=== PATIENT | female | born 1935 | race Caucasian/White ===

== ENCOUNTER 2016-07-02 12:12 | Emergency (ER) | payer OTHER ==
[2016-07-02 13:11] VITALS: BMI 32.1
--- NOTE | 2016-07-02 14:20 | PDOC ---
History of Present Illness - General History Source: Patient Exam Limitations: No Limitations - History of Present Illness Initial Comments: 07/02/16 15:58 The patient is an 80 year old female with history of hypertension, diabetes, atrial fibrillation on Coumadin, CHF, COPD, osteoarthritis s/p right total hip replacement s/p revision 02/03/16 and s/p right total knee replacement 02/03/16 who presents to the ED complaining of nosebleed at 11 am this morning. She notes that the bleed resolved on its own. She states that she stopped her Coumadin for 3 days advised by her doctor before her thyroid test today 06/29/2016. The patient denies fever or chills. She denies nausea, vomiting, or diarrhea. PCP: Dr Ravi Orthopedic Surgeon: Dr. Vieira <Priscila Palmer - Last Filed: 07/02/16 18:50> <Farooq Silver - Last Filed: 07/02/16 19:02> - General Chief Complaint: Lightheaded Stated Complaint: NOSE BLEED Time Seen by Provider: 07/02/16 14:19 Past History <Priscila Palmer - Last Filed: 07/02/16 18:50> - Past Medical History Anemia: Yes Asthma: Yes Cancer: Yes (SKIN / FOREHEAD 2010) Cardiac Disorders: Yes CVA: No COPD: Yes CHF: Yes Dementia: No Diabetes: Yes GI Disorders: No Disorders: No HTN: Yes Hypercholesterolemia: No Liver Disease: No Suicide Attempt (Hx): No Seizures: No Thyroid Disease: No - Surgical History Abdominal Surgery: No Appendectomy: No Cardiac Surgery: No Cholecystectomy: No Lung Surgery: No Neurologic Surgery: No Orthopedic Surgery: Yes ((R) HIP REPLACEMENT 2007) - Immunization History Immunization Up to Date: Yes - Psycho/Social/Smoking Cessation Hx Anxiety: No Suicidal Ideation: No Smoking Status: No Smoking History: Never smoked Have you smoked in the past 12 months: No Number of Cigarettes Smoked Daily: 0 Hx Alcohol Use: Yes (OCCASIONALLY) Drug/Substance Use Hx: No Substance Use Type: None Hx Substance Use Treatment: No <Farooq Silver - Last Filed: 07/02/16 19:02> - Past Medical History Allergies/Adverse Reactions: Allergies Allergy/AdvReac Type Severity Reaction Status Date / Time ciprofloxacin [From Cipro] Allergy Verified 07/02/16 13:11 ciprofloxacin HCl Allergy Verified 07/02/16 13:11 [From Cipro] Home Medications: Ambulatory Orders Acetaminophen [Tylenol] 1,000 mg PO PRN PRN 07/02/16 Amlodipine Besylate [Norvasc -] 5 mg PO DAILY 07/02/16 Arformoterol Tartrate [Brovana] 15 mcg IH BID 07/02/16 Ergocalciferol (Vitamin D2) [Vitamin D2] 50,000 unit PO WEEKLY 07/02/16 Ferrous Sulfate 325 mg PO DAILY 07/02/16 Furosemide [Lasix] 80 mg PO DAILY 07/02/16 Insulin Glargine,Hum.rec.anlog [Lantus Solostar PEN (NF)] 14 units SQ HS Labetalol HCl [Normodyne -] 200 mg PO DAILY 07/02/16 Lisinopril [Prinivil] 20 mg PO DAILY 07/02/16 Omeprazole 40 mg PO DAILY 07/02/16 Potassium Chloride 20 meq PO DAILY 07/02/16 Repaglinide [Prandin] 1 mg PO DAILY 07/02/16 Sertraline HCl [Zoloft] 50 mg PO DAILY 07/02/16 Simvastatin [Zocor] 40 mg PO DAILY 07/02/16 Warfarin Sodium [Coumadin] 4 mg PO DAILY 07/02/16 Review of Systems - Review of Systems Able to Perform ROS?: Yes Comments:: 07/02/16 16:16 GENERAL/CONSTITUTIONAL: No fever or chills. No weakness. HEAD, EYES, EARS, NOSE AND THROAT: No change in vision. No ear pain or discharge. No sore throat. CARDIOVASCULAR: No chest pain or shortness of breath. RESPIRATORY: No cough, wheezing, or hemoptysis. GASTROINTESTINAL: No nausea, vomiting, diarrhea or constipation. GENITOURINARY: No dysuria, frequency, or change in urination. MUSCULOSKELETAL: No joint or muscle swelling or pain. No neck or back pain. SKIN: No rash NEUROLOGIC: No headache, vertigo, loss of consciousness, or change in strength/ sensation. ENDOCRINE: No increased thirst. No abnormal weight change. HEMATOLOGIC/LYMPHATIC: No anemia, easy bleeding, or history of blood clots. ALLERGIC/IMMUNOLOGIC: No hives or skin allergy. <Priscila Palmer - Last Filed: 07/02/16 18:50> *Physical Exam - Vital Signs Last Vital Signs Temp Pulse Resp BP Pulse Ox 98.1 F 62 20 140/61 96 07/02/16 13:07 07/02/16 13:07 07/02/16 13:07 07/02/16 13:07 07/02/16 13:39 - Physical Exam Comments: 07/02/16 16:17 GENERAL: Awake, alert, and fully oriented, in no acute distress HEAD: No signs of trauma EYES: PERRLA, EOMI, sclera anicteric, conjunctiva clear ENT: Auricles normal inspection, hearing grossly normal, nares patent, oropharynx clear without exudates. Moist mucosa NECK: Normal ROM, supple, no lymphadenopathy, JVD, or masses LUNGS: Breath sounds equal, clear to auscultation bilaterally. No wheezes, and no crackles HEART: Regular rate and rhythm, normal S1 and S2, no murmurs, rubs or gallops ABDOMEN: Soft, nontender, normoactive bowel sounds. No guarding, no rebound. No masses EXTREMITIES: Normal range of motion, no edema. No clubbing or cyanosis. No cords, erythema, or tenderness NEUROLOGICAL: Cranial nerves II through XII grossly intact. Normal speech, normal gait SKIN: Warm, Dry, normal turgor, no rashes or lesions noted. <Priscila Palmer - Last Filed: 07/02/16 18:50> - Vital Signs Last Vital Signs Temp Pulse Resp BP Pulse Ox 98.1 F 62 20 140/61 96 07/02/16 13:07 07/02/16 13:07 07/02/16 13:07 07/02/16 13:07 07/02/16 13:39 <Farooq Silver - Last Filed: 07/02/16 19:02> Heart Score/ECG Review #1 07/02/16 17:12 EKG was reviewed by Dr. Silver Impression: atrial fibrillation with slow ventricular response left anterior fascicular luz Septal infarct Vent. rate 59 bpm <Priscila Palmer - Last Filed: 07/02/16 18:50> ED Treatment Course - LABORATORY CBC & Chemistry Diagram: 07/02/16 16:19 07/02/16 16:19 - RADIOLOGY Radiology Studies Ordered: 07/02/16 18:50 EXAM#: TYPE/EXAM: RESULT: [id number] CT/HEAD CT WITHOUT CONTRAST HISTORY PROVIDED : Syncope TECHNIQUE: Sequential axial images were obtained from the base of the skull to the vertex. There is no evidence of acute intracranial hemorrhage, mass lesions or infarctions. There is a mild degree of diffuse cerebral atrophy with sulcal widening and ventricular dilatation. Hypodense changes are noted within the periventricular white matter consistent with chronic, small vessel ischemia. Since prior study of 09/01/2013, there has been no significant change. IMPRESSION: No evidence of acute intracranial pathology. <Priscila Palmer - Last Filed: 07/02/16 18:50> - LABORATORY CBC & Chemistry Diagram: 07/02/16 16:19 07/02/16 16:19 <Farooq Silver - Last Filed: 07/02/16 19:02> Medical Decision Making - Medical Decision Making 07/02/16 16:14 The patient is an 80 year old female with history of hypertension, diabetes, atrial fibrillation on Coumadin, CHF, COPD, osteoarthritis s/p right total hip replacement s/p revision 02/03/16 and s/p right total knee replacement 02/03/16 who presents to the ED complaining of nosebleed at 11 am this morning, she states that the nosebleed resolved on its own. She states that she stopped her Coumadin for 3 days advised by her doctor before her thyroid test today 2016. Will order CXR, head CT, and labs. Patient will be reassessed after the results are back. <Priscila Palmer - Last Filed: 07/02/16 18:50> *DC/Admit/Observation/Transfer - Attestations Scribe Attestion: 07/02/16 15:59 Documentation prepared by ANGELA Penaloza, acting as medical insurance clerk for Farooq Silver MD/. <Priscila Palmer - Last Filed: 07/02/16 18:50> - Discharge Dispostion Admit: No - Attestations Physician Attestion: 07/02/16 14:20 I, Dr. Farooq Silver, attest that this document has been prepared under my direction and personally reviewed by me in its entirety. I further attest, that it accurately reflects all work, treatment, procedures and medical decision -making performed by me. <Farooq Silver - Last Filed: 07/02/16 19:02> Diagnosis at time of Disposition: Epistaxis, Lightheadedness - Discharge Dispostion Disposition: HOME Condition at time of disposition: Good - Referrals Referrals: Arvind Ravi MD [Primary Care Provider] - - Patient Instructions Printed Discharge Instructions: DI for Nosebleed, Anemia Additional Instructions: Di- Luciary this happened to you today. See your doctor later this week. Eat well and stay hydrated. You do have anemia and you lost a little blood today. It was nice taking care of you. Return to us if any problems. Best- Dr. Farooq Silver
[2016-07-02 16:50] LABS: BASOPHIL 0.7 % (0-2.0); MCH 24.5 pg (25.7-33.7); MCHC 32.5 g/dl (32.0-36.0); MEAN CELL VOLUME 75.3 fl (80-96); MEAN PLT VOLUME 7.5 fl (7.5-11.1); NEUTROPHILS 65.9 % (42.8-82.8); PLATELET COUNT 348 K/MM3 (134-434); RDW 18.5 % (11.6-15.6); WHITE BLOOD COUNT 6.8 K/mm3 (4.0-10.0)
[2016-07-02 17:00] LABS: INR 1.63 (0.82-1.09); PROTHROMBIN TIME (PATIENT) 18.1 SEC (9.98-11.88)
[2016-07-02 17:06] VITALS: BP 143/50; PULSE 67; TEMP 98.4
[2016-07-02 17:23] LABS: ALBUMIN 3.5 g/dl (3.4-5.0); BILIRUBIN,TOTAL 0.4 mg/dL (0.2-1.0); CALCIUM 8.6 mg/dL (8.5-10.1); CREATININE 1.5 mg/dL (0.55-1.02); TOT PROT 6.8 g/dl (6.4-8.2)
--- NOTE | 2016-07-03 17:49 | EKG ---
Test Reason : Blood Pressure : / mmHG Vent. Rate : 059 BPM Atrial Rate : 064 BPM P-R Int : 000 ms QRS Dur : 100 ms QT Int : 450 ms P-R-T Axes : 000 -51 022 degrees QTc Int : 445 ms ATRIAL FIBRILLATION WITH SLOW VENTRICULAR RESPONSE LEFT ANTERIOR FASCICULAR BLOCK SEPTAL INFARCT , AGE UNDETERMINED ABNORMAL ECG WHEN COMPARED WITH ECG OF 20-MAR-2016 17:42, NO SIGNIFICANT CHANGE WAS FOUND Confirmed by PEPPER DE LA CRUZ, CLOVER ([id number]) on 07/03/2016 5:48:40 PM Referred By: Confirmed By:CLOVER PABON MD
== END 2016-07-02 20:11 | disposition home or self-care (01) ==
LOC: JER 12:12
DX: R04.0 Epistaxis (principal); I48.91 Unspecified atrial fibrillation; Z79.01 Long term (current) use of anticoagulants; E11.9 Type 2 diabetes mellitus without complications; Z79.4 Long term (current) use of insulin; I50.9 Heart failure, unspecified; I10 Essential (primary) hypertension; J45.909 Unspecified asthma, uncomplicated; D64.9 Anemia, unspecified; M19.90 Unspecified osteoarthritis, unspecified site; Z96.641 Presence of right artificial hip joint; Z96.651 Presence of right artificial knee joint
CPT/HCPCS: 36415; 70450-TC; 71010-TC; 80053; 85025; 85610; 93005; 93010; 99285-25

== ENCOUNTER 2016-10-29 12:27 | Emergency (ER) | payer OTHER ==
[2016-10-29 12:56] VITALS: BMI 30.9
[2016-10-29 13:24] VITALS: TEMP 97.8
--- NOTE | 2016-10-29 13:38 | PDOC ---
History of Present Illness - General History Source: Patient, Old Records Exam Limitations: No Limitations - History of Present Illness Initial Comments: 10/29/16 13:43 The patient is an 80-year-old woman, accompanied by friend, with a significant past medical history of anemia, skin Ca, hypertension, hypercholesterolemia, atrial fibrillation (on 4mg of Coumadin), asthma, congestive heart failure, chronic obstructive pulmonary disease and diabetes mellitus who presents to the emergency department via EMS for complaints of nasal bleeding. She reports that today, at approximately 06:00 AM, she woke up from her sleep and noted that she was bleeding from the left nare. Throughout the morning, she noted some clots but just applied pressure, until she stopped bleeding at approximately 10:00 AM. She reports that this has happened to her several times, including twice this past week. She currently reports feeling a slight band-like headache. She denies fever, chills, cough. She denies lightheadedness, neck pain, nausea, vomiting, diarrhea. Allergies: Ciprofloxacin Pats Surgical History: Right hip replacement. Social History: Never smoked. No EtOH and recreational drug use. Primary Care Physician: Dr. Arvind Pompa <Caitlyn Luna - Last Filed: 10/29/16 13:48> - General History Source: Patient, Old Records Exam Limitations: No Limitations <Kayla Stephens - Last Filed: 10/29/16 16:39> - General Chief Complaint: Nasal Bleeding Stated Complaint: Nasal Bleeding Time Seen by Provider: 10/29/16 13:14 Past History <Caitlyn Luna - Last Filed: 10/29/16 13:48> - Past Medical History Anemia: Yes Asthma: Yes Cancer: Yes (SKIN / FOREHEAD 2010) Cardiac Disorders: Yes CVA: No COPD: Yes CHF: Yes Dementia: No Diabetes: Yes GI Disorders: No Disorders: No HTN: Yes Hypercholesterolemia: No Liver Disease: No Suicide Attempt (Hx): No Seizures: No Thyroid Disease: No - Surgical History Abdominal Surgery: No Appendectomy: No Cardiac Surgery: No Cholecystectomy: No Lung Surgery: No Neurologic Surgery: No Orthopedic Surgery: Yes ((R) HIP REPLACEMENT 2007) - Immunization History Immunization Up to Date: Yes - Psycho/Social/Smoking Cessation Hx Anxiety: No Suicidal Ideation: No Smoking Status: No Smoking History: Never smoked Have you smoked in the past 12 months: No Number of Cigarettes Smoked Daily: 0 Information on smoking cessation initiated: No Hx Alcohol Use: No Drug/Substance Use Hx: No Substance Use Type: None Hx Substance Use Treatment: No <Kayla Stephens - Last Filed: 10/29/16 16:39> - Past Medical History Allergies/Adverse Reactions: Allergies Allergy/AdvReac Type Severity Reaction Status Date / Time ciprofloxacin [From Cipro] Allergy Verified 07/02/16 13:11 ciprofloxacin HCl Allergy Verified 07/02/16 13:11 [From Cipro] Home Medications: Ambulatory Orders Acetaminophen [Tylenol] 1,000 mg PO TID PRN 07/02/16 Amlodipine Besylate [Norvasc -] 5 mg PO DAILY 07/02/16 Arformoterol Tartrate [Brovana] 15 mcg IH BID 07/02/16 Ergocalciferol (Vitamin D2) [Vitamin D2] 50,000 unit PO WEEKLY 07/02/16 Ferrous Sulfate 325 mg PO DAILY 07/02/16 Furosemide [Lasix] 80 mg PO DAILY 07/02/16 Insulin Glargine,Hum.rec.anlog [Lantus Solostar PEN (NF)] 14 units SQ HS Labetalol HCl [Normodyne -] 200 mg PO DAILY 07/02/16 Lisinopril [Prinivil] 20 mg PO DAILY 07/02/16 Omeprazole 40 mg PO DAILY 07/02/16 Potassium Chloride 20 meq PO DAILY 07/02/16 Repaglinide [Prandin] 1 mg PO TID 07/02/16 Sertraline HCl [Zoloft] 50 mg PO DAILY 07/02/16 Simvastatin [Zocor] 40 mg PO DAILY 07/02/16 Warfarin Sodium [Coumadin] 4 mg PO DAILY 07/02/16 Review of Systems - Review of Systems Able to Perform ROS?: Yes Comments:: 10/29/16 13:43 GENERAL/CONSTITUTIONAL: No fever or chills. No weakness. HEAD, EYES, EARS, NOSE AND THROAT: Yes: Epistaxis of the left nare. No change in vision. No ear pain or discharge. No sore throat. CARDIOVASCULAR: No chest pain or shortness of breath. RESPIRATORY: No cough, wheezing, or hemoptysis. GASTROINTESTINAL: No nausea, vomiting, diarrhea or constipation. GENITOURINARY: No dysuria, frequency, or change in urination. MUSCULOSKELETAL: No joint or muscle swelling or pain. No neck or back pain. SKIN: No rash NEUROLOGIC: Yes: Headache. No vertigo, loss of consciousness, or change in strength/sensation. ENDOCRINE: No increased thirst. No abnormal weight change. HEMATOLOGIC/LYMPHATIC: No anemia, easy bleeding, or history of blood clots. ALLERGIC/IMMUNOLOGIC: No hives or skin allergy. <Caitlyn Luna - Last Filed: 10/29/16 13:48> *Physical Exam - Vital Signs Last Vital Signs Temp Pulse Resp BP Pulse Ox 97.8 F 57 L 16 192/74 96 10/29/16 13:15 10/29/16 13:15 10/29/16 13:15 10/29/16 13:15 10/29/16 13:15 - Physical Exam Comments: 10/29/16 13:43 GENERAL: Awake, alert, and fully oriented, in no acute distress HEAD: No signs of trauma EYES: PERRLA, EOMI, sclera anicteric, conjunctiva clear ENT: Auricles normal inspection, hearing grossly. There is scant blood but no active bleeding on the left nare. The mucosa appears friable. Posterior pharynx is clear. NECK: Normal ROM, supple, no lymphadenopathy, JVD, or masses LUNGS: Breath sounds equal, clear to auscultation bilaterally. No wheezes, and no crackles HEART: Regular rate and rhythm, normal S1 and S2, no murmurs, rubs or gallops ABDOMEN: Soft, nontender, normoactive bowel sounds. No guarding, no rebound. No masses EXTREMITIES: Normal range of motion, no edema. No clubbing or cyanosis. No cords, erythema, or tenderness NEUROLOGICAL: Cranial nerves II through XII grossly intact. Normal speech. <Caitlyn Luna - Last Filed: 10/29/16 13:48> - Vital Signs Last Vital Signs Temp Pulse Resp BP Pulse Ox 97.8 F 57 L 16 192/74 96 10/29/16 13:15 10/29/16 13:15 10/29/16 13:15 10/29/16 13:15 10/29/16 13:15 <Kayla Stephens - Last Filed: 10/29/16 16:39> ED Treatment Course - LABORATORY CBC & Chemistry Diagram: 10/29/16 14:00 10/29/16 14:00 <Kayla Stephens - Last Filed: 10/29/16 16:39> Medical Decision Making - Medical Decision Making 10/29/16 14:35 80-year-old female with history of diabetes, COPD, hypertension, anemia, hyperlipidemia, atrial fibrillation on Coumadin who presents the emergency department with bleeding from the right knee air between 6 AM this morning and 10 AM this morning. Differential diagnosis includes but is not limited to: Anterior epistaxis, trauma, dry nasal mucosa, anemia, supratherapeutic INR. Plan: 1. Labs 2. Apply pressure 3. Observe and reevaluate 10/29/16 16:38 Addendum: Labs are reviewed and are noted in the EMR. The INR is 1.5. The patient was observed in the ED and has no further epistaxis. The plan is to discharge the patient home. Follow-up with primary care physician this Saturday as she has a scheduled appointment. Return to the emergency department if symptoms persist, worsen, or new symptoms arise. <Kayla Stephens - Last Filed: 10/29/16 16:39> *DC/Admit/Observation/Transfer - Attestations Scribe Attestion: 10/29/16 13:43 Documentation prepared by Caitlyn Luna, acting as medical records supervisor for Kayla Stephens MD. <Caitlyn Luna - Last Filed: 10/29/16 13:48> - Discharge Dispostion Admit: No - Attestations Physician Attestion: 10/29/16 13:39 I, Dr. Kayla Stephens, attest that the scribes documentation that appears above has been prepared under my direction and personally reviewed by me in its entirety. I confirmed that the note above accurately reflects all work, treatment, procedures, and medical decision-making performed by me. <Kayla Stephens - Last Filed: 10/29/16 16:39> Diagnosis at time of Disposition: Epistaxis - Discharge Dispostion Disposition: HOME Condition at time of disposition: Stable - Referrals Referrals: Arvind Ravi MD [Primary Care Provider] - - Patient Instructions Printed Discharge Instructions: DI for Nosebleed Additional Instructions: Please keep your primary care appointment as scheduled for this Saturday. Return to the emergency department if your symptoms persist, worsen, or new symptoms arise.
[2016-10-29 14:58] LABS: BASOPHIL 0.6 % (0-2.0); MCH 27.2 pg (25.7-33.7); MCHC 32.6 g/dl (32.0-36.0); MEAN CELL VOLUME 83.6 fl (80-96); NEUTROPHILS 66.1 % (42.8-82.8); PLATELET COUNT 173 K/MM3 (134-434); RDW 16.7 % (11.6-15.6); WHITE BLOOD COUNT 5.7 K/mm3 (4.0-10.0)
[2016-10-29 15:32] LABS: CALCIUM 8.5 mg/dL (8.5-10.1); COCKROFT - GAULT 56.865; MAGNESIUM 2.1 mg/dL (1.8-2.4); PHOSPHOROUS 3.2 mg/dL (2.5-4.9)
[2016-10-29 16:06] LABS: INR 1.56 (0.82-1.09); PROTHROMBIN TIME (PATIENT) 17.3 SEC (9.98-11.88)
[2016-10-29 16:09] LABS: ACTIVATED PTT 32.4 SECONDS (26.9-34.4)
[2016-10-29 17:24] VITALS: BP 148/84; PULSE 68
--- NOTE | 2016-11-04 15:43 | EKG ---
Test Reason : Blood Pressure : / mmHG Vent. Rate : 048 BPM Atrial Rate : 340 BPM P-R Int : 000 ms QRS Dur : 096 ms QT Int : 444 ms P-R-T Axes : 000 -46 033 degrees QTc Int : 396 ms ATRIAL FIBRILLATION WITH SLOW VENTRICULAR RESPONSE LEFT ANTERIOR FASCICULAR BLOCK POOR R WAVE PROGRESSION ABNORMAL ECG WHEN COMPARED WITH ECG OF 02-JUL-2016 16:23, QT HAS SHORTENED CLINICAL CORRELATION IS RECOMMENDED Confirmed by ROSIE STOKES MD ([id number]) on 11/04/2016 3:43:20 PM Referred By: Confirmed By:ROSIE STOKES MD
== END 2016-10-29 17:22 | disposition home or self-care (01) ==
LOC: JER 12:27
DX: R04.0 Epistaxis (principal); I48.91 Unspecified atrial fibrillation; Z79.01 Long term (current) use of anticoagulants; I10 Essential (primary) hypertension; I50.9 Heart failure, unspecified; E11.9 Type 2 diabetes mellitus without complications; Z79.4 Long term (current) use of insulin; E78.00 Pure hypercholesterolemia, unspecified
CPT/HCPCS: 36415; 80048; 83735; 84100; 85025; 85610; 85730; 93005; 93010; 99283-25

== ENCOUNTER 2016-11-09 15:34 | Emergency (ER) | payer OTHER ==
[2016-11-09] MEDS ORDERED: OXYMETAZOLINE 0.05% NASAL SOLUTION 15 ML BOTTLE NS ONE (16:16)
[2016-11-09 16:37] VITALS: TEMP 98.6; BMI 35.9
--- NOTE | 2016-11-09 16:54 | PDOC ---
History of Present Illness - General History Source: Patient Exam Limitations: No Limitations - History of Present Illness Initial Comments: 11/09/16 17:09 The patient is a 80 year old female with a significant past medical history of anemia, skin CA, HTN, HLD, Afib (on coumadin), asthma, CHF, COPD, and diabetes who presents to the ED with complaints of nasal bleeding since earlier today. Patient was recently seen in the ED for similar symptoms on 10/29/16. She reports a left sided nasal bleed that started around 2:30 pm earlier today. She reports the blood goes into her mouth. Patient states that she frequently gets nose bleeds, including in the past 2-3 weeks. Patient recently visited her PMD 2 days ago and was prescribed Xarelto. Denies fevers or chills. Denies chest pain or shortness of breath. Denies abdominal pain, nausea, vomiting, and diarrhea. <Rachele Beasley - Last Filed: 11/09/16 17:09> - General History Source: Patient Exam Limitations: No Limitations <Dustin Singleton - Last Filed: 11/09/16 17:25> - General Chief Complaint: Nasal Bleeding Stated Complaint: NOSE BLEED Time Seen by Provider: 11/09/16 16:06 Past History <Rachele Beasley - Last Filed: 11/09/16 17:09> - Past Medical History Anemia: Yes Asthma: Yes Cancer: Yes (SKIN / FOREHEAD 2010) Cardiac Disorders: Yes CVA: No COPD: Yes CHF: Yes Dementia: No Diabetes: Yes GI Disorders: No Disorders: No HTN: Yes Hypercholesterolemia: No Liver Disease: No Suicide Attempt (Hx): No Seizures: No Thyroid Disease: No - Surgical History Abdominal Surgery: No Appendectomy: No Cardiac Surgery: No Cholecystectomy: No Lung Surgery: No Neurologic Surgery: No Orthopedic Surgery: Yes ((R) HIP REPLACEMENT 2007) - Immunization History Immunization Up to Date: Yes - Psycho/Social/Smoking Cessation Hx Anxiety: No Suicidal Ideation: No Smoking Status: No Smoking History: Never smoked Have you smoked in the past 12 months: No Number of Cigarettes Smoked Daily: 0 Information on smoking cessation initiated: No Hx Alcohol Use: Yes (OCCASIONALLY) Drug/Substance Use Hx: No Substance Use Type: None Hx Substance Use Treatment: No <Dustin Singleton - Last Filed: 11/09/16 17:25> - Past Medical History Allergies/Adverse Reactions: Allergies Allergy/AdvReac Type Severity Reaction Status Date / Time ciprofloxacin [From Cipro] Allergy Verified 11/09/16 15:57 ciprofloxacin HCl Allergy Verified 11/09/16 15:57 [From Cipro] Home Medications: Ambulatory Orders Acetaminophen [Tylenol] 1,000 mg PO TID PRN 07/02/16 Amlodipine Besylate [Norvasc -] 5 mg PO DAILY 07/02/16 Arformoterol Tartrate [Brovana] 15 mcg IH BID 07/02/16 Ergocalciferol (Vitamin D2) [Vitamin D2] 50,000 unit PO WEEKLY 07/02/16 Ferrous Sulfate 325 mg PO DAILY 07/02/16 Furosemide [Lasix] 80 mg PO DAILY 07/02/16 Insulin Glargine,Hum.rec.anlog [Lantus Solostar PEN (NF)] 14 units SQ HS Labetalol HCl [Normodyne -] 200 mg PO DAILY 07/02/16 Lisinopril [Prinivil] 20 mg PO DAILY 07/02/16 Omeprazole 40 mg PO DAILY 07/02/16 Potassium Chloride 20 meq PO DAILY 07/02/16 Repaglinide [Prandin] 1 mg PO TID 07/02/16 Sertraline HCl [Zoloft] 50 mg PO DAILY 07/02/16 Simvastatin [Zocor] 40 mg PO DAILY 07/02/16 Warfarin Sodium [Coumadin] 4 mg PO DAILY 07/02/16 Review of Systems - Review of Systems Able to Perform ROS?: Yes Comments:: 11/09/16 17:09 GENERAL/CONSTITUTIONAL: No fever or chills. No weakness. HEAD, EYES, EARS, NOSE AND THROAT: + nasal bleed. No change in vision. No ear pain or discharge. No sore throat. CARDIOVASCULAR: No chest pain or shortness of breath. RESPIRATORY: No cough, wheezing, or hemoptysis. GASTROINTESTINAL: No nausea, vomiting, diarrhea or constipation. GENITOURINARY: No dysuria, frequency, or change in urination. MUSCULOSKELETAL: No joint or muscle swelling or pain. No neck or back pain. SKIN: No rash NEUROLOGIC: No headache, vertigo, loss of consciousness, or change in strength/ sensation. ENDOCRINE: No increased thirst. No abnormal weight change. HEMATOLOGIC/LYMPHATIC: No anemia, easy bleeding, or history of blood clots. ALLERGIC/IMMUNOLOGIC: No hives or skin allergy. <Rachele Beasley - Last Filed: 11/09/16 17:09> *Physical Exam - Vital Signs Last Vital Signs Temp Pulse Resp BP Pulse Ox 98.6 F 70 20 190/72 98 11/09/16 15:54 11/09/16 15:54 11/09/16 15:54 11/09/16 15:54 11/09/16 15:54 - Physical Exam Comments: 11/09/16 17:09 GENERAL: Awake, alert, and fully oriented, in no acute distress HEAD: No signs of trauma EYES: PERRLA, EOMI, sclera anicteric, conjunctiva clear ENT:+ Brisk left nostril interior bleeding. Auricles normal inspection, hearing grossly normal, oropharynx clear without exudates. Moist mucosa NECK: Normal ROM, supple, no lymphadenopathy, JVD, or masses LUNGS: Breath sounds equal, clear to auscultation bilaterally. No wheezes, and no crackles HEART: Regular rate and rhythm, normal S1 and S2, no murmurs, rubs or gallops ABDOMEN: Soft, nontender, normoactive bowel sounds. No guarding, no rebound. No masses EXTREMITIES: Normal range of motion, no edema. No clubbing or cyanosis. No cords, erythema, or tenderness NEUROLOGICAL: Normal speech SKIN: Warm, Dry, normal turgor, no rashes or lesions noted. <Rachele Beasley - Last Filed: 11/09/16 17:09> - Vital Signs Last Vital Signs Temp Pulse Resp BP Pulse Ox 98.6 F 70 20 190/72 98 11/09/16 15:54 11/09/16 15:54 11/09/16 15:54 11/09/16 15:54 11/09/16 15:54 <Dustin Singleton - Last Filed: 11/09/16 17:25> ED Treatment Course - Medications Given in the ED: ED Medications Discontinued Medications Generic Name Dose Route Start Last Admin Trade Name Freq PRN Reason Stop Dose Admin Oxymetazoline HCl 1 spray 11/09/16 16:16 11/09/16 16:59 Afrin - NS 11/09/16 16:17 1 spr ONCE ONE Administration <Rachele Beasley - Last Filed: 11/09/16 17:09> Medical Decision Making - Medical Decision Making 11/09/16 17:01 A portion of this note was written by my scribe, under my supervision. Vital Signs Temp Pulse Resp BP Pulse Ox 98.6 F 70 20 190/72 98 11/09/16 15:54 11/09/16 15:54 11/09/16 15:54 11/09/16 15:54 11/09/16 15:54 80 year old female with past medical history of skin cancer, anemia, HTN, HLD, afib on xarelto (recently switched from coumadin), COPD, CHF, asthma presents with left nostril epistaxis. The patient denies any trauma to the face. Approximately 2:30 pm, started to have epistaxis of the left nostril. Could not control so came to the ED. States pt is on xarelto. Denies cp/sob/ lightheadedness/palpitations. Here in ED, afrin and nasal pressure was applied with successful cessation of epistaxis. Likely anterior epistaxis. Will observe patient and if bleeding controlled, will d/c home. 11/09/16 17:20 Pt has been observed for nearly an hour without bleeding. Will send patient home. Patient feels comfortable being discharged. Return precautions given including worsening bleed. Pt verbalizes understanding and agrees with plan. <Dustin Singleton - Last Filed: 11/09/16 17:25> *DC/Admit/Observation/Transfer - Attestations Scribe Attestion: 11/09/16 17:09 Documentation prepared by Rachele Beasley, acting as biomedical instrument technician for Dustin Singleton MD <Rachele Beasley - Last Filed: 11/09/16 17:09> - Discharge Dispostion Admit: No <Dustin Singleton - Last Filed: 11/09/16 17:25> Diagnosis at time of Disposition: Epistaxis - Discharge Dispostion Disposition: HOME Condition at time of disposition: Improved - Referrals Referrals: Juan Francisco Ferraro MD [Staff Physician] - - Patient Instructions Printed Discharge Instructions: DI for Nosebleed, Nosebleeds (Alternative Therapy) Additional Instructions: If you have a mild nose bleed, please use a small bit of afrin and pinch your nose. If you have profuse bleeding, it is very important that you return to the ER. Please continue to take your xarelto starting tomorrow. Follow up with your doctor.
[2016-11-09 19:04] VITALS: BP 160/89; PULSE 88
== END 2016-11-09 19:04 | disposition home or self-care (01) ==
LOC: JER 15:34
PROC: 0W3Q7ZZ Control Bleeding in Respiratory Tract, Via Natural or Artificial Opening (ICD-10-PCS; principal; 2016-11-09)
DX: R04.0 Epistaxis (principal); I48.91 Unspecified atrial fibrillation; Z79.01 Long term (current) use of anticoagulants; I10 Essential (primary) hypertension; E78.00 Pure hypercholesterolemia, unspecified; J45.909 Unspecified asthma, uncomplicated; J44.9 Chronic obstructive pulmonary disease, unspecified
CPT/HCPCS: 30901-25; 99282-25

== ENCOUNTER 2016-11-20 10:38 | Inpatient (IN) | payer OTHER ==
[2016-11-20 11:05] VITALS: BMI 35.8
[2016-11-20 11:48] LABS: BASOPHIL 0.4 % (0-2.0); EOSINOPHIL 0.1 % (0-4.5); MCH 27.3 pg (25.7-33.7); MCHC 32.5 g/dl (32.0-36.0); MEAN CELL VOLUME 83.8 fl (80-96); NEUTROPHILS 79.6 % (42.8-82.8); PLATELET COUNT 194 K/MM3 (134-434); RDW 15.9 % (11.6-15.6); WHITE BLOOD COUNT 9.3 K/mm3 (4.0-10.0)
[2016-11-20 12:06] LABS: ALBUMIN 3.3 g/dl (3.4-5.0); ANION GAP 12 (8-16); BILIRUBIN,TOTAL 0.7 mg/dL (0.2-1.0); CALCIUM 8.1 mg/dL (8.5-10.1); CO2 26 mmol/L (21-32); CREATININE 1.5 mg/dL (0.55-1.02); GLUCOSE,RANDOM 167 mg/dL (74-106); SGOT/AST 25 U/L (15-37); SGPT/ALT 26 U/L (12-78); TOT PROT 6.5 g/dl (6.4-8.2)
[2016-11-20 12:09] LABS: ALK PHOS 96 U/L (45-117); TROPONIN I 0.07 ng/ml (0.00-0.05)
--- NOTE | 2016-11-20 12:11 | PDOC ---
History of Present Illness - History of Present Illness Initial Comments: 11/20/16 12:20 Patient is an 80 year old female with significant medical hx of AFib, DM, HTN, CHF, COPD, osteoarthritis, asthma and GERD who is presenting to the ED with epistaxis from left nostril since 6 am today. She reports heavy bleeding and passing clots. The patient states shes had about six episodes of epistaxis over the past four weeks but has not experienced frequent nose bleeds prior to then. Patients nose bleed didnt stop until she arrived to the ED around 11 AM. She also complains of feeling lightheaded, weak, and diaphoretic. The patient notes she hasnt eaten today and feels that she needs to eat. Patient also complains of pain and burning with urination for the past week but denies any hematuria or discharge. The patient saw an ENT specialist yesterday and had her left nostril cauterized. Patient has been seen several times in the ED over the past month for epistaxis. She has been on 2mg of coumadin which has been stopped recently. Denies headache or LOC. 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/03/16), Right total knee replacement (02/03/16) <Gillian Mcneal - Last Filed: 11/20/16 12:20> - General History Source: Patient, Old Records Exam Limitations: No Limitations <Kayla Stephens - Last Filed: 11/20/16 14:20> - General Stated Complaint: NOSE BLEED Time Seen by Provider: 11/20/16 11:14 Past History <Gillian Mcneal - Last Filed: 11/20/16 12:20> - Past Medical History Anemia: Yes Asthma: Yes Cancer: Yes (SKIN / FOREHEAD 2010) Cardiac Disorders: Yes CVA: No COPD: Yes CHF: Yes Dementia: No Diabetes: Yes GI Disorders: No Disorders: No HTN: Yes Hypercholesterolemia: No Liver Disease: No Suicide Attempt (Hx): No Seizures: No Thyroid Disease: No - Surgical History Abdominal Surgery: No Appendectomy: No Cardiac Surgery: No Cholecystectomy: No Lung Surgery: No Neurologic Surgery: No Orthopedic Surgery: Yes ((R) HIP REPLACEMENT 2007) - Immunization History Immunization Up to Date: Yes - Psycho/Social/Smoking Cessation Hx Anxiety: No Suicidal Ideation: No Smoking Status: No Smoking History: Former smoker Have you smoked in the past 12 months: No Number of Cigarettes Smoked Daily: 0 If you are a former smoker, when did you quit?: "when I was very [place]" Information on smoking cessation initiated: No Hx Alcohol Use: No Drug/Substance Use Hx: No Substance Use Type: None Hx Substance Use Treatment: No <Kayla Stephens - Last Filed: 11/20/16 14:20> - Past Medical History Allergies/Adverse Reactions: Allergies Allergy/AdvReac Type Severity Reaction Status Date / Time ciprofloxacin [From Cipro] Allergy Verified 11/20/16 11:06 ciprofloxacin HCl Allergy Verified 11/20/16 11:06 [From Cipro] Home Medications: Ambulatory Orders Acetaminophen [Tylenol] 1,000 mg PO TID PRN 07/02/16 Amlodipine Besylate [Norvasc -] 5 mg PO DAILY 07/02/16 Arformoterol Tartrate [Brovana] 15 mcg IH BID 07/02/16 Ergocalciferol (Vitamin D2) [Vitamin D2] 50,000 unit PO WEEKLY 07/02/16 Ferrous Sulfate 325 mg PO DAILY 07/02/16 Furosemide [Lasix] 80 mg PO DAILY 07/02/16 Insulin Glargine,Hum.rec.anlog [Lantus Solostar PEN (NF)] 14 units SQ HS Labetalol HCl [Normodyne -] 200 mg PO DAILY 07/02/16 Lisinopril [Prinivil] 20 mg PO DAILY 07/02/16 Omeprazole 40 mg PO DAILY 07/02/16 Potassium Chloride 20 meq PO DAILY 07/02/16 Repaglinide [Prandin] 1 mg PO TID 07/02/16 Sertraline HCl [Zoloft] 50 mg PO DAILY 07/02/16 Simvastatin [Zocor] 40 mg PO DAILY 07/02/16 Review of Systems - Review of Systems Comments:: 11/20/16 12:21 GENERAL/CONSTITUTIONAL: Weakness, diaphoresis. No fever or chills. HEAD, EYES, EARS, NOSE AND THROAT: Epistaxis. No change in vision. No ear pain or discharge. No sore throat. CARDIOVASCULAR: Lightheadedness. No chest pain or shortness of breath. RESPIRATORY: No cough, wheezing, or hemoptysis. GASTROINTESTINAL: No nausea, vomiting, diarrhea or constipation. GENITOURINARY: Dysuria. No frequency, or change in urination. MUSCULOSKELETAL: No joint or muscle swelling or pain. No neck or back pain. ENDOCRINE: No increased thirst. No abnormal weight change. SKIN: No rash NEUROLOGIC: No headache, vertigo, loss of consciousness, or change in strength/ sensation. <Gillian Mcneal - Last Filed: 11/20/16 12:20> *Physical Exam - Vital Signs Last Vital Signs Temp Pulse Resp BP Pulse Ox 98.0 F 91 H 20 137/66 98 11/20/16 10:55 11/20/16 10:55 11/20/16 10:55 11/20/16 10:55 11/20/16 11:19 - Physical Exam Comments: 11/20/16 12:23 GENERAL: Awake, alert, and fully oriented, in no acute distress. Mildly diaphoretic. HEAD: No signs of trauma EYES: PERRLA, EOMI, sclera anicteric, conjunctiva clear ENT: Auricles normal inspection, hearing grossly normal. Fresh bleeding from left nare, could not identify bleeding site. Oropharynx clear without exudates. Moist mucosa NECK: Normal ROM, supple, no lymphadenopathy, JVD, or masses LUNGS: Breath sounds equal, clear to auscultation bilaterally. No wheezes, and no crackles HEART: Regular rate and rhythm, normal S1 and S2, no murmurs, rubs or gallops ABDOMEN: Soft, nontender, normoactive bowel sounds. No guarding, no rebound. No masses EXTREMITIES: +1 bipedal edema. Normal range of motion. No clubbing or cyanosis. No cords, erythema, or tenderness NEUROLOGICAL: Cranial nerves II through XII grossly intact. Normal speech, normal gait SKIN: Warm, Dry, normal turgor, no rashes or lesions noted. HEMATOLOGIC/LYMPHATIC: No anemia, easy bleeding, or history of blood clots. ALLERGIC/IMMUNOLOGIC: No hives or skin allergy. <Gillian Mcneal - Last Filed: 11/20/16 12:20> - Vital Signs Last Vital Signs Temp Pulse Resp BP Pulse Ox 98.0 F 91 H 20 137/66 98 11/20/16 10:55 11/20/16 10:55 11/20/16 10:55 11/20/16 10:55 11/20/16 11:19 <Kayla Stephens - Last Filed: 11/20/16 14:20> ED Treatment Course - LABORATORY CBC & Chemistry Diagram: 11/20/16 11:30 11/20/16 11:30 - ADDITIONAL ORDERS Additional order review: Laboratory Results 11/20/16 11:30 Sodium 137 Potassium 4.0 Chloride 99 Carbon Dioxide 26 Anion Gap 12 BUN 34 H Creatinine 1.5 H D Creat Clearance w eGFR 33.33 Random Glucose 167 H D Calcium 8.1 L Total Bilirubin 0.7 D AST 25 D ALT 26 D Alkaline Phosphatase 96 D Creatine Kinase 65 Troponin I 0.07 H Total Protein 6.5 Albumin 3.3 L 11/20/16 11:30 RBC 3.40 L MCV 83.8 MCHC 32.5 RDW 15.9 H MPV 9.0 Neutrophils % 79.6 D Lymphocytes % 7.0 L D Monocytes % 12.9 H Eosinophils % 0.1 D Basophils % 0.4 <Gillian Mcneal - Last Filed: 11/20/16 12:20> - LABORATORY CBC & Chemistry Diagram: 11/20/16 11:30 11/20/16 11:30 - ADDITIONAL ORDERS Additional order review: 11/20/16 11:30 RBC 3.40 L MCV 83.8 MCHC 32.5 RDW 15.9 H MPV 9.0 Neutrophils % 79.6 D Lymphocytes % 7.0 L D Monocytes % 12.9 H Eosinophils % 0.1 D Basophils % 0.4 <Kayla Stephens - Last Filed: 11/20/16 14:20> Medical Decision Making - Medical Decision Making 11/20/16 12:07 1-year-old female with history of hypertension, atrial fibrillationon anticoagulation, skin cancer and multiple episodes of epistaxis over the past month presents to the emergency Department with complaints of bleeding from her left naris since early this morning; she also complains of dysuria. Differential diagnosis includes but is not limited to: Anterior epistaxis, supratherapeutic INR, anemia, urinary tract infection, ACS, toxic/metabolic derangement. Plan: 1. Labs with coagulation profile 2. Urine analysis 3. EKGshows atrial fibrillation at a rate of 70 bpm with no acute ST segment changes 4. Chest x-ray 5. Anterior packing with rapid Rhino Rocket 6. Observe and reevaluate 11/20/16 14:19 Addendum: Labs were reviewed and are noted in the EMR. The urine shows 99 white blood cells and red blood cells as well as leukoesterase. The patient has been ordered a urine culture and ceftriaxone. Of note, her troponin is elevated and she has had intermittent episodes of chest pain over the past 2 weeks. Will admit to telemetry observation for serial cardiac markers, ceftriaxone, and gentle IV fluid hydration. The patient has had minimal bleeding from her left naris after the anterior packing. <Kayla Stephens - Last Filed: 11/20/16 14:20> *DC/Admit/Observation/Transfer - Attestations Scribe Attestion: 11/20/16 12:24 Documentation prepared by Gillian Mcneal, acting as medical secretary teacher for Kayla Stephens MD. <Gillian Mcneal - Last Filed: 11/20/16 12:20> - Discharge Dispostion Admit: Yes - Attestations Physician Attestion: 11/20/16 12:09 I, Dr. Kayla Stephens, attest that the scribes documentation that appears above has been prepared under my direction and personally reviewed by me in its entirety. I confirmed that the note above accurately reflects all work, treatment, procedures, and medical decision-making performed by me. <Kayla Stephens - Last Filed: 11/20/16 14:20> Diagnosis at time of Disposition: Epistaxis, Atrial fibrillation, Elevated troponin level - Discharge Dispostion Condition at time of disposition: Stable - Referrals Referrals: Arvind Ravi MD [Primary Care Provider] -
[2016-11-20 12:24] LABS: INR 2.55 (0.82-1.09); PROTHROMBIN TIME (PATIENT) 28.6 SEC (9.98-11.88)
[2016-11-20 13:29] LABS: URINE APPEARANCE SLCLOUDY; URINE BILIRUBIN NEGATIVE (NEGATIVE); URINE COLOR LTYELLOW; URINE GLUCOSE (UA) NEGATIVE (NEGATIVE); URINE KETONE NEGATIVE (NEGATIVE); URINE NITRITE NEGATIVE (NEGATIVE); URINE UROBILINOGEN NEGATIVE E.U./dl (0.2-1.0)
[2016-11-20 13:30] LABS: URINE BLOOD 3+ (NEGATIVE); URINE LEUK ESTERASE 3+ (NEGATIVE); URINE PROTEIN 1+ (NEGATIVE)
[2016-11-20 13:32] LABS: GRANULAR CASTS 2 /lpf; URINE MUCUS RARE; URINE RBC 22 /hpf (0-3); URINE WBC 99 /hpf (3-5)
--- NOTE | 2016-11-20 14:32 | HP ---
CHIEF COMPLAINT: "I feel weak and my nose wouldn't stop bleeding." PCP: Daisy HISTORY OF PRESENT ILLNESS: This is a 80yo woman with PMH CRF, CHF, COPD, anemia , afib on Xarelto, HTN and chronic anemia who presents today with recurrance of epistaxis. She states she started having nosebleeds starting 2 months ago. She was evaluated by her PMD who packed the nare. She had another episode approximately 2 weeks ago for which her PMD d/c'd Coumadin and started Xarelto. She had another episode 11/18 and was seen by ENT Ronan who cauterized the source of bleeding. She reports generalized weakness over 2 days. She denies dizziness, lightheadedness, SOB, rectal bleeding or hematemesis. Patient also with point tenderness to left 11th rib at the midclavicular line. ER course was notable for: (1) epistaxis requiring packing (2) pyuria (3) Chest pain with diaphoresis and troponin 0.07 Recent Travel: denies PAST MEDICAL HISTORY: see HPI PAST SURGICAL HISTORY: R hip ORIF Social History: Smoking: quit 50-60 years ago Alcohol: denies Drugs: denies Family History: Allergies ciprofloxacin [From Cipro] Allergy (Verified 11/20/16 11:06) ciprofloxacin HCl [From Cipro] Allergy (Verified 11/20/16 11:06) HOME MEDICATIONS: Home Medications 3 Medication Instructions Recorded Acetaminophen [Tylenol] 1,000 mg PO TID PRN 07/02/16 Amlodipine Besylate [Norvasc -] 5 mg PO DAILY 07/02/16 Arformoterol Tartrate [Brovana] 15 mcg IH BID 07/02/16 Ergocalciferol (Vitamin D2) 50,000 unit PO WEEKLY 07/02/16 [Vitamin D2] Ferrous Sulfate 325 mg PO DAILY 07/02/16 Furosemide [Lasix] 80 mg PO DAILY 07/02/16 Insulin Glargine,Hum.rec.anlog 14 units SQ HS 07/02/16 [Lantus Solostar PEN (NF)] Labetalol HCl [Normodyne -] 200 mg PO DAILY 07/02/16 Lisinopril [Prinivil] 20 mg PO DAILY 07/02/16 Omeprazole 40 mg PO DAILY 07/02/16 Potassium Chloride 20 meq PO DAILY 07/02/16 Repaglinide [Prandin] 1 mg PO TID 07/02/16 Sertraline HCl [Zoloft] 50 mg PO DAILY 07/02/16 Simvastatin [Zocor] 40 mg PO DAILY 07/02/16 REVIEW OF SYSTEMS CONSTITUTIONAL: Present- generalized weakness Absent: fever, chills, diaphoresis, malaise, loss of appetite, weight change HEENT: Present- Epistaxis Absent: rhinorrhea, nasal congestion, throat pain, throat swelling, difficulty swallowing, mouth swelling, ear pain, eye pain, visual changes CARDIOVASCULAR: Present- chest pain Absent: syncope, palpitations, irregular heart rate, lightheadedness, peripheral edema RESPIRATORY: Absent: cough, shortness of breath, dyspnea with exertion, orthopnea, wheezing, stridor, hemoptysis GASTROINTESTINAL: Absent: abdominal pain, abdominal distension, nausea, vomiting, diarrhea, constipation, melena, hematochezia GENITOURINARY: Present- dysuria, frequency Absent: urgency, hesitancy, hematuria, flank pain, genital pain MUSCULOSKELETAL: Absent: myalgia, arthralgia, joint swelling, back pain, neck pain SKIN: Absent: rash, itching, pallor HEMATOLOGIC/IMMUNOLOGIC: Present- easy bleeding Absent: easy bruising, lymphadenopathy, frequent infections ENDOCRINE: Absent: unexplained weight gain, unexplained weight loss, heat intolerance, cold intolerance NEUROLOGIC: Absent: headache, focal weakness or paresthesias, dizziness, unsteady gait, seizure, mental status changes, bladder or bowel incontinence PSYCHIATRIC: Absent: anxiety, depression, suicidal or homicidal ideation, hallucinations. PHYSICAL EXAMINATION Vital Signs - 24 hr 3 11/20/16 11/20/16 10:55 11:19 Temperature 98.0 F Pulse Rate 91 H Respiratory 20 Rate Blood Pressure 137/66 O2 Sat by Pulse 96 98 Oximetry (%) GENERAL: Awake, alert, and fully oriented, in no acute distress. HEAD: Normal with no signs of trauma. EYES: Pupils equal, round and reactive to light, extraocular movements intact, sclera anicteric, conjunctiva clear. No lid lag. EARS, NOSE, THROAT: Ears normal, nares patent, oropharynx clear without exudates. Moist mucous membranes. NECK: Normal range of motion, supple without lymphadenopathy, or masses. B/L JVD present. LUNGS: Breath sounds equal, clear to auscultation bilaterally. No wheezes, and no crackles. No accessory muscle use. HEART: Irregular rate and rhythm, normal S1 and S2 with 4/6 holosystolic murmur across precordium into left carotid, rub or gallop. ABDOMEN: Soft, nontender, not distended, normoactive bowel sounds, no guarding, no rebound, no masses. No hepatomegaly or splenomegaly. MUSCULOSKELETAL: Normal range of motion at all joints. No bony deformities. Point tenderness to left 11th rib at midclavicular line. No CVA tenderness. UPPER EXTREMITIES: 2+ pulses, warm, well-perfused. No cyanosis. No clubbing. No peripheral edema. LOWER EXTREMITIES: 2+ pulses, warm, well-perfused. No calf tenderness. No peripheral edema. Petichiae noted to BLE. NEUROLOGICAL: Cranial nerves II-XII intact. Normal speech. Normal gait. PSYCHIATRIC: Cooperative. Good eye contact. Appropriate mood and affect. SKIN: Warm, dry, normal turgor, no rashes or lesions noted, normal capillary refill. Petichiae noted to BLE. Laboratory Results - last 24 hr 3 11/20/16 11/20/16 11/20/16 11:30 11:30 11:30 WBC 9.3 D RBC 3.40 L Hgb 9.3 L Hct 28.5 L MCV 83.8 MCHC 32.5 RDW 15.9 H Plt Count 194 MPV 9.0 Neutrophils % 79.6 D Lymphocytes % 7.0 L D Monocytes % 12.9 H Eosinophils % 0.1 D Basophils % 0.4 INR 2.55 H D Sodium 137 Potassium 4.0 Chloride 99 Carbon Dioxide 26 Anion Gap 12 BUN 34 H Creatinine 1.5 H D Creat Clearance w eGFR 33.33 Random Glucose 167 H D Calcium 8.1 L Total Bilirubin 0.7 D AST 25 D ALT 26 D Alkaline Phosphatase 96 D Creatine Kinase 65 Troponin I 0.07 H Total Protein 6.5 Albumin 3.3 L Urine Color Urine Appearance Urine pH Urine Protein Urine Glucose (UA) Urine Ketones Urine Blood Urine Nitrite Urine Bilirubin Urine Urobilinogen Ur Leukocyte Esterase Urine RBC Urine WBC Ur Epithelial Cells Granular Casts Urine Mucus 3 11/20/16 13:15 WBC RBC Hgb Hct MCV MCHC RDW Plt Count MPV Neutrophils % Lymphocytes % Monocytes % Eosinophils % Basophils % INR Sodium Potassium Chloride Carbon Dioxide Anion Gap BUN Creatinine Creat Clearance w eGFR Random Glucose Calcium Total Bilirubin AST ALT Alkaline Phosphatase Creatine Kinase Troponin I Total Protein Albumin Urine Color Ltyellow Urine Appearance Slcloudy Urine pH 5.0 Urine Protein 1+ H Urine Glucose (UA) Negative Urine Ketones Negative Urine Blood 3+ H Urine Nitrite Negative Urine Bilirubin Negative Urine Urobilinogen Negative Ur Leukocyte Esterase 3+ H Urine RBC 22 Urine WBC 99 Ur Epithelial Cells Rare Granular Casts 2 Urine Mucus Rare ASSESSMENT/PLAN: A: 80yo woman with epistaxis on AC. ?taking NOAC with warfarin as she filled warfarin Rx 5 days ago but was stopped 2 weeks prior. Chest pain- will r/o MD. Also with UTI. P: 1. Chest pain ACS vs MS - trend troponins - Labetalol 200mg daily - AM Lipid - hold ASA 2/2 epistaxis - tele - Cards consult - Lipitor 40mg 2. Epistaxis - Rhino Rocket in place - monitor for bleeding - daily CBC - tranfuse hgb<7.0 - ENT if bleeding continues - daily INR - hold warfarin 3. afib - hold warfarin - hold Xarelto 2/2 bleeding - daily INR - tele 4. Anemia - trend CBC - tranfuse hgb<7.0 - FeSO4 supplements 5. UTI - urine cx pending - trend fever curve - Rocephin 1g daily - Tylenol prn 6. DM - hold prandin - FS qACHS - ISS - Levemir 14units 7. HTN - Lisinopril 20mg - Norvasc 5mg - Labetalol 200mg - trend Cr 8. CHF - BNP - Lasix 80mg daily - KDur - Lisinopril 20mg - strict I&O - daily weights 9. HLD - am Lipid panel - Zocor 40mg 10. COPD - well controlled - arfomoterol 11. F/E/N - diabetic Low sodium diet - KDur - replete prn 12. PPX - hold AC 2/2 bleeding - OOB - PT Dispo- pt requires observation of her acute medical condition Visit type - Emergency Visit Emergency Visit: Yes ED Registration Date: 11/20/16 Care time: The patient presented to the Emergency Department on the above date and was hospitalized for further evaluation of their emergent condition. - New Patient This patient is new to me today: Yes Date on this admission: 11/20/16 - Critical Care Critical Care patient: No
[2016-11-20] MEDS ORDERED: CEFTRIAXONE 1,000 MG in DEXTROSE 5%-WATER - 50 ML IVPB ONE (14:36)
[2016-11-20] MEDS ORDERED: CEFTRIAXONE 50 ML ONE (14:39)
[2016-11-20] MEDS ORDERED: ACETAMINOPHEN 325 MG TABLET (FP) PO ONE (15:08)
[2016-11-20] MEDS ORDERED: SODIUM CHLORIDE 1,000 ML IV STA (15:08)
[2016-11-20] MEDS ORDERED: FUROSEMIDE 40 MG TABLET (FP) PO ONE (15:14)
[2016-11-20] MEDS ORDERED: ACETAMINOPHEN 650 MG/20.3 ML ORAL SOLUTION (CUPS) ONE (15:16)
[2016-11-20] MEDS ORDERED: FUROSEMIDE 40 MG TABLET (FP) ONE (16:37)
--- NOTE | 2016-11-20 17:31 | CON.CARD ---
Consult Consult Specialty:: Cardiology Referred by:: Hospitalist (Patient of Dr. Ravi) Reason for Consultation:: Cardiac evaluation - History of Present Illness Chief Complaint: Epistaxis History of Present Illness: Patient is an 80 year old female well known to me with underlying history of CAD (non-obstructive), angina pectoris, diastolic LV dysfunction with history of congestive heart failure, mitral valve disease with mitral valve regurgitations, aortic valve disease with mild aortic valve stenosis, tricuspid valve disease with tricuspid valve regurgitation and pulmonary hypertension, persistent atrial fibrillation on Coumadin now changed to Xarelto 10 days ago by PMD, HTN/HCVD, type 2 diabetes mellitus, hypercholesterolemia and COPD who presents with epistaxis. Her nose was packed in the ER and now admitted to telemetry floor. She complains of mild chest discomfort. She denies palpitations. She denies fever or chills. She denies paroxysmal nocturnal dyspnea or orthopnea. She denies headache or lightheadedness. Cardiology consultation was called for further evaluation. - History Source History Provided By: Patient, Medical Record Limitations to Obtaining History: No Limitations - Past Medical History Cardio/Vascular: Yes: AFIB, Aortic Stenosis, CAD, CHF, HTN, Hyperlipdemia, Mitral Insufficiency, Murmur, Pulmonary Hypertension Pulmonary: Yes: COPD Endocrine: Yes: Diabetes Mellitus - Alcohol/Substance Use Hx Alcohol Use: No History of Substance Use: reports: None - Smoking History Smoking history: Former smoker Have you smoked in the past 12 months: No Aproximately how many cigarettes per day: 0 If you are a former smoker, when did you quit?: "when I was very [place]" Home Medications - Allergies Allergies/Adverse Reactions: Allergies Allergy/AdvReac Type Severity Reaction Status Date / Time ciprofloxacin [From Cipro] Allergy Verified 11/20/16 11:06 ciprofloxacin HCl Allergy Verified 11/20/16 11:06 [From Cipro] - Home Medications Home Medications: Ambulatory Orders Acetaminophen [Tylenol] 1,000 mg PO TID PRN 07/02/16 Amlodipine Besylate [Norvasc -] 5 mg PO DAILY 07/02/16 Arformoterol Tartrate [Brovana] 15 mcg IH BID 07/02/16 Ergocalciferol (Vitamin D2) [Vitamin D2] 50,000 unit PO WEEKLY 07/02/16 Ferrous Sulfate 325 mg PO DAILY 07/02/16 Furosemide [Lasix] 80 mg PO DAILY 07/02/16 Insulin Glargine,Hum.rec.anlog [Lantus Solostar PEN (NF)] 14 units SQ HS Labetalol HCl [Normodyne -] 200 mg PO DAILY 07/02/16 Lisinopril [Prinivil] 20 mg PO DAILY 07/02/16 Omeprazole 40 mg PO DAILY 07/02/16 Potassium Chloride 20 meq PO DAILY 07/02/16 Repaglinide [Prandin] 1 mg PO TID 07/02/16 Sertraline HCl [Zoloft] 50 mg PO DAILY 07/02/16 Simvastatin [Zocor] 40 mg PO DAILY 07/02/16 Rivaroxaban [Xarelto -] 15 mg PO DAILY 11/20/16 Review of Systems - Review of Systems Constitutional: denies: Chills, Fever HENT: reports: Epistaxis Cardiovascular: reports: Chest Pain. denies: Palpitations, Shortness of Breath Respiratory: denies: Cough, Hemoptysis, Orthopnea, PND, SOB, SOB on Exertion Gastrointestinal: denies: Abdominal Pain, Constipation, Diarrhea, Melena, Nausea , Rectal Bleeding, Vomiting Neurological: denies: Dizziness, Headache, Seizure, Syncope, Weakness Vital Signs: Vital Signs Temperature 99.5 F 11/20/16 15:54 Pulse Rate 82 11/20/16 15:54 Respiratory Rate 20 11/20/16 15:54 Blood Pressure 164/53 11/20/16 15:54 O2 Sat by Pulse Oximetry (%) 93 L 11/20/16 15:54 HENT: Yes: Epistaxis, Other (Nasal packing) Neck: Yes: Supple Respiratory: Yes: Diminished Gastrointestinal: Yes: Normal Bowel Sounds, Soft. No: Tenderness Cardiovascular: Yes: Pulse Irregular JVD: No Carotid Bruit: No PMI: Non-Displaced Heart Sounds: Yes: S1, S2 Murmur: Yes: Systolic Murmur, Grade 1 Edema: Yes Edema: LLE: Trace, RLE: Trace - Other Data Labs, Other Data: INR, PTT INR 2.55 (0.82-1.09) H D 11/20/16 11:30 Laboratory Results - last 24 hr 11/20/16 11/20/16 11/20/16 11:30 11:30 11:30 WBC 9.3 D RBC 3.40 L Hgb 9.3 L Hct 28.5 L MCV 83.8 MCHC 32.5 RDW 15.9 H Plt Count 194 MPV 9.0 Neutrophils % 79.6 D Lymphocytes % 7.0 L D Monocytes % 12.9 H Eosinophils % 0.1 D Basophils % 0.4 INR 2.55 H D Sodium 137 Potassium 4.0 Chloride 99 Carbon Dioxide 26 Anion Gap 12 BUN 34 H Creatinine 1.5 H D Creat Clearance w eGFR 33.33 POC Glucometer Random Glucose 167 H D Lactic Acid Calcium 8.1 L Total Bilirubin 0.7 D AST 25 D ALT 26 D Alkaline Phosphatase 96 D Creatine Kinase 65 Troponin I 0.07 H Total Protein 6.5 Albumin 3.3 L Urine Color Urine Appearance Urine pH Ur Specific [place] Urine Protein Urine Glucose (UA) Urine Ketones Urine Blood Urine Nitrite Urine Bilirubin Urine Urobilinogen Ur Leukocyte Esterase Urine RBC Urine WBC Ur Epithelial Cells Granular Casts Urine Mucus 11/20/16 11/20/16 11/20/16 13:15 15:30 17:32 WBC RBC Hgb Hct MCV MCHC RDW Plt Count MPV Neutrophils % Lymphocytes % Monocytes % Eosinophils % Basophils % INR Sodium Potassium Chloride Carbon Dioxide Anion Gap BUN Creatinine Creat Clearance w eGFR POC Glucometer Random Glucose Lactic Acid 1.1 Calcium Total Bilirubin AST ALT Alkaline Phosphatase Creatine Kinase Troponin I 0.06 H Total Protein Albumin Urine Color Ltyellow Urine Appearance Slcloudy Urine pH 5.0 Ur Specific [place] <= 1.005 Urine Protein 1+ H Urine Glucose (UA) Negative Urine Ketones Negative Urine Blood 3+ H Urine Nitrite Negative Urine Bilirubin Negative Urine Urobilinogen Negative Ur Leukocyte Esterase 3+ H Urine RBC 22 Urine WBC 99 Ur Epithelial Cells Rare Granular Casts 2 Urine Mucus Rare Atrial fibrillation Imaging - Results EKG: Report Reviewed Problem List - Problems (1) Atrial fibrillation Code(s): I48.91 - UNSPECIFIED ATRIAL FIBRILLATION Qualifiers: Atrial fibrillation type: persistent Qualified Code(s): I48.1 - Persistent atrial fibrillation (2) Elevated troponin Code(s): R74.8 - ABNORMAL LEVELS OF OTHER SERUM ENZYMES (3) Epistaxis Code(s): R04.0 - EPISTAXIS (4) COPD (chronic obstructive pulmonary disease) Code(s): J44.9 - CHRONIC OBSTRUCTIVE PULMONARY DISEASE, UNSPECIFIED Qualifiers : COPD type: unspecified COPD Qualified Code(s): J44.9 - Chronic obstructive pulmonary disease, unspecified (5) HTN (hypertension) Code(s): I10 - ESSENTIAL (PRIMARY) HYPERTENSION Qualifiers: Hypertension type: essential hypertension Qualified Code(s): I10 - Essential (primary) hypertension (6) Hypercholesterolemia Code(s): E78.00 - PURE HYPERCHOLESTEROLEMIA, UNSPECIFIED (7) Mitral valve regurgitation Code(s): I34.0 - NONRHEUMATIC MITRAL (VALVE) INSUFFICIENCY Qualifiers: Cardiac valve disease etiology: nonrheumatic Qualified Code(s): I34.0 - Nonrheumatic mitral (valve) insufficiency (8) Aortic valve stenosis Code(s): I35.0 - NONRHEUMATIC AORTIC (VALVE) STENOSIS Qualifiers: Cardiac valve disease etiology: nonrheumatic Qualified Code(s): I35.0 - Nonrheumatic aortic (valve) stenosis (9) Tricuspid valve regurgitation Code(s): I07.1 - RHEUMATIC TRICUSPID INSUFFICIENCY Qualifiers: Cardiac valve disease etiology: nonrheumatic Qualified Code(s): I36.1 - Nonrheumatic tricuspid (valve) insufficiency (10) Diastolic dysfunction Code(s): I51.9 - HEART DISEASE, UNSPECIFIED (11) Diabetes mellitus Code(s): E11.9 - TYPE 2 DIABETES MELLITUS WITHOUT COMPLICATIONS Qualifiers: Diabetes mellitus type: type 2 Diabetes mellitus complication status: without complication Diabetes mellitus skilled nursing insulin use: without skilled nursing use Qualified Code(s): E11.9 - Type 2 diabetes mellitus without complications Assessment/Plan 1. Epistaxis S/P nasal packing 2. COPD 3. Diastolic LV dysfunction 4. Non-obstructive CAD, angina pectoris - demand ischemia 5. Mitral valve regurgitation 6. Aortic valve stenosis 7. Tricuspid valve regurgitation 8. Pulmonary HTN 9. Persistent atrial fibrillation [id number] 10. HTN/HCVD 11. Type 2 diabetes mellitus 12. Hypercholesterolemia 13. CKD PLAN: 1. ENT evaluation 2. Continue Labetalol, Amlodipine and Prinivil 3. Continue Atorvastatin 4. Xarelto is being held. To decide when to start NOAC. 5. Continue diuretics Further plans are to follow Armen Stewart MD
[2016-11-20] MEDS ORDERED: amLODIPine BESYLATE 5 MG TABLET (FP) PO ONE (17:45)
[2016-11-20] MEDS: ATORVASTATIN CA 20 MG TABLET (FP) PO SCH (21:00)
[2016-11-20] MEDS: ACETAMINOPHEN 325 MG TABLET (FP) PO PRN (21:01)
[2016-11-20] MEDS: INSULIN SLIDING SCALE (NOVOLOG) 1 VIAL SQ SCH (21:03)
[2016-11-20] MEDS: INSULIN DETEMIR 100 UNITS/ML MDV SQ SCH (21:03)
[2016-11-20] MEDS ORDERED: INSULIN GLARGINE HUM REC ANLOG 14 UNIT SQ SCH (22:00)
[2016-11-21] MEDS: INSULIN SLIDING SCALE (NOVOLOG) 1 VIAL SQ SCH ×4 (06:10→21:13)
[2016-11-21 07:14] LABS: BASOPHIL 0.4 % (0-2.0); MCH 27.3 pg (25.7-33.7); MCHC 32.8 g/dl (32.0-36.0); MEAN CELL VOLUME 83.3 fl (80-96); MEAN PLT VOLUME 8.9 fl (7.5-11.1); PLATELET COUNT 168 K/MM3 (134-434); RDW 16.5 % (11.6-15.6); WHITE BLOOD COUNT 7.7 K/mm3 (4.0-10.0)
[2016-11-21 07:31] LABS: INR 1.86 (0.82-1.09); PROTHROMBIN TIME (PATIENT) 20.7 SEC (9.98-11.88)
[2016-11-21 07:48] LABS: ANION GAP 10 (8-16); CALCIUM 7.8 mg/dL (8.5-10.1); CO2 28 mmol/L (21-32); CREATININE 1.3 mg/dL (0.55-1.02); GLUCOSE,RANDOM 114 mg/dL (74-106)
[2016-11-21] MEDS: LABETALOL HCL 200 MG TABLET (FP) PO SCH (09:06)
[2016-11-21] MEDS: amLODIPine BESYLATE 5 MG TABLET (FP) PO SCH (09:06)
[2016-11-21] MEDS: LISINOPRIL 20 MG TABLET (FP) PO SCH (09:06)
[2016-11-21] MEDS: FERROUS SO4 325 MG TABLET (FP) PO SCH (09:07)
[2016-11-21] MEDS: PANTOPRAZOLE 40 MG TABLET (FP) PO SCH (09:07)
[2016-11-21] MEDS: POTASSIUM CHLORIDE TABS 20 MEQ TABLET.ER (FP) PO SCH (09:07)
[2016-11-21] MEDS: FUROSEMIDE 40 MG TABLET (FP) PO SCH (09:07)
[2016-11-21] MEDS: SERTRALINE HCL 50 MG TABLET (FP) PO SCH (09:07)
[2016-11-21] MEDS: cefTRIAXone 1 GM/50 ML BAG (PRE-DOCKED) IVPB SCH (09:08)
[2016-11-21] MEDS ORDERED: ACETAMINOPHEN 500 MG TABLET (FP) ONE ×2 (09:12→17:00)
[2016-11-21] MEDS: ACETAMINOPHEN 325 MG TABLET (FP) PO PRN ×3 (09:12→23:00)
[2016-11-21] MEDS ORDERED: PATIENT'S OWN MEDICATION (NON-FORMULARY) (Omeprazole 40 MG) PO SCH (10:00)
[2016-11-21] MEDS ORDERED: PATIENT'S OWN MEDICATION (NON-FORMULARY) (Simvastatin [Zocor] 40 MG) PO SCH (10:00)
--- NOTE | 2016-11-21 10:21 | PN ---
Progress Note, Physician History of Present Illness: Epistaxis resolved, left nare packing in place, Hgb stable. - Current Medication List Current Medications: Active Medications Acetaminophen (Tylenol -) 1,000 mg PO TID PRN PRN Reason: pain Last Admin: 11/21/16 09:12 Dose: 1,000 mg Amlodipine Besylate (Norvasc -) 5 mg PO DAILY [facility] Last Admin: 11/21/16 09:06 Dose: 5 mg Arformoterol Tartrate (Brovana (Restricted To Pulmonology/Resp) -) 1 amp NEB BID PK Atorvastatin Calcium (Lipitor -) 20 mg PO HS [facility] Last Admin: 11/20/16 21:00 Dose: 20 mg Ceftriaxone Sodium (Rocephin 1gm Ivpb (Pre-Docked)) 1 gm IVPB DAILY PK PRN Reason: Protocol Last Admin: 11/21/16 09:08 Dose: 1 gm Ergocalciferol (Drisdol -) 50,000 unit PO Tu@10 PK Ferrous Sulfate (Feosol -) 325 mg PO DAILY [facility] Last Admin: 11/21/16 09:07 Dose: 325 mg Furosemide (Lasix -) 80 mg PO DAILY [facility] Last Admin: 11/21/16 09:07 Dose: 80 mg Insulin Aspart (Novolog Vial Sliding Scale -) 1 vial SQ ACHS [facility] PRN Reason: Protocol Last Admin: 11/21/16 06:10 Dose: Not Given Insulin Detemir (Levemir Vial) 14 units SQ HS [facility] Last Admin: 11/20/16 21:03 Dose: 14 unit Labetalol HCl (Normodyne -) 200 mg PO DAILY [facility] Last Admin: 11/21/16 09:06 Dose: 200 mg Lisinopril (Prinivil) 20 mg PO DAILY [facility] Last Admin: 11/21/16 09:06 Dose: 20 mg Pantoprazole Sodium (Protonix -) 40 mg PO DAILY [facility] Last Admin: 11/21/16 09:07 Dose: 40 mg Potassium Chloride (K-Dur -) 20 meq PO DAILY [facility] Last Admin: 11/21/16 09:07 Dose: 20 meq Sertraline HCl (Zoloft -) 50 mg PO DAILY [facility] Last Admin: 11/21/16 09:07 Dose: 50 mg - Objective Vital Signs: Vital Signs Temperature 100.6 F H 11/21/16 06:00 Pulse Rate 99 H 11/21/16 06:00 Respiratory Rate 22 11/21/16 06:53 Blood Pressure 149/72 11/21/16 06:00 O2 Sat by Pulse Oximetry (%) 90 L 11/21/16 06:53 Constitutional: Yes: No Distress, Calm Neck: Yes: Supple Cardiovascular: Yes: Pulse Irregular Respiratory: Yes: Regular, Diminished Gastrointestinal: Yes: Normal Bowel Sounds, Soft, Abdomen, Obese Edema: No Labs: CBC, BMP 11/21/16 05:35 11/21/16 05:35 INR, PTT INR 1.86 (0.82-1.09) H 11/21/16 05:35 - ....Imaging EKG: Report Reviewed (Tele: Afib) Problem List - Problems (1) Aortic valve stenosis Code(s): I35.0 - NONRHEUMATIC AORTIC (VALVE) STENOSIS Qualifiers: Cardiac valve disease etiology: nonrheumatic Qualified Code(s): I35.0 - Nonrheumatic aortic (valve) stenosis (2) Atrial fibrillation Code(s): I48.91 - UNSPECIFIED ATRIAL FIBRILLATION Qualifiers: Atrial fibrillation type: persistent Qualified Code(s): I48.1 - Persistent atrial fibrillation (3) Diabetes mellitus Code(s): E11.9 - TYPE 2 DIABETES MELLITUS WITHOUT COMPLICATIONS Qualifiers: Diabetes mellitus type: type 2 Diabetes mellitus complication status: without complication Diabetes mellitus technician terminal and repeater insulin use: without custodial use Qualified Code(s): E11.9 - Type 2 diabetes mellitus without complications (4) Diastolic dysfunction Code(s): I51.9 - HEART DISEASE, UNSPECIFIED (5) Epistaxis Code(s): R04.0 - EPISTAXIS (6) HTN (hypertension) Code(s): I10 - ESSENTIAL (PRIMARY) HYPERTENSION Qualifiers: Hypertension type: essential hypertension Qualified Code(s): I10 - Essential (primary) hypertension (7) Hypercholesterolemia Code(s): E78.00 - PURE HYPERCHOLESTEROLEMIA, UNSPECIFIED (8) Mitral valve regurgitation Code(s): I34.0 - NONRHEUMATIC MITRAL (VALVE) INSUFFICIENCY Qualifiers: Cardiac valve disease etiology: nonrheumatic Qualified Code(s): I34.0 - Nonrheumatic mitral (valve) insufficiency (9) Tricuspid valve regurgitation Code(s): I07.1 - RHEUMATIC TRICUSPID INSUFFICIENCY Qualifiers: Cardiac valve disease etiology: nonrheumatic Qualified Code(s): I36.1 - Nonrheumatic tricuspid (valve) insufficiency (10) COPD (chronic obstructive pulmonary disease) Code(s): J44.9 - CHRONIC OBSTRUCTIVE PULMONARY DISEASE, UNSPECIFIED Qualifiers : COPD type: unspecified COPD Qualified Code(s): J44.9 - Chronic obstructive pulmonary disease, unspecified Assessment/Plan 1. Epistaxis S/P left nare packing 2. COPD 3. Diastolic LV dysfunction 4. Non-obstructive CAD, angina pectoris - demand ischemia 5. Mitral valve regurgitation 6. Aortic valve stenosis 7. Tricuspid valve regurgitation 8. Pulmonary HTN 9. Persistent atrial fibrillation [id number] 10. HTN/HCVD 11. Type 2 diabetes mellitus 12. Hypercholesterolemia 13. CKD PLAN: 1. ENT evaluation pending, on empiric abx course 2. Continue Labetalol 200 qd, Amlodipine 5 qd and Prinivil 20 qd 3. Continue Atorvastatin 20 qhs 4. Xarelto is being held pending assurance of hemostasis 5. Continue Lasix 80 qd
--- NOTE | 2016-11-21 10:42 | EKG ---
Test Reason : Blood Pressure : / mmHG Vent. Rate : 077 BPM Atrial Rate : 085 BPM P-R Int : 000 ms QRS Dur : 098 ms QT Int : 402 ms P-R-T Axes : 000 -49 014 degrees QTc Int : 454 ms ATRIAL FIBRILLATION LEFT ANTERIOR FASCICULAR BLOCK ABNORMAL ECG WHEN COMPARED WITH ECG OF 29-OCT-2016 13:22, VENT. RATE HAS INCREASED BY 29 BPM QT HAS LENGTHENED Confirmed by CULLEN DE [place], [place] ([id number]) on 11/21/2016 10:42:09 AM Referred By: Confirmed By:LA BERMAN MD
[2016-11-21] MEDS ORDERED: INSULIN (NOVOLOG) ASPART 100 UNITS/ML 10ML VIAL ONE (11:56)
--- NOTE | 2016-11-21 15:23 | PN ---
Physical Exam: SUBJECTIVE: Patient seen and examined at bedside. No overnight events. No new complaints. Rhino rocket in place. Denies CP, WATERMAN,SOB, abd.pain, N/V. OBJECTIVE: Vital Signs Period Temp Pulse Resp BP Sys/Mo Pulse Ox Last 24 Hr 98.5 F-100.6 F 82-101 20-22 149-164/53-85 90-93 GENERAL: AAOx3, NAD HEAD: NC/AT EYES: PERRL, EOMI, sclera anicteric, conjunctiva clear. No ptosis. ENT: Rhino rocket in place left nare, moist mucous membranes. NECK: Supple, JVD(+) LUNGS: CTAB, no wheezing or rales.. HEART: irregular, 3/6 JAZMYN RSB radiating to carotid. ABDOMEN: Soft, NT, ND, BS(+) EXTREMITIES: 2+ pulses, warm, well-perfused, no edema. NEUROLOGICAL: Cranial nerves II through XII grossly intact. Normal speech, gait not observed. PSYCH: Normal mood, normal affect. SKIN: Warm, dry, normal turgor, no rashes or lesions noted Laboratory Results - last 24 hr 11/20/16 11/20/16 11/20/16 15:30 17:32 20:49 WBC RBC Hgb Hct MCV MCHC RDW Plt Count MPV Neutrophils % Lymphocytes % Monocytes % Eosinophils % Basophils % INR Sodium Potassium Chloride Carbon Dioxide Anion Gap BUN Creatinine POC Glucometer 195 Random Glucose Lactic Acid 1.1 Calcium Troponin I 0.06 H B-Natriuretic Peptide 11/21/16 11/21/16 11/21/16 05:25 05:35 05:35 WBC 7.7 RBC 3.33 L Hgb 9.1 L Hct 27.7 L MCV 83.3 MCHC 32.8 RDW 16.5 H Plt Count 168 MPV 8.9 Neutrophils % 84.0 H Lymphocytes % 4.7 L D Monocytes % 10.9 H Eosinophils % 0.0 D Basophils % 0.4 INR 1.86 H Sodium Potassium Chloride Carbon Dioxide Anion Gap BUN Creatinine POC Glucometer 132 Random Glucose Lactic Acid Calcium Troponin I B-Natriuretic Peptide 11/21/16 11/21/16 05:35 11:52 WBC RBC Hgb Hct MCV MCHC RDW Plt Count MPV Neutrophils % Lymphocytes % Monocytes % Eosinophils % Basophils % INR Sodium 139 Potassium 3.5 Chloride 101 Carbon Dioxide 28 Anion Gap 10 BUN 33 H Creatinine 1.3 H POC Glucometer 204 Random Glucose 114 H D Lactic Acid Calcium 7.8 L Troponin I B-Natriuretic Peptide 14288.18 H Active Medications Generic Name Dose Route Start Last Admin Trade Name Freq PRN Reason Stop Dose Admin Acetaminophen 1,000 mg 11/20/16 15:08 11/21/16 09:12 Tylenol - PO 1,000 mg TID PRN Administration pain Amlodipine Besylate 5 mg 11/21/16 10:00 11/21/16 09:06 Norvasc - PO 5 mg DAILY PK Administration Arformoterol Tartrate 1 amp 11/20/16 22:00 Brovana (Restricted To Pulmonology/Resp) - NEB BID PK Atorvastatin Calcium 20 mg 11/20/16 22:00 11/20/16 21:00 Lipitor - PO 20 mg HS PK Administration Ceftriaxone Sodium 1 gm 11/21/16 10:00 11/21/16 09:08 Rocephin 1gm Ivpb (Pre-Docked) IVPB 1 gm DAILY PK Administration Protocol Ergocalciferol 50,000 unit 11/27/16 10:00 Drisdol - PO Tu@10 PK Ferrous Sulfate 325 mg 11/21/16 10:00 11/21/16 09:07 Feosol - PO 325 mg DAILY PK Administration Furosemide 80 mg 11/21/16 10:00 11/21/16 09:07 Lasix - PO 80 mg DAILY PK Administration Insulin Aspart 1 vial 11/20/16 22:00 11/21/16 12:00 Novolog Vial Sliding Scale - SQ 4 unit ACHS PK Administration Protocol Insulin Detemir 14 units 11/20/16 22:00 11/20/16 21:03 Levemir Vial SQ 14 unit HS PK Administration Labetalol HCl 200 mg 11/21/16 10:00 11/21/16 09:06 Normodyne - PO 200 mg DAILY PK Administration Lisinopril 20 mg 11/21/16 10:00 11/21/16 09:06 Prinivil PO 20 mg DAILY PK Administration Pantoprazole Sodium 40 mg 11/21/16 10:00 11/21/16 09:07 Protonix - PO 40 mg DAILY PK Administration Potassium Chloride 20 meq 11/21/16 10:00 11/21/16 09:07 K-Dur - PO 20 meq DAILY PK Administration Sertraline HCl 50 mg 11/21/16 10:00 11/21/16 09:07 Zoloft - PO 50 mg DAILY PK Administration ASSESSMENT/PLAN: 80 y/o F with h/o CAD , angina pectoris, diastolic CHF , MR, mild , ,TR, HTN, persistent A fib , DM , LP and COPD , who presented recurrent epistaxis . Problem List - Problems (1) Epistaxis Assessment/Plan: * Rhino Rocket in place. * bleeding controlled at this time * ENT consult pending. * AC held. (2) UTI (urinary tract infection) Assessment/Plan: * Continue with Ceftriaxone 1gm daily * cultures pending * repeat lab in am (3) Atrial fibrillation Assessment/Plan: * CHADVASC score of 7 * rate control with Labetolol 200mg PO daily * AC with xarelto held * Cardio consult appreciated. (4) Diabetes mellitus Assessment/Plan: * ADA diet * NISS AC * BGM ACHS * Levamir 14 units HS (5) Diastolic dysfunction Assessment/Plan: * Lasix 80 mg PO daily * K-dur 20 meq daily * Lisinopril 20mg PO daily * Lipitor 20mg PO HS * strict i/o's * daily weights. (6) HTN (hypertension) Assessment/Plan: * Will continue Amlodipine 5mg PO daily * Lisinopril 20mg and Labetolol 200mg PO daily (7) Hypercholesterolemia Assessment/Plan: * Continue lipitor 20mg PO HS (8) COPD (chronic obstructive pulmonary disease) Assessment/Plan: * Stable and well controlled with Arformoterol daily * supplemental O2 prn Visit type - Emergency Visit Emergency Visit: Yes ED Registration Date: 11/20/16 Care time: The patient presented to the Emergency Department on the above date and was hospitalized for further evaluation of their emergent condition. - New Patient This patient is new to me today: Yes Date on this admission: 11/21/16 - Critical Care Critical Care patient: No - Discharge Referral Referred to [facility] Med [facility] No
--- NOTE | 2016-11-21 19:36 | PN ---
Teaching Attending Note Name of Resident: Kike Le ATTENDING PHYSICIAN STATEMENT I saw and evaluated the patient. I reviewed the resident's note and discussed the case with the resident. I agree with the resident's findings and plan as documented. SUBJECTIVE: fever . has no pain . reports having a " mini stroke "before OBJECTIVE: NAD , rhinorocket in L nostril CV: irreg irreg Lungs : CTAB ext : no edema ASSESSMENT AND PLAN: 80 y/o lady with h/o CAD , angina pectoris, diastolic CHF , MR, mild , ,TR, HTN, persistent A fib , DM , LP and COPD , who presented recurrent epistaxis . 1- epistaxis : stopped now after L nostril packing on Abx ENT consult pending cont to hold xarelto 2- Persistent A fib: CHADSVASC of 7. d/w her the need for AC , despite nose bleed due to very high risk of stroke. if she has a major bleed , then AC can be stopped permanently She agrees and understands 3- atypical CP : resolved . trop with miminal insignificant elevation with no ischemic changes on EKG 4-complicated UTI: with sepsis . cont CTX and follow urine cx dispo : HLOC
--- NOTE | 2016-11-21 21:00 | CON.ENT ---
Consult Consult Specialty:: ENT Referred by:: Dr. Le Reason for Consultation:: epistaxis - History of Present Illness Chief Complaint: nasal bleeding History of Present Illness: 80 yo F with recent nasal bleeding had two ER visits starting 2 weeks ago had a third episode, EMT's stayed with her at home for 3 hours until it stopped , was hemodynamically stable saw Dr. Cash in office 11-19-16, nasal cauterization with packing was performed early AM 11-20-16 pt developed acute severe bleeding left side, expectorated a lot, "a bucket" brought to ER RhinoRocket placed left nose had some persistent bleeding now stopped this afternoon. Hx atrial fibrillation, was on Coumadin, now Xarelto, under care of Dr. Stewart significant orthopedic history in January 2016 pt had hip replacement, also had ipsilateral knee replacement (daughter states 9 hr surgery) states pt had a stroke after states heart has been weaker since and there is concern about her healing and possible need to revise the knee replacement pt also has a UTI with possible sepsis, had temp 100, now 99.2 this afternoon/ evening. - History Source History Provided By: Patient, Family Member, Medical Record Limitations to Obtaining History: No Limitations - Past Medical History Cardio/Vascular: Yes: AFIB, Aortic Stenosis, CAD, CHF, HTN, Hyperlipdemia, Mitral Insufficiency, Murmur, Pulmonary Hypertension Pulmonary: Yes: COPD Musculoskeletal: Yes: Osteoarthritis (had hip and knee replacement, still with some healing problems ), Other Endocrine: Yes: Diabetes Mellitus - Past Surgical History Past Surgical History: Yes: Joint Replacement - Alcohol/Substance Use Hx Alcohol Use: No History of Substance Use: reports: None - Smoking History Smoking history: Former smoker Have you smoked in the past 12 months: No Aproximately how many cigarettes per day: 0 If you are a former smoker, when did you quit?: "when I was very [place]" Home Medications - Allergies Allergies/Adverse Reactions: Allergies Allergy/AdvReac Type Severity Reaction Status Date / Time ciprofloxacin [From Cipro] Allergy Verified 11/20/16 11:06 ciprofloxacin HCl Allergy Verified 11/20/16 11:06 [From Cipro] - Home Medications Home Medications: Ambulatory Orders Acetaminophen [Tylenol] 1,000 mg PO TID PRN 07/02/16 Amlodipine Besylate [Norvasc -] 5 mg PO DAILY 07/02/16 Arformoterol Tartrate [Brovana] 15 mcg IH BID 07/02/16 Ergocalciferol (Vitamin D2) [Vitamin D2] 50,000 unit PO WEEKLY 07/02/16 Ferrous Sulfate 325 mg PO DAILY 07/02/16 Furosemide [Lasix] 80 mg PO DAILY 07/02/16 Insulin Glargine,Hum.rec.anlog [Lantus Solostar PEN (NF)] 14 units SQ HS Labetalol HCl [Normodyne -] 200 mg PO DAILY 07/02/16 Lisinopril [Prinivil] 20 mg PO DAILY 07/02/16 Omeprazole 40 mg PO DAILY 07/02/16 Potassium Chloride 20 meq PO DAILY 07/02/16 Repaglinide [Prandin] 1 mg PO TID 07/02/16 Sertraline HCl [Zoloft] 50 mg PO DAILY 07/02/16 Simvastatin [Zocor] 40 mg PO DAILY 07/02/16 Rivaroxaban [Xarelto -] 15 mg PO DAILY 11/20/16 Family Disease History - Family Disease History Family Disease History: Other: Daughter (alive and well) Other Family History: grandchildren alive and well Review of Systems - Review of Systems Constitutional: reports: Other (fatigue) Physical Exam-ENT Vital Signs: Vital Signs Temperature 100.7 F H 11/21/16 18:00 Pulse Rate 81 11/21/16 18:00 Respiratory Rate 18 11/21/16 18:00 Blood Pressure 137/71 11/21/16 18:00 O2 Sat by Pulse Oximetry (%) 91 L 11/21/16 15:00 Constitutional: Yes: No Distress, Calm Head: Yes: WNL Face: Yes: WNL Eyes: Yes: WNL Nose: Yes: Septum Deviated (right nasal cavity WNL, no bleeding. Left nasal cavity - nasal packing in place, no bleeding), Other Oral/Pharynx: Yes: WNL (no blood) Outer Ear: Yes: WNL Neck: Yes: WNL Respiratory: Yes: WNL Neurological: Yes: Alert, Oriented Problem List - Problems (1) Epistaxis Assessment/Plan: acute epistaxis, recurrent 4 episodes in past 2 weeks; 2 ER visits, then ENT office visit (cauterized/ packed), rebled next AM (6-27) to ER and packed, admitted on Xarelto for atrial fibrillation, presently being held active infection also increases risk for bleeding presently controlled with packing pt's hemoglobin and hematocrit are low Recommend: continue left nasal packing given significant recurrence and anticoagulation suggest a minimum of [address] Cash monitor hemoglobin/hematocrit - pt is on ferrous sulfate (home medication) but may consider transfusion as medically indicated hope for improvement with time and as active infection improves Thank you for consultation, Juan Francisco Ferraro MD FACS Code(s): R04.0 - EPISTAXIS
[2016-11-21] MEDS: INSULIN DETEMIR 100 UNITS/ML MDV SQ SCH (21:02)
[2016-11-21] MEDS: ATORVASTATIN CA 20 MG TABLET (FP) PO SCH (21:02)
[2016-11-21] MEDS: ARFORMOTEROL TARTRATE 15 MCG/2 ML VIAL NEB SCH (22:15)
[2016-11-22] MEDS: ACETAMINOPHEN 325 MG TABLET (FP) PO PRN ×2 (04:51→09:34)
[2016-11-22] MEDS: INSULIN SLIDING SCALE (NOVOLOG) 1 VIAL SQ SCH ×4 (06:12→21:02)
[2016-11-22] MEDS ORDERED: INSULIN DETEMIR 100 UNITS/ML MDV SQ ONE (06:17)
[2016-11-22] MEDS ORDERED: INSULIN (NOVOLOG) ASPART 100 UNITS/ML 10ML VIAL ONE ×3 (06:18→20:50)
[2016-11-22 07:56] LABS: MCH 27.1 pg (25.7-33.7); MCHC 32.5 g/dl (32.0-36.0); MEAN CELL VOLUME 83.4 fl (80-96); PLATELET COUNT 160 K/MM3 (134-434); RDW 15.8 % (11.6-15.6)
[2016-11-22 08:17] LABS: ALBUMIN 2.8 g/dl (3.4-5.0); ALK PHOS 86 U/L (45-117); ANION GAP 9 (8-16); BILIRUBIN,TOTAL 0.5 mg/dL (0.2-1.0); CO2 30 mmol/L (21-32); CREATININE 1.3 mg/dL (0.55-1.02); GLUCOSE,RANDOM 94 mg/dL (74-106); SGOT/AST 42 U/L (15-37); SGPT/ALT 35 U/L (12-78); TOT PROT 5.6 g/dl (6.4-8.2)
[2016-11-22] MEDS: PANTOPRAZOLE 40 MG TABLET (FP) PO SCH (09:33)
[2016-11-22] MEDS: amLODIPine BESYLATE 5 MG TABLET (FP) PO SCH (09:33)
[2016-11-22] MEDS: FERROUS SO4 325 MG TABLET (FP) PO SCH (09:33)
[2016-11-22] MEDS: LABETALOL HCL 200 MG TABLET (FP) PO SCH (09:33)
[2016-11-22] MEDS: LISINOPRIL 20 MG TABLET (FP) PO SCH (09:33)
[2016-11-22] MEDS: FUROSEMIDE 40 MG TABLET (FP) PO SCH (09:34)
[2016-11-22] MEDS: cefTRIAXone 1 GM/50 ML BAG (PRE-DOCKED) IVPB SCH (09:34)
[2016-11-22] MEDS: POTASSIUM CHLORIDE TABS 20 MEQ TABLET.ER (FP) PO SCH (09:34)
[2016-11-22] MEDS: SERTRALINE HCL 50 MG TABLET (FP) PO SCH (09:34)
--- NOTE | 2016-11-22 11:12 | PN ---
Progress Note, Physician History of Present Illness: Epistaxis resolved, left nare packing in place, Hgb stable, low grade fevers. - Current Medication List Current Medications: Active Medications Acetaminophen (Tylenol -) 1,000 mg PO TID PRN PRN Reason: pain Amlodipine Besylate (Norvasc -) 5 mg PO DAILY [facility] Last Admin: 11/22/16 09:33 Dose: 5 mg Arformoterol Tartrate (Brovana (Restricted To Pulmonology/Resp) -) 1 amp NEB BID [facility] Last Admin: 11/21/16 22:15 Dose: 1 amp Atorvastatin Calcium (Lipitor -) 20 mg PO HS [facility] Last Admin: 11/21/16 21:02 Dose: 20 mg Ceftriaxone Sodium (Rocephin 1gm Ivpb (Pre-Docked)) 1 gm IVPB DAILY [facility] PRN Reason: Protocol Last Admin: 11/22/16 09:34 Dose: 1 gm Ergocalciferol (Drisdol -) 50,000 unit PO Tu@10 [facility] Ferrous Sulfate (Feosol -) 325 mg PO DAILY [facility] Last Admin: 11/22/16 09:33 Dose: 325 mg Furosemide (Lasix -) 80 mg PO DAILY [facility] Last Admin: 11/22/16 09:34 Dose: 80 mg Insulin Aspart (Novolog Vial Sliding Scale -) 1 vial SQ ACHS [facility] PRN Reason: Protocol Last Admin: 11/22/16 06:12 Dose: Not Given Insulin Detemir (Levemir Vial) 14 units SQ HS [facility] Last Admin: 11/21/16 21:02 Dose: 14 unit Labetalol HCl (Normodyne -) 200 mg PO DAILY [facility] Last Admin: 11/22/16 09:33 Dose: 200 mg Lisinopril (Prinivil) 20 mg PO DAILY [facility] Last Admin: 11/22/16 09:33 Dose: 20 mg Pantoprazole Sodium (Protonix -) 40 mg PO DAILY [facility] Last Admin: 11/22/16 09:33 Dose: 40 mg Potassium Chloride (K-Dur -) 20 meq PO DAILY [facility] Last Admin: 11/22/16 09:34 Dose: 20 meq Sertraline HCl (Zoloft -) 50 mg PO DAILY [facility] Last Admin: 11/22/16 09:34 Dose: 50 mg - Objective Vital Signs: Vital Signs Temperature 100.6 F H 11/22/16 10:00 Pulse Rate 91 H 11/22/16 11:11 Respiratory Rate 20 11/22/16 10:00 Blood Pressure 146/65 11/22/16 10:00 O2 Sat by Pulse Oximetry (%) 95 11/22/16 11:11 Constitutional: Yes: No Distress, Calm Neck: Yes: Supple Cardiovascular: Yes: Pulse Irregular Respiratory: Yes: Regular, Diminished Gastrointestinal: Yes: Normal Bowel Sounds, Soft, Abdomen, Obese Edema: No Labs: CBC, BMP 11/22/16 05:35 11/22/16 05:35 INR, PTT INR 1.86 (0.82-1.09) H 11/21/16 05:35 Problem List - Problems (1) Aortic valve stenosis Code(s): I35.0 - NONRHEUMATIC AORTIC (VALVE) STENOSIS Qualifiers: Qualified Code(s): I35.0 - Nonrheumatic aortic (valve) stenosis (2) Atrial fibrillation Code(s): I48.91 - UNSPECIFIED ATRIAL FIBRILLATION Qualifiers: Qualified Code(s): I48.1 - Persistent atrial fibrillation (3) Diabetes mellitus Code(s): E11.9 - TYPE 2 DIABETES MELLITUS WITHOUT COMPLICATIONS Qualifiers: Qualified Code(s): E11.9 - Type 2 diabetes mellitus without complications (4) Diastolic dysfunction Code(s): I51.9 - HEART DISEASE, UNSPECIFIED (5) Epistaxis Code(s): R04.0 - EPISTAXIS (6) HTN (hypertension) Code(s): I10 - ESSENTIAL (PRIMARY) HYPERTENSION Qualifiers: Qualified Code(s): I10 - Essential (primary) hypertension (7) Hypercholesterolemia Code(s): E78.00 - PURE HYPERCHOLESTEROLEMIA, UNSPECIFIED (8) Mitral valve regurgitation Code(s): I34.0 - NONRHEUMATIC MITRAL (VALVE) INSUFFICIENCY Qualifiers: Qualified Code(s): I34.0 - Nonrheumatic mitral (valve) insufficiency (9) Tricuspid valve regurgitation Code(s): I07.1 - RHEUMATIC TRICUSPID INSUFFICIENCY Qualifiers: Qualified Code(s): I36.1 - Nonrheumatic tricuspid (valve) insufficiency (10) COPD (chronic obstructive pulmonary disease) Code(s): J44.9 - CHRONIC OBSTRUCTIVE PULMONARY DISEASE, UNSPECIFIED Qualifiers : Qualified Code(s): J44.9 - Chronic obstructive pulmonary disease, unspecified Assessment/Plan 1. Recurrent epistaxis S/P left nare packing 2. COPD 3. Diastolic LV dysfunction euvolemic 4. Non-obstructive CAD, angina pectoris - demand ischemia 5. Mitral valve regurgitation 6. Aortic valve stenosis 7. Tricuspid valve regurgitation 8. Pulmonary HTN 9. Persistent atrial fibrillation [id number] 10. HTN/HCVD 11. Type 2 diabetes mellitus 12. Hypercholesterolemia 13. CKD 14. UTI PLAN: 1. ENT evaluation appreciated, on empiric abx course per C&S 2. Continue Labetalol 200 qd, Amlodipine 5 qd, Lipitor 20 qhs and Prinivil 20 qd 3. Xarelto is being held pending assurance of hemostasis 4. Continue Lasix 80 qd
[2016-11-22 11:19] LABS: PLATELET ESTIMATE ADEQUATE (NORMAL)
[2016-11-22] MEDS: ARFORMOTEROL TARTRATE 15 MCG/2 ML VIAL NEB SCH ×2 (11:20→21:04)
--- NOTE | 2016-11-22 15:37 | PN ---
Physical Exam: SUBJECTIVE: Patient seen and examined at bedside. No overnight events. No new complaints. Rhino rocket in place. Denies CP, WATERMAN,SOB, abd.pain, N/V. OBJECTIVE: Vital Signs Period Temp Pulse Resp BP Sys/Mo Pulse Ox Last 24 Hr 97.8 F-100.7 F 74-98 18-20 133-156/64-94 92-95 GENERAL: AAOx3, NAD HEAD: NC/AT EYES: PERRL, EOMI, sclera anicteric, conjunctiva clear. No ptosis. ENT: Rhino rocket in place left nare, moist mucous membranes. NECK: Supple, JVD(+) LUNGS: CTAB, no wheezing or rales.. HEART: irregular, 3/6 JAZMYN RSB radiating to carotid. ABDOMEN: Soft, NT, ND, BS(+) EXTREMITIES: 2+ pulses, warm, well-perfused, no edema. NEUROLOGICAL: Cranial nerves II through XII grossly intact. Normal speech, gait not observed. PSYCH: Normal mood, normal affect. SKIN: Warm, dry, normal turgor, no rashes or lesions noted Laboratory Results - last 24 hr 11/21/16 11/21/16 11/22/16 17:05 20:25 05:23 WBC RBC Hgb Hct MCV MCHC RDW Plt Count MPV Neutrophils % Lymphocytes % Monocytes % Eosinophils % Differential Comment Platelet Estimate Sodium Potassium Chloride Carbon Dioxide Anion Gap BUN Creatinine Creat Clearance w eGFR POC Glucometer 103 216 100 Random Glucose Calcium Total Bilirubin AST ALT Alkaline Phosphatase Total Protein Albumin 11/22/16 11/22/16 11/22/16 05:35 05:35 11:29 WBC 4.0 D RBC 3.14 L Hgb 8.5 L Hct 26.2 L MCV 83.4 MCHC 32.5 RDW 15.8 H Plt Count 160 MPV 9.0 Neutrophils % 75.0 Lymphocytes % 17.0 D Monocytes % 7.0 Eosinophils % 1.0 D Differential Comment Manual diff done Platelet Estimate Adequate Sodium 140 Potassium 3.8 Chloride 101 Carbon Dioxide 30 Anion Gap 9 BUN 35 H Creatinine 1.3 H Creat Clearance w eGFR 39.31 POC Glucometer 169 Random Glucose 94 Calcium 8.0 L Total Bilirubin 0.5 D AST 42 H D ALT 35 D Alkaline Phosphatase 86 Total Protein 5.6 L Albumin 2.8 L Active Medications Generic Name Dose Route Start Last Admin Trade Name Freq PRN Reason Stop Dose Admin Acetaminophen 1,000 mg 11/22/16 09:43 Tylenol - PO TID PRN pain Amlodipine Besylate 5 mg 11/21/16 10:00 11/22/16 09:33 Norvasc - PO 5 mg DAILY PK Administration Arformoterol Tartrate 1 amp 11/20/16 22:00 11/22/16 11:20 Brovana (Restricted To Pulmonology/Resp) - NEB 1 amp BID PK Administration Atorvastatin Calcium 20 mg 11/20/16 22:00 11/21/16 21:02 Lipitor - PO 20 mg HS PK Administration Ceftriaxone Sodium 1 gm 11/21/16 10:00 11/22/16 09:34 Rocephin 1gm Ivpb (Pre-Docked) IVPB 1 gm DAILY PK Administration Protocol Ergocalciferol 50,000 unit 11/27/16 10:00 Drisdol - PO Tu@10 PK Ferrous Sulfate 325 mg 11/21/16 10:00 11/22/16 09:33 Feosol - PO 325 mg DAILY PK Administration Furosemide 80 mg 11/21/16 10:00 11/22/16 09:34 Lasix - PO 80 mg DAILY PK Administration Insulin Aspart 1 vial 11/20/16 22:00 11/22/16 12:40 Novolog Vial Sliding Scale - SQ 2 unit ACHS PK Administration Protocol Insulin Detemir 14 units 11/20/16 22:00 11/21/16 21:02 Levemir Vial SQ 14 unit HS PK Administration Labetalol HCl 200 mg 11/21/16 10:00 11/22/16 09:33 Normodyne - PO 200 mg DAILY PK Administration Lisinopril 20 mg 11/21/16 10:00 11/22/16 09:33 Prinivil PO 20 mg DAILY PK Administration Pantoprazole Sodium 40 mg 11/21/16 10:00 11/22/16 09:33 Protonix - PO 40 mg DAILY PK Administration Potassium Chloride 20 meq 11/21/16 10:00 11/22/16 09:34 K-Dur - PO 20 meq DAILY PK Administration Sertraline HCl 50 mg 11/21/16 10:00 11/22/16 09:34 Zoloft - PO 50 mg DAILY PK Administration ASSESSMENT/PLAN: 80 y/o F with h/o CAD , angina pectoris, diastolic CHF , MR, mild , ,TR, HTN, persistent A fib , DM , LP and COPD , who presented recurrent epistaxis . Problem List - Problems (1) Epistaxis Assessment/Plan: * Rhino Rocket in place. * bleeding controlled at this time * ENT consult appreciated. * WIll hold AC for 72hrs. (2) UTI (urinary tract infection) Assessment/Plan: * Continue with Ceftriaxone 1gm daily * cultures pending * repeat lab in am (3) Atrial fibrillation Assessment/Plan: * CHADVASC score of 7 * rate control with Labetolol 200mg PO daily * AC with xarelto held * Cardio consult appreciated. (4) Diabetes mellitus Assessment/Plan: * ADA diet * NISS AC * BGM ACHS * Levamir 14 units HS (5) Diastolic dysfunction Assessment/Plan: * Lasix 80 mg PO daily * K-dur 20 meq daily * Lisinopril 20mg PO daily * Lipitor 20mg PO HS * strict i/o's * daily weights. (6) HTN (hypertension) Assessment/Plan: * Will continue Amlodipine 5mg PO daily * Lisinopril 20mg and Labetolol 200mg PO daily (7) Hypercholesterolemia Assessment/Plan: * Continue lipitor 20mg PO HS (8) COPD (chronic obstructive pulmonary disease) Assessment/Plan: * Stable and well controlled with Arformoterol daily * supplemental O2 prn Visit type - Emergency Visit Emergency Visit: Yes ED Registration Date: 11/20/16 Care time: The patient presented to the Emergency Department on the above date and was hospitalized for further evaluation of their emergent condition. - New Patient This patient is new to me today: No - Critical Care Critical Care patient: No
--- NOTE | 2016-11-22 16:31 | PN ---
Teaching Attending Note Name of Resident: Kike Le ATTENDING PHYSICIAN STATEMENT I saw and evaluated the patient. I reviewed the resident's note and discussed the case with the resident. I agree with the resident's findings and plan as documented. SUBJECTIVE: no more bleed , cont to have fever . OBJECTIVE: NAD , rhinorocket in L nostril CV: irreg irreg Lungs: CTAB Ext : no edema ASSESSMENT AND PLAN: 80 y/o lady with h/o CAD , angina pectoris, diastolic CHF , MR, mild , ,TR, HTN, persistent A fib , DM , LP and COPD , who presented recurrent epistaxis . 1- Epistaxis : stopped now after L nostril packing cont to hold xarelto ENT input appreciated 2- Persistent A fib: CHADSVASC of 7. will resume AC in 24 hr 3- atypical CP : resolved . trop with minimal insignificant elevation with no ischemic changes on EKG 4-complicated UTI: with sepsis . cont to have fever , urine cx with NOn lactose fermenting Bacilli. ? pseudomonas. will change Abx to zosyn to also cover prophylactically while nose is packed dispo : HLOC
[2016-11-22] MEDS ORDERED: PIPERACILLIN/TAZOB 3.375 GM/50 ML PRE-DOCKED IVPB ONE (17:15)
--- NOTE | 2016-11-22 17:33 | CONSULT ---
Consult Consult Specialty:: infectious diseases Reason for Consultation:: fever,complicated uti - History of Present Illness Chief Complaint: fever,nose bleeds History of Present Illness: 80yo woman with PMH CRF, CHF, COPD, anemia, afib on Xarelto, HTN and chronic anemia admitted because of epistaxis. nosebleeds have been going on and off for 2 months Patient had bleeding again approximately approximately 2 weeks ago for which her PMD changed her from coumadin to xeralto She had another episode 11/18 and was seen by ENT Ornan who cauterized the source of bleeding. patient is now admitted with the left nasal packing in place She has been spiking fecers for couple of days and on work up has had a uti patient was started on ceftrtiaxone and inspite of that she has been spiking fever patient urine cx is positive for nlf bacteria ,but the identification of the organism is still awaited - History Source History Provided By: Patient Limitations to Obtaining History: No Limitations - Past Medical History Cardio/Vascular: Yes: AFIB, Aortic Stenosis, CAD, CHF, HTN, Hyperlipdemia, Mitral Insufficiency, Murmur, Pulmonary Hypertension Pulmonary: Yes: COPD Musculoskeletal: Yes: Osteoarthritis (had hip and knee replacement, still with some healing problems ), Other Endocrine: Yes: Diabetes Mellitus - Past Surgical History Past Surgical History: Yes: Joint Replacement - Alcohol/Substance Use Hx Alcohol Use: No History of Substance Use: reports: None - Smoking History Smoking history: Former smoker Have you smoked in the past 12 months: No Aproximately how many cigarettes per day: 0 If you are a former smoker, when did you quit?: "when I was very [place]" Home Medications - Allergies Allergies/Adverse Reactions: Allergies Allergy/AdvReac Type Severity Reaction Status Date / Time ciprofloxacin [From Cipro] Allergy Verified 11/20/16 11:06 ciprofloxacin HCl Allergy Verified 11/20/16 11:06 [From Cipro] - Home Medications Home Medications: Ambulatory Orders Acetaminophen [Tylenol] 1,000 mg PO TID PRN 07/02/16 Amlodipine Besylate [Norvasc -] 5 mg PO DAILY 07/02/16 Arformoterol Tartrate [Brovana] 15 mcg IH BID 07/02/16 Ergocalciferol (Vitamin D2) [Vitamin D2] 50,000 unit PO WEEKLY 07/02/16 Furosemide [Lasix] 80 mg PO DAILY 07/02/16 Insulin Glargine,Hum.rec.anlog [Lantus Solostar PEN (NF)] 14 units SQ HS Labetalol HCl [Normodyne -] 200 mg PO DAILY 07/02/16 Lisinopril [Prinivil] 20 mg PO DAILY 07/02/16 RX: Ferrous Sulfate 325 mg PO DAILY 07/02/16 RX: Omeprazole 40 mg PO DAILY 07/02/16 RX: Potassium Chloride 20 meq PO DAILY 07/02/16 Repaglinide [Prandin] 1 mg PO TID 07/02/16 Sertraline HCl [Zoloft] 50 mg PO DAILY 07/02/16 Simvastatin [Zocor] 40 mg PO DAILY 07/02/16 Rivaroxaban [Xarelto -] 15 mg PO DAILY 11/20/16 Family Disease History - Family Disease History Family Disease History: Other: Daughter (alive and well) Other Family History: grandchildren alive and well Review of Systems - Review of Systems Constitutional: reports: Fever, Other Eyes: reports: No Symptoms HENT: reports: Other (nasal bleed) Neck: reports: No Symptoms Cardiovascular: reports: No Symptoms Respiratory: reports: No Symptoms Gastrointestinal: reports: No Symptoms Genitourinary: reports: No Symptoms Breasts: reports: No Symptoms Reported Musculoskeletal: reports: No Symptoms Integumentary: reports: No Symptoms Neurological: reports: No Symptoms Endocrine: reports: No Symptoms Hematology/Lymphatic: reports: No Symptoms Psychiatric: reports: No Symptoms Physical Exam Vital Signs: Vital Signs Temperature 100.0 F H 11/22/16 13:42 Pulse Rate 86 11/22/16 13:42 Respiratory Rate 18 11/22/16 13:42 Blood Pressure 156/94 11/22/16 13:42 O2 Sat by Pulse Oximetry (%) 95 11/22/16 11:11 Constitutional: Yes: Well Nourished, No Distress, Calm Eyes: Yes: Conjunctiva Clear HENT: Yes: Atraumatic, Other (nasal packing) Neck: Yes: Supple Cardiovascular: Yes: Pulse Irregular, S1, S2 Respiratory: Yes: Regular, Poor Air Entry, Rhonchi Gastrointestinal: Yes: Normal Bowel Sounds, Soft Musculoskeletal: Yes: WNL Extremities: Yes: WNL Neurological: Yes: Alert, Oriented Psychiatric: Yes: Alert, Oriented Labs: CBC, BMP 11/22/16 05:35 11/22/16 05:35 Assessment/Plan Problem List - Problems (1) Aortic valve stenosis Code(s): I35.0 - NONRHEUMATIC AORTIC (VALVE) STENOSIS Qualifiers: Qualified Code(s): I35.0 - Nonrheumatic aortic (valve) stenosis (2) Atrial fibrillation Code(s): I48.91 - UNSPECIFIED ATRIAL FIBRILLATION Qualifiers: Qualified Code(s): I48.1 - Persistent atrial fibrillation (3) Diabetes mellitus Code(s): E11.9 - TYPE 2 DIABETES MELLITUS WITHOUT COMPLICATIONS Qualifiers: Qualified Code(s): E11.9 - Type 2 diabetes mellitus without complications (4) Diastolic dysfunction Code(s): I51.9 - HEART DISEASE, UNSPECIFIED (5) Epistaxis Code(s): R04.0 - EPISTAXIS (6) HTN (hypertension) Code(s): I10 - ESSENTIAL (PRIMARY) HYPERTENSION Qualifiers: Qualified Code(s): I10 - Essential (primary) hypertension (7) Hypercholesterolemia Code(s): E78.00 - PURE HYPERCHOLESTEROLEMIA, UNSPECIFIED (8) Mitral valve regurgitation Code(s): I34.0 - NONRHEUMATIC MITRAL (VALVE) INSUFFICIENCY Qualifiers: Qualified Code(s): I34.0 - Nonrheumatic mitral (valve) insufficiency (9) Tricuspid valve regurgitation Code(s): I07.1 - RHEUMATIC TRICUSPID INSUFFICIENCY Qualifiers: Qualified Code(s): I36.1 - Nonrheumatic tricuspid (valve) insufficiency (10) COPD (chronic obstructive pulmonary disease) Code(s): J44.9 - CHRONIC OBSTRUCTIVE PULMONARY DISEASE, UNSPECIFIED Qualifiers : Qualified Code(s): J44.9 - Chronic obstructive pulmonary disease, unspecified 11 uti since patient has been spiking fevers this could be an esbl organism or it could be resistant to ceftriaxone and also patient is known to ahve lot of cardiac issues and came in with bleeding in the light of that view plan will stop ceftriaxone will start patient on ertapenam await for identification of the organism hydration will monitor for fever and if she still spikes through ertapenam then will add clinda to the regime
[2016-11-22] MEDS: ERTAPENEM SODIUM 1 GM in SODIUM CHLORIDE 50 ML IVPB SCH (18:38)
[2016-11-22] MEDS: INSULIN DETEMIR 100 UNITS/ML MDV SQ SCH (21:01)
[2016-11-22] MEDS: ATORVASTATIN CA 20 MG TABLET (FP) PO SCH (21:01)
[2016-11-22] MEDS: ACETAMINOPHEN 500 MG TABLET (FP) PO PRN (21:01)
[2016-11-23] MEDS: INSULIN SLIDING SCALE (NOVOLOG) 1 VIAL SQ SCH ×4 (06:19→21:07)
[2016-11-23] MEDS: ACETAMINOPHEN 500 MG TABLET (FP) PO PRN ×2 (06:24→21:08)
[2016-11-23 08:08] LABS: MCH 27.2 pg (25.7-33.7); MCHC 32.8 g/dl (32.0-36.0); MEAN CELL VOLUME 82.9 fl (80-96); MEAN PLT VOLUME 8.7 fl (7.5-11.1); PLATELET COUNT 182 K/MM3 (134-434); RDW 16.1 % (11.6-15.6); WHITE BLOOD COUNT 5.1 K/mm3 (4.0-10.0)
[2016-11-23 08:27] LABS: ANION GAP 9 (8-16); CALCIUM 8.3 mg/dL (8.5-10.1); CO2 28 mmol/L (21-32); CREATININE 1.1 mg/dL (0.55-1.02); GLUCOSE,RANDOM 80 mg/dL (74-106)
[2016-11-23] MEDS: POTASSIUM CHLORIDE TABS 20 MEQ TABLET.ER (FP) PO SCH (09:02)
[2016-11-23] MEDS: FERROUS SO4 325 MG TABLET (FP) PO SCH (09:02)
[2016-11-23] MEDS: SERTRALINE HCL 50 MG TABLET (FP) PO SCH (09:03)
[2016-11-23] MEDS: ERTAPENEM SODIUM 1 GM in SODIUM CHLORIDE 50 ML IVPB SCH (09:03)
[2016-11-23] MEDS: PANTOPRAZOLE 40 MG TABLET (FP) PO SCH (09:03)
[2016-11-23] MEDS: LISINOPRIL 20 MG TABLET (FP) PO SCH (09:03)
[2016-11-23] MEDS: LABETALOL HCL 200 MG TABLET (FP) PO SCH (09:03)
[2016-11-23] MEDS: FUROSEMIDE 40 MG TABLET (FP) PO SCH (09:03)
[2016-11-23] MEDS: amLODIPine BESYLATE 5 MG TABLET (FP) PO SCH (09:03)
[2016-11-23] MEDS: ARFORMOTEROL TARTRATE 15 MCG/2 ML VIAL NEB SCH ×2 (10:47→22:15)
--- NOTE | 2016-11-23 11:27 | PN ---
Progress Note, Physician History of Present Illness: Epistaxis resolved, left nare packing in place, Hgb stable, afebrile. - Current Medication List Current Medications: Active Medications Acetaminophen (Tylenol -) 1,000 mg PO TID PRN PRN Reason: pain Last Admin: 11/23/16 06:24 Dose: 1,000 mg Amlodipine Besylate (Norvasc -) 5 mg PO DAILY [facility] Last Admin: 11/23/16 09:03 Dose: 5 mg Arformoterol Tartrate (Brovana (Restricted To Pulmonology/Resp) -) 1 amp NEB BID PK Last Admin: 11/23/16 10:47 Dose: 1 amp Atorvastatin Calcium (Lipitor -) 20 mg PO HS [facility] Last Admin: 11/22/16 21:01 Dose: 20 mg Ergocalciferol (Drisdol -) 50,000 unit PO Tu@10 PK Ferrous Sulfate (Feosol -) 325 mg PO DAILY [facility] Last Admin: 11/23/16 09:02 Dose: 325 mg Furosemide (Lasix -) 80 mg PO DAILY [facility] Last Admin: 11/23/16 09:03 Dose: 80 mg Ertapenem 1 gm/ Sodium (Chloride) 50 mls @ 50 mls/hr IVPB DAILY PK PRN Reason: Protocol Last Admin: 11/23/16 09:03 Dose: 50 mls/hr Insulin Aspart (Novolog Vial Sliding Scale -) 1 vial SQ ACHS PK PRN Reason: Protocol Last Admin: 11/23/16 06:19 Dose: Not Given Insulin Detemir (Levemir Vial) 14 units SQ HS [facility] Last Admin: 11/22/16 21:01 Dose: 14 unit Labetalol HCl (Normodyne -) 200 mg PO DAILY [facility] Last Admin: 11/23/16 09:03 Dose: 200 mg Lisinopril (Prinivil) 20 mg PO DAILY [facility] Last Admin: 11/23/16 09:03 Dose: 20 mg Pantoprazole Sodium (Protonix -) 40 mg PO DAILY [facility] Last Admin: 11/23/16 09:03 Dose: 40 mg Potassium Chloride (K-Dur -) 20 meq PO DAILY [facility] Last Admin: 11/23/16 09:02 Dose: 20 meq Sertraline HCl (Zoloft -) 50 mg PO DAILY [facility] Last Admin: 11/23/16 09:03 Dose: 50 mg - Objective Vital Signs: Vital Signs Temperature 98.8 F 11/23/16 06:00 Pulse Rate 98 H 11/23/16 06:00 Respiratory Rate 20 11/23/16 06:00 Blood Pressure 151/88 11/23/16 06:00 O2 Sat by Pulse Oximetry (%) 95 11/22/16 21:00 Constitutional: Yes: No Distress, Calm Neck: Yes: Supple Cardiovascular: Yes: Pulse Irregular Respiratory: Yes: Regular, Diminished Gastrointestinal: Yes: Normal Bowel Sounds, Soft, Abdomen, Obese Edema: No Labs: CBC, BMP 11/23/16 07:45 11/23/16 07:45 INR, PTT INR 1.86 (0.82-1.09) H 11/21/16 05:35 - ....Imaging EKG: Report Reviewed (Tele: Rate-controlled afib) Problem List - Problems (1) Aortic valve stenosis Code(s): I35.0 - NONRHEUMATIC AORTIC (VALVE) STENOSIS Qualifiers: Qualified Code(s): I35.0 - Nonrheumatic aortic (valve) stenosis (2) Atrial fibrillation Code(s): I48.91 - UNSPECIFIED ATRIAL FIBRILLATION Qualifiers: Qualified Code(s): I48.1 - Persistent atrial fibrillation (3) Diabetes mellitus Code(s): E11.9 - TYPE 2 DIABETES MELLITUS WITHOUT COMPLICATIONS Qualifiers: Qualified Code(s): E11.9 - Type 2 diabetes mellitus without complications (4) Diastolic dysfunction Code(s): I51.9 - HEART DISEASE, UNSPECIFIED (5) Epistaxis Code(s): R04.0 - EPISTAXIS (6) HTN (hypertension) Code(s): I10 - ESSENTIAL (PRIMARY) HYPERTENSION Qualifiers: Qualified Code(s): I10 - Essential (primary) hypertension (7) Hypercholesterolemia Code(s): E78.00 - PURE HYPERCHOLESTEROLEMIA, UNSPECIFIED (8) Mitral valve regurgitation Code(s): I34.0 - NONRHEUMATIC MITRAL (VALVE) INSUFFICIENCY Qualifiers: Qualified Code(s): I34.0 - Nonrheumatic mitral (valve) insufficiency (9) Tricuspid valve regurgitation Code(s): I07.1 - RHEUMATIC TRICUSPID INSUFFICIENCY Qualifiers: Qualified Code(s): I36.1 - Nonrheumatic tricuspid (valve) insufficiency (10) COPD (chronic obstructive pulmonary disease) Code(s): J44.9 - CHRONIC OBSTRUCTIVE PULMONARY DISEASE, UNSPECIFIED Qualifiers : Qualified Code(s): J44.9 - Chronic obstructive pulmonary disease, unspecified Assessment/Plan 1. Recurrent epistaxis S/P left nare packing 2. COPD 3. Diastolic LV dysfunction euvolemic 4. Non-obstructive CAD, angina pectoris - demand ischemia 5. Mitral valve regurgitation 6. Aortic valve stenosis 7. Tricuspid valve regurgitation 8. Pulmonary HTN 9. Persistent atrial fibrillation [id number] 10. HTN/HCVD 11. Type 2 diabetes mellitus 12. Hypercholesterolemia 13. Acute on CKD 14. UTI PLAN: 1. ENT evaluation appreciated, on empiric abx course per C&S 2. Continue Labetalol 200 qd, Amlodipine 5 qd, Lipitor 20 qhs and Prinivil 20 qd 3. Xarelto is being held pending assurance of hemostasis 4. Continue Lasix 80 qd, GI prophylaxis
--- NOTE | 2016-11-23 14:00 | PN ---
Progress Note (short form) - Note Progress Note: She has not had any bleeding from the nose or posteriorly for the past couple days. Her INR is improved and not taking anticoagulants. I deflated the nasal packing and removed it. No bleeding was encountered on removal. She is to avoid touching her nose. No nose blowing and open the mouth when sneezing. Bacitracin ointment should be applied in to moisten the left nares 2x/day for 2 weeks. She should f/u with me on the previous appt she made while in my office.
--- NOTE | 2016-11-23 15:30 | PN ---
Progress Note, Physician History of Present Illness: says she feels better today no complaints - Current Medication List Current Medications: Active Medications Acetaminophen (Tylenol -) 1,000 mg PO TID PRN PRN Reason: pain Last Admin: 11/23/16 06:24 Dose: 1,000 mg Amlodipine Besylate (Norvasc -) 5 mg PO DAILY [facility] Last Admin: 11/23/16 09:03 Dose: 5 mg Arformoterol Tartrate (Brovana (Restricted To Pulmonology/Resp) -) 1 amp NEB BID [facility] Last Admin: 11/23/16 10:47 Dose: 1 amp Atorvastatin Calcium (Lipitor -) 20 mg PO HS [facility] Last Admin: 11/22/16 21:01 Dose: 20 mg Bacitracin (Bacitracin -) 1 applic TP BID [facility] Ergocalciferol (Drisdol -) 50,000 unit PO Tu@10 PK Ferrous Sulfate (Feosol -) 325 mg PO DAILY [facility] Last Admin: 11/23/16 09:02 Dose: 325 mg Furosemide (Lasix -) 80 mg PO DAILY [facility] Last Admin: 11/23/16 09:03 Dose: 80 mg Ertapenem 1 gm/ Sodium (Chloride) 50 mls @ 50 mls/hr IVPB DAILY [facility] PRN Reason: Protocol Last Admin: 11/23/16 09:03 Dose: 50 mls/hr Insulin Aspart (Novolog Vial Sliding Scale -) 1 vial SQ ACHS [facility] PRN Reason: Protocol Last Admin: 11/23/16 11:50 Dose: Not Given Insulin Detemir (Levemir Vial) 14 units SQ HS [facility] Last Admin: 11/22/16 21:01 Dose: 14 unit Labetalol HCl (Normodyne -) 200 mg PO DAILY [facility] Last Admin: 11/23/16 09:03 Dose: 200 mg Lisinopril (Prinivil) 20 mg PO DAILY [facility] Last Admin: 11/23/16 09:03 Dose: 20 mg Pantoprazole Sodium (Protonix -) 40 mg PO DAILY [facility] Last Admin: 11/23/16 09:03 Dose: 40 mg Potassium Chloride (K-Dur -) 20 meq PO DAILY [facility] Last Admin: 11/23/16 09:02 Dose: 20 meq Sertraline HCl (Zoloft -) 50 mg PO DAILY [facility] Last Admin: 11/23/16 09:03 Dose: 50 mg - Objective Vital Signs: Vital Signs Temperature 98.4 F 11/23/16 14:05 Pulse Rate 75 11/23/16 14:05 Respiratory Rate 18 11/23/16 14:05 Blood Pressure 150/62 11/23/16 14:05 O2 Sat by Pulse Oximetry (%) 92 L 11/23/16 07:00 Constitutional: Yes: No Distress, Calm HENT: Yes: Other (packing in place) Cardiovascular: Yes: Pulse Irregular, S1, S2 Respiratory: Yes: Regular, Rhonchi Gastrointestinal: Yes: Normal Bowel Sounds, Soft Musculoskeletal: Yes: WNL Extremities: Yes: WNL Neurological: Yes: Alert, Oriented Psychiatric: Yes: Alert Labs: CBC, BMP 11/23/16 07:45 11/23/16 07:45 INR, PTT INR 1.86 (0.82-1.09) H 11/21/16 05:35 - ....Imaging Chest X-ray: Report Reviewed, Image Reviewed Assessment/Plan Problem List - Problems (1) Aortic valve stenosis Code(s): I35.0 - NONRHEUMATIC AORTIC (VALVE) STENOSIS Qualifiers: Qualified Code(s): I35.0 - Nonrheumatic aortic (valve) stenosis (2) Atrial fibrillation Code(s): I48.91 - UNSPECIFIED ATRIAL FIBRILLATION Qualifiers: Qualified Code(s): I48.1 - Persistent atrial fibrillation (3) Diabetes mellitus Code(s): E11.9 - TYPE 2 DIABETES MELLITUS WITHOUT COMPLICATIONS Qualifiers: Qualified Code(s): E11.9 - Type 2 diabetes mellitus without complications (4) Diastolic dysfunction Code(s): I51.9 - HEART DISEASE, UNSPECIFIED (5) Epistaxis Code(s): R04.0 - EPISTAXIS (6) HTN (hypertension) Code(s): I10 - ESSENTIAL (PRIMARY) HYPERTENSION Qualifiers: Qualified Code(s): I10 - Essential (primary) hypertension (7) Hypercholesterolemia Code(s): E78.00 - PURE HYPERCHOLESTEROLEMIA, UNSPECIFIED (8) Mitral valve regurgitation Code(s): I34.0 - NONRHEUMATIC MITRAL (VALVE) INSUFFICIENCY Qualifiers: Qualified Code(s): I34.0 - Nonrheumatic mitral (valve) insufficiency (9) Tricuspid valve regurgitation Code(s): I07.1 - RHEUMATIC TRICUSPID INSUFFICIENCY Qualifiers: Qualified Code(s): I36.1 - Nonrheumatic tricuspid (valve) insufficiency (10) COPD (chronic obstructive pulmonary disease) Code(s): J44.9 - CHRONIC OBSTRUCTIVE PULMONARY DISEASE, UNSPECIFIED Qualifiers : Qualified Code(s): J44.9 - Chronic obstructive pulmonary disease, unspecified 11 uti patient fever coming down very low grade will continue to monitor if patient is afebrile then after the 3rd dose ertapenam will downgrade to oral plan continue current mgmt rest as per primary
--- NOTE | 2016-11-23 15:45 | PN ---
Teaching Attending Note Name of Resident: Kike Le ATTENDING PHYSICIAN STATEMENT I saw and evaluated the patient. I reviewed the resident's note and discussed the case with the resident. I agree with the resident's findings and plan as documented. SUBJECTIVE: no fever or chills. has n PAin or bleeding OBJECTIVE: NAD CV: irreg irreg Lungs: CTAB Ext: no edema ASSESSMENT AND PLAN: 80 y/o lady with h/o CAD , angina pectoris, diastolic CHF , MR, mild , ,TR, HTN, persistent A fib , DM , LP and COPD , who presented recurrent epistaxis . 1- Epistaxis : stopped now s/p removal of packing with no recurrence resume xarelto in am bacitracin in nose BID x 2 weeks f/u with ENT at [facility] 2- Persistent A fib: CHADSVASC of 7. will resume AC tomorrow 3- Atypical CP : resolved . 4-Complicated UTI: with sepsis . fever only imporved after adding ertapenem . today day 2 of ertapenem. urine cx reviewed. dc tomorrow afternoon . home with home care
--- NOTE | 2016-11-23 16:24 | PN ---
Physical Exam: SUBJECTIVE: Patient seen and examined at bedside. No overnight events. No new complaints. Rhino rocket removed.No active bleeding. Denies CP, WATERMAN,SOB, abd.pain, N/V. OBJECTIVE: GENERAL: AAOx3, NAD HEAD: NC/AT EYES: PERRL, EOMI, sclera anicteric, conjunctiva clear. No ptosis. ENT: Rhino rocket in place left nare, moist mucous membranes. NECK: Supple, JVD(+) LUNGS: CTAB, no wheezing or rales.. HEART: irregular, 3/6 JAZMYN RSB radiating to carotid. ABDOMEN: Soft, NT, ND, BS(+) EXTREMITIES: 2+ pulses, warm, well-perfused, no edema. NEUROLOGICAL: Cranial nerves II through XII grossly intact. Normal speech, gait not observed. PSYCH: Normal mood, normal affect. SKIN: Warm, dry, normal turgor, no rashes or lesions noted Active Medications Generic Name Dose Route Start Last Admin Trade Name Freq PRN Reason Stop Dose Admin Acetaminophen 1,000 mg 11/22/16 09:43 11/23/16 06:24 Tylenol - PO 1,000 mg TID PRN Administration pain Amlodipine Besylate 5 mg 11/21/16 10:00 11/23/16 09:03 Norvasc - PO 5 mg DAILY PK Administration Arformoterol Tartrate 1 amp 11/20/16 22:00 11/23/16 10:47 Brovana (Restricted To Pulmonology/Resp) - NEB 1 amp BID PK Administration Atorvastatin Calcium 20 mg 11/20/16 22:00 11/22/16 21:01 Lipitor - PO 20 mg HS PK Administration Bacitracin 1 applic 11/23/16 22:00 Bacitracin - TP BID PK Ergocalciferol 50,000 unit 11/27/16 10:00 Drisdol - PO Tu@10 PK Ferrous Sulfate 325 mg 11/21/16 10:00 11/23/16 09:02 Feosol - PO 325 mg DAILY PK Administration Furosemide 80 mg 11/21/16 10:00 11/23/16 09:03 Lasix - PO 80 mg DAILY PK Administration Ertapenem 1 gm/ Sodium 50 mls @ 50 mls/hr 11/22/16 17:45 11/23/16 09:03 Chloride IVPB 50 mls/hr DAILY PK Administration Protocol Insulin Aspart 1 vial 11/20/16 22:00 11/23/16 11:50 Novolog Vial Sliding Scale - SQ Not Given ACHS PK Protocol Insulin Detemir 14 units 11/20/16 22:00 11/22/16 21:01 Levemir Vial SQ 14 unit HS PK Administration Labetalol HCl 200 mg 11/21/16 10:00 11/23/16 09:03 Normodyne - PO 200 mg DAILY PK Administration Lisinopril 20 mg 11/21/16 10:00 11/23/16 09:03 Prinivil PO 20 mg DAILY PK Administration Pantoprazole Sodium 40 mg 11/21/16 10:00 11/23/16 09:03 Protonix - PO 40 mg DAILY PK Administration Potassium Chloride 20 meq 11/21/16 10:00 11/23/16 09:02 K-Dur - PO 20 meq DAILY PK Administration Sertraline HCl 50 mg 11/21/16 10:00 11/23/16 09:03 Zoloft - PO 50 mg DAILY PK Administration ASSESSMENT/PLAN: 80 y/o F with h/o CAD , angina pectoris, diastolic CHF , MR, mild , ,TR, HTN, persistent A fib , DM , LP and COPD , who presented recurrent epistaxis . Problem List - Problems (1) Epistaxis Assessment/Plan: * Rhino Rocket removed today * bacitracin BID * bleeding controlled at this time * ENT consult appreciated. * RESUME Xarelto in am. (2) UTI (urinary tract infection) Assessment/Plan: * cultures * Started on Invanz as per ID * repeat lab in am (3) Atrial fibrillation Assessment/Plan: * CHADVASC score of 7 * rate control with Labetolol 200mg PO daily * AC with xarelto held * Cardio consult appreciated. (4) Diabetes mellitus Assessment/Plan: * ADA diet * NISS AC * BGM ACHS * Levamir 14 units HS (5) Diastolic dysfunction Assessment/Plan: * Lasix 80 mg PO daily * K-dur 20 meq daily * Lisinopril 20mg PO daily * Lipitor 20mg PO HS * strict i/o's * daily weights. (6) HTN (hypertension) Assessment/Plan: * Will continue Amlodipine 5mg PO daily * Lisinopril 20mg and Labetolol 200mg PO daily (7) Hypercholesterolemia Assessment/Plan: * Continue lipitor 20mg PO HS (8) COPD (chronic obstructive pulmonary disease) Assessment/Plan: * Stable and well controlled with Arformoterol daily * supplemental O2 prn Visit type - Emergency Visit Emergency Visit: Yes ED Registration Date: 11/23/16 Care time: The patient presented to the Emergency Department on the above date and was hospitalized for further evaluation of their emergent condition. - New Patient This patient is new to me today: No - Critical Care Critical Care patient: No
[2016-11-23] MEDS ORDERED: INSULIN (NOVOLOG) ASPART 100 UNITS/ML 10ML VIAL ONE (21:02)
[2016-11-23] MEDS: ATORVASTATIN CA 20 MG TABLET (FP) PO SCH (21:07)
[2016-11-23] MEDS: INSULIN DETEMIR 100 UNITS/ML MDV SQ SCH (21:07)
[2016-11-23] MEDS: BACITRACIN 15 GM TUBE TOPICAL OINTMENT TP SCH (21:07)
[2016-11-24] MEDS ORDERED: amLODIPine BESYLATE 5 MG TABLET (FP) PO ONE ×3 (02:15→20:47)
[2016-11-24] MEDS: INSULIN SLIDING SCALE (NOVOLOG) 1 VIAL SQ SCH ×4 (06:18→21:02)
--- NOTE | 2016-11-24 06:59 | PN ---
Progress Note (short form) - Note Progress Note: Chief Complaint: Events noted, notes reviewed, denies any chest pain or dyspnea , denies any further epistaxis History of Present Illness: Seen and examined on telemetry. Events noted, notes reviewed, denies any chest pain or dyspnea, denies any further epistaxis Hypertension noted Current Medications: Current Medications Acetaminophen (Tylenol -) 1,000 mg PO TID PRN PRN Reason: pain Last Admin: 11/23/16 21:08 Dose: 1,000 mg Amlodipine Besylate (Norvasc -) 5 mg PO DAILY [facility] Last Admin: 11/23/16 09:03 Dose: 5 mg Arformoterol Tartrate (Brovana (Restricted To Pulmonology/Resp) -) 1 amp NEB BID [facility] Last Admin: 11/23/16 22:15 Dose: 1 amp Atorvastatin Calcium (Lipitor -) 20 mg PO HS [facility] Last Admin: 11/23/16 21:07 Dose: 20 mg Bacitracin (Bacitracin -) 1 applic TP BID [facility] Last Admin: 11/23/16 21:07 Dose: 1 applic Ergocalciferol (Drisdol -) 50,000 unit PO Tu@10 PK Ferrous Sulfate (Feosol -) 325 mg PO DAILY [facility] Last Admin: 11/23/16 09:02 Dose: 325 mg Furosemide (Lasix -) 80 mg PO DAILY [facility] Last Admin: 11/23/16 09:03 Dose: 80 mg Ertapenem 1 gm/ Sodium (Chloride) 50 mls @ 50 mls/hr IVPB DAILY [facility] PRN Reason: Protocol Last Admin: 11/23/16 09:03 Dose: 50 mls/hr Insulin Aspart (Novolog Vial Sliding Scale -) 1 vial SQ ACHS [facility] PRN Reason: Protocol Last Admin: 11/24/16 06:18 Dose: Not Given Insulin Detemir (Levemir Vial) 14 units SQ HS [facility] Last Admin: 11/23/16 21:07 Dose: 14 unit Labetalol HCl (Normodyne -) 200 mg PO DAILY [facility] Last Admin: 11/23/16 09:03 Dose: 200 mg Lisinopril (Prinivil) 20 mg PO DAILY [facility] Last Admin: 11/23/16 09:03 Dose: 20 mg Pantoprazole Sodium (Protonix -) 40 mg PO DAILY [facility] Last Admin: 11/23/16 09:03 Dose: 40 mg Potassium Chloride (K-Dur -) 20 meq PO DAILY [facility] Last Admin: 11/23/16 09:02 Dose: 20 meq Sertraline HCl (Zoloft -) 50 mg PO DAILY [facility] Last Admin: 11/23/16 09:03 Dose: 50 mg Review of Systems Cardiovascular: As noted above Respiratory: denies: Cough or Sputum Production Gastrointestinal: denies: Nausea, Vomiting, Diarrhea, Constipation or Abdominal Discomfort Musculoskeletal: No Symptoms Reported Endocrine: No Symptoms Reported - Objective Vital Signs: Last Vital Signs Temp Pulse Resp BP Pulse Ox 98.6 F 98 H 18 181/91 93 L 11/24/16 08:58 11/24/16 08:58 11/24/16 08:58 11/24/16 08:58 11/23/16 21:00 Constitutional: No Distress Neck: Supple Negative JVD No Bruit Respiratory: Diminished Breath Sounds at the Bases Cardiovascular: S1 S2 Irregularly Irregular Grade 2/6 [id number] Gastrointestinal: Soft Benign Normal Bowel Sounds Ext: Trace Edema Labs: CBC, BMP 11/24/16 06:40 11/24/16 06:40 Assessment/Plan ASSESSMENT: 1. Recurrent epistaxis post left nares packing, resolved 2. Hypertension, not at goal 3. 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 CAD non-obstructive CAD angina pectoris demand ischemic injury 5. Mitral valve regurgitation 6. Aortic valve stenosis 7. Tricuspid valve regurgitation 8. Pulmonary HTN 9. Persistent atrial fibrillation [id number] 10. COPD 11. Diabetes mellitus 12. Hypercholesterolemia 13. Acute on CKD 14. Anemia PLAN: 1. Continue Labetalol and titrate dosage 2. Continue Amlodipine 3. Continue Prinivil and titrate dosage 4. Continue Lipitor 5. Continue Lasix 6. To resume Xarelto once hemostasis is achieved Maliha Blake.
[2016-11-24 07:58] LABS: BASOPHIL 0.8 % (0-2.0); EOSINOPHIL 4.7 % (0-4.5); MCH 27.4 pg (25.7-33.7); MEAN CELL VOLUME 82.8 fl (80-96); MEAN PLT VOLUME 8.7 fl (7.5-11.1); NEUTROPHILS 64.2 % (42.8-82.8); PLATELET COUNT 209 K/MM3 (134-434); RDW 16.3 % (11.6-15.6); WHITE BLOOD COUNT 4.8 K/mm3 (4.0-10.0)
[2016-11-24 08:19] LABS: ALBUMIN 2.8 g/dl (3.4-5.0); ANION GAP 8 (8-16); CALCIUM 8.7 mg/dL (8.5-10.1); CO2 30 mmol/L (21-32); CREATININE 1.1 mg/dL (0.55-1.02); GLUCOSE,RANDOM 90 mg/dL (74-106); SGOT/AST 39 U/L (15-37); SGPT/ALT 42 U/L (12-78)
[2016-11-24 08:21] LABS: ALK PHOS 99 U/L (45-117); BILIRUBIN,TOTAL 0.2 mg/dL (0.2-1.0); TOT PROT 6.2 g/dl (6.4-8.2)
[2016-11-24] MEDS ORDERED: PT OWN MED DRAWER 7, Y5N ONE ×3 (08:54→20:59)
[2016-11-24] MEDS: FUROSEMIDE 40 MG TABLET (FP) PO SCH (09:03)
[2016-11-24] MEDS: amLODIPine BESYLATE 5 MG TABLET (FP) PO SCH (09:03)
[2016-11-24] MEDS: SERTRALINE HCL 50 MG TABLET (FP) PO SCH (09:03)
[2016-11-24] MEDS: POTASSIUM CHLORIDE TABS 20 MEQ TABLET.ER (FP) PO SCH (09:03)
[2016-11-24] MEDS: PANTOPRAZOLE 40 MG TABLET (FP) PO SCH (09:03)
[2016-11-24] MEDS: FERROUS SO4 325 MG TABLET (FP) PO SCH (09:03)
[2016-11-24] MEDS: LABETALOL HCL 200 MG TABLET (FP) PO SCH ×3 (09:03→21:01)
[2016-11-24] MEDS: LISINOPRIL 20 MG TABLET (FP) PO SCH (09:03)
[2016-11-24] MEDS: BACITRACIN 15 GM TUBE TOPICAL OINTMENT TP SCH ×2 (09:04→21:01)
[2016-11-24] MEDS: ERTAPENEM SODIUM 1 GM in SODIUM CHLORIDE 50 ML IVPB SCH (09:04)
[2016-11-24] MEDS ORDERED: LISINOPRIL 20 MG TABLET (FP) PO SCH (09:16)
[2016-11-24] MEDS: ARFORMOTEROL TARTRATE 15 MCG/2 ML VIAL NEB SCH ×2 (10:39→21:40)
[2016-11-24 11:39] LABS: TROPONIN I 0.06 ng/ml (0.00-0.05)
[2016-11-24] MEDS ORDERED: INSULIN (NOVOLOG) ASPART 100 UNITS/ML 10ML VIAL ONE ×3 (12:00→21:00)
--- NOTE | 2016-11-24 12:26 | PN ---
Progress Note, Physician Chief Complaint: Epistaxis History of Present Illness: This is an 80yo woman with a PMH of PMH, CRF, CHF, COPD, anemia, afib on Xarelto , HTN, and chronic anemia who presented to the ED on 11/20/16 with recurrent epistaxis. During her hospital stay, she's had a cautory procedure and subsequently, had rhino rocket placed. Her nasal packing was removed yesterday without recurrent bleeding. - Current Medication List Current Medications: Active Medications Acetaminophen (Tylenol -) 1,000 mg PO TID PRN PRN Reason: pain Last Admin: 11/23/16 21:08 Dose: 1,000 mg Amlodipine Besylate (Norvasc -) 5 mg PO DAILY [facility] Last Admin: 11/24/16 09:03 Dose: 5 mg Arformoterol Tartrate (Brovana (Restricted To Pulmonology/Resp) -) 1 amp NEB BID [facility] Last Admin: 11/23/16 22:15 Dose: 1 amp Atorvastatin Calcium (Lipitor -) 20 mg PO HS [facility] Last Admin: 11/23/16 21:07 Dose: 20 mg Bacitracin (Bacitracin -) 1 applic TP BID [facility] Last Admin: 11/24/16 09:04 Dose: 1 applic Ergocalciferol (Drisdol -) 50,000 unit PO Tu@10 PK Ferrous Sulfate (Feosol -) 325 mg PO DAILY [facility] Last Admin: 11/24/16 09:03 Dose: 325 mg Furosemide (Lasix -) 80 mg PO DAILY [facility] Last Admin: 11/24/16 09:03 Dose: 80 mg Ertapenem 1 gm/ Sodium (Chloride) 50 mls @ 50 mls/hr IVPB DAILY [facility] PRN Reason: Protocol Last Admin: 11/24/16 09:04 Dose: 50 mls/hr Insulin Aspart (Novolog Vial Sliding Scale -) 1 vial SQ ACHS [facility] PRN Reason: Protocol Last Admin: 11/24/16 06:18 Dose: Not Given Insulin Detemir (Levemir Vial) 14 units SQ HS [facility] Last Admin: 11/23/16 21:07 Dose: 14 unit Labetalol HCl (Normodyne -) 200 mg PO BID [facility] Last Admin: 11/24/16 09:39 Dose: Not Given Lisinopril (Prinivil) 40 mg PO DAILY [facility] Last Admin: 11/24/16 10:15 Dose: 40 mg Pantoprazole Sodium (Protonix -) 40 mg PO DAILY [facility] Last Admin: 11/24/16 09:03 Dose: 40 mg Potassium Chloride (K-Dur -) 20 meq PO DAILY [facility] Last Admin: 11/24/16 09:03 Dose: 20 meq Rivaroxaban (Xarelto -) 15 mg PO DAILY@1800 PK Sertraline HCl (Zoloft -) 50 mg PO DAILY [facility] Last Admin: 11/24/16 09:03 Dose: 50 mg - Objective Vital Signs: Vital Signs Temperature 98.6 F 11/24/16 08:58 Pulse Rate 98 H 11/24/16 08:58 Respiratory Rate 18 11/24/16 08:58 Blood Pressure 181/91 11/24/16 08:58 O2 Sat by Pulse Oximetry (%) 93 L 11/24/16 09:00 Constitutional: Yes: Well Nourished, No Distress, Calm Eyes: Yes: WNL, Conjunctiva Clear HENT: Yes: WNL, Atraumatic, Normocephalic Neck: Yes: WNL, Supple, Trachea Midline. No: Lymphadenopathy, Thyromegaly Cardiovascular: Yes: WNL, Pulse Irregular, Murmur. No: Regular Rate and Rhythm Respiratory: Yes: WNL, Regular, CTA Bilaterally Gastrointestinal: Yes: WNL, Normal Bowel Sounds, Soft ...Rectal Exam: Yes: Deferred Genitourinary: Yes: WNL Musculoskeletal: Yes: Joint Stiffness Extremities: Yes: WNL Edema: No Peripheral Pulses WNL: Yes Peripheral Pulses: Left Radial: 2+, Right Radial: 2+, Left Doralis Pedis: 2+, Right Dorsalis Pedis: 2+ Integumentary: Yes: WNL Neurological: Yes: WNL, Alert, Oriented ...Motor Strength: WNL Labs: CBC, BMP 11/24/16 06:40 11/24/16 06:40 INR, PTT INR 1.86 (0.82-1.09) H 11/21/16 05:35
--- NOTE | 2016-11-24 13:08 | DS ---
Physical Exam: SUBJECTIVE: Patient seen and examined at bedside. OBJECTIVE: Vital Signs Period Temp Pulse Resp BP Sys/Mo Pulse Ox Last 24 Hr 97.9 F-99.3 F 75-98 18-20 148-184/68-91 93-93 PHYSICAL EXAM GENERAL: The patient is awake, alert, and fully oriented, in no acute distress. HEAD: Normal with no signs of trauma. EYES: PERRL, extraocular movements intact, sclera anicteric, conjunctiva clear. ENT: Ears normal, nares patent, oropharynx clear without exudates, moist mucous membranes. NECK: Trachea midline, full range of motion, supple. LUNGS: Breath sounds equal, clear to auscultation bilaterally, no wheezes, no crackles, no accessory muscle use. HEART: Irregular rhythm, S1, S2 appreciated. systolic 3+ murmur over left sternal border, no rub or gallop. ABDOMEN: Soft, nontender, nondistended, normoactive bowel sounds, no guarding, no rebound, no hepatosplenomegaly, no masses. EXTREMITIES: 2+ pulses, warm, well-perfused, no edema. Right knee maintained flexed due to prior surgery. NEUROLOGICAL: Cranial nerves II through XII grossly intact. Normal speech, gait not observed. PSYCH: Normal mood, normal affect. SKIN: Warm, dry, normal turgor, no rashes or lesions noted. LABS Laboratory Tests 11/20/16 11/24/16 11/24/16 11:30 06:40 06:40 WBC 4.8 Hgb 8.6 L Hct 26.0 L Plt Count 209 Sodium 142 Potassium 4.5 BUN 34 H 31 H Creatinine 1.5 H D 1.1 H Creatine Kinase Troponin I 11/24/16 10:35 WBC Hgb Hct Plt Count Sodium Potassium BUN Creatinine Creatine Kinase 21 L Troponin I 0.06 H Laboratory Tests 11/20/16 13:15 Urine Blood 3+ H Ur Leukocyte Esterase 3+ H Urine RBC 22 Urine WBC 99 Granular Casts 2 HOSPITAL COURSE: Date of Admission:11/23/16 Date of Discharge: 11/24/16 80yo woman with PMH of CAD, angina pectoris, diastolic CHF, MR, mild , TR, HTN , persistent Afib, DM, LP and COPD who presented to ED with recurrent epistaxis on AC. Pt also complained of chest pain at that time. Additionally, patient came in with a UTI. The patient received nasal packing which failed to resolve her bleeding, and so her Xarelto was held for the duration of her hospital stay. She received nasal cautory, which was unsuccessful and had rhinorocket placed, which ultimately resolved her bleeding. In the ED, the patient was found to have a UTI and sepsis with Leukocyte Esterase 3+, and 99 urine WBCs. Urine culture was positive for E. coli. She was treated with 3 days of Ertapenem 1gm daily. Sepsis and UTI have resolved, and the patient is no longer febrile. The patient remains in persistent Afib with CHADSVASC of 7 and will resume her Xarelto upon discharge. On admission and once during her stay, the patient complained of intermittent chest pain. EKGs on both occasions showed stable minimal ST changes , and troponins were only mildly elevated. ACS was considered unlikely. Discharge Summary Reason For Visit: UTI,ATRIAL FIB,ELEVATED TROPONIN Current Active Problems Aortic valve stenosis (Acute) Atrial fibrillation (Acute) Diabetes mellitus (Acute) Diastolic dysfunction (Acute) Elevated troponin (Acute) Epistaxis (Acute) HTN (hypertension) (Acute) Hypercholesterolemia (Acute) Mitral valve regurgitation (Acute) Tricuspid valve regurgitation (Acute) Condition: Stable - Instructions Referrals: Arvind Ravi MD [Primary Care Provider] - - Home Medications Comprehensive Discharge Medication List: Ambulatory Orders Acetaminophen [Tylenol] 1,000 mg PO TID PRN 07/02/16 Amlodipine Besylate [Norvasc -] 5 mg PO DAILY 07/02/16 Arformoterol Tartrate [Brovana] 15 mcg IH BID 07/02/16 Ergocalciferol (Vitamin D2) [Vitamin D2] 50,000 unit PO WEEKLY 07/02/16 Ferrous Sulfate 325 mg PO DAILY 07/02/16 Furosemide [Lasix] 80 mg PO DAILY 07/02/16 Insulin Glargine,Hum.rec.anlog [Lantus Solostar PEN (NF)] 14 units SQ HS Labetalol HCl [Normodyne -] 200 mg PO DAILY 07/02/16 Lisinopril [Prinivil] 20 mg PO DAILY 07/02/16 Omeprazole 40 mg PO DAILY 07/02/16 Potassium Chloride 20 meq PO DAILY 07/02/16 Repaglinide [Prandin] 1 mg PO TID 07/02/16 Sertraline HCl [Zoloft] 50 mg PO DAILY 07/02/16 Simvastatin [Zocor] 40 mg PO DAILY 07/02/16 Rivaroxaban [Xarelto -] 15 mg PO DAILY 11/20/16 - Discharge Referral Referred to [facility] No
--- NOTE | 2016-11-24 14:54 | EKG ---
Test Reason : Blood Pressure : / mmHG Vent. Rate : 072 BPM Atrial Rate : 375 BPM P-R Int : 000 ms QRS Dur : 096 ms QT Int : 398 ms P-R-T Axes : 000 -48 029 degrees QTc Int : 435 ms ATRIAL FIBRILLATION LEFT ANTERIOR FASCICULAR BLOCK T WAVE ABNORMALITY, CONSIDER ANTERIOR ISCHEMIA ABNORMAL ECG WHEN COMPARED WITH ECG OF 20-NOV-2016 11:51, NO SIGNIFICANT CHANGE WAS FOUND Confirmed by CULLEN DE LA CRUZ, LA ([id number]) on 11/24/2016 2:54:45 PM Referred By: Albino PERALTA Confirmed By:LA BERMAN MD
--- NOTE | 2016-11-24 15:29 | PN ---
Teaching Attending Note Name of Resident: Jose Jaffe ATTENDING PHYSICIAN STATEMENT I saw and evaluated the patient. I reviewed the resident's note and discussed the case with the resident. I agree with the resident's findings and plan as documented. SUBJECTIVE: no fever ro chills, feels better . has no CP ro ABd pain . no nose bleed OBJECTIVE: NAD CV: irreg irreg Lungs: CTAB Ext: no edema ASSESSMENT AND PLAN: 80 y/o lady with h/o CAD , angina pectoris, diastolic CHF , MR, mild , ,TR, HTN, persistent A fib , DM , LP and COPD , who presented recurrent epistaxis . 1- Epistaxis : stopped now s/p removal of packing with no recurrence resume xarelto today at home dose per Cr clearance ( 15 mg ) bacitracin in nose BID x 2 weeks f/u with ENT at [facility] 2- Persistent A fib: CHADSVASC of 7. resume AC 3- Atypical CP : resolved . 4-Complicated UTI: no fever or leukocytosis . dc ertapenemand start Augmentin x 2 more days d/w Dr. Tera cardenas :Ct home CM will arrange for resuming services.
--- NOTE | 2016-11-24 16:42 | DS ---
Physical Exam: SUBJECTIVE: Patient seen and examined OBJECTIVE:ds Vital Signs Period Temp Pulse Resp BP Sys/Mo Pulse Ox Last 24 Hr 97.9 F-99.3 F 75-98 18-20 130-184/68-91 93-93 PHYSICAL EXAM GENERAL: The patient is awake, alert, and fully oriented, in no acute distress. HEAD: Normal with no signs of trauma. EYES: PERRL, extraocular movements intact, sclera anicteric, conjunctiva clear. ENT: Ears normal, nares patent, oropharynx clear without exudates, moist mucous membranes. NECK: Trachea midline, full range of motion, supple. LUNGS: Breath sounds equal, clear to auscultation bilaterally, no wheezes, no crackles, no accessory muscle use. HEART: Regular rate and rhythm, S1, S2 without murmur, rub or gallop. ABDOMEN: Soft, nontender, nondistended, normoactive bowel sounds, no guarding, no rebound, no hepatosplenomegaly, no masses. EXTREMITIES: 2+ pulses, warm, well-perfused, no edema. NEUROLOGICAL: Cranial nerves II through XII grossly intact. Normal speech, gait not observed. PSYCH: Normal mood, normal affect. SKIN: Warm, dry, normal turgor, no rashes or lesions noted. LABS Laboratory Results - last 24 hr 11/23/16 11/23/16 11/24/16 16:36 20:53 05:37 WBC RBC Hgb Hct MCV MCHC RDW Plt Count MPV Neutrophils % Lymphocytes % Monocytes % Eosinophils % Basophils % Sodium Potassium Chloride Carbon Dioxide Anion Gap BUN Creatinine Creat Clearance w eGFR POC Glucometer 193 173 89 Random Glucose Calcium Total Bilirubin AST ALT Alkaline Phosphatase Creatine Kinase Troponin I Total Protein Albumin 11/24/16 11/24/16 11/24/16 06:40 06:40 10:35 WBC 4.8 RBC 3.14 L Hgb 8.6 L Hct 26.0 L MCV 82.8 MCHC 33.0 RDW 16.3 H Plt Count 209 MPV 8.7 Neutrophils % 64.2 Lymphocytes % 18.4 Monocytes % 11.9 H Eosinophils % 4.7 H D Basophils % 0.8 Sodium 142 Potassium 4.5 Chloride 104 Carbon Dioxide 30 Anion Gap 8 BUN 31 H Creatinine 1.1 H Creat Clearance w eGFR 47.67 POC Glucometer Random Glucose 90 Calcium 8.7 Total Bilirubin 0.2 D AST 39 H ALT 42 Alkaline Phosphatase 99 Creatine Kinase 21 L Troponin I 0.06 H Total Protein 6.2 L Albumin 2.8 L 11/24/16 11:54 WBC RBC Hgb Hct MCV MCHC RDW Plt Count MPV Neutrophils % Lymphocytes % Monocytes % Eosinophils % Basophils % Sodium Potassium Chloride Carbon Dioxide Anion Gap BUN Creatinine Creat Clearance w eGFR POC Glucometer 175 Random Glucose Calcium Total Bilirubin AST ALT Alkaline Phosphatase Creatine Kinase Troponin I Total Protein Albumin HOSPITAL COURSE: Date of Admission:11/23/16 Date of Discharge: 11/24/16 Discharge Summary Reason For Visit: UTI,ATRIAL FIB,ELEVATED TROPONIN Current Active Problems Atrial fibrillation (Acute) Elevated troponin (Acute) Epistaxis (Acute) HTN (hypertension) (Acute) Condition: Stable - Instructions Diet, Activity, Other Instructions: -Please avoid touching your nose. -Do not blow your nose, and open your mouth when sneezing. -Bacitracin ointment should be applied to moisten the left nostril twice per day for 2 weeks. -Please follow up with Dr. Cash according to the previous appt you made in the office. There have been changes to your blood pressure medications. The new dose for Labetalol is 200 mg TWICE daily. The new dose for Lisinopril is 40 mg daily You need to complete your antibiotic course. Take Augmentin 1 tablet every 12 hours for 2 days. Drink plenty of water. If you develop chest pain, trouble breathing, fever, or any new symptoms, please come back to the hospital. Please follow up with your primary care physician, Dr. Ravi. Referrals: Arvind Ravi MD [Primary Care Provider] - 1 Week Clarke Cash MD [Staff Physician] - Disposition: HOME - Home Medications Comprehensive Discharge Medication List: Ambulatory Orders Acetaminophen [Tylenol] 1,000 mg PO TID PRN 07/02/16 Amlodipine Besylate [Norvasc -] 5 mg PO DAILY 07/02/16 Arformoterol Tartrate [Brovana] 15 mcg IH BID 07/02/16 Ergocalciferol (Vitamin D2) [Vitamin D2] 50,000 unit PO WEEKLY 07/02/16 Ferrous Sulfate 325 mg PO DAILY 07/02/16 Furosemide [Lasix] 80 mg PO DAILY 07/02/16 Insulin Glargine,Hum.rec.anlog [Lantus Solostar PEN (NF)] 14 units SQ HS Omeprazole 40 mg PO DAILY 07/02/16 Potassium Chloride 20 meq PO DAILY 07/02/16 Repaglinide [Prandin] 1 mg PO TID 07/02/16 Sertraline HCl [Zoloft] 50 mg PO DAILY 07/02/16 Simvastatin [Zocor] 40 mg PO DAILY 07/02/16 Rivaroxaban [Xarelto -] 15 mg PO DAILY 11/20/16 Amox-Tr/K Cl [Augmentin - 875Mg Tablet] 1 tab PO BID #14 tablet 11/24/16 Bacitracin - [Bacitracin Topical Ointment -] 1 applic TP BID #1 tube 11/24/16 Insulin (Levemir) [Levemir Vial] 14 units SQ HS ml 11/24/16 Labetalol HCl [Normodyne -] 200 mg PO BID #14 tablet 11/24/16 Lisinopril [Prinivil] 40 mg PO DAILY #7 tablet 11/24/16 - Discharge Referral Referred to [facility] Med [facility] No
--- NOTE | 2016-11-24 17:26 | PN ---
Physical Exam: SUBJECTIVE: Patient seen and examined at bedside. Pt complained of intermittent chest pain associated with sob lasting a few seconds at a time. No other complaints. Pt denies headache, abd pain, n/v/d. OBJECTIVE: Vital Signs Period Temp Pulse Resp BP Sys/Mo Pulse Ox Last 24 Hr 97.9 F-99.3 F 75-98 18-20 130-184/68-91 93-93 GENERAL: The patient is awake, alert, and fully oriented, in no acute distress. HEAD: Normal with no signs of trauma. EYES: PERRL, extraocular movements grossly intact, sclera anicteric, conjunctiva clear. No ptosis. ENT: Ears normal, nares patent, oropharynx clear without exudates, moist mucous membranes. NECK: Trachea midline, full range of motion, supple. No carotid bruits, no thyromegaly. LUNGS: Breath sounds equal, clear to auscultation bilaterally, no wheezes, no crackles, no accessory muscle use. HEART: irregular rhythm, S1, S2, 3/6 Systolic murmur heard over the 2nd left intercostal space, no rubs or gallops. ABDOMEN: Soft, nontender, nondistended, normoactive bowel sounds, no guarding, no rebound, no hepatosplenomegaly, no masses. EXTREMITIES: 2+ pulses, warm, well-perfused, no edema. Right knee held in flexion due to pain from prior surgery. NEUROLOGICAL: Cranial nerves II through XII grossly intact. Normal speech, gait not observed. PSYCH: Normal mood, normal affect. SKIN: Warm, dry, normal turgor, no rashes or lesions noted Laboratory Results - last 24 hr 11/23/16 11/24/16 11/24/16 20:53 05:37 06:40 WBC 4.8 RBC 3.14 L Hgb 8.6 L Hct 26.0 L MCV 82.8 MCHC 33.0 RDW 16.3 H Plt Count 209 MPV 8.7 Neutrophils % 64.2 Lymphocytes % 18.4 Monocytes % 11.9 H Eosinophils % 4.7 H D Basophils % 0.8 Sodium Potassium Chloride Carbon Dioxide Anion Gap BUN Creatinine Creat Clearance w eGFR POC Glucometer 173 89 Random Glucose Calcium Total Bilirubin AST ALT Alkaline Phosphatase Creatine Kinase Troponin I Total Protein Albumin 07/01/17 07/01/17 07/01/17 06:40 10:35 11:54 WBC RBC Hgb Hct MCV MCHC RDW Plt Count MPV Neutrophils % Lymphocytes % Monocytes % Eosinophils % Basophils % Sodium 142 Potassium 4.5 Chloride 104 Carbon Dioxide 30 Anion Gap 8 BUN 31 H Creatinine 1.1 H Creat Clearance w eGFR 47.67 POC Glucometer 175 Random Glucose 90 Calcium 8.7 Total Bilirubin 0.2 D AST 39 H ALT 42 Alkaline Phosphatase 99 Creatine Kinase 21 L Troponin I 0.06 H Total Protein 6.2 L Albumin 2.8 L Active Medications Generic Name Dose Route Start Last Admin Trade Name Freq PRN Reason Stop Dose Admin Acetaminophen 1,000 mg 11/22/16 09:43 11/23/16 21:08 Tylenol - PO 1,000 mg TID PRN Administration pain Amlodipine Besylate 5 mg 11/21/16 10:00 11/24/16 09:03 Norvasc - PO 5 mg DAILY PK Administration Amlodipine Besylate 5 mg 11/24/16 17:04 Norvasc - PO 11/24/16 17:05 ONCE ONE Arformoterol Tartrate 1 amp 11/20/16 22:00 11/24/16 10:39 Brovana (Restricted To Pulmonology/Resp) - NEB 1 amp BID PK Administration Atorvastatin Calcium 20 mg 11/20/16 22:00 11/23/16 21:07 Lipitor - PO 20 mg HS PK Administration Bacitracin 1 applic 11/23/16 22:00 11/24/16 09:04 Bacitracin - TP 1 applic BID PK Administration Ergocalciferol 50,000 unit 11/27/16 10:00 Drisdol - PO Tu@10 PK Ferrous Sulfate 325 mg 11/21/16 10:00 11/24/16 09:03 Feosol - PO 325 mg DAILY PK Administration Furosemide 80 mg 11/21/16 10:00 11/24/16 09:03 Lasix - PO 80 mg DAILY PK Administration Ertapenem 1 gm/ Sodium 50 mls @ 50 mls/hr 11/22/16 17:45 11/24/16 09:04 Chloride IVPB 50 mls/hr DAILY PK Administration Protocol Insulin Aspart 1 vial 11/20/16 22:00 11/24/16 17:00 Novolog Vial Sliding Scale - SQ Not Given ACHS PK Protocol Insulin Detemir 14 units 11/20/16 22:00 11/23/16 21:07 Levemir Vial SQ 14 unit HS PK Administration Labetalol HCl 200 mg 11/24/16 10:00 11/24/16 09:39 Normodyne - PO Not Given BID PK Lisinopril 40 mg 11/24/16 09:16 11/24/16 10:15 Prinivil PO 40 mg DAILY PK Administration Pantoprazole Sodium 40 mg 11/21/16 10:00 11/24/16 09:03 Protonix - PO 40 mg DAILY PK Administration Potassium Chloride 20 meq 11/21/16 10:00 11/24/16 09:03 K-Dur - PO 20 meq DAILY PK Administration Rivaroxaban 15 mg 11/25/16 18:00 Xarelto - PO DAILY@1800 PK Sertraline HCl 50 mg 11/21/16 10:00 11/24/16 09:03 Zoloft - PO 50 mg DAILY PK Administration ASSESSMENT/PLAN: 80 y/o F with PMH of CAD, angina pectoris, diastolic heart failure , MR, ,TR, HTN, persistent Afib, DM, LP and COPD who presented recurrent epistaxis. #HTN -BP spiked to 186/77 at 17:41 -Give 5mg Norvasc PO -f/u BP in am. # Epistaxis: resolved -nasal packing removed with no recurrence of bleeding -resume Xarelto 15mg PO daily today -Bacitracin BID per nares x 2 weeks -f/u with ENT ([place]) following d/c # Persistent Afib -CHADSVASC 7 -Resume Xarelto #Atypical chest pain -pain has resolved -EKG showed stable minor ST changes. Also showed Afib, poor R progression, L axis -Tn elevated at .06. stable -Pt had a similar episode previously. Unlikely to be cardiac in nature #Complicated UTI with Sepsis -Presently afebrile. WBC 4.8 -d/c Ertapenem. Start Augmentin 875 mg BID -ID (Dr. Haley) consult appreciated. #DVT ppx -Xarelto #Dispo -Must coordinate with home health / patient's daughter Visit type - Emergency Visit Emergency Visit: No - New Patient This patient is new to me today: Yes Date on this admission: 11/24/16 - Critical Care Critical Care patient: No - Discharge Referral Referred to [facility] Yes
--- NOTE | 2016-11-24 17:44 | PN ---
Progress Note, Physician History of Present Illness: says she feels better today no complaints - Current Medication List Current Medications: Active Medications Acetaminophen (Tylenol -) 1,000 mg PO TID PRN PRN Reason: pain Last Admin: 11/23/16 21:08 Dose: 1,000 mg Amlodipine Besylate (Norvasc -) 5 mg PO DAILY [facility] Last Admin: 11/24/16 09:03 Dose: 5 mg Arformoterol Tartrate (Brovana (Restricted To Pulmonology/Resp) -) 1 amp NEB BID [facility] Last Admin: 11/24/16 10:39 Dose: 1 amp Atorvastatin Calcium (Lipitor -) 20 mg PO HS [facility] Last Admin: 11/23/16 21:07 Dose: 20 mg Bacitracin (Bacitracin -) 1 applic TP BID [facility] Last Admin: 11/24/16 09:04 Dose: 1 applic Ergocalciferol (Drisdol -) 50,000 unit PO Tu@10 [facility] Ferrous Sulfate (Feosol -) 325 mg PO DAILY [facility] Last Admin: 11/24/16 09:03 Dose: 325 mg Furosemide (Lasix -) 80 mg PO DAILY [facility] Last Admin: 11/24/16 09:03 Dose: 80 mg Ertapenem 1 gm/ Sodium (Chloride) 50 mls @ 50 mls/hr IVPB DAILY [facility] PRN Reason: Protocol Last Admin: 11/24/16 09:04 Dose: 50 mls/hr Insulin Aspart (Novolog Vial Sliding Scale -) 1 vial SQ ACHS [facility] PRN Reason: Protocol Last Admin: 11/24/16 17:00 Dose: Not Given Insulin Detemir (Levemir Vial) 14 units SQ HS [facility] Last Admin: 11/23/16 21:07 Dose: 14 unit Labetalol HCl (Normodyne -) 200 mg PO BID [facility] Last Admin: 11/24/16 09:39 Dose: Not Given Lisinopril (Prinivil) 40 mg PO DAILY [facility] Last Admin: 11/24/16 10:15 Dose: 40 mg Pantoprazole Sodium (Protonix -) 40 mg PO DAILY [facility] Last Admin: 11/24/16 09:03 Dose: 40 mg Potassium Chloride (K-Dur -) 20 meq PO DAILY [facility] Last Admin: 11/24/16 09:03 Dose: 20 meq Rivaroxaban (Xarelto -) 15 mg PO DAILY@1800 [facility] Sertraline HCl (Zoloft -) 50 mg PO DAILY [facility] Last Admin: 11/24/16 09:03 Dose: 50 mg - Objective Vital Signs: Vital Signs Temperature 98.2 F 11/24/16 17:41 Pulse Rate 72 11/24/16 17:41 Respiratory Rate 18 11/24/16 17:41 Blood Pressure 186/77 11/24/16 17:41 O2 Sat by Pulse Oximetry (%) 93 L 11/24/16 09:00 Constitutional: Yes: No Distress, Calm Cardiovascular: Yes: S1, S2 Respiratory: Yes: Regular, CTA Bilaterally Gastrointestinal: Yes: Normal Bowel Sounds, Soft Musculoskeletal: Yes: WNL Extremities: Yes: WNL Neurological: Yes: Alert, Oriented Psychiatric: Yes: Alert Labs: CBC, BMP 11/24/16 06:40 11/24/16 06:40 INR, PTT INR 1.86 (0.82-1.09) H 11/21/16 05:35 Assessment/Plan Problem List - Problems (1) Aortic valve stenosis Code(s): I35.0 - NONRHEUMATIC AORTIC (VALVE) STENOSIS Qualifiers: Qualified Code(s): I35.0 - Nonrheumatic aortic (valve) stenosis (2) Atrial fibrillation Code(s): I48.91 - UNSPECIFIED ATRIAL FIBRILLATION Qualifiers: Qualified Code(s): I48.1 - Persistent atrial fibrillation (3) Diabetes mellitus Code(s): E11.9 - TYPE 2 DIABETES MELLITUS WITHOUT COMPLICATIONS Qualifiers: Qualified Code(s): E11.9 - Type 2 diabetes mellitus without complications (4) Diastolic dysfunction Code(s): I51.9 - HEART DISEASE, UNSPECIFIED (5) Epistaxis Code(s): R04.0 - EPISTAXIS (6) HTN (hypertension) Code(s): I10 - ESSENTIAL (PRIMARY) HYPERTENSION Qualifiers: Qualified Code(s): I10 - Essential (primary) hypertension (7) Hypercholesterolemia Code(s): E78.00 - PURE HYPERCHOLESTEROLEMIA, UNSPECIFIED (8) Mitral valve regurgitation Code(s): I34.0 - NONRHEUMATIC MITRAL (VALVE) INSUFFICIENCY Qualifiers: Qualified Code(s): I34.0 - Nonrheumatic mitral (valve) insufficiency (9) Tricuspid valve regurgitation Code(s): I07.1 - RHEUMATIC TRICUSPID INSUFFICIENCY Qualifiers: Qualified Code(s): I36.1 - Nonrheumatic tricuspid (valve) insufficiency (10) COPD (chronic obstructive pulmonary disease) Code(s): J44.9 - CHRONIC OBSTRUCTIVE PULMONARY DISEASE, UNSPECIFIED Qualifiers : Qualified Code(s): J44.9 - Chronic obstructive pulmonary disease, unspecified 11 uti plan continue current mgmt can switch to oral augmentin
[2016-11-24] MEDS ORDERED: RIVAROXABAN 15 MG TABLET PO SCH (19:00)
[2016-11-24] MEDS: INSULIN DETEMIR 100 UNITS/ML MDV SQ SCH (21:01)
[2016-11-24] MEDS: ATORVASTATIN CA 20 MG TABLET (FP) PO SCH (21:01)
[2016-11-24] MEDS: ACETAMINOPHEN 500 MG TABLET (FP) PO PRN (21:01)
[2016-11-25 06:03] VITALS: TEMP 98
[2016-11-25] MEDS: INSULIN SLIDING SCALE (NOVOLOG) 1 VIAL SQ SCH (06:20)
--- NOTE | 2016-11-25 07:56 | PN ---
Progress Note (short form) - Note Progress Note: Chief Complaint: Events noted, notes reviewed, denies any chest pain or dyspnea , denies any further epistaxis, remains hypertensive History of Present Illness: Seen and examined on telemetry. Events noted, notes reviewed, denies any chest pain or dyspnea, denies any further epistaxis, remains hypertensive Current Medications: Current Medications Acetaminophen (Tylenol -) 1,000 mg PO TID PRN PRN Reason: pain Last Admin: 11/24/16 21:01 Dose: 1,000 mg Amlodipine Besylate (Norvasc -) 5 mg PO DAILY [facility] Last Admin: 11/24/16 09:03 Dose: 5 mg Arformoterol Tartrate (Brovana (Restricted To Pulmonology/Resp) -) 1 amp NEB BID [facility] Last Admin: 11/24/16 21:40 Dose: 1 amp Atorvastatin Calcium (Lipitor -) 20 mg PO HS [facility] Last Admin: 11/24/16 21:01 Dose: 20 mg Bacitracin (Bacitracin -) 1 applic TP BID [facility] Last Admin: 11/24/16 21:01 Dose: 1 applic Ergocalciferol (Drisdol -) 50,000 unit PO Tu@10 [facility] Ferrous Sulfate (Feosol -) 325 mg PO DAILY [facility] Last Admin: 11/24/16 09:03 Dose: 325 mg Furosemide (Lasix -) 80 mg PO DAILY [facility] Last Admin: 11/24/16 09:03 Dose: 80 mg Ertapenem 1 gm/ Sodium (Chloride) 50 mls @ 50 mls/hr IVPB DAILY [facility] PRN Reason: Protocol Last Admin: 11/24/16 09:04 Dose: 50 mls/hr Insulin Aspart (Novolog Vial Sliding Scale -) 1 vial SQ ACHS [facility] PRN Reason: Protocol Last Admin: 11/25/16 06:20 Dose: Not Given Insulin Detemir (Levemir Vial) 14 units SQ HS [facility] Last Admin: 11/24/16 21:01 Dose: 14 unit Labetalol HCl (Normodyne -) 200 mg PO BID [facility] Last Admin: 11/24/16 21:01 Dose: 200 mg Lisinopril (Prinivil) 40 mg PO DAILY [facility] Last Admin: 11/24/16 10:15 Dose: 40 mg Pantoprazole Sodium (Protonix -) 40 mg PO DAILY [facility] Last Admin: 11/24/16 09:03 Dose: 40 mg Potassium Chloride (K-Dur -) 20 meq PO DAILY [facility] Last Admin: 11/24/16 09:03 Dose: 20 meq Rivaroxaban (Xarelto -) 15 mg PO DAILY@1800 [facility] Last Admin: 11/24/16 21:52 Dose: 15 mg Sertraline HCl (Zoloft -) 50 mg PO DAILY [facility] Last Admin: 11/24/16 09:03 Dose: 50 mg Review of Systems Cardiovascular: As noted above Respiratory: denies: Cough or Sputum Production Gastrointestinal: denies: Nausea, Vomiting, Diarrhea, Constipation or Abdominal Discomfort Musculoskeletal: No Symptoms Reported Endocrine: No Symptoms Reported - Objective Vital Signs: Last Vital Signs Temp Pulse Resp BP Pulse Ox 98 F 68 18 140/61 100 11/25/16 06:00 11/25/16 06:00 11/25/16 06:00 11/25/16 06:00 11/24/16 21:00 Constitutional: No Distress Neck: Supple Negative JVD No Bruit Respiratory: Clear to A&P Bilaterally Cardiovascular: S1 S2 Irregularly Irregular Grade 2/6 JAZMYN Gastrointestinal: Soft Benign Normal Bowel Sounds Ext: Trace Edema Labs: Blood test from AM pending Assessment/Plan ASSESSMENT: 1. Recurrent epistaxis post left nares packing, resolved 2. Hypertension, not at goal 3. 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 CAD non-obstructive CAD angina pectoris demand ischemic injury 5. Persistent atrial fibrillation [id number] 6. Mitral valve regurgitation 7. Aortic valve stenosis 8. Tricuspid valve regurgitation 9. Pulmonary HTN 10. Diabetes mellitus 11. Hypercholesterolemia 13. COPD 14. Acute on CKD 15. Anemia PLAN: 1. Continue Labetalol and titrate dosage 2. Continue Amlodipine and titrate dosage 3. Continue Prinivil and titrate dosage 4. Continue Lipitor 5. Continue Lasix 6. Continue Xarelto with close monitoring of CBC Maliha Blake.
[2016-11-25 07:59] LABS: BASOPHIL 0.6 % (0-2.0); EOSINOPHIL 4.6 % (0-4.5); MCH 27.2 pg (25.7-33.7); MCHC 32.9 g/dl (32.0-36.0); MEAN CELL VOLUME 82.6 fl (80-96); MEAN PLT VOLUME 8.4 fl (7.5-11.1); NEUTROPHILS 61.2 % (42.8-82.8); PLATELET COUNT 248 K/MM3 (134-434); RDW 16.4 % (11.6-15.6); WHITE BLOOD COUNT 5.6 K/mm3 (4.0-10.0)
[2016-11-25 08:01] LABS: ANION GAP 8 (8-16); CALCIUM 8.8 mg/dL (8.5-10.1); CO2 32 mmol/L (21-32); CREATININE 1.1 mg/dL (0.55-1.02); GLUCOSE,RANDOM 82 mg/dL (74-106)
[2016-11-25] MEDS ORDERED: AMOX TR/POT CLAV 875MG/125MG TABLETS (FP) PO SCH (08:30)
[2016-11-25] MEDS: SERTRALINE HCL 50 MG TABLET (FP) PO SCH (09:38)
[2016-11-25] MEDS: FERROUS SO4 325 MG TABLET (FP) PO SCH (09:38)
[2016-11-25] MEDS: FUROSEMIDE 40 MG TABLET (FP) PO SCH (09:38)
[2016-11-25] MEDS: amLODIPine BESYLATE 5 MG TABLET (FP) PO SCH (09:38)
[2016-11-25] MEDS: POTASSIUM CHLORIDE TABS 20 MEQ TABLET.ER (FP) PO SCH (09:38)
[2016-11-25] MEDS: PANTOPRAZOLE 40 MG TABLET (FP) PO SCH (09:38)
[2016-11-25] MEDS: BACITRACIN 15 GM TUBE TOPICAL OINTMENT TP SCH (09:39)
[2016-11-25] MEDS ORDERED: LABETALOL HCL 200 MG TABLET (FP) PO SCH (10:00)
[2016-11-25] MEDS ORDERED: LISINOPRIL 20 MG TABLET (FP) PO SCH (10:00)
[2016-11-25 12:10] VITALS: BP 134/60; PULSE 72
--- NOTE | 2016-11-25 14:18 | PN ---
Teaching Attending Note Name of Resident: Monica Carey ATTENDING PHYSICIAN STATEMENT I saw and evaluated the patient. I reviewed the resident's note and discussed the case with the resident. I agree with the resident's findings and plan as documented. SUBJECTIVE: no fever or chills , no bleed OBJECTIVE: NAD CV: irreg irreg Lungs: CTAB Ext: no edema ASSESSMENT AND PLAN: 80 y/o lady with h/o CAD , angina pectoris, diastolic CHF , MR, mild , ,TR, HTN, persistent A fib , DM , LP and COPD , who presented recurrent epistaxis . 1- Epistaxis : stopped now s/p removal of packing with no recurrence continue xarelto bacitracin in nose BID x 2 weeks f/u with ENT at ma 2- Persistent A fib: CHADSVASC of 7. cont xarelto 3- Atypical CP : resolved . 4-Complicated UTI: no fever or leukocytosis . Augmentin x 2 more days 5- HTN: dose of labetalol increased this am to 400 BID . pt was dc on 200 BID . prescription of 400 BID was sent to pharmacy. will call pt and inform her. dc home
[2016-11-25] MEDS ORDERED: RIVAROXABAN 15 MG TABLET PO SCH (18:00)
--- NOTE | 2016-11-25 18:00 | DS ---
Physical Exam: OBJECTIVE: Vital Signs Period Temp Pulse Resp BP Sys/Mo Pulse Ox Last 24 Hr 98 F-98.3 F 60-82 18-18 134-192/60-86 100-100 LABS Laboratory Results - last 24 hr 11/24/16 11/25/16 11/25/16 20:33 06:15 06:20 WBC 5.6 RBC 3.11 L Hgb 8.5 L Hct 25.7 L MCV 82.6 MCHC 32.9 RDW 16.4 H Plt Count 248 MPV 8.4 Neutrophils % 61.2 Lymphocytes % 22.5 D Monocytes % 11.1 H Eosinophils % 4.6 H Basophils % 0.6 Sodium Potassium Chloride Carbon Dioxide Anion Gap BUN Creatinine POC Glucometer 215 89 Random Glucose Calcium 11/25/16 06:20 WBC RBC Hgb Hct MCV MCHC RDW Plt Count MPV Neutrophils % Lymphocytes % Monocytes % Eosinophils % Basophils % Sodium 142 Potassium 4.6 Chloride 102 Carbon Dioxide 32 Anion Gap 8 BUN 29 H Creatinine 1.1 H POC Glucometer Random Glucose 82 Calcium 8.8 HOSPITAL COURSE: Date of Admission:11/23/16 Date of Discharge: 11/24/16 This discharge summary is for 11/24/2016 Patient is a 80 year old lady with h/o CAD , angina pectoris, diastolic CHF , MR , mild , ,TR, HTN, persistent A fib , DM , LP and COPD , who presented with recurrent epistaxis . # Epistaxis- stopped bleeding now,s/p removal of packing with no recurrence . continue xarelto bacitracin in nose BID x 2 weeks . F/up with ENT upon discharge. #Persistent A fib-CHADSVASC of 7. Cont xarelto # Atypical chest pain- resolved . # Complicated UTI-no fever or leukocytosis. Augmentin x 2 more days # HTN- dose of labetalol increased to 400mg BID . Patient was discharged on 200 BID . Prescription of 400 BID was sent to pharmacy. Call placed to the patient , spoke with the daughter (Ms. Charisma Sanchez) and informed about the dosage change. She mentioned that the pharmacy closed today so she will pick it up tomorrow. Plan of care explained to the patient and her daughter. They verbalized understanding. Case discussed with Dr. Johnson. Minutes to complete discharge: 45 Discharge Summary Reason For Visit: UTI,ATRIAL FIB,ELEVATED TROPONIN Current Active Problems Elevated troponin (Acute) Epistaxis (Acute) HTN (hypertension) (Acute) Atrial fibrillation (Chronic) Condition: Stable - Instructions Diet, Activity, Other Instructions: -Please avoid touching your nose. -Do not blow your nose, and open your mouth when sneezing. -Bacitracin ointment should be applied to moisten the left nostril twice per day for 2 weeks. -Please follow up with Dr. Cash according to the previous appt you made in the office. There have been changes to your blood pressure medications. The new dose for Labetalol is 200 mg TWICE daily. The new dose for Lisinopril is 40 mg daily You need to complete your antibiotic course. Take Augmentin 1 tablet every 12 hours for 2 days. Drink plenty of water. If you develop chest pain, trouble breathing, fever, or any new symptoms, please come back to the hospital. Please follow up with your primary care physician, Dr. Ravi. follow with Dr. Cline , from cardiology or your own heart doctor Referrals: Arvind Ravi MD [Primary Care Provider] - 1 Week Gus Cline MD [Staff Physician] - Clarke Cash MD [Staff Physician] - Disposition: VNS/HOME HEALTH CARE - Home Medications Comprehensive Discharge Medication List: Ambulatory Orders Acetaminophen [Tylenol] 1,000 mg PO TID PRN 07/02/16 Amlodipine Besylate [Norvasc -] 5 mg PO DAILY 07/02/16 Arformoterol Tartrate [Brovana] 15 mcg IH BID 07/02/16 Ergocalciferol (Vitamin D2) [Vitamin D2] 50,000 unit PO WEEKLY 07/02/16 Ferrous Sulfate 325 mg PO DAILY 07/02/16 Furosemide [Lasix] 80 mg PO DAILY 07/02/16 Omeprazole 40 mg PO DAILY 07/02/16 Potassium Chloride 20 meq PO DAILY 07/02/16 Repaglinide [Prandin] 1 mg PO TID 07/02/16 Sertraline HCl [Zoloft] 50 mg PO DAILY 07/02/16 Simvastatin [Zocor] 40 mg PO DAILY 07/02/16 Rivaroxaban [Xarelto -] 15 mg PO DAILY 11/20/16 Amox-Tr/K Cl [Augmentin - 875Mg Tablet] 1 tab PO BID #14 tablet 11/24/16 Bacitracin - [Bacitracin Topical Ointment -] 1 applic TP BID #1 tube 11/24/16 Insulin (Levemir) [Levemir Vial] 14 units SQ HS ml 11/24/16 Lisinopril [Prinivil] 40 mg PO DAILY #7 tablet 11/24/16 Labetalol HCl [Normodyne -] 400 mg PO BID #90 tablet 11/25/16 This patient is new to me today: No Emergency Visit: Yes ED Registration Date: 11/23/16 Care time: The patient presented to the Emergency Department on the above date and was hospitalized for further evaluation of their emergent condition. Critical Care patient: No - Discharge Referral Referred to [facility] No
[2016-11-27] MEDS ORDERED: ERGOCALCIFEROL (VITAMIN D2) 50,000 UNIT CAPSULE (FP) PO SCH (10:00)
== END 2016-11-25 10:24 | disposition home health service (06) | DRG 872 ==
LOC: JER 10:38 → JERBED 14:50 → J4S 17:20 → OBSVTOIN 11-23 15:32
PROVIDERS: ADMIT Internal Medicine; ATTEND Internal Medicine
PROC: 2Y41X5Z Packing of Nasal Region using Packing Material (ICD-10-PCS; principal; 2016-11-21)
DX: A41.9 Sepsis, unspecified organism (principal); N39.0 Urinary tract infection, site not specified; I48.1 Persistent atrial fibrillation; I50.32 Chronic diastolic (congestive) heart failure; I13.0 Hypertensive heart and chronic kidney disease with heart failure and stage 1 through stage 4 chronic kidney disease, or unspecified chronic kidney disease; R04.0 Epistaxis; D64.9 Anemia, unspecified; E78.5 Hyperlipidemia, unspecified; J44.9 Chronic obstructive pulmonary disease, unspecified; K21.9 Gastro-esophageal reflux disease without esophagitis; R07.89 Other chest pain; I25.119 Atherosclerotic heart disease of native coronary artery with unspecified angina pectoris; I34.0 Nonrheumatic mitral (valve) insufficiency; I35.1 Nonrheumatic aortic (valve) insufficiency; I36.1 Nonrheumatic tricuspid (valve) insufficiency; I27.2 Other secondary pulmonary hypertension; E11.22 Type 2 diabetes mellitus with diabetic chronic kidney disease; N18.9 Chronic kidney disease, unspecified
CPT/HCPCS: 36415; 71010-TC; 80048; 80053; 81003; 81015; 82550; 83605; 83880; 84484; 85025; 85027; 85610; 87040; 87086; 87186; 93005; 93010; 94640; 97161-GP; 99283-25; G0378

== ENCOUNTER 2016-12-29 16:13 | Observation (INO) | payer OTHER ==
[2016-12-29 16:25] VITALS: BMI 34.9
--- NOTE | 2016-12-29 16:39 | PDOC ---
Attending Attestation - Medical Decision Making 12/29/16 17:52 Documentation prepared by Elisha Andre, acting as medical office technician for Alonzo Tang MD. <Elisha Andre - Last Filed: 12/29/16 17:52> - Resident Resident Name: Carmita Plunkett - ED Attending Attestation I have performed the following: I have examined & evaluated the patient, The case was reviewed & discussed with the resident, I agree w/resident's findings & plan, Exceptions are as noted - HPI HPI: 12/29/16 20:02 The patient is an 81 year old female with a significant past medical history of AFib, diabetes, hypertension, CHF, TN, COPD, osteoarthritis, asthma, and anemia , presenting to the Emergency Department with nasal bleeding and rectal bleeding. The patient reports that she has been seen in the ED at least 4 times in the past 2 months for nasal bleeds, and has nasal cauterization on 11/19 without relief, with a nose bleed for two hours today. She reports that she has had rectal bleeding for the past 3 days, which she describes as blood with bowel movements. She admits to a history of hemorrhoids, but states that the rectal bleeding is new. The patient states she was switched from Coumadin to Xarelto about 1 month ago secondary to the nasal bleeding. She also admits to lightheadedness, chest pain, and shortness of breath, which she attributes to anemia. The patient ambulates with a wheelchair secondary to hip surgery with complications. Denies N/V/abdominal pain. No h/o DVT/PE. No recent travel/ immobilization. Patient denies nausea, vomiting, and diarrhea. Patient denies fever, cough, and chills. Patient denies headache, or visual changes. Allergies: Ciprofloxacin PCP: Dr. Pompa Surgical Hx: R total knee arthroplasty, R total hip arthroplasty, hysterectomy " 12/29/16 20:04 - Physicial Exam PE: 12/29/16 20:05 "GENERAL: Well-appearing, well-nourished. No apparent distress. HEENT: Normocephalic, atraumatic. PERRL, EOM intact. B/l nares with dried blood, no active bleeding. Posterior OP clear. CARDIOVASCULAR: Normal S1, S2. Regular rate and rhythm. PULMONARY: Clear to auscultation bilaterally. ABDOMEN: Soft, non-distended, non-tender. rectal exam with brown stool, external hemorrhoids visualized, no active bleeding. SKIN: Warm, dry. No rash NEUROLOGICAL: No focal neurological deficits. " - Medical Decision Making 12/29/16 20:06 81 F on xarelto presenting with epistaxis and BRBPR, now resolved. Also complaining of CP/SOB, also resolved. EKG with no evidence of ischemia to suggest ACS. CP/SOB possibly related to anemia given recent blood loss. - Labs, trops - Trend CBC - Admit to hospital for further work up. <Alonzo Tang - Last Filed: 12/29/16 20:08> Heart Score/ECG Review - History History: Slightly suspicious - Electrocardiogram EKG: Normal - Age Age: >/= 65 - Risk Factors Based on the list above the patient has:: 1-2 risk factors - Troponin Troponin: </= normal limit - Score Heart Score - Total: 3 - ECG Impressions Comment:: 12/29/16 20:08 EKG with afib, rate 56, no COLT/STDs, no TWIs, left axis deviation <Alonzo Tang - Last Filed: 12/29/16 20:08>
--- NOTE | 2016-12-29 16:57 | PDOC ---
History of Present Illness <Alonzo Tang - Last Filed: 12/29/16 19:29> - General History Source: Patient, Family Exam Limitations: No Limitations - History of Present Illness Initial Comments: This is an 81 yo female with h/o A-fib (on Xarelto) and anemia (taking iron) who presents c/o nosebleed and rectal bleeding. 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 She has been suffering from nosebleeds for the past two months (with four episodes of significant nosebleeds) and was switched from Coumadin to Xarelto one month ago because of this. She additionally notes about 6 episodes of rectal bleeding with bowel movements and while urinating over the past 4 days. She states that the toilet has had a significant amount of blood in it, but she cannot further quantify this except that it is not more than a cup per episode. She expresses concern that she already has anemia, and she notes recent headache, lightheadedness, chest pain, and shortness of breath. She has not fallen or suffered any injury. Her last colonoscopy was 2 years ago and was normal, and she notes having hemorrhoids. <Carmita Plunkett - Last Filed: 12/30/16 10:16> - General Chief Complaint: Nasal Bleeding Stated Complaint: NOSE BLEED Time Seen by Provider: 12/29/16 16:26 Past History <Alonzo Tang - Last Filed: 12/29/16 19:29> - Past Medical History Anemia: Yes Asthma: Yes Cancer: Yes (SKIN / FOREHEAD 2010) Cardiac Disorders: Yes CVA: No COPD: Yes CHF: Yes Dementia: No Diabetes: Yes GI Disorders: No Disorders: No HTN: Yes Hypercholesterolemia: No Liver Disease: No Suicide Attempt (Hx): No Seizures: No Thyroid Disease: No - Surgical History Abdominal Surgery: No Appendectomy: No Cardiac Surgery: No Cholecystectomy: No Lung Surgery: No Neurologic Surgery: No Orthopedic Surgery: Yes ((R) HIP REPLACEMENT 2007) - Immunization History Immunization Up to Date: Yes - Psycho/Social/Smoking Cessation Hx Anxiety: No Suicidal Ideation: No Smoking Status: No Smoking History: Former smoker Have you smoked in the past 12 months: No Number of Cigarettes Smoked Daily: 0 If you are a former smoker, when did you quit?: "when I was very [place]" Information on smoking cessation initiated: No Hx Alcohol Use: No Drug/Substance Use Hx: No Substance Use Type: None Hx Substance Use Treatment: No <Carmita Plunkett - Last Filed: 12/30/16 10:16> - Past Medical History Allergies/Adverse Reactions: Allergies Allergy/AdvReac Type Severity Reaction Status Date / Time ciprofloxacin [From Cipro] Allergy Verified 12/29/16 16:25 ciprofloxacin HCl Allergy Verified 12/29/16 16:25 [From Cipro] Home Medications: Ambulatory Orders Acetaminophen 500 mg PO TID PRN 12/29/16 Ergocalciferol (Vitamin D2) [Vitamin D2] 50,000 unit PO MONTHLY 12/29/16 Ferrous Sulfate 325 mg PO BID 12/29/16 Furosemide [Lasix] 80 PO DAILY 12/29/16 Lisinopril [Zestril] 40 mg PO DAILY 12/29/16 Omeprazole 40 mg PO DAILY 12/29/16 Potassium Chloride 20 meq PO DAILY 12/29/16 Salmeterol/Fluticasone [Advair 250Mcg/50Mcg -] 1 inh PO BID 12/29/16 Sertraline HCl [Zoloft -] 50 mg PO DAILY 12/29/16 Simvastatin 40 mg PO DAILY 12/29/16 Rivaroxaban [Xarelto] 15 mg PO DAILY #30 tab 12/30/16 Review of Systems - Review of Systems Able to Perform ROS?: Yes Constitutional: No: Chills, Fever, Unexplained wgt Loss HEENTM: Yes: Recent change in vision, Nose Bleeding. No: Nose Congestion, Throat Pain Respiratory: Yes: Shortness of Breath. No: Cough Cardiac (ROS): Yes: Chest Pain, Irregular Heart Rate, Lightheadedness. No: Syncope ABD/GI: Yes: Nausea. No: Constipated, Diarrhea, Vomiting : No: Burning, Dysuria, Hematuria, Pain Musculoskeletal: No: Back Pain, Neck Pain Integumentary: No: Bruising, Rash Neurological: Yes: Headache. No: Numbness, Tingling, Weakness Endocrine: No: Unexplained Weight Gain, Unexplained Weight Loss <Carmita Plunkett - Last Filed: 12/30/16 10:16> *Physical Exam - Vital Signs Last Vital Signs Temp Pulse Resp BP Pulse Ox 98.1 F 51 L 20 202/95 96 08/05/17 16:20 12/29/16 16:20 12/29/16 16:20 12/29/16 16:20 12/29/16 16:20 <Alonzo Tang - Last Filed: 12/29/16 19:29> - Vital Signs Last Vital Signs Temp Pulse Resp BP Pulse Ox 98.1 F 51 L 20 202/95 96 12/29/16 16:20 12/29/16 16:20 12/29/16 16:20 12/29/16 16:20 12/29/16 16:20 - Physical Exam General Appearance: Yes: Nourished, Appropriately Dressed, Obese, Other ( nontoxic, pleasant, conversive, accompanied by daughter at bedside). No: Apparent Distress HEENT: positive: EOMI, DELILAH, Normal Voice, Symmetrical, Pale Conjunctivae, Hearing Grossly Normal, Other (scant dried blood at left muhammad without active bleeding or mucosal damage seen). negative: Scleral Icterus (R), Scleral Icterus (L), Nasal Congestion Neck: positive: Trachea midline, Supple. negative: Tender, Rigid Respiratory/Chest: positive: Lungs Clear, Normal Breath Sounds. negative: Respiratory Distress, Crackles, Rhonchi, Stridor, Wheezing Cardiovascular: positive: Regular Rhythm, Regular Rate, Murmur (2/6 systolic murmur at LUSB), Irregularly Irregular Gastrointestinal/Abdominal: positive: Normal Bowel Sounds, Soft. negative: Tender, Organomegaly, Pulsatile Mass, Guarding Musculoskeletal: positive: Normal Inspection. negative: Decreased Range of Motion, Vertebral Tenderness Extremity: positive: Normal Capillary Refill, Normal Inspection, Normal Range of Motion. negative: Tender, Cyanosis Integumentary: positive: Normal Color, Dry, Warm, Other (pale palm creases). negative: Erythema, Rash, Bruising Neurologic: positive: skin former II-XII NML intact, Fully Oriented, Alert, Normal Mood/ Affect, Normal Response, Motor Strength 5/5, Finger to Nose (normal). negative : Confused <Carmita Plunkett - Last Filed: 12/30/16 10:16> ED Treatment Course - LABORATORY CBC & Chemistry Diagram: 12/29/16 17:25 12/29/16 17:17 - ADDITIONAL ORDERS Additional order review: Laboratory Results 12/29/16 12/29/16 12/29/16 18:47 17:20 17:20 INR PTT (Actin FS) 36.7 H Sodium Potassium Chloride Carbon Dioxide Anion Gap BUN Creatinine Creat Clearance w eGFR Random Glucose Calcium Magnesium Total Bilirubin AST ALT Alkaline Phosphatase Creatine Kinase Troponin I B-Natriuretic Peptide 6356.53 H Total Protein Albumin Stool Occult Blood Negative 12/29/16 12/29/16 17:20 17:17 INR 1.62 H PTT (Actin FS) Sodium 142 Potassium 4.3 Chloride 109 H Carbon Dioxide 27 Anion Gap 6 L BUN 30 H Creatinine 1.1 H Creat Clearance w eGFR 47.55 Random Glucose 73 L Calcium 8.8 Magnesium 1.8 Total Bilirubin 0.1 L D AST 17 D ALT 17 D Alkaline Phosphatase 66 D Creatine Kinase 49 Troponin I < 0.02 B-Natriuretic Peptide Total Protein 6.3 L Albumin 3.5 D Stool Occult Blood 12/29/16 17:25 RBC 3.35 L MCV 84.6 MCHC 32.5 RDW 18.3 H D MPV 9.4 D Neutrophils % 66.9 Lymphocytes % 18.6 Monocytes % 11.6 H Eosinophils % 2.2 Basophils % 0.7 <Alonzo Tang - Last Filed: 12/29/16 19:29> - LABORATORY CBC & Chemistry Diagram: 12/30/16 06:30 12/30/16 06:30 - RADIOLOGY Radiograph Interpretation: EXAM#: TYPE/EXAM: RESULT: [id number] RAD/CHEST X-RAY PORTABLE* AP portable chest: Chest pain Since 09/07/2016, again noted is a large heart with unfolded aorta and midline trachea. There are some prominent central markings with some minimal atelectatic changes at the bases. There is left axillary calcification. There are degenerative spine and shoulder changes. Impression: Large heart. Prominent central markings with minimal atelectatic changes. Degenerative findings. Reported By: Juan Francisco Velasquez MD 12/30/16 0851 <Carmita Plunkett - Last Filed: 12/30/16 10:16> Medical Decision Making - Medical Decision Making 81 yo female with anemia and A-fib on Xarelto p/w recurrent nosebleeds and rectal bleeding. Feels lightheaded, WATERMAN, decreased vision, chest pain, SOB increasing x3 days. Exam notable for pale conjunctiva and palm creases, irr irr bradycardic rhythm, 3/6 systolic murmur. DDX for CP, SOB, WATERMAN, lightheadedness: acute on chronic anemia, demand ischemia, ACS, hypovolemia. Ordered is chest pain workup and FOBT. Hgb is 9.1 which is actually higher than many prior visits. BUN is 30 but this is now out of ordinary according to patient's prior labs. BNP is >6000 but the patient's baseline is high and was >20k with prior CHF exacerbation Patient is signed out to excellent Dr. Gus Cannon at shift change. <Carmita Plunkett - Last Filed: 12/30/16 10:16> *DC/Admit/Observation/Transfer - Discharge Dispostion Admit: Yes Decision to Admit order Date/Time: 12/29/16 19:30 <Alonzo Tang - Last Filed: 12/29/16 19:29> - Attestations Physician Attestion: 12/29/16 17:23 I, Dr. Carmita Plunkett, attest that this document has been prepared under my direction and personally reviewed by me in its entirety. I further attest, that it accurately reflects all work, treatment, procedures and medical decision -making performed by me. <Carmita Plunkett - Last Filed: 12/30/16 10:16> Diagnosis at time of Disposition: Epistaxis GI bleed Qualifiers: GI bleed type/associated pathology: unspecified gastrointestinal hemorrhage type Qualified Code(s): K92.2 - Gastrointestinal hemorrhage, unspecified Chest pain Qualifiers: Chest pain type: unspecified Qualified Code(s): R07.9 - Chest pain, unspecified - Discharge Dispostion Condition at time of disposition: Stable - Prescriptions - Referrals
[2016-12-29 17:42] LABS: BASOPHIL 0.7 % (0-2.0); EOSINOPHIL 2.2 % (0-4.5); MCH 27.5 pg (25.7-33.7); MCHC 32.5 g/dl (32.0-36.0); MEAN CELL VOLUME 84.6 fl (80-96); MEAN PLT VOLUME 9.4 fl (7.5-11.1); NEUTROPHILS 66.9 % (42.8-82.8); PLATELET COUNT 217 K/MM3 (134-434); RDW 18.3 % (11.6-15.6); WHITE BLOOD COUNT 6.9 K/mm3 (4.0-10.0)
[2016-12-29 17:56] LABS: INR 1.62 (0.82-1.09)
[2016-12-29 18:14] LABS: ALBUMIN 3.5 g/dl (3.4-5.0); ANION GAP 6 (8-16); BILIRUBIN,TOTAL 0.1 mg/dL (0.2-1.0); CALCIUM 8.8 mg/dL (8.5-10.1); CO2 27 mmol/L (21-32); CREATININE 1.1 mg/dL (0.55-1.02); GLUCOSE,RANDOM 73 mg/dL (74-106); SGPT/ALT 17 U/L (12-78); TOT PROT 6.3 g/dl (6.4-8.2)
[2016-12-29 18:17] LABS: ALK PHOS 66 U/L (45-117); CPK 49 IU/L (26-192); TROPONIN I < 0.02 ng/ml (0.00-0.05)
[2016-12-29 18:20] LABS: MAGNESIUM 1.8 mg/dL (1.8-2.4); SGOT/AST 17 U/L (15-37)
--- NOTE | 2016-12-29 19:32 | HP ---
CHIEF COMPLAINT: Chest Pain, Epistaxis, GI Bleed PCP: Dr. Arvind Ravi HISTORY OF PRESENT ILLNESS: This is a 81 y/o woman with a past medical history of Chronic Anemia, Afib (on Xarelto), Hemorrhoids. Who presents to the ED with epistaxis, rectal bleeding x today, chest pain with SOB over several days. Patient reports having moderate bleeding from her left nare with clots. Patient reports having similar episodes over the last 4 days, worse today. Patient also reports noting blood when she wipes and while urinating. Patient denies fever, chills, cough, dizziness, WATERMAN, AP, N/V/D, constipation, dysuria. ER course was notable for: (1) EKG- Afib rate controlled (2) Stool Occult- negative (3) BNP- 6356 Recent Travel: None PAST MEDICAL HISTORY: HTN HLD Afib (on Xarelto) Anemia Asthma PAST SURGICAL HISTORY: R total knee arthroplasty, R total hip arthroplasty, Hysterectomy Social History: Smoking: Former Alcohol: Occasional Drugs: None Lives with her daughter, wheelchair bound Family History: Father: HTN, Cardiac Mother: HTN, cardiac Brother: HTN, Cardiac Allergies ciprofloxacin [From Cipro] Allergy (Verified 12/29/16 16:25) ciprofloxacin HCl [From Cipro] Allergy (Verified 12/29/16 16:25) HOME MEDICATIONS: Home Medications Medication Instructions Recorded Acetaminophen 500 mg PO DAILY 12/29/16 Ergocalciferol (Vitamin D2) 50,000 unit PO MONTHLY 12/29/16 [Vitamin D2] Ferrous Sulfate 325 mg PO DAILY 12/29/16 Lisinopril [Zestril] 40 mg PO DAILY 12/29/16 Omeprazole 20 mg PO DAILY 12/29/16 Potassium Chloride 20 meq PO DAILY 12/29/16 Rivaroxaban [Xarelto] 15 mg PO DAILY 12/29/16 Salmeterol/Fluticasone [Advair 1 inh PO BID 12/29/16 250Mcg/50Mcg] Sertraline HCl [Zoloft -] 50 mg PO DAILY 12/29/16 Simvastatin 40 mg PO DAILY 12/29/16 REVIEW OF SYSTEMS CONSTITUTIONAL: Absent: fever, chills, diaphoresis, generalized weakness, malaise, loss of appetite, weight change HEENT: epistaxis Absent: rhinorrhea, nasal congestion, throat pain, throat swelling, difficulty swallowing, mouth swelling, ear pain, eye pain, visual changes CARDIOVASCULAR: chest pain Absent: syncope, palpitations, irregular heart rate, lightheadedness, peripheral edema RESPIRATORY: shortness of breath Absent: cough, dyspnea with exertion, orthopnea, wheezing, stridor, hemoptysis GASTROINTESTINAL: hematochezia Absent: abdominal pain, abdominal distension, nausea, vomiting, diarrhea, constipation, melena GENITOURINARY: Absent: dysuria, frequency, urgency, hesitancy, hematuria, flank pain, genital pain MUSCULOSKELETAL: Absent: myalgia, arthralgia, joint swelling, back pain, neck pain SKIN: Absent: rash, itching, pallor HEMATOLOGIC/IMMUNOLOGIC: Absent: easy bleeding, easy bruising, lymphadenopathy, frequent infections ENDOCRINE: Absent: unexplained weight gain, unexplained weight loss, heat intolerance, cold intolerance NEUROLOGIC: Absent: headache, focal weakness or paresthesias, dizziness, unsteady gait, seizure, mental status changes, bladder or bowel incontinence PSYCHIATRIC: Absent: anxiety, depression, suicidal or homicidal ideation, hallucinations. PHYSICAL EXAMINATION Vital Signs - 24 hr 12/29/16 16:20 Temperature 98.1 F Pulse Rate 51 L Respiratory 20 Rate Blood Pressure 202/95 O2 Sat by Pulse 96 Oximetry (%) GENERAL: Obese, awake, alert, and fully oriented, in no acute distress. HEAD: Normal with no signs of trauma. EYES: Pupils equal, round and reactive to light, extraocular movements intact, sclera anicteric, conjunctiva clear. No lid lag. EARS, NOSE, THROAT: Ears normal, nares patent, oropharynx clear without exudates. Moist mucous membranes. NECK: Normal range of motion, supple without lymphadenopathy, JVD, or masses. LUNGS: Breath sounds equal, clear to auscultation bilaterally. No wheezes, and no crackles. No accessory muscle use. HEART: Irregular rate and rhythm, normal S1 and S2 with grade 2/6 systolic murmur. No rub or gallop. ABDOMEN: Soft, nontender, not distended, normoactive bowel sounds, no guarding, no rebound, no masses. No hepatomegaly or splenomegaly. RECTAL: External hemorrhoids, no active bleed MUSCULOSKELETAL: Normal range of motion at all joints. No bony deformities or tenderness. No CVA tenderness. UPPER EXTREMITIES: 2+ pulses, warm, well-perfused. No cyanosis. No clubbing. No peripheral edema. LOWER EXTREMITIES: 2+ pulses, warm, well-perfused. No calf tenderness. No peripheral edema. NEUROLOGICAL: Cranial nerves II-XII intact. Normal speech. Gait not observed. PSYCHIATRIC: Cooperative. Good eye contact. Appropriate mood and affect. SKIN: Warm, dry, normal turgor, no rashes or lesions noted, normal capillary refill. Laboratory Results - last 24 hr 12/29/16 12/29/16 12/29/16 17:17 17:20 17:20 WBC RBC Hgb Hct MCV MCH MCHC RDW Plt Count MPV Neutrophils % Lymphocytes % Monocytes % Eosinophils % Basophils % INR 1.62 H PTT (Actin FS) 36.7 H Sodium 142 Potassium 4.3 Chloride 109 H Carbon Dioxide 27 Anion Gap 6 L BUN 30 H Creatinine 1.1 H Creat Clearance w eGFR 47.55 Random Glucose 73 L Calcium 8.8 Magnesium 1.8 Total Bilirubin 0.1 L D AST 17 D ALT 17 D Alkaline Phosphatase 66 D Creatine Kinase 49 Troponin I < 0.02 B-Natriuretic Peptide Total Protein 6.3 L Albumin 3.5 D Stool Occult Blood 12/29/16 12/29/16 12/29/16 17:20 17:25 18:47 WBC 6.9 RBC 3.35 L Hgb 9.2 L Hct 28.4 L MCV 84.6 MCH 27.5 MCHC 32.5 RDW 18.3 H D Plt Count 217 MPV 9.4 D Neutrophils % 66.9 Lymphocytes % 18.6 Monocytes % 11.6 H Eosinophils % 2.2 Basophils % 0.7 INR PTT (Actin FS) Sodium Potassium Chloride Carbon Dioxide Anion Gap BUN Creatinine Creat Clearance w eGFR Random Glucose Calcium Magnesium Total Bilirubin AST ALT Alkaline Phosphatase Creatine Kinase Troponin I B-Natriuretic Peptide 6356.53 H Total Protein Albumin Stool Occult Blood Negative ASSESSMENT/PLAN: This is a 81 y/o woman with a PMHx of: HTN, DM, HLD, Afib (on Xarelto), Anemia , Asthma. Placed on Observation for Chest Pain r/o ACS, Epistaxis, Rectal Bleeding for further evaluation of their emergent condition. Impression: 1. Chest Pain 2. Epistaxis 3. Rectal Bleeding 4. Anemia Plan: Chest Pain - r/o ACS vs Chronic Anemia - Tele monitoring - HEART Score 4 - LANCE Score 2 - Serial Enzymes neg x1 - Trend Trop I x2 - Chest Xray- reviewed - Consider Cardiology Consult - Echo - Asa - Monitor vitals Anemia - Stable - Hgb 9.2 - Will transfuse if Hgb < 7 - Monitor CBC - O2 Problem List - Problem (1) Epistaxis Assessment/Plan: - Stable - Likely secondary to medication (Xarelto) - No active bleed at present - Will continue to monitor and treat with interventions accordingly - Monitor vitals Code(s): R04.0 - EPISTAXIS (2) HTN (hypertension) Assessment/Plan: - Stable - Monitor BP - Continue home med - Monitor renal function Code(s): I10 - ESSENTIAL (PRIMARY) HYPERTENSION Qualifiers: (3) Atrial fibrillation Assessment/Plan: - EKG- Afib rate controlled - Continue Xarelto monitor closely for bleeding Code(s): I48.91 - UNSPECIFIED ATRIAL FIBRILLATION Qualifiers: (4) COPD (chronic obstructive pulmonary disease) Assessment/Plan: - Stable - Continue Advair - Duoneb prn - Monitor Spo2 Code(s): J44.9 - CHRONIC OBSTRUCTIVE PULMONARY DISEASE, UNSPECIFIED Qualifiers : (5) Diabetes mellitus Assessment/Plan: - Stable - BGMs - Code(s): E11.9 - TYPE 2 DIABETES MELLITUS WITHOUT COMPLICATIONS Qualifiers: (6) Hypercholesterolemia Assessment/Plan: - Continue home med - Lipid panel in am Code(s): E78.00 - PURE HYPERCHOLESTEROLEMIA, UNSPECIFIED (7) Rectal bleeding Assessment/Plan: - Likely secondary to Hemorrhoids - Stool occult negative - On exam: external hemorrhoids noted no active bleed - Will order Colace - Monitor CBC Code(s): K62.5 - HEMORRHAGE OF ANUS AND RECTUM (8) DVT prophylaxis Assessment/Plan: - SCDs - Will continue Xarelto, monitor closely Code(s): AIA2277 - Visit type - Emergency Visit Emergency Visit: Yes ED Registration Date: 12/29/16 Care time: The patient presented to the Emergency Department on the above date and was hospitalized for further evaluation of their emergent condition. - New Patient This patient is new to me today: Yes Date on this admission: 12/29/16 - Critical Care Critical Care patient: No
--- NOTE | 2016-12-29 19:42 | PDOC ---
*Physical Exam - Vital Signs Last Vital Signs Temp Pulse Resp BP Pulse Ox 98.1 F 51 L 20 202/95 96 12/29/16 16:20 12/29/16 16:20 12/29/16 16:20 12/29/16 16:20 12/29/16 16:20 ED Treatment Course - LABORATORY CBC & Chemistry Diagram: 12/29/16 17:25 12/29/16 17:17 - ADDITIONAL ORDERS Additional order review: Laboratory Results 12/29/16 12/29/16 12/29/16 18:47 17:20 17:20 INR PTT (Actin FS) Sodium Potassium Chloride Carbon Dioxide Anion Gap BUN Creatinine Creat Clearance w eGFR Random Glucose Calcium Magnesium Total Bilirubin AST ALT Alkaline Phosphatase Creatine Kinase Troponin I B-Natriuretic Peptide 6356.53 H Total Protein Albumin Stool Occult Blood Negative Blood Type O NEGATIVE Antibody Screen Negative 12/29/16 12/29/16 12/29/16 17:20 17:20 17:17 INR 1.62 H PTT (Actin FS) 36.7 H Sodium 142 Potassium 4.3 Chloride 109 H Carbon Dioxide 27 Anion Gap 6 L BUN 30 H Creatinine 1.1 H Creat Clearance w eGFR 47.55 Random Glucose 73 L Calcium 8.8 Magnesium 1.8 Total Bilirubin 0.1 L D AST 17 D ALT 17 D Alkaline Phosphatase 66 D Creatine Kinase 49 Troponin I < 0.02 B-Natriuretic Peptide Total Protein 6.3 L Albumin 3.5 D Stool Occult Blood Blood Type Antibody Screen 12/29/16 17:25 RBC 3.35 L MCV 84.6 MCHC 32.5 RDW 18.3 H D MPV 9.4 D Neutrophils % 66.9 Lymphocytes % 18.6 Monocytes % 11.6 H Eosinophils % 2.2 Basophils % 0.7 Medical Decision Making - Medical Decision Making 12/29/16 19:41 Patient was signed out to me by day team, Dr. Plunkett. Need to follow up on FOBT Will require admission for observation under Dr. Collazo with a tele bed. I will put in these orders. 12/29/16 19:44 FOBT negative. Admission for obs order placed. *DC/Admit/Observation/Transfer Diagnosis at time of Disposition: Epistaxis, Gastrointestinal hemorrhage, Chest pain - Discharge Dispostion Condition at time of disposition: Stable Admit: Yes - Referrals Referrals: Arvind Ravi MD [Primary Care Provider] - - Patient Instructions - Post Discharge Activity
[2016-12-29] MEDS ORDERED: ACETAMINOPHEN 325 MG TABLET (FP) PO PRN (23:50)
[2016-12-30 07:23] LABS: BASOPHIL 0.8 % (0-2.0); EOSINOPHIL 3.2 % (0-4.5); MCHC 32.2 g/dl (32.0-36.0); MEAN CELL VOLUME 83.8 fl (80-96); NEUTROPHILS 65.1 % (42.8-82.8); PLATELET COUNT 174 K/MM3 (134-434); WHITE BLOOD COUNT 5.4 K/mm3 (4.0-10.0)
[2016-12-30 08:02] LABS: CHOLESTEROL 132 mg/dL (50-200)
[2016-12-30 08:08] LABS: ANION GAP 8 (8-16); CALCIUM 8.7 mg/dL (8.5-10.1); CO2 28 mmol/L (21-32); CREATININE 1.1 mg/dL (0.55-1.02); GLUCOSE,RANDOM 93 mg/dL (74-106); MAGNESIUM 1.9 mg/dL (1.8-2.4); PHOSPHOROUS 4.7 mg/dL (2.5-4.9)
[2016-12-30 08:18] LABS: LDL CHOLESTEROL (ONLY SJRH) 65 mg/dL (5-100)
[2016-12-30] MEDS ORDERED: ERGOCALCIFEROL (VITAMIN D2) 50,000 UNIT CAPSULE (FP) PO SCH (09:00)
[2016-12-30] MEDS ORDERED: FERROUS SO4 325 MG TABLET (FP) PO SCH (10:00)
[2016-12-30] MEDS ORDERED: POTASSIUM CHLORIDE TABS 20 MEQ TABLET.ER (FP) PO SCH (10:00)
[2016-12-30] MEDS ORDERED: BUDESONIDE/FORMETEROL FUMARATE 80/4.5 mcg INHALER IH SCH (10:00)
[2016-12-30] MEDS ORDERED: LISINOPRIL 20 MG TABLET (FP) PO SCH (10:00)
[2016-12-30] MEDS ORDERED: FUROSEMIDE 40 MG TABLET (FP) PO SCH (10:00)
[2016-12-30] MEDS ORDERED: PANTOPRAZOLE 40 MG TABLET (FP) PO SCH (10:00)
[2016-12-30] MEDS ORDERED: SERTRALINE HCL 50 MG TABLET (FP) PO SCH (10:00)
--- NOTE | 2016-12-30 10:02 | DS ---
Physical Exam: SUBJECTIVE: Patient seen and examined. She no longer has nasal bleeding or rectal bleeding. She is tolerating diet, no vomiting. She c/o b/l knee pain. OBJECTIVE: Vital Signs Period Temp Pulse Resp BP Sys/Mo Pulse Ox Last 24 Hr 97.5 F-98.5 F 53-71 16-20 148-202/64-83 99-99 PE Neuro: alert, awake, cn 2-12intact Heent: no bleeding, no dried blood Pulm: CTAB CV: s1 s2 3/6 systolic murmur Abd: s nt nd + bs Ext: warm, trace le edema msk: b/l knee tenderness mild swelling - chronic Laboratory Results - last 24 hr 12/29/16 12/30/16 12/30/16 23:00 06:30 06:30 WBC 5.4 RBC 3.25 L Hgb 8.8 L Hct 27.2 L MCV 83.8 MCH 27.0 MCHC 32.2 RDW 18.0 H Plt Count 174 MPV 9.0 Neutrophils % 65.1 Lymphocytes % 19.1 Monocytes % 11.8 H Eosinophils % 3.2 Basophils % 0.8 Sodium 144 Potassium 4.1 Chloride 108 H Carbon Dioxide 28 Anion Gap 8 BUN 28 H Creatinine 1.1 H Random Glucose 93 D Hemoglobin A1c % Calcium 8.7 Phosphorus 4.7 D Magnesium 1.9 Troponin I < 0.02 Triglycerides Cholesterol Total LDL Cholesterol HDL Cholesterol 12/30/16 12/30/16 12/30/16 06:30 06:30 06:30 WBC RBC Hgb Hct MCV MCH MCHC RDW Plt Count MPV Neutrophils % Lymphocytes % Monocytes % Eosinophils % Basophils % Sodium Potassium Chloride Carbon Dioxide Anion Gap BUN Creatinine Random Glucose Hemoglobin A1c % 6.3 H D Calcium Phosphorus Magnesium Troponin I < 0.02 Triglycerides 99 D Cholesterol 132 Total LDL Cholesterol 65 HDL Cholesterol 38 HOSPITAL COURSE: Date of Admission:12/29/16 Date of Discharge: 12/30/16 Minutes to complete discharge: 37 Discharge Summary Reason For Visit: GI BLEED CHEST EPISTAXIS Current Active Problems Chest pain (Acute) DVT prophylaxis (Acute) Elevated troponin (Acute) Epistaxis (Acute) GI bleed (Acute) HTN (hypertension) (Acute) Rectal bleeding (Acute) Atrial fibrillation (Chronic) Hospital Course: Hospital Course: This 81 year old female with a past medical history of Chronic Anemia, Afib (on Xarelto), Hemorrhoids presented to the ED with epistaxis for 3 hours with clots which resolved on its own. She did swallow some blood. Throughout the week shes been having on and off nosebleeds and ~6 episodes of rectal bleeding with bowel movements. She did states shes had associated WATERMAN, SOB, lightheadedness and chest pain. When she came in the bleeding was not stopping and she was worried. Subsequent hospital course: Bleeding resolved on its own. Hgb stable in AM 8.8 Hct 28.4 -> 27.2 No further rectal bleeding and tolerating diet without issue. Instructed pt to hold xarelto until after her appt with ENT Dr. Ferraro tomorrow @ 10am. He will instruct when to restart, this information was also relayed to daughter Laura. Trops negative, no chest pain on discharge To resume home medications as directed with cardiology follow up in 1 week Pt and daughter aware and agree to above plan VNS and PT referral made Condition: Stable - Instructions Diet, Activity, Other Instructions: Please return to the ED for any new, persistent, or worsening symptoms. Follow up with your PCP in 1 week Hold Xarelto until tomorrow appointment with Dr. Ferraro @10am. He will recommend when you can restart Keep ENT appt tomorrow 10am Make follow up appt with Dr. Stewart (cardiology) for later this week, he is aware of your admission and expects to see you Take home medication as directed on home discharge list Physical Therapy referral sent Referrals: Arvind Ravi MD [Primary Care Provider] - Juan Francisco Ferraro MD [Staff Physician] - 12/31/16 10:00 am Armen Stewart MD [Staff Physician] - 1 Week Disposition: VNS/HOME HEALTH CARE - Home Medications Comprehensive Discharge Medication List: Ambulatory Orders Acetaminophen 500 mg PO TID PRN 12/29/16 Ergocalciferol (Vitamin D2) [Vitamin D2] 50,000 unit PO MONTHLY 12/29/16 Ferrous Sulfate 325 mg PO BID 12/29/16 Furosemide [Lasix] 80 PO DAILY 12/29/16 Lisinopril [Zestril] 40 mg PO DAILY 12/29/16 Omeprazole 40 mg PO DAILY 12/29/16 Potassium Chloride 20 meq PO DAILY 12/29/16 Salmeterol/Fluticasone [Advair 250Mcg/50Mcg -] 1 inh PO BID 12/29/16 Sertraline HCl [Zoloft -] 50 mg PO DAILY 12/29/16 Simvastatin 40 mg PO DAILY 12/29/16 Rivaroxaban [Xarelto] 15 mg PO DAILY #30 tab 12/30/16 This patient is new to me today: Yes Date on this admission: 12/30/16 Emergency Visit: Yes ED Registration Date: 12/29/16 Care time: The patient presented to the Emergency Department on the above date and was hospitalized for further evaluation of their emergent condition. Critical Care patient: No - Discharge Referral Referred to [facility] Med [facility].C[facility] No
[2016-12-30 11:03] VITALS: BP 156/81; PULSE 73; TEMP 98.8
[2016-12-30] MEDS ORDERED: ATORVASTATIN CA 20 MG TABLET (FP) PO SCH (22:00)
--- NOTE | 2016-12-31 13:43 | EKG ---
Test Reason : Blood Pressure : / mmHG Vent. Rate : 056 BPM Atrial Rate : 043 BPM P-R Int : 000 ms QRS Dur : 090 ms QT Int : 442 ms P-R-T Axes : 000 -42 046 degrees QTc Int : 426 ms ATRIAL FIBRILLATION WITH SLOW VENTRICULAR RESPONSE LEFT AXIS DEVIATION NONSPECIFIC ST ABNORMALITY ABNORMAL ECG WHEN COMPARED WITH ECG OF 24-NOV-2016 11:38, T WAVE INVERSION NO LONGER EVIDENT IN ANTERIOR LEADS VENT. RATE HAS DECREASED Confirmed by CLOVER PABON MD ([id number]) on 12/31/2016 1:43:22 PM Referred By: Confirmed By:CLOVER PABON MD
== END 2016-12-30 12:49 | disposition home health service (06) ==
LOC: JER 16:13 → JERBED 19:46 → J4S 21:45
PROVIDERS: ADMIT Internal Medicine; ATTEND Nurse Practitioner Acute Care
PROC: 3E0F7GC Introduction of Other Therapeutic Substance into Respiratory Tract, Via Natural or Artificial Opening (ICD-10-PCS; principal; 2016-12-29)
DX: R04.0 Epistaxis (principal); K92.2 Gastrointestinal hemorrhage, unspecified; R07.9 Chest pain, unspecified; I10 Essential (primary) hypertension; I48.91 Unspecified atrial fibrillation; I50.9 Heart failure, unspecified; J45.909 Unspecified asthma, uncomplicated; J44.9 Chronic obstructive pulmonary disease, unspecified; E11.9 Type 2 diabetes mellitus without complications; E78.00 Pure hypercholesterolemia, unspecified; M19.90 Unspecified osteoarthritis, unspecified site; D64.9 Anemia, unspecified; Z79.01 Long term (current) use of anticoagulants; Z85.828 Personal history of other malignant neoplasm of skin; Z96.641 Presence of right artificial hip joint; Z87.891 Personal history of nicotine dependence; Z88.1 Allergy status to other antibiotic agents
CPT/HCPCS: 36415; 71010-TC; 80048; 80053; 80061; 82272; 83036; 83721; 83735; 83880; 84100; 84484; 85025; 85610; 85730; 86850; 86900; 86901; 93005; 93010; 99285-25; G0378

== ENCOUNTER 2017-06-15 11:21 | Inpatient (IN) | payer OTHER ==
--- NOTE | 2017-06-15 11:38 | PDOC ---
History of Present Illness - General History Source: Patient Exam Limitations: No Limitations - History of Present Illness Initial Comments: 06/15/17 13:12 The patient is a 81 year old female with a significant PMH of hypertension, diabetes, CHF, asthma, COPD, skin cancer on the forehead in 2010, anemia, and hip replacement in January who presents to the emergency department with worsening right leg pain and difficulty breathing since yesterday. The patient states she has right leg pain at baseline due to a hip replacement in January but states the pain today is worse prompting her visit to the ER. The patient describes her right leg pain as a 9/10 and sharp that is worsened with movement. The patient reports that she went to 2 months of rehab after the hip replacement in January and has been having difficulty ambulating since. The patient notes she takes Tylenol 500 mg for the pain with no relief. As per the daughter, the patient is normally able to stand, but was unable to stand today. The daughter denies any trauma to the right leg. The patient also states she had a slow onset of intermittent shortness of breath yesterday. The patient is speaking in full sentences at presentation. The patient denies chest pain,headache and dizziness. Denies nausea, vomit, diarrhea and constipation. Denies dysuria, frequency, urgency and hematuria. Allergies: NKA Past surgical history: Rip hip replacement in 2007 and January 2017 Social history: No reported alcohol, cigarette, or drug use. PCP: Dr. Pompa <Junie Estrella - Last Filed: 06/15/17 16:33> <Kiana Tineo - Last Filed: 06/15/17 18:37> - General Chief Complaint: Shortness of Breath Stated Complaint: DIFFICULTY BREATHING Time Seen by Provider: 06/15/17 11:38 Past History <Junie Estrella - Last Filed: 06/15/17 16:33> - Past Medical History Anemia: Yes Asthma: Yes Cancer: Yes (SKIN / FOREHEAD 2010) Cardiac Disorders: Yes CVA: No COPD: Yes CHF: Yes Dementia: No Diabetes: Yes GI Disorders: No Disorders: No HTN: Yes Hypercholesterolemia: No Liver Disease: No Seizures: No Thyroid Disease: No - Surgical History Abdominal Surgery: No Appendectomy: No Cardiac Surgery: No Cholecystectomy: No Lung Surgery: No Neurologic Surgery: No Orthopedic Surgery: Yes ((R) HIP REPLACEMENT 2007) - Immunization History Immunization Up to Date: Yes - Suicide/Smoking/Psychosocial Hx Smoking Status: No Smoking History: Former smoker Have you smoked in the past 12 months: No Number of Cigarettes Smoked Daily: 0 If you are a former smoker, when did you quit?: "when I was very [place]" Hx Alcohol Use: No Drug/Substance Use Hx: No Substance Use Type: None Hx Substance Use Treatment: No <Kiana Tineo - Last Filed: 06/15/17 18:37> - Past Medical History Allergies/Adverse Reactions: Allergies Allergy/AdvReac Type Severity Reaction Status Date / Time ciprofloxacin [From Cipro] Allergy Verified 06/15/17 11:43 ciprofloxacin HCl Allergy Verified 06/15/17 11:43 [From Cipro] Home Medications: Ambulatory Orders Acetaminophen 500 mg PO TID PRN 12/29/16 Ferrous Sulfate 325 mg PO BID 12/29/16 Furosemide [Lasix] 80 mg PO DAILY 12/29/16 Lisinopril [Zestril] 40 mg PO DAILY 12/29/16 Omeprazole 40 mg PO DAILY 12/29/16 Potassium Chloride 20 meq PO DAILY 12/29/16 Sertraline HCl [Zoloft -] 50 mg PO DAILY 12/29/16 Simvastatin 40 mg PO DAILY 12/29/16 Rivaroxaban [Xarelto] 15 mg PO DAILY #30 tab 12/30/16 Albuterol Sulfate [Proair Hfa] 2 inh IH Q4HWA 06/15/17 Apixaban [Eliquis] 2.5 mg PO BID 06/15/17 Cholecalciferol (Vitamin D3) [Vitamin D3] 30,000 unit PO WEEKLY 06/15/17 Furosemide [Lasix] 40 mg PO HS 06/15/17 Labetalol HCl [Normodyne -] 200 mg PO BID 06/15/17 Repaglinide [Prandin -] 1 mg PO TID 06/15/17 *Physical Exam - Vital Signs Last Vital Signs Temp Pulse Resp BP Pulse Ox 98.7 F 65 18 190/89 97 06/15/17 11:38 06/15/17 11:38 06/15/17 11:38 06/15/17 11:38 06/15/17 11:51 - Physical Exam Comments: 06/15/17 12:53 GENERAL: (+) Mildly uncomfortable. Awake, alert, and fully oriented. HEAD: No signs of trauma EYES: PERRLA, EOMI, sclera anicteric, conjunctiva clear ENT: Auricles normal inspection, hearing grossly normal, nares patent, oropharynx clear without exudates. Moist mucosa NECK: Normal ROM, supple, no lymphadenopathy, JVD, or masses LUNGS: (+) Crackles in the bases. (+) Tachypnic Breath sounds equal, clear to auscultation bilaterally. No wheezes. HEART: (+) 2/6 systolic murmur. Regular rate and rhythm, normal S1 and S2, rubs or gallops ABDOMEN: Soft, nontender, normoactive bowel sounds. No guarding, no rebound. No masses EXTREMITIES: (+) Shortened, externally rotated right leg but neurovascularly intact. No edema. No clubbing or cyanosis. No cords, erythema, or tenderness NEUROLOGICAL: (+) Speaking in complete sentences. Cranial nerves II through XII grossly intact. Normal speech. SKIN: Warm, Dry, normal turgor, no rashes or lesions noted. <Junie Estrella - Last Filed: 06/15/17 16:33> ED Treatment Course - LABORATORY CBC & Chemistry Diagram: 06/15/17 13:40 06/15/17 13:40 - Medications Given in the ED: ED Medications Discontinued Medications Generic Name Dose Route Start Last Admin Trade Name Hilario PRN Reason Stop Dose Admin Morphine Sulfate 2 mg 06/15/17 12:40 06/15/17 12:50 Morphine Injection - IVPUSH 06/15/17 12:41 2 mg ONCE ONE Administration <Junie Estrella - Last Filed: 06/15/17 16:33> - LABORATORY CBC & Chemistry Diagram: 06/15/17 13:40 06/15/17 13:40 <Kiana Tineo - Last Filed: 06/15/17 18:37> Medical Decision Making - Medical Decision Making 06/15/17 13:38 Pt presents to the ED complaining of acute worsening of her chronic R hip pain and shortness of breath, now is no longer able to stand. Leg is shortened and externally rotated--I am concerned for hip fracture. Will also check labs and CXR to rule out ACS, CHF or PNA as a cause of her shortness of breath. Will check pelvis xray and possible CT to rule out fx. Will consider evaluating for PE if work up is negative for ACS or PNA. 06/15/17 18:[address] Cline who states that the patient has diastolic disease and recommends giving her her daily dose of lasix. Also states that the patient has COPD--will give treatment with nebs and steroids. Also spoke to patient's daughter, who states that she does not feel safe caring for the patient at home because she cannot stand and it is too hard for her to change the patient. Daughter is requesting placement if patient is unable to stand when ready for discharge. <Kiana Tineo - Last Filed: 06/15/17 18:37> *DC/Admit/Observation/Transfer - Attestations Scribe Attestion: 06/15/17 13:00 Documentation prepared by Junie Estrella, acting as associate medical director for Kiana Tineo MD. <Junie Estrella - Last Filed: 06/15/17 16:33> - Discharge Dispostion Admit: Yes <Kiana Tineo - Last Filed: 06/15/17 18:37> Diagnosis at time of Disposition: Shortness of breath - Discharge Dispostion Condition at time of disposition: Good - Referrals Referrals: Arvind Ravi MD [Primary Care Provider] -
[2017-06-15 11:43] VITALS: BMI 39.0
[2017-06-15] MEDS ORDERED: morphine CARPU-JECT 2 MG/1 ML DISP.SYRIN IVPUSH ONE ×2 (12:40→17:18)
[2017-06-15] MEDS ORDERED: morphine CARPU-JECT 10 MG/1 ML DISP.SYRIN ONE ×2 (12:57→17:27)
[2017-06-15 13:58] LABS: BASO % 0.8 % (0-2.0); EOS % 3.2 % (0-4.5); HEMATOCRIT 34.8 % (32.4-45.2); LYMPH % 10.6 % (8-40); MCH 27.1 pg (25.7-33.7); MCHC 31.7 g/dl (32.0-36.0); MEAN CELL VOLUME 85.4 fl (80-96); MEAN PLT VOLUME 8.3 fl (7.5-11.1); MONO % 8.5 % (3.8-10.2); NEUT % 76.9 % (42.8-82.8); PLATELET COUNT 222 K/MM3 (134-434); RBC 4.08 M/mm3 (3.60-5.2); RDW 16.1 % (11.6-15.6); WHITE BLOOD COUNT 8.8 K/mm3 (4.0-10.0)
[2017-06-15 14:31] LABS: ALBUMIN 3.6 g/dl (3.4-5.0); ANION GAP 6 (8-16); BILIRUBIN,TOTAL 0.7 mg/dL (0.2-1.0); BLOOD UREA NITROGEN 19 mg/dL (7-18); CALCIUM 8.3 mg/dL (8.5-10.1); CHLORIDE 104 mmol/L (98-107); CO2 29 mmol/L (21-32); CREATININE 0.9 mg/dL (0.55-1.02); GLUCOSE,RANDOM 112 mg/dL (74-106); POTASSIUM 4.2 mmol/L (3.5-5.1); SGOT/AST 11 U/L (15-37); SGPT/ALT 14 U/L (12-78); SODIUM 139 mmol/L (136-145); TOT PROT 6.7 g/dl (6.4-8.2)
[2017-06-15 14:33] LABS: ALK PHOS 70 U/L (45-117); N-TERMINAL BNP 6306.51 pg/ml (5-450)
[2017-06-15 14:55] LABS: INR 1.37 (0.82-1.09); PROTHROMBIN TIME (PATIENT) 15.5 SEC (9.98-11.88)
[2017-06-15 14:58] LABS: ACTIVATED PTT 23.5 SECONDS (26.9-34.4)
[2017-06-15] MEDS ORDERED: methylPREDNISolone NA SUCC 125 MG/2 ML VIAL IVPUSH ONE (18:30)
[2017-06-15] MEDS ORDERED: FUROSEMIDE 40 MG/4 ML INJECTABLE VIAL IVPUSH ONE (18:34)
[2017-06-15] MEDS ORDERED: ALBUTEROL SO4 2.5/IPRATROPIUM 0.5 INH SOL 3 ML VIAL.NEB. NEB ONE ×2 (18:34→19:11)
[2017-06-15] MEDS ORDERED: methylPREDNISolone NA SUCC 125 MG/2 ML VIAL ONE (19:11)
[2017-06-15] MEDS ORDERED: FUROSEMIDE 40 MG/4 ML INJECTABLE VIAL ONE (19:12)
--- NOTE | 2017-06-15 19:41 | CON.CARD ---
Consult Consult Specialty:: Cardiology Referred by:: Emergency Medicine Reason for Consultation:: Dyspnea - History of Present Illness Chief Complaint: Dyspnea History of Present Illness: Patient is an 81 year old female with underlying history of CAD (non-obstructive ), angina pectoris, diastolic LV dysfunction with history of congestive heart failure, mitral valve disease with mitral valve regurgitations, aortic valve disease with mild aortic valve stenosis, tricuspid valve disease with tricuspid valve regurgitation and pulmonary hypertension, persistent atrial fibrillation on Xarelto, HTN/HCVD, type 2 diabetes mellitus, hypercholesterolemia, COPD, anemia, and hip replacement in January presented to the emergency department with worsening right leg pain, difficulty breathing and orthopnea since yesterday. The patient states she has right leg pain at baseline due to a hip replacement in January but states the pain today is worse prompting her visit to the ER. The patient describes her right leg pain as a 9/10 and sharp that is worsened with movement. The patient reports that she went to 2 months of rehab after the hip replacement in January and has been having difficulty ambulating since. The patient notes she takes Tylenol 500 mg for the pain with no relief. As per the daughter, the patient is normally able to stand, but was unable to stand today. The daughter denies any trauma to the right leg. The patient also states she had a slow onset of intermittent shortness of breath yesterday, undergoing chest CT r/o PE, reports med and diet compliance. Allergies: NKA Past surgical history: Rip hip replacement in 2007 and January 2017 Social history: No reported alcohol, cigarette, or drug use. PCP: Dr. Pompa - History Source History Provided By: Patient Limitations to Obtaining History: No Limitations - Past Medical History Cardio/Vascular: Yes: AFIB, Aortic Stenosis, CAD, CHF, HTN, Hyperlipdemia, Mitral Insufficiency, Murmur, Pulmonary Hypertension Pulmonary: Yes: COPD Musculoskeletal: Yes: Osteoarthritis (had hip and knee replacement, still with some healing problems ), Other Endocrine: Yes: Diabetes Mellitus - Past Surgical History Past Surgical History: Yes: Joint Replacement - Alcohol/Substance Use Hx Alcohol Use: No History of Substance Use: reports: None - Smoking History Smoking history: Former smoker Have you smoked in the past 12 months: No Aproximately how many cigarettes per day: 0 If you are a former smoker, when did you quit?: "when I was very [place]" Home Medications - Allergies Allergies/Adverse Reactions: Allergies Allergy/AdvReac Type Severity Reaction Status Date / Time ciprofloxacin [From Cipro] Allergy Verified 06/15/17 11:43 ciprofloxacin HCl Allergy Verified 06/15/17 11:43 [From Cipro] - Home Medications Home Medications: Ambulatory Orders Acetaminophen 500 mg PO TID PRN 12/29/16 Ferrous Sulfate 325 mg PO BID 12/29/16 Furosemide [Lasix] 80 mg PO DAILY 12/29/16 Lisinopril [Zestril] 40 mg PO DAILY 12/29/16 Omeprazole 40 mg PO DAILY 12/29/16 Potassium Chloride 20 meq PO DAILY 12/29/16 Sertraline HCl [Zoloft -] 50 mg PO DAILY 12/29/16 Simvastatin 40 mg PO DAILY 12/29/16 Rivaroxaban [Xarelto] 15 mg PO DAILY #30 tab 12/30/16 Albuterol Sulfate [Proair Hfa] 2 inh IH Q4HWA 06/15/17 Apixaban [Eliquis] 2.5 mg PO BID 06/15/17 Cholecalciferol (Vitamin D3) [Vitamin D3] 30,000 unit PO WEEKLY 06/15/17 Furosemide [Lasix] 40 mg PO HS 06/15/17 Labetalol HCl [Normodyne -] 200 mg PO BID 06/15/17 Repaglinide [Prandin -] 1 mg PO TID 06/15/17 Family Disease History - Family Disease History Family Disease History: Other: Daughter (alive and well) Review of Systems - Review of Systems Respiratory: reports: Orthopnea, SOB on Exertion Musculoskeletal: reports: Joint Pain Vital Signs: Vital Signs Temperature 98.4 F 06/15/17 16:38 Pulse Rate 64 06/15/17 16:38 Respiratory Rate 18 06/15/17 16:38 Blood Pressure 169/79 06/15/17 16:38 O2 Sat by Pulse Oximetry (%) 96 06/15/17 16:38 Constitutional: Yes: No Distress, Calm Neck: Yes: Supple Respiratory: Yes: Regular, Diminished Gastrointestinal: Yes: Normal Bowel Sounds, Soft, Abdomen, Obese Cardiovascular: Yes: Pulse Irregular JVD: No Carotid Bruit: No Heart Sounds: Yes: S1, S2 Murmur: Yes: Systolic Murmur, Grade 1 Edema: No - Other Data Labs, Other Data: CBC, BMP 06/15/17 13:40 06/15/17 13:40 INR, PTT INR 1.37 (0.82-1.09) H 06/15/17 13:40 Troponin, BNP 06/15/17 13:40 Troponin I 0.02 B-Natriuretic Peptide 6306.51 H Troponin, BNP 06/15/17 13:40 Troponin I 0.02 B-Natriuretic Peptide 6306.51 H Imaging - Results Cat Scan: Report Reviewed (Right hip pseudoarthrosis) EKG: Report Reviewed (Afib @ 69 PRWP) Problem List - Problems (1) Shortness of breath Code(s): R06.02 - SHORTNESS OF BREATH (2) HTN (hypertension) Code(s): I10 - ESSENTIAL (PRIMARY) HYPERTENSION Qualifiers: Hypertension type: essential hypertension Qualified Code(s): I10 - Essential (primary) hypertension (3) Aortic valve stenosis Code(s): I35.0 - NONRHEUMATIC AORTIC (VALVE) STENOSIS Qualifiers: Cardiac valve disease etiology: nonrheumatic Qualified Code(s): I35.0 - Nonrheumatic aortic (valve) stenosis (4) Atrial fibrillation Code(s): I48.91 - UNSPECIFIED ATRIAL FIBRILLATION Qualifiers: Atrial fibrillation type: persistent Qualified Code(s): I48.1 - Persistent atrial fibrillation (5) COPD (chronic obstructive pulmonary disease) Code(s): J44.9 - CHRONIC OBSTRUCTIVE PULMONARY DISEASE, UNSPECIFIED Qualifiers: COPD type: unspecified COPD Qualified Code(s): J44.9 - Chronic obstructive pulmonary disease, unspecified (6) Diabetes mellitus Code(s): E11.9 - TYPE 2 DIABETES MELLITUS WITHOUT COMPLICATIONS Qualifiers: Diabetes mellitus type: type 2 (7) Diastolic dysfunction Code(s): I51.9 - HEART DISEASE, UNSPECIFIED (8) Hypercholesterolemia Code(s): E78.00 - PURE HYPERCHOLESTEROLEMIA, UNSPECIFIED (9) Mitral valve regurgitation Code(s): I34.0 - NONRHEUMATIC MITRAL (VALVE) INSUFFICIENCY Qualifiers: Cardiac valve disease etiology: nonrheumatic Qualified Code(s): I34.0 - Nonrheumatic mitral (valve) insufficiency (10) Tricuspid valve regurgitation Code(s): I07.1 - RHEUMATIC TRICUSPID INSUFFICIENCY Qualifiers: Cardiac valve disease etiology: nonrheumatic Qualified Code(s): I36.1 - Nonrheumatic tricuspid (valve) insufficiency Assessment/Plan 1. Acute on chronic diastolic failure, r/o PE 2. COPD 3. Non-obstructive CAD, angina pectoris 4. Mitral valve regurgitation 5. Aortic valve stenosis 6. Tricuspid valve regurgitation 7. Pulmonary HTN 8. Persistent atrial fibrillation [id number] 9. HTN/HCVD 10. Type 2 diabetes mellitus 11. Hypercholesterolemia PLAN: 1. F/u chest CTA r/o PE 2. IV diuresis with monitor diuretic response, renal fxn and electrolytes 3. Continue Labetalol 200 qd, Amlodipine 5 qd, Lipitor 20 qhs, Prinivil 40 qd and Eliquis 5 bid 4. Review outpatient cardiovascular work-up 5. Thank you for consultative opportunity Rivaroxaban [Xarelto] 15 mg PO DAILY #30 tab 12/30/16 Albuterol Sulfate [Proair Hfa] 2 inh IH Q4HWA 06/15/17 Apixaban [Eliquis] 2.5 mg PO BID 06/15/17 Cholecalciferol (Vitamin D3) [Vitamin D3] 30,000 unit PO WEEKLY 06/15/17 Furosemide [Lasix] 40 mg PO HS 06/15/17 Labetalol HCl [Normodyne -] 200 mg PO BID 06/15/17 Repaglinide [Prandin -] 1 mg PO TID 06/15/17
--- NOTE | 2017-06-15 19:58 | HP ---
CHIEF COMPLAINT: SOB, R- hip/knee pain PCP: Dr. Pompa HISTORY OF PRESENT ILLNESS: This is a 81 y/o woman with a past medical history of: HTN, HLD, CHF, COPD, Asthma, DM, Anemia. Who presents to the ED with intermittent SOB x2 days, increased pain to her right hip and knee unable to stand today. The patient states she has right leg pain at baseline due to a hip replacement in January but states the pain today is worse prompting her visit to the ER. The patient describes her right leg pain as a 9/10 and sharp that is worsened with movement. The patient reports that she completed 2 months of Rehab, after the hip replacement in January and has been having difficulty ambulating since. The patient notes she takes Tylenol 500 mg for the pain with no relief. Patient denies recent fall or trauma. Patient denies fever, chills, cough, CP, palpitations, AP, N/V/D, constipation, dysuria. ER course was notable for: (1) BNP 6306 (2) Chest Xray- no acute pathology (3) R- hip/pelvis xray- fracture distal shaft femur stabilized w/plates, screws , wires, correlation recommended (4) Pelvis CT- possible pseudoathrosis Recent Travel: None PAST MEDICAL HISTORY: See HPI PAST SURGICAL HISTORY: s/p R- Hip replacement (01/2017) Social History: Smoking: Former Alcohol: None Drugs: None Lives with family Family History: Allergies ciprofloxacin [From Cipro] Allergy (Verified 06/15/17 11:43) ciprofloxacin HCl [From Cipro] Allergy (Verified 06/15/17 11:43) HOME MEDICATIONS: Home Medications Medication Instructions Recorded Acetaminophen 500 mg PO TID PRN 12/29/16 Ferrous Sulfate 325 mg PO BID 12/29/16 Furosemide [Lasix] 80 mg PO DAILY 12/29/16 Lisinopril [Zestril] 40 mg PO DAILY 12/29/16 Omeprazole 40 mg PO DAILY 12/29/16 Potassium Chloride 20 meq PO DAILY 12/29/16 Sertraline HCl [Zoloft -] 50 mg PO DAILY 12/29/16 Simvastatin 40 mg PO DAILY 12/29/16 Rivaroxaban [Xarelto] 15 mg PO DAILY #30 tab 12/30/16 Albuterol Sulfate [Proair Hfa] 2 inh IH Q4HWA 06/15/17 Apixaban [Eliquis] 2.5 mg PO BID 06/15/17 Cholecalciferol (Vitamin D3) 30,000 unit PO WEEKLY 06/15/17 [Vitamin D3] Furosemide [Lasix] 40 mg PO HS 06/15/17 Labetalol HCl [Normodyne -] 200 mg PO BID 06/15/17 Repaglinide [Prandin -] 1 mg PO TID 06/15/17 REVIEW OF SYSTEMS CONSTITUTIONAL: Absent: fever, chills, diaphoresis, generalized weakness, malaise, loss of appetite, weight change HEENT: Absent: rhinorrhea, nasal congestion, throat pain, throat swelling, difficulty swallowing, mouth swelling, ear pain, eye pain, visual changes CARDIOVASCULAR: Absent: chest pain, syncope, palpitations, irregular heart rate, lightheadedness , peripheral edema RESPIRATORY: shortness of breath, dyspnea with exertion, orthopnea Absent: cough, wheezing, stridor, hemoptysis GASTROINTESTINAL: Absent: abdominal pain, abdominal distension, nausea, vomiting, diarrhea, constipation, melena, hematochezia GENITOURINARY: Absent: dysuria, frequency, urgency, hesitancy, hematuria, flank pain, genital pain MUSCULOSKELETAL: myalgia, arthralgia, right hip pain, right knee pain Absent: joint swelling, back pain, neck pain SKIN: Absent: rash, itching, pallor HEMATOLOGIC/IMMUNOLOGIC: Absent: easy bleeding, easy bruising, lymphadenopathy, frequent infections ENDOCRINE: Absent: unexplained weight gain, unexplained weight loss, heat intolerance, cold intolerance NEUROLOGIC: Absent: headache, focal weakness or paresthesias, dizziness, unsteady gait, seizure, mental status changes, bladder or bowel incontinence PSYCHIATRIC: Absent: anxiety, depression, suicidal or homicidal ideation, hallucinations. PHYSICAL EXAMINATION Vital Signs - 24 hr 06/15/17 06/15/17 06/15/17 11:38 11:51 14:03 Temperature 98.7 F Pulse Rate 65 Pulse Rate [ 67 Apical] Respiratory 18 18 Rate Blood Pressure 190/89 Blood Pressure 165/83 [Right Arm] O2 Sat by Pulse 100 97 97 Oximetry (%) 06/15/17 16:38 Temperature 98.4 F Pulse Rate Pulse Rate [ 64 Apical] Respiratory 18 Rate Blood Pressure Blood Pressure 169/79 [Right Arm] O2 Sat by Pulse 96 Oximetry (%) GENERAL: Awake, alert, and fully oriented, in no acute distress. HEAD: Normal with no signs of trauma. EYES: Pupils equal, round and reactive to light, extraocular movements intact, sclera anicteric, conjunctiva clear. No lid lag. EARS, NOSE, THROAT: Ears normal, nares patent, oropharynx clear without exudates. Moist mucous membranes. NECK: Normal range of motion, supple without lymphadenopathy, JVD, or masses. LUNGS: Breath sounds diminished at bases, scattered rhonchi throughout . No wheezes. No accessory muscle use. HEART: Irregular rate and rhythm, normal S1 and S2 Grade 1/6 systolic murmur, No rub or gallop. ABDOMEN: Soft, obese, nontender, not distended, normoactive bowel sounds, no guarding, no rebound, no masses. No hepatomegaly or splenomegaly. MUSCULOSKELETAL: Right hip, right knee tenderness. Limited range of motion at all joints. No bony deformities. No CVA tenderness. UPPER EXTREMITIES: 2+ pulses, warm, well-perfused. No cyanosis. No clubbing. No peripheral edema. LOWER EXTREMITIES: 2+ pulses, warm, well-perfused. No calf tenderness. No peripheral edema. NEUROLOGICAL: Cranial nerves II-XII intact. Normal speech. Gait not observed. PSYCHIATRIC: Cooperative. Good eye contact. Appropriate mood and affect. SKIN: Warm, dry, normal turgor, no rashes or lesions noted, normal capillary refill. Laboratory Results - last 24 hr 06/15/17 06/15/17 06/15/17 13:40 13:40 13:40 WBC 8.8 D RBC 4.08 D Hgb 11.0 D Hct 34.8 D MCV 85.4 MCH 27.1 MCHC 31.7 L RDW 16.1 H D Plt Count 222 D MPV 8.3 Neutrophils % 76.9 Lymphocytes % 10.6 D Monocytes % 8.5 Eosinophils % 3.2 Basophils % 0.8 PT with INR 15.50 H INR 1.37 H PTT (Actin FS) 23.5 L D Sodium 139 Potassium 4.2 Chloride 104 Carbon Dioxide 29 Anion Gap 6 L BUN 19 H Creatinine 0.9 Creat Clearance w eGFR 59.94 Random Glucose 112 H Calcium 8.3 L Total Bilirubin 0.7 D AST 11 L ALT 14 Alkaline Phosphatase 70 Creatine Kinase 37 Troponin I 0.02 B-Natriuretic Peptide 6306.51 H Total Protein 6.7 Albumin 3.6 ASSESSMENT/PLAN: 81 y/o woman with a PMHx of: HTN, HLD, CHF, COPD, Asthma, DM, Anemia. Placed on Tele Observation SOB secondary to Acute on Chronic Diastolic Failure, COPD. Plan: 1. Cardiology: Acute on Chronic Diastolic Failure Hypertension Hyperlipidemia Atrial Fibrillation - Cardiac monitoring - BNP 6306, given Lasix in ED - Chest Xray- no acute pathology, however patient reports increased SOB on exertion, Orthopnea - CTA r/o PE- report pending - Continue Lasix IV - Strict INOs - Daily weights - Cardiology following - Serial Enzymes - EKG- Afib - O2 - Continue home meds, per cardiology recommendations 2. Pulmonology COPD Asthma - Likely Acute on Chronic - Solumederol given in ED, continue with taper - Duonebs - Appreciate Pulmonology consult - Monitor vitals 3. Endocrinology Diabetes Mellitus Type II - Controlled - BGMs - Continue home med - ISS - Monitor renal function 4. Orthopedics - s/p Right Hip Replacement - Right Hip, Knee, Leg pain - Pt unable to ambulate - R-hip/pelvis xray report- fracture at distal shaft of the femur stabilized by a plate, screws, wires, correlation recommended - CT Pelvis report- possible pseudoathrosis - Appreciate Ortho Consult - Given Morphine in ED for pain mgmt - Oxycodone prn 5. Hematology Anemia - H/H at baseline - Will transfuse if Hgb < 7.0 - Monitor CBC 6. FEN - Fluid Restriction 500ml - Replete lytes prn - Low Na, Diabetic Diet 7. DVT Prophylaxis - Continue Eliquis Code Status: Full Code Dispo: Tele Observation Problem List - Problem (1) Shortness of breath Code(s): R06.02 - SHORTNESS OF BREATH (2) Acute on chronic diastolic (congestive) heart failure Code(s): I50.33 - ACUTE ON CHRONIC DIASTOLIC (CONGESTIVE) HEART FAILURE (3) COPD (chronic obstructive pulmonary disease) Code(s): J44.9 - CHRONIC OBSTRUCTIVE PULMONARY DISEASE, UNSPECIFIED Qualifiers: COPD type: unspecified COPD Qualified Code(s): J44.9 - Chronic obstructive pulmonary disease, unspecified (4) Right hip pain Code(s): M25.551 - PAIN IN RIGHT HIP (5) Right leg pain Code(s): M79.604 - PAIN IN RIGHT LEG (6) HTN (hypertension) Code(s): I10 - ESSENTIAL (PRIMARY) HYPERTENSION Qualifiers: Hypertension type: essential hypertension Qualified Code(s): I10 - Essential (primary) hypertension (7) Atrial fibrillation Code(s): I48.91 - UNSPECIFIED ATRIAL FIBRILLATION Qualifiers: Atrial fibrillation type: persistent Qualified Code(s): I48.1 - Persistent atrial fibrillation (8) Aortic valve stenosis Code(s): I35.0 - NONRHEUMATIC AORTIC (VALVE) STENOSIS Qualifiers: Cardiac valve disease etiology: nonrheumatic Qualified Code(s): I35.0 - Nonrheumatic aortic (valve) stenosis (9) Mitral valve regurgitation Code(s): I34.0 - NONRHEUMATIC MITRAL (VALVE) INSUFFICIENCY Qualifiers: Cardiac valve disease etiology: nonrheumatic Qualified Code(s): I34.0 - Nonrheumatic mitral (valve) insufficiency (10) Tricuspid valve regurgitation Code(s): I07.1 - RHEUMATIC TRICUSPID INSUFFICIENCY Qualifiers: Cardiac valve disease etiology: nonrheumatic Qualified Code(s): I36.1 - Nonrheumatic tricuspid (valve) insufficiency (11) Diabetes mellitus Code(s): E11.9 - TYPE 2 DIABETES MELLITUS WITHOUT COMPLICATIONS Qualifiers: Diabetes mellitus type: type 2 (12) Hypercholesterolemia Code(s): E78.00 - PURE HYPERCHOLESTEROLEMIA, UNSPECIFIED (13) Anemia Code(s): D64.9 - ANEMIA, UNSPECIFIED (14) DVT prophylaxis Code(s): HQH7146 - Visit type - Emergency Visit Emergency Visit: Yes ED Registration Date: 06/15/17 Care time: The patient presented to the Emergency Department on the above date and was hospitalized for further evaluation of their emergent condition. - New Patient This patient is new to me today: Yes Date on this admission: 06/15/17 - Critical Care Critical Care patient: No
[2017-06-15 21:54] LABS: URINE APPEARANCE CLEAR; URINE BILIRUBIN NEGATIVE (NEGATIVE); URINE BLOOD 1+ (NEGATIVE); URINE COLOR STRAW; URINE GLUCOSE (UA) NEGATIVE (NEGATIVE); URINE KETONE NEGATIVE (NEGATIVE); URINE NITRITE NEGATIVE (NEGATIVE); URINE UROBILINOGEN NEGATIVE mg/dL (0.2-1.0)
[2017-06-15 21:59] LABS: URINE LEUK ESTERASE 1+ (NEGATIVE); URINE PROTEIN 1+ (NEGATIVE)
[2017-06-15 22:04] LABS: EPI CELLS RARE /HPF (FEW); URINE HYALINE CAST 1 /lpf; URINE MUCUS RARE
[2017-06-16] MEDS ORDERED: DOCUSATE SODIUM 100 MG CAPSULE (FP) PO PRN (05:46)
[2017-06-16 09:11] LABS: BASO % 0.2 % (0-2.0); EOS % 0.1 % (0-4.5); HEMATOCRIT 37.1 % (32.4-45.2); HEMOGLOBIN 11.7 GM/dL (10.7-15.3); LYMPH % 9.3 % (8-40); MCHC 31.6 g/dl (32.0-36.0); MEAN CELL VOLUME 85.7 fl (80-96); MEAN PLT VOLUME 8.9 fl (7.5-11.1); MONO % 2.6 % (3.8-10.2); NEUT % 87.8 % (42.8-82.8); PLATELET COUNT 236 K/MM3 (134-434); RBC 4.33 M/mm3 (3.60-5.2); WHITE BLOOD COUNT 4.2 K/mm3 (4.0-10.0)
[2017-06-16 09:36] LABS: ANION GAP 8 (8-16); BLOOD UREA NITROGEN 22 mg/dL (7-18); CALCIUM 8.5 mg/dL (8.5-10.1); CHLORIDE 102 mmol/L (98-107); CO2 29 mmol/L (21-32); GLUCOSE,RANDOM 238 mg/dL (74-106); PHOSPHOROUS 4.7 mg/dL (2.5-4.9); POTASSIUM 4.2 mmol/L (3.5-5.1); SODIUM 139 mmol/L (136-145)
[2017-06-16 09:44] LABS: CREATININE 1.1 mg/dL (0.55-1.02)
[2017-06-16] MEDS ORDERED: FUROSEMIDE 40 MG TABLET (FP) PO SCH (10:00)
[2017-06-16] MEDS ORDERED: LABETALOL HCL 200 MG TABLET (FP) PO SCH ×2 (10:00)
[2017-06-16] MEDS ORDERED: FUROSEMIDE 40 MG/4 ML INJECTABLE VIAL IVPUSH SCH (10:00)
[2017-06-16] MEDS ORDERED: oxyCODONE HCL 5 MG TABLET ONE ×2 (11:22→16:52)
[2017-06-16] MEDS: amLODIPine BESYLATE 5 MG TABLET (FP) PO SCH (11:39)
[2017-06-16] MEDS: APIXABAN 5 MG TABLET PO SCH ×2 (11:39→22:07)
[2017-06-16] MEDS: oxyCODONE HCL 5 MG TABLET PO PRN ×2 (11:39→17:00)
[2017-06-16] MEDS: LISINOPRIL 20 MG TABLET (FP) PO SCH (11:39)
--- NOTE | 2017-06-16 12:58 | EKG ---
Test Reason : Blood Pressure : / mmHG Vent. Rate : 069 BPM Atrial Rate : 300 BPM P-R Int : 000 ms QRS Dur : 096 ms QT Int : 394 ms P-R-T Axes : 000 -55 046 degrees QTc Int : 422 ms ATRIAL FIBRILLATION LEFT AXIS DEVIATION ANTERIOR INFARCT , AGE UNDETERMINED ABNORMAL ECG WHEN COMPARED WITH ECG OF 29-DEC-2016 19:19, NO SIGNIFICANT CHANGE WAS FOUND Confirmed by Dae Koch ([id number]) on 06/16/2017 12:57:43 PM Referred By: Confirmed By:Dae Koch
--- NOTE | 2017-06-16 13:13 | PN ---
Progress Note (short form) - Note Progress Note: Subjective: The patient was seen and examined at the bedside, she has complaints of right hip pain Current Medications Generic Name Dose Route Start Last Admin Trade Name Hilario PRN Reason Stop Dose Admin Amlodipine Besylate 5 mg 06/16/17 10:00 06/16/17 11:39 Norvasc - PO 5 mg DAILY PK Administration Apixaban 5 mg 06/16/17 10:00 06/16/17 11:39 Eliquis - PO 5 mg BID PK Administration Atorvastatin Calcium 20 mg 06/16/17 22:00 Lipitor - PO HS PK Docusate Sodium 100 mg 06/16/17 05:46 Colace - PO BID PRN CONSTIPATION Furosemide 40 mg 06/17/17 10:00 Lasix - PO DAILY PK Labetalol HCl 200 mg 06/16/17 22:00 Normodyne - PO BID PK Lisinopril 40 mg 06/16/17 10:00 06/16/17 11:39 Prinivil PO 40 mg DAILY PK Administration Methylprednisolone Sodium Succinate 40 mg 06/16/17 13:15 06/16/17 17:10 Solu-Medrol - IVPUSH 40 mg BID PK Administration Oxycodone HCl 5 mg 06/16/17 05:46 06/16/17 17:00 Roxicodone - PO 5 mg Q6H PRN Administration PAIN LEVEL 6-10 Objective: Vital Signs Period Temp Pulse Resp BP Sys/Mo Pulse Ox Last 24 Hr 97.9 F-98.9 F 81-87 18-18 160-169/67-98 98-98 Physical Exam: Patient refused, stating she was in "too much pain" CBCD WBC 4.2 K/mm3 (4.0-10.0) D 06/16/17 08:21 RBC 4.33 M/mm3 (3.60-5.2) 06/16/17 08:21 Hgb 11.7 GM/dL (10.7-15.3) 06/16/17 08:21 Hct 37.1 % (32.4-45.2) 06/16/17 08:21 MCV 85.7 fl (80-96) 06/16/17 08:21 MCHC 31.6 g/dl (32.0-36.0) L 06/16/17 08:21 RDW 16.0 % (11.6-15.6) H 06/16/17 08:21 Plt Count 236 K/MM3 (134-434) 06/16/17 08:21 MPV 8.9 fl (7.5-11.1) 06/16/17 08:21 CMP Sodium 139 mmol/L (136-145) 06/16/17 08:21 Potassium 4.2 mmol/L (3.5-5.1) 06/16/17 08:21 Chloride 102 mmol/L (98-107) 06/16/17 08:21 Carbon Dioxide 29 mmol/L (21-32) 06/16/17 08:21 Anion Gap 8 (8-16) 06/16/17 08:21 BUN 22 mg/dL (7-18) H 06/16/17 08:21 Creatinine 1.1 mg/dL (0.55-1.02) H 06/16/17 08:21 Creat Clearance w eGFR 59.94 (>60) 06/15/17 13:40 Random Glucose 238 mg/dL (74-106) H 06/16/17 08:21 Calcium 8.5 mg/dL (8.5-10.1) 06/16/17 08:21 Total Bilirubin 0.7 mg/dL (0.2-1.0) D 06/15/17 13:40 AST 11 U/L (15-37) L 06/15/17 13:40 ALT 14 U/L (12-78) 06/15/17 13:40 Alkaline Phosphatase 70 U/L (45-117) 06/15/17 13:40 Total Protein 6.7 g/dl (6.4-8.2) 06/15/17 13:40 Albumin 3.6 g/dl (3.4-5.0) 06/15/17 13:40 CARDIAC ENZYMES Creatine Kinase 37 IU/L (26-192) 06/15/17 13:40 Troponin I < 0.02 ng/ml (0.00-0.05) 06/16/17 08:21 Assessment: This is an 81 year old female with PMHx of HTN, HLD, CHF, COPD, Asthma, DM, Anemia who presented to the ED with intermittent shortness of breath and increased right hip pain and unable to stand Plan: 1) Cardiology: Acute on chronic diastolic heart failure - Resolving - Resume oral diuretics - Daily weights - Strict I&O - BNP elevated, however around the same as last admission - Chest X-ray with no PE, pleural effusion, + small airway disease - Continue tele monitoring - Appreciate cardiology consult HTN - Continue Norvasc - Continue Lisinopril - Continue Labetolol Hyperlipidemia - Continue Lipitor A.fib - Continue Eliquis 5mg po bid 2) Pulmonary: Acute on chronic COPD exacerbation - Solu-medrol taper - Duonebs prn 3) Ortho: - S/p right hip replacement in 01/2017 - Now with right leg/hip pain, f/u lower extremity dopplers to r/o DVT - Patient is unable to ambulation now - R-hip/pelvis xray- fracture at distal shaft of the femur stabilized by a plate , screws, wires, correlation recommended - CT Pelvis- possible pseudoathrosis - Pain management - F/u ortho consult 4) Endocrine: DM - BGM ACHS - ISS ACHS 5) Anemia: - Continue ferrous sulfate 6) F/E/N: - Sodium controlled diet - Monitor electrolytes 7) Prophylaxis: - On Eliquis - PT evaluation 8) Dispo: - Requires continued inpatient care CODE STATUS: FULL CODE Visit type - Emergency Visit Emergency Visit: Yes ED Registration Date: 06/15/17 Care time: The patient presented to the Emergency Department on the above date and was hospitalized for further evaluation of their emergent condition. - New Patient This patient is new to me today: Yes Date on this admission: 06/16/17 - Critical Care Critical Care patient: No
--- NOTE | 2017-06-16 15:40 | PN ---
Progress Note, Physician History of Present Illness: Dyspnea improving with diuresis, chest CT shows no PE, pleural effusion, + small airway disease. - Current Medication List Current Medications: Active Medications Amlodipine Besylate (Norvasc -) 5 mg PO DAILY [facility] Last Admin: 06/16/17 11:39 Dose: 5 mg Apixaban (Eliquis -) 5 mg PO BID [facility] Last Admin: 06/16/17 11:39 Dose: 5 mg Atorvastatin Calcium (Lipitor -) 20 mg PO HS [facility] Docusate Sodium (Colace -) 100 mg PO BID PRN PRN Reason: CONSTIPATION Furosemide (Lasix Injection -) 40 mg IVPUSH DAILY [facility] Last Admin: 06/16/17 11:39 Dose: 40 mg Labetalol HCl (Normodyne -) 200 mg PO DAILY [facility] Last Admin: 06/16/17 11:39 Dose: 200 mg Lisinopril (Prinivil) 40 mg PO DAILY [facility] Last Admin: 06/16/17 11:39 Dose: 40 mg Methylprednisolone Sodium Succinate (Solu-Medrol -) 40 mg IVPUSH BID [facility] Oxycodone HCl (Roxicodone -) 5 mg PO Q6H PRN PRN Reason: PAIN LEVEL 6-10 Last Admin: 06/16/17 11:39 Dose: 5 mg - Objective Vital Signs: Vital Signs Temperature 97.9 F 06/16/17 11:39 Pulse Rate 87 06/16/17 11:39 Respiratory Rate 18 06/16/17 11:39 Blood Pressure 169/67 06/16/17 11:39 O2 Sat by Pulse Oximetry (%) 98 06/16/17 11:39 Constitutional: Yes: No Distress, Calm Neck: Yes: Supple Cardiovascular: Yes: Pulse Irregular, Murmur (2/6 SM) Respiratory: Yes: Regular, Diminished, On Nasal O2 Gastrointestinal: Yes: Normal Bowel Sounds, Soft, Abdomen, Obese Edema: No Labs: CBC, BMP 06/16/17 08:21 06/16/17 08:21 INR, PTT INR 1.37 (0.82-1.09) H 06/15/17 13:40 Problem List - Problems (1) Shortness of breath Code(s): R06.02 - SHORTNESS OF BREATH (2) HTN (hypertension) Code(s): I10 - ESSENTIAL (PRIMARY) HYPERTENSION Qualifiers: Hypertension type: essential hypertension Qualified Code(s): I10 - Essential (primary) hypertension (3) Aortic valve stenosis Code(s): I35.0 - NONRHEUMATIC AORTIC (VALVE) STENOSIS Qualifiers: Cardiac valve disease etiology: nonrheumatic Qualified Code(s): I35.0 - Nonrheumatic aortic (valve) stenosis (4) Atrial fibrillation Code(s): I48.91 - UNSPECIFIED ATRIAL FIBRILLATION Qualifiers: Atrial fibrillation type: persistent Qualified Code(s): I48.1 - Persistent atrial fibrillation (5) COPD (chronic obstructive pulmonary disease) Code(s): J44.9 - CHRONIC OBSTRUCTIVE PULMONARY DISEASE, UNSPECIFIED Qualifiers: COPD type: unspecified COPD Qualified Code(s): J44.9 - Chronic obstructive pulmonary disease, unspecified (6) Diabetes mellitus Code(s): E11.9 - TYPE 2 DIABETES MELLITUS WITHOUT COMPLICATIONS Qualifiers: Diabetes mellitus type: type 2 (7) Diastolic dysfunction Code(s): I51.9 - HEART DISEASE, UNSPECIFIED (8) Hypercholesterolemia Code(s): E78.00 - PURE HYPERCHOLESTEROLEMIA, UNSPECIFIED (9) Mitral valve regurgitation Code(s): I34.0 - NONRHEUMATIC MITRAL (VALVE) INSUFFICIENCY Qualifiers: Cardiac valve disease etiology: nonrheumatic Qualified Code(s): I34.0 - Nonrheumatic mitral (valve) insufficiency (10) Tricuspid valve regurgitation Code(s): I07.1 - RHEUMATIC TRICUSPID INSUFFICIENCY Qualifiers: Cardiac valve disease etiology: nonrheumatic Qualified Code(s): I36.1 - Nonrheumatic tricuspid (valve) insufficiency Assessment/Plan 06/15/2017 chest CTA no PE, resolved effusion 1. Acute on chronic diastolic failure, resolving 2. COPD 3. Non-obstructive CAD, angina pectoris 4. Mitral valve regurgitation 5. Aortic valve stenosis 6. Tricuspid valve regurgitation 7. Pulmonary HTN 8. Persistent atrial fibrillation [id number] 9. HTN/HCVD 10. Type 2 diabetes mellitus 11. Hypercholesterolemia PLAN: 1. Resume oral diuresis with monitor diuretic response, renal fxn and electrolytes 2. Continue Labetalol 200 bid, Amlodipine 5 qd, Lipitor 20 qhs, Prinivil 40 qd and Eliquis 5 bid 3. Review outpatient cardiovascular work-up
[2017-06-16] MEDS ORDERED: methylPREDNISolone NA SUCC 40 MG/1 ML VIAL ONE (16:52)
[2017-06-16] MEDS: methylPREDNISolone NA SUCC 40 MG/1 ML VIAL IVPUSH SCH ×2 (17:10→22:51)
[2017-06-16] MEDS: ATORVASTATIN CA 20 MG TABLET (FP) PO SCH (22:07)
[2017-06-16] MEDS: LABETALOL HCL 200 MG TABLET (FP) PO SCH (22:07)
[2017-06-16] MEDS ORDERED: ALBUTEROL SO4 2.5/IPRATROPIUM 0.5 INH SOL 3 ML VIAL.NEB. NEB PRN (22:23)
[2017-06-17 07:15] LABS: HEMATOCRIT 34.2 % (32.4-45.2); MCH 27.4 pg (25.7-33.7); MEAN CELL VOLUME 85.6 fl (80-96); MEAN PLT VOLUME 8.9 fl (7.5-11.1); PLATELET COUNT 240 K/MM3 (134-434); RDW 16.1 % (11.6-15.6); WHITE BLOOD COUNT 7.3 K/mm3 (4.0-10.0)
[2017-06-17 07:35] LABS: ANION GAP 9 (8-16); BLOOD UREA NITROGEN 40 mg/dL (7-18); CALCIUM 8.2 mg/dL (8.5-10.1); CHLORIDE 102 mmol/L (98-107); CO2 29 mmol/L (21-32); CREATININE 1.4 mg/dL (0.55-1.02); GLUCOSE,RANDOM 274 mg/dL (74-106); POTASSIUM 4.4 mmol/L (3.5-5.1); SODIUM 140 mmol/L (136-145)
--- NOTE | 2017-06-17 10:06 | PN ---
Progress Note, Physician Chief Complaint: Events noted Appears comfortable with less dyspnea, but persists intermittently Complains of hip pain History of Present Illness: Patient was seen and examined. Awake and alert. Chart was reviewed Denies chest pain or palpitations Above noted - Current Medication List Current Medications: Active Medications Albuterol/Ipratropium (Duoneb -) 1 amp NEB Q6H PRN PRN Reason: SHORTNESS OF BREATH Amlodipine Besylate (Norvasc -) 5 mg PO DAILY [facility] Last Admin: 06/16/17 11:39 Dose: 5 mg Apixaban (Eliquis -) 5 mg PO BID [facility] Last Admin: 06/16/17 22:07 Dose: 5 mg Atorvastatin Calcium (Lipitor -) 20 mg PO HS [facility] Last Admin: 06/16/17 22:07 Dose: 20 mg Docusate Sodium (Colace -) 100 mg PO BID PRN PRN Reason: CONSTIPATION Ferrous Sulfate (Feosol -) 325 mg PO BID [facility] Furosemide (Lasix -) 40 mg PO DAILY [facility] Labetalol HCl (Normodyne -) 200 mg PO BID [facility] Last Admin: 06/16/17 22:07 Dose: 200 mg Lisinopril (Prinivil) 40 mg PO DAILY [facility] Last Admin: 06/16/17 11:39 Dose: 40 mg Methylprednisolone Sodium Succinate (Solu-Medrol -) 40 mg IVPUSH BID [facility] Last Admin: 06/16/17 22:51 Dose: 40 mg Oxycodone HCl (Roxicodone -) 5 mg PO Q6H PRN PRN Reason: PAIN LEVEL 6-10 Last Admin: 06/16/17 17:00 Dose: 5 mg Pantoprazole Sodium (Protonix -) 40 mg PO DAILY [facility] Sertraline HCl (Zoloft -) 50 mg PO DAILY [facility] - Objective Vital Signs: Vital Signs Temperature 97.9 F 06/17/17 05:39 Pulse Rate 74 06/17/17 05:39 Respiratory Rate 20 06/17/17 05:39 Blood Pressure 186/84 06/17/17 05:39 O2 Sat by Pulse Oximetry (%) 97 06/16/17 17:00 Constitutional: Yes: Well Nourished Eyes: Yes: PERRL HENT: Yes: Atraumatic Neck: Yes: Supple Cardiovascular: Yes: Pulse Irregular, Murmur (Soft JAZMYN), S1, S2 Respiratory: Yes: Diminished Gastrointestinal: Yes: Normal Bowel Sounds, Soft, Abdomen, Obese. No: Tenderness Edema: No Additional Findings/Remarks: - Review of Systems Constitutional: Denies: Weakness. denies: Chills, Fever Cardiovascular: denies: Chest Pain, denies: Palpitations, (+) Shortness of Breath Respiratory: (+) Cough, denies: Hemoptysis, Orthopnea, PND, (+) SOB, SOB on Exertion Gastrointestinal: denies: Abdominal Pain, Constipation, Diarrhea, Melena, Nausea , Rectal Bleeding, Vomiting Genitourinary: denies: Dysuria, Hematuria Musculoskeletal: denies: Joint Pain Neurological: Denies: Weakness. denies: Dizziness, Headache, Seizure, Syncope Labs: CBC, BMP 06/17/17 06:40 06/17/17 06:15 INR, PTT INR 1.37 (0.82-1.09) H 06/15/17 13:40 Problem List - Problems (1) Acute on chronic diastolic (congestive) heart failure Code(s): I50.33 - ACUTE ON CHRONIC DIASTOLIC (CONGESTIVE) HEART FAILURE (2) Anemia Code(s): D64.9 - ANEMIA, UNSPECIFIED Qualifiers: Anemia type: unspecified type Qualified Code(s): D64.9 - Anemia, unspecified (3) Right hip pain Code(s): M25.551 - PAIN IN RIGHT HIP (4) Shortness of breath Code(s): R06.02 - SHORTNESS OF BREATH (5) Epistaxis Code(s): R04.0 - EPISTAXIS (6) HTN (hypertension) Code(s): I10 - ESSENTIAL (PRIMARY) HYPERTENSION Qualifiers: Hypertension type: essential hypertension Qualified Code(s): I10 - Essential (primary) hypertension (7) Aortic valve stenosis Code(s): I35.0 - NONRHEUMATIC AORTIC (VALVE) STENOSIS Qualifiers: Cardiac valve disease etiology: nonrheumatic Qualified Code(s): I35.0 - Nonrheumatic aortic (valve) stenosis (8) Atrial fibrillation Code(s): I48.91 - UNSPECIFIED ATRIAL FIBRILLATION Qualifiers: Atrial fibrillation type: persistent Qualified Code(s): I48.1 - Persistent atrial fibrillation (9) COPD (chronic obstructive pulmonary disease) Code(s): J44.9 - CHRONIC OBSTRUCTIVE PULMONARY DISEASE, UNSPECIFIED Qualifiers: COPD type: unspecified COPD Qualified Code(s): J44.9 - Chronic obstructive pulmonary disease, unspecified (10) Diabetes mellitus Code(s): E11.9 - TYPE 2 DIABETES MELLITUS WITHOUT COMPLICATIONS Qualifiers: Diabetes mellitus type: type 2 Diabetes mellitus complication status: without complication Diabetes mellitus assisted insulin use: without assisted use Qualified Code(s): E11.9 - Type 2 diabetes mellitus without complications (11) Diastolic dysfunction Code(s): I51.9 - HEART DISEASE, UNSPECIFIED (12) Hypercholesterolemia Code(s): E78.00 - PURE HYPERCHOLESTEROLEMIA, UNSPECIFIED (13) Mitral valve regurgitation Code(s): I34.0 - NONRHEUMATIC MITRAL (VALVE) INSUFFICIENCY Qualifiers: Cardiac valve disease etiology: nonrheumatic Qualified Code(s): I34.0 - Nonrheumatic mitral (valve) insufficiency (14) Tricuspid valve regurgitation Code(s): I07.1 - RHEUMATIC TRICUSPID INSUFFICIENCY Qualifiers: Cardiac valve disease etiology: nonrheumatic Qualified Code(s): I36.1 - Nonrheumatic tricuspid (valve) insufficiency Assessment/Plan 1. Acute on chronic diastolic failure, resolving 2. COPD 3. Non-obstructive CAD, angina pectoris 4. Mitral valve regurgitation 5. Aortic valve stenosis 6. Tricuspid valve regurgitation 7. Pulmonary HTN 8. Persistent atrial fibrillation [id number] 9. HTN/HCVD 10. Type 2 diabetes mellitus 11. Hypercholesterolemia 12. History of epistaxis PLAN: 1. PO diuresis with monitoring renal function and electrolytes 2. Continue Labetalol 200 bid, Amlodipine 5 qd, Lipitor 20 qhs, Prinivil 40 qd and Eliquis 5 bid 3. Review office records 4. Steroids, bronchodilators and O2 Further plans are to follow Armen Stewart MD
--- NOTE | 2017-06-17 10:25 | PN ---
Physical Exam: SUBJECTIVE: Patient seen and examined, c/o of right hip pain and constipation. OBJECTIVE: PT ordered BGMs and Novolog started Pulmonary consult Vital Signs Period Temp Pulse Resp BP Sys/Mo Pulse Ox Last 24 Hr 97.9 F-98.1 F 70-89 18-20 140-186/67-90 97-98 GENERAL: The patient is awake, alert, and fully oriented, anxious HEAD: Normal with no signs of trauma. EYES: PERRL, extraocular movements intact, sclera anicteric, conjunctiva clear. No ptosis. ENT: Ears normal, nares patent, oropharynx clear without exudates, moist mucous membranes. NECK: Trachea midline, full range of motion, supple. LUNGS: diminished bilaterally, on 2 liters of oxygen HEART:irregular rate and rhythm ABDOMEN: Soft, nontender, nondistended, normoactive bowel sounds, no guarding, no EXTREMITIES: RLL externally outwardly rotated, + pain, + pulse s/p hip replacement NEUROLOGICAL: Normal speech, gait not observed. PSYCH: Normal mood, normal affect. SKIN: Warm, dry, normal turgor, no rashes or lesions noted Laboratory Results - last 24 hr 06/16/17 06/17/17 06/17/17 11:34 06:15 06:40 WBC 7.3 D RBC 4.00 Hgb 11.0 Hct 34.2 MCV 85.6 MCH 27.4 MCHC 32.0 RDW 16.1 H Plt Count 240 MPV 8.9 Sodium 140 Potassium 4.4 Chloride 102 Carbon Dioxide 29 Anion Gap 9 BUN 40 H Creatinine 1.4 H POC Glucometer [id number] Random Glucose 274 H Calcium 8.2 L Active Medications Generic Name Dose Route Start Last Admin Trade Name Freq PRN Reason Stop Dose Admin Albuterol/Ipratropium 1 amp 06/16/17 22:23 Duoneb - NEB Q6H PRN SHORTNESS OF BREATH Amlodipine Besylate 5 mg 06/16/17 10:00 06/16/17 11:39 Norvasc - PO 5 mg DAILY PK Administration Apixaban 5 mg 06/16/17 10:00 06/16/17 22:07 Eliquis - PO 5 mg BID PK Administration Atorvastatin Calcium 20 mg 06/16/17 22:00 06/16/17 22:07 Lipitor - PO 20 mg HS PK Administration Docusate Sodium 100 mg 06/16/17 05:46 Colace - PO BID PRN CONSTIPATION Ferrous Sulfate 325 mg 06/17/17 10:00 Feosol - PO BID PK Furosemide 40 mg 06/17/17 10:00 Lasix - PO DAILY PK Labetalol HCl 200 mg 06/16/17 22:00 06/16/17 22:07 Normodyne - PO 200 mg BID PK Administration Lisinopril 40 mg 06/16/17 10:00 06/16/17 11:39 Prinivil PO 40 mg DAILY PK Administration Methylprednisolone Sodium Succinate 40 mg 06/16/17 13:15 06/16/17 22:51 Solu-Medrol - IVPUSH 40 mg BID PK Administration Oxycodone HCl 5 mg 06/16/17 05:46 06/16/17 17:00 Roxicodone - PO 5 mg Q6H PRN Administration PAIN LEVEL 6-10 Pantoprazole Sodium 40 mg 06/17/17 10:00 Protonix - PO DAILY PK Sertraline HCl 50 mg 06/17/17 10:00 Zoloft - PO DAILY [facility] ASSESSMENT/PLAN: Patient is a 81 year old female with a significant past medical history hypertension, hyperlipidemia, CHF, COPD, asthma, diabetes and anemia. She presents to the ED on 06/15/2017 with shortness of breath and right hip pain with difficulty ambulating. Imaging: R-hip/pelvis xray fracture at distal shaft of the femur stabilized by a plate, screws, wires, correlation recommended CT Pelvis possible pseudoathrosis Cardiology Acute on chronic diastolic heart failure On Lasix 40mg daily Daily weights, monitor intake and output Chest xray reviewed on Telemonitoring Cardiology following Hypertension Monitor BP On Norvasc, Lisinopril, Labetolol Hyperlipidemia On Lipitor A.fib On Eliquis 5mg BID Pulmonary COPD exacerbation, acute on chronic Asthma exacerbation, acute on chronic On Soludedrol taper Albuterol prn Supplemental oxygen @ 2 liters Pulmonary consult Orthopedics Recent hip replacement on January 2017 but c/o of difficulty ambulating with increased right hip pain R hip Pelvis xray as above CT pelvis with possible peusoarthrosis Oxycodone for pain with bowel regimen Ortho, PT eval Endocrine Diabetes Monitor in the setting of steroids F.E.N. Fluids: PO adequate Electrolytes: monitor Nutrition: low sodicum Prophylaxis: DVT: On Eliquis PT evaluation Disposition: full code
[2017-06-17] MEDS: LABETALOL HCL 200 MG TABLET (FP) PO SCH ×2 (10:32→21:56)
[2017-06-17] MEDS: amLODIPine BESYLATE 5 MG TABLET (FP) PO SCH (10:32)
[2017-06-17] MEDS: APIXABAN 5 MG TABLET PO SCH ×2 (10:32→21:56)
[2017-06-17] MEDS: PANTOPRAZOLE 40 MG TABLET (FP) PO SCH (10:32)
[2017-06-17] MEDS: FUROSEMIDE 40 MG TABLET (FP) PO SCH (10:32)
[2017-06-17] MEDS: FERROUS SO4 325 MG TABLET (FP) PO SCH ×2 (10:32→21:55)
[2017-06-17] MEDS: LISINOPRIL 20 MG TABLET (FP) PO SCH (10:32)
[2017-06-17] MEDS: methylPREDNISolone NA SUCC 40 MG/1 ML VIAL IVPUSH SCH ×2 (10:33→21:56)
[2017-06-17] MEDS: SERTRALINE HCL 50 MG TABLET (FP) PO SCH (10:33)
[2017-06-17] MEDS ORDERED: BISACODYL 5 MG TABLET.DR (FP) PO ONE (10:48)
[2017-06-17] MEDS: POLYETHYLENE GLYCOL 3350 119 GM BTL PO SCH (11:15)
[2017-06-17] MEDS: oxyCODONE HCL 5 MG TABLET PO PRN (12:16)
[2017-06-17] MEDS: INSULIN SLIDING SCALE (NOVOLOG) 1 VIAL SQ SCH ×3 (12:27→22:44)
--- NOTE | 2017-06-17 12:51 | PN ---
Progress Note (short form) - Note Progress Note: PULMONARY CONSULTATION DICTATED 06/17/17 IMP DYSPNEA CHF ASTHMA/COPD PULMONARY HTN AFIB R HIP PAIN DM PLAN O2 INHALED BRONCHODILATORS SHORT COURSE OF STEROIDS LASIX ANALGESICS ORTHOPEDIC EVALUATION DR PACHECO Problem List - Problems (1) Acute on chronic diastolic (congestive) heart failure Code(s): I50.33 - ACUTE ON CHRONIC DIASTOLIC (CONGESTIVE) HEART FAILURE (2) Anemia Code(s): D64.9 - ANEMIA, UNSPECIFIED (3) Right hip pain Code(s): M25.551 - PAIN IN RIGHT HIP (4) Shortness of breath Code(s): R06.02 - SHORTNESS OF BREATH (5) HTN (hypertension) Code(s): I10 - ESSENTIAL (PRIMARY) HYPERTENSION Qualifiers: Hypertension type: essential hypertension Qualified Code(s): I10 - Essential (primary) hypertension (6) Aortic valve stenosis Code(s): I35.0 - NONRHEUMATIC AORTIC (VALVE) STENOSIS Qualifiers: Cardiac valve disease etiology: nonrheumatic Qualified Code(s): I35.0 - Nonrheumatic aortic (valve) stenosis (7) Back pain Code(s): M54.9 - DORSALGIA, UNSPECIFIED (8) COPD (chronic obstructive pulmonary disease) Code(s): J44.9 - CHRONIC OBSTRUCTIVE PULMONARY DISEASE, UNSPECIFIED Qualifiers: COPD type: unspecified COPD Qualified Code(s): J44.9 - Chronic obstructive pulmonary disease, unspecified (9) Diabetes mellitus Code(s): E11.9 - TYPE 2 DIABETES MELLITUS WITHOUT COMPLICATIONS Qualifiers: Diabetes mellitus type: type 2 (10) Diastolic dysfunction Code(s): I51.9 - HEART DISEASE, UNSPECIFIED (11) Hypercholesterolemia Code(s): E78.00 - PURE HYPERCHOLESTEROLEMIA, UNSPECIFIED (12) Mitral valve regurgitation Code(s): I34.0 - NONRHEUMATIC MITRAL (VALVE) INSUFFICIENCY Qualifiers: Cardiac valve disease etiology: nonrheumatic Qualified Code(s): I34.0 - Nonrheumatic mitral (valve) insufficiency (13) Dyspnea Code(s): R06.00 - DYSPNEA, UNSPECIFIED
--- NOTE | 2017-06-17 15:51 | CONS ---
DATE OF CONSULTATION: 06/17/2017 PULMONARY CONSULTATION REFERRING PHYSICIAN: Kristy Leon NP HISTORY OF PRESENT ILLNESS: The patient is an 81-year-old white female know to me from previous hospitalizations as well as office followup in the past with nonobstructive coronary artery disease, angina pectoris, left ventricular diastolic dysfunction, congestive heart failure, mitral valve regurgitation, irritable bowel disease, asthma, atrial fibrillation on Xarelto, pulmonary hypertension, type 2 diabetes mellitus, anemia, history of hip replacement in January, admitted to [facility] on June 15 with complaint of increased shortness of breath and orthopnea. Patient offered complaint of increasing right-sided hip pain on the day of admission. Patient states that the hip pain was sharp and worsened with movement. She went to rehab 2 months after her hip replacement in January and is having difficulty ambulating since. She states that 2 days prior to admission, she started developing increasing shortness of breath and dyspnea on exertion. She denied any chest pain, nausea, vomiting, diaphoresis, and no hemoptysis. She has a history of asthma, and she uses nebulizer and states she ran out of medications. She has history of smoking many, many years ago. There is no history of occupational exposure to the chemicals or fumes. PAST MEDICAL HISTORY: Again includes asthma, atrial fibrillation, aortic stenosis, ASHD, congestive heart failure, hypertension, mitral valve disease, pulmonary hypertension, diabetes, osteoarthritis, and history of right hip replacement. MEDICATIONS: Medications prior to admission include acetaminophen, ferrous sulfate, Lasix, lisinopril, Prandin, Normodyne, Eliquis, ProAir, Xarelto, Simvastatin, sertraline, and potassium. CURRENT MEDICATIONS: Include Solu-Medrol 40 IV b.i.d., prednisone, Eliquis, Zoloft, DuoNeb, Normodyne, Colace, MiraLAX, Norvasc, Lipitor, Theosol, Lasix, oxycodone, and Protonix. REVIEW OF SYSTEMS: Positive dyspnea. Positive orthopnea. No chest pain. No palpitations. No abdominal pain. No cough. No wheeze. Positive right left lower extremity pain. PHYSICAL EXAMINATION: General: An elderly, white female, well developed, awake, alert, alert, mildly dyspneic but no acute distress. Vital Signs: She is currently afebrile. Blood pressure is 124/42, respiratory rate is 20, O2 saturation 97% on 2 L. HEENT: Normocephalic, atraumatic. Neck: Supple. Heart: Irregularly irregular. Normal S1, S2. Chest: A few crackles bilaterally. Abdomen: Soft. Bowel sounds are positive. Extremities: No cyanosis or edema. There is external rotation of right lower extremity. DIAGNOSTIC STUDIES: Chest CTA reveals minimal pleural thickening in left posterior chest, possible airway disease, no acute masses or infiltrates. Pelvic CT with underlying fracture of right femoral diaphysis and left of the tip of the femoral component of revision of right hip arthroplasty. Duplex DVT. IMPRESSION: Dyspnea, multiple factors. 1. Mild congestive heart failure, decompensated. 2. Asthma/chronic obstructive pulmonary disease with mild exacerbation. 3. Pulmonary hypertension. 4. Right hip pain. 5. Atrial fibrillation. 6. Diabetes. 7. Aortic stenosis. PLAN: IV fluids. Inhaled bronchodilators. Steroids x24 hours. Lasix. Follow up chest x-ray. Supplemental O2. Analgesics. Orthopedic evaluation. EMILIE PACHECO M.D. [id number]
--- NOTE | 2017-06-17 20:57 | CON.ORTH ---
Consult - History of Present Illness Chief Complaint: RLE pain History of Present Illness: 81y F with multiple active medical issues c/o RLE pain -had R OFE over 10y ago at [facility] -suffered injury with periprosthetic fracture Jan 2016 and underwent ORIF and revision at [facility] -notes slowly worsening pain since then -also slowly decreasing ambulatory ability -pain felt over femur -denies radiating pain, numbness or tingling -states leg will not bear weight -also with worsening shortness of breath - History Source History Provided By: Patient, Family Member (reji over phone) Limitations to Obtaining History: No Limitations - Past Medical History Cardio/Vascular: Yes: AFIB, Aortic Stenosis, CAD, CHF, HTN, Hyperlipdemia, Mitral Insufficiency, Murmur, Pulmonary Hypertension Pulmonary: Yes: COPD Musculoskeletal: Yes: Osteoarthritis (had hip and knee replacement, still with some healing problems ), Other Endocrine: Yes: Diabetes Mellitus - Past Surgical History Past Surgical History: Yes: Joint Replacement - Alcohol/Substance Use Hx Alcohol Use: No History of Substance Use: reports: None - Smoking History Smoking history: Former smoker Have you smoked in the past 12 months: No Aproximately how many cigarettes per day: 0 If you are a former smoker, when did you quit?: "when I was very [place]" Home Medications - Allergies Allergies/Adverse Reactions: Allergies Allergy/AdvReac Type Severity Reaction Status Date / Time ciprofloxacin [From Cipro] Allergy Verified 06/15/17 11:43 ciprofloxacin HCl Allergy Verified 06/15/17 11:43 [From Cipro] - Home Medications Home Medications: Ambulatory Orders Acetaminophen 500 mg PO TID PRN 12/29/16 Ferrous Sulfate 325 mg PO BID 12/29/16 Furosemide [Lasix] 80 mg PO DAILY 12/29/16 Lisinopril [Zestril] 40 mg PO DAILY 12/29/16 Omeprazole 40 mg PO DAILY 12/29/16 Potassium Chloride 20 meq PO DAILY 12/29/16 Sertraline HCl [Zoloft -] 50 mg PO DAILY 12/29/16 Simvastatin 40 mg PO DAILY 12/29/16 Rivaroxaban [Xarelto] 15 mg PO DAILY #30 tab 12/30/16 Albuterol Sulfate [Proair Hfa] 2 inh IH Q4HWA 06/15/17 Apixaban [Eliquis] 2.5 mg PO BID 06/15/17 Cholecalciferol (Vitamin D3) [Vitamin D3] 30,000 unit PO WEEKLY 06/15/17 Furosemide [Lasix] 40 mg PO HS 06/15/17 Labetalol HCl [Normodyne -] 200 mg PO BID 06/15/17 Repaglinide [Prandin -] 1 mg PO TID 06/15/17 Family Disease History - Family Disease History Family Disease History: Other: Daughter (alive and well) Review of Systems - Review of Systems Constitutional: denies: Chills, Diaphoresis, Fever Physical Exam for Ortho Vital Signs: Vital Signs Temperature 98.4 F 06/17/17 20:00 Pulse Rate 67 06/17/17 20:00 Respiratory Rate 18 06/17/17 20:00 Blood Pressure 144/58 06/17/17 20:00 O2 Sat by Pulse Oximetry (%) 97 06/16/17 17:00 Constitutional: Yes: Well Nourished, No Distress, Calm Respiratory: Yes: Regular Gastrointestinal: Yes: Soft. No: Distention Extremities: Yes: Other (RLE shows healed old surgical wounds. Not swollen. Mild tenderness distal femur. Knee nontender. No pain with log roll. Mild discomfort with knee ROM. Sensation intact to LT. 2+ DP pulse. EHL FHL TA G S intact.) Labs: CBC, BMP 06/17/17 06:40 06/17/17 06:15 INR, PTT INR 1.37 (0.82-1.09) H 06/15/17 13:40 Imaging - Results Cat Scan: Report Reviewed, Image Reviewed (R revision OFE and ORIF. External rotation deformity at fracture site. 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, there are limited options available to her for treatment -revision surgery is complex, would involve significant blood loss -if she were to elect for revision, I believe she is high risk for periop mortality given her medical comorbidities -I believe the best option is for PT -She should work on weight loss -It may be the case that she is too debilitated at this time to regain ambulatory function but it is worth a trial of PT to see if it is possible to regain some strength -may wbat with the use of a walker -advised that on discharge it is worth seeing her operating surgeon to have him evaluate how he feels she is healing from the procedure
[2017-06-17] MEDS ORDERED: PT OWN MED DRAWER 7, Y5N ONE (21:46)
[2017-06-17] MEDS: ATORVASTATIN CA 20 MG TABLET (FP) PO SCH (21:56)
[2017-06-18] MEDS ORDERED: INSULIN (NOVOLOG) ASPART 100 UNITS/ML 10ML VIAL ONE (06:17)
[2017-06-18] MEDS: INSULIN SLIDING SCALE (NOVOLOG) 1 VIAL SQ SCH ×4 (06:20→21:25)
[2017-06-18 07:31] LABS: BASO % 0.1 % (0-2.0); HEMATOCRIT 33.1 % (32.4-45.2); HEMOGLOBIN 10.6 GM/dL (10.7-15.3); LYMPH % 3.5 % (8-40); MCH 27.2 pg (25.7-33.7); MEAN CELL VOLUME 85.1 fl (80-96); MEAN PLT VOLUME 8.9 fl (7.5-11.1); MONO % 1.4 % (3.8-10.2); PLATELET COUNT 215 K/MM3 (134-434); RBC 3.89 M/mm3 (3.60-5.2); WHITE BLOOD COUNT 9.4 K/mm3 (4.0-10.0)
[2017-06-18 07:41] LABS: ALBUMIN 3.2 g/dl (3.4-5.0); ANION GAP 9 (8-16); BLOOD UREA NITROGEN 54 mg/dL (7-18); CALCIUM 8.7 mg/dL (8.5-10.1); CHLORIDE 104 mmol/L (98-107); CO2 30 mmol/L (21-32); CREATININE 1.3 mg/dL (0.55-1.02); GLUCOSE,RANDOM 279 mg/dL (74-106); MAGNESIUM 2.3 mg/dL (1.8-2.4); POTASSIUM 4.8 mmol/L (3.5-5.1); SGOT/AST 13 U/L (15-37); SGPT/ALT 19 U/L (12-78); SODIUM 143 mmol/L (136-145); TOT PROT 6.1 g/dl (6.4-8.2)
[2017-06-18 07:42] LABS: ALK PHOS 56 U/L (45-117); BILIRUBIN,TOTAL 0.3 mg/dL (0.2-1.0)
--- NOTE | 2017-06-18 07:56 | PN ---
Progress Note (short form) - Note Progress Note: Chief Complaint: Events noted, notes reviewed, reports vague chest discomfort with inspiration, reports persistent dyspnea History of Present Illness: Seen and examined on telemetry. Events noted, notes reviewed, reports vague chest discomfort with inspiration, reports persistent dyspnea Current Medications: Current Medications Albuterol/Ipratropium (Duoneb -) 1 amp NEB Q6H PRN PRN Reason: SHORTNESS OF BREATH Amlodipine Besylate (Norvasc -) 5 mg PO DAILY [facility] Last Admin: 06/18/17 09:04 Dose: 5 mg Apixaban (Eliquis -) 5 mg PO BID [facility] Last Admin: 06/18/17 09:05 Dose: 5 mg Atorvastatin Calcium (Lipitor -) 20 mg PO HS [facility] Last Admin: 06/17/17 21:56 Dose: 20 mg Docusate Sodium (Colace -) 100 mg PO BID PRN PRN Reason: CONSTIPATION Ferrous Sulfate (Feosol -) 325 mg PO BID [facility] Last Admin: 06/18/17 09:04 Dose: 325 mg Furosemide (Lasix -) 40 mg PO DAILY [facility] Last Admin: 06/18/17 09:05 Dose: 40 mg CEFTRIAXONE 1 G/50 ML PREMIX (Ceftriaxone 1 Gm-D5w Bag) 50 mls @ 100 mls/hr IVPB DAILY [facility] Last Admin: 06/18/17 09:42 Dose: 100 mls/hr Insulin Aspart (Novolog Vial Sliding Scale -) 1 vial SQ ACHS [facility] PRN Reason: Protocol Last Admin: 06/18/17 06:20 Dose: 8 units Labetalol HCl (Normodyne -) 200 mg PO BID [facility] Last Admin: 06/18/17 09:05 Dose: 200 mg Lisinopril (Prinivil) 40 mg PO DAILY [facility] Last Admin: 06/18/17 09:05 Dose: 40 mg Methylprednisolone Sodium Succinate (Solu-Medrol -) 40 mg IVPUSH BID [facility] Last Admin: 06/18/17 09:04 Dose: 40 mg Oxycodone HCl (Roxicodone -) 5 mg PO Q6H PRN PRN Reason: PAIN LEVEL 6-10 Last Admin: 06/18/17 09:06 Dose: 5 mg Pantoprazole Sodium (Protonix -) 40 mg PO DAILY [facility] Last Admin: 06/18/17 09:05 Dose: 40 mg Polyethylene Glycol (Miralax (For Daily Use) -) 17 gm PO DAILY [facility] Last Admin: 06/18/17 09:05 Dose: 17 grams Sertraline HCl (Zoloft -) 50 mg PO DAILY [facility] Last Admin: 06/18/17 09:05 Dose: 50 mg Review of Systems Cardiovascular: As noted above Respiratory: reports: Cough but no Sputum Production Gastrointestinal: denies: Nausea, Vomiting, Diarrhea, Constipation or Abdominal Discomfort Musculoskeletal: No Symptoms Reported Endocrine: No Symptoms Reported - Objective Vital Signs: Last Vital Signs Temp Pulse Resp BP Pulse Ox 98 F 63 20 161/68 98 06/18/17 02:00 06/18/17 02:00 06/18/17 09:00 06/18/17 02:00 06/18/17 09:00 Intake & Output 06/15/17 06/16/17 06/17/17 06/18/17 23:59 23:59 23:59 23:59 Intake Total 10 750 Output Total 1200 Balance -1190 750 Weight 200 lb 187 lb 187 lb 9.6 oz Constitutional: No Distress Neck: Supple Negative JVD No Bruit Respiratory: Scattered Rhonchi Bilaterally Cardiovascular: S1 S2 Irregularly Irregular Grade 2/6 [id number] Gastrointestinal: Soft Benign Normal Bowel Sounds Ext: Trace Edema Labs: CBC, BMP 06/18/17 06:30 06/18/17 06:00 Assessment/Plan ASSESSMENT: 1. Acute on chronic diastolic LV dysfunction with class I-II NYHA classification LV failure, resolving 2. Chronic obstructive airway disease exacerbation, resolving 3. CAD non-obstructive CAD history of demand ischemic injury angina pectoris 4. Persistent atrial fibrillation with [id number] score of 7 on chronic A/C with NOAC's/Eliquis 5. Mitral valve regurgitation 6. Aortic valve stenosis 7. Tricuspid valve regurgitation 8. Pulmonary HTN 9. Diabetes mellitus 10. Hypercholesterolemia 12. Acute on CKD 13. Anemia PLAN: 1. Continue Labetalol 2. Continue Amlodipine 3. Continue Prinivil 4. Continue Lipitor 5. Continue Lasix 6. Continue Eliquis with close monitoring of CBC 7. Steroids, bronchodilators and antibiotics as per the primary team Maliha Blake.
[2017-06-18] MEDS: methylPREDNISolone NA SUCC 40 MG/1 ML VIAL IVPUSH SCH ×2 (09:04→21:08)
[2017-06-18] MEDS: amLODIPine BESYLATE 5 MG TABLET (FP) PO SCH (09:04)
[2017-06-18] MEDS: FERROUS SO4 325 MG TABLET (FP) PO SCH ×2 (09:04→21:07)
[2017-06-18] MEDS: APIXABAN 5 MG TABLET PO SCH ×2 (09:05→21:07)
[2017-06-18] MEDS: LISINOPRIL 20 MG TABLET (FP) PO SCH (09:05)
[2017-06-18] MEDS: SERTRALINE HCL 50 MG TABLET (FP) PO SCH (09:05)
[2017-06-18] MEDS: LABETALOL HCL 200 MG TABLET (FP) PO SCH ×2 (09:05→21:07)
[2017-06-18] MEDS: FUROSEMIDE 40 MG TABLET (FP) PO SCH (09:05)
[2017-06-18] MEDS: POLYETHYLENE GLYCOL 3350 119 GM BTL PO SCH (09:05)
[2017-06-18] MEDS: PANTOPRAZOLE 40 MG TABLET (FP) PO SCH (09:05)
[2017-06-18] MEDS: oxyCODONE HCL 5 MG TABLET PO PRN ×2 (09:06→21:24)
[2017-06-18] MEDS ORDERED: CEFTRIAXONE 1 G/50 ML PREMIX 50 ML IVPB SCH (10:00)
--- NOTE | 2017-06-18 10:32 | PN ---
Progress Note (short form) - Note Progress Note: Please ignore prior note from earlier today which was transcribed in error, this is the correct note Chief Complaint: Events noted, notes reviewed, denies any chest pain or dyspnea History of Present Illness: Seen and examined on telemetry. Events noted, notes reviewed, denies any chest pain or dyspnea Current Medications: Current Medications Albuterol/Ipratropium (Duoneb -) 1 amp NEB Q6H PRN PRN Reason: SHORTNESS OF BREATH Amlodipine Besylate (Norvasc -) 5 mg PO DAILY [facility] Last Admin: 06/18/17 09:04 Dose: 5 mg Apixaban (Eliquis -) 5 mg PO BID [facility] Last Admin: 06/18/17 09:05 Dose: 5 mg Atorvastatin Calcium (Lipitor -) 20 mg PO HS [facility] Last Admin: 06/17/17 21:56 Dose: 20 mg Docusate Sodium (Colace -) 100 mg PO BID PRN PRN Reason: CONSTIPATION Ferrous Sulfate (Feosol -) 325 mg PO BID [facility] Last Admin: 06/18/17 09:04 Dose: 325 mg Furosemide (Lasix -) 40 mg PO DAILY [facility] Last Admin: 06/18/17 09:05 Dose: 40 mg CEFTRIAXONE 1 G/50 ML PREMIX (Ceftriaxone 1 Gm-D5w Bag) 50 mls @ 100 mls/hr IVPB DAILY [facility] Last Admin: 06/18/17 09:42 Dose: 100 mls/hr Insulin Aspart (Novolog Vial Sliding Scale -) 1 vial SQ ACHS [facility] PRN Reason: Protocol Last Admin: 06/18/17 06:20 Dose: 8 units Labetalol HCl (Normodyne -) 200 mg PO BID [facility] Last Admin: 06/18/17 09:05 Dose: 200 mg Lisinopril (Prinivil) 40 mg PO DAILY [facility] Last Admin: 06/18/17 09:05 Dose: 40 mg Methylprednisolone Sodium Succinate (Solu-Medrol -) 40 mg IVPUSH BID [facility] Last Admin: 06/18/17 09:04 Dose: 40 mg Oxycodone HCl (Roxicodone -) 5 mg PO Q6H PRN PRN Reason: PAIN LEVEL 6-10 Last Admin: 06/18/17 09:06 Dose: 5 mg Pantoprazole Sodium (Protonix -) 40 mg PO DAILY [facility] Last Admin: 06/18/17 09:05 Dose: 40 mg Polyethylene Glycol (Miralax (For Daily Use) -) 17 gm PO DAILY [facility] Last Admin: 06/18/17 09:05 Dose: 17 grams Sertraline HCl (Zoloft -) 50 mg PO DAILY [facility] Last Admin: 06/18/17 09:05 Dose: 50 mg Review of Systems Cardiovascular: As noted above Respiratory: denies: Cough or Sputum Production Gastrointestinal: denies: Nausea, Vomiting, Diarrhea, Constipation or Abdominal Discomfort Musculoskeletal: No Symptoms Reported Endocrine: No Symptoms Reported - Objective Vital Signs: Last Vital Signs Temp Pulse Resp BP Pulse Ox 98 F 63 20 161/68 98 06/18/17 02:00 06/18/17 02:00 06/18/17 09:00 06/18/17 02:00 06/18/17 09:00 Intake & Output 06/15/17 06/16/17 06/17/17 06/18/17 23:59 23:59 23:59 23:59 Intake Total 10 750 Output Total 1200 Balance -1190 750 Weight 200 lb 187 lb 187 lb 9.6 oz Constitutional: No Distress Neck: Supple Negative JVD No Bruit Respiratory: Diminished Breath Sounds at the Bases Cardiovascular: S1 S2 Irregularly Irregular Grade 2/6 JAZMYN Gastrointestinal: Soft Benign Normal Bowel Sounds Ext: Trace Edema Labs: CBC, BMP 06/18/17 06:30 06/18/17 06:00 Assessment/Plan ASSESSMENT: 1. Acute on chronic diastolic LV dysfunction with class I-II NYHA classification LV failure, resolving 2. Chronic obstructive airway disease exacerbation, resolving 3. CAD non-obstructive CAD history of demand ischemic injury angina pectoris 4. Persistent atrial fibrillation with [id number] score of 7 on chronic A/C with NOAC's/Eliquis 5. Mitral valve regurgitation 6. Aortic valve stenosis 7. Tricuspid valve regurgitation 8. Pulmonary HTN 9. Diabetes mellitus 10. Hypercholesterolemia 12. Acute on CKD 13. Anemia PLAN: 1. Continue Labetalol and titrate dosage 2. Continue Amlodipine 3. Continue Prinivil 4. Continue Lipitor 5. Continue Lasix 6. Continue Eliquis with close monitoring of CBC 7. Bronchodilators, Steroids and antibiotics as per the primary team Maliha Blake.
--- NOTE | 2017-06-18 10:46 | PN ---
Physical Exam: SUBJECTIVE: Patient seen and examined at the bedside. She states she feels much better today, but remains constipated x 4 days. OBJECTIVE: Vital Signs Period Temp Pulse Resp BP Sys/Mo Pulse Ox Last 24 Hr 97.9 F-99.3 F 63-77 18-20 144-161/58-87 98-98 GENERAL: The patient is awake, alert, and fully oriented, anxious HEAD: Normal with no signs of trauma. EYES: PERRL, extraocular movements intact, sclera anicteric, conjunctiva clear. No ptosis. ENT: Ears normal, nares patent, oropharynx clear without exudates, moist mucous membranes. NECK: Trachea midline, full range of motion, supple. LUNGS: diminished bilaterally, on 2 liters of oxygen HEART:irregular rate and rhythm ABDOMEN: Soft, nontender, nondistended, normoactive bowel sounds, no guarding, no EXTREMITIES: RLL externally outwardly rotated, + pain, + pulse s/p hip replacement NEUROLOGICAL: Normal speech, gait not observed. PSYCH: Normal mood, normal affect. SKIN: Warm, dry, normal turgor, no rashes or lesions noted Laboratory Results - last 24 hr 06/17/17 06/17/17 06/17/17 11:21 16:03 21:53 WBC RBC Hgb Hct MCV MCH MCHC RDW Plt Count MPV Neutrophils % Lymphocytes % Monocytes % Eosinophils % Basophils % Sodium Potassium Chloride Carbon Dioxide Anion Gap BUN Creatinine Creat Clearance w eGFR POC Glucometer 338 258 239 Random Glucose Calcium Magnesium Total Bilirubin AST ALT Alkaline Phosphatase Total Protein Albumin 06/18/17 06/18/17 06/18/17 06:00 06:16 06:30 WBC 9.4 RBC 3.89 Hgb 10.6 L Hct 33.1 MCV 85.1 MCH 27.2 MCHC 32.0 RDW 16.0 H Plt Count 215 MPV 8.9 Neutrophils % 95.0 H Lymphocytes % 3.5 L D Monocytes % 1.4 L Eosinophils % 0.0 D Basophils % 0.1 Sodium 143 Potassium 4.8 Chloride 104 Carbon Dioxide 30 Anion Gap 9 BUN 54 H Creatinine 1.3 H Creat Clearance w eGFR 39.21 POC Glucometer 323 Random Glucose 279 H Calcium 8.7 Magnesium 2.3 Total Bilirubin 0.3 D AST 13 L ALT 19 Alkaline Phosphatase 56 Total Protein 6.1 L Albumin 3.2 L Active Medications Generic Name Dose Route Start Last Admin Trade Name Lowq PRN Reason Stop Dose Admin Albuterol/Ipratropium 1 amp 06/16/17 22:23 Duoneb - NEB Q6H PRN SHORTNESS OF BREATH Amlodipine Besylate 5 mg 06/16/17 10:00 06/18/17 09:04 Norvasc - PO 5 mg DAILY PK Administration Apixaban 5 mg 06/16/17 10:00 06/18/17 09:05 Eliquis - PO 5 mg BID PK Administration Atorvastatin Calcium 20 mg 06/16/17 22:00 06/17/17 21:56 Lipitor - PO 20 mg HS PK Administration Docusate Sodium 100 mg 06/16/17 05:46 Colace - PO BID PRN CONSTIPATION Ferrous Sulfate 325 mg 06/17/17 10:00 06/18/17 09:04 Feosol - PO 325 mg BID PK Administration Furosemide 40 mg 06/17/17 10:00 06/18/17 09:05 Lasix - PO 40 mg DAILY PK Administration CEFTRIAXONE 1 G/50 ML PREMIX 50 mls @ 100 mls/hr 06/18/17 10:00 06/18/17 09: 42 Ceftriaxone 1 Gm-D5w Bag IVPB 100 mls/hr DAILY PK Administration Insulin Aspart 1 vial 06/17/17 11:00 06/18/17 06:20 Novolog Vial Sliding Scale - SQ 8 units ACHS PK Administration Protocol Labetalol HCl 200 mg 06/16/17 22:00 06/18/17 09:05 Normodyne - PO 200 mg BID PK Administration Lisinopril 40 mg 06/16/17 10:00 06/18/17 09:05 Prinivil PO 40 mg DAILY PK Administration Methylprednisolone Sodium Succinate 40 mg 06/16/17 13:15 06/18/17 09:04 Solu-Medrol - IVPUSH 40 mg BID PK Administration Oxycodone HCl 5 mg 06/16/17 05:46 06/18/17 09:06 Roxicodone - PO 5 mg Q6H PRN Administration PAIN LEVEL 6-10 Pantoprazole Sodium 40 mg 06/17/17 10:00 06/18/17 09:05 Protonix - PO 40 mg DAILY PK Administration Polyethylene Glycol 17 gm 06/17/17 11:00 06/18/17 09:05 Miralax (For Daily Use) - PO 17 grams DAILY PK Administration Sertraline HCl 50 mg 06/17/17 10:00 06/18/17 09:05 Zoloft - PO 50 mg DAILY PK Administration ASSESSMENT/PLAN: Patient is a 81 year old female with a significant past medical history hypertension, hyperlipidemia, CHF, COPD, asthma, diabetes and anemia. She presents to the ED on 06/15/2017 with shortness of breath and right hip pain with difficulty ambulating. Her BNP on admission was noted to be 6306. She was also noted to have diffused wheezing and was started on a Solumderol. Imaging: R-hip/pelvis xray fracture at distal shaft of the femur stabilized by a plate, screws, wires, correlation recommended CT Pelvis possible pseudoathrosis Cardiology Acute on chronic diastolic heart failure On Lasix 40mg daily Daily weights, monitor intake and output Chest xray reviewed on Telemonitoring Cardiology following Hypertension Monitor BP On Norvasc, Lisinopril, Labetolol Hyperlipidemia On Lipitor A.fib On Eliquis 5mg BID Pulmonary COPD exacerbation, acute on chronic Asthma exacerbation, acute on chronic On Soludedrol taper Albuterol prn Supplemental oxygen @ 2 liters Pulmonary consult Orthopedics Recent hip replacement on January 2017 but c/o of difficulty ambulating with increased right hip pain R hip Pelvis xray as above CT pelvis with possible peusoarthrosis Oxycodone for pain with bowel regimen Ortho, PT eval Endocrine Diabetes Monitor in the setting of steroids F.E.N. Fluids: PO adequate Electrolytes: monitor Nutrition: low sodicum Prophylaxis: DVT: On Eliquis PT evaluation Disposition: full code
--- NOTE | 2017-06-18 11:02 | PN ---
Progress Note, Physician History of Present Illness: PULMONARY ALERT,LESS DYSPNEIC,C/O RLL PAIN,R HIP PAIN - Current Medication List Current Medications: Active Medications Albuterol/Ipratropium (Duoneb -) 1 amp NEB Q6H PRN PRN Reason: SHORTNESS OF BREATH Amlodipine Besylate (Norvasc -) 5 mg PO DAILY [facility] Last Admin: 06/18/17 09:04 Dose: 5 mg Apixaban (Eliquis -) 5 mg PO BID [facility] Last Admin: 06/18/17 09:05 Dose: 5 mg Atorvastatin Calcium (Lipitor -) 20 mg PO HS [facility] Last Admin: 06/17/17 21:56 Dose: 20 mg Docusate Sodium (Colace -) 100 mg PO BID PRN PRN Reason: CONSTIPATION Ferrous Sulfate (Feosol -) 325 mg PO BID [facility] Last Admin: 06/18/17 09:04 Dose: 325 mg Furosemide (Lasix -) 40 mg PO DAILY [facility] Last Admin: 06/18/17 09:05 Dose: 40 mg CEFTRIAXONE 1 G/50 ML PREMIX (Ceftriaxone 1 Gm-D5w Bag) 50 mls @ 100 mls/hr IVPB DAILY [facility] Last Admin: 06/18/17 09:42 Dose: 100 mls/hr Insulin Aspart (Novolog Vial Sliding Scale -) 1 vial SQ ACHS [facility] PRN Reason: Protocol Last Admin: 06/18/17 06:20 Dose: 8 units Labetalol HCl (Normodyne -) 200 mg PO BID [facility] Last Admin: 06/18/17 09:05 Dose: 200 mg Lisinopril (Prinivil) 40 mg PO DAILY [facility] Last Admin: 06/18/17 09:05 Dose: 40 mg Methylprednisolone Sodium Succinate (Solu-Medrol -) 40 mg IVPUSH BID [facility] Last Admin: 06/18/17 09:04 Dose: 40 mg Oxycodone HCl (Roxicodone -) 5 mg PO Q6H PRN PRN Reason: PAIN LEVEL 6-10 Last Admin: 06/18/17 09:06 Dose: 5 mg Pantoprazole Sodium (Protonix -) 40 mg PO DAILY [facility] Last Admin: 06/18/17 09:05 Dose: 40 mg Polyethylene Glycol (Miralax (For Daily Use) -) 17 gm PO DAILY [facility] Last Admin: 01/23/18 09:05 Dose: 17 grams Sertraline HCl (Zoloft -) 50 mg PO DAILY PK Last Admin: 06/18/17 09:05 Dose: 50 mg - Objective Vital Signs: Vital Signs Temperature 98 F 06/18/17 02:00 Pulse Rate 63 06/18/17 02:00 Respiratory Rate 20 06/18/17 09:00 Blood Pressure 161/68 06/18/17 02:00 O2 Sat by Pulse Oximetry (%) 98 06/18/17 09:00 Constitutional: Yes: Well Nourished, Calm Eyes: Yes: WNL HENT: Yes: WNL Neck: Yes: WNL Cardiovascular: Yes: Pulse Irregular, S1, S2 Respiratory: Yes: Diminished Gastrointestinal: Yes: Normal Bowel Sounds, Soft Extremities: Yes: WNL, External Rotation (RLL EXT) Edema: No Labs: CBC, BMP 06/18/17 06:30 06/18/17 06:00 INR, PTT INR 1.37 (0.82-1.09) H 06/15/17 13:40 Problem List - Problems (1) Acute on chronic diastolic (congestive) heart failure Code(s): I50.33 - ACUTE ON CHRONIC DIASTOLIC (CONGESTIVE) HEART FAILURE (2) Anemia Code(s): D64.9 - ANEMIA, UNSPECIFIED Qualifiers: Anemia type: unspecified type Qualified Code(s): D64.9 - Anemia, unspecified (3) Right hip pain Code(s): M25.551 - PAIN IN RIGHT HIP (4) Shortness of breath Code(s): R06.02 - SHORTNESS OF BREATH (5) HTN (hypertension) Code(s): I10 - ESSENTIAL (PRIMARY) HYPERTENSION Qualifiers: Hypertension type: essential hypertension Qualified Code(s): I10 - Essential (primary) hypertension (6) Aortic valve stenosis Code(s): I35.0 - NONRHEUMATIC AORTIC (VALVE) STENOSIS Qualifiers: Cardiac valve disease etiology: nonrheumatic Qualified Code(s): I35.0 - Nonrheumatic aortic (valve) stenosis (7) Back pain Code(s): M54.9 - DORSALGIA, UNSPECIFIED (8) COPD (chronic obstructive pulmonary disease) Code(s): J44.9 - CHRONIC OBSTRUCTIVE PULMONARY DISEASE, UNSPECIFIED Qualifiers: COPD type: unspecified COPD Qualified Code(s): J44.9 - Chronic obstructive pulmonary disease, unspecified (9) Diabetes mellitus Code(s): E11.9 - TYPE 2 DIABETES MELLITUS WITHOUT COMPLICATIONS Qualifiers: Diabetes mellitus type: type 2 Diabetes mellitus complication status: without complication Diabetes mellitus senior living insulin use: without long term acute care registered nurse use Qualified Code(s): E11.9 - Type 2 diabetes mellitus without complications (10) Diastolic dysfunction Code(s): I51.9 - HEART DISEASE, UNSPECIFIED (11) Hypercholesterolemia Code(s): E78.00 - PURE HYPERCHOLESTEROLEMIA, UNSPECIFIED (12) Mitral valve regurgitation Code(s): I34.0 - NONRHEUMATIC MITRAL (VALVE) INSUFFICIENCY Qualifiers: Cardiac valve disease etiology: nonrheumatic Qualified Code(s): I34.0 - Nonrheumatic mitral (valve) insufficiency (13) Dyspnea Code(s): R06.00 - DYSPNEA, UNSPECIFIED Assessment/Plan MP DYSPNEA CHF ASTHMA/COPD PULMONARY HTN AFIB R HIP PAIN DM PLAN O2 INHALED BRONCHODILATORS STEROID TAPER LASIX ANALGESICS DR PACHECO Problem List - Problems (1) Acute on chronic diastolic (congestive) heart failure Code(s): I50.33 - ACUTE ON CHRONIC DIASTOLIC (CONGESTIVE) HEART FAILURE (2) Anemia Code(s): D64.9 - ANEMIA, UNSPECIFIED (3) Right hip pain Code(s): M25.551 - PAIN IN RIGHT HIP (4) Shortness of breath Code(s): R06.02 - SHORTNESS OF BREATH (5) HTN (hypertension) Code(s): I10 - ESSENTIAL (PRIMARY) HYPERTENSION Qualifiers: Hypertension type: essential hypertension Qualified Code(s): I10 - Essential (primary) hypertension (6) Aortic valve stenosis Code(s): I35.0 - NONRHEUMATIC AORTIC (VALVE) STENOSIS Qualifiers: Cardiac valve disease etiology: nonrheumatic Qualified Code(s): I35.0 - Nonrheumatic aortic (valve) stenosis (7) Back pain Code(s): M54.9 - DORSALGIA, UNSPECIFIED (8) COPD (chronic obstructive pulmonary disease) Code(s): J44.9 - CHRONIC OBSTRUCTIVE PULMONARY DISEASE, UNSPECIFIED Qualifiers: COPD type: unspecified COPD Qualified Code(s): J44.9 - Chronic obstructive pulmonary disease, unspecified (9) Diabetes mellitus Code(s): E11.9 - TYPE 2 DIABETES MELLITUS WITHOUT COMPLICATIONS Qualifiers: Diabetes mellitus type: type 2 (10) Diastolic dysfunction Code(s): I51.9 - HEART DISEASE, UNSPECIFIED (11) Hypercholesterolemia Code(s): E78.00 - PURE HYPERCHOLESTEROLEMIA, UNSPECIFIED (12) Mitral valve regurgitation Code(s): I34.0 - NONRHEUMATIC MITRAL (VALVE) INSUFFICIENCY Qualifiers: Cardiac valve disease etiology: nonrheumatic Qualified Code(s): I34.0 - Nonrheumatic mitral (valve) insufficiency (13) Dyspnea Code(s): R06.00 - DYSPNEA, UNSPECIFIED
[2017-06-18] MEDS ORDERED: SENNOSIDES 8.6MG TABLET (FP) PO PRN (17:23)
[2017-06-18] MEDS: ATORVASTATIN CA 20 MG TABLET (FP) PO SCH (21:07)
[2017-06-19] MEDS: INSULIN SLIDING SCALE (NOVOLOG) 1 VIAL SQ SCH ×3 (06:57→23:53)
[2017-06-19 07:39] LABS: BASO % 0.1 % (0-2.0); HEMATOCRIT 34.1 % (32.4-45.2); HEMOGLOBIN 10.9 GM/dL (10.7-15.3); LYMPH % 4.7 % (8-40); MCH 27.4 pg (25.7-33.7); MEAN CELL VOLUME 85.6 fl (80-96); MEAN PLT VOLUME 9.1 fl (7.5-11.1); MONO % 4.3 % (3.8-10.2); NEUT % 90.9 % (42.8-82.8); PLATELET COUNT 222 K/MM3 (134-434); RBC 3.98 M/mm3 (3.60-5.2); RDW 15.8 % (11.6-15.6); WHITE BLOOD COUNT 9.8 K/mm3 (4.0-10.0)
[2017-06-19 07:50] LABS: CHLORIDE 101 mmol/L (98-107); POTASSIUM 4.6 mmol/L (3.5-5.1); SODIUM 140 mmol/L (136-145)
[2017-06-19 08:09] LABS: ALBUMIN 3.3 g/dl (3.4-5.0); ALK PHOS 58 U/L (45-117); ANION GAP 10 (8-16); BILIRUBIN,TOTAL 0.5 mg/dL (0.2-1.0); BLOOD UREA NITROGEN 61 mg/dL (7-18); CALCIUM 9.2 mg/dL (8.5-10.1); CO2 29 mmol/L (21-32); CREATININE 1.5 mg/dL (0.55-1.02); GLUCOSE,RANDOM 276 mg/dL (74-106); MAGNESIUM 2.3 mg/dL (1.8-2.4); SGOT/AST 10 U/L (15-37); SGPT/ALT 22 U/L (12-78); TOT PROT 6.3 g/dl (6.4-8.2)
--- NOTE | 2017-06-19 09:44 | DS ---
Physical Exam: SUBJECTIVE: Patient seen and examined at the bedside. She is for discharge today, she is willing to go to rehab. OBJECTIVE: Prednisone taper for COPD exac. as per patient's response, taper off within 3 days Continue oxygen @ 2 liters and wean off Incentive spirometer q1 hours Lidoderm patches ordered prior to discharge Vital Signs Period Temp Pulse Resp BP Sys/Mo Pulse Ox Last 24 Hr 97.7 F-98.8 F 62-77 18-20 140-153/60-77 98 PHYSICAL EXAM GENERAL: The patient is awake, alert, and fully oriented, anxious HEAD: Normal with no signs of trauma. EYES: PERRL, extraocular movements intact, sclera anicteric, conjunctiva clear. No ptosis. ENT: Ears normal, nares patent, oropharynx clear without exudates, moist mucous membranes. NECK: Trachea midline, full range of motion, supple. LUNGS: diminished bilaterally, on 2 liters of oxygen HEART:irregular rate and rhythm ABDOMEN: Soft, nontender, nondistended, normoactive bowel sounds, no guarding, no EXTREMITIES: RLL externally outwardly rotated, + pain, + pulse s/p hip replacement NEUROLOGICAL: Normal speech, gait not observed. PSYCH: Normal mood, normal affect. SKIN: Warm, dry, normal turgor, no rashes or lesions noted LABS Laboratory Results - last 24 hr 06/18/17 06/18/17 06/18/17 11:13 17:03 21:11 WBC RBC Hgb Hct MCV MCH MCHC RDW Plt Count MPV Neutrophils % Lymphocytes % Monocytes % Eosinophils % Basophils % Sodium Potassium Chloride Carbon Dioxide Anion Gap BUN Creatinine Creat Clearance w eGFR POC Glucometer 246 261 285 Random Glucose Calcium Magnesium Total Bilirubin AST ALT Alkaline Phosphatase Total Protein Albumin 06/19/17 06/19/17 06/19/17 05:56 06:56 06:56 WBC 9.8 RBC 3.98 Hgb 10.9 Hct 34.1 MCV 85.6 MCH 27.4 MCHC 32.0 RDW 15.8 H Plt Count 222 MPV 9.1 Neutrophils % 90.9 H Lymphocytes % 4.7 L D Monocytes % 4.3 D Eosinophils % 0.0 Basophils % 0.1 Sodium 140 Potassium 4.6 Chloride 101 Carbon Dioxide 29 Anion Gap 10 BUN 61 H Creatinine 1.5 H Creat Clearance w eGFR 33.25 POC Glucometer 286 Random Glucose 276 H Calcium 9.2 Magnesium 2.3 Total Bilirubin 0.5 D AST 10 L ALT 22 Alkaline Phosphatase 58 Total Protein 6.3 L Albumin 3.3 L HOSPITAL COURSE: Date of Admission:06/17/17 Date of Discharge: 06/19/17 ASSESSMENT/PLAN: Patient is a 81 year old female with a significant past medical history hypertension, hyperlipidemia, CHF, COPD, asthma, diabetes and anemia. She presents to the ED on 06/15/2017 with shortness of breath and right hip pain with difficulty ambulating. Her BNP on admission was noted to be 6306. She was also noted to have diffused wheezing and was started on a Solumderol. Imaging: R-hip/pelvis xray fracture at distal shaft of the femur stabilized by a plate, screws, wires, correlation recommended CT Pelvis possible pseudoathrosis CTA negative for PE Cardiology Acute on chronic diastolic heart failure On Lasix 40mg daily, monitor intake and output with daily weights Chest xray reviewed on Telemonitoring, cleared for discharge by cardiology Hypertension, much improved Monitor BP On Norvasc, Lisinopril, Labetolol, continue same at rehab Cardiology follow up as outpatient Hyperlipidemia, chronic On Lipitor, continue A.fib, chronic On Eliquis 5mg BID Rate control with Atenolol 200mg BID Pulmonary COPD exacerbation, acute on chronic Asthma exacerbation, acute on chronic On Prednisone taper, currently on prednisone 20mg BID, taper off within 3 days as per patient's response Albuterol prn Supplemental oxygen @ 2 liters Pulmonary consult/following Orthopedics Recent hip replacement on January 2017 Right hip pain s/p revision OFE/periprosthetic fracture c/o of difficulty ambulating with increased right hip pain CT scan shows no evidence for periprosthetic loosening or hardware failure As per ortho, patient's best option of physical therapy and weight loss WBAT with use of a walker Nutrition evaluation recommended at facility CT pelvis with possible peusoarthrosis Oxycodone for pain with bowel regimen As per ortho's recommendations, patient should be re-evaluated by her operating surgeon to have him evaluate procedure healing Endocrine Diabetes Monitor in the setting of steroids BGMs, Novolog SS F.E.N. Fluids: PO adequate Electrolytes: monitor Nutrition: low sodicum Prophylaxis: DVT: On Eliquis 5mg BID PT evaluation Disposition: Discharge to [facility] for physical therapy. full code Minutes to complete discharge: 60 Discharge Summary Reason For Visit: SOB Current Active Problems Acute on chronic diastolic (congestive) heart failure (Acute) Anemia (Acute) Dyspnea (Acute) Right hip pain (Acute) Right leg pain (Acute) Shortness of breath (Acute) Condition: Improved - Instructions Diet, Activity, Other Instructions: Mrs. Zafar: You were admitted to [facility] for shortness of breath. During your stay we have adjusted your medications and have included a list of your new medications on your discharge packet. Please note you were also found to have a urinary tract infection and Macrodantin has been prescribed for you to continue for 7 more days until 06/26/2017. Please have a repeat urinalysis and urine culture after completion of the antibiotics to assure that the infection has cleared. Continue the Prednisone taper at the acute rehab facility. Currently you are taking prednisone 20mg twice per day. Please taper patient off per patient's response. Please call me with any questions you may have. [facility] @ [facility] [phone] Referrals: Avinash Vásquez MD [Staff Physician] - Arvind Ravi MD [Primary Care Provider] - Gus Cline MD [Staff Physician] - Disposition: HALFWAY FACILITY - Home Medications Comprehensive Discharge Medication List: Ambulatory Orders Acetaminophen 500 mg PO TID PRN 12/29/16 Ferrous Sulfate 325 mg PO BID 12/29/16 Furosemide [Lasix] 80 mg PO DAILY 12/29/16 Lisinopril [Zestril] 40 mg PO DAILY 12/29/16 Omeprazole 40 mg PO DAILY 12/29/16 Potassium Chloride 20 meq PO DAILY 12/29/16 Sertraline HCl [Zoloft -] 50 mg PO DAILY 12/29/16 Simvastatin 40 mg PO DAILY 12/29/16 Rivaroxaban [Xarelto] 15 mg PO DAILY #30 tab 12/30/16 Albuterol Sulfate [Proair Hfa] 2 inh IH Q4HWA 06/15/17 Apixaban [Eliquis] 2.5 mg PO BID 06/15/17 Cholecalciferol (Vitamin D3) [Vitamin D3] 30,000 unit PO WEEKLY 06/15/17 Furosemide [Lasix] 40 mg PO HS 06/15/17 Labetalol HCl [Normodyne -] 200 mg PO BID 06/15/17 Repaglinide [Prandin -] 1 mg PO TID 06/15/17 This patient is new to me today: No Emergency Visit: Yes ED Registration Date: 06/17/17 Care time: The patient presented to the Emergency Department on the above date and was hospitalized for further evaluation of their emergent condition. Critical Care patient: No - Discharge Referral Referred to [facility] No
--- NOTE | 2017-06-19 10:36 | PN ---
Progress Note, Physician History of Present Illness: Dyspnea resolved, denies chest pain. - Current Medication List Current Medications: Active Medications Albuterol/Ipratropium (Duoneb -) 1 amp NEB Q6H PRN PRN Reason: SHORTNESS OF BREATH Amlodipine Besylate (Norvasc -) 5 mg PO DAILY [facility] Last Admin: 06/18/17 09:04 Dose: 5 mg Apixaban (Eliquis -) 5 mg PO BID [facility] Last Admin: 06/18/17 21:07 Dose: 5 mg Atorvastatin Calcium (Lipitor -) 20 mg PO HS [facility] Last Admin: 06/18/17 21:07 Dose: 20 mg Docusate Sodium (Colace -) 100 mg PO BID PRN PRN Reason: CONSTIPATION Ferrous Sulfate (Feosol -) 325 mg PO BID [facility] Last Admin: 06/18/17 21:07 Dose: 325 mg Furosemide (Lasix -) 40 mg PO DAILY [facility] Last Admin: 06/18/17 09:05 Dose: 40 mg Insulin Aspart (Novolog Vial Sliding Scale -) 1 vial SQ ACHS [facility] PRN Reason: Protocol Last Admin: 06/19/17 06:57 Dose: 6 units Labetalol HCl (Normodyne -) 200 mg PO BID [facility] Last Admin: 06/18/17 21:07 Dose: 200 mg Lidocaine (Lidoderm Patch -) 1 patch TP DAILY [facility] Lisinopril (Prinivil) 40 mg PO DAILY [facility] Last Admin: 06/18/17 09:05 Dose: 40 mg Miscellaneous (Lidoderm Patch Removal) 1 each MC DAILY@2200 [facility] Nitrofurantoin Macrocrystals (Macrodantin -) 50 mg PO Q6HPO [facility] Pantoprazole Sodium (Protonix -) 40 mg PO DAILY [facility] Last Admin: 06/18/17 09:05 Dose: 40 mg Polyethylene Glycol (Miralax (For Daily Use) -) 17 gm PO DAILY [facility] Last Admin: 06/18/17 09:05 Dose: 17 grams Prednisone (Deltasone -) 20 mg PO BID [facility] Senna (Senna -) 2 tab PO HS PRN PRN Reason: CONSTIPATION Sertraline HCl (Zoloft -) 50 mg PO DAILY [facility] Last Admin: 06/18/17 09:05 Dose: 50 mg - Objective Vital Signs: Vital Signs Temperature 98.7 F 06/19/17 06:00 Pulse Rate 62 06/19/17 06:00 Respiratory Rate 20 06/19/17 06:00 Blood Pressure 149/71 06/19/17 06:00 O2 Sat by Pulse Oximetry (%) 98 06/18/17 21:00 Constitutional: Yes: No Distress, Calm Neck: Yes: Supple Cardiovascular: Yes: Pulse Irregular Respiratory: Yes: Regular, Diminished, On Nasal O2 Gastrointestinal: Yes: Normal Bowel Sounds, Soft, Abdomen, Obese Edema: No Labs: CBC, BMP 06/19/17 06:56 06/19/17 06:56 INR, PTT INR 1.37 (0.82-1.09) H 06/15/17 13:40 - ....Imaging EKG: Report Reviewed (Tele: Rate-controlled afib) Problem List - Problems (1) Shortness of breath Code(s): R06.02 - SHORTNESS OF BREATH (2) HTN (hypertension) Code(s): I10 - ESSENTIAL (PRIMARY) HYPERTENSION Qualifiers: Hypertension type: essential hypertension Qualified Code(s): I10 - Essential (primary) hypertension (3) Aortic valve stenosis Code(s): I35.0 - NONRHEUMATIC AORTIC (VALVE) STENOSIS Qualifiers: Cardiac valve disease etiology: nonrheumatic Qualified Code(s): I35.0 - Nonrheumatic aortic (valve) stenosis (4) Atrial fibrillation Code(s): I48.91 - UNSPECIFIED ATRIAL FIBRILLATION Qualifiers: Atrial fibrillation type: persistent Qualified Code(s): I48.1 - Persistent atrial fibrillation (5) COPD (chronic obstructive pulmonary disease) Code(s): J44.9 - CHRONIC OBSTRUCTIVE PULMONARY DISEASE, UNSPECIFIED Qualifiers: COPD type: unspecified COPD Qualified Code(s): J44.9 - Chronic obstructive pulmonary disease, unspecified (6) Diabetes mellitus Code(s): E11.9 - TYPE 2 DIABETES MELLITUS WITHOUT COMPLICATIONS Qualifiers: Diabetes mellitus type: type 2 Diabetes mellitus complication status: without complication Diabetes mellitus fdc insulin use: without dedicated intermodal truck driver use Qualified Code(s): E11.9 - Type 2 diabetes mellitus without complications (7) Diastolic dysfunction Code(s): I51.9 - HEART DISEASE, UNSPECIFIED (8) Hypercholesterolemia Code(s): E78.00 - PURE HYPERCHOLESTEROLEMIA, UNSPECIFIED (9) Mitral valve regurgitation Code(s): I34.0 - NONRHEUMATIC MITRAL (VALVE) INSUFFICIENCY Qualifiers: Cardiac valve disease etiology: nonrheumatic Qualified Code(s): I34.0 - Nonrheumatic mitral (valve) insufficiency (10) Tricuspid valve regurgitation Code(s): I07.1 - RHEUMATIC TRICUSPID INSUFFICIENCY Qualifiers: Cardiac valve disease etiology: nonrheumatic Qualified Code(s): I36.1 - Nonrheumatic tricuspid (valve) insufficiency (11) Mzfib-cz-sspzbit kidney injury Code(s): N17.9 - ACUTE KIDNEY FAILURE, UNSPECIFIED; N18.9 - CHRONIC KIDNEY DISEASE, UNSPECIFIED Qualifiers: Acute renal failure type: unspecified Chronic kidney disease stage: stage 2 (mild) Qualified Code(s): N17.9 - Acute kidney failure, unspecified; N18.2 - Chronic kidney disease, stage 2 (mild); N18.2 - Chronic kidney disease, stage 2 (mild) Assessment/Plan 1. Acute on chronic diastolic LV dysfunction with class I-II NYHA classification LV failure, resolved 2. Chronic obstructive airway disease exacerbation, resolved 3. CAD non-obstructive CAD history of demand ischemic injury angina pectoris 4. Persistent atrial fibrillation with [id number] score of 7 on chronic A/C with NOAC's/Eliquis 5. Mitral valve regurgitation 6. Aortic valve stenosis 7. Tricuspid valve regurgitation 8. Pulmonary HTN 9. Diabetes mellitus 10. Hypercholesterolemia 12. Acute on CKD 13. Anemia 14. E. coli UTI PLAN: 1. Continue Labetalol 200 bid 2. Continue Amlodipine 5 qd 3. Continue Prinivil 40 qd 4. Continue Lipitor 20 qhs 5. Hold Lasix pending renal recovery 6. Continue Eliquis 5 bid with close monitoring of CBC 7. Bronchodilators, oral steroids with GI protection and antibiotics as per the primary team 8. PT->SNF
[2017-06-19] MEDS: PANTOPRAZOLE 40 MG TABLET (FP) PO SCH (11:19)
[2017-06-19] MEDS: FERROUS SO4 325 MG TABLET (FP) PO SCH ×2 (11:19→21:47)
[2017-06-19] MEDS: amLODIPine BESYLATE 5 MG TABLET (FP) PO SCH (11:19)
[2017-06-19] MEDS: APIXABAN 5 MG TABLET PO SCH ×2 (11:19→21:47)
[2017-06-19] MEDS: POLYETHYLENE GLYCOL 3350 119 GM BTL PO SCH (11:20)
[2017-06-19] MEDS: SERTRALINE HCL 50 MG TABLET (FP) PO SCH (11:20)
[2017-06-19] MEDS: LISINOPRIL 20 MG TABLET (FP) PO SCH (11:20)
[2017-06-19] MEDS: LABETALOL HCL 200 MG TABLET (FP) PO SCH ×2 (11:20→21:48)
[2017-06-19] MEDS: methylPREDNISolone NA SUCC 40 MG/1 ML VIAL IVPUSH SCH (11:21)
[2017-06-19] MEDS: FUROSEMIDE 40 MG TABLET (FP) PO SCH (11:21)
[2017-06-19] MEDS: LIDOCAINE 5% TOPICAL PATCH TP SCH (11:33)
[2017-06-19] MEDS: predniSONE 20 MG TABLET (UD) PO SCH ×2 (11:52→21:47)
[2017-06-19] MEDS: NITROFURANTOIN MACROCRYSTAL 50 MG CAPSULE (FP) PO SCH ×3 (12:33→23:53)
--- NOTE | 2017-06-19 14:03 | PN ---
Progress Note, Physician Chief Complaint: HIP PAIN History of Present Illness: HIP PAIN,PATIENT STATES HER BREATHING IS AT BASELINE - Current Medication List Current Medications: Active Medications Albuterol/Ipratropium (Duoneb -) 1 amp NEB Q6H PRN PRN Reason: SHORTNESS OF BREATH Amlodipine Besylate (Norvasc -) 5 mg PO DAILY [facility] Last Admin: 06/19/17 11:19 Dose: 5 mg Apixaban (Eliquis -) 5 mg PO BID [facility] Last Admin: 06/19/17 11:19 Dose: 5 mg Atorvastatin Calcium (Lipitor -) 20 mg PO HS [facility] Last Admin: 06/18/17 21:07 Dose: 20 mg Docusate Sodium (Colace -) 100 mg PO BID PRN PRN Reason: CONSTIPATION Ferrous Sulfate (Feosol -) 325 mg PO BID [facility] Last Admin: 06/19/17 11:19 Dose: 325 mg Insulin Aspart (Novolog Vial Sliding Scale -) 1 vial SQ ACHS [facility] PRN Reason: Protocol Last Admin: 06/19/17 06:57 Dose: 6 units Labetalol HCl (Normodyne -) 200 mg PO BID [facility] Last Admin: 06/19/17 11:20 Dose: 200 mg Lidocaine (Lidoderm Patch -) 1 patch TP DAILY [facility] Lisinopril (Prinivil) 40 mg PO DAILY [facility] Last Admin: 06/19/17 11:20 Dose: 40 mg Miscellaneous (Lidoderm Patch Removal) 1 each MC DAILY@2200 [facility] Nitrofurantoin Macrocrystals (Macrodantin -) 50 mg PO Q6HPO [facility] Pantoprazole Sodium (Protonix -) 40 mg PO DAILY [facility] Last Admin: 06/19/17 11:19 Dose: 40 mg Polyethylene Glycol (Miralax (For Daily Use) -) 17 gm PO DAILY [facility] Last Admin: 06/19/17 11:20 Dose: 17 grams Prednisone (Deltasone -) 20 mg PO BID [facility] Last Admin: 06/19/17 11:52 Dose: Not Given Senna (Senna -) 2 tab PO HS PRN PRN Reason: CONSTIPATION Sertraline HCl (Zoloft -) 50 mg PO DAILY [facility] Last Admin: 06/19/17 11:20 Dose: 50 mg - Objective Vital Signs: Vital Signs Temperature 98.7 F 06/19/17 06:00 Pulse Rate 62 06/19/17 06:00 Respiratory Rate 20 06/19/17 06:00 Blood Pressure 149/71 06/19/17 06:00 O2 Sat by Pulse Oximetry (%) 98 06/18/17 21:00 Constitutional: Yes: Anxious Eyes: Yes: EOM Intact HENT: Yes: Normocephalic Neck: Yes: Trachea Midline Cardiovascular: Yes: Pulse Irregular, S1, S2 Respiratory: Yes: Rhonchi (MINIMAL B/L SCATTERED RHONCHI) Gastrointestinal: Yes: Soft, Abdomen, Obese ...Rectal Exam: Yes: Deferred Edema: LLE: 1+, RLE: 1+ Neurological: Yes: Alert Labs: CBC, BMP 06/19/17 06:56 06/19/17 06:56 INR, PTT INR 1.37 (0.82-1.09) H 06/15/17 13:40 - ....Imaging Chest X-ray: Report Reviewed, Image Reviewed Cat Scan: Report Reviewed, Image Reviewed EKG: Report Reviewed, Image Reviewed Problem List - Problems (1) Acute on chronic diastolic (congestive) heart failure Code(s): I50.33 - ACUTE ON CHRONIC DIASTOLIC (CONGESTIVE) HEART FAILURE (2) [id number]-[id number] kidney injury Code(s): N17.9 - ACUTE KIDNEY FAILURE, UNSPECIFIED; N18.9 - CHRONIC KIDNEY DISEASE, UNSPECIFIED Qualifiers: Acute renal failure type: unspecified Chronic kidney disease stage: stage 2 (mild) Qualified Code(s): N17.9 - Acute kidney failure, unspecified; N18.2 - Chronic kidney disease, stage 2 (mild); N18.2 - Chronic kidney disease, stage 2 (mild) (3) Anemia Code(s): D64.9 - ANEMIA, UNSPECIFIED Qualifiers: Anemia type: unspecified type Qualified Code(s): D64.9 - Anemia, unspecified (4) Dyspnea Code(s): R06.00 - DYSPNEA, UNSPECIFIED (5) Right hip pain Code(s): M25.551 - PAIN IN RIGHT HIP (6) Right leg pain Code(s): M79.604 - PAIN IN RIGHT LEG Assessment/Plan CHRONIC DYSPNEA CHF ASTHMA/COPD PULMONARY HTN AFIB R HIP PAIN DM PLAN O2 INHALED BRONCHODILATORS STEROID TAPER LASIX ANALGESICS WILL FOLLOW WITH ORTHO UPON DISCHARGE SUGGEST DISCHARGE PLANNING TO SNF REHAB R ARMEN MD
[2017-06-19] MEDS ORDERED: oxyCODONE HCL 5 MG TABLET ONE (18:09)
[2017-06-19] MEDS: ATORVASTATIN CA 20 MG TABLET (FP) PO SCH (21:48)
[2017-06-19] MEDS ORDERED: oxyCODONE HCL 5 MG TABLET PO PRN (21:57)
[2017-06-19] MEDS ORDERED: LIDOCAINE PATCH REMOVAL MC SCH (22:00)
[2017-06-20] MEDS: INSULIN SLIDING SCALE (NOVOLOG) 1 VIAL SQ SCH ×2 (06:05→12:13)
[2017-06-20] MEDS: NITROFURANTOIN MACROCRYSTAL 50 MG CAPSULE (FP) PO SCH ×2 (06:05→12:56)
[2017-06-20 08:11] LABS: ALBUMIN 3.2 g/dl (3.4-5.0); ANION GAP 7 (8-16); BLOOD UREA NITROGEN 54 mg/dL (7-18); CHLORIDE 101 mmol/L (98-107); CO2 32 mmol/L (21-32); GLUCOSE,RANDOM 250 mg/dL (74-106); SODIUM 140 mmol/L (136-145)
[2017-06-20 08:15] LABS: ALK PHOS 53 U/L (45-117); BILIRUBIN,TOTAL 0.4 mg/dL (0.2-1.0); CREATININE 1.1 mg/dL (0.55-1.02); SGOT/AST 8 U/L (15-37); SGPT/ALT 22 U/L (12-78); TOT PROT 6.1 g/dl (6.4-8.2)
[2017-06-20] MEDS: SERTRALINE HCL 50 MG TABLET (FP) PO SCH (09:54)
[2017-06-20] MEDS: PANTOPRAZOLE 40 MG TABLET (FP) PO SCH (09:54)
[2017-06-20] MEDS: APIXABAN 5 MG TABLET PO SCH (09:54)
[2017-06-20] MEDS: amLODIPine BESYLATE 5 MG TABLET (FP) PO SCH (09:54)
[2017-06-20] MEDS: FERROUS SO4 325 MG TABLET (FP) PO SCH (09:54)
[2017-06-20] MEDS: predniSONE 20 MG TABLET (UD) PO SCH (09:55)
[2017-06-20] MEDS: LIDOCAINE 5% TOPICAL PATCH TP SCH (09:55)
[2017-06-20] MEDS: LABETALOL HCL 200 MG TABLET (FP) PO SCH (09:55)
[2017-06-20] MEDS: LISINOPRIL 20 MG TABLET (FP) PO SCH (09:55)
[2017-06-20] MEDS: POLYETHYLENE GLYCOL 3350 119 GM BTL PO SCH (09:55)
[2017-06-20] MEDS ORDERED: FUROSEMIDE 40 MG TABLET (FP) PO ONE (10:30)
--- NOTE | 2017-06-20 11:15 | PN ---
Progress Note, Physician History of Present Illness: Dyspnea resolved, denies chest pain. SBP 160's with repeat measurement. - Current Medication List Current Medications: Active Medications Albuterol/Ipratropium (Duoneb -) 1 amp NEB Q6H PRN PRN Reason: SHORTNESS OF BREATH Amlodipine Besylate (Norvasc -) 5 mg PO DAILY [facility] Last Admin: 06/20/17 09:54 Dose: 5 mg Apixaban (Eliquis -) 5 mg PO BID [facility] Last Admin: 06/20/17 09:54 Dose: 5 mg Atorvastatin Calcium (Lipitor -) 20 mg PO HS [facility] Last Admin: 06/19/17 21:48 Dose: 20 mg Docusate Sodium (Colace -) 100 mg PO BID PRN PRN Reason: CONSTIPATION Ferrous Sulfate (Feosol -) 325 mg PO BID [facility] Last Admin: 06/20/17 09:54 Dose: 325 mg Insulin Aspart (Novolog Vial Sliding Scale -) 1 vial SQ ACHS [facility] PRN Reason: Protocol Last Admin: 06/20/17 06:05 Dose: 4 units Labetalol HCl (Normodyne -) 200 mg PO BID [facility] Last Admin: 06/20/17 09:55 Dose: 200 mg Lidocaine (Lidoderm Patch -) 1 patch TP DAILY [facility] Last Admin: 06/20/17 09:55 Dose: 1 patch Lisinopril (Prinivil) 40 mg PO DAILY [facility] Last Admin: 06/20/17 09:55 Dose: 40 mg Miscellaneous (Lidoderm Patch Removal) 1 each MC DAILY@2200 [facility] Last Admin: 06/19/17 21:51 Dose: Not Given Nitrofurantoin Macrocrystals (Macrodantin -) 50 mg PO Q6HPO [facility] Last Admin: 06/20/17 06:05 Dose: 50 mg Oxycodone HCl (Roxicodone -) 5 mg PO Q6H PRN PRN Reason: PAIN LEVEL 6-10 Last Admin: 06/20/17 10:00 Dose: 5 mg Pantoprazole Sodium (Protonix -) 40 mg PO DAILY [facility] Last Admin: 06/20/17 09:54 Dose: 40 mg Polyethylene Glycol (Miralax (For Daily Use) -) 17 gm PO DAILY [facility] Last Admin: 06/20/17 09:55 Dose: 17 grams Prednisone (Deltasone -) 20 mg PO BID [facility] Last Admin: 06/20/17 09:55 Dose: 20 mg Senna (Senna -) 2 tab PO HS PRN PRN Reason: CONSTIPATION Sertraline HCl (Zoloft -) 50 mg PO DAILY [facility] Last Admin: 06/20/17 09:54 Dose: 50 mg - Objective Vital Signs: Vital Signs Temperature 97.8 F 06/20/17 05:25 Pulse Rate 65 06/20/17 05:25 Respiratory Rate 20 06/20/17 05:25 Blood Pressure 177/74 06/20/17 05:25 O2 Sat by Pulse Oximetry (%) 96 06/19/17 20:22 Constitutional: Yes: No Distress, Calm Neck: Yes: Supple Cardiovascular: Yes: Pulse Irregular Respiratory: Yes: Regular, Diminished Gastrointestinal: Yes: Normal Bowel Sounds, Soft, Abdomen, Obese Edema: Yes Edema: LLE: Trace, RLE: Trace Labs: CBC, BMP 06/19/17 06:56 06/20/17 05:57 INR, PTT INR 1.37 (0.82-1.09) H 06/15/17 13:40 - ....Imaging EKG: Report Reviewed (Tele: Rate-controlled afib) Problem List - Problems (1) Shortness of breath Code(s): R06.02 - SHORTNESS OF BREATH (2) HTN (hypertension) Code(s): I10 - ESSENTIAL (PRIMARY) HYPERTENSION Qualifiers: Hypertension type: essential hypertension Qualified Code(s): I10 - Essential (primary) hypertension (3) Aortic valve stenosis Code(s): I35.0 - NONRHEUMATIC AORTIC (VALVE) STENOSIS Qualifiers: Cardiac valve disease etiology: nonrheumatic Qualified Code(s): I35.0 - Nonrheumatic aortic (valve) stenosis (4) Atrial fibrillation Code(s): I48.91 - UNSPECIFIED ATRIAL FIBRILLATION Qualifiers: Atrial fibrillation type: persistent Qualified Code(s): I48.1 - Persistent atrial fibrillation (5) COPD (chronic obstructive pulmonary disease) Code(s): J44.9 - CHRONIC OBSTRUCTIVE PULMONARY DISEASE, UNSPECIFIED Qualifiers: COPD type: unspecified COPD Qualified Code(s): J44.9 - Chronic obstructive pulmonary disease, unspecified (6) Diabetes mellitus Code(s): E11.9 - TYPE 2 DIABETES MELLITUS WITHOUT COMPLICATIONS Qualifiers: Diabetes mellitus type: type 2 Diabetes mellitus complication status: without complication Diabetes mellitus manager terminal insulin use: without manager terminal use Qualified Code(s): E11.9 - Type 2 diabetes mellitus without complications (7) Diastolic dysfunction Code(s): I51.9 - HEART DISEASE, UNSPECIFIED (8) Hypercholesterolemia Code(s): E78.00 - PURE HYPERCHOLESTEROLEMIA, UNSPECIFIED (9) Mitral valve regurgitation Code(s): I34.0 - NONRHEUMATIC MITRAL (VALVE) INSUFFICIENCY Qualifiers: Cardiac valve disease etiology: nonrheumatic Qualified Code(s): I34.0 - Nonrheumatic mitral (valve) insufficiency (10) Tricuspid valve regurgitation Code(s): I07.1 - RHEUMATIC TRICUSPID INSUFFICIENCY Qualifiers: Cardiac valve disease etiology: nonrheumatic Qualified Code(s): I36.1 - Nonrheumatic tricuspid (valve) insufficiency (11) Cjfrw-rb-nkkceiz kidney injury Code(s): N17.9 - ACUTE KIDNEY FAILURE, UNSPECIFIED; N18.9 - CHRONIC KIDNEY DISEASE, UNSPECIFIED Qualifiers: Acute renal failure type: unspecified Chronic kidney disease stage: stage 2 (mild) Qualified Code(s): N17.9 - Acute kidney failure, unspecified; N18.2 - Chronic kidney disease, stage 2 (mild); N18.2 - Chronic kidney disease, stage 2 (mild) Assessment/Plan 1. Acute on chronic diastolic LV dysfunction with class I-II NYHA classification LV failure, resolved 2. Chronic obstructive airway disease exacerbation, resolved 3. CAD non-obstructive CAD history of demand ischemic injury angina pectoris 4. Persistent atrial fibrillation with [id number] score of 7 on chronic A/C with NOAC's/Eliquis 5. Mitral valve regurgitation 6. Aortic valve stenosis 7. Tricuspid valve regurgitation 8. Pulmonary HTN 9. Diabetes mellitus 10. Hypercholesterolemia 12. Acute on CKD improved 13. Anemia 14. E. coli UTI 15. Right hip pain s/p revision OFE/periprosthetic fracture PLAN: 1. Continue Labetalol 200 bid 2. Continue Amlodipine 5 qd 3. Continue Prinivil 40 qd 4. Continue Lipitor 20 qhs 5. Resume Lasix 40 qd with renal function recovery 6. Continue Eliquis 5 bid with close monitoring of CBC 7. Bronchodilators, oral steroids with GI protection, O2 as needed and Macrobid course as per the primary team 8. PT->SNF, analgesia as needed, right hip revision surgery would be too high risk
--- NOTE | 2017-06-20 11:41 | PN ---
Progress Note, Physician History of Present Illness: pulmonary alert,c/o r hip pain,-sob - Current Medication List Current Medications: Active Medications Albuterol/Ipratropium (Duoneb -) 1 amp NEB Q6H PRN PRN Reason: SHORTNESS OF BREATH Amlodipine Besylate (Norvasc -) 5 mg PO DAILY [facility] Last Admin: 06/20/17 09:54 Dose: 5 mg Apixaban (Eliquis -) 5 mg PO BID [facility] Last Admin: 06/20/17 09:54 Dose: 5 mg Atorvastatin Calcium (Lipitor -) 20 mg PO HS [facility] Last Admin: 06/19/17 21:48 Dose: 20 mg Docusate Sodium (Colace -) 100 mg PO BID PRN PRN Reason: CONSTIPATION Ferrous Sulfate (Feosol -) 325 mg PO BID [facility] Last Admin: 06/20/17 09:54 Dose: 325 mg Insulin Aspart (Novolog Vial Sliding Scale -) 1 vial SQ ACHS [facility] PRN Reason: Protocol Last Admin: 06/20/17 06:05 Dose: 4 units Labetalol HCl (Normodyne -) 200 mg PO BID [facility] Last Admin: 06/20/17 09:55 Dose: 200 mg Lidocaine (Lidoderm Patch -) 1 patch TP DAILY [facility] Last Admin: 06/20/17 09:55 Dose: 1 patch Lisinopril (Prinivil) 40 mg PO DAILY [facility] Last Admin: 06/20/17 09:55 Dose: 40 mg Miscellaneous (Lidoderm Patch Removal) 1 each MC DAILY@2200 [facility] Last Admin: 06/19/17 21:51 Dose: Not Given Nitrofurantoin Macrocrystals (Macrodantin -) 50 mg PO Q6HPO [facility] Last Admin: 06/20/17 06:05 Dose: 50 mg Oxycodone HCl (Roxicodone -) 5 mg PO Q6H PRN PRN Reason: PAIN LEVEL 6-10 Last Admin: 06/20/17 10:00 Dose: 5 mg Pantoprazole Sodium (Protonix -) 40 mg PO DAILY [facility] Last Admin: 06/20/17 09:54 Dose: 40 mg Polyethylene Glycol (Miralax (For Daily Use) -) 17 gm PO DAILY [facility] Last Admin: 06/20/17 09:55 Dose: 17 grams Prednisone (Deltasone -) 20 mg PO BID [facility] Last Admin: 06/20/17 09:55 Dose: 20 mg Senna (Senna -) 2 tab PO HS PRN PRN Reason: CONSTIPATION Sertraline HCl (Zoloft -) 50 mg PO DAILY [facility] Last Admin: 06/20/17 09:54 Dose: 50 mg - Objective Vital Signs: Vital Signs Temperature 97.8 F 06/20/17 05:25 Pulse Rate 65 06/20/17 05:25 Respiratory Rate 20 06/20/17 05:25 Blood Pressure 177/74 06/20/17 05:25 O2 Sat by Pulse Oximetry (%) 96 06/19/17 20:22 Constitutional: Yes: Well Nourished, Calm Eyes: Yes: WNL HENT: Yes: WNL Neck: Yes: WNL Cardiovascular: Yes: Regular Rate and Rhythm, S1, S2 Respiratory: Yes: CTA Bilaterally Gastrointestinal: Yes: Normal Bowel Sounds, Soft Extremities: Yes: WNL Edema: No Labs: CBC, BMP 06/19/17 06:56 06/20/17 05:57 INR, PTT INR 1.37 (0.82-1.09) H 06/15/17 13:40 Problem List - Problems (1) Acute on chronic diastolic (congestive) heart failure Code(s): I50.33 - ACUTE ON CHRONIC DIASTOLIC (CONGESTIVE) HEART FAILURE (2) Anemia Code(s): D64.9 - ANEMIA, UNSPECIFIED Qualifiers: Anemia type: unspecified type Qualified Code(s): D64.9 - Anemia, unspecified (3) Right hip pain Code(s): M25.551 - PAIN IN RIGHT HIP (4) Shortness of breath Code(s): R06.02 - SHORTNESS OF BREATH (5) HTN (hypertension) Code(s): I10 - ESSENTIAL (PRIMARY) HYPERTENSION Qualifiers: Hypertension type: essential hypertension Qualified Code(s): I10 - Essential (primary) hypertension (6) Aortic valve stenosis Code(s): I35.0 - NONRHEUMATIC AORTIC (VALVE) STENOSIS Qualifiers: Cardiac valve disease etiology: nonrheumatic Qualified Code(s): I35.0 - Nonrheumatic aortic (valve) stenosis (7) Back pain Code(s): M54.9 - DORSALGIA, UNSPECIFIED (8) COPD (chronic obstructive pulmonary disease) Code(s): J44.9 - CHRONIC OBSTRUCTIVE PULMONARY DISEASE, UNSPECIFIED Qualifiers: COPD type: unspecified COPD Qualified Code(s): J44.9 - Chronic obstructive pulmonary disease, unspecified (9) Diabetes mellitus Code(s): E11.9 - TYPE 2 DIABETES MELLITUS WITHOUT COMPLICATIONS Qualifiers: Diabetes mellitus type: type 2 Diabetes mellitus complication status: without complication Diabetes mellitus detention insulin use: without watermelon harvesting supervisor use Qualified Code(s): E11.9 - Type 2 diabetes mellitus without complications (10) Diastolic dysfunction Code(s): I51.9 - HEART DISEASE, UNSPECIFIED (11) Hypercholesterolemia Code(s): E78.00 - PURE HYPERCHOLESTEROLEMIA, UNSPECIFIED (12) Mitral valve regurgitation Code(s): I34.0 - NONRHEUMATIC MITRAL (VALVE) INSUFFICIENCY Qualifiers: Cardiac valve disease etiology: nonrheumatic Qualified Code(s): I34.0 - Nonrheumatic mitral (valve) insufficiency (13) Dyspnea Code(s): R06.00 - DYSPNEA, UNSPECIFIED Assessment/Plan MP DYSPNEA improved CHF resolved ASTHMA/COPD PULMONARY HTN AFIB R HIP PAIN DM PLAN O2 INHALED BRONCHODILATORS STEROID TAPER ANALGESICS DR PACHECO Problem List - Problems (1) Acute on chronic diastolic (congestive) heart failure Code(s): I50.33 - ACUTE ON CHRONIC DIASTOLIC (CONGESTIVE) HEART FAILURE (2) Anemia Code(s): D64.9 - ANEMIA, UNSPECIFIED (3) Right hip pain Code(s): M25.551 - PAIN IN RIGHT HIP (4) Shortness of breath Code(s): R06.02 - SHORTNESS OF BREATH (5) HTN (hypertension) Code(s): I10 - ESSENTIAL (PRIMARY) HYPERTENSION Qualifiers: Hypertension type: essential hypertension Qualified Code(s): I10 - Essential (primary) hypertension (6) Aortic valve stenosis Code(s): I35.0 - NONRHEUMATIC AORTIC (VALVE) STENOSIS Qualifiers: Cardiac valve disease etiology: nonrheumatic Qualified Code(s): I35.0 - Nonrheumatic aortic (valve) stenosis (7) Back pain Code(s): M54.9 - DORSALGIA, UNSPECIFIED (8) COPD (chronic obstructive pulmonary disease) Code(s): J44.9 - CHRONIC OBSTRUCTIVE PULMONARY DISEASE, UNSPECIFIED Qualifiers: COPD type: unspecified COPD Qualified Code(s): J44.9 - Chronic obstructive pulmonary disease, unspecified (9) Diabetes mellitus Code(s): E11.9 - TYPE 2 DIABETES MELLITUS WITHOUT COMPLICATIONS Qualifiers: Diabetes mellitus type: type 2 (10) Diastolic dysfunction Code(s): I51.9 - HEART DISEASE, UNSPECIFIED (11) Hypercholesterolemia Code(s): E78.00 - PURE HYPERCHOLESTEROLEMIA, UNSPECIFIED (12) Mitral valve regurgitation Code(s): I34.0 - NONRHEUMATIC MITRAL (VALVE) INSUFFICIENCY Qualifiers: Cardiac valve disease etiology: nonrheumatic Qualified Code(s): I34.0 - Nonrheumatic mitral (valve) insufficiency (13) Dyspnea Code(s): R06.00 - DYSPNEA, UNSPECIFIED
[2017-06-20 11:53] VITALS: TEMP 98.4
[2017-06-20 11:58] VITALS: PULSE 68
[2017-06-20 13:10] VITALS: BP 146/60
== END 2017-06-20 14:00 | DRG 291 ==
LOC: JER 11:21 → JERBED 17:58 → J4W 06-16 21:00 → OBSVTOIN 06-17 11:07
PROVIDERS: ADMIT Hospitalist; ATTEND Nurse Practitioner Acute Care
DX: I13.0 Hypertensive heart and chronic kidney disease with heart failure and stage 1 through stage 4 chronic kidney disease, or unspecified chronic kidney disease (principal); I50.33 Acute on chronic diastolic (congestive) heart failure; N39.0 Urinary tract infection, site not specified; J44.1 Chronic obstructive pulmonary disease with (acute) exacerbation; J45.901 Unspecified asthma with (acute) exacerbation; I48.1 Persistent atrial fibrillation; N17.9 Acute kidney failure, unspecified; E78.5 Hyperlipidemia, unspecified; I35.0 Nonrheumatic aortic (valve) stenosis; I34.0 Nonrheumatic mitral (valve) insufficiency; I36.1 Nonrheumatic tricuspid (valve) insufficiency; B96.20 Unspecified Escherichia coli [E. coli] as the cause of diseases classified elsewhere; D64.9 Anemia, unspecified; M25.551 Pain in right hip; E11.22 Type 2 diabetes mellitus with diabetic chronic kidney disease; N18.2 Chronic kidney disease, stage 2 (mild); I25.119 Atherosclerotic heart disease of native coronary artery with unspecified angina pectoris; I27.20 Pulmonary hypertension, unspecified
CPT/HCPCS: 36415; 71045-TC; 71275-TC; 72192-TC; 73523-TC; 80048; 80053; 81003; 81015; 82550; 82962; 83735; 83880; 84100; 84484; 85025; 85027; 85610; 85730; 87086; 87186; 93005; 93010; 93971-TC; 97116-GP; 97161-GP; 99285-25; G0378

== ENCOUNTER 2017-09-06 11:22 | Inpatient (IN) | payer OTHER ==
[2017-09-06 11:28] VITALS: BMI 33.2
--- NOTE | 2017-09-06 11:55 | PDOC ---
History of Present Illness - General History Source: Patient Exam Limitations: No Limitations - History of Present Illness Initial Comments: 09/06/17 13:50 The patient is a 81 year old female with a significant PMH of Afib, hypertension , diabetes, CHF, asthma, COPD, skin cancer on the forehead in 2010, anemia, hip replacement in January, and hemorrhoids who presents to the emergency department sent in by PCP s/p rectal bleeding that began this morning. The patient states she was straining while having a BM this morning, and subsequently noticed approx. 20 drops of bright and dark blood. The patient reports the stool was loose this AM. Pt denies having rectal bleeding in the past. Pt denies pain with BM, denies abdominal pain, CP, SOB, denies N/V/D, denies F/C. The patient notes she was discharged from rehab for her SOB yesterday and finished two courses of antibiotics for a recent UTI. The patient states she continues to experience a burning sensation at the end of the urinary stream, but denies pain with urination or urine discoloration. The patient is also reporting LE edema and states she has this in the past. Of note , the patient did not take any of her meds today. Allergies: NKA Past surgical history: Rip hip replacement in 2007 and January 2017 Social history: No reported alcohol, cigarette, or drug use. PCP: Dr. Pompa <Junie Estrella - Last Filed: 09/06/17 14:41> <Kassy Linares - Last Filed: 09/06/17 16:41> - General Chief Complaint: Rectal Bleed Stated Complaint: RECTAL BLEEDING (PCP SENT) Time Seen by Provider: 09/06/17 11:54 Past History <Junie Estrella - Last Filed: 09/06/17 14:41> - Past Medical History Anemia: Yes Asthma: Yes Cancer: Yes (SKIN / FOREHEAD 2010) Cardiac Disorders: Yes (A-fib) CVA: No COPD: Yes CHF: Yes Dementia: No Diabetes: Yes GI Disorders: No Disorders: No HTN: Yes Hypercholesterolemia: No Liver Disease: No Seizures: No Thyroid Disease: No - Surgical History Abdominal Surgery: No Appendectomy: No Cardiac Surgery: No Cholecystectomy: No Lung Surgery: No Neurologic Surgery: No Orthopedic Surgery: Yes ((R) HIP REPLACEMENT 2007) - Immunization History Immunization Up to Date: Yes - Suicide/Smoking/Psychosocial Hx Smoking Status: No Smoking History: Never smoked Have you smoked in the past 12 months: No Number of Cigarettes Smoked Daily: 0 If you are a former smoker, when did you quit?: "when I was very young" Information on smoking cessation initiated: No Hx Alcohol Use: No Drug/Substance Use Hx: No Substance Use Type: None Hx Substance Use Treatment: No <Kassy Linares - Last Filed: 09/06/17 16:41> - Past Medical History Allergies/Adverse Reactions: Allergies Allergy/AdvReac Type Severity Reaction Status Date / Time ciprofloxacin [From Cipro] Allergy Verified 09/06/17 11:28 ciprofloxacin HCl Allergy Verified 09/06/17 11:28 [From Cipro] Home Medications: Ambulatory Orders Ferrous Sulfate 325 mg PO BID 12/29/16 Lisinopril [Zestril] 40 mg PO DAILY 12/29/16 Potassium Chloride 20 meq PO DAILY 12/29/16 Simvastatin 40 mg PO DAILY 12/29/16 Albuterol Sulfate [Proair Hfa] 2 inh IH Q4HWA 06/15/17 Labetalol HCl [Normodyne -] 200 mg PO BID 06/15/17 Repaglinide [Prandin -] 1 mg PO TID 06/15/17 Albuterol 2.5/Ipratropium 0.5 [Duoneb -] 1 amp NEB Q6H PRN amp 06/19/17 Amlodipine Besylate [Norvasc -] 5 mg PO DAILY tablet 06/19/17 Insulin Sliding Scale [Novolog Vial Sliding Scale -] 1 vial SQ ACHS units 06/19 Apixaban [Eliquis -] 2.5 mg PO BID 09/06/17 Furosemide [Lasix -] 80 mg PO DAILY 09/06/17 Omeprazole Magnesium [Prilosec Otc] 40 mg PO DAILY 09/06/17 *Physical Exam - Vital Signs Last Vital Signs Temp Pulse Resp BP Pulse Ox 98.4 F 67 18 193/66 92 L 09/06/17 11:24 09/06/17 11:24 09/06/17 11:24 09/06/17 11:24 09/06/17 11:24 <Junie Estrella - Last Filed: 09/06/17 14:41> - Vital Signs Last Vital Signs Temp Pulse Resp BP Pulse Ox 98.4 F 67 18 193/66 92 L 09/06/17 11:24 09/06/17 11:24 09/06/17 11:24 09/06/17 11:24 09/06/17 11:24 - Physical Exam Comments: GENERAL: Awake, alert, and fully oriented, in no acute distress HEAD: No signs of trauma EYES: PERRLA, EOMI, sclera anicteric, conjunctiva clear ENT: Auricles normal inspection, hearing grossly normal, nares patent, oropharynx clear without exudates. Moist mucosa NECK: Normal ROM, supple, no lymphadenopathy, JVD, or masses LUNGS: Breath sounds equal, clear to auscultation bilaterally. No wheezes. + Crackles at the bases B/L. HEART: Regular rate and rhythm, normal S1 and S2, no murmurs, rubs or gallops ABDOMEN: Soft, nontender, normoactive bowel sounds. No guarding, no rebound. No masses EXTREMITIES: Normal range of motion, 2+ pitting edema B/L. No clubbing or cyanosis. No cords, erythema, or tenderness NEUROLOGICAL: Cranial nerves II through XII grossly intact. Normal speech. Motor and sensation intact B/L. SKIN: Warm, Dry, normal turgor, no rashes or lesions noted. <Kassy Linares - Last Filed: 09/06/17 16:41> ED Treatment Course - LABORATORY CBC & Chemistry Diagram: 09/06/17 12:45 09/06/17 12:45 - ADDITIONAL ORDERS Additional order review: Laboratory Results 09/06/17 09/06/17 09/06/17 12:45 12:45 12:25 PT with INR 19.70 H INR 1.74 H Sodium 144 Potassium 3.8 Chloride 106 Carbon Dioxide 28 Anion Gap 10 BUN 13 Creatinine 0.7 Creat Clearance w eGFR > 60 Random Glucose 127 H Calcium 8.4 L Total Bilirubin 0.5 D AST 15 ALT 13 Alkaline Phosphatase 70 Creatine Kinase 34 Troponin I < 0.02 B-Natriuretic Peptide 6672.46 H Total Protein 6.4 Albumin 3.0 L Lipase 77 Stool Occult Blood Negative 09/06/17 12:45 RBC 3.34 L MCV 85.5 MCHC 32.8 RDW 16.3 H MPV 8.5 Neutrophils % 73.0 Lymphocytes % 13.4 D Monocytes % 9.3 D Eosinophils % 3.2 D Basophils % 1.1 D <Junie Estrella - Last Filed: 09/06/17 14:41> - LABORATORY CBC & Chemistry Diagram: 09/06/17 12:45 09/06/17 12:45 <Kassy Linares - Last Filed: 09/06/17 16:41> Medical Decision Making - Medical Decision Making 09/06/17 15:26 Discussion with daughter at bedside (recently arrived in ED). Patient was recently discharged from rehab, was home for first time yesterday. She was treated for UTI with augmentin and then macrobid, did not improve. Daughter also notes that they decreased her lasix while there, and now her legs are swelling, she is periodically getting SOB and has increasing O2 requirement ( did not previously require it at night, now uses it all night). She continues to have dysuria as well. She saw Dr. Ravi this morning, who referred her for admission. She was started on rocephin in ED for UTI, micro is pending. It may be different from prior based on recent hospitalization and rehab stay. Also reinstated her previous lasix dose. She has mild tachypnea in ED, no distress. <Kassy Linares - Last Filed: 09/06/17 16:41> *DC/Admit/Observation/Transfer <Junie Estrella - Last Filed: 09/06/17 14:41> - Discharge Dispostion Admit: Yes <Kassy Linares - Last Filed: 09/06/17 16:41> Diagnosis at time of Disposition: UTI (urinary tract infection) Qualifiers: Urinary tract infection type: site unspecified Hematuria presence: without hematuria Qualified Code(s): N39.0 - Urinary tract infection, site not specified CHF exacerbation Qualifiers: Heart failure type: unspecified Qualified Code(s): I50.9 - Heart failure, unspecified - Discharge Dispostion Condition at time of disposition: Stable
[2017-09-06 12:50] LABS: BASO % 1.1 % (0-2.0); EOS % 3.2 % (0-4.5); HEMATOCRIT 28.6 % (32.4-45.2); HEMOGLOBIN 9.4 GM/dL (10.7-15.3); LYMPH % 13.4 % (8-40); MCH 28.1 pg (25.7-33.7); MCHC 32.8 g/dl (32.0-36.0); MEAN CELL VOLUME 85.5 fl (80-96); MEAN PLT VOLUME 8.5 fl (7.5-11.1); MONO % 9.3 % (3.8-10.2); PLATELET COUNT 246 K/MM3 (134-434); RBC 3.34 M/mm3 (3.60-5.2); RDW 16.3 % (11.6-15.6)
[2017-09-06 13:21] LABS: ALK PHOS 70 U/L (45-117); ANION GAP 10 (8-16); BILIRUBIN,TOTAL 0.5 mg/dL (0.2-1.0); BLOOD UREA NITROGEN 13 mg/dL (7-18); CALCIUM 8.4 mg/dL (8.5-10.1); CHLORIDE 106 mmol/L (98-107); CO2 28 mmol/L (21-32); CREATININE 0.7 mg/dL (0.55-1.02); GLUCOSE,RANDOM 127 mg/dL (74-106); LIPASE 77 U/L (73-393); POTASSIUM 3.8 mmol/L (3.5-5.1); SGOT/AST 15 U/L (15-37); SGPT/ALT 13 U/L (12-78); SODIUM 144 mmol/L (136-145); TOT PROT 6.4 g/dl (6.4-8.2)
[2017-09-06 13:23] LABS: N-TERMINAL BNP 6672.46 pg/ml (5-450)
[2017-09-06] MEDS ORDERED: LISINOPRIL 20 MG TABLET (FP) PO ONE (13:36)
[2017-09-06] MEDS ORDERED: FUROSEMIDE 40 MG TABLET (FP) PO ONE ×2 (13:36→14:41)
[2017-09-06] MEDS ORDERED: amLODIPine BESYLATE 5 MG TABLET (FP) PO ONE (13:36)
[2017-09-06] MEDS ORDERED: LABETALOL HCL 200 MG TABLET (FP) PO ONE (13:36)
[2017-09-06] MEDS ORDERED: REPAGLINIDE 1 MG TABLET PO ONE (13:38)
[2017-09-06 13:42] LABS: INR 1.74 (0.82-1.09); PROTHROMBIN TIME (PATIENT) 19.7 SEC (9.98-11.88)
[2017-09-06] MEDS ORDERED: APIXABAN 2.5 MG TABLET PO SCH ×3 (13:45→22:00)
[2017-09-06 13:52] LABS: URINE APPEARANCE CLOUDY; URINE BILIRUBIN NEGATIVE (<2.0 mg/dL); URINE COLOR YELLOW; URINE GLUCOSE (UA) NEGATIVE (NEGATIVE); URINE KETONE NEGATIVE (NEGATIVE); URINE NITRITE POSITIVE (NEGATIVE); URINE UROBILINOGEN NEGATIVE mg/dL (0.2-1.0)
[2017-09-06 13:56] LABS: URINE LEUK ESTERASE 3+ (NEGATIVE); URINE PROTEIN 2+ (NEGATIVE)
[2017-09-06 13:58] LABS: URINE BACTERIA MODERATE /hpf (NONE SEEN); URINE MUCUS RARE; YEAST FEW
[2017-09-06] MEDS ORDERED: LISINOPRIL 20 MG TABLET (FP) ONE (14:31)
[2017-09-06] MEDS ORDERED: FUROSEMIDE 40 MG TABLET (FP) ONE (14:31)
[2017-09-06] MEDS ORDERED: amLODIPine BESYLATE 5 MG TABLET (FP) ONE (14:31)
[2017-09-06] MEDS ORDERED: LABETALOL HCL 100 MG TABLET (FP) ONE (14:32)
[2017-09-06] MEDS ORDERED: CEFTRIAXONE 1,000 MG in DEXTROSE 5%-WATER - 50 ML IVPB ONE (14:42)
[2017-09-06] MEDS ORDERED: CEFTRIAXONE 1 GM/50 ML BAG ONE (14:52)
--- NOTE | 2017-09-06 15:33 | HP ---
CHIEF COMPLAINT: Dysuria, lower extremity edema, hemorrhoidal bleeding PCP: Dr. Ravi HISTORY OF PRESENT ILLNESS: 81 year-old female with a PMH significant for HTN, heart failure, atrial fibrillation on Eliquis, asthma/COPD, IDDM, skin cancer, anemia, 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 Patient was discharged from [facility] yesterday. She was recently treated there with two different courses of PO antibiotics for a UTI, but patient continues to experience dysuria. Patient also states did not get her correct dose of Lasix at [facility] and her legs are edematous. Finally, while straining this morning to have a BM she noticed about 20 drops of bright red and dark red blood in the toilet. Patient did not take her morning medications today. ER course was notable for: (1) BP 193/66 (2) BNP 6672 (3) Pyuria - 83 WBCs Recent Travel: No PAST MEDICAL HISTORY: Hypertension Heart failure Atrial fibrillation Asthma/COPD IDDM Skin cancer on the forehead (2010) Anemia Hemorrhoids PAST SURGICAL HISTORY: Right hip replacement 2007 ([facility]) ORIF and revision right hip 01/2017 ([facility]) Social History: Smoking: no Alcohol: no Drugs: no Family History: Allergies ciprofloxacin [From Cipro] Allergy (Verified 09/06/17 11:28) HOME MEDICATIONS: Home Medications Medication Instructions Recorded Ferrous Sulfate 325 mg PO BID 12/29/16 Lisinopril [Zestril] 40 mg PO DAILY 12/29/16 Potassium Chloride 20 meq PO DAILY 12/29/16 Simvastatin 40 mg PO DAILY 12/29/16 Albuterol Sulfate [Proair Hfa] 2 inh IH Q4HWA 06/15/17 Labetalol HCl [Normodyne -] 200 mg PO BID 06/15/17 Repaglinide [Prandin -] 1 mg PO TID 06/15/17 Albuterol 2.5/Ipratropium 0.5 1 amp NEB Q6H PRN amp 06/19/17 [Duoneb -] Amlodipine Besylate [Norvasc -] 5 mg PO DAILY tablet 06/19/17 Insulin Sliding Scale [Novolog 1 vial SQ ACHS units 06/19/17 Vial Sliding Scale -] Apixaban [Eliquis -] 2.5 mg PO BID 09/06/17 Furosemide [Lasix -] 80 mg PO DAILY 09/06/17 Omeprazole Magnesium [Prilosec Otc] 40 mg PO DAILY 09/06/17 REVIEW OF SYSTEMS CONSTITUTIONAL: Absent: fever, chills, diaphoresis, generalized weakness, malaise, loss of appetite, weight change HEENT: Absent: rhinorrhea, nasal congestion, throat pain, throat swelling, difficulty swallowing, mouth swelling, ear pain, eye pain, visual changes CARDIOVASCULAR: +lower extremity edema Absent: chest pain, syncope, palpitations, irregular heart rate, lightheadedness , peripheral edema RESPIRATORY: Absent: cough, shortness of breath, dyspnea with exertion, orthopnea, wheezing, stridor, hemoptysis GASTROINTESTINAL: +rectal spotting blood Absent: abdominal pain, abdominal distension, nausea, vomiting, diarrhea, constipation, melena, hematochezia GENITOURINARY: +dysuria Absent: frequency, urgency, hesitancy, hematuria, flank pain, genital pain MUSCULOSKELETAL: Absent: myalgia, arthralgia, joint swelling, back pain, neck pain SKIN: Absent: rash, itching, pallor HEMATOLOGIC/IMMUNOLOGIC: Absent: easy bleeding, easy bruising, lymphadenopathy, frequent infections ENDOCRINE: Absent: unexplained weight gain, unexplained weight loss, heat intolerance, cold intolerance NEUROLOGIC: Absent: headache, focal weakness or paresthesias, dizziness, unsteady gait, seizure, mental status changes, bladder or bowel incontinence PSYCHIATRIC: Absent: anxiety, depression, suicidal or homicidal ideation, hallucinations. PHYSICAL EXAMINATION Vital Signs - 24 hr 09/06/17 09/06/17 11:24 14:28 Temperature 98.4 F Pulse Rate 67 Pulse Rate [ 57 L Apical] Respiratory 18 20 Rate Blood Pressure 193/66 Blood Pressure 194/60 [Right Arm] O2 Sat by Pulse 92 L 99 Oximetry (%) GENERAL: Awake, alert, and fully oriented, in no acute distress. HEAD: Normal with no signs of trauma. EYES: Pupils equal, round and reactive to light, extraocular movements intact, sclera anicteric, conjunctiva clear. No lid lag. EARS, NOSE, THROAT: Ears normal, nares patent, oropharynx clear without exudates. Moist mucous membranes. NECK: Normal range of motion, supple without lymphadenopathy, JVD, or masses. LUNGS: Breath sounds equal, clear to auscultation bilaterally. No wheezes, and no crackles. No accessory muscle use. HEART: Regular rate and rhythm, normal S1 and S2 without murmur, rub or gallop. ABDOMEN: Soft, nontender, not distended, normoactive bowel sounds, no guarding, no rebound, no masses. No hepatomegaly or splenomegaly. MUSCULOSKELETAL: Normal range of motion at all joints. No bony deformities or tenderness. No CVA tenderness. UPPER EXTREMITIES: 2+ pulses, warm, well-perfused. No cyanosis. No clubbing. No peripheral edema. LOWER EXTREMITIES: 2+ pulses, warm, well-perfused. No calf tenderness. No peripheral edema. NEUROLOGICAL: Cranial nerves II-XII intact. Normal speech. Normal gait. PSYCHIATRIC: Cooperative. Good eye contact. Appropriate mood and affect. SKIN: Warm, dry, normal turgor, no rashes or lesions noted, normal capillary refill. Laboratory Results - last 24 hr 09/06/17 09/06/17 09/06/17 12:25 12:45 12:45 WBC 8.0 RBC 3.34 L Hgb 9.4 L D Hct 28.6 L D MCV 85.5 MCH 28.1 MCHC 32.8 RDW 16.3 H Plt Count 246 MPV 8.5 Neutrophils % 73.0 Lymphocytes % 13.4 D Monocytes % 9.3 D Eosinophils % 3.2 D Basophils % 1.1 D PT with INR 19.70 H INR 1.74 H Sodium Potassium Chloride Carbon Dioxide Anion Gap BUN Creatinine Creat Clearance w eGFR Random Glucose Calcium Total Bilirubin AST ALT Alkaline Phosphatase Creatine Kinase Troponin I B-Natriuretic Peptide Total Protein Albumin Lipase Urine Color Urine Appearance Urine pH Ur Specific [place] Urine Protein Urine Glucose (UA) Urine Ketones Urine Blood Urine Nitrite Urine Bilirubin Urine Urobilinogen Ur Leukocyte Esterase Urine WBC (Auto) Urine RBC (Auto) Urine Bacteria Urine Mucus Urine Yeast Stool Occult Blood Negative 09/06/17 09/06/17 12:45 13:35 WBC RBC Hgb Hct MCV MCH MCHC RDW Plt Count MPV Neutrophils % Lymphocytes % Monocytes % Eosinophils % Basophils % PT with INR INR Sodium 144 Potassium 3.8 Chloride 106 Carbon Dioxide 28 Anion Gap 10 BUN 13 Creatinine 0.7 Creat Clearance w eGFR > 60 Random Glucose 127 H Calcium 8.4 L Total Bilirubin 0.5 D AST 15 ALT 13 Alkaline Phosphatase 70 Creatine Kinase 34 Troponin I < 0.02 B-Natriuretic Peptide 6672.46 H Total Protein 6.4 Albumin 3.0 L Lipase 77 Urine Color Yellow Urine Appearance Cloudy Urine pH 5.0 Ur Specific [place] 1.012 Urine Protein 2+ H Urine Glucose (UA) Negative Urine Ketones Negative Urine Blood 2+ H Urine Nitrite Positive Urine Bilirubin Negative Urine Urobilinogen Negative Ur Leukocyte Esterase 3+ H D Urine WBC (Auto) 83 Urine RBC (Auto) 8 Urine Bacteria Moderate Urine Mucus Rare Urine Yeast Few Stool Occult Blood Imaging 04/2014 Echo: LV normal; RV normal; BLAE; moderate to severe MR; moderate TR; moderate pHTN; mild to moderate , trace AI; mild to moderate PI ASSESSMENT/PLAN: 81 year-old female with a PMH significant for HTN, HLD, non-obstructive CAD, diastolic heart failure, significant cardiac valvular pathology, pulmonary HTN, persistent atrial fibrillation on Eliquis, asthma/COPD, IDDM, CKD, anemia, skin cancer, 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 Acute on chronic diastolic heart failure --lower extremity edema, congestive changes on CXR, BNP 6672 --Lasix IV 40mg BID --last echo in EMR from 04/2014, will get repeat --strict I&Os, daily weights Hypertension --resume lisinopril, labetolol, amlodipine Persistent atrial fibrillation --rate-controlled --continue Eliquis 5mg BID Asthma/COPD --duonebs PRN Hyperlipidemia Non-obstructive CAD --continue Lipitor CKD --Cr 0.7 Anemia --h/h stable --continue ferrous sulfate --bowel regimen Skin cancer --no cute issues Hemorrhoids --brief episode of spotting this morning while straining to have BM UTI --pyuria --empiric ceftriaxone --culture pending IDDM --Novolog sliding scale coverage FEN Fluids: PO intake adequate Electrolytes: replete as indicated Nutrition: low sodium, diabetic DVT prophylaxis: on Eliquis Physical therapy Dispo: continues to require inpatient care. Full code. Visit type - Emergency Visit Emergency Visit: Yes ED Registration Date: 09/06/17 Care time: The patient presented to the Emergency Department on the above date and was hospitalized for further evaluation of their emergent condition. - New Patient This patient is new to me today: Yes Date on this admission: 09/06/17 - Critical Care Critical Care patient: No Hospitalist Screening - Colonoscopy Questionnaire Colonoscopy Questionnaire: Colonoscopy Questionnaire - Patient: 50 - 75 years old and never had a screening colonoscopy: Unknown History of colon or rectal polyps, or CA: Unknown History of IBD, Crohn's disease or UC: Unknown History of abdominal radiation therapy as a child: Unknown - Relative: 1 with colon or rectal CA, or polyps at age 60 or younger: Unknown Colon or rectal CA diagnosed at age 45 or younger: Unknown Multiple relatives with colon or rectal CA: Unknown - Outcome: Screening Result: Negative Screen
[2017-09-06] MEDS ORDERED: ALBUTEROL SO4 2.5/IPRATROPIUM 0.5 INH SOL 3 ML VIAL.NEB. NEB PRN (15:48)
[2017-09-06] MEDS ORDERED: HEPARIN NA (PORCINE) 5,000 UNITS/ML 1ML VIAL SQ SCH (18:00)
[2017-09-06] MEDS: APIXABAN 5 MG TABLET PO SCH (23:07)
[2017-09-06] MEDS: DOCUSATE SODIUM 100 MG CAPSULE (FP) PO SCH (23:08)
[2017-09-06] MEDS: INSULIN SLIDING SCALE (NOVOLOG) 1 VIAL SQ SCH (23:08)
[2017-09-06] MEDS: POLYETHYLENE GLYCOL 3350 119 GM BTL PO SCH (23:09)
[2017-09-06] MEDS: ATORVASTATIN CA 20 MG TABLET (FP) PO SCH (23:09)
[2017-09-06] MEDS: LABETALOL HCL 200 MG TABLET (FP) PO SCH (23:09)
[2017-09-07] MEDS ORDERED: ACETAMINOPHEN 325 MG TABLET (FP) PO ONE (04:30)
[2017-09-07] MEDS: FUROSEMIDE 40 MG/4 ML INJECTABLE VIAL IVPUSH SCH ×2 (06:47→15:35)
[2017-09-07] MEDS: INSULIN SLIDING SCALE (NOVOLOG) 1 VIAL SQ SCH ×6 (06:47→21:46)
[2017-09-07 07:35] LABS: BASO % 1.1 % (0-2.0); HEMATOCRIT 25.8 % (32.4-45.2); HEMOGLOBIN 8.5 GM/dL (10.7-15.3); LYMPH % 13.3 % (8-40); MCH 28.1 pg (25.7-33.7); MEAN CELL VOLUME 85.3 fl (80-96); MEAN PLT VOLUME 8.5 fl (7.5-11.1); MONO % 10.5 % (3.8-10.2); NEUT % 71.1 % (42.8-82.8); PLATELET COUNT 220 K/MM3 (134-434); RBC 3.03 M/mm3 (3.60-5.2); RDW 16.3 % (11.6-15.6); WHITE BLOOD COUNT 7.6 K/mm3 (4.0-10.0)
[2017-09-07 08:06] LABS: INR 1.84 (0.82-1.09); PROTHROMBIN TIME (PATIENT) 20.8 SEC (9.98-11.88)
[2017-09-07 08:07] LABS: ALBUMIN 2.7 g/dl (3.4-5.0); ANION GAP 6 (8-16); BLOOD UREA NITROGEN 11 mg/dL (7-18); CALCIUM 7.7 mg/dL (8.5-10.1); CHLORIDE 108 mmol/L (98-107); CO2 30 mmol/L (21-32); GLUCOSE,RANDOM 119 mg/dL (74-106); MAGNESIUM 1.2 mg/dL (1.8-2.4); POTASSIUM 3.5 mmol/L (3.5-5.1); SODIUM 144 mmol/L (136-145)
[2017-09-07 08:08] LABS: ACTIVATED PTT 30.9 SECONDS (26.9-34.4)
[2017-09-07 08:11] LABS: ALK PHOS 60 U/L (45-117); BILIRUBIN,TOTAL 0.3 mg/dL (0.2-1.0); CREATININE 0.7 mg/dL (0.55-1.02); PHOSPHOROUS 3.9 mg/dL (2.5-4.9); SGOT/AST 8 U/L (15-37); SGPT/ALT 10 U/L (12-78); TOT PROT 5.5 g/dl (6.4-8.2)
[2017-09-07] MEDS ORDERED: DEXTROSE 5%-WATER - 50 ML IVPB ONE (10:30)
[2017-09-07] MEDS ORDERED: cefTRIAXone SODIUM 1 GM VIAL ONE (10:30)
[2017-09-07] MEDS ORDERED: PT OWN MED DRAWER 7, Y5N ONE ×2 (10:30→21:07)
[2017-09-07] MEDS: LABETALOL HCL 200 MG TABLET (FP) PO SCH ×2 (10:35→21:45)
[2017-09-07] MEDS: LISINOPRIL 20 MG TABLET (FP) PO SCH (10:35)
[2017-09-07] MEDS: APIXABAN 5 MG TABLET PO SCH ×2 (10:36→21:45)
[2017-09-07] MEDS: PANTOPRAZOLE 40 MG TABLET (FP) PO SCH (10:36)
[2017-09-07] MEDS: amLODIPine BESYLATE 5 MG TABLET (FP) PO SCH (10:36)
[2017-09-07] MEDS: CEFTRIAXONE 1 GM in DEXTROSE 5%-WATER - 50 ML IVPB SCH (10:40)
[2017-09-07] MEDS: POLYETHYLENE GLYCOL 3350 119 GM BTL PO SCH ×2 (10:40→21:46)
[2017-09-07] MEDS ORDERED: MAGNESIUM SULF 50% (8.12 MEQ/2 ML-1 GM VIAL) IVPB ONE (10:58)
--- NOTE | 2017-09-07 10:58 | PN ---
Physical Exam: SUBJECTIVE: Patient seen and examined sitting on edge of bed. OBJECTIVE: Vital Signs Period Temp Pulse Resp BP Sys/Mo Pulse Ox Last 24 Hr 98.1 F-98.7 F 52-82 17-20 114-194/55-89 92-99 GENERAL: The patient is awake, alert, and fully oriented, in no acute distress. LUNGS: Crackles bilaterally prison up; very diminished at the bases HEART: Regular rate and rhythm, S1, S2 ABDOMEN: Soft, nontender, nondistended, normoactive bowel sounds, no guarding, no rebound EXTREMITIES: 2+ pulses, warm, well-perfused, 1-2+ lower extremity edema bilaterally NEUROLOGICAL: Cranial nerves II through XII grossly intact. Normal speech Laboratory Results - last 24 hr 09/06/17 09/06/17 09/06/17 12:25 12:45 12:45 WBC 8.0 RBC 3.34 L Hgb 9.4 L D Hct 28.6 L D MCV 85.5 MCH 28.1 MCHC 32.8 RDW 16.3 H Plt Count 246 MPV 8.5 Neutrophils % 73.0 Lymphocytes % 13.4 D Monocytes % 9.3 D Eosinophils % 3.2 D Basophils % 1.1 D PT with INR 19.70 H INR 1.74 H PTT (Actin FS) Sodium Potassium Chloride Carbon Dioxide Anion Gap BUN Creatinine Creat Clearance w eGFR POC Glucometer Random Glucose Calcium Phosphorus Magnesium Total Bilirubin AST ALT Alkaline Phosphatase Creatine Kinase Troponin I B-Natriuretic Peptide Total Protein Albumin Lipase Urine Color Urine Appearance Urine pH Ur Specific [place] Urine Protein Urine Glucose (UA) Urine Ketones Urine Blood Urine Nitrite Urine Bilirubin Urine Urobilinogen Ur Leukocyte Esterase Urine WBC (Auto) Urine RBC (Auto) Urine Bacteria Urine Mucus Urine Yeast Stool Occult Blood Negative 09/06/17 09/06/17 09/06/17 12:45 13:35 22:11 WBC RBC Hgb Hct MCV MCH MCHC RDW Plt Count MPV Neutrophils % Lymphocytes % Monocytes % Eosinophils % Basophils % PT with INR INR PTT (Actin FS) Sodium 144 Potassium 3.8 Chloride 106 Carbon Dioxide 28 Anion Gap 10 BUN 13 Creatinine 0.7 Creat Clearance w eGFR > 60 POC Glucometer 150 Random Glucose 127 H Calcium 8.4 L Phosphorus Magnesium Total Bilirubin 0.5 D AST 15 ALT 13 Alkaline Phosphatase 70 Creatine Kinase 34 Troponin I < 0.02 B-Natriuretic Peptide 6672.46 H Total Protein 6.4 Albumin 3.0 L Lipase 77 Urine Color Yellow Urine Appearance Cloudy Urine pH 5.0 Ur Specific [place] 1.012 Urine Protein 2+ H Urine Glucose (UA) Negative Urine Ketones Negative Urine Blood 2+ H Urine Nitrite Positive Urine Bilirubin Negative Urine Urobilinogen Negative Ur Leukocyte Esterase 3+ H D Urine WBC (Auto) 83 Urine RBC (Auto) 8 Urine Bacteria Moderate Urine Mucus Rare Urine Yeast Few Stool Occult Blood 09/07/17 09/07/17 09/07/17 06:00 06:00 06:00 WBC 7.6 RBC 3.03 L Hgb 8.5 L Hct 25.8 L MCV 85.3 MCH 28.1 MCHC 33.0 RDW 16.3 H Plt Count 220 MPV 8.5 Neutrophils % 71.1 Lymphocytes % 13.3 Monocytes % 10.5 H Eosinophils % 4.0 Basophils % 1.1 PT with INR 20.80 H INR 1.84 H PTT (Actin FS) 30.9 D Sodium 144 Potassium 3.5 Chloride 108 H Carbon Dioxide 30 Anion Gap 6 L BUN 11 Creatinine 0.7 Creat Clearance w eGFR > 60 POC Glucometer Random Glucose 119 H Calcium 7.7 L Phosphorus 3.9 Magnesium 1.2 L Total Bilirubin 0.3 D AST 8 L ALT 10 L Alkaline Phosphatase 60 Creatine Kinase Troponin I B-Natriuretic Peptide Total Protein 5.5 L Albumin 2.7 L Lipase Urine Color Urine Appearance Urine pH Ur Specific [place] Urine Protein Urine Glucose (UA) Urine Ketones Urine Blood Urine Nitrite Urine Bilirubin Urine Urobilinogen Ur Leukocyte Esterase Urine WBC (Auto) Urine RBC (Auto) Urine Bacteria Urine Mucus Urine Yeast Stool Occult Blood Active Medications Generic Name Dose Route Start Last Admin Trade Name Freq PRN Reason Stop Dose Admin Albuterol/Ipratropium 1 amp 09/06/17 15:48 Duoneb - NEB Q6H PRN SHORTNESS OF BREATH Amlodipine Besylate 5 mg 09/07/17 10:00 09/07/17 10:36 Norvasc - PO 5 mg DAILY PK Administration Apixaban 5 mg 09/06/17 22:00 09/07/17 10:36 Eliquis - PO 5 mg BID PK Administration Atorvastatin Calcium 20 mg 09/06/17 22:00 09/06/17 23:09 Lipitor - PO 20 mg HS PK Administration Docusate Sodium 300 mg 09/06/17 22:00 09/06/17 23:08 Colace - PO 300 mg HS PK Administration Furosemide 40 mg 09/07/17 06:00 09/07/17 06:47 Lasix Injection - IVPUSH 40 mg BID@0600,1400 PK Administration Ceftriaxone Sodium 1 gm/ 50 mls @ 100 mls/hr 09/07/17 10:00 09/07/17 10:40 Dextrose IVPB 100 mls/hr DAILY KP Administration Insulin Aspart 1 vial 09/06/17 16:30 09/07/17 06:47 Novolog Vial Sliding Scale - SQ Not Given ACHS [facility] Protocol Labetalol HCl 200 mg 09/06/17 22:00 09/07/17 10:35 Normodyne - PO 200 mg BID PK Administration Lisinopril 40 mg 09/07/17 10:00 09/07/17 10:35 Prinivil PO 40 mg DAILY PK Administration Pantoprazole Sodium 40 mg 09/07/17 10:00 09/07/17 10:36 Protonix - PO 40 mg DAILY PK Administration Polyethylene Glycol 17 gm 09/06/17 22:00 09/07/17 10:40 Miralax (For Daily Use) - PO 17 grams BID PK Administration ASSESSMENT/PLAN 81 year-old female with a PMH significant for HTN, HLD, non-obstructive CAD, diastolic heart failure, significant cardiac valvular pathology, pulmonary HTN, persistent atrial fibrillation on Eliquis, asthma/COPD, IDDM, CKD, anemia, skin cancer, 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 Acute on chronic diastolic heart failure --lower extremity edema, congestive changes on CXR, BNP 6672 --Lasix IV 40mg BID --last echo in EMR from 04/2014, will get repeat --strict I&Os, daily weights Hypertension --resume lisinopril, labetolol, amlodipine Persistent atrial fibrillation --rate-controlled --continue Eliquis 5mg BID Asthma/COPD --duonebs PRN Hyperlipidemia Non-obstructive CAD --continue Lipitor CKD --Cr 0.7 Anemia --h/h stable --continue ferrous sulfate --bowel regimen Skin cancer --no acute issues Hemorrhoids --one brief episode of spotting while straining to have BM UTI --pyuria --empiric ceftriaxone --culture pending IDDM --Novolog sliding scale coverage FEN Fluids: PO intake adequate Electrolytes: replete as indicated Nutrition: low sodium, diabetic DVT prophylaxis: on Eliquis Physical therapy Dispo: continues to require inpatient care. Full code. Visit type - Emergency Visit Emergency Visit: Yes ED Registration Date: 09/06/17 Care time: The patient presented to the Emergency Department on the above date and was hospitalized for further evaluation of their emergent condition. - New Patient This patient is new to me today: No - Critical Care Critical Care patient: No
[2017-09-07] MEDS ORDERED: MAGNESIUM SULFATE IN WATER 2 GM/50 ML IVPB IVPB ONE (11:30)
[2017-09-07] MEDS ORDERED: MAGNESIUM 1GM/D5W - 1 GM/100 ML IVPB IVPB ONE (11:30)
[2017-09-07] MEDS ORDERED: ALBUTEROL SO4 2.5/IPRATROPIUM 0.5 INH SOL 3 ML VIAL.NEB. NEB ONE (15:38)
[2017-09-07] MEDS: ALBUTEROL SO4 2.5/IPRATROPIUM 0.5 INH SOL 3 ML VIAL.NEB. NEB SCH (20:30)
[2017-09-07] MEDS: DOCUSATE SODIUM 100 MG CAPSULE (FP) PO SCH (21:45)
[2017-09-07] MEDS: ATORVASTATIN CA 20 MG TABLET (FP) PO SCH (21:45)
[2017-09-08] MEDS: FUROSEMIDE 40 MG/4 ML INJECTABLE VIAL IVPUSH SCH ×2 (06:18→13:15)
[2017-09-08] MEDS: INSULIN SLIDING SCALE (NOVOLOG) 1 VIAL SQ SCH ×4 (06:21→21:53)
[2017-09-08] MEDS: ALBUTEROL SO4 2.5/IPRATROPIUM 0.5 INH SOL 3 ML VIAL.NEB. NEB SCH ×3 (07:35→21:27)
[2017-09-08 08:27] LABS: CHLORIDE 104 mmol/L (98-107); POTASSIUM 3.2 mmol/L (3.5-5.1); SODIUM 143 mmol/L (136-145)
[2017-09-08 08:35] LABS: BASO % 0.7 % (0-2.0); EOS % 4.3 % (0-4.5); HEMATOCRIT 26.4 % (32.4-45.2); HEMOGLOBIN 8.7 GM/dL (10.7-15.3); LYMPH % 12.4 % (8-40); MEAN CELL VOLUME 84.9 fl (80-96); MEAN PLT VOLUME 8.8 fl (7.5-11.1); MONO % 10.5 % (3.8-10.2); NEUT % 72.1 % (42.8-82.8); PLATELET COUNT 224 K/MM3 (134-434); RBC 3.12 M/mm3 (3.60-5.2); RDW 16.4 % (11.6-15.6); WHITE BLOOD COUNT 6.7 K/mm3 (4.0-10.0)
[2017-09-08 08:44] LABS: ALBUMIN 2.8 g/dl (3.4-5.0); ALK PHOS 64 U/L (45-117); ANION GAP 6 (8-16); BILIRUBIN,TOTAL 0.3 mg/dL (0.2-1.0); BLOOD UREA NITROGEN 11 mg/dL (7-18); CALCIUM 7.8 mg/dL (8.5-10.1); CO2 33 mmol/L (21-32); CREATININE 0.8 mg/dL (0.55-1.02); GLUCOSE,RANDOM 118 mg/dL (74-106); MAGNESIUM 1.5 mg/dL (1.8-2.4); SGOT/AST 11 U/L (15-37); SGPT/ALT 10 U/L (12-78); TOT PROT 5.6 g/dl (6.4-8.2)
[2017-09-08] MEDS ORDERED: MAGNESIUM SULF 50% (8.12 MEQ/2 ML-1 GM VIAL) IVPB ONE (09:26)
--- NOTE | 2017-09-08 10:13 | PN ---
Physical Exam: SUBJECTIVE: Patient seen and examined oob to chair. Complaining of watery diarrhea. No hematuria, no blood in stool or seen in toilet. OBJECTIVE: Vital Signs Period Temp Pulse Resp BP Sys/Mo Pulse Ox Last 24 Hr 98 F-98.9 F 63-78 18-20 149-159/63-84 95 GENERAL: The patient is awake, alert, and fully oriented, in no acute distress. LUNGS: Crackles bilaterally senior care up; very diminished at the bases; mild expiratory wheeze HEART: Regular rate and rhythm, S1, S2 ABDOMEN: Soft, nontender, nondistended, normoactive bowel sounds, no guarding, no rebound EXTREMITIES: 2+ pulses, warm, well-perfused, 1-2+ lower extremity edema bilaterally, improved NEUROLOGICAL: Cranial nerves II through XII grossly intact. Normal speech Laboratory Results - last 24 hr 09/07/17 09/07/17 09/07/17 06:46 11:01 17:16 WBC RBC Hgb Hct MCV MCH MCHC RDW Plt Count MPV Neutrophils % Lymphocytes % Monocytes % Eosinophils % Basophils % Sodium Potassium Chloride Carbon Dioxide Anion Gap BUN Creatinine Creat Clearance w eGFR POC Glucometer 134 204 183 Random Glucose Calcium Magnesium Total Bilirubin AST ALT Alkaline Phosphatase Total Protein Albumin 09/07/17 09/08/17 09/08/17 20:44 06:20 06:35 WBC 6.7 RBC 3.12 L Hgb 8.7 L Hct 26.4 L MCV 84.9 MCH 28.0 MCHC 33.0 RDW 16.4 H Plt Count 224 MPV 8.8 Neutrophils % 72.1 Lymphocytes % 12.4 Monocytes % 10.5 H Eosinophils % 4.3 Basophils % 0.7 Sodium Potassium Chloride Carbon Dioxide Anion Gap BUN Creatinine Creat Clearance w eGFR POC Glucometer 151 134 Random Glucose Calcium Magnesium Total Bilirubin AST ALT Alkaline Phosphatase Total Protein Albumin 09/08/17 06:35 WBC RBC Hgb Hct MCV MCH MCHC RDW Plt Count MPV Neutrophils % Lymphocytes % Monocytes % Eosinophils % Basophils % Sodium 143 Potassium 3.2 L Chloride 104 Carbon Dioxide 33 H Anion Gap 6 L BUN 11 Creatinine 0.8 Creat Clearance w eGFR > 60 POC Glucometer Random Glucose 118 H Calcium 7.8 L Magnesium 1.5 L Total Bilirubin 0.3 AST 11 L ALT 10 L Alkaline Phosphatase 64 Total Protein 5.6 L Albumin 2.8 L Active Medications Generic Name Dose Route Start Last Admin Trade Name Hilario PRN Reason Stop Dose Admin Albuterol/Ipratropium 1 amp 09/07/17 20:00 09/07/17 20:30 Duoneb - NEB 1 amp RTID PK Administration Amlodipine Besylate 5 mg 09/07/17 10:00 09/07/17 10:36 Norvasc - PO 5 mg DAILY PK Administration Apixaban 5 mg 09/06/17 22:00 09/07/17 21:45 Eliquis - PO 5 mg BID PK Administration Atorvastatin Calcium 20 mg 09/06/17 22:00 09/07/17 21:45 Lipitor - PO 20 mg HS PK Administration Docusate Sodium 300 mg 09/06/17 22:00 09/07/17 21:45 Colace - PO 300 mg HS PK Administration Furosemide 40 mg 09/07/17 06:00 09/08/17 06:18 Lasix Injection - IVPUSH 40 mg BID@0600,1400 PK Administration Ceftriaxone Sodium 1 gm/ 50 mls @ 100 mls/hr 09/07/17 10:00 09/07/17 10:40 Dextrose IVPB 100 mls/hr DAILY PK Administration Insulin Aspart 1 vial 09/06/17 16:30 09/08/17 06:21 Novolog Vial Sliding Scale - SQ Not Given ACHS [facility] Protocol Labetalol HCl 200 mg 09/06/17 22:00 09/07/17 21:45 Normodyne - PO 200 mg BID PK Administration Lisinopril 40 mg 09/07/17 10:00 09/07/17 10:35 Prinivil PO 40 mg DAILY PK Administration Pantoprazole Sodium 40 mg 09/07/17 10:00 09/07/17 10:36 Protonix - PO 40 mg DAILY PK Administration Polyethylene Glycol 17 gm 09/06/17 22:00 09/07/17 21:46 Miralax (For Daily Use) - PO 17 grams BID PK Administration Potassium Chloride 40 meq 09/08/17 09:30 K-Dur - PO 09/08/17 21:31 Q6H PK ASSESSMENT/PLAN: 81 year-old female with a PMH significant for HTN, HLD, non-obstructive CAD, diastolic heart failure, significant cardiac valvular pathology, pulmonary HTN, persistent atrial fibrillation on Eliquis, asthma/COPD, IDDM, CKD, anemia, skin cancer, 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 Acute on chronic diastolic heart failure --lower extremity edema, congestive changes on CXR, BNP 6672 --Lasix IV 40mg BID; down 3.0kg in past 24 hours with stable renal function --last echo in EMR from 04/2014, will get repeat --strict I&Os, daily weights Hypertension --resume lisinopril, labetolol, amlodipine Persistent atrial fibrillation --rate-controlled --continue Eliquis 5mg BID Asthma/COPD --duonebs TID scheduled --wheezing today, start solumedrol 40mg q8h Hyperlipidemia Non-obstructive CAD --continue Lipitor CKD --Cr 0.8 Anemia --h/h stable --continue ferrous sulfate --bowel regimen Skin cancer --no acute issues Hemorrhoids --no further episodes of BRBPR since prior to admission Diarrhea --send c. diff, stool cx LFGNB UTI --continue empiric ceftriaxone (day #2) --culture pending speciation IDDM --Novolog sliding scale coverage Hypokalemia --repleted Hypomagnesemia --repleted FEN Fluids: PO intake adequate Electrolytes: replete as indicated Nutrition: low sodium, diabetic DVT prophylaxis: on Eliquis Physical therapy Dispo: continues to require inpatient care. Full code. Visit type - Emergency Visit Emergency Visit: Yes ED Registration Date: 09/06/17 Care time: The patient presented to the Emergency Department on the above date and was hospitalized for further evaluation of their emergent condition. - New Patient This patient is new to me today: No - Critical Care Critical Care patient: No
[2017-09-08] MEDS ORDERED: DEXTROSE 5%-WATER - 50 ML IVPB ONE ×2 (11:35→11:48)
[2017-09-08] MEDS ORDERED: cefTRIAXone SODIUM 1 GM VIAL ONE ×2 (11:35→11:48)
[2017-09-08] MEDS: APIXABAN 5 MG TABLET PO SCH ×2 (11:44→21:51)
[2017-09-08] MEDS: LISINOPRIL 20 MG TABLET (FP) PO SCH (11:44)
[2017-09-08] MEDS: PANTOPRAZOLE 40 MG TABLET (FP) PO SCH (11:44)
[2017-09-08] MEDS: POTASSIUM CHLORIDE TABS 20 MEQ TABLET.ER (FP) PO SCH ×3 (11:44→21:57)
[2017-09-08] MEDS: LABETALOL HCL 200 MG TABLET (FP) PO SCH ×2 (11:44→21:53)
[2017-09-08] MEDS: amLODIPine BESYLATE 5 MG TABLET (FP) PO SCH (11:45)
[2017-09-08] MEDS: POLYETHYLENE GLYCOL 3350 119 GM BTL PO SCH ×2 (11:45→21:52)
[2017-09-08] MEDS: methylPREDNISolone NA SUCC 40 MG/1 ML VIAL IVPUSH SCH ×2 (11:46→17:50)
[2017-09-08] MEDS ORDERED: MAGNESIUM SULF 50% (8.12 MEQ/2 ML-1 GM VIAL) ONE (11:48)
[2017-09-08] MEDS: CEFTRIAXONE 1 GM in DEXTROSE 5%-WATER - 50 ML IVPB SCH (11:49)
[2017-09-08] MEDS ORDERED: INSULIN (NOVOLOG) ASPART 100 UNITS/ML 10ML VIAL ONE (18:01)
[2017-09-08] MEDS: DOCUSATE SODIUM 100 MG CAPSULE (FP) PO SCH (21:51)
[2017-09-08] MEDS: ATORVASTATIN CA 20 MG TABLET (FP) PO SCH (21:52)
[2017-09-08] MEDS ORDERED: ACETAMINOPHEN 325 MG TABLET (FP) PO PRN (22:38)
[2017-09-09] MEDS: methylPREDNISolone NA SUCC 40 MG/1 ML VIAL IVPUSH SCH ×3 (01:52→17:53)
[2017-09-09] MEDS: FUROSEMIDE 40 MG/4 ML INJECTABLE VIAL IVPUSH SCH ×2 (05:33→13:49)
[2017-09-09] MEDS: INSULIN SLIDING SCALE (NOVOLOG) 1 VIAL SQ SCH ×4 (06:19→22:37)
[2017-09-09] MEDS: ALBUTEROL SO4 2.5/IPRATROPIUM 0.5 INH SOL 3 ML VIAL.NEB. NEB SCH ×3 (07:40→20:17)
[2017-09-09] MEDS: amLODIPine BESYLATE 10 MG TABLET (FP) PO SCH ×2 (09:00→10:00)
[2017-09-09 09:07] LABS: BASO % 0.3 % (0-2.0); HEMOGLOBIN 9.4 GM/dL (10.7-15.3); LYMPH % 5.8 % (8-40); MCH 28.3 pg (25.7-33.7); MCHC 33.5 g/dl (32.0-36.0); MEAN CELL VOLUME 84.6 fl (80-96); MEAN PLT VOLUME 8.8 fl (7.5-11.1); MONO % 3.2 % (3.8-10.2); NEUT % 90.7 % (42.8-82.8); PLATELET COUNT 251 K/MM3 (134-434); RBC 3.31 M/mm3 (3.60-5.2); RDW 16.4 % (11.6-15.6); WHITE BLOOD COUNT 6.4 K/mm3 (4.0-10.0)
[2017-09-09 09:38] LABS: ANION GAP 9 (8-16); BLOOD UREA NITROGEN 15 mg/dL (7-18); CALCIUM 8.6 mg/dL (8.5-10.1); CHLORIDE 103 mmol/L (98-107); CO2 29 mmol/L (21-32); MAGNESIUM 2.1 mg/dL (1.8-2.4); POTASSIUM 4.8 mmol/L (3.5-5.1); SGOT/AST 9 U/L (15-37); SGPT/ALT 10 U/L (12-78); SODIUM 141 mmol/L (136-145)
[2017-09-09 09:40] LABS: ALK PHOS 67 U/L (45-117); BILIRUBIN,TOTAL 0.3 mg/dL (0.2-1.0); CREATININE 1.1 mg/dL (0.55-1.02); GLUCOSE,RANDOM 296 mg/dL (74-106); TOT PROT 6.2 g/dl (6.4-8.2)
[2017-09-09] MEDS ORDERED: cefTRIAXone SODIUM 1 GM VIAL ONE (10:09)
[2017-09-09] MEDS ORDERED: DEXTROSE 5%-WATER - 50 ML IVPB ONE (10:09)
[2017-09-09] MEDS: LABETALOL HCL 200 MG TABLET (FP) PO SCH ×2 (10:18→22:37)
[2017-09-09] MEDS: APIXABAN 5 MG TABLET PO SCH ×2 (10:20→22:37)
[2017-09-09] MEDS: LISINOPRIL 20 MG TABLET (FP) PO SCH (10:20)
[2017-09-09] MEDS: CEFTRIAXONE 1 GM in DEXTROSE 5%-WATER - 50 ML IVPB SCH (10:21)
[2017-09-09] MEDS: PANTOPRAZOLE 40 MG TABLET (FP) PO SCH (10:21)
[2017-09-09] MEDS ORDERED: INSULIN (NOVOLOG) ASPART 100 UNITS/ML 10ML VIAL ONE (10:42)
[2017-09-09] MEDS: POLYETHYLENE GLYCOL 3350 119 GM BTL PO SCH ×2 (11:00→22:39)
--- NOTE | 2017-09-09 11:53 | PN ---
Physical Exam: SUBJECTIVE: Patient seen and examined at bedside. Tearful that Dr. Ravi will not be seeing her in the hospital and that her children don't come to visit. Daughter left message patient is on Zolofr at home which was not on home med list. Stat dose ordered. Patient advises she has home O2 setup. Patient states breathing is much better. OBJECTIVE: Vital Signs Period Temp Pulse Resp BP Sys/Mo Pulse Ox Last 24 Hr 97.6 F-98.3 F 68-84 18-20 107-195/64-85 96 GENERAL: The patient is awake, alert, and fully oriented. Tearful, sad. LUNGS: Better air movement in all lung chin, bibasilar crackles, no wheezing today; SpO2 97% on 2L HEART: Regular rate and rhythm, S1, S2 ABDOMEN: Soft, nontender, nondistended, normoactive bowel sounds, no guarding, no rebound EXTREMITIES: 2+ pulses, warm, well-perfused, trace edema NEUROLOGICAL: Cranial nerves II through XII grossly intact. Normal speech Laboratory Results - last 24 hr 09/08/17 09/08/17 09/08/17 11:38 17:05 21:43 WBC RBC Hgb Hct MCV MCH MCHC RDW Plt Count MPV Neutrophils % Lymphocytes % Monocytes % Eosinophils % Basophils % Sodium Potassium Chloride Carbon Dioxide Anion Gap BUN Creatinine Creat Clearance w eGFR POC Glucometer 163 233 276 Random Glucose Calcium Magnesium Total Bilirubin AST ALT Alkaline Phosphatase Total Protein Albumin 09/09/17 09/09/17 09/09/17 05:41 08:15 08:15 WBC 6.4 RBC 3.31 L Hgb 9.4 L Hct 28.0 L MCV 84.6 MCH 28.3 MCHC 33.5 RDW 16.4 H Plt Count 251 MPV 8.8 Neutrophils % 90.7 H D Lymphocytes % 5.8 L D Monocytes % 3.2 L Eosinophils % 0.0 D Basophils % 0.3 Sodium 141 Potassium 4.8 Chloride 103 Carbon Dioxide 29 Anion Gap 9 BUN 15 Creatinine 1.1 H Creat Clearance w eGFR 47.55 POC Glucometer 289 Random Glucose 296 H Calcium 8.6 Magnesium 2.1 Total Bilirubin 0.3 AST 9 L ALT 10 L Alkaline Phosphatase 67 Total Protein 6.2 L Albumin 3.0 L Active Medications Generic Name Dose Route Start Last Admin Trade Name Freq PRN Reason Stop Dose Admin Acetaminophen 650 mg 09/08/17 22:38 09/08/17 22:49 Tylenol - PO 650 mg Q6H PRN Administration PAIN LEVEL 6-10 Albuterol/Ipratropium 1 amp 09/07/17 20:00 09/09/17 07:40 Duoneb - NEB 1 amp RTID PK Administration Amlodipine Besylate 10 mg 09/09/17 09:00 09/09/17 09:00 Norvasc - PO 10 mg DAILY PK Administration Apixaban 5 mg 09/06/17 22:00 09/09/17 10:20 Eliquis - PO 5 mg BID PK Administration Atorvastatin Calcium 20 mg 09/06/17 22:00 09/08/17 21:52 Lipitor - PO 20 mg HS PK Administration Docusate Sodium 300 mg 09/06/17 22:00 09/08/17 21:51 Colace - PO Not Given HS PK Furosemide 40 mg 09/09/17 14:00 Lasix Injection - IVPUSH BIDLASIX PK Ceftriaxone Sodium 1 gm/ 50 mls @ 100 mls/hr 09/07/17 10:00 09/09/17 10:21 Dextrose IVPB 100 mls/hr DAILY PK Administration Meropenem 1 gm/ Dextrose 100 mls @ 100 mls/hr 09/09/17 12:00 IVPB Q8H-IV PK Protocol Insulin Aspart 1 vial 09/06/17 16:30 09/09/17 06:19 Novolog Vial Sliding Scale - SQ 6 units ACHS PK Administration Protocol Labetalol HCl 300 mg 09/09/17 10:00 09/09/17 10:18 Normodyne - PO 300 mg BID PK Administration Lisinopril 40 mg 09/07/17 10:00 09/09/17 10:20 Prinivil PO 40 mg DAILY PK Administration Methylprednisolone Sodium Succinate 40 mg 09/08/17 11:30 09/09/17 10:21 Solu-Medrol - IVPUSH 40 mg Q8H-IV PK Administration Pantoprazole Sodium 40 mg 09/07/17 10:00 09/09/17 10:21 Protonix - PO 40 mg DAILY PK Administration Polyethylene Glycol 17 gm 09/06/17 22:00 09/08/17 21:52 Miralax (For Daily Use) - PO Not Given BID PK Sertraline HCl 50 mg 09/09/17 12:00 Zoloft - PO DAILY PK ASSESSMENT/PLAN 81 year-old female with a PMH significant for HTN, HLD, non-obstructive CAD, diastolic heart failure, significant cardiac valvular pathology, pulmonary HTN, persistent atrial fibrillation on Eliquis, asthma/COPD, IDDM, CKD, anemia, skin cancer, 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 Acute on chronic diastolic heart failure --lower extremity edema, congestive changes on CXR, BNP 6672 --Lasix IV 40mg BID; down 4.6kg in past 48 hours --last echo in EMR from 04/2014, repeat today --strict I&Os, daily weights Hypertension --continue lisinopril 40mg, increase labetolol to 300mg BID, increase amlodipine to 10mg Persistent atrial fibrillation --rate-controlled --continue Eliquis 5mg BID Asthma/COPD --duonebs TID scheduled --continue Solumedrol 40mg q8h Hyperlipidemia Non-obstructive CAD --continue Lipitor CKD --Cr 1.1, mild bump; continue to monitor; will decrease lasix if necessary Anemia --h/h stable --continue ferrous sulfate --bowel regimen Skin cancer --no acute issues Hemorrhoids --no further episodes of BRBPR since prior to admission Diarrhea --send c. diff, stool cx E.coli ESBL UTI --afebrile, no leukocytosis --had been on multiple PO antibiotics prior to admission, don't know which ones --start meropenem (day #1) IDDM --Novolog sliding scale coverage Hypokalemia --resolved Hypomagnesemia --resolved FEN Fluids: PO intake adequate Electrolytes: replete as indicated Nutrition: low sodium, diabetic DVT prophylaxis: on Eliquis Physical therapy Dispo: continues to require inpatient care. Full code. Visit type - Emergency Visit Emergency Visit: Yes ED Registration Date: 09/06/17 Care time: The patient presented to the Emergency Department on the above date and was hospitalized for further evaluation of their emergent condition. - New Patient This patient is new to me today: No - Critical Care Critical Care patient: No
[2017-09-09] MEDS: SERTRALINE HCL 50 MG TABLET (FP) PO SCH (12:00)
[2017-09-09] MEDS ORDERED: MEROPENEM 1 GM in DEXTROSE 5%-WATER - 100 ML IVPB ONE (12:15)
--- NOTE | 2017-09-09 14:14 | EKG ---
Test Reason : Blood Pressure : / mmHG Vent. Rate : 068 BPM Atrial Rate : 070 BPM P-R Int : 000 ms QRS Dur : 094 ms QT Int : 392 ms P-R-T Axes : 000 -56 062 degrees QTc Int : 416 ms ATRIAL FIBRILLATION LEFT AXIS DEVIATION SEPTAL INFARCT (CITED ON OR BEFORE 15-JUN-2017) ABNORMAL ECG WHEN COMPARED WITH ECG OF 15-JUN-2017 12:00, COMPARED TO EKG NO SIGNIFICANT CHANGE IS FOUND Confirmed by YULI ANGEL MD ([id number]) on 09/09/2017 2:13:56 PM Referred By: Confirmed By:YULI ANGEL MD
[2017-09-09] MEDS ORDERED: MEROPENEM 1 GM in DEXTROSE 5%-WATER - 100 ML IVPB SCH (18:00)
[2017-09-09] MEDS: DOCUSATE SODIUM 100 MG CAPSULE (FP) PO SCH (22:36)
[2017-09-09] MEDS: ATORVASTATIN CA 20 MG TABLET (FP) PO SCH (22:36)
[2017-09-10] MEDS: methylPREDNISolone NA SUCC 40 MG/1 ML VIAL IVPUSH SCH ×4 (03:01→18:33)
[2017-09-10] MEDS: INSULIN SLIDING SCALE (NOVOLOG) 1 VIAL SQ SCH ×4 (06:07→22:06)
[2017-09-10] MEDS: FUROSEMIDE 40 MG/4 ML INJECTABLE VIAL IVPUSH SCH ×2 (06:07→13:12)
[2017-09-10] MEDS: ALBUTEROL SO4 2.5/IPRATROPIUM 0.5 INH SOL 3 ML VIAL.NEB. NEB SCH ×3 (08:10→20:10)
[2017-09-10] MEDS ORDERED: PT OWN MED DRAWER 7, Y5N ONE (09:45)
[2017-09-10] MEDS: amLODIPine BESYLATE 10 MG TABLET (FP) PO SCH (09:49)
[2017-09-10] MEDS: PANTOPRAZOLE 40 MG TABLET (FP) PO SCH (09:50)
[2017-09-10] MEDS: SERTRALINE HCL 50 MG TABLET (FP) PO SCH (09:50)
[2017-09-10] MEDS: ERTAPENEM SODIUM 1 GM in SODIUM CHLORIDE 50 ML IVPB SCH (09:50)
[2017-09-10] MEDS: POLYETHYLENE GLYCOL 3350 119 GM BTL PO SCH ×2 (09:50→22:06)
[2017-09-10] MEDS: LABETALOL HCL 200 MG TABLET (FP) PO SCH ×2 (09:50→22:05)
[2017-09-10] MEDS: APIXABAN 5 MG TABLET PO SCH (09:50)
[2017-09-10] MEDS: LISINOPRIL 20 MG TABLET (FP) PO SCH (09:50)
[2017-09-10] MEDS ORDERED: FUROSEMIDE 40 MG/4 ML INJECTABLE VIAL IVPUSH SCH (10:00)
[2017-09-10 11:06] LABS: BASO % 0.4 % (0-2.0); HEMATOCRIT 29.5 % (32.4-45.2); HEMOGLOBIN 9.6 GM/dL (10.7-15.3); LYMPH % 3.4 % (8-40); MCH 27.8 pg (25.7-33.7); MCHC 32.6 g/dl (32.0-36.0); MEAN CELL VOLUME 85.4 fl (80-96); MEAN PLT VOLUME 8.6 fl (7.5-11.1); MONO % 2.6 % (3.8-10.2); NEUT % 93.6 % (42.8-82.8); PLATELET COUNT 295 K/MM3 (134-434); RBC 3.45 M/mm3 (3.60-5.2); RDW 16.6 % (11.6-15.6); WHITE BLOOD COUNT 11.6 K/mm3 (4.0-10.0)
[2017-09-10 11:27] LABS: ALBUMIN 3.3 g/dl (3.4-5.0); ALK PHOS 67 U/L (45-117); ANION GAP 10 (8-16); BILIRUBIN,TOTAL 0.4 mg/dL (0.2-1.0); BLOOD UREA NITROGEN 24 mg/dL (7-18); CALCIUM 8.8 mg/dL (8.5-10.1); CHLORIDE 98 mmol/L (98-107); CO2 32 mmol/L (21-32); CREATININE 1.1 mg/dL (0.55-1.02); GLUCOSE,RANDOM 297 mg/dL (74-106); MAGNESIUM 2.1 mg/dL (1.8-2.4); POTASSIUM 4.6 mmol/L (3.5-5.1); SGOT/AST 14 U/L (15-37); SGPT/ALT 15 U/L (12-78); SODIUM 140 mmol/L (136-145); TOT PROT 6.5 g/dl (6.4-8.2)
--- NOTE | 2017-09-10 16:44 | PN ---
Physical Exam: SUBJECTIVE: Patient seen and examined oob to chair. Feeling much better. OBJECTIVE: Vital Signs Period Temp Pulse Resp BP Sys/Mo Pulse Ox Last 24 Hr 97.6 F-98.9 F 72-86 20-20 150-156/57-74 95-97 GENERAL: The patient is awake, alert, and fully oriented. LUNGS: CTA HEART: Regular rate and rhythm, S1, S2 ABDOMEN: Soft, nontender, nondistended, normoactive bowel sounds, no guarding, no rebound EXTREMITIES: 2+ pulses, warm, well-perfused, trace edema, much improved NEUROLOGICAL: Cranial nerves II through XII grossly intact. Normal speech Laboratory Results - last 24 hr 09/09/17 09/09/17 09/10/17 17:39 22:29 06:02 WBC RBC Hgb Hct MCV MCH MCHC RDW Plt Count MPV Neutrophils % Lymphocytes % Monocytes % Eosinophils % Basophils % Sodium Potassium Chloride Carbon Dioxide Anion Gap BUN Creatinine Creat Clearance w eGFR POC Glucometer 291 208 228 Random Glucose Calcium Magnesium Total Bilirubin AST ALT Alkaline Phosphatase Total Protein Albumin 09/10/17 09/10/17 09/10/17 10:45 10:45 11:25 WBC 11.6 H D RBC 3.45 L Hgb 9.6 L Hct 29.5 L MCV 85.4 MCH 27.8 MCHC 32.6 RDW 16.6 H Plt Count 295 MPV 8.6 Neutrophils % 93.6 H Lymphocytes % 3.4 L D Monocytes % 2.6 L Eosinophils % 0.0 Basophils % 0.4 Sodium 140 Potassium 4.6 Chloride 98 Carbon Dioxide 32 Anion Gap 10 BUN 24 H Creatinine 1.1 H Creat Clearance w eGFR 47.55 POC Glucometer 323 Random Glucose 297 H Calcium 8.8 Magnesium 2.1 Total Bilirubin 0.4 D AST 14 L ALT 15 Alkaline Phosphatase 67 Total Protein 6.5 Albumin 3.3 L Active Medications Generic Name Dose Route Start Last Admin Trade Name Freq PRN Reason Stop Dose Admin Acetaminophen 650 mg 09/08/17 22:38 09/08/17 22:49 Tylenol - PO 650 mg Q6H PRN Administration PAIN LEVEL 6-10 Albuterol/Ipratropium 1 amp 09/07/17 20:00 09/10/17 13:15 Duoneb - NEB 1 amp RTID PK Administration Amlodipine Besylate 10 mg 09/09/17 09:00 09/10/17 09:49 Norvasc - PO 10 mg DAILY PK Administration Apixaban 5 mg 09/06/17 22:00 09/10/17 09:50 Eliquis - PO 5 mg BID PK Administration Atorvastatin Calcium 20 mg 09/06/17 22:00 09/09/17 22:36 Lipitor - PO 20 mg HS PK Administration Docusate Sodium 300 mg 09/06/17 22:00 09/09/17 22:36 Colace - PO 300 mg HS PK Administration Furosemide 40 mg 09/09/17 14:00 09/10/17 13:12 Lasix Injection - IVPUSH 40 mg BIDLASIX PK Administration Ertapenem 1 gm/ Sodium 50 mls @ 100 mls/hr 09/10/17 10:00 09/10/17 09:50 Chloride IVPB 100 mls/hr DAILY PK Administration Protocol Insulin Aspart 1 vial 09/06/17 16:30 09/10/17 16:41 Novolog Vial Sliding Scale - SQ 6 units ACHS PK Administration Protocol Labetalol HCl 300 mg 09/09/17 10:00 09/10/17 09:50 Normodyne - PO 300 mg BID PK Administration Lisinopril 40 mg 09/07/17 10:00 09/10/17 09:50 Prinivil PO 40 mg DAILY PK Administration Methylprednisolone Sodium Succinate 40 mg 09/08/17 11:30 09/10/17 09:50 Solu-Medrol - IVPUSH 40 mg Q8H-IV PK Administration Pantoprazole Sodium 40 mg 09/07/17 10:00 09/10/17 09:50 Protonix - PO 40 mg DAILY PK Administration Polyethylene Glycol 17 gm 09/06/17 22:00 09/10/17 09:50 Miralax (For Daily Use) - PO 17 grams BID PK Administration Sertraline HCl 50 mg 09/09/17 12:00 09/10/17 09:50 Zoloft - PO 50 mg DAILY PK Administration ASSESSMENT/PLAN 81 year-old female with a PMH significant for HTN, HLD, non-obstructive CAD, diastolic heart failure, significant cardiac valvular pathology, pulmonary HTN, persistent atrial fibrillation on Eliquis, asthma/COPD, IDDM, CKD, anemia, skin cancer, 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 Acute on chronic diastolic heart failure --lower extremity edema much improved --down 5.2kg; switch to PO Lasix 40mg BID --last echo in EMR from 04/2014, repeat pending dictation --strict I&Os, daily weights Hypertension --BP improved on increased labetolol, increased amlodipine, and lisinopril; continue current dosing Persistent atrial fibrillation --rate-controlled --spoke with daughter who insists patient should be on Eliquis 2.5mg as that is what has been prescribed in past by PCP; lowered dose to 2.5mg BID Asthma/COPD exacerbation --duonebs TID scheduled --taper Solumedrol 40mg q12 Hyperlipidemia Non-obstructive CAD --continue Lipitor CKD --Cr 1.1, start lower dose lasix tomorrow Anemia --h/h stable --continue ferrous sulfate --bowel regimen Skin cancer --no acute issues Hemorrhoids --no further episodes of BRBPR since prior to admission Diarrhea, resolved --c. diff negative E.coli ESBL UTI --afebrile, slight bump in WBC 11.6 on steroids --had been on multiple PO antibiotics prior to admission --continue ertapenem (day #2) IDDM --Novolog sliding scale coverage Hypokalemia --resolved Hypomagnesemia --resolved FEN Fluids: PO intake adequate Electrolytes: replete as indicated Nutrition: low sodium, diabetic DVT prophylaxis: on Eliquis Physical therapy Dispo: continues to require inpatient care. Full code. Visit type - Emergency Visit Emergency Visit: Yes ED Registration Date: 09/06/17 Care time: The patient presented to the Emergency Department on the above date and was hospitalized for further evaluation of their emergent condition. - New Patient This patient is new to me today: No - Critical Care Critical Care patient: No
[2017-09-10] MEDS: DOCUSATE SODIUM 100 MG CAPSULE (FP) PO SCH (22:05)
[2017-09-10] MEDS: ATORVASTATIN CA 20 MG TABLET (FP) PO SCH (22:05)
[2017-09-11] MEDS: INSULIN SLIDING SCALE (NOVOLOG) 1 VIAL SQ SCH ×4 (06:36→22:31)
[2017-09-11] MEDS: FUROSEMIDE 40 MG TABLET (FP) PO SCH ×2 (06:36→13:55)
[2017-09-11] MEDS: methylPREDNISolone NA SUCC 40 MG/1 ML VIAL IVPUSH SCH ×2 (06:36→17:52)
[2017-09-11] MEDS: ALBUTEROL SO4 2.5/IPRATROPIUM 0.5 INH SOL 3 ML VIAL.NEB. NEB SCH ×3 (07:35→20:27)
[2017-09-11] MEDS: ERTAPENEM SODIUM 1 GM in SODIUM CHLORIDE 50 ML IVPB SCH (09:53)
[2017-09-11] MEDS: LISINOPRIL 20 MG TABLET (FP) PO SCH (09:53)
[2017-09-11] MEDS: POLYETHYLENE GLYCOL 3350 119 GM BTL PO SCH ×2 (09:53→22:31)
[2017-09-11] MEDS: amLODIPine BESYLATE 10 MG TABLET (FP) PO SCH (09:53)
[2017-09-11] MEDS: PANTOPRAZOLE 40 MG TABLET (FP) PO SCH (09:54)
[2017-09-11] MEDS: LABETALOL HCL 200 MG TABLET (FP) PO SCH ×2 (09:54→22:30)
[2017-09-11] MEDS: SERTRALINE HCL 50 MG TABLET (FP) PO SCH (09:54)
[2017-09-11] MEDS ORDERED: PT OWN MED DRAWER 7, Y5N ONE (09:56)
[2017-09-11] MEDS ORDERED: APIXABAN 2.5 MG TABLET PO SCH (10:00)
--- NOTE | 2017-09-11 10:59 | CON.CARD ---
Consult Consult Specialty:: Cardiology Referred by:: Hospitalist Medicine Reason for Consultation:: Diastolic dysfunction - History of Present Illness Chief Complaint: Lower extremity edema History of Present Illness: Patient is an 81 year old female with underlying history of CAD (non-obstructive ), angina pectoris, diastolic LV dysfunction with history of congestive heart failure, mitral valve disease with mitral valve regurgitations, aortic valve disease with moderate aortic valve stenosis, tricuspid valve disease with tricuspid valve regurgitation and pulmonary hypertension, persistent atrial fibrillation on Xarelto, HTN/HCVD, type 2 diabetes mellitus, hypercholesterolemia, COPD, anemia, and right hip replacement admitted for UTI, diastolic failure with bilateral lower extremity edema and hypertensive urgency. Allergies: NKA Past surgical history: Rip hip replacement in 2007 and January 2017 Social history: No reported alcohol, cigarette, or drug use. PCP: Dr. Pompa - History Source History Provided By: Patient Limitations to Obtaining History: No Limitations - Past Medical History Cardio/Vascular: Yes: AFIB, Aortic Stenosis, CAD, CHF, HTN, Hyperlipdemia, Mitral Insufficiency, Murmur, Pulmonary Hypertension Pulmonary: Yes: COPD ...: No Musculoskeletal: Yes: Osteoarthritis (had hip and knee replacement, still with some healing problems ), Other Endocrine: Yes: Diabetes Mellitus - Past Surgical History Past Surgical History: Yes: Joint Replacement - Alcohol/Substance Use Hx Alcohol Use: No History of Substance Use: reports: None - Smoking History Smoking history: Never smoked Have you smoked in the past 12 months: No Aproximately how many cigarettes per day: 0 If you are a former smoker, when did you quit?: "when I was very young" Home Medications - Allergies Allergies/Adverse Reactions: Allergies Allergy/AdvReac Type Severity Reaction Status Date / Time ciprofloxacin [From Cipro] Allergy Verified 09/06/17 11:28 ciprofloxacin HCl Allergy Verified 09/06/17 11:28 [From Cipro] - Home Medications Home Medications: Ambulatory Orders Ferrous Sulfate 325 mg PO BID 12/29/16 Lisinopril [Zestril] 40 mg PO DAILY 12/29/16 Potassium Chloride 20 meq PO DAILY 12/29/16 Simvastatin 40 mg PO DAILY 12/29/16 Albuterol Sulfate [Proair Hfa] 2 inh IH Q4HWA 06/15/17 Labetalol HCl [Normodyne -] 200 mg PO BID 06/15/17 Repaglinide [Prandin -] 1 mg PO TID 06/15/17 Albuterol 2.5/Ipratropium 0.5 [Duoneb -] 1 amp NEB Q6H PRN amp 06/19/17 Amlodipine Besylate [Norvasc -] 5 mg PO DAILY tablet 06/19/17 Apixaban [Eliquis -] 2.5 mg PO BID 09/06/17 Furosemide [Lasix -] 80 mg PO DAILY 09/06/17 Insulin Glargine,Hum.rec.anlog [Lantus] 15 unit SQ DAILY 09/06/17 Omeprazole Magnesium [Prilosec Otc] 40 mg PO DAILY 09/06/17 Sertraline HCl [Zoloft -] 50 mg PO DAILY 09/09/17 Family Disease History - Family Disease History Family Disease History: Other: Daughter (alive and well) Review of Systems - Review of Systems Cardiovascular: reports: Edema, Shortness of Breath Genitourinary: reports: Burning Vital Signs: Vital Signs Temperature 97.9 F 09/11/17 10:00 Pulse Rate 75 09/11/17 10:00 Respiratory Rate 18 09/11/17 10:00 Blood Pressure 149/73 09/11/17 10:00 O2 Sat by Pulse Oximetry (%) 97 09/10/17 22:15 Constitutional: Yes: No Distress, Calm Neck: Yes: Supple Respiratory: Yes: Regular, Diminished, On Nasal O2 Gastrointestinal: Yes: Normal Bowel Sounds, Soft, Abdomen, Obese Cardiovascular: Yes: Pulse Irregular JVD: No Carotid Bruit: No Heart Sounds: Yes: S1, S2 Murmur: Yes: Systolic Murmur, Grade 2 Edema: No - Other Data Labs, Other Data: CBC, BMP 09/10/17 10:45 09/10/17 10:45 INR, PTT INR 1.84 (0.82-1.09) H 09/07/17 06:00 Afib @ 68 Ejection Fraction %: LVEF > or = 40 % Imaging - Results Chest X-ray: Report Reviewed (Mild CHF with min pleural effusions) Problem List - Problems (1) Acute on chronic diastolic (congestive) heart failure Code(s): I50.33 - ACUTE ON CHRONIC DIASTOLIC (CONGESTIVE) HEART FAILURE (2) Ksiuf-yw-sxtryew kidney injury Code(s): N17.9 - ACUTE KIDNEY FAILURE, UNSPECIFIED; N18.9 - CHRONIC KIDNEY DISEASE, UNSPECIFIED Qualifiers: Acute renal failure type: unspecified Chronic kidney disease stage: stage 2 (mild) Qualified Code(s): N17.9 - Acute kidney failure, unspecified; N18.2 - Chronic kidney disease, stage 2 (mild); N18.2 - Chronic kidney disease, stage 2 (mild) (3) Anemia Code(s): D64.9 - ANEMIA, UNSPECIFIED Qualifiers: Anemia type: unspecified type Qualified Code(s): D64.9 - Anemia, unspecified (4) HTN (hypertension) Code(s): I10 - ESSENTIAL (PRIMARY) HYPERTENSION Qualifiers: Hypertension type: essential hypertension Qualified Code(s): I10 - Essential (primary) hypertension (5) Aortic valve stenosis Code(s): I35.0 - NONRHEUMATIC AORTIC (VALVE) STENOSIS Qualifiers: Cardiac valve disease etiology: nonrheumatic Qualified Code(s): I35.0 - Nonrheumatic aortic (valve) stenosis (6) Atrial fibrillation Code(s): I48.91 - UNSPECIFIED ATRIAL FIBRILLATION Qualifiers: Atrial fibrillation type: persistent Qualified Code(s): I48.1 - Persistent atrial fibrillation (7) COPD (chronic obstructive pulmonary disease) Code(s): J44.9 - CHRONIC OBSTRUCTIVE PULMONARY DISEASE, UNSPECIFIED Qualifiers: COPD type: unspecified COPD Qualified Code(s): J44.9 - Chronic obstructive pulmonary disease, unspecified (8) Diabetes mellitus Code(s): E11.9 - TYPE 2 DIABETES MELLITUS WITHOUT COMPLICATIONS Qualifiers: Diabetes mellitus type: type 2 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 use: without detention use Diabetes mellitus complication status: without complication Qualified Code(s): E11.9 - Type 2 diabetes mellitus without complications (9) Hypercholesterolemia Code(s): E78.00 - PURE HYPERCHOLESTEROLEMIA, UNSPECIFIED (10) Mitral valve regurgitation Code(s): I34.0 - NONRHEUMATIC MITRAL (VALVE) INSUFFICIENCY Qualifiers: Cardiac valve disease etiology: nonrheumatic Qualified Code(s): I34.0 - Nonrheumatic mitral (valve) insufficiency (11) Tricuspid valve regurgitation Code(s): I07.1 - RHEUMATIC TRICUSPID INSUFFICIENCY Qualifiers: Cardiac valve disease etiology: nonrheumatic Qualified Code(s): I36.1 - Nonrheumatic tricuspid (valve) insufficiency Assessment/Plan 09/10/2017 Echo: Normal biventricular size and fxn, mild cLVH, mod TRINI, mod MG 25 mmHg CHARI 0.79 cm^2, mild MR, TR, AR 1. Acute on chronic diastolic LV dysfunction with class I-II NYHA classification LV failure, resolved 2. Chronic obstructive airway disease exacerbation, resolved 3. CAD non-obstructive CAD history of demand ischemic injury angina pectoris 4. Persistent atrial fibrillation with [id number] score of 7 on chronic A/C with NOAC's/Eliquis 5. Mitral valve regurgitation 6. Aortic valve stenosis (moderate) 7. Tricuspid valve regurgitation 8. Pulmonary HTN 9. Diabetes mellitus 10. Hypercholesterolemia 12. Acute on CKD 13. Anemia 14. E. coli UTI on Meropenem D#3 15. s/p revision right OFE/periprosthetic fracture 01/2017 16. HTN PLAN: 1. Continue Labetalol 200 bid 2. Continue Amlodipine 10 qd 3. Continue Prinivil 40 qd 4. Continue Lipitor 20 qhs 5. Resumed Lasix 40 po bid 6. Continue Eliquis 5 bid with close monitoring of CBC 7. PT->SNF 8. BD, O2 as needed, rapid steroid taper, complete IV abx course 9. Thank you for consultative opportunity
--- NOTE | 2017-09-11 13:35 | PN ---
Physical Exam: SUBJECTIVE: Patient seen and examined. She has some mild posterior left knee pain, wants to walk with pt OBJECTIVE: Vital Signs Period Temp Pulse Resp BP Sys/Mo Pulse Ox Last 24 Hr 97.9 F-98.7 F 68-79 18-20 145-155/57-78 97 PE Neuro: alert, awake, cn 2-12intact Pulm: basilar rales CV: s1 s2 irregular rate + 2/6 murmur Abd: obese abd, s nt nd + bs Ext: +1 le edema Laboratory Results - last 24 hr 09/10/17 09/10/17 09/11/17 16:15 21:58 06:35 POC Glucometer 253 292 227 09/11/17 11:29 POC Glucometer 323 Active Medications Generic Name Dose Route Start Last Admin Trade Name Freq PRN Reason Stop Dose Admin Acetaminophen 650 mg 09/08/17 22:38 09/08/17 22:49 Tylenol - PO 650 mg Q6H PRN Administration PAIN LEVEL 6-10 Albuterol/Ipratropium 1 amp 09/07/17 20:00 09/11/17 07:35 Duoneb - NEB 1 amp RTID PK Administration Amlodipine Besylate 10 mg 09/09/17 09:00 09/11/17 09:53 Norvasc - PO 10 mg DAILY PK Administration Apixaban 2.5 mg 09/11/17 10:00 09/11/17 09:57 Eliquis - PO 2.5 mg BID PK Administration Atorvastatin Calcium 20 mg 09/06/17 22:00 09/10/17 22:05 Lipitor - PO 20 mg HS PK Administration Docusate Sodium 300 mg 09/06/17 22:00 09/10/17 22:05 Colace - PO Not Given HS PK Furosemide 40 mg 09/11/17 06:00 09/11/17 06:36 Lasix - PO 40 mg BID@0600,1400 PK Administration Ertapenem 1 gm/ Sodium 50 mls @ 100 mls/hr 09/10/17 10:00 09/11/17 09:53 Chloride IVPB 100 mls/hr DAILY PK Administration Protocol Insulin Aspart 1 vial 09/06/17 16:30 09/11/17 12:13 Novolog Vial Sliding Scale - SQ 8 units ACHS PK Administration Protocol Labetalol HCl 300 mg 09/09/17 10:00 09/11/17 09:54 Normodyne - PO 300 mg BID PK Administration Lisinopril 40 mg 09/07/17 10:00 09/11/17 09:53 Prinivil PO 40 mg DAILY PK Administration Methylprednisolone Sodium Succinate 40 mg 09/10/17 18:00 09/11/17 06:36 Solu-Medrol - IVPUSH 40 mg Q12H PK Administration Pantoprazole Sodium 40 mg 09/07/17 10:00 09/11/17 09:54 Protonix - PO 40 mg DAILY PK Administration Polyethylene Glycol 17 gm 09/06/17 22:00 09/11/17 09:53 Miralax (For Daily Use) - PO 17 grams BID PK Administration Sertraline HCl 50 mg 09/09/17 12:00 09/11/17 09:54 Zoloft - PO 50 mg DAILY PK Administration Imaging: - 09/10/2017 Echo: Normal biventricular size and fxn, mild cLVH, mod TRINI, mod MG 25 mmHg CHARI 0.79 cm^2, mild MR, TR, AR Assessment: 81 year old female with a PMH significant for HTN, HLD, non- obstructive CAD, diastolic heart failure, significant cardiac valvular pathology , pulmonary HTN, persistent atrial fibrillation on Eliquis, asthma/COPD, IDDM, CKD, anemia, skin cancer, 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 Plan: 1. Acute on chronic diastolic heart failure - Continue lasix 40mg BID 2. ESBL UTI - Ertapenem day 3 3. Hypertension - Keep increased Labetolol 300mg BID, titrate as needed - Keep increased amlodipine 10mg - Lisinopril 40mg 4. Persistent atrial fibrillation - Does not meet criteria for 2.5mg dosing, will increase to 5mg BID and d/w daughter 5. Asthma/COPD exacerbation - Solumedrol 40mg q12 - Taper to daily tomorrow - Duo nebs 6. Non-obstructive CAD - Continue Lipitor 7. CKD - Cr 1.1 8. Anemia, iron deficient - Ferrous sulfate 9. Diarrhea, resolved - C. diff negative 10. DM II - ISS, BGM ACHS 11. PPX DVT: Eliquis Physical therapy Dispo: continues to require inpatient care. Full code. Visit type - Emergency Visit Emergency Visit: Yes ED Registration Date: 09/06/17 Care time: The patient presented to the Emergency Department on the above date and was hospitalized for further evaluation of their emergent condition. - New Patient This patient is new to me today: Yes Date on this admission: 09/11/17 - Critical Care Critical Care patient: No
--- NOTE | 2017-09-11 14:50 | CON.ID ---
Consult Consult Specialty:: infectious diseases Referred by:: Mary Reason for Consultation:: esbl complicated uti - History of Present Illness History of Present Illness: 81 year-old female with a PMH significant for HTN, heart failure, atrial fibrillation on Eliquis, asthma/COPD, IDDM, skin cancer, anemia, s/p right hip replacement patient coming to the hospital for dysuria. It seems patient was treated before with multiple abx before patient was admitted and worked up and found to ahve ESBL uti which explains the cause of her ongoing symptoms currently patient is very teary and i ahve explained to her she will be alright. currently she has no medical complaints - History Source History Provided By: Patient, Medical Record Limitations to Obtaining History: Poor Historian - Past Medical History Cardio/Vascular: Yes: AFIB, Aortic Stenosis, CAD, CHF, HTN, Hyperlipdemia, Mitral Insufficiency, Murmur, Pulmonary Hypertension Pulmonary: Yes: COPD ...: No Musculoskeletal: Yes: Osteoarthritis (had hip and knee replacement, still with some healing problems ), Other Endocrine: Yes: Diabetes Mellitus - Past Surgical History Past Surgical History: Yes: Joint Replacement - Alcohol/Substance Use Hx Alcohol Use: No History of Substance Use: reports: None - Smoking History Smoking history: Never smoked Have you smoked in the past 12 months: No Aproximately how many cigarettes per day: 0 If you are a former smoker, when did you quit?: "when I was very young" Home Medications - Allergies Allergies/Adverse Reactions: Allergies Allergy/AdvReac Type Severity Reaction Status Date / Time ciprofloxacin [From Cipro] Allergy Verified 09/06/17 11:28 ciprofloxacin HCl Allergy Verified 09/06/17 11:28 [From Cipro] - Home Medications Home Medications: Ambulatory Orders Ferrous Sulfate 325 mg PO BID 12/29/16 Lisinopril [Zestril] 40 mg PO DAILY 12/29/16 Potassium Chloride 20 meq PO DAILY 12/29/16 Simvastatin 40 mg PO DAILY 12/29/16 Albuterol Sulfate [Proair Hfa] 2 inh IH Q4HWA 06/15/17 Repaglinide [Prandin -] 1 mg PO TID 06/15/17 Albuterol 2.5/Ipratropium 0.5 [Duoneb -] 1 amp NEB Q6H PRN amp 06/19/17 Amlodipine Besylate [Norvasc -] 5 mg PO DAILY tablet 06/19/17 Apixaban [Eliquis -] 2.5 mg PO BID 09/06/17 Insulin Glargine,Hum.rec.anlog [Lantus] 15 unit SQ DAILY 09/06/17 Omeprazole Magnesium [Prilosec Otc] 40 mg PO DAILY 09/06/17 Sertraline HCl [Zoloft -] 50 mg PO DAILY 09/09/17 Amlodipine Besylate [Norvasc -] 10 mg PO DAILY #30 tablet 09/12/17 Ertapenem Sodium [Invanz -] 1 gm IVPB DAILY #10 vial 09/12/17 Furosemide [Lasix -] 40 mg PO BID@0600,1400 tablet 09/12/17 Insulin Sliding Scale [Novolog Vial Sliding Scale -] 1 vial SQ ACHS units 09/12 Labetalol HCl [Normodyne -] 400 mg PO BID #60 tablet 09/12/17 Prednisone 10 mg PO ASDIR #30 tablet 09/12/17 Family Disease History - Family Disease History Family Disease History: Other: Daughter (alive and well) Review of Systems - Review of Systems Constitutional: reports: No Symptoms, Chills Cardiovascular: reports: No Symptoms Respiratory: reports: No Symptoms Gastrointestinal: reports: No Symptoms Genitourinary: reports: No Symptoms Musculoskeletal: reports: No Symptoms Integumentary: reports: No Symptoms Neurological: reports: No Symptoms Endocrine: reports: No Symptoms Hematology/Lymphatic: reports: No Symptoms Psychiatric: reports: No Symptoms Physical Exam Vital Signs: Vital Signs Temperature 98.3 F 09/11/17 14:32 Pulse Rate 73 09/11/17 14:32 Respiratory Rate 18 09/11/17 14:32 Blood Pressure 148/62 09/11/17 14:32 O2 Sat by Pulse Oximetry (%) 97 09/10/17 22:15 Constitutional: Yes: No Distress, Calm Cardiovascular: Yes: Regular Rate and Rhythm Respiratory: Yes: Regular, CTA Bilaterally Gastrointestinal: Yes: Normal Bowel Sounds, Soft Musculoskeletal: Yes: WNL Extremities: Yes: WNL Neurological: Yes: Alert, Oriented Psychiatric: Yes: Alert, Oriented Labs: CBC, BMP 09/10/17 10:45 09/10/17 10:45 Imaging - Results Chest X-ray: Report Reviewed, Image Reviewed Assessment/Plan 81 year old female with a PMH significant for HTN, HLD, non-obstructive CAD, diastolic heart failure, significant cardiac valvular pathology, pulmonary HTN, persistent atrial fibrillation on Eliquis, asthma/COPD, IDDM, CKD, anemia, skin cancer, 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 Plan: 1. Acute on chronic diastolic heart failure 2. ESBL UTI 3. Hypertension 4. atrial fibrillation 5. Asthma/COPD exacerbation 6 dm plan we will continue ertapenam continue monitoring patient will need a total of 2 weks rest as per the team
[2017-09-11] MEDS: APIXABAN 5 MG TABLET PO SCH (22:31)
[2017-09-11] MEDS: DOCUSATE SODIUM 100 MG CAPSULE (FP) PO SCH (22:31)
[2017-09-11] MEDS: ATORVASTATIN CA 20 MG TABLET (FP) PO SCH (22:31)
[2017-09-12] MEDS: methylPREDNISolone NA SUCC 40 MG/1 ML VIAL IVPUSH SCH (06:34)
[2017-09-12] MEDS: FUROSEMIDE 40 MG TABLET (FP) PO SCH ×2 (06:35→14:30)
[2017-09-12] MEDS: INSULIN SLIDING SCALE (NOVOLOG) 1 VIAL SQ SCH ×3 (06:35→17:34)
[2017-09-12] MEDS: ALBUTEROL SO4 2.5/IPRATROPIUM 0.5 INH SOL 3 ML VIAL.NEB. NEB SCH ×2 (08:19→13:00)
[2017-09-12 09:26] LABS: ANION GAP 8 (8-16); BLOOD UREA NITROGEN 32 mg/dL (7-18); CALCIUM 8.6 mg/dL (8.5-10.1); CHLORIDE 98 mmol/L (98-107); CO2 34 mmol/L (21-32); CREATININE 1.1 mg/dL (0.55-1.02); GLUCOSE,RANDOM 191 mg/dL (74-106); POTASSIUM 3.9 mmol/L (3.5-5.1); SODIUM 140 mmol/L (136-145)
[2017-09-12] MEDS ORDERED: predniSONE 20 MG TABLET (UD) PO SCH (10:00)
[2017-09-12] MEDS: amLODIPine BESYLATE 10 MG TABLET (FP) PO SCH (10:01)
[2017-09-12] MEDS: PANTOPRAZOLE 40 MG TABLET (FP) PO SCH (10:01)
[2017-09-12] MEDS: APIXABAN 5 MG TABLET PO SCH (10:01)
[2017-09-12] MEDS: POLYETHYLENE GLYCOL 3350 119 GM BTL PO SCH (10:01)
[2017-09-12] MEDS: ERTAPENEM SODIUM 1 GM in SODIUM CHLORIDE 50 ML IVPB SCH (10:01)
[2017-09-12] MEDS: LISINOPRIL 20 MG TABLET (FP) PO SCH (10:01)
[2017-09-12] MEDS: LABETALOL HCL 200 MG TABLET (FP) PO SCH (10:01)
[2017-09-12] MEDS: SERTRALINE HCL 50 MG TABLET (FP) PO SCH (10:01)
[2017-09-12 10:45] VITALS: TEMP 97.8
--- NOTE | 2017-09-12 11:27 | PN ---
Progress Note, Physician History of Present Illness: Diastolic failure with bilateral lower extremity edema and hypertensive urgency improving, comfortable sitting in chair. - Current Medication List Current Medications: Active Medications Acetaminophen (Tylenol -) 650 mg PO Q6H PRN PRN Reason: PAIN LEVEL 6-10 Last Admin: 09/08/17 22:49 Dose: 650 mg Albuterol/Ipratropium (Duoneb -) 1 amp NEB RTID [facility] Last Admin: 09/12/17 08:19 Dose: 1 amp Amlodipine Besylate (Norvasc -) 10 mg PO DAILY [facility] Last Admin: 09/12/17 10:01 Dose: 10 mg Apixaban (Eliquis -) 5 mg PO BID [facility] Last Admin: 09/12/17 10:01 Dose: 5 mg Atorvastatin Calcium (Lipitor -) 20 mg PO HS [facility] Last Admin: 09/11/17 22:31 Dose: 20 mg Docusate Sodium (Colace -) 300 mg PO HS [facility] Last Admin: 09/11/17 22:31 Dose: Not Given Furosemide (Lasix -) 40 mg PO BID@0600,1400 [facility] Last Admin: 09/12/17 06:35 Dose: 40 mg Ertapenem 1 gm/ Sodium (Chloride) 50 mls @ 100 mls/hr IVPB DAILY [facility] PRN Reason: Protocol Last Admin: 09/12/17 10:01 Dose: 100 mls/hr Insulin Aspart (Novolog Vial Sliding Scale -) 1 vial SQ ACHS PK PRN Reason: Protocol Last Admin: 09/12/17 06:35 Dose: 4 units Labetalol HCl (Normodyne -) 300 mg PO BID [facility] Last Admin: 09/12/17 10:01 Dose: 300 mg Lisinopril (Prinivil) 40 mg PO DAILY [facility] Last Admin: 09/12/17 10:01 Dose: 40 mg Pantoprazole Sodium (Protonix -) 40 mg PO DAILY [facility] Last Admin: 09/12/17 10:01 Dose: 40 mg Polyethylene Glycol (Miralax (For Daily Use) -) 17 gm PO BID [facility] Last Admin: 09/12/17 10:01 Dose: 17 grams Prednisone (Deltasone -) 40 mg PO DAILY [facility] Last Admin: 09/12/17 10:57 Dose: 40 mg Sertraline HCl (Zoloft -) 50 mg PO DAILY [facility] Last Admin: 09/12/17 10:01 Dose: 50 mg - Objective Vital Signs: Vital Signs Temperature 97.8 F 09/12/17 10:00 Pulse Rate 77 09/12/17 10:00 Respiratory Rate 20 09/12/17 10:00 Blood Pressure 169/91 09/12/17 10:00 O2 Sat by Pulse Oximetry (%) 97 09/11/17 20:08 Constitutional: Yes: No Distress, Calm Neck: Yes: Supple Cardiovascular: Yes: Pulse Irregular Respiratory: Yes: Regular, Diminished, On Nasal O2 Gastrointestinal: Yes: Normal Bowel Sounds, Soft, Abdomen, Obese Edema: No Labs: CBC, BMP 09/10/17 10:45 09/12/17 08:31 INR, PTT INR 1.84 (0.82-1.09) H 09/07/17 06:00 Problem List - Problems (1) Acute on chronic diastolic (congestive) heart failure Code(s): I50.33 - ACUTE ON CHRONIC DIASTOLIC (CONGESTIVE) HEART FAILURE (2) [id number] kidney injury Code(s): N17.9 - ACUTE KIDNEY FAILURE, UNSPECIFIED; N18.9 - CHRONIC KIDNEY DISEASE, UNSPECIFIED Qualifiers: Acute renal failure type: unspecified Chronic kidney disease stage: stage 2 (mild) Qualified Code(s): N17.9 - Acute kidney failure, unspecified; N18.2 - Chronic kidney disease, stage 2 (mild); N18.2 - Chronic kidney disease, stage 2 (mild) (3) Anemia Code(s): D64.9 - ANEMIA, UNSPECIFIED Qualifiers: Anemia type: unspecified type Qualified Code(s): D64.9 - Anemia, unspecified (4) HTN (hypertension) Code(s): I10 - ESSENTIAL (PRIMARY) HYPERTENSION Qualifiers: Hypertension type: essential hypertension Qualified Code(s): I10 - Essential (primary) hypertension (5) Aortic valve stenosis Code(s): I35.0 - NONRHEUMATIC AORTIC (VALVE) STENOSIS Qualifiers: Cardiac valve disease etiology: nonrheumatic Qualified Code(s): I35.0 - Nonrheumatic aortic (valve) stenosis (6) Atrial fibrillation Code(s): I48.91 - UNSPECIFIED ATRIAL FIBRILLATION Qualifiers: Atrial fibrillation type: persistent Qualified Code(s): I48.1 - Persistent atrial fibrillation (7) COPD (chronic obstructive pulmonary disease) Code(s): J44.9 - CHRONIC OBSTRUCTIVE PULMONARY DISEASE, UNSPECIFIED Qualifiers: COPD type: unspecified COPD Qualified Code(s): J44.9 - Chronic obstructive pulmonary disease, unspecified (8) Diabetes mellitus Code(s): E11.9 - TYPE 2 DIABETES MELLITUS WITHOUT COMPLICATIONS Qualifiers: Diabetes mellitus type: type 2 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1 - Nonrheumatic tricuspid (valve) insufficiency Assessment/Plan 09/10/2017 Echo: Normal biventricular size and fxn, mild cLVH, mod TRINI, mod MG 25 mmHg CHARI 0.79 cm^2, mild MR, TR, AR 1. Acute on chronic diastolic LV dysfunction with class I-II NYHA classification LV failure, resolved 2. Chronic obstructive airway disease exacerbation, resolved 3. CAD non-obstructive CAD history of demand ischemic injury angina pectoris 4. Persistent atrial fibrillation with [id number] score of 7 on chronic A/C with NOAC's/Eliquis 5. Mitral valve regurgitation 6. Aortic valve stenosis (moderate) 7. Tricuspid valve regurgitation 8. Pulmonary HTN 9. Diabetes mellitus 10. Hypercholesterolemia 12. Acute on CKD 13. Anemia 14. E. coli UTI on Meropenem D#3 15. s/p revision right OFE/periprosthetic fracture 01/2017 16. HTN, BP not at goal control PLAN: 1. Increase Labetalol 400 bid 2. Continue Amlodipine 10 qd 3. Continue Prinivil 40 qd 4. Continue Lipitor 20 qhs 5. Resumed Lasix 40 po bid 6. Continue Eliquis 5 bid with close monitoring of CBC 7. PT->SNF 8. BD, O2 as needed, rapid steroid taper, complete IV abx course per ID
[2017-09-12] MEDS ORDERED: LABETALOL HCL 200 MG TABLET (FP) PO SCH (11:31)
[2017-09-12] MEDS ORDERED: PICC LINE 8 ML FLUSH PROTOCOL IVPUSH PRN (13:14)
--- NOTE | 2017-09-12 14:00 | DS ---
Physical Exam: SUBJECTIVE: Patient seen and examined. She has no acute complaints OBJECTIVE: Vital Signs Period Temp Pulse Resp BP Sys/Mo Pulse Ox Last 24 Hr 97.4 F-98.3 F 72-77 18-20 138-179/56-91 97-97 PE Neuro: alert, awake, cn 2-12intact Pulm: basilar rales CV: s1 s2 irregular rate + 2/6 murmur Abd: obese abd, s nt nd + bs Ext: +1 le edema Laboratory Results - last 09/12/17 08:31 Sodium 140 Potassium 3.9 Chloride 98 Carbon Dioxide 34 H Anion Gap 8 BUN 32 H Creatinine 1.1 H POC Glucometer Random Glucose 191 H Calcium 8.6 HOSPITAL COURSE: Date of Admission:09/06/17 Date of Discharge: 09/12/17 Minutes to complete discharge: 37 Discharge Summary Reason For Visit: UTI,ACUTE ON CHRONIC CHF Current Active Problems CHF exacerbation (Acute) UTI (urinary tract infection) (Acute) Hospital Course: Initial Hospital Course: Briefly, 81 year old female with a PMHx significant for HTN, diastolic CHF, atrial fibrillation on Eliquis, asthma/COPD, IDDM, skin cancer, anemia, 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 Patient was discharged from [facility] She was recently treated there with two different courses of PO antibiotics for a UTI, but patient continues to experience dysuria. Patient also states did not get her correct dose of Lasix at [facility] and her legs are edematous. Finally, while straining this morning to have a BM she noticed about 20 drops of bright red and dark red blood in the toilet. Patient did not take her morning medications today. 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 Plan: 1. Acute on chronic diastolic heart failure - Continue lasix 40mg BID 2. ESBL UTI - Ertapenem day 4 of 14 days 3. Hypertension - Keep increased Labetolol 400mg BID - Keep increased amlodipine 10mg - Lisinopril 40mg 4. Persistent atrial fibrillation - Eliquis 5mg BID 5. Asthma/COPD exacerbation - S/p IV medrol - Home with PO taper as listed 6. Non-obstructive CAD - Continue Lipitor 7. CKD - Cr 1.1 8. Anemia, iron deficient - Ferrous sulfate 9. Diarrhea, resolved - C. diff negative 10. DM II - Lantus - ISS Dispo: - Transfer for [facility] for SNF and abx - Cardiology and pcp Follow Up - Meds as above Condition: Stable - Instructions Diet, Activity, Other Instructions: Please return to the ED for any new, persistent, or worsening symptoms. Follow up with your PCP in 2 weeks Complete 10 more days of iv antibiotics Continue home medications as directed on discharge list only New meds have been sent to your pharmacy available on discharge Referrals: Duane Contreras MD [Staff Physician] - Arvind Ravi MD [Primary Care Provider] - Disposition: [facility] - Home Medications Comprehensive Discharge Medication List: Ambulatory Orders Ferrous Sulfate 325 mg PO BID 12/29/16 Lisinopril [Zestril] 40 mg PO DAILY 12/29/16 Potassium Chloride 20 meq PO DAILY 12/29/16 Simvastatin 40 mg PO DAILY 12/29/16 Albuterol Sulfate [Proair Hfa] 2 inh IH Q4HWA 06/15/17 Repaglinide [Prandin -] 1 mg PO TID 06/15/17 Albuterol 2.5/Ipratropium 0.5 [Duoneb -] 1 amp NEB Q6H PRN amp 06/19/17 Amlodipine Besylate [Norvasc -] 5 mg PO DAILY tablet 06/19/17 Apixaban [Eliquis -] 2.5 mg PO BID 09/06/17 Insulin Glargine,Hum.rec.anlog [Lantus] 15 unit SQ DAILY 09/06/17 Omeprazole Magnesium [Prilosec Otc] 40 mg PO DAILY 09/06/17 Sertraline HCl [Zoloft -] 50 mg PO DAILY 09/09/17 Amlodipine Besylate [Norvasc -] 10 mg PO DAILY #30 tablet 09/12/17 Ertapenem Sodium [Invanz -] 1 gm IVPB DAILY #10 vial 09/12/17 Furosemide [Lasix -] 40 mg PO BID@0600,1400 tablet 09/12/17 Insulin Sliding Scale [Novolog Vial Sliding Scale -] 1 vial SQ ACHS units 09/12 Labetalol HCl [Normodyne -] 400 mg PO BID #60 tablet 09/12/17 Prednisone 10 mg PO ASDIR #30 tablet 09/12/17 This patient is new to me today: No Emergency Visit: Yes ED Registration Date: 09/06/17 Care time: The patient presented to the Emergency Department on the above date and was hospitalized for further evaluation of their emergent condition. Critical Care patient: No - Discharge Referral Referred to [facility] Med P.C.: No
--- NOTE | 2017-09-12 14:57 | PN ---
Progress Note, Physician History of Present Illness: doing well no new issues - Current Medication List Current Medications: Active Medications Acetaminophen (Tylenol -) 650 mg PO Q6H PRN PRN Reason: PAIN LEVEL 6-10 Last Admin: 09/08/17 22:49 Dose: 650 mg Albuterol/Ipratropium (Duoneb -) 1 amp NEB RTID [facility] Last Admin: 09/12/17 08:19 Dose: 1 amp Amlodipine Besylate (Norvasc -) 10 mg PO DAILY [facility] Last Admin: 09/12/17 10:01 Dose: 10 mg Apixaban (Eliquis -) 5 mg PO BID [facility] Last Admin: 09/12/17 10:01 Dose: 5 mg Atorvastatin Calcium (Lipitor -) 20 mg PO HS [facility] Last Admin: 09/11/17 22:31 Dose: 20 mg Docusate Sodium (Colace -) 300 mg PO HS [facility] Last Admin: 09/11/17 22:31 Dose: Not Given Furosemide (Lasix -) 40 mg PO BID@0600,1400 [facility] Last Admin: 09/12/17 14:30 Dose: 40 mg IV Flush (Picc Line Flush) 8 ml IVPUSH PRN PRN PRN Reason: Protocol Ertapenem 1 gm/ Sodium (Chloride) 50 mls @ 100 mls/hr IVPB DAILY [facility] PRN Reason: Protocol Last Admin: 09/12/17 10:01 Dose: 100 mls/hr Insulin Aspart (Novolog Vial Sliding Scale -) 1 vial SQ ACHS PK PRN Reason: Protocol Last Admin: 09/12/17 11:30 Dose: 6 units Labetalol HCl (Normodyne -) 400 mg PO BID [facility] Lisinopril (Prinivil) 40 mg PO DAILY [facility] Last Admin: 09/12/17 10:01 Dose: 40 mg Pantoprazole Sodium (Protonix -) 40 mg PO DAILY [facility] Last Admin: 09/12/17 10:01 Dose: 40 mg Polyethylene Glycol (Miralax (For Daily Use) -) 17 gm PO BID [facility] Last Admin: 09/12/17 10:01 Dose: 17 grams Prednisone (Deltasone -) 40 mg PO DAILY [facility] Last Admin: 09/12/17 10:57 Dose: 40 mg Sertraline HCl (Zoloft -) 50 mg PO DAILY [facility] Last Admin: 09/12/17 10:01 Dose: 50 mg - Objective Vital Signs: Vital Signs Temperature 97.8 F 09/12/17 10:00 Pulse Rate 77 09/12/17 10:00 Respiratory Rate 20 09/12/17 10:00 Blood Pressure 169/91 09/12/17 10:00 O2 Sat by Pulse Oximetry (%) 97 09/12/17 09:00 Constitutional: Yes: No Distress, Calm Cardiovascular: Yes: S1, S2 Respiratory: Yes: Regular, CTA Bilaterally Gastrointestinal: Yes: Normal Bowel Sounds Musculoskeletal: Yes: WNL Extremities: Yes: WNL Neurological: Yes: Alert, Oriented Psychiatric: Yes: Alert, Oriented Labs: CBC, BMP 09/10/17 10:45 09/12/17 08:31 INR, PTT INR 1.84 (0.82-1.09) H 09/07/17 06:00 Assessment/Plan 81 year old female with a PMH significant for HTN, HLD, non-obstructive CAD, diastolic heart failure, significant cardiac valvular pathology, pulmonary HTN, persistent atrial fibrillation on Eliquis, asthma/COPD, IDDM, CKD, anemia, skin cancer, 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 Plan: 1. Acute on chronic diastolic heart failure 2. ESBL UTI 3. Hypertension 4. atrial fibrillation 5. Asthma/COPD exacerbation 6 dm plan continue abx finish the complete course family in room discussed in detail with the family
[2017-09-12 15:05] VITALS: BP 166/77; PULSE 72
== END 2017-09-12 19:10 | DRG 291 ==
LOC: JER 11:22 → JERBED 15:49 → J7W 19:00
PROVIDERS: ADMIT Internal Medicine; ATTEND Nurse Practitioner Acute Care
PROC: 02HV33Z Insertion of Infusion Device into Superior Vena Cava, Percutaneous Approach (ICD-10-PCS; principal; 2017-09-12)
DX: I13.0 Hypertensive heart and chronic kidney disease with heart failure and stage 1 through stage 4 chronic kidney disease, or unspecified chronic kidney disease (principal); I50.33 Acute on chronic diastolic (congestive) heart failure; N39.0 Urinary tract infection, site not specified; I48.1 Persistent atrial fibrillation; J44.1 Chronic obstructive pulmonary disease with (acute) exacerbation; N17.9 Acute kidney failure, unspecified; I16.0 Hypertensive urgency; I48.91 Unspecified atrial fibrillation; B96.20 Unspecified Escherichia coli [E. coli] as the cause of diseases classified elsewhere; K64.9 Unspecified hemorrhoids; I27.20 Pulmonary hypertension, unspecified; I25.10 Atherosclerotic heart disease of native coronary artery without angina pectoris; R19.7 Diarrhea, unspecified; I08.1 Rheumatic disorders of both mitral and tricuspid valves; E87.6 Hypokalemia; D50.9 Iron deficiency anemia, unspecified; E83.42 Hypomagnesemia; M16.10 Unilateral primary osteoarthritis, unspecified hip; M17.10 Unilateral primary osteoarthritis, unspecified knee; E11.22 Type 2 diabetes mellitus with diabetic chronic kidney disease; N18.9 Chronic kidney disease, unspecified; Z85.828 Personal history of other malignant neoplasm of skin; Z79.4 Long term (current) use of insulin; Z96.641 Presence of right artificial hip joint
CPT/HCPCS: 36415; 36569; 71045-TC-FY; 77001-TC-FY; 80048; 80053; 81003; 81015; 82272; 82550; 82962; 83690; 83735; 83880; 84100; 84484; 85025; 85610; 85730; 87040; 87045; 87046; 87086; 87186; 87324; 87449; 93005; 93010; 93306-TC; 94640; 97116-GP; 97161-GP; 99284-25; C1751; J7620

== ENCOUNTER 2017-09-23 12:05 | Inpatient (IN) | payer OTHER ==
--- NOTE | 2017-09-23 12:29 | PDOC ---
History of Present Illness - General Chief Complaint: Injury Stated Complaint: FALL Time Seen by Provider: 09/23/17 12:21 - History of Present Illness Initial Comments: 09/23/17 14:47 The patient is an 81 year old female with a history of HTN, HLD, DM, COPD, CHF, dementia, who presents for evaluation of confusion and fall. History from the patient is limited due to the patient's dementia. History is obtained from senior care paper work and EMS report. Per report, the patient experienced an unwitnessed fall 2 days ago. However, the patient has been more confused than normal prompting her presentation to the ED for evaluation. Of note, she has a pic line in place for treatment of esbl UTI. The patient is currently only complaining of lower back pain. The patient denies fevers, chills, SOB, chest pain, nausea, vomiting, abdominal pain, or changes with urination or bowel movements. Past History - Past Medical History Allergies/Adverse Reactions: Allergies Allergy/AdvReac Type Severity Reaction Status Date / Time ciprofloxacin [From Cipro] Allergy Verified 09/06/17 11:28 ciprofloxacin HCl Allergy Verified 09/06/17 11:28 [From Cipro] Home Medications: Ambulatory Orders Ferrous Sulfate 325 mg PO BID 12/29/16 Lisinopril [Zestril] 40 mg PO DAILY 12/29/16 Simvastatin 40 mg PO DAILY 12/29/16 Repaglinide [Prandin -] 1 mg PO TID 06/15/17 Albuterol 2.5/Ipratropium 0.5 [Duoneb -] 1 amp NEB Q6H PRN amp 06/19/17 Apixaban [Eliquis -] 2.5 mg PO BID 09/06/17 Insulin Glargine,Hum.rec.anlog [Lantus] 15 unit SQ DAILY 09/06/17 Omeprazole Magnesium [Prilosec Otc] 40 mg PO DAILY 09/06/17 Sertraline HCl [Zoloft -] 50 mg PO DAILY 09/09/17 Amlodipine Besylate [Norvasc -] 10 mg PO DAILY #30 tablet 09/12/17 Furosemide [Lasix -] 40 mg PO BID@0600,1400 tablet 09/12/17 Insulin Sliding Scale [Novolog Vial Sliding Scale -] 1 vial SQ ACHS units 09/12 Labetalol HCl [Normodyne -] 400 mg PO BID #60 tablet 09/12/17 Prednisone 10 mg PO ASDIR #30 tablet 09/12/17 Acetaminophen [Tylenol] 650 mg PO QID 09/24/17 Anemia: Yes Asthma: Yes Cancer: Yes (SKIN / FOREHEAD 2010) Cardiac Disorders: Yes (A-fib) CVA: No COPD: Yes CHF: Yes Dementia: No Diabetes: Yes GI Disorders: No Disorders: No HTN: Yes Hypercholesterolemia: No Liver Disease: No Seizures: No Thyroid Disease: No - Surgical History Abdominal Surgery: No Appendectomy: No Cardiac Surgery: No Cholecystectomy: No Lung Surgery: No Neurologic Surgery: No Orthopedic Surgery: Yes ((R) HIP REPLACEMENT 2007) - Immunization History Immunization Up to Date: Yes - Suicide/Smoking/Psychosocial Hx Smoking Status: No Smoking History: Never smoked Have you smoked in the past 12 months: No Number of Cigarettes Smoked Daily: 0 If you are a former smoker, when did you quit?: "when I was very young" Cigars Per Day: 0 Hx Alcohol Use: No Drug/Substance Use Hx: No Substance Use Type: None Hx Substance Use Treatment: No Review of Systems - Review of Systems Comments:: 09/23/17 15:05 Constitutional: No fevers, chills, fatigue, malaise HEENT: No Rhinorrhea, nasal congestion, visual changes Cardiovascular: No chest pain, syncope, palpitations, lightheadedness Respiratory: No Cough, SOB, Hemoptysis, Gastrointestinal: No Abdominal pain, Nausea, Vomiting, Constipation, Diarrhea, Melena Genitourinary: No Dysuria, Frequency, Urgency, Hesitancy, Hematuria, Flank pain Musculoskeletal: Lower back pain. No Myalgia, arthralgia Skin: No rashes, itching, bruising, pallor Neurologic: No Headache, Dizziness, Numbness, Weakness, or Tingling Psychiatric: No Hallucinations. No SI or HI *Physical Exam - Physical Exam Comments: 09/23/17 15:06 General Appearance: Nourished. No Apparent Distress HEENT: EOMI, DELILAH. No Pharyngeal Erythema, Tonsillar Exudate, Tonsillar Erythema Neck: No Cervical Lymphadenopathy Respiratory/Chest: Lungs Clear, Normal Breath Sounds. No Crackles, Rales, Rhonchi, Wheezing Cardiovascular: Regular Rhythm, Regular Rate. No Murmur, Gallops, Rubs Gastrointestinal/Abdominal: Normal Bowel Sounds, Soft. No Guarding, Rebound, Tenderness Musculoskeletal: Midline tenderness to palpation along the lumbar spine. No CVA Tenderness Extremity: Normal Capillary Refill Integumentary: Normal Color, Dry, Warm Neurologic: Oriented x2, Alert, Normal Mood/Affect, Normal Response, ED Treatment Course - LABORATORY CBC & Chemistry Diagram: 09/23/17 14:05 09/23/17 14:05 Medical Decision Making - Medical Decision Making 09/23/17 15:06 The patient is an 81 year old female with a history of HTN, HLD, DM, COPD, CHF, dementia, who presents for evaluation of confusion and fall. Differential includes but is not limited to: ACS, Pneumonia, UTI, Fracture, Intracranial process, infectious, metabolic derangement. Given the patient's history, we will obtain a cbc, cmp, troponin, blood cultures, ua, urine cultures, chest plain film, head ct, cervical ct, lumbar ct to evaluate further for possible etiologies. We will treat in the meantime with vanc and zosyn given the patient 's previous sensitivity results in her urine cultures. We will continue to monitor and reassess in the meantime. 09/23/17 18:05 CBC demonstrates an elevated WBC. CMP, troponin, ua are unremarkable. Chest plain film is unremarkable as read by our radiologist. The patient continues to spike fevers here in the ED and desaturate on room air to 88%. Given the patient's clinical picture, it is likely her symptoms are due to a pneumonia. We believe that she requires admission for further management at this time. The patient's lumbar CT demonstrates an acute compression fracture of L5 as well as read by our radiologist. We discussed the case with the admitting team who accepted the patient for admission. *DC/Admit/Observation/Transfer Diagnosis at time of Disposition: Sepsis due to pneumonia - Discharge Dispostion Condition at time of disposition: Stable Admit: Yes - Referrals - Patient Instructions - Post Discharge Activity
[2017-09-23 14:19] LABS: BASO % 0.4 % (0-2.0); EOS % 3.3 % (0-4.5); HEMATOCRIT 31.7 % (32.4-45.2); HEMOGLOBIN 10.4 GM/dL (10.7-15.3); LYMPH % 5.1 % (8-40); MCH 28.3 pg (25.7-33.7); MCHC 32.8 g/dl (32.0-36.0); MEAN CELL VOLUME 86.4 fl (80-96); MEAN PLT VOLUME 9.3 fl (7.5-11.1); MONO % 5.3 % (3.8-10.2); NEUT % 85.9 % (42.8-82.8); PLATELET COUNT 208 K/MM3 (134-434); RBC 3.67 M/mm3 (3.60-5.2); RDW 17.7 % (11.6-15.6); WHITE BLOOD COUNT 13.1 K/mm3 (4.0-10.0)
[2017-09-23 14:40] LABS: ALBUMIN 3.4 g/dl (3.4-5.0); ANION GAP 10 (8-16); BILIRUBIN,TOTAL 0.8 mg/dL (0.2-1.0); BLOOD UREA NITROGEN 22 mg/dL (7-18); CALCIUM 8.5 mg/dL (8.5-10.1); CHLORIDE 105 mmol/L (98-107); CO2 32 mmol/L (21-32); CREATININE 1.1 mg/dL (0.55-1.02); GLUCOSE,RANDOM 157 mg/dL (74-106); INR 1.41 (0.82-1.09); POTASSIUM 3.3 mmol/L (3.5-5.1); PROTHROMBIN TIME (PATIENT) 15.9 SEC (9.7-13.0); SGOT/AST 13 U/L (15-37); SGPT/ALT 23 U/L (12-78); SODIUM 147 mmol/L (136-145)
[2017-09-23 14:43] LABS: ACTIVATED PTT 27.7 SECONDS (26.9-34.4); ALK PHOS 55 U/L (45-117)
[2017-09-23] MEDS ORDERED: ACETAMINOPHEN 1000 MG/100 ML VIAL (NON FORMULARY) IVPB ONE (14:55)
[2017-09-23] MEDS ORDERED: ACETAMINOPHEN INJECTION 100 ML IVPB ONE (14:56)
[2017-09-23] MEDS ORDERED: VANCOMYCIN 1,000 MG in DEXTROSE 5%-WATER - 250 ML IVPB ONE (15:02)
[2017-09-23 15:09] LABS: URINE APPEARANCE CLEAR; URINE BILIRUBIN NEGATIVE (<2.0 mg/dL); URINE COLOR LTYELLOW; URINE GLUCOSE (UA) NEGATIVE (NEGATIVE); URINE KETONE NEGATIVE (NEGATIVE); URINE LEUK ESTERASE NEGATIVE (NEGATIVE); URINE NITRITE NEGATIVE (NEGATIVE); URINE UROBILINOGEN NEGATIVE mg/dL (0.2-1.0)
[2017-09-23 15:11] LABS: URINE PROTEIN 2+ (NEGATIVE)
[2017-09-23 15:14] LABS: EPI CELLS RARE /HPF (FEW)
[2017-09-23] MEDS ORDERED: VANCOMYCIN 1 GRAM (PRE-DOCKED) 1,000 MG/250 ML BAG IVPB ONE (15:38)
[2017-09-23] MEDS ORDERED: PIPERACILLIN/TAZOB 3.375 GM 3.375 GM/50 ML BAG IVPB ONE (15:38)
--- NOTE | 2017-09-23 15:43 | PDOC ---
Attending Attestation - HPI HPI: 09/23/17 16:24 Pt is a 81 yo F resident from [facility] with a PMHx of HTN, HLD, DM, COPD, CHF , Dementia who presents to the ED for further evaluation of fall and confusion. As per [facility] staff, patient had unwitnessed fall wo days ago, with no complains of pain. Patients daughter visited her today and noticed the patient was more confused than usual. Patient was sent to the ED for further evaluation. In the ED, patient complaints of back pain and is unable to verbalize intensity or location. PCP: None - Physicial Exam PE: 09/23/17 16:24 agree with resident exam - Medical Decision Making 09/23/17 16:24 Documentation prepared by Mraia M Cuellar, acting as manager medical for Diane Xie MD <Maria M Cuellar - Last Filed: 09/23/17 16:24> - Resident Resident Name: Polo Belcher - ED Attending Attestation I have performed the following: I have examined & evaluated the patient, The case was reviewed & discussed with the resident, I agree w/resident's findings & plan, Exceptions are as noted - Medical Decision Making 09/23/17 15:41 81-year-old female with multiple medical problems including recent UTI status post PICC line on ertapenem presents to the emergency Department with fever, confusion, and hypoxia to 89%. Urinalysis is negative, and on review of microbiology, urine culture is sensitive to current antibiotics. Given hypoxia and fever, patient likely has pneumonia although chest x-ray has no focal infiltrates. Patient has been covered broadly with Vanc and Zosyn, we'll obtain a CT chest to evaluate for any infiltrates or infection and admit. <Diane Xie - Last Filed: 09/25/17 00:44>
[2017-09-23] MEDS ORDERED: PIPERACILLIN/TAZOB 3.375 GM 3.375 GM in DEXTROSE 5%-WATER - 50 ML IVPB SCH ×3 (15:55→22:00)
[2017-09-23] MEDS ORDERED: PIPERACILLIN/TAZOB 4.5 GM 4.5 GM in DEXTROSE 5%-WATER - 100 ML IVPB ONE (16:04)
[2017-09-23] MEDS ORDERED: PIPERACILLIN/TAZOB 3.375 GM 3.375 GM in DEXTROSE 5%-WATER - 50 ML IVPB ONE (16:17)
--- NOTE | 2017-09-23 17:51 | HP ---
CHIEF COMPLAINT: change in mental status PCP: Dr. 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 Per chart review, the patient had an unwitnessed fall two days ago. The daughter saw her today and noticed that she was more confused than usual and wanted her to be evaluated. The patient was discharged from [facility] with a PICC line for a total 14 day course of Ertapenem which completed on 09/22/17. The patient has no complaints at this time, but is rambling when questions are asked and is not giving any appropriate answers. ER course was notable for: (1) WBC 13.1 (2) Na 147, K 3.3, Cr 1.1 (3) UA negative (4) Temp 100.5, resp 30 Recent Travel: unknown PAST MEDICAL HISTORY: as above PAST SURGICAL HISTORY: as above Social History: Smoking: unknown Alcohol: unknown Drugs: unknown Family History: Allergies ciprofloxacin [From Cipro] Allergy (Verified 09/06/17 11:28) ciprofloxacin HCl [From Cipro] Allergy (Verified 09/06/17 11:28) HOME MEDICATIONS: Home Medications Medication Instructions Recorded Ferrous Sulfate 325 mg PO BID 12/29/16 Lisinopril [Zestril] 40 mg PO DAILY 12/29/16 Simvastatin 40 mg PO DAILY 12/29/16 Repaglinide [Prandin -] 1 mg PO TID 06/15/17 Albuterol 2.5/Ipratropium 0.5 1 amp NEB Q6H PRN amp 06/19/17 [Duoneb -] Apixaban [Eliquis -] 2.5 mg PO BID 09/06/17 Insulin Glargine,Hum.rec.anlog 15 unit SQ DAILY 09/06/17 [Lantus] Omeprazole Magnesium [Prilosec Otc] 40 mg PO DAILY 09/06/17 Sertraline HCl [Zoloft -] 50 mg PO DAILY 09/09/17 Amlodipine Besylate [Norvasc -] 10 mg PO DAILY #30 tablet 09/12/17 Furosemide [Lasix -] 40 mg PO BID@0600,1400 tablet 09/12/17 Insulin Sliding Scale [Novolog 1 vial SQ ACHS units 09/12/17 Vial Sliding Scale -] Labetalol HCl [Normodyne -] 400 mg PO BID #60 tablet 09/12/17 Prednisone 10 mg PO ASDIR #30 tablet 09/12/17 REVIEW OF SYSTEMS: per chart review MUSCULOSKELETAL: s/p fall 2 days ago NEUROLOGIC: altered mental status PHYSICAL EXAMINATION Vital Signs - 24 hr 09/23/17 09/23/17 12:05 15:16 Temperature 98.9 F 100.5 F H Pulse Rate 82 Pulse Rate [ 75 Apical] Respiratory 16 30 H Rate Blood Pressure 172/61 Blood Pressure 158/61 [Left Arm] O2 Sat by Pulse 95 Oximetry (%) GENERAL: A&Ox1 (person only), aggravated at times HEAD: Normal with no signs of trauma. EYES: Pupils equal, round and reactive to light EARS, NOSE, THROAT: Ears normal, nares patent, oropharynx clear without exudates. Moist mucous membranes. NECK: Normal range of motion LUNGS: Breath sounds equal, clear to auscultation bilaterally anteriorly HEART: Irregular rhythm, normal S1 and S2 ABDOMEN: Mild suprapubic tenderness. Soft, not distended, normoactive bowel sounds MUSCULOSKELETAL: Normal range of motion at all joints. Unable to assess CVA tenderness, patient refused to sit up UPPER EXTREMITIES: 2+ pulses, warm, well-perfused. No cyanosis. No clubbing. No peripheral edema. LOWER EXTREMITIES: 2+ pulses, warm, well-perfused. No calf tenderness. No peripheral edema. SKIN: Warm, dry, normal turgor, no rashes or lesions noted, normal capillary refill. Laboratory Results - last 24 hr 09/23/17 09/23/17 09/23/17 13:35 14:05 14:05 WBC 13.1 H RBC 3.67 Hgb 10.4 L Hct 31.7 L MCV 86.4 MCH 28.3 MCHC 32.8 RDW 17.7 H Plt Count 208 D MPV 9.3 Neutrophils % 85.9 H Lymphocytes % 5.1 L D Monocytes % 5.3 D Eosinophils % 3.3 D Basophils % 0.4 PT with INR 15.90 H INR 1.41 H PTT (Actin FS) 27.7 Sodium Potassium Chloride Carbon Dioxide Anion Gap BUN Creatinine Creat Clearance w eGFR Random Glucose Lactic Acid Calcium Total Bilirubin AST ALT Alkaline Phosphatase Creatine Kinase Troponin I Total Protein Albumin Urine Color Ltyellow Urine Appearance Clear Urine pH 7.0 D Ur Specific [place] 1.014 Urine Protein 2+ H Urine Glucose (UA) Negative Urine Ketones Negative Urine Blood Negative Urine Nitrite Negative Urine Bilirubin Negative Urine Urobilinogen Negative Ur Leukocyte Esterase Negative Urine WBC (Auto) 1 Urine RBC (Auto) <1 Ur Epithelial Cells Rare 09/23/17 09/23/17 14:05 15:53 WBC RBC Hgb Hct MCV MCH MCHC RDW Plt Count MPV Neutrophils % Lymphocytes % Monocytes % Eosinophils % Basophils % PT with INR INR PTT (Actin FS) Sodium 147 H Potassium 3.3 L Chloride 105 Carbon Dioxide 32 Anion Gap 10 BUN 22 H Creatinine 1.1 H Creat Clearance w eGFR 47.55 Random Glucose 157 H Lactic Acid 0.8 Calcium 8.5 Total Bilirubin 0.8 D AST 13 L ALT 23 Alkaline Phosphatase 55 Creatine Kinase 27 Troponin I 0.02 Total Protein 6.0 L Albumin 3.4 Urine Color Urine Appearance Urine pH Ur Specific [place] Urine Protein Urine Glucose (UA) Urine Ketones Urine Blood Urine Nitrite Urine Bilirubin Urine Urobilinogen Ur Leukocyte Esterase Urine WBC (Auto) Urine RBC (Auto) Ur Epithelial Cells Assessment: This is an 81 year old female with PMHx of HTN, HLD, non- obstructive CAD, diastolic heart failure, significant cardiac valvular pathology , pulmonary HTN, persistent atrial fibrillation on Eliquis, asthma/COPD, IDDM, CKD, anemia, skin cancer, 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 Plan: 1) Acute metabolic encephalopathy 2/2 infection - No source identified yet - UA negative: recently treated for ESBL uti with Ertapenem, last dose on 09/22 - Chest X-ray with no infiltrates - F/u blood cultures - Discussed with Dr. Haley, continue Zosyn - F/u neuro evaluation: Head CT reviewed 2) Chronic diastolic heart failure - No evidence of acute exacerbation - Continue Lasix 3) HTN - Continue Norvasc - Continue Lisinopril - Continue Labetolol 4) A.fib - Continue Eliquis 5mg po bid 5) CKD - Cr at baseline, continue to monitor 6) COPD - No evidence of exacerbation at this time - Continue 7) Anemia - Continue ferrous sulfate 8) DM - BGM ACHS - ISS ACHS 8) F/E/N: - Monitor electrolytes - Diabetic diet Visit type - Emergency Visit Emergency Visit: Yes ED Registration Date: 09/23/17 Care time: The patient presented to the Emergency Department on the above date and was hospitalized for further evaluation of their emergent condition. - New Patient This patient is new to me today: Yes Date on this admission: 09/23/17 - Critical Care Critical Care patient: No Hospitalist Screening - Colonoscopy Questionnaire Colonoscopy Questionnaire: Colonoscopy Questionnaire - Patient: 50 - 75 years old and never had a screening colonoscopy: Unknown History of colon or rectal polyps, or CA: Unknown History of IBD, Crohn's disease or UC: Unknown History of abdominal radiation therapy as a child: Unknown - Relative: 1 with colon or rectal CA, or polyps at age 60 or younger: Unknown Colon or rectal CA diagnosed at age 45 or younger: Unknown Multiple relatives with colon or rectal CA: Unknown - Outcome: Screening Result: Negative Screen
[2017-09-23] MEDS ORDERED: POTASSIUM CHLORIDE ORAL LIQUID 20 MEQ/15 ML PO ONE (18:30)
[2017-09-23] MEDS ORDERED: POTASSIUM CHLORIDE ORAL LIQUID 20 MEQ/15 ML ONE (20:00)
[2017-09-23] MEDS ORDERED: APIXABAN 5 MG TABLET PO SCH (22:00)
[2017-09-23] MEDS: LABETALOL HCL 200 MG TABLET (FP) PO SCH (23:02)
[2017-09-23] MEDS: ATORVASTATIN CA 20 MG TABLET (FP) PO SCH (23:02)
[2017-09-23] MEDS: APIXABAN 5 MG TABLET PO SCH (23:07)
[2017-09-23] MEDS: INSULIN SLIDING SCALE (NOVOLOG) 1 VIAL SQ SCH (23:07)
[2017-09-24 00:09] VITALS: BMI 31.1
[2017-09-24] MEDS ORDERED: DEXTROSE 5%-WATER - 50 ML IVPB ONE (01:12)
[2017-09-24] MEDS ORDERED: PIPERACILLIN/TAZOBACTAM 3.375 GM VIAL IVPB ONE (01:12)
[2017-09-24] MEDS ORDERED: PIPERACILLIN/TAZOB 3.375 GM 3.375 GM in DEXTROSE 5%-WATER - 50 ML IVPB ONE (02:00)
[2017-09-24] MEDS: INSULIN SLIDING SCALE (NOVOLOG) 1 VIAL SQ SCH ×4 (06:04→21:19)
[2017-09-24] MEDS: REPAGLINIDE 1 MG TABLET PO SCH ×3 (06:05→17:30)
[2017-09-24] MEDS: FUROSEMIDE 40 MG TABLET (FP) PO SCH ×3 (06:06→15:32)
[2017-09-24 07:58] LABS: HEMATOCRIT 30.6 % (32.4-45.2); HEMOGLOBIN 10.1 GM/dL (10.7-15.3); MCH 28.6 pg (25.7-33.7); MCHC 32.9 g/dl (32.0-36.0); MEAN CELL VOLUME 86.9 fl (80-96); MEAN PLT VOLUME 9.3 fl (7.5-11.1); PLATELET COUNT 192 K/MM3 (134-434); RBC 3.53 M/mm3 (3.60-5.2); RDW 18.1 % (11.6-15.6); WHITE BLOOD COUNT 11.7 K/mm3 (4.0-10.0)
[2017-09-24 08:27] LABS: ALBUMIN 3.4 g/dl (3.4-5.0); ANION GAP 10 (8-16); BLOOD UREA NITROGEN 18 mg/dL (7-18); CALCIUM 8.4 mg/dL (8.5-10.1); CHLORIDE 107 mmol/L (98-107); CO2 33 mmol/L (21-32); GLUCOSE,RANDOM 83 mg/dL (74-106); MAGNESIUM 2.2 mg/dL (1.8-2.4); PHOSPHOROUS 3.4 mg/dL (2.5-4.9); POTASSIUM 3.7 mmol/L (3.5-5.1); SGOT/AST 12 U/L (15-37); SGPT/ALT 21 U/L (12-78); SODIUM 150 mmol/L (136-145)
[2017-09-24 08:29] LABS: ALK PHOS 52 U/L (45-117); BILIRUBIN,TOTAL 1.3 mg/dL (0.2-1.0); TOT PROT 5.8 g/dl (6.4-8.2)
--- NOTE | 2017-09-24 09:43 | CONSULT ---
Consult - text type - Consultation Consultation Note: NEUROLOGY CONSULTATION is greatly appreciated: Events reviewed and discussed with Dr. Holly and RN. This 81 yo female [place] resident with H/O HTN, DM, Chol, ASHD, Valulopathy, AFib, CHF, COPD, depression and dementia. S/P THR. Recently admitted with UTI. D/C'ed to [place] with picc line for IV Ertapenem x 14 days- completed 09/21/17. Meds include: sertraline, prandin, albuterol, amlodipine, apixaban, atorvastatin , furosamide, labetolol, lisinopril. Unwitnessed fall 2 days ago. Now admitted with increasing confusion and jerking. Pt complains of low back and R leg pain. Given Pipercillin x 2 and vancomicin x [address] of head (reviewed): Moderate, diffuse atrophy with microvascular changes. No traumatic changes. CT of cervical spine: Moderate DJD without fracture or dislocation. CT of LS spine: Chronic L1 and L2 vertebral collapse. Newer L4 collapse with possible displaced fragment. FOUZIA: No external head trauma. Sl reduced neck ROM without tenderness. + SLR o right at 60. Comfortable on O2. NEURO: Awake, alert, friendly and cooperative. However, quite confused. Ox "a nice place." In NAD. Follows simple commands. Perseverates. MS is clearly different from recent admission according to Dr. Holly. Full chin to threat. Full EOM's. No facial. gag OK No drift but frequent axial and appendicular MYOCLONIC JERKs. Normal reflexes except absent AJ's. Downgoing toes. Feels sharp all 4's Gait deferred. IMP: 1. Moderate, B/L cerebral dysfunction (OMS) 2. Toxic-metabolic encephalopathy with Myoclonic Jerks. Consider antibiotic toxicity as possible etiology. 3. Diabetic peripheral neuropathy. 4. LB pain probably due to recent L4 vertebral collapse. Pt also has prior, chronic L1 and L2 osteoporotic collapse. SUGGEST: Hold antibiotics and reculture (including picc line). MRI of LS spine (C-) Rest in chair/bed x few days then mobilize gradually with elastic low back brace. Avoid narcotic analgesics. Thank you very much, Jay Martinez MD
[2017-09-24] MEDS ORDERED: PATIENT'S OWN MEDICATION (NON-FORMULARY) (Insulin Glargine,Hum.Rec.Anlog [Lantus] 15 UNIT) SQ SCH (10:00)
[2017-09-24] MEDS ORDERED: PT OWN MED DRAWER 7, Y5N ONE ×2 (10:24→21:17)
[2017-09-24] MEDS: LISINOPRIL 20 MG TABLET (FP) PO SCH (10:28)
[2017-09-24] MEDS: SERTRALINE HCL 50 MG TABLET (FP) PO SCH (10:29)
[2017-09-24] MEDS: PANTOPRAZOLE 40 MG TABLET (FP) PO SCH (10:30)
[2017-09-24] MEDS: LABETALOL HCL 200 MG TABLET (FP) PO SCH ×2 (10:30→22:13)
[2017-09-24] MEDS: amLODIPine BESYLATE 10 MG TABLET (FP) PO SCH (10:30)
[2017-09-24] MEDS: APIXABAN 5 MG TABLET PO SCH ×2 (10:31→22:13)
[2017-09-24] MEDS: FERROUS SO4 325 MG TABLET (FP) PO SCH ×2 (10:31→18:08)
--- NOTE | 2017-09-24 13:50 | PN ---
Physical Exam: SUBJECTIVE: Patient seen and examined. She is oob to wheel chair in hallway, she appears lost, however aware of self and PT at [facility]. States she has low back pain. However, not aware as she was during previous admission. OBJECTIVE: Vital Signs Period Temp Pulse Resp BP Sys/Mo Pulse Ox Last 24 Hr 97.8 F-100.5 F 66-80 18-30 140-166/61-87 98-99 PE Neuro: alert, awake, oriented to person, mono clonic jerks at rest and with outstretched arms HEENT: no top dentures, dry MM Pulm: L base crackles CV: s1 s2 rrr 2/6 murmur Abd: s nd nd + bs Ext: tender to palpation, trace edema Laboratory Results - last 24 hr 09/24/17 09/24/17 09/24/17 06:00 06:00 06:03 WBC 11.7 H RBC 3.53 L Hgb 10.1 L Hct 30.6 L MCV 86.9 MCH 28.6 MCHC 32.9 RDW 18.1 H Plt Count 192 MPV 9.3 Neutrophils % Lymphocytes % Monocytes % Eosinophils % Basophils % PT with INR INR PTT (Actin FS) Sodium 150 H Potassium 3.7 Chloride 107 Carbon Dioxide 33 H Anion Gap 10 BUN 18 Creatinine 1.0 Creat Clearance w eGFR 53.08 POC Glucometer 94 Random Glucose 83 Lactic Acid Calcium 8.4 L Phosphorus 3.4 Magnesium 2.2 Total Bilirubin 1.3 H D AST 12 L ALT 21 Alkaline Phosphatase 52 Creatine Kinase Troponin I Total Protein 5.8 L Albumin 3.4 Urine Color Urine Appearance Urine pH Ur Specific [place] Urine Protein Urine Glucose (UA) Urine Ketones Urine Blood Urine Nitrite Urine Bilirubin Urine Urobilinogen Ur Leukocyte Esterase Urine WBC (Auto) Urine RBC (Auto) Ur Epithelial Cells Active Medications Generic Name Dose Route Start Last Admin Trade Name Freq PRN Reason Stop Dose Admin Albuterol/Ipratropium 1 amp 09/23/17 17:55 Duoneb - NEB Q6H PRN SHORTNESS OF BREATH Amlodipine Besylate 10 mg 09/24/17 10:00 09/24/17 10:30 Norvasc - PO 10 mg DAILY PK Administration Apixaban 5 mg 09/23/17 22:00 09/24/17 10:31 Eliquis - PO 5 mg BID PK Administration Atorvastatin Calcium 20 mg 04/30/18 22:00 09/23/17 23:02 Lipitor - PO 20 mg HS PK Administration Ferrous Sulfate 325 mg 09/24/17 08:00 09/24/17 10:31 Feosol - PO 325 mg BIDWM PK Administration Furosemide 40 mg 09/24/17 06:00 09/24/17 06:06 Lasix - PO 40 mg BID@0600,1400 PK Administration Insulin Aspart 1 vial 09/23/17 22:00 09/24/17 12:32 Novolog Vial Sliding Scale - SQ Not Given ACHS [facility] Protocol Labetalol HCl 400 mg 09/23/17 22:00 09/24/17 10:30 Normodyne - PO 400 mg BID PK Administration Lisinopril 40 mg 09/24/17 10:00 09/24/17 10:28 Prinivil PO 40 mg DAILY PK Administration Pantoprazole Sodium 40 mg 09/24/17 10:00 09/24/17 10:30 Protonix - PO 40 mg DAILY PK Administration Repaglinide 1 mg 09/24/17 07:00 09/24/17 12:41 Prandin - PO 1 mg TIDAC PK Administration Sertraline HCl 50 mg 09/24/17 10:00 09/24/17 10:29 Zoloft - PO 50 mg DAILY PK Administration Microbiology 09/23/17 13:35 Urine Culture - Final Urine - Urine - Catheterized NO GROWTH OBTAINED Assessment: 81 year old female with PMHx of HTN, HLD, non-obstructive CAD, diastolic heart failure, significant cardiac valvular pathology, pulmonary HTN, persistent atrial fibrillation on Eliquis, asthma/COPD, IDDM, CKD, anemia, skin cancer, s/p right hip replacement 01/2017, and hemorrhoids [facility] and now with altered mental status. Plan: 1. Acute metabolic encephalopathy - Unclear source, no infectious cause appearing - Remove PICC line today - Consider holding abx, concern for pcn toxicity 2. s/p Fall - ? new fx L4-5 - MRI LS spine ordered - PT eval 3. Chronic diastolic heart failure - No evidence of acute exacerbation - Continue Lasix 40mg BID 4. HTN - Continue Norvasc 10mg daily - Continue Lisinopril 40mg daily - Continue Labetolol 400mg BID 5. A.fib - Continue Eliquis 5mg po bid 6. CKD - Cr at baseline, continue to monitor 7. COPD - No evidence of exacerbation at this time - Continue 8. Anemia - Continue ferrous sulfate 9. DM - BGM, ISS ACHS Visit type - Emergency Visit Emergency Visit: Yes ED Registration Date: 09/23/17 Care time: The patient presented to the Emergency Department on the above date and was hospitalized for further evaluation of their emergent condition. - New Patient This patient is new to me today: Yes Date on this admission: 09/24/17 - Critical Care Critical Care patient: No
--- NOTE | 2017-09-24 15:14 | CON.ID ---
Consult Consult Specialty:: infectious diseases Reason for Consultation:: slurred speech,confusion - History of Present Illness Chief Complaint: fall,slurred speech History of Present Illness: 81 year old female with PMHx of HTN, HLD, non-obstructive CAD, diastolic heart failure, significant cardiac valvular pathology, pulmonary HTN, persistent atrial fibrillation on Eliquis, asthma/COPD, IDDM, CKD, anemia, skin cancer, s/ p right hip replacement 01/2017, and hemorrhoids who presented to the ED s/p fall at the group home 2 days ago and now with altered mental status. Per chart review, the patient had an unwitnessed fall two days ago. the patient was d/sonal from the hospital couple of days back and was getting treatment for esbl she has completed the treatment for the same - History Source History Provided By: Family Member Limitations to Obtaining History: Clinical Condition - Past Medical History Cardio/Vascular: Yes: AFIB, Aortic Stenosis, CAD, CHF, HTN, Hyperlipdemia, Mitral Insufficiency, Murmur, Pulmonary Hypertension Pulmonary: Yes: COPD ...: No Musculoskeletal: Yes: Osteoarthritis (had hip and knee replacement, still with some healing problems ), Other Endocrine: Yes: Diabetes Mellitus - Past Surgical History Past Surgical History: Yes: Joint Replacement - Alcohol/Substance Use Hx Alcohol Use: No History of Substance Use: reports: None - Smoking History Smoking history: Never smoked Have you smoked in the past 12 months: No Aproximately how many cigarettes per day: 0 If you are a former smoker, when did you quit?: "when I was very young" Home Medications - Allergies Allergies/Adverse Reactions: Allergies Allergy/AdvReac Type Severity Reaction Status Date / Time ciprofloxacin [From Cipro] Allergy Verified 09/06/17 11:28 ciprofloxacin HCl Allergy Verified 09/06/17 11:28 [From Cipro] - Home Medications Home Medications: Ambulatory Orders Ferrous Sulfate 325 mg PO BID 12/29/16 Lisinopril [Zestril] 40 mg PO DAILY 12/29/16 Simvastatin 40 mg PO DAILY 12/29/16 Repaglinide [Prandin -] 1 mg PO TID 06/15/17 Albuterol 2.5/Ipratropium 0.5 [Duoneb -] 1 amp NEB Q6H PRN amp 06/19/17 Apixaban [Eliquis -] 2.5 mg PO BID 09/06/17 Insulin Glargine,Hum.rec.anlog [Lantus] 15 unit SQ DAILY 09/06/17 Omeprazole Magnesium [Prilosec Otc] 40 mg PO DAILY 09/06/17 Sertraline HCl [Zoloft -] 50 mg PO DAILY 09/09/17 Amlodipine Besylate [Norvasc -] 10 mg PO DAILY #30 tablet 09/12/17 Furosemide [Lasix -] 40 mg PO BID@0600,1400 tablet 09/12/17 Insulin Sliding Scale [Novolog Vial Sliding Scale -] 1 vial SQ ACHS units 09/12 Labetalol HCl [Normodyne -] 400 mg PO BID #60 tablet 09/12/17 Prednisone 10 mg PO ASDIR #30 tablet 09/12/17 Acetaminophen [Tylenol] 650 mg PO QID 09/24/17 Family Disease History - Family Disease History Family Disease History: Other: Daughter (alive and well) Review of Systems - Review of Systems Constitutional: reports: Other Eyes: reports: No Symptoms HENT: reports: No Symptoms Neck: reports: No Symptoms Cardiovascular: reports: No Symptoms Respiratory: reports: No Symptoms Gastrointestinal: reports: No Symptoms Genitourinary: reports: No Symptoms Musculoskeletal: reports: Other (twitching) Neurological: reports: Change in Speech, Confusion, Other (twitching) Endocrine: reports: No Symptoms Hematology/Lymphatic: reports: No Symptoms Psychiatric: reports: No Symptoms Physical Exam Vital Signs: Vital Signs Temperature 98.9 F 09/24/17 14:45 Pulse Rate 75 09/24/17 14:45 Respiratory Rate 18 09/24/17 14:45 Blood Pressure 137/63 09/24/17 14:45 O2 Sat by Pulse Oximetry (%) 98 09/24/17 09:00 Constitutional: Yes: Well Nourished, No Distress, Calm Eyes: Yes: Conjunctiva Clear HENT: Yes: Atraumatic Neck: Yes: Supple, Trachea Midline Cardiovascular: Yes: S1, S2 Respiratory: Yes: Regular, CTA Bilaterally Gastrointestinal: Yes: Normal Bowel Sounds, Soft Musculoskeletal: Yes: WNL Extremities: Yes: WNL Neurological: Yes: Alert, Oriented, Other (slurred speech) Psychiatric: Yes: Alert, Oriented Labs: CBC, BMP 09/24/17 06:00 05/01/18 06:00 Imaging - Results Chest X-ray: Report Reviewed, Image Reviewed Cat Scan: Report Reviewed, Image Reviewed Assessment/Plan looking at the patient multiple possibilities 1. Acute metabolic encephalopathy 2. Fall 3. Chronic diastolic heart failure 4. HTN 5. A.fib 6. CKD 7. COPD 8. Anemia 9. DM i am worried if the patient had narcotics.or she could have suffered a mini stroke though the ct is negative neurology on case,rare case scenario abx toxicity plan will hold off on starting anything continue to monitor close watch once stable mri neuro on case rest as per the team
[2017-09-24] MEDS: DEXTROSE 5%-WATER - 1,000 ML IV SCH ×2 (15:45→20:35)
--- NOTE | 2017-09-24 19:15 | PN ---
Progress Note (short form) - Note Progress Note: NEUROLOGY FOLLOW-UP: Events reviewed and discussed with Patient's daughter, RN and Dr. Holly. Trembling began on Saturday and increased on Saturday. Pt. had similar "jerking" after her hip surgery. Daughter notes clear decline in mentation and speech (confused) over the last 3 days. Now, increasing abdominal girth. Na+=150 mg% this AM. Treated with IV dextrose during the day. FOUZIA: Protuberant abd. Non-tender. In NAD NEURO: Awake, alert. Follows commands. Confused, gibberish, speech. Neck supple. -Kernig's. CN Normal. Full chin. Gag OK No drift. Moves all fours well. Still with diffuse myoclonic jerks. Stands with assistance (transferring to stretcher for Abd. XRay). Spontaneous retropulsion. IMP: Non-focal exam- unchanged from this AM Toxic-metabolic encephalopathy. LS vertebral collapse SUGGEST: R/O occult infection. R/O SBO (after narcotics?) Follow lytes MRI of brain when medically stable Thank you very much, Jay Martinez MD
[2017-09-24 20:05] LABS: BASO % 0.6 % (0-2.0); EOS % 4.5 % (0-4.5); HEMATOCRIT 31.6 % (32.4-45.2); HEMOGLOBIN 10.3 GM/dL (10.7-15.3); LYMPH % 11.3 % (8-40); MCH 28.4 pg (25.7-33.7); MCHC 32.6 g/dl (32.0-36.0); MEAN CELL VOLUME 87.1 fl (80-96); MEAN PLT VOLUME 8.8 fl (7.5-11.1); NEUT % 73.6 % (42.8-82.8); PLATELET COUNT 209 K/MM3 (134-434); RBC 3.63 M/mm3 (3.60-5.2); RDW 17.9 % (11.6-15.6); WHITE BLOOD COUNT 11.9 K/mm3 (4.0-10.0)
[2017-09-24] MEDS ORDERED: DEXTROSE 5%-WATER - 1,000 ML IV SCH (21:12)
[2017-09-24 21:22] LABS: ANION GAP 4 (8-16); BLOOD UREA NITROGEN 27 mg/dL (7-18); CALCIUM 8.4 mg/dL (8.5-10.1); CHLORIDE 106 mmol/L (98-107); CO2 34 mmol/L (21-32); CREATININE 1.3 mg/dL (0.55-1.02); GLUCOSE,RANDOM 56 mg/dL (74-106); POTASSIUM 3.8 mmol/L (3.5-5.1); SODIUM 144 mmol/L (136-145)
[2017-09-24] MEDS: ATORVASTATIN CA 20 MG TABLET (FP) PO SCH (22:13)
[2017-09-25] MEDS: FUROSEMIDE 40 MG TABLET (FP) PO SCH ×2 (05:39→13:10)
[2017-09-25] MEDS: INSULIN SLIDING SCALE (NOVOLOG) 1 VIAL SQ SCH ×4 (06:02→22:15)
[2017-09-25] MEDS: REPAGLINIDE 1 MG TABLET PO SCH ×3 (06:02→16:22)
[2017-09-25] MEDS ORDERED: SODIUM CHLORIDE 0.45% 1,000 ML IV SCH (07:30)
[2017-09-25 07:49] LABS: BASO % 0.7 % (0-2.0); EOS % 5.8 % (0-4.5); HEMATOCRIT 29.8 % (32.4-45.2); HEMOGLOBIN 9.9 GM/dL (10.7-15.3); LYMPH % 12.8 % (8-40); MCH 29.1 pg (25.7-33.7); MCHC 33.1 g/dl (32.0-36.0); MEAN CELL VOLUME 87.9 fl (80-96); MEAN PLT VOLUME 9.4 fl (7.5-11.1); MONO % 8.6 % (3.8-10.2); NEUT % 72.1 % (42.8-82.8); PLATELET COUNT 159 K/MM3 (134-434); RBC 3.39 M/mm3 (3.60-5.2); RDW 17.6 % (11.6-15.6); WHITE BLOOD COUNT 9.8 K/mm3 (4.0-10.0)
[2017-09-25 08:14] LABS: ANION GAP 11 (8-16); BLOOD UREA NITROGEN 22 mg/dL (7-18); CALCIUM 8.1 mg/dL (8.5-10.1); CHLORIDE 103 mmol/L (98-107); CO2 30 mmol/L (21-32); CREATININE 1.1 mg/dL (0.55-1.02); GLUCOSE,RANDOM 128 mg/dL (74-106); POTASSIUM 3.6 mmol/L (3.5-5.1); SODIUM 144 mmol/L (136-145)
[2017-09-25] MEDS: ALBUTEROL SO4 2.5/IPRATROPIUM 0.5 INH SOL 3 ML VIAL.NEB. NEB PRN (08:15)
[2017-09-25] MEDS: FERROUS SO4 325 MG TABLET (FP) PO SCH ×2 (08:51→18:16)
[2017-09-25] MEDS ORDERED: LACTULOSE 20 GM/30 ML UDC (FOR ORAL USE ONLY) PO PRN (10:18)
--- NOTE | 2017-09-25 10:36 | EKG ---
Test Reason : Blood Pressure : / mmHG Vent. Rate : 071 BPM Atrial Rate : 300 BPM P-R Int : 000 ms QRS Dur : 100 ms QT Int : 414 ms P-R-T Axes : 000 -55 081 degrees QTc Int : 449 ms ATRIAL FIBRILLATION WITH PREMATURE VENTRICULAR OR ABERRANTLY CONDUCTED COMPLEXES LEFT ANTERIOR FASCICULAR BLOCK ABNORMAL ECG WHEN COMPARED WITH ECG OF 06-SEP-2017 12:17, NO SIGNIFICANT CHANGE WAS FOUND Confirmed by CULLEN DE LA CRUZ, LA ([id number]) on 09/25/2017 10:35:37 AM Referred By: Confirmed By:LA BERMAN MD
[2017-09-25] MEDS: SERTRALINE HCL 50 MG TABLET (FP) PO SCH (10:44)
[2017-09-25] MEDS: LISINOPRIL 20 MG TABLET (FP) PO SCH (10:44)
[2017-09-25] MEDS: PANTOPRAZOLE 40 MG TABLET (FP) PO SCH (10:44)
[2017-09-25] MEDS: amLODIPine BESYLATE 10 MG TABLET (FP) PO SCH (10:44)
[2017-09-25] MEDS: LABETALOL HCL 200 MG TABLET (FP) PO SCH ×2 (10:44→22:21)
[2017-09-25] MEDS ORDERED: PT OWN MED DRAWER 7, Y5N ONE (10:47)
[2017-09-25] MEDS: APIXABAN 5 MG TABLET PO SCH ×2 (10:48→22:14)
[2017-09-25] MEDS: POLYETHYLENE GLYCOL 3350 119 GM BTL PO SCH (10:48)
--- NOTE | 2017-09-25 11:07 | PN ---
Physical Exam: SUBJECTIVE: Patient seen and examined. She is arousable but quickly goes to sleep. OBJECTIVE: Vital Signs Period Temp Pulse Resp BP Sys/Mo Pulse Ox Last 24 Hr 97.4 F-99.2 F 66-113 18-22 104-160/49-82 99 PE Neuro: alert, arousable, intermittent + monoclonic jerks Pulm: diminished bases L>R CV: s1 s2 rrr 2/6 murmur Abd: softer mild distention no tenderness Ext: trace le edema, warm Laboratory Results - last 24 hr 09/25/17 09/25/17 09/25/17 02:08 05:41 06:00 WBC 9.8 RBC 3.39 L Hgb 9.9 L Hct 29.8 L MCV 87.9 MCH 29.1 MCHC 33.1 RDW 17.6 H Plt Count 159 D MPV 9.4 Neutrophils % 72.1 Lymphocytes % 12.8 Monocytes % 8.6 Eosinophils % 5.8 H Basophils % 0.7 Sodium Potassium Chloride Carbon Dioxide Anion Gap BUN Creatinine POC Glucometer 125 150 Random Glucose Calcium Magnesium 09/25/17 06:00 WBC RBC Hgb Hct MCV MCH MCHC RDW Plt Count MPV Neutrophils % Lymphocytes % Monocytes % Eosinophils % Basophils % Sodium 144 Potassium 3.6 Chloride 103 Carbon Dioxide 30 Anion Gap 11 BUN 22 H Creatinine 1.1 H POC Glucometer Random Glucose 128 H Calcium 8.1 L Magnesium Active Medications Generic Name Dose Route Start Last Admin Trade Name Freq PRN Reason Stop Dose Admin Albuterol/Ipratropium 1 amp 09/23/17 17:55 09/25/17 08:15 Duoneb - NEB 1 amp Q6H PRN Administration SHORTNESS OF BREATH Amlodipine Besylate 10 mg 09/24/17 10:00 09/25/17 10:44 Norvasc - PO 10 mg DAILY PK Administration Apixaban 5 mg 09/23/17 22:00 09/25/17 10:48 Eliquis - PO 5 mg BID PK Administration Atorvastatin Calcium 20 mg 09/23/17 22:00 09/24/17 22:13 Lipitor - PO 20 mg HS PK Administration Ferrous Sulfate 325 mg 09/24/17 08:00 09/25/17 08:51 Feosol - PO Not Given BIDWM PK Furosemide 40 mg 09/24/17 06:00 09/25/17 05:39 Lasix - PO 40 mg BID@0600,1400 PK Administration Sodium Chloride 1,000 mls @ 75 mls/hr 09/25/17 07:30 09/25/17 10:27 1/2 Normal Saline IV 75 mls/hr ASDIR PK Administration Insulin Aspart 1 vial 09/24/17 13:54 09/25/17 06:02 Novolog Vial Sliding Scale - SQ Not Given ACHS PK Protocol Labetalol HCl 400 mg 09/23/17 22:00 09/25/17 10:44 Normodyne - PO 400 mg BID PK Administration Lactulose 20 gm 09/25/17 10:18 Cephulac (Oral Use) PO ONCE PRN CONSTIPATION Lisinopril 40 mg 09/24/17 10:00 09/25/17 10:44 Prinivil PO 40 mg DAILY PK Administration Pantoprazole Sodium 40 mg 09/24/17 10:00 09/25/17 10:44 Protonix - PO 40 mg DAILY PK Administration Polyethylene Glycol 17 gm 09/25/17 10:30 09/25/17 10:48 Miralax (For Daily Use) - PO 17 gm DAILY PK Administration Repaglinide 1 mg 09/24/17 07:00 09/25/17 06:02 Prandin - PO Not Given TIDAC [facility] Sertraline HCl 50 mg 09/24/17 10:00 09/25/17 10:44 Zoloft - PO 50 mg DAILY PK Administration Assessment: 81 year old female with PMHx of HTN, HLD, non-obstructive CAD, diastolic heart failure, significant cardiac valvular pathology, pulmonary HTN, persistent atrial fibrillation on Eliquis, asthma/COPD, IDDM, CKD, anemia, skin cancer, s/p right hip replacement 01/2017, and hemorrhoids admitted s/p fall at the [facility] and now with altered mental status. Plan: 1. Acute metabolic encephalopathy - Unclear source, no infectious cause appearing ?from narcotic after fall - RN to remove picc line today - Consider holding abx, concern for pcn toxicity - MRI brain when stable 2. Acute abdominal distention - CTAP negative for sbo, however marked fecal retention - Start miralax and lactulose 20mg prn x1 - Can restart diet - change fluids 1/2 ns 75cc 3. s/p Fall - ? new fx L4-5 - MRI LS spine ordered - PT eval 4. Chronic diastolic heart failure - No evidence of acute exacerbation - Continue Lasix 40mg BID 5. HTN - Continue Norvasc 10mg daily - Continue Lisinopril 40mg daily - Continue Labetolol 400mg BID 6. A.fib - Continue Eliquis 5mg po bid 7. CKD - Cr at baseline, continue to monitor 8. COPD - No evidence of exacerbation at this time - Continue 9. Anemia - Continue ferrous sulfate 9. DM - BGM, ISS ACHS 10. Hypernatremia - Resolved, stop d5 Visit type - Emergency Visit Emergency Visit: Yes ED Registration Date: 09/23/17 Care time: The patient presented to the Emergency Department on the above date and was hospitalized for further evaluation of their emergent condition. - New Patient This patient is new to me today: No - Critical Care Critical Care patient: No
--- NOTE | 2017-09-25 12:39 | PN ---
Progress Note, Physician History of Present Illness: patient looks much better than yesterday speech more clear than yesterday comfortable - Current Medication List Current Medications: Active Medications Albuterol/Ipratropium (Duoneb -) 1 amp NEB Q6H PRN PRN Reason: SHORTNESS OF BREATH Last Admin: 09/25/17 08:15 Dose: 1 amp Amlodipine Besylate (Norvasc -) 10 mg PO DAILY [facility] Last Admin: 09/25/17 10:44 Dose: 10 mg Apixaban (Eliquis -) 5 mg PO BID [facility] Last Admin: 09/25/17 10:48 Dose: 5 mg Atorvastatin Calcium (Lipitor -) 20 mg PO HS [facility] Last Admin: 09/24/17 22:13 Dose: 20 mg Ferrous Sulfate (Feosol -) 325 mg PO BIDWM [facility] Last Admin: 09/25/17 08:51 Dose: Not Given Furosemide (Lasix -) 40 mg PO BID@0600,1400 [facility] Last Admin: 09/25/17 05:39 Dose: 40 mg Sodium Chloride (1/2 Normal Saline) 1,000 mls @ 75 mls/hr IV ASDIR [facility] Last Admin: 09/25/17 10:27 Dose: 75 mls/hr Insulin Aspart (Novolog Vial Sliding Scale -) 1 vial SQ ACHS [facility] PRN Reason: Protocol Last Admin: 09/25/17 12:35 Dose: Not Given Labetalol HCl (Normodyne -) 400 mg PO BID [facility] Last Admin: 09/25/17 10:44 Dose: 400 mg Lactulose (Cephulac (Oral Use)) 20 gm PO ONCE PRN PRN Reason: CONSTIPATION Lisinopril (Prinivil) 40 mg PO DAILY [facility] Last Admin: 09/25/17 10:44 Dose: 40 mg Pantoprazole Sodium (Protonix -) 40 mg PO DAILY [facility] Last Admin: 09/25/17 10:44 Dose: 40 mg Polyethylene Glycol (Miralax (For Daily Use) -) 17 gm PO DAILY [facility] Last Admin: 09/25/17 10:48 Dose: 17 gm Repaglinide (Prandin -) 1 mg PO TIDAC [facility] Last Admin: 09/25/17 12:35 Dose: Not Given Sertraline HCl (Zoloft -) 50 mg PO DAILY [facility] Last Admin: 09/25/17 10:44 Dose: 50 mg - Objective Vital Signs: Vital Signs Temperature 99.9 F H 09/25/17 12:36 Pulse Rate 70 09/25/17 12:36 Respiratory Rate 18 09/25/17 12:36 Blood Pressure 133/58 09/25/17 12:36 O2 Sat by Pulse Oximetry (%) 99 09/25/17 09:00 Constitutional: Yes: No Distress, Calm Cardiovascular: Yes: Regular Rate and Rhythm Respiratory: Yes: Regular, CTA Bilaterally Gastrointestinal: Yes: Normal Bowel Sounds, Soft Musculoskeletal: Yes: WNL Extremities: Yes: WNL Neurological: Yes: Alert, Oriented Psychiatric: Yes: Alert, Oriented Labs: CBC, BMP 09/25/17 06:00 09/25/17 06:00 INR, PTT INR 1.41 (0.82-1.09) H 09/23/17 14:05 Assessment/Plan looking at the patient multiple possibilities 1. Acute metabolic encephalopathy 2. Fall 3. Chronic diastolic heart failure 4. HTN 5. A.fib 6. CKD 7. COPD 8. Anemia 9. DM patient speech already improving,thinks fall might have caused this plan will hold off on starting anything continue to monitor close watch once stable mri neuro on case rest as per the team
[2017-09-25 18:50] LABS: ARTERIAL BLD GAS O2 SATURATION 95.6 % (90-98.9); ARTERIAL BLOOD GAS BASE EXCESS 5.6 meq/l (-2-2); ARTERIAL BLOOD GAS PCO2 49.1 mmHg (35-45); ARTERIAL BLOOD GAS pH 7.41 (7.35-7.45)
[2017-09-25 18:55] LABS: ALLENS TEST POSITIVE
--- NOTE | 2017-09-25 19:52 | PN ---
Progress Note (short form) - Note Progress Note: NEUROLOGY FOLLOW-UP: Events reviewed and discussed with her son and daughter at the bedside. Much more comfortable s/p disimpaction for fecal impaction. Repeat CT of head (reviewed): Moderate, diffuse atrophy and microvascular changes-unchanged from admission. MRI of LS spine (reviewed): confirms L4 vertebral collapse and old compression fractures at L1, L2. Family confirms that the patient is less confused today and has clearer speech. On exam: Pt is awake, alert, Ox [facility]. Still mild OMS and perseverates commands. Markedly reduced Myoclonic jerks. No drift. Normal grasps and reflexes. Downgoing toes. Gait not tested. IMP: Toxic-metabolic encephalopathy-improving. Underlying OMS. LS compression fracture. Plan: Continue current regimen. No narcotics. Mobilize OOB to chair. Thank you very much, Jay Martinez MD
[2017-09-25] MEDS: ATORVASTATIN CA 20 MG TABLET (FP) PO SCH (22:14)
[2017-09-26] MEDS: FUROSEMIDE 40 MG TABLET (FP) PO SCH ×2 (05:42→13:21)
[2017-09-26] MEDS: INSULIN SLIDING SCALE (NOVOLOG) 1 VIAL SQ SCH ×4 (07:37→22:27)
[2017-09-26] MEDS: REPAGLINIDE 1 MG TABLET PO SCH ×4 (07:38→18:13)
[2017-09-26 07:39] LABS: BASO % 0.8 % (0-2.0); EOS % 5.4 % (0-4.5); HEMATOCRIT 29.3 % (32.4-45.2); HEMOGLOBIN 9.5 GM/dL (10.7-15.3); LYMPH % 13.7 % (8-40); MCH 28.7 pg (25.7-33.7); MCHC 32.6 g/dl (32.0-36.0); MEAN CELL VOLUME 88.1 fl (80-96); MEAN PLT VOLUME 9.5 fl (7.5-11.1); MONO % 6.5 % (3.8-10.2); NEUT % 73.6 % (42.8-82.8); PLATELET COUNT 143 K/MM3 (134-434); RBC 3.32 M/mm3 (3.60-5.2); RDW 17.7 % (11.6-15.6); WHITE BLOOD COUNT 8.6 K/mm3 (4.0-10.0)
[2017-09-26 08:10] LABS: ANION GAP 9 (8-16); BLOOD UREA NITROGEN 24 mg/dL (7-18); CALCIUM 8.2 mg/dL (8.5-10.1); CHLORIDE 105 mmol/L (98-107); CO2 31 mmol/L (21-32); GLUCOSE,RANDOM 142 mg/dL (74-106); POTASSIUM 3.6 mmol/L (3.5-5.1); SODIUM 145 mmol/L (136-145)
[2017-09-26] MEDS: FERROUS SO4 325 MG TABLET (FP) PO SCH ×2 (08:48→18:13)
[2017-09-26] MEDS: ALBUTEROL SO4 2.5/IPRATROPIUM 0.5 INH SOL 3 ML VIAL.NEB. NEB PRN (09:22)
[2017-09-26] MEDS: APIXABAN 5 MG TABLET PO SCH ×2 (09:48→22:27)
[2017-09-26] MEDS: LISINOPRIL 20 MG TABLET (FP) PO SCH (09:48)
[2017-09-26] MEDS: SERTRALINE HCL 50 MG TABLET (FP) PO SCH (09:49)
[2017-09-26] MEDS: PANTOPRAZOLE 40 MG TABLET (FP) PO SCH (09:49)
--- NOTE | 2017-09-26 10:31 | CON.CARD ---
Consult Consult Specialty:: Cardiology Referred by:: Hospitalist Reason for Consultation:: Cardiac evaluation - History of Present Illness Chief Complaint: Altered mental status. Bradycardia History of Present Illness: Patient is an 81 year old female well known to me with underlying history of CAD (non-obstructive), hypertension, hypercholesterolemia, diastolic LV dysfunction with history of congestive heart failure, mitral valve regurgitation , aortic valve stenosis, tricuspid valve regurgitation, pulmonary hypertension, persistent atrial fibrillation, type 2 diabetes mellitus, COPD, anemia, degenerative joint disease and UTIs presented this time after a fall at the [facility] with altered mental status. Patient had received antibiotics via PICC line and was completed on 09/22/17. Currently she is alert and oriented. She denies chest pain, shortness of breath or palpitations. She denies paroxysmal nocturnal dyspnea or orthopnea. She denies fever or chills. She denies nausea, vomiting, diarrhea or abdominal pain. She denies headache or lightheadedness. She was on Labetalol 400 mg BID and was bradycardic. Currently heart rate is in 60-70. - History Source History Provided By: Patient, Medical Record Limitations to Obtaining History: No Limitations - Past Medical History Cardio/Vascular: Yes: AFIB, Aortic Stenosis, CAD, CHF, HTN, Hyperlipdemia, Mitral Insufficiency, Murmur, Pulmonary Hypertension Pulmonary: Yes: COPD ...: No Musculoskeletal: Yes: Osteoarthritis (had hip and knee replacement, still with some healing problems ), Other Endocrine: Yes: Diabetes Mellitus - Past Surgical History Past Surgical History: Yes: Joint Replacement - Alcohol/Substance Use Hx Alcohol Use: No History of Substance Use: reports: None - Smoking History Smoking history: Never smoked Have you smoked in the past 12 months: No Aproximately how many cigarettes per day: 0 If you are a former smoker, when did you quit?: "when I was very young" Home Medications - Allergies Allergies/Adverse Reactions: Allergies Allergy/AdvReac Type Severity Reaction Status Date / Time ciprofloxacin [From Cipro] Allergy Verified 09/06/17 11:28 ciprofloxacin HCl Allergy Verified 09/06/17 11:28 [From Cipro] - Home Medications Home Medications: Ambulatory Orders Ferrous Sulfate 325 mg PO BID 12/29/16 Lisinopril [Zestril] 40 mg PO DAILY 12/29/16 Simvastatin 40 mg PO DAILY 12/29/16 Repaglinide [Prandin -] 1 mg PO TID 06/15/17 Albuterol 2.5/Ipratropium 0.5 [Duoneb -] 1 amp NEB Q6H PRN amp 06/19/17 Apixaban [Eliquis -] 2.5 mg PO BID 09/06/17 Insulin Glargine,Hum.rec.anlog [Lantus] 15 unit SQ DAILY 09/06/17 Omeprazole Magnesium [Prilosec Otc] 40 mg PO DAILY 09/06/17 Sertraline HCl [Zoloft -] 50 mg PO DAILY 09/09/17 Amlodipine Besylate [Norvasc -] 10 mg PO DAILY #30 tablet 09/12/17 Furosemide [Lasix -] 40 mg PO BID@0600,1400 tablet 09/12/17 Insulin Sliding Scale [Novolog Vial Sliding Scale -] 1 vial SQ ACHS units 09/12 Labetalol HCl [Normodyne -] 400 mg PO BID #60 tablet 09/12/17 Prednisone 10 mg PO ASDIR #30 tablet 09/12/17 Acetaminophen [Tylenol] 650 mg PO QID 09/24/17 Family Disease History - Family Disease History Family Disease History: Other: Daughter (alive and well) Review of Systems - Review of Systems Constitutional: denies: Chills, Fever Cardiovascular: denies: Chest Pain, Palpitations, Shortness of Breath Respiratory: denies: Cough, Hemoptysis, Orthopnea, PND, SOB, SOB on Exertion Gastrointestinal: denies: Abdominal Pain, Constipation, Diarrhea, Melena, Nausea , Rectal Bleeding, Vomiting Genitourinary: denies: Dysuria, Hematuria Musculoskeletal: reports: Joint Pain Neurological: reports: Weakness. denies: Dizziness, Headache, Numbness, Seizure , Syncope Endocrine: reports: No Symptoms Vital Signs: Vital Signs Temperature 98.9 F 09/26/17 06:00 Pulse Rate 66 09/26/17 06:00 Respiratory Rate 20 09/26/17 06:00 Blood Pressure 138/61 09/26/17 06:00 O2 Sat by Pulse Oximetry (%) 99 09/25/17 20:37 Constitutional: Yes: Well Nourished Eyes: Yes: PERRL HENT: Yes: Atraumatic Neck: Yes: Supple Respiratory: Yes: Diminished Gastrointestinal: Yes: Normal Bowel Sounds, Soft, Abdomen, Obese. No: Tenderness Cardiovascular: Yes: Pulse Irregular JVD: No Carotid Bruit: No PMI: Non-Displaced Heart Sounds: Yes: S1, S2 Murmur: Yes: Systolic Murmur, Grade 2 Edema: No - Other Data Labs, Other Data: CBC, BMP 09/26/17 06:45 09/26/17 06:45 INR, PTT INR 1.41 (0.82-1.09) H 09/23/17 14:05 Laboratory Results - last 24 hr 09/25/17 09/25/17 09/25/17 06:00 06:00 10:23 WBC RBC Hgb Hct MCV MCH MCHC RDW Plt Count MPV Neutrophils % Lymphocytes % Monocytes % Eosinophils % Basophils % Anticoagulation Therapy Puncture Site ABG pH ABG pCO2 at Pt Temp ABG pO2 at Pt Temp ABG HCO3 ABG O2 Sat (Measured) ABG O2 Content ABG Base Excess Dmitri Test O2 Delivery Device Oxygen Flow Rate Vent Mode Vent Rate Mechanical Rate Pressure Support Vent Sodium 144 Potassium 3.6 Chloride 103 Carbon Dioxide 30 Anion Gap 11 BUN 22 H Creatinine 1.1 H POC Glucometer 232 Random Glucose 128 H Calcium 8.1 L TSH 1.31 Cancelled 09/25/17 09/25/17 09/25/17 14:03 18:30 21:09 WBC RBC Hgb Hct MCV MCH MCHC RDW Plt Count MPV Neutrophils % Lymphocytes % Monocytes % Eosinophils % Basophils % Anticoagulation Therapy No Result Required. Puncture Site Left radial ABG pH 7.41 ABG pCO2 at Pt Temp 49.1 H ABG pO2 at Pt Temp 78.0 ABG HCO3 30.6 H ABG O2 Sat (Measured) 95.6 ABG O2 Content 13.3 L ABG Base Excess 5.6 H Dmitri Test Positive O2 Delivery Device Nasal Oxygen Flow Rate 2l Vent Mode No Result Required. Vent Rate No Result Required. Mechanical Rate No Result Required. Pressure Support Vent No Result Required. Sodium Potassium Chloride Carbon Dioxide Anion Gap BUN Creatinine POC Glucometer 226 191 Random Glucose Calcium TSH 09/26/17 09/26/17 09/26/17 05:43 06:45 06:45 WBC 8.6 RBC 3.32 L Hgb 9.5 L Hct 29.3 L MCV 88.1 MCH 28.7 MCHC 32.6 RDW 17.7 H Plt Count 143 MPV 9.5 Neutrophils % 73.6 Lymphocytes % 13.7 Monocytes % 6.5 Eosinophils % 5.4 H Basophils % 0.8 Anticoagulation Therapy Puncture Site ABG pH ABG pCO2 at Pt Temp ABG pO2 at Pt Temp ABG HCO3 ABG O2 Sat (Measured) ABG O2 Content ABG Base Excess Dmitri Test O2 Delivery Device Oxygen Flow Rate Vent Mode Vent Rate Mechanical Rate Pressure Support Vent Sodium 145 Potassium 3.6 Chloride 105 Carbon Dioxide 31 Anion Gap 9 BUN 24 H Creatinine 1.0 POC Glucometer 145 Random Glucose 142 H Calcium 8.2 L TSH Atrial fibrillation with LAFB Imaging - Results Chest X-ray: Report Reviewed (Cardiomegaly) X-ray: Report Reviewed (AXR noted) Cat Scan: Report Reviewed (Head CT noted) MRI: Report Reviewed (Compression in vertebra lumbar) EKG: Report Reviewed Problem List - Problems (1) Acute on chronic diastolic (congestive) heart failure Code(s): I50.33 - ACUTE ON CHRONIC DIASTOLIC (CONGESTIVE) HEART FAILURE (2) [id number]-[id number] kidney injury Code(s): N17.9 - ACUTE KIDNEY FAILURE, UNSPECIFIED; N18.9 - CHRONIC KIDNEY DISEASE, UNSPECIFIED Qualifiers: Acute renal failure type: unspecified Chronic kidney disease stage: stage 2 (mild) Qualified Code(s): N17.9 - Acute kidney failure, unspecified; N18.2 - Chronic kidney disease, stage 2 (mild); N18.2 - Chronic kidney disease, stage 2 (mild) (3) Anemia Code(s): D64.9 - ANEMIA, UNSPECIFIED Qualifiers: Anemia type: unspecified type Qualified Code(s): D64.9 - Anemia, unspecified (4) HTN (hypertension) Code(s): I10 - ESSENTIAL (PRIMARY) HYPERTENSION Qualifiers: Hypertension type: essential hypertension Qualified Code(s): I10 - Essential (primary) hypertension (5) UTI (urinary tract infection) Code(s): N39.0 - URINARY TRACT INFECTION, SITE NOT SPECIFIED Qualifiers: Urinary tract infection type: site unspecified Hematuria presence: without hematuria Qualified Code(s): N39.0 - Urinary tract infection, site not specified (6) Aortic valve stenosis Code(s): I35.0 - NONRHEUMATIC AORTIC (VALVE) STENOSIS Qualifiers: Cardiac valve disease etiology: nonrheumatic Qualified Code(s): I35.0 - Nonrheumatic aortic (valve) stenosis (7) Atrial fibrillation Code(s): I48.91 - UNSPECIFIED ATRIAL FIBRILLATION Qualifiers: Atrial fibrillation type: persistent Qualified Code(s): I48.1 - Persistent atrial fibrillation (8) COPD (chronic obstructive pulmonary disease) Code(s): J44.9 - CHRONIC OBSTRUCTIVE PULMONARY DISEASE, UNSPECIFIED Qualifiers: COPD type: unspecified COPD Qualified Code(s): J44.9 - Chronic obstructive pulmonary disease, unspecified (9) Diabetes mellitus Code(s): E11.9 - TYPE 2 DIABETES MELLITUS WITHOUT COMPLICATIONS Qualifiers: Diabetes mellitus type: type 2 Diabetes mellitus exterminator insulin use: without intermediate use Diabetes mellitus complication status: without complication Qualified Code(s): E11.9 - Type 2 diabetes mellitus without complications (10) Diastolic dysfunction Code(s): I51.9 - HEART DISEASE, UNSPECIFIED (11) Hypercholesterolemia Code(s): E78.00 - PURE HYPERCHOLESTEROLEMIA, UNSPECIFIED (12) Mitral valve regurgitation Code(s): I34.0 - NONRHEUMATIC MITRAL (VALVE) INSUFFICIENCY Qualifiers: Cardiac valve disease etiology: nonrheumatic Qualified Code(s): I34.0 - Nonrheumatic mitral (valve) insufficiency (13) Tricuspid valve regurgitation Code(s): I07.1 - RHEUMATIC TRICUSPID INSUFFICIENCY Qualifiers: Cardiac valve disease etiology: nonrheumatic Qualified Code(s): I36.1 - Nonrheumatic tricuspid (valve) insufficiency Assessment/Plan 1. Acute on chronic diastolic LV dysfunction with class 1-2 NYHA classification LV failure, currently euvolemic/compensated 2. Altered mental status - currently improved 3. COPD 4. Persistent atrial fibrillation with [id number] score of 7 on Eliquis 5. Aortic valve stenosis 6. Mitral valve regurgitation 7. Pulmonary hypertension 8. Type 2 diabetes mellitus 9. Hypertension 10. Hypercholesterolemia 11. Acute on chronic kidney disease 12. Anemia 13. History of UTI 14. Degenerative joint disease post right THR PLAN: 1. Reduce Labetalol to 200 BID or as per BP and HR 2. Continue Lisinopril and Amlodipine 3. Continue Eliquis 4. Continue statin 5. Continue monitor neurologic status 6. Continue diuretics Further plans are to follow Armen Stewart MD
[2017-09-26] MEDS: amLODIPine BESYLATE 10 MG TABLET (FP) PO SCH (10:48)
[2017-09-26] MEDS: LABETALOL HCL 200 MG TABLET (FP) PO SCH ×2 (10:50→22:30)
--- NOTE | 2017-09-26 11:35 | PN ---
Physical Exam: SUBJECTIVE: Patient seen and examined. She is much improved today, she herself feels better and more like herself. Mental status returned to baseline line. Denies abd pain, fever, chills. OBJECTIVE: Vital Signs Period Temp Pulse Resp BP Sys/Mo Pulse Ox Last 24 Hr 97.6 F-99.9 F 44-70 16-20 121-153/44-77 99-99 PE Neuro: alert, awake, cn 2-12intact, speaking clearly, oriented x4 Pulm: bi basilar crackles CV: s1 s2 rrr 2/6 murmur Abd: s nt nd + bs Ext: trace le edema, warm Laboratory Results - last 24 hr 09/25/17 09/25/17 09/25/17 06:00 06:00 10:23 WBC RBC Hgb Hct MCV MCH MCHC RDW Plt Count MPV Neutrophils % Lymphocytes % Monocytes % Eosinophils % Basophils % Anticoagulation Therapy Puncture Site ABG pH ABG pCO2 at Pt Temp ABG pO2 at Pt Temp ABG HCO3 ABG O2 Sat (Measured) ABG O2 Content ABG Base Excess Dmitri Test O2 Delivery Device Oxygen Flow Rate Vent Mode Vent Rate Mechanical Rate Pressure Support Vent Sodium 144 Potassium 3.6 Chloride 103 Carbon Dioxide 30 Anion Gap 11 BUN 22 H Creatinine 1.1 H POC Glucometer 232 Random Glucose 128 H Calcium 8.1 L TSH 1.31 Cancelled 09/25/17 09/25/17 09/25/17 14:03 18:30 21:09 WBC RBC Hgb Hct MCV MCH MCHC RDW Plt Count MPV Neutrophils % Lymphocytes % Monocytes % Eosinophils % Basophils % Anticoagulation Therapy No Result Required. Puncture Site Left radial ABG pH 7.41 ABG pCO2 at Pt Temp 49.1 H ABG pO2 at Pt Temp 78.0 ABG HCO3 30.6 H ABG O2 Sat (Measured) 95.6 ABG O2 Content 13.3 L ABG Base Excess 5.6 H Dmitri Test Positive O2 Delivery Device Nasal Oxygen Flow Rate 2l Vent Mode No Result Required. Vent Rate No Result Required. Mechanical Rate No Result Required. Pressure Support Vent No Result Required. Sodium Potassium Chloride Carbon Dioxide Anion Gap BUN Creatinine POC Glucometer 226 191 Random Glucose Calcium TSH 09/26/17 09/26/17 09/26/17 05:43 06:45 06:45 WBC 8.6 RBC 3.32 L Hgb 9.5 L Hct 29.3 L MCV 88.1 MCH 28.7 MCHC 32.6 RDW 17.7 H Plt Count 143 MPV 9.5 Neutrophils % 73.6 Lymphocytes % 13.7 Monocytes % 6.5 Eosinophils % 5.4 H Basophils % 0.8 Anticoagulation Therapy Puncture Site ABG pH ABG pCO2 at Pt Temp ABG pO2 at Pt Temp ABG HCO3 ABG O2 Sat (Measured) ABG O2 Content ABG Base Excess Dmitri Test O2 Delivery Device Oxygen Flow Rate Vent Mode Vent Rate Mechanical Rate Pressure Support Vent Sodium 145 Potassium 3.6 Chloride 105 Carbon Dioxide 31 Anion Gap 9 BUN 24 H Creatinine 1.0 POC Glucometer 145 Random Glucose 142 H Calcium 8.2 L TSH Active Medications Generic Name Dose Route Start Last Admin Trade Name Freq PRN Reason Stop Dose Admin Albuterol/Ipratropium 1 amp 09/23/17 17:55 09/26/17 09:22 Duoneb - NEB 1 amp Q6H PRN Administration SHORTNESS OF BREATH Amlodipine Besylate 10 mg 09/24/17 10:00 09/25/17 10:44 Norvasc - PO 10 mg DAILY PK Administration Apixaban 5 mg 09/23/17 22:00 09/25/17 22:14 Eliquis - PO 5 mg BID PK Administration Atorvastatin Calcium 20 mg 09/23/17 22:00 09/25/17 22:14 Lipitor - PO 20 mg HS PK Administration Ferrous Sulfate 325 mg 09/24/17 08:00 09/25/17 18:16 Feosol - PO 325 mg BIDWM PK Administration Furosemide 40 mg 09/24/17 06:00 09/26/17 05:42 Lasix - PO 40 mg BID@0600,1400 PK Administration Insulin Aspart 1 vial 09/24/17 13:54 09/26/17 07:37 Novolog Vial Sliding Scale - SQ Not Given ACHS PK Protocol Lactulose 20 gm 09/25/17 10:18 Cephulac (Oral Use) PO ONCE PRN CONSTIPATION Lisinopril 40 mg 09/24/17 10:00 09/25/17 10:44 Prinivil PO 40 mg DAILY PK Administration Pantoprazole Sodium 40 mg 09/24/17 10:00 09/25/17 10:44 Protonix - PO 40 mg DAILY PK Administration Polyethylene Glycol 17 gm 09/25/17 10:30 09/25/17 10:48 Miralax (For Daily Use) - PO 17 gm DAILY PK Administration Repaglinide 1 mg 09/24/17 07:00 09/26/17 07:38 Prandin - PO Not Given TIDAC PK Sertraline HCl 50 mg 09/24/17 10:00 09/25/17 10:44 Zoloft - PO 50 mg DAILY PK Administration Assessment: 81 year old female with PMHx of HTN, HLD, non-obstructive CAD, diastolic heart failure, significant cardiac valvular pathology, pulmonary HTN, persistent atrial fibrillation on Eliquis, asthma/COPD, IDDM, CKD, anemia, skin cancer, s/p right hip replacement 01/2017, and hemorrhoids admitted s/p fall at the [facility] and now with altered mental status. Plan: 1. Acute metabolic encephalopathy - Improving, returned to baseline today - PICC line cx pending 2. Acute abdominal distention - Possibly d/t constipation; + BM - Continue miralax daily 3. s/p Fall - MRI LS spine noted, chronic changes - PT eval 4. Chronic diastolic heart failure - No evidence of acute exacerbation - Continue Lasix 40mg BID 5. HTN, Bradycardia - Continue Norvasc 10mg daily - Continue Lisinopril 40mg daily - Decrease Labetolol 200mg BID for bradycardia 6. A.fib - Continue Eliquis 5mg po bid 7. CKD - Cr at baseline 8. COPD - No evidence of exacerbation at this time - ABG noted 9. Anemia - Continue ferrous sulfate 9. DM - BGM, ISS ACHS 10. Hypernatremia - Resolved Visit type - Emergency Visit Emergency Visit: Yes ED Registration Date: 09/23/17 Care time: The patient presented to the Emergency Department on the above date and was hospitalized for further evaluation of their emergent condition. - New Patient This patient is new to me today: No - Critical Care Critical Care patient: No
[2017-09-26] MEDS: POLYETHYLENE GLYCOL 3350 119 GM BTL PO SCH (12:48)
--- NOTE | 2017-09-26 14:36 | PN ---
Progress Note, Physician History of Present Illness: patient looking much better speech clear much better - Current Medication List Current Medications: Active Medications Albuterol/Ipratropium (Duoneb -) 1 amp NEB Q6H PRN PRN Reason: SHORTNESS OF BREATH Last Admin: 09/26/17 09:22 Dose: 1 amp Amlodipine Besylate (Norvasc -) 10 mg PO DAILY [facility] Last Admin: 09/26/17 10:48 Dose: 10 mg Apixaban (Eliquis -) 5 mg PO BID [facility] Last Admin: 09/26/17 09:48 Dose: 5 mg Atorvastatin Calcium (Lipitor -) 20 mg PO HS [facility] Last Admin: 09/25/17 22:14 Dose: 20 mg Ferrous Sulfate (Feosol -) 325 mg PO BIDWM [facility] Last Admin: 09/26/17 08:48 Dose: 325 mg Furosemide (Lasix -) 40 mg PO BID@0600,1400 [facility] Last Admin: 09/26/17 13:21 Dose: 40 mg Insulin Aspart (Novolog Vial Sliding Scale -) 1 vial SQ ACHS [facility] PRN Reason: Protocol Last Admin: 09/26/17 13:05 Dose: 4 units Labetalol HCl (Normodyne -) 200 mg PO BID [facility] Lactulose (Cephulac (Oral Use)) 20 gm PO ONCE PRN PRN Reason: CONSTIPATION Lisinopril (Prinivil) 40 mg PO DAILY [facility] Last Admin: 09/26/17 09:48 Dose: 40 mg Pantoprazole Sodium (Protonix -) 40 mg PO DAILY [facility] Last Admin: 09/26/17 09:49 Dose: 40 mg Polyethylene Glycol (Miralax (For Daily Use) -) 17 gm PO DAILY [facility] Last Admin: 09/26/17 12:48 Dose: 17 gm Repaglinide (Prandin -) 1 mg PO TIDAC [facility] Last Admin: 09/26/17 13:05 Dose: 1 mg Sertraline HCl (Zoloft -) 50 mg PO DAILY [facility] Last Admin: 09/26/17 09:49 Dose: 50 mg - Objective Vital Signs: Vital Signs Temperature 98.9 F 09/26/17 06:00 Pulse Rate 66 09/26/17 06:00 Respiratory Rate 20 09/26/17 06:00 Blood Pressure 138/61 09/26/17 06:00 O2 Sat by Pulse Oximetry (%) 99 09/25/17 20:37 Constitutional: Yes: No Distress, Calm Cardiovascular: Yes: Regular Rate and Rhythm Respiratory: Yes: Regular, CTA Bilaterally Gastrointestinal: Yes: Normal Bowel Sounds, Soft Musculoskeletal: Yes: WNL Extremities: Yes: WNL Neurological: Yes: Alert, Oriented Psychiatric: Yes: Alert, Oriented Labs: CBC, BMP 09/26/17 06:45 09/26/17 06:45 INR, PTT INR 1.41 (0.82-1.09) H 09/23/17 14:05 Assessment/Plan looking at the patient multiple possibilities 1. Acute metabolic encephalopathy 2. Fall 3. Chronic diastolic heart failure 4. HTN 5. A.fib 6. CKD 7. COPD 8. Anemia 9. DM patient speech already improving,thinks fall might have caused this plan patient improving speech much clear doing well continue to monitor no abx
[2017-09-26] MEDS ORDERED: ACETAMINOPHEN 325 MG TABLET (FP) PO ONE (19:45)
[2017-09-26] MEDS: ATORVASTATIN CA 20 MG TABLET (FP) PO SCH (22:27)
[2017-09-27] MEDS ORDERED: PT OWN MED DRAWER 7, Y5N ONE ×2 (06:25→17:25)
[2017-09-27] MEDS: FUROSEMIDE 40 MG TABLET (FP) PO SCH ×2 (06:58→14:24)
[2017-09-27] MEDS: INSULIN SLIDING SCALE (NOVOLOG) 1 VIAL SQ SCH ×3 (06:58→16:48)
[2017-09-27] MEDS: REPAGLINIDE 1 MG TABLET PO SCH ×3 (07:22→16:48)
--- NOTE | 2017-09-27 08:53 | PN ---
Progress Note, Physician History of Present Illness: Sensorium has improved to baseline, no recurrent falls. - Current Medication List Current Medications: Active Medications Albuterol/Ipratropium (Duoneb -) 1 amp NEB Q6H PRN PRN Reason: SHORTNESS OF BREATH Last Admin: 09/26/17 09:22 Dose: 1 amp Amlodipine Besylate (Norvasc -) 10 mg PO DAILY [facility] Last Admin: 09/26/17 10:48 Dose: 10 mg Apixaban (Eliquis -) 5 mg PO BID [facility] Last Admin: 09/26/17 22:27 Dose: 5 mg Atorvastatin Calcium (Lipitor -) 20 mg PO HS [facility] Last Admin: 09/26/17 22:27 Dose: 20 mg Ferrous Sulfate (Feosol -) 325 mg PO BIDWM [facility] Last Admin: 09/26/17 18:13 Dose: 325 mg Furosemide (Lasix -) 40 mg PO BID@0600,1400 [facility] Last Admin: 09/27/17 06:58 Dose: 40 mg Insulin Aspart (Novolog Vial Sliding Scale -) 1 vial SQ ACHS [facility] PRN Reason: Protocol Last Admin: 09/27/17 06:58 Dose: Not Given Labetalol HCl (Normodyne -) 200 mg PO BID [facility] Last Admin: 09/26/17 22:30 Dose: 200 mg Lactulose (Cephulac (Oral Use)) 20 gm PO ONCE PRN PRN Reason: CONSTIPATION Lisinopril (Prinivil) 40 mg PO DAILY [facility] Last Admin: 09/26/17 09:48 Dose: 40 mg Pantoprazole Sodium (Protonix -) 40 mg PO DAILY [facility] Last Admin: 09/26/17 09:49 Dose: 40 mg Polyethylene Glycol (Miralax (For Daily Use) -) 17 gm PO DAILY [facility] Last Admin: 09/26/17 12:48 Dose: 17 gm Repaglinide (Prandin -) 1 mg PO TIDAC [facility] Last Admin: 09/27/17 07:22 Dose: Not Given Sertraline HCl (Zoloft -) 50 mg PO DAILY [facility] Last Admin: 09/26/17 09:49 Dose: 50 mg - Objective Vital Signs: Vital Signs Temperature 98 F 09/27/17 08:21 Pulse Rate 54 L 09/27/17 08:21 Respiratory Rate 18 05/04/18 08:21 Blood Pressure 157/69 05/04/18 08:21 O2 Sat by Pulse Oximetry (%) 98 09/26/17 21:00 Constitutional: Yes: No Distress, Calm Neck: Yes: Supple Cardiovascular: Yes: Pulse Irregular Respiratory: Yes: Regular, Diminished, On Nasal O2 Gastrointestinal: Yes: Normal Bowel Sounds, Soft Edema: No Labs: CBC, BMP 09/26/17 06:45 09/26/17 06:45 INR, PTT INR 1.41 (0.82-1.09) H 09/23/17 14:05 - ....Imaging EKG: Report Reviewed (Tele: Rate-controlled afib) Problem List - Problems (1) Diastolic dysfunction without heart failure Code(s): I51.9 - HEART DISEASE, UNSPECIFIED (2) Chronic kidney disease (CKD) Code(s): N18.9 - CHRONIC KIDNEY DISEASE, UNSPECIFIED Qualifiers: Chronic kidney disease stage: stage 2 (mild) Qualified Code(s): N18.2 - Chronic kidney disease, stage 2 (mild) (3) Anemia Code(s): D64.9 - ANEMIA, UNSPECIFIED Qualifiers: Anemia type: unspecified type Qualified Code(s): D64.9 - Anemia, unspecified (4) HTN (hypertension) Code(s): I10 - ESSENTIAL (PRIMARY) HYPERTENSION Qualifiers: Hypertension type: essential hypertension Qualified Code(s): I10 - Essential (primary) hypertension (5) Aortic valve stenosis Code(s): I35.0 - NONRHEUMATIC AORTIC (VALVE) STENOSIS Qualifiers: Cardiac valve disease etiology: nonrheumatic Qualified Code(s): I35.0 - Nonrheumatic aortic (valve) stenosis (6) Atrial fibrillation Code(s): I48.91 - UNSPECIFIED ATRIAL FIBRILLATION Qualifiers: Atrial fibrillation type: persistent Qualified Code(s): I48.1 - Persistent atrial fibrillation (7) COPD (chronic obstructive pulmonary disease) Code(s): J44.9 - CHRONIC OBSTRUCTIVE PULMONARY DISEASE, UNSPECIFIED Qualifiers: COPD type: unspecified COPD Qualified Code(s): J44.9 - Chronic obstructive pulmonary disease, unspecified (8) Diabetes mellitus Code(s): E11.9 - TYPE 2 DIABETES MELLITUS WITHOUT COMPLICATIONS Qualifiers: Diabetes mellitus type: type 2 Diabetes mellitus retirement insulin use: without retirement use Diabetes mellitus complication status: without complication Qualified Code(s): E11.9 - Type 2 diabetes mellitus without complications (9) Hypercholesterolemia Code(s): E78.00 - PURE HYPERCHOLESTEROLEMIA, UNSPECIFIED (10) Mitral valve regurgitation Code(s): I34.0 - NONRHEUMATIC MITRAL (VALVE) INSUFFICIENCY Qualifiers: Cardiac valve disease etiology: nonrheumatic Qualified Code(s): I34.0 - Nonrheumatic mitral (valve) insufficiency (11) Tricuspid valve regurgitation Code(s): I07.1 - RHEUMATIC TRICUSPID INSUFFICIENCY Qualifiers: Cardiac valve disease etiology: nonrheumatic Qualified Code(s): I36.1 - Nonrheumatic tricuspid (valve) insufficiency Assessment/Plan 1. LV diastolic dysfunction, currently euvolemic/compensated 2. Altered mental status referable to toxic metabolic encephelopathy - resolved 3. COPD 4. Persistent atrial fibrillation with [id number] score of 7 on Eliquis 5. Aortic valve stenosis 6. Mitral valve regurgitation 7. Pulmonary hypertension 8. Type 2 diabetes mellitus 9. Hypertension 10. Hypercholesterolemia 11. Acute on chronic kidney disease 12. Anemia 13. History of UTI 14. Degenerative joint disease post right THR 15. CKD PLAN: 1. Continue Labetalol 200 BID or as per BP and HR 2. Continue Lisinopril 40 qd and Amlodipine 10 qd 3. Continue Eliquis 5 bid 4. Continue Lipitor 20 qhs 5. Continue monitor neurologic status 6. Continue Lasix 40 bid 7. GI prophylaxis 8. D/c planning
[2017-09-27] MEDS: LISINOPRIL 20 MG TABLET (FP) PO SCH (10:45)
[2017-09-27] MEDS: amLODIPine BESYLATE 10 MG TABLET (FP) PO SCH (10:45)
[2017-09-27] MEDS: PANTOPRAZOLE 40 MG TABLET (FP) PO SCH (10:46)
[2017-09-27] MEDS: POLYETHYLENE GLYCOL 3350 119 GM BTL PO SCH (10:46)
[2017-09-27] MEDS: SERTRALINE HCL 50 MG TABLET (FP) PO SCH (10:46)
[2017-09-27] MEDS: FERROUS SO4 325 MG TABLET (FP) PO SCH ×2 (10:46→17:19)
[2017-09-27] MEDS: APIXABAN 5 MG TABLET PO SCH (10:46)
[2017-09-27] MEDS: LABETALOL HCL 200 MG TABLET (FP) PO SCH (10:47)
[2017-09-27] MEDS ORDERED: INSULIN (NOVOLOG) ASPART 100 UNITS/ML 10ML VIAL ONE (11:01)
[2017-09-27 11:11] LABS: BASO % 0.9 % (0-2.0); EOS % 5.3 % (0-4.5); HEMATOCRIT 29.6 % (32.4-45.2); HEMOGLOBIN 9.7 GM/dL (10.7-15.3); LYMPH % 13.9 % (8-40); MCH 28.7 pg (25.7-33.7); MCHC 32.9 g/dl (32.0-36.0); MEAN CELL VOLUME 87.4 fl (80-96); MEAN PLT VOLUME 9.1 fl (7.5-11.1); MONO % 7.4 % (3.8-10.2); NEUT % 72.5 % (42.8-82.8); PLATELET COUNT 139 K/MM3 (134-434); RBC 3.39 M/mm3 (3.60-5.2); RDW 17.5 % (11.6-15.6)
[2017-09-27 11:32] LABS: ALBUMIN 2.8 g/dl (3.4-5.0); ANION GAP 3 (8-16); BLOOD UREA NITROGEN 26 mg/dL (7-18); CALCIUM 8.3 mg/dL (8.5-10.1); CHLORIDE 105 mmol/L (98-107); CO2 35 mmol/L (21-32); GLUCOSE,RANDOM 199 mg/dL (74-106); MAGNESIUM 1.9 mg/dL (1.8-2.4); POTASSIUM 3.8 mmol/L (3.5-5.1); SODIUM 143 mmol/L (136-145)
[2017-09-27 11:38] LABS: ALK PHOS 49 U/L (45-117); BILIRUBIN,TOTAL 0.5 mg/dL (0.2-1.0); SGOT/AST 10 U/L (15-37); SGPT/ALT 15 U/L (12-78); TOT PROT 5.2 g/dl (6.4-8.2)
--- NOTE | 2017-09-27 15:16 | PN ---
Progress Note, Physician History of Present Illness: looking much better no complaints speaking clearly - Current Medication List Current Medications: Active Medications Albuterol/Ipratropium (Duoneb -) 1 amp NEB Q6H PRN PRN Reason: SHORTNESS OF BREATH Last Admin: 09/26/17 09:22 Dose: 1 amp Amlodipine Besylate (Norvasc -) 10 mg PO DAILY [facility] Last Admin: 09/27/17 10:45 Dose: 10 mg Apixaban (Eliquis -) 5 mg PO BID [facility] Last Admin: 09/27/17 10:46 Dose: 5 mg Atorvastatin Calcium (Lipitor -) 20 mg PO HS [facility] Last Admin: 09/26/17 22:27 Dose: 20 mg Ferrous Sulfate (Feosol -) 325 mg PO BIDWM [facility] Last Admin: 09/27/17 10:46 Dose: 325 mg Furosemide (Lasix -) 40 mg PO BID@0600,1400 [facility] Last Admin: 09/27/17 14:24 Dose: 40 mg Insulin Aspart (Novolog Vial Sliding Scale -) 1 vial SQ ACHS [facility] PRN Reason: Protocol Last Admin: 09/27/17 11:02 Dose: 4 units Labetalol HCl (Normodyne -) 200 mg PO BID [facility] Last Admin: 09/27/17 10:47 Dose: 200 mg Lactulose (Cephulac (Oral Use)) 20 gm PO ONCE PRN PRN Reason: CONSTIPATION Lisinopril (Prinivil) 40 mg PO DAILY [facility] Last Admin: 09/27/17 10:45 Dose: 40 mg Pantoprazole Sodium (Protonix -) 40 mg PO DAILY [facility] Last Admin: 09/27/17 10:46 Dose: 40 mg Polyethylene Glycol (Miralax (For Daily Use) -) 17 gm PO DAILY [facility] Last Admin: 09/27/17 10:46 Dose: 17 gm Repaglinide (Prandin -) 1 mg PO TIDAC [facility] Last Admin: 09/27/17 10:53 Dose: 1 mg Sertraline HCl (Zoloft -) 50 mg PO DAILY [facility] Last Admin: 09/27/17 10:46 Dose: 50 mg - Objective Vital Signs: Vital Signs Temperature 98 F 09/27/17 14:14 Pulse Rate 66 09/27/17 14:14 Respiratory Rate 18 09/27/17 14:14 Blood Pressure 132/63 09/27/17 14:14 O2 Sat by Pulse Oximetry (%) 96 09/27/17 08:00 Constitutional: Yes: No Distress, Calm Cardiovascular: Yes: Regular Rate and Rhythm Respiratory: Yes: Regular, CTA Bilaterally Gastrointestinal: Yes: Normal Bowel Sounds, Soft Musculoskeletal: Yes: WNL Extremities: Yes: WNL Neurological: Yes: Alert, Oriented Psychiatric: Yes: Alert, Oriented Labs: CBC, BMP 09/27/17 10:41 09/27/17 10:41 INR, PTT INR 1.41 (0.82-1.09) H 09/23/17 14:05 Assessment/Plan looking at the patient multiple possibilities 1. Acute metabolic encephalopathy 2. Fall 3. Chronic diastolic heart failure 4. HTN 5. A.fib 6. CKD 7. COPD 8. Anemia 9. DM patient speech already improving,thinks fall might have caused this plan patient improving speech much clear doing well continue to monitor no abx
--- NOTE | 2017-09-27 15:53 | DS ---
Physical Exam: SUBJECTIVE: Patient seen and examined at the bedside. Feels well, no pain. OBJECTIVE: Discharge today Vital Signs Period Temp Pulse Resp BP Sys/Mo Pulse Ox Last 24 Hr 97.3 F-98.3 F 54-99 18-20 123-179/54-90 96-98 PHYSICAL EXAM GENERAL: The patient is awake, alert, in no acute distress HEAD: Normal with no signs of trauma. EYES: PERRL, extraocular movements intact, sclera anicteric, conjunctiva clear. ENT: Ears normal, nares patent, oropharynx clear without exudates, moist mucous membranes. NECK: Trachea midline, full range of motion, supple. LUNGS: Breath sounds equal, clear to auscultation bilaterally HEART: irregular heart rate ABDOMEN: Soft, nontender, nondistended, normoactive bowel sounds, no guarding, no rebound, no hepatosplenomegaly, no masses. LABS Laboratory Results - last 24 hr 09/26/17 09/26/17 09/27/17 18:15 22:24 06:57 WBC RBC Hgb Hct MCV MCH MCHC RDW Plt Count MPV Neutrophils % Lymphocytes % Monocytes % Eosinophils % Basophils % Sodium Potassium Chloride Carbon Dioxide Anion Gap BUN Creatinine Creat Clearance w eGFR POC Glucometer 190 150 135 Random Glucose Calcium Magnesium Total Bilirubin AST ALT Alkaline Phosphatase Total Protein Albumin 09/27/17 09/27/17 09/27/17 10:41 10:41 10:51 WBC 7.0 RBC 3.39 L Hgb 9.7 L Hct 29.6 L MCV 87.4 MCH 28.7 MCHC 32.9 RDW 17.5 H Plt Count 139 MPV 9.1 Neutrophils % 72.5 Lymphocytes % 13.9 Monocytes % 7.4 Eosinophils % 5.3 H Basophils % 0.9 Sodium 143 Potassium 3.8 Chloride 105 Carbon Dioxide 35 H Anion Gap 3 L BUN 26 H Creatinine 1.0 Creat Clearance w eGFR 53.08 POC Glucometer 212 Random Glucose 199 H Calcium 8.3 L Magnesium 1.9 Total Bilirubin 0.5 D AST 10 L ALT 15 Alkaline Phosphatase 49 Total Protein 5.2 L Albumin 2.8 L HOSPITAL COURSE: Date of Admission:09/23/17 Date of Discharge: 09/27/17 Patient is an 81 year old female with a significant past medical history of hypertension, hyperlipidemia, non-obstructive CAD, diastolic heart failure, significant cardiac valvular pathology, pulmonary HTN, persistent atrial fibrillation on Eliquis, asthma, COPD, diabetes, CKD, anemia, skin cancer, 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 Patient was admitted with altered mental status on 09/23/2017 s/p fall at the nursing facility. ID: Acute metabolic encephalopathy, resolved Mental status improved during hospitalization PICC line cultures no growth x 24 hours vitals stable, no fevers, WBC within normal limits ID saw patient, no antibiotics ordered Blood and urine cultures negative GI: Abdominal distention, improved On Miralax Monitor intake and output Ortho: Fall Imaging reviewed, showed chronic changes Continue PT at nursing facility Head CT negative CV: Chronic diastolic heart failure On Lasix 40mg BID Hypertension/Bradycardia Controlled On Amlodopine 10mg daily Lisinopril 40mg daily Labetolol 200mg BID, recently decreased Atrial fibrillation, chronic Eliquis 5mg po bid Monitor in the setting of recent fall CKD, baseline Pulm: COPD, history Tolerating room air Oxygen PRN Heme: Anemia, chronic On ferrous sulfate Endocrine: Diabetes Mellitus, chronic Monitor BGMs with Novolog SS and Long acting Disposition: full code, discharge back to [facility] [place]. Fall risk. Minutes to complete discharge: 60 Discharge Summary Reason For Visit: SEPSIS DUE TO PNA Current Active Problems Chronic kidney disease (CKD) (Acute) Diastolic dysfunction without heart failure (Acute) Sepsis due to pneumonia (Acute) Condition: Improved - Instructions Referrals: Arvind Ravi MD [Staff Physician] - 1 Week Disposition: [facility] - Home Medications Comprehensive Discharge Medication List: Ambulatory Orders Ferrous Sulfate 325 mg PO BID 12/29/16 Lisinopril [Zestril] 40 mg PO DAILY 12/29/16 Simvastatin 40 mg PO DAILY 12/29/16 Repaglinide [Prandin -] 1 mg PO TID 06/15/17 Albuterol 2.5/Ipratropium 0.5 [Duoneb -] 1 amp NEB Q6H PRN amp 06/19/17 Insulin Glargine,Hum.rec.anlog [Lantus] 15 unit SQ DAILY 09/06/17 Omeprazole Magnesium [Prilosec Otc] 40 mg PO DAILY 09/06/17 Sertraline HCl [Zoloft -] 50 mg PO DAILY 09/09/17 Amlodipine Besylate [Norvasc -] 10 mg PO DAILY #30 tablet 09/12/17 Furosemide [Lasix -] 40 mg PO BID@0600,1400 tablet 09/12/17 Insulin Sliding Scale [Novolog Vial Sliding Scale -] 1 vial SQ ACHS units 09/12 Acetaminophen [Tylenol] 650 mg PO QID 09/24/17 Apixaban [Eliquis -] 5 mg PO BID #0 tablet 09/27/17 Labetalol HCl [Normodyne -] 200 mg PO BID tablet 09/27/17 Polyethylene Glycol 3350 [Miralax 119 gm Btl -] 17 gm PO DAILY bottle 09/27/17 This patient is new to me today: Yes Date on this admission: 09/27/17 Emergency Visit: Yes ED Registration Date: 09/23/17 Care time: The patient presented to the Emergency Department on the above date and was hospitalized for further evaluation of their emergent condition. Critical Care patient: No - Discharge Referral Referred to [facility] No
--- NOTE | 2017-09-27 16:34 | PN ---
Progress Note, Physician History of Present Illness: doing well no issues feeling very cold speaking more clearly - Current Medication List Current Medications: Active Medications Albuterol/Ipratropium (Duoneb -) 1 amp NEB Q6H PRN PRN Reason: SHORTNESS OF BREATH Last Admin: 09/26/17 09:22 Dose: 1 amp Amlodipine Besylate (Norvasc -) 10 mg PO DAILY [facility] Last Admin: 09/27/17 10:45 Dose: 10 mg Apixaban (Eliquis -) 5 mg PO BID [facility] Last Admin: 09/27/17 10:46 Dose: 5 mg Atorvastatin Calcium (Lipitor -) 20 mg PO HS [facility] Last Admin: 09/26/17 22:27 Dose: 20 mg Ferrous Sulfate (Feosol -) 325 mg PO BIDWM [facility] Last Admin: 09/27/17 10:46 Dose: 325 mg Furosemide (Lasix -) 40 mg PO BID@0600,1400 [facility] Last Admin: 09/27/17 14:24 Dose: 40 mg Insulin Aspart (Novolog Vial Sliding Scale -) 1 vial SQ ACHS [facility] PRN Reason: Protocol Last Admin: 09/27/17 11:02 Dose: 4 units Labetalol HCl (Normodyne -) 200 mg PO BID [facility] Last Admin: 09/27/17 10:47 Dose: 200 mg Lactulose (Cephulac (Oral Use)) 20 gm PO ONCE PRN PRN Reason: CONSTIPATION Lisinopril (Prinivil) 40 mg PO DAILY [facility] Last Admin: 09/27/17 10:45 Dose: 40 mg Pantoprazole Sodium (Protonix -) 40 mg PO DAILY [facility] Last Admin: 09/27/17 10:46 Dose: 40 mg Polyethylene Glycol (Miralax (For Daily Use) -) 17 gm PO DAILY [facility] Last Admin: 09/27/17 10:46 Dose: 17 gm Repaglinide (Prandin -) 1 mg PO TIDAC [facility] Last Admin: 09/27/17 10:53 Dose: 1 mg Sertraline HCl (Zoloft -) 50 mg PO DAILY [facility] Last Admin: 09/27/17 10:46 Dose: 50 mg - Objective Vital Signs: Vital Signs Temperature 98 F 09/27/17 14:14 Pulse Rate 66 09/27/17 14:14 Respiratory Rate 18 09/27/17 14:14 Blood Pressure 132/63 09/27/17 14:14 O2 Sat by Pulse Oximetry (%) 96 09/27/17 08:00 Constitutional: Yes: No Distress, Calm Cardiovascular: Yes: Regular Rate and Rhythm Respiratory: Yes: Regular, CTA Bilaterally Gastrointestinal: Yes: Normal Bowel Sounds, Soft Musculoskeletal: Yes: WNL Extremities: Yes: WNL Neurological: Yes: Alert, Oriented Psychiatric: Yes: Alert, Oriented Labs: CBC, BMP 09/27/17 10:41 09/27/17 10:41 INR, PTT INR 1.41 (0.82-1.09) H 09/23/17 14:05 Assessment/Plan looking at the patient multiple possibilities 1. Acute metabolic encephalopathy 2. Fall 3. Chronic diastolic heart failure 4. HTN 5. A.fib 6. CKD 7. COPD 8. Anemia 9. DM patient speech already improving,thinks fall might have caused this plan improving speech better rest as per primary team continue to monitor
[2017-09-27 22:17] VITALS: BP 131/68; PULSE 68; TEMP 98
== END 2017-09-27 20:00 | DRG 92 ==
LOC: JER 12:05 → JERBED 15:34 → J7W 20:29 → J4W 09-25 15:27
PROVIDERS: ADMIT Hospitalist; ATTEND Nurse Practitioner Family
DX: G92 Toxic encephalopathy (principal); S32.059A Unspecified fracture of fifth lumbar vertebra, initial encounter for closed fracture; S32.049A Unspecified fracture of fourth lumbar vertebra, initial encounter for closed fracture; I50.32 Chronic diastolic (congestive) heart failure; I48.1 Persistent atrial fibrillation; I13.0 Hypertensive heart and chronic kidney disease with heart failure and stage 1 through stage 4 chronic kidney disease, or unspecified chronic kidney disease; E87.0 Hyperosmolality and hypernatremia; N17.9 Acute kidney failure, unspecified; R09.02 Hypoxemia; T36.8X5A Adverse effect of other systemic antibiotics, initial encounter; I27.20 Pulmonary hypertension, unspecified; J44.9 Chronic obstructive pulmonary disease, unspecified; F03.90 Unspecified dementia, unspecified severity, without behavioral disturbance, psychotic disturbance, mood disturbance, and anxiety; Z85.828 Personal history of other malignant neoplasm of skin; D64.9 Anemia, unspecified; Z96.641 Presence of right artificial hip joint; Z87.891 Personal history of nicotine dependence; R41.0 Disorientation, unspecified; Z79.01 Long term (current) use of anticoagulants; E11.22 Type 2 diabetes mellitus with diabetic chronic kidney disease; N18.9 Chronic kidney disease, unspecified; E11.40 Type 2 diabetes mellitus with diabetic neuropathy, unspecified; M50.30 Other cervical disc degeneration, unspecified cervical region; W01.0XXA Fall on same level from slipping, tripping and stumbling without subsequent striking against object, initial encounter; Y93.89 Activity, other specified; Y92.128 Other place in nursing home as the place of occurrence of the external cause; Y99.8 Other external cause status; Z79.4 Long term (current) use of insulin; T40.605A Adverse effect of unspecified narcotics, initial encounter; I08.3 Combined rheumatic disorders of mitral, aortic and tricuspid valves; M16.11 Unilateral primary osteoarthritis, right hip; Z96.651 Presence of right artificial knee joint; K56.41 Fecal impaction
CPT/HCPCS: 36415; 36600; 70450-TC; 71045-TC-FY; 71250-TC; 72125-TC; 72131-TC; 72148-TC; 74019-TC-FY; 74176-TC; 80048; 80053; 81003; 81015; 82550; 82803; 82962; 83605; 83735; 84100; 84443; 84484; 85025; 85027; 85610; 85730; 87040; 87070; 87075; 87086; 87205; 93005; 93010; 94640; 97116-GP; 97161-GP; 99284-25; J0131; J7620

== ENCOUNTER 2018-02-25 16:06 | Inpatient (IN) | payer OTHER ==
--- NOTE | 2018-02-25 16:21 | PDOC ---
History of Present Illness - General Stated Complaint: DIFFICULTY BREATHING Time Seen by Provider: 02/25/18 16:18 - History of Present Illness Initial Comments: 82yo F with PMH of diastolic HF, COPD, asthma, HTN, HLD, DM presenting with worsening shortness of breath. Patient was last seen in this ED 09/23/17 and was admitted for sepsis with pneumonia. For the last 3 months, patient has required oxygen at home, 2.5 L. SOB has worsened over the past 2-3 days despite breathing treatments. Patient reports dyspnea on exertion, feeling winded after two steps. Patient also reports leg swelling bilaterally. She endorses chest tightness 3-4 days ago that went away on its own. Reports chills, but no fever. No abdominal pain, nausea, or vomiting. Past History - Past Medical History Allergies/Adverse Reactions: Allergies Allergy/AdvReac Type Severity Reaction Status Date / Time ciprofloxacin [From Cipro] Allergy Verified 09/06/17 11:28 ciprofloxacin HCl Allergy Verified 09/06/17 11:28 [From Cipro] Home Medications: Ambulatory Orders Ferrous Sulfate 325 mg PO BID 12/29/16 Lisinopril [Zestril] 40 mg PO DAILY 12/29/16 Simvastatin 40 mg PO DAILY 12/29/16 Repaglinide [Prandin -] 1 mg PO TID 06/15/17 Albuterol 2.5/Ipratropium 0.5 [Duoneb -] 1 amp NEB Q6H PRN amp 06/19/17 Omeprazole Magnesium [Prilosec Otc] 40 mg PO DAILY 09/06/17 Sertraline HCl [Zoloft -] 50 mg PO DAILY 09/09/17 Amlodipine Besylate [Norvasc -] 10 mg PO DAILY #30 tablet 09/12/17 Furosemide [Lasix -] 40 mg PO BID@0600,1400 tablet 09/12/17 Apixaban [Eliquis -] 5 mg PO BID #0 tablet 09/27/17 Labetalol HCl [Normodyne -] 200 mg PO BID tablet 09/27/17 Repaglinide 1 mg PO AC 02/25/18 Anemia: Yes Asthma: Yes Cancer: Yes (SKIN / FOREHEAD 2010) Cardiac Disorders: Yes (A-fib) CVA: No COPD: Yes CHF: Yes Dementia: No Diabetes: Yes GI Disorders: No Disorders: No HTN: Yes Hypercholesterolemia: No Liver Disease: No Psychiatric Problems: Yes (depresion, anxiety) Seizures: No Thyroid Disease: No - Surgical History Abdominal Surgery: No Appendectomy: No Cardiac Surgery: No Cholecystectomy: No Lung Surgery: No Neurologic Surgery: No Orthopedic Surgery: Yes ((R) HIP REPLACEMENT 2007) - Immunization History Immunization Up to Date: Yes - Suicide/Smoking/Psychosocial Hx Smoking Status: No Smoking History: Never smoked Have you smoked in the past 12 months: No Number of Cigarettes Smoked Daily: 0 If you are a former smoker, when did you quit?: "when I was very young" Cigars Per Day: 0 Hx Alcohol Use: No Drug/Substance Use Hx: No Substance Use Type: None Hx Substance Use Treatment: No Review of Systems - Review of Systems Comments:: Constitutional: no fever, +chills Cardiovascular: no chest pain, no palpitations Respiratory: no cough, +shortness of breath Gastrointestinal: no abdominal pain, no nausea, no vomiting Musculoskeletal: no myalgia, no arthralgia Skin: no rash, no itching Neurologic: no headache, no dizziness *Physical Exam - Physical Exam Comments: General: Awake, alert, and fully oriented, in no acute distress Head: no signs of trauma Eyes: EOMI, sclera anicteric ENT: Moist mucus membranes, Neck: Normal ROM, supple Lungs: Crackles at bases bilaterally, tachypnic Cardio: Regular rhythm, S1 and S2 present Abdomen: Soft, nontender. Extremities:Distal pulses present SKIN: Warm, Dry, normal turgor Neurologic: Cranial nerves II through XII grossly intact. Normal speech ED Treatment Course - LABORATORY CBC & Chemistry Diagram: 02/25/18 17:02 02/25/18 17:02 Medical Decision Making - Medical Decision Making 82yo F with PMH of diastolic HF, COPD, asthma, HTN, HLD, DM presenting with worsening shortness of breath -duoneb -lasix 40 -labs -CXR -EKG 02/25/18 19:14 No leukocytosis. Patient hgb consistent with previous levels. Patient reports some improvement after breathing treatment, but still endorses SOB. Awaiting CXR report; appears worsened from CXR in August 2017 with bilateral diffuse infiltrates as read by me Tpn negative, BNP [id number] Ordered Rocephin and Azithromycin 10/02/18 19:50 Paged hospitalist 02/25/18 20:18 Discussed case with inpatient team who will accept patient for admission 02/25/18 20:45 *DC/Admit/Observation/Transfer Diagnosis at time of Disposition: CHF exacerbation - Discharge Dispostion Decision to Admit order: Yes - Referrals - Patient Instructions - Post Discharge Activity
[2018-02-25] MEDS ORDERED: ALBUTEROL SO4 2.5/IPRATROPIUM 0.5 INH SOL 3 ML VIAL.NEB. NEB ONE ×2 (17:03→17:45)
[2018-02-25] MEDS ORDERED: FUROSEMIDE 40 MG/4 ML INJECTABLE VIAL IVPUSH ONE (17:04)
--- NOTE | 2018-02-25 17:28 | PDOC ---
Attending Attestation - Resident Resident Name: Kamille Riverath - ED Attending Attestation I have performed the following: I have examined & evaluated the patient, The case was reviewed & discussed with the resident, I agree w/resident's findings & plan, Exceptions are as noted - HPI HPI: 02/25/18 17:27 82-year-old female brought in by ambulance from home for increasing dyspnea. She does have a past medical history significant for congestive heart failure, COPD and coronary artery disease. Her primary care physician is Dr. Briseno - Physicial Exam PE: 02/25/18 17:33 82-year-old female on oxygen nasal cannula presents with tachypnea Head is normocephalic, atraumatic. 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
[2018-02-25] MEDS ORDERED: FUROSEMIDE 40 MG/4 ML INJECTABLE VIAL ONE (17:37)
[2018-02-25 17:45] LABS: BASO % 0.9 % (0-2.0); EOS % 2.3 % (0-4.5); HEMATOCRIT 30.1 % (32.4-45.2); HEMOGLOBIN 9.6 GM/dL (10.7-15.3); LYMPH % 12.3 % (8-40); MCH 27.8 pg (25.7-33.7); MEAN CELL VOLUME 86.8 fl (80-96); MEAN PLT VOLUME 9.2 fl (7.5-11.1); NEUT % 73.5 % (42.8-82.8); PLATELET COUNT 196 K/MM3 (134-434); RBC 3.47 M/mm3 (3.60-5.2); RDW 16.4 % (11.6-15.6); WHITE BLOOD COUNT 6.7 K/mm3 (4.0-10.0)
[2018-02-25 18:08] LABS: ALBUMIN 3.6 g/dl (3.4-5.0); ALK PHOS 60 U/L (45-117); ANION GAP 4 MMOL/L (8-16); BILIRUBIN,TOTAL 0.4 mg/dL (0.2-1); BLOOD UREA NITROGEN 26 mg/dL (7-18); CALCIUM 8.2 mg/dL (8.5-10.1); CHLORIDE 110 mmol/L (98-107); CO2 25 mmol/L (21-32); CREATININE 1.2 mg/dL (0.55-1.3); GLUCOSE,RANDOM 75 mg/dL (74-106); N-TERMINAL BNP 4461.8 pg/ml (5-450); POTASSIUM 4.6 mmol/L (3.5-5.1); SGOT/AST 11 U/L (15-37); SGPT/ALT 14 U/L (13-61); SODIUM 140 mmol/L (136-145); TOT PROT 6.4 g/dl (6.4-8.2)
[2018-02-25 18:14] LABS: INR 1.8 (0.83-1.09); PROTHROMBIN TIME (PATIENT) 21.4 SEC (9.7-13.0)
[2018-02-25 18:52] LABS: URINE APPEARANCE SLCLOUDY; URINE BILIRUBIN NEGATIVE (<2.0 mg/dL); URINE COLOR STRAW; URINE GLUCOSE (UA) NEGATIVE (NEGATIVE); URINE KETONE NEGATIVE (NEGATIVE); URINE LEUK ESTERASE NEGATIVE (NEGATIVE); URINE NITRITE NEGATIVE (NEGATIVE); URINE PROTEIN NEGATIVE (NEGATIVE); URINE UROBILINOGEN NEGATIVE mg/dL (0.2-1.0)
[2018-02-25] MEDS ORDERED: AZITHROMYCIN IVPB 500 MG in DEXTROSE 5%-WATER - 250 ML IVPB ONE (20:06)
[2018-02-25] MEDS ORDERED: CEFTRIAXONE 1,000 MG in DEXTROSE 5%-WATER - 50 ML IVPB ONE (20:06)
[2018-02-25] MEDS ORDERED: CEFTRIAXONE 1 GM/50 ML BAG ONE ×2 (20:43→20:44)
[2018-02-25] MEDS ORDERED: AZITHROMYCIN IVPB 500 MG/250 ML BAG IVPB ONE (20:43)
--- NOTE | 2018-02-25 20:49 | PN ---
Teaching Attending Note Name of Resident: Jose Ortiz ATTENDING PHYSICIAN STATEMENT I saw and evaluated the patient. I reviewed the resident's note and discussed the case with the resident. I agree with the resident's findings and plan as documented. SUBJECTIVE: Patient is an 82 year old woman with PMH of diastolic CHF, COPD, asthma, HTN, HLD, afib on Eliquis and NIDDM presenting with worsening shortness of breath. Patient was last seen in this ER on 09/23/17 and was admitted for sepsis with pneumonia. For the last 3 months, patient has required oxygen at home, 2.5 L. SOB has worsened over the past 2-3 days despite breathing treatments. Patient reports dyspnea on exertion, feeling winded after two steps. Patient also reports leg swelling bilaterally. She endorses chest tightness 3-4 days ago that went away on its own. Reports chills, but no fever. No abdominal pain, nausea, or vomiting. OBJECTIVE: Alert Vital Signs Period Temp Pulse Resp BP Sys/Mo Pulse Ox Last 24 Hr 98.4 F 62-67 27-29 147-151/48-80 88-96 HEENT: No Jaundice, eye redness or discharge, PERRLA, EOMI. Normocephalic, atraumatic. External ears are normal and hearing is grossly intact. No nasal discharge. Neck: Supple, nontender. No palpable adenopathy or thyromegaly. No JVD Chest: Good effort. Bibasilar crackles. Heart: Irregular. No S3, rub or murmur Abdomen: Not distended, soft, nontender and no HSM. No rebound or guarding. Normoactive bowel sounds. Ext: Peripheral pulses intact. Leg edema. Skin: Warm and dry. No petechiae, rash or ecchymosis. Neuro: Alert. Oriented x3. CN 2-12 grossly intact. Sensation grossly intact in all four extremities and DTR are symmetric. Current Medications Generic Name Dose Route Start Last Admin Trade Name Freq PRN Reason Stop Dose Admin Azithromycin 500 mg/ Dextrose 250 mls @ 250 mls/hr 02/25/18 20:06 IVPB 02/25/18 21:05 ONCE ONE Home Medications Medication Instructions Recorded Ferrous Sulfate 325 mg PO BID 12/29/16 Lisinopril [Zestril] 40 mg PO DAILY 12/29/16 Simvastatin 40 mg PO DAILY 12/29/16 Repaglinide [Prandin -] 1 mg PO TID 06/15/17 Albuterol 2.5/Ipratropium 0.5 1 amp NEB Q6H PRN amp 06/19/17 [Duoneb -] Omeprazole Magnesium [Prilosec Otc] 40 mg PO DAILY 09/06/17 Sertraline HCl [Zoloft -] 50 mg PO DAILY 09/09/17 Amlodipine Besylate [Norvasc -] 10 mg PO DAILY #30 tablet 09/12/17 Furosemide [Lasix -] 40 mg PO BID@0600,1400 tablet 09/12/17 Apixaban [Eliquis -] 5 mg PO BID #0 tablet 09/27/17 Labetalol HCl [Normodyne -] 200 mg PO BID tablet 09/27/17 Repaglinide 1 mg PO AC 02/25/18 Abnormal Lab Results 02/25/18 02/25/18 02/25/18 17:02 17:02 17:02 RBC 3.47 L Hgb 9.6 L Hct 30.1 L RDW 16.4 H Monocytes % 11.0 H PT with INR 21.40 H INR 1.80 H Chloride 110 H Anion Gap 4 L BUN 26 H Calcium 8.2 L AST 11 L B-Natriuretic Peptide 4461.8 H ASSESSMENT AND PLAN: 1. CHF exacerbation - CXR shows cardiomegaly and pulmonary congestion. ECHO on showed LVEF of 65%. Cause of the exacerbation is unclear. No evidence of ACS. Will give initial dose of 40 mg IV lasix and monitor her response and increase the dose if necessary. Continue O2 and PRN duoneb. Get daily weight and restrict dietary salt intake. Consult cardiology to recommend her ideal outpatient drug regimen for diastolic dysfunction - 10 mg amlodipine dose may be contributing to leg edema. Counseled to take am lasix at home before breakfast. Afib is rate controlled. Continue Eliquis. 2. DM - For now, we will hold the home diabetes drugs and implement sliding scale insulin regimen. Provide comprehensive diabetes care with patient teaching and counseling about the importance of euglycemia, eye care and foot care. 3. Anemia - Cause unclear. Do basic anemia work up including serial stool guaiacs, reticulocyte count and iron studies. Would benefit from Procrit therapy once iron replete. Refer to GI for outpatient colonoscopy. 4. Obesity - Will provide patient all the necessary assistance, counseling and positive reinforcement to facilitate weight loss. Consult transmission system operator. 5. DVT prophylaxis - On Eliquis 6. Advance directives - Full code
--- NOTE | 2018-02-25 21:54 | HP ---
CHIEF COMPLAINT: SOB PCP: Dr Pompa HISTORY OF PRESENT ILLNESS: Pt is a pleasant 82 y/o lady with a significant past medical history of asthma, COPD, atrial fibrillation(on Eliquis 5 mg po bid), diastolic HF, IDDM, HTN, and HLD who presented to [facility] this evening 2/2 experiencing worsening shortness of breath for the last 3 days. pt describes a 'heavy chest" sensation during this time period as well. Pt states she was not exerting herself when her episode of sob began. She receives supplemental oxygen (2.5 L) and duoneb treatments at her home with a nurse that assists her 5 days/per week for 8 hours per day. Pt was admitted in May of this year for similar complaints of shortness of breath and R hip pain. Her BNP at that time was 6306.51. Pt was treated for ESBL UTI in August of this year. pt was admitted later that month for sepsis 2/2 pneumonia. Pt currently endorses increasing pain and swelling in her lower extremities. Denies chest pain, dizziness, nausea, vomiting, changes in vision, fever, or chills. ER course was notable for: (1) Lasix 40 mg, Rocephin 1 gm, and azithro 500 mg (2) BNP 4461.8 (3) H/H 9.6/30.1 Recent Travel: Denies PAST MEDICAL HISTORY: Per HPI PAST SURGICAL HISTORY: R Hip Replacement 2007 and revision in 2017 Social History: Smoking: former smoker (quit 60 + years ago) Alcohol: Denies Drugs: Denies Family History: Allergies ciprofloxacin [From Cipro] Allergy (Verified 09/06/17 11:28) ciprofloxacin HCl [From Cipro] Allergy (Verified 09/06/17 11:28) HOME MEDICATIONS: Home Medications Medication Instructions Recorded Ferrous Sulfate 325 mg PO BID 12/29/16 Lisinopril [Zestril] 40 mg PO DAILY 12/29/16 Simvastatin 40 mg PO DAILY 12/29/16 Repaglinide [Prandin -] 1 mg PO TID 06/15/17 Albuterol 2.5/Ipratropium 0.5 1 amp NEB Q6H PRN amp 06/19/17 [Duoneb -] Omeprazole Magnesium [Prilosec Otc] 40 mg PO DAILY 09/06/17 Sertraline HCl [Zoloft -] 50 mg PO DAILY 09/09/17 Amlodipine Besylate [Norvasc -] 10 mg PO DAILY #30 tablet 09/12/17 Furosemide [Lasix -] 40 mg PO BID@0600,1400 tablet 09/12/17 Apixaban [Eliquis -] 5 mg PO BID #0 tablet 09/27/17 Labetalol HCl [Normodyne -] 200 mg PO BID tablet 09/27/17 Repaglinide 1 mg PO AC 02/25/18 REVIEW OF SYSTEMS CONSTITUTIONAL: Absent: fever, chills, diaphoresis, generalized weakness, malaise, loss of appetite, weight change HEENT: Absent: rhinorrhea, nasal congestion, throat pain, throat swelling, difficulty swallowing, mouth swelling, ear pain, eye pain, visual changes CARDIOVASCULAR: PRESENT: palpitations, irregular heart rate peripheral edema RESPIRATORY: PRESENT: shortness of breath, dyspnea with exertion, orthopnea, wheezing GASTROINTESTINAL: Absent: abdominal pain, abdominal distension, nausea, vomiting, diarrhea, constipation, melena, hematochezia GENITOURINARY: Absent: dysuria, frequency, urgency, hesitancy, hematuria, flank pain, genital pain MUSCULOSKELETAL: PRESENT: myalgia, arthralgia, joint swelling, SKIN: Absent: rash, itching, pallor HEMATOLOGIC/IMMUNOLOGIC: Absent: easy bleeding, easy bruising, lymphadenopathy, frequent infections ENDOCRINE: Absent: unexplained weight gain, unexplained weight loss, heat intolerance, cold intolerance NEUROLOGIC: Absent: headache, focal weakness or paresthesias, dizziness, unsteady gait, seizure, mental status changes, bladder or bowel incontinence PSYCHIATRIC: Absent: anxiety, depression, suicidal or homicidal ideation, hallucinations. PHYSICAL EXAMINATION Vital Signs - 24 hr 02/25/18 02/25/18 02/25/18 16:10 16:33 19:03 Temperature 98.4 F Pulse Rate 64 62 Pulse Rate [ 67 Apical] Respiratory 27 H 29 H Rate Blood Pressure 151/80 Blood Pressure 147/48 L [Right Arm] O2 Sat by Pulse 96 88 L 94 L Oximetry (%) 02/25/18 21:27 Temperature Pulse Rate Pulse Rate [ 61 Apical] Respiratory 29 H Rate Blood Pressure Blood Pressure [Right Arm] O2 Sat by Pulse 94 L Oximetry (%) GENERAL: AAOx3, NAD, well nourished. HEAD: NC/AT EYES: PERRLA, No scleral icterus, EARS, NOSE, THROAT: MMM NECK: Supple, No JVD appreciated LUNGS: Crackles heard lower lung chin, No wheezing apprecited. HEART: Irregularly irregular, possible systolic murmur. ABDOMEN: Obese, Nt, ND, No HSM. BS + all 4 quadrants MUSCULOSKELETAL: Limited ROM R hip and lower extremity. UPPER EXTREMITIES: No CCE LOWER EXTREMITIES: No CCE, feet no cracks or open wounds appreciated NEUROLOGICAL: CN 2-12 intact PSYCHIATRIC: Cooperative. Good eye contact. Appropriate mood and affect. SKIN: 2+ edema lower extremities up to knees b/l . Laboratory Results - last 24 hr 02/25/18 02/25/18 02/25/18 17:02 17:02 17:02 WBC 6.7 RBC 3.47 L Hgb 9.6 L Hct 30.1 L MCV 86.8 MCH 27.8 MCHC 32.0 RDW 16.4 H Plt Count 196 MPV 9.2 Absolute Neuts (auto) 4.9 Neutrophils % 73.5 Lymphocytes % 12.3 Monocytes % 11.0 H Eosinophils % 2.3 Basophils % 0.9 Nucleated RBC % 0 PT with INR 21.40 H INR 1.80 H Sodium 140 Potassium 4.6 Chloride 110 H Carbon Dioxide 25 Anion Gap 4 L BUN 26 H Creatinine 1.2 Creat Clearance w eGFR 42.90 Random Glucose 75 Calcium 8.2 L Total Bilirubin 0.4 AST 11 L ALT 14 Alkaline Phosphatase 60 Troponin I < 0.02 B-Natriuretic Peptide 4461.8 H Total Protein 6.4 Albumin 3.6 Urine Color Urine Appearance Urine pH Ur Specific Mcallen Urine Protein Urine Glucose (UA) Urine Ketones Urine Blood Urine Nitrite Urine Bilirubin Urine Urobilinogen Ur Leukocyte Esterase 02/25/18 18:28 WBC RBC Hgb Hct MCV MCH MCHC RDW Plt Count MPV Absolute Neuts (auto) Neutrophils % Lymphocytes % Monocytes % Eosinophils % Basophils % Nucleated RBC % PT with INR INR Sodium Potassium Chloride Carbon Dioxide Anion Gap BUN Creatinine Creat Clearance w eGFR Random Glucose Calcium Total Bilirubin AST ALT Alkaline Phosphatase Troponin I B-Natriuretic Peptide Total Protein Albumin Urine Color Straw Urine Appearance Slcloudy Urine pH 5.0 D Ur Specific [place] 1.006 Urine Protein Negative Urine Glucose (UA) Negative Urine Ketones Negative Urine Blood Negative Urine Nitrite Negative Urine Bilirubin Negative Urine Urobilinogen Negative Ur Leukocyte Esterase Negative ASSESSMENT/PLAN: 82 y/o lady with a significant past medical history of asthma, COPD, diastolic HF, IDDM, HTN, and HLD who presented to [facility] this evening 2/2 experiencing worsening shortness of breath for the last 3 days. # CHF Exacerbation -EF Echo 08/2017--> 65% -BNP 4461.8 - Chest X-RAY--> Cardiomegaly -40 mg IV lasix. Will continue to asess pt's response based upon urine output. Adjust accordingly. -Monitor Urine output - O2 and Duoneb as needed - Pt informed to take Lasix before consuming food as it may be more effective -Cardiology consulted. # AFIB - Continue AC w/ Eliquis 5 mg po bid - Rate control--> Continue home meds per Cardiology recommendation, was on Labetalol and Amlodipine -Amlodipine may be contributing to pt's increasing peripheral edema, adjust per cardiology recommendations. #DM -Insulin sliding scale -BGM ACHS -Diabetic/sodium controlled Diet #COPD - Continue Duoneb PRN - Supplemntnal O2 PRN -Consider Pulm consult as pt's SOB worsening. May need to adjust meds. # Anemia -H/H 9.6/30.1 -FOBT in ED was negative -Consider serial FOBT -Continue to trend H/H FEN No Fluids as pt in CHF exacerbation Moniutor Electorlyres Low Na+/Diabetic diet DVT ppx: Eliquis 5 mg po bid Dispo: Continue to monitor on floor. Visit type - Emergency Visit Emergency Visit: Yes ED Registration Date: 02/25/18 Care time: The patient presented to the Emergency Department on the above date and was hospitalized for further evaluation of their emergent condition. - New Patient This patient is new to me today: Yes Date on this admission: 02/25/18 - Critical Care Critical Care patient: No
[2018-02-25] MEDS: APIXABAN 5 MG TABLET PO SCH (22:02)
[2018-02-25] MEDS: INSULIN SLIDING SCALE (NOVOLOG) 1 VIAL SQ SCH (22:08)
[2018-02-25] MEDS ORDERED: INSULIN (NOVOLOG) ASPART 100 UNITS/ML 10ML VIAL ONE (22:15)
[2018-02-26 06:46] LABS: BASO % 0.5 % (0-2.0); EOS % 1.5 % (0-4.5); HEMATOCRIT 29.7 % (32.4-45.2); HEMOGLOBIN 9.5 GM/dL (10.7-15.3); LYMPH % 9.8 % (8-40); MCH 27.6 pg (25.7-33.7); MCHC 31.9 g/dl (32.0-36.0); MEAN CELL VOLUME 86.5 fl (80-96); MEAN PLT VOLUME 9.2 fl (7.5-11.1); NEUT % 81.2 % (42.8-82.8); PLATELET COUNT 166 K/MM3 (134-434); RBC 3.44 M/mm3 (3.60-5.2); RDW 16.2 % (11.6-15.6); WHITE BLOOD COUNT 8.5 K/mm3 (4.0-10.0)
[2018-02-26 07:08] LABS: ALBUMIN 3.5 g/dl (3.4-5.0); ALK PHOS 58 U/L (45-117); ANION GAP 6 MMOL/L (8-16); BILIRUBIN,TOTAL 0.5 mg/dL (0.2-1); BLOOD UREA NITROGEN 32 mg/dL (7-18); CALCIUM 8.1 mg/dL (8.5-10.1); CHLORIDE 106 mmol/L (98-107); CO2 30 mmol/L (21-32); CREATININE 1.3 mg/dL (0.55-1.3); GLUCOSE,RANDOM 120 mg/dL (74-106); MAGNESIUM 2.1 mg/dL (1.8-2.4); PHOSPHOROUS 4.6 mg/dL (2.5-4.9); POTASSIUM 4.4 mmol/L (3.5-5.1); SGOT/AST 13 U/L (15-37); SGPT/ALT 12 U/L (13-61); SODIUM 141 mmol/L (136-145); TOT PROT 6.3 g/dl (6.4-8.2)
[2018-02-26 07:25] LABS: INR 1.66 (0.83-1.09); PROTHROMBIN TIME (PATIENT) 19.7 SEC (9.7-13.0)
[2018-02-26] MEDS: INSULIN SLIDING SCALE (NOVOLOG) 1 VIAL SQ SCH ×2 (07:25→13:01)
[2018-02-26 07:28] LABS: ACTIVATED PTT 32.6 SECONDS (25.2-36.5)
--- NOTE | 2018-02-26 10:11 | CON.CARD ---
Consult Consult Specialty:: Cardiology Referred by:: Hospitalist Medicine Reason for Consultation:: Diastolic failure - History of Present Illness Chief Complaint: Dyspnea History of Present Illness: Patient is an 82 year old female with underlying history of CAD (non-obstructive ), angina pectoris, diastolic LV dysfunction with history of congestive heart failure, mitral valve disease with mitral valve regurgitation, aortic valve disease with moderate aortic valve stenosis, tricuspid valve disease with tricuspid valve regurgitation and pulmonary hypertension, persistent atrial fibrillation on Eliquis, HTN/HCVD, type 2 diabetes mellitus, hypercholesterolemia, COPD, anemia, and right hip replacement admitted for worsening shortness of breath with exertion, decreased exercise capacity, bilateral LE swelling, orthopnea, occasional chest tightness without palpitations, near or true syncope, PND, did not take antihypertensive meds yesterday. Allergies: NKA Past surgical history: Rip hip replacement in 2007 and January 2017 Social history: No reported alcohol, cigarette, or drug use. PCP: Dr. Pompa - History Source History Provided By: Patient Limitations to Obtaining History: No Limitations - Past Medical History Cardio/Vascular: Yes: AFIB, Aortic Stenosis, CAD, CHF, HTN, Hyperlipdemia, Mitral Insufficiency, Murmur, Pulmonary Hypertension Pulmonary: Yes: COPD Musculoskeletal: Yes: Osteoarthritis (had hip and knee replacement, still with some healing problems ), Other Endocrine: Yes: Diabetes Mellitus - Past Surgical History Past Surgical History: Yes: Joint Replacement - Alcohol/Substance Use Hx Alcohol Use: No History of Substance Use: reports: None - Smoking History Smoking history: Never smoked Have you smoked in the past 12 months: No Aproximately how many cigarettes per day: 0 If you are a former smoker, when did you quit?: "when I was very young" Home Medications - Allergies Allergies/Adverse Reactions: Allergies Allergy/AdvReac Type Severity Reaction Status Date / Time ciprofloxacin [From Cipro] Allergy Verified 09/06/17 11:28 ciprofloxacin HCl Allergy Verified 09/06/17 11:28 [From Cipro] - Home Medications Home Medications: Ambulatory Orders Ferrous Sulfate 325 mg PO BID 12/29/16 Lisinopril [Zestril] 40 mg PO DAILY 12/29/16 Simvastatin 40 mg PO DAILY 12/29/16 Repaglinide [Prandin -] 1 mg PO TID 06/15/17 Albuterol 2.5/Ipratropium 0.5 [Duoneb -] 1 amp NEB Q6H PRN amp 06/19/17 Omeprazole Magnesium [Prilosec Otc] 40 mg PO DAILY 09/06/17 Sertraline HCl [Zoloft -] 50 mg PO DAILY 09/09/17 Amlodipine Besylate [Norvasc -] 10 mg PO DAILY #30 tablet 09/12/17 Furosemide [Lasix -] 40 mg PO BID@0600,1400 tablet 09/12/17 Apixaban [Eliquis -] 5 mg PO BID #0 tablet 09/27/17 Labetalol HCl [Normodyne -] 200 mg PO BID tablet 09/27/17 Repaglinide 1 mg PO AC 02/25/18 Family Disease History - Family Disease History Family History: Unremarkable Family Disease History: Other: Daughter (alive and well) Review of Systems - Review of Systems Constitutional: reports: Weakness Eyes: reports: No Symptoms HENT: reports: No Symptoms Neck: reports: No Symptoms Cardiovascular: reports: Chest Pain, Shortness of Breath Respiratory: reports: Exercise Intolerance, SOB on Exertion Gastrointestinal: reports: No Symptoms Genitourinary: reports: No Symptoms Musculoskeletal: reports: No Symptoms Integumentary: reports: No Symptoms Neurological: reports: Weakness Endocrine: reports: No Symptoms Vital Signs: Vital Signs Temperature 98.4 F 02/26/18 06:45 Pulse Rate 64 02/26/18 06:45 Respiratory Rate 26 H 02/26/18 06:45 Blood Pressure 158/87 02/26/18 06:45 O2 Sat by Pulse Oximetry (%) 96 02/26/18 06:45 Constitutional: Yes: No Distress, Calm Neck: Yes: Supple Respiratory: Yes: Regular, Diminished, On Nasal O2 Gastrointestinal: Yes: Normal Bowel Sounds, Soft, Abdomen, Obese Cardiovascular: Yes: Pulse Irregular JVD: No Carotid Bruit: No Heart Sounds: Yes: S1, S2 Murmur: Yes: Systolic Murmur, Grade 2 Edema: Yes Edema: LLE: 2+, RLE: 2+ - Other Data Labs, Other Data: CBC, BMP 02/26/18 06:00 02/26/18 06:00 INR, PTT INR 1.66 (0.83-1.09) H 02/26/18 06:00 Troponin, BNP 02/25/18 02/26/18 17:02 06:00 Troponin I < 0.02 < 0.02 B-Natriuretic Peptide 4461.8 H Troponin, BNP 02/25/18 02/26/18 17:02 06:00 Troponin I < 0.02 < 0.02 B-Natriuretic Peptide 4461.8 H Afib Prior Cardiac Procedures: Cardiac Catheterization Ejection Fraction %: LVEF > or = 40 % Imaging - Results Chest X-ray: Report Reviewed (Congestion) Problem List - Problems (1) Acute on chronic diastolic (congestive) heart failure Code(s): I50.33 - ACUTE ON CHRONIC DIASTOLIC (CONGESTIVE) HEART FAILURE (2) Dpjjo-ei-glspnsh kidney injury Code(s): N17.9 - ACUTE KIDNEY FAILURE, UNSPECIFIED; N18.9 - CHRONIC KIDNEY DISEASE, UNSPECIFIED Qualifiers: Acute renal failure type: unspecified Chronic kidney disease stage: stage 2 (mild) Qualified Code(s): N17.9 - Acute kidney failure, unspecified; N18.2 - Chronic kidney disease, stage 2 (mild) (3) Anemia Code(s): D64.9 - ANEMIA, UNSPECIFIED Qualifiers: Anemia type: unspecified type Qualified Code(s): D64.9 - Anemia, unspecified (4) Dyspnea Code(s): R06.00 - DYSPNEA, UNSPECIFIED Qualifiers: Dyspnea type: dyspnea on exertion Qualified Code(s): R06.09 - Other forms of dyspnea (5) HTN (hypertension) Code(s): I10 - ESSENTIAL (PRIMARY) HYPERTENSION Qualifiers: Hypertension type: essential hypertension Qualified Code(s): I10 - Essential (primary) hypertension (6) Aortic valve stenosis Code(s): I35.0 - NONRHEUMATIC AORTIC (VALVE) STENOSIS Qualifiers: Cardiac valve disease etiology: nonrheumatic Qualified Code(s): I35.0 - Nonrheumatic aortic (valve) stenosis (7) Atrial fibrillation Code(s): I48.91 - UNSPECIFIED ATRIAL FIBRILLATION Qualifiers: Atrial fibrillation type: persistent Qualified Code(s): I48.1 - Persistent atrial fibrillation (8) COPD (chronic obstructive pulmonary disease) Code(s): J44.9 - CHRONIC OBSTRUCTIVE PULMONARY DISEASE, UNSPECIFIED Qualifiers: COPD type: unspecified COPD Qualified Code(s): J44.9 - Chronic obstructive pulmonary disease, unspecified (9) Diabetes mellitus Code(s): E11.9 - TYPE 2 DIABETES MELLITUS WITHOUT COMPLICATIONS Qualifiers: Diabetes mellitus type: type 2 Diabetes mellitus chcf insulin use: without bacteriologist fishery use Diabetes mellitus complication status: without complication Qualified Code(s): E11.9 - Type 2 diabetes mellitus without complications (10) Hypercholesterolemia Code(s): E78.00 - PURE HYPERCHOLESTEROLEMIA, UNSPECIFIED Assessment/Plan 09/10/2017 Echo: Normal LV size and fxn, LVEF 65%, mild cLVH, abnl LV compliance , mod TRINI, mild MR, TR, mod MG 25 mmHg 1. Acute on chronic LV diastolic failure with moderate 2. COPD 3. Persistent atrial fibrillation with [id number] score of 7 on Eliquis 4. Type 2 diabetes mellitus 5. Hypertensive urgency 6. Hypercholesterolemia 7. Acute on chronic kidney disease 8. Anemia 9. Degenerative joint disease post right THR PLAN: 1. IV diuresis with monitor diuretic response, renal fxn and electrolytes 2. Ruled out for MO, echo to reassess ventricular and valve fxn 3. Continue Labetalol 200 BID, Lisinopril 40 qd, Eliquis 5 bid, Lipitor 20 qhs, and Amlodipine 10 qd 4. GI prophylaxis 5. Thank you for consultative opportunity
--- NOTE | 2018-02-26 11:58 | EKG ---
Test Reason : Blood Pressure : / mmHG Vent. Rate : 066 BPM Atrial Rate : 081 BPM P-R Int : 000 ms QRS Dur : 100 ms QT Int : 410 ms P-R-T Axes : 000 -56 043 degrees QTc Int : 429 ms atrial fibrillaion LEFT AXIS DEVIATION SEPTAL INFARCT , AGE UNDETERMINED POSSIBLE LATERAL INFARCT , AGE UNDETERMINED ABNORMAL ECG Confirmed by LA BERMAN MD ([id number]) on 02/26/2018 11:58:15 AM Referred By: Confirmed By:LA BERMAN MD
[2018-02-26] MEDS: LISINOPRIL 20 MG TABLET (FP) PO SCH (13:00)
[2018-02-26] MEDS: amLODIPine BESYLATE 10 MG TABLET (FP) PO SCH (13:00)
[2018-02-26] MEDS: SERTRALINE HCL 50 MG TABLET (FP) PO SCH (13:00)
[2018-02-26] MEDS: LABETALOL HCL 200 MG TABLET (FP) PO SCH ×2 (13:00→22:10)
[2018-02-26] MEDS: APIXABAN 5 MG TABLET PO SCH ×3 (13:00→22:10)
[2018-02-26] MEDS ORDERED: FUROSEMIDE 40 MG/4 ML INJECTABLE VIAL ONE (15:20)
[2018-02-26] MEDS: FUROSEMIDE 40 MG/4 ML INJECTABLE VIAL IVPUSH SCH (15:37)
--- NOTE | 2018-02-26 18:47 | PN ---
Teaching Attending Note Name of Resident: Megan Amador ATTENDING PHYSICIAN STATEMENT I saw and evaluated the patient. I reviewed the resident's note and discussed the case with the resident. I agree with the resident's findings and plan as documented. SUBJECTIVE: seen at 10:30 am No fever or chills. no cp , feels SOB but better than last night OBJECTIVE: Emotional , tearful, abdominal breathing CV: irreg irreg .. 3/6 SM at RUSB with radiation to carotids and back . 3/6 SM At apex with radiation to axilla Lungs: fine crackles at both lung chin with scattered wheezes Ext :1+ pitting edema. R > L . R dorsal foot with a bruise and edema and tenderness ASSESSMENT AND PLAN: 82 y/o lady with h/o HTN, HLP. Diastolic heart failure, COPD who presented with SOB and was found to have acute CHF exacerbation 1- Acute diastolic CHF exacerbation. slightly improved with lasix . wheezing is due to cardiac asthma. - cont lasix 40 BID - check echo - cont BB and ACEI - weight and I&O - EKG with A fib, L axis and 2- HTN : cont ACEI , BB , and norvasc 3- h/o DM . A1c is now 5.5 . stop SSI . no meds at dc 4- R foot edema and bruise 2/2 trauma . - chec k foot xray 5- normocytic anemia : iron studies , B12 , folate hloc
--- NOTE | 2018-02-26 19:57 | PN ---
Physical Exam: SUBJECTIVE: Patient seen and examined at bedside this morning. She complains of shortness of breath, and cough productive with white-yellow sputum. Denies fevers, chills, palpitations, abdominal pain, nausea, vomiting, diarrhea. OBJECTIVE: Vital Signs Period Temp Pulse Resp BP Sys/Mo Pulse Ox Last 24 Hr 98 F-98.4 F 52-78 20-30 136-183/53-93 94-98 GENERAL: The patient is awake, alert, and fully oriented, in no acute distress. HEAD: Normal with no signs of trauma. EYES: PERRL, extraocular movements intact, sclera anicteric, conjunctiva clear. ENT: Oropharynx mildly erythematous, without exudates, moist mucous membranes. NECK: Trachea midline, full range of motion, supple without lymphadenopathy LUNGS: Poor inspiratory effort. Breath sounds equal, wih b/l wheezes, and crackles at baseline. No accessory muscle use. HEART: Irregular rate and rhythm, S1, S2. Holosystolic 3/6 murmur with radiation to b/l carotids appreciated. ABDOMEN: Soft, nontender, nondistended, normoactive bowel sounds, no guarding, no rebound, no hepatosplenomegaly. EXTREMITIES: 2+ radial and dorsalis pedis pulses b/l. Warm. Right leg 2+ pitting edema, painful, erythematous compared to left. Right foot with bruise at base of first toe, painful to palpation at dorsum and ventral aspect of foot. NEUROLOGICAL: Cranial nerves II through XII grossly intact. strength 3/5 b/l upper extremities limited by pain from arthritis. Strength 3/5 b/l lower extremities limited to pain and swelling. PSYCH: Normal mood, normal affect. Laboratory Results - last 24 hr 02/25/18 02/25/18 02/26/18 22:06 22:40 06:00 WBC 8.5 RBC 3.44 L Hgb 9.5 L Hct 29.7 L MCV 86.5 MCH 27.6 MCHC 31.9 L RDW 16.2 H Plt Count 166 MPV 9.2 Absolute Neuts (auto) 6.9 Neutrophils % 81.2 Lymphocytes % 9.8 D Monocytes % 7.0 Eosinophils % 1.5 Basophils % 0.5 Nucleated RBC % 0 PT with INR INR PTT (Actin FS) Sodium Potassium Chloride Carbon Dioxide Anion Gap BUN Creatinine Creat Clearance w eGFR POC Glucometer [phone] Random Glucose Hemoglobin A1c % Calcium Phosphorus Magnesium Total Bilirubin AST ALT Alkaline Phosphatase Creatine Kinase Troponin I Total Protein Albumin Stool Occult Blood Negative 02/26/18 02/26/18 02/26/18 06:00 06:00 06:00 WBC RBC Hgb Hct MCV MCH MCHC RDW Plt Count MPV Absolute Neuts (auto) Neutrophils % Lymphocytes % Monocytes % Eosinophils % Basophils % Nucleated RBC % PT with INR 19.70 H INR 1.66 H PTT (Actin FS) 32.6 Sodium 141 Potassium 4.4 Chloride 106 Carbon Dioxide 30 Anion Gap 6 L BUN 32 H Creatinine 1.3 Creat Clearance w eGFR 39.12 POC Glucometer Random Glucose 120 H Hemoglobin A1c % 5.5 Calcium 8.1 L Phosphorus 4.6 Magnesium 2.1 Total Bilirubin 0.5 AST 13 L ALT 12 L Alkaline Phosphatase 58 Creatine Kinase 34 Troponin I < 0.02 Total Protein 6.3 L Albumin 3.5 Stool Occult Blood 02/26/18 02/26/18 12:56 18:00 WBC RBC Hgb Hct MCV MCH MCHC RDW Plt Count MPV Absolute Neuts (auto) Neutrophils % Lymphocytes % Monocytes % Eosinophils % Basophils % Nucleated RBC % PT with INR INR PTT (Actin FS) Sodium Potassium Chloride Carbon Dioxide Anion Gap BUN Creatinine Creat Clearance w eGFR POC Glucometer [phone] Random Glucose Hemoglobin A1c % Calcium Phosphorus Magnesium Total Bilirubin AST ALT Alkaline Phosphatase Creatine Kinase Troponin I < 0.02 Total Protein Albumin Stool Occult Blood Active Medications Generic Name Dose Route Start Last Admin Trade Name Freq PRN Reason Stop Dose Admin Amlodipine Besylate 10 mg 02/26/18 10:30 02/26/18 13:00 Norvasc - PO 10 mg DAILY PK Administration Apixaban 5 mg 02/26/18 10:00 02/26/18 13:00 Eliquis - PO 5 mg BID PK Administration Furosemide 40 mg 02/26/18 14:00 02/26/18 15:37 Lasix Injection - IVPUSH 40 mg BID@0600,1400 PK Administration Labetalol HCl 200 mg 02/26/18 10:30 02/26/18 13:00 Normodyne - PO 200 mg BID PK Administration Lisinopril 40 mg 02/26/18 10:30 02/26/18 13:00 Prinivil PO 40 mg DAILY PK Administration Sertraline HCl 50 mg 02/26/18 10:45 02/26/18 13:00 Zoloft - PO 50 mg DAILY PK Administration ASSESSMENT/PLAN: Patient is an 82 year old female with history of asthma, COPD, Afib (on Elequis ) DM, HTN, HLD, arthritis presents with shortness of breath for the past 3 days. Shortness of breath -Likely secondary to CHF exacerbation. CXR shows congestion in b/l lower lung lobes Lower extremity swelling worst at right lower extremity -Lasix 40mg BID -F/U Cardiology consult (Dr. Stewart) -F/U cardiac ECHO Right lower extremity pain and swelling -F/U doppler lower extremities to rule out DVT -Xray right foot to rule out fracture Afib -Eliquis 5mg BID HTN -Labetalol 200mg BID -Amlodipine 10mg daily -Lisinopril 40mg daily HLD -Lipitor 20mg daily Anxiety, depression -Sertaline 50mg daily DM -A1c is 5.5% -D/C ISS, and BGM -Patient will follow up outpatient with primary care physician concerning reinstating any diabetes medications FEN -No IV fluids -Follow CMP -Sodium restricted diet Prophylaxis -On Eliquis for Afib Disposition -Continue care in medical surgical floor Visit type - Emergency Visit Emergency Visit: Yes ED Registration Date: 02/25/18 Care time: The patient presented to the Emergency Department on the above date and was hospitalized for further evaluation of their emergent condition. - New Patient This patient is new to me today: Yes Date on this admission: 02/26/18 - Critical Care Critical Care patient: No - Discharge Referral Referred to [facility] No
[2018-02-26] MEDS ORDERED: FLU VACCINE QUAD 60 MCG/0.5 ML (MDV 18-19) IM ONE (20:55)
[2018-02-27] MEDS: FUROSEMIDE 40 MG/4 ML INJECTABLE VIAL IVPUSH SCH ×2 (06:21→14:55)
[2018-02-27 06:45] LABS: HEMATOCRIT 28.7 % (32.4-45.2); HEMOGLOBIN 9.1 GM/dL (10.7-15.3); MCH 27.6 pg (25.7-33.7); MCHC 31.7 g/dl (32.0-36.0); MEAN CELL VOLUME 87.1 fl (80-96); MEAN PLT VOLUME 9.2 fl (7.5-11.1); PLATELET COUNT 149 K/MM3 (134-434); RDW 16.7 % (11.6-15.6); WHITE BLOOD COUNT 5.6 K/mm3 (4.0-10.0)
[2018-02-27] MEDS: ALBUTEROL SO4 2.5/IPRATROPIUM 0.5 INH SOL 3 ML VIAL.NEB. NEB PRN ×2 (06:45→09:47)
[2018-02-27 07:33] LABS: ANION GAP 5 MMOL/L (8-16); BLOOD UREA NITROGEN 31 mg/dL (7-18); CALCIUM 7.9 mg/dL (8.5-10.1); CHLORIDE 109 mmol/L (98-107); CO2 31 mmol/L (21-32); CREATININE 1.1 mg/dL (0.55-1.3); GLUCOSE,RANDOM 122 mg/dL (74-106); POTASSIUM 4.4 mmol/L (3.5-5.1); SODIUM 145 mmol/L (136-145)
--- NOTE | 2018-02-27 08:07 | PN ---
Physical Exam: SUBJECTIVE: Patient seen and examined at bedside this morning. Endorses shortness of breath, and difficulty taking a deep breath. Still complains of cough with whitish sputum that is resolving. Denies fevers, chills, shortness of breath, chest pain, palpitations, abdominal pain, nausea, vomiting, diarrhea. OBJECTIVE: Vital Signs Period Temp Pulse Resp BP Sys/Mo Pulse Ox Last 24 Hr 61 F-98.3 F 60-78 20-24 136-173/54-93 93-98 GENERAL: The patient is awake, alert, and fully oriented, in no acute distress. HEAD: Normal with no signs of trauma. EYES: PERRL, extraocular movements intact, sclera anicteric, conjunctiva clear. ENT: Oropharynx mildly erythematous, without exudates, moist mucous membranes. NECK: Trachea midline, full range of motion, supple without lymphadenopathy LUNGS: Poor inspiratory effort and air entery b/l. Wheezes, and crackles at lung lower lobes b/l. No accessory muscle use noted. HEART: Irregular rate and rhythm, S1, S2. Holosystolic 3/6 murmur with radiation to b/l carotids appreciated. ABDOMEN: Soft, nontender, nondistended, normoactive bowel sounds, no guarding, no rebound, no hepatosplenomegaly. EXTREMITIES: 2+ radial and dorsalis pedis pulses b/l. Warm. Right leg 2+ pitting edema, painful, erythematous compared to left. Right foot with bruise at base of first toe, painful to palpation at dorsum and ventral aspect of foot. GENITAL: Examined with nurse Ena as information systems technician. Noted Crandall catheter without erythema at insertion site. No drainage. 1cm X 0.5 cm raised lesion simple cyst vs folliculitis noted. Clean, non erythematous, non draining. Nontender to palpation. NEUROLOGICAL: Cranial nerves II through XII grossly intact. strength 3/5 b/l upper extremities limited by pain from arthritis. Strength 3/5 b/l lower extremities limited to pain and swelling. PSYCH: Normal mood, normal affect. Laboratory Results - last 24 hr 02/26/18 02/26/18 02/27/18 12:56 18:00 06:00 WBC RBC Hgb Hct MCV MCH MCHC RDW Plt Count MPV Sodium 145 Potassium 4.4 Chloride 109 H Carbon Dioxide 31 Anion Gap 5 L BUN 31 H Creatinine 1.1 Creat Clearance w eGFR 47.43 POC Glucometer 138.87454 Random Glucose 122 H Calcium 7.9 L Ferritin 80.0 Troponin I < 0.02 Vitamin B12 428 02/27/18 06:00 WBC 5.6 RBC 3.30 L Hgb 9.1 L Hct 28.7 L MCV 87.1 MCH 27.6 MCHC 31.7 L RDW 16.7 H Plt Count 149 MPV 9.2 Sodium Potassium Chloride Carbon Dioxide Anion Gap BUN Creatinine Creat Clearance w eGFR POC Glucometer Random Glucose Calcium Ferritin Troponin I Vitamin B12 Active Medications Generic Name Dose Route Start Last Admin Trade Name Freq PRN Reason Stop Dose Admin Albuterol/Ipratropium 1 amp 02/27/18 06:27 02/27/18 06:45 Duoneb - NEB 1 amp Q4H PRN Administration ASTHMA Amlodipine Besylate 10 mg 02/26/18 10:30 02/26/18 13:00 Norvasc - PO 10 mg DAILY PK Administration Apixaban 5 mg 02/26/18 10:00 02/26/18 22:10 Eliquis - PO 5 mg BID PK Administration Furosemide 40 mg 02/26/18 14:00 02/27/18 06:21 Lasix Injection - IVPUSH 40 mg BID@0600,1400 PK Administration Hydralazine HCl 25 mg 02/27/18 10:00 Apresoline - PO BID PK Labetalol HCl 200 mg 02/26/18 10:30 02/26/18 22:10 Normodyne - PO 200 mg BID PK Administration Lisinopril 40 mg 02/26/18 10:30 02/26/18 13:00 Prinivil PO 40 mg DAILY PK Administration Sertraline HCl 50 mg 02/26/18 10:45 02/26/18 13:00 Zoloft - PO 50 mg DAILY PK Administration ASSESSMENT/PLAN: Patient is an 82 year old female with history of asthma, COPD, Afib (on Elequis ) DM, HTN, HLD, arthritis presents with shortness of breath for the past 3 days prior to admission Shortness of breath -Likely secondary to CHF exacerbation. CXR shows improving congestion in b/l lower lung lobes Lower extremity swelling worst at right lower extremity -Lasix 40mg BID -Duonebs QID, and Q4H PRN -Advair 1 puff BID -Cardiology consult (Dr. Stewart) appreciated. -F/U cardiac ECHO -Monitor intake, output, daily weights Right lower extremity pain and swelling -Pain improving today upon exam -Doppler lower extremities- No evidence of DVT b/l lower extremities. -Xray right foot shows no fracture. Genital Cyst -Patient has history of vaginal cyst that was treated with Augmentin. She had completed 7 days/ 10 day course -Does not appear erythematous, draining, upon exam. No tenderness to palpation. -Continue Augmentin 875-125mg PO BID for three days. Afib -Eliquis 5mg BID HTN -Labetalol 400mg BID -Amlodipine 10mg daily -Lisinopril 40mg daily HLD -Lipitor 20mg PO QHS Anxiety, depression -Sertaline 50mg daily DM -A1c is 5.5% -D/C ISS, and BGM -Patient will follow up outpatient with primary care physician concerning reinstating any diabetes medications FEN -No IV fluids -Follow CMP -Sodium restricted diet Prophylaxis -On Eliquis for Afib Disposition -Continue care in medical surgical floor Visit type - Emergency Visit Emergency Visit: Yes ED Registration Date: 02/25/18 Care time: The patient presented to the Emergency Department on the above date and was hospitalized for further evaluation of their emergent condition. - New Patient This patient is new to me today: No - Critical Care Critical Care patient: No - Discharge Referral Referred to [facility] Med P.C.: No
[2018-02-27] MEDS: amLODIPine BESYLATE 10 MG TABLET (FP) PO SCH (09:20)
[2018-02-27] MEDS: SERTRALINE HCL 50 MG TABLET (FP) PO SCH (09:20)
[2018-02-27] MEDS: LISINOPRIL 20 MG TABLET (FP) PO SCH (09:20)
[2018-02-27] MEDS: APIXABAN 5 MG TABLET PO SCH ×2 (09:20→22:04)
[2018-02-27] MEDS: LABETALOL HCL 200 MG TABLET (FP) PO SCH ×3 (09:20→22:04)
[2018-02-27] MEDS ORDERED: hydrALAZINE HCL 25 MG TABLET (FP) PO SCH (10:00)
[2018-02-27] MEDS: ALBUTEROL SO4 2.5/IPRATROPIUM 0.5 INH SOL 3 ML VIAL.NEB. NEB SCH ×3 (11:52→20:31)
--- NOTE | 2018-02-27 12:32 | PN ---
Progress Note, Physician History of Present Illness: Shortness of breath with exertion, decreased exercise capacity, bilateral LE swelling, orthopnea, chest tightness improving with diuresis and BP control. - Current Medication List Current Medications: Active Medications Acetaminophen (Tylenol -) 650 mg PO Q6H PRN PRN Reason: Fever Or Pain Albuterol/Ipratropium (Duoneb -) 1 amp NEB Q4H PRN PRN Reason: ASTHMA Last Admin: 02/27/18 09:47 Dose: 1 amp Albuterol/Ipratropium (Duoneb -) 1 amp NEB RQID [facility] Last Admin: 02/27/18 11:52 Dose: 1 amp Amlodipine Besylate (Norvasc -) 10 mg PO DAILY [facility] Last Admin: 02/27/18 09:20 Dose: 10 mg Apixaban (Eliquis -) 5 mg PO BID [facility] Last Admin: 02/27/18 09:20 Dose: 5 mg Furosemide (Lasix Injection -) 40 mg IVPUSH BID@0600,1400 [facility] Last Admin: 02/27/18 06:21 Dose: 40 mg Hydralazine HCl (Apresoline -) 25 mg PO BID [facility] Last Admin: 02/27/18 09:20 Dose: 25 mg Labetalol HCl (Normodyne -) 200 mg PO BID [facility] Last Admin: 02/27/18 09:20 Dose: 200 mg Lisinopril (Prinivil) 40 mg PO DAILY [facility] Last Admin: 02/27/18 09:20 Dose: 40 mg Fluticasone/Salmeterol (Advair 100mcg/50mcg -) 1 puff IH BID [facility] Sertraline HCl (Zoloft -) 50 mg PO DAILY [facility] Last Admin: 02/27/18 09:20 Dose: 50 mg - Objective Vital Signs: Vital Signs Temperature 98.0 F 02/27/18 09:00 Pulse Rate 68 02/27/18 09:00 Respiratory Rate 18 02/27/18 09:00 Blood Pressure 166/64 02/27/18 09:00 O2 Sat by Pulse Oximetry (%) 93 L 02/26/18 21:05 Constitutional: Yes: No Distress, Calm Neck: Yes: Supple Cardiovascular: Yes: Regular Rate and Rhythm, Murmur (2/6 SM) Respiratory: Yes: Regular, Diminished, On Nasal O2 Gastrointestinal: Yes: Normal Bowel Sounds, Soft, Abdomen, Obese Edema: Yes Edema: LLE: Trace, RLE: Trace Labs: CBC, BMP 02/27/18 06:00 02/27/18 06:00 INR, PTT INR 1.66 (0.83-1.09) H 02/26/18 06:00 - ....Imaging Chest X-ray: Report Reviewed (Improved congestion) EKG: Report Reviewed (Tele: NSR) Problem List - Problems (1) Acute on chronic diastolic (congestive) heart failure Code(s): I50.33 - ACUTE ON CHRONIC DIASTOLIC (CONGESTIVE) HEART FAILURE (2) [id number] kidney injury Code(s): N17.9 - ACUTE KIDNEY FAILURE, UNSPECIFIED; N18.9 - CHRONIC KIDNEY DISEASE, UNSPECIFIED Qualifiers: Acute renal failure type: unspecified Chronic kidney disease stage: stage 2 (mild) Qualified Code(s): N17.9 - Acute kidney failure, unspecified; N18.2 - Chronic kidney disease, stage 2 (mild) (3) Anemia Code(s): D64.9 - ANEMIA, UNSPECIFIED Qualifiers: Anemia type: unspecified type Qualified Code(s): D64.9 - Anemia, unspecified (4) Dyspnea Code(s): R06.00 - DYSPNEA, UNSPECIFIED Qualifiers: Dyspnea type: dyspnea on exertion Qualified Code(s): R06.09 - Other forms of dyspnea (5) HTN (hypertension) Code(s): I10 - ESSENTIAL (PRIMARY) HYPERTENSION Qualifiers: Hypertension type: essential hypertension Qualified Code(s): I10 - Essential (primary) hypertension (6) Aortic valve stenosis Code(s): I35.0 - NONRHEUMATIC AORTIC (VALVE) STENOSIS Qualifiers: Cardiac valve disease etiology: nonrheumatic Qualified Code(s): I35.0 - Nonrheumatic aortic (valve) stenosis (7) Atrial fibrillation Code(s): I48.91 - UNSPECIFIED ATRIAL FIBRILLATION Qualifiers: Atrial fibrillation type: persistent Qualified Code(s): I48.1 - Persistent atrial fibrillation (8) COPD (chronic obstructive pulmonary disease) Code(s): J44.9 - CHRONIC OBSTRUCTIVE PULMONARY DISEASE, UNSPECIFIED Qualifiers: COPD type: unspecified COPD Qualified Code(s): J44.9 - Chronic obstructive pulmonary disease, unspecified (9) Diabetes mellitus Code(s): E11.9 - TYPE 2 DIABETES MELLITUS WITHOUT COMPLICATIONS Qualifiers: Diabetes mellitus type: type 2 Diabetes mellitus chcf insulin use: without chcf use Diabetes mellitus complication status: without complication Qualified Code(s): E11.9 - Type 2 diabetes mellitus without complications (10) Hypercholesterolemia Code(s): E78.00 - PURE HYPERCHOLESTEROLEMIA, UNSPECIFIED Assessment/Plan 09/10/2017 Echo: Normal LV size and fxn, LVEF 65%, mild cLVH, abnl LV compliance , mod TRINI, mild MR, TR, mod MG 25 mmHg 1. Acute on chronic LV diastolic failure with moderate improving 2. COPD 3. Persistent atrial fibrillation with [id number] score of 7 on Eliquis 4. Type 2 diabetes mellitus 5. Hypertensive urgency 6. Hypercholesterolemia 7. Acute on chronic kidney disease 8. Anemia 9. Degenerative joint disease post right THR PLAN: 1. IV diuresis with monitor diuretic response, renal fxn and electrolytes 2. Ruled out for [place], echo to reassess ventricular and valve fxn 3. Increase Labetalol 400 BID, Lisinopril 40 qd, Eliquis 5 bid, Lipitor 20 qhs, and Amlodipine 10 qd, d/c hydralazine 25 bid,
[2018-02-27] MEDS: FLUTICASONE/SALMETEROL 100 MCG/50 MCG DISKUS IH SCH ×2 (12:56→22:04)
[2018-02-27] MEDS ORDERED: LABETALOL HCL 200 MG TABLET (FP) PO ONE (13:30)
--- NOTE | 2018-02-27 14:06 | PN ---
Teaching Attending Note Name of Resident: Edgard Rivers ATTENDING PHYSICIAN STATEMENT I saw and evaluated the patient. I reviewed the resident's note and discussed the case with the resident. I agree with the resident's findings and plan as documented. SUBJECTIVE: No fever or chills. SOB is better. minimal cough . no CP . LE edema is better OBJECTIVE: NAD , looks much more comfortable today CV: irreg irreg. 3/6 SM at RUSB with radiation to carotids and back. 3/6 SM At apex with radiation to axilla Lungs: fine crackles at bases only and prolonged exp phase Ext :1+ pitting edema. R > L . R dorsal foot with a bruise and improved edema. ASSESSMENT AND PLAN: 82 y/o lady with h/o HTN, HLP. Diastolic heart failure, COPD who presented with SOB and was found to have acute CHF exacerbation 1- Acute diastolic CHF exacerbation. symptomatically significantly improved. Net Neg 500 cc yesterday and weight dropped by 2 pounds. Not sure the weight and I&O documentation were correct yesterday. - cont lasix BID - echo pending - control BP 2- HTN : cont lisinopril and norvasc. home hydralazine replaced with increased dose of labetalol 3- h/o DM. A1c is now 5.5 . 4- R foot edema and bruise 2/2 trauma . - no fracture on xray 5- Normocytic anemia: iron studies pending . B12 nl HLOC
[2018-02-27] MEDS: ACETAMINOPHEN 325 MG TABLET (FP) PO PRN ×2 (14:56→22:04)
[2018-02-27] MEDS ORDERED: POLYETHYLENE GLYCOL 3350 119 GM BTL PO ONE (17:57)
[2018-02-27] MEDS: DOCUSATE SODIUM 100 MG CAPSULE (FP) PO SCH (18:35)
[2018-02-27] MEDS: AMOX TR/POT CLAV 875MG/125MG TABLETS (FP) PO SCH (18:35)
[2018-02-27] MEDS ORDERED: PT OWN MED DRAWER 7, Y5N ONE ×2 (21:59→22:11)
[2018-02-27] MEDS ORDERED: SENNOSIDES 8.6MG TABLET (FP) PO PRN (22:00)
[2018-02-27] MEDS ORDERED: ATORVASTATIN CA 20 MG TABLET (FP) PO SCH (22:00)
[2018-02-27] MEDS: ATORVASTATIN CA 20 MG TABLET (FP) PO SCH (22:04)
[2018-02-28] MEDS: FUROSEMIDE 40 MG/4 ML INJECTABLE VIAL IVPUSH SCH ×2 (05:45→13:51)
[2018-02-28 06:06] LABS: SERUM IRON SATURATION 9 % (15-55); TOTAL IRON BINDING CAPACITY 276 ug/dL (250-450); UIBC 252 ug/dL (118-369)
--- NOTE | 2018-02-28 06:41 | PN ---
Physical Exam: SUBJECTIVE: Patient seen and examined at bedside this morning. She admits cough is diminishing still with clear to light-yellow sputum. Endorses slight shortness of breath and wheezing that is improved with nebulizer treatments. Admits improvement in right lower extremity swelling, and diminishing right foot pain. Denies fevers, chills, shortness of breath, chest pain, palpitations , abdominal pain, nausea, vomiting, diarrhea. OBJECTIVE: Vital Signs Period Temp Pulse Resp BP Sys/Mo Pulse Ox Last 24 Hr 97.4 F-98.2 F 60-88 18-20 136-166/47-68 93-94 GENERAL: The patient is awake, alert, and fully oriented, in no acute distress. HEAD: Normal with no signs of trauma. EYES: PERRL, extraocular movements intact, sclera anicteric, conjunctiva clear. ENT: Oropharynx mildly erythematous, without exudates, moist mucous membranes. NECK: Trachea midline, full range of motion, supple without lymphadenopathy LUNGS: Poor inspiratory effort and air entery b/l. Faint wheezes, and crackles at lung lower lobes b/l. No accessory muscle use noted. HEART: Irregular rate and rhythm, S1, S2. Holosystolic 3/6 murmur with radiation to b/l carotids appreciated. ABDOMEN: Soft, nontender, nondistended, normoactive bowel sounds, no guarding, no rebound, no hepatosplenomegaly. EXTREMITIES: 2+ radial and dorsalis pedis pulses b/l. Warm. Right leg 1+ pitting edema, painful, erythematous compared to left. Right foot with bruise at base of first toe, tender to palpation at dorsum and ventral aspect of foot. 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 Noted Crandall catheter without erythema at insertion site. No drainage. 1cm X 0.5 cm raised lesion simple cyst vs folliculitis noted. Clean, non erythematous, non draining. Nontender to palpation. NEUROLOGICAL: Cranial nerves II through XII grossly intact. strength 3/5 b/l upper extremities limited by pain from arthritis. Strength 3/5 b/l lower extremities limited to pain and swelling. PSYCH: Normal mood, normal affect. Laboratory Results - last 24 hr 02/27/18 02/27/18 02/27/18 06:00 06:00 06:00 WBC 5.6 RBC 3.30 L Hgb 9.1 L Hct 28.7 L MCV 87.1 MCH 27.6 MCHC 31.7 L RDW 16.7 H Plt Count 149 MPV 9.2 Sodium 145 Potassium 4.4 Chloride 109 H Carbon Dioxide 31 Anion Gap 5 L BUN 31 H Creatinine 1.1 Creat Clearance w eGFR 47.43 Random Glucose 122 H Calcium 7.9 L Iron 24 L TIBC 276 Iron Saturation 9 L Ferritin 80.0 Vitamin B12 428 Active Medications Generic Name Dose Route Start Last Admin Trade Name Freq PRN Reason Stop Dose Admin Acetaminophen 650 mg 02/27/18 12:03 Tylenol - PO Q6H PRN Fever Acetaminophen 650 mg 02/27/18 14:28 02/27/18 22:04 Tylenol - PO 650 mg Q6H PRN Administration PAIN Albuterol/Ipratropium 1 amp 02/27/18 06:27 02/27/18 09:47 Duoneb - NEB 1 amp Q4H PRN Administration ASTHMA Albuterol/Ipratropium 1 amp 02/27/18 12:00 02/27/18 20:31 Duoneb - NEB 1 amp RQID PK Administration Amlodipine Besylate 10 mg 02/26/18 10:30 02/27/18 09:20 Norvasc - PO 10 mg DAILY PK Administration Amoxicillin/Clavulanate Potassium 1 tab 02/27/18 17:30 02/27/18 18:35 Augmentin - 875mg Tablet PO 1 tab BIDWM PK Administration Apixaban 5 mg 02/26/18 10:00 02/27/18 22:04 Eliquis - PO 5 mg BID PK Administration Atorvastatin Calcium 20 mg 02/27/18 22:00 02/27/18 22:04 Lipitor - PO 20 mg HS PK Administration Docusate Sodium 100 mg 02/27/18 18:00 02/27/18 18:35 Colace - PO 100 mg DAILY PK Administration Furosemide 40 mg 02/26/18 14:00 02/28/18 05:45 Lasix Injection - IVPUSH 40 mg BID@0600,1400 PK Administration Labetalol HCl 400 mg 02/27/18 13:30 02/27/18 22:04 Normodyne - PO 400 mg BID PK Administration Lisinopril 40 mg 02/26/18 10:30 10/04/18 09:20 Prinivil PO 40 mg DAILY PK Administration Fluticasone/Salmeterol 1 puff 02/27/18 11:45 02/27/18 22:04 Advair 100mcg/50mcg - IH 1 puff BID PK Administration Senna 1 tab 02/27/18 22:00 Senna - PO HS PRN CONSTIPATION Sertraline HCl 50 mg 02/26/18 10:45 02/27/18 09:20 Zoloft - PO 50 mg DAILY PK Administration ASSESSMENT/PLAN: Patient is an 82 year old female with history of asthma, COPD, Afib (on Elequis ) DM, HTN, HLD, arthritis presents with shortness of breath for the past 3 days prior to admission Shortness of breath -Likely secondary to CHF exacerbation. CXR today still shows congestion in b/l lower lung lobes Lower extremity swelling worst at right lower extremity, improving -Lasix 40mg BID. Will consider switching to oral lasix tomorrow -Duonebs QID, and Q4H PRN -Advair 1 puff BID -Cardiology consult (Dr. Stewart) appreciated. -Cardiac ECHO shows LV systolic function is normal, EF 55-60%. RV normal in size , function. RV systolic pressure elevated at 30-40mmHg. -Monitor intake, output, daily weights Right lower extremity pain and swelling -Pain improving today upon exam -Doppler lower extremities- No evidence of DVT b/l lower extremities. -Xray right foot shows no fracture. Genital Cyst -Patient has history of vaginal cyst that was treated with Augmentin. She had completed 9 days/ 10 day course -Continue Augmentin 875-125mg PO BID for tomorrow. Afib -Eliquis 5mg PO BID HTN -Labetalol 400mg BID -Amlodipine 10mg daily -Lisinopril 40mg daily HLD -Lipitor 20mg PO QHS Anxiety, depression -Sertaline 50mg daily History of diabetes -A1c is 5.5% -Patient will follow up outpatient with primary care physician concerning reinstating any diabetes medications FEN -No IV fluids -Follow CMP -Sodium restricted diet Prophylaxis -On Eliquis for Afib Disposition -Continue care in medical surgical floor Visit type - Emergency Visit Emergency Visit: Yes ED Registration Date: 02/25/18 Care time: The patient presented to the Emergency Department on the above date and was hospitalized for further evaluation of their emergent condition. - New Patient This patient is new to me today: No - Critical Care Critical Care patient: No - Discharge Referral Referred to [facility] Med P.C.: No
[2018-02-28 07:10] LABS: HEMATOCRIT 29.1 % (32.4-45.2); HEMOGLOBIN 9.3 GM/dL (10.7-15.3); MCH 27.7 pg (25.7-33.7); MEAN CELL VOLUME 86.5 fl (80-96); MEAN PLT VOLUME 9.2 fl (7.5-11.1); PLATELET COUNT 146 K/MM3 (134-434); RBC 3.36 M/mm3 (3.60-5.2); RDW 16.3 % (11.6-15.6); WHITE BLOOD COUNT 5.8 K/mm3 (4.0-10.0)
[2018-02-28] MEDS: ALBUTEROL SO4 2.5/IPRATROPIUM 0.5 INH SOL 3 ML VIAL.NEB. NEB SCH ×4 (07:25→20:24)
[2018-02-28 07:28] LABS: ANION GAP 5 MMOL/L (8-16); BLOOD UREA NITROGEN 34 mg/dL (7-18); CALCIUM 8.1 mg/dL (8.5-10.1); CHLORIDE 103 mmol/L (98-107); CO2 34 mmol/L (21-32); CREATININE 1.2 mg/dL (0.55-1.3); GLUCOSE,RANDOM 137 mg/dL (74-106); POTASSIUM 4.1 mmol/L (3.5-5.1); SODIUM 141 mmol/L (136-145)
--- NOTE | 2018-02-28 09:04 | PN ---
Progress Note, Physician History of Present Illness: Shortness of breath with exertion, decreased exercise capacity, bilateral LE swelling, orthopnea, chest tightness improving with diuresis and BP control. - Current Medication List Current Medications: Active Medications Acetaminophen (Tylenol -) 650 mg PO Q6H PRN PRN Reason: Fever Acetaminophen (Tylenol -) 650 mg PO Q6H PRN PRN Reason: PAIN Last Admin: 02/27/18 22:04 Dose: 650 mg Albuterol/Ipratropium (Duoneb -) 1 amp NEB Q4H PRN PRN Reason: ASTHMA Last Admin: 02/27/18 09:47 Dose: 1 amp Albuterol/Ipratropium (Duoneb -) 1 amp NEB RQID [facility] Last Admin: 02/28/18 07:25 Dose: 1 amp Amlodipine Besylate (Norvasc -) 10 mg PO DAILY [facility] Last Admin: 02/27/18 09:20 Dose: 10 mg Amoxicillin/Clavulanate Potassium (Augmentin - 875mg Tablet) 1 tab PO BIDWM [facility] Last Admin: 02/27/18 18:35 Dose: 1 tab Apixaban (Eliquis -) 5 mg PO BID [facility] Last Admin: 02/27/18 22:04 Dose: 5 mg Atorvastatin Calcium (Lipitor -) 20 mg PO HS [facility] Last Admin: 02/27/18 22:04 Dose: 20 mg Docusate Sodium (Colace -) 100 mg PO DAILY [facility] Last Admin: 02/27/18 18:35 Dose: 100 mg Furosemide (Lasix Injection -) 40 mg IVPUSH BID@0600,1400 [facility] Last Admin: 02/28/18 05:45 Dose: 40 mg Labetalol HCl (Normodyne -) 400 mg PO BID [facility] Last Admin: 02/27/18 22:04 Dose: 400 mg Lisinopril (Prinivil) 40 mg PO DAILY [facility] Last Admin: 02/27/18 09:20 Dose: 40 mg Fluticasone/Salmeterol (Advair 100mcg/50mcg -) 1 puff IH BID [facility] Last Admin: 02/27/18 22:04 Dose: 1 puff Senna (Senna -) 1 tab PO HS PRN PRN Reason: CONSTIPATION Sertraline HCl (Zoloft -) 50 mg PO DAILY [facility] Last Admin: 02/27/18 09:20 Dose: 50 mg - Objective Vital Signs: Vital Signs Temperature 97.6 F 02/28/18 06:00 Pulse Rate 60 02/28/18 06:00 Respiratory Rate 18 02/28/18 06:00 Blood Pressure 139/54 L 02/28/18 06:00 O2 Sat by Pulse Oximetry (%) 93 L 02/27/18 21:00 Constitutional: Yes: No Distress, Calm Neck: Yes: Supple Cardiovascular: Yes: Regular Rate and Rhythm, Murmur (2/6 SM) Respiratory: Yes: Regular, Diminished Gastrointestinal: Yes: Normal Bowel Sounds, Soft, Abdomen, Obese Edema: No Labs: CBC, BMP 02/28/18 06:00 02/28/18 06:00 INR, PTT INR 1.66 (0.83-1.09) H 02/26/18 06:00 - ....Imaging Chest X-ray: Pending EKG: Report Reviewed (Tele: SR) Problem List - Problems (1) Acute on chronic diastolic (congestive) heart failure Code(s): I50.33 - ACUTE ON CHRONIC DIASTOLIC (CONGESTIVE) HEART FAILURE (2) [id number]-synvvdd kidney injury Code(s): N17.9 - ACUTE KIDNEY FAILURE, UNSPECIFIED; N18.9 - CHRONIC KIDNEY DISEASE, UNSPECIFIED Qualifiers: Acute renal failure type: unspecified Chronic kidney disease stage: stage 2 (mild) Qualified Code(s): N17.9 - Acute kidney failure, unspecified; N18.2 - Chronic kidney disease, stage 2 (mild) (3) Anemia Code(s): D64.9 - ANEMIA, UNSPECIFIED Qualifiers: Anemia type: unspecified type Qualified Code(s): D64.9 - Anemia, unspecified (4) Dyspnea Code(s): R06.00 - DYSPNEA, UNSPECIFIED Qualifiers: Dyspnea type: dyspnea on exertion Qualified Code(s): R06.09 - Other forms of dyspnea (5) HTN (hypertension) Code(s): I10 - ESSENTIAL (PRIMARY) HYPERTENSION Qualifiers: Hypertension type: essential hypertension Qualified Code(s): I10 - Essential (primary) hypertension (6) Aortic valve stenosis Code(s): I35.0 - NONRHEUMATIC AORTIC (VALVE) STENOSIS Qualifiers: Cardiac valve disease etiology: nonrheumatic Qualified Code(s): I35.0 - Nonrheumatic aortic (valve) stenosis (7) Atrial fibrillation Code(s): I48.91 - UNSPECIFIED ATRIAL FIBRILLATION Qualifiers: Atrial fibrillation type: persistent Qualified Code(s): I48.1 - Persistent atrial fibrillation (8) COPD (chronic obstructive pulmonary disease) Code(s): J44.9 - CHRONIC OBSTRUCTIVE PULMONARY DISEASE, UNSPECIFIED Qualifiers: COPD type: unspecified COPD Qualified Code(s): J44.9 - Chronic obstructive pulmonary disease, unspecified (9) Diabetes mellitus Code(s): E11.9 - TYPE 2 DIABETES MELLITUS WITHOUT COMPLICATIONS Qualifiers: Diabetes mellitus type: type 2 Diabetes mellitus secretary of state insulin use: without secretary of state use Diabetes mellitus complication status: without complication Qualified Code(s): E11.9 - Type 2 diabetes mellitus without complications (10) Hypercholesterolemia Code(s): E78.00 - PURE HYPERCHOLESTEROLEMIA, UNSPECIFIED Assessment/Plan 09/10/2017 Echo: Normal LV size and fxn, LVEF 65%, mild cLVH, abnl LV compliance , mod TRINI, mild MR, TR, mod MG 25 mmHg 02/28/2018 Echo: Normal LV szie and fxn LVEF 55-60%, restrictive physiology, mild LAE, mild MR, TR RVSP 40-40 mmHg, mod-severe CHARI 0.80 cm^2, MG 32 mmHg 1. Acute on chronic LV diastolic failure with moderate-severe improving 2. COPD 3. Persistent atrial fibrillation with [id number] score of 7 on Eliquis 4. Type 2 diabetes mellitus 5. Hypertensive urgency 6. Hypercholesterolemia 7. Acute on chronic kidney disease 8. Anemia 9. Degenerative joint disease post right THR PLAN: 1. Resume oral diuresis with monitor diuretic response, renal fxn and electrolytes 2. Ruled out for [place], repeat echo to reassess ventricular and valve fxn in 6 months to document progression and R&LHc 3. Continue Labetalol 400 BID, Lisinopril 40 qd, Eliquis 5 bid, Lipitor 20 qhs, and Amlodipine 10 qd 4. Mobilize and d/c planning
[2018-02-28] MEDS: LISINOPRIL 20 MG TABLET (FP) PO SCH (09:27)
[2018-02-28] MEDS: amLODIPine BESYLATE 10 MG TABLET (FP) PO SCH (09:27)
[2018-02-28] MEDS: LABETALOL HCL 200 MG TABLET (FP) PO SCH ×2 (09:27→22:09)
[2018-02-28] MEDS: APIXABAN 5 MG TABLET PO SCH ×2 (09:27→22:08)
[2018-02-28] MEDS: SERTRALINE HCL 50 MG TABLET (FP) PO SCH (09:27)
[2018-02-28] MEDS: AMOX TR/POT CLAV 875MG/125MG TABLETS (FP) PO SCH ×2 (09:28→16:29)
[2018-02-28] MEDS: FLUTICASONE/SALMETEROL 100 MCG/50 MCG DISKUS IH SCH ×2 (09:28→22:10)
[2018-02-28] MEDS: DOCUSATE SODIUM 100 MG CAPSULE (FP) PO SCH (09:28)
--- NOTE | 2018-02-28 10:32 | ECHO ---
Name: KOBY RITCHIE Exam:Adult Echocardiogram Study Date: 02/27/2018 01:35 PM Age: 82 yrs Reason For Study: Diastolic heart failure Height: 60 in Weight: 185 lb BSA: 1.8 m2 MMode/2D Measurements & Calculations IVSd: 1.4 cm Ao root diam: 2.3 cm LVIDd: 4.6 cm LA dimension: 3.5 cm LVIDs: 3.1 cm LVPWd: 0.85 cm LVPWs: 1.9 cm EDV(Teich): 96.9 ml ESV(Teich): 38.8 ml LVOT diam: 2.0 cm Doppler Measurements & Calculations MV E max trae: 153.0 cm/sec Ao V2 max: 358.1 cm/sec MV A max trae: 43.3 cm/sec Ao max P.4 mmHg MV E/A: 3.5 Ao V2 mean: 264.5 cm/sec MV dec time: 0.23 sec Ao mean P.6 mmHg Ao V2 VTI: 92.0 cm CHARI(I,D): 0.80 cm2 CHARI(V,D): 0.96 cm2 LV V1 max P.7 mmHg MR max trae: 640.2 cm/sec LV V1 mean P.8 mmHg MR max P.3 mmHg LV V1 max: 107.2 cm/sec LV V1 mean: 63.1 cm/sec LV V1 VTI: 22.9 cm SV(LVOT): 73.5 ml TR max trae: 271.7 cm/sec TR max P.7 mmHg PA V2 max: 98.4 cm/sec Med Peak E' Trae: 6.3 cm/sec PA max P.9 mmHg Med E/e': 24.5 Lat Peak E' Trae: 6.4 cm/sec Lat E/e': 24.1 Left Ventricle Left ventricular systolic function is normal. Ejection Fraction = 55-60%. The transmitral spectral Do ppler flow pattern is suggestive of restrictive physiology. Right Ventricle The right ventricle is normal in size and function. Atria The left atrium is mildly dilated. Mitral Valve There is mild mitral annular calcification. There is moderate mitral valve thickening. There is no mi tral valve stenosis. There is mild mitral regurgitation. Tricuspid Valve The tricuspid valve is not well visualized, but is grossly normal. There is mild tricuspid regurgitat ion. Right ventricular systolic pressure is elevated at 30-40mmHg. Aortic Valve Moderate to severe valvular aortic stenosis. Pulmonic Valve The pulmonic valve is not well seen, but is grossly normal. There is no pulmonic valvular stenosis. M ild pulmonic valvular regurgitation. Great Vessels The aortic root is normal size. Pericardium/Pleura There is no pericardial effusion. Interpretation Summary Left ventricular systolic function is normal. Ejection Fraction = 55-60%. The transmitral spectral Doppler flow pattern is suggestive of restrictive physiology. The right ventricle is normal in size and function. The left atrium is mildly dilated. There is mild mitral annular calcification. There is moderate mitral valve thickening. There is mild mitral regurgitation. There is mild tricuspid regurgitation. Right ventricular systolic pressure is elevated at 30-40mmHg. Moderate to severe valvular aortic stenosis. MD Anthony Ma 02/28/2018 10:32 AM
[2018-02-28] MEDS ORDERED: predniSONE 10 MG TABLET (UD) PO SCH (14:45)
[2018-02-28] MEDS ORDERED: predniSONE 20 MG TABLET (UD) PO ONE (15:00)
--- NOTE | 2018-02-28 18:41 | PN ---
Teaching Attending Note Name of Resident: Edgard Rivers ATTENDING PHYSICIAN STATEMENT I saw and evaluated the patient. I reviewed the resident's note and discussed the case with the resident. I agree with the resident's findings and plan as documented. SUBJECTIVE: No fever or chills. No abd pain , no CP . SOB is much better did not walk OBJECTIVE: NAD ,comfortable in bed CV: irreg irreg. 3/6 SM at RUSB with radiation to carotids and back. 3/6 SM At apex with radiation to axilla Lungs: no crackles today . good air entry Ext :1+ pitting edema ASSESSMENT AND PLAN: 82 y/o lady with h/o HTN, HLP. Diastolic heart failure, COPD who presented with SOB and was found to have acute CHF exacerbation 1- Acute diastolic CHF exacerbation. better - PO lasix - appreciate card input - echo reviewed. 2- HTN : cont lisinopril and norvasc and labetalol 3- h/o DM. A1c is now 5.5 . 4- R foot edema and bruise 2/2 trauma . - no fracture on xray 5- Normocytic anemia: indicate no iron def . B12 nl . f/u as out pt PT, possible dc tomorrow if cont to be stable on oral diuresis
[2018-02-28] MEDS: ATORVASTATIN CA 20 MG TABLET (FP) PO SCH (22:08)
[2018-02-28] MEDS: ACETAMINOPHEN 325 MG TABLET (FP) PO PRN (22:12)
[2018-03-01] MEDS: FUROSEMIDE 40 MG TABLET (FP) PO SCH ×2 (06:02→13:41)
[2018-03-01 06:57] LABS: HEMATOCRIT 30.6 % (32.4-45.2); HEMOGLOBIN 9.9 GM/dL (10.7-15.3); MCH 27.8 pg (25.7-33.7); MCHC 32.4 g/dl (32.0-36.0); MEAN CELL VOLUME 85.7 fl (80-96); MEAN PLT VOLUME 9.7 fl (7.5-11.1); PLATELET COUNT 161 K/MM3 (134-434); RBC 3.57 M/mm3 (3.60-5.2); RDW 16.3 % (11.6-15.6)
[2018-03-01 07:35] LABS: ANION GAP 6 MMOL/L (8-16); BLOOD UREA NITROGEN 36 mg/dL (7-18); CALCIUM 8.6 mg/dL (8.5-10.1); CHLORIDE 100 mmol/L (98-107); CO2 34 mmol/L (21-32); CREATININE 1.2 mg/dL (0.55-1.3); GLUCOSE,RANDOM 213 mg/dL (74-106); POTASSIUM 4.4 mmol/L (3.5-5.1); SODIUM 140 mmol/L (136-145)
[2018-03-01] MEDS: ALBUTEROL SO4 2.5/IPRATROPIUM 0.5 INH SOL 3 ML VIAL.NEB. NEB SCH ×4 (08:11→20:24)
[2018-03-01] MEDS: LISINOPRIL 20 MG TABLET (FP) PO SCH (09:16)
[2018-03-01] MEDS: APIXABAN 5 MG TABLET PO SCH ×2 (09:16→21:28)
[2018-03-01] MEDS: FLUTICASONE/SALMETEROL 100 MCG/50 MCG DISKUS IH SCH ×2 (09:17→22:04)
[2018-03-01] MEDS: LABETALOL HCL 200 MG TABLET (FP) PO SCH (09:17)
[2018-03-01] MEDS: SERTRALINE HCL 50 MG TABLET (FP) PO SCH (09:17)
[2018-03-01] MEDS: DOCUSATE SODIUM 100 MG CAPSULE (FP) PO SCH (09:17)
[2018-03-01] MEDS: amLODIPine BESYLATE 10 MG TABLET (FP) PO SCH (09:18)
[2018-03-01] MEDS: AMOX TR/POT CLAV 875MG/125MG TABLETS (FP) PO SCH ×2 (09:18→17:06)
[2018-03-01] MEDS ORDERED: predniSONE 20 MG, predniSONE 10 MG PO ONE (10:00)
[2018-03-01] MEDS ORDERED: FUROSEMIDE 40 MG/4 ML INJECTABLE VIAL IVPUSH ONE (10:20)
--- NOTE | 2018-03-01 11:08 | PN ---
Progress Note (short form) - Note Progress Note: Chief Complaint: Events noted, notes reviewed, complaining of persistent dyspnea with wheeze, denies any chest pain, denies any orthponea or PND History of Present Illness: Seen and examined on telemetry. Events noted, notes reviewed, complaining of persistent dyspnea with wheeze, denies any chest pain, denies any orthponea or PND 09/10/2017 Echo: Normal LV size and fxn, LVEF 65%, mild cLVH, abnl LV compliance , mod TRINI, mild MR, TR, mod MG 25 mmHg 02/28/2018 Echo: Normal LV szie and fxn LVEF 55-60%, restrictive physiology, mild LAE, mild MR, TR RVSP 40-50 mmHg, mod-severe CHARI 0.80 cm^2, MG 32 mmHg Current Medications: Current Medications Acetaminophen (Tylenol -) 650 mg PO Q6H PRN PRN Reason: Fever Last Admin: 02/28/18 22:12 Dose: 650 mg Acetaminophen (Tylenol -) 650 mg PO Q6H PRN PRN Reason: PAIN Last Admin: 02/27/18 22:04 Dose: 650 mg Albuterol/Ipratropium (Duoneb -) 1 amp NEB Q4H PRN PRN Reason: ASTHMA Last Admin: 02/27/18 09:47 Dose: 1 amp Albuterol/Ipratropium (Duoneb -) 1 amp NEB RQID [facility] Last Admin: 03/01/18 08:11 Dose: 1 amp Amlodipine Besylate (Norvasc -) 10 mg PO DAILY [facility] Last Admin: 03/01/18 09:18 Dose: 10 mg Amoxicillin/Clavulanate Potassium (Augmentin - 875mg Tablet) 1 tab PO BIDWM [facility] Last Admin: 03/01/18 09:18 Dose: 1 tab Apixaban (Eliquis -) 5 mg PO BID [facility] Last Admin: 03/01/18 09:16 Dose: 5 mg Atorvastatin Calcium (Lipitor -) 20 mg PO HS [facility] Last Admin: 02/28/18 22:08 Dose: 20 mg Docusate Sodium (Colace -) 100 mg PO DAILY [facility] Last Admin: 03/01/18 09:17 Dose: 100 mg Furosemide (Lasix -) 40 mg PO BID@0600,1400 [facility] Last Admin: 03/01/18 06:02 Dose: 40 mg Labetalol HCl (Normodyne -) 400 mg PO BID [facility] Last Admin: 03/01/18 09:17 Dose: 400 mg Lisinopril (Prinivil) 40 mg PO DAILY [facility] Last Admin: 03/01/18 09:16 Dose: 40 mg Fluticasone/Salmeterol (Advair 100mcg/50mcg -) 1 puff IH BID [facility] Last Admin: 03/01/18 09:17 Dose: 1 puff Senna (Senna -) 1 tab PO HS PRN PRN Reason: CONSTIPATION Sertraline HCl (Zoloft -) 50 mg PO DAILY [facility] Last Admin: 03/01/18 09:17 Dose: 50 mg Review of Systems Cardiovascular: As noted above Respiratory: reports: Cough but no Sputum Production Gastrointestinal: denies: Nausea, Vomiting, Diarrhea, Constipation or Abdominal Discomfort Musculoskeletal: No Symptoms Reported Endocrine: No Symptoms Reported - Objective Vital Signs: Last Vital Signs Temp Pulse Resp BP Pulse Ox 97.9 F 80 18 149/63 94 L 03/01/18 09:50 03/01/18 09:50 03/01/18 09:50 03/01/18 09:50 02/28/18 21:00 Intake & Output 02/26/18 02/27/18 02/28/18 03/01/18 23:59 23:59 23:59 23:59 Intake Total 250 1160 470 270 Output Total 750 2800 1900 400 Balance -500 -1640 -1430 -130 Weight 182 lb 183 lb 6 oz 176 lb 2 oz Constitutional: No Distress Neck: Supple Negative JVD No Bruit Respiratory: Diminished Breath Sounds at the Bases Bilateral Expiratory Rhonchi Cardiovascular: S1 S2 Irregularly Irregular Grade 2-3/6 [id number] Gastrointestinal: Soft Benign Normal Bowel Sounds Ext: Trace Edema Labs: CBC, BMP 03/01/18 06:00 03/01/18 06:00 Hepatic Panel Total Bilirubin 0.5 mg/dL (0.2-1) 02/26/18 06:00 AST 13 U/L (15-37) L 02/26/18 06:00 ALT 12 U/L (13-61) L 02/26/18 06:00 Alkaline Phosphatase 58 U/L (45-117) 02/26/18 06:00 Albumin 3.5 g/dl (3.4-5.0) 02/26/18 06:00 Assessment/Plan ASSESSMENT: 1. Acute on chronic diastolic LV dysfunction with class I-II NYHA classification LV failure, persistent 2. Chronic obstructive airway disease exacerbation, persistent wheeze, could be exacerbated by B-Suhas therapy 3. CAD non-obstructive CAD history of demand ischemic injury angina pectoris 4. Persistent atrial fibrillation with [id number] score of 7 on chronic A/C with DOAC's/Eliquis 5. Mitral valve regurgitation 6. Aortic valve stenosis moderate to severe in severity 7. Tricuspid valve regurgitation 8. Pulmonary HTN 9. HTN 10. Diabetes mellitus 11. Hypercholesterolemia 12. Acute on CKD 13. Anemia PLAN: 1. Discontinue Labetalol and initiate Bystolic therapy 2. Continue Amlodipine 3. Continue Prinivil with caution and close monitoring of renal function 4. Continue Lipitor 5. Continue Lasix and additional IV Lasix today, and attempt Aldactone with caution 6. Continue Eliquis with close monitoring of CBC, maintaining Hg equal or > 8.0 7. Bronchodilators, Steroids and antibiotics as per the primary team 8. May consider proceeding with R&LHC for further evaluation of severity (as outpatient) and possible intervention Maliha Blake.
--- NOTE | 2018-03-01 11:43 | PN ---
Physical Exam: SUBJECTIVE: Patient seen and examined at bedside complains of worsening shortness of breath today States she is having worsening dyspnea on exertion and is getting winded about a couple of steps. OBJECTIVE: Vital Signs Period Temp Pulse Resp BP Sys/Mo Pulse Ox Last 24 Hr 97.8 F-98.4 F 57-80 18-18 125-163/48-69 94 GENERAL: The patient is awake, alert, and fully oriented HEAD: EYES:extraocular movements intact ENT: moist mucous membranes. NECK: Supple no JVD LUNGS: Bilateral rhonchi with scattered wheezing HEART: Irregular 3/6 systolic murmur ABDOMEN: Soft, nontender, nondistended EXTREMITIES: 1+ LE edema SKIN: Warm, dry Laboratory Results - last 24 hr 03/01/18 03/01/18 06:00 06:00 WBC 4.0 RBC 3.57 L Hgb 9.9 L Hct 30.6 L MCV 85.7 MCH 27.8 MCHC 32.4 RDW 16.3 H Plt Count 161 MPV 9.7 Sodium 140 Potassium 4.4 Chloride 100 Carbon Dioxide 34 H Anion Gap 6 L BUN 36 H Creatinine 1.2 Creat Clearance w eGFR 42.90 Random Glucose 213 H Calcium 8.6 Active Medications Generic Name Dose Route Start Last Admin Trade Name Freq PRN Reason Stop Dose Admin Acetaminophen 650 mg 02/27/18 12:03 02/28/18 22:12 Tylenol - PO 650 mg Q6H PRN Administration Fever Acetaminophen 650 mg 02/27/18 14:28 02/27/18 22:04 Tylenol - PO 650 mg Q6H PRN Administration PAIN Albuterol/Ipratropium 1 amp 02/27/18 06:27 02/27/18 09:47 Duoneb - NEB 1 amp Q4H PRN Administration ASTHMA Albuterol/Ipratropium 1 amp 02/27/18 12:00 03/01/18 08:11 Duoneb - NEB 1 amp RQID PK Administration Amlodipine Besylate 10 mg 02/26/18 10:30 03/01/18 09:18 Norvasc - PO 10 mg DAILY PK Administration Amoxicillin/Clavulanate Potassium 1 tab 02/27/18 17:30 03/01/18 09:18 Augmentin - 875mg Tablet PO 1 tab BIDWM PK Administration Apixaban 5 mg 02/26/18 10:00 03/01/18 09:16 Eliquis - PO 5 mg BID PK Administration Atorvastatin Calcium 20 mg 02/27/18 22:00 02/28/18 22:08 Lipitor - PO 20 mg HS PK Administration Docusate Sodium 100 mg 02/27/18 18:00 03/01/18 09:17 Colace - PO 100 mg DAILY PK Administration Furosemide 40 mg 03/01/18 06:00 03/01/18 06:02 Lasix - PO 40 mg BID@0600,1400 PK Administration Lisinopril 40 mg 02/26/18 10:30 03/01/18 09:16 Prinivil PO 40 mg DAILY PK Administration Nebivolol 5 mg 03/01/18 22:00 Bystolic - PO BID PK Fluticasone/Salmeterol 1 puff 02/27/18 11:45 03/01/18 09:17 Advair 100mcg/50mcg - IH 1 puff BID PK Administration Senna 1 tab 02/27/18 22:00 Senna - PO HS PRN CONSTIPATION Sertraline HCl 50 mg 02/26/18 10:45 03/01/18 09:17 Zoloft - PO 50 mg DAILY PK Administration Spironolactone 25 mg 03/01/18 11:45 Aldactone - PO DAILY PK ASSESSMENT/PLAN: 82F with multiple medical problems including COPD and CHF who presents to the hospital with shortness of breath. Shortness of breath/Acute respiratory failure likely due to a combination of CHF exacerbation and COPD Patient was initally clinically improving but worsened today. Spoke to Dr Stephen and patient although improved is still above her dry weight by about 10 pounds. Resp Failure is likely mostly cardiac Spoke with Dr. Martinez from cardiology: Will give one dose of IV lasix now and continue PO and reassess tomorrow. Will reassess patient later today and if needs lasix IV will give it CHanged from Labetelol to bystolic for more cardio-selectivity Likely has aortic stenosis and may require cath and valve replacement in future- something to consider Started on aldactone off steroids for COPD continue bronchodilators and O2 PRN Afib Eliquis 5mg PO BID rate controlled Bystolic HTN Norvasc Lisinopril Bystolic HLD Lipitor 20mg Anxiety, depression Sertaline 50mg daily FEN No IVF No electrolyte issues Sodium restricted diet PPx: Eliquis PT consult Visit type - Emergency Visit Emergency Visit: Yes ED Registration Date: 02/25/18 Care time: The patient presented to the Emergency Department on the above date and was hospitalized for further evaluation of their emergent condition. - New Patient This patient is new to me today: Yes Date on this admission: 03/01/18 - Critical Care Critical Care patient: No - Discharge Referral Referred to [facility] Yes Physician Referral: Arvind Pompa MD ([facility])
--- NOTE | 2018-03-01 11:45 | CON.PULM ---
Consult Consult Specialty:: PULMONARY Referred by:: HOSPITALIST Reason for Consultation:: SOB - History of Present Illness Chief Complaint: SOB/WHEEZE/COUGH History of Present Illness: 82yo F with PMH of diastolic HF, COPD, asthma, HTN, HLD, DM presenting with worsening shortness of breath. Patient was last seen in this ED 09/23/17 and was admitted for sepsis with pneumonia. For the last 3 months, patient has required oxygen at home, 2.5 L. SOB has worsened over the past 2-3 days despite breathing treatments. Patient reports dyspnea on exertion, feeling winded after two steps. Patient also reports leg swelling bilaterally. She endorses chest tightness 3-4 days ago that went away on its own. Reports chills, but no fever. No abdominal pain, nausea, or vomiting. Patient is well known by our service and is followed by Dr. Stewart for cardiology. 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 Cardio/Vascular: Yes: AFIB, Aortic Stenosis, CAD, CHF, HTN, Hyperlipdemia, Mitral Insufficiency, Murmur, Pulmonary Hypertension Pulmonary: Yes: Asthma, COPD, O2 Dependent, Pneumonia Gastrointestinal: No: Ascites Hepatobiliary: No: Cirrhosis Renal/: No: Renal Failure Reproductive: Yes: Postmenopausal ...: No Heme/Onc: Yes: Anemia Psych: No: Addictions Musculoskeletal: Yes: Osteoarthritis (had hip and knee replacement, still with some healing problems ), Other Endocrine: Yes: Diabetes Mellitus - Past Surgical History Past Surgical History: Yes: Joint Replacement - Alcohol/Substance Use Hx Alcohol Use: No History of Substance Use: reports: None - Smoking History Smoking history: Former smoker Have you smoked in the past 12 months: No Aproximately how many cigarettes per day: 0 If you are a former smoker, when did you quit?: many years ago - Social History Usual Living Arrangement: Alone ADL: Support Services Place of : Other History of Recent Travel: No Home Medications - Allergies Allergies/Adverse Reactions: Allergies Allergy/AdvReac Type Severity Reaction Status Date / Time ciprofloxacin [From Cipro] Allergy Verified 09/06/17 11:28 ciprofloxacin HCl Allergy Verified 09/06/17 11:28 [From Cipro] - Home Medications Home Medications: Ambulatory Orders Ferrous Sulfate 325 mg PO BID 12/29/16 Lisinopril [Zestril] 40 mg PO DAILY 12/29/16 Simvastatin 40 mg PO DAILY 12/29/16 Repaglinide [Prandin -] 1 mg PO TID 06/15/17 Albuterol 2.5/Ipratropium 0.5 [Duoneb -] 1 amp NEB Q6H PRN amp 06/19/17 Omeprazole Magnesium [Prilosec Otc] 40 mg PO DAILY 09/06/17 Sertraline HCl [Zoloft -] 50 mg PO DAILY 09/09/17 Amlodipine Besylate [Norvasc -] 10 mg PO DAILY #30 tablet 09/12/17 Furosemide [Lasix -] 40 mg PO BID@0600,1400 tablet 09/12/17 Apixaban [Eliquis -] 5 mg PO BID #0 tablet 09/27/17 Labetalol HCl [Normodyne -] 200 mg PO BID tablet 09/27/17 Repaglinide 1 mg PO AC 02/25/18 Acetaminophen 500 mg PO TID PRN 02/27/18 Albuterol Sulfate [Proair Respiclick] 90 mcg IH Q4H PRN 02/27/18 Amox-Clav 875-125 mg Tablet 1 tab PO BID 02/27/18 Amoxicillin/Potassium Clav [Amox-Clav 875-125 mg Tablet] 1 each PO BID 02/27/18 Hydralazine HCl 25 mg PO BID 02/27/18 Hydralazine HCl 25 mg PO BID 02/27/18 Family Disease History - Family Disease History Family Disease History: Other: Daughter (alive and well) Review of Systems - Review of Systems Constitutional: denies: Fever, Weakness Eyes: denies: Blind Spots HENT: denies: Difficult Swallowing Neck: denies: Decreased ROM Cardiovascular: reports: Edema, Shortness of Breath. denies: Chest Pain Respiratory: reports: Cough, Exercise Intolerance, Orthopnea, SOB, SOB on Exertion, Wheezing. denies: Hemoptysis Gastrointestinal: denies: Abdominal Pain Genitourinary: denies: Burning Breasts: reports: No Symptoms Reported Musculoskeletal: reports: Back Pain Integumentary: reports: No Symptoms Neurological: reports: No Symptoms Endocrine: reports: No Symptoms Physical Exam Vital Sings: Vital Signs Temperature 97.9 F 03/01/18 09:50 Pulse Rate 80 03/01/18 09:50 Respiratory Rate 18 03/01/18 09:50 Blood Pressure 149/63 03/01/18 09:50 O2 Sat by Pulse Oximetry (%) 94 L 02/28/18 21:00 Constitutional: Yes: Anxious Eyes: Yes: EOM Intact HENT: Yes: Normocephalic Neck: Yes: Trachea Midline Cardiovascular: Yes: Pulse Irregular, S1, S2 Respiratory: Yes: Diminished, Rales Gastrointestinal: Yes: Soft, Abdomen, Obese Edema: LLE: 1+, RLE: 1+ Integumentary: Yes: WNL Neurological: Yes: Alert Psychiatric: Yes: Alert Labs: CBC, BMP 03/01/18 06:00 03/01/18 06:00 rest reviewed Imaging - Results Chest X-ray: Report Reviewed, Image Reviewed Problem List - Problems (1) CHF exacerbation Code(s): I50.9 - HEART FAILURE, UNSPECIFIED (2) Acute on chronic diastolic (congestive) heart failure Code(s): I50.33 - ACUTE ON CHRONIC DIASTOLIC (CONGESTIVE) HEART FAILURE (3) Anemia Code(s): D64.9 - ANEMIA, UNSPECIFIED Qualifiers: Anemia type: unspecified type Qualified Code(s): D64.9 - Anemia, unspecified (4) Chronic kidney disease (CKD) Code(s): N18.9 - CHRONIC KIDNEY DISEASE, UNSPECIFIED Qualifiers: Chronic kidney disease stage: stage 2 (mild) Qualified Code(s): N18.2 - Chronic kidney disease, stage 2 (mild) (5) DVT prophylaxis Code(s): CMP2927 - (6) Dyspnea Code(s): R06.00 - DYSPNEA, UNSPECIFIED Qualifiers: Dyspnea type: dyspnea on exertion Qualified Code(s): R06.09 - Other forms of dyspnea (7) HTN (hypertension) Code(s): I10 - ESSENTIAL (PRIMARY) HYPERTENSION Qualifiers: Hypertension type: essential hypertension Qualified Code(s): I10 - Essential (primary) hypertension (8) Atrial fibrillation Code(s): I48.91 - UNSPECIFIED ATRIAL FIBRILLATION Qualifiers: Atrial fibrillation type: persistent Qualified Code(s): I48.1 - Persistent atrial fibrillation (9) COPD (chronic obstructive pulmonary disease) Code(s): J44.9 - CHRONIC OBSTRUCTIVE PULMONARY DISEASE, UNSPECIFIED Qualifiers: COPD type: unspecified COPD Qualified Code(s): J44.9 - Chronic obstructive pulmonary disease, unspecified (10) Diabetes mellitus Code(s): E11.9 - TYPE 2 DIABETES MELLITUS WITHOUT COMPLICATIONS Qualifiers: Diabetes mellitus type: type 2 Diabetes mellitus terminal system operator insulin use: without terminal system operator use Diabetes mellitus complication status: without complication Qualified Code(s): E11.9 - Type 2 diabetes mellitus without complications (11) Mitral valve regurgitation Code(s): I34.0 - NONRHEUMATIC MITRAL (VALVE) INSUFFICIENCY Qualifiers: Cardiac valve disease etiology: nonrheumatic Qualified Code(s): I34.0 - Nonrheumatic mitral (valve) insufficiency Assessment/Plan WOULD CONCENTRATE ON TREATING VOLUME OVERLOAD LAST DISCHARGE WEIGHT ON WAS 164LBS THIS ADMISSION WEIGHT WAS 185LBS NOW IT'S 176LBS AGREE WITH DIURETICS/BRONCHODILATORS AND O2 SUPPLEMENTATION WOULD TAPER STEROIDS Prerna AYERS MD
[2018-03-01] MEDS: SPIRONOLACTONE 25 MG TABLET (FP) PO SCH (11:51)
--- NOTE | 2018-03-01 13:46 | PN ---
Teaching Attending Note Name of Resident: Veto Hartley ATTENDING PHYSICIAN STATEMENT I saw and evaluated the patient. I reviewed the resident's note and discussed the case with the resident. I agree with the resident's findings and plan as documented. SUBJECTIVE:seen at 8 am , while getting a breathing treatment No fever or chills . she felt better today . no cough . legs felt better OBJECTIVE: AD ,comfortable in bed CV: irreg irreg. 3/6 SM at RUSB with radiation to carotids and back. 3/6 SM At apex with radiation to axilla Lungs: good air entry, minimal bibasilar crackles . scattered wheezes Ext :1+ pitting edema ASSESSMENT AND PLAN: 82 y/o lady with h/o HTN, HLP. Diastolic heart failure, COPD who presented with SOB and was found to have acute CHF exacerbation 1- Acute diastolic CHF exacerbation. - PO lasix , with additional IV dose today - appreciate card input . bystolic instead of labetalol - monitor weight and I&O 2- HTN : cont lisinopril and norvasc and bystolic now 3- h/o DM. A1c is now 5.5 . 4- R foot edema and bruise 2/2 trauma. - no fracture on xray 5- Normocytic anemia: f/u as out pt. HLOC
[2018-03-01] MEDS ORDERED: PT OWN MED DRAWER 7, Y5N ONE (21:25)
[2018-03-01] MEDS: ATORVASTATIN CA 20 MG TABLET (FP) PO SCH (21:28)
[2018-03-01] MEDS: NEBIVOLOL 5 MG TABLET (FP) PO SCH (21:28)
[2018-03-01] MEDS: ACETAMINOPHEN 325 MG TABLET (FP) PO PRN (23:33)
[2018-03-02] MEDS: FUROSEMIDE 40 MG TABLET (FP) PO SCH (05:48)
[2018-03-02] MEDS: ALBUTEROL SO4 2.5/IPRATROPIUM 0.5 INH SOL 3 ML VIAL.NEB. NEB PRN (06:30)
[2018-03-02 07:19] LABS: BASO % 0.8 % (0-2.0); EOS % 3.2 % (0-4.5); HEMATOCRIT 29.6 % (32.4-45.2); HEMOGLOBIN 9.6 GM/dL (10.7-15.3); LYMPH % 12.6 % (8-40); MCH 27.9 pg (25.7-33.7); MCHC 32.3 g/dl (32.0-36.0); MEAN CELL VOLUME 86.4 fl (80-96); MEAN PLT VOLUME 9.4 fl (7.5-11.1); MONO % 10.8 % (3.8-10.2); NEUT % 72.6 % (42.8-82.8); PLATELET COUNT 166 K/MM3 (134-434); RBC 3.43 M/mm3 (3.60-5.2); RDW 16.3 % (11.6-15.6); WHITE BLOOD COUNT 7.6 K/mm3 (4.0-10.0)
[2018-03-02] MEDS: ALBUTEROL SO4 2.5/IPRATROPIUM 0.5 INH SOL 3 ML VIAL.NEB. NEB SCH ×4 (07:22→20:30)
[2018-03-02 07:47] LABS: ANION GAP 4 MMOL/L (8-16); BLOOD UREA NITROGEN 34 mg/dL (7-18); CALCIUM 8.5 mg/dL (8.5-10.1); CHLORIDE 101 mmol/L (98-107); CO2 36 mmol/L (21-32); CREATININE 1.1 mg/dL (0.55-1.3); GLUCOSE,RANDOM 151 mg/dL (74-106); MAGNESIUM 2.2 mg/dL (1.8-2.4); POTASSIUM 4.2 mmol/L (3.5-5.1); SODIUM 141 mmol/L (136-145)
[2018-03-02] MEDS: AMOX TR/POT CLAV 875MG/125MG TABLETS (FP) PO SCH (08:20)
--- NOTE | 2018-03-02 09:06 | PN ---
Progress Note (short form) - Note Progress Note: Chief Complaint: Events noted, notes reviewed, complaining of persistent dyspnea with wheeze although some improvement, denies any chest pain, denies any orthponea or PND History of Present Illness: Seen and examined on telemetry. Events noted, notes reviewed, complaining of persistent dyspnea with wheeze although some improvement, denies any chest pain , denies any orthponea or PND As outlined in the prior note would recommend additional evaluation for AV stenosis since it could be contributing to some extent to her clinical presentation, can be done as outpatient once her respiratory status improves/ resolves 09/10/2017 Echo: Normal LV size and fxn, LVEF 65%, mild cLVH, abnl LV compliance , mod TRINI, mild MR, TR, mod MG 25 mmHg 02/28/2018 Echo: Normal LV szie and fxn LVEF 55-60%, restrictive physiology, mild LAE, mild MR, TR RVSP 40-50 mmHg, mod-severe CHARI 0.80 cm^2, MG 32 mmHg Current Medications: Current Medications Acetaminophen (Tylenol -) 650 mg PO Q6H PRN PRN Reason: Fever Last Admin: 03/01/18 23:33 Dose: 650 mg Acetaminophen (Tylenol -) 650 mg PO Q6H PRN PRN Reason: PAIN Last Admin: 02/27/18 22:04 Dose: 650 mg Albuterol/Ipratropium (Duoneb -) 1 amp NEB Q4H PRN PRN Reason: ASTHMA Last Admin: 03/02/18 06:30 Dose: 1 amp Albuterol/Ipratropium (Duoneb -) [address] [facility] Last Admin: 03/01/18 20:24 Dose: 1 amp Amlodipine Besylate (Norvasc -) [address] [facility] Last Admin: 03/01/18 09:18 Dose: 10 mg Amoxicillin/Clavulanate Potassium (Augmentin - 875mg Tablet) [address] [facility] Last Admin: 03/02/18 08:20 Dose: 1 tab Apixaban (Eliquis -) [address] [facility] Last Admin: 03/01/18 21:28 Dose: 5 mg Atorvastatin Calcium (Lipitor -) [address] [facility] Last Admin: 03/01/18 21:28 Dose: 20 mg Docusate Sodium (Colace -) [address] [facility] Last Admin: 03/01/18 09:17 Dose: 100 mg Furosemide (Lasix -) 40 mg PO BID@0600,1400 [facility] Last Admin: 03/02/18 05:48 Dose: 40 mg Lisinopril (Prinivil) [address] [facility] Last Admin: 03/01/18 09:16 Dose: 40 mg Nebivolol (Bystolic -) [address] [facility] Last Admin: 03/01/18 21:28 Dose: 5 mg Fluticasone/Salmeterol (Advair 100mcg/50mcg -) [address] [facility] Last Admin: 03/01/18 22:04 Dose: 1 puff Senna (Senna -) 1 tab PO HS PRN PRN Reason: CONSTIPATION Sertraline HCl (Zoloft -) [address] [facility] Last Admin: 03/01/18 09:17 Dose: 50 mg Spironolactone (Aldactone -) [address] [facility] Last Admin: 03/01/18 11:51 Dose: 25 mg Review of Systems Cardiovascular: As noted above Respiratory: reports: Cough but no Sputum Production Gastrointestinal: denies: Nausea, Vomiting, Diarrhea, Constipation or Abdominal Discomfort Musculoskeletal: No Symptoms Reported Endocrine: No Symptoms Reported - Objective Vital Signs: Last Vital Signs Temp Pulse Resp BP Pulse Ox 98 F 68 18 155/85 92 L 03/02/18 06:26 03/02/18 06:26 03/02/18 06:26 03/02/18 06:26 03/01/18 20:48 Intake & Output 02/27/18 02/28/18 03/01/18 03/02/18 23:59 23:59 23:59 23:59 Intake Total 6695 057 1924 Output Total 2800 1900 825 Balance -1640 -1430 355 Weight 183 lb 6 oz 176 lb 2 oz 179 lb 2 oz Constitutional: No Distress Neck: Supple Negative JVD No Bruit Respiratory: Diminished Breath Sounds at the Bases Bilateral Expiratory Rhonchi Cardiovascular: S1 S2 Irregularly Irregular Grade 2-3/6 JAZMYN Gastrointestinal: Soft Benign Normal Bowel Sounds Ext: Trace Edema Labs: CBC, BMP 03/02/18 06:00 03/02/18 06:00 Hepatic Panel Total Bilirubin 0.5 mg/dL (0.2-1) 02/26/18 06:00 AST 13 U/L (15-37) L 02/26/18 06:00 ALT 12 U/L (13-61) L 02/26/18 06:00 Alkaline Phosphatase 58 U/L (45-117) 02/26/18 06:00 Albumin 3.5 g/dl (3.4-5.0) 02/26/18 06:00 Assessment/Plan ASSESSMENT: 1. Acute on chronic diastolic LV dysfunction with class I-II NYHA classification LV failure, persistent 2. Chronic obstructive airway disease exacerbation, persistent wheeze (B- Suhas therapy modified) 3. CAD non-obstructive CAD history of demand ischemic injury angina pectoris 4. Persistent atrial fibrillation with [id number] score of 7 on chronic A/C with DOAC's/Eliquis 5. Mitral valve regurgitation 6. Aortic valve stenosis moderate to severe in severity 7. Tricuspid valve regurgitation 8. Pulmonary HTN 9. HTN 10. Diabetes mellitus 11. Hypercholesterolemia 12. Acute on CKD 13. Anemia PLAN: 1. Continue Bystolic with caution 2. Continue Amlodipine 3. Continue Prinivil with caution and close monitoring of renal function 4. Continue Lipitor 5. Continue Lasix but IV, and continue Aldactone with caution close monitoring of renal function 6. Continue Eliquis with close monitoring of CBC, maintaining Hg equal or > 8.0 7. Bronchodilators, Steroids and antibiotics as per the primary team 8. As outlined above and yesterday's note to consider proceeding with R&LHC for further evaluation of severity (as outpatient) and possible intervention, TAVR if appropriate Maliha Blake.
[2018-03-02] MEDS ORDERED: predniSONE 20 MG TABLET (UD) PO ONE ×2 (10:00→11:31)
[2018-03-02] MEDS ORDERED: PT OWN MED DRAWER 7, Y5N ONE (10:19)
[2018-03-02] MEDS: FLUTICASONE/SALMETEROL 100 MCG/50 MCG DISKUS IH SCH ×2 (10:21→21:10)
[2018-03-02] MEDS: APIXABAN 5 MG TABLET PO SCH ×2 (10:21→21:11)
[2018-03-02] MEDS: amLODIPine BESYLATE 10 MG TABLET (FP) PO SCH (10:21)
[2018-03-02] MEDS: LISINOPRIL 20 MG TABLET (FP) PO SCH (10:22)
[2018-03-02] MEDS: SERTRALINE HCL 50 MG TABLET (FP) PO SCH (10:22)
[2018-03-02] MEDS: SPIRONOLACTONE 25 MG TABLET (FP) PO SCH (10:22)
[2018-03-02] MEDS: DOCUSATE SODIUM 100 MG CAPSULE (FP) PO SCH (10:23)
[2018-03-02] MEDS: NEBIVOLOL 5 MG TABLET (FP) PO SCH ×2 (10:36→22:01)
--- NOTE | 2018-03-02 11:35 | PN ---
Progress Note (short form) - Note Progress Note: Subjective: OSB , no CP . Objective: Vital Signs: Last Vital Signs Temp Pulse Resp BP Pulse Ox 98 F 68 18 155/85 92 L 03/02/18 06:26 03/02/18 06:26 03/02/18 06:26 03/02/18 06:26 03/01/18 20:48 Laboratory Results - last 24 hr 03/02/18 03/02/18 06:00 06:00 WBC 7.6 RBC 3.43 L Hgb 9.6 L Hct 29.6 L MCV 86.4 MCH 27.9 MCHC 32.3 RDW 16.3 H Plt Count 166 MPV 9.4 Absolute Neuts (auto) 5.5 Neutrophils % 72.6 Lymphocytes % 12.6 D Monocytes % 10.8 H Eosinophils % 3.2 D Basophils % 0.8 Nucleated RBC % 0 Sodium 141 Potassium 4.2 Chloride 101 Carbon Dioxide 36 H Anion Gap 4 L BUN 34 H Creatinine 1.1 Creat Clearance w eGFR 47.43 Random Glucose 151 H Calcium 8.5 Phosphorus 4.0 Magnesium 2.2 Physical Exam: NAD ,comfortable in bed CV: irreg irreg. 3/6 SM at RUSB with radiation to carotids and back. 3/6 SM At apex with radiation to axilla Lungs: decreased air entry today, minimal bibasilar crackles scattered wheezes Ext :1+ pitting edema ASSESSMENT AND PLAN: 82 y/o lady with h/o HTN, HLP. Diastolic heart failure, COPD who presented with SOB and was found to have acute CHF exacerbation 1- Acute diastolic CHF exacerbation. - exam is worse today. - change to IV lasix 40 BID - place romo back for accurate I&O - cont cardiac meds - add po prednisone , as poor air entry and possible component of COPD exacerbation 2- HTN : cont lisinopril and norvasc and bystolic 3- h/o DM. A1c is now 5.5 . 4- Normocytic anemia: f/u as out pt. HLOC Visit type - Emergency Visit Emergency Visit: Yes ED Registration Date: 02/25/18 Care time: The patient presented to the Emergency Department on the above date and was hospitalized for further evaluation of their emergent condition. - New Patient This patient is new to me today: No - Critical Care Critical Care patient: No
--- NOTE | 2018-03-02 12:00 | PN ---
Progress Note (short form) - Note Progress Note: PULMONARY COMPLAINING OF MORE SOB TODAY VSS/AFEBRILE PALE/ANICTERIC DIFFUSE CRACKLES B/L WITH END EXP WHEEZE S1S2 IRREG W SYSTOLIC M DIFFUSE PRECORDIUM BS+ NON TENDER MILD B/L LOWER EXT EDEMA LABS/RADIOGRAPH/MEDS/NOTES REVIEWED (1) CHF exacerbation Code(s): I50.9 - HEART FAILURE, UNSPECIFIED (2) Acute on chronic diastolic (congestive) heart failure Code(s): I50.33 - ACUTE ON CHRONIC DIASTOLIC (CONGESTIVE) HEART FAILURE (3) Anemia Code(s): D64.9 - ANEMIA, UNSPECIFIED Qualifiers: Anemia type: unspecified type Qualified Code(s): D64.9 - Anemia, unspecified (4) Chronic kidney disease (CKD) Code(s): N18.9 - CHRONIC KIDNEY DISEASE, UNSPECIFIED Qualifiers: Chronic kidney disease stage: stage 2 (mild) Qualified Code(s): N18.2 - Chronic kidney disease, stage 2 (mild) (5) DVT prophylaxis Code(s): [id number] - (6) Dyspnea Code(s): R06.00 - DYSPNEA, UNSPECIFIED Qualifiers: Dyspnea type: dyspnea on exertion Qualified Code(s): R06.09 - Other forms of dyspnea (7) HTN (hypertension) Code(s): I10 - ESSENTIAL (PRIMARY) HYPERTENSION Qualifiers: Hypertension type: essential hypertension Qualified Code(s): I10 - Essential (primary) hypertension (8) Atrial fibrillation Code(s): I48.91 - UNSPECIFIED ATRIAL FIBRILLATION Qualifiers: Atrial fibrillation type: persistent Qualified Code(s): I48.1 - Persistent atrial fibrillation (9) COPD (chronic obstructive pulmonary disease) Code(s): J44.9 - CHRONIC OBSTRUCTIVE PULMONARY DISEASE, UNSPECIFIED Qualifiers: COPD type: unspecified COPD Qualified Code(s): J44.9 - Chronic obstructive pulmonary disease, unspecified (10) Diabetes mellitus Code(s): E11.9 - TYPE 2 DIABETES MELLITUS WITHOUT COMPLICATIONS Qualifiers: Diabetes mellitus type: type 2 Diabetes mellitus superintendent terminal insulin use: without chcf use Diabetes mellitus complication status: without complication Qualified Code(s): E11.9 - Type 2 diabetes mellitus without complications (11) Mitral valve regurgitation Code(s): I34.0 - NONRHEUMATIC MITRAL (VALVE) INSUFFICIENCY Qualifiers: Cardiac valve disease etiology: nonrheumatic Qualified Code(s): I34.0 - Nonrheumatic mitral (valve) insufficiency Assessment/Plan THIS ADMISSION WEIGHT WAS 185LBS NOW IT'S 179LBS AGREE WITH DIURETICS/BRONCHODILATORS AND O2 SUPPLEMENTATION WOULD TAPER STEROIDS/?NEED FOR ABS DISCUSSED WITH PMD Prerna AYERS MD Problem List - Problems (1) CHF exacerbation Code(s): I50.9 - HEART FAILURE, UNSPECIFIED (2) Acute on chronic diastolic (congestive) heart failure Code(s): I50.33 - ACUTE ON CHRONIC DIASTOLIC (CONGESTIVE) HEART FAILURE (3) Anemia Code(s): D64.9 - ANEMIA, UNSPECIFIED Qualifiers: Qualified Code(s): D64.9 - Anemia, unspecified (4) Chronic kidney disease (CKD) Code(s): N18.9 - CHRONIC KIDNEY DISEASE, UNSPECIFIED Qualifiers: Qualified Code(s): N18.2 - Chronic kidney disease, stage 2 (mild) (5) DVT prophylaxis Code(s): [id number] - (6) Dyspnea Code(s): R06.00 - DYSPNEA, UNSPECIFIED Qualifiers: Qualified Code(s): R06.09 - Other forms of dyspnea (7) HTN (hypertension) Code(s): I10 - ESSENTIAL (PRIMARY) HYPERTENSION Qualifiers: Qualified Code(s): I10 - Essential (primary) hypertension (8) Atrial fibrillation Code(s): I48.91 - UNSPECIFIED ATRIAL FIBRILLATION Qualifiers: Qualified Code(s): I48.1 - Persistent atrial fibrillation (9) COPD (chronic obstructive pulmonary disease) Code(s): J44.9 - CHRONIC OBSTRUCTIVE PULMONARY DISEASE, UNSPECIFIED Qualifiers: Qualified Code(s): J44.9 - Chronic obstructive pulmonary disease, unspecified (10) Diabetes mellitus Code(s): E11.9 - TYPE 2 DIABETES MELLITUS WITHOUT COMPLICATIONS Qualifiers: Qualified Code(s): E11.9 - Type 2 diabetes mellitus without complications (11) Mitral valve regurgitation Code(s): I34.0 - NONRHEUMATIC MITRAL (VALVE) INSUFFICIENCY Qualifiers: Qualified Code(s): I34.0 - Nonrheumatic mitral (valve) insufficiency
[2018-03-02] MEDS: FUROSEMIDE 40 MG/4 ML INJECTABLE VIAL IVPUSH SCH (13:04)
[2018-03-02] MEDS: ATORVASTATIN CA 20 MG TABLET (FP) PO SCH (21:11)
[2018-03-03] MEDS: FUROSEMIDE 40 MG/4 ML INJECTABLE VIAL IVPUSH SCH ×2 (06:07→13:35)
[2018-03-03] MEDS ORDERED: PT OWN MED DRAWER 7, Y5N ONE ×4 (07:06→21:58)
[2018-03-03] MEDS: ALBUTEROL SO4 2.5/IPRATROPIUM 0.5 INH SOL 3 ML VIAL.NEB. NEB SCH ×4 (07:27→19:31)
[2018-03-03 08:05] LABS: ANION GAP 4 MMOL/L (8-16); BLOOD UREA NITROGEN 33 mg/dL (7-18); CALCIUM 8.7 mg/dL (8.5-10.1); CHLORIDE 98 mmol/L (98-107); CO2 37 mmol/L (21-32); GLUCOSE,RANDOM 214 mg/dL (74-106); MAGNESIUM 2.5 mg/dL (1.8-2.4); PHOSPHOROUS 4.2 mg/dL (2.5-4.9); POTASSIUM 4.4 mmol/L (3.5-5.1); SODIUM 140 mmol/L (136-145)
--- NOTE | 2018-03-03 09:14 | PN ---
Physical Exam: SUBJECTIVE: Patient seen and examined at bedside this morning. Endorses productive cough, shortness of breath and wheezing that is improved with nebulizer treatments. Denies fevers, chills, shortness of breath, chest pain, palpitations, abdominal pain, nausea, vomiting, diarrhea. Today complains of new pain in proximal left leg that occurred yesterday when she tried to stretch. OBJECTIVE: Vital Signs Period Temp Pulse Resp BP Sys/Mo Pulse Ox Last 24 Hr 97.9 F-98.7 F 61-81 18-20 152-170/59-93 91-95 GENERAL: The patient is awake, alert, and fully oriented, in no acute distress. HEAD: Normal with no signs of trauma. EYES: PERRL, extraocular movements intact, sclera anicteric, conjunctiva clear. ENT: Oropharynx mildly erythematous, without exudates, moist mucous membranes. NECK: Trachea midline, full range of motion, supple without lymphadenopathy LUNGS: Poor inspiratory effort and air entery b/l. Faint wheezes, and crackles at lung lower lobes b/l. No accessory muscle use noted. Cough exacerbated and reproduced with deep breathing upon exam. HEART: Irregular rate and rhythm, S1, S2. Holosystolic 3/6 murmur with radiation to b/l carotids appreciated. ABDOMEN: Soft, nontender, nondistended, normoactive bowel sounds, no guarding, no rebound, no hepatosplenomegaly. EXTREMITIES: 2+ radial and dorsalis pedis pulses b/l. Warm. Right leg 1+ pitting edema, painful, erythematous compared to left. Right foot with bruise at base of first toe, tender to palpation at dorsum and ventral aspect of foot. Left anterior proximal thigh GENITAL: Crandall catheter without erythema at insertion site. NEUROLOGICAL: Cranial nerves II through XII grossly intact. strength 3/5 b/l upper extremities limited by pain from arthritis. Strength 3/5 b/l lower extremities limited to pain and swelling. PSYCH: Normal mood, normal affect. Laboratory Results - last 24 hr 03/03/18 06:00 Sodium 140 Potassium 4.4 Chloride 98 Carbon Dioxide 37 H Anion Gap 4 L BUN 33 H Creatinine 1.0 Creat Clearance w eGFR 52.95 Random Glucose 214 H Calcium 8.7 Phosphorus 4.2 Magnesium 2.5 H Active Medications Generic Name Dose Route Start Last Admin Trade Name Freq PRN Reason Stop Dose Admin Acetaminophen 650 mg 02/27/18 12:03 03/01/18 23:33 Tylenol - PO 650 mg Q6H PRN Administration Fever Acetaminophen 650 mg 02/27/18 14:28 02/27/18 22:04 Tylenol - PO 650 mg Q6H PRN Administration PAIN Albuterol/Ipratropium 1 amp 02/27/18 06:27 03/02/18 06:30 Duoneb - NEB 1 amp Q4H PRN Administration ASTHMA Albuterol/Ipratropium 1 amp 02/27/18 12:00 03/03/18 07:27 Duoneb - NEB 1 amp RQID PK Administration Amlodipine Besylate 10 mg 02/26/18 10:30 03/02/18 10:21 Norvasc - PO 10 mg DAILY PK Administration Apixaban 5 mg 02/26/18 10:00 03/02/18 21:11 Eliquis - PO 5 mg BID PK Administration Atorvastatin Calcium 20 mg 02/27/18 22:00 03/02/18 21:11 Lipitor - PO 20 mg HS PK Administration Docusate Sodium 100 mg 02/27/18 18:00 03/02/18 10:23 Colace - PO 100 mg DAILY PK Administration Furosemide 40 mg 03/02/18 14:00 03/03/18 06:07 Lasix Injection - IVPUSH 40 mg BID@0600,1400 PK Administration Lisinopril 40 mg 02/26/18 10:30 03/02/18 10:22 Prinivil PO 40 mg DAILY PK Administration Nebivolol 5 mg 03/01/18 22:00 03/02/18 22:01 Bystolic - PO 5 mg BID PK Administration Prednisone 30 mg 03/03/18 10:00 Deltasone - PO DAILY PK Fluticasone/Salmeterol 1 puff 02/27/18 11:45 03/02/18 21:10 Advair 100mcg/50mcg - IH 1 puff BID PK Administration Senna 1 tab 02/27/18 22:00 03/02/18 21:11 Senna - PO 1 tab HS PRN Administration CONSTIPATION Sertraline HCl 50 mg 02/26/18 10:45 03/02/18 10:22 Zoloft - PO 50 mg DAILY PK Administration Spironolactone 25 mg 03/01/18 11:45 03/02/18 10:22 Aldactone - PO 25 mg DAILY PK Administration ASSESSMENT/PLAN: Patient is an 82 year old female with history of asthma, COPD, Afib (on Elequis ) DM, HTN, HLD, arthritis presents with shortness of breath for the past 3 days prior to admission Shortness of breath -Likely secondary to CHF exacerbation. -Lasix 40mg IV BID -Aldactone 25mg PO daily -Duonebs QID, and Q4H PRN -Advair 1 puff BID -Prednisone 30mg daily -Cardiology consult (Dr. Stewart) appreciated. -Cardiac ECHO shows LV systolic function is normal, EF 55-60%. RV normal in size , function. RV systolic pressure elevated at 30-40mmHg. -Monitor intake, output, daily weights Right lower abdominal pain Uncertain if muscle strain vs. hematoma from Heparin injection -Will follow up RUQ U/S tomorrow morning. Right lower extremity pain and swelling -Pain improving. -Doppler lower extremities- No evidence of DVT b/l lower extremities. -Xray right foot shows no fracture. Genital Cyst -Completed 10 days/ 10 day course Augmentin 875-125mg Afib -Eliquis 5mg PO BID HTN -Labetalol D/C -> switched to Bystolic 10mg BID with cardiology recommendation -Amlodipine 10mg daily -Lisinopril 40mg daily HLD -Lipitor 20mg PO QHS Anxiety, depression -Sertaline 50mg daily History of diabetes -A1c is 5.5% -Patient will follow up outpatient with primary care physician concerning reinstating any diabetes medications FEN -No IV fluids -Follow CMP -Sodium restricted diet Prophylaxis -On Eliquis for Afib Disposition -Continue care in medical surgical floor Visit type - Emergency Visit Emergency Visit: Yes ED Registration Date: 02/25/18 Care time: The patient presented to the Emergency Department on the above date and was hospitalized for further evaluation of their emergent condition. - New Patient This patient is new to me today: No - Critical Care Critical Care patient: No - Discharge Referral Referred to [facility] Med P.C.: No
[2018-03-03] MEDS: SERTRALINE HCL 50 MG TABLET (FP) PO SCH (09:29)
[2018-03-03] MEDS: NEBIVOLOL 5 MG TABLET (FP) PO SCH (09:29)
[2018-03-03] MEDS: predniSONE 10 MG TABLET (UD) PO SCH (09:29)
[2018-03-03] MEDS: DOCUSATE SODIUM 100 MG CAPSULE (FP) PO SCH (09:29)
[2018-03-03] MEDS: APIXABAN 5 MG TABLET PO SCH ×2 (09:29→22:00)
[2018-03-03] MEDS: LISINOPRIL 20 MG TABLET (FP) PO SCH (09:29)
[2018-03-03] MEDS: amLODIPine BESYLATE 10 MG TABLET (FP) PO SCH (09:29)
[2018-03-03] MEDS: SPIRONOLACTONE 25 MG TABLET (FP) PO SCH (09:30)
[2018-03-03] MEDS: FLUTICASONE/SALMETEROL 100 MCG/50 MCG DISKUS IH SCH ×2 (09:30→22:00)
[2018-03-03] MEDS ORDERED: predniSONE 10 MG TABLET (UD) PO ONE (10:00)
--- NOTE | 2018-03-03 11:11 | PN ---
Progress Note, Physician History of Present Illness: Shortness of breath with exertion, decreased exercise capacity, bilateral LE swelling, orthopnea, chest tightness improving with diuresis and BP control. - Current Medication List Current Medications: Active Medications Acetaminophen (Tylenol -) 650 mg PO Q6H PRN PRN Reason: Fever Last Admin: 03/01/18 23:33 Dose: 650 mg Acetaminophen (Tylenol -) 650 mg PO Q6H PRN PRN Reason: PAIN Last Admin: 02/27/18 22:04 Dose: 650 mg Albuterol/Ipratropium (Duoneb -) 1 amp NEB Q4H PRN PRN Reason: ASTHMA Last Admin: 03/02/18 06:30 Dose: 1 amp Albuterol/Ipratropium (Duoneb -) 1 amp NEB RQID [facility] Last Admin: 03/03/18 07:27 Dose: 1 amp Amlodipine Besylate (Norvasc -) 10 mg PO DAILY [facility] Last Admin: 03/03/18 09:29 Dose: 10 mg Apixaban (Eliquis -) 5 mg PO BID [facility] Last Admin: 03/03/18 09:29 Dose: 5 mg Atorvastatin Calcium (Lipitor -) 20 mg PO HS [facility] Last Admin: 03/02/18 21:11 Dose: 20 mg Docusate Sodium (Colace -) 100 mg PO DAILY [facility] Last Admin: 03/03/18 09:29 Dose: 100 mg Furosemide (Lasix Injection -) 40 mg IVPUSH BID@0600,1400 [facility] Last Admin: 03/03/18 06:07 Dose: 40 mg Lisinopril (Prinivil) 40 mg PO DAILY [facility] Last Admin: 03/03/18 09:29 Dose: 40 mg Nebivolol (Bystolic -) 5 mg PO BID [facility] Last Admin: 03/03/18 09:29 Dose: 5 mg Prednisone (Deltasone -) 30 mg PO DAILY [facility] Last Admin: 03/03/18 09:29 Dose: 30 mg Fluticasone/Salmeterol (Advair 100mcg/50mcg -) 1 puff IH BID [facility] Last Admin: 03/03/18 09:30 Dose: 1 puff Senna (Senna -) 1 tab PO HS PRN PRN Reason: CONSTIPATION Last Admin: 03/02/18 21:11 Dose: 1 tab Sertraline HCl (Zoloft -) 50 mg PO DAILY [facility] Last Admin: 03/03/18 09:29 Dose: 50 mg Spironolactone (Aldactone -) 25 mg PO DAILY [facility] Last Admin: 03/03/18 09:30 Dose: 25 mg - Objective Vital Signs: Vital Signs Temperature 97.9 F 03/03/18 10:00 Pulse Rate 68 03/03/18 10:00 Respiratory Rate 18 03/03/18 10:00 Blood Pressure 151/60 03/03/18 10:00 O2 Sat by Pulse Oximetry (%) 91 L 03/03/18 09:00 Constitutional: Yes: No Distress, Calm Neck: Yes: Supple Cardiovascular: Yes: Regular Rate and Rhythm Respiratory: Yes: Regular, Diminished, On Nasal O2 Gastrointestinal: Yes: Normal Bowel Sounds, Soft Edema: No Labs: CBC, BMP 03/02/18 06:00 03/03/18 06:00 INR, PTT INR 1.66 (0.83-1.09) H 02/26/18 06:00 Problem List - Problems (1) Acute on chronic diastolic (congestive) heart failure Code(s): I50.33 - ACUTE ON CHRONIC DIASTOLIC (CONGESTIVE) HEART FAILURE (2) [id number] kidney injury Code(s): N17.9 - ACUTE KIDNEY FAILURE, UNSPECIFIED; N18.9 - CHRONIC KIDNEY DISEASE, UNSPECIFIED Qualifiers: Acute renal failure type: unspecified Chronic kidney disease stage: stage 2 (mild) Qualified Code(s): N17.9 - Acute kidney failure, unspecified; N18.2 - Chronic kidney disease, stage 2 (mild) (3) Anemia Code(s): D64.9 - ANEMIA, UNSPECIFIED Qualifiers: Anemia type: unspecified type Qualified Code(s): D64.9 - Anemia, unspecified (4) Dyspnea Code(s): R06.00 - DYSPNEA, UNSPECIFIED Qualifiers: Dyspnea type: dyspnea on exertion Qualified Code(s): R06.09 - Other forms of dyspnea (5) HTN (hypertension) Code(s): I10 - ESSENTIAL (PRIMARY) HYPERTENSION Qualifiers: Hypertension type: essential hypertension Qualified Code(s): I10 - Essential (primary) hypertension (6) Aortic valve stenosis Code(s): I35.0 - NONRHEUMATIC AORTIC (VALVE) STENOSIS Qualifiers: Cardiac valve disease etiology: nonrheumatic Qualified Code(s): I35.0 - Nonrheumatic aortic (valve) stenosis (7) Atrial fibrillation Code(s): I48.91 - UNSPECIFIED ATRIAL FIBRILLATION Qualifiers: Atrial fibrillation type: persistent Qualified Code(s): I48.1 - Persistent atrial fibrillation (8) COPD (chronic obstructive pulmonary disease) Code(s): J44.9 - CHRONIC OBSTRUCTIVE PULMONARY DISEASE, UNSPECIFIED Qualifiers: COPD type: unspecified COPD Qualified Code(s): J44.9 - Chronic obstructive pulmonary disease, unspecified (9) Diabetes mellitus Code(s): E11.9 - TYPE 2 DIABETES MELLITUS WITHOUT COMPLICATIONS Qualifiers: Diabetes mellitus type: type 2 Diabetes mellitus fdc insulin use: without fdc use Diabetes mellitus complication status: without complication Qualified Code(s): E11.9 - Type 2 diabetes mellitus without complications (10) Hypercholesterolemia Code(s): E78.00 - PURE HYPERCHOLESTEROLEMIA, UNSPECIFIED Assessment/Plan 09/10/2017 Echo: Normal LV size and fxn, LVEF 65%, mild cLVH, abnl LV compliance , mod TRINI, mild MR, TR, mod MG 25 mmHg 02/28/2018 Echo: Normal LV size and fxn LVEF 55-60%, restrictive physiology, mild LAE, mild MR, TR RVSP 40-40 mmHg, mod-severe CHARI 0.80 cm^2, MG 32 mmHg 1. Acute on chronic LV diastolic failure with moderate-severe improving 2. COPD 3. Persistent atrial fibrillation with [id number] score of 7 on Eliquis 4. Type 2 diabetes mellitus 5. Hypertensive urgency 6. Hypercholesterolemia 7. Acute on chronic kidney disease 8. Anemia 9. Degenerative joint disease post right THR PLAN: 1. IV diuresis and Aldactone 25 qd with monitor diuretic response, renal fxn and electrolytes 2. Ruled out for NH, repeat echo to reassess ventricular and valve fxn in 6 months to document progression and R&LHc 3. Continue Bystolic 5 bid, Lisinopril 40 qd, Eliquis 5 bid, Lipitor 20 qhs, and Amlodipine 10 qd 4. BD, O2 as needed, oral steroid course 5. Consider proceeding with R&LHC for further evaluation of severity (as outpatient) and possible intervention, TAVR if appropriate
[2018-03-03] MEDS ORDERED: NEBIVOLOL 5 MG TABLET (FP) PO ONE (12:30)
--- NOTE | 2018-03-03 12:30 | PN ---
Progress Note (short form) - Note Progress Note: PULMONARY Breathing better. Less cough. Vital Signs Period Temp Pulse Resp BP Sys/Mo Pulse Ox Last 24 Hr 97.9 F-98.7 F 66-81 18-20 151-168/59-93 91-95 Intake & Output 02/28/18 03/01/18 03/02/18 03/03/18 23:59 23:59 23:59 23:59 Intake Total 470 1180 510 470 Output Total 5199 523 0086 500 Balance -1430 355 -890 -30 Weight 83.178 kg 79.889 kg 81.25 kg Gen: NAD at rest Heart: irregular, +systolic murmur Lung: bibasilar rales Abd: soft, nontender Ext: no edema CBC, BMP 03/02/18 06:00 03/03/18 06:00 Active Medications Acetaminophen (Tylenol -) 650 mg PO Q6H PRN PRN Reason: Fever Last Admin: 03/01/18 23:33 Dose: 650 mg Acetaminophen (Tylenol -) 650 mg PO Q6H PRN PRN Reason: PAIN Last Admin: 02/27/18 22:04 Dose: 650 mg Albuterol/Ipratropium (Duoneb -) 1 amp NEB Q4H PRN PRN Reason: ASTHMA Last Admin: 03/02/18 06:30 Dose: 1 amp Albuterol/Ipratropium (Duoneb -) 1 amp NEB RQID [facility] Last Admin: 03/03/18 11:21 Dose: 1 amp Amlodipine Besylate (Norvasc -) 10 mg PO DAILY [facility] Last Admin: 03/03/18 09:29 Dose: 10 mg Apixaban (Eliquis -) 5 mg PO BID [facility] Last Admin: 03/03/18 09:29 Dose: 5 mg Atorvastatin Calcium (Lipitor -) 20 mg PO HS [facility] Last Admin: 03/02/18 21:11 Dose: 20 mg Docusate Sodium (Colace -) 100 mg PO DAILY [facility] Last Admin: 03/03/18 09:29 Dose: 100 mg Furosemide (Lasix Injection -) 40 mg IVPUSH BID@0600,1400 [facility] Last Admin: 03/03/18 06:07 Dose: 40 mg Lisinopril (Prinivil) 40 mg PO DAILY [facility] Last Admin: 03/03/18 09:29 Dose: 40 mg Nebivolol (Bystolic -) 10 mg PO BID [facility] Nebivolol (Bystolic -) 5 mg PO ONCE ONE Stop: 03/03/18 12:31 Prednisone (Deltasone -) 30 mg PO DAILY [facility] Last Admin: 03/03/18 09:29 Dose: 30 mg Fluticasone/Salmeterol (Advair 100mcg/50mcg -) 1 puff IH BID [facility] Last Admin: 03/03/18 09:30 Dose: 1 puff Senna (Senna -) 1 tab PO HS PRN PRN Reason: CONSTIPATION Last Admin: 03/02/18 21:11 Dose: 1 tab Sertraline HCl (Zoloft -) 50 mg PO DAILY [facility] Last Admin: 03/03/18 09:29 Dose: 50 mg Spironolactone (Aldactone -) 25 mg PO DAILY [facility] Last Admin: 03/03/18 09:30 Dose: 25 mg A/P Acute on Chronic Diastolic Heart Failure Aortic Stenosis COPD Atrial Fibrillation HTN DM Hypercholesterolemia Anemia - continue lasix, aldactone - monitor urine output, creatinine - daily weights - can taper off steroids - inhaled bronchodilators - O2 to keep Spo2 >90% - DVT prophylaxis
--- NOTE | 2018-03-03 13:26 | PN ---
Teaching Attending Note Name of Resident: Edgard Rivers ATTENDING PHYSICIAN STATEMENT I saw and evaluated the patient. I reviewed the resident's note and discussed the case with the resident. I agree with the resident's findings and plan as documented. SUBJECTIVE: No fever or chills, No abd pain .has abd pain in L periambilical area OBJECTIVE: NAD ,comfortable in bed CV: irreg irreg. 3/6 SM at RUSB with radiation to carotids and back. 3/6 SM At apex with radiation to axilla Lungs: slightly diminished breath sounds, minimal bibasilar crackles and scattered wheezes Ext :trace pitting edema on LE ASSESSMENT AND PLAN: 82 y/o lady with h/o HTN, HLP. Diastolic heart failure, COPD who presented with SOB and was found to have acute CHF exacerbation 1- Acute diastolic CHF exacerbation. - cont iV diuresis - I&O were not reliable today - cont cardiac meds - cont prednisone taper - need further R/L heart cath as out pt 2- HTN : cont lisinopril and norvasc and increase bystolic to 10 BID 3- h/o DM. A1c is now 5.5 . 4- severe : f/u as out pt for eval for TVAR HLOC
[2018-03-03] MEDS: ATORVASTATIN CA 20 MG TABLET (FP) PO SCH (22:00)
[2018-03-03] MEDS ORDERED: NEBIVOLOL 5 MG TABLET (FP) PO SCH (22:00)
[2018-03-03] MEDS: NEBIVOLOL 10 MG TABLET (FP) PO SCH (22:07)
[2018-03-04] MEDS: FUROSEMIDE 40 MG/4 ML INJECTABLE VIAL IVPUSH SCH ×2 (05:14→14:50)
[2018-03-04 06:57] LABS: HEMOGLOBIN 9.5 GM/dL (10.7-15.3); MCH 28.1 pg (25.7-33.7); MCHC 32.9 g/dl (32.0-36.0); MEAN CELL VOLUME 85.3 fl (80-96); MEAN PLT VOLUME 9.4 fl (7.5-11.1); PLATELET COUNT 197 K/MM3 (134-434); RDW 16.1 % (11.6-15.6)
[2018-03-04 07:26] LABS: ANION GAP 4 MMOL/L (8-16); BLOOD UREA NITROGEN 33 mg/dL (7-18); CALCIUM 9.1 mg/dL (8.5-10.1); CHLORIDE 100 mmol/L (98-107); CO2 36 mmol/L (21-32); GLUCOSE,RANDOM 215 mg/dL (74-106); POTASSIUM 4.2 mmol/L (3.5-5.1); SODIUM 140 mmol/L (136-145)
--- NOTE | 2018-03-04 07:29 | PN ---
Progress Note (short form) - Note Progress Note: Chief Complaint: Events noted, notes reviewed, complaining of persistent dyspnea but improved (worsens with ambulation), denies any chest pain, denies any orthponea or PND History of Present Illness: Seen and examined on telemetry. Events noted, notes reviewed, complaining of persistent dyspnea but improved (worsens with ambulation), denies any chest pain , denies any orthponea or PND As outlined in the prior note would recommend additional evaluation for AV stenosis since it could be contributing to some extent to her clinical presentation, can be done as outpatient once her respiratory status improves/ resolves 09/10/2017 Echo: Normal LV size and fxn, LVEF 65%, mild cLVH, abnl LV compliance , mod TRINI, mild MR, TR, mod MG 25 mmHg 02/28/2018 Echo: Normal LV szie and fxn LVEF 55-60%, restrictive physiology, mild LAE, mild MR, TR RVSP 40-50 mmHg, mod-severe CHARI 0.80 cm^2, MG 32 mmHg Current Medications: Current Medications Acetaminophen (Tylenol -) 650 mg PO Q6H PRN PRN Reason: Fever Last Admin: 03/01/18 23:33 Dose: 650 mg Acetaminophen (Tylenol -) 650 mg PO Q6H PRN PRN Reason: PAIN Last Admin: 02/27/18 22:04 Dose: 650 mg Albuterol/Ipratropium (Duoneb -) 1 amp NEB RQID [facility] Last Admin: 03/03/18 19:31 Dose: 1 amp Amlodipine Besylate (Norvasc -) 10 mg PO DAILY [facility] Last Admin: 03/03/18 09:29 Dose: 10 mg Apixaban (Eliquis -) 5 mg PO BID [facility] Last Admin: 03/03/18 22:00 Dose: 5 mg Atorvastatin Calcium (Lipitor -) 20 mg PO HS [facility] Last Admin: 03/03/18 22:00 Dose: 20 mg Docusate Sodium (Colace -) 100 mg PO DAILY [facility] Last Admin: 03/03/18 09:29 Dose: 100 mg Furosemide (Lasix Injection -) 40 mg IVPUSH BID@0600,1400 [facility] Last Admin: 03/04/18 05:14 Dose: 40 mg Lisinopril (Prinivil) 40 mg PO DAILY [facility] Last Admin: 03/03/18 09:29 Dose: 40 mg Nebivolol (Bystolic -) 10 mg PO BID [facility] Last Admin: 03/03/18 22:07 Dose: 10 mg Prednisone (Deltasone -) 30 mg PO DAILY [facility] Last Admin: 03/03/18 09:29 Dose: 30 mg Prednisone (Deltasone -) 20 mg PO ONCE ONE Stop: 03/04/18 10:01 Fluticasone/Salmeterol (Advair 100mcg/50mcg -) 1 puff IH BID [facility] Last Admin: 03/03/18 22:00 Dose: 1 puff Senna (Senna -) 1 tab PO HS PRN PRN Reason: CONSTIPATION Last Admin: 03/02/18 21:11 Dose: 1 tab Sertraline HCl (Zoloft -) 50 mg PO DAILY [facility] Last Admin: 03/03/18 09:29 Dose: 50 mg Spironolactone (Aldactone -) 25 mg PO DAILY [facility] Last Admin: 03/03/18 09:30 Dose: 25 mg Review of Systems Cardiovascular: As noted above Respiratory: reports: Cough but no Sputum Production Gastrointestinal: denies: Nausea, Vomiting, Diarrhea, Constipation or Abdominal Discomfort Musculoskeletal: No Symptoms Reported Endocrine: No Symptoms Reported - Objective Vital Signs: Last Vital Signs Temp Pulse Resp BP Pulse Ox 98.4 F 66 18 163/61 91 L 03/04/18 06:00 03/04/18 02:05 03/04/18 06:00 03/04/18 06:00 03/03/18 21:00 Intake & Output 03/01/18 03/02/18 03/03/18 03/04/18 23:59 23:59 23:59 23:59 Intake Total 8802 641 8674 Output Total 825 1400 1600 1000 Balance 355 -610 460 1000 Weight 176 lb 2 oz 179 lb 2 oz 180 lb 3 oz 175 lb Constitutional: No Distress Neck: Supple Negative JVD No Bruit Respiratory: Diminished Breath Sounds at the Bases Cardiovascular: S1 S2 Irregularly Irregular Grade 2-3/6 [id number] Gastrointestinal: Soft Benign Normal Bowel Sounds Ext: Trace Edema Labs: CBC, BMP 03/04/18 06:00 03/04/18 06:00 Hepatic Panel Total Bilirubin 0.5 mg/dL (0.2-1) 02/26/18 06:00 AST 13 U/L (15-37) L 02/26/18 06:00 ALT 12 U/L (13-61) L 02/26/18 06:00 Alkaline Phosphatase 58 U/L (45-117) 02/26/18 06:00 Albumin 3.5 g/dl (3.4-5.0) 02/26/18 06:00 Assessment/Plan ASSESSMENT: 1. Acute on chronic diastolic LV dysfunction with class I-II NYHA classification LV failure, resolving 2. Chronic obstructive airway disease exacerbation, (B-Suhas therapy modified) 3. CAD non-obstructive CAD history of demand ischemic injury angina pectoris 4. Persistent atrial fibrillation with [id number] score of 7 on chronic A/C with DOAC's/Eliquis 5. Mitral valve regurgitation 6. Aortic valve stenosis moderate to severe in severity 7. Tricuspid valve regurgitation 8. Pulmonary HTN 9. HTN 10. Diabetes mellitus 11. Hypercholesterolemia 12. Acute on CKD 13. Anemia PLAN: 1. Continue Bystolic with caution and titrate as needed and as tolerated 2. Continue Amlodipine 3. Continue Prinivil with caution and close monitoring of renal function 4. Continue Lipitor 5. Continue Lasix but IV, and continue Aldactone with caution close monitoring of renal function 6. Continue Eliquis with close monitoring of CBC, maintaining Hg equal or > 8.0 7. Bronchodilators, Steroids and antibiotics as per the primary team 8. As outlined above and yesterday's note to consider proceeding with R&LHC for further evaluation of severity (as outpatient) and possible intervention, TAVR if appropriate Maliha Blake.
[2018-03-04] MEDS: ALBUTEROL SO4 2.5/IPRATROPIUM 0.5 INH SOL 3 ML VIAL.NEB. NEB SCH (07:45)
--- NOTE | 2018-03-04 08:01 | PN ---
Physical Exam: SUBJECTIVE: Patient seen and examined at bedside this morning. Admits cough, and shortness of breath, improving. Also endorses that her left upper thigh/ lower abdominal pain is improving significantly from yesterday. Denies fevers, chills, shortness of breath, chest pain, palpitations, abdominal pain, nausea, vomiting, diarrhea. OBJECTIVE: Vital Signs Temperature 98.3 F 03/04/18 14:02 Pulse Rate 63 03/04/18 14:02 Respiratory Rate 18 03/04/18 14:02 Blood Pressure 153/63 03/04/18 14:02 O2 Sat by Pulse Oximetry (%) 93 L 03/04/18 09:00 GENERAL: The patient is awake, alert, and fully oriented, in no acute distress. HEAD: Normal with no signs of trauma. EYES: PERRL, extraocular movements intact, sclera anicteric, conjunctiva clear. ENT: Oropharynx mildly erythematous, without exudates, moist mucous membranes. NECK: Trachea midline, full range of motion, supple without lymphadenopathy LUNGS: Poor inspiratory effort and air entery b/l. Faint wheezes, and crackles at lung lower lobes b/l. No accessory muscle use noted. Cough exacerbated and reproduced with deep breathing upon exam. HEART: Irregular rate and rhythm, S1, S2. Holosystolic 3/6 murmur with radiation to b/l carotids appreciated. ABDOMEN: Soft, nontender, nondistended, normoactive bowel sounds, no guarding, no rebound, no hepatosplenomegaly. EXTREMITIES: 2+ radial and dorsalis pedis pulses b/l. Warm. Right leg 1+ pitting edema, painful, erythematous compared to left. Right foot with bruise at base of first toe, tender to palpation at dorsum and ventral aspect of foot. Left anterior proximal thigh GENITAL: Crandall catheter without erythema or discharge at insertion site. NEUROLOGICAL: Cranial nerves II through XII grossly intact. Strength 3/5 b/l upper extremities limited by pain from arthritis. Strength 3/5 b/l lower extremities limited to pain and swelling. PSYCH: Normal mood, normal affect. Laboratory Results - last 24 hr 03/03/18 03/04/18 03/04/18 06:00 06:00 06:00 WBC 10.0 RBC 3.40 L Hgb 9.5 L Hct 29.0 L MCV 85.3 MCH 28.1 MCHC 32.9 RDW 16.1 H Plt Count 197 MPV 9.4 Sodium 140 140 Potassium 4.4 4.2 Chloride 98 100 Carbon Dioxide 37 H 36 H Anion Gap 4 L 4 L BUN 33 H 33 H Creatinine 1.0 1.0 Creat Clearance w eGFR 52.95 52.95 Random Glucose 214 H 215 H Calcium 8.7 9.1 Phosphorus 4.2 Magnesium 2.5 H Active Medications Generic Name Dose Route Start Last Admin Trade Name Freq PRN Reason Stop Dose Admin Acetaminophen 650 mg 02/27/18 12:03 03/01/18 23:33 Tylenol - PO 650 mg Q6H PRN Administration Fever Acetaminophen 650 mg 02/27/18 14:28 02/27/18 22:04 Tylenol - PO 650 mg Q6H PRN Administration PAIN Albuterol/Ipratropium 1 amp 02/27/18 12:00 03/03/18 19:31 Duoneb - NEB 1 amp RQID PK Administration Amlodipine Besylate 10 mg 02/26/18 10:30 03/03/18 09:29 Norvasc - PO 10 mg DAILY PK Administration Apixaban 5 mg 02/26/18 10:00 03/03/18 22:00 Eliquis - PO 5 mg BID PK Administration Atorvastatin Calcium 20 mg 02/27/18 22:00 03/03/18 22:00 Lipitor - PO 20 mg HS PK Administration Docusate Sodium 100 mg 02/27/18 18:00 03/03/18 09:29 Colace - PO 100 mg DAILY PK Administration Furosemide 40 mg 03/02/18 14:00 03/04/18 05:14 Lasix Injection - IVPUSH 40 mg BID@0600,1400 PK Administration Lisinopril 40 mg 02/26/18 10:30 03/03/18 09:29 Prinivil PO 40 mg DAILY PK Administration Nebivolol 10 mg 03/03/18 22:15 03/03/18 22:07 Bystolic - PO 10 mg BID PK Administration Prednisone 30 mg 03/03/18 10:00 03/03/18 09:29 Deltasone - PO 30 mg DAILY PK Administration Prednisone 20 mg 03/04/18 10:00 Deltasone - PO 03/04/18 10:01 ONCE ONE Fluticasone/Salmeterol 1 puff 02/27/18 11:45 03/03/18 22:00 Advair 100mcg/50mcg - IH 1 puff BID PK Administration Senna 1 tab 02/27/18 22:00 03/02/18 21:11 Senna - PO 1 tab HS PRN Administration CONSTIPATION Sertraline HCl 50 mg 02/26/18 10:45 03/03/18 09:29 Zoloft - PO 50 mg DAILY PK Administration Spironolactone 25 mg 03/01/18 11:45 03/03/18 09:30 Aldactone - PO 25 mg DAILY PK Administration ASSESSMENT/PLAN: Patient is an 82 year old female with history of asthma, COPD, Afib (on Elequis ) DM, HTN, HLD, arthritis presents with shortness of breath for the past 3 days prior to admission Shortness of breath -Likely secondary to CHF exacerbation. -Lasix 40mg IV BID, and one extra dose 40mg IV today -Aldactone 25mg PO daily -Duonebs QID, and Q4H PRN -Advair 1 puff BID -Prednisone 20mg today -Cardiology consult (Dr. Stewart) appreciated. -Cardiac ECHO shows LV systolic function is normal, EF 55-60%. RV normal in size , function. RV systolic pressure elevated at 30-40mmHg. -Monitor intake, output, daily weights Right lower abdominal pain Uncertain if muscle strain vs. hematoma from Heparin injection -Abdominal ultrasound shows no hematoma Right lower extremity pain and swelling -Pain improving. -Doppler lower extremities- No evidence of DVT b/l lower extremities. -Xray right foot shows no fracture. Genital Cyst -Completed 10 days/ 10 day course Augmentin 875-125mg Afib -Anticoagulation with Eliquis 5mg PO BID HTN -Labetalol D/C -> switched, and increased to Bystolic 20mg BID -Amlodipine 10mg daily -Lisinopril 40mg daily HLD -Lipitor 20mg PO QHS Anxiety, depression -Sertaline 50mg daily History of diabetes -A1c is 5.5% -Patient will follow up outpatient with primary care physician concerning reinstating any diabetes medications FEN -No IV fluids -Follow CMP -Sodium restricted diet Prophylaxis -On Eliquis for Afib Disposition -Continue care in medical surgical floor Visit type - Emergency Visit Emergency Visit: Yes ED Registration Date: 10/02/18 Care time: The patient presented to the Emergency Department on the above date and was hospitalized for further evaluation of their emergent condition. - New Patient This patient is new to me today: No - Critical Care Critical Care patient: No - Discharge Referral Referred to [facility] No
[2018-03-04] MEDS ORDERED: predniSONE 20 MG TABLET (UD) PO ONE (10:00)
[2018-03-04] MEDS ORDERED: PT OWN MED DRAWER 7, Y5N ONE ×3 (10:19→21:22)
[2018-03-04] MEDS: NEBIVOLOL 10 MG TABLET (FP) PO SCH ×2 (10:23→21:25)
[2018-03-04] MEDS: SERTRALINE HCL 50 MG TABLET (FP) PO SCH (10:23)
[2018-03-04] MEDS: predniSONE 10 MG TABLET (UD) PO SCH (10:23)
[2018-03-04] MEDS: APIXABAN 5 MG TABLET PO SCH ×2 (10:24→21:25)
[2018-03-04] MEDS: amLODIPine BESYLATE 10 MG TABLET (FP) PO SCH (10:24)
[2018-03-04] MEDS: LISINOPRIL 20 MG TABLET (FP) PO SCH (10:24)
[2018-03-04] MEDS: DOCUSATE SODIUM 100 MG CAPSULE (FP) PO SCH (10:24)
[2018-03-04] MEDS: SPIRONOLACTONE 25 MG TABLET (FP) PO SCH (10:25)
[2018-03-04] MEDS: FLUTICASONE/SALMETEROL 100 MCG/50 MCG DISKUS IH SCH ×2 (10:26→21:24)
[2018-03-04] MEDS ORDERED: NEBIVOLOL 10 MG TABLET (FP) PO ONE (12:26)
--- NOTE | 2018-03-04 13:10 | PN ---
Progress Note, Physician History of Present Illness: PULMONARY ALERT,FEELING BETTER,LESS DYSPNEIC,LESS COUGH,-CP - Current Medication List Current Medications: Active Medications Acetaminophen (Tylenol -) 650 mg PO Q6H PRN PRN Reason: Fever Last Admin: 03/01/18 23:33 Dose: 650 mg Acetaminophen (Tylenol -) 650 mg PO Q6H PRN PRN Reason: PAIN Last Admin: 02/27/18 22:04 Dose: 650 mg Amlodipine Besylate (Norvasc -) 10 mg PO DAILY [facility] Last Admin: 03/04/18 10:24 Dose: 10 mg Apixaban (Eliquis -) 5 mg PO BID [facility] Last Admin: 03/04/18 10:24 Dose: 5 mg Atorvastatin Calcium (Lipitor -) 20 mg PO HS [facility] Last Admin: 03/03/18 22:00 Dose: 20 mg Docusate Sodium (Colace -) 100 mg PO DAILY [facility] Last Admin: 03/04/18 10:24 Dose: 100 mg Furosemide (Lasix Injection -) 40 mg IVPUSH BID@0600,1400 [facility] Last Admin: 03/04/18 05:14 Dose: 40 mg Furosemide (Lasix Injection -) 40 mg IVPUSH BID@0600,1400 [facility] Lisinopril (Prinivil) 40 mg PO DAILY [facility] Last Admin: 03/04/18 10:24 Dose: 40 mg Nebivolol (Bystolic -) 20 mg PO BID [facility] Prednisone (Deltasone -) 30 mg PO DAILY [facility] Last Admin: 03/04/18 10:23 Dose: 30 mg Fluticasone/Salmeterol (Advair 100mcg/50mcg -) 1 puff IH BID [facility] Last Admin: 03/04/18 10:26 Dose: 1 puff Senna (Senna -) 1 tab PO HS PRN PRN Reason: CONSTIPATION Last Admin: 03/02/18 21:11 Dose: 1 tab Sertraline HCl (Zoloft -) 50 mg PO DAILY [facility] Last Admin: 03/04/18 10:23 Dose: 50 mg Spironolactone (Aldactone -) 25 mg PO DAILY [facility] Last Admin: 03/04/18 10:25 Dose: 25 mg - Objective Vital Signs: Vital Signs Temperature 99.1 F 03/04/18 10:15 Pulse Rate 67 03/04/18 10:15 Respiratory Rate 26 H 03/04/18 11:30 Blood Pressure 157/74 03/04/18 10:15 O2 Sat by Pulse Oximetry (%) 91 L 03/03/18 21:00 Constitutional: Yes: Well Nourished, Calm Eyes: Yes: WNL HENT: Yes: WNL Neck: Yes: WNL Cardiovascular: Yes: Pulse Irregular, S1, S2 Respiratory: Yes: Rales (BIBASILAR RALES) Gastrointestinal: Yes: Normal Bowel Sounds, Soft Extremities: Yes: WNL Edema: No Labs: CBC, BMP 03/04/18 06:00 03/04/18 06:00 INR, PTT INR 1.66 (0.83-1.09) H 02/26/18 06:00 Problem List - Problems (1) CHF exacerbation Code(s): I50.9 - HEART FAILURE, UNSPECIFIED (2) Acute on chronic diastolic (congestive) heart failure Code(s): I50.33 - ACUTE ON CHRONIC DIASTOLIC (CONGESTIVE) HEART FAILURE (3) HTN (hypertension) Code(s): I10 - ESSENTIAL (PRIMARY) HYPERTENSION Qualifiers: Hypertension type: essential hypertension Qualified Code(s): I10 - Essential (primary) hypertension (4) Shortness of breath Code(s): R06.02 - SHORTNESS OF BREATH (5) Aortic valve stenosis Code(s): I35.0 - NONRHEUMATIC AORTIC (VALVE) STENOSIS Qualifiers: Cardiac valve disease etiology: nonrheumatic Qualified Code(s): I35.0 - Nonrheumatic aortic (valve) stenosis (6) Atrial fibrillation Code(s): I48.91 - UNSPECIFIED ATRIAL FIBRILLATION Qualifiers: Atrial fibrillation type: persistent Qualified Code(s): I48.1 - Persistent atrial fibrillation (7) COPD (chronic obstructive pulmonary disease) Code(s): J44.9 - CHRONIC OBSTRUCTIVE PULMONARY DISEASE, UNSPECIFIED Qualifiers: COPD type: unspecified COPD Qualified Code(s): J44.9 - Chronic obstructive pulmonary disease, unspecified (8) Diabetes mellitus Code(s): E11.9 - TYPE 2 DIABETES MELLITUS WITHOUT COMPLICATIONS Qualifiers: Diabetes mellitus type: type 2 Diabetes mellitus jail insulin use: without middle or intermediate school principal use Diabetes mellitus complication status: without complication Qualified Code(s): E11.9 - Type 2 diabetes mellitus without complications Assessment/Plan A/P Acute on Chronic Diastolic Heart Failure clinically improving Aortic Stenosis COPD Atrial Fibrillation HTN DM Hypercholesterolemia Anemia - continue lasix, aldactone - monitor urine output, creatinine - daily weights - steroid taper - inhaled bronchodilators - O2 to keep Spo2 >90% - DVT prophylaxis DR PACHECO
[2018-03-04] MEDS ORDERED: FUROSEMIDE 40 MG/4 ML INJECTABLE VIAL IVPUSH SCH (14:00)
[2018-03-04] MEDS ORDERED: FUROSEMIDE 40 MG/4 ML INJECTABLE VIAL IVPUSH ONE ×2 (14:08→18:00)
--- NOTE | 2018-03-04 14:29 | PN ---
Teaching Attending Note Name of Resident: Edgard Rivers ATTENDING PHYSICIAN STATEMENT I saw and evaluated the patient. I reviewed the resident's note and discussed the case with the resident. I agree with the resident's findings and plan as documented. SUBJECTIVE: No fever or chills. No abd pain , cont to have SOB and worse when she moves . No abd pain OBJECTIVE: NAD, comfortable in bed CV: irreg irreg. 3/6 SM at RUSB with radiation to carotids and back. 3/6 SM At apex with radiation to axilla Lungs: improved air entry but with increased crackles ( half way down) Ext: no edema or erythema ASSESSMENT AND PLAN: 82 y/o lady with h/o HTN, HLP. Diastolic heart failure, COPD who presented with SOB and was found to have acute CHF exacerbation 1- Acute diastolic CHF exacerbation. Cont to have crackles and SOB . no enough urine ut put yesterday . weight stil above dry weight - cont IV lasix 40 BId , and give extra dose today - cont cardiac meds - cont prednisone taper. decrease dose todya - need further R/L heart cath as out pt 2- HTN : cont lisinopril and norvasc and increase bystolic to 20 BID 3- h/o DM. A1c is now 5.5 . no need for her oral PO meds at dc 4- severe : f/u as out pt for eval for TVAR HLOC
[2018-03-04 17:34] VITALS: BMI 33.0
[2018-03-04] MEDS: ATORVASTATIN CA 20 MG TABLET (FP) PO SCH (21:25)
[2018-03-05] MEDS: FUROSEMIDE 40 MG/4 ML INJECTABLE VIAL IVPUSH SCH ×2 (05:18→14:00)
[2018-03-05 07:03] LABS: HEMATOCRIT 30.6 % (32.4-45.2); HEMOGLOBIN 9.9 GM/dL (10.7-15.3); MCH 27.4 pg (25.7-33.7); MCHC 32.3 g/dl (32.0-36.0); MEAN PLT VOLUME 9.2 fl (7.5-11.1); PLATELET COUNT 231 K/MM3 (134-434); RDW 15.9 % (11.6-15.6); WHITE BLOOD COUNT 9.5 K/mm3 (4.0-10.0)
[2018-03-05 07:32] LABS: ALBUMIN 3.5 g/dl (3.4-5.0); ALK PHOS 61 U/L (45-117); ANION GAP 6 MMOL/L (8-16); BILIRUBIN,TOTAL 0.7 mg/dL (0.2-1); BLOOD UREA NITROGEN 38 mg/dL (7-18); CALCIUM 8.7 mg/dL (8.5-10.1); CHLORIDE 94 mmol/L (98-107); CO2 36 mmol/L (21-32); CREATININE 1.2 mg/dL (0.55-1.3); GLUCOSE,RANDOM 289 mg/dL (74-106); POTASSIUM 3.9 mmol/L (3.5-5.1); SGOT/AST 20 U/L (15-37); SGPT/ALT 32 U/L (13-61); SODIUM 137 mmol/L (136-145); TOT PROT 6.5 g/dl (6.4-8.2)
[2018-03-05] MEDS ORDERED: predniSONE 10 MG TABLET (UD) PO ONE (10:00)
[2018-03-05] MEDS ORDERED: PT OWN MED DRAWER 7, Y5N ONE ×3 (10:01→20:52)
[2018-03-05] MEDS ORDERED: guaiFENesin/CODEINE 5 ML UNIT-DOSE CUPS PO PRN (10:14)
[2018-03-05] MEDS: FLUTICASONE/SALMETEROL 100 MCG/50 MCG DISKUS IH SCH ×2 (10:25→21:26)
[2018-03-05] MEDS: SPIRONOLACTONE 25 MG TABLET (FP) PO SCH (10:25)
[2018-03-05] MEDS: APIXABAN 5 MG TABLET PO SCH ×2 (10:26→21:25)
[2018-03-05] MEDS: SERTRALINE HCL 50 MG TABLET (FP) PO SCH (10:26)
[2018-03-05] MEDS: NEBIVOLOL 10 MG TABLET (FP) PO SCH ×2 (10:26→21:25)
[2018-03-05] MEDS: LISINOPRIL 20 MG TABLET (FP) PO SCH (10:26)
[2018-03-05] MEDS: amLODIPine BESYLATE 10 MG TABLET (FP) PO SCH (10:26)
[2018-03-05] MEDS: DOCUSATE SODIUM 100 MG CAPSULE (FP) PO SCH (10:26)
--- NOTE | 2018-03-05 11:41 | PN ---
Physical Exam: SUBJECTIVE: Patient seen and examined at bedside this morning. Admits shortness of breath, and cough exacerbated with deep inspiration. Also endorses that her left upper thigh/ lower abdominal pain is improving significantly from yesterday. Denies fevers, chills, shortness of breath, chest pain, palpitations , abdominal pain, nausea, vomiting, diarrhea. OBJECTIVE: Vital Signs Temperature 98.5 F 03/05/18 09:16 Pulse Rate 63 03/05/18 09:16 Respiratory Rate 20 03/05/18 09:16 Blood Pressure 155/67 03/05/18 09:16 O2 Sat by Pulse Oximetry (%) 93 L 03/05/18 09:00 GENERAL: The patient is awake, alert, and fully oriented, in no acute distress. HEAD: Normal with no signs of trauma. EYES: PERRL, extraocular movements intact, sclera anicteric, conjunctiva clear. ENT: Oropharynx mildly erythematous, without exudates, moist mucous membranes. NECK: Trachea midline, full range of motion, supple without lymphadenopathy LUNGS: Poor inspiratory effort and air entery b/l. Faint wheezes, and crackles at lung lower lobes b/l. No accessory muscle use noted. Cough exacerbated and reproduced with deep breathing upon exam. HEART: Irregular rate and rhythm, S1, S2. Holosystolic 3/6 murmur with radiation to b/l carotids appreciated. ABDOMEN: Soft, nontender, nondistended, normoactive bowel sounds, no guarding, no rebound, no hepatosplenomegaly. EXTREMITIES: 2+ radial and dorsalis pedis pulses b/l. Warm. Right leg 1+ pitting edema, painful, erythematous compared to left. Right foot with bruise at base of first toe, tender to palpation at dorsum and ventral aspect of foot. Left anterior proximal thigh GENITAL: Crandall catheter without erythema or discharge at insertion site. NEUROLOGICAL: Cranial nerves II through XII grossly intact. Strength 3/5 b/l upper extremities limited by pain from arthritis. Strength 3/5 b/l lower extremities limited to pain and swelling. PSYCH: Normal mood, normal affect. Laboratory Results - last 24 hr 03/05/18 03/05/18 06:00 06:00 WBC 9.5 RBC 3.60 Hgb 9.9 L Hct 30.6 L MCV 85.0 MCH 27.4 MCHC 32.3 RDW 15.9 H Plt Count 231 MPV 9.2 Sodium 137 Potassium 3.9 Chloride 94 L Carbon Dioxide 36 H Anion Gap 6 L BUN 38 H Creatinine 1.2 Creat Clearance w eGFR 42.90 Random Glucose 289 H Calcium 8.7 Total Bilirubin 0.7 AST 20 ALT 32 Alkaline Phosphatase 61 Total Protein 6.5 Albumin 3.5 Active Medications Generic Name Dose Route Start Last Admin Trade Name Freq PRN Reason Stop Dose Admin Acetaminophen 650 mg 02/27/18 12:03 03/01/18 23:33 Tylenol - PO 650 mg Q6H PRN Administration Fever Acetaminophen 650 mg 02/27/18 14:28 02/27/18 22:04 Tylenol - PO 650 mg Q6H PRN Administration PAIN Amlodipine Besylate 10 mg 02/26/18 10:30 03/05/18 10:26 Norvasc - PO 10 mg DAILY PK Administration Apixaban 5 mg 02/26/18 10:00 03/05/18 10:26 Eliquis - PO 5 mg BID PK Administration Atorvastatin Calcium 20 mg 02/27/18 22:00 03/04/18 21:25 Lipitor - PO 20 mg HS PK Administration Docusate Sodium 100 mg 02/27/18 18:00 03/05/18 10:26 Colace - PO 100 mg DAILY PK Administration Furosemide 40 mg 03/02/18 14:00 03/05/18 05:18 Lasix Injection - IVPUSH 40 mg BID@0600,1400 PK Administration Guaifenesin/Codeine Phosphate 5 ml 03/05/18 10:14 03/05/18 10:38 Robitussin Ac - PO 5 ml TID PRN Administration COUGH Lisinopril 40 mg 02/26/18 10:30 03/05/18 10:26 Prinivil PO 40 mg DAILY PK Administration Nebivolol 20 mg 03/04/18 22:15 03/05/18 10:26 Bystolic - PO 20 mg BID PK Administration Fluticasone/Salmeterol 1 puff 02/27/18 11:45 03/05/18 10:25 Advair 100mcg/50mcg - IH 1 puff BID PK Administration Senna 1 tab 02/27/18 22:00 03/02/18 21:11 Senna - PO 1 tab HS PRN Administration CONSTIPATION Sertraline HCl 50 mg 02/26/18 10:45 03/05/18 10:26 Zoloft - PO 50 mg DAILY PK Administration Spironolactone 25 mg 03/01/18 11:45 03/05/18 10:25 Aldactone - PO 25 mg DAILY PK Administration ASSESSMENT/PLAN: Patient is an 82 year old female with history of asthma, COPD, Afib (on Elequis ) DM, HTN, HLD, arthritis presents with shortness of breath for the past 3 days prior to admission Shortness of breath -Likely secondary to CHF exacerbation. -Cardiac ECHO shows LV systolic function is normal, EF 55-60%. RV normal in size , function. RV systolic pressure elevated at 30-40mmHg. -Cardiology consult (Dr. Stewart) appreciated. -Pulmonary consult (Dr. Vásquez) appreciated. -Lasix 40mg IV BID -Aldactone 50mg PO daily increased with cardiology recommendation -Duonebs QID, and Q4H PRN -Advair 1 puff BID -Prednisone 10mg today -Monitor intake, output, daily weights -Guaifenesin AC 5mg PO TID PRN for cough -Incentive spirometer to prevent atelectasis as patient unable to take deep breaths. Right lower abdominal pain Likely muscle strain. Pain is improving. -Abdominal ultrasound shows no evidence of hematoma. Right lower extremity pain and swelling -Pain improving. -Doppler lower extremities- No evidence of DVT b/l lower extremities. -Xray right foot shows no fracture. Genital Cyst -Completed 10 days/ 10 day course Augmentin 875-125mg Afib -Anticoagulation with Eliquis 5mg PO BID HTN -Labetalol D/C -> switched, and increased to Bystolic 20mg BID -Amlodipine 10mg daily -Lisinopril 40mg daily HLD -Lipitor 20mg PO QHS Anxiety, depression -Sertaline 50mg daily History of diabetes -A1c is 5.5% -Patient will follow up outpatient with primary care physician concerning reinstating any diabetes medications FEN -No IV fluids -Follow CMP -Sodium restricted diet Prophylaxis -On Eliquis for Afib Disposition -Continue care in medical surgical floor Visit type - Emergency Visit Emergency Visit: Yes ED Registration Date: 02/25/18 Care time: The patient presented to the Emergency Department on the above date and was hospitalized for further evaluation of their emergent condition. - New Patient This patient is new to me today: No - Critical Care Critical Care patient: No - Discharge Referral Referred to [facility] No
--- NOTE | 2018-03-05 12:10 | PN ---
Progress Note, Physician History of Present Illness: pulmonary alert,no distress,oob-chair,dyspnea improving - Current Medication List Current Medications: Active Medications Acetaminophen (Tylenol -) 650 mg PO Q6H PRN PRN Reason: Fever Last Admin: 03/01/18 23:33 Dose: 650 mg Acetaminophen (Tylenol -) 650 mg PO Q6H PRN PRN Reason: PAIN Last Admin: 02/27/18 22:04 Dose: 650 mg Amlodipine Besylate (Norvasc -) 10 mg PO DAILY [facility] Last Admin: 03/05/18 10:26 Dose: 10 mg Apixaban (Eliquis -) 5 mg PO BID [facility] Last Admin: 03/05/18 10:26 Dose: 5 mg Atorvastatin Calcium (Lipitor -) 20 mg PO HS [facility] Last Admin: 03/04/18 21:25 Dose: 20 mg Docusate Sodium (Colace -) 100 mg PO DAILY [facility] Last Admin: 03/05/18 10:26 Dose: 100 mg Furosemide (Lasix Injection -) 40 mg IVPUSH BID@0600,1400 [facility] Last Admin: 03/05/18 05:18 Dose: 40 mg Guaifenesin/Codeine Phosphate (Robitussin Ac -) 5 ml PO TID PRN PRN Reason: COUGH Last Admin: 03/05/18 10:38 Dose: 5 ml Lisinopril (Prinivil) 40 mg PO DAILY [facility] Last Admin: 03/05/18 10:26 Dose: 40 mg Nebivolol (Bystolic -) 20 mg PO BID [facility] Last Admin: 03/05/18 10:26 Dose: 20 mg Fluticasone/Salmeterol (Advair 100mcg/50mcg -) 1 puff IH BID [facility] Last Admin: 03/05/18 10:25 Dose: 1 puff Senna (Senna -) 1 tab PO HS PRN PRN Reason: CONSTIPATION Last Admin: 03/02/18 21:11 Dose: 1 tab Sertraline HCl (Zoloft -) 50 mg PO DAILY [facility] Last Admin: 03/05/18 10:26 Dose: 50 mg Spironolactone (Aldactone -) 25 mg PO DAILY [facility] Last Admin: 03/05/18 10:25 Dose: 25 mg - Objective Vital Signs: Vital Signs Temperature 98.5 F 03/05/18 09:16 Pulse Rate 63 03/05/18 09:16 Respiratory Rate 20 03/05/18 09:16 Blood Pressure 155/67 03/05/18 09:16 O2 Sat by Pulse Oximetry (%) 93 L 03/05/18 09:00 Constitutional: Yes: Well Nourished, Calm Eyes: Yes: WNL HENT: Yes: WNL Neck: Yes: WNL Cardiovascular: Yes: Pulse Irregular, S1, S2 Respiratory: Yes: Rales (bilateral crackles 1/3 up) Gastrointestinal: Yes: Normal Bowel Sounds, Soft Extremities: Yes: WNL Edema: Yes Labs: CBC, BMP 03/05/18 06:00 03/05/18 06:00 INR, PTT INR 1.66 (0.83-1.09) H 02/26/18 06:00 Problem List - Problems (1) CHF exacerbation Code(s): I50.9 - HEART FAILURE, UNSPECIFIED (2) Acute on chronic diastolic (congestive) heart failure Code(s): I50.33 - ACUTE ON CHRONIC DIASTOLIC (CONGESTIVE) HEART FAILURE (3) HTN (hypertension) Code(s): I10 - ESSENTIAL (PRIMARY) HYPERTENSION Qualifiers: Hypertension type: essential hypertension Qualified Code(s): I10 - Essential (primary) hypertension (4) Shortness of breath Code(s): R06.02 - SHORTNESS OF BREATH (5) Aortic valve stenosis Code(s): I35.0 - NONRHEUMATIC AORTIC (VALVE) STENOSIS Qualifiers: Cardiac valve disease etiology: nonrheumatic Qualified Code(s): I35.0 - Nonrheumatic aortic (valve) stenosis (6) Atrial fibrillation Code(s): I48.91 - UNSPECIFIED ATRIAL FIBRILLATION Qualifiers: Atrial fibrillation type: persistent Qualified Code(s): I48.1 - Persistent atrial fibrillation (7) COPD (chronic obstructive pulmonary disease) Code(s): J44.9 - CHRONIC OBSTRUCTIVE PULMONARY DISEASE, UNSPECIFIED Qualifiers: COPD type: unspecified COPD Qualified Code(s): J44.9 - Chronic obstructive pulmonary disease, unspecified (8) Diabetes mellitus Code(s): E11.9 - TYPE 2 DIABETES MELLITUS WITHOUT COMPLICATIONS Qualifiers: Diabetes mellitus type: type 2 Diabetes mellitus upholsterer outside insulin use: without jail use Diabetes mellitus complication status: without complication Qualified Code(s): E11.9 - Type 2 diabetes mellitus without complications Assessment/Plan A/P Acute on Chronic Diastolic Heart Failure clinically improving Aortic Stenosis COPD Atrial Fibrillation HTN DM Hypercholesterolemia Anemia - continue lasix, aldactone - monitor urine output, creatinine - daily weights - inhaled bronchodilators - O2 to keep Spo2 >90% - DVT prophylaxis DR PACHECO
--- NOTE | 2018-03-05 12:43 | PN ---
Progress Note, Physician History of Present Illness: Shortness of breath with exertion, decreased exercise capacity, bilateral LE swelling, orthopnea, chest tightness improving with diuresis and BP control. - Current Medication List Current Medications: Active Medications Acetaminophen (Tylenol -) 650 mg PO Q6H PRN PRN Reason: Fever Last Admin: 03/01/18 23:33 Dose: 650 mg Acetaminophen (Tylenol -) 650 mg PO Q6H PRN PRN Reason: PAIN Last Admin: 02/27/18 22:04 Dose: 650 mg Amlodipine Besylate (Norvasc -) 10 mg PO DAILY [facility] Last Admin: 03/05/18 10:26 Dose: 10 mg Apixaban (Eliquis -) 5 mg PO BID [facility] Last Admin: 03/05/18 10:26 Dose: 5 mg Atorvastatin Calcium (Lipitor -) 20 mg PO HS [facility] Last Admin: 03/04/18 21:25 Dose: 20 mg Docusate Sodium (Colace -) 100 mg PO DAILY [facility] Last Admin: 03/05/18 10:26 Dose: 100 mg Furosemide (Lasix Injection -) 40 mg IVPUSH BID@0600,1400 [facility] Last Admin: 03/05/18 05:18 Dose: 40 mg Guaifenesin/Codeine Phosphate (Robitussin Ac -) 5 ml PO TID PRN PRN Reason: COUGH Last Admin: 03/05/18 10:38 Dose: 5 ml Lisinopril (Prinivil) 40 mg PO DAILY [facility] Last Admin: 03/05/18 10:26 Dose: 40 mg Nebivolol (Bystolic -) 20 mg PO BID [facility] Last Admin: 03/05/18 10:26 Dose: 20 mg Fluticasone/Salmeterol (Advair 100mcg/50mcg -) 1 puff IH BID [facility] Last Admin: 03/05/18 10:25 Dose: 1 puff Senna (Senna -) 1 tab PO HS PRN PRN Reason: CONSTIPATION Last Admin: 03/02/18 21:11 Dose: 1 tab Sertraline HCl (Zoloft -) 50 mg PO DAILY [facility] Last Admin: 03/05/18 10:26 Dose: 50 mg Spironolactone (Aldactone -) 25 mg PO DAILY [facility] Last Admin: 03/05/18 10:25 Dose: 25 mg - Objective Vital Signs: Vital Signs Temperature 98.5 F 03/05/18 09:16 Pulse Rate 63 03/05/18 09:16 Respiratory Rate 20 03/05/18 09:16 Blood Pressure 155/67 03/05/18 09:16 O2 Sat by Pulse Oximetry (%) 93 L 03/05/18 09:00 Constitutional: Yes: No Distress, Calm Neck: Yes: Supple Cardiovascular: Yes: Regular Rate and Rhythm, Murmur (2/6 SM) Respiratory: Yes: Regular, Diminished, On Nasal O2 Gastrointestinal: Yes: Normal Bowel Sounds, Soft Edema: No Labs: CBC, BMP 03/05/18 06:00 03/05/18 06:00 INR, PTT INR 1.66 (0.83-1.09) H 02/26/18 06:00 - ....Imaging Ultrasound: Report Reviewed (Bilateral pleural effusions and hepatic vein distension) EKG: Report Reviewed Problem List - Problems (1) Acute on chronic diastolic (congestive) heart failure Code(s): I50.33 - ACUTE ON CHRONIC DIASTOLIC (CONGESTIVE) HEART FAILURE (2) [id number] kidney injury Code(s): N17.9 - ACUTE KIDNEY FAILURE, UNSPECIFIED; N18.9 - CHRONIC KIDNEY DISEASE, UNSPECIFIED Qualifiers: Acute renal failure type: unspecified Chronic kidney disease stage: stage 2 (mild) Qualified Code(s): N17.9 - Acute kidney failure, unspecified; N18.2 - Chronic kidney disease, stage 2 (mild) (3) Anemia Code(s): D64.9 - ANEMIA, UNSPECIFIED Qualifiers: Anemia type: unspecified type Qualified Code(s): D64.9 - Anemia, unspecified (4) Dyspnea Code(s): R06.00 - DYSPNEA, UNSPECIFIED Qualifiers: Dyspnea type: dyspnea on exertion Qualified Code(s): R06.09 - Other forms of dyspnea (5) HTN (hypertension) Code(s): I10 - ESSENTIAL (PRIMARY) HYPERTENSION Qualifiers: Hypertension type: essential hypertension Qualified Code(s): I10 - Essential (primary) hypertension (6) Aortic valve stenosis Code(s): I35.0 - NONRHEUMATIC AORTIC (VALVE) STENOSIS Qualifiers: Cardiac valve disease etiology: nonrheumatic Qualified Code(s): I35.0 - Nonrheumatic aortic (valve) stenosis (7) Atrial fibrillation Code(s): I48.91 - UNSPECIFIED ATRIAL FIBRILLATION Qualifiers: Atrial fibrillation type: persistent Qualified Code(s): I48.1 - Persistent atrial fibrillation (8) COPD (chronic obstructive pulmonary disease) Code(s): J44.9 - CHRONIC OBSTRUCTIVE PULMONARY DISEASE, UNSPECIFIED Qualifiers: COPD type: unspecified COPD Qualified Code(s): J44.9 - Chronic obstructive pulmonary disease, unspecified (9) Diabetes mellitus Code(s): E11.9 - TYPE 2 DIABETES MELLITUS WITHOUT COMPLICATIONS Qualifiers: Diabetes mellitus type: type 2 Diabetes mellitus half-way insulin use: without half-way use Diabetes mellitus complication status: without complication Qualified Code(s): E11.9 - Type 2 diabetes mellitus without complications (10) Hypercholesterolemia Code(s): E78.00 - PURE HYPERCHOLESTEROLEMIA, UNSPECIFIED Assessment/Plan 09/10/2017 Echo: Normal LV size and fxn, LVEF 65%, mild cLVH, abnl LV compliance , mod TRINI, mild MR, TR, mod MG 25 mmHg 02/28/2018 Echo: Normal LV size and fxn LVEF 55-60%, restrictive physiology, mild LAE, mild MR, TR RVSP 40-40 mmHg, mod-severe CHARI 0.80 cm^2, MG 32 mmHg 1. Acute on chronic LV diastolic failure with moderate-severe improving 2. COPD 3. Persistent atrial fibrillation with [id number] score of 7 on Eliquis 4. Type 2 diabetes mellitus 5. Hypertensive urgency 6. Hypercholesterolemia 7. Acute on chronic kidney disease 8. Anemia 9. Degenerative joint disease post right THR PLAN: 1. Resume oral diuresis and increase Aldactone 50 qd with monitor diuretic response, renal fxn and electrolytes 2. Ruled out for CT, repeat echo to reassess ventricular and valve fxn in 6 months to document progression and R&LHc 3. Continue Bystolic 20 bid, Lisinopril 40 qd, Eliquis 5 bid, Lipitor 20 qhs, and Amlodipine 10 qd 4. BD, O2 as needed, oral steroid course 5. Consider proceeding with R&LHC for further evaluation of severity (as outpatient) and possible intervention, TAVR if appropriate
[2018-03-05] MEDS ORDERED: SPIRONOLACTONE 25 MG TABLET (FP) PO ONE (12:57)
--- NOTE | 2018-03-05 14:20 | PN ---
Teaching Attending Note Name of Resident: Edgard Rivers ATTENDING PHYSICIAN STATEMENT I saw and evaluated the patient. I reviewed the resident's note and discussed the case with the resident. I agree with the resident's findings and plan as documented. SUBJECTIVE: Patient is having difficulty with breathing. OBJECTIVE: Vital Signs Temperature 98.5 F 03/05/18 09:16 Pulse Rate 63 03/05/18 09:16 Respiratory Rate 20 03/05/18 09:16 Blood Pressure 155/67 03/05/18 09:16 O2 Sat by Pulse Oximetry (%) 93 L 03/05/18 09:00 GENERAL: The patient is awake, alert, and fully oriented, in no acute distress. HEAD: Normal with no signs of trauma. EYES: PERRL, extraocular movements intact, sclera anicteric, conjunctiva clear. ENT: Oropharynx mildly erythematous, without exudates, moist mucous membranes. NECK: Trachea midline, full range of motion, supple without lymphadenopathy LUNGS: Poor inspiratory effort and decreased air entery b/l. HEART: Irregular rate and rhythm, S1, S2. Holosystolic 3/6 murmur with radiation to b/l carotids ABDOMEN: Soft, nontender, nondistended, normoactive bowel sounds, no guarding, no rebound, no hepatosplenomegaly. EXTREMITIES: Right leg 1+ pitting edema, pulses are positive NEUROLOGICAL: Cranial nerves II through XII grossly intact. PSYCH: Normal mood, normal affect. CBCD WBC 9.5 K/mm3 (4.0-10.0) 03/05/18 06:00 RBC 3.60 M/mm3 (3.60-5.2) 03/05/18 06:00 Hgb 9.9 GM/dL (10.7-15.3) L 03/05/18 06:00 Hct 30.6 % (32.4-45.2) L 03/05/18 06:00 MCV 85.0 fl (80-96) 03/05/18 06:00 MCHC 32.3 g/dl (32.0-36.0) 03/05/18 06:00 RDW 15.9 % (11.6-15.6) H 03/05/18 06:00 Plt Count 231 K/MM3 (134-434) 03/05/18 06:00 MPV 9.2 fl (7.5-11.1) 03/05/18 06:00 CMP Sodium 137 mmol/L (136-145) 03/05/18 06:00 Potassium 3.9 mmol/L (3.5-5.1) 03/05/18 06:00 Chloride 94 mmol/L (98-107) L 03/05/18 06:00 Carbon Dioxide 36 mmol/L (21-32) H 03/05/18 06:00 Anion Gap 6 MMOL/L (8-16) L 03/05/18 06:00 BUN 38 mg/dL (7-18) H 03/05/18 06:00 Creatinine 1.2 mg/dL (0.55-1.3) 03/05/18 06:00 Creat Clearance w eGFR 42.90 (>60) 03/05/18 06:00 Random Glucose 289 mg/dL (74-106) H 03/05/18 06:00 Calcium 8.7 mg/dL (8.5-10.1) 03/05/18 06:00 Total Bilirubin 0.7 mg/dL (0.2-1) 03/05/18 06:00 AST 20 U/L (15-37) 03/05/18 06:00 ALT 32 U/L (13-61) 03/05/18 06:00 Alkaline Phosphatase 61 U/L (45-117) 03/05/18 06:00 Total Protein 6.5 g/dl (6.4-8.2) 03/05/18 06:00 Albumin 3.5 g/dl (3.4-5.0) 03/05/18 06:00 CARDIAC ENZYMES Creatine Kinase 34 IU/L (26-192) 02/26/18 06:00 Troponin I < 0.02 ng/ml (0.00-0.05) 02/26/18 18:00 Current Medications Generic Name Dose Route Start Last Admin Trade Name Freq PRN Reason Stop Dose Admin Acetaminophen 650 mg 02/27/18 12:03 03/01/18 23:33 Tylenol - PO 650 mg Q6H PRN Administration Fever Acetaminophen 650 mg 02/27/18 14:28 02/27/18 22:04 Tylenol - PO 650 mg Q6H PRN Administration PAIN Amlodipine Besylate 10 mg 02/26/18 10:30 03/05/18 10:26 Norvasc - PO 10 mg DAILY PK Administration Apixaban 5 mg 02/26/18 10:00 03/05/18 10:26 Eliquis - PO 5 mg BID PK Administration Atorvastatin Calcium 20 mg 02/27/18 22:00 03/04/18 21:25 Lipitor - PO 20 mg HS PK Administration Docusate Sodium 100 mg 02/27/18 18:00 03/05/18 10:26 Colace - PO 100 mg DAILY PK Administration Furosemide 40 mg 03/02/18 14:00 03/05/18 14:00 Lasix Injection - IVPUSH 03/05/18 23:59 40 mg BID@0600,1400 PK Administration Furosemide 40 mg 03/06/18 10:00 Lasix - PO BID@0600,1400 [facility] Guaifenesin/Codeine Phosphate 5 ml 03/05/18 10:14 03/05/18 10:38 Robitussin Ac - PO 5 ml TID PRN Administration COUGH Lisinopril 40 mg 02/26/18 10:30 03/05/18 10:26 Prinivil PO 40 mg DAILY PK Administration Nebivolol 20 mg 03/04/18 22:15 03/05/18 10:26 Bystolic - PO 20 mg BID PK Administration Fluticasone/Salmeterol 1 puff 02/27/18 11:45 03/05/18 10:25 Advair 100mcg/50mcg - IH 1 puff BID PK Administration Senna 1 tab 02/27/18 22:00 03/02/18 21:11 Senna - PO 1 tab HS PRN Administration CONSTIPATION Sertraline HCl 50 mg 02/26/18 10:45 03/05/18 10:26 Zoloft - PO 50 mg DAILY PK Administration Spironolactone 50 mg 03/05/18 12:58 Aldactone - PO DAILY [facility] Home Medications Medication Instructions Recorded Ferrous Sulfate 325 mg PO BID 12/29/16 Lisinopril [Zestril] 40 mg PO DAILY 12/29/16 Simvastatin 40 mg PO DAILY 12/29/16 Repaglinide [Prandin -] 1 mg PO TID 06/15/17 Albuterol 2.5/Ipratropium 0.5 1 amp NEB Q6H PRN amp 06/19/17 [Duoneb -] Omeprazole Magnesium [Prilosec Otc] 40 mg PO DAILY 09/06/17 Sertraline HCl [Zoloft -] 50 mg PO DAILY 09/09/17 Amlodipine Besylate [Norvasc -] 10 mg PO DAILY #30 tablet 09/12/17 Furosemide [Lasix -] 40 mg PO BID@0600,1400 tablet 09/12/17 Apixaban [Eliquis -] 5 mg PO BID #0 tablet 09/27/17 Labetalol HCl [Normodyne -] 200 mg PO BID tablet 09/27/17 Repaglinide 1 mg PO AC 02/25/18 Acetaminophen 500 mg PO TID PRN 02/27/18 Albuterol Sulfate [Proair 90 mcg IH Q4H PRN 02/27/18 Respiclick] Amox-Clav 875-125 mg Tablet 1 tab PO BID 02/27/18 Amoxicillin/Potassium Clav 1 each PO BID 02/27/18 [Amox-Clav 875-125 mg Tablet] Hydralazine HCl 25 mg PO BID 02/27/18 Hydralazine HCl 25 mg PO BID 02/27/18 ASSESSMENT AND PLAN: Patient is a 82 y/o lady with h/o HTN, HLP. Diastolic heart failure, COPD who presented with SOB and was found to have acute CHF exacerbation # Acute diastolic CHF exacerbation. On IV lasix 40 BId continue , need further w/u such as heart cath as an outpatient. # COPD on Prednisone continue # HTN : cont lisinopril and norvasc and increase bystolic to 20 BID # Hx of DM. A1c is now 5.5 . # severe : f/u as out pt for eval for TVAR DVT Px: Eliquis
[2018-03-05] MEDS: ATORVASTATIN CA 20 MG TABLET (FP) PO SCH (21:25)
[2018-03-06 07:16] LABS: HEMATOCRIT 31.2 % (32.4-45.2); HEMOGLOBIN 9.9 GM/dL (10.7-15.3); MCH 27.1 pg (25.7-33.7); MCHC 31.8 g/dl (32.0-36.0); MEAN CELL VOLUME 85.3 fl (80-96); MEAN PLT VOLUME 9.4 fl (7.5-11.1); PLATELET COUNT 237 K/MM3 (134-434); RBC 3.65 M/mm3 (3.60-5.2); RDW 16.1 % (11.6-15.6); WHITE BLOOD COUNT 11.4 K/mm3 (4.0-10.0)
[2018-03-06 07:32] LABS: ANION GAP 7 MMOL/L (8-16); BLOOD UREA NITROGEN 42 mg/dL (7-18); CALCIUM 8.7 mg/dL (8.5-10.1); CHLORIDE 97 mmol/L (98-107); CO2 37 mmol/L (21-32); CREATININE 1.2 mg/dL (0.55-1.3); GLUCOSE,RANDOM 192 mg/dL (74-106); SODIUM 141 mmol/L (136-145)
--- NOTE | 2018-03-06 08:08 | PN ---
Teaching Attending Note Name of Resident: Edgard Rivers ATTENDING PHYSICIAN STATEMENT I saw and evaluated the patient. I reviewed the resident's note and discussed the case with the resident. I agree with the resident's findings and plan as documented. SUBJECTIVE: Patient continues to have difficulty breathing almas.on exertion, decreased exercise capacity.. OBJECTIVE: Vital Signs Temperature 97.6 F 03/06/18 06:00 Pulse Rate 52 L 03/06/18 06:00 Respiratory Rate 20 03/06/18 06:00 Blood Pressure 178/63 H 03/06/18 06:00 O2 Sat by Pulse Oximetry (%) 96 03/05/18 21:00 GENERAL: The patient is awake, alert, and fully oriented, in no acute distress. HEAD: Normal with no signs of trauma. EYES: PERRL, extraocular movements intact, sclera anicteric, conjunctiva clear. ENT: Oropharynx mildly erythematous, without exudates, moist mucous membranes. NECK: Trachea midline, full range of motion, supple without lymphadenopathy LUNGS: Poor inspiratory effort and decreased air entery b/l. HEART: Irregular rate and rhythm, S1, S2. Holosystolic 3/6 murmur with radiation to b/l carotids ABDOMEN: Soft, nontender, nondistended, normoactive bowel sounds, no guarding, no rebound. EXTREMITIES: Right leg 1+ pitting edema, pulses are positive NEUROLOGICAL: Cranial nerves II through XII grossly intact. PSYCH: Normal mood, normal affect. WBC 11.4 K/mm3 (4.0-10.0) H 03/06/18 06:00 RBC 3.65 M/mm3 (3.60-5.2) 03/06/18 06:00 Hgb 9.9 GM/dL (10.7-15.3) L 03/06/18 06:00 Hct 31.2 % (32.4-45.2) L 03/06/18 06:00 MCV 85.3 fl (80-96) 03/06/18 06:00 MCHC 31.8 g/dl (32.0-36.0) L 03/06/18 06:00 RDW 16.1 % (11.6-15.6) H 03/06/18 06:00 Plt Count 237 K/MM3 (134-434) 03/06/18 06:00 MPV 9.4 fl (7.5-11.1) 03/06/18 06:00 CMP Sodium 141 mmol/L (136-145) 03/06/18 06:00 Potassium 4.0 mmol/L (3.5-5.1) 03/06/18 06:00 Chloride 97 mmol/L (98-107) L 03/06/18 06:00 Carbon Dioxide 37 mmol/L (21-32) H 03/06/18 06:00 Anion Gap 7 MMOL/L (8-16) L 03/06/18 06:00 BUN 42 mg/dL (7-18) H 03/06/18 06:00 Creatinine 1.2 mg/dL (0.55-1.3) 03/06/18 06:00 Creat Clearance w eGFR 42.90 (>60) 03/06/18 06:00 Random Glucose 192 mg/dL (74-106) H 03/06/18 06:00 Calcium 8.7 mg/dL (8.5-10.1) 03/06/18 06:00 Total Bilirubin 0.7 mg/dL (0.2-1) 03/05/18 06:00 AST 20 U/L (15-37) 03/05/18 06:00 ALT 32 U/L (13-61) 03/05/18 06:00 Alkaline Phosphatase 61 U/L (45-117) 03/05/18 06:00 Total Protein 6.5 g/dl (6.4-8.2) 03/05/18 06:00 Albumin 3.5 g/dl (3.4-5.0) 03/05/18 06:00 CARDIAC ENZYMES Creatine Kinase 34 IU/L (26-192) 02/26/18 06:00 Troponin I < 0.02 ng/ml (0.00-0.05) 02/26/18 18:00 Current Medications Generic Name Dose Route Start Last Admin Trade Name Freq PRN Reason Stop Dose Admin Acetaminophen 650 mg 02/27/18 12:03 03/01/18 23:33 Tylenol - PO 650 mg Q6H PRN Administration Fever Acetaminophen 650 mg 02/27/18 14:28 02/27/18 22:04 Tylenol - PO 650 mg Q6H PRN Administration PAIN Amlodipine Besylate 10 mg 02/26/18 10:30 03/05/18 10:26 Norvasc - PO 10 mg DAILY PK Administration Apixaban 5 mg 02/26/18 10:00 03/05/18 21:25 Eliquis - PO 5 mg BID PK Administration Atorvastatin Calcium 20 mg 02/27/18 22:00 03/05/18 21:25 Lipitor - PO 20 mg HS PK Administration Docusate Sodium 100 mg 02/27/18 18:00 03/05/18 10:26 Colace - PO 100 mg DAILY PK Administration Furosemide 40 mg 03/06/18 10:00 Lasix - PO BID@0600,1400 [facility] Guaifenesin/Codeine Phosphate 5 ml 03/05/18 10:14 03/05/18 10:38 Robitussin Ac - PO 5 ml TID PRN Administration COUGH Lisinopril 40 mg 02/26/18 10:30 03/05/18 10:26 Prinivil PO 40 mg DAILY PK Administration Nebivolol 20 mg 03/04/18 22:15 03/05/18 21:25 Bystolic - PO 20 mg BID PK Administration Fluticasone/Salmeterol 1 puff 02/27/18 11:45 03/05/18 21:26 Advair 100mcg/50mcg - IH 1 puff BID PK Administration Senna 1 tab 02/27/18 22:00 03/02/18 21:11 Senna - PO 1 tab HS PRN Administration CONSTIPATION Sertraline HCl 50 mg 02/26/18 10:45 03/05/18 10:26 Zoloft - PO 50 mg DAILY [facility] Administration Spironolactone 50 mg 03/05/18 12:58 Aldactone - PO DAILY [facility] Home Medications Medication Instructions Recorded Ferrous Sulfate 325 mg PO BID 12/29/16 Lisinopril [Zestril] 40 mg PO DAILY 12/29/16 Simvastatin 40 mg PO DAILY 12/29/16 Repaglinide [Prandin -] 1 mg PO TID 06/15/17 Albuterol 2.5/Ipratropium 0.5 1 amp NEB Q6H PRN amp 06/19/17 [Duoneb -] Omeprazole Magnesium [Prilosec Otc] 40 mg PO DAILY 09/06/17 Sertraline HCl [Zoloft -] 50 mg PO DAILY 09/09/17 Amlodipine Besylate [Norvasc -] 10 mg PO DAILY #30 tablet 09/12/17 Furosemide [Lasix -] 40 mg PO BID@0600,1400 tablet 09/12/17 Apixaban [Eliquis -] 5 mg PO BID #0 tablet 09/27/17 Labetalol HCl [Normodyne -] 200 mg PO BID tablet 09/27/17 Repaglinide 1 mg PO AC 02/25/18 Acetaminophen 500 mg PO TID PRN 02/27/18 Albuterol Sulfate [Proair 90 mcg IH Q4H PRN 02/27/18 Respiclick] Amox-Clav 875-125 mg Tablet 1 tab PO BID 02/27/18 Amoxicillin/Potassium Clav 1 each PO BID 02/27/18 [Amox-Clav 875-125 mg Tablet] Hydralazine HCl 25 mg PO BID 02/27/18 Hydralazine HCl 25 mg PO BID 02/27/18 09/10/2017 Echo: Normal LV size and fxn, LVEF 65%, mild cLVH, abnl LV compliance , mod TRINI, mild MR, TR, mod MG 25 mmHg 02/28/2018 Echo: Normal LV size and fxn LVEF 55-60%, restrictive physiology, mild LAE, mild MR, TR RVSP 40-40 mmHg, mod-severe CHARI 0.80 cm^2, MG 32 mmHg ASSESSMENT AND PLAN: Patient is a 82 y/o lady with h/o HTN, HLP. Diastolic heart failure, COPD who presented with SOB and was found to have acute CHF exacerbation # Acute on chronic diastolic CHF exacerbation with moderate to severe . On IV lasix 40 BID continue , further w/u such as heart cath as an outpatient. added Aldactone 50 qd continue #Persistent atrial fibrillation with [id number] score of 7 on Eliquis continue # Hypertensive urgency continue meds.Bystolic 20 bid, Lisinopril 40 qd, Amlodipine 10 qd # COPD on Prednisone continue # Hx of DM. A1c is now 5.5 . # severe : f/u as out pt for eval for TVAR DVT Px: Eliquis
--- NOTE | 2018-03-06 09:52 | PN ---
Progress Note, Physician History of Present Illness: Shortness of breath with exertion, decreased exercise capacity, bilateral LE swelling, orthopnea, chest tightness resolved with diuresis and BP control. - Current Medication List Current Medications: Active Medications Acetaminophen (Tylenol -) 650 mg PO Q6H PRN PRN Reason: Fever Last Admin: 03/01/18 23:33 Dose: 650 mg Acetaminophen (Tylenol -) 650 mg PO Q6H PRN PRN Reason: PAIN Last Admin: 02/27/18 22:04 Dose: 650 mg Amlodipine Besylate (Norvasc -) 10 mg PO DAILY [facility] Last Admin: 03/05/18 10:26 Dose: 10 mg Apixaban (Eliquis -) 5 mg PO BID [facility] Last Admin: 03/05/18 21:25 Dose: 5 mg Atorvastatin Calcium (Lipitor -) 20 mg PO HS [facility] Last Admin: 03/05/18 21:25 Dose: 20 mg Docusate Sodium (Colace -) 100 mg PO DAILY [facility] Last Admin: 03/05/18 10:26 Dose: 100 mg Furosemide (Lasix -) 40 mg PO BID@0600,1400 [facility] Guaifenesin/Codeine Phosphate (Robitussin Ac -) 5 ml PO TID PRN PRN Reason: COUGH Last Admin: 03/05/18 10:38 Dose: 5 ml Lisinopril (Prinivil) 40 mg PO DAILY [facility] Last Admin: 03/05/18 10:26 Dose: 40 mg Nebivolol (Bystolic -) 20 mg PO BID [facility] Last Admin: 03/05/18 21:25 Dose: 20 mg Fluticasone/Salmeterol (Advair 100mcg/50mcg -) 1 puff IH BID [facility] Last Admin: 03/05/18 21:26 Dose: 1 puff Senna (Senna -) 1 tab PO HS PRN PRN Reason: CONSTIPATION Last Admin: 03/02/18 21:11 Dose: 1 tab Sertraline HCl (Zoloft -) 50 mg PO DAILY [facility] Last Admin: 03/05/18 10:26 Dose: 50 mg Spironolactone (Aldactone -) 50 mg PO DAILY [facility] - Objective Vital Signs: Vital Signs Temperature 98.4 F 03/06/18 08:39 Pulse Rate 54 L 03/06/18 08:39 Respiratory Rate 20 03/06/18 08:39 Blood Pressure 180/71 H 03/06/18 08:39 O2 Sat by Pulse Oximetry (%) 96 03/06/18 08:39 Constitutional: Yes: No Distress, Calm Neck: Yes: Supple Cardiovascular: Yes: Regular Rate and Rhythm, Murmur (2/6 SM) Respiratory: Yes: Regular, Diminished, On Nasal O2 Gastrointestinal: Yes: Normal Bowel Sounds, Soft Edema: No Labs: CBC, BMP 03/06/18 06:00 03/06/18 06:00 INR, PTT INR 1.66 (0.83-1.09) H 02/26/18 06:00 - ....Imaging EKG: Report Reviewed (Tele: Rate-controlled afib) Problem List - Problems (1) Acute on chronic diastolic (congestive) heart failure Code(s): I50.33 - ACUTE ON CHRONIC DIASTOLIC (CONGESTIVE) HEART FAILURE (2) [id number] kidney injury Code(s): N17.9 - ACUTE KIDNEY FAILURE, UNSPECIFIED; N18.9 - CHRONIC KIDNEY DISEASE, UNSPECIFIED Qualifiers: Acute renal failure type: unspecified Chronic kidney disease stage: stage 2 (mild) Qualified Code(s): N17.9 - Acute kidney failure, unspecified; N18.2 - Chronic kidney disease, stage 2 (mild) (3) Anemia Code(s): D64.9 - ANEMIA, UNSPECIFIED Qualifiers: Anemia type: unspecified type Qualified Code(s): D64.9 - Anemia, unspecified (4) Dyspnea Code(s): R06.00 - DYSPNEA, UNSPECIFIED Qualifiers: Dyspnea type: dyspnea on exertion Qualified Code(s): R06.09 - Other forms of dyspnea (5) HTN (hypertension) Code(s): I10 - ESSENTIAL (PRIMARY) HYPERTENSION Qualifiers: Hypertension type: essential hypertension Qualified Code(s): I10 - Essential (primary) hypertension (6) Aortic valve stenosis Code(s): I35.0 - NONRHEUMATIC AORTIC (VALVE) STENOSIS Qualifiers: Cardiac valve disease etiology: nonrheumatic Qualified Code(s): I35.0 - Nonrheumatic aortic (valve) stenosis (7) Atrial fibrillation Code(s): I48.91 - UNSPECIFIED ATRIAL FIBRILLATION Qualifiers: Atrial fibrillation type: persistent Qualified Code(s): I48.1 - Persistent atrial fibrillation (8) COPD (chronic obstructive pulmonary disease) Code(s): J44.9 - CHRONIC OBSTRUCTIVE PULMONARY DISEASE, UNSPECIFIED Qualifiers: COPD type: unspecified COPD Qualified Code(s): J44.9 - Chronic obstructive pulmonary disease, unspecified (9) Diabetes mellitus Code(s): E11.9 - TYPE 2 DIABETES MELLITUS WITHOUT COMPLICATIONS Qualifiers: Diabetes mellitus type: type 2 Diabetes mellitus rodent exterminator insulin use: without rodent exterminator use Diabetes mellitus complication status: without complication Qualified Code(s): E11.9 - Type 2 diabetes mellitus without complications (10) Hypercholesterolemia Code(s): E78.00 - PURE HYPERCHOLESTEROLEMIA, UNSPECIFIED Assessment/Plan 09/10/2017 Echo: Normal LV size and fxn, LVEF 65%, mild cLVH, abnl LV compliance , mod TRINI, mild MR, TR, mod MG 25 mmHg 02/28/2018 Echo: Normal LV size and fxn LVEF 55-60%, restrictive physiology, mild LAE, mild MR, TR RVSP 40-40 mmHg, mod-severe CHARI 0.80 cm^2, MG 32 mmHg 1. Acute on chronic LV diastolic failure with moderate-severe improving 2. COPD 3. Persistent atrial fibrillation with [id number] score of 7 on Eliquis 4. Type 2 diabetes mellitus 5. Hypertensive urgency 6. Hypercholesterolemia 7. Acute on chronic kidney disease 8. Anemia 9. Degenerative joint disease post right THR PLAN: 1. Resume oral diuresis and Aldactone 50 qd with monitor diuretic response, renal fxn and electrolytes 2. Ruled out for NV, repeat echo to reassess ventricular and valve fxn in 6 months to document progression and R&LHc 3. Continue Bystolic 20 bid, Lisinopril 40 qd, Eliquis 5 bid, Lipitor 20 qhs, and Amlodipine 10 qd 4. BD, O2 as needed, oral steroid course 5. Consider proceeding with R&LHC for further evaluation of severity (as outpatient) and possible intervention, TAVR if appropriate
[2018-03-06] MEDS: SPIRONOLACTONE 25 MG TABLET (FP) PO SCH (09:56)
[2018-03-06] MEDS: SERTRALINE HCL 50 MG TABLET (FP) PO SCH (09:56)
[2018-03-06] MEDS: DOCUSATE SODIUM 100 MG CAPSULE (FP) PO SCH (09:56)
[2018-03-06] MEDS: amLODIPine BESYLATE 10 MG TABLET (FP) PO SCH (09:56)
[2018-03-06] MEDS: APIXABAN 5 MG TABLET PO SCH ×2 (09:56→21:28)
[2018-03-06] MEDS: NEBIVOLOL 10 MG TABLET (FP) PO SCH ×2 (09:56→21:28)
[2018-03-06] MEDS: FUROSEMIDE 40 MG TABLET (FP) PO SCH ×2 (09:56→13:22)
[2018-03-06] MEDS: LISINOPRIL 20 MG TABLET (FP) PO SCH (09:56)
[2018-03-06] MEDS: FLUTICASONE/SALMETEROL 100 MCG/50 MCG DISKUS IH SCH ×2 (09:58→21:28)
--- NOTE | 2018-03-06 12:38 | PN ---
Progress Note (short form) - Note Progress Note: PULMONARY States breathing is better but not at baseline. Less cough. Vital Signs Period Temp Pulse Resp BP Sys/Mo Pulse Ox Last 24 Hr 97.6 F-98.4 F 52-65 16-20 130-180/53-72 96-96 Gen: NAD at rest Heart: irregular, +systolic murmur Lung: bibasilar rales Abd: soft, nontender Ext: no edema CBC, BMP 03/06/18 06:00 03/06/18 06:00 Active Medications Acetaminophen (Tylenol -) 650 mg PO Q6H PRN PRN Reason: Fever Last Admin: 03/01/18 23:33 Dose: 650 mg Acetaminophen (Tylenol -) 650 mg PO Q6H PRN PRN Reason: PAIN Last Admin: 02/27/18 22:04 Dose: 650 mg Amlodipine Besylate (Norvasc -) 10 mg PO DAILY [facility] Last Admin: 03/06/18 09:56 Dose: 10 mg Apixaban (Eliquis -) 5 mg PO BID [facility] Last Admin: 03/06/18 09:56 Dose: 5 mg Atorvastatin Calcium (Lipitor -) 20 mg PO HS [facility] Last Admin: 03/05/18 21:25 Dose: 20 mg Docusate Sodium (Colace -) 100 mg PO DAILY [facility] Last Admin: 03/06/18 09:56 Dose: 100 mg Furosemide (Lasix -) 40 mg PO BID@0600,1400 [facility] Last Admin: 03/06/18 09:56 Dose: 40 mg Guaifenesin/Codeine Phosphate (Robitussin Ac -) 5 ml PO TID PRN PRN Reason: COUGH Last Admin: 03/05/18 10:38 Dose: 5 ml Lisinopril (Prinivil) 40 mg PO DAILY [facility] Last Admin: 03/06/18 09:56 Dose: 40 mg Nebivolol (Bystolic -) 20 mg PO BID [facility] Last Admin: 03/06/18 09:56 Dose: 20 mg Fluticasone/Salmeterol (Advair 100mcg/50mcg -) 1 puff IH BID [facility] Last Admin: 03/06/18 09:58 Dose: 1 puff Senna (Senna -) 1 tab PO HS PRN PRN Reason: CONSTIPATION Last Admin: 03/02/18 21:11 Dose: 1 tab Sertraline HCl (Zoloft -) 50 mg PO DAILY [facility] Last Admin: 03/06/18 09:56 Dose: 50 mg Spironolactone (Aldactone -) 50 mg PO DAILY [facility] Last Admin: 03/06/18 09:56 Dose: 50 mg A/P Acute on Chronic Diastolic Heart Failure Aortic Stenosis COPD Atrial Fibrillation HTN DM Hypercholesterolemia Anemia - continue lasix, aldactone - monitor urine output, creatinine - daily weights - off steroids - inhaled bronchodilators - O2 to keep Spo2 >90% - DVT prophylaxis
--- NOTE | 2018-03-06 16:40 | PN ---
Physical Exam: SUBJECTIVE: Patient seen and examined at bedside this morning. She still admits shortness of breath, and cough exacerbated with deep inspiration. Denies fevers , chills, shortness of breath, chest pain, palpitations, abdominal pain, nausea , vomiting, diarrhea. OBJECTIVE: Vital Signs Period Temp Pulse Resp BP Sys/Mo Pulse Ox Last 24 Hr 97.6 F-98.4 F 49-65 18-20 136-180/55-72 86-96 GENERAL: The patient is awake, alert, and fully oriented, in no acute distress. HEAD: Normal with no signs of trauma. EYES: PERRL, extraocular movements intact, sclera anicteric, conjunctiva clear. ENT: Oropharynx mildly erythematous, without exudates, moist mucous membranes. NECK: Trachea midline, full range of motion, supple without lymphadenopathy LUNGS: Poor inspiratory effort and air entery b/l. Faint wheezes, and crackles at lung lower lobes b/l. No accessory muscle use noted. Cough exacerbated and reproduced with deep breathing upon exam. HEART: Irregular rate and rhythm, S1, S2. Holosystolic 3/6 murmur with radiation to b/l carotids appreciated. ABDOMEN: Soft, nontender, nondistended, normoactive bowel sounds, no guarding, no rebound, no hepatosplenomegaly. EXTREMITIES: 2+ radial and dorsalis pedis pulses b/l. Warm. Right leg 1+ pitting edema, painful, erythematous compared to left. Right foot with bruise at base of first toe, tender to palpation at dorsum and ventral aspect of foot. Left anterior proximal thigh GENITAL: Crandall catheter without erythema or discharge at insertion site. NEUROLOGICAL: Cranial nerves II through XII grossly intact. Strength 3/5 b/l upper extremities limited by pain from arthritis. Strength 3/5 b/l lower extremities limited to pain and swelling. PSYCH: Normal mood, normal affect. Laboratory Results - last 24 hr 03/06/18 03/06/18 06:00 06:00 WBC 11.4 H RBC 3.65 Hgb 9.9 L Hct 31.2 L MCV 85.3 MCH 27.1 MCHC 31.8 L RDW 16.1 H Plt Count 237 MPV 9.4 Sodium 141 Potassium 4.0 Chloride 97 L Carbon Dioxide 37 H Anion Gap 7 L BUN 42 H Creatinine 1.2 Creat Clearance w eGFR 42.90 Random Glucose 192 H Calcium 8.7 Active Medications Generic Name Dose Route Start Last Admin Trade Name Freq PRN Reason Stop Dose Admin Acetaminophen 650 mg 02/27/18 12:03 03/01/18 23:33 Tylenol - PO 650 mg Q6H PRN Administration Fever Acetaminophen 650 mg 02/27/18 14:28 02/27/18 22:04 Tylenol - PO 650 mg Q6H PRN Administration PAIN Amlodipine Besylate 10 mg 02/26/18 10:30 03/06/18 09:56 Norvasc - PO 10 mg DAILY PK Administration Apixaban 5 mg 02/26/18 10:00 03/06/18 09:56 Eliquis - PO 5 mg BID PK Administration Atorvastatin Calcium 20 mg 02/27/18 22:00 03/05/18 21:25 Lipitor - PO 20 mg HS PK Administration Docusate Sodium 100 mg 02/27/18 18:00 03/06/18 09:56 Colace - PO 100 mg DAILY PK Administration Furosemide 40 mg 03/06/18 10:00 03/06/18 13:22 Lasix - PO 40 mg BID@0600,1400 PK Administration Guaifenesin/Codeine Phosphate 5 ml 03/05/18 10:14 03/05/18 10:38 Robitussin Ac - PO 5 ml TID PRN Administration COUGH Lisinopril 40 mg 02/26/18 10:30 03/06/18 09:56 Prinivil PO 40 mg DAILY PK Administration Nebivolol 20 mg 03/04/18 22:15 03/06/18 09:56 Bystolic - PO 20 mg BID PK Administration Fluticasone/Salmeterol 1 puff 02/27/18 11:45 03/06/18 09:58 Advair 100mcg/50mcg - IH 1 puff BID PK Administration Senna 1 tab 02/27/18 22:00 03/02/18 21:11 Senna - PO 1 tab HS PRN Administration CONSTIPATION Sertraline HCl 50 mg 02/26/18 10:45 03/06/18 09:56 Zoloft - PO 50 mg DAILY PK Administration Spironolactone 50 mg 03/05/18 12:58 03/06/18 09:56 Aldactone - PO 50 mg DAILY PK Administration ASSESSMENT/PLAN: Patient is an 82 year old female with history of asthma, COPD, Afib (on Elequis ) DM, HTN, HLD, arthritis presents with shortness of breath for the past 3 days prior to admission Shortness of breath -Likely secondary to CHF exacerbation. Air entry improving b/l. -Cardiac ECHO shows LV systolic function is normal, EF 55-60%. RV normal in size , function. RV systolic pressure elevated at 30-40mmHg. -Cardiology consult (Dr. Stewart) appreciated. -Pulmonary consult (Dr. Vásquez) appreciated. -Lasix 40mg IV BID -Aldactone 50mg PO daily increased with cardiology recommendation -Duonebs QID, and Q4H PRN -Advair 1 puff BID -Prednisone taper completed -Monitor intake, output, daily weights -Guaifenesin AC 5mg PO TID PRN for cough -Incentive spirometer to prevent atelectasis as patient unable to take deep breaths. Right lower abdominal pain Likely muscle strain. Pain is improving. -Abdominal ultrasound shows no evidence of hematoma. Right lower extremity pain and swelling -Pain improving. -Doppler lower extremities- No evidence of DVT b/l lower extremities. -Xray right foot shows no fracture. Genital Cyst -Completed 10 days/ 10 day course Augmentin 875-125mg Afib -Anticoagulation with Eliquis 5mg PO BID HTN -Labetalol D/C -> switched, and increased to Bystolic 20mg BID -Amlodipine 10mg daily -Lisinopril 40mg daily HLD -Lipitor 20mg PO QHS Anxiety, depression -Sertaline 50mg daily History of diabetes -A1c is 5.5% -Patient will follow up outpatient with primary care physician concerning reinstating any diabetes medications FEN -No IV fluids -Follow CMP -Sodium restricted diet Prophylaxis -On Eliquis for Afib Disposition -Continue care in medical surgical floor Visit type - Emergency Visit Emergency Visit: No - New Patient This patient is new to me today: No - Critical Care Critical Care patient: No - Discharge Referral Referred to [facility] Med [facility] No
[2018-03-06] MEDS ORDERED: PT OWN MED DRAWER 7, Y5N ONE (21:26)
[2018-03-06] MEDS: ATORVASTATIN CA 20 MG TABLET (FP) PO SCH (21:28)
[2018-03-07] MEDS: FUROSEMIDE 40 MG TABLET (FP) PO SCH ×2 (05:17→13:10)
[2018-03-07 07:11] LABS: HEMATOCRIT 29.5 % (32.4-45.2); HEMOGLOBIN 9.6 GM/dL (10.7-15.3); MCH 27.7 pg (25.7-33.7); MCHC 32.4 g/dl (32.0-36.0); MEAN CELL VOLUME 85.2 fl (80-96); MEAN PLT VOLUME 9.5 fl (7.5-11.1); PLATELET COUNT 219 K/MM3 (134-434); RBC 3.46 M/mm3 (3.60-5.2); RDW 15.9 % (11.6-15.6)
[2018-03-07 07:41] LABS: ANION GAP 7 MMOL/L (8-16); BLOOD UREA NITROGEN 40 mg/dL (7-18); CALCIUM 8.6 mg/dL (8.5-10.1); CHLORIDE 98 mmol/L (98-107); CO2 34 mmol/L (21-32); CREATININE 1.1 mg/dL (0.55-1.3); GLUCOSE,RANDOM 180 mg/dL (74-106); MAGNESIUM 2.1 mg/dL (1.8-2.4); PHOSPHOROUS 3.5 mg/dL (2.5-4.9); POTASSIUM 4.6 mmol/L (3.5-5.1); SODIUM 139 mmol/L (136-145)
[2018-03-07] MEDS ORDERED: PT OWN MED DRAWER 7, Y5N ONE (09:43)
[2018-03-07] MEDS: LISINOPRIL 20 MG TABLET (FP) PO SCH (09:50)
[2018-03-07] MEDS: APIXABAN 5 MG TABLET PO SCH ×2 (09:50→21:56)
[2018-03-07] MEDS: amLODIPine BESYLATE 10 MG TABLET (FP) PO SCH (09:50)
[2018-03-07] MEDS: NEBIVOLOL 10 MG TABLET (FP) PO SCH ×2 (09:50→21:57)
[2018-03-07] MEDS: DOCUSATE SODIUM 100 MG CAPSULE (FP) PO SCH (09:50)
[2018-03-07] MEDS: SPIRONOLACTONE 25 MG TABLET (FP) PO SCH (09:51)
[2018-03-07] MEDS: SERTRALINE HCL 50 MG TABLET (FP) PO SCH (09:51)
[2018-03-07] MEDS: FLUTICASONE/SALMETEROL 100 MCG/50 MCG DISKUS IH SCH ×2 (09:53→21:57)
--- NOTE | 2018-03-07 10:21 | PN ---
Progress Note, Physician History of Present Illness: Shortness of breath with exertion, decreased exercise capacity, bilateral LE swelling, orthopnea, chest tightness resolved with diuresis and BP control. - Current Medication List Current Medications: Active Medications Acetaminophen (Tylenol -) 650 mg PO Q6H PRN PRN Reason: Fever Last Admin: 03/01/18 23:33 Dose: 650 mg Acetaminophen (Tylenol -) 650 mg PO Q6H PRN PRN Reason: PAIN Last Admin: 02/27/18 22:04 Dose: 650 mg Amlodipine Besylate (Norvasc -) 10 mg PO DAILY [facility] Last Admin: 03/07/18 09:50 Dose: 10 mg Apixaban (Eliquis -) 5 mg PO BID [facility] Last Admin: 03/07/18 09:50 Dose: 5 mg Atorvastatin Calcium (Lipitor -) 20 mg PO HS [facility] Last Admin: 03/06/18 21:28 Dose: 20 mg Docusate Sodium (Colace -) 100 mg PO DAILY [facility] Last Admin: 03/07/18 09:50 Dose: 100 mg Furosemide (Lasix -) 40 mg PO BID@0600,1400 [facility] Last Admin: 03/07/18 05:17 Dose: 40 mg Guaifenesin/Codeine Phosphate (Robitussin Ac -) 5 ml PO TID PRN PRN Reason: COUGH Last Admin: 03/05/18 10:38 Dose: 5 ml Lisinopril (Prinivil) 40 mg PO DAILY [facility] Last Admin: 03/07/18 09:50 Dose: 40 mg Nebivolol (Bystolic -) 20 mg PO BID [facility] Last Admin: 03/07/18 09:50 Dose: 20 mg Fluticasone/Salmeterol (Advair 100mcg/50mcg -) 1 puff IH BID [facility] Last Admin: 03/07/18 09:53 Dose: 1 puff Senna (Senna -) 1 tab PO HS PRN PRN Reason: CONSTIPATION Last Admin: 03/02/18 21:11 Dose: 1 tab Sertraline HCl (Zoloft -) 50 mg PO DAILY [facility] Last Admin: 03/07/18 09:51 Dose: 50 mg Spironolactone (Aldactone -) 50 mg PO DAILY [facility] Last Admin: 03/07/18 09:51 Dose: 50 mg - Objective Vital Signs: Vital Signs Temperature 98.6 F 03/07/18 08:48 Pulse Rate 65 03/07/18 08:48 Respiratory Rate 20 03/07/18 08:48 Blood Pressure 153/57 L 03/07/18 08:48 O2 Sat by Pulse Oximetry (%) 95 03/07/18 09:57 Constitutional: Yes: No Distress, Calm Neck: Yes: Supple Cardiovascular: Yes: Pulse Irregular, Murmur (2/6 SM) Respiratory: Yes: Regular, Diminished, On Nasal O2 Gastrointestinal: Yes: Normal Bowel Sounds, Soft Edema: No Labs: CBC, BMP 03/07/18 06:00 03/07/18 06:00 INR, PTT INR 1.66 (0.83-1.09) H 02/26/18 06:00 - ....Imaging EKG: Report Reviewed (Tele: Rate-controlled afib) Problem List - Problems (1) Acute on chronic diastolic (congestive) heart failure Code(s): I50.33 - ACUTE ON CHRONIC DIASTOLIC (CONGESTIVE) HEART FAILURE (2) [id number] kidney injury Code(s): N17.9 - ACUTE KIDNEY FAILURE, UNSPECIFIED; N18.9 - CHRONIC KIDNEY DISEASE, UNSPECIFIED Qualifiers: Acute renal failure type: unspecified Chronic kidney disease stage: stage 2 (mild) Qualified Code(s): N17.9 - Acute kidney failure, unspecified; N18.2 - Chronic kidney disease, stage 2 (mild) (3) Anemia Code(s): D64.9 - ANEMIA, UNSPECIFIED Qualifiers: Anemia type: unspecified type Qualified Code(s): D64.9 - Anemia, unspecified (4) Dyspnea Code(s): R06.00 - DYSPNEA, UNSPECIFIED Qualifiers: Dyspnea type: dyspnea on exertion Qualified Code(s): R06.09 - Other forms of dyspnea (5) HTN (hypertension) Code(s): I10 - ESSENTIAL (PRIMARY) HYPERTENSION Qualifiers: Hypertension type: essential hypertension Qualified Code(s): I10 - Essential (primary) hypertension (6) Aortic valve stenosis Code(s): I35.0 - NONRHEUMATIC AORTIC (VALVE) STENOSIS Qualifiers: Cardiac valve disease etiology: nonrheumatic Qualified Code(s): I35.0 - Nonrheumatic aortic (valve) stenosis (7) Atrial fibrillation Code(s): I48.91 - UNSPECIFIED ATRIAL FIBRILLATION Qualifiers: Atrial fibrillation type: persistent Qualified Code(s): I48.1 - Persistent atrial fibrillation (8) COPD (chronic obstructive pulmonary disease) Code(s): J44.9 - CHRONIC OBSTRUCTIVE PULMONARY DISEASE, UNSPECIFIED Qualifiers: COPD type: unspecified COPD Qualified Code(s): J44.9 - Chronic obstructive pulmonary disease, unspecified (9) Diabetes mellitus Code(s): E11.9 - TYPE 2 DIABETES MELLITUS WITHOUT COMPLICATIONS Qualifiers: Diabetes mellitus type: type 2 Diabetes mellitus halfway insulin use: without halfway use Diabetes mellitus complication status: without complication Qualified Code(s): E11.9 - Type 2 diabetes mellitus without complications (10) Hypercholesterolemia Code(s): E78.00 - PURE HYPERCHOLESTEROLEMIA, UNSPECIFIED Assessment/Plan 09/10/2017 Echo: Normal LV size and fxn, LVEF 65%, mild cLVH, abnl LV compliance , mod TRINI, mild MR, TR, mod MG 25 mmHg 02/28/2018 Echo: Normal LV size and fxn LVEF 55-60%, restrictive physiology, mild LAE, mild MR, TR RVSP 40-40 mmHg, mod-severe CHARI 0.80 cm^2, MG 32 mmHg 1. Acute on chronic LV diastolic failure with moderate-severe improving 2. COPD 3. Persistent atrial fibrillation with [id number] score of 7 on Eliquis 4. Type 2 diabetes mellitus 5. Hypertensive urgency, BP not at goal 6. Hypercholesterolemia 7. Acute on chronic kidney disease 8. Anemia 9. Degenerative joint disease post right THR PLAN: 1. Lasix 40 bid and Aldactone 50 qd with monitor diuretic response, renal fxn and electrolytes 2. Ruled out for DC, repeat echo to reassess ventricular and valve fxn in 6 months to document progression and R&LHc 3. Continue Bystolic 20 bid, Lisinopril 40 qd, Eliquis 5 bid, Lipitor 20 qhs, and Amlodipine 10 qd 4. BD, O2 as needed, oral steroid course 5. Consider proceeding with R&LHC for further evaluation of severity (as outpatient) and possible intervention, TAVR if appropriate 6. Ambulate, d/c planning
--- NOTE | 2018-03-07 12:25 | PN ---
Progress Note, Physician History of Present Illness: pulmonary oob-chair,comfortable,-resp distress - Current Medication List Current Medications: Active Medications Acetaminophen (Tylenol -) 650 mg PO Q6H PRN PRN Reason: Fever Last Admin: 03/01/18 23:33 Dose: 650 mg Acetaminophen (Tylenol -) 650 mg PO Q6H PRN PRN Reason: PAIN Last Admin: 02/27/18 22:04 Dose: 650 mg Amlodipine Besylate (Norvasc -) 10 mg PO DAILY [facility] Last Admin: 03/07/18 09:50 Dose: 10 mg Apixaban (Eliquis -) 5 mg PO BID [facility] Last Admin: 03/07/18 09:50 Dose: 5 mg Atorvastatin Calcium (Lipitor -) 20 mg PO HS [facility] Last Admin: 03/06/18 21:28 Dose: 20 mg Docusate Sodium (Colace -) 100 mg PO DAILY [facility] Last Admin: 03/07/18 09:50 Dose: 100 mg Furosemide (Lasix -) 40 mg PO BID@0600,1400 [facility] Last Admin: 03/07/18 05:17 Dose: 40 mg Guaifenesin/Codeine Phosphate (Robitussin Ac -) 5 ml PO TID PRN PRN Reason: COUGH Last Admin: 03/05/18 10:38 Dose: 5 ml Lisinopril (Prinivil) 40 mg PO DAILY [facility] Last Admin: 03/07/18 09:50 Dose: 40 mg Nebivolol (Bystolic -) 20 mg PO BID [facility] Last Admin: 03/07/18 09:50 Dose: 20 mg Fluticasone/Salmeterol (Advair 100mcg/50mcg -) 1 puff IH BID [facility] Last Admin: 03/07/18 09:53 Dose: 1 puff Senna (Senna -) 1 tab PO HS PRN PRN Reason: CONSTIPATION Last Admin: 03/02/18 21:11 Dose: 1 tab Sertraline HCl (Zoloft -) 50 mg PO DAILY [facility] Last Admin: 03/07/18 09:51 Dose: 50 mg Spironolactone (Aldactone -) 50 mg PO DAILY [facility] Last Admin: 03/07/18 09:51 Dose: 50 mg - Objective Vital Signs: Vital Signs Temperature 98.6 F 03/07/18 08:48 Pulse Rate 65 03/07/18 08:48 Respiratory Rate 20 03/07/18 08:48 Blood Pressure 153/57 L 03/07/18 08:48 O2 Sat by Pulse Oximetry (%) 95 03/07/18 09:57 Constitutional: Yes: Well Nourished, Calm Eyes: Yes: WNL HENT: Yes: WNL Neck: Yes: WNL Cardiovascular: Yes: Regular Rate and Rhythm, S1, S2 Respiratory: Yes: Rales (few bibasailar rales) Gastrointestinal: Yes: Normal Bowel Sounds, Soft Extremities: Yes: WNL Edema: No Labs: CBC, BMP 03/07/18 06:00 03/07/18 06:00 INR, PTT INR 1.66 (0.83-1.09) H 02/26/18 06:00 Problem List - Problems (1) CHF exacerbation Code(s): I50.9 - HEART FAILURE, UNSPECIFIED (2) Acute on chronic diastolic (congestive) heart failure Code(s): I50.33 - ACUTE ON CHRONIC DIASTOLIC (CONGESTIVE) HEART FAILURE (3) HTN (hypertension) Code(s): I10 - ESSENTIAL (PRIMARY) HYPERTENSION Qualifiers: Hypertension type: essential hypertension Qualified Code(s): I10 - Essential (primary) hypertension (4) Shortness of breath Code(s): R06.02 - SHORTNESS OF BREATH (5) Aortic valve stenosis Code(s): I35.0 - NONRHEUMATIC AORTIC (VALVE) STENOSIS Qualifiers: Cardiac valve disease etiology: nonrheumatic Qualified Code(s): I35.0 - Nonrheumatic aortic (valve) stenosis (6) Atrial fibrillation Code(s): I48.91 - UNSPECIFIED ATRIAL FIBRILLATION Qualifiers: Atrial fibrillation type: persistent Qualified Code(s): I48.1 - Persistent atrial fibrillation (7) COPD (chronic obstructive pulmonary disease) Code(s): J44.9 - CHRONIC OBSTRUCTIVE PULMONARY DISEASE, UNSPECIFIED Qualifiers: COPD type: unspecified COPD Qualified Code(s): J44.9 - Chronic obstructive pulmonary disease, unspecified (8) Diabetes mellitus Code(s): E11.9 - TYPE 2 DIABETES MELLITUS WITHOUT COMPLICATIONS Qualifiers: Diabetes mellitus type: type 2 Diabetes mellitus intermediate card tender insulin use: without intermediate card tender use Diabetes mellitus complication status: without complication Qualified Code(s): E11.9 - Type 2 diabetes mellitus without complications Assessment/Plan A/P Acute on Chronic Diastolic Heart Failure clinically improving Aortic Stenosis COPD Atrial Fibrillation HTN DM Hypercholesterolemia Anemia - lasix, aldactone - monitor urine output, creatinine - daily weights - inhaled bronchodilators - O2 to keep Spo2 >90% - DVT prophylaxis - Jordon PACHECO
[2018-03-07] MEDS: ACETAMINOPHEN 325 MG TABLET (FP) PO PRN (12:54)
--- NOTE | 2018-03-07 14:44 | PN ---
Physical Exam: SUBJECTIVE: Patient seen and examined at bedside this morning. No acute overnight events. She endorses some improvement of her shortness of breath, and cough. Denies fevers, chills, shortness of breath, chest pain, palpitations, abdominal pain, nausea, vomiting, diarrhea. OBJECTIVE: Vital Signs Period Temp Pulse Resp BP Sys/Mo Pulse Ox Last 24 Hr 98.0 F-98.6 F 50-65 20-20 128-155/50-81 92-95 GENERAL: The patient is awake, alert, and fully oriented, in no acute distress. HEAD: Normal with no signs of trauma. EYES: PERRL, extraocular movements intact, sclera anicteric, conjunctiva clear. ENT: Oropharynx mildly erythematous, without exudates, moist mucous membranes. NECK: Trachea midline, full range of motion, supple without lymphadenopathy LUNGS: Good inspiratory effort. Air entry better into left lung than right lung. Faint wheezes, and crackles at lung lower lobes b/l. No accessory muscle use noted. Cough exacerbated and reproduced with deep breathing upon exam. HEART: Irregular rate and rhythm, S1, S2. Holosystolic 3/6 murmur with radiation to b/l carotids appreciated. ABDOMEN: Soft, nontender, nondistended, normoactive bowel sounds, no guarding, no rebound, no hepatosplenomegaly. EXTREMITIES: 2+ radial and dorsalis pedis pulses b/l. Warm. Right leg 1+ pitting edema, painful, erythematous compared to left. Right foot with bruise at base of first toe, tender to palpation at dorsum and ventral aspect of foot. Left anterior proximal thigh GENITAL: Crandall catheter without erythema or discharge at insertion site. NEUROLOGICAL: Cranial nerves II through XII grossly intact. Strength 3/5 b/l upper extremities limited by pain from arthritis. Strength 3/5 b/l lower extremities limited to pain and swelling. PSYCH: Normal mood, normal affect. Laboratory Results - last 24 hr 03/07/18 03/07/18 06:00 06:00 WBC 11.0 H RBC 3.46 L Hgb 9.6 L Hct 29.5 L MCV 85.2 MCH 27.7 MCHC 32.4 RDW 15.9 H Plt Count 219 MPV 9.5 Sodium 139 Potassium 4.6 Chloride 98 Carbon Dioxide 34 H Anion Gap 7 L BUN 40 H Creatinine 1.1 Creat Clearance w eGFR 47.43 Random Glucose 180 H Calcium 8.6 Phosphorus 3.5 Magnesium 2.1 Active Medications Generic Name Dose Route Start Last Admin Trade Name Freq PRN Reason Stop Dose Admin Acetaminophen 650 mg 02/27/18 12:03 03/07/18 12:54 Tylenol - PO 650 mg Q6H PRN Administration Fever Acetaminophen 650 mg 02/27/18 14:28 02/27/18 22:04 Tylenol - PO 650 mg Q6H PRN Administration PAIN Amlodipine Besylate 10 mg 02/26/18 10:30 03/07/18 09:50 Norvasc - PO 10 mg DAILY PK Administration Apixaban 5 mg 02/26/18 10:00 03/07/18 09:50 Eliquis - PO 5 mg BID PK Administration Atorvastatin Calcium 20 mg 02/27/18 22:00 03/06/18 21:28 Lipitor - PO 20 mg HS PK Administration Docusate Sodium 100 mg 02/27/18 18:00 03/07/18 09:50 Colace - PO 100 mg DAILY PK Administration Furosemide 40 mg 03/06/18 10:00 03/07/18 13:10 Lasix - PO 40 mg BID@0600,1400 PK Administration Guaifenesin/Codeine Phosphate 5 ml 03/05/18 10:14 03/05/18 10:38 Robitussin Ac - PO 5 ml TID PRN Administration COUGH Lisinopril 40 mg 02/26/18 10:30 03/07/18 09:50 Prinivil PO 40 mg DAILY PK Administration Nebivolol 20 mg 03/04/18 22:15 03/07/18 09:50 Bystolic - PO 20 mg BID PK Administration Fluticasone/Salmeterol 1 puff 02/27/18 11:45 03/07/18 09:53 Advair 100mcg/50mcg - IH 1 puff BID PK Administration Senna 1 tab 02/27/18 22:00 03/02/18 21:11 Senna - PO 1 tab HS PRN Administration CONSTIPATION Sertraline HCl 50 mg 02/26/18 10:45 03/07/18 09:51 Zoloft - PO 50 mg DAILY PK Administration Spironolactone 50 mg 03/05/18 12:58 03/07/18 09:51 Aldactone - PO 50 mg DAILY PK Administration ASSESSMENT/PLAN: Patient is an 82 year old female with history of asthma, COPD, Afib (on Elequis ) DM, HTN, HLD, arthritis presents with shortness of breath for the past 3 days prior to admission Shortness of breath -Likely secondary to CHF exacerbation. Air entry improving b/l. -Cardiac ECHO shows LV systolic function is normal, EF 55-60%. RV normal in size , function. RV systolic pressure elevated at 30-40mmHg. -Cardiology consult (Dr. Stewart) appreciated. -Pulmonary consult (Dr. Vásquez) appreciated. -Lasix 40mg IV BID -Aldactone 50mg PO daily increased with cardiology recommendation. Will follow Potassium daily. -Duonebs QID, and Q4H PRN -Advair 1 puff BID -Prednisone taper completed -Monitor intake, output, daily weights -Guaifenesin AC 5mg PO TID PRN for cough -Incentive spirometer to prevent atelectasis as patient unable to take deep breaths. Right lower abdominal pain Likely muscle strain. Pain is improving. -Abdominal ultrasound shows no evidence of hematoma. Right lower extremity pain and swelling -Pain improving. -Doppler lower extremities- No evidence of DVT b/l lower extremities. -Xray right foot shows no fracture. Genital Cyst -Completed 10 days/ 10 day course Augmentin 875-125mg Afib -Anticoagulation with Eliquis 5mg PO BID HTN -Labetalol switched to Bystolic 20mg BID with cardiology recommendation -Amlodipine 10mg daily -Lisinopril 40mg daily HLD -Lipitor 20mg PO QHS Anxiety, depression -Sertaline 50mg daily History of diabetes -A1c is 5.5% -Patient will follow up outpatient with primary care physician concerning reinstating any diabetes medications FEN -No IV fluids -Follow CMP -Sodium restricted diet Prophylaxis -On Eliquis 5mg BID for Afib Disposition -Continue care in medical surgical floor Visit type - Emergency Visit Emergency Visit: Yes ED Registration Date: 02/25/18 Care time: The patient presented to the Emergency Department on the above date and was hospitalized for further evaluation of their emergent condition. - New Patient This patient is new to me today: No - Critical Care Critical Care patient: No - Discharge Referral Referred to [facility] Med [facility].C[facility] No
[2018-03-07] MEDS: ATORVASTATIN CA 20 MG TABLET (FP) PO SCH (21:57)
--- NOTE | 2018-03-07 22:33 | PN ---
Teaching Attending Note Name of Resident: Edgard Rivers ATTENDING PHYSICIAN STATEMENT I saw and evaluated the patient. I reviewed the resident's note and discussed the case with the resident. I agree with the resident's findings and plan as documented. SUBJECTIVE: Patient is comfortable with no acute distress, feeling better today. OBJECTIVE: Vital Signs Temperature 98.0 F 03/07/18 21:07 Pulse Rate 51 L 03/07/18 21:07 Respiratory Rate 20 03/07/18 21:07 Blood Pressure 143/59 L 03/07/18 21:07 O2 Sat by Pulse Oximetry (%) 95 03/07/18 21:00 GENERAL: The patient is awake, alert, and fully oriented, in no acute distress. HEAD: Normal with no signs of trauma. EYES: PERRL, extraocular movements intact, sclera anicteric, conjunctiva clear. ENT: Oropharynx mildly erythematous, without exudates, moist mucous membranes. NECK: Trachea midline, full range of motion, supple LUNGS: better air entry BL today HEART: Irregular rate and rhythm, S1, S2. Holosystolic 3/6 murmur with radiation to b/l carotids ABDOMEN: Soft, nontender, nondistended, normoactive bowel sounds, no guarding, no rebound. EXTREMITIES: Right leg 1+ pitting edema, pulses are positive NEUROLOGICAL: Cranial nerves II through XII grossly intact. PSYCH: Normal mood, normal affect. CBCD WBC 11.0 K/mm3 (4.0-10.0) H 03/07/18 06:00 RBC 3.46 M/mm3 (3.60-5.2) L 03/07/18 06:00 Hgb 9.6 GM/dL (10.7-15.3) L 03/07/18 06:00 Hct 29.5 % (32.4-45.2) L 03/07/18 06:00 MCV 85.2 fl (80-96) 03/07/18 06:00 MCHC 32.4 g/dl (32.0-36.0) 03/07/18 06:00 RDW 15.9 % (11.6-15.6) H 03/07/18 06:00 Plt Count 219 K/MM3 (134-434) 03/07/18 06:00 MPV 9.5 fl (7.5-11.1) 03/07/18 06:00 CMP Sodium 139 mmol/L (136-145) 03/07/18 06:00 Potassium 4.6 mmol/L (3.5-5.1) 03/07/18 06:00 Chloride 98 mmol/L (98-107) 03/07/18 06:00 Carbon Dioxide 34 mmol/L (21-32) H 03/07/18 06:00 Anion Gap 7 MMOL/L (8-16) L 03/07/18 06:00 BUN 40 mg/dL (7-18) H 03/07/18 06:00 Creatinine 1.1 mg/dL (0.55-1.3) 03/07/18 06:00 Creat Clearance w eGFR 47.43 (>60) 03/07/18 06:00 Random Glucose 180 mg/dL (74-106) H 03/07/18 06:00 Calcium 8.6 mg/dL (8.5-10.1) 03/07/18 06:00 Total Bilirubin 0.7 mg/dL (0.2-1) 03/05/18 06:00 AST 20 U/L (15-37) 03/05/18 06:00 ALT 32 U/L (13-61) 03/05/18 06:00 Alkaline Phosphatase 61 U/L (45-117) 03/05/18 06:00 Total Protein 6.5 g/dl (6.4-8.2) 03/05/18 06:00 Albumin 3.5 g/dl (3.4-5.0) 03/05/18 06:00 CARDIAC ENZYMES Creatine Kinase 34 IU/L (26-192) 02/26/18 06:00 Troponin I < 0.02 ng/ml (0.00-0.05) 02/26/18 18:00 Current Medications Generic Name Dose Route Start Last Admin Trade Name Freq PRN Reason Stop Dose Admin Acetaminophen 650 mg 02/27/18 12:03 03/07/18 12:54 Tylenol - PO 650 mg Q6H PRN Administration Fever Acetaminophen 650 mg 02/27/18 14:28 02/27/18 22:04 Tylenol - PO 650 mg Q6H PRN Administration PAIN Amlodipine Besylate 10 mg 02/26/18 10:30 03/07/18 09:50 Norvasc - PO 10 mg DAILY PK Administration Apixaban 5 mg 02/26/18 10:00 03/07/18 21:56 Eliquis - PO 5 mg BID PK Administration Atorvastatin Calcium 20 mg 02/27/18 22:00 03/07/18 21:57 Lipitor - PO 20 mg HS PK Administration Docusate Sodium 100 mg 02/27/18 18:00 03/07/18 09:50 Colace - PO 100 mg DAILY PK Administration Furosemide 40 mg 03/06/18 10:00 03/07/18 13:10 Lasix - PO 40 mg BID@0600,1400 PK Administration Guaifenesin/Codeine Phosphate 5 ml 03/05/18 10:14 03/05/18 10:38 Robitussin Ac - PO 5 ml TID PRN Administration COUGH Lisinopril 40 mg 02/26/18 10:30 03/07/18 09:50 Prinivil PO 40 mg DAILY PK Administration Nebivolol 20 mg 03/04/18 22:15 03/07/18 21:57 Bystolic - PO 20 mg BID PK Administration Fluticasone/Salmeterol 1 puff 02/27/18 11:45 03/07/18 21:57 Advair 100mcg/50mcg - IH 1 puff BID PK Administration Senna 1 tab 02/27/18 22:00 03/02/18 21:11 Senna - PO 1 tab HS PRN Administration CONSTIPATION Sertraline HCl 50 mg 02/26/18 10:45 03/07/18 09:51 Zoloft - PO 50 mg DAILY PK Administration Spironolactone 50 mg 03/05/18 12:58 03/07/18 09:51 Aldactone - PO 50 mg DAILY PK Administration Home Medications Medication Instructions Recorded RX: Ferrous Sulfate 325 mg PO BID 12/29/16 RX: Lisinopril [Zestril] 40 mg PO DAILY 12/29/16 RX: Simvastatin 40 mg PO DAILY 12/29/16 RX: Repaglinide [Prandin -] 1 mg PO TID 06/15/17 RX: Albuterol 2.5/Ipratropium 0.5 1 amp NEB Q6H PRN amp 06/19/17 [Duoneb -] RX: Omeprazole Magnesium [Prilosec 40 mg PO DAILY 09/06/17 Otc] RX: Sertraline HCl [Zoloft -] 50 mg PO DAILY 09/09/17 RX: Amlodipine Besylate [Norvasc -] 10 mg PO DAILY #30 tablet 09/12/17 RX: Furosemide [Lasix -] 40 mg PO BID@0600,1400 tablet 09/12/17 RX: Apixaban [Eliquis -] 5 mg PO BID #0 tablet 09/27/17 RX: Labetalol HCl [Normodyne -] 200 mg PO BID tablet 09/27/17 RX: Repaglinide 1 mg PO AC 02/25/18 Albuterol Sulfate [Proair 90 mcg IH Q4H PRN 02/27/18 Respiclick] Amox-Clav 875-125 mg Tablet 1 tab PO BID 02/27/18 Amoxicillin/Potassium Clav 1 each PO BID 02/27/18 [Amox-Clav 875-125 mg Tablet] RX: Acetaminophen 500 mg PO TID PRN 02/27/18 RX: Hydralazine HCl 25 mg PO BID 02/27/18 RX: Hydralazine HCl 25 mg PO BID 02/27/18 09/10/2017 Echo: Normal LV size and fxn, LVEF 65%, mild cLVH, abnl LV compliance , mod TRINI, mild MR, TR, mod MG 25 mmHg 02/28/2018 Echo: Normal LV size and fxn LVEF 55-60%, restrictive physiology, mild LAE, mild MR, TR RVSP 40-40 mmHg, mod-severe CHARI 0.80 cm^2, MG 32 mmHg ASSESSMENT AND PLAN: Patient is a 82 y/o lady with h/o HTN, HLP. Diastolic heart failure, COPD who presented with SOB and was found to have acute CHF exacerbation # Acute on chronic diastolic CHF exacerbation with moderate to severe . On IV lasix 40 BID continue , further w/u heart cath as an outpatient. added Aldactone 50 qd continue #Persistent atrial fibrillation with [id number] score of 7 on Eliquis continue # HTN is better controlled today continue meds.Bystolic 20 bid, Lisinopril 40 qd ,Amlodipine 10 qd # COPD on Prednisone continue # Hx of DM. A1c is now 5.5 . # severe : f/u as out pt for eval for TVAR DVT Px: Eliquis Once stable discharge the patient home.
[2018-03-08] MEDS: FUROSEMIDE 40 MG TABLET (FP) PO SCH ×2 (05:39→13:23)
[2018-03-08 07:34] LABS: HEMATOCRIT 31.1 % (32.4-45.2); HEMOGLOBIN 10.2 GM/dL (10.7-15.3); MCHC 32.9 g/dl (32.0-36.0); MEAN CELL VOLUME 85.2 fl (80-96); MEAN PLT VOLUME 9.2 fl (7.5-11.1); PLATELET COUNT 218 K/MM3 (134-434); RBC 3.65 M/mm3 (3.60-5.2); RDW 15.6 % (11.6-15.6)
[2018-03-08 08:56] LABS: BLOOD UREA NITROGEN 39 mg/dL (7-18); GLUCOSE,RANDOM 203 mg/dL (74-106); POTASSIUM 4.7 mmol/L (3.5-5.1); SODIUM 139 mmol/L (136-145)
[2018-03-08 08:57] LABS: ANION GAP 7 MMOL/L (8-16); CALCIUM 8.9 mg/dL (8.5-10.1); CHLORIDE 97 mmol/L (98-107); CO2 35 mmol/L (21-32)
[2018-03-08] MEDS: NEBIVOLOL 10 MG TABLET (FP) PO SCH ×2 (11:01→22:44)
[2018-03-08] MEDS: FLUTICASONE/SALMETEROL 100 MCG/50 MCG DISKUS IH SCH ×2 (11:01→22:46)
[2018-03-08] MEDS: APIXABAN 5 MG TABLET PO SCH ×2 (11:02→22:46)
[2018-03-08] MEDS: LISINOPRIL 20 MG TABLET (FP) PO SCH (11:02)
[2018-03-08] MEDS: SPIRONOLACTONE 25 MG TABLET (FP) PO SCH (11:02)
[2018-03-08] MEDS: amLODIPine BESYLATE 10 MG TABLET (FP) PO SCH (11:02)
[2018-03-08] MEDS: DOCUSATE SODIUM 100 MG CAPSULE (FP) PO SCH (11:02)
[2018-03-08] MEDS: SERTRALINE HCL 50 MG TABLET (FP) PO SCH (11:02)
--- NOTE | 2018-03-08 12:02 | PN ---
Progress Note (short form) - Note Progress Note: Patient is an 82 year old female with history of asthma, COPD, Afib (on apixiban ) DM, HTN, HLD, sever aortic stenosis arthritis presents with shortness of breath for the past 3 days prior to admission HFpEF, vs Aortic stenosis vs COPD exacerbation -Likely secondary to CHF exacerbation. Air entry improving b/l. -Lasix 40mg IV BID -spironolactone 50mg PO daily increased with cardiology recommendation. - c/w nebulization treatment - c/w advir as per pulmonary - monitor Cr. and BUN to evaluate the dose of furosemide dose. -will switch the patient to 60mg PO twice a day instead of 40mg twice a day I.V. - Severe patient is symptomatic with minimal exertion. i have explained to her that the reason she might be out of breath can be due to the HFpEF vs vs COPD and she must follow up with her tourist home keeper to see what can be done with the severe Elevated RAP can be 2/2 to COPD - RV systolic pressure elevated at 30-40mmHg. - pulmonary and cardiology evaluation Right lower extremity pain and swelling -resolved - decrease the dose of furosemide to 60mg twice a day Genital Cyst -Completed 10 days/ 10 day course Augmentin 875-125mg Afib -Anticoagulation with Apixiban 5mg PO BID HTN -Labetalol switched to Bystolic 20mg BID with cardiology recommendation -Amlodipine 10mg daily -Lisinopril 40mg daily HLD -atrovastatin 20mg PO QHS Anxiety, depression -Sertaline 50mg daily FEN -No IV fluids -Follow CMP -Sodium restricted diet Prophylaxis -On apixiban 5mg BID for Afib Visit type - Emergency Visit Emergency Visit: No - New Patient This patient is new to me today: Yes Date on this admission: 03/08/18 - Critical Care Critical Care patient: No - Discharge Referral Referred to [facility] Med [facility].C[facility] No
--- NOTE | 2018-03-08 14:17 | PN ---
Progress Note (short form) - Note Progress Note: Overall feeling better. Breathing is improving. No CP. No acute events overnight. Intake & Output 03/05/18 03/06/18 03/07/18 03/08/18 23:59 23:59 23:59 23:59 Intake Total 1350 520 490 Output Total 2400 1600 2200 900 Balance -1050 -1080 -2200 -410 Weight 172 lb 6.4 oz 171 lb 171 lb 6.4 oz 163 lb 2 oz Last Vital Signs Temp Pulse Resp BP Pulse Ox 98.2 F 55 L 18 153/63 95 03/08/18 09:43 03/08/18 09:43 03/08/18 09:43 03/08/18 09:43 03/07/18 21:00 Active Medications Acetaminophen (Tylenol -) 650 mg PO Q6H PRN PRN Reason: Fever Last Admin: 03/07/18 12:54 Dose: 650 mg Acetaminophen (Tylenol -) 650 mg PO Q6H PRN PRN Reason: PAIN Last Admin: 02/27/18 22:04 Dose: 650 mg Amlodipine Besylate (Norvasc -) 10 mg PO DAILY [facility] Last Admin: 03/08/18 11:02 Dose: 10 mg Apixaban (Eliquis -) 5 mg PO BID [facility] Last Admin: 03/08/18 11:02 Dose: 5 mg Atorvastatin Calcium (Lipitor -) 20 mg PO HS [facility] Last Admin: 03/07/18 21:57 Dose: 20 mg Docusate Sodium (Colace -) 100 mg PO DAILY [facility] Last Admin: 03/08/18 11:02 Dose: 100 mg Furosemide (Lasix -) 40 mg PO BID@0600,1400 [facility] Last Admin: 03/08/18 13:23 Dose: 40 mg Guaifenesin/Codeine Phosphate (Robitussin Ac -) 5 ml PO TID PRN PRN Reason: COUGH Last Admin: 03/05/18 10:38 Dose: 5 ml Lisinopril (Prinivil) 40 mg PO DAILY [facility] Last Admin: 03/08/18 11:02 Dose: 40 mg Nebivolol (Bystolic -) 20 mg PO BID [facility] Last Admin: 03/08/18 11:01 Dose: 20 mg Fluticasone/Salmeterol (Advair 100mcg/50mcg -) 1 puff IH BID [facility] Last Admin: 03/08/18 11:01 Dose: 1 puff Senna (Senna -) 1 tab PO HS PRN PRN Reason: CONSTIPATION Last Admin: 03/02/18 21:11 Dose: 1 tab Sertraline HCl (Zoloft -) 50 mg PO DAILY [facility] Last Admin: 03/08/18 11:02 Dose: 50 mg Spironolactone (Aldactone -) 50 mg PO DAILY [facility] Last Admin: 03/08/18 11:02 Dose: 50 mg Constitutional: Yes: NAD Eyes: Yes: WNL HENT: Yes: WNL Neck: Yes: WNL Cardiovascular: Yes: Regular Rate and Rhythm, S1, S2 Respiratory: Yes: few bibasailar rhonchi Gastrointestinal: Yes: Normal Bowel Sounds, Soft Extremities: Yes: WNL Edema: No Labs: Laboratory Results - last 24 hr 03/08/18 03/08/18 06:00 06:00 WBC 10.0 RBC 3.65 Hgb 10.2 L Hct 31.1 L MCV 85.2 MCH 28.0 MCHC 32.9 RDW 15.6 Plt Count 218 MPV 9.2 Sodium 139 Potassium 4.7 Chloride 97 L Carbon Dioxide 35 H Anion Gap 7 L BUN 39 H Creatinine 1.0 Creat Clearance w eGFR 52.95 Random Glucose 203 H Calcium 8.9 Problem List - Problems (1) CHF exacerbation Code(s): I50.9 - HEART FAILURE, UNSPECIFIED (2) Acute on chronic diastolic (congestive) heart failure Code(s): I50.33 - ACUTE ON CHRONIC DIASTOLIC (CONGESTIVE) HEART FAILURE (3) HTN (hypertension) Code(s): I10 - ESSENTIAL (PRIMARY) HYPERTENSION Qualifiers: Hypertension type: essential hypertension Qualified Code(s): I10 - Essential (primary) hypertension (4) Shortness of breath Code(s): R06.02 - SHORTNESS OF BREATH (5) Aortic valve stenosis Code(s): I35.0 - NONRHEUMATIC AORTIC (VALVE) STENOSIS Qualifiers: Cardiac valve disease etiology: nonrheumatic Qualified Code(s): I35.0 - Nonrheumatic aortic (valve) stenosis (6) Atrial fibrillation Code(s): I48.91 - UNSPECIFIED ATRIAL FIBRILLATION Qualifiers: Atrial fibrillation type: persistent Qualified Code(s): I48.1 - Persistent atrial fibrillation (7) COPD (chronic obstructive pulmonary disease) Code(s): J44.9 - CHRONIC OBSTRUCTIVE PULMONARY DISEASE, UNSPECIFIED Qualifiers: COPD type: unspecified COPD Qualified Code(s): J44.9 - Chronic obstructive pulmonary disease, unspecified (8) Diabetes mellitus Code(s): E11.9 - TYPE 2 DIABETES MELLITUS WITHOUT COMPLICATIONS Qualifiers: Diabetes mellitus type: type 2 Diabetes mellitus fpc insulin use: without fpc use Diabetes mellitus complication status: without complication Qualified Code(s): E11.9 - Type 2 diabetes mellitus without complications Assessment/Plan Acute on Chronic Diastolic Heart Failure clinically improving Aortic Stenosis COPD Atrial Fibrillation HTN DM Hypercholesterolemia Anemia - lasix, aldactone - monitor urine output, creatinine - daily weights - inhaled bronchodilators - O2 to keep Spo2 >90% - DVT prophylaxis - Jordon Rosenbaum
[2018-03-08] MEDS ORDERED: PT OWN MED DRAWER 7, Y5N ONE (22:43)
[2018-03-08] MEDS: ATORVASTATIN CA 20 MG TABLET (FP) PO SCH (22:46)
[2018-03-08] MEDS: ACETAMINOPHEN 325 MG TABLET (FP) PO PRN (22:48)
[2018-03-09] MEDS: FUROSEMIDE 40 MG TABLET (FP) PO SCH ×2 (05:51→14:10)
--- NOTE | 2018-03-09 09:15 | PN ---
Progress Note (short form) - Note Progress Note: Patient is an 82 year old female with history of asthma, COPD, Afib (on apixiban ) DM, HTN, HLD, sever aortic stenosis arthritis presents with shortness of breath for the past 3 days prior to admission PE: AAOX3 s1 and s2 irregularrly irregular lungs good air entry bibasilar crackles abdomen soft non-tender no ext edema HFpEF, vs Aortic stenosis vs COPD exacerbation -Likely secondary to CHF exacerbation. Air entry improving b/l. -Lasix 40mg IV BID -spironolactone 50mg PO daily increased with cardiology recommendation. - c/w nebulization treatment - c/w advir as per pulmonary - monitor Cr. and BUN to evaluate the dose of furosemide dose. -will switch the patient to 60mg PO twice a day instead of 40mg twice a day I.V. - Severe patient is symptomatic with minimal exertion. i have explained to her that the reason she might be out of breath can be due to the HFpEF vs vs COPD and she must follow up with her bonding supervisor to see what can be done with the severe Elevated RAP can be 2/2 to COPD - RV systolic pressure elevated at 30-40mmHg. - pulmonary and cardiology evaluation Right lower extremity pain and swelling -resolved - decrease the dose of furosemide to 60mg twice a day Genital Cyst -Completed 10 days/ 10 day course Augmentin 875-125mg Afib -Anticoagulation with Apixiban 5mg PO BID HTN -Labetalol switched to Bystolic 20mg BID with cardiology recommendation -Amlodipine 10mg daily -Lisinopril 40mg daily HLD -atrovastatin 20mg PO QHS Anxiety, depression -Sertaline 50mg daily FEN -No IV fluids -Follow CMP -Sodium restricted diet Prophylaxis -On apixiban 5mg BID for Afib
[2018-03-09] MEDS ORDERED: PT OWN MED DRAWER 7, Y5N ONE (09:42)
[2018-03-09] MEDS: DOCUSATE SODIUM 100 MG CAPSULE (FP) PO SCH (09:47)
[2018-03-09] MEDS: LISINOPRIL 20 MG TABLET (FP) PO SCH (09:47)
[2018-03-09] MEDS: SPIRONOLACTONE 25 MG TABLET (FP) PO SCH (09:48)
[2018-03-09] MEDS: SERTRALINE HCL 50 MG TABLET (FP) PO SCH (09:48)
[2018-03-09] MEDS: APIXABAN 5 MG TABLET PO SCH ×2 (09:48→21:20)
[2018-03-09] MEDS: amLODIPine BESYLATE 10 MG TABLET (FP) PO SCH (09:49)
[2018-03-09] MEDS: ACETAMINOPHEN 325 MG TABLET (FP) PO PRN ×2 (09:50→16:24)
[2018-03-09] MEDS: FLUTICASONE/SALMETEROL 100 MCG/50 MCG DISKUS IH SCH ×2 (09:51→21:21)
[2018-03-09] MEDS: NEBIVOLOL 10 MG TABLET (FP) PO SCH ×2 (09:52→21:20)
[2018-03-09 11:07] LABS: BASO % 0.7 % (0-2.0); HEMATOCRIT 30.3 % (32.4-45.2); HEMOGLOBIN 9.9 GM/dL (10.7-15.3); LYMPH % 12.7 % (8-40); MCH 28.3 pg (25.7-33.7); MCHC 32.8 g/dl (32.0-36.0); MEAN CELL VOLUME 86.3 fl (80-96); MEAN PLT VOLUME 9.2 fl (7.5-11.1); MONO % 9.2 % (3.8-10.2); NEUT % 73.4 % (42.8-82.8); PLATELET COUNT 244 K/MM3 (134-434); RBC 3.52 M/mm3 (3.60-5.2); RDW 15.8 % (11.6-15.6); WHITE BLOOD COUNT 8.5 K/mm3 (4.0-10.0)
[2018-03-09 12:08] LABS: ALBUMIN 3.2 g/dl (3.4-5.0); ALK PHOS 65 U/L (45-117); ANION GAP 5 MMOL/L (8-16); BILIRUBIN,TOTAL 0.6 mg/dL (0.2-1); BLOOD UREA NITROGEN 41 mg/dL (7-18); CHLORIDE 96 mmol/L (98-107); CO2 38 mmol/L (21-32); CREATININE 1.2 mg/dL (0.55-1.3); GLUCOSE,RANDOM 232 mg/dL (74-106); MAGNESIUM 2.1 mg/dL (1.8-2.4); PHOSPHOROUS 4.1 mg/dL (2.5-4.9); POTASSIUM 4.7 mmol/L (3.5-5.1); SGOT/AST 12 U/L (15-37); SGPT/ALT 28 U/L (13-61); SODIUM 140 mmol/L (136-145)
--- NOTE | 2018-03-09 12:38 | PN ---
Progress Note (short form) - Note Progress Note: Overall feeling better. OOB to chair having lunch. Still with some GARCIA. No CP. No acute events overnight. Intake & Output 03/06/18 03/07/18 03/08/18 03/09/18 23:59 23:59 23:59 23:59 Intake Total 520 1165 360 Output Total 1600 2200 2700 750 Balance -1080 -2200 -1535 -390 Weight 171 lb 171 lb 6.4 oz 163 lb 2 oz 162 lb 2 oz Last Vital Signs Temp Pulse Resp BP Pulse Ox 97.6 F 49 L 18 140/65 97 03/09/18 10:00 03/09/18 10:00 03/09/18 10:00 03/09/18 10:00 03/09/18 09:00 Active Medications Acetaminophen (Tylenol -) 650 mg PO Q6H PRN PRN Reason: Fever Last Admin: 03/09/18 09:50 Dose: 650 mg Acetaminophen (Tylenol -) 650 mg PO Q6H PRN PRN Reason: PAIN Last Admin: 03/08/18 22:48 Dose: 650 mg Amlodipine Besylate (Norvasc -) 10 mg PO DAILY [facility] Last Admin: 03/09/18 09:49 Dose: 10 mg Apixaban (Eliquis -) 5 mg PO BID [facility] Last Admin: 03/09/18 09:48 Dose: 5 mg Atorvastatin Calcium (Lipitor -) 20 mg PO HS [facility] Last Admin: 03/08/18 22:46 Dose: 20 mg Docusate Sodium (Colace -) 100 mg PO DAILY [facility] Last Admin: 03/09/18 09:47 Dose: 100 mg Furosemide (Lasix -) 60 mg PO BID@0600,1400 [facility] Last Admin: 03/09/18 05:51 Dose: 60 mg Guaifenesin/Codeine Phosphate (Robitussin Ac -) 5 ml PO TID PRN PRN Reason: COUGH Last Admin: 03/05/18 10:38 Dose: 5 ml Lisinopril (Prinivil) 40 mg PO DAILY [facility] Last Admin: 03/09/18 09:47 Dose: 40 mg Nebivolol (Bystolic -) 20 mg PO BID [facility] Last Admin: 03/09/18 09:52 Dose: Not Given Fluticasone/Salmeterol (Advair 100mcg/50mcg -) 1 puff IH BID [facility] Last Admin: 03/09/18 09:51 Dose: 1 puff Senna (Senna -) 1 tab PO HS PRN PRN Reason: CONSTIPATION Last Admin: 03/02/18 21:11 Dose: 1 tab Sertraline HCl (Zoloft -) 50 mg PO DAILY [facility] Last Admin: 03/09/18 09:48 Dose: 50 mg Spironolactone (Aldactone -) 50 mg PO DAILY [facility] Last Admin: 03/09/18 09:48 Dose: 50 mg Constitutional: Yes: NAD Eyes: Yes: WNL HENT: Yes: WNL Neck: Yes: WNL Cardiovascular: Yes: Regular Rate and Rhythm, S1, S2 Respiratory: Yes: few bibasailar rhonchi Gastrointestinal: Yes: Normal Bowel Sounds, Soft Extremities: Yes: WNL Edema: No Labs: Laboratory Results - last 24 hr 03/09/18 03/09/18 10:44 10:44 WBC 8.5 RBC 3.52 L Hgb 9.9 L Hct 30.3 L MCV 86.3 MCH 28.3 MCHC 32.8 RDW 15.8 H Plt Count 244 MPV 9.2 Absolute Neuts (auto) 6.2 Neutrophils % 73.4 Lymphocytes % 12.7 Monocytes % 9.2 Eosinophils % 4.0 Basophils % 0.7 Nucleated RBC % 0 Sodium 140 Potassium 4.7 Chloride 96 L Carbon Dioxide 38 H Anion Gap 5 L BUN 41 H Creatinine 1.2 Creat Clearance w eGFR 42.90 Random Glucose 232 H Calcium 9.0 Phosphorus 4.1 Magnesium 2.1 Total Bilirubin 0.6 AST 12 L ALT 28 Alkaline Phosphatase 65 Total Protein 6.0 L Albumin 3.2 L Problem List - Problems (1) CHF exacerbation Code(s): I50.9 - HEART FAILURE, UNSPECIFIED (2) Acute on chronic diastolic (congestive) heart failure Code(s): I50.33 - ACUTE ON CHRONIC DIASTOLIC (CONGESTIVE) HEART FAILURE (3) HTN (hypertension) Code(s): I10 - ESSENTIAL (PRIMARY) HYPERTENSION Qualifiers: Hypertension type: essential hypertension Qualified Code(s): I10 - Essential (primary) hypertension (4) Shortness of breath Code(s): R06.02 - SHORTNESS OF BREATH (5) Aortic valve stenosis Code(s): I35.0 - NONRHEUMATIC AORTIC (VALVE) STENOSIS Qualifiers: Cardiac valve disease etiology: nonrheumatic Qualified Code(s): I35.0 - Nonrheumatic aortic (valve) stenosis (6) Atrial fibrillation Code(s): I48.91 - UNSPECIFIED ATRIAL FIBRILLATION Qualifiers: Atrial fibrillation type: persistent Qualified Code(s): I48.1 - Persistent atrial fibrillation (7) COPD (chronic obstructive pulmonary disease) Code(s): J44.9 - CHRONIC OBSTRUCTIVE PULMONARY DISEASE, UNSPECIFIED Qualifiers: COPD type: unspecified COPD Qualified Code(s): J44.9 - Chronic obstructive pulmonary disease, unspecified (8) Diabetes mellitus Code(s): E11.9 - TYPE 2 DIABETES MELLITUS WITHOUT COMPLICATIONS Qualifiers: Diabetes mellitus type: type 2 Diabetes mellitus terminal block assembler insulin use: without terminal block assembler use Diabetes mellitus complication status: without complication Qualified Code(s): E11.9 - Type 2 diabetes mellitus without complications Assessment/Plan Acute on Chronic Diastolic Heart Failure clinically improving Aortic Stenosis COPD Atrial Fibrillation HTN DM Hypercholesterolemia Anemia - lasix, aldactone - monitor urine output, creatinine - daily weights - inhaled bronchodilators - O2 to keep Spo2 >90% - DVT prophylaxis - Jordon Rosenbaum
--- NOTE | 2018-03-09 13:51 | PN ---
Progress Note, Physician History of Present Illness: Shortness of breath with exertion, decreased exercise capacity, bilateral LE swelling, orthopnea, chest tightness improved with diuresis and BP control. - Current Medication List Current Medications: Active Medications Acetaminophen (Tylenol -) 650 mg PO Q6H PRN PRN Reason: Fever Last Admin: 03/09/18 09:50 Dose: 650 mg Acetaminophen (Tylenol -) 650 mg PO Q6H PRN PRN Reason: PAIN Last Admin: 03/08/18 22:48 Dose: 650 mg Amlodipine Besylate (Norvasc -) 10 mg PO DAILY [facility] Last Admin: 03/09/18 09:49 Dose: 10 mg Apixaban (Eliquis -) 5 mg PO BID [facility] Last Admin: 03/09/18 09:48 Dose: 5 mg Atorvastatin Calcium (Lipitor -) 20 mg PO HS [facility] Last Admin: 03/08/18 22:46 Dose: 20 mg Docusate Sodium (Colace -) 100 mg PO DAILY [facility] Last Admin: 03/09/18 09:47 Dose: 100 mg Furosemide (Lasix -) 60 mg PO BID@0600,1400 [facility] Last Admin: 03/09/18 05:51 Dose: 60 mg Guaifenesin/Codeine Phosphate (Robitussin Ac -) 5 ml PO TID PRN PRN Reason: COUGH Last Admin: 03/05/18 10:38 Dose: 5 ml Lisinopril (Prinivil) 40 mg PO DAILY [facility] Last Admin: 03/09/18 09:47 Dose: 40 mg Nebivolol (Bystolic -) 20 mg PO BID [facility] Last Admin: 03/09/18 09:52 Dose: Not Given Fluticasone/Salmeterol (Advair 100mcg/50mcg -) 1 puff IH BID [facility] Last Admin: 03/09/18 09:51 Dose: 1 puff Senna (Senna -) 1 tab PO HS PRN PRN Reason: CONSTIPATION Last Admin: 03/02/18 21:11 Dose: 1 tab Sertraline HCl (Zoloft -) 50 mg PO DAILY [facility] Last Admin: 03/09/18 09:48 Dose: 50 mg Spironolactone (Aldactone -) 50 mg PO DAILY [facility] Last Admin: 03/09/18 09:48 Dose: 50 mg - Objective Vital Signs: Vital Signs Temperature 97.6 F 03/09/18 10:00 Pulse Rate 49 L 03/09/18 10:00 Respiratory Rate 18 03/09/18 10:00 Blood Pressure 140/65 03/09/18 10:00 O2 Sat by Pulse Oximetry (%) 97 03/09/18 09:00 Constitutional: Yes: No Distress, Calm Neck: Yes: Supple Cardiovascular: Yes: Bradycardia, Pulse Irregular, Murmur (2/6 SM) Respiratory: Yes: Regular, Diminished, On Nasal O2 Gastrointestinal: Yes: Normal Bowel Sounds, Soft Edema: No Labs: CBC, BMP 03/09/18 10:44 03/09/18 10:44 INR, PTT INR 1.66 (0.83-1.09) H 02/26/18 06:00 - ....Imaging EKG: Report Reviewed (Tele: Rate-controlled afib) Problem List - Problems (1) Acute on chronic diastolic (congestive) heart failure Code(s): I50.33 - ACUTE ON CHRONIC DIASTOLIC (CONGESTIVE) HEART FAILURE (2) [id number] kidney injury Code(s): N17.9 - ACUTE KIDNEY FAILURE, UNSPECIFIED; N18.9 - CHRONIC KIDNEY DISEASE, UNSPECIFIED Qualifiers: Acute renal failure type: unspecified Chronic kidney disease stage: stage 2 (mild) Qualified Code(s): N17.9 - Acute kidney failure, unspecified; N18.2 - Chronic kidney disease, stage 2 (mild) (3) Anemia Code(s): D64.9 - ANEMIA, UNSPECIFIED Qualifiers: Anemia type: unspecified type Qualified Code(s): D64.9 - Anemia, unspecified (4) Dyspnea Code(s): R06.00 - DYSPNEA, UNSPECIFIED Qualifiers: Dyspnea type: dyspnea on exertion Qualified Code(s): R06.09 - Other forms of dyspnea (5) HTN (hypertension) Code(s): I10 - ESSENTIAL (PRIMARY) HYPERTENSION Qualifiers: Hypertension type: essential hypertension Qualified Code(s): I10 - Essential (primary) hypertension (6) Aortic valve stenosis Code(s): I35.0 - NONRHEUMATIC AORTIC (VALVE) STENOSIS Qualifiers: Cardiac valve disease etiology: nonrheumatic Qualified Code(s): I35.0 - Nonrheumatic aortic (valve) stenosis (7) Atrial fibrillation Code(s): I48.91 - UNSPECIFIED ATRIAL FIBRILLATION Qualifiers: Atrial fibrillation type: persistent Qualified Code(s): I48.1 - Persistent atrial fibrillation (8) COPD (chronic obstructive pulmonary disease) Code(s): J44.9 - CHRONIC OBSTRUCTIVE PULMONARY DISEASE, UNSPECIFIED Qualifiers: COPD type: unspecified COPD Qualified Code(s): J44.9 - Chronic obstructive pulmonary disease, unspecified (9) Diabetes mellitus Code(s): E11.9 - TYPE 2 DIABETES MELLITUS WITHOUT COMPLICATIONS Qualifiers: Diabetes mellitus type: type 2 Diabetes mellitus emt intermediate insulin use: without retirement use Diabetes mellitus complication status: without complication Qualified Code(s): E11.9 - Type 2 diabetes mellitus without complications (10) Hypercholesterolemia Code(s): E78.00 - PURE HYPERCHOLESTEROLEMIA, UNSPECIFIED Assessment/Plan 09/10/2017 Echo: Normal LV size and fxn, LVEF 65%, mild cLVH, abnl LV compliance , mod TRINI, mild MR, TR, mod MG 25 mmHg 02/28/2018 Echo: Normal LV size and fxn LVEF 55-60%, restrictive physiology, mild LAE, mild MR, TR RVSP 40-40 mmHg, mod-severe CHARI 0.80 cm^2, MG 32 mmHg 1. Acute on chronic LV diastolic failure with moderate-severe improving 2. COPD 3. Persistent atrial fibrillation with [id number] score of 7 on Eliquis 4. Type 2 diabetes mellitus 5. Hypertensive urgency, BP not at goal 6. Hypercholesterolemia 7. Acute on chronic kidney disease 8. Anemia 9. Degenerative joint disease post right THR PLAN: 1. Lasix 60 bid and Aldactone 50 qd with monitor diuretic response, renal fxn and electrolytes 2. Ruled out for VT, repeat echo to reassess ventricular and valve fxn in 6 months to document progression and R&LHc 3. Continue Bystolic 20 bid, Lisinopril 40 qd, Eliquis 5 bid, Lipitor 20 qhs, and Amlodipine 10 qd 4. BD, O2 as needed, oral steroid course 5. Consider proceeding with R&LHC for further evaluation of severity (as outpatient) and possible intervention, TAVR if appropriate 6. Ambulate, d/c planning
[2018-03-09] MEDS: ATORVASTATIN CA 20 MG TABLET (FP) PO SCH (21:20)
[2018-03-10] MEDS: FUROSEMIDE 40 MG TABLET (FP) PO SCH ×2 (06:00→13:17)
[2018-03-10] MEDS ORDERED: PT OWN MED DRAWER 7, Y5N ONE ×4 (08:21→12:22)
[2018-03-10] MEDS: FLUTICASONE/SALMETEROL 100 MCG/50 MCG DISKUS IH SCH ×2 (09:28→22:01)
[2018-03-10] MEDS: APIXABAN 5 MG TABLET PO SCH ×2 (09:30→22:01)
[2018-03-10] MEDS: SPIRONOLACTONE 25 MG TABLET (FP) PO SCH (09:31)
[2018-03-10] MEDS: DOCUSATE SODIUM 100 MG CAPSULE (FP) PO SCH (09:31)
[2018-03-10] MEDS: SERTRALINE HCL 50 MG TABLET (FP) PO SCH (09:32)
[2018-03-10] MEDS: amLODIPine BESYLATE 10 MG TABLET (FP) PO SCH (09:32)
[2018-03-10] MEDS: LISINOPRIL 20 MG TABLET (FP) PO SCH (09:32)
[2018-03-10] MEDS: NEBIVOLOL 10 MG TABLET (FP) PO SCH ×2 (09:32→22:00)
--- NOTE | 2018-03-10 09:42 | PN ---
Progress Note, Physician History of Present Illness: Shortness of breath with exertion, decreased exercise capacity, bilateral LE swelling, orthopnea, chest tightness improved with diuresis and BP control. - Current Medication List Current Medications: Active Medications Acetaminophen (Tylenol -) 650 mg PO Q6H PRN PRN Reason: Fever Last Admin: 03/09/18 09:50 Dose: 650 mg Acetaminophen (Tylenol -) 650 mg PO Q6H PRN PRN Reason: PAIN Last Admin: 03/09/18 16:24 Dose: 650 mg Amlodipine Besylate (Norvasc -) 10 mg PO DAILY [facility] Last Admin: 03/10/18 09:32 Dose: 10 mg Apixaban (Eliquis -) 5 mg PO BID [facility] Last Admin: 03/10/18 09:30 Dose: 5 mg Atorvastatin Calcium (Lipitor -) 20 mg PO HS [facility] Last Admin: 03/09/18 21:20 Dose: 20 mg Docusate Sodium (Colace -) 100 mg PO DAILY [facility] Last Admin: 03/10/18 09:31 Dose: 100 mg Furosemide (Lasix -) 60 mg PO BID@0600,1400 [facility] Last Admin: 03/10/18 06:00 Dose: 60 mg Lisinopril (Prinivil) 40 mg PO DAILY [facility] Last Admin: 03/10/18 09:32 Dose: 40 mg Nebivolol (Bystolic -) 20 mg PO BID [facility] Last Admin: 03/10/18 09:32 Dose: 20 mg Fluticasone/Salmeterol (Advair 100mcg/50mcg -) 1 puff IH BID [facility] Last Admin: 03/10/18 09:28 Dose: 1 puff Senna (Senna -) 1 tab PO PRN PRN Reason: CONSTIPATION Last Admin: 03/02/18 21:11 Dose: 1 tab Sertraline HCl (Zoloft -) 50 mg PO DAILY [facility] Last Admin: 03/10/18 09:32 Dose: 50 mg Spironolactone (Aldactone -) 50 mg PO DAILY [facility] Last Admin: 03/10/18 09:31 Dose: 50 mg - Objective Vital Signs: Vital Signs Temperature 98.1 F 03/10/18 06:00 Pulse Rate 60 03/10/18 06:00 Respiratory Rate 18 03/10/18 06:00 Blood Pressure 147/57 L 03/10/18 06:00 O2 Sat by Pulse Oximetry (%) 97 03/09/18 21:00 Constitutional: Yes: No Distress, Calm Neck: Yes: Supple Cardiovascular: Yes: Pulse Irregular, Murmur (2/6 SM) Respiratory: Yes: Regular, Diminished, On Nasal O2 Gastrointestinal: Yes: Normal Bowel Sounds, Soft, Abdomen, Obese Edema: No Labs: CBC, BMP 03/09/18 10:44 03/09/18 10:44 INR, PTT INR 1.66 (0.83-1.09) H 02/26/18 06:00 - ....Imaging EKG: Report Reviewed (Tele: Rate-controlled afib) Problem List - Problems (1) Acute on chronic diastolic (congestive) heart failure Code(s): I50.33 - ACUTE ON CHRONIC DIASTOLIC (CONGESTIVE) HEART FAILURE (2) Pgnom-bp-[id number] kidney injury Code(s): N17.9 - ACUTE KIDNEY FAILURE, UNSPECIFIED; N18.9 - CHRONIC KIDNEY DISEASE, UNSPECIFIED Qualifiers: Acute renal failure type: unspecified Chronic kidney disease stage: stage 2 (mild) Qualified Code(s): N17.9 - Acute kidney failure, unspecified; N18.2 - Chronic kidney disease, stage 2 (mild) (3) Anemia Code(s): D64.9 - ANEMIA, UNSPECIFIED Qualifiers: Anemia type: unspecified type Qualified Code(s): D64.9 - Anemia, unspecified (4) Dyspnea Code(s): R06.00 - DYSPNEA, UNSPECIFIED Qualifiers: Dyspnea type: dyspnea on exertion Qualified Code(s): R06.09 - Other forms of dyspnea (5) HTN (hypertension) Code(s): I10 - ESSENTIAL (PRIMARY) HYPERTENSION Qualifiers: Hypertension type: essential hypertension Qualified Code(s): I10 - Essential (primary) hypertension (6) Aortic valve stenosis Code(s): I35.0 - NONRHEUMATIC AORTIC (VALVE) STENOSIS Qualifiers: Cardiac valve disease etiology: nonrheumatic Qualified Code(s): I35.0 - Nonrheumatic aortic (valve) stenosis (7) Atrial fibrillation Code(s): I48.91 - UNSPECIFIED ATRIAL FIBRILLATION Qualifiers: Atrial fibrillation type: persistent Qualified Code(s): I48.1 - Persistent atrial fibrillation (8) COPD (chronic obstructive pulmonary disease) Code(s): J44.9 - CHRONIC OBSTRUCTIVE PULMONARY DISEASE, UNSPECIFIED Qualifiers: COPD type: unspecified COPD Qualified Code(s): J44.9 - Chronic obstructive pulmonary disease, unspecified (9) Diabetes mellitus Code(s): E11.9 - TYPE 2 DIABETES MELLITUS WITHOUT COMPLICATIONS Qualifiers: Diabetes mellitus type: type 2 Diabetes mellitus ferry terminal agent insulin use: without senior living use Diabetes mellitus complication status: without complication Qualified Code(s): E11.9 - Type 2 diabetes mellitus without complications (10) Hypercholesterolemia Code(s): E78.00 - PURE HYPERCHOLESTEROLEMIA, UNSPECIFIED Assessment/Plan 09/10/2017 Echo: Normal LV size and fxn, LVEF 65%, mild cLVH, abnl LV compliance , mod TRINI, mild MR, TR, mod MG 25 mmHg 02/28/2018 Echo: Normal LV size and fxn LVEF 55-60%, restrictive physiology, mild LAE, mild MR, TR RVSP 40-40 mmHg, mod-severe CHARI 0.80 cm^2, MG 32 mmHg 1. Acute on chronic LV diastolic failure with moderate-severe improving 2. COPD 3. Persistent atrial fibrillation with [id number] score of 7 on Eliquis 4. Type 2 diabetes mellitus 5. Hypertensive urgency, BP not at goal 6. Hypercholesterolemia 7. Acute on chronic kidney disease 8. Anemia 9. Degenerative joint disease post right THR PLAN: 1. Lasix 60 bid and Aldactone 50 qd with monitor diuretic response, renal fxn and electrolytes 2. Ruled out for ID, repeat echo to reassess ventricular and valve fxn in 6 months to document progression and R&LHc 3. Continue Bystolic 20 bid, Lisinopril 40 qd, Eliquis 5 bid, Lipitor 20 qhs, and Amlodipine 10 qd 4. BD, O2 as needed, oral steroid course 5. Consider proceeding with R&LHC for further evaluation of severity (as outpatient) and possible intervention, TAVR if appropriate 6. Ambulate, d/c planning
[2018-03-10] MEDS ORDERED: INSULIN SLIDING SCALE (NOVOLOG) 1 VIAL SQ SCH (11:00)
[2018-03-10] MEDS ORDERED: acetaZOLAMIDE 250 MG TABLET PO ONE (11:15)
[2018-03-10] MEDS: INSULIN SLIDING SCALE (NOVOLOG) 1 VIAL SQ SCH ×3 (11:53→22:03)
--- NOTE | 2018-03-10 14:04 | PN ---
Progress Note (short form) - Note Progress Note: Still with some GARCIA. No CP. Overall improving. No acute events overnight. Intake & Output 03/07/18 03/08/18 03/09/18 03/10/18 23:59 23:59 23:59 23:59 Intake Total 1165 1430 200 Output Total 2200 2700 3050 750 Balance -2200 -1535 -1620 -550 Weight 171 lb 6.4 oz 163 lb 2 oz 162 lb 2 oz 160 lb 2 oz Last Vital Signs Temp Pulse Resp BP Pulse Ox 98 F 60 18 132/65 97 03/10/18 10:00 03/10/18 10:00 03/10/18 10:00 03/10/18 10:00 03/10/18 09:00 Active Medications Acetaminophen (Tylenol -) 650 mg PO Q6H PRN PRN Reason: Fever Last Admin: 03/09/18 09:50 Dose: 650 mg Acetaminophen (Tylenol -) 650 mg PO Q6H PRN PRN Reason: PAIN Last Admin: 03/09/18 16:24 Dose: 650 mg Amlodipine Besylate (Norvasc -) 10 mg PO DAILY [facility] Last Admin: 03/10/18 09:32 Dose: 10 mg Apixaban (Eliquis -) 5 mg PO BID [facility] Last Admin: 03/10/18 09:30 Dose: 5 mg Atorvastatin Calcium (Lipitor -) 20 mg PO HS [facility] Last Admin: 03/09/18 21:20 Dose: 20 mg Docusate Sodium (Colace -) 100 mg PO DAILY [facility] Last Admin: 03/10/18 09:31 Dose: 100 mg Furosemide (Lasix -) 60 mg PO BID@0600,1400 [facility] Last Admin: 03/10/18 13:17 Dose: 60 mg Insulin Aspart (Novolog Vial Sliding Scale -) 1 vial SQ ACHS [facility]; Protocol Last Admin: 03/10/18 11:53 Dose: 4 units Lisinopril (Prinivil) 40 mg PO DAILY [facility] Last Admin: 03/10/18 09:32 Dose: 40 mg Nebivolol (Bystolic -) 20 mg PO BID [facility] Last Admin: 03/10/18 09:32 Dose: 20 mg Fluticasone/Salmeterol (Advair 100mcg/50mcg -) 1 puff IH BID [facility] Last Admin: 03/10/18 09:28 Dose: 1 puff Senna (Senna -) 1 tab PO HS PRN PRN Reason: CONSTIPATION Last Admin: 03/02/18 21:11 Dose: 1 tab Sertraline HCl (Zoloft -) 50 mg PO DAILY [facility] Last Admin: 03/10/18 09:32 Dose: 50 mg Spironolactone (Aldactone -) 50 mg PO DAILY [facility] Last Admin: 03/10/18 09:31 Dose: 50 mg Constitutional: Yes: NAD Eyes: Yes: WNL HENT: Yes: WNL Neck: Yes: WNL Cardiovascular: Yes: Regular Rate and Rhythm, S1, S2 Respiratory: Yes: few bibasailar rhonchi Gastrointestinal: Yes: Normal Bowel Sounds, Soft Extremities: Yes: WNL Edema: No Labs: Laboratory Results - last 24 hr 03/10/18 11:51 POC Glucometer 213 Problem List - Problems (1) CHF exacerbation Code(s): I50.9 - HEART FAILURE, UNSPECIFIED (2) Acute on chronic diastolic (congestive) heart failure Code(s): I50.33 - ACUTE ON CHRONIC DIASTOLIC (CONGESTIVE) HEART FAILURE (3) HTN (hypertension) Code(s): I10 - ESSENTIAL (PRIMARY) HYPERTENSION Qualifiers: Hypertension type: essential hypertension Qualified Code(s): I10 - Essential (primary) hypertension (4) Shortness of breath Code(s): R06.02 - SHORTNESS OF BREATH (5) Aortic valve stenosis Code(s): I35.0 - NONRHEUMATIC AORTIC (VALVE) STENOSIS Qualifiers: Cardiac valve disease etiology: nonrheumatic Qualified Code(s): I35.0 - Nonrheumatic aortic (valve) stenosis (6) Atrial fibrillation Code(s): I48.91 - UNSPECIFIED ATRIAL FIBRILLATION Qualifiers: Atrial fibrillation type: persistent Qualified Code(s): I48.1 - Persistent atrial fibrillation (7) COPD (chronic obstructive pulmonary disease) Code(s): J44.9 - CHRONIC OBSTRUCTIVE PULMONARY DISEASE, UNSPECIFIED Qualifiers: COPD type: unspecified COPD Qualified Code(s): J44.9 - Chronic obstructive pulmonary disease, unspecified (8) Diabetes mellitus Code(s): E11.9 - TYPE 2 DIABETES MELLITUS WITHOUT COMPLICATIONS Qualifiers: Diabetes mellitus type: type 2 Diabetes mellitus correction insulin use: without correction use Diabetes mellitus complication status: without complication Qualified Code(s): E11.9 - Type 2 diabetes mellitus without complications Assessment/Plan Acute on Chronic Diastolic Heart Failure clinically improving Aortic Stenosis COPD Atrial Fibrillation HTN DM Hypercholesterolemia Anemia - Advair BID - lasix, aldactone - monitor urine output, creatinine - daily weights - inhaled bronchodilators - O2 to keep Spo2 >90% - DVT prophylaxis - Zeenatqudiana Rosenbaum
--- NOTE | 2018-03-10 17:38 | PN ---
Teaching Attending Note Name of Resident: Lyly Parson ATTENDING PHYSICIAN STATEMENT I saw and evaluated the patient. I reviewed the resident's note and discussed the case with the resident. I agree with the resident's findings and plan as documented. SUBJECTIVE: Seen and examined; no new complaints. States breathing is better, no new sx. OBJECTIVE: Labs reviewed, VSS Gen: AAOx3, NAD, resting in bed CV: Systolic murmur 4/6, no heaves, no b/l JVD with mildly positive HJR Pulm: Sym CW expansion, minimal crackles GI: Soft NT ND +BS Neuro: CN 2-12 grossly intact, moves all 4 limbs. Psych: Normal mood and affect, average insight. Appropriate behavior. ASSESSMENT AND PLAN: 1. Acute on chronic LV diastolic failure with moderate-severe improving 2. COPD 3. Persistent atrial fibrillation with [id number] score of 7 on Eliquis 4. Type 2 diabetes mellitus 5. Hypertensive urgency, BP not at goal 6. Hypercholesterolemia 7. Acute on chronic kidney disease 8. Anemia 9. Degenerative joint disease post right THR Overall, the plan today remains to change the patient to PO diuretics and continue to monitor fluid status, Is and Os, UOP. Will touch base with CV, as well. Continue current aldactone. Some contraction alkalosis seen so adding on a dose of acetazolamine. Outpatient TAVR workup to be done. No further medication adjustments to be made by primary service today. If stable will DC tomorrow AM. She had ~5L out in the past 3 days and is doing well off O2.
--- NOTE | 2018-03-10 17:56 | DS ---
Physical Exam: SUBJECTIVE: Patient seen and examined at bedside this morning. No acute overnight events. She endorses improvement of her shortness of breath, and cough. Denies fevers, chills, shortness of breath, chest pain, palpitations, abdominal pain, nausea, vomiting, diarrhea. OBJECTIVE: Vital Signs Period Temp Pulse Resp BP Sys/Mo Pulse Ox Last 24 Hr 97.5 F-98.2 F 42-60 16-19 122-151/52-65 97-97 PHYSICAL EXAM GENERAL: The patient is awake, alert, and fully oriented, in no acute distress. HEAD: Normal with no signs of trauma. EYES: PERRL, extraocular movements intact, sclera anicteric, conjunctiva clear. ENT: Oropharynx mildly erythematous, without exudates, moist mucous membranes. NECK: Trachea midline, full range of motion, supple without lymphadenopathy LUNGS: Good inspiratory effort. Air entry improved, equal b/l. Faint wheezes, auscultated at lung lower lobes b/l. No accessory muscle use noted. HEART: Irregular rate and rhythm, S1, S2. Holosystolic 3/6 murmur with radiation to b/l carotids appreciated. ABDOMEN: Soft, nontender, nondistended, normoactive bowel sounds, no guarding, no rebound, no hepatosplenomegaly. EXTREMITIES: 2+ radial and dorsalis pedis pulses b/l. Warm. NEUROLOGICAL: Cranial nerves II through XII grossly intact. Strength 3/5 b/l upper extremities limited by pain from arthritis. Strength 3/5 b/l lower extremities limited to pain from arthritis. PSYCH: Normal mood, normal affect. LABS Laboratory Results - last 24 hr 03/10/18 03/10/18 11:51 16:20 POC Glucometer 213 176 HOSPITAL COURSE: Date of Admission:02/25/18 Date of Discharge: 03/10/18 Patient is an 82 year old female with history of asthma, COPD, Afib (on Elequis ) DM, HTN, HLD, arthritis presents with shortness of breath for the past 3 days prior to admission. Chest xray showed congestive changes b/l lower lung lobes. Cardiac ECHO showed LV systolic function normal, EF 55-60%. RV normal in size, function. RV systolic pressure elevated at 30-40mmHg. Started on Lasix, aldactone, duonebs, advair, and prednisone taper. She had pain and swelling at right foot. Xray negative for fracture, and pain/ swelling improved during hospitalization. Labetalol was switched to bystolic with cardiology recommendation, and continued amlodipine and lisinopril. Patient's breathing improved, and she was discharged on lasix, aldactone, and bystolic, in addition to home medications. To follow up with receptionist secretary to discuss possible TAVR and cardiac catheterization, deer farmer, and primary care physician within 3- 5 days after discharge. Minutes to complete discharge: 37 <Edgard Rivers - Last Filed: 03/11/18 08:55> Physical Exam: SUBJECTIVE: Patient seen and examined OBJECTIVE: PHYSICAL EXAM GENERAL: The patient is awake, alert, and fully oriented, in no acute distress. HEAD: Normal with no signs of trauma. EYES: PERRL, extraocular movements intact, sclera anicteric, conjunctiva clear. ENT: Ears normal, nares patent, oropharynx clear without exudates, moist mucous membranes. NECK: Trachea midline, full range of motion, supple. LUNGS: Breath sounds equal, clear to auscultation bilaterally, no wheezes, no crackles, no accessory muscle use. HEART: Regular rate and rhythm, S1, S2 without murmur, rub or gallop. ABDOMEN: Soft, nontender, nondistended, normoactive bowel sounds, no guarding, no rebound, no hepatosplenomegaly, no masses. EXTREMITIES: 2+ pulses, warm, well-perfused, no edema. NEUROLOGICAL: Cranial nerves II through XII grossly intact. Normal speech, gait not observed. PSYCH: Normal mood, normal affect. SKIN: Warm, dry, normal turgor, no rashes or lesions noted. LABS HOSPITAL COURSE: Date of Admission:02/25/18 Date of Discharge: 03/13/18 Seen and examined by myself; please see my note for supplementary information <Sacha Perkins - Last Filed: 03/13/18 07:43> Discharge Summary Reason For Visit: ACUTE ON CHRONIC CHF Current Active Problems CHF exacerbation (Acute) - Home Medications Comprehensive Discharge Medication List: Ambulatory Orders Ferrous Sulfate 325 mg PO BID 12/29/16 Lisinopril [Zestril] 40 mg PO DAILY 12/29/16 Simvastatin 40 mg PO DAILY 12/29/16 Albuterol 2.5/Ipratropium 0.5 [Duoneb -] 1 amp NEB Q6H PRN amp 06/19/17 Omeprazole Magnesium [Prilosec Otc] 40 mg PO DAILY 09/06/17 Sertraline HCl [Zoloft -] 50 mg PO DAILY 09/09/17 Amlodipine Besylate [Norvasc -] 10 mg PO DAILY #30 tablet 09/12/17 Apixaban [Eliquis -] 5 mg PO BID #0 tablet 09/27/17 Repaglinide 1 mg PO AC 02/25/18 Albuterol Sulfate [Proair Respiclick] 90 mcg IH Q4H PRN 02/27/18 Hydralazine HCl 25 mg PO BID 02/27/18 Furosemide [Lasix] 60 mg PO BID 15 Days #31 tablet 03/10/18 Nebivolol [Bystolic -] 20 mg PO BID 15 Days #30 tab 03/10/18 Spironolactone [Aldactone -] 50 mg PO DAILY 15 Days #15 tablet 03/10/18 <Edgard Rivers - Last Filed: 03/11/18 08:55> - Home Medications Comprehensive Discharge Medication List: Ambulatory Orders Ferrous Sulfate 325 mg PO BID 12/29/16 Lisinopril [Zestril] 40 mg PO DAILY 12/29/16 Simvastatin 40 mg PO DAILY 12/29/16 Albuterol 2.5/Ipratropium 0.5 [Duoneb -] 1 amp NEB Q6H PRN amp 06/19/17 Omeprazole Magnesium [Prilosec Otc] 40 mg PO DAILY 09/06/17 Sertraline HCl [Zoloft -] 50 mg PO DAILY 09/09/17 Amlodipine Besylate [Norvasc -] 10 mg PO DAILY #30 tablet 09/12/17 Apixaban [Eliquis -] 5 mg PO BID #0 tablet 09/27/17 Repaglinide 1 mg PO AC 02/25/18 Albuterol Sulfate [Proair Respiclick] 90 mcg IH Q4H PRN 02/27/18 Hydralazine HCl 25 mg PO BID 02/27/18 Nebivolol [Bystolic -] 20 mg PO BID 15 Days #30 tab 03/10/18 Spironolactone [Aldactone -] 50 mg PO DAILY 15 Days #15 tablet 10/15/18 Furosemide [Lasix] 60 mg PO BID 15 Days #90 tablet 03/11/18 Nebivolol HCl [Bystolic] 20 mg PO BID 15 Days #30 tablet 03/11/18 Spironolactone [Aldactone] 50 mg PO DAILY 15 Days #15 tablet 03/11/18 <AshtynasaSacha - Last Filed: 03/13/18 07:43> Condition: Improved - Instructions Diet, Activity, Other Instructions: You were admitted for shortness of breath, and treated with oxygen, steroids, and medication to help remove fluid from your lungs. Continue taking your home medications as directed. In addition, you will start taking Lasix 60mg every 12 hours. You will also start taking Aldactone 50mg daily. You will STOP taking Labetalol. Your Labetalol has been switched to Bystolic 20mg every 12 hours. Follow up with your primary care physician within the next 3-5 days. Get magnesium and CMP done in 2 days. Follow up with deer farmer Dr. Vásquez within the next 3-5 days as well. Follow up with the receptionist secretary within the next week after discharge. You may need a new heart valve (aortic valve), and your receptionist secretary will discuss further with you at the appointment. Return to the nearest emergency department if you experience fevers, chills, shortness of breath, chest pain, palpitations, vomiting, diarrhea, worsening of symptoms. Referrals: Arvind Ravi MD [Primary Care Provider] - 03/20/18 Damaso Stephen MD [Staff Physician] - 03/13/18 Gus Cline MD [Staff Physician] - 03/13/18 Disposition: HOME This patient is new to me today: No Emergency Visit: Yes ED Registration Date: 02/25/18 Care time: The patient presented to the Emergency Department on the above date and was hospitalized for further evaluation of their emergent condition. Critical Care patient: No - Discharge Referral Referred to [facility] Med P.C.: No Physician Referral: Arvind Pompa MD ([facility]) <Edgard Rivers - Last Filed: 03/11/18 08:55>
[2018-03-10] MEDS: ATORVASTATIN CA 20 MG TABLET (FP) PO SCH (22:00)
[2018-03-11] MEDS: FUROSEMIDE 40 MG TABLET (FP) PO SCH ×2 (05:41→13:20)
[2018-03-11] MEDS ORDERED: INSULIN (NOVOLOG) ASPART 100 UNITS/ML 10ML VIAL ONE (07:03)
[2018-03-11] MEDS: INSULIN SLIDING SCALE (NOVOLOG) 1 VIAL SQ SCH ×2 (07:04→11:48)
[2018-03-11] MEDS ORDERED: PT OWN MED DRAWER 7, Y5N ONE (07:55)
[2018-03-11 08:37] LABS: ANION GAP 5 MMOL/L (8-16); BLOOD UREA NITROGEN 47 mg/dL (7-18); CALCIUM 8.4 mg/dL (8.5-10.1); CHLORIDE 98 mmol/L (98-107); CO2 35 mmol/L (21-32); CREATININE 1.4 mg/dL (0.55-1.3); GLUCOSE,RANDOM 158 mg/dL (74-106); POTASSIUM 4.4 mmol/L (3.5-5.1); SODIUM 138 mmol/L (136-145)
[2018-03-11] MEDS: DOCUSATE SODIUM 100 MG CAPSULE (FP) PO SCH (10:08)
[2018-03-11] MEDS: APIXABAN 5 MG TABLET PO SCH (10:08)
[2018-03-11] MEDS: SERTRALINE HCL 50 MG TABLET (FP) PO SCH (10:09)
--- NOTE | 2018-03-11 10:15 | PN ---
Progress Note, Physician Chief Complaint: Events noted Feels better History of Present Illness: Patient was seen and examined. Awake and alert. Chart was reviewed Denies chest pain, less SOB and no palpitations - Current Medication List Current Medications: Active Medications Acetaminophen (Tylenol -) 650 mg PO Q6H PRN PRN Reason: Fever Last Admin: 03/09/18 09:50 Dose: 650 mg Acetaminophen (Tylenol -) 650 mg PO Q6H PRN PRN Reason: PAIN Last Admin: 03/09/18 16:24 Dose: 650 mg Amlodipine Besylate (Norvasc -) 10 mg PO DAILY [facility] Last Admin: 03/10/18 09:32 Dose: 10 mg Apixaban (Eliquis -) 5 mg PO BID [facility] Last Admin: 03/11/18 10:08 Dose: 5 mg Atorvastatin Calcium (Lipitor -) 20 mg PO HS [facility] Last Admin: 03/10/18 22:00 Dose: 20 mg Docusate Sodium (Colace -) 100 mg PO DAILY [facility] Last Admin: 03/11/18 10:08 Dose: 100 mg Furosemide (Lasix -) 60 mg PO BID@0600,1400 [facility] Last Admin: 03/11/18 05:41 Dose: 60 mg Insulin Aspart (Novolog Vial Sliding Scale -) 1 vial SQ ACHS [facility]; Protocol Last Admin: 03/11/18 07:04 Dose: 2 units Lisinopril (Prinivil) 40 mg PO DAILY [facility] Last Admin: 03/10/18 09:32 Dose: 40 mg Nebivolol (Bystolic -) 20 mg PO BID [facility] Last Admin: 03/10/18 22:00 Dose: 20 mg Fluticasone/Salmeterol (Advair 100mcg/50mcg -) 1 puff IH BID [facility] Last Admin: 03/10/18 22:01 Dose: 1 puff Senna (Senna -) 1 tab PO HS PRN PRN Reason: CONSTIPATION Last Admin: 03/02/18 21:11 Dose: 1 tab Sertraline HCl (Zoloft -) 50 mg PO DAILY [facility] Last Admin: 03/11/18 10:09 Dose: 50 mg Spironolactone (Aldactone -) 50 mg PO DAILY [facility] Last Admin: 03/10/18 09:31 Dose: 50 mg - Objective Vital Signs: Vital Signs Temperature 98.0 F 03/11/18 06:00 Pulse Rate 60 03/11/18 06:00 Respiratory Rate 18 03/11/18 06:00 Blood Pressure 127/56 L 03/11/18 06:00 O2 Sat by Pulse Oximetry (%) 95 03/10/18 21:00 HENT: Yes: Atraumatic Neck: Yes: Supple Cardiovascular: Yes: Pulse Irregular, Murmur (JAZMYN), S1, S2 Respiratory: Yes: CTA Bilaterally Gastrointestinal: Yes: Normal Bowel Sounds, Soft, Abdomen, Obese. No: Tenderness Edema: No Additional Findings/Remarks: Review of Systems HEENT:denies headache, photophobia, blurring of vision Cardiovascular: (+) SOB Respiratory: reports: Cough but no Sputum Production Gastrointestinal: denies: Nausea, Vomiting, Diarrhea, Constipation or Abdominal Discomfort Musculoskeletal: denies joint pains Endocrine: No Symptoms Reported Neuro: denies seizure, syncope Labs: CBC, BMP 03/09/18 10:44 03/11/18 07:55 Problem List - Problems (1) Acute on chronic diastolic (congestive) heart failure Code(s): I50.33 - ACUTE ON CHRONIC DIASTOLIC (CONGESTIVE) HEART FAILURE (2) [id number]-dechtzz kidney injury Code(s): N17.9 - ACUTE KIDNEY FAILURE, UNSPECIFIED; N18.9 - CHRONIC KIDNEY DISEASE, UNSPECIFIED Qualifiers: Acute renal failure type: unspecified Chronic kidney disease stage: stage 2 (mild) Qualified Code(s): N17.9 - Acute kidney failure, unspecified; N18.2 - Chronic kidney disease, stage 2 (mild) (3) Anemia Code(s): D64.9 - ANEMIA, UNSPECIFIED Qualifiers: Anemia type: unspecified type Qualified Code(s): D64.9 - Anemia, unspecified (4) Chest pain Code(s): R07.9 - CHEST PAIN, UNSPECIFIED Qualifiers: Chest pain type: unspecified Qualified Code(s): R07.9 - Chest pain, unspecified (5) Diastolic dysfunction without heart failure Code(s): I51.9 - HEART DISEASE, UNSPECIFIED (6) Dyspnea Code(s): R06.00 - DYSPNEA, UNSPECIFIED Qualifiers: Dyspnea type: dyspnea on exertion Qualified Code(s): R06.09 - Other forms of dyspnea (7) HTN (hypertension) Code(s): I10 - ESSENTIAL (PRIMARY) HYPERTENSION Qualifiers: Hypertension type: essential hypertension Qualified Code(s): I10 - Essential (primary) hypertension (8) Sepsis due to pneumonia Code(s): J18.9 - PNEUMONIA, UNSPECIFIED ORGANISM; A41.9 - SEPSIS, UNSPECIFIED ORGANISM (9) Aortic valve stenosis Code(s): I35.0 - NONRHEUMATIC AORTIC (VALVE) STENOSIS Qualifiers: Cardiac valve disease etiology: nonrheumatic Qualified Code(s): I35.0 - Nonrheumatic aortic (valve) stenosis (10) Atrial fibrillation Code(s): I48.91 - UNSPECIFIED ATRIAL FIBRILLATION Qualifiers: Atrial fibrillation type: persistent Qualified Code(s): I48.1 - Persistent atrial fibrillation (11) COPD (chronic obstructive pulmonary disease) Code(s): J44.9 - CHRONIC OBSTRUCTIVE PULMONARY DISEASE, UNSPECIFIED Qualifiers: COPD type: unspecified COPD Qualified Code(s): J44.9 - Chronic obstructive pulmonary disease, unspecified (12) Diabetes mellitus Code(s): E11.9 - TYPE 2 DIABETES MELLITUS WITHOUT COMPLICATIONS Qualifiers: Diabetes mellitus type: type 2 Diabetes mellitus snf insulin use: without snf use Diabetes mellitus complication status: without complication Qualified Code(s): E11.9 - Type 2 diabetes mellitus without complications (13) Hypercholesterolemia Code(s): E78.00 - PURE HYPERCHOLESTEROLEMIA, UNSPECIFIED (14) Mitral valve regurgitation Code(s): I34.0 - NONRHEUMATIC MITRAL (VALVE) INSUFFICIENCY Qualifiers: Cardiac valve disease etiology: nonrheumatic Qualified Code(s): I34.0 - Nonrheumatic mitral (valve) insufficiency (15) Tricuspid valve regurgitation Code(s): I07.1 - RHEUMATIC TRICUSPID INSUFFICIENCY Qualifiers: Cardiac valve disease etiology: nonrheumatic Qualified Code(s): I36.1 - Nonrheumatic tricuspid (valve) insufficiency Assessment/Plan 1. Acute on chronic LV diastolic failure with moderate-severe aortic stenosis 2. COPD 3. Persistent atrial fibrillation with [id number] score of 7 on Eliquis 4. Type 2 DM 5. Hypertensive urgency 6. Hypercholesterolemia 7. Acute on chronic kidney disease 8. Anemia 9. Degenerative joint disease post right THR PLAN: 1. Lasix 60 BID and Aldactone 50 QD with monitoring renal function and electrolytes 2. Consider right and left heart cath as outpatient to further assess and possible TAVR entertained if appropriate 3. Continue Bystolic 20 BID, Lisinopril 40 QD, Eliquis 5 BID, Lipitor 20 QHS and Amlodipine 10 QD 4. Bronchodilator, O2 as needed and oral steroid course 5. Discharge planning and follow up in office to make arrangement for above evaluation Armen Stewart MD
[2018-03-11] MEDS: NEBIVOLOL 10 MG TABLET (FP) PO SCH (10:27)
[2018-03-11] MEDS: LISINOPRIL 20 MG TABLET (FP) PO SCH (10:27)
[2018-03-11] MEDS: amLODIPine BESYLATE 10 MG TABLET (FP) PO SCH (10:27)
[2018-03-11] MEDS: FLUTICASONE/SALMETEROL 100 MCG/50 MCG DISKUS IH SCH (10:28)
[2018-03-11] MEDS: SPIRONOLACTONE 25 MG TABLET (FP) PO SCH (10:28)
--- NOTE | 2018-03-11 10:53 | PN ---
Progress Note, Physician History of Present Illness: pulmonary alert,no distress,oob-chair - Current Medication List Current Medications: Active Medications Acetaminophen (Tylenol -) 650 mg PO Q6H PRN PRN Reason: Fever Last Admin: 03/09/18 09:50 Dose: 650 mg Acetaminophen (Tylenol -) 650 mg PO Q6H PRN PRN Reason: PAIN Last Admin: 03/09/18 16:24 Dose: 650 mg Amlodipine Besylate (Norvasc -) 10 mg PO DAILY [facility] Last Admin: 03/11/18 10:27 Dose: 10 mg Apixaban (Eliquis -) 5 mg PO BID [facility] Last Admin: 03/11/18 10:08 Dose: 5 mg Atorvastatin Calcium (Lipitor -) 20 mg PO HS [facility] Last Admin: 03/10/18 22:00 Dose: 20 mg Docusate Sodium (Colace -) 100 mg PO DAILY [facility] Last Admin: 03/11/18 10:08 Dose: 100 mg Furosemide (Lasix -) 60 mg PO BID@0600,1400 [facility] Last Admin: 03/11/18 05:41 Dose: 60 mg Insulin Aspart (Novolog Vial Sliding Scale -) 1 vial SQ ACHS [facility]; Protocol Last Admin: 03/11/18 07:04 Dose: 2 units Lisinopril (Prinivil) 40 mg PO DAILY [facility] Last Admin: 03/11/18 10:27 Dose: 40 mg Nebivolol (Bystolic -) 20 mg PO BID [facility] Last Admin: 03/11/18 10:27 Dose: 20 mg Fluticasone/Salmeterol (Advair 100mcg/50mcg -) 1 puff IH BID [facility] Last Admin: 03/11/18 10:28 Dose: 1 puff Senna (Senna -) 1 tab PO HS PRN PRN Reason: CONSTIPATION Last Admin: 03/02/18 21:11 Dose: 1 tab Sertraline HCl (Zoloft -) 50 mg PO DAILY [facility] Last Admin: 03/11/18 10:09 Dose: 50 mg Spironolactone (Aldactone -) 50 mg PO DAILY [facility] Last Admin: 03/11/18 10:28 Dose: 50 mg - Objective Vital Signs: Vital Signs Temperature 98.0 F 03/11/18 06:00 Pulse Rate 60 03/11/18 06:00 Respiratory Rate 18 03/11/18 06:00 Blood Pressure 127/56 L 03/11/18 06:00 O2 Sat by Pulse Oximetry (%) 95 03/10/18 21:00 Constitutional: Yes: Well Nourished, Calm Eyes: Yes: WNL HENT: Yes: WNL Neck: Yes: WNL Cardiovascular: Yes: Pulse Irregular, S1, S2 Respiratory: Yes: Rales (few bibasilar crackles) Gastrointestinal: Yes: Normal Bowel Sounds, Soft Extremities: Yes: WNL Edema: No Labs: CBC, BMP 03/09/18 10:44 03/11/18 07:55 INR, PTT INR 1.66 (0.83-1.09) H 02/26/18 06:00 Problem List - Problems (1) CHF exacerbation Code(s): I50.9 - HEART FAILURE, UNSPECIFIED (2) Acute on chronic diastolic (congestive) heart failure Code(s): I50.33 - ACUTE ON CHRONIC DIASTOLIC (CONGESTIVE) HEART FAILURE (3) HTN (hypertension) Code(s): I10 - ESSENTIAL (PRIMARY) HYPERTENSION Qualifiers: Hypertension type: essential hypertension Qualified Code(s): I10 - Essential (primary) hypertension (4) Shortness of breath Code(s): R06.02 - SHORTNESS OF BREATH (5) Aortic valve stenosis Code(s): I35.0 - NONRHEUMATIC AORTIC (VALVE) STENOSIS Qualifiers: Cardiac valve disease etiology: nonrheumatic Qualified Code(s): I35.0 - Nonrheumatic aortic (valve) stenosis (6) Atrial fibrillation Code(s): I48.91 - UNSPECIFIED ATRIAL FIBRILLATION Qualifiers: Atrial fibrillation type: persistent Qualified Code(s): I48.1 - Persistent atrial fibrillation (7) COPD (chronic obstructive pulmonary disease) Code(s): J44.9 - CHRONIC OBSTRUCTIVE PULMONARY DISEASE, UNSPECIFIED Qualifiers: COPD type: unspecified COPD Qualified Code(s): J44.9 - Chronic obstructive pulmonary disease, unspecified (8) Diabetes mellitus Code(s): E11.9 - TYPE 2 DIABETES MELLITUS WITHOUT COMPLICATIONS Qualifiers: Diabetes mellitus type: type 2 Diabetes mellitus custodial insulin use: without custodial use Diabetes mellitus complication status: without complication Qualified Code(s): E11.9 - Type 2 diabetes mellitus without complications Assessment/Plan A/P Acute on Chronic Diastolic Heart Failure clinically improving Aortic Stenosis COPD Atrial Fibrillation HTN DM Hypercholesterolemia Anemia - lasix, aldactone - monitor urine output, creatinine - daily weights - inhaled bronchodilators - O2 to keep Spo2 >90% - Jordon PACHECO
--- NOTE | 2018-03-11 13:17 | PN ---
Teaching Attending Note Name of Resident: Lyly Parson ATTENDING PHYSICIAN STATEMENT I saw and evaluated the patient. I reviewed the resident's note and discussed the case with the resident. I agree with the resident's findings and plan as documented. SUBJECTIVE: Seen and examined; no new complaints. States breathing is better, no new sx. OBJECTIVE: Labs reviewed, VSS Gen: AAOx3, NAD, resting in bed CV: Systolic murmur 4/6, no heaves, no b/l JVD with mildly positive HJR Pulm: Sym CW expansion, minimal crackles GI: Soft NT ND +BS Neuro: CN 2-12 grossly intact, moves all 4 limbs. Psych: Normal mood and affect, average insight. Appropriate behavior. ASSESSMENT AND PLAN: 1. Acute on chronic LV diastolic failure with moderate-severe improving 2. COPD 3. Persistent atrial fibrillation with [id number] score of 7 on Eliquis 4. Type 2 diabetes mellitus 5. Hypertensive urgency, BP not at goal 6. Hypercholesterolemia 7. Acute on chronic kidney disease 8. Anemia 9. Degenerative joint disease post right THR Overall, the patient has reached the maximum benefit from their hospitalization. She continues to diurese well with current PO Lasix dose, aldactone, etc. She will be DC home on her COPD management, old Afib meds, etc. She will be following up in 48 hours with CV for evaluation for TAVR ( likely will require LHC/RHC). Followup with PCP and pulmonary, as well. She should fluid restrict, check daily weights, etc. Counseled at length by myself and the team regarding her home management and warning signs when to return to the ER. She verbalized understanding and will be sent home. Exam unchanged today. Total time spent is 35 minutes including counseling Thank you for allowing [facility] to be involved in the treatment of this patient.
[2018-03-11] MEDS: ACETAMINOPHEN 325 MG TABLET (FP) PO PRN (13:19)
[2018-03-11 14:45] VITALS: BP 122/57; PULSE 51; TEMP 98.3
== END 2018-03-11 15:25 | disposition home or self-care (01) | DRG 291 ==
LOC: JER 16:06 → JERBED 20:47 → J4S 02-26 20:03
PROVIDERS: ADMIT Internal Medicine; ATTEND Internal Medicine
DX: I13.0 Hypertensive heart and chronic kidney disease with heart failure and stage 1 through stage 4 chronic kidney disease, or unspecified chronic kidney disease (principal); I50.33 Acute on chronic diastolic (congestive) heart failure; I48.1 Persistent atrial fibrillation; N17.9 Acute kidney failure, unspecified; I24.8 Other forms of acute ischemic heart disease; N18.2 Chronic kidney disease, stage 2 (mild); E78.5 Hyperlipidemia, unspecified; E11.22 Type 2 diabetes mellitus with diabetic chronic kidney disease; J44.9 Chronic obstructive pulmonary disease, unspecified; J45.909 Unspecified asthma, uncomplicated; F41.8 Other specified anxiety disorders; E66.9 Obesity, unspecified; D64.9 Anemia, unspecified; Z68.30 Body mass index [BMI] 30.0-30.9, adult; I27.20 Pulmonary hypertension, unspecified; I08.3 Combined rheumatic disorders of mitral, aortic and tricuspid valves; R60.9 Edema, unspecified; M16.11 Unilateral primary osteoarthritis, right hip; I25.10 Atherosclerotic heart disease of native coronary artery without angina pectoris; I16.0 Hypertensive urgency; R10.9 Unspecified abdominal pain; N89.8 Other specified noninflammatory disorders of vagina; Z96.659 Presence of unspecified artificial knee joint; Z96.641 Presence of right artificial hip joint; Z85.828 Personal history of other malignant neoplasm of skin; Z87.891 Personal history of nicotine dependence; Z99.81 Dependence on supplemental oxygen
CPT/HCPCS: 36415; 71045-TC-FY; 73610-TC-RT-FY; 73630-TC-RT-FY; 76700-TC; 80048; 80053; 81003; 82272; 82550; 82607; 82728; 82962; 83036; 83540; 83550; 83735; 83880; 84100; 84484; 85025; 85027; 85610; 85730; 90688; 93005; 93010; 93306-TC; 93971-TC; 94010; 94150; 94640; 94761; 97116-GP; 97162-GP; 99285-25; G0008

== ENCOUNTER 2018-05-13 15:27 | Inpatient (IN) | payer OTHER ==
--- NOTE | 2018-05-13 16:56 | PDOC ---
History of Present Illness - General Chief Complaint: Diarrhea Stated Complaint: Diarrhea Time Seen by Provider: 05/13/18 16:50 History Source: Patient Exam Limitations: No Limitations - History of Present Illness Initial Comments: Pt is a 82 yo F, with PMH of diastolic CHF, COPD, HTN, HLD, asthma, DM, and A Fib (on Eliquis), who is presenting with complaints of 2-3 episodes of loose brown stool over the past 3 days, with associated nausea and light-headedness today. Pt states she initially had blood mixed into the stool on the first day of diarrhea, but she has had that in the past after straining with her hemorrhoids. Pt does not ambulate on her own, and she lives with her daughter and has an aide to help her get around the house. Pt admits to dysuria over the past few weeks, and states she is currently taking "an antibiotic for urine infection". Pt denies any new/raw foods or recent sick contacts. Pt denies any fevers/chills, headache, vision changes, chest pain, palpitations, SOB, nausea/ vomiting, abdominal pain, or leg swelling. Social: Pt denies any cigarette, alcohol, or drug use. Pt denies any recent travel or sick contacts. Surgical: no relevant history Family: no relevant history 05/13/18 19:32 Past History - Travel Traveled outside of the country in the last 30 days: No Close contact w/someone who was outside of country & ill: No - Past Medical History Allergies/Adverse Reactions: Allergies Allergy/AdvReac Type Severity Reaction Status Date / Time ciprofloxacin [From Cipro] Allergy Verified 05/13/18 15:43 ciprofloxacin HCl Allergy Verified 05/13/18 15:43 [From Cipro] Home Medications: Ambulatory Orders Lisinopril [Zestril] 40 mg PO DAILY 12/29/16 Simvastatin 40 mg PO DAILY 12/29/16 Omeprazole Magnesium [Prilosec Otc] 40 mg PO DAILY 09/06/17 Sertraline HCl [Zoloft -] 50 mg PO DAILY 09/09/17 Apixaban [Eliquis -] 5 mg PO BID #0 tablet 09/27/17 Albuterol Sulfate [Proair Respiclick] 90 mcg IH Q4H PRN 02/27/18 Nebivolol [Bystolic -] 20 mg PO BID 15 Days #30 tab 03/10/18 Spironolactone [Aldactone] 50 mg PO DAILY 15 Days #15 tablet 03/11/18 Furosemide [Lasix] 60 mg PO DAILY 05/13/18 Anemia: Yes Asthma: Yes Cancer: Yes (SKIN / FOREHEAD 2010) Cardiac Disorders: Yes (A-fib, CAD, Angina, TR, MR, AV stenosis) CVA: Yes COPD: Yes (Asthma, pulmonary HTN) CHF: Yes Dementia: No Diabetes: Yes GI Disorders: No Disorders: No HTN: Yes Hypercholesterolemia: Yes Liver Disease: No Psychiatric Problems: Yes (depresion, anxiety) Seizures: No Thyroid Disease: No - Surgical History Abdominal Surgery: No Appendectomy: No Cardiac Surgery: No Cholecystectomy: No Lung Surgery: No Neurologic Surgery: No Orthopedic Surgery: Yes ((R) HIP REPLACEMENT 2007, redone 2015) - Immunization History Immunization Up to Date: Yes - Suicide/Smoking/Psychosocial Hx Smoking Status: No Smoking History: Former smoker Have you smoked in the past 12 months: No Number of Cigarettes Smoked Daily: 0 If you are a former smoker, when did you quit?: many years ago Cigars Per Day: 0 Information on smoking cessation initiated: No Hx Alcohol Use: No Drug/Substance Use Hx: No Substance Use Type: None Hx Substance Use Treatment: No Review of Systems - Review of Systems Able to Perform ROS?: Yes Is the patient limited Senegalese proficient: No Constitutional: Yes: Weakness (post diarrhea only), Weight Stable. No: Chills, Diaphoresis, Fever, Loss of Appetite *Physical Exam - Vital Signs Last Vital Signs Temp Pulse Resp BP Pulse Ox 98.1 F 61 18 97/45 L 99 05/13/18 15:33 05/13/18 15:33 05/13/18 15:33 05/13/18 15:33 05/13/18 15:33 Moderate Sedation - Procedure Monitoring Vital Signs: Procedure Monitoring Vital Signs Temperature 98.1 F 05/13/18 15:33 Pulse Rate 61 05/13/18 15:33 Respiratory Rate 18 05/13/18 15:33 Blood Pressure 97/45 L 05/13/18 15:33 O2 Sat by Pulse Oximetry (%) 99 05/13/18 15:33 ED Treatment Course - LABORATORY CBC & Chemistry Diagram: 05/13/18 17:30 05/13/18 17:30 Medical Decision Making - Medical Decision Making Pt was seen at bedside, also will be seen by attending Dr. Almanza. Pt presenting with complaints of 2-3 episodes of loose brown stool over the past 3 days, with associated nausea and light-headedness. Pt does not ambulate on her own, and she lives with her daughter and has an aide to help her get around the house. Pt admits to dysuria over the past few weeks, and states she is currently taking "an antibiotic" Pt denies any new/raw foods or recent sick contacts. PE showed large external hemorrhoids, no evidence of acute rectal bleeding. No abdominal tenderness to palpation on exam, no rebound, no guarding. Considering viral enteritis vs infectious colitis (pt taking recent antibiotics) . Likely overlying CHF exacerbation and dehydration 2/2 to diarrhea. Ordered work-up including Cbc, CMP, lactic, Mg, Phos, PT/INR, troponin, ECG, BNP , lipase, lactic acid Provided 250 mg IV NS and 4 mg IV zofran for improvement of dehydration and light-headedness. Will continue to reassess pt and monitor for symptomatic improvement. Stool for occult blood sent to lab and was negative. 05/13/18 17:36 CBC WNL. INR 1.86 Pending CMP. 05/13/18 18:11 BP more stable at 112/84. Provided 10 mg IV lasix for fluid reduction/lung crackles. Will reassess. CBC WNL. CMP showed dehydration/SARA (BUN 53, Cr 1.9), Mg 1.7, Lipase 363, Lactic acid 0.9 Trop .02, BNP 3980 Hospitalist team was paged for admission. 05/13/18 18:52 UA negative for infection. Awaiting call back from hospitalist team. BP improved 124/90, HR improved to 50s-60s. 05/13/18 19:14 Second microblog placed for hospitalist team admission. 05/13/18 19:31 Pt accepted for admission. Pt awaiting bed upstairs and is lying comfortably. 05/13/18 19:50 *DC/Admit/Observation/Transfer - Referrals Referrals: Arvind Ravi MD [Primary Care Provider] - - Patient Instructions - Post Discharge Activity
[2018-05-13] MEDS ORDERED: SODIUM CHLORIDE 250 ML IV STA (17:19)
[2018-05-13] MEDS ORDERED: ONDANSETRON 4 MG/2 ML VIAL IVPUSH ONE (17:19)
[2018-05-13] MEDS ORDERED: ONDANSETRON 4 MG/2 ML VIAL ONE (17:25)
[2018-05-13 17:42] LABS: BASO % 0.7 % (0-2.0); EOS % 2.5 % (0-4.5); HEMATOCRIT 34.5 % (32.4-45.2); HEMOGLOBIN 11.7 GM/dL (10.7-15.3); LYMPH % 12.9 % (8-40); MCH 30.1 pg (25.7-33.7); MEAN CELL VOLUME 88.7 fl (80-96); MEAN PLT VOLUME 10.4 fl (7.5-11.1); MONO % 9.8 % (3.8-10.2); NEUT % 74.1 % (42.8-82.8); PLATELET COUNT 183 K/MM3 (134-434); RBC 3.89 M/mm3 (3.60-5.2); RDW 16.3 % (11.6-15.6); WHITE BLOOD COUNT 8.1 K/mm3 (4.0-10.0)
[2018-05-13 17:56] LABS: INR 1.82 (0.83-1.09); PROTHROMBIN TIME (PATIENT) 21.6 SEC (9.7-13.0)
[2018-05-13 18:26] LABS: ALBUMIN 3.5 g/dl (3.4-5.0); ALK PHOS 57 U/L (45-117); ANION GAP 9 MMOL/L (8-16); BILIRUBIN,TOTAL 0.2 mg/dL (0.2-1); CALCIUM 8.5 mg/dL (8.5-10.1); CHLORIDE 112 mmol/L (98-107); CO2 19 mmol/L (21-32); CREATININE 1.9 mg/dL (0.55-1.3); GLUCOSE,RANDOM 114 mg/dL (74-106); LIPASE 363 U/L (73-393); MAGNESIUM 1.7 mg/dL (1.8-2.4); N-TERMINAL BNP 3980.6 pg/ml (5-450); PHOSPHOROUS 4.5 mg/dL (2.5-4.9); POTASSIUM 4.8 mmol/L (3.5-5.1); SGOT/AST 17 U/L (15-37); SGPT/ALT 21 U/L (13-61); SODIUM 140 mmol/L (136-145); TOT PROT 6.3 g/dl (6.4-8.2)
[2018-05-13 18:27] LABS: BLOOD UREA NITROGEN 53 mg/dL (7-18)
[2018-05-13] MEDS ORDERED: FUROSEMIDE 40 MG/4 ML INJECTABLE VIAL IVPUSH ONE (18:41)
--- NOTE | 2018-05-13 18:41 | PDOC ---
Attending Attestation - Resident Resident Name: Katharine Pichardo - ED Attending Attestation I have performed the following: I have examined & evaluated the patient, The case was reviewed & discussed with the resident, I agree w/resident's findings & plan, Exceptions are as noted - HPI HPI: 05/13/18 18:39 82 yo female w diat CHF afib on eloquis, htn hld, ckd, presenting with diarrhea , lighheadedness. states has been having lots ofloose watery stool, was recenlty taking abx for uti, nausea, no vomiting. no co abd pain. also c/o feeling sob. no cp tx with ABX for UTI recently 05/22/18 08:26 - Physicial Exam PE: 05/22/18 08:27 awake alert lungs with rales at bilat bases. no wheezing. heart irreg reg no mrg abd soft nt nd. ext wwp. rectal hemorroids, no gross blood. skin warm and dry. - Medical Decision Making 05/22/18 08:28 differential colitis, electrolyte abnormality infection such as pna, pl effusion. possible chf due to rales on exam. anemia. plan labs cxr ekg trop . will izabel require admission for sob, worsening ckd, plan antiemetics, cxr ekg labs.
--- NOTE | 2018-05-13 18:42 | PDOC ---
*Physical Exam - Vital Signs Last Vital Signs Temp Pulse Resp BP Pulse Ox 98.1 F 50 L 16 107/52 L 95 05/13/18 15:33 05/13/18 18:22 05/13/18 18:22 05/13/18 18:22 05/13/18 18:22 ED Treatment Course - LABORATORY CBC & Chemistry Diagram: 05/15/18 05:30 05/17/18 07:22 - ADDITIONAL ORDERS Additional order review: Laboratory Results 05/13/18 05/13/18 05/13/18 17:51 17:30 17:30 PT with INR 21.60 H INR 1.82 H Sodium 140 Potassium 4.8 Chloride 112 H Carbon Dioxide 19 L Anion Gap 9 BUN 53 H Creatinine 1.9 H Creat Clearance w eGFR 25.25 Random Glucose 114 H Lactic Acid 0.9 Calcium 8.5 Phosphorus 4.5 Magnesium 1.7 L Total Bilirubin 0.2 AST 17 ALT 21 Alkaline Phosphatase 57 Troponin I 0.02 B-Natriuretic Peptide 3980.6 H Total Protein 6.3 L Albumin 3.5 Lipase 363 Stool Occult Blood 05/13/18 17:16 PT with INR INR Sodium Potassium Chloride Carbon Dioxide Anion Gap BUN Creatinine Creat Clearance w eGFR Random Glucose Lactic Acid Calcium Phosphorus Magnesium Total Bilirubin AST ALT Alkaline Phosphatase Troponin I B-Natriuretic Peptide Total Protein Albumin Lipase Stool Occult Blood Negative 05/13/18 17:30 RBC 3.89 MCV 88.7 MCHC 34.0 RDW 16.3 H MPV 10.4 D Neutrophils % 74.1 Lymphocytes % 12.9 Monocytes % 9.8 Eosinophils % 2.5 Basophils % 0.7 - Medications Given in the ED: ED Medications Discontinued Medications Generic Name Dose Route Start Last Admin Trade Name Freq PRN Reason Stop Dose Admin Ondansetron HCl 4 mg 05/13/18 17:19 05/13/18 17:24 Zofran Injection IVPUSH 05/13/18 17:20 4 mg ONCE ONE Administration Medical Decision Making - Medical Decision Making 05/13/18 18:41 pt has c/o diarrhea and on exam has rales and is being admitted for chf exacerbation *DC/Admit/Observation/Transfer Diagnosis at time of Disposition: CHF exacerbation - Discharge Dispostion Disposition: HOME Condition at time of disposition: Good - Prescriptions - Referrals - Patient Instructions - Post Discharge Activity
[2018-05-13 18:51] LABS: URINE APPEARANCE SLCLOUDY; URINE BILIRUBIN NEGATIVE (<2.0 mg/dL); URINE COLOR YELLOW; URINE GLUCOSE (UA) NEGATIVE (NEGATIVE); URINE KETONE NEGATIVE (NEGATIVE); URINE LEUK ESTERASE NEGATIVE (NEGATIVE); URINE NITRITE NEGATIVE (NEGATIVE); URINE PROTEIN NEGATIVE (NEGATIVE); URINE UROBILINOGEN NEGATIVE mg/dL (0.2-1.0)
[2018-05-13] MEDS ORDERED: FUROSEMIDE 40 MG/4 ML INJECTABLE VIAL ONE (19:29)
[2018-05-13] MEDS ORDERED: ONDANSETRON 4 MG/2 ML VIAL IVPUSH PRN (19:44)
[2018-05-13] MEDS ORDERED: LACTATED RINGERS SOLUTION 1,000 ML IV SCH (20:00)
--- NOTE | 2018-05-13 20:07 | PDOC ---
Attending Attestation - Resident Resident Name: MarinoKatharine - ED Attending Attestation I have performed the following: I have examined & evaluated the patient, The case was reviewed & discussed with the resident, I agree w/resident's findings & plan, Exceptions are as noted - HPI HPI: 05/13/18 20:06 82 yo female p/w diarrhea - Physicial Exam PE: 05/13/18 20:07 wnwd 82 yo female in no acute distress head ncat neck no bruits,no jvd lung scant rales at base cvs [id number] abd no rebound, no guarding ext no pitting edema skin warm and dry neuro alert and conversant,moving all extremities - Medical Decision Making 05/13/18 20:10 pt has chf and will be admitted
--- NOTE | 2018-05-13 20:37 | HP ---
CHIEF COMPLAINT: cough, diarrhea PCP: Marie HISTORY OF PRESENT ILLNESS: 82 yo F, with PMH of CHF, COPD, HTN, HLD, asthma, DM2, and A Fib (on Eliquis) with multiple complaints including cough, and loose stools for the past 3 days. Patient reports stools as watery, 3-4 episodes a day, nonbloody. Patient has taken an unknown antibiotic for UTI for the past week. No change in baseline exercise tolerance. ER course was notable for: (1) IV fluid (2) IV Furosemide (3) Recent Travel: none PAST MEDICAL HISTORY: Diastolic CHF, COPD, HTN, HLD, asthma, DM, and A Fib (on Eliquis) PAST SURGICAL HISTORY: none Social History: Smoking: quit Alcohol: no Drugs: no Family History: none Allergies ciprofloxacin [From Cipro] Allergy (Verified 05/13/18 15:43) ciprofloxacin HCl [From Cipro] Allergy (Verified 05/13/18 15:43) HOME MEDICATIONS: Home Medications Medication Instructions Recorded Lisinopril [Zestril] 40 mg PO DAILY 12/29/16 Simvastatin 40 mg PO DAILY 12/29/16 Omeprazole Magnesium [Prilosec Otc] 40 mg PO DAILY 09/06/17 Sertraline HCl [Zoloft -] 50 mg PO DAILY 09/09/17 Apixaban [Eliquis -] 5 mg PO BID #0 tablet 09/27/17 Albuterol Sulfate [Proair 90 mcg IH Q4H PRN 02/27/18 Respiclick] Nebivolol [Bystolic -] 20 mg PO BID 15 Days #30 tab 03/10/18 Spironolactone [Aldactone] 50 mg PO DAILY 15 Days #15 tablet 03/11/18 Furosemide [Lasix] 60 mg PO DAILY 05/13/18 REVIEW OF SYSTEMS CONSTITUTIONAL: Absent: fever, chills, diaphoresis, generalized weakness, malaise, loss of appetite, weight change HEENT: Absent: rhinorrhea, nasal congestion, throat pain, throat swelling, difficulty swallowing, mouth swelling, ear pain, eye pain, visual changes CARDIOVASCULAR: Absent: chest pain, syncope, palpitations, irregular heart rate, lightheadedness , peripheral edema RESPIRATORY: Absent: , shortness of breath, dyspnea with exertion, orthopnea, wheezing, stridor, hemoptysis Present- cough GASTROINTESTINAL: Absent: abdominal pain, abdominal distension, nausea, vomiting, constipation, melena, hematochezia Present- diarrhea GENITOURINARY: Absent: dysuria, frequency, urgency, hesitancy, hematuria, flank pain, genital pain MUSCULOSKELETAL: Absent: myalgia, arthralgia, joint swelling, back pain, neck pain SKIN: Absent: rash, itching, pallor HEMATOLOGIC/IMMUNOLOGIC: Absent: easy bleeding, easy bruising, lymphadenopathy, frequent infections ENDOCRINE: Absent: unexplained weight gain, unexplained weight loss, heat intolerance, cold intolerance NEUROLOGIC: Absent: headache, focal weakness or paresthesias, dizziness, unsteady gait, seizure, mental status changes, bladder or bowel incontinence PSYCHIATRIC: Absent: anxiety, depression, suicidal or homicidal ideation, hallucinations. PHYSICAL EXAMINATION Vital Signs - 24 hr 05/13/18 05/13/18 05/13/18 15:33 17:39 18:22 Temperature 98.1 F Pulse Rate 61 Pulse Rate [ 54 L 50 L Apical] Respiratory 18 16 16 Rate Blood Pressure 97/45 L Blood Pressure 107/52 L [Right Arm] O2 Sat by Pulse 99 98 95 Oximetry (%) GENERAL: Awake, alert, and fully oriented, in no acute distress. HEAD: Normal with no signs of trauma. EYES: Pupils equal, round and reactive to light, extraocular movements intact, sclera anicteric, conjunctiva clear. No lid lag. EARS, NOSE, THROAT: Ears normal, nares patent, oropharynx clear without exudates.dry mucous membranes NECK: Normal range of motion, supple without lymphadenopathy, JVD, or masses. LUNGS: Breath sounds equal, clear to auscultation bilaterally. No wheezes, and no crackles. No accessory muscle use. HEART: Regular rate and rhythm, normal S1 and S2 without murmur, rub or gallop. ABDOMEN: Soft, nontender, not distended, normoactive bowel sounds, no guarding, no rebound, no masses. No hepatomegaly or splenomegaly. MUSCULOSKELETAL: Normal range of motion at all joints. No bony deformities or tenderness. No CVA tenderness. UPPER EXTREMITIES: 2+ pulses, warm, well-perfused. No cyanosis. No clubbing. No peripheral edema. LOWER EXTREMITIES: 2+ pulses, warm, well-perfused. No calf tenderness. No peripheral edema. NEUROLOGICAL: Cranial nerves II-XII intact. Normal speech. Normal gait. PSYCHIATRIC: Cooperative. Good eye contact. Appropriate mood and affect. SKIN: Warm, dry, mildly decreased turgor no rashes or lesions noted, normal capillary refill. Laboratory Results - last 24 hr 05/13/18 05/13/18 05/13/18 17:16 17:30 17:30 WBC 8.1 RBC 3.89 Hgb 11.7 Hct 34.5 MCV 88.7 MCH 30.1 MCHC 34.0 RDW 16.3 H Plt Count 183 D MPV 10.4 D Absolute Neuts (auto) 6.0 Neutrophils % 74.1 Lymphocytes % 12.9 Monocytes % 9.8 Eosinophils % 2.5 Basophils % 0.7 Nucleated RBC % 0 PT with INR INR Sodium 140 Potassium 4.8 Chloride 112 H Carbon Dioxide 19 L Anion Gap 9 BUN 53 H Creatinine 1.9 H Creat Clearance w eGFR 25.25 Random Glucose 114 H Lactic Acid Calcium 8.5 Phosphorus 4.5 Magnesium 1.7 L Total Bilirubin 0.2 AST 17 ALT 21 Alkaline Phosphatase 57 Troponin I 0.02 B-Natriuretic Peptide 3980.6 H Total Protein 6.3 L Albumin 3.5 Lipase 363 Urine Color Urine Appearance Urine pH Ur Specific [place] Urine Protein Urine Glucose (UA) Urine Ketones Urine Blood Urine Nitrite Urine Bilirubin Urine Urobilinogen Ur Leukocyte Esterase Stool Occult Blood Negative 05/13/18 05/13/18 05/13/18 17:30 17:51 18:43 WBC RBC Hgb Hct MCV MCH MCHC RDW Plt Count MPV Absolute Neuts (auto) Neutrophils % Lymphocytes % Monocytes % Eosinophils % Basophils % Nucleated RBC % PT with INR 21.60 H INR 1.82 H Sodium Potassium Chloride Carbon Dioxide Anion Gap BUN Creatinine Creat Clearance w eGFR Random Glucose Lactic Acid 0.9 Calcium Phosphorus Magnesium Total Bilirubin AST ALT Alkaline Phosphatase Troponin I B-Natriuretic Peptide Total Protein Albumin Lipase Urine Color Yellow Urine Appearance Slcloudy Urine pH 5.0 Ur Specific [place] 1.011 Urine Protein Negative Urine Glucose (UA) Negative Urine Ketones Negative Urine Blood Negative Urine Nitrite Negative Urine Bilirubin Negative Urine Urobilinogen Negative Ur Leukocyte Esterase Negative Stool Occult Blood EKG reviewed -afib with bradycardia, no acute ischemic changes cxr reviewed ASSESSMENT/PLAN: #82yo woman with diarrhea will on antibiotics, concerning for C difficile colitis. Mild clinical dehydration. No clinical or radiological evidence of CHF exacerbation at this time. Afib with bradycardia. -observation -mild IV fluid hydration -send stool for Cdiff toxin when possible -orthostatics -hold Bblockers due to bradycardia -hold furosemide and spironolactone at this time because of dehydration #CHF - controlled, no evidence of blood overload -holding diuretics and bblocker -c/w lisinopril -sodium restriction diet #Afib -c/w eliquis home dose #DM -novolog sliding scale #DVT ppx -on Eliquis Visit type - Emergency Visit Emergency Visit: Yes Care time: The patient presented to the Emergency Department on the above date and was hospitalized for further evaluation of their emergent condition. - New Patient This patient is new to me today: Yes Date on this admission: 05/13/18 - Critical Care Critical Care patient: No
[2018-05-13] MEDS ORDERED: ALBUTEROL SO4 8 GM HFA INHALER IH PRN (20:57)
[2018-05-13] MEDS ORDERED: HEPARIN NA (PORCINE) 5,000 UNITS/ML 1ML VIAL SQ SCH (22:00)
[2018-05-13] MEDS ORDERED: APIXABAN 5 MG TABLET PO ONE (22:27)
[2018-05-13] MEDS: APIXABAN 5 MG TABLET PO SCH (22:36)
[2018-05-14 05:37] LABS: HEMATOCRIT 34.7 % (32.4-45.2); HEMOGLOBIN 11.2 GM/dL (10.7-15.3); MCH 28.8 pg (25.7-33.7); MCHC 32.2 g/dl (32.0-36.0); MEAN CELL VOLUME 89.5 fl (80-96); MEAN PLT VOLUME 9.5 fl (7.5-11.1); PLATELET COUNT 136 K/MM3 (134-434); RBC 3.87 M/mm3 (3.60-5.2); RDW 15.9 % (11.6-15.6)
[2018-05-14 06:25] LABS: CREATININE 2.1 mg/dL (0.55-1.3)
[2018-05-14 06:26] LABS: CO2 23 mmol/L (21-32)
[2018-05-14 06:35] LABS: ANION GAP 5 MMOL/L (8-16); BLOOD UREA NITROGEN 54 mg/dL (7-18); CALCIUM 8.2 mg/dL (8.5-10.1); CHLORIDE 114 mmol/L (98-107); GLUCOSE,RANDOM 109 mg/dL (74-106); POTASSIUM 4.4 mmol/L (3.5-5.1); SODIUM 142 mmol/L (136-145)
--- NOTE | 2018-05-14 09:48 | EKG ---
Test Reason : Blood Pressure : / mmHG Vent. Rate : 050 BPM Atrial Rate : 047 BPM P-R Int : 000 ms QRS Dur : 090 ms QT Int : 446 ms P-R-T Axes : 000 -46 -10 degrees QTc Int : 406 ms ATRIAL FIBRILLATION WITH SLOW VENTRICULAR RESPONSE LEFT AXIS DEVIATION ANTEROLATERAL INFARCT (CITED ON OR BEFORE 25-FEB-2018) ABNORMAL ECG WHEN COMPARED WITH ECG OF 25-FEB-2018 19:35, PREVIOUS ECG HAS UNDETERMINED RHYTHM, NEEDS REVIEW QUESTIONABLE CHANGE IN INITIAL FORCES OF SEPTAL LEADS T WAVE INVERSION NOW EVIDENT IN INFERIOR LEADS NONSPECIFIC T WAVE ABNORMALITY, WORSE IN ANTERIOR LEADS Confirmed by CULLEN [place], [place] ([id number]) on 05/14/2018 9:48:02 AM Referred By: Confirmed By:LA BERMAN MD
[2018-05-14] MEDS: LISINOPRIL 20 MG TABLET (FP) PO SCH (11:26)
[2018-05-14] MEDS: APIXABAN 5 MG TABLET PO SCH ×2 (11:26→21:19)
[2018-05-14] MEDS: SERTRALINE HCL 50 MG TABLET (FP) PO SCH (11:27)
[2018-05-14] MEDS: PANTOPRAZOLE 40 MG TABLET (FP) PO SCH (11:27)
[2018-05-14] MEDS ORDERED: MAGNESIUM SULF 50% (8.12 MEQ/2 ML-1 GM VIAL) IVPB ONE (12:03)
--- NOTE | 2018-05-14 15:40 | PN ---
Progress Note (short form) - Note Progress Note: Feeling less SOB. NO cough/spuitum/hemoptysis/orthopnea Afebrile, Hemodynamically stable. Last Vital Signs Temp Pulse Resp BP Pulse Ox 98.5 F 57 L 18 124/63 95 05/14/18 15:17 05/14/18 15:17 05/14/18 15:17 05/14/18 15:17 05/14/18 15:17 HEENT- Atraumatic, Normocephalic. No pharyngeal erythema/exudate Heart - S1, S2, SM Lungs - decreased air entry bibasally Abdomen - soft, non-tender. Bowel Sounds normal. Extremities - mild edema. No calf tenderness. Laboratory Results - last 24 hr 05/13/18 05/13/18 05/13/18 17:16 17:30 17:30 WBC 8.1 RBC 3.89 Hgb 11.7 Hct 34.5 MCV 88.7 MCH 30.1 MCHC 34.0 RDW 16.3 H Plt Count 183 D MPV 10.4 D Absolute Neuts (auto) 6.0 Neutrophils % 74.1 Lymphocytes % 12.9 Monocytes % 9.8 Eosinophils % 2.5 Basophils % 0.7 Nucleated RBC % 0 PT with INR INR Sodium 140 Potassium 4.8 Chloride 112 H Carbon Dioxide 19 L Anion Gap 9 BUN 53 H Creatinine 1.9 H Creat Clearance w eGFR 25.25 Random Glucose 114 H Lactic Acid Calcium 8.5 Phosphorus 4.5 Magnesium 1.7 L Total Bilirubin 0.2 AST 17 ALT 21 Alkaline Phosphatase 57 Troponin I 0.02 B-Natriuretic Peptide 3980.6 H Total Protein 6.3 L Albumin 3.5 Lipase 363 Urine Color Urine Appearance Urine pH Ur Specific [place] Urine Protein Urine Glucose (UA) Urine Ketones Urine Blood Urine Nitrite Urine Bilirubin Urine Urobilinogen Ur Leukocyte Esterase Stool Occult Blood Negative 05/13/18 05/13/18 05/13/18 17:30 17:51 18:43 WBC RBC Hgb Hct MCV MCH MCHC RDW Plt Count MPV Absolute Neuts (auto) Neutrophils % Lymphocytes % Monocytes % Eosinophils % Basophils % Nucleated RBC % PT with INR 21.60 H INR 1.82 H Sodium Potassium Chloride Carbon Dioxide Anion Gap BUN Creatinine Creat Clearance w eGFR Random Glucose Lactic Acid 0.9 Calcium Phosphorus Magnesium Total Bilirubin AST ALT Alkaline Phosphatase Troponin I B-Natriuretic Peptide Total Protein Albumin Lipase Urine Color Yellow Urine Appearance Slcloudy Urine pH 5.0 Ur Specific [place] 1.011 Urine Protein Negative Urine Glucose (UA) Negative Urine Ketones Negative Urine Blood Negative Urine Nitrite Negative Urine Bilirubin Negative Urine Urobilinogen Negative Ur Leukocyte Esterase Negative Stool Occult Blood 05/14/18 05/14/18 05:12 05:12 WBC 7.0 RBC 3.87 Hgb 11.2 Hct 34.7 MCV 89.5 MCH 28.8 MCHC 32.2 RDW 15.9 H Plt Count 136 D MPV 9.5 Absolute Neuts (auto) Neutrophils % Lymphocytes % Monocytes % Eosinophils % Basophils % Nucleated RBC % PT with INR INR Sodium 142 Potassium 4.4 Chloride 114 H Carbon Dioxide 23 Anion Gap 5 L BUN 54 H Creatinine 2.1 H Creat Clearance w eGFR 22.49 Random Glucose 109 H Lactic Acid Calcium 8.2 L Phosphorus Magnesium Total Bilirubin AST ALT Alkaline Phosphatase Troponin I B-Natriuretic Peptide Total Protein Albumin Lipase Urine Color Urine Appearance Urine pH Ur Specific [place] Urine Protein Urine Glucose (UA) Urine Ketones Urine Blood Urine Nitrite Urine Bilirubin Urine Urobilinogen Ur Leukocyte Esterase Stool Occult Blood Current Medications Generic Name Dose Route Start Last Admin Trade Name Freq PRN Reason Stop Dose Admin Albuterol Sulfate 2 puff 05/13/18 20:57 Ventolin Hfa Inhaler - IH Q4H PRN ASTHMA Apixaban 5 mg 05/13/18 22:00 05/14/18 11:26 Eliquis - PO 5 mg BID PK Administration Atorvastatin Calcium 20 mg 05/14/18 22:00 Lipitor - PO HS PK Lisinopril 40 mg 05/14/18 10:00 05/14/18 11:26 Prinivil PO 40 mg DAILY PK Administration Ondansetron HCl 4 mg 05/13/18 19:44 Zofran Injection IVPUSH Q6H PRN NAUSEA Pantoprazole Sodium 40 mg 05/14/18 10:00 05/14/18 11:27 Protonix - PO 40 mg DAILY PK Administration Sertraline HCl 50 mg 05/14/18 10:00 05/14/18 11:27 Zoloft - PO 50 mg DAILY PK Administration CXR - clearing of congestion compared to prior study. ASSESSMENT/PLAN 82 year old female with Chronic Diastoic CHF, Moderate to Severe Aortic Stenosis , COPD, HTN, HLD, DM 2, Asthma, Atrial Fibrillation (on Eliquis), presented to ED with several day history of increasing SOB, cough, loose stool. She recently completed a course of Abx for UTI. 1. Diarrhea Unclear whether she has had any episodes since admission. Will send for Cdiff if watery stool Afebrile, Hemodynamically stable without abdominal discomfort or vomiting. No melena/hematochezia. 2. SARA on CKD 3 Creat 03/13 - 1.2, currently 2.1 Renal US requested. Patient's Urologist Dr. Barboza will follow. Lasix/Spironolactone held. If no improvement in renal function with oral hydration and no obstruction on US , will consider gentle IV hydration if Nephrology agrees. 3. Chronic Diastolic CHF with Moderate to Severe No evidence of fluid overload. Lasix and Spironolactone held currently. Given both IV fluids and Lasix in ED for unclear reasons. Continue BB, FLORENCIO-I 4. Atrial Fibrillation with bradycardia. Will reduce BB dose to Nebivolol 10mg bid. Continue Eliquis. 5. HTN - Continue Lisinopril, Nebivolol (reduced dose) 6. DM 2 - Novolog SSI. DVT Px - on Eliquis. Visit type - Emergency Visit Emergency Visit: Yes ED Registration Date: 05/13/18 Care time: The patient presented to the Emergency Department on the above date and was hospitalized for further evaluation of their emergent condition. - New Patient This patient is new to me today: Yes Date on this admission: 05/14/18 - Critical Care Critical Care patient: No - Discharge Referral Referred to [facility] Med P.C.: No
[2018-05-14] MEDS: INSULIN SLIDING SCALE (NOVOLOG) 1 VIAL SQ SCH ×2 (17:07→21:20)
[2018-05-14 17:59] VITALS: BMI 30.4
--- NOTE | 2018-05-14 18:08 | CONSULT ---
Consult - text type - Consultation Consultation Note: Renal Consult for SARA This is a 82 year old woman with hx of CKD (baseline Cr 1.2 to 1.6), COPD, CHF, HTN, HLD, DM who presented with diarrhea and found to have SARA. Pt reports having loose stools for 4-5 days wit 4-6 loose stools daily. Oral intake has been normal. Was on FLORENCIO/Adlactone and Lasix during this time as well. No N/V. No CP or sob at the present time. Making urine. No dysuria, fever, chills. Pt follows with Dr. Carol Ely for CKD PMhx: as above Allergies: Cipro Family Hx: NC Social Hx: No T/A/D ROS:as per HPI Home Medications Medication Instructions Recorded Lisinopril [Zestril] 40 mg PO DAILY 12/29/16 Simvastatin 40 mg PO DAILY 12/29/16 Omeprazole Magnesium [Prilosec Otc] 40 mg PO DAILY 09/06/17 Sertraline HCl [Zoloft -] 50 mg PO DAILY 09/09/17 Apixaban [Eliquis -] 5 mg PO BID #0 tablet 09/27/17 Albuterol Sulfate [Proair 90 mcg IH Q4H PRN 02/27/18 Respiclick] Nebivolol [Bystolic -] 20 mg PO BID 15 Days #30 tab 03/10/18 Spironolactone [Aldactone] 50 mg PO DAILY 15 Days #15 tablet 03/11/18 Furosemide [Lasix] 60 mg PO DAILY 05/13/18 Vital Signs Temperature 98.3 F 05/14/18 17:50 Pulse Rate 52 L 05/14/18 17:50 Respiratory Rate 20 05/14/18 17:50 Blood Pressure 122/41 L 05/14/18 17:50 O2 Sat by Pulse Oximetry (%) 95 05/14/18 15:17 NAD awake and alert neck supple, no JVD RRR CTA soft NT/ND No LE edema CBC, BMP 05/14/18 05:12 05/14/18 05:12 Current Medications Albuterol Sulfate (Ventolin Hfa Inhaler -) 2 puff IH Q4H PRN PRN Reason: ASTHMA Apixaban (Eliquis -) 5 mg PO BID PK Last Admin: 12/19/18 11:26 Dose: 5 mg Atorvastatin Calcium (Lipitor -) 20 mg PO HS [facility] Insulin Aspart (Novolog Vial Sliding Scale -) 1 vial SQ ACHS [facility]; Protocol Last Admin: 05/14/18 17:07 Dose: Not Given Lisinopril (Prinivil) 40 mg PO DAILY [facility] Last Admin: 05/14/18 11:26 Dose: 40 mg Nebivolol (Bystolic -) 10 mg PO BID [facility] Ondansetron HCl (Zofran Injection) 4 mg IVPUSH Q6H PRN PRN Reason: NAUSEA Pantoprazole Sodium (Protonix -) 40 mg PO DAILY [facility] Last Admin: 05/14/18 11:27 Dose: 40 mg Sertraline HCl (Zoloft -) 50 mg PO DAILY [facility] Last Admin: 05/14/18 11:27 Dose: 50 mg 82 year old woman with hx of CKD (baseline Cr 1.2 to 1.6), COPD, CHF, HTN, HLD, DM who presented with diarrhea and found to have SARA. #SARA on CKD secondary to volume depletion in setting of diarrhea + FLORENCIO/Diuretics #Diarrhea #Hx fo CHF, now hypovolemic #Hypertension #DM CHeck Urine studies for FeNa, FeUrea US shows no obstruction will give Trial of mild IVF hydration Hold FLORENCIO/Aldactone/Lasix for now Trend renal function and electrolytes BP is WNL, continue bystolic thank you Will follow
[2018-05-14] MEDS ORDERED: SODIUM CHLORIDE 1,000 ML IV SCH (18:15)
[2018-05-14] MEDS ORDERED: INSULIN (NOVOLOG) ASPART 100 UNITS/ML 10ML VIAL ONE (21:09)
[2018-05-14] MEDS: ATORVASTATIN CA 20 MG TABLET (FP) PO SCH (21:19)
[2018-05-14] MEDS: NEBIVOLOL 10 MG TABLET (FP) PO SCH (21:19)
[2018-05-15] MEDS: INSULIN SLIDING SCALE (NOVOLOG) 1 VIAL SQ SCH ×4 (06:18→21:42)
[2018-05-15 06:46] LABS: BASO % 0.5 % (0-2.0); EOS % 2.7 % (0-4.5); HEMATOCRIT 29.8 % (32.4-45.2); HEMOGLOBIN 10.3 GM/dL (10.7-15.3); LYMPH % 22.5 % (8-40); MCH 30.7 pg (25.7-33.7); MCHC 34.6 g/dl (32.0-36.0); MEAN CELL VOLUME 88.6 fl (80-96); MEAN PLT VOLUME 10.1 fl (7.5-11.1); NEUT % 63.3 % (42.8-82.8); PLATELET COUNT 133 K/MM3 (134-434); RBC 3.36 M/mm3 (3.60-5.2); RDW 16.2 % (11.6-15.6); WHITE BLOOD COUNT 6.3 K/mm3 (4.0-10.0)
[2018-05-15 07:07] LABS: ALBUMIN 2.8 g/dl (3.4-5.0); ALK PHOS 47 U/L (45-117); ANION GAP 6 MMOL/L (8-16); BILIRUBIN,TOTAL 0.3 mg/dL (0.2-1); BLOOD UREA NITROGEN 40 mg/dL (7-18); CALCIUM 8.2 mg/dL (8.5-10.1); CHLORIDE 116 mmol/L (98-107); CO2 22 mmol/L (21-32); CREATININE 1.4 mg/dL (0.55-1.3); GLUCOSE,RANDOM 104 mg/dL (74-106); MAGNESIUM 1.8 mg/dL (1.8-2.4); PHOSPHOROUS 3.4 mg/dL (2.5-4.9); POTASSIUM 4.5 mmol/L (3.5-5.1); SGOT/AST 9 U/L (15-37); SGPT/ALT 15 U/L (13-61); SODIUM 144 mmol/L (136-145); TOT PROT 5.2 g/dl (6.4-8.2)
[2018-05-15] MEDS: PANTOPRAZOLE 40 MG TABLET (FP) PO SCH (10:14)
[2018-05-15] MEDS: SERTRALINE HCL 50 MG TABLET (FP) PO SCH (10:14)
[2018-05-15] MEDS: APIXABAN 5 MG TABLET PO SCH ×2 (10:14→21:42)
[2018-05-15] MEDS: NEBIVOLOL 10 MG TABLET (FP) PO SCH (10:15)
--- NOTE | 2018-05-15 11:17 | PN ---
Progress Note (short form) - Note Progress Note: No longer SOB. No further diarrhea since admission. No abdo pain/nausea/ vomiting. No cough/sputum/hemoptysis/orthopnea Afebrile, Hemodynamically stable. Last Vital Signs Temp Pulse Resp BP Pulse Ox 98.1 F 58 L 18 128/50 L 94 L 05/15/18 05:00 05/15/18 05:00 05/15/18 05:00 05/15/18 05:00 05/14/18 21:00 HEENT- Atraumatic, Normocephalic. No pharyngeal erythema/exudate Heart - S1, S2, SM Lungs - decreased air entry bibasally Abdomen - soft, non-tender. Bowel Sounds normal. Extremities - trace edema LEs. No calf tenderness. Laboratory Results - last 24 hr 05/14/18 05/14/18 05/14/18 16:57 19:00 19:00 WBC RBC Hgb Hct MCV MCH MCHC RDW Plt Count MPV Absolute Neuts (auto) Neutrophils % Lymphocytes % Monocytes % Eosinophils % Basophils % Nucleated RBC % Sodium Potassium Chloride Carbon Dioxide Anion Gap BUN Creatinine Creat Clearance w eGFR POC Glucometer 104.54923 Random Glucose Calcium Phosphorus Magnesium Total Bilirubin AST ALT Alkaline Phosphatase Total Protein Albumin U Random Total Protein 11 Ur Random Sodium 46 Ur Random Urea Nitrogn Urine Creatinine 05/14/18 05/14/18 05/14/18 19:00 19:00 21:13 WBC RBC Hgb Hct MCV MCH MCHC RDW Plt Count MPV Absolute Neuts (auto) Neutrophils % Lymphocytes % Monocytes % Eosinophils % Basophils % Nucleated RBC % Sodium Potassium Chloride Carbon Dioxide Anion Gap BUN Creatinine Creat Clearance w eGFR POC Glucometer 162 Random Glucose Calcium Phosphorus Magnesium Total Bilirubin AST ALT Alkaline Phosphatase Total Protein Albumin U Random Total Protein Ur Random Sodium Ur Random Urea Nitrogn 769 Urine Creatinine 97.0 H 05/15/18 05/15/18 05/15/18 05:30 05:30 05:49 WBC 6.3 RBC 3.36 L Hgb 10.3 L Hct 29.8 L MCV 88.6 MCH 30.7 MCHC 34.6 RDW 16.2 H Plt Count 133 L MPV 10.1 Absolute Neuts (auto) 4.0 Neutrophils % 63.3 Lymphocytes % 22.5 D Monocytes % 11.0 H Eosinophils % 2.7 Basophils % 0.5 Nucleated RBC % 0 Sodium 144 Potassium 4.5 Chloride 116 H Carbon Dioxide 22 Anion Gap 6 L BUN 40 H Creatinine 1.4 H Creat Clearance w eGFR 35.91 POC Glucometer 124 Random Glucose 104 Calcium 8.2 L Phosphorus 3.4 Magnesium 1.8 Total Bilirubin 0.3 AST 9 L ALT 15 Alkaline Phosphatase 47 Total Protein 5.2 L Albumin 2.8 L U Random Total Protein Ur Random Sodium Ur Random Urea Nitrogn Urine Creatinine Current Medications Generic Name Dose Route Start Last Admin Trade Name Freq PRN Reason Stop Dose Admin Albuterol Sulfate 2 puff 05/13/18 20:57 Ventolin Hfa Inhaler - IH Q4H PRN ASTHMA Apixaban 5 mg 05/13/18 22:00 05/15/18 10:14 Eliquis - PO 5 mg BID PK Administration Atorvastatin Calcium 20 mg 05/14/18 22:00 05/14/18 21:19 Lipitor - PO 20 mg HS PK Administration Sodium Chloride 1,000 mls @ 75 mls/hr 05/14/18 18:15 05/14/18 21:00 Normal Saline - IV 05/15/18 12:14 75 mls/hr ASDIR PK Administration Insulin Aspart 1 vial 05/14/18 16:30 05/15/18 06:18 Novolog Vial Sliding Scale - SQ 1 units ACHS PK Administration Protocol Lisinopril 40 mg 05/14/18 10:00 05/14/18 11:26 Prinivil PO 40 mg DAILY PK Administration Ondansetron HCl 4 mg 05/13/18 19:44 05/14/18 21:22 Zofran Injection IVPUSH 4 mg Q6H PRN Administration NAUSEA Pantoprazole Sodium 40 mg 05/14/18 10:00 05/15/18 10:14 Protonix - PO 40 mg DAILY PK Administration Sertraline HCl 50 mg 05/14/18 10:00 05/15/18 10:14 Zoloft - PO 50 mg DAILY PK Administration CXR - clearing of congestion compared to prior study. ASSESSMENT/PLAN 82 year old female with Chronic Diastoic CHF, Moderate to Severe Aortic Stenosis , COPD, HTN, HLD, DM 2, Asthma, Atrial Fibrillation (on Eliquis), presented to ED with several day history of increasing SOB, cough, loose stool. She recently completed a course of Abx for UTI. 1. Diarrhea - resolved. No further episodes since admission Will send for Cdiff if watery stool - otherwise no need for further work-up. Afebrile, Hemodynamically stable without abdominal discomfort or vomiting. No melena/hematochezia. 2. SARA on CKD 3 Improving, BUN/Creat down from 54/2.1 to 40/1.4 Renal US - no structural abnormalities, no obstruction. Lasix/Spironolactone held in favor of gentle IV fluids - Nephrology following. 3. Chronic Diastolic CHF with Moderate to Severe - last Echo 03/13 No evidence of fluid overload. Lasix and Spironolactone held currently. Continue FLORENCIO-I 4. Atrial Fibrillation with Bradycardia. Still bradycardic today, down to 45 ( asymptomatic) with reduced dose of Nebivolol. Will hold BB and continue Eliquis. Will consult Cardiology re: persistent Bradycardia. 5. HTN - Continue Lisinopril. 6. DM 2 - Novolog SSI. 7. HLD - Continue Lipitor 8. COPD - Stable. Continue Albuterol prn. DVT Px - on Eliquis. GI Px - Protonix Visit type - Emergency Visit Emergency Visit: Yes ED Registration Date: 05/13/18 Care time: The patient presented to the Emergency Department on the above date and was hospitalized for further evaluation of their emergent condition. - New Patient This patient is new to me today: No - Critical Care Critical Care patient: No - Discharge Referral Referred to [facility] Med P.C.: No
--- NOTE | 2018-05-15 11:34 | CON.CARD ---
Consult Consult Specialty:: Cardiology Referred by:: Hospitalist Medicine Reason for Consultation:: Slow afib - History of Present Illness Chief Complaint: Dyspnea, diarrhea History of Present Illness: 82 year old female with underlying history of CAD (non-obstructive), angina pectoris, diastolic LV dysfunction with history of congestive heart failure, mitral valve disease with mitral valve regurgitation, aortic valve disease with moderate aortic valve stenosis, tricuspid valve disease with tricuspid valve regurgitation and pulmonary hypertension, persistent atrial fibrillation on Eliquis, HTN/HCVD, type 2 diabetes mellitus, hypercholesterolemia, COPD, anemia , and right hip replacement admitted with multiple complaints including cough, dyspnea and nonbloody loose stools all since resolved. Reports being at baseline exercise tolerance, noted to be in slow afib 30-40's. She denies bilateral LE swelling, orthopnea, chest tightness, palpitations, near or true syncope, PND. Last seen in office 04/02/2018. Allergies: NKA Past surgical history: Rip hip replacement in 2007 and January 2017 Social history: No reported alcohol, cigarette, or drug use. PCP: Dr. Pompa - History Source History Provided By: Patient Limitations to Obtaining History: No Limitations - Past Medical History Cardio/Vascular: Yes: AFIB, Aortic Stenosis, CAD, CHF, HTN, Hyperlipdemia, Mitral Insufficiency, Murmur, Pulmonary Hypertension Pulmonary: Yes: Asthma, COPD, O2 Dependent, Pneumonia ...: No Musculoskeletal: Yes: Osteoarthritis (had hip and knee replacement, still with some healing problems ), Other Endocrine: Yes: Diabetes Mellitus - Past Surgical History Past Surgical History: Yes: Joint Replacement - Alcohol/Substance Use Hx Alcohol Use: No History of Substance Use: reports: None - Smoking History Smoking history: Former smoker Have you smoked in the past 12 months: No Aproximately how many cigarettes per day: 0 If you are a former smoker, when did you quit?: many years ago - Social History Usual Living Arrangement: Alone ADL: Support Services History of Recent Travel: No Home Medications - Allergies Allergies/Adverse Reactions: Allergies Allergy/AdvReac Type Severity Reaction Status Date / Time ciprofloxacin [From Cipro] Allergy Verified 05/13/18 15:43 ciprofloxacin HCl Allergy Verified 05/13/18 15:43 [From Cipro] - Home Medications Home Medications: Ambulatory Orders Lisinopril [Zestril] 40 mg PO DAILY 12/29/16 Simvastatin 40 mg PO DAILY 12/29/16 Omeprazole Magnesium [Prilosec Otc] 40 mg PO DAILY 09/06/17 Sertraline HCl [Zoloft -] 50 mg PO DAILY 09/09/17 Apixaban [Eliquis -] 5 mg PO BID #0 tablet 09/27/17 Albuterol Sulfate [Proair Respiclick] 90 mcg IH Q4H PRN 02/27/18 Nebivolol [Bystolic -] 20 mg PO BID 15 Days #30 tab 03/10/18 Spironolactone [Aldactone] 50 mg PO DAILY 15 Days #15 tablet 03/11/18 Furosemide [Lasix] 60 mg PO DAILY 05/13/18 Family Disease History - Family Disease History Family Disease History: Other: Daughter (alive and well) Review of Systems - Review of Systems Respiratory: reports: SOB Gastrointestinal: reports: Diarrhea Vital Signs: Vital Signs Temperature 98.1 F 05/15/18 05:00 Pulse Rate 58 L 05/15/18 05:00 Respiratory Rate 18 05/15/18 05:00 Blood Pressure 128/50 L 05/15/18 05:00 O2 Sat by Pulse Oximetry (%) 94 L 05/14/18 21:00 Constitutional: Yes: No Distress, Calm Neck: Yes: Supple Respiratory: Yes: Regular, Diminished, On Nasal O2 Gastrointestinal: Yes: Normal Bowel Sounds, Soft, Abdomen, Obese Cardiovascular: Yes: Bradycardia, Pulse Irregular JVD: No Carotid Bruit: No Heart Sounds: Yes: S1, S2 Murmur: Yes: Systolic Murmur, Grade 2 Edema: No - Other Data Labs, Other Data: CBC, BMP 05/15/18 05:30 05/15/18 05:30 INR, PTT INR 1.82 (0.83-1.09) H 05/13/18 17:30 Slow afib @ 50 with PRWP Tele: slow sfib 30-40's Ejection Fraction %: LVEF > or = 40 % Imaging - Results Chest X-ray: Report Reviewed (Improved congestion) Problem List - Problems (1) Atrial fibrillation with slow ventricular response Code(s): I48.91 - UNSPECIFIED ATRIAL FIBRILLATION (2) [id number] kidney injury Code(s): N17.9 - ACUTE KIDNEY FAILURE, UNSPECIFIED; N18.9 - CHRONIC KIDNEY DISEASE, UNSPECIFIED Qualifiers: Acute renal failure type: unspecified Chronic kidney disease stage: stage 2 (mild) Qualified Code(s): N17.9 - Acute kidney failure, unspecified; N18.2 - Chronic kidney disease, stage 2 (mild) (3) Chronic kidney disease (CKD) Code(s): N18.9 - CHRONIC KIDNEY DISEASE, UNSPECIFIED Qualifiers: Chronic kidney disease stage: stage 2 (mild) Qualified Code(s): N18.2 - Chronic kidney disease, stage 2 (mild) (4) Diastolic dysfunction without heart failure Code(s): I51.9 - HEART DISEASE, UNSPECIFIED (5) HTN (hypertension) Code(s): I10 - ESSENTIAL (PRIMARY) HYPERTENSION Qualifiers: Hypertension type: essential hypertension Qualified Code(s): I10 - Essential (primary) hypertension (6) Aortic valve stenosis Code(s): I35.0 - NONRHEUMATIC AORTIC (VALVE) STENOSIS Qualifiers: Cardiac valve disease etiology: nonrheumatic Qualified Code(s): I35.0 - Nonrheumatic aortic (valve) stenosis (7) COPD (chronic obstructive pulmonary disease) Code(s): J44.9 - CHRONIC OBSTRUCTIVE PULMONARY DISEASE, UNSPECIFIED Qualifiers: COPD type: unspecified COPD Qualified Code(s): J44.9 - Chronic obstructive pulmonary disease, unspecified (8) Diabetes mellitus Code(s): E11.9 - TYPE 2 DIABETES MELLITUS WITHOUT COMPLICATIONS Qualifiers: Diabetes mellitus type: type 2 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 Persistent atrial fibrillation with slow ventricular response, ? sick sinus syndrome [id number] score of 7 on Eliquis 2. Diastolic dysfunction with h/o failure and moderate-severe aortic stenosis 3. COPD 4. Type 2 DM 5. Hypertensive heart disease 6. Hypercholesterolemia 7. Acute on chronic kidney disease referable to volume depletion improving with hydration 8. Anemia 9. Degenerative joint disease post right THR 10. Diarrhea since resolved r/o c. diff PLAN: 1. Holding Lasix 60 qd and Aldactone 50 qd pending renal function recovery 2. Consider right and left heart cath as outpatient to further assess and possible TAVR entertained if patient agrees to proceed 3. Observe HR response off Bystolic for now, may rechallenge at lower dose with hold parameters, resume Lisinopril 40 QD as renal fxn stabilizes, Eliquis 5 BID , Lipitor 20 QHS and resume Amlodipine 10 QD 4. Bronchodilator, O2 as needed 5. Thank you for consultatiove opportunity
--- NOTE | 2018-05-15 12:35 | PN ---
Progress Note (short form) - Note Progress Note: Renal follow up for SARA on CKD Pt seen and examined at the bedside no acute complaints no sob, cp, abd pain no further diarrhea making urine and tolerating oral diet Vital Signs Temperature 97.7 F 05/15/18 09:00 Pulse Rate 52 L 05/15/18 09:00 Respiratory Rate 18 05/15/18 05:00 Blood Pressure 159/59 L 05/15/18 09:00 O2 Sat by Pulse Oximetry (%) 96 05/15/18 09:00 Intake & Output 05/12/18 05/13/18 05/14/18 05/15/18 23:59 23:59 23:59 23:59 Intake Total 1390 990 Balance 1390 990 Weight 117.027 kg 73.482 kg 74.571 kg NAD awake and alert neck supple CTA no LE edema CBC, BMP 05/15/18 05:30 05/15/18 05:30 Current Medications Albuterol Sulfate (Ventolin Hfa Inhaler -) 2 puff IH Q4H PRN PRN Reason: ASTHMA Apixaban (Eliquis -) 5 mg PO BID [facility] Last Admin: 05/15/18 10:14 Dose: 5 mg Atorvastatin Calcium (Lipitor -) 20 mg PO HS [facility] Last Admin: 05/14/18 21:19 Dose: 20 mg Insulin Aspart (Novolog Vial Sliding Scale -) 1 vial SQ ACHS [facility]; Protocol Last Admin: 05/15/18 12:19 Dose: Not Given Lisinopril (Prinivil) 40 mg PO DAILY [facility] Last Admin: 05/14/18 11:26 Dose: 40 mg Ondansetron HCl (Zofran Injection) 4 mg IVPUSH Q6H PRN PRN Reason: NAUSEA Last Admin: 05/14/18 21:22 Dose: 4 mg Pantoprazole Sodium (Protonix -) 40 mg PO DAILY [facility] Last Admin: 05/15/18 10:14 Dose: 40 mg Sertraline HCl (Zoloft -) 50 mg PO DAILY [facility] Last Admin: 05/15/18 10:14 Dose: 50 mg 82 year old woman with hx of CKD (baseline Cr 1.2 to 1.6), COPD, CHF, HTN, HLD, DM who presented with diarrhea and found to have SARA. #SARA on CKD secondary to volume depletion in setting of diarrhea + FLORENCIO/Diuretics #Diarrhea #Hx fo CHF, now hypovolemic #Hypertension #DM Renal function improved s/p IVF maintain off IVF now, would hold diuretics until tomorrow to ensure that renal function is stable can resume ACEi tomorrow as well Monitor BP, if elevated can consider using CCB may need to hold bystolic given low HR diarrhea now resolved thank you Will follow
[2018-05-15] MEDS: amLODIPine BESYLATE 10 MG TABLET (FP) PO SCH (13:40)
[2018-05-15] MEDS ORDERED: INSULIN (NOVOLOG) ASPART 100 UNITS/ML 10ML VIAL ONE (21:11)
[2018-05-15] MEDS: ATORVASTATIN CA 20 MG TABLET (FP) PO SCH (21:42)
[2018-05-16] MEDS: INSULIN SLIDING SCALE (NOVOLOG) 1 VIAL SQ SCH ×4 (06:20→22:46)
[2018-05-16 07:47] LABS: ANION GAP 7 MMOL/L (8-16); BLOOD UREA NITROGEN 33 mg/dL (7-18); CALCIUM 8.5 mg/dL (8.5-10.1); CHLORIDE 113 mmol/L (98-107); CO2 23 mmol/L (21-32); CREATININE 1.3 mg/dL (0.55-1.3); GLUCOSE,RANDOM 106 mg/dL (74-106); PHOSPHOROUS 3.4 mg/dL (2.5-4.9); POTASSIUM 4.6 mmol/L (3.5-5.1); SODIUM 143 mmol/L (136-145)
[2018-05-16] MEDS ORDERED: FUROSEMIDE 20 MG TABLET (FP) ONE (09:57)
[2018-05-16] MEDS ORDERED: FUROSEMIDE 40 MG TABLET (FP) ONE (09:57)
[2018-05-16] MEDS ORDERED: FUROSEMIDE 40 MG TABLET (FP) PO SCH (10:00)
--- NOTE | 2018-05-16 10:37 | PN ---
Progress Note, Physician History of Present Illness: Reports being at baseline exercise tolerance, noted to be in slow afib 40-50's off Bystolic. She denies bilateral LE swelling, orthopnea, chest tightness, palpitations, near or true syncope, PND. Diarrhea has since resolved. Allergies: NKA Past surgical history: Rip hip replacement in 2007 and January 2017 Social history: No reported alcohol, cigarette, or drug use. PCP: Dr. Pompa - Current Medication List Current Medications: Active Medications Albuterol Sulfate (Ventolin Hfa Inhaler -) 2 puff IH Q4H PRN PRN Reason: ASTHMA Amlodipine Besylate (Norvasc -) 10 mg PO DAILY [facility] Last Admin: 05/15/18 13:40 Dose: 10 mg Apixaban (Eliquis -) 5 mg PO BID [facility] Last Admin: 05/15/18 21:42 Dose: 5 mg Atorvastatin Calcium (Lipitor -) 20 mg PO HS [facility] Last Admin: 05/15/18 21:42 Dose: 20 mg Furosemide 20 mg/ Furosemide (40 mg) 60 mg PO DAILY [facility] Insulin Aspart (Novolog Vial Sliding Scale -) 1 vial SQ [facility]; Protocol Last Admin: 05/16/18 06:20 Dose: 1 units Lisinopril (Prinivil) 40 mg PO DAILY [facility] Last Admin: 05/14/18 11:26 Dose: 40 mg Ondansetron HCl (Zofran Injection) 4 mg IVPUSH Q6H PRN PRN Reason: NAUSEA Last Admin: 05/14/18 21:22 Dose: 4 mg Pantoprazole Sodium (Protonix -) 40 mg PO DAILY [facility] Last Admin: 05/15/18 10:14 Dose: 40 mg Sertraline HCl (Zoloft -) 50 mg PO DAILY [facility] Last Admin: 05/15/18 10:14 Dose: 50 mg - Objective Vital Signs: Vital Signs Temperature 98.1 F 05/16/18 05:00 Pulse Rate 56 L 05/16/18 05:00 Respiratory Rate 18 05/16/18 05:00 Blood Pressure 147/64 05/16/18 05:00 O2 Sat by Pulse Oximetry (%) 96 05/15/18 21:00 Constitutional: Yes: No Distress, Calm, Thin Neck: Yes: Supple Cardiovascular: Yes: Bradycardia, Pulse Irregular, Murmur (2/6 SM) Respiratory: Yes: Regular, Diminished Gastrointestinal: Yes: Normal Bowel Sounds, Soft Edema: No Labs: CBC, BMP 05/15/18 05:30 05/16/18 05:30 INR, PTT INR 1.82 (0.83-1.09) H 05/13/18 17:30 - ....Imaging EKG: Report Reviewed (Tele: Slow afib 40-50's) Problem List - Problems (1) Atrial fibrillation with slow ventricular response Code(s): I48.91 - UNSPECIFIED ATRIAL FIBRILLATION (2) [id number] kidney injury Code(s): N17.9 - ACUTE KIDNEY FAILURE, UNSPECIFIED; N18.9 - CHRONIC KIDNEY DISEASE, UNSPECIFIED Qualifiers: Acute renal failure type: unspecified Chronic kidney disease stage: stage 2 (mild) Qualified Code(s): N17.9 - Acute kidney failure, unspecified; N18.2 - Chronic kidney disease, stage 2 (mild) (3) Chronic kidney disease (CKD) Code(s): N18.9 - CHRONIC KIDNEY DISEASE, UNSPECIFIED Qualifiers: Chronic kidney disease stage: stage 2 (mild) Qualified Code(s): N18.2 - Chronic kidney disease, stage 2 (mild) (4) Diastolic dysfunction without heart failure Code(s): I51.9 - HEART DISEASE, UNSPECIFIED (5) HTN (hypertension) Code(s): I10 - ESSENTIAL (PRIMARY) HYPERTENSION Qualifiers: Hypertension type: essential hypertension Qualified Code(s): I10 - Essential (primary) hypertension (6) Aortic valve stenosis Code(s): I35.0 - NONRHEUMATIC AORTIC (VALVE) STENOSIS Qualifiers: Cardiac valve disease etiology: nonrheumatic Qualified Code(s): I35.0 - Nonrheumatic aortic (valve) stenosis (7) COPD (chronic obstructive pulmonary disease) Code(s): J44.9 - CHRONIC OBSTRUCTIVE PULMONARY DISEASE, UNSPECIFIED Qualifiers: COPD type: unspecified COPD Qualified Code(s): J44.9 - Chronic obstructive pulmonary disease, unspecified (8) Diabetes mellitus Code(s): E11.9 - TYPE 2 DIABETES MELLITUS WITHOUT COMPLICATIONS Qualifiers: Diabetes mellitus type: type 2 Diabetes mellitus director of teacher education insulin use: without shelter use Diabetes mellitus complication status: without complication Qualified Code(s): E11.9 - Type 2 diabetes mellitus without complications (9) Hypercholesterolemia Code(s): E78.00 - PURE HYPERCHOLESTEROLEMIA, UNSPECIFIED Assessment/Plan 09/10/2017 Echo: Normal LV size and fxn, LVEF 65%, mild cLVH, abnl LV compliance , mod TRINI, mild MR, TR, mod MG 25 mmHg 02/28/2018 Echo: Normal LV size and fxn LVEF 55-60%, restrictive physiology, mild LAE, mild MR, TR RVSP 40-40 mmHg, mod-severe CHARI 0.80 cm^2, MG 32 mmHg 1. Persistent atrial fibrillation with slow ventricular response, ? sick sinus syndrome [id number] score of 7 on Eliquis 2. Diastolic dysfunction with h/o failure and moderate-severe aortic stenosis 3. COPD 4. Type 2 DM 5. Hypertensive heart disease 6. Hypercholesterolemia 7. Acute on chronic kidney disease referable to volume depletion improving with hydration 8. Anemia 9. Degenerative joint disease post right THR 10. Diarrhea since resolved r/o c. diff PLAN: 1. Resume Lasix 60 qd and Aldactone 50 qd as renal function recovers 2. Consider right and left heart cath as outpatient to further assess and possible TAVR entertained if patient agrees to proceed 3. Observe HR response off Bystolic for now, resume Lisinopril 40 QD as renal fxn stabilizes, continue Eliquis 5 BID, Lipitor 20 QHS and Amlodipine 10 QD 4. Bronchodilator, O2 as needed
[2018-05-16] MEDS: FUROSEMIDE 20 MG, FUROSEMIDE 40 MG PO SCH (10:58)
[2018-05-16] MEDS: SERTRALINE HCL 50 MG TABLET (FP) PO SCH (10:58)
[2018-05-16] MEDS: APIXABAN 5 MG TABLET PO SCH ×2 (10:59→22:47)
[2018-05-16] MEDS: PANTOPRAZOLE 40 MG TABLET (FP) PO SCH (10:59)
[2018-05-16] MEDS: amLODIPine BESYLATE 10 MG TABLET (FP) PO SCH (10:59)
[2018-05-16] MEDS: LISINOPRIL 20 MG TABLET (FP) PO SCH (10:59)
--- NOTE | 2018-05-16 12:36 | PN ---
Progress Note (short form) - Note Progress Note: Renal follow up for SARA on CKD Pt seen and examined at the bedside no acute complaints feels much better, no longer having diarrhea no sob, cp, abd pain Vital Signs Temperature 97.8 F 05/16/18 09:00 Pulse Rate 54 L 05/16/18 09:00 Respiratory Rate 18 05/16/18 09:00 Blood Pressure 127/50 L 05/16/18 09:00 O2 Sat by Pulse Oximetry (%) 96 05/16/18 09:00 NAD awake and alert neck supple CTA no LE edema CBC, BMP 05/15/18 05:30 05/16/18 05:30 Current Medications Albuterol Sulfate (Ventolin Hfa Inhaler -) 2 puff IH Q4H PRN PRN Reason: ASTHMA Amlodipine Besylate (Norvasc -) 10 mg PO DAILY [facility] Last Admin: 05/16/18 10:59 Dose: 10 mg Apixaban (Eliquis -) 5 mg PO BID [facility] Last Admin: 05/16/18 10:59 Dose: 5 mg Atorvastatin Calcium (Lipitor -) 20 mg PO HS [facility] Last Admin: 05/15/18 21:42 Dose: 20 mg Furosemide 20 mg/ Furosemide (40 mg) 60 mg PO DAILY [facility] Last Admin: 05/16/18 10:58 Dose: 60 mg Insulin Aspart (Novolog Vial Sliding Scale -) 1 vial SQ ACHS [facility]; Protocol Last Admin: 05/16/18 12:24 Dose: 2 units Lisinopril (Prinivil) 40 mg PO DAILY [facility] Last Admin: 05/16/18 10:59 Dose: 40 mg Ondansetron HCl (Zofran Injection) 4 mg IVPUSH Q6H PRN PRN Reason: NAUSEA Last Admin: 05/14/18 21:22 Dose: 4 mg Pantoprazole Sodium (Protonix -) 40 mg PO DAILY [facility] Last Admin: 05/16/18 10:59 Dose: 40 mg Sertraline HCl (Zoloft -) 50 mg PO DAILY [facility] Last Admin: 05/16/18 10:58 Dose: 50 mg Spironolactone (Aldactone -) 50 mg PO DAILY [facility] 82 year old woman with hx of CKD (baseline Cr 1.2 to 1.6), COPD, CHF, HTN, HLD, DM who presented with diarrhea and found to have SARA. #SARA on CKD secondary to volume depletion in setting of diarrhea + FLORENCIO/Diuretics #Diarrhea #Hx fo CHF, now hypovolemic #Hypertension #DM Renal function improved to baseline now can resume oral lasix/aldactone/lisinopril as renal function at baseline and diarrhea is resolved Cardiology following regarding HR control Can follow up with Dr. Ely as an outpatient for further monitoring of renal function Will sign off case at this time please call with any questions or concerns Rory Barboza DO
--- NOTE | 2018-05-16 18:13 | PN ---
Progress Note (short form) - Note Progress Note: SUBJECTIVE Feeling much better - No further dyspnea or diarrhea since admission. No abdo pain/nausea/vomiting. No cough/sputum/hemoptysis/orthopnea OBJECTIVE Afebrile, Hemodynamically stable. Last Vital Signs Temp Pulse Resp BP Pulse Ox 98 F 87 18 118/69 96 05/16/18 14:29 05/16/18 14:29 05/16/18 14:29 05/16/18 14:29 05/16/18 09:00 HEENT- Atraumatic, Normocephalic. No pharyngeal erythema/exudate Heart - S1, S2, SM Lungs - decreased air entry bibasally Abdomen - soft, non-tender. Bowel Sounds normal. Extremities - minimal LE edema. No calf tenderness. Laboratory Results - last 24 hr 05/15/18 05/16/18 05/16/18 21:03 05:30 05:43 Sodium 143 Potassium 4.6 Chloride 113 H Carbon Dioxide 23 Anion Gap 7 L BUN 33 H Creatinine 1.3 Creat Clearance w eGFR 39.12 POC Glucometer 130 115 Random Glucose 106 Calcium 8.5 Phosphorus 3.4 Magnesium 2.0 05/16/18 05/16/18 12:24 17:44 Sodium Potassium Chloride Carbon Dioxide Anion Gap BUN Creatinine Creat Clearance w eGFR POC Glucometer 158 116 Random Glucose Calcium Phosphorus Magnesium Current Medications Generic Name Dose Route Start Last Admin Trade Name Freq PRN Reason Stop Dose Admin Albuterol Sulfate 2 puff 05/13/18 20:57 Ventolin Hfa Inhaler - IH Q4H PRN ASTHMA Amlodipine Besylate 10 mg 05/15/18 13:00 05/16/18 10:59 Norvasc - PO 10 mg DAILY PK Administration Apixaban 5 mg 05/13/18 22:00 05/16/18 10:59 Eliquis - PO 5 mg BID PK Administration Atorvastatin Calcium 20 mg 05/14/18 22:00 05/15/18 21:42 Lipitor - PO 20 mg HS PK Administration Furosemide 20 mg/ Furosemide 60 mg 05/16/18 10:00 05/16/18 10:58 40 mg PO 60 mg DAILY PK Administration Insulin Aspart 1 vial 05/14/18 16:30 05/16/18 12:24 Novolog Vial Sliding Scale - SQ 2 units ACHS PK Administration Protocol Lisinopril 40 mg 05/14/18 10:00 05/16/18 10:59 Prinivil PO 40 mg DAILY PK Administration Ondansetron HCl 4 mg 05/13/18 19:44 05/14/18 21:22 Zofran Injection IVPUSH 4 mg Q6H PRN Administration NAUSEA Pantoprazole Sodium 40 mg 05/14/18 10:00 05/16/18 10:59 Protonix - PO 40 mg DAILY PK Administration Sertraline HCl 50 mg 05/14/18 10:00 05/16/18 10:58 Zoloft - PO 50 mg DAILY PK Administration Spironolactone 50 mg 05/17/18 10:00 Aldactone - PO DAILY PK CXR - clearing of congestion compared to prior study. ASSESSMENT/PLAN 82 year old female with Chronic Diastoic CHF, Moderate to Severe Aortic Stenosis , COPD, HTN, HLD, DM 2, Asthma, Atrial Fibrillation (on Eliquis), presented to ED with several day history of increasing SOB, cough, loose stool. She recently completed a course of Abx for UTI. 1. Diarrhea - resolved. No further episodes since admission Afebrile, Hemodynamically stable without abdominal discomfort or vomiting. No melena/hematochezia. 2. SARA on CKD 3 secondary to dehydration/ATN due to diarrhea. Improving, BUN/Creat down from 2.1 to 1.3 Renal US - no structural abnormalities, no obstruction. Lasix/Spironolactone held in favor of gentle IV fluids since admission - IV fluids discontinued and diuretics resumed. Follow up with Dr. Ely as out-patient. 3. Chronic Diastolic CHF with Moderate to Severe - last Echo 03/13 No evidence of fluid overload. Resumed on ACEI, Lasix and Spironolactone. 4. Atrial Fibrillation with slow ventricular response. Still bradycardic today, down to 45 (asymptomatic) with reduced dose of Nebivolol. BB held. Continue Eliquis. Cardiology consulted re: persistent Bradycardia ?Sick Sinus Syndrome - for consideration of right and left heart cath as outpatient to further assess and possible TAVR. 5. HTN - Resumed on Lisinopril and Spironolactone. Continue Amlodipine. 6. DM 2 - Novolog SSI. 7. HLD - Continue Lipitor 8. COPD - Stable. Continue Albuterol prn. DVT Px - on Eliquis. GI Px - Protonix Visit type - Emergency Visit Emergency Visit: Yes ED Registration Date: 05/15/18 Care time: The patient presented to the Emergency Department on the above date and was hospitalized for further evaluation of their emergent condition. - New Patient This patient is new to me today: No - Critical Care Critical Care patient: No - Discharge Referral Referred to [facility] No
[2018-05-16] MEDS: ATORVASTATIN CA 20 MG TABLET (FP) PO SCH (22:46)
[2018-05-17] MEDS: INSULIN SLIDING SCALE (NOVOLOG) 1 VIAL SQ SCH ×4 (06:59→22:03)
[2018-05-17 08:40] LABS: ANION GAP 7 MMOL/L (8-16); BLOOD UREA NITROGEN 31 mg/dL (7-18); CALCIUM 8.4 mg/dL (8.5-10.1); CHLORIDE 110 mmol/L (98-107); CO2 24 mmol/L (21-32); CREATININE 1.3 mg/dL (0.55-1.3); GLUCOSE,RANDOM 112 mg/dL (74-106); POTASSIUM 4.3 mmol/L (3.5-5.1); SODIUM 141 mmol/L (136-145)
[2018-05-17] MEDS ORDERED: FUROSEMIDE 40 MG TABLET (FP) ONE (09:50)
[2018-05-17] MEDS ORDERED: FUROSEMIDE 20 MG TABLET (FP) ONE (09:51)
[2018-05-17] MEDS: SPIRONOLACTONE 25 MG TABLET (FP) PO SCH (10:21)
[2018-05-17] MEDS: APIXABAN 5 MG TABLET PO SCH ×2 (10:21→22:04)
[2018-05-17] MEDS: FUROSEMIDE 20 MG, FUROSEMIDE 40 MG PO SCH (10:21)
[2018-05-17] MEDS: PANTOPRAZOLE 40 MG TABLET (FP) PO SCH (10:21)
[2018-05-17] MEDS: amLODIPine BESYLATE 10 MG TABLET (FP) PO SCH (10:21)
[2018-05-17] MEDS: SERTRALINE HCL 50 MG TABLET (FP) PO SCH (10:21)
[2018-05-17] MEDS: LISINOPRIL 20 MG TABLET (FP) PO SCH (10:21)
--- NOTE | 2018-05-17 13:59 | PN ---
Progress Note, Physician History of Present Illness: Reports being at baseline exercise tolerance, noted to be in slow afib 40-50's off Bystolic. She denies bilateral LE swelling, orthopnea, chest tightness, palpitations, near or true syncope, PND. Diarrhea has since resolved. Allergies: NKA Past surgical history: Rip hip replacement in 2007 and January 2017 Social history: No reported alcohol, cigarette, or drug use. PCP: Dr. Pompa - Current Medication List Current Medications: Active Medications Albuterol Sulfate (Ventolin Hfa Inhaler -) 2 puff IH Q4H PRN PRN Reason: ASTHMA Amlodipine Besylate (Norvasc -) 10 mg PO DAILY [facility] Last Admin: 05/17/18 10:21 Dose: 10 mg Apixaban (Eliquis -) 5 mg PO BID [facility] Last Admin: 05/17/18 10:21 Dose: 5 mg Atorvastatin Calcium (Lipitor -) 20 mg PO HS [facility] Last Admin: 05/16/18 22:46 Dose: 20 mg Furosemide 20 mg/ Furosemide (40 mg) 60 mg PO DAILY [facility] Last Admin: 05/17/18 10:21 Dose: 60 mg Insulin Aspart (Novolog Vial Sliding Scale -) 1 vial SQ ACHS [facility]; Protocol Last Admin: 05/17/18 12:00 Dose: 1 units Lisinopril (Prinivil) 40 mg PO DAILY [facility] Last Admin: 05/17/18 10:21 Dose: 40 mg Ondansetron HCl (Zofran Injection) 4 mg IVPUSH Q6H PRN PRN Reason: NAUSEA Last Admin: 05/14/18 21:22 Dose: 4 mg Pantoprazole Sodium (Protonix -) 40 mg PO DAILY [facility] Last Admin: 05/17/18 10:21 Dose: 40 mg Sertraline HCl (Zoloft -) 50 mg PO DAILY [facility] Last Admin: 05/17/18 10:21 Dose: 50 mg Spironolactone (Aldactone -) 50 mg PO DAILY [facility] Last Admin: 05/17/18 10:21 Dose: 50 mg - Objective Vital Signs: Vital Signs Temperature 98 F 05/17/18 10:00 Pulse Rate 50 L 05/17/18 10:00 Respiratory Rate 18 05/17/18 10:00 Blood Pressure 138/58 L 05/17/18 10:00 O2 Sat by Pulse Oximetry (%) 97 05/17/18 09:00 Constitutional: Yes: No Distress, Calm, Thin Neck: Yes: Supple Cardiovascular: Yes: Bradycardia, Pulse Irregular Respiratory: Yes: Regular, CTA Bilaterally Gastrointestinal: Yes: Normal Bowel Sounds, Soft Edema: No Labs: CBC, BMP 05/15/18 05:30 05/17/18 07:22 INR, PTT INR 1.82 (0.83-1.09) H 05/13/18 17:30 - ....Imaging EKG: Report Reviewed (Tele: afib 40-50s) Problem List - Problems (1) Atrial fibrillation with slow ventricular response Code(s): I48.91 - UNSPECIFIED ATRIAL FIBRILLATION (2) [id number] kidney injury Code(s): N17.9 - ACUTE KIDNEY FAILURE, UNSPECIFIED; N18.9 - CHRONIC KIDNEY DISEASE, UNSPECIFIED Qualifiers: Acute renal failure type: unspecified Chronic kidney disease stage: stage 2 (mild) Qualified Code(s): N17.9 - Acute kidney failure, unspecified; N18.2 - Chronic kidney disease, stage 2 (mild) (3) Chronic kidney disease (CKD) Code(s): N18.9 - CHRONIC KIDNEY DISEASE, UNSPECIFIED Qualifiers: Chronic kidney disease stage: stage 2 (mild) Qualified Code(s): N18.2 - Chronic kidney disease, stage 2 (mild) (4) Diastolic dysfunction without heart failure Code(s): I51.9 - HEART DISEASE, UNSPECIFIED (5) HTN (hypertension) Code(s): I10 - ESSENTIAL (PRIMARY) HYPERTENSION Qualifiers: Hypertension type: essential hypertension Qualified Code(s): I10 - Essential (primary) hypertension (6) Aortic valve stenosis Code(s): I35.0 - NONRHEUMATIC AORTIC (VALVE) STENOSIS Qualifiers: Cardiac valve disease etiology: nonrheumatic Qualified Code(s): I35.0 - Nonrheumatic aortic (valve) stenosis (7) COPD (chronic obstructive pulmonary disease) Code(s): J44.9 - CHRONIC OBSTRUCTIVE PULMONARY DISEASE, UNSPECIFIED Qualifiers: COPD type: unspecified COPD Qualified Code(s): J44.9 - Chronic obstructive pulmonary disease, unspecified (8) Diabetes mellitus Code(s): E11.9 - TYPE 2 DIABETES MELLITUS WITHOUT COMPLICATIONS Qualifiers: Diabetes mellitus type: type 2 Diabetes mellitus penitentiary insulin use: without chapter relations administrator use Diabetes mellitus complication status: without complication Qualified Code(s): E11.9 - Type 2 diabetes mellitus without complications (9) Hypercholesterolemia Code(s): E78.00 - PURE HYPERCHOLESTEROLEMIA, UNSPECIFIED Assessment/Plan 09/10/2017 Echo: Normal LV size and fxn, LVEF 65%, mild cLVH, abnl LV compliance , mod TRINI, mild MR, TR, mod MG 25 mmHg 02/28/2018 Echo: Normal LV size and fxn LVEF 55-60%, restrictive physiology, mild LAE, mild MR, TR RVSP 40-40 mmHg, mod-severe CHARI 0.80 cm^2, MG 32 mmHg 1. Persistent atrial fibrillation with slow ventricular response, ? sick sinus syndrome [id number] score of 7 on Eliquis 2. Diastolic dysfunction with h/o failure and moderate-severe aortic stenosis 3. COPD 4. Type 2 DM 5. Hypertensive heart disease 6. Hypercholesterolemia 7. Acute on chronic kidney disease referable to volume depletion improving with hydration 8. Anemia 9. Degenerative joint disease post right THR 10. Diarrhea since resolved r/o c. diff PLAN: 1. Resumed Lasix 60 qd and Aldactone 50 qd as renal function recovers 2. Consider right and left heart cath as outpatient to further assess and possible TAVR entertained if patient agrees to proceed 3. Observe HR response off Bystolic, resume Lisinopril 40 QD as renal fxn stabilizes, continue Eliquis 5 BID, Lipitor 20 QHS and Amlodipine 10 QD 4. Bronchodilator, O2 as needed 5. D/c planning with f/u in office with Dr. Stewart
--- NOTE | 2018-05-17 16:22 | DS ---
Physical Exam: SUBJECTIVE: Patient seen and examined - feels well. No chest pain/palpitations/ shortness of breath. OBJECTIVE: Afebrile, Hemodynamically Stable. Last Vital Signs Temp Pulse Resp BP Pulse Ox 98.2 F 70 18 129/52 L 97 05/17/18 14:45 05/17/18 14:45 05/17/18 14:45 05/17/18 14:45 05/17/18 09:00 HEENT- Atraumatic, Normocephalic. No pharyngeal erythema/exudate Heart - S1, S2, SM Lungs - decreased air entry bibasally Abdomen - soft, non-tender. Bowel Sounds normal. Extremities - minimal LE edema. No calf tenderness. LABS Laboratory Results - last 24 hr 05/16/18 05/16/18 05/17/18 17:44 22:45 06:58 Sodium Potassium Chloride Carbon Dioxide Anion Gap BUN Creatinine Creat Clearance w eGFR POC Glucometer 116 147 114 Random Glucose Calcium 05/17/18 05/17/18 07:22 11:52 Sodium 141 Potassium 4.3 Chloride 110 H Carbon Dioxide 24 Anion Gap 7 L BUN 31 H Creatinine 1.3 Creat Clearance w eGFR 39.12 POC Glucometer 146 Random Glucose 112 H Calcium 8.4 L Date of Admission:05/15/18 Date of Discharge: 05/17/18 Minutes to complete discharge: 45 Discharge Summary Reason For Visit: ACUTE KIDNEY INJURY,BRADYCARDIA Current Active Problems Atrial fibrillation with slow ventricular response (Acute) Hospital Course: 82 year old female with Chronic Diastoic CHF, Moderate to Severe Aortic Stenosis , COPD, HTN, HLD, DM 2, Asthma, Atrial Fibrillation (on Eliquis), presented to ED with several day history of increasing SOB, cough, loose stool. She recently completed a course of Abx for UTI. She was found to have SARA, likely secondary to volume depletion due to fluid loss via diarrhea. No further diarrheal episodes during her hospitalization. Her renal function improved with IV hydration and FLORENCIO-I, Lasix and Spironolactone were resumed. On telemetry, she was noted to have Bradycardia in the 30s, which was asymptomatic, and which persisted even with a lowering of her Nebivolol dose. As such, Cardiology recommends discontinuation of her Beta Suhas altogether with Cardiology follow up as an out-patient with Dr. Stewart. 1. Diarrhea, possibly viral syndrome - resolved. No further episodes since admission Afebrile, Hemodynamically stable without abdominal discomfort or vomiting. No melena/hematochezia. 2. SARA on CKD 3 secondary to dehydration/ATN due to diarrhea. Improving, BUN/Creat down from 2.1 to 1.3 Renal US - no structural abnormalities, no obstruction. Lasix/Spironolactone held in favor of gentle IV fluids since admission - IV fluids discontinued and diuretics resumed. Follow up with Dr. Ely as out-patient. 3. Chronic Diastolic CHF with Moderate to Severe - last Echo 03/13 No evidence of fluid overload. Resumed on ACEI, Lasix and Spironolactone. 4. Atrial Fibrillation with slow ventricular response. Nebivolol discontinued. HR 70 today. Will continue EliquisStill bradycardic today, down to 45 ( asymptomatic) with reduced dose of Nebivolol. BB held. Continue Eliquis. Cardiology consulted re: persistent Bradycardia - for consideration of right and left heart cath as outpatient with Dr. Stewart to further assess and possible TAVR. 5. HTN - Resumed on Lisinopril and Spironolactone. Continue Amlodipine on discharge. 6. DM 2 - maintained on Novolog SSI as in-patient. 7. HLD - Continue Lipitor 8. COPD - Stable. Continue Albuterol prn. She is hemodynamically stable for discharge with Nephrology and Cardiology out- patient follow up. Condition: Good - Instructions Diet, Activity, Other Instructions: Please stop Bystolic and follow with Cardiology and Nephrology Referrals: Arvind Ravi MD [Primary Care Provider] - 2 Weeks Armen Stewart MD [Staff Physician] - 1 Week Carol Ely MD [Staff Physician] - 1 Week Disposition: HOME - Home Medications Comprehensive Discharge Medication List: Ambulatory Orders Lisinopril [Zestril] 40 mg PO DAILY 12/29/16 Simvastatin 40 mg PO DAILY 12/29/16 Omeprazole Magnesium [Prilosec Otc] 40 mg PO DAILY 09/06/17 Sertraline HCl [Zoloft -] 50 mg PO DAILY 09/09/17 Apixaban [Eliquis -] 5 mg PO BID #0 tablet 09/27/17 Albuterol Sulfate [Proair Respiclick] 90 mcg IH Q4H PRN 02/27/18 Spironolactone [Aldactone] 50 mg PO DAILY 15 Days #15 tablet 03/11/18 Furosemide [Lasix] 60 mg PO DAILY 05/13/18 Amlodipine Besylate [Norvasc -] 10 mg PO DAILY 30 Days #30 tablet 05/17/18 Problem List - Problems (1) Atrial fibrillation with slow ventricular response Code(s): I48.91 - UNSPECIFIED ATRIAL FIBRILLATION (2) [id number] kidney injury Code(s): N17.9 - ACUTE KIDNEY FAILURE, UNSPECIFIED; N18.9 - CHRONIC KIDNEY DISEASE, UNSPECIFIED Qualifiers: Acute renal failure type: unspecified Chronic kidney disease stage: stage 2 (mild) Qualified Code(s): N17.9 - Acute kidney failure, unspecified; N18.2 - Chronic kidney disease, stage 2 (mild) This patient is new to me today: No Emergency Visit: Yes ED Registration Date: 05/15/18 Care time: The patient presented to the Emergency Department on the above date and was hospitalized for further evaluation of their emergent condition. Critical Care patient: No - Discharge Referral Referred to [facility] No
[2018-05-17] MEDS: ATORVASTATIN CA 20 MG TABLET (FP) PO SCH (22:04)
[2018-05-18] MEDS: INSULIN SLIDING SCALE (NOVOLOG) 1 VIAL SQ SCH ×4 (06:17→22:11)
[2018-05-18] MEDS ORDERED: FUROSEMIDE 40 MG TABLET (FP) ONE (09:25)
[2018-05-18] MEDS ORDERED: FUROSEMIDE 20 MG TABLET (FP) ONE (09:25)
[2018-05-18] MEDS: FUROSEMIDE 20 MG, FUROSEMIDE 40 MG PO SCH (10:21)
[2018-05-18] MEDS: PANTOPRAZOLE 40 MG TABLET (FP) PO SCH (10:21)
[2018-05-18] MEDS: SERTRALINE HCL 50 MG TABLET (FP) PO SCH (10:22)
[2018-05-18] MEDS: LISINOPRIL 20 MG TABLET (FP) PO SCH (10:22)
[2018-05-18] MEDS: APIXABAN 5 MG TABLET PO SCH ×2 (10:22→22:11)
[2018-05-18] MEDS: SPIRONOLACTONE 25 MG TABLET (FP) PO SCH (10:22)
[2018-05-18] MEDS: amLODIPine BESYLATE 10 MG TABLET (FP) PO SCH (10:22)
--- NOTE | 2018-05-18 12:27 | PN ---
Progress Note (short form) - Note Progress Note: SUBJECTIVE: Patient seen and examined - feels well. No chest pain/palpitations/ shortness of breath. OBJECTIVE: Afebrile, Hemodynamically Stable. Last Vital Signs Temp Pulse Resp BP Pulse Ox 97.8 F 63 20 154/67 99 05/18/18 10:00 05/18/18 10:00 05/18/18 10:00 05/18/18 10:00 05/18/18 09:00 HEENT- Atraumatic, Normocephalic. No pharyngeal erythema/exudate Heart - S1, S2, SM Lungs - decreased air entry bibasally Abdomen - soft, non-tender. Bowel Sounds normal. Extremities - minimal LE edema. No calf swelling/tenderness. LABS Laboratory Results - last 24 hr 05/17/18 05/17/18 05/17/18 11:52 17:23 21:50 POC Glucometer 146 140 133 05/18/18 05/18/18 06:10 11:48 POC Glucometer 120 137 Current Medications Generic Name Dose Route Start Last Admin Trade Name Freq PRN Reason Stop Dose Admin Albuterol Sulfate 2 puff 05/13/18 20:57 Ventolin Hfa Inhaler - IH Q4H PRN ASTHMA Amlodipine Besylate 10 mg 05/15/18 13:00 05/18/18 10:22 Norvasc - PO 10 mg DAILY PK Administration Apixaban 5 mg 05/13/18 22:00 05/18/18 10:22 Eliquis - PO 5 mg BID PK Administration Atorvastatin Calcium 20 mg 05/14/18 22:00 05/17/18 22:04 Lipitor - PO 20 mg HS PK Administration Furosemide 20 mg/ Furosemide 60 mg 05/16/18 10:00 05/18/18 10:21 40 mg PO 60 mg DAILY PK Administration Insulin Aspart 1 vial 05/14/18 16:30 05/18/18 06:17 Novolog Vial Sliding Scale - SQ Not Given ACHS PK Protocol Lisinopril 40 mg 05/14/18 10:00 05/18/18 10:22 Prinivil PO 40 mg DAILY PK Administration Ondansetron HCl 4 mg 05/13/18 19:44 05/14/18 21:22 Zofran Injection IVPUSH 4 mg Q6H PRN Administration NAUSEA Pantoprazole Sodium 40 mg 05/14/18 10:00 05/18/18 10:21 Protonix - PO 40 mg DAILY PK Administration Sertraline HCl 50 mg 05/14/18 10:00 05/18/18 10:22 Zoloft - PO 50 mg DAILY PK Administration Spironolactone 50 mg 05/17/18 10:00 05/18/18 10:22 Aldactone - PO 50 mg DAILY PK Administration ASSESSMENT/PLAN Medically Cleared for discharge 05/17/18 - awaiting reinstatement of Home [facility] services since 05/17/18 - Discharge deferred. 82 year old female with Chronic Diastoic CHF, Moderate to Severe Aortic Stenosis , COPD, HTN, HLD, DM 2, Asthma, Atrial Fibrillation (on Eliquis), presented to ED with several day history of increasing SOB, cough, loose stool. She recently completed a course of Abx for UTI. She was found to have SARA, likely secondary to volume depletion due to fluid loss via diarrhea. No further diarrheal episodes during her hospitalization. Her renal function improved with IV hydration and FLORENCIO-I, Lasix and Spironolactone were resumed. On telemetry, she was noted to have Bradycardia in the 30s, which was asymptomatic, and which persisted even with a lowering of her Nebivolol dose. As such, Cardiology recommends discontinuation of her Beta Suhas altogether with Cardiology follow up as an out-patient with Dr. Stewart. 1. Diarrhea, possibly viral syndrome - resolved. No further episodes since admission Afebrile, Hemodynamically stable without abdominal discomfort or vomiting. No melena/hematochezia. 2. SARA on CKD 3 secondary to dehydration/ATN due to diarrhea. Improved Renal US - no structural abnormalities, no obstruction. Diuretics Lasix and Spironolactone resumed. Follow up with Dr. Ely as out-patient. 3. Chronic Diastolic CHF with Moderate to Severe - last Echo 03/13 No evidence of fluid overload. Resumed on ACEI, Lasix and Spironolactone. 4. Atrial Fibrillation with slow ventricular response. Nebivolol discontinued. HR 63 today. Will continue Eliquis. As per Cardiology, for consideration of right and left heart cath as outpatient with Dr. Stewart to further assess and possible TAVR. 5. HTN - Resumed on Lisinopril and Spironolactone in addition to Amlodipine. 6. DM 2 - maintained on Novolog SSI as in-patient. 7. HLD - Continue Lipitor 8. COPD - Stable. Continue Albuterol prn. She is medically table for discharge with Nephrology and Cardiology out-patient follow up. Awaiting social worker assistant. Problem List - Problems (1) Atrial fibrillation with slow ventricular response Code(s): I48.91 - UNSPECIFIED ATRIAL FIBRILLATION (2) [id number] kidney injury Code(s): N17.9 - ACUTE KIDNEY FAILURE, UNSPECIFIED; N18.9 - CHRONIC KIDNEY DISEASE, UNSPECIFIED Qualifiers: Acute renal failure type: unspecified Chronic kidney disease stage: stage 2 (mild) Qualified Code(s): N17.9 - Acute kidney failure, unspecified; N18.2 - Chronic kidney disease, stage 2 (mild) Visit type - Emergency Visit Emergency Visit: Yes ED Registration Date: 05/15/18 Care time: The patient presented to the Emergency Department on the above date and was hospitalized for further evaluation of their emergent condition. - New Patient This patient is new to me today: No - Critical Care Critical Care patient: No - Discharge Referral Referred to [facility] No
--- NOTE | 2018-05-18 14:10 | PN ---
Progress Note, Physician History of Present Illness: Reports being at baseline exercise tolerance, noted to be in slow afib 40-50's off Bystolic. She denies bilateral LE swelling, orthopnea, chest tightness, palpitations, near or true syncope, PND. Diarrhea has since resolved. Allergies: NKA Past surgical history: Rip hip replacement in 2007 and January 2017 Social history: No reported alcohol, cigarette, or drug use. PCP: Dr. Pompa - Current Medication List Current Medications: Active Medications Albuterol Sulfate (Ventolin Hfa Inhaler -) 2 puff IH Q4H PRN PRN Reason: ASTHMA Amlodipine Besylate (Norvasc -) 10 mg PO DAILY [facility] Last Admin: 05/18/18 10:22 Dose: 10 mg Apixaban (Eliquis -) 5 mg PO BID [facility] Last Admin: 05/18/18 10:22 Dose: 5 mg Atorvastatin Calcium (Lipitor -) 20 mg PO HS [facility] Last Admin: 05/17/18 22:04 Dose: 20 mg Furosemide 20 mg/ Furosemide (40 mg) 60 mg PO DAILY [facility] Last Admin: 05/18/18 10:21 Dose: 60 mg Insulin Aspart (Novolog Vial Sliding Scale -) 1 vial SQ ACHS [facility]; Protocol Last Admin: 05/18/18 12:54 Dose: Not Given Lisinopril (Prinivil) 40 mg PO DAILY [facility] Last Admin: 05/18/18 10:22 Dose: 40 mg Ondansetron HCl (Zofran Injection) 4 mg IVPUSH Q6H PRN PRN Reason: NAUSEA Last Admin: 05/14/18 21:22 Dose: 4 mg Pantoprazole Sodium (Protonix -) 40 mg PO DAILY [facility] Last Admin: 05/18/18 10:21 Dose: 40 mg Sertraline HCl (Zoloft -) 50 mg PO DAILY [facility] Last Admin: 05/18/18 10:22 Dose: 50 mg Spironolactone (Aldactone -) 50 mg PO DAILY [facility] Last Admin: 05/18/18 10:22 Dose: 50 mg - Objective Vital Signs: Vital Signs Temperature 98 F 05/18/18 13:53 Pulse Rate 55 L 05/18/18 13:53 Respiratory Rate 20 05/18/18 13:53 Blood Pressure 145/61 05/18/18 13:53 O2 Sat by Pulse Oximetry (%) 99 05/18/18 09:00 Constitutional: Yes: No Distress, Calm, Thin Neck: Yes: Supple Cardiovascular: Yes: Bradycardia, Pulse Irregular, Murmur (2/6 SM) Respiratory: Yes: Regular, CTA Bilaterally Gastrointestinal: Yes: Normal Bowel Sounds, Soft Edema: No Labs: CBC, BMP 05/15/18 05:30 05/17/18 07:22 INR, PTT INR 1.82 (0.83-1.09) H 05/13/18 17:30 - ....Imaging EKG: Report Reviewed (Tele: SB 50s) Problem List - Problems (1) Atrial fibrillation with slow ventricular response Code(s): I48.91 - UNSPECIFIED ATRIAL FIBRILLATION (2) Abiyf-dn-fgljjlh kidney injury Code(s): N17.9 - ACUTE KIDNEY FAILURE, UNSPECIFIED; N18.9 - CHRONIC KIDNEY DISEASE, UNSPECIFIED Qualifiers: Acute renal failure type: unspecified Chronic kidney disease stage: stage 2 (mild) Qualified Code(s): N17.9 - Acute kidney failure, unspecified; N18.2 - Chronic kidney disease, stage 2 (mild) (3) Chronic kidney disease (CKD) Code(s): N18.9 - CHRONIC KIDNEY DISEASE, UNSPECIFIED Qualifiers: Chronic kidney disease stage: stage 2 (mild) Qualified Code(s): N18.2 - Chronic kidney disease, stage 2 (mild) (4) Diastolic dysfunction without heart failure Code(s): I51.9 - HEART DISEASE, UNSPECIFIED (5) HTN (hypertension) Code(s): I10 - ESSENTIAL (PRIMARY) HYPERTENSION Qualifiers: Hypertension type: essential hypertension Qualified Code(s): I10 - Essential (primary) hypertension (6) Aortic valve stenosis Code(s): I35.0 - NONRHEUMATIC AORTIC (VALVE) STENOSIS Qualifiers: Cardiac valve disease etiology: nonrheumatic Qualified Code(s): I35.0 - Nonrheumatic aortic (valve) stenosis (7) COPD (chronic obstructive pulmonary disease) Code(s): J44.9 - CHRONIC OBSTRUCTIVE PULMONARY DISEASE, UNSPECIFIED Qualifiers: COPD type: unspecified COPD Qualified Code(s): J44.9 - Chronic obstructive pulmonary disease, unspecified (8) Diabetes mellitus Code(s): E11.9 - TYPE 2 DIABETES MELLITUS WITHOUT COMPLICATIONS Qualifiers: Diabetes mellitus type: type 2 Diabetes mellitus shelter insulin use: without shelter use Diabetes mellitus complication status: without complication Qualified Code(s): E11.9 - Type 2 diabetes mellitus without complications (9) Hypercholesterolemia Code(s): E78.00 - PURE HYPERCHOLESTEROLEMIA, UNSPECIFIED Assessment/Plan 09/10/2017 Echo: Normal LV size and fxn, LVEF 65%, mild cLVH, abnl LV compliance , mod TRINI, mild MR, TR, mod MG 25 mmHg 02/28/2018 Echo: Normal LV size and fxn LVEF 55-60%, restrictive physiology, mild LAE, mild MR, TR RVSP 40-40 mmHg, mod-severe CHARI 0.80 cm^2, MG 32 mmHg 1. Persistent atrial fibrillation with slow ventricular response, ? sick sinus syndrome [id number] score of 7 on Eliquis 2. Diastolic dysfunction with h/o failure and moderate-severe aortic stenosis 3. COPD 4. Type 2 DM 5. Hypertensive heart disease 6. Hypercholesterolemia 7. Acute on chronic kidney disease referable to volume depletion improving with hydration 8. Anemia 9. Degenerative joint disease post right THR 10. Diarrhea since resolved r/o c. diff PLAN: 1. Resumed Lasix 60 qd and Aldactone 50 qd as renal function recovers 2. Consider right and left heart cath as outpatient to further assess and possible TAVR entertained if patient agrees to proceed 3. Observe HR response off Bystolic, resume Lisinopril 40 QD as renal fxn stabilizes, continue Eliquis 5 BID, Lipitor 20 QHS and Amlodipine 10 QD 4. Bronchodilator, O2 as needed 5. D/c planning with f/u in office with Dr. Stewart
[2018-05-18] MEDS: ATORVASTATIN CA 20 MG TABLET (FP) PO SCH (22:11)
[2018-05-19 05:08] VITALS: PULSE 57
[2018-05-19] MEDS: INSULIN SLIDING SCALE (NOVOLOG) 1 VIAL SQ SCH ×2 (06:33→12:27)
[2018-05-19] MEDS ORDERED: FUROSEMIDE 40 MG TABLET (FP) ONE (09:12)
[2018-05-19] MEDS ORDERED: FUROSEMIDE 20 MG TABLET (FP) ONE (09:12)
[2018-05-19] MEDS: LISINOPRIL 20 MG TABLET (FP) PO SCH (10:29)
[2018-05-19] MEDS: SERTRALINE HCL 50 MG TABLET (FP) PO SCH (10:30)
[2018-05-19] MEDS: FUROSEMIDE 20 MG, FUROSEMIDE 40 MG PO SCH (10:30)
[2018-05-19] MEDS: APIXABAN 5 MG TABLET PO SCH (10:30)
[2018-05-19] MEDS: PANTOPRAZOLE 40 MG TABLET (FP) PO SCH (10:30)
[2018-05-19] MEDS: amLODIPine BESYLATE 10 MG TABLET (FP) PO SCH (10:30)
[2018-05-19] MEDS: SPIRONOLACTONE 25 MG TABLET (FP) PO SCH (10:30)
--- NOTE | 2018-05-19 10:34 | PN ---
Progress Note (short form) - Note Progress Note: SUBJECTIVE: Patient seen and examined - feels well. No complaints - NO chest pain/palpitations/shortness of breath. OBJECTIVE: Afebrile, Hemodynamically Stable. Last Vital Signs Temp Pulse Resp BP Pulse Ox 97.5 F L 57 L 20 146/53 L 96 05/19/18 05:00 05/19/18 05:00 05/19/18 05:00 05/19/18 05:00 05/18/18 19:55 HEENT- Atraumatic, Normocephalic. No pharyngeal erythema/exudate Heart - S1, S2, SM, irregular Lungs - decreased air entry bibasally Abdomen - soft, non-tender. Bowel Sounds normal. Extremities - minimal LE edema. No calf swelling/tenderness. LABS Laboratory Results - last 24 hr 05/18/18 05/18/18 05/18/18 11:48 17:05 22:13 POC Glucometer 137 151 125 05/19/18 05:03 POC Glucometer 125 Current Medications Generic Name Dose Route Start Last Admin Trade Name Freq PRN Reason Stop Dose Admin Albuterol Sulfate 2 puff 05/13/18 20:57 Ventolin Hfa Inhaler - IH Q4H PRN ASTHMA Amlodipine Besylate 10 mg 05/15/18 13:00 05/18/18 10:22 Norvasc - PO 10 mg DAILY PK Administration Apixaban 5 mg 05/13/18 22:00 05/18/18 22:11 Eliquis - PO 5 mg BID PK Administration Atorvastatin Calcium 20 mg 05/14/18 22:00 05/18/18 22:11 Lipitor - PO 20 mg HS PK Administration Furosemide 20 mg/ Furosemide 60 mg 05/16/18 10:00 05/18/18 10:21 40 mg PO 60 mg DAILY PK Administration Insulin Aspart 1 vial 05/14/18 16:30 05/19/18 06:33 Novolog Vial Sliding Scale - SQ Not Given ACHS PK Protocol Lisinopril 40 mg 05/14/18 10:00 05/18/18 10:22 Prinivil PO 40 mg DAILY PK Administration Ondansetron HCl 4 mg 05/13/18 19:44 05/14/18 21:22 Zofran Injection IVPUSH 4 mg Q6H PRN Administration NAUSEA Pantoprazole Sodium 40 mg 05/14/18 10:00 05/18/18 10:21 Protonix - PO 40 mg DAILY PK Administration Sertraline HCl 50 mg 05/14/18 10:00 05/18/18 10:22 Zoloft - PO 50 mg DAILY PK Administration Spironolactone 50 mg 05/17/18 10:00 05/18/18 10:22 Aldactone - PO 50 mg DAILY PK Administration ASSESSMENT/PLAN Medically Cleared for discharge 05/17/18 - unable to leave until today due to inability to reinstate Home Care services on the weekend. Please refer to Discharge Summary dated 05/17/18. 82 year old female with Chronic Diastoic CHF, Moderate to Severe Aortic Stenosis , COPD, HTN, HLD, DM 2, Asthma, Atrial Fibrillation (on Eliquis), presented to ED with several day history of increasing SOB, cough, loose stool. She recently completed a course of Abx for UTI. She was found to have SARA, likely secondary to volume depletion due to fluid loss via diarrhea. No further diarrheal episodes during her hospitalization. Her renal function improved with IV hydration and FLORENCIO-I, Lasix and Spironolactone were resumed. On telemetry, she was noted to have Bradycardia in the 30s, which was asymptomatic, and which persisted even with a lowering of her Nebivolol dose. As such, Cardiology recommends discontinuation of her Beta Suhas altogether with Cardiology follow up as an out-patient with Dr. Stewart. 1. Diarrhea, possibly viral syndrome - resolved. No further episodes since admission Afebrile, Hemodynamically stable without abdominal discomfort or vomiting. No melena/hematochezia. 2. SARA on CKD 3 secondary to dehydration/ATN due to diarrhea. Resolved. Renal US - no structural abnormalities, no obstruction. Diuretics Lasix and Spironolactone resumed. Follow up with Dr. Ely as out-patient. 3. Chronic Diastolic CHF with Moderate to Severe - last Echo 03/13 No evidence of fluid overload. Resumed on ACEI, Lasix and Spironolactone. 4. Atrial Fibrillation with slow ventricular response in the setting of Aortic Stenosis. Nebivolol discontinued. HR 63 today. Will continue Eliquis. As per Cardiology, for consideration of right and left heart cath as outpatient with Dr. Stewart to further assess and possible TAVR. 5. HTN - Resumed on Lisinopril and Spironolactone in addition to Amlodipine. 6. DM 2 - maintained on Novolog SSI as in-patient. 7. HLD - Continue Lipitor 8. COPD - Stable. Continue Albuterol prn. She is medically stable for discharge with Nephrology and Cardiology out- patient follow up. She will be discharged in the care of her daughter. Problem List - Problems (1) Atrial fibrillation with slow ventricular response Code(s): I48.91 - UNSPECIFIED ATRIAL FIBRILLATION (2) Excwi-to-anniyem kidney injury Code(s): N17.9 - ACUTE KIDNEY FAILURE, UNSPECIFIED; N18.9 - CHRONIC KIDNEY DISEASE, UNSPECIFIED Qualifiers: Acute renal failure type: unspecified Chronic kidney disease stage: stage 2 (mild) Qualified Code(s): N17.9 - Acute kidney failure, unspecified; N18.2 - Chronic kidney disease, stage 2 (mild) Visit type - Emergency Visit Emergency Visit: Yes ED Registration Date: 05/15/18 Care time: The patient presented to the Emergency Department on the above date and was hospitalized for further evaluation of their emergent condition. - New Patient This patient is new to me today: No - Critical Care Critical Care patient: No - Discharge Referral Referred to [facility] No
[2018-05-19 11:17] VITALS: BP 143/64; TEMP 98.1
== END 2018-05-19 13:28 | disposition home or self-care (01) | DRG 683 ==
LOC: JER 15:27 → JERBED 18:38 → J4W 05-14 17:40 → OBSVTOIN 05-15 14:46
PROVIDERS: ADMIT Internal Medicine
DX: N17.0 Acute kidney failure with tubular necrosis (principal); I48.1 Persistent atrial fibrillation; I13.0 Hypertensive heart and chronic kidney disease with heart failure and stage 1 through stage 4 chronic kidney disease, or unspecified chronic kidney disease; I50.32 Chronic diastolic (congestive) heart failure; I25.110 Atherosclerotic heart disease of native coronary artery with unstable angina pectoris; E86.0 Dehydration; E11.22 Type 2 diabetes mellitus with diabetic chronic kidney disease; N18.3 Chronic kidney disease, stage 3 (moderate); E78.5 Hyperlipidemia, unspecified; J44.9 Chronic obstructive pulmonary disease, unspecified; A08.4 Viral intestinal infection, unspecified; I35.0 Nonrheumatic aortic (valve) stenosis; I27.20 Pulmonary hypertension, unspecified; I08.1 Rheumatic disorders of both mitral and tricuspid valves; D64.9 Anemia, unspecified; F41.8 Other specified anxiety disorders; R19.7 Diarrhea, unspecified; R00.1 Bradycardia, unspecified; E66.9 Obesity, unspecified; Z68.30 Body mass index [BMI] 30.0-30.9, adult; Z87.891 Personal history of nicotine dependence; Z85.828 Personal history of other malignant neoplasm of skin; Z96.659 Presence of unspecified artificial knee joint; Z96.641 Presence of right artificial hip joint; Z99.81 Dependence on supplemental oxygen
CPT/HCPCS: 36415; 71045-TC-FY; 76775-TC; 80048; 80053; 81003; 82272; 82570; 82962; 83605; 83690; 83735; 83880; 84100; 84156; 84300; 84484; 84540; 85025; 85027; 85610; 87086; 93005; 93010; 97116-GP; 97161-GP; 99285-25; G0378; J7030

== ENCOUNTER 2018-06-09 12:12 | Inpatient (IN) | payer OTHER ==
--- NOTE | 2018-06-09 13:02 | PDOC ---
History of Present Illness - General History Source: Patient Exam Limitations: No Limitations - History of Present Illness Initial Comments: 06/09/18 13:05 82 year old female with PMH of CAD (non-obstructive), angina pectoris, HFPEF NYHA 3 baseline, MV regurgitation, moderate AV stenosis, TV regurgitation and pulmonary HTN, persistent AF on Eliquis, HTN, HLD, DM2, hypercholesterolemia, COPD, asthma, anemia, R hip replacement with chronic RLE edema, presenting with sob, dry cough and dizziness x 3 days. She states her symptoms have been getting progressively worse and are similar to presenting ED symptoms in april. She reports worsening exercise tolerance and sob even at rest, as well as worsening orthopnea and pedal edema. She has been compliant with all of her medication but was taken off Aldactone by PCP 2 w ago. Reports a transient episode of sharp L sided CP radiating to back 2 d ago that has since resolved as well as worsening palpitations. Patient reports that she was recently evaluated by Dr Stewart cardiology for TAVR but was found to be ineligible due to high surgical risk. Denies n/v, loss of appetite, diarrhea/constipation, f/c, rhinorrhea, h/a, abd pain, focal weakness/numbness. 06/09/18 13:07 06/09/18 13:20 Timing/Duration: reports: getting worse Severity: reports: moderate Possible Cause: Yes: frequent episodes Modifying Factors: improves with: activity, lying down Associated Symptoms: reports: cough, dizziness, lightheadedness, shortness of breath <Roselyn Wilkerson - Last Filed: 06/09/18 14:29> <Elsa Cunningham - Last Filed: 06/09/18 15:35> - General Chief Complaint: Shortness of Breath Stated Complaint: Shortness of Breath Time Seen by Provider: 06/09/18 12:28 Past History - Travel Traveled outside of the country in the last 30 days: No Close contact w/someone who was outside of country & ill: No - Past Medical History Anemia: Yes Asthma: Yes Cancer: Yes (SKIN / FOREHEAD 2011) Cardiac Disorders: Yes (A-fib, CAD, Angina, TR, MR, AV stenosis) CVA: Yes COPD: Yes (Asthma, pulmonary HTN) CHF: Yes Dementia: No Diabetes: Yes GI Disorders: No Disorders: No HTN: Yes Hypercholesterolemia: Yes Liver Disease: No Psychiatric Problems: Yes (depresion, anxiety) Seizures: No Thyroid Disease: No - Surgical History Abdominal Surgery: No Appendectomy: No Cardiac Surgery: No Cholecystectomy: No Lung Surgery: No Neurologic Surgery: No Orthopedic Surgery: Yes ((R) HIP REPLACEMENT 2007, redone 2015) - Immunization History Immunization Up to Date: Yes - Suicide/Smoking/Psychosocial Hx Smoking Status: No Smoking History: Never smoked Have you smoked in the past 12 months: No Number of Cigarettes Smoked Daily: 0 If you are a former smoker, when did you quit?: many years ago Cigars Per Day: 0 Hx Alcohol Use: No Drug/Substance Use Hx: No Substance Use Type: None Hx Substance Use Treatment: No <Roselyn Wilkerson - Last Filed: 06/09/18 14:29> <Elsa Cunningham - Last Filed: 06/09/18 15:35> - Past Medical History Allergies/Adverse Reactions: Allergies Allergy/AdvReac Type Severity Reaction Status Date / Time ciprofloxacin [From Cipro] Allergy Verified 06/09/18 12:38 ciprofloxacin HCl Allergy Verified 06/09/18 12:38 [From Cipro] Home Medications: Ambulatory Orders Lisinopril [Zestril] 40 mg PO DAILY 12/29/16 Simvastatin 40 mg PO DAILY 12/29/16 Omeprazole Magnesium [Prilosec Otc] 40 mg PO DAILY 09/06/17 Sertraline HCl [Zoloft -] 50 mg PO DAILY 09/09/17 Apixaban [Eliquis -] 5 mg PO BID #0 tablet 09/27/17 Albuterol Sulfate [Proair Respiclick] 90 mcg IH Q4H PRN 02/27/18 Spironolactone [Aldactone] 50 mg PO DAILY 15 Days #15 tablet 03/11/18 Furosemide [Lasix] 60 mg PO DAILY 05/13/18 Amlodipine Besylate [Norvasc -] 10 mg PO DAILY 30 Days #30 tablet 05/17/18 Review of Systems - Review of Systems Able to Perform ROS?: Yes Constitutional: No: Chills, Diaphoresis, Fever Respiratory: Yes: Cough, Orthopnea, Shortness of Breath. No: Wheezing, Productive cough Cardiac (ROS): Yes: Edema, Lightheadedness, Palpitations. No: Chest Pain, Syncope, Chest Tightness ABD/GI: No: Abdominal Distended, Constipated, Diarrhea, Nausea, Vomiting : No: Dysuria Neurological: No: Headache, Numbness, Weakness Psychiatric: No: Anxiety, Depression Endocrine: No: Increased Urine <Roselyn Wilkerson - Last Filed: 06/09/18 14:29> *Physical Exam - Vital Signs Last Vital Signs Temp Pulse Resp BP Pulse Ox 100 F H 69 20 144/113 H 95 06/09/18 12:34 06/09/18 12:34 06/09/18 12:34 06/09/18 12:34 06/09/18 12:34 - Physical Exam General Appearance: Yes: Nourished. No: Apparent Distress HEENT: positive: EOMI, DELILAH Neck: positive: Supple, Other (JVD at 40 degree recline ) Respiratory/Chest: positive: Other (poor air movement diffusely). negative: Wheezing Cardiovascular: positive: S1, S2, Edema (r>l), JVD, Murmur (systolic grade 3 ), Systolic Murmur, Irregularly Irregular Gastrointestinal/Abdominal: positive: Normal Bowel Sounds, Soft. 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 NML intact, Alert, Normal Mood/Affect, Normal Response <Roselyn Wilkerson - Last Filed: 06/09/18 14:29> - Vital Signs Last Vital Signs Temp Pulse Resp BP Pulse Ox 99.0 F 59 L 18 142/56 L 95 06/09/18 14:37 06/09/18 14:37 06/09/18 14:37 06/09/18 14:37 06/09/18 12:34 <Elsa Cunningham - Last Filed: 06/09/18 15:35> Moderate Sedation - Procedure Monitoring Vital Signs: Procedure Monitoring Vital Signs Temperature 100 F H 06/09/18 12:34 Pulse Rate 69 06/09/18 12:34 Respiratory Rate 20 06/09/18 12:34 Blood Pressure 144/113 H 06/09/18 12:34 O2 Sat by Pulse Oximetry (%) 95 06/09/18 12:34 <Roselyn Wilkerson - Last Filed: 06/09/18 14:29> - Procedure Monitoring Vital Signs: Procedure Monitoring Vital Signs Temperature 99.0 F 06/09/18 14:37 Pulse Rate 59 L 06/09/18 14:37 Respiratory Rate 18 06/09/18 14:37 Blood Pressure 142/56 L 06/09/18 14:37 O2 Sat by Pulse Oximetry (%) 95 06/09/18 12:34 <MarisaElsa Long - Last Filed: 06/09/18 15:35> Heart Score/ECG Review - History History: Moderately suspicious - Electrocardiogram EKG: Non specific repolarization disturbance - Age Age: >/= 65 - Risk Factors Risk Factors Heart Score: Yes Hx Hypercholesterolemia, Yes Hx Hypertension, Yes Hx Diabetes, Yes Smoking History Based on the list above the patient has:: >/=3 risk factors or Hx atherosclerotic disease - ECG Intrepretation Rhythm: Irregularly Irregular Comment:: EKG AF rate 61, L Wilton, inferior q waves, nonspecific t abnormality. No change from prior ekg 06/09/18 14:09 06/09/18 14:25 - Wilton Wilton: Left Wilton Deviation <Roselyn Wilkerson - Last Filed: 06/09/18 14:29> ED Treatment Course - LABORATORY CBC & Chemistry Diagram: 06/09/18 13:00 06/09/18 13:00 - RADIOLOGY Chest X-Ray Result: Effusion, CHF <Roselyn Wilkerson - Last Filed: 06/09/18 14:29> - LABORATORY CBC & Chemistry Diagram: 06/09/18 13:00 06/09/18 13:00 - ADDITIONAL ORDERS Additional order review: Laboratory Results 06/09/18 06/09/18 06/09/18 13:00 13:00 13:00 PT with INR 29.90 H INR 2.51 H Sodium 142 Potassium 3.6 Chloride 108 H Carbon Dioxide 27 Anion Gap 7 L BUN 22 H Creatinine 1.1 Creat Clearance w eGFR 47.43 Random Glucose 128 H Calcium 8.7 Magnesium 1.8 Total Bilirubin 0.5 AST 10 L ALT 12 L Alkaline Phosphatase 64 Troponin I < 0.02 B-Natriuretic Peptide 72875.9 H Total Protein 6.1 L Albumin 3.3 L 06/09/18 13:00 RBC 3.22 L MCV 88.8 MCHC 34.0 RDW 15.3 MPV 10.0 Neutrophils % 79.3 D Lymphocytes % 7.6 L D Monocytes % 11.1 H Eosinophils % 0.8 Basophils % 1.2 - RADIOLOGY Radiology Studies Ordered: Category Date Time Status CHEST PA & LAT [RAD] Stat Radiology 06/09/18 13:02 Taken - Medications Given in the ED: ED Medications Discontinued Medications Generic Name Dose Route Start Last Admin Trade Name Freq PRN Reason Stop Dose Admin Albuterol Sulfate 1 amp 06/09/18 13:06 06/09/18 13:34 Ventolin 0.083% Nebulizer Soln - NEB 06/09/18 13:07 1 amp ONCE ONE Administration Furosemide 80 mg 06/09/18 14:15 06/09/18 15:11 Lasix Injection - IVPUSH 06/09/18 14:16 80 mg ONCE ONE Administration <Elsa Cunningham - Last Filed: 06/09/18 15:35> Progress Note - Progress Note Progress Note: patient appears to be clinically volume overloaded. She also had poor air movement on lung exam w/o wheezing. was given albuterol neb with some relief of symptoms. EKG at baseline AF rate controlled no evidence of ACS. labs show stable anemia but drastically elevated BNP 78780 compared to a month ago with creat 1.1 (baseline). CXR shows bibasilar congestion/vesel cephalization. Will treat as CHF exacerbation, possibly precipitated by cessation of aldactone 2w ago. starting lasix IV 80. recommend cautious diuresis since patient is preload dependant in setting of severe . Referring patient to hospitalist service for inpatient admission to [facility] for CHF exacerbation Discussed with Dr Cline cardiology. <Roselyn Wilkerson - Last Filed: 06/09/18 14:29> *DC/Admit/Observation/Transfer - Discharge Dispostion Decision to Admit order: Yes <Roselyn Wilkerson - Last Filed: 06/09/18 14:29> - Discharge Dispostion Decision to Admit order: Yes Decision to Admit order Date/Time: 06/09/18 15:34 <Elsa Cunningham - Last Filed: 06/09/18 15:35> Diagnosis at time of Disposition: Aortic valve stenosis, CHF exacerbation, Anemia, Diabetes mellitus, Hypercholesterolemia, HTN (hypertension), COPD (chronic obstructive pulmonary disease), Atrial fibrillation with slow ventricular response - Discharge Dispostion Condition at time of disposition: Guarded
[2018-06-09] MEDS ORDERED: ALBUTEROL SO4 0.083% IH SOL 2.5 MG/3 ML VIAL.NEB. NEB ONE ×2 (13:06→13:29)
--- NOTE | 2018-06-09 13:16 | PDOC ---
Attending Attestation - Resident Resident Name: RheaLiatRoselyn - ED Attending Attestation I have performed the following: I have examined & evaluated the patient, The case was reviewed & discussed with the resident, I agree w/resident's findings & plan - HPI HPI: 06/09/18 14:41 [place] 82 year old female with Chronic Diastolic CHF, Moderate to Severe Aortic Stenosis (poor surgical candidate), asthma, COPD, HTN, HLD, DM 2, Asthma, Atrial Fibrillation (on Eliquis), presented to ED with several day history of increasing dizziness, SOB, orthopnea and cough x 3 days. +pedal edema despite compliance with lasix. Last admission 04/2018 for SOB/cough. At that time, UTI, diarrhea c/b SARA and dehydration; currently still on FLORENCIO-I, Lasix and Spironolactone were resumed. Compliant with meds Off aldactone x 2 weeks ago by PCP. Cards: Dr Cline Primary Care Physician: Dr. Ravi - Physicial Exam PE: 06/09/18 15:27 NAD, well appearing, on NC (baseline),PERRL, EOMI, MMM, nl conjunctiva, anicteric; neck supple, +JVD. BILATERAL wheezing and crackles. RRR, abdomen soft nontender. VENTURA x4, no focal neuro deficits. +peripheral edema. normal color for ethnicity, WWP. - Medical Decision Making 06/09/18 14:41 See HPI for details Vital signs reviewed, wnl. low grade temp, no fever. no respiratory distress, normal sats. mildly hypertensive. Prior notes reviewed, including admissions, discharges and consultations. laboratory results and imaging reviewed, basic labs and lytes wnl, notable for baseline anemia. DDx CHF, COPD, asthma, CXR_cardiomegaly, pulmonary vascular congestion Cardiac panel_neg trop, but significantly elevated BNP, higher than prior. EKG atrial fibrillation at 61 bpm, no interval abnormalities, narrow QRS, ST and T wave segments and morphology normal. Nonspecific T wave abnormalities - poor R wave progression. ED course: Duonebs for suspected COPD/asthma flare as well. no steroids, risk of DKA/hyperglycemia. IV lasix 80mg for diuresis, appropriate. cautious diuresis. romo put in for strict I/Os. Admit to medicine for suspected CHF exacerbation vs COPD/asthma.. Discussed results and management plan with pt and family member at bedside, agree with impression and plan 06/09/18 15:29
[2018-06-09 13:38] LABS: BASO % 1.2 % (0-2.0); EOS % 0.8 % (0-4.5); HEMATOCRIT 28.6 % (32.4-45.2); HEMOGLOBIN 9.7 GM/dL (10.7-15.3); LYMPH % 7.6 % (8-40); MCH 30.2 pg (25.7-33.7); MEAN CELL VOLUME 88.8 fl (80-96); MONO % 11.1 % (3.8-10.2); NEUT % 79.3 % (42.8-82.8); PLATELET COUNT 207 K/MM3 (134-434); RBC 3.22 M/mm3 (3.60-5.2); RDW 15.3 % (11.6-15.6); WHITE BLOOD COUNT 8.9 K/mm3 (4.0-10.0)
[2018-06-09 14:01] LABS: INR 2.51 (0.83-1.09); PROTHROMBIN TIME (PATIENT) 29.9 SEC (9.7-13.0)
[2018-06-09 14:09] LABS: ALBUMIN 3.3 g/dl (3.4-5.0); ALK PHOS 64 U/L (45-117); ANION GAP 7 MMOL/L (8-16); BILIRUBIN,TOTAL 0.5 mg/dL (0.2-1); BLOOD UREA NITROGEN 22 mg/dL (7-18); CALCIUM 8.7 mg/dL (8.5-10.1); CHLORIDE 108 mmol/L (98-107); CO2 27 mmol/L (21-32); CREATININE 1.1 mg/dL (0.55-1.3); GLUCOSE,RANDOM 128 mg/dL (74-106); MAGNESIUM 1.8 mg/dL (1.8-2.4); POTASSIUM 3.6 mmol/L (3.5-5.1); SGOT/AST 10 U/L (15-37); SGPT/ALT 12 U/L (13-61); SODIUM 142 mmol/L (136-145); TOT PROT 6.1 g/dl (6.4-8.2)
[2018-06-09] MEDS ORDERED: FUROSEMIDE 40 MG/4 ML INJECTABLE VIAL IVPUSH ONE (14:15)
--- NOTE | 2018-06-09 14:24 | EKG ---
Test Reason : Blood Pressure : / mmHG Vent. Rate : 061 BPM Atrial Rate : 054 BPM P-R Int : 000 ms QRS Dur : 094 ms QT Int : 432 ms P-R-T Axes : 000 -42 042 degrees QTc Int : 434 ms ATRIAL FIBRILLATION LEFT AXIS DEVIATION ANTEROLATERAL INFARCT (CITED ON OR BEFORE 25-FEB-2018) ABNORMAL ECG WHEN COMPARED WITH ECG OF 13-MAY-2018 15:54, NO SIGNIFICANT CHANGE WAS FOUND Confirmed by PEPPER DE LA CRUZ, CLOVER ([id number]) on 06/09/2018 2:24:20 PM Referred By: Confirmed By:CLOVER PABON MD
[2018-06-09] MEDS ORDERED: FUROSEMIDE 40 MG/4 ML INJECTABLE VIAL ONE (14:41)
--- NOTE | 2018-06-09 14:43 | CON.CARD ---
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 She states her symptoms have been getting progressively worse and are similar to presenting ED symptoms in april. She reports worsening exercise tolerance and sob even at rest, as well as worsening orthopnea and pedal edema. She has been compliant with all of her medication but was taken off Aldactone by PCP 2 w ago. Reports a transient episode of sharp L sided CP radiating to back 2 d ago that has since resolved as well as worsening palpitations. Patient reports that she was recently evaluated by Dr Pat quick for TAVR but was found to be ineligible due to high surgical risk, last saw in office 04/02/2018. Allergies: NKA Past surgical history: Rip hip replacement in 2007 and January 2017 Social history: No reported alcohol, cigarette, or drug use. PCP: Dr. Pompa - History Source History Provided By: Patient Limitations to Obtaining History: No Limitations - Past Medical History Cardio/Vascular: Yes: AFIB, Aortic Stenosis, CAD, CHF, HTN, Hyperlipdemia, Mitral Insufficiency, Murmur, Pulmonary Hypertension Pulmonary: Yes: Asthma, COPD, O2 Dependent, Pneumonia Musculoskeletal: Yes: Osteoarthritis (had hip and knee replacement, still with some healing problems ), Other Endocrine: Yes: Diabetes Mellitus - Past Surgical History Past Surgical History: Yes: Joint Replacement - Alcohol/Substance Use Hx Alcohol Use: No History of Substance Use: reports: None - Smoking History Smoking history: Never smoked Have you smoked in the past 12 months: No Aproximately how many cigarettes per day: 0 If you are a former smoker, when did you quit?: many years ago - Social History Usual Living Arrangement: Alone ADL: Support Services History of Recent Travel: No Home Medications - Allergies Allergies/Adverse Reactions: Allergies Allergy/AdvReac Type Severity Reaction Status Date / Time ciprofloxacin [From Cipro] Allergy Verified 06/09/18 12:38 ciprofloxacin HCl Allergy Verified 06/09/18 12:38 [From Cipro] - Home Medications Home Medications: Ambulatory Orders Lisinopril [Zestril] 40 mg PO DAILY 12/29/16 Simvastatin 40 mg PO DAILY 12/29/16 Omeprazole Magnesium [Prilosec Otc] 40 mg PO DAILY 09/06/17 Sertraline HCl [Zoloft -] 50 mg PO DAILY 09/09/17 Apixaban [Eliquis -] 5 mg PO BID #0 tablet 09/27/17 Albuterol Sulfate [Proair Respiclick] 90 mcg IH Q4H PRN 02/27/18 Spironolactone [Aldactone] 50 mg PO DAILY 15 Days #15 tablet 03/11/18 Furosemide [Lasix] 60 mg PO DAILY 05/13/18 Amlodipine Besylate [Norvasc -] 10 mg PO DAILY 30 Days #30 tablet 05/17/18 Family Disease History - Family Disease History Family Disease History: Other: Daughter (alive and well) Review of Systems - Review of Systems Cardiovascular: reports: Shortness of Breath Respiratory: reports: Orthopnea, SOB, SOB on Exertion Vital Signs: Vital Signs Temperature 99.0 F 06/09/18 14:37 Pulse Rate 59 L 06/09/18 14:37 Respiratory Rate 18 06/09/18 14:37 Blood Pressure 142/56 L 06/09/18 14:37 O2 Sat by Pulse Oximetry (%) 95 06/09/18 12:34 Constitutional: Yes: No Distress, Calm Neck: Yes: Supple Respiratory: Yes: Regular, Diminished, On Nasal O2 Gastrointestinal: Yes: Normal Bowel Sounds, Soft, Abdomen, Obese Cardiovascular: Yes: Regular Rate and Rhythm JVD: No Carotid Bruit: No Heart Sounds: Yes: S1, S2 Murmur: Yes: Systolic Murmur, Grade 2 Edema: Yes Edema: LLE: Trace, RLE: Trace - Other Data Labs, Other Data: CBC, BMP 06/09/18 13:00 06/09/18 13:00 INR, PTT INR 2.51 (0.83-1.09) H 06/09/18 13:00 Troponin, BNP 06/09/18 06/09/18 13:00 13:00 Troponin I < 0.02 B-Natriuretic Peptide 00920.9 H Troponin, BNP 06/09/18 06/09/18 13:00 13:00 Troponin I < 0.02 B-Natriuretic Peptide 46304.9 H Slow afib @ 61 LAD, PRWP Prior Cardiac Procedures: Cardiac Catheterization Ejection Fraction %: LVEF > or = 40 % Imaging - Results Chest X-ray: Report Reviewed (CHF) Problem List - Problems (1) Chronic anticoagulation Code(s): Z79.01 - SENIOR CARE (CURRENT) USE OF 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 (2) Anemia Code(s): D64.9 - ANEMIA, UNSPECIFIED Qualifiers: (3) Atrial fibrillation with slow ventricular response Code(s): I48.91 - UNSPECIFIED ATRIAL FIBRILLATION (4) Aortic valve stenosis Code(s): I35.0 - NONRHEUMATIC AORTIC (VALVE) STENOSIS Qualifiers: (5) COPD (chronic obstructive pulmonary disease) Code(s): J44.9 - CHRONIC OBSTRUCTIVE PULMONARY DISEASE, UNSPECIFIED Qualifiers: (6) Diabetes mellitus Code(s): E11.9 - TYPE 2 DIABETES MELLITUS WITHOUT COMPLICATIONS Qualifiers: (7) Hypercholesterolemia Code(s): E78.00 - PURE HYPERCHOLESTEROLEMIA, UNSPECIFIED (8) Acute on chronic diastolic (congestive) heart failure Code(s): I50.33 - ACUTE ON CHRONIC DIASTOLIC (CONGESTIVE) HEART FAILURE (9) Dyspnea Code(s): R06.00 - DYSPNEA, UNSPECIFIED Qualifiers: Dyspnea type: dyspnea on exertion Qualified Code(s): R06.09 - Other forms of dyspnea Assessment/Plan 09/10/2017 Echo: Normal LV size and fxn, LVEF 65%, mild cLVH, abnl LV compliance , mod TRINI, mild MR, TR, mod MG 25 mmHg 02/28/2018 Echo: Normal LV size and fxn LVEF 55-60%, restrictive physiology, mild LAE, mild MR, TR RVSP 40-40 mmHg, mod-severe CHARI 0.80 cm^2, MG 32 mmHg 03/26/2018 R&LHc: Non-obstructive CAD, mildly elevated right-sided pressures, mild pulmonary hypertension, moderate aortic valve stenosis (mean AV gradient 29 mmHg, CHARI 0.93 cm^2) 1. Persistent atrial fibrillation with slow ventricular response [id number] score of 7 on Eliquis 2. Acute on chronic diastolic heart failure and moderate aortic stenosis 3. COPD 4. Type 2 DM 5. Hypertensive heart disease 6. Hypercholesterolemia 7. Chronic kidney disease 8. Anemia 9. Degenerative joint disease post right THR 10. CAD, angina pectoris 11. H/o epistaxis PLAN: 1. IV diuresis and resume Aldactone 50 qd with monitor diuretic response, renal function 2. Observe HR response off Bystolic, resume Lisinopril 40 QD, continue Eliquis 5 BID, Lipitor 20 QHS and Amlodipine 10 QD 3. Bronchodilator, O2 as needed 4. F/u in office with Dr. Stewart 5. Thank you for consultative opportunity
[2018-06-09 15:41] LABS: URINE APPEARANCE CLEAR; URINE BILIRUBIN NEGATIVE (<2.0 mg/dL); URINE COLOR LTYELLOW; URINE GLUCOSE (UA) NEGATIVE (NEGATIVE); URINE KETONE NEGATIVE (NEGATIVE); URINE LEUK ESTERASE NEGATIVE (NEGATIVE); URINE NITRITE NEGATIVE (NEGATIVE); URINE PROTEIN NEGATIVE (NEGATIVE); URINE UROBILINOGEN NEGATIVE mg/dL (0.2-1.0)
--- NOTE | 2018-06-09 15:46 | HP ---
Admitting History and Physical - Primary Care Physician PCP: Arvind Ravi - Admission Chief Complaint: Breathing History of Present Illness: Ms Zafar is a very pleasant 82 year old female who comes in with worsening shortness of breath. She says it began 3-4 days ago. At first it was minimal but it has progressed. She says now she can only walk a few steps and then gets short of breath. She cannot lay flat secondary to shortness of breath. She has a dry cough associated with it. She became lightheaded with it. She has worsening edema as well. She has had multiple admissions in the past for this. She denies fevers, chills, passing out, chest pain or pressure, nausea, vomiting , diarrhea, constipation, or difficulty/pain on urination. She notes that she is short of breath even when talking currently. History Source: Patient Limitations to Obtaining History: No Limitations - Past Medical History Cardiovascular: Yes: AFIB, Aortic Stenosis, CAD, CHF, HTN, Hyperlipdemia, Mitral Insufficiency, Murmur, Pulmonary Hypertension Pulmonary: Yes: Asthma, COPD, O2 Dependent, Pneumonia Heme/Onc: Yes: Anemia Musculoskeletal: Yes: Osteoarthritis (had hip and knee replacement, still with some healing problems ), Other Endocrine: Yes: Diabetes Mellitus - Past Surgical History Past Surgical History: Yes: Joint Replacement - Smoking History Smoking history: Never smoked Have you smoked in the past 12 months: No Aproximately how many cigarettes per day: 0 If you are a former smoker, when did you quit?: many years ago - Alcohol/Substance Use Hx Alcohol Use: No History of Substance Use: reports: None - Social History Usual Living Arrangement: Yes: Assisted Living ADL: Support Services History of Recent Travel: No Home Medications - Allergies Allergies/Adverse Reactions: Allergies Allergy/AdvReac Type Severity Reaction Status Date / Time ciprofloxacin [From Cipro] Allergy Verified 06/09/18 12:38 ciprofloxacin HCl Allergy Verified 06/09/18 12:38 [From Cipro] - Home Medications Home Medications: Ambulatory Orders Lisinopril [Zestril] 40 mg PO DAILY 12/29/16 Simvastatin 40 mg PO DAILY 12/29/16 Omeprazole Magnesium [Prilosec Otc] 40 mg PO DAILY 09/06/17 Sertraline HCl [Zoloft -] 50 mg PO DAILY 09/09/17 Apixaban [Eliquis -] 5 mg PO BID #0 tablet 09/27/17 Albuterol Sulfate [Proair Respiclick] 90 mcg IH Q4H PRN 02/27/18 Spironolactone [Aldactone] 50 mg PO DAILY 15 Days #15 tablet 03/11/18 Furosemide [Lasix] 60 mg PO DAILY 05/13/18 Amlodipine Besylate [Norvasc -] 10 mg PO DAILY 30 Days #30 tablet 05/17/18 Family Disease History - Family Disease History Family Disease History: Other: Brother (HTN, ), Daughter (alive and well ) Review of Systems Findings/Remarks: Full review of systems obtained, as per HPI and otherwise negative. Physical Examination Vital Signs: Vital Signs Temperature 37.2 C 06/09/18 14:37 Pulse Rate 59 L 06/09/18 14:37 Respiratory Rate 18 06/09/18 14:37 Blood Pressure 142/56 L 06/09/18 14:37 O2 Sat by Pulse Oximetry (%) 95 06/09/18 12:34 Constitutional: Yes: Well Nourished, No Distress, Calm Cardiovascular: Yes: Regular Rate and Rhythm, Murmur (loud holosytolic ejection murmur at all points). No: Gallop, Rub Respiratory: Yes: Rales, Tachypnea. No: Regular, CTA Bilaterally, Rhonchi, Wheezes Gastrointestinal: Yes: Normal Bowel Sounds, Soft. No: Distention, Tenderness Extremities: Yes: WNL Edema: Yes Edema: LLE: 2+, RLE: 2+ Labs: CBC, BMP 06/09/18 13:00 06/09/18 13:00 Imaging - Results Chest X-ray: Report Reviewed, Image Reviewed Problem List - Problems (1) CHF exacerbation Assessment/Plan: -patient presents with CHF exacerbation -recently taken off of spironolactone secondary to lightheadedness -seen by cardiology -admit to telemetry -diurese with lasix 80mg IV bid -restart aldactone -continue lisinopril -hold bystolic per cardiology recommendations -I/Os and daily weights Code(s): I50.9 - HEART FAILURE, UNSPECIFIED Qualifiers: Heart failure type: diastolic Qualified Code(s): I50.33 - Acute on chronic diastolic (congestive) heart failure (2) Chronic anticoagulation Assessment/Plan: -continue eliquis Code(s): 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 (3) HTN (hypertension) Assessment/Plan: -continue medications as above -monitor Code(s): I10 - ESSENTIAL (PRIMARY) HYPERTENSION Qualifiers: (4) Aortic valve stenosis Assessment/Plan: -patient evaluated for possible intervention but unable to undergo -loud murmur noted, patient says chronic Code(s): I35.0 - NONRHEUMATIC AORTIC (VALVE) STENOSIS Qualifiers: (5) Chronic kidney disease (CKD) Assessment/Plan: -at baseline -closely monitor since on multiple diuretics Code(s): N18.9 - CHRONIC KIDNEY DISEASE, UNSPECIFIED Qualifiers: Chronic kidney disease stage: stage 2 (mild) Qualified Code(s): N18.2 - Chronic kidney disease, stage 2 (mild) (6) Atrial fibrillation Assessment/Plan: -continue eliquis -holding bystolic -sounds in sinus rhythm on exam Code(s): I48.91 - UNSPECIFIED ATRIAL FIBRILLATION Qualifiers: Atrial fibrillation type: persistent Qualified Code(s): I48.1 - Persistent atrial fibrillation
[2018-06-09] MEDS ORDERED: SPIRONOLACTONE 25 MG TABLET (FP) ONE (16:29)
[2018-06-09] MEDS: SPIRONOLACTONE 25 MG TABLET (FP) PO SCH (16:41)
[2018-06-09] MEDS ORDERED: APIXABAN 5 MG TABLET PO ONE (22:15)
[2018-06-09] MEDS ORDERED: ATORVASTATIN CA 10 MG TABLET (FP) ONE (22:15)
[2018-06-09] MEDS ORDERED: ACETAMINOPHEN 325 MG TABLET (FP) ONE (22:19)
[2018-06-09] MEDS: ATORVASTATIN CA 20 MG TABLET (FP) PO SCH (22:19)
[2018-06-09] MEDS: APIXABAN 5 MG TABLET PO SCH (22:19)
[2018-06-09] MEDS: ACETAMINOPHEN 325 MG TABLET (FP) PO PRN (22:21)
[2018-06-10] MEDS ORDERED: FUROSEMIDE 40 MG/4 ML INJECTABLE VIAL ONE (06:16)
[2018-06-10] MEDS: FUROSEMIDE 40 MG/4 ML INJECTABLE VIAL IVPB SCH ×2 (06:20→15:31)
[2018-06-10] MEDS ORDERED: ALBUTEROL SO4 0.083% IH SOL 2.5 MG/3 ML VIAL.NEB. NEB ONE (06:30)
[2018-06-10] MEDS ORDERED: ALBUTEROL SO4 2.5/IPRATROPIUM 0.5 INH SOL 3 ML VIAL.NEB. NEB ONE ×3 (06:32→20:11)
[2018-06-10 06:56] LABS: BASO % 0.5 % (0-2.0); EOS % 2.3 % (0-4.5); HEMATOCRIT 32.5 % (32.4-45.2); HEMOGLOBIN 10.1 GM/dL (10.7-15.3); LYMPH % 10.5 % (8-40); MCH 28.2 pg (25.7-33.7); MCHC 30.9 g/dl (32.0-36.0); MEAN CELL VOLUME 91.2 fl (80-96); MEAN PLT VOLUME 9.8 fl (7.5-11.1); MONO % 12.8 % (3.8-10.2); NEUT % 73.9 % (42.8-82.8); PLATELET COUNT 188 K/MM3 (134-434); RBC 3.57 M/mm3 (3.60-5.2); RDW 15.2 % (11.6-15.6); WHITE BLOOD COUNT 9.8 K/mm3 (4.0-10.0)
[2018-06-10 07:32] LABS: ANION GAP 9 MMOL/L (8-16); BLOOD UREA NITROGEN 26 mg/dL (7-18); CALCIUM 8.4 mg/dL (8.5-10.1); CHLORIDE 107 mmol/L (98-107); CO2 26 mmol/L (21-32); CREATININE 1.1 mg/dL (0.55-1.3); GLUCOSE,RANDOM 91 mg/dL (74-106); MAGNESIUM 1.8 mg/dL (1.8-2.4); PHOSPHOROUS 3.4 mg/dL (2.5-4.9); POTASSIUM 3.4 mmol/L (3.5-5.1); SODIUM 142 mmol/L (136-145)
[2018-06-10] MEDS ORDERED: PATIENT'S OWN MEDICATION (NON-FORMULARY) (Spironolactone [Aldactone] 50 MG) PO SCH (10:00)
[2018-06-10] MEDS ORDERED: NEBIVOLOL 10 MG TABLET (FP) PO SCH (10:00)
--- NOTE | 2018-06-10 10:07 | PN ---
Progress Note, Physician Chief Complaint: Events noted Dyspnea persists History of Present Illness: Patient was seen and examined. Awake and alert. Chart was reviewed Persistent dyspnea and mild chest discomfort. Denies palpitations. Denies fever or chills - Current Medication List Current Medications: Active Medications Acetaminophen (Tylenol -) 650 mg PO Q4H PRN PRN Reason: FEVER Last Admin: 06/09/18 22:21 Dose: 650 mg Amlodipine Besylate (Norvasc -) 10 mg PO DAILY [facility] Apixaban (Eliquis -) 5 mg PO BID [facility] Last Admin: 06/09/18 22:19 Dose: 5 mg Atorvastatin Calcium (Lipitor -) 20 mg PO HS [facility] Last Admin: 06/09/18 22:19 Dose: 20 mg Furosemide (Lasix Injection -) 80 mg IVPB BID@0600,1400 [facility] Last Admin: 06/10/18 06:20 Dose: 80 mg Lisinopril (Prinivil) 40 mg PO DAILY [facility] Sertraline HCl (Zoloft -) 50 mg PO DAILY [facility] Spironolactone (Aldactone -) 50 mg PO DAILY [facility] Last Admin: 06/09/18 16:41 Dose: 50 mg - Objective Vital Signs: Vital Signs Temperature 98.5 F 06/10/18 04:54 Pulse Rate 66 06/10/18 04:54 Respiratory Rate 18 06/10/18 04:54 Blood Pressure 108/66 06/10/18 04:54 O2 Sat by Pulse Oximetry (%) 92 L 06/10/18 04:54 Neck: Yes: Supple Cardiovascular: Yes: Pulse Irregular, Murmur (JAZMYN), S1, S2 Respiratory: Yes: Diminished Gastrointestinal: Yes: Normal Bowel Sounds, Soft. No: Tenderness Edema: No Additional Findings/Remarks: - Review of Systems Constitutional: denies: Chills, Fever Cardiovascular: reports: Chest Pain. denies: Palpitations, (+) Shortness of Breath Respiratory: reports: Cough. denies: Hemoptysis, Orthopnea, PND, (+) SOB, SOB on Exertion Gastrointestinal: denies: Abdominal Pain, Constipation, Diarrhea, Melena, Nausea , Rectal Bleeding, Vomiting Neurological: denies: Dizziness, Headache, Seizure, Syncope Labs: CBC, BMP 06/10/18 05:15 06/10/18 05:15 INR, PTT INR 2.51 (0.83-1.09) H 06/09/18 13:00 Problem List - Problems (1) Anemia Code(s): D64.9 - ANEMIA, UNSPECIFIED Qualifiers: (2) Atrial fibrillation with slow ventricular response Code(s): I48.91 - UNSPECIFIED ATRIAL FIBRILLATION (3) CHF exacerbation Code(s): I50.9 - HEART FAILURE, UNSPECIFIED Qualifiers: Heart failure type: diastolic Qualified Code(s): I50.33 - Acute on chronic diastolic (congestive) heart failure (4) Chronic anticoagulation Code(s): Z79.01 - RESIDENTIAL (CURRENT) USE OF 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 (5) HTN (hypertension) Code(s): I10 - ESSENTIAL (PRIMARY) HYPERTENSION Qualifiers: (6) Aortic valve stenosis Code(s): I35.0 - NONRHEUMATIC AORTIC (VALVE) STENOSIS Qualifiers: Cardiac valve disease etiology: nonrheumatic Qualified Code(s): I35.0 - Nonrheumatic aortic (valve) stenosis (7) COPD (chronic obstructive pulmonary disease) Code(s): J44.9 - CHRONIC OBSTRUCTIVE PULMONARY DISEASE, UNSPECIFIED Qualifiers: (8) Diabetes mellitus Code(s): E11.9 - TYPE 2 DIABETES MELLITUS WITHOUT COMPLICATIONS Qualifiers: (9) Hypercholesterolemia Code(s): E78.00 - PURE HYPERCHOLESTEROLEMIA, UNSPECIFIED (10) Acute on chronic diastolic (congestive) heart failure Code(s): I50.33 - ACUTE ON CHRONIC DIASTOLIC (CONGESTIVE) HEART FAILURE (11) [id number] kidney injury Code(s): N17.9 - ACUTE KIDNEY FAILURE, UNSPECIFIED; N18.9 - CHRONIC KIDNEY DISEASE, UNSPECIFIED Qualifiers: Acute renal failure type: unspecified Chronic kidney disease stage: stage 2 (mild) Qualified Code(s): N17.9 - Acute kidney failure, unspecified; N18.2 - Chronic kidney disease, stage 2 (mild) (12) Epistaxis Code(s): R04.0 - EPISTAXIS (13) Diastolic dysfunction Code(s): I51.9 - HEART DISEASE, UNSPECIFIED (14) Mitral valve regurgitation Code(s): I34.0 - NONRHEUMATIC MITRAL (VALVE) INSUFFICIENCY Qualifiers: Cardiac valve disease etiology: nonrheumatic Qualified Code(s): I34.0 - Nonrheumatic mitral (valve) insufficiency (15) Tricuspid valve regurgitation Code(s): I07.1 - RHEUMATIC TRICUSPID INSUFFICIENCY Qualifiers: Cardiac valve disease etiology: nonrheumatic Qualified Code(s): I36.1 - Nonrheumatic tricuspid (valve) insufficiency Assessment/Plan 1. Persistent atrial fibrillation with slow ventricular response [id number] score of 7 on DOAC/Eliquis 2. Acute on chronic diastolic heart failure and moderate aortic stenosis 3. COPD 4. Type 2 DM 5. Hypertensive heart disease 6. Hypercholesterolemia 7. Chronic kidney disease 8. Anemia 9. Degenerative joint disease post right THR 10. CAD, angina pectoris 11. History of epistaxis PLAN: 1. IV diuresis and resume Aldactone 50 mg QD with monitor renal function and electrolytes 2. Off Bystolic. Continue Lisinopril 40 mg QD, Eliquis 5 mg BID, Lipitor 20 mg QHS and Amlodipine 10 mg QD 3. Bronchodilator and O2 as needed 4. Deemed not a candidate for aortic valve surgery at this time Further plans are to follow Armen Stewart MD
[2018-06-10] MEDS: SPIRONOLACTONE 25 MG TABLET (FP) PO SCH (11:34)
[2018-06-10] MEDS: SERTRALINE HCL 50 MG TABLET (FP) PO SCH (11:35)
[2018-06-10] MEDS: amLODIPine BESYLATE 10 MG TABLET (FP) PO SCH (11:35)
[2018-06-10] MEDS: APIXABAN 5 MG TABLET PO SCH ×2 (11:35→22:49)
[2018-06-10] MEDS: LISINOPRIL 20 MG TABLET (FP) PO SCH (11:35)
[2018-06-10 11:55] LABS: ARTERIAL BLD GAS O2 SATURATION 88.1 % (90-98.9); ARTERIAL BLOOD GAS BASE EXCESS 2.2 meq/l (-2-2); ARTERIAL BLOOD GAS PCO2 39.9 mmHg (35-45); ARTERIAL BLOOD GAS pH 7.43 (7.35-7.45)
[2018-06-10 12:11] LABS: ALLENS TEST POSITIVE
--- NOTE | 2018-06-10 17:08 | PN ---
Teaching Attending Note Name of Resident: Frida Diaz ATTENDING PHYSICIAN STATEMENT I saw and evaluated the patient. I reviewed the resident's note and discussed the case with the resident. I agree with the resident's findings and plan as documented. SUBJECTIVE: Ms Zafar complains of shortness of breath today. Also says she has arthritic pains that are chronic. No cp or n/v. OBJECTIVE: Last Vital Signs Temp Pulse Resp BP Pulse Ox 37.5 C 72 20 152/62 92 L 06/10/18 16:40 06/10/18 16:40 06/10/18 16:40 06/10/18 16:40 06/10/18 04:54 Gen: slight distress Pulm: tachypneic, bibasilar ronchi, slight wheezing in all lung chin CV: rrr w/ loud holosystolic ejection murmur Abd: +bs, s/nt/nd Ext: 1+ BLE edema CBC, BMP 06/10/18 05:15 06/10/18 05:15 ASSESSMENT AND PLAN: (1) CHF exacerbation Assessment/Plan: -cardilogy following -diurese with lasix 80mg IV bid -continue aldactone -continue lisinopril -hold bystolic per cardiology recommendations -I/Os and daily weights Code(s): I50.9 - HEART FAILURE, UNSPECIFIED Qualifiers: Heart failure type: diastolic Qualified Code(s): I50.33 - Acute on chronic diastolic (congestive) heart failure (2) Chronic anticoagulation Assessment/Plan: -continue eliquis 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 (3) HTN (hypertension) Assessment/Plan: -one episode of normotensive bp, otherwise hypertensive -add back bystolic when ok with cardiology -may need further adjustment as well Code(s): I10 - ESSENTIAL (PRIMARY) HYPERTENSION Qualifiers: (4) Aortic valve stenosis Assessment/Plan: -patient evaluated for possible intervention but unable to undergo -loud murmur noted, patient says chronic Code(s): I35.0 - NONRHEUMATIC AORTIC (VALVE) STENOSIS Qualifiers: (5) Chronic kidney disease (CKD) Assessment/Plan: -at baseline -closely monitor since on multiple diuretics Code(s): N18.9 - CHRONIC KIDNEY DISEASE, UNSPECIFIED Qualifiers: Chronic kidney disease stage: stage 2 (mild) Qualified Code(s): N18.2 - Chronic kidney disease, stage 2 (mild) (6) Atrial fibrillation Assessment/Plan: -continue eliquis -holding bystolic -sounds in sinus rhythm on exam Code(s): I48.91 - UNSPECIFIED ATRIAL FIBRILLATION Qualifiers: Atrial fibrillation type: persistent Qualified Code(s): I48.1 - Persistent atrial fibrillation (7) COPD -patient with hypoxia and wheezing -will add scheduled bronchodilators -if does not improve, consider systemic steroids for short time -may also benefit from inhaled corticosteroid with LABA -continue oxygen support (8) Acute on chronic hypoxic respiratory failure -as above Problem List - Problems (1) CHF exacerbation Code(s): I50.9 - HEART FAILURE, UNSPECIFIED Qualifiers: Heart failure type: diastolic Qualified Code(s): I50.33 - Acute on chronic diastolic (congestive) heart failure (2) Chronic anticoagulation 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 (3) HTN (hypertension) Code(s): I10 - ESSENTIAL (PRIMARY) HYPERTENSION Qualifiers: (4) Aortic valve stenosis Code(s): I35.0 - NONRHEUMATIC AORTIC (VALVE) STENOSIS Qualifiers: Cardiac valve disease etiology: nonrheumatic Qualified Code(s): I35.0 - Nonrheumatic aortic (valve) stenosis (5) Chronic kidney disease (CKD) Code(s): N18.9 - CHRONIC KIDNEY DISEASE, UNSPECIFIED Qualifiers: Chronic kidney disease stage: stage 2 (mild) Qualified Code(s): N18.2 - Chronic kidney disease, stage 2 (mild) (6) Atrial fibrillation Code(s): I48.91 - UNSPECIFIED ATRIAL FIBRILLATION Qualifiers: Atrial fibrillation type: persistent Qualified Code(s): I48.1 - Persistent atrial fibrillation (7) Acute on chronic respiratory failure with hypoxemia Code(s): J96.21 - ACUTE AND CHRONIC RESPIRATORY FAILURE WITH HYPOXIA (8) COPD (chronic obstructive pulmonary disease) Code(s): J44.9 - CHRONIC OBSTRUCTIVE PULMONARY DISEASE, UNSPECIFIED Qualifiers:
[2018-06-10] MEDS ORDERED: POTASSIUM CHLORIDE TABS 20 MEQ TABLET.ER (FP) PO ONE (17:50)
[2018-06-10] MEDS ORDERED: ACETAMINOPHEN 325 MG TABLET (FP) ONE (17:50)
[2018-06-10] MEDS: POTASSIUM CHLORIDE TABS 20 MEQ TABLET.ER (FP) PO SCH (17:58)
[2018-06-10] MEDS: ACETAMINOPHEN 325 MG TABLET (FP) PO PRN (17:58)
--- NOTE | 2018-06-10 18:11 | EKG ---
Test Reason : Blood Pressure : / mmHG Vent. Rate : 066 BPM Atrial Rate : 129 BPM P-R Int : 000 ms QRS Dur : 094 ms QT Int : 408 ms P-R-T Axes : 000 -52 146 degrees QTc Int : 427 ms ATRIAL FIBRILLATION LEFT AXIS DEVIATION ANTEROLATERAL INFARCT (CITED ON OR BEFORE 25-FEB-2018) ABNORMAL ECG Confirmed by MD IVON, MIKE ([id number]) on 06/10/2018 6:10:49 PM Referred By: Em OLSON Confirmed By:MIKE DEL VALLE MD
--- NOTE | 2018-06-10 19:20 | PN ---
Physical Exam: SUBJECTIVE: Patient seen and examined by me at bedside. Patient continues to have persistent shortness of breath and hypoxia Currently on 3L 02 NC saturating at 88%-89%. Increased 02 to 4L with improvement to 91% Complains of full body aches and pain from arthritis Otherwise, patient denies any chest pain, abdominal pain, nausea, vomiting, headaches, acute vision changes, urinary symptoms. OBJECTIVE: Vital Signs Period Temp Pulse Resp BP Sys/Mo Pulse Ox Last 24 Hr 98.5 F-99.5 F 60-75 18-22 108-159/62-83 92-93 GENERAL: The patient is awake, alert, fully oriented, emotional and teary, in mild respiratory distress. EYES: Sclera anicteric, conjunctiva clear. No ptosis. ENT: Moist mucous membranes. LUNGS: Crackles throughout lung bases bilaterally with poor inspiratory effort, tachypneic with expiratory wheezing HEART: Regular rate and rhythm, normal S1 and S2 with holosytolic ejection murmur. ABDOMEN: Soft, nontender, nondistended, normoactive bowel sounds. EXTREMITIES: 1+ Pitting edema bilaterally. Laboratory Results - last 24 hr 06/10/18 06/10/18 06/10/18 05:15 05:15 10:30 WBC 9.8 RBC 3.57 L Hgb 10.1 L Hct 32.5 MCV 91.2 MCH 28.2 MCHC 30.9 L RDW 15.2 Plt Count 188 MPV 9.8 Absolute Neuts (auto) 7.2 Neutrophils % 73.9 Lymphocytes % 10.5 D Monocytes % 12.8 H Eosinophils % 2.3 D Basophils % 0.5 Nucleated RBC % 0 Anticoagulation Therapy No Result Required. Puncture Site Left radial ABG pH 7.43 ABG pCO2 at Pt Temp 39.9 ABG pO2 at Pt Temp 55.0 L D ABG HCO3 26.1 H ABG O2 Sat (Measured) 88.1 L ABG O2 Content 11.8 L ABG Base Excess 2.2 H Dmitri Test Positive O2 Delivery Device Nasal cannula Oxygen Flow Rate 3l Vent Mode No Result Required. Vent Rate No Result Required. Mechanical Rate No Result Required. Pressure Support Vent No Result Required. Sodium 142 Potassium 3.4 L Chloride 107 Carbon Dioxide 26 Anion Gap 9 BUN 26 H Creatinine 1.1 Creat Clearance w eGFR 47.43 POC Glucometer Random Glucose 91 Calcium 8.4 L Phosphorus 3.4 Magnesium 1.8 Creatine Kinase 41 Troponin I < 0.02 Active Medications Generic Name Dose Route Start Last Admin Trade Name Lowq PRN Reason Stop Dose Admin Acetaminophen 650 mg 06/09/18 15:44 06/10/18 17:58 Tylenol - PO 650 mg Q4H PRN Administration FEVER Albuterol/Ipratropium 1 amp 06/10/18 20:00 Duoneb - NEB RTID PK Amlodipine Besylate 10 mg 06/10/18 10:00 06/10/18 11:35 Norvasc - PO 10 mg DAILY PK Administration Apixaban 5 mg 06/09/18 22:00 06/10/18 11:35 Eliquis - PO 5 mg BID PK Administration Atorvastatin Calcium 20 mg 06/09/18 22:00 06/09/18 22:19 Lipitor - PO 20 mg HS PK Administration Furosemide 80 mg 06/10/18 06:00 06/10/18 15:31 Lasix Injection - IVPB 80 mg BID@0600,1400 PK Administration Lisinopril 40 mg 06/10/18 10:00 06/10/18 11:35 Prinivil PO 40 mg DAILY PK Administration Pantoprazole Sodium 20 mg 06/10/18 19:00 Protonix - PO DAILY PK Potassium Chloride 20 meq 06/10/18 17:15 06/10/18 17:58 K-Dur - PO 20 meq DAILY PK Administration Prednisone 40 mg 06/10/18 19:00 Deltasone - PO DAILY PK Sertraline HCl 50 mg 06/10/18 10:00 06/10/18 11:35 Zoloft - PO 50 mg DAILY PK Administration Spironolactone 50 mg 06/09/18 16:00 06/10/18 11:34 Aldactone - PO 50 mg DAILY PK Administration ASSESSMENT/PLAN: Patient is an 82 year old female with a PMHx of COPD, diastolic heart failure and moderate aortic stenosis who presented with worsening shortness of breath and found to have Acute on chronic diastolic CHF w/ COPD exacerbation. Acute on Chronic Diastolic CHF -Continue IV diuresis with Aldactone 50mg daily -Continue Lasix 80mg IV BID -Continue Lisinopril 40mg daily -Continue -Hold Bystolic due to COPD exacerbation -Monitor BMP and electrolytes while on diuretics. -Daily Weights and strict I&O's -Continue 02 Aortic Stenosis -Not a candidate for Valve surgery at this time Acute on Chronic COPD -Started patient on Prednisone 40mg due to wheezing and worsening shortness of breath. -Continue Duo-Neb TID -Continue 02 NC and 02 monitoring Hypokalemia -Likely from Lasix -Continue daily Potassium 20meq PO Persistent Atrial Fibrillation -Chadsvasc score 7 -Continue Eliquis 5mg BID NIDDMII -ISS -BGM HTN -Continue Aldactone 50mg daily -Continue Lisinopril 40mg daily -Continue Amlodipine 10mg daily -Continue monitoring BP CKD -At baseline -Continue daily BMP HLD -Continue Lipitor 20mg F/E/N -On no fluids -Hypokalemia. Replete and repeat -Sodium controlled diet Prophylaxis -Eliquis 5mg BID for DVT -Protonix 20mg for GI Disposition -Full code -Continue to diurese with Lasix Visit type - Emergency Visit Emergency Visit: Yes ED Registration Date: 06/09/18 Care time: The patient presented to the Emergency Department on the above date and was hospitalized for further evaluation of their emergent condition. - New Patient This patient is new to me today: Yes Date on this admission: 06/10/18 - Critical Care Critical Care patient: No
[2018-06-10] MEDS ORDERED: PANTOPRAZOLE 40 MG TABLET (FP) ONE (19:43)
[2018-06-10] MEDS ORDERED: predniSONE 20 MG TABLET (UD) ONE (19:43)
[2018-06-10] MEDS: PANTOPRAZOLE 20 MG TABLET (FP) PO SCH (19:51)
[2018-06-10] MEDS: predniSONE 20 MG TABLET (UD) PO SCH (19:51)
[2018-06-10] MEDS: ALBUTEROL SO4 2.5/IPRATROPIUM 0.5 INH SOL 3 ML VIAL.NEB. NEB SCH (21:05)
[2018-06-10] MEDS: ATORVASTATIN CA 20 MG TABLET (FP) PO SCH (22:49)
[2018-06-11] MEDS ORDERED: ALBUTEROL SO4 2.5/IPRATROPIUM 0.5 INH SOL 3 ML VIAL.NEB. NEB ONE (01:58)
[2018-06-11] MEDS: FUROSEMIDE 40 MG/4 ML INJECTABLE VIAL IVPB SCH (05:55)
[2018-06-11 06:39] LABS: BASO % 0.2 % (0-2.0); EOS % 0.1 % (0-4.5); HEMATOCRIT 30.3 % (32.4-45.2); HEMOGLOBIN 10.2 GM/dL (10.7-15.3); LYMPH % 4.1 % (8-40); MCH 30.3 pg (25.7-33.7); MCHC 33.6 g/dl (32.0-36.0); MEAN CELL VOLUME 90.1 fl (80-96); MEAN PLT VOLUME 9.7 fl (7.5-11.1); MONO % 1.9 % (3.8-10.2); NEUT % 93.7 % (42.8-82.8); PLATELET COUNT 199 K/MM3 (134-434); RBC 3.37 M/mm3 (3.60-5.2); RDW 15.2 % (11.6-15.6); WHITE BLOOD COUNT 6.6 K/mm3 (4.0-10.0)
[2018-06-11 06:41] LABS: INR 2.46 (0.83-1.09); PROTHROMBIN TIME (PATIENT) 29.3 SEC (9.7-13.0)
[2018-06-11 06:43] LABS: ACTIVATED PTT 33.3 SECONDS (25.2-36.5)
[2018-06-11 07:05] LABS: ALBUMIN 3.3 g/dl (3.4-5.0); ALK PHOS 73 U/L (45-117); ANION GAP 7 MMOL/L (8-16); BILIRUBIN,TOTAL 0.4 mg/dL (0.2-1); BLOOD UREA NITROGEN 33 mg/dL (7-18); CALCIUM 8.2 mg/dL (8.5-10.1); CHLORIDE 107 mmol/L (98-107); CO2 27 mmol/L (21-32); CREATININE 1.2 mg/dL (0.55-1.3); GLUCOSE,RANDOM 265 mg/dL (74-106); MAGNESIUM 1.6 mg/dL (1.8-2.4); PHOSPHOROUS 3.5 mg/dL (2.5-4.9); POTASSIUM 3.9 mmol/L (3.5-5.1); SGOT/AST 24 U/L (15-37); SGPT/ALT 20 U/L (13-61); SODIUM 141 mmol/L (136-145); TOT PROT 6.4 g/dl (6.4-8.2)
[2018-06-11] MEDS: ALBUTEROL SO4 2.5/IPRATROPIUM 0.5 INH SOL 3 ML VIAL.NEB. NEB SCH ×3 (08:14→20:33)
[2018-06-11] MEDS ORDERED: MAGNESIUM SULF 50% (8.12 MEQ/2 ML-1 GM VIAL) IVPB ONE (08:39)
[2018-06-11] MEDS: APIXABAN 5 MG TABLET PO SCH ×2 (09:44→22:05)
[2018-06-11] MEDS: POTASSIUM CHLORIDE TABS 20 MEQ TABLET.ER (FP) PO SCH (09:44)
[2018-06-11] MEDS: SERTRALINE HCL 50 MG TABLET (FP) PO SCH (09:45)
[2018-06-11] MEDS: LISINOPRIL 20 MG TABLET (FP) PO SCH (09:45)
[2018-06-11] MEDS: predniSONE 20 MG TABLET (UD) PO SCH (09:45)
[2018-06-11] MEDS: SPIRONOLACTONE 25 MG TABLET (FP) PO SCH (09:45)
[2018-06-11] MEDS: PANTOPRAZOLE 20 MG TABLET (FP) PO SCH (09:45)
[2018-06-11] MEDS: amLODIPine BESYLATE 10 MG TABLET (FP) PO SCH (09:46)
[2018-06-11] MEDS: ACETAMINOPHEN 325 MG TABLET (FP) PO PRN (09:54)
[2018-06-11] MEDS: DOCUSATE SODIUM 100 MG CAPSULE (FP) PO SCH (09:54)
[2018-06-11] MEDS: POLYETHYLENE GLYCOL 3350 119 GM BTL PO SCH (09:54)
[2018-06-11 10:42] LABS: ANISOCYTOSIS 0; MACROCYTOSIS 0; OVALOCYTE 1+; PLATELET ESTIMATE NORMAL
--- NOTE | 2018-06-11 11:14 | PN ---
Progress Note, Physician History of Present Illness: Sob, dry cough and chest tightness improving with diuresis. - Current Medication List Current Medications: Active Medications Acetaminophen (Tylenol -) 650 mg PO Q4H PRN PRN Reason: FEVER Last Admin: 06/11/18 09:54 Dose: 650 mg Albuterol/Ipratropium (Duoneb -) 1 amp NEB RTID [facility] Last Admin: 06/11/18 08:14 Dose: 1 amp Amlodipine Besylate (Norvasc -) 10 mg PO DAILY [facility] Last Admin: 06/11/18 09:46 Dose: 10 mg Apixaban (Eliquis -) 5 mg PO BID [facility] Last Admin: 06/11/18 09:44 Dose: 5 mg Atorvastatin Calcium (Lipitor -) 20 mg PO HS [facility] Last Admin: 06/10/18 22:49 Dose: 20 mg Docusate Sodium (Colace -) 100 mg PO DAILY [facility] Last Admin: 06/11/18 09:54 Dose: 100 mg Furosemide (Lasix Injection -) 80 mg IVPB BID@0600,1400 [facility] Last Admin: 06/11/18 05:55 Dose: 80 mg Insulin Aspart (Novolog Vial Sliding Scale -) 1 vial SQ ACHS [facility]; Protocol Lisinopril (Prinivil) 40 mg PO DAILY [facility] Last Admin: 06/11/18 09:45 Dose: 40 mg Pantoprazole Sodium (Protonix -) 20 mg PO DAILY [facility] Last Admin: 06/11/18 09:45 Dose: 20 mg Polyethylene Glycol (Miralax (For Daily Use) -) 17 gm PO DAILY [facility] Last Admin: 06/11/18 09:54 Dose: 17 gm Potassium Chloride (K-Dur -) 20 meq PO DAILY [facility] Last Admin: 06/11/18 09:44 Dose: 20 meq Prednisone (Deltasone -) 30 mg PO DAILY [facility] Sertraline HCl (Zoloft -) 50 mg PO DAILY [facility] Last Admin: 06/11/18 09:45 Dose: 50 mg Spironolactone (Aldactone -) 50 mg PO DAILY [facility] Last Admin: 06/11/18 09:45 Dose: 50 mg - Objective Vital Signs: Vital Signs Temperature 97.7 F 06/11/18 06:08 Pulse Rate 74 06/11/18 06:08 Respiratory Rate 20 06/11/18 06:08 Blood Pressure 157/67 06/11/18 06:08 O2 Sat by Pulse Oximetry (%) 95 06/11/18 02:03 Constitutional: Yes: No Distress, Calm, Thin Neck: Yes: Supple Cardiovascular: Yes: Regular Rate and Rhythm, Murmur (2/6 SM) Respiratory: Yes: Regular, Diminished, On Nasal O2 Gastrointestinal: Yes: Normal Bowel Sounds, Soft Edema: No Labs: CBC, BMP 06/11/18 06:00 06/11/18 06:00 INR, PTT INR 2.46 (0.83-1.09) H 06/11/18 06:00 - ....Imaging EKG: Report Reviewed (Tele: Afib) Problem List - Problems (1) Chronic anticoagulation 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 (2) Anemia Code(s): D64.9 - ANEMIA, UNSPECIFIED Qualifiers: (3) Atrial fibrillation with slow ventricular response Code(s): I48.91 - UNSPECIFIED ATRIAL FIBRILLATION (4) Aortic valve stenosis Code(s): I35.0 - NONRHEUMATIC AORTIC (VALVE) STENOSIS Qualifiers: Cardiac valve disease etiology: nonrheumatic Qualified Code(s): I35.0 - Nonrheumatic aortic (valve) stenosis (5) COPD (chronic obstructive pulmonary disease) Code(s): J44.9 - CHRONIC OBSTRUCTIVE PULMONARY DISEASE, UNSPECIFIED Qualifiers: (6) Diabetes mellitus Code(s): E11.9 - TYPE 2 DIABETES MELLITUS WITHOUT COMPLICATIONS Qualifiers: (7) Hypercholesterolemia Code(s): E78.00 - PURE HYPERCHOLESTEROLEMIA, UNSPECIFIED (8) Acute on chronic diastolic (congestive) heart failure Code(s): I50.33 - ACUTE ON CHRONIC DIASTOLIC (CONGESTIVE) HEART FAILURE (9) Dyspnea Code(s): R06.00 - DYSPNEA, UNSPECIFIED Qualifiers: Dyspnea type: dyspnea on exertion Qualified Code(s): R06.09 - Other forms of dyspnea Assessment/Plan 09/10/2017 Echo: Normal LV size and fxn, LVEF 65%, mild cLVH, abnl LV compliance , mod TRINI, mild MR, TR, mod MG 25 mmHg 02/28/2018 Echo: Normal LV size and fxn LVEF 55-60%, restrictive physiology, mild LAE, mild MR, TR RVSP 40-40 mmHg, mod-severe CHARI 0.80 cm^2, MG 32 mmHg 03/26/2018 R&LHc: Non-obstructive CAD, mildly elevated right-sided pressures, mild pulmonary hypertension, moderate aortic valve stenosis (mean AV gradient 29 mmHg, CHARI 0.93 cm^2) 1. Persistent atrial fibrillation with slow ventricular response [id number] score of 7 on DOAC/Eliquis 2. Acute on chronic diastolic heart failure and moderate aortic stenosis improving 3. COPD 4. Type 2 DM 5. Hypertensive heart disease 6. Hypercholesterolemia 7. Chronic kidney disease 8. Anemia 9. Degenerative joint disease post right THR 10. CAD, angina pectoris 11. History of epistaxis PLAN: 1. Decrease IV diuresis and continue Aldactone 50 mg QD with monitor renal function and electrolytes 2. Off Bystolic. Continue Lisinopril 40 mg QD, Eliquis 5 mg BID, Lipitor 20 mg QHS and Amlodipine 10 mg QD 3. Bronchodilator and O2 as needed 4. Deemed not a candidate for aortic valve surgery at this time 5. F/u in office with Dr. Stewart
--- NOTE | 2018-06-11 11:15 | PN ---
Teaching Attending Note Name of Resident: Frida Diaz ATTENDING PHYSICIAN STATEMENT I saw and evaluated the patient. I reviewed the resident's note and discussed the case with the resident. I agree with the resident's findings and plan as documented with exceptions below. SUBJECTIVE: Patient seen and examined. Breathing improved, denies any nausea, vomiting, abdominal or back pain or urinary symptoms. OBJECTIVE: Vital Signs Period Temp Pulse Resp BP Sys/Mo Pulse Ox Last 24 Hr 97.7 F-99.5 F 71-80 18-20 147-166/56-74 95-97 Intake & Output 06/08/18 06/09/18 06/10/18 06/11/18 23:59 23:59 23:59 23:59 Intake Total 50 Output Total 100 1500 700 Balance -100 -1500 -650 Weight 160 lb 181 lb 9.6 oz General: sitting in bed, mild tachypnea, but able to speak in full sentences Neck: soft Supple neck vein distension Chest; Bibasilar rales L>R CVS:S1 S2 irregularly irregular Abdomen:soft, NT, no suprapubic or CVA tenderness Extremities: 1+ pedal edema Home Medications Medication Instructions Recorded Lisinopril [Zestril] 40 mg PO DAILY 12/29/16 Simvastatin 40 mg PO DAILY 12/29/16 Omeprazole Magnesium [Prilosec Otc] 40 mg PO DAILY 09/06/17 Sertraline HCl [Zoloft -] 50 mg PO DAILY 09/09/17 Apixaban [Eliquis -] 5 mg PO BID #0 tablet 09/27/17 Albuterol Sulfate [Proair 90 mcg IH Q4H PRN 02/27/18 Respiclick] Spironolactone [Aldactone] 50 mg PO DAILY 15 Days #15 tablet 03/11/18 Furosemide [Lasix] 60 mg PO DAILY 05/13/18 Amlodipine Besylate [Norvasc -] 10 mg PO DAILY 30 Days #30 tablet 05/17/18 Active Medications Acetaminophen (Tylenol -) 650 mg PO Q4H PRN PRN Reason: FEVER Last Admin: 06/11/18 09:54 Dose: 650 mg Albuterol/Ipratropium (Duoneb -) 1 amp NEB RTID PK Last Admin: 06/11/18 08:14 Dose: 1 amp Amlodipine Besylate (Norvasc -) 10 mg PO DAILY [facility] Last Admin: 06/11/18 09:46 Dose: 10 mg Apixaban (Eliquis -) 5 mg PO BID [facility] Last Admin: 06/11/18 09:44 Dose: 5 mg Atorvastatin Calcium (Lipitor -) 20 mg PO HS [facility] Last Admin: 06/10/18 22:49 Dose: 20 mg Docusate Sodium (Colace -) 100 mg PO DAILY [facility] Last Admin: 06/11/18 09:54 Dose: 100 mg Furosemide (Lasix Injection -) 80 mg IVPB BID@0600,1400 [facility] Last Admin: 06/11/18 05:55 Dose: 80 mg Insulin Aspart (Novolog Vial Sliding Scale -) 1 vial SQ ACHS [facility]; Protocol Lisinopril (Prinivil) 40 mg PO DAILY [facility] Last Admin: 06/11/18 09:45 Dose: 40 mg Pantoprazole Sodium (Protonix -) 20 mg PO DAILY [facility] Last Admin: 06/11/18 09:45 Dose: 20 mg Polyethylene Glycol (Miralax (For Daily Use) -) 17 gm PO DAILY [facility] Last Admin: 06/11/18 09:54 Dose: 17 gm Potassium Chloride (K-Dur -) 20 meq PO DAILY [facility] Last Admin: 06/11/18 09:44 Dose: 20 meq Prednisone (Deltasone -) 30 mg PO DAILY [facility] Sertraline HCl (Zoloft -) 50 mg PO DAILY [facility] Last Admin: 06/11/18 09:45 Dose: 50 mg Spironolactone (Aldactone -) 50 mg PO DAILY [facility] Last Admin: 06/11/18 09:45 Dose: 50 mg Laboratory Results - last 24 hr 06/10/18 06/10/18 06/10/18 05:15 10:30 18:15 WBC RBC Hgb Hct MCV MCH MCHC RDW Plt Count MPV Absolute Neuts (auto) Neutrophils % Lymphocytes % Monocytes % Eosinophils % Basophils % Nucleated RBC % PT with INR INR PTT (Actin FS) Anticoagulation Therapy No Result Required. Puncture Site Left radial ABG pH 7.43 ABG pCO2 at Pt Temp 39.9 ABG pO2 at Pt Temp 55.0 L D ABG HCO3 26.1 H ABG O2 Sat (Measured) 88.1 L ABG O2 Content 11.8 L ABG Base Excess 2.2 H Dmitri Test Positive O2 Delivery Device Nasal cannula Oxygen Flow Rate 3l Vent Mode No Result Required. Vent Rate No Result Required. Mechanical Rate No Result Required. Pressure Support Vent No Result Required. Sodium 142 Potassium 3.4 L Chloride 107 Carbon Dioxide 26 Anion Gap 9 BUN 26 H Creatinine 1.1 Creat Clearance w eGFR 47.43 POC Glucometer [id number] Random Glucose 91 Calcium 8.4 L Phosphorus 3.4 Magnesium 1.8 Total Bilirubin AST ALT Alkaline Phosphatase Creatine Kinase 41 Troponin I < 0.02 Total Protein Albumin 06/11/18 06/11/18 06/11/18 06:00 06:00 06:00 WBC 6.6 RBC 3.37 L Hgb 10.2 L Hct 30.3 L MCV 90.1 MCH 30.3 MCHC 33.6 RDW 15.2 Plt Count 199 MPV 9.7 Absolute Neuts (auto) 6.2 Neutrophils % 93.7 H D Lymphocytes % 4.1 L D Monocytes % 1.9 L D Eosinophils % 0.1 D Basophils % 0.2 Nucleated RBC % 0 PT with INR 29.30 H INR 2.46 H PTT (Actin FS) 33.3 Anticoagulation Therapy Puncture Site ABG pH ABG pCO2 at Pt Temp ABG pO2 at Pt Temp ABG HCO3 ABG O2 Sat (Measured) ABG O2 Content ABG Base Excess Dmitri Test O2 Delivery Device Oxygen Flow Rate Vent Mode Vent Rate Mechanical Rate Pressure Support Vent Sodium 141 Potassium 3.9 Chloride 107 Carbon Dioxide 27 Anion Gap 7 L BUN 33 H Creatinine 1.2 Creat Clearance w eGFR 42.90 POC Glucometer Random Glucose 265 H Calcium 8.2 L Phosphorus 3.5 Magnesium 1.6 L Total Bilirubin 0.4 AST 24 ALT 20 Alkaline Phosphatase 73 Creatine Kinase Troponin I Total Protein 6.4 Albumin 3.3 L Microbiology 06/09/18 15:03 Urine - Urine Crandall Urine Culture - Final Proteus Mirabilis 2D echo results from 02/2018 reviewed Telemetry reviewed ASSESSMENT AND PLAN: 82 year old female with underlying history of CAD (non-obstructive), angina pectoris, diastolic LV dysfunction with history of congestive heart failure, admitted in 04/2018 with diarrhea/SARA/bradycardia, mitral valve disease with mitral valve regurgitation, aortic valve disease with moderate aortic valve stenosis, tricuspid valve disease with tricuspid valve regurgitation and pulmonary hypertension, persistent atrial fibrillation on Eliquis, HTN/HCVD, type 2 diabetes mellitus, hypercholesterolemia, COPD, anemia, admitted with acute on chronic diastolic heart failure exacerbation -Acute on chronic diastolic heart failure exacerbation -Moderate aortic stenosis, not a candidate for TAVR given high surgical risk per cardiolgoy -Persistent Atrial fibrillation with [id number] score of 7 -CKD stage II-III -Pulmonary hypertension -Asyptomatic bacteruria (proteus) -HTN -recent SARA/diarrhea/bradycardia in 04/2018 -HLD -h/o Type II DM (last A1c 5.5 in 02/2018) Plan: Clinically improved. Lasix 80mg IV BID, taper in 24 hours. Strict I/Os, daily weights. Cardiology input noted, continue aldactone/lisinopril/PO KCl suppl with close monitoring of renal function/electrolytes. Resume bystolic per cardiology. Continue Eliquis. Urine cx noted, urinalysis clean. D/c demetrius, sent repeat urine studies, hold off on abx and monitor clinically for now. Start BGM/ISS, check A1c, suspect steroid induced component. Change prednisone to 30 mg daily with rapid taper to off. Continue sertraline. DVTPPX eliquis as above Dispo pending clinical improvement in 48-72 hours. PT eval in 24 hours. CM input Plan discussed with patient, all questions answered.
[2018-06-11] MEDS ORDERED: FUROSEMIDE 40 MG/4 ML INJECTABLE VIAL IVPB SCH (11:21)
[2018-06-11] MEDS ORDERED: INSULIN (NOVOLOG) ASPART 100 UNITS/ML 10ML VIAL SQ ONE (11:34)
--- NOTE | 2018-06-11 14:53 | PN ---
Physical Exam: SUBJECTIVE: Patient seen and examined by me at bedside No acute events overnight Shortness of breath significantly improve dafter diuresis. Patient reports less shortness of breath at rest but still unable to exert herself without feeling short of breath. Reports not having a bowel movements in the last couple of days. Patient denies any fever, chills, nausea, vomiting, abdominal pain, chest pain, palpitations, urinary symptoms OBJECTIVE: Vital Signs Period Temp Pulse Resp BP Sys/Mo Pulse Ox Last 24 Hr 97.7 F-99.5 F 71-80 18-20 147-166/56-74 95-97 GENERAL: The patient is awake, alert, fully oriented, in no acute distress EYES: Sclera anicteric, conjunctiva clear. No ptosis. ENT: Moist mucous membranes. LUNGS: Bibasilar rales throughout lung bases L>R HEART: Regular rate and rhythm, normal S1 and S2 with holosytolic ejection murmur. ABDOMEN: Soft, nontender, nondistended, normoactive bowel sounds. EXTREMITIES: 1+ Pitting edema bilaterally. Laboratory Results 06/11/18 06:00 06/11/18 06:00 Active Medications Generic Name Dose Route Start Last Admin Trade Name Freq PRN Reason Stop Dose Admin Acetaminophen 650 mg 06/09/18 15:44 06/11/18 09:54 Tylenol - PO 650 mg Q4H PRN Administration FEVER Albuterol/Ipratropium 1 amp 06/10/18 20:00 06/11/18 08:14 Duoneb - NEB 1 amp RTID PK Administration Amlodipine Besylate 10 mg 06/10/18 10:00 06/11/18 09:46 Norvasc - PO 10 mg DAILY PK Administration Apixaban 5 mg 06/09/18 22:00 06/11/18 09:44 Eliquis - PO 5 mg BID PK Administration Atorvastatin Calcium 20 mg 06/09/18 22:00 06/10/18 22:49 Lipitor - PO 20 mg HS PK Administration Docusate Sodium 100 mg 06/11/18 10:00 06/11/18 09:54 Colace - PO 100 mg DAILY PK Administration Furosemide 40 mg 06/11/18 11:21 Lasix Injection - IVPB 06/11/18 23:59 BID@0600,1400 [facility] Insulin Aspart 1 vial 06/11/18 11:36 Novolog Vial Sliding Scale - SQ ACHS PK Protocol Lisinopril 40 mg 06/10/18 10:00 06/11/18 09:45 Prinivil PO 40 mg DAILY PK Administration Pantoprazole Sodium 20 mg 06/10/18 19:00 06/11/18 09:45 Protonix - PO 20 mg DAILY PK Administration Polyethylene Glycol 17 gm 06/11/18 10:00 06/11/18 09:54 Miralax (For Daily Use) - PO 17 gm DAILY PK Administration Potassium Chloride 20 meq 06/10/18 17:15 06/11/18 09:44 K-Dur - PO 20 meq DAILY PK Administration Prednisone 30 mg 06/12/18 10:00 Deltasone - PO DAILY PK Sertraline HCl 50 mg 06/10/18 10:00 06/11/18 09:45 Zoloft - PO 50 mg DAILY PK Administration Spironolactone 50 mg 06/09/18 16:00 06/11/18 09:45 Aldactone - PO 50 mg DAILY PK Administration ASSESSMENT/PLAN: Patient is an 82 year old female with a PMHx of COPD, diastolic heart failure and moderate aortic stenosis who presented with worsening shortness of breath and found to have Acute on chronic diastolic CHF w/ COPD exacerbation. Acute on Chronic Diastolic CHF -Continue IV diuresis with Lasix decreased to 40mg IVP BID -Continue Aldactone 50mg daily -Continue Lisinopril 40mg daily -Hold Bystolic -Monitor BMP and electrolytes while on diuretics. -Daily Weights and strict I&O's -Continue 02 Aortic Stenosis -Not a candidate for Valve surgery at this time Acute on Chronic COPD -Taper Prednisone to 30mg daily -Continue Duo-Neb TID -Continue 02 NC and 02 monitoring Hypokalemia -Likely from Lasix -Continue daily Potassium 20meq PO Persistent Atrial Fibrillation -Chadsvasc score 7 -Continue Eliquis 5mg BID Asyptomatic bacteruria -First urine culture positive for Proteus however urinalysis clean -Crandall discontinued with voiding trials -Repeat urine studies sent -Will monitor off antibiotics for no as patient offers no urinary symptoms -Bladder scanner Q6H NIDDMII -ISS -BGM HTN -Continue Aldactone 50mg daily -Continue Lisinopril 40mg daily -Continue Amlodipine 10mg daily -Continue monitoring BP CKD -At baseline -Continue daily BMP HLD -Continue Lipitor 20mg F/E/N -On no fluids -Hypokalemia. Replete and repeat -Sodium controlled diet Prophylaxis -Eliquis 5mg BID for DVT -Protonix 20mg for GI Disposition -Full code -Continue to diurese with Lasix. Expect 48-72 hours of inpatient for closer monitoring and improvement. Frida Diaz [id number] Visit type - Emergency Visit Emergency Visit: Yes ED Registration Date: 06/09/18 Care time: The patient presented to the Emergency Department on the above date and was hospitalized for further evaluation of their emergent condition. - New Patient This patient is new to me today: No - Critical Care Critical Care patient: No
[2018-06-11] MEDS ORDERED: INSULIN SLIDING SCALE (NOVOLOG) 1 VIAL SQ SCH (16:30)
[2018-06-11] MEDS: INSULIN SLIDING SCALE (NOVOLOG) 1 VIAL SQ SCH ×2 (16:51→22:05)
[2018-06-11 20:56] LABS: URINE APPEARANCE CLOUDY; URINE BILIRUBIN NEGATIVE (<2.0 mg/dL); URINE COLOR LTYELLOW; URINE GLUCOSE (UA) NEGATIVE (NEGATIVE); URINE KETONE NEGATIVE (NEGATIVE); URINE LEUK ESTERASE 1+ (NEGATIVE); URINE NITRITE NEGATIVE (NEGATIVE); URINE PROTEIN NEGATIVE (NEGATIVE); URINE UROBILINOGEN NEGATIVE mg/dL (0.2-1.0)
[2018-06-11 21:05] LABS: EPI CELLS RARE /HPF (FEW); URINE MUCUS RARE
[2018-06-11] MEDS: ATORVASTATIN CA 20 MG TABLET (FP) PO SCH (22:05)
[2018-06-11] MEDS ORDERED: DEXTROSE 5%-WATER - 50 ML IVPB ONE (22:09)
[2018-06-11] MEDS ORDERED: cefTRIAXone SODIUM 1 GM VIAL ONE (22:09)
[2018-06-11] MEDS ORDERED: CEFTRIAXONE 1 GM in DEXTROSE 5%-WATER - 50 ML IVPB ONE (22:15)
[2018-06-12] MEDS ORDERED: FUROSEMIDE 40 MG/4 ML INJECTABLE VIAL IVPUSH SCH (06:00)
[2018-06-12 06:25] LABS: HEMATOCRIT 27.7 % (32.4-45.2); HEMOGLOBIN 9.4 GM/dL (10.7-15.3); MCH 30.3 pg (25.7-33.7); MCHC 33.9 g/dl (32.0-36.0); MEAN CELL VOLUME 89.3 fl (80-96); MEAN PLT VOLUME 9.5 fl (7.5-11.1); PLATELET COUNT 212 K/MM3 (134-434); RBC 3.11 M/mm3 (3.60-5.2); RDW 14.7 % (11.6-15.6); WHITE BLOOD COUNT 11.7 K/mm3 (4.0-10.0)
[2018-06-12] MEDS: INSULIN SLIDING SCALE (NOVOLOG) 1 VIAL SQ SCH ×4 (06:31→22:26)
[2018-06-12] MEDS: ALBUTEROL SO4 2.5/IPRATROPIUM 0.5 INH SOL 3 ML VIAL.NEB. NEB SCH ×3 (07:11→20:45)
[2018-06-12 08:08] LABS: ALBUMIN 3.1 g/dl (3.4-5.0); ALK PHOS 62 U/L (45-117); ANION GAP 9 MMOL/L (8-16); BILIRUBIN,TOTAL 0.3 mg/dL (0.2-1); BLOOD UREA NITROGEN 45 mg/dL (7-18); CALCIUM 8.3 mg/dL (8.5-10.1); CHLORIDE 104 mmol/L (98-107); CO2 28 mmol/L (21-32); CREATININE 1.4 mg/dL (0.55-1.3); GLUCOSE,RANDOM 223 mg/dL (74-106); MAGNESIUM 1.9 mg/dL (1.8-2.4); PHOSPHOROUS 3.4 mg/dL (2.5-4.9); POTASSIUM 4.3 mmol/L (3.5-5.1); SGOT/AST 24 U/L (15-37); SGPT/ALT 25 U/L (13-61); SODIUM 141 mmol/L (136-145); TOT PROT 6.1 g/dl (6.4-8.2)
--- NOTE | 2018-06-12 09:52 | PN ---
Physical Exam: SUBJECTIVE: Patient seen and examined by me at bedside No acute events overnight Patient does report some mild dysuria after romo removed Found to have UTI and started on PO medications Offers no other complaints Denies any fever, chills, nausea, vomiting, abdominal pain, chest pain, palpitation, dizziness, acute vision changes. OBJECTIVE: Vital Signs Period Temp Pulse Resp BP Sys/Mo Pulse Ox Last 24 Hr 97.5 F-98.7 F 62-71 18-20 106-152/60-74 95-95 GENERAL: The patient is awake, alert, fully oriented, in no acute distress EYES: Sclera anicteric, conjunctiva clear. No ptosis. ENT: Moist mucous membranes. LUNGS: Bibasilar rales throughout lung bases L>R HEART: Regular rate and rhythm, normal S1 and S2 with holosytolic ejection murmur. ABDOMEN: Soft, nontender, nondistended, normoactive bowel sounds. EXTREMITIES: Trace Pitting edema bilaterally. Laboratory Results - last 24 hr CBC, BMP 06/12/18 06:00 06/12/18 06:00 Active Medications Generic Name Dose Route Start Last Admin Trade Name Freq PRN Reason Stop Dose Admin Acetaminophen 650 mg 06/09/18 15:44 06/11/18 09:54 Tylenol - PO 650 mg Q4H PRN Administration FEVER Albuterol/Ipratropium 1 amp 06/10/18 20:00 06/12/18 07:11 Duoneb - NEB 1 amp RTID PK Administration Amlodipine Besylate 10 mg 06/10/18 10:00 06/11/18 09:46 Norvasc - PO 10 mg DAILY PK Administration Apixaban 5 mg 06/09/18 22:00 06/11/18 22:05 Eliquis - PO 5 mg BID PK Administration Atorvastatin Calcium 20 mg 06/09/18 22:00 06/11/18 22:05 Lipitor - PO 20 mg HS [facility] Administration Cefuroxime Axetil 250 mg 06/12/18 08:30 Ceftin - PO BID@0830,2030 [facility] Docusate Sodium 100 mg 06/11/18 10:00 06/11/18 09:54 Colace - PO 100 mg DAILY PK Administration Furosemide 40 mg 06/12/18 06:00 06/12/18 06:31 Lasix Injection - IVPUSH 40 mg BID@0600,1400 PK Administration Insulin Aspart 1 vial 06/11/18 11:36 06/12/18 06:31 Novolog Vial Sliding Scale - SQ 6 units ACHS PK Administration Protocol Lisinopril 40 mg 06/10/18 10:00 06/11/18 09:45 Prinivil PO 40 mg DAILY PK Administration Pantoprazole Sodium 20 mg 06/10/18 19:00 06/11/18 09:45 Protonix - PO 20 mg DAILY PK Administration Polyethylene Glycol 17 gm 06/11/18 10:00 06/11/18 09:54 Miralax (For Daily Use) - PO 17 gm DAILY PK Administration Potassium Chloride 20 meq 06/10/18 17:15 06/11/18 09:44 K-Dur - PO 20 meq DAILY PK Administration Prednisone 30 mg 06/12/18 10:00 Deltasone - PO DAILY PK Sertraline HCl 50 mg 06/10/18 10:00 06/11/18 09:45 Zoloft - PO 50 mg DAILY PK Administration Spironolactone 50 mg 06/09/18 16:00 06/11/18 09:45 Aldactone - PO 50 mg DAILY PK Administration ASSESSMENT/PLAN: Patient is an 82 year old female with a PMHx of COPD, diastolic heart failure and moderate aortic stenosis who presented with worsening shortness of breath and found to have Acute on Chronic diastolic CHF w/ COPD exacerbation. Acute on Chronic Diastolic CHF -Continue IV diuresis with Lasix decreased to 40mg daily -Continue Aldactone 50mg daily -Continue Lisinopril 40mg daily -Hold Bystolic -Monitor BMP and electrolytes while on diuretics. -Daily Weights and strict I&O's. Weight down from 82kg to 81kg from yesterday -Continue 02 Aortic Stenosis -Not a candidate for Valve surgery at this time Acute on Chronic COPD -Taper Prednisone to 30mg daily -Continue Duo-Neb TID -Continue 02 and 02 monitoring Hypokalemia- Improving -Likely from Lasix -Continue daily Potassium 20meq PO Persistent Atrial Fibrillation -Chadsvasc score 7 -Continue Eliquis 5mg BID Asyptomatic bacteruria -Repeat U/A 1+ LE with WBC. Patient now complaints of dysuria -Urine culture pending -Ceftin 250mg BID started and will give a total of 5 days Acute Kidney Injury -Likely secondary to Lasix use -Decreased lasix to 40mg daily -Continue to monitor NIDDMII -ISS -BGM HTN -Continue Aldactone 50mg daily -Continue Lisinopril 40mg daily -Continue Amlodipine 10mg daily -Continue monitoring BP CKD -At baseline -Continue daily BMP HLD -Continue Lipitor 20mg F/E/N -On no fluids -Electrolytes wnl -Sodium controlled diet Prophylaxis -Eliquis 5mg BID for DVT -Protonix 20mg for GI Disposition -Full code -Continue to diurese with Lasix. Expect 48-72 hours of inpatient for closer monitoring and improvement. Frida Diaz [id number] Visit type - Emergency Visit Emergency Visit: Yes ED Registration Date: 06/09/18 Care time: The patient presented to the Emergency Department on the above date and was hospitalized for further evaluation of their emergent condition. - New Patient This patient is new to me today: No - Critical Care Critical Care patient: No
[2018-06-12] MEDS: predniSONE 20 MG TABLET (UD) PO SCH (09:54)
[2018-06-12] MEDS: POTASSIUM CHLORIDE TABS 20 MEQ TABLET.ER (FP) PO SCH (09:54)
[2018-06-12] MEDS: ACETAMINOPHEN 325 MG TABLET (FP) PO PRN (09:55)
[2018-06-12] MEDS: PANTOPRAZOLE 20 MG TABLET (FP) PO SCH (09:56)
[2018-06-12] MEDS: APIXABAN 5 MG TABLET PO SCH ×2 (09:56→22:26)
[2018-06-12] MEDS: amLODIPine BESYLATE 10 MG TABLET (FP) PO SCH (09:56)
[2018-06-12] MEDS: SPIRONOLACTONE 25 MG TABLET (FP) PO SCH (09:56)
[2018-06-12] MEDS: LISINOPRIL 20 MG TABLET (FP) PO SCH (09:56)
[2018-06-12] MEDS: DOCUSATE SODIUM 100 MG CAPSULE (FP) PO SCH (09:56)
[2018-06-12] MEDS: SERTRALINE HCL 50 MG TABLET (FP) PO SCH (09:56)
[2018-06-12] MEDS: CEFUROXIME AXETIL 250 MG TABLET PO SCH ×2 (09:56→22:26)
[2018-06-12] MEDS: POLYETHYLENE GLYCOL 3350 119 GM BTL PO SCH (10:01)
--- NOTE | 2018-06-12 10:07 | PN ---
Progress Note, Physician History of Present Illness: Sob, dry cough and chest tightness improving with diuresis. - Current Medication List Current Medications: Active Medications Acetaminophen (Tylenol -) 650 mg PO Q4H PRN PRN Reason: FEVER Last Admin: 06/11/18 09:54 Dose: 650 mg Albuterol/Ipratropium (Duoneb -) 1 amp NEB RTID [facility] Last Admin: 06/12/18 07:11 Dose: 1 amp Amlodipine Besylate (Norvasc -) 10 mg PO DAILY [facility] Last Admin: 06/11/18 09:46 Dose: 10 mg Apixaban (Eliquis -) 5 mg PO BID [facility] Last Admin: 06/11/18 22:05 Dose: 5 mg Atorvastatin Calcium (Lipitor -) 20 mg PO HS [facility] Last Admin: 06/11/18 22:05 Dose: 20 mg Cefuroxime Axetil (Ceftin -) 250 mg PO BID@0830,2030 [facility] Docusate Sodium (Colace -) 100 mg PO DAILY [facility] Last Admin: 06/11/18 09:54 Dose: 100 mg Furosemide (Lasix Injection -) 40 mg IVPUSH BID@0600,1400 [facility] Last Admin: 06/12/18 06:31 Dose: 40 mg Insulin Aspart (Novolog Vial Sliding Scale -) 1 vial SQ ACHS [facility]; Protocol Last Admin: 06/12/18 06:31 Dose: 6 units Lisinopril (Prinivil) 40 mg PO DAILY [facility] Last Admin: 06/11/18 09:45 Dose: 40 mg Pantoprazole Sodium (Protonix -) 20 mg PO DAILY [facility] Last Admin: 06/11/18 09:45 Dose: 20 mg Polyethylene Glycol (Miralax (For Daily Use) -) 17 gm PO DAILY [facility] Last Admin: 06/11/18 09:54 Dose: 17 gm Potassium Chloride (K-Dur -) 20 meq PO DAILY [facility] Last Admin: 06/11/18 09:44 Dose: 20 meq Prednisone (Deltasone -) 30 mg PO DAILY [facility] Sertraline HCl (Zoloft -) 50 mg PO DAILY [facility] Last Admin: 06/11/18 09:45 Dose: 50 mg Spironolactone (Aldactone -) 50 mg PO DAILY [facility] Last Admin: 06/11/18 09:45 Dose: 50 mg - Objective Vital Signs: Vital Signs Temperature 97.5 F L 06/12/18 06:00 Pulse Rate 72 06/12/18 09:50 Respiratory Rate 18 06/12/18 06:00 Blood Pressure 143/74 06/12/18 06:00 O2 Sat by Pulse Oximetry (%) 97 06/12/18 09:50 Constitutional: Yes: No Distress, Calm, Thin Neck: Yes: Supple Cardiovascular: Yes: Regular Rate and Rhythm, Murmur (2/6 SM) Respiratory: Yes: Regular, Diminished, On Nasal O2 Gastrointestinal: Yes: Normal Bowel Sounds, Soft Edema: No Labs: CBC, BMP 06/12/18 06:00 06/12/18 06:00 INR, PTT INR 2.46 (0.83-1.09) H 06/11/18 06:00 Problem List - Problems (1) Chronic anticoagulation Code(s): Z79.01 - BUSINESS DEVELOPMENT EXECUTIVE (CURRENT) USE OF 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 (2) Anemia Code(s): D64.9 - ANEMIA, UNSPECIFIED Qualifiers: (3) Atrial fibrillation with slow ventricular response Code(s): I48.91 - UNSPECIFIED ATRIAL FIBRILLATION (4) Aortic valve stenosis Code(s): I35.0 - NONRHEUMATIC AORTIC (VALVE) STENOSIS Qualifiers: Cardiac valve disease etiology: nonrheumatic Qualified Code(s): I35.0 - Nonrheumatic aortic (valve) stenosis (5) COPD (chronic obstructive pulmonary disease) Code(s): J44.9 - CHRONIC OBSTRUCTIVE PULMONARY DISEASE, UNSPECIFIED Qualifiers: (6) Diabetes mellitus Code(s): E11.9 - TYPE 2 DIABETES MELLITUS WITHOUT COMPLICATIONS Qualifiers: (7) Hypercholesterolemia Code(s): E78.00 - PURE HYPERCHOLESTEROLEMIA, UNSPECIFIED (8) Acute on chronic diastolic (congestive) heart failure Code(s): I50.33 - ACUTE ON CHRONIC DIASTOLIC (CONGESTIVE) HEART FAILURE (9) Dyspnea Code(s): R06.00 - DYSPNEA, UNSPECIFIED Qualifiers: Dyspnea type: dyspnea on exertion Qualified Code(s): R06.09 - Other forms of dyspnea Assessment/Plan 09/10/2017 Echo: Normal LV size and fxn, LVEF 65%, mild cLVH, abnl LV compliance , mod TRINI, mild MR, TR, mod MG 25 mmHg 02/28/2018 Echo: Normal LV size and fxn LVEF 55-60%, restrictive physiology, mild LAE, mild MR, TR RVSP 40-40 mmHg, mod-severe CHARI 0.80 cm^2, MG 32 mmHg 03/26/2018 R&LHc: Non-obstructive CAD, mildly elevated right-sided pressures, mild pulmonary hypertension, moderate aortic valve stenosis (mean AV gradient 29 mmHg, CHARI 0.93 cm^2) 1. Persistent atrial fibrillation with slow ventricular response [id number] score of 7 on DOAC/Eliquis 2. Acute on chronic diastolic heart failure and moderate aortic stenosis improving 3. COPD 4. Type 2 DM 5. Hypertensive heart disease 6. Hypercholesterolemia 7. Acute on chronic kidney disease referable to diuresis 8. Anemia 9. Degenerative joint disease post right THR 10. CAD, angina pectoris 11. History of epistaxis PLAN: 1. Decrease oral diuresis and continue Aldactone 50 mg QD with monitor renal function and electrolytes 2. Off Bystolic. Continue Lisinopril 40 mg QD, Eliquis 5 mg BID, Lipitor 20 mg QHS and Amlodipine 10 mg QD 3. Bronchodilator, prednisone and O2 as needed 4. Deemed not a candidate for aortic valve surgery at this time 5. F/u in office with Dr. Stewart
--- NOTE | 2018-06-12 11:17 | PN ---
Teaching Attending Note Name of Resident: Frida Diaz ATTENDING PHYSICIAN STATEMENT I saw and evaluated the patient. I reviewed the resident's note and discussed the case with the resident. I agree with the resident's findings and plan as documented with exceptions below. SUBJECTIVE: Patient seen and examined. Breathing improved, some burning at the end of urination. Overall feels better. OBJECTIVE: Vital Signs Period Temp Pulse Resp BP Sys/Mo Pulse Ox Last 24 Hr 97.5 F-98.7 F 62-72 18-20 106-152/60-74 95-97 Intake & Output 06/09/18 06/10/18 06/11/18 06/12/18 23:59 23:59 23:59 23:59 Intake Total 1070 Output Total 100 1500 1420 Balance -100 -1500 -350 Weight 160 lb 181 lb 179 lb 4.8 oz General: sitting in bed in no acute distress, able to talk in full sentences Neck: soft, supple, improved neck vein distention Chest: mild decrease in air entry, occasional wheezing, bibasilar fine rales Extremities: trace pedal edema Abdomen:soft, obese, no suprapubic or CVA tenderness Home Medications Medication Instructions Recorded Lisinopril [Zestril] 40 mg PO DAILY 12/29/16 Simvastatin 40 mg PO DAILY 12/29/16 Omeprazole Magnesium [Prilosec Otc] 40 mg PO DAILY 09/06/17 Sertraline HCl [Zoloft -] 50 mg PO DAILY 09/09/17 Apixaban [Eliquis -] 5 mg PO BID #0 tablet 09/27/17 Albuterol Sulfate [Proair 90 mcg IH Q4H PRN 02/27/18 Respiclick] Spironolactone [Aldactone] 50 mg PO DAILY 15 Days #15 tablet 03/11/18 Furosemide [Lasix] 60 mg PO DAILY 05/13/18 Amlodipine Besylate [Norvasc -] 10 mg PO DAILY 30 Days #30 tablet 05/17/18 Active Medications Acetaminophen (Tylenol -) 650 mg PO Q4H PRN PRN Reason: FEVER Last Admin: 06/12/18 09:55 Dose: 650 mg Albuterol/Ipratropium (Duoneb -) 1 amp NEB RTID PK Last Admin: 06/12/18 07:11 Dose: 1 amp Amlodipine Besylate (Norvasc -) 10 mg PO DAILY [facility] Last Admin: 06/12/18 09:56 Dose: 10 mg Apixaban (Eliquis -) 5 mg PO BID [facility] Last Admin: 06/12/18 09:56 Dose: 5 mg Atorvastatin Calcium (Lipitor -) 20 mg PO HS [facility] Last Admin: 06/11/18 22:05 Dose: 20 mg Cefuroxime Axetil (Ceftin -) 250 mg PO BID@0830,2030 [facility] Last Admin: 06/12/18 09:56 Dose: 250 mg Docusate Sodium (Colace -) 100 mg PO DAILY [facility] Last Admin: 06/12/18 09:56 Dose: 100 mg Furosemide (Lasix -) 40 mg PO DAILY [facility] Insulin Aspart (Novolog Vial Sliding Scale -) 1 vial SQ ACHS [facility]; Protocol Last Admin: 06/12/18 06:31 Dose: 6 units Lisinopril (Prinivil) 40 mg PO DAILY [facility] Last Admin: 06/12/18 09:56 Dose: 40 mg Pantoprazole Sodium (Protonix -) 20 mg PO DAILY [facility] Last Admin: 06/12/18 09:56 Dose: 20 mg Polyethylene Glycol (Miralax (For Daily Use) -) 17 gm PO DAILY [facility] Last Admin: 06/12/18 10:01 Dose: 17 gm Potassium Chloride (K-Dur -) 20 meq PO DAILY [facility] Last Admin: 06/12/18 09:54 Dose: 20 meq Prednisone (Deltasone -) 30 mg PO DAILY [facility] Last Admin: 06/12/18 09:54 Dose: 30 mg Sertraline HCl (Zoloft -) 50 mg PO DAILY [facility] Last Admin: 06/12/18 09:56 Dose: 50 mg Spironolactone (Aldactone -) 50 mg PO DAILY [facility] Last Admin: 06/12/18 09:56 Dose: 50 mg Laboratory Results - last 24 hr 06/11/18 06/11/18 06/12/18 06:00 20:13 06:00 WBC RBC Hgb Hct MCV MCH MCHC RDW Plt Count MPV Neutrophils % (Manual) 97.0 H Band Neutrophils % 0.0 Lymphocytes % (Manual) 1.0 L Monocytes % (Manual) 2 L Eosinophils % (Manual) 0.0 Basophils % (Manual) 0.0 Myelocytes % (Man) 0 Promyelocytes % (Man) 0 Blast Cells % (Manual) 0 Metamyelocytes 0 Hypochromia 0 Platelet Estimate Normal Polychromasia 0 Poikilocytosis 2+ Anisocytosis 0 Microcytosis 0 Macrocytosis 0 Ovalocytes 1+ Schistocytes 1+ Sodium Potassium Chloride Carbon Dioxide Anion Gap BUN Creatinine Creat Clearance w eGFR Random Glucose Hemoglobin A1c % 7.8 H Calcium Phosphorus Magnesium Total Bilirubin AST ALT Alkaline Phosphatase Total Protein Albumin Urine Color Ltyellow Urine Appearance Cloudy Urine pH 5.0 Ur Specific [place] 1.013 Urine Protein Negative Urine Glucose (UA) Negative Urine Ketones Negative Urine Blood 2+ H Urine Nitrite Negative Urine Bilirubin Negative Urine Urobilinogen Negative Ur Leukocyte Esterase 1+ H Urine WBC (Auto) 17 Urine RBC (Auto) 35 Ur Epithelial Cells Rare Urine Mucus Rare 06/12/18 06/12/18 06:00 06:00 WBC 11.7 H RBC 3.11 L Hgb 9.4 L Hct 27.7 L MCV 89.3 MCH 30.3 MCHC 33.9 RDW 14.7 Plt Count 212 MPV 9.5 Neutrophils % (Manual) Band Neutrophils % Lymphocytes % (Manual) Monocytes % (Manual) Eosinophils % (Manual) Basophils % (Manual) Myelocytes % (Man) Promyelocytes % (Man) Blast Cells % (Manual) Metamyelocytes Hypochromia Platelet Estimate Polychromasia Poikilocytosis Anisocytosis Microcytosis Macrocytosis Ovalocytes Schistocytes Sodium 141 Potassium 4.3 Chloride 104 Carbon Dioxide 28 Anion Gap 9 BUN 45 H Creatinine 1.4 H Creat Clearance w eGFR 35.91 Random Glucose 223 H Hemoglobin A1c % Calcium 8.3 L Phosphorus 3.4 Magnesium 1.9 Total Bilirubin 0.3 AST 24 ALT 25 Alkaline Phosphatase 62 Total Protein 6.1 L Albumin 3.1 L Urine Color Urine Appearance Urine pH Ur Specific [place] Urine Protein Urine Glucose (UA) Urine Ketones Urine Blood Urine Nitrite Urine Bilirubin Urine Urobilinogen Ur Leukocyte Esterase Urine WBC (Auto) Urine RBC (Auto) Ur Epithelial Cells Urine Mucus Microbiology 06/09/18 15:03 Urine - Urine Cr[place] Urine Culture - Final Proteus Mirabilis ASSESSMENT AND PLAN: 82 year old female with underlying history of CAD (non-obstructive), angina pectoris, diastolic LV dysfunction with history of congestive heart failure, admitted in 04/2018 with diarrhea/SARA/bradycardia, mitral valve disease with mitral valve regurgitation, aortic valve disease with moderate aortic valve stenosis, tricuspid valve disease with tricuspid valve regurgitation and pulmonary hypertension, persistent atrial fibrillation on Eliquis, HTN/HCVD, type 2 diabetes mellitus, hypercholesterolemia, COPD, anemia, admitted with acute on chronic diastolic heart failure exacerbation -Acute on chronic diastolic heart failure exacerbation -Moderate aortic stenosis, not a candidate for TAVR given high surgical risk per cardiology -Persistent Atrial fibrillation with [id number] score of 7 -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 Strict I/Os, daily weights. Cardiology input noted, Aldactone/lisinopril/PO KCl suppl with close monitoring of renal function/electrolytes. Resume bystolic per cardiology. Continue Eliquis. Urinary symptoms today, suspect from attempt at instrumention yesterday. Crandall d /sonal. Start cefuroxime renal dosing for 5-7 days. A1c noted, diabetic diet, ISS, nutrition consult, hold off on standing meds while tapering steroids. Reports second hand smoking from all her life. Prednisone 30 mg daily with taper over next 5-6 days. Continue sertraline. DVTPPX eliquis as above Dispo pending clinical improvement in 48-72 hours. Encourage OOB. PT eval. CM input Plan discussed with patient and nursing in detail, all questions answered.
[2018-06-12] MEDS ORDERED: PT OWN MED DRAWER 7, Y5N ONE (16:15)
[2018-06-12] MEDS: ATORVASTATIN CA 20 MG TABLET (FP) PO SCH (22:26)
[2018-06-13] MEDS: INSULIN SLIDING SCALE (NOVOLOG) 1 VIAL SQ SCH ×4 (06:21→22:15)
[2018-06-13 06:22] LABS: HEMATOCRIT 29.1 % (32.4-45.2); HEMOGLOBIN 9.6 GM/dL (10.7-15.3); MCH 29.7 pg (25.7-33.7); MCHC 33.1 g/dl (32.0-36.0); MEAN CELL VOLUME 89.7 fl (80-96); MEAN PLT VOLUME 9.4 fl (7.5-11.1); PLATELET COUNT 255 K/MM3 (134-434); RBC 3.25 M/mm3 (3.60-5.2); WHITE BLOOD COUNT 11.3 K/mm3 (4.0-10.0)
[2018-06-13 06:53] LABS: ALBUMIN 3.2 g/dl (3.4-5.0); ALK PHOS 65 U/L (45-117); ANION GAP 7 MMOL/L (8-16); BILIRUBIN,TOTAL 0.2 mg/dL (0.2-1); BLOOD UREA NITROGEN 56 mg/dL (7-18); CALCIUM 8.6 mg/dL (8.5-10.1); CHLORIDE 105 mmol/L (98-107); CO2 31 mmol/L (21-32); CREATININE 1.4 mg/dL (0.55-1.3); GLUCOSE,RANDOM 237 mg/dL (74-106); MAGNESIUM 2.2 mg/dL (1.8-2.4); PHOSPHOROUS 4.1 mg/dL (2.5-4.9); POTASSIUM 4.7 mmol/L (3.5-5.1); SGOT/AST 24 U/L (15-37); SGPT/ALT 35 U/L (13-61); SODIUM 142 mmol/L (136-145); TOT PROT 6.2 g/dl (6.4-8.2)
[2018-06-13] MEDS: ALBUTEROL SO4 2.5/IPRATROPIUM 0.5 INH SOL 3 ML VIAL.NEB. NEB SCH ×3 (08:51→21:30)
[2018-06-13] MEDS ORDERED: PT OWN MED DRAWER 7, Y5N ONE (08:59)
[2018-06-13] MEDS: APIXABAN 5 MG TABLET PO SCH ×2 (09:05→22:14)
[2018-06-13] MEDS: DOCUSATE SODIUM 100 MG CAPSULE (FP) PO SCH (09:05)
[2018-06-13] MEDS: LISINOPRIL 20 MG TABLET (FP) PO SCH (09:05)
[2018-06-13] MEDS: PANTOPRAZOLE 20 MG TABLET (FP) PO SCH (09:05)
[2018-06-13] MEDS: predniSONE 20 MG TABLET (UD) PO SCH (09:05)
[2018-06-13] MEDS: amLODIPine BESYLATE 10 MG TABLET (FP) PO SCH (09:05)
[2018-06-13] MEDS: SERTRALINE HCL 50 MG TABLET (FP) PO SCH (09:06)
[2018-06-13] MEDS: CEFUROXIME AXETIL 250 MG TABLET PO SCH ×2 (09:06→22:14)
[2018-06-13] MEDS: POTASSIUM CHLORIDE TABS 20 MEQ TABLET.ER (FP) PO SCH (09:06)
[2018-06-13] MEDS: SPIRONOLACTONE 25 MG TABLET (FP) PO SCH (09:06)
[2018-06-13] MEDS: FUROSEMIDE 40 MG TABLET (FP) PO SCH (09:06)
[2018-06-13] MEDS: POLYETHYLENE GLYCOL 3350 119 GM BTL PO SCH (09:14)
--- NOTE | 2018-06-13 09:48 | PN ---
Teaching Attending Note Name of Resident: Frida Diaz ATTENDING PHYSICIAN STATEMENT I saw and evaluated the patient. I reviewed the resident's note and discussed the case with the resident. I agree with the resident's findings and plan as documented with exceptions below. SUBJECTIVE: Patient seen and examined. Breathing overall improved. no further urinary symptoms. Overall feels better. OBJECTIVE: Vital Signs Period Temp Pulse Resp BP Sys/Mo Pulse Ox Last 24 Hr 97.8 F-98.2 F 70-84 16-20 148-158/64-86 96-97 Intake & Output 06/10/18 06/11/18 06/12/18 06/13/18 23:59 23:59 23:59 23:59 Intake Total 1070 600 Output Total 1500 1420 Balance -1500 -350 600 Weight 181 lb 179 lb 4.8 oz 172 lb 4 oz General: sitting in bed, mild use of accessory muscles of respiration but able to speak in full sentences CVS:S1S2 irregular Chest; bibasilar rales, scattered wheezing, positive air entry Extremities: trace pedal edema Abdomen:Soft, NT, no suprapubic or CVA tenderness noted Home Medications Medication Instructions Recorded Lisinopril [Zestril] 40 mg PO DAILY 12/29/16 Simvastatin 40 mg PO DAILY 12/29/16 Omeprazole Magnesium [Prilosec Otc] 40 mg PO DAILY 09/06/17 Sertraline HCl [Zoloft -] 50 mg PO DAILY 09/09/17 Apixaban [Eliquis -] 5 mg PO BID #0 tablet 09/27/17 Albuterol Sulfate [Proair 90 mcg IH Q4H PRN 02/27/18 Respiclick] Spironolactone [Aldactone] 50 mg PO DAILY 15 Days #15 tablet 03/11/18 Furosemide [Lasix] 60 mg PO DAILY 05/13/18 Amlodipine Besylate [Norvasc -] 10 mg PO DAILY 30 Days #30 tablet 05/17/18 Active Medications Acetaminophen (Tylenol -) 650 mg PO Q4H PRN PRN Reason: FEVER Last Admin: 06/12/18 09:55 Dose: 650 mg Albuterol/Ipratropium (Duoneb -) 1 amp NEB RTID PK Last Admin: 06/13/18 08:51 Dose: 1 amp Amlodipine Besylate (Norvasc -) 10 mg PO DAILY [facility] Last Admin: 06/13/18 09:05 Dose: 10 mg Apixaban (Eliquis -) 5 mg PO BID [facility] Last Admin: 06/13/18 09:05 Dose: 5 mg Atorvastatin Calcium (Lipitor -) 20 mg PO HS [facility] Last Admin: 06/12/18 22:26 Dose: 20 mg Cefuroxime Axetil (Ceftin -) 250 mg PO BID@0830,2030 [facility] Last Admin: 06/13/18 09:06 Dose: 250 mg Docusate Sodium (Colace -) 100 mg PO DAILY [facility] Last Admin: 06/13/18 09:05 Dose: 100 mg Furosemide (Lasix -) 40 mg PO DAILY [facility] Last Admin: 06/13/18 09:06 Dose: 40 mg Insulin Aspart (Novolog Vial Sliding Scale -) 1 vial SQ [facility]; Protocol Last Admin: 06/13/18 06:21 Dose: 6 units Lisinopril (Prinivil) 40 mg PO DAILY [facility] Last Admin: 06/13/18 09:05 Dose: 40 mg Methylprednisolone Sodium Succinate (Solu-Medrol -) 40 mg IVPUSH BID [facility] Pantoprazole Sodium (Protonix -) 20 mg PO DAILY [facility] Last Admin: 06/13/18 09:05 Dose: 20 mg Polyethylene Glycol (Miralax (For Daily Use) -) 17 gm PO DAILY [facility] Last Admin: 06/13/18 09:14 Dose: 17 gm Sertraline HCl (Zoloft -) 50 mg PO DAILY [facility] Last Admin: 06/13/18 09:06 Dose: 50 mg Spironolactone (Aldactone -) 50 mg PO DAILY [facility] Last Admin: 06/13/18 09:06 Dose: 50 mg Laboratory Results - last 24 hr 06/13/18 06/13/18 05:30 05:30 WBC 11.3 H RBC 3.25 L Hgb 9.6 L Hct 29.1 L MCV 89.7 MCH 29.7 MCHC 33.1 RDW 15.0 Plt Count 255 D MPV 9.4 Sodium 142 Potassium 4.7 Chloride 105 Carbon Dioxide 31 Anion Gap 7 L BUN 56 H Creatinine 1.4 H Creat Clearance w eGFR 35.91 Random Glucose 237 H Calcium 8.6 Phosphorus 4.1 Magnesium 2.2 Total Bilirubin 0.2 AST 24 ALT 35 Alkaline Phosphatase 65 Total Protein 6.2 L Albumin 3.2 L Microbiology 06/11/18 20:13 Urine - Urine Clean Catch Urine Culture - Preliminary Proteus Species 06/09/18 15:03 Urine - Urine [place] Urine Culture - Final Proteus Mirabilis ASSESSMENT AND PLAN: 82 year old female with underlying history of CAD (non-obstructive), angina pectoris, diastolic LV dysfunction with history of congestive heart failure, admitted in 04/2018 with diarrhea/SARA/bradycardia, mitral valve disease with mitral valve regurgitation, aortic valve disease with moderate aortic valve stenosis, tricuspid valve disease with tricuspid valve regurgitation and pulmonary hypertension, persistent atrial fibrillation on Eliquis, HTN/HCVD, type 2 diabetes mellitus, hypercholesterolemia, COPD, anemia, admitted with acute on chronic diastolic heart failure exacerbation -Acute on chronic diastolic heart failure exacerbation -Moderate aortic stenosis, not a candidate for TAVR given high surgical risk per cardiology -Persistent Atrial fibrillation with [id number] score of 7 -Acute COPD exacerbation -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 Still with tachypnea, wheezing. Trial with IV steroids x 24 hours to see if improves. Standing nebs. Cardiology input noted, Aldactone/lisinopril. d/c standing KCL suppl. Resume bystolic per cardiology. Continue Eliquis. Cefuroxime day 2/5 A1c noted, diabetic diet, ISS, nutrition consult, hold off on standing meds while on steroids Continue sertraline. DVTPPX eliquis as above Dispo pending clinical improvement in 48-72 hours. Encourage OOB. PT eval. CM input. Ambulatory oxygen needs assessment. Plan discussed with patient and nursing in detail, all questions answered.
[2018-06-13] MEDS: methylPREDNISolone NA SUCC 40 MG/1 ML VIAL IVPUSH SCH ×2 (10:37→22:14)
--- NOTE | 2018-06-13 10:58 | PN ---
Physical Exam: SUBJECTIVE: Patient seen and examined by me at bedside. Patient reports worsening shortness of breath due to wheezing and nonproductive cough. Reports the wheezing worsened this morning but was given a round of Duo-Nebs and improved Patient otherwise denies any fever, chills, nausea, vomiting, abdominal pain, chest pain, headaches, acute vision changes, urinary or bowel symptoms. OBJECTIVE: Vital Signs Period Temp Pulse Resp BP Sys/Mo Pulse Ox Last 24 Hr 97.8 F-98.2 F 70-84 16-20 148-158/64-86 96 GENERAL: The patient is awake, alert, fully oriented, in no acute distress EYES: Sclera anicteric, conjunctiva clear. No ptosis. ENT: Moist mucous membranes. LUNGS: Inspiratory and expiratory wheezing bilaterally. Bibasilar rales throughout lung bases L>R HEART: Irregularly irregular rhythm, normal S1 and S2 with holosytolic ejection murmur. ABDOMEN: Soft, nontender, nondistended, normoactive bowel sounds. EXTREMITIES: Trace Pitting edema bilaterally. Laboratory Results - last 24 hr 06/13/18 06/13/18 05:30 05:30 WBC 11.3 H RBC 3.25 L Hgb 9.6 L Hct 29.1 L MCV 89.7 MCH 29.7 MCHC 33.1 RDW 15.0 Plt Count 255 D MPV 9.4 Sodium 142 Potassium 4.7 Chloride 105 Carbon Dioxide 31 Anion Gap 7 L BUN 56 H Creatinine 1.4 H Creat Clearance w eGFR 35.91 Random Glucose 237 H Calcium 8.6 Phosphorus 4.1 Magnesium 2.2 Total Bilirubin 0.2 AST 24 ALT 35 Alkaline Phosphatase 65 Total Protein 6.2 L Albumin 3.2 L Active Medications Generic Name Dose Route Start Last Admin Trade Name Freq PRN Reason Stop Dose Admin Acetaminophen 650 mg 06/09/18 15:44 06/12/18 09:55 Tylenol - PO 650 mg Q4H PRN Administration FEVER Albuterol/Ipratropium 1 amp 06/13/18 14:00 Duoneb - NEB QID PK Amlodipine Besylate 10 mg 06/10/18 10:00 06/13/18 09:05 Norvasc - PO 10 mg DAILY PK Administration Apixaban 5 mg 06/09/18 22:00 06/13/18 09:05 Eliquis - PO 5 mg BID PK Administration Atorvastatin Calcium 20 mg 06/09/18 22:00 06/12/18 22:26 Lipitor - PO 20 mg HS PK Administration Cefuroxime Axetil 250 mg 06/12/18 08:30 06/13/18 09:06 Ceftin - PO 250 mg BID@0830,2030 PK Administration Docusate Sodium 100 mg 06/11/18 10:00 06/13/18 09:05 Colace - PO 100 mg DAILY PK Administration Furosemide 40 mg 06/13/18 10:00 06/13/18 09:06 Lasix - PO 40 mg DAILY PK Administration Insulin Aspart 1 vial 06/11/18 11:36 06/13/18 06:21 Novolog Vial Sliding Scale - SQ 6 units ACHS PK Administration Protocol Lisinopril 40 mg 06/10/18 10:00 06/13/18 09:05 Prinivil PO 40 mg DAILY PK Administration Methylprednisolone Sodium Succinate 40 mg 06/13/18 10:00 06/13/18 10:37 Solu-Medrol - IVPUSH 40 mg BID PK Administration Pantoprazole Sodium 20 mg 06/10/18 19:00 06/13/18 09:05 Protonix - PO 20 mg DAILY PK Administration Polyethylene Glycol 17 gm 06/11/18 10:00 06/13/18 09:14 Miralax (For Daily Use) - PO 17 gm DAILY PK Administration Sertraline HCl 50 mg 06/10/18 10:00 06/13/18 09:06 Zoloft - PO 50 mg DAILY PK Administration Spironolactone 50 mg 06/09/18 16:00 06/13/18 09:06 Aldactone - PO 50 mg DAILY PK Administration ASSESSMENT/PLAN: Patient is an 82 year old female with a PMHx of COPD, diastolic heart failure and moderate aortic stenosis who presented with worsening shortness of breath and found to have Acute on Chronic diastolic CHF w/ COPD exacerbation. Acute on Chronic Diastolic CHF -Chest X-ray improved today with less fluid overload -Continue Lasix 40mg IVP once daily -Continue Aldactone 50mg daily -Continue Lisinopril 40mg daily -Hold Bystolic -Monitor BMP and electrolytes while on diuretics. -Daily Weights and strict I&O's. Weight down from 82kg to 81kg from yesterday -Continue 02 Acute on Chronic COPD -Patient with worsening shortness of breath today and likely due to COPD and viral component. -Will start patient on IV Steroids, medrol 40mg IVP and monitor. If patient does not improve, will call Pulm -Continue Duo-Neb QID standing -Continue 02 and 02 monitoring Urinary Tract Infection -Second Urine cultures grew Proteus -Continue Ceftin 250mg BID Aortic Stenosis -Not a candidate for Valve surgery at this time Hypokalemia- Improved -Likely from Lasix -Continue daily Potassium 20meq PO Persistent Atrial Fibrillation -Chadsvasc score 7 -Continue Eliquis 5mg BID Acute Kidney Injury -Likely secondary to Lasix use -Decreased lasix to 40mg daily -Continue to monitor NIDDMII -ISS -BGM HTN -Continue Aldactone 50mg daily -Continue Lisinopril 40mg daily -Continue Amlodipine 10mg daily -Continue monitoring BP CKD -At baseline -Continue daily BMP HLD -Continue Lipitor 20mg F/E/N -On no fluids -Electrolytes wnl -Sodium controlled diet Prophylaxis -Eliquis 5mg BID for DVT -Protonix 20mg for GI Disposition -Full code -Continues to have shortness of breath. Will require inpatient Frida Diaz [id number] Visit type - Emergency Visit Emergency Visit: Yes ED Registration Date: 06/09/18 Care time: The patient presented to the Emergency Department on the above date and was hospitalized for further evaluation of their emergent condition. - New Patient This patient is new to me today: No - Critical Care Critical Care patient: No
--- NOTE | 2018-06-13 12:39 | PN ---
Progress Note, Physician History of Present Illness: Sob, dry cough and chest tightness improving with diuresis. - Current Medication List Current Medications: Active Medications Acetaminophen (Tylenol -) 650 mg PO Q4H PRN PRN Reason: FEVER Last Admin: 06/12/18 09:55 Dose: 650 mg Albuterol/Ipratropium (Duoneb -) 1 amp NEB RQID [facility] Amlodipine Besylate (Norvasc -) 10 mg PO DAILY [facility] Last Admin: 06/13/18 09:05 Dose: 10 mg Apixaban (Eliquis -) 5 mg PO BID [facility] Last Admin: 06/13/18 09:05 Dose: 5 mg Atorvastatin Calcium (Lipitor -) 20 mg PO HS [facility] Last Admin: 06/12/18 22:26 Dose: 20 mg Cefuroxime Axetil (Ceftin -) 250 mg PO BID@0830,2030 [facility] Last Admin: 06/13/18 09:06 Dose: 250 mg Docusate Sodium (Colace -) 100 mg PO DAILY [facility] Last Admin: 06/13/18 09:05 Dose: 100 mg Furosemide (Lasix -) 40 mg PO DAILY [facility] Last Admin: 06/13/18 09:06 Dose: 40 mg Insulin Aspart (Novolog Vial Sliding Scale -) 1 vial SQ ACHS [facility]; Protocol Last Admin: 06/13/18 11:55 Dose: 2 units Lisinopril (Prinivil) 40 mg PO DAILY [facility] Last Admin: 06/13/18 09:05 Dose: 40 mg Methylprednisolone Sodium Succinate (Solu-Medrol -) 40 mg IVPUSH BID [facility] Last Admin: 06/13/18 10:37 Dose: 40 mg Pantoprazole Sodium (Protonix -) 20 mg PO DAILY [facility] Last Admin: 06/13/18 09:05 Dose: 20 mg Polyethylene Glycol (Miralax (For Daily Use) -) 17 gm PO DAILY [facility] Last Admin: 06/13/18 09:14 Dose: 17 gm Sertraline HCl (Zoloft -) 50 mg PO DAILY [facility] Last Admin: 06/13/18 09:06 Dose: 50 mg Spironolactone (Aldactone -) 50 mg PO DAILY [facility] Last Admin: 06/13/18 09:06 Dose: 50 mg - Objective Vital Signs: Vital Signs Temperature 98 F 06/13/18 10:00 Pulse Rate 73 06/13/18 10:00 Respiratory Rate 20 06/13/18 10:00 Blood Pressure 150/77 06/13/18 10:00 O2 Sat by Pulse Oximetry (%) 94 L 06/13/18 09:00 Constitutional: Yes: No Distress, Calm Neck: Yes: Supple Cardiovascular: Yes: Pulse Irregular, Murmur (2/6 SM) Respiratory: Yes: Regular, Diminished, On Nasal O2 Gastrointestinal: Yes: Normal Bowel Sounds, Soft Edema: No Labs: CBC, BMP 06/13/18 05:30 06/13/18 05:30 INR, PTT INR 2.46 (0.83-1.09) H 06/11/18 06:00 - ....Imaging Chest X-ray: Report Reviewed (Improved congestion) Problem List - Problems (1) Chronic anticoagulation Code(s): Z79.01 - [employer] (CURRENT) USE OF 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 (2) Anemia Code(s): D64.9 - ANEMIA, UNSPECIFIED Qualifiers: (3) Atrial fibrillation with slow ventricular response Code(s): I48.91 - UNSPECIFIED ATRIAL FIBRILLATION (4) Aortic valve stenosis Code(s): I35.0 - NONRHEUMATIC AORTIC (VALVE) STENOSIS Qualifiers: Cardiac valve disease etiology: nonrheumatic Qualified Code(s): I35.0 - Nonrheumatic aortic (valve) stenosis (5) COPD (chronic obstructive pulmonary disease) Code(s): J44.9 - CHRONIC OBSTRUCTIVE PULMONARY DISEASE, UNSPECIFIED Qualifiers: (6) Diabetes mellitus Code(s): E11.9 - TYPE 2 DIABETES MELLITUS WITHOUT COMPLICATIONS Qualifiers: (7) Hypercholesterolemia Code(s): E78.00 - PURE HYPERCHOLESTEROLEMIA, UNSPECIFIED (8) Acute on chronic diastolic (congestive) heart failure Code(s): I50.33 - ACUTE ON CHRONIC DIASTOLIC (CONGESTIVE) HEART FAILURE (9) Dyspnea Code(s): R06.00 - DYSPNEA, UNSPECIFIED Qualifiers: Dyspnea type: dyspnea on exertion Qualified Code(s): R06.09 - Other forms of dyspnea Assessment/Plan 09/10/2017 Echo: Normal LV size and fxn, LVEF 65%, mild cLVH, abnl LV compliance , mod TRINI, mild MR, TR, mod MG 25 mmHg 02/28/2018 Echo: Normal LV size and fxn LVEF 55-60%, restrictive physiology, mild LAE, mild MR, TR RVSP 40-40 mmHg, mod-severe CHARI 0.80 cm^2, MG 32 mmHg 03/26/2018 R&LHc: Non-obstructive CAD, mildly elevated right-sided pressures, mild pulmonary hypertension, moderate aortic valve stenosis (mean AV gradient 29 mmHg, CHARI 0.93 cm^2) 1. Persistent atrial fibrillation with slow ventricular response [id number] score of 7 on DOAC/Eliquis 2. Acute on chronic diastolic heart failure and moderate aortic stenosis improving 3. COPD 4. Type 2 DM 5. Hypertensive heart disease 6. Hypercholesterolemia 7. Acute on chronic kidney disease referable to diuresis 8. Anemia 9. Degenerative joint disease post right THR 10. CAD, angina pectoris 11. History of epistaxis PLAN: 1. Back on oral diuresis with Lasix 40 po qd and continue Aldactone 50 mg QD with monitor renal function and electrolytes 2. Off Bystolic. Continue Lisinopril 40 mg QD, Eliquis 5 mg BID, Lipitor 20 mg QHS and Amlodipine 10 mg QD 3. Bronchodilator, IV steroid with GI protection, abx course and O2 as needed 4. Deemed not a candidate for aortic valve surgery at this time 5. F/u in office with Dr. Stewart
[2018-06-13] MEDS: ACETAMINOPHEN 325 MG TABLET (FP) PO PRN (16:17)
[2018-06-13] MEDS: ATORVASTATIN CA 20 MG TABLET (FP) PO SCH (22:14)
[2018-06-14] MEDS ORDERED: ALBUTEROL SO4 2.5/IPRATROPIUM 0.5 INH SOL 3 ML VIAL.NEB. NEB ONE (06:22)
[2018-06-14] MEDS: INSULIN SLIDING SCALE (NOVOLOG) 1 VIAL SQ SCH ×4 (06:33→21:22)
[2018-06-14 08:03] LABS: HEMATOCRIT 30.2 % (32.4-45.2); HEMOGLOBIN 10.1 GM/dL (10.7-15.3); MCH 29.9 pg (25.7-33.7); MCHC 33.3 g/dl (32.0-36.0); MEAN CELL VOLUME 89.9 fl (80-96); MEAN PLT VOLUME 9.5 fl (7.5-11.1); PLATELET COUNT 278 K/MM3 (134-434); RBC 3.36 M/mm3 (3.60-5.2); RDW 14.8 % (11.6-15.6); WHITE BLOOD COUNT 8.6 K/mm3 (4.0-10.0)
[2018-06-14 08:22] LABS: ANION GAP 9 MMOL/L (8-16); BLOOD UREA NITROGEN 51 mg/dL (7-18); CALCIUM 9.1 mg/dL (8.5-10.1); CHLORIDE 103 mmol/L (98-107); CO2 27 mmol/L (21-32); CREATININE 1.2 mg/dL (0.55-1.3); GLUCOSE,RANDOM 295 mg/dL (74-106); MAGNESIUM 2.3 mg/dL (1.8-2.4); PHOSPHOROUS 4.8 mg/dL (2.5-4.9); POTASSIUM 4.4 mmol/L (3.5-5.1); SODIUM 139 mmol/L (136-145)
[2018-06-14] MEDS: ALBUTEROL SO4 2.5/IPRATROPIUM 0.5 INH SOL 3 ML VIAL.NEB. NEB SCH ×4 (09:24→21:00)
--- NOTE | 2018-06-14 11:07 | PN ---
Progress Note, Physician Chief Complaint: Events noted Dyspnea persists Generalized weakness History of Present Illness: Patient was seen and examined. Awake and alert. Chart was reviewed Persistent dyspnea. Denies palpitations. Denies fever or chills Mild tremors - Current Medication List Current Medications: Active Medications Acetaminophen (Tylenol -) 650 mg PO Q4H PRN PRN Reason: FEVER Last Admin: 06/13/18 16:17 Dose: 650 mg Albuterol/Ipratropium (Duoneb -) 1 amp NEB RQID [facility] Last Admin: 06/14/18 09:24 Dose: 1 amp Amlodipine Besylate (Norvasc -) 10 mg PO DAILY [facility] Last Admin: 06/13/18 09:05 Dose: 10 mg Apixaban (Eliquis -) 5 mg PO BID [facility] Last Admin: 06/13/18 22:14 Dose: 5 mg Atorvastatin Calcium (Lipitor -) 20 mg PO HS [facility] Last Admin: 06/13/18 22:14 Dose: 20 mg Cefuroxime Axetil (Ceftin -) 250 mg PO BID@0830,2030 [facility] Last Admin: 06/13/18 22:14 Dose: 250 mg Docusate Sodium (Colace -) 100 mg PO DAILY [facility] Last Admin: 06/13/18 09:05 Dose: 100 mg Furosemide (Lasix -) 40 mg PO DAILY [facility] Last Admin: 06/13/18 09:06 Dose: 40 mg Insulin Aspart (Novolog Vial Sliding Scale -) 1 vial SQ ACHS [facility]; Protocol Last Admin: 06/14/18 06:33 Dose: 8 units Lisinopril (Prinivil) 40 mg PO DAILY [facility] Last Admin: 06/13/18 09:05 Dose: 40 mg Methylprednisolone Sodium Succinate (Solu-Medrol -) 40 mg IVPUSH BID [facility] Last Admin: 06/13/18 22:14 Dose: 40 mg Pantoprazole Sodium (Protonix -) 20 mg PO DAILY [facility] Last Admin: 06/13/18 09:05 Dose: 20 mg Polyethylene Glycol (Miralax (For Daily Use) -) 17 gm PO DAILY [facility] Last Admin: 06/13/18 09:14 Dose: 17 gm Sertraline HCl (Zoloft -) 50 mg PO DAILY [facility] Last Admin: 06/13/18 09:06 Dose: 50 mg Spironolactone (Aldactone -) 50 mg PO DAILY [facility] Last Admin: 06/13/18 09:06 Dose: 50 mg - Objective Vital Signs: Vital Signs Temperature 98.1 F 06/14/18 06:31 Pulse Rate 78 06/14/18 06:31 Respiratory Rate 18 06/14/18 06:31 Blood Pressure 155/78 06/14/18 06:31 O2 Sat by Pulse Oximetry (%) 94 L 06/13/18 21:00 HENT: Yes: Atraumatic Neck: Yes: Supple Cardiovascular: Yes: Pulse Irregular, Murmur (JAZMYN), S1, S2 Respiratory: Yes: Diminished Gastrointestinal: Yes: Normal Bowel Sounds, Soft. No: Tenderness Edema: No Additional Findings/Remarks: - Review of Systems Constitutional: denies: Chills, Fever Cardiovascular: reports: Chest Pain. denies: Palpitations, (+) Shortness of Breath Respiratory: reports: Cough. denies: Hemoptysis, Orthopnea, PND, (+) SOB, SOB on Exertion Gastrointestinal: denies: Abdominal Pain, Constipation, Diarrhea, Melena, Nausea , Rectal Bleeding, Vomiting Neurological: denies: Dizziness, Headache, Seizure, Syncope Labs: CBC, BMP 06/14/18 06:00 06/14/18 06:00 Problem List - Problems (1) Anemia Code(s): D64.9 - ANEMIA, UNSPECIFIED Qualifiers: (2) Atrial fibrillation with slow ventricular response Code(s): I48.91 - UNSPECIFIED ATRIAL FIBRILLATION (3) CHF exacerbation Code(s): I50.9 - HEART FAILURE, UNSPECIFIED Qualifiers: Heart failure type: diastolic Qualified Code(s): I50.33 - Acute on chronic diastolic (congestive) heart failure (4) Chronic anticoagulation 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 (5) HTN (hypertension) Code(s): I10 - ESSENTIAL (PRIMARY) HYPERTENSION Qualifiers: (6) Aortic valve stenosis Code(s): I35.0 - NONRHEUMATIC AORTIC (VALVE) STENOSIS Qualifiers: Cardiac valve disease etiology: nonrheumatic Qualified Code(s): I35.0 - Nonrheumatic aortic (valve) stenosis (7) COPD (chronic obstructive pulmonary disease) Code(s): J44.9 - CHRONIC OBSTRUCTIVE PULMONARY DISEASE, UNSPECIFIED Qualifiers: (8) Diabetes mellitus Code(s): E11.9 - TYPE 2 DIABETES MELLITUS WITHOUT COMPLICATIONS Qualifiers: (9) Hypercholesterolemia Code(s): E78.00 - PURE HYPERCHOLESTEROLEMIA, UNSPECIFIED (10) Acute on chronic diastolic (congestive) heart failure Code(s): I50.33 - ACUTE ON CHRONIC DIASTOLIC (CONGESTIVE) HEART FAILURE (11) [id number] kidney injury Code(s): N17.9 - ACUTE KIDNEY FAILURE, UNSPECIFIED; N18.9 - CHRONIC KIDNEY DISEASE, UNSPECIFIED Qualifiers: Acute renal failure type: unspecified Chronic kidney disease stage: stage 2 (mild) Qualified Code(s): N17.9 - Acute kidney failure, unspecified; N18.2 - Chronic kidney disease, stage 2 (mild) (12) Epistaxis Code(s): R04.0 - EPISTAXIS (13) Diastolic dysfunction Code(s): I51.9 - HEART DISEASE, UNSPECIFIED (14) Mitral valve regurgitation Code(s): I34.0 - NONRHEUMATIC MITRAL (VALVE) INSUFFICIENCY Qualifiers: Cardiac valve disease etiology: nonrheumatic Qualified Code(s): I34.0 - Nonrheumatic mitral (valve) insufficiency (15) Tricuspid valve regurgitation Code(s): I07.1 - RHEUMATIC TRICUSPID INSUFFICIENCY Qualifiers: Cardiac valve disease etiology: nonrheumatic Qualified Code(s): I36.1 - Nonrheumatic tricuspid (valve) insufficiency Assessment/Plan 1. Persistent atrial fibrillation with slow ventricular response [id number] score of 7 on DOAC/Eliquis 2. Acute on chronic diastolic heart failure and moderate aortic stenosis 3. COPD 4. Type 2 DM 5. Hypertensive heart disease 6. Hypercholesterolemia 7. Chronic kidney disease 8. Anemia 9. Degenerative joint disease post right THR 10. CAD, angina pectoris 11. History of epistaxis PLAN: 1. Oral diuresis and Aldactone 50 mg QD with monitor renal function and electrolytes 2. Still off Bystolic. Continue Lisinopril 40 mg QD, Eliquis 5 mg BID, Lipitor 20 mg QHS and Amlodipine 10 mg QD 3. Bronchodilator and O2 as needed 4. Deemed not a candidate for aortic valve surgery with recent valve evaluation Further plans are to follow Armen Stewart MD
[2018-06-14] MEDS: LISINOPRIL 20 MG TABLET (FP) PO SCH (11:11)
[2018-06-14] MEDS: CEFUROXIME AXETIL 250 MG TABLET PO SCH ×2 (11:12→21:22)
[2018-06-14] MEDS: amLODIPine BESYLATE 10 MG TABLET (FP) PO SCH (11:12)
[2018-06-14] MEDS: APIXABAN 5 MG TABLET PO SCH ×2 (11:12→21:22)
[2018-06-14] MEDS: SPIRONOLACTONE 25 MG TABLET (FP) PO SCH (11:12)
[2018-06-14] MEDS: FUROSEMIDE 40 MG TABLET (FP) PO SCH (11:12)
[2018-06-14] MEDS: SERTRALINE HCL 50 MG TABLET (FP) PO SCH (11:12)
[2018-06-14] MEDS: DOCUSATE SODIUM 100 MG CAPSULE (FP) PO SCH (11:12)
[2018-06-14] MEDS: PANTOPRAZOLE 20 MG TABLET (FP) PO SCH (11:12)
[2018-06-14] MEDS: POLYETHYLENE GLYCOL 3350 119 GM BTL PO SCH (11:13)
[2018-06-14] MEDS: methylPREDNISolone NA SUCC 40 MG/1 ML VIAL IVPUSH SCH ×2 (11:13→18:15)
--- NOTE | 2018-06-14 11:31 | PN ---
Physical Exam: SUBJECTIVE: Patient seen and examined, still dyspneic, weak, no abdominal pain or urinary symptoms OBJECTIVE: Vital Signs Period Temp Pulse Resp BP Sys/Mo Pulse Ox Last 24 Hr 97.3 F-98.1 F 70-87 18-20 155-164/78-86 94 GENERAL: awake, mild tachypnea, anxious in bed Neck: soft, supple, improved neck vein distension Chest: improved basilar rales, scattered wheezing with decreased air entry Abdomen: soft, obese, NT, no CVA or suprapubic tenderness Extremities: 1+ pedal edema CVS:S1S2 irregular Laboratory Results - last 24 hr 06/11/18 06/11/18 06/11/18 11:28 16:50 22:02 WBC RBC Hgb Hct MCV MCH MCHC RDW Plt Count MPV Sodium Potassium Chloride Carbon Dioxide Anion Gap BUN Creatinine Creat Clearance w eGFR POC Glucometer 428 305 227 Random Glucose Calcium Phosphorus Magnesium 06/12/18 06/12/18 06/12/18 06:01 11:10 16:44 WBC RBC Hgb Hct MCV MCH MCHC RDW Plt Count MPV Sodium Potassium Chloride Carbon Dioxide Anion Gap BUN Creatinine Creat Clearance w eGFR POC Glucometer 253 214 304 Random Glucose Calcium Phosphorus Magnesium 06/12/18 06/13/18 06/13/18 22:22 06:19 11:33 WBC RBC Hgb Hct MCV MCH MCHC RDW Plt Count MPV Sodium Potassium Chloride Carbon Dioxide Anion Gap BUN Creatinine Creat Clearance w eGFR POC Glucometer 285 275 188 Random Glucose Calcium Phosphorus Magnesium 06/13/18 06/13/18 06/14/18 16:20 22:12 05:50 WBC RBC Hgb Hct MCV MCH MCHC RDW Plt Count MPV Sodium Potassium Chloride Carbon Dioxide Anion Gap BUN Creatinine Creat Clearance w eGFR POC Glucometer 362 270 316 Random Glucose Calcium Phosphorus Magnesium 06/14/18 06/14/18 06:00 06:00 WBC 8.6 RBC 3.36 L Hgb 10.1 L Hct 30.2 L MCV 89.9 MCH 29.9 MCHC 33.3 RDW 14.8 Plt Count 278 MPV 9.5 Sodium 139 Potassium 4.4 Chloride 103 Carbon Dioxide 27 Anion Gap 9 BUN 51 H Creatinine 1.2 Creat Clearance w eGFR 42.90 POC Glucometer Random Glucose 295 H Calcium 9.1 Phosphorus 4.8 Magnesium 2.3 Active Medications Generic Name Dose Route Start Last Admin Trade Name Freq PRN Reason Stop Dose Admin Acetaminophen 650 mg 06/09/18 15:44 06/13/18 16:17 Tylenol - PO 650 mg Q4H PRN Administration FEVER Albuterol/Ipratropium 1 amp 06/13/18 16:00 06/14/18 09:24 Duoneb - NEB 1 amp RQID PK Administration Amlodipine Besylate 10 mg 06/10/18 10:00 06/14/18 11:12 Norvasc - PO 10 mg DAILY PK Administration Apixaban 5 mg 06/09/18 22:00 06/14/18 11:12 Eliquis - PO 5 mg BID PK Administration Atorvastatin Calcium 20 mg 06/09/18 22:00 06/13/18 22:14 Lipitor - PO 20 mg HS PK Administration Cefuroxime Axetil 250 mg 06/12/18 08:30 06/14/18 11:12 Ceftin - PO 250 mg BID@0830,2030 PK Administration Docusate Sodium 100 mg 06/11/18 10:00 06/14/18 11:12 Colace - PO 100 mg DAILY PK Administration Furosemide 40 mg 06/13/18 10:00 06/14/18 11:12 Lasix - PO 40 mg DAILY PK Administration Insulin Aspart 1 vial 06/11/18 11:36 06/14/18 06:33 Novolog Vial Sliding Scale - SQ 8 units ACHS PK Administration Protocol Lisinopril 40 mg 06/10/18 10:00 06/14/18 11:11 Prinivil PO 40 mg DAILY PK Administration Methylprednisolone Sodium Succinate 40 mg 06/14/18 11:30 Solu-Medrol - IVPUSH Q8H PK Pantoprazole Sodium 20 mg 06/10/18 19:00 06/14/18 11:12 Protonix - PO 20 mg DAILY PK Administration Polyethylene Glycol 17 gm 06/11/18 10:00 06/14/18 11:13 Miralax (For Daily Use) - PO 17 gm DAILY PK Administration Sertraline HCl 50 mg 06/10/18 10:00 06/14/18 11:12 Zoloft - PO 50 mg DAILY PK Administration Spironolactone 50 mg 06/09/18 16:00 06/14/18 11:12 Aldactone - PO 50 mg DAILY PK Administration ASSESSMENT/PLAN: 82 year old female with underlying history of CAD (non-obstructive), angina pectoris, diastolic LV dysfunction with history of congestive heart failure, admitted in 04/2018 with diarrhea/SARA/bradycardia, mitral valve disease with mitral valve regurgitation, aortic valve disease with moderate aortic valve stenosis, tricuspid valve disease with tricuspid valve regurgitation and pulmonary hypertension, persistent atrial fibrillation on Eliquis, HTN/HCVD, type 2 diabetes mellitus, hypercholesterolemia, COPD, anemia, admitted with acute on chronic diastolic heart failure exacerbation -Acute on chronic diastolic heart failure exacerbation -Moderate aortic stenosis, not a candidate for TAVR given high surgical risk per cardiology -Persistent Atrial fibrillation with [id number] score of 7 -Acute COPD exacerbation -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 Still wheezy and dyspneic, increase solumedrol to 40 mg IV q8h, pulmonary input if fails to improve. Standing and prn. nebs. Cardiology input noted, Aldactone/lisinopril. Resume bystolic per cardiology. Continue Eliquis. Cefuroxime day 3/ A1c noted, diabetic diet, ISS, nutrition consult, Blood sugars rising. Add low dose levemir while on IV steroids. Continue sertraline. DVTPPX eliquis as above Dispo pending clinical improvement in 48-72 hours. Encourage OOB. PT eval. CM input. Ambulatory oxygen needs assessment. Plan discussed with patient and nursing in detail, all questions answered. Dispo planning on hold given ongoing dyspnea and wheezing. Visit type - Emergency Visit Emergency Visit: Yes ED Registration Date: 06/09/18 Care time: The patient presented to the Emergency Department on the above date and was hospitalized for further evaluation of their emergent condition. - New Patient This patient is new to me today: No - Critical Care Critical Care patient: No - Discharge Referral Referred to [facility] Med [facility] No
[2018-06-14] MEDS: INSULIN (LEVEMIR) 100 UNITS/ML UNITS SQ SCH (12:24)
[2018-06-14] MEDS: ATORVASTATIN CA 20 MG TABLET (FP) PO SCH (21:22)
[2018-06-15] MEDS: ACETAMINOPHEN 325 MG TABLET (FP) PO PRN ×3 (01:53→22:44)
[2018-06-15] MEDS: methylPREDNISolone NA SUCC 40 MG/1 ML VIAL IVPUSH SCH ×2 (01:53→10:04)
[2018-06-15] MEDS: INSULIN SLIDING SCALE (NOVOLOG) 1 VIAL SQ SCH ×4 (06:32→22:40)
[2018-06-15] MEDS: INSULIN (LEVEMIR) 100 UNITS/ML UNITS SQ SCH (06:32)
[2018-06-15 06:55] LABS: ANION GAP 8 MMOL/L (8-16); BLOOD UREA NITROGEN 53 mg/dL (7-18); CALCIUM 8.5 mg/dL (8.5-10.1); CHLORIDE 105 mmol/L (98-107); CO2 28 mmol/L (21-32); CREATININE 1.4 mg/dL (0.55-1.3); GLUCOSE,RANDOM 235 mg/dL (74-106); PHOSPHOROUS 4.4 mg/dL (2.5-4.9); POTASSIUM 4.8 mmol/L (3.5-5.1); SODIUM 140 mmol/L (136-145)
[2018-06-15] MEDS: ALBUTEROL SO4 2.5/IPRATROPIUM 0.5 INH SOL 3 ML VIAL.NEB. NEB SCH ×4 (09:00→20:38)
--- NOTE | 2018-06-15 09:25 | PN ---
Progress Note, Physician Chief Complaint: Events noted Dyspnea persists, but a little better this am Generalized weakness History of Present Illness: Patient was seen and examined. Awake and alert. Chart was reviewed Persistent dyspnea but improving. Denies palpitations. Denies fever or chills - Current Medication List Current Medications: Active Medications Acetaminophen (Tylenol -) 650 mg PO Q4H PRN PRN Reason: FEVER Last Admin: 06/15/18 01:53 Dose: 650 mg Albuterol/Ipratropium (Duoneb -) 1 amp NEB RQID [facility] Last Admin: 06/14/18 21:00 Dose: 1 amp Amlodipine Besylate (Norvasc -) 10 mg PO DAILY [facility] Last Admin: 06/14/18 11:12 Dose: 10 mg Apixaban (Eliquis -) 5 mg PO BID [facility] Last Admin: 06/14/18 21:22 Dose: 5 mg Atorvastatin Calcium (Lipitor -) 20 mg PO HS [facility] Last Admin: 06/14/18 21:22 Dose: 20 mg Cefuroxime Axetil (Ceftin -) 250 mg PO BID@0830,2030 [facility] Last Admin: 06/14/18 21:22 Dose: 250 mg Docusate Sodium (Colace -) 100 mg PO DAILY [facility] Last Admin: 06/14/18 11:12 Dose: 100 mg Furosemide (Lasix -) 40 mg PO DAILY [facility] Last Admin: 06/14/18 11:12 Dose: 40 mg Insulin Aspart (Novolog Vial Sliding Scale -) 1 vial SQ ACHS [facility]; Protocol Last Admin: 06/15/18 06:32 Dose: 6 units Insulin Detemir (Levemir Vial) 5 units SQ 0700 [facility] Last Admin: 06/15/18 06:32 Dose: 5 units Lisinopril (Prinivil) 40 mg PO DAILY [facility] Last Admin: 06/14/18 11:11 Dose: 40 mg Methylprednisolone Sodium Succinate (Solu-Medrol -) 40 mg IVPUSH Q8H-IV [facility] Last Admin: 06/15/18 01:53 Dose: 40 mg Pantoprazole Sodium (Protonix -) 20 mg PO DAILY [facility] Last Admin: 06/14/18 11:12 Dose: 20 mg Polyethylene Glycol (Miralax (For Daily Use) -) 17 gm PO DAILY [facility] Last Admin: 06/14/18 11:13 Dose: 17 gm Sertraline HCl (Zoloft -) 50 mg PO DAILY [facility] Last Admin: 06/14/18 11:12 Dose: 50 mg Spironolactone (Aldactone -) 50 mg PO DAILY [facility] Last Admin: 06/14/18 11:12 Dose: 50 mg - Objective Vital Signs: Vital Signs Temperature 97.8 F 06/15/18 01:50 Pulse Rate 82 06/15/18 06:00 Respiratory Rate 20 06/15/18 06:00 Blood Pressure 161/83 06/15/18 06:00 O2 Sat by Pulse Oximetry (%) 94 L 06/14/18 22:00 Eyes: Yes: PERRL Neck: Yes: Supple Cardiovascular: Yes: Pulse Irregular, Murmur (JAZMYN), S1, S2 Respiratory: Yes: Diminished Gastrointestinal: Yes: Normal Bowel Sounds, Soft. No: Tenderness Edema: No Additional Findings/Remarks: - Review of Systems Constitutional: denies: Chills, Fever Cardiovascular: reports: Chest Pain. denies: Palpitations, (+) Shortness of Breath Respiratory: reports: Cough. denies: Hemoptysis, Orthopnea, PND, (+) SOB, SOB on Exertion Gastrointestinal: denies: Abdominal Pain, Constipation, Diarrhea, Melena, Nausea , Rectal Bleeding, Vomiting Neurological: denies: Dizziness, Headache, Seizure, Syncope Labs: CBC, BMP 06/14/18 06:00 06/15/18 05:25 Problem List - Problems (1) Anemia Code(s): D64.9 - ANEMIA, UNSPECIFIED Qualifiers: (2) Atrial fibrillation with slow ventricular response Code(s): I48.91 - UNSPECIFIED ATRIAL FIBRILLATION (3) CHF exacerbation Code(s): I50.9 - HEART FAILURE, UNSPECIFIED Qualifiers: Heart failure type: diastolic Qualified Code(s): I50.33 - Acute on chronic diastolic (congestive) heart failure (4) 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 (5) HTN (hypertension) Code(s): I10 - ESSENTIAL (PRIMARY) HYPERTENSION Qualifiers: (6) Aortic valve stenosis Code(s): I35.0 - NONRHEUMATIC AORTIC (VALVE) STENOSIS Qualifiers: Cardiac valve disease etiology: nonrheumatic Qualified Code(s): I35.0 - Nonrheumatic aortic (valve) stenosis (7) COPD (chronic obstructive pulmonary disease) Code(s): J44.9 - CHRONIC OBSTRUCTIVE PULMONARY DISEASE, UNSPECIFIED Qualifiers: (8) Diabetes mellitus Code(s): E11.9 - TYPE 2 DIABETES MELLITUS WITHOUT COMPLICATIONS Qualifiers: (9) Hypercholesterolemia Code(s): E78.00 - PURE HYPERCHOLESTEROLEMIA, UNSPECIFIED (10) Acute on chronic diastolic (congestive) heart failure Code(s): I50.33 - ACUTE ON CHRONIC DIASTOLIC (CONGESTIVE) HEART FAILURE (11) [id number] kidney injury Code(s): N17.9 - ACUTE KIDNEY FAILURE, UNSPECIFIED; N18.9 - CHRONIC KIDNEY DISEASE, UNSPECIFIED Qualifiers: Acute renal failure type: unspecified Chronic kidney disease stage: stage 2 (mild) Qualified Code(s): N17.9 - Acute kidney failure, unspecified; N18.2 - Chronic kidney disease, stage 2 (mild) (12) Epistaxis Code(s): R04.0 - EPISTAXIS (13) Diastolic dysfunction Code(s): I51.9 - HEART DISEASE, UNSPECIFIED (14) Mitral valve regurgitation Code(s): I34.0 - NONRHEUMATIC MITRAL (VALVE) INSUFFICIENCY Qualifiers: Cardiac valve disease etiology: nonrheumatic Qualified Code(s): I34.0 - Nonrheumatic mitral (valve) insufficiency (15) Tricuspid valve regurgitation Code(s): I07.1 - RHEUMATIC TRICUSPID INSUFFICIENCY Qualifiers: Cardiac valve disease etiology: nonrheumatic Qualified Code(s): I36.1 - Nonrheumatic tricuspid (valve) insufficiency Assessment/Plan 1. Persistent atrial fibrillation with slow ventricular response [id number] score of 7 on DOAC/Eliquis 2. Acute on chronic diastolic heart failure and moderate aortic stenosis 3. COPD 4. Type 2 DM 5. Hypertensive heart disease 6. Hypercholesterolemia 7. Chronic kidney disease 8. Anemia 9. Degenerative joint disease post right THR 10. CAD, angina pectoris 11. History of epistaxis PLAN: 1. Oral diuresis and Aldactone 50 mg QD with monitor renal function and electrolytes 2. Still off Bystolic, but consider restarting it once improved respiratory miller. Continue Lisinopril 40 mg QD, Eliquis 5 mg BID, Lipitor 20 mg QHS and Amlodipine 10 mg QD 3. Bronchodilator and O2 as needed 4. Deemed not a candidate for aortic valve surgery with recent valve evaluation Further plans are to follow Armen Stewart MD
[2018-06-15] MEDS: DOCUSATE SODIUM 100 MG CAPSULE (FP) PO SCH (10:02)
[2018-06-15] MEDS: SERTRALINE HCL 50 MG TABLET (FP) PO SCH (10:02)
[2018-06-15] MEDS: LISINOPRIL 20 MG TABLET (FP) PO SCH (10:03)
[2018-06-15] MEDS: CEFUROXIME AXETIL 250 MG TABLET PO SCH ×2 (10:03→22:37)
[2018-06-15] MEDS: SPIRONOLACTONE 25 MG TABLET (FP) PO SCH (10:03)
[2018-06-15] MEDS: amLODIPine BESYLATE 10 MG TABLET (FP) PO SCH (10:04)
[2018-06-15] MEDS: APIXABAN 5 MG TABLET PO SCH ×2 (10:04→22:37)
[2018-06-15] MEDS: FUROSEMIDE 40 MG TABLET (FP) PO SCH (10:04)
[2018-06-15] MEDS: PANTOPRAZOLE 20 MG TABLET (FP) PO SCH (10:04)
[2018-06-15] MEDS ORDERED: INSULIN (LEVEMIR) 100 UNITS/ML UNITS SQ ONE (10:06)
--- NOTE | 2018-06-15 10:09 | PN ---
Physical Exam: SUBJECTIVE: Patient seen and examined, breathing improved, pleasant, eating 'a lot'. no new complaints, no back pain or urinary symptoms. OBJECTIVE: Vital Signs Period Temp Pulse Resp BP Sys/Mo Pulse Ox Last 24 Hr 97.8 F-98 F 76-92 20-20 153-169/70-89 94 Intake & Output 06/12/18 06/13/18 06/14/18 06/15/18 23:59 23:59 23:59 23:59 Intake Total 600 750 550 150 Balance 600 750 550 150 Weight 179 lb 4.8 oz 172 lb 4 oz GENERAL: The patient is awake, alert, mild tachypnea but improved, able to speak in full sentences HEAD: Normal with no signs of trauma. EYES: PERRL, extraocular movements intact, sclera anicteric, conjunctiva clear. No ptosis. ENT: Ears normal, nares patent, oropharynx clear without exudates, moist mucous membranes. NECK: soft, supple, improved neck vein distension LUNGS: overall unchanged air entry, decreased wheezing, no basilar rales appreciated today HEART: S1S2 irregular ABDOMEN: Soft, nontender, nondistended, normoactive bowel sounds, no guarding, no rebound EXTREMITIES: 1+ pedal pitting edema PSYCH: Normal mood, normal affect. SKIN: Warm, dry, normal turgor, no rashes or lesions noted Laboratory Results - last 24 hr 06/14/18 06/14/18 06/14/18 12:20 17:35 21:19 Sodium Potassium Chloride Carbon Dioxide Anion Gap BUN Creatinine Creat Clearance w eGFR POC Glucometer 358 354 346 Random Glucose Calcium Phosphorus Magnesium 06/15/18 06/15/18 05:25 06:30 Sodium 140 Potassium 4.8 Chloride 105 Carbon Dioxide 28 Anion Gap 8 BUN 53 H Creatinine 1.4 H Creat Clearance w eGFR 35.91 POC Glucometer 287 Random Glucose 235 H Calcium 8.5 Phosphorus 4.4 Magnesium 2.0 Active Medications Generic Name Dose Route Start Last Admin Trade Name Freq PRN Reason Stop Dose Admin Acetaminophen 650 mg 06/09/18 15:44 06/15/18 01:53 Tylenol - PO 650 mg Q4H PRN Administration FEVER Albuterol/Ipratropium 1 amp 06/13/18 16:00 06/15/18 09:00 Duoneb - NEB 1 amp RQID PK Administration Amlodipine Besylate 10 mg 06/10/18 10:00 06/15/18 10:04 Norvasc - PO 10 mg DAILY PK Administration Apixaban 5 mg 06/09/18 22:00 06/15/18 10:04 Eliquis - PO 5 mg BID PK Administration Atorvastatin Calcium 20 mg 06/09/18 22:00 06/14/18 21:22 Lipitor - PO 20 mg HS PK Administration Cefuroxime Axetil 250 mg 06/12/18 08:30 06/15/18 10:03 Ceftin - PO 250 mg BID@0830,2030 [facility] Administration Docusate Sodium 100 mg 06/11/18 10:00 06/15/18 10:02 Colace - PO 100 mg DAILY [facility] Administration Furosemide 40 mg 06/13/18 10:00 06/15/18 10:04 Lasix - PO 40 mg DAILY [facility] Administration Insulin Aspart 1 vial 06/11/18 11:36 06/15/18 06:32 Novolog Vial Sliding Scale - SQ 6 units ACHS [facility] Administration Protocol Insulin Detemir 5 units 06/15/18 10:06 Levemir Vial SQ 06/15/18 10:07 ONCE ONE Insulin Detemir 10 units 06/15/18 10:06 Levemir Vial SQ 0700 [facility] Lisinopril 40 mg 06/10/18 10:00 06/15/18 10:03 Prinivil PO 40 mg DAILY [facility] Administration Methylprednisolone Sodium Succinate 40 mg 06/15/18 20:00 Solu-Medrol - IVPUSH Q12H [facility] Pantoprazole Sodium 20 mg 06/10/18 19:00 06/15/18 10:04 Protonix - PO 20 mg DAILY [facility] Administration Polyethylene Glycol 17 gm 06/11/18 10:00 06/14/18 11:13 Miralax (For Daily Use) - PO 17 gm DAILY [facility] Administration Sertraline HCl 50 mg 06/10/18 10:00 06/15/18 10:02 Zoloft - PO 50 mg DAILY [facility] Administration Spironolactone 50 mg 06/09/18 16:00 06/15/18 10:03 Aldactone - PO 50 mg DAILY PK Administration Microbiology 06/11/18 20:13 Urine - Urine Clean Catch Urine Culture - Final Proteus Mirabilis 06/09/18 15:03 Urine - Urine Crandall Urine Culture - Final Proteus Mirabilis ASSESSMENT/PLAN: 82 year old female with underlying history of CAD (non-obstructive), angina pectoris, diastolic LV dysfunction with history of congestive heart failure, admitted in 04/2018 with diarrhea/SARA/bradycardia, mitral valve disease with mitral valve regurgitation, aortic valve disease with moderate aortic valve stenosis, tricuspid valve disease with tricuspid valve regurgitation and pulmonary hypertension, persistent atrial fibrillation on Eliquis, HTN/HCVD, type 2 diabetes mellitus, hypercholesterolemia, COPD, anemia, admitted with acute on chronic diastolic heart failure exacerbation -Acute on chronic diastolic heart failure exacerbation -Moderate aortic stenosis, not a candidate for TAVR given high surgical risk per cardiology -Persistent Atrial fibrillation with [id number] score of 7 -Acute COPD exacerbation -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 Slow steroid taper, change to q12h. standing and prn nebs. Unclear if patient on home oxygen, Confirm with family. Pulmonary input if fails to improve. Cardiology input noted, Aldactone/lisinopril. Resume bystolic per cardiology. Continue Eliquis. Cefuroxime day 4/5. Urine cultures noted. A1c noted, Diabetic diet, ISS, nutrition consult, Blood sugars rising, likely from steroids. Continue sertraline. DVTPPX eliquis as above Dispo pending clinical improvement in 48-72 hours. Encourage OOB. PT eval noted. Discussed with CM. Ambulatory oxygen needs assessment. Confirm with family if patient on bee oxygen. Plan discussed with patient and nursing in detail, all questions answered. Visit type - Emergency Visit Emergency Visit: Yes ED Registration Date: 06/09/18 Care time: The patient presented to the Emergency Department on the above date and was hospitalized for further evaluation of their emergent condition. - New Patient This patient is new to me today: No - Critical Care Critical Care patient: No - Discharge Referral Referred to [facility] Med P.C.: No
[2018-06-15] MEDS: POLYETHYLENE GLYCOL 3350 119 GM BTL PO SCH (10:28)
[2018-06-15] MEDS ORDERED: methylPREDNISolone NA SUCC 40 MG/1 ML VIAL IVPUSH SCH (20:00)
[2018-06-15] MEDS: ATORVASTATIN CA 20 MG TABLET (FP) PO SCH (22:37)
[2018-06-16] MEDS: INSULIN SLIDING SCALE (NOVOLOG) 1 VIAL SQ SCH ×4 (06:49→21:09)
[2018-06-16] MEDS ORDERED: INSULIN (LEVEMIR) 100 UNITS/ML UNITS SQ SCH (07:00)
[2018-06-16 07:42] LABS: ALK PHOS 57 U/L (45-117); ANION GAP 7 MMOL/L (8-16); BLOOD UREA NITROGEN 57 mg/dL (7-18); CALCIUM 8.1 mg/dL (8.5-10.1); CHLORIDE 104 mmol/L (98-107); CO2 28 mmol/L (21-32); CREATININE 1.4 mg/dL (0.55-1.3); GLUCOSE,RANDOM 237 mg/dL (74-106); MAGNESIUM 2.1 mg/dL (1.8-2.4); PHOSPHOROUS 4.1 mg/dL (2.5-4.9); POTASSIUM 4.9 mmol/L (3.5-5.1); SGOT/AST 8 U/L (15-37); SGPT/ALT 24 U/L (13-61); SODIUM 140 mmol/L (136-145); TOT PROT 5.6 g/dl (6.4-8.2)
[2018-06-16] MEDS: ALBUTEROL SO4 2.5/IPRATROPIUM 0.5 INH SOL 3 ML VIAL.NEB. NEB SCH ×4 (08:00→20:57)
[2018-06-16] MEDS: CEFUROXIME AXETIL 250 MG TABLET PO SCH ×2 (08:43→21:10)
--- NOTE | 2018-06-16 08:43 | PN ---
Physical Exam: SUBJECTIVE: Patient seen and examined by me at bedside Sleeping flat in bed comfortably No acute events overnight Reports some discomfort in the suprapubic region and left groin area that only happened twice. Otherwise, denies any fever, chills, nausea, vomiting, chest pain, palpitations , headaches, acute vision changes, hematuria, hematochezia, dysuria. OBJECTIVE: Vital Signs Period Temp Pulse Resp BP Sys/Mo Pulse Ox Last 24 Hr 97.5 F-98.2 F 72-90 20-20 140-160/57-84 95-96 GENERAL: The patient is awake, alert, fully oriented, in no acute distress EYES: Sclera anicteric, conjunctiva clear. No ptosis. ENT: Moist mucous membranes. LUNGS: Mild expiratory wheezing. Bibasilar rales improving throughout lung bases L>R HEART: Irregularly irregular rhythm, normal S1 and S2 with holosytolic ejection murmur. ABDOMEN: Soft, nontender, nondistended, normoactive bowel sounds. EXTREMITIES: Trace Pitting edema bilaterally. Laboratory Results 06/14/18 06:00 06/16/18 06:30 Active Medications Generic Name Dose Route Start Last Admin Trade Name Freq PRN Reason Stop Dose Admin Acetaminophen 650 mg 06/09/18 15:44 06/15/18 22:44 Tylenol - PO 650 mg Q4H PRN Administration FEVER Albuterol/Ipratropium 1 amp 06/13/18 16:00 06/15/18 20:38 Duoneb - NEB 1 amp RQID PK Administration Amlodipine Besylate 10 mg 06/10/18 10:00 06/15/18 10:04 Norvasc - PO 10 mg DAILY PK Administration Apixaban 5 mg 06/09/18 22:00 06/15/18 22:37 Eliquis - PO 5 mg BID PK Administration Atorvastatin Calcium 20 mg 06/09/18 22:00 06/15/18 22:37 Lipitor - PO 20 mg HS PK Administration Cefuroxime Axetil 250 mg 06/12/18 08:30 06/15/18 22:37 Ceftin - PO 250 mg BID@0830,2030 PK Administration Docusate Sodium 100 mg 06/11/18 10:00 06/15/18 10:02 Colace - PO 100 mg DAILY PK Administration Furosemide 40 mg 06/13/18 10:00 06/15/18 10:04 Lasix - PO 40 mg DAILY PK Administration Insulin Aspart 1 vial 06/11/18 11:36 06/16/18 06:49 Novolog Vial Sliding Scale - SQ 4 units ACHS PK Administration Protocol Insulin Detemir 10 units 06/16/18 07:00 06/16/18 06:47 Levemir Vial SQ 10 units 0700 PK Administration Lisinopril 40 mg 06/10/18 10:00 06/15/18 10:03 Prinivil PO 40 mg DAILY PK Administration Methylprednisolone Sodium Succinate 40 mg 06/15/18 20:00 06/15/18 22:37 Solu-Medrol - IVPUSH 40 mg BID PK Administration Pantoprazole Sodium 20 mg 06/10/18 19:00 06/15/18 10:04 Protonix - PO 20 mg DAILY PK Administration Polyethylene Glycol 17 gm 06/11/18 10:00 06/15/18 10:28 Miralax (For Daily Use) - PO 17 gm DAILY PK Administration Sertraline HCl 50 mg 06/10/18 10:00 06/15/18 10:02 Zoloft - PO 50 mg DAILY PK Administration Spironolactone 50 mg 06/09/18 16:00 06/15/18 10:03 Aldactone - PO 50 mg DAILY PK Administration ASSESSMENT/PLAN: Patient is an 82 year old female with a PMHx of COPD, diastolic heart failure and moderate aortic stenosis who presented with worsening shortness of breath and found to have Acute on Chronic diastolic CHF w/ COPD exacerbation. Acute on Chronic Diastolic CHF -Clinically improving -Continue Lasix 40mg PO daily -Continue Aldactone 50mg daily -Continue Lisinopril 40mg daily -May resume Bystolic, as per cardiology -Monitor BMP and electrolytes while on diuretics. -Daily Weights and strict I&O's. Weight 79.5kg today -Continue 02 Acute on Chronic COPD -Clinically improving -Continue Solu-medrol 40mg IVPB BID -Continue Duo-Neb QID standing -Continue 02 and 02 monitoring Urinary Tract Infection -Second Urine cultures grew Proteus -Continue Ceftin 250mg BID day #5 Aortic Stenosis -Not a candidate for Valve surgery at this time Hypokalemia- Improved -Likely from Lasix -Continue daily Potassium 20meq PO Persistent Atrial Fibrillation -Chadsvasc score 7 -Continue Eliquis 5mg BID Acute Kidney Injury- Stable -Likely secondary to Lasix use -Continue to monitor NIDDMII -ISS -BGM HTN -Continue Aldactone 50mg daily -Continue Lisinopril 40mg daily -Continue Amlodipine 10mg daily -Continue monitoring BP CKD -At baseline -Continue daily BMP HLD -Continue Lipitor 20mg F/E/N -On no fluids -Electrolytes wnl -Sodium controlled diet Prophylaxis -Eliquis 5mg BID for DVT -Protonix 20mg for GI Disposition -Full code -Encourage OOB. Patient requires home 02. -Continues to have shortness of breath. Will require inpatient Frida Diaz [id number] Visit type - Emergency Visit Emergency Visit: Yes ED Registration Date: 06/09/18 Care time: The patient presented to the Emergency Department on the above date and was hospitalized for further evaluation of their emergent condition. - New Patient This patient is new to me today: No - Critical Care Critical Care patient: No
--- NOTE | 2018-06-16 09:48 | PN ---
Teaching Attending Note Name of Resident: Frida Diaz ATTENDING PHYSICIAN STATEMENT I saw and evaluated the patient. I reviewed the resident's note and discussed the case with the resident. I agree with the resident's findings and plan as documented with exceptions below. SUBJECTIVE: Patient seen and examined, breathing better, some left sided abdominal pain yesterday with movements. No urinary symptoms. Last BM yesterday OBJECTIVE: Vital Signs Period Temp Pulse Resp BP Sys/Mo Pulse Ox Last 24 Hr 97.5 F-98.2 F 72-90 20-20 140-160/57-84 96 Intake & Output 06/13/18 06/14/18 06/15/18 06/16/18 23:59 23:59 23:59 23:59 Intake Total 352 357 0390 210 Balance 037 770 8032 210 Weight 172 lb 4 oz 175 lb 6 oz General: sitting in bed, breathing better, able to talk in full sentences neck: soft, supple, Chest: improved air entry, few basilar rales improved, scattered expiratory wheezing improved Abdomen:Soft, initially LMQ tenderness on superficial palpation, later when distracted in conversation, noted NT, no voluntary or involuntary guarding or rigidity, positive bowel sounds Extremities: improved pedal edema 1+ Home Medications Medication Instructions Recorded Lisinopril [Zestril] 40 mg PO DAILY 12/29/16 Simvastatin 40 mg PO DAILY 12/29/16 Omeprazole Magnesium [Prilosec Otc] 40 mg PO DAILY 09/06/17 Sertraline HCl [Zoloft -] 50 mg PO DAILY 09/09/17 Apixaban [Eliquis -] 5 mg PO BID #0 tablet 09/27/17 Albuterol Sulfate [Proair 90 mcg IH Q4H PRN 02/27/18 Respiclick] Spironolactone [Aldactone] 50 mg PO DAILY 15 Days #15 tablet 03/11/18 Furosemide [Lasix] 60 mg PO DAILY 05/13/18 Amlodipine Besylate [Norvasc -] 10 mg PO DAILY 30 Days #30 tablet 05/17/18 Active Medications Acetaminophen (Tylenol -) 650 mg PO Q4H PRN PRN Reason: FEVER Last Admin: 06/15/18 22:44 Dose: 650 mg Albuterol/Ipratropium (Duoneb -) 1 amp NEB RQID PK Last Admin: 06/16/18 08:00 Dose: 1 amp Amlodipine Besylate (Norvasc -) 10 mg PO DAILY [facility] Last Admin: 06/15/18 10:04 Dose: 10 mg Apixaban (Eliquis -) 5 mg PO BID [facility] Last Admin: 06/15/18 22:37 Dose: 5 mg Atorvastatin Calcium (Lipitor -) 20 mg PO HS [facility] Last Admin: 06/15/18 22:37 Dose: 20 mg Cefuroxime Axetil (Ceftin -) 250 mg PO BID@0830,2030 [facility] Last Admin: 06/15/18 22:37 Dose: 250 mg Docusate Sodium (Colace -) 100 mg PO DAILY [facility] Last Admin: 06/15/18 10:02 Dose: 100 mg Furosemide (Lasix -) 40 mg PO DAILY [facility] Last Admin: 06/15/18 10:04 Dose: 40 mg Insulin Aspart (Novolog Vial Sliding Scale -) 1 vial SQ ACHS [facility]; Protocol Last Admin: 06/16/18 06:49 Dose: 4 units Insulin Detemir (Levemir Vial) 10 units SQ 0700 [facility] Last Admin: 06/16/18 06:47 Dose: 10 units Lisinopril (Prinivil) 40 mg PO DAILY [facility] Last Admin: 06/15/18 10:03 Dose: 40 mg Pantoprazole Sodium (Protonix -) 20 mg PO DAILY [facility] Last Admin: 06/15/18 10:04 Dose: 20 mg Polyethylene Glycol (Miralax (For Daily Use) -) 17 gm PO DAILY [facility] Last Admin: 06/15/18 10:28 Dose: 17 gm Prednisone (Deltasone -) 60 mg PO DAILY [facility] Sertraline HCl (Zoloft -) 50 mg PO DAILY [facility] Last Admin: 06/15/18 10:02 Dose: 50 mg Spironolactone (Aldactone -) 50 mg PO DAILY [facility] Last Admin: 06/15/18 10:03 Dose: 50 mg Laboratory Results - last 24 hr 06/15/18 06/15/18 06/16/18 12:08 22:38 05:56 Sodium Potassium Chloride Carbon Dioxide Anion Gap BUN Creatinine Creat Clearance w eGFR POC Glucometer 307 354 229 Random Glucose Calcium Phosphorus Magnesium Total Bilirubin AST ALT Alkaline Phosphatase Total Protein Albumin 06/16/18 06:30 Sodium 140 Potassium 4.9 Chloride 104 Carbon Dioxide 28 Anion Gap 7 L BUN 57 H Creatinine 1.4 H Creat Clearance w eGFR 35.91 POC Glucometer Random Glucose 237 H Calcium 8.1 L Phosphorus 4.1 Magnesium 2.1 Total Bilirubin 1.0 AST 8 L ALT 24 Alkaline Phosphatase 57 Total Protein 5.6 L Albumin 3.0 L Microbiology 06/11/18 20:13 Urine - Urine Clean Catch Urine Culture - Final Proteus Mirabilis 06/09/18 15:03 Urine - Urine Crandall Urine Culture - Final Proteus Mirabilis ASSESSMENT AND PLAN: 82 year old female with underlying history of CAD (non-obstructive), angina pectoris, diastolic LV dysfunction with history of congestive heart failure, admitted in 04/2018 with diarrhea/SARA/bradycardia, mitral valve disease with mitral valve regurgitation, aortic valve disease with moderate aortic valve stenosis, tricuspid valve disease with tricuspid valve regurgitation and pulmonary hypertension, persistent atrial fibrillation on Eliquis, HTN/HCVD, type 2 diabetes mellitus, hypercholesterolemia, COPD, anemia, admitted with acute on chronic diastolic heart failure exacerbation -Acute on chronic diastolic heart failure exacerbation -Moderate aortic stenosis, not a candidate for TAVR given high surgical risk per cardiology -Persistent Atrial fibrillation with [id number] score of 7 -Acute COPD exacerbation -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 Breathing improved, changed to PO prednisone. Standing and prn nebs. Unclear if patient on home oxygen, Confirm with family. Pulmonary input if fails to improve. Cardiology input noted, Aldactone/lisinopril. Resume bystolic per cardiology. Continue Eliquis. Cefuroxime day 5/5. Urine cultures noted. A1c 7.8, Diabetic diet, ISS, nutrition consult, Blood sugars rising, likely from steroids. Levemir started, endocrine input, possible transition to oral hypoglycemics on dc with outpatient follow up. Continue sertraline. DVTPPX eliquis as above Dispo pending clinical improvement in 48-72 hours. Encourage OOB. PT eval noted. PT re-eval given clinical change last few days, now improved. Assess for SNF. Plan discussed with patient and nursing in detail, all questions answered.
--- NOTE | 2018-06-16 10:30 | PN ---
Progress Note, Physician Chief Complaint: Events noted Dyspnea persists, but better Generalized weakness Left lower quadrant abdominal discomfort History of Present Illness: Patient was seen and examined. Awake and alert. Chart was reviewed Persistent dyspnea but improving. Denies palpitations. Denies fever or chills As outlined left lower quadrant discomfort - Current Medication List Current Medications: Active Medications Acetaminophen (Tylenol -) 650 mg PO Q4H PRN PRN Reason: FEVER Last Admin: 06/15/18 22:44 Dose: 650 mg Albuterol/Ipratropium (Duoneb -) 1 amp NEB RQID [facility] Last Admin: 06/16/18 08:00 Dose: 1 amp Amlodipine Besylate (Norvasc -) 10 mg PO DAILY [facility] Last Admin: 06/15/18 10:04 Dose: 10 mg Apixaban (Eliquis -) 5 mg PO BID [facility] Last Admin: 06/15/18 22:37 Dose: 5 mg Atorvastatin Calcium (Lipitor -) 20 mg PO HS [facility] Last Admin: 06/15/18 22:37 Dose: 20 mg Cefuroxime Axetil (Ceftin -) 250 mg PO BID@0830,2030 [facility] Last Admin: 06/15/18 22:37 Dose: 250 mg Docusate Sodium (Colace -) 100 mg PO DAILY [facility] Last Admin: 06/15/18 10:02 Dose: 100 mg Furosemide (Lasix -) 40 mg PO DAILY [facility] Last Admin: 06/15/18 10:04 Dose: 40 mg Insulin Aspart (Novolog Vial Sliding Scale -) 1 vial SQ ACHS [facility]; Protocol Last Admin: 06/16/18 06:49 Dose: 4 units Insulin Detemir (Levemir Vial) 10 units SQ 0700 [facility] Last Admin: 06/16/18 06:47 Dose: 10 units Lisinopril (Prinivil) 40 mg PO DAILY [facility] Last Admin: 06/15/18 10:03 Dose: 40 mg Pantoprazole Sodium (Protonix -) 20 mg PO DAILY [facility] Last Admin: 06/15/18 10:04 Dose: 20 mg Polyethylene Glycol (Miralax (For Daily Use) -) 17 gm PO DAILY [facility] Last Admin: 06/15/18 10:28 Dose: 17 gm Prednisone (Deltasone -) 60 mg PO DAILY [facility] Sertraline HCl (Zoloft -) 50 mg PO DAILY [facility] Last Admin: 06/15/18 10:02 Dose: 50 mg Spironolactone (Aldactone -) 50 mg PO DAILY [facility] Last Admin: 06/15/18 10:03 Dose: 50 mg - Objective Vital Signs: Vital Signs Temperature 97.5 F L 06/16/18 06:00 Pulse Rate 73 06/16/18 06:00 Respiratory Rate 20 06/16/18 06:00 Blood Pressure 160/71 06/16/18 06:00 O2 Sat by Pulse Oximetry (%) 96 06/15/18 21:00 Eyes: Yes: PERRL HENT: Yes: Atraumatic Neck: Yes: Supple Cardiovascular: Yes: Pulse Irregular, Murmur (JAZMYN), S1, S2 Respiratory: Yes: Diminished Gastrointestinal: Yes: Normal Bowel Sounds, Soft. No: Tenderness Edema: No Additional Findings/Remarks: - Review of Systems Constitutional: denies: Chills, Fever Cardiovascular: reports: Chest Pain. denies: Palpitations, (+) Shortness of Breath Respiratory: reports: Cough. denies: Hemoptysis, Orthopnea, PND, (+) SOB, SOB on Exertion Gastrointestinal: denies: Abdominal Pain, Constipation, Diarrhea, Melena, Nausea , Rectal Bleeding, Vomiting Neurological: denies: Dizziness, Headache, Seizure, Syncope Labs: 06/16/18 06:30 Problem List - Problems (1) Anemia Code(s): D64.9 - ANEMIA, UNSPECIFIED Qualifiers: (2) Atrial fibrillation with slow ventricular response Code(s): I48.91 - UNSPECIFIED ATRIAL FIBRILLATION (3) CHF exacerbation Code(s): I50.9 - HEART FAILURE, UNSPECIFIED Qualifiers: Heart failure type: diastolic Qualified Code(s): I50.33 - Acute on chronic diastolic (congestive) heart failure (4) Chronic anticoagulation Code(s): Z79.01 - [employer] (CURRENT) USE OF 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 (5) HTN (hypertension) Code(s): I10 - ESSENTIAL (PRIMARY) HYPERTENSION Qualifiers: (6) Aortic valve stenosis Code(s): I35.0 - NONRHEUMATIC AORTIC (VALVE) STENOSIS Qualifiers: Cardiac valve disease etiology: nonrheumatic Qualified Code(s): I35.0 - Nonrheumatic aortic (valve) stenosis (7) COPD (chronic obstructive pulmonary disease) Code(s): J44.9 - CHRONIC OBSTRUCTIVE PULMONARY DISEASE, UNSPECIFIED Qualifiers: (8) Diabetes mellitus Code(s): E11.9 - TYPE 2 DIABETES MELLITUS WITHOUT COMPLICATIONS Qualifiers: (9) Hypercholesterolemia Code(s): E78.00 - PURE HYPERCHOLESTEROLEMIA, UNSPECIFIED (10) Acute on chronic diastolic (congestive) heart failure Code(s): I50.33 - ACUTE ON CHRONIC DIASTOLIC (CONGESTIVE) HEART FAILURE (11) [id number] kidney injury Code(s): N17.9 - ACUTE KIDNEY FAILURE, UNSPECIFIED; N18.9 - CHRONIC KIDNEY DISEASE, UNSPECIFIED Qualifiers: Acute renal failure type: unspecified Chronic kidney disease stage: stage 2 (mild) Qualified Code(s): N17.9 - Acute kidney failure, unspecified; N18.2 - Chronic kidney disease, stage 2 (mild) (12) Epistaxis Code(s): R04.0 - EPISTAXIS (13) Diastolic dysfunction Code(s): I51.9 - HEART DISEASE, UNSPECIFIED (14) Mitral valve regurgitation Code(s): I34.0 - NONRHEUMATIC MITRAL (VALVE) INSUFFICIENCY Qualifiers: Cardiac valve disease etiology: nonrheumatic Qualified Code(s): I34.0 - Nonrheumatic mitral (valve) insufficiency (15) Tricuspid valve regurgitation Code(s): I07.1 - RHEUMATIC TRICUSPID INSUFFICIENCY Qualifiers: Cardiac valve disease etiology: nonrheumatic Qualified Code(s): I36.1 - Nonrheumatic tricuspid (valve) insufficiency Assessment/Plan 1. Persistent atrial fibrillation with slow ventricular response [id number] score of 7 on DOAC/Eliquis 2. Acute on chronic diastolic heart failure and moderate aortic stenosis 3. COPD 4. Type 2 DM 5. Hypertensive heart disease 6. Hypercholesterolemia 7. Chronic kidney disease 8. Anemia 9. Degenerative joint disease post right THR 10. CAD, angina pectoris 11. History of epistaxis PLAN: 1. Oral diuresis and Aldactone 50 mg QD with monitor renal function and electrolytes 2. Still off Bystolic, but consider restarting it once improved respiratory miller. Continue Lisinopril 40 mg QD, Eliquis 5 mg BID, Lipitor 20 mg QHS and Amlodipine 10 mg QD 3. Bronchodilator and O2 as needed 4. Deemed not a candidate for aortic valve surgery with recent valve evaluation 5. If abdominal pain continues, may need imaging study. She states that she had a bowel movement yesterday Further plans are to follow Armen Stewart MD
[2018-06-16] MEDS: LISINOPRIL 20 MG TABLET (FP) PO SCH (10:44)
[2018-06-16] MEDS: FUROSEMIDE 40 MG TABLET (FP) PO SCH (10:44)
[2018-06-16] MEDS: amLODIPine BESYLATE 10 MG TABLET (FP) PO SCH (10:44)
[2018-06-16] MEDS: DOCUSATE SODIUM 100 MG CAPSULE (FP) PO SCH (10:44)
[2018-06-16] MEDS: APIXABAN 5 MG TABLET PO SCH ×2 (10:44→21:10)
[2018-06-16] MEDS: SERTRALINE HCL 50 MG TABLET (FP) PO SCH (10:44)
[2018-06-16] MEDS: SPIRONOLACTONE 25 MG TABLET (FP) PO SCH (10:44)
[2018-06-16] MEDS: PANTOPRAZOLE 20 MG TABLET (FP) PO SCH (10:44)
[2018-06-16] MEDS: POLYETHYLENE GLYCOL 3350 119 GM BTL PO SCH (10:45)
[2018-06-16] MEDS: predniSONE 20 MG TABLET (UD) PO SCH (10:46)
[2018-06-16] MEDS: ACETAMINOPHEN 325 MG TABLET (FP) PO PRN ×2 (11:19→21:14)
--- NOTE | 2018-06-16 12:43 | CONSULT ---
Consult Consult Specialty:: Endocrinology Referred by:: Dr Quiñones Reason for Consultation:: Hyperglycemia - History of Present Illness Chief Complaint: SOB History of Present Illness: This is an 82 year old female withh/o CAD (non-obstructive), angina pectoris, HFPEF NYHA 3 baseline, MV regurgitation, moderate AV stenosis, TV regurgitation and pulmonary HTN, persistent AF on Eliquis, HTN, HLD, T2DM, Thyroid nodule, hypercholesterolemia, COPD, asthma, anemia, R hip replacement with chronic RLE edema, presenting with sob, dry cough and dizziness x 3 days. She stated her symptoms had been getting progressively worse and were similar to presenting ED symptoms in April. She reports worsening exercise tolerance and sob even at rest, as well as worsening orthopnea and pedal edema. She has been compliant with all of her medication but was taken off Aldactone by PCP 2 w ago. Pt was last seen in the office on 04.29.18. Labs in Mar showed a creatinine 1.98 with K + of 6.2. Pt was getting Lantus 16 daily with no orals b/o renal insufficiency. - History Source History Provided By: Patient, Medical Record - Past Medical History Cardio/Vascular: Yes: AFIB, Aortic Stenosis, CAD, CHF, HTN, Hyperlipdemia, Mitral Insufficiency, Murmur, Pulmonary Hypertension Pulmonary: Yes: Asthma, COPD, O2 Dependent, Pneumonia Musculoskeletal: Yes: Osteoarthritis (had hip and knee replacement, still with some healing problems ), Other Endocrine: Yes: Diabetes Mellitus, Other (Thyroid nodule) - Past Surgical History Past Surgical History: Yes: Joint Replacement - Alcohol/Substance Use Hx Alcohol Use: No History of Substance Use: reports: None - Smoking History Smoking history: Former smoker Have you smoked in the past 12 months: No Aproximately how many cigarettes per day: 0 If you are a former smoker, when did you quit?: many years ago - Social History Usual Living Arrangement: Alone ADL: Support Services History of Recent Travel: No Home Medications - Allergies Allergies/Adverse Reactions: Allergies Allergy/AdvReac Type Severity Reaction Status Date / Time ciprofloxacin [From Cipro] Allergy Verified 06/09/18 12:38 ciprofloxacin HCl Allergy Verified 06/09/18 12:38 [From Cipro] - Home Medications Home Medications: Ambulatory Orders Lisinopril [Zestril] 40 mg PO DAILY 12/29/16 Simvastatin 40 mg PO DAILY 12/29/16 Omeprazole Magnesium [Prilosec Otc] 40 mg PO DAILY 09/06/17 Sertraline HCl [Zoloft -] 50 mg PO DAILY 09/09/17 Apixaban [Eliquis -] 5 mg PO BID #0 tablet 09/27/17 Albuterol Sulfate [Proair Respiclick] 90 mcg IH Q4H PRN 02/27/18 Spironolactone [Aldactone] 50 mg PO DAILY 15 Days #15 tablet 03/11/18 Furosemide [Lasix] 60 mg PO DAILY 05/13/18 Amlodipine Besylate [Norvasc -] 10 mg PO DAILY 30 Days #30 tablet 05/17/18 Family Disease History - Family Disease History Family Disease History: Diabetes: Mother, Heart Disease: Father, Other: Brother (HTN, ), Daughter (alive and well) Other Family History: No family h/o DM Review of Systems - Review of Systems Constitutional: reports: Malaise Eyes: reports: No Symptoms HENT: reports: No Symptoms Neck: reports: No Symptoms Cardiovascular: reports: Shortness of Breath Respiratory: reports: SOB Gastrointestinal: reports: No Symptoms Genitourinary: reports: No Symptoms Breasts: reports: No Symptoms Reported Musculoskeletal: reports: Other (Rt groin pain on movement) Physical Exam Vital Signs: Vital Signs Temperature 97.3 F L 06/16/18 10:00 Pulse Rate 76 06/16/18 10:00 Respiratory Rate 20 06/16/18 10:00 Blood Pressure 159/61 06/16/18 10:00 O2 Sat by Pulse Oximetry (%) 96 06/15/18 21:00 Constitutional: Yes: No Distress, Anxious Eyes: Yes: Conjunctiva Clear, EOM Intact HENT: Yes: Atraumatic, Normocephalic Neck: Yes: Supple, Trachea Midline Cardiovascular: Yes: Other (heart rate irregular) Respiratory: Yes: Regular, CTA Bilaterally Gastrointestinal: Yes: Normal Bowel Sounds, Soft Musculoskeletal: Yes: WNL Extremities: Yes: WNL Edema: No Neurological: Yes: Alert, Oriented Labs: CBC, BMP 06/14/18 06:00 06/16/18 06:30 Assessment/Plan AP: T2DM Thyroid nodule Persistent atrial fibrillation with slow ventricular response CHF COPD Hypercholesterolemia Chronic kidney disease Anemia Degenerative joint disease post right THR CAD, angina pectoris H/o Hyperkalemia BGM QACHS Levemir 15 units daily Novolog SS coverage Will Add Prandin 1mg TID with meals Will discharge pt home on Levemir 15 daily and Prandin. Will need Novolog also while pt is on Prednisone. Will F/U
[2018-06-16] MEDS ORDERED: PT OWN MED DRAWER 7, Y5N ONE (18:38)
[2018-06-16] MEDS: REPAGLINIDE 1 MG TABLET PO SCH (18:39)
[2018-06-16] MEDS: ATORVASTATIN CA 20 MG TABLET (FP) PO SCH (21:10)
[2018-06-17] MEDS ORDERED: PT OWN MED DRAWER 7, Y5N ONE ×3 (05:28→17:43)
[2018-06-17] MEDS: INSULIN (LEVEMIR) 100 UNITS/ML UNITS SQ SCH (06:35)
[2018-06-17] MEDS: REPAGLINIDE 1 MG TABLET PO SCH ×3 (06:36→17:10)
[2018-06-17] MEDS: INSULIN SLIDING SCALE (NOVOLOG) 1 VIAL SQ SCH ×4 (06:36→22:45)
[2018-06-17 07:38] LABS: ANION GAP 7 MMOL/L (8-16); BLOOD UREA NITROGEN 59 mg/dL (7-18); CALCIUM 8.5 mg/dL (8.5-10.1); CHLORIDE 102 mmol/L (98-107); CO2 29 mmol/L (21-32); CREATININE 1.4 mg/dL (0.55-1.3); POTASSIUM 4.8 mmol/L (3.5-5.1); SODIUM 139 mmol/L (136-145)
[2018-06-17 07:42] LABS: GLUCOSE,RANDOM 309 mg/dL (74-106)
[2018-06-17] MEDS: ALBUTEROL SO4 2.5/IPRATROPIUM 0.5 INH SOL 3 ML VIAL.NEB. NEB SCH ×4 (08:53→20:35)
--- NOTE | 2018-06-17 09:34 | PN ---
Teaching Attending Note Name of Resident: Frida Diaz ATTENDING PHYSICIAN STATEMENT I saw and evaluated the patient. I reviewed the resident's note and discussed the case with the resident. I agree with the resident's findings and plan as documented with exceptions below. SUBJECTIVE: Patient seen and examined. breathing improved, still anxious, reports still some urinary burning. Overall much better. Tolerating diet well. OBJECTIVE: Vital Signs Period Temp Pulse Resp BP Sys/Mo Pulse Ox Last 24 Hr 97.3 F-98.2 F 68-85 18-20 152-160/59-76 97 Intake & Output 06/14/18 06/15/18 06/16/18 06/17/18 23:59 23:59 23:59 23:59 Intake Total 550 1240 330 Balance 550 1240 330 Weight 175 lb 6 oz General: sitting in bed, no tachypnea or use of accessory muscles of respiration CVS:S1S2 irregular Chest: Improved basilar rales and air entry, occasionally expiratory wheezing, markedly improved. Extremities: trace pedal edema Abdomen:soft, NT, obese, positive bowel sounds Home Medications Medication Instructions Recorded Lisinopril [Zestril] 40 mg PO DAILY 12/29/16 Simvastatin 40 mg PO DAILY 12/29/16 Omeprazole Magnesium [Prilosec Otc] 40 mg PO DAILY 09/06/17 Sertraline HCl [Zoloft -] 50 mg PO DAILY 09/09/17 Apixaban [Eliquis -] 5 mg PO BID #0 tablet 09/27/17 Albuterol Sulfate [Proair 90 mcg IH Q4H PRN 02/27/18 Respiclick] Furosemide [Lasix] 60 mg PO DAILY 05/13/18 Amlodipine Besylate [Norvasc -] 10 mg PO DAILY 30 Days #30 tablet 05/17/18 Ferrous Sulfate 325 mg PO BID 06/17/18 Insulin Glargine,Hum.rec.anlog 15 unit SQ DAILY 06/17/18 [Lantus] Nebivolol HCl [Bystolic] 20 mg PO DAILY 06/17/18 Repaglinide 1 mg PO TID 06/17/18 Salmeterol/Fluticasone [Advair 1 inh PO BID 06/17/18 100Mcg/50Mcg -] Laboratory Results - last 24 hr 06/16/18 06/16/18 06/16/18 11:04 16:40 21:08 Sodium Potassium Chloride Carbon Dioxide Anion Gap BUN Creatinine Creat Clearance w eGFR POC Glucometer 307 234 334 Random Glucose Calcium 06/17/18 06/17/18 06:00 06:33 Sodium 139 Potassium 4.8 Chloride 102 Carbon Dioxide 29 Anion Gap 7 L BUN 59 H Creatinine 1.4 H Creat Clearance w eGFR 35.91 POC Glucometer 304 Random Glucose 309 H* Calcium 8.5 ASSESSMENT AND PLAN: 82 year old female with underlying history of CAD (non-obstructive), angina pectoris, diastolic LV dysfunction with history of congestive heart failure, admitted in 04/2018 with diarrhea/SARA/bradycardia, mitral valve disease with mitral valve regurgitation, aortic valve disease with moderate aortic valve stenosis, tricuspid valve disease with tricuspid valve regurgitation and pulmonary hypertension, persistent atrial fibrillation on Eliquis, HTN/HCVD, type 2 diabetes mellitus, hypercholesterolemia, COPD, anemia, admitted with acute on chronic diastolic heart failure exacerbation -Acute on chronic diastolic heart failure exacerbation -Moderate aortic stenosis, not a candidate for TAVR given high surgical risk per cardiology -Persistent Atrial fibrillation with [id number] score of 7 -Acute COPD exacerbation -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 Breathing improved, PO prednisone taper. Standing and prn nebs. Unclear if patient on home oxygen, Confirm with family. Cardiology input noted, Aldactone/lisinopril. Resume bystolic per cardiology. Continue Eliquis. Still symptomatic, continue Cefuroxime day 6. Urine cultures noted. A1c 7.8, Diabetic diet, ISS, nutrition consult, Called [facility] pharmacy, patient on lantus 15 units daily and repaglinide 1 mg TID. Resume on D/c. Meds updated. Resume on d.c. Endocrine input appreciated. Continue sertraline. DVTPPX eliquis as above Dispo Clinically improved, PT re-eval to address if patient needs SNF Discussed with social work to confirm if patient on oxygen at home. Dispo plan for d/c home with services vs SNF today or tomorrow pending disposition arrangements. Discussed with nursing.
[2018-06-17] MEDS: LISINOPRIL 20 MG TABLET (FP) PO SCH (10:14)
[2018-06-17] MEDS: SPIRONOLACTONE 25 MG TABLET (FP) PO SCH (10:14)
[2018-06-17] MEDS: CEFUROXIME AXETIL 250 MG TABLET PO SCH ×2 (10:14→22:45)
[2018-06-17] MEDS: predniSONE 20 MG TABLET (UD) PO SCH (10:14)
[2018-06-17] MEDS: ACETAMINOPHEN 325 MG TABLET (FP) PO PRN ×2 (10:14→22:49)
[2018-06-17] MEDS: POLYETHYLENE GLYCOL 3350 119 GM BTL PO SCH (10:15)
[2018-06-17] MEDS: PANTOPRAZOLE 20 MG TABLET (FP) PO SCH (10:15)
[2018-06-17] MEDS: amLODIPine BESYLATE 10 MG TABLET (FP) PO SCH (10:15)
[2018-06-17] MEDS: APIXABAN 5 MG TABLET PO SCH ×2 (10:15→22:45)
[2018-06-17] MEDS: DOCUSATE SODIUM 100 MG CAPSULE (FP) PO SCH (10:15)
[2018-06-17] MEDS: SERTRALINE HCL 50 MG TABLET (FP) PO SCH (10:15)
[2018-06-17] MEDS: FUROSEMIDE 40 MG TABLET (FP) PO SCH (10:15)
--- NOTE | 2018-06-17 10:17 | PN ---
Progress Note (short form) - Note Progress Note: Feels better Blood sugar 200s to 300s No hypos Vital Signs Period Temp Pulse Resp BP Sys/Mo Pulse Ox Last 24 Hr 97.8 F-98.2 F 68-85 18-20 152-160/59-76 97-99 PE: AOx3 Neck: supple, No JVD HEENY: EOMI Lungs: Basal crackles CVS: S1S2 Abd: Benign Ext: Trace edema Neuro: No focal deficit CMP Sodium 139 mmol/L (136-145) 06/17/18 06:00 Potassium 4.8 mmol/L (3.5-5.1) 06/17/18 06:00 Chloride 102 mmol/L (98-107) 06/17/18 06:00 Carbon Dioxide 29 mmol/L (21-32) 06/17/18 06:00 Anion Gap 7 MMOL/L (8-16) L 06/17/18 06:00 BUN 59 mg/dL (7-18) H 06/17/18 06:00 Creatinine 1.4 mg/dL (0.55-1.3) H 06/17/18 06:00 Creat Clearance w eGFR 35.91 (>60) 06/17/18 06:00 POC Glucometer 304 UNITS (80-120) 06/17/18 06:33 Random Glucose 309 mg/dL (74-106) H* 06/17/18 06:00 Hemoglobin A1c % 7.8 % (4.2-6.3) H 06/12/18 06:00 Calcium 8.5 mg/dL (8.5-10.1) 06/17/18 06:00 Phosphorus 4.1 mg/dL (2.5-4.9) 06/16/18 06:30 Magnesium 2.1 mg/dL (1.8-2.4) 06/16/18 06:30 Total Bilirubin 1.0 mg/dL (0.2-1) 06/16/18 06:30 AST 8 U/L (15-37) L 06/16/18 06:30 ALT 24 U/L (13-61) 06/16/18 06:30 Alkaline Phosphatase 57 U/L (45-117) 06/16/18 06:30 Creatine Kinase 41 IU/L (26-192) 06/10/18 05:15 Troponin I < 0.02 ng/ml (0.00-0.05) 06/10/18 05:15 B-Natriuretic Peptide 41644.9 pg/ml (5-450) H 06/09/18 13:00 Total Protein 5.6 g/dl (6.4-8.2) L 06/16/18 06:30 Albumin 3.0 g/dl (3.4-5.0) L 06/16/18 06:30 Current Medications Generic Name Dose Route Start Last Admin Trade Name Freq PRN Reason Stop Dose Admin Acetaminophen 650 mg 06/09/18 15:44 06/17/18 10:14 Tylenol - PO 650 mg Q4H PRN Administration FEVER Albuterol/Ipratropium 1 amp 06/13/18 16:00 06/17/18 08:53 Duoneb - NEB 1 amp RQID PK Administration Amlodipine Besylate 10 mg 06/10/18 10:00 06/17/18 10:15 Norvasc - PO 10 mg DAILY PK Administration Apixaban 5 mg 06/09/18 22:00 06/17/18 10:15 Eliquis - PO 5 mg BID PK Administration Atorvastatin Calcium 20 mg 06/09/18 22:00 06/16/18 21:10 Lipitor - PO 20 mg HS PK Administration Cefuroxime Axetil 250 mg 06/12/18 08:30 06/17/18 10:14 Ceftin - PO 250 mg BID@0830,2030 PK Administration Docusate Sodium 100 mg 06/11/18 10:00 06/17/18 10:15 Colace - PO 100 mg DAILY PK Administration Furosemide 40 mg 06/13/18 10:00 06/17/18 10:15 Lasix - PO 40 mg DAILY PK Administration Insulin Aspart 1 vial 06/16/18 22:00 06/16/18 21:09 Novolog Vial Sliding Scale - SQ 6 units HS PK Administration Protocol Insulin Aspart 1 vial 06/16/18 16:30 06/17/18 06:36 Novolog Vial Sliding Scale - SQ 8 units TIDAC PK Administration Protocol Insulin Detemir 15 units 06/17/18 07:00 06/17/18 06:35 Levemir Vial SQ 15 units 0700 PK Administration Lisinopril 40 mg 06/10/18 10:00 06/17/18 10:14 Prinivil PO 40 mg DAILY PK Administration Pantoprazole Sodium 20 mg 06/10/18 19:00 06/17/18 10:15 Protonix - PO 20 mg DAILY PK Administration Polyethylene Glycol 17 gm 06/11/18 10:00 06/17/18 10:15 Miralax (For Daily Use) - PO 17 gm DAILY PK Administration Prednisone 60 mg 06/16/18 10:00 06/17/18 10:14 Deltasone - PO 60 mg DAILY PK Administration Repaglinide 1 mg 06/16/18 17:00 06/17/18 06:36 Prandin - PO 1 mg TID@0700,1100,1700 PK Administration Sertraline HCl 50 mg 06/10/18 10:00 06/17/18 10:15 Zoloft - PO 50 mg DAILY PK Administration Spironolactone 50 mg 06/09/18 16:00 06/17/18 10:14 Aldactone - PO 50 mg DAILY PK Administration AP: T2DM Thyroid nodule Persistent atrial fibrillation with slow ventricular response CHF COPD Hypercholesterolemia Chronic kidney disease Anemia Degenerative joint disease post right THR CAD, angina pectoris H/o Hyperkalemia BGM QACHS Levemir 15 units daily Novolog SS coverage Prandin 1mg TID with meals Will need Novolog also while pt is on Prednisone. Will F/U
--- NOTE | 2018-06-17 10:44 | PN ---
Progress Note, Physician Chief Complaint: Events noted Dyspnea persists, but better Generalized weakness improving History of Present Illness: Patient was seen and examined. Awake and alert. Chart was reviewed Persistent dyspnea but improving. Denies palpitations. Denies fever or chills Left lower quadrant abdominal discomfort better - Current Medication List Current Medications: Active Medications Acetaminophen (Tylenol -) 650 mg PO Q4H PRN PRN Reason: FEVER Last Admin: 06/17/18 10:14 Dose: 650 mg Albuterol/Ipratropium (Duoneb -) 1 amp NEB RQID [facility] Last Admin: 06/17/18 08:53 Dose: 1 amp Amlodipine Besylate (Norvasc -) 10 mg PO DAILY [facility] Last Admin: 06/17/18 10:15 Dose: 10 mg Apixaban (Eliquis -) 5 mg PO BID [facility] Last Admin: 06/17/18 10:15 Dose: 5 mg Atorvastatin Calcium (Lipitor -) 20 mg PO HS [facility] Last Admin: 06/16/18 21:10 Dose: 20 mg Cefuroxime Axetil (Ceftin -) 250 mg PO BID@0830,2030 [facility] Last Admin: 06/17/18 10:14 Dose: 250 mg Docusate Sodium (Colace -) 100 mg PO DAILY [facility] Last Admin: 06/17/18 10:15 Dose: 100 mg Furosemide (Lasix -) 40 mg PO DAILY [facility] Last Admin: 06/17/18 10:15 Dose: 40 mg Insulin Aspart (Novolog Vial Sliding Scale -) 1 vial SQ HS [facility]; Protocol Last Admin: 06/16/18 21:09 Dose: 6 units Insulin Aspart (Novolog Vial Sliding Scale -) 1 vial SQ TIDAC [facility]; Protocol Last Admin: 06/17/18 06:36 Dose: 8 units Insulin Detemir (Levemir Vial) 15 units SQ 0700 [facility] Last Admin: 06/17/18 06:35 Dose: 15 units Lisinopril (Prinivil) 40 mg PO DAILY [facility] Last Admin: 06/17/18 10:14 Dose: 40 mg Pantoprazole Sodium (Protonix -) 20 mg PO DAILY [facility] Last Admin: 06/17/18 10:15 Dose: 20 mg Polyethylene Glycol (Miralax (For Daily Use) -) 17 gm PO DAILY [facility] Last Admin: 06/17/18 10:15 Dose: 17 gm Prednisone (Deltasone -) 60 mg PO DAILY [facility] Last Admin: 06/17/18 10:14 Dose: 60 mg Repaglinide (Prandin -) 1 mg PO TID@0700,1100,1700 [facility] Last Admin: 06/17/18 06:36 Dose: 1 mg Sertraline HCl (Zoloft -) 50 mg PO DAILY [facility] Last Admin: 06/17/18 10:15 Dose: 50 mg Spironolactone (Aldactone -) 50 mg PO DAILY [facility] Last Admin: 06/17/18 10:14 Dose: 50 mg - Objective Vital Signs: Vital Signs Temperature 97.4 F L 06/17/18 10:00 Pulse Rate 76 06/17/18 10:00 Respiratory Rate 20 06/17/18 10:00 Blood Pressure 158/75 06/17/18 10:00 O2 Sat by Pulse Oximetry (%) 99 06/17/18 09:00 Eyes: Yes: PERRL HENT: Yes: Atraumatic Neck: Yes: Supple Cardiovascular: Yes: Pulse Irregular, Murmur (JAZMYN), S1, S2 Respiratory: Yes: Diminished Gastrointestinal: Yes: Normal Bowel Sounds, Soft. No: Tenderness Edema: No Additional Findings/Remarks: - Review of Systems Constitutional: denies: Chills, Fever Cardiovascular: reports: Chest Pain. denies: Palpitations, (+) Shortness of Breath Respiratory: reports: Cough. denies: Hemoptysis, Orthopnea, PND, (+) SOB, SOB on Exertion Gastrointestinal: denies: Abdominal Pain, Constipation, Diarrhea, Melena, Nausea , Rectal Bleeding, Vomiting Neurological: denies: Dizziness, Headache, Seizure, Syncope Labs: CBC, BMP 06/14/18 06:00 06/17/18 06:00 INR, PTT INR 2.46 (0.83-1.09) H 06/11/18 06:00 Problem List - Problems (1) Anemia Code(s): D64.9 - ANEMIA, UNSPECIFIED Qualifiers: (2) Atrial fibrillation with slow ventricular response Code(s): I48.91 - UNSPECIFIED ATRIAL FIBRILLATION (3) CHF exacerbation Code(s): I50.9 - HEART FAILURE, UNSPECIFIED Qualifiers: Heart failure type: diastolic Qualified Code(s): I50.33 - Acute on chronic diastolic (congestive) heart failure (4) Chronic anticoagulation Code(s): Z79.01 - GROUP HOME (CURRENT) USE OF 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 (5) HTN (hypertension) Code(s): I10 - ESSENTIAL (PRIMARY) HYPERTENSION Qualifiers: (6) Aortic valve stenosis Code(s): I35.0 - NONRHEUMATIC AORTIC (VALVE) STENOSIS Qualifiers: Cardiac valve disease etiology: nonrheumatic Qualified Code(s): I35.0 - Nonrheumatic aortic (valve) stenosis (7) COPD (chronic obstructive pulmonary disease) Code(s): J44.9 - CHRONIC OBSTRUCTIVE PULMONARY DISEASE, UNSPECIFIED Qualifiers: (8) Diabetes mellitus Code(s): E11.9 - TYPE 2 DIABETES MELLITUS WITHOUT COMPLICATIONS Qualifiers: Diabetes mellitus type: type 2 Diabetes mellitus computer terminal operator insulin use: without computer terminal operator use Diabetes mellitus complication status: without complication Qualified Code(s): E11.9 - Type 2 diabetes mellitus without complications (9) Hypercholesterolemia Code(s): E78.00 - PURE HYPERCHOLESTEROLEMIA, UNSPECIFIED (10) Acute on chronic diastolic (congestive) heart failure Code(s): I50.33 - ACUTE ON CHRONIC DIASTOLIC (CONGESTIVE) HEART FAILURE (11) [id number] kidney injury Code(s): N17.9 - ACUTE KIDNEY FAILURE, UNSPECIFIED; N18.9 - CHRONIC KIDNEY DISEASE, UNSPECIFIED Qualifiers: Acute renal failure type: unspecified Chronic kidney disease stage: stage 2 (mild) Qualified Code(s): N17.9 - Acute kidney failure, unspecified; N18.2 - Chronic kidney disease, stage 2 (mild) (12) Epistaxis Code(s): R04.0 - EPISTAXIS (13) Diastolic dysfunction Code(s): I51.9 - HEART DISEASE, UNSPECIFIED (14) Mitral valve regurgitation Code(s): I34.0 - NONRHEUMATIC MITRAL (VALVE) INSUFFICIENCY Qualifiers: Cardiac valve disease etiology: nonrheumatic Qualified Code(s): I34.0 - Nonrheumatic mitral (valve) insufficiency (15) Tricuspid valve regurgitation Code(s): I07.1 - RHEUMATIC TRICUSPID INSUFFICIENCY Qualifiers: Cardiac valve disease etiology: nonrheumatic Qualified Code(s): I36.1 - Nonrheumatic tricuspid (valve) insufficiency Assessment/Plan 1. Persistent atrial fibrillation with slow ventricular response [id number] score of 7 on DOAC/Eliquis 2. Acute on chronic diastolic heart failure and moderate aortic stenosis 3. COPD 4. Type 2 DM 5. Hypertensive heart disease 6. Hypercholesterolemia 7. Chronic kidney disease 8. Anemia 9. Degenerative joint disease post right THR 10. CAD, angina pectoris 11. History of epistaxis PLAN: 1. Oral diuresis and Aldactone 50 mg QD with monitor renal function and electrolytes 2. Still off Bystolic, but consider restarting it once improved respiratory miller. Continue Lisinopril 40 mg QD, Eliquis 5 mg BID, Lipitor 20 mg QHS and Amlodipine 10 mg QD 3. Bronchodilator, oral steroids taper and O2 as needed 4. Deemed not a candidate for aortic valve surgery with recent valve evaluation 5. OOB to chair Further plans are to follow Armen Stewart MD
--- NOTE | 2018-06-17 12:46 | PN ---
Physical Exam: SUBJECTIVE: Patient seen and examined by me at bedside. No acute events overnight Patient sitting in a chair eating comfortable States her breathing is improving but has some burning when she urinates. Physical therapy done today and patient still had limited indurance when walking with 3l 02, however, improved ambulation overall. Spoke to daughter, Laura, who reports patient is on 2.5L of 02 at home and wears it most of the day Otherwise, denies fever, chills, nausea, vomiting, abdominal pain, chest pain, palpitations, hematuria, dizziness, loss of consciousness. OBJECTIVE: Vital Signs Period Temp Pulse Resp BP Sys/Mo Pulse Ox Last 24 Hr 97.4 F-98.2 F 68-85 18-20 152-160/59-76 97-99 GENERAL: The patient is awake, alert, fully oriented, in no acute distress EYES: Sclera anicteric, conjunctiva clear. No ptosis. ENT: Moist mucous membranes. LUNGS: Mild expiratory wheezing. Bibasilar rales improving throughout lung bases L>R HEART: Irregularly irregular rhythm, normal S1 and S2 with holosytolic ejection murmur. ABDOMEN: Soft, nontender, nondistended, normoactive bowel sounds. EXTREMITIES: Trace Pitting edema bilaterally. Laboratory Results 06/17/18 06:00 Active Medications Generic Name Dose Route Start Last Admin Trade Name Freq PRN Reason Stop Dose Admin Acetaminophen 650 mg 06/09/18 15:44 06/17/18 10:14 Tylenol - PO 650 mg Q4H PRN Administration FEVER Albuterol/Ipratropium 1 amp 06/13/18 16:00 06/17/18 11:56 Duoneb - NEB 1 amp RQID PK Administration Amlodipine Besylate 10 mg 06/10/18 10:00 06/17/18 10:15 Norvasc - PO 10 mg DAILY PK Administration Apixaban 5 mg 06/09/18 22:00 06/17/18 10:15 Eliquis - PO 5 mg BID PK Administration Atorvastatin Calcium 20 mg 06/09/18 22:00 06/16/18 21:10 Lipitor - PO 20 mg HS KP Administration Cefuroxime Axetil 250 mg 06/12/18 08:30 06/17/18 10:14 Ceftin - PO 250 mg BID@0830,2030 PK Administration Docusate Sodium 100 mg 06/11/18 10:00 06/17/18 10:15 Colace - PO 100 mg DAILY PK Administration Furosemide 40 mg 06/13/18 10:00 06/17/18 10:15 Lasix - PO 40 mg DAILY PK Administration Insulin Aspart 1 vial 06/16/18 22:00 06/16/18 21:09 Novolog Vial Sliding Scale - SQ 6 units HS PK Administration Protocol Insulin Aspart 1 vial 06/16/18 16:30 06/17/18 11:35 Novolog Vial Sliding Scale - SQ 4 units TIDAC PK Administration Protocol Insulin Detemir 15 units 06/17/18 07:00 06/17/18 06:35 Levemir Vial SQ 15 units 0700 PK Administration Lisinopril 40 mg 06/10/18 10:00 06/17/18 10:14 Prinivil PO 40 mg DAILY PK Administration Pantoprazole Sodium 20 mg 06/10/18 19:00 06/17/18 10:15 Protonix - PO 20 mg DAILY PK Administration Polyethylene Glycol 17 gm 06/11/18 10:00 06/17/18 10:15 Miralax (For Daily Use) - PO 17 gm DAILY PK Administration Prednisone 60 mg 06/16/18 10:00 06/17/18 10:14 Deltasone - PO 60 mg DAILY PK Administration Repaglinide 1 mg 06/16/18 17:00 06/17/18 11:36 Prandin - PO 1 mg TID@0700,1100,1700 PK Administration Sertraline HCl 50 mg 06/10/18 10:00 06/17/18 10:15 Zoloft - PO 50 mg DAILY PK Administration Spironolactone 50 mg 06/09/18 16:00 06/17/18 10:14 Aldactone - PO 50 mg DAILY PK Administration ASSESSMENT/PLAN: Patient is an 82 year old female with a PMHx of COPD, diastolic heart failure and moderate aortic stenosis who presented with worsening shortness of breath and found to have Acute on Chronic diastolic CHF w/ COPD exacerbation. Acute on Chronic Diastolic CHF -Clinically improving -Continue Lasix 40mg PO daily -Continue Aldactone 50mg daily -Continue Lisinopril 40mg daily -May resume Bystolic, as per cardiology -Monitor BMP and electrolytes while on diuretics. -Daily Weights and strict I&O's. Weight 79.5kg today -Continue 02 Acute on Chronic COPD -Clinically improving -Continue Solu-medrol 40mg IVPB BID -Continue Duo-Neb QID standing -Continue 02 NC and 02 monitoring Urinary Tract Infection -Second Urine cultures grew Proteus -Continue Ceftin 250mg BID day #5 Aortic Stenosis -Not a candidate for Valve surgery at this time Hypokalemia- Improved -Likely from Lasix -Continue daily Potassium 20meq PO Persistent Atrial Fibrillation -Chadsvasc score 7 -Continue Eliquis 5mg BID Acute Kidney Injury- Stable -Likely secondary to Lasix use -Continue to monitor NIDDMII -ISS -BGM HTN -Continue Aldactone 50mg daily -Continue Lisinopril 40mg daily -Continue Amlodipine 10mg daily -Continue monitoring BP CKD -At baseline -Continue daily BMP HLD -Continue Lipitor 20mg F/E/N -On no fluids -Electrolytes wnl -Sodium controlled diet Prophylaxis -Eliquis 5mg BID for DVT -Protonix 20mg for GI Disposition -Full code -Encourage OOB. Patient requires home 02. -Patient improving. Will likely be discharged tomorrow Frida Diaz [id number] Visit type - Emergency Visit Emergency Visit: Yes ED Registration Date: 06/09/18 Care time: The patient presented to the Emergency Department on the above date and was hospitalized for further evaluation of their emergent condition. - New Patient This patient is new to me today: No - Critical Care Critical Care patient: No
[2018-06-17] MEDS: ATORVASTATIN CA 20 MG TABLET (FP) PO SCH (22:45)
[2018-06-18] MEDS ORDERED: PT OWN MED DRAWER 7, Y5N ONE ×3 (06:50→11:51)
[2018-06-18] MEDS: REPAGLINIDE 1 MG TABLET PO SCH ×3 (07:12→17:03)
[2018-06-18] MEDS: INSULIN (LEVEMIR) 100 UNITS/ML UNITS SQ SCH (07:12)
[2018-06-18] MEDS: INSULIN SLIDING SCALE (NOVOLOG) 1 VIAL SQ SCH ×4 (07:13→21:26)
[2018-06-18 07:49] LABS: ANION GAP 6 MMOL/L (8-16); BLOOD UREA NITROGEN 54 mg/dL (7-18); CALCIUM 8.2 mg/dL (8.5-10.1); CHLORIDE 104 mmol/L (98-107); CO2 29 mmol/L (21-32); CREATININE 1.3 mg/dL (0.55-1.3); MAGNESIUM 2.2 mg/dL (1.8-2.4); PHOSPHOROUS 4.3 mg/dL (2.5-4.9); POTASSIUM 4.5 mmol/L (3.5-5.1); SODIUM 139 mmol/L (136-145)
[2018-06-18] MEDS: ALBUTEROL SO4 2.5/IPRATROPIUM 0.5 INH SOL 3 ML VIAL.NEB. NEB SCH ×2 (07:55→11:51)
[2018-06-18 08:35] LABS: GLUCOSE,RANDOM 301 mg/dL (74-106)
--- NOTE | 2018-06-18 08:53 | PN ---
Progress Note (short form) - Note Progress Note: Feels better Blood sugar improving No hypos Vital Signs Period Temp Pulse Resp BP Sys/Mo Pulse Ox Last 24 Hr 97.4 F-98.1 F 67-91 18-20 115-179/54-83 99-99 PE: AOx3 Neck: supple, No JVD HEENY: EOMI Lungs: Basal crackles CVS: S1S2 Abd: Benign Ext: No edema Neuro: No focal deficit CMP Sodium 139 mmol/L (136-145) 06/18/18 07:00 Potassium 4.5 mmol/L (3.5-5.1) 06/18/18 07:00 Chloride 104 mmol/L (98-107) 06/18/18 07:00 Carbon Dioxide 29 mmol/L (21-32) 06/18/18 07:00 Anion Gap 6 MMOL/L (8-16) L 06/18/18 07:00 BUN 54 mg/dL (7-18) H 06/18/18 07:00 Creatinine 1.3 mg/dL (0.55-1.3) 06/18/18 07:00 Creat Clearance w eGFR 39.12 (>60) 06/18/18 07:00 POC Glucometer 312 UNITS (80-120) 06/18/18 06:02 Random Glucose 301 mg/dL (74-106) H* 06/18/18 07:00 Hemoglobin A1c % 7.8 % (4.2-6.3) H 06/12/18 06:00 Calcium 8.2 mg/dL (8.5-10.1) L 06/18/18 07:00 Phosphorus 4.3 mg/dL (2.5-4.9) 06/18/18 07:00 Magnesium 2.2 mg/dL (1.8-2.4) 06/18/18 07:00 Total Bilirubin 1.0 mg/dL (0.2-1) 06/16/18 06:30 AST 8 U/L (15-37) L 06/16/18 06:30 ALT 24 U/L (13-61) 06/16/18 06:30 Alkaline Phosphatase 57 U/L (45-117) 06/16/18 06:30 Creatine Kinase 41 IU/L (26-192) 06/10/18 05:15 Troponin I < 0.02 ng/ml (0.00-0.05) 06/10/18 05:15 B-Natriuretic Peptide 68020.9 pg/ml (5-450) H 06/09/18 13:00 Total Protein 5.6 g/dl (6.4-8.2) L 06/16/18 06:30 Albumin 3.0 g/dl (3.4-5.0) L 06/16/18 06:30 Current Medications Generic Name Dose Route Start Last Admin Trade Name Freq PRN Reason Stop Dose Admin Acetaminophen 650 mg 06/09/18 15:44 06/17/18 22:49 Tylenol - PO 650 mg Q4H PRN Administration FEVER Albuterol/Ipratropium 1 amp 06/13/18 16:00 06/17/18 20:35 Duoneb - NEB 1 amp RQID PK Administration Amlodipine Besylate 10 mg 06/10/18 10:00 06/17/18 10:15 Norvasc - PO 10 mg DAILY PK Administration Apixaban 5 mg 06/09/18 22:00 06/17/18 22:45 Eliquis - PO 5 mg BID PK Administration Atorvastatin Calcium 20 mg 06/09/18 22:00 06/17/18 22:45 Lipitor - PO 20 mg HS PK Administration Cefuroxime Axetil 250 mg 06/12/18 08:30 06/17/18 22:45 Ceftin - PO 250 mg BID@0830,2030 PK Administration Docusate Sodium 100 mg 06/11/18 10:00 06/17/18 10:15 Colace - PO 100 mg DAILY PK Administration Furosemide 40 mg 06/13/18 10:00 06/17/18 10:15 Lasix - PO 40 mg DAILY PK Administration Insulin Aspart 1 vial 06/16/18 22:00 06/17/18 22:45 Novolog Vial Sliding Scale - SQ 4 units HS PK Administration Protocol Insulin Aspart 1 vial 06/16/18 16:30 06/18/18 07:13 Novolog Vial Sliding Scale - SQ 8 units TIDAC [facility] Administration Protocol Insulin Detemir 15 units 06/17/18 07:00 06/18/18 07:12 Levemir Vial SQ 15 units 0700 PK Administration Lisinopril 40 mg 06/10/18 10:00 06/17/18 10:14 Prinivil PO 40 mg DAILY PK Administration Pantoprazole Sodium 20 mg 06/10/18 19:00 06/17/18 10:15 Protonix - PO 20 mg DAILY PK Administration Polyethylene Glycol 17 gm 06/11/18 10:00 06/17/18 10:15 Miralax (For Daily Use) - PO 17 gm DAILY PK Administration Prednisone 60 mg 06/16/18 10:00 06/17/18 10:14 Deltasone - PO 60 mg DAILY PK Administration Repaglinide 1 mg 06/16/18 17:00 06/18/18 07:12 Prandin - PO 1 mg TID@0700,1100,1700 PK Administration Sertraline HCl 50 mg 06/10/18 10:00 06/17/18 10:15 Zoloft - PO 50 mg DAILY PK Administration Spironolactone 50 mg 06/09/18 16:00 06/17/18 10:14 Aldactone - PO 50 mg DAILY PK Administration AP: T2DM Thyroid nodule Persistent atrial fibrillation with slow ventricular response CHF COPD Hypercholesterolemia Chronic kidney disease Anemia Degenerative joint disease post right THR CAD, angina pectoris H/o Hyperkalemia BGM QACHS Increse Levemir 17 units daily Increase Novolog SS coverage Prandin 1mg TID with meals Will need Novolog also while pt is on Prednisone. Will F/U
[2018-06-18] MEDS: amLODIPine BESYLATE 10 MG TABLET (FP) PO SCH (09:51)
[2018-06-18] MEDS: LISINOPRIL 20 MG TABLET (FP) PO SCH (09:52)
[2018-06-18] MEDS: predniSONE 20 MG TABLET (UD) PO SCH (09:52)
[2018-06-18] MEDS: DOCUSATE SODIUM 100 MG CAPSULE (FP) PO SCH (09:52)
[2018-06-18] MEDS: PANTOPRAZOLE 20 MG TABLET (FP) PO SCH (09:52)
[2018-06-18] MEDS: FUROSEMIDE 40 MG TABLET (FP) PO SCH (09:52)
[2018-06-18] MEDS: SERTRALINE HCL 50 MG TABLET (FP) PO SCH (09:52)
[2018-06-18] MEDS: CEFUROXIME AXETIL 250 MG TABLET PO SCH ×2 (09:52→21:25)
[2018-06-18] MEDS: APIXABAN 5 MG TABLET PO SCH ×2 (09:52→21:28)
[2018-06-18] MEDS: POLYETHYLENE GLYCOL 3350 119 GM BTL PO SCH (09:53)
[2018-06-18] MEDS: SPIRONOLACTONE 25 MG TABLET (FP) PO SCH (09:53)
[2018-06-18 12:45] VITALS: BMI 30.9
--- NOTE | 2018-06-18 13:58 | PN ---
Progress Note, Physician History of Present Illness: Dyspnea resolved, awaiting SNF placement. - Current Medication List Current Medications: Active Medications Acetaminophen (Tylenol -) 650 mg PO Q4H PRN PRN Reason: FEVER Last Admin: 06/17/18 22:49 Dose: 650 mg Albuterol/Ipratropium (Duoneb -) 1 amp NEB RQID [facility] Last Admin: 06/18/18 11:51 Dose: 1 amp Amlodipine Besylate (Norvasc -) 10 mg PO DAILY [facility] Last Admin: 06/18/18 09:51 Dose: 10 mg Apixaban (Eliquis -) 5 mg PO BID [facility] Last Admin: 06/18/18 09:52 Dose: 5 mg Atorvastatin Calcium (Lipitor -) 20 mg PO HS [facility] Last Admin: 06/17/18 22:45 Dose: 20 mg Cefuroxime Axetil (Ceftin -) 250 mg PO BID@0830,2030 [facility] Last Admin: 06/18/18 09:52 Dose: 250 mg Docusate Sodium (Colace -) 100 mg PO DAILY [facility] Last Admin: 06/18/18 09:52 Dose: 100 mg Furosemide (Lasix -) 40 mg PO DAILY [facility] Last Admin: 06/18/18 09:52 Dose: 40 mg Insulin Aspart (Novolog Vial Sliding Scale -) 1 vial SQ HS [facility]; Protocol Last Admin: 06/17/18 22:45 Dose: 4 units Insulin Aspart (Novolog Vial Sliding Scale -) 1 vial SQ TIDAC [facility]; Protocol Last Admin: 06/18/18 11:49 Dose: 4 units Insulin Detemir (Levemir Vial) 17 units SQ 0700 [facility] Lisinopril (Prinivil) 40 mg PO DAILY [facility] Last Admin: 06/18/18 09:52 Dose: 40 mg Pantoprazole Sodium (Protonix -) 20 mg PO DAILY [facility] Last Admin: 06/18/18 09:52 Dose: 20 mg Polyethylene Glycol (Miralax (For Daily Use) -) 17 gm PO DAILY [facility] Last Admin: 06/18/18 09:53 Dose: Not Given Prednisone (Deltasone -) 60 mg PO DAILY [facility] Last Admin: 06/18/18 09:52 Dose: 60 mg Repaglinide (Prandin -) 1 mg PO TID@0700,1100,1700 [facility] Last Admin: 06/18/18 11:52 Dose: 1 mg Sertraline HCl (Zoloft -) 50 mg PO DAILY [facility] Last Admin: 06/18/18 09:52 Dose: 50 mg Spironolactone (Aldactone -) 50 mg PO DAILY [facility] Last Admin: 06/18/18 09:53 Dose: 50 mg - Objective Vital Signs: Vital Signs Temperature 97.8 F 06/18/18 10:00 Pulse Rate 76 06/18/18 10:00 Respiratory Rate 18 06/18/18 10:00 Blood Pressure 163/80 06/18/18 10:00 O2 Sat by Pulse Oximetry (%) 99 06/18/18 09:00 Constitutional: Yes: No Distress, Calm Neck: Yes: Supple Cardiovascular: Yes: Regular Rate and Rhythm Respiratory: Yes: Regular, Diminished Gastrointestinal: Yes: Normal Bowel Sounds, Soft Edema: No Labs: CBC, BMP 06/14/18 06:00 06/18/18 07:00 INR, PTT INR 2.46 (0.83-1.09) H 06/11/18 06:00 Problem List - Problems (1) Chronic anticoagulation Code(s): Z79.01 - INTERMEDIATE (CURRENT) USE OF 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 (2) Anemia Code(s): D64.9 - ANEMIA, UNSPECIFIED Qualifiers: (3) Atrial fibrillation with slow ventricular response Code(s): I48.91 - UNSPECIFIED ATRIAL FIBRILLATION (4) Aortic valve stenosis Code(s): I35.0 - NONRHEUMATIC AORTIC (VALVE) STENOSIS Qualifiers: Cardiac valve disease etiology: nonrheumatic Qualified Code(s): I35.0 - Nonrheumatic aortic (valve) stenosis (5) COPD (chronic obstructive pulmonary disease) Code(s): J44.9 - CHRONIC OBSTRUCTIVE PULMONARY DISEASE, UNSPECIFIED Qualifiers: (6) Diabetes mellitus Code(s): E11.9 - TYPE 2 DIABETES MELLITUS WITHOUT COMPLICATIONS Qualifiers: Diabetes mellitus type: type 2 Diabetes mellitus remote computer terminal operator insulin use: without remote computer terminal operator use Diabetes mellitus complication status: without complication Qualified Code(s): E11.9 - Type 2 diabetes mellitus without complications (7) Hypercholesterolemia Code(s): E78.00 - PURE HYPERCHOLESTEROLEMIA, UNSPECIFIED (8) Acute on chronic diastolic (congestive) heart failure Code(s): I50.33 - ACUTE ON CHRONIC DIASTOLIC (CONGESTIVE) HEART FAILURE (9) Dyspnea Code(s): R06.00 - DYSPNEA, UNSPECIFIED Qualifiers: Dyspnea type: dyspnea on exertion Qualified Code(s): R06.09 - Other forms of dyspnea Assessment/Plan 1. Persistent atrial fibrillation with slow ventricular response [id number] score of 7 on DOAC/Eliquis 2. Acute on chronic diastolic heart failure and moderate aortic stenosis 3. COPD 4. Type 2 DM 5. Hypertensive heart disease 6. Hypercholesterolemia 7. Chronic kidney disease 8. Anemia 9. Degenerative joint disease post right THR 10. CAD, angina pectoris 11. History of epistaxis PLAN: 1. Oral diuresis with Lasix 40 qd and Aldactone 50 mg QD with monitor renal function and electrolytes 2. Observe off Bystolic previously held for slow afib. Continue Lisinopril 40 mg QD, Eliquis 5 mg BID, Lipitor 20 mg QHS and Amlodipine 10 mg QD 3. Bronchodilator, oral steroids taper, complete abx course and O2 as needed 4. Deemed not a candidate for aortic valve surgery with recent valve evaluation 5. OOB to chair, PT->SNF
--- NOTE | 2018-06-18 15:41 | DS ---
Physical Exam: SUBJECTIVE: Patient seen and examined by me at bedside. No acute events overnight Patient states breathing improved and is aware she will now require 3L 02 with f /up with pulmonology. Explained to patient that she will need outpatient pulm rehab OBJECTIVE: Vital Signs Period Temp Pulse Resp BP Sys/Mo Pulse Ox Last 24 Hr 97.7 F-98.1 F 67-91 18-18 115-179/59-83 99-99 PHYSICAL EXAM GENERAL: The patient is awake, alert, fully oriented, in no acute distress EYES: Sclera anicteric, conjunctiva clear. No ptosis. ENT: Moist mucous membranes. LUNGS: Mild expiratory wheezing. Bibasilar rales improving throughout lung bases L>R HEART: Irregularly irregular rhythm, normal S1 and S2 with holosytolic ejection murmur. ABDOMEN: Soft, nontender, nondistended, normoactive bowel sounds. EXTREMITIES: Trace Pitting edema bilaterally. Laboratory Results 06/14/18 06:00 06/18/18 07:00 Microbiology 06/11/18 20:13 Urine - Urine Clean Catch Urine Culture - Final Proteus Mirabilis 06/09/18 15:03 Urine - Urine [place] Urine Culture - Final Proteus Mirabilis PRE-HOSPITAL COURSE: Patient is an 82 year old female with a PMHx of CAD (non-obstructive), angina pectoris, diastolic LV dysfunction with history of congestive heart failure, aortic valve disease with moderate aortic valve stenosis, persistent atrial fibrillation on Eliquis, HTN/HCVD, IDDMII, hypercholesterolemia, COPD, anemia who presented with worsening shortness of breath and dyspnea on exertion with just a couple of steps. Patient was unable to lay down flat without shortness of breath associated with LE edema. Patient found to have wheezing and fluid overload. Patient admitted for COPD/CHF exacerbation. HOSPITAL COURSE: Throughout hospitalization, patient was restarted on Aldactone with IV Lasix and Duo-Nebs with Steroids. Patient gradually improved, but was also found to have UTI with urinary symptoms. She was started on Ceftin with urinary improvements. Patient's respiratory status significantly improved and eventually resumed her PO home medications of Lasix, lisinopril and amlodipine. Patient was also found to have hyperglycemia and her Insulin regimen was adjusted, as per endo. Patient now requires 3L of 02 instead of 2.5L. Patient medically cleared for discharged with VNS services Date of Admission:06/09/18 Date of Discharge: 06/18/18 Minutes to complete discharge: 45 Discharge Summary Reason For Visit: ACUTE ON CHF Current Active Problems Acute on chronic respiratory failure with hypoxemia (Acute) Anemia (Acute) Atrial fibrillation with slow ventricular response (Acute) CHF exacerbation (Acute) Chronic anticoagulation (Acute) HTN (hypertension) (Acute) Aortic valve stenosis (Chronic) COPD (chronic obstructive pulmonary disease) (Chronic) Diabetes mellitus (Chronic) Hypercholesterolemia (Chronic) Condition: Stable - Instructions Diet, Activity, Other Instructions: RECOMMENDATIONS: -You were seen here for shortness of breath due to fluids in your lungs and worsening COPD. Your water pill, Lasix, was increased here to help get rid of the water and you responded well to it. You were also given steroids and inhalers to help with the breathing. -You will be set up for visiting nursing services prior to discharge -You will need to increase our oxygen use from 2.5L to 3.0L as you are requiring more oxygen -Please monitor your oxygen levels at home with the pulse oximeter -You were also found to have elevated glucose levels on this admission, which might be from the steroids you are taking. The french weaver (diabetes doctor ) adjusted your Insulin. -Please continue to monitor your glucose levels. Watch for hypoglycemic episodes such as dizziness, lightheadedness, chest pain, or sweating. -If you continue to have worsening shortness of breath or chest pain, call 911 or come to the emergency department. FOLLOW UP: -Please follow up with your Primary care physician within a week -Please follow up with your anodiser within 1-2 weeks -Please follow up with your Criminal Lawyer within 1-2 weeks, as your insulin dose was changed -Please Follow up with your lung doctor within 1-2 weeks as you might benefit from outpatient pulmonary rehab. MEDICATIONS: -Your insulin has been increased to 17 units in the morning. A prescription will be sent to your pharmacy. -You will also be on a steroid taper. A prescription will be sent to your pharmacy. You will need to continue the anti-acid while on the steroids. Your steroid taper will be as followed: take a total of 40mg for three days, then 20mg for three days, then 10mg daily for three days, then 5mg daily for three days. -Your Lasix will be changed to 40mg daily. -You will also be prescribed a new inhaler called Combivent. A prescription will be sent to your pharmacy. -You medication Bysystolic has been discontinued. -You may resume the rest of your medications, including Lisinopril, and Amlodipine. -Please continue your home insulin sliding scale Referrals: Avinash Vásquez MD [Staff Physician] - Arvind Ravi MD [Primary Care Provider] - Armen Stewart MD [Staff Physician] - Dayna Toney MD [Staff Physician] - Disposition: VNS/HOME HEALTH CARE - Home Medications Comprehensive Discharge Medication List: Ambulatory Orders Lisinopril [Zestril] 40 mg PO DAILY 12/29/16 Simvastatin 40 mg PO DAILY 12/29/16 Omeprazole Magnesium [Prilosec Otc] 40 mg PO DAILY 09/06/17 Sertraline HCl [Zoloft -] 50 mg PO DAILY 09/09/17 Apixaban [Eliquis -] 5 mg PO BID #0 tablet 09/27/17 Albuterol Sulfate [Proair Respiclick] 90 mcg IH Q4H PRN 02/27/18 Amlodipine Besylate [Norvasc -] 10 mg PO DAILY 30 Days #30 tablet 05/17/18 Ferrous Sulfate 325 mg PO BID 06/17/18 Repaglinide 1 mg PO TID 06/17/18 Salmeterol/Fluticasone [Advair 100Mcg/50Mcg -] 1 inh PO BID 06/17/18 Cefuroxime Axetil [Ceftin -] 250 mg PO BID@0830,2030 #5 tablet 06/18/18 Furosemide [Lasix -] 40 mg PO DAILY #15 tablet 06/18/18 Insulin (Levemir) [Levemir Vial] 17 units SQ 0700 #2 vial 06/18/18 Ipratropium/Albuterol Sulfate [Combivent Respimat Inhal [place]] 4 gm IH BID #1 aer.w.adap 06/18/18 Prednisone See Taper PO DAILY #21 tablet 06/18/18 Prednisone See Taper PO DAILY #3 tablet 06/18/18 Spironolactone [Aldactone -] 50 mg PO DAILY #15 tablet 06/18/18 This patient is new to me today: No Emergency Visit: No Critical Care patient: No - Discharge Referral Referred to [facility] No
--- NOTE | 2018-06-18 16:20 | PN ---
Teaching Attending Note Name of Resident: Frida Diaz ATTENDING PHYSICIAN STATEMENT I saw and evaluated the patient. I reviewed the resident's note and discussed the case with the resident. I agree with the resident's findings and plan as documented. SUBJECTIVE: Ms Zafar says she is doing well. Denies cp, sob, n/v. OBJECTIVE: Last Vital Signs Temp Pulse Resp BP Pulse Ox 36.7 C 79 18 154/63 99 06/18/18 14:24 06/18/18 14:24 06/18/18 14:24 06/18/18 14:24 06/18/18 09:00 Gen: nad Pulm: minimal bibasilar ronchi CV: irreg irreg but rate controlled w/o m/r/g Abd: +bs, s/nt/nd Ext: no c/c/e Please refer to discharge summary by Dr Diaz Problem List - Problems (1) CHF exacerbation Code(s): I50.9 - HEART FAILURE, UNSPECIFIED Qualifiers: Heart failure type: diastolic Qualified Code(s): I50.33 - Acute on chronic diastolic (congestive) heart failure (2) Chronic anticoagulation Code(s): Z79.01 - SENIOR CARE (CURRENT) USE OF 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 (3) HTN (hypertension) Code(s): I10 - ESSENTIAL (PRIMARY) HYPERTENSION Qualifiers: (4) Aortic valve stenosis Code(s): I35.0 - NONRHEUMATIC AORTIC (VALVE) STENOSIS Qualifiers: Cardiac valve disease etiology: nonrheumatic Qualified Code(s): I35.0 - Nonrheumatic aortic (valve) stenosis (5) Chronic kidney disease (CKD) Code(s): N18.9 - CHRONIC KIDNEY DISEASE, UNSPECIFIED Qualifiers: Chronic kidney disease stage: stage 2 (mild) Qualified Code(s): N18.2 - Chronic kidney disease, stage 2 (mild) (6) Atrial fibrillation Code(s): I48.91 - UNSPECIFIED ATRIAL FIBRILLATION Qualifiers: Atrial fibrillation type: persistent Qualified Code(s): I48.1 - Persistent atrial fibrillation (7) Acute on chronic respiratory failure with hypoxemia Code(s): J96.21 - ACUTE AND CHRONIC RESPIRATORY FAILURE WITH HYPOXIA (8) COPD (chronic obstructive pulmonary disease) Code(s): J44.9 - CHRONIC OBSTRUCTIVE PULMONARY DISEASE, UNSPECIFIED Qualifiers:
[2018-06-18] MEDS: ACETAMINOPHEN 325 MG TABLET (FP) PO PRN (17:02)
[2018-06-18] MEDS: ATORVASTATIN CA 20 MG TABLET (FP) PO SCH (21:25)
[2018-06-19] MEDS ORDERED: PT OWN MED DRAWER 7, Y5N ONE ×2 (06:25→11:24)
[2018-06-19] MEDS: INSULIN SLIDING SCALE (NOVOLOG) 1 VIAL SQ SCH ×3 (06:30→17:18)
[2018-06-19] MEDS: REPAGLINIDE 1 MG TABLET PO SCH ×3 (06:30→17:18)
[2018-06-19] MEDS ORDERED: INSULIN (LEVEMIR) 100 UNITS/ML UNITS SQ SCH (07:00)
[2018-06-19] MEDS: SERTRALINE HCL 50 MG TABLET (FP) PO SCH (09:43)
[2018-06-19] MEDS: predniSONE 20 MG TABLET (UD) PO SCH (09:43)
[2018-06-19] MEDS: APIXABAN 5 MG TABLET PO SCH (09:51)
[2018-06-19] MEDS: PANTOPRAZOLE 20 MG TABLET (FP) PO SCH (09:51)
[2018-06-19] MEDS: DOCUSATE SODIUM 100 MG CAPSULE (FP) PO SCH (09:51)
[2018-06-19] MEDS: amLODIPine BESYLATE 10 MG TABLET (FP) PO SCH (09:51)
[2018-06-19] MEDS: CEFUROXIME AXETIL 250 MG TABLET PO SCH (09:51)
[2018-06-19] MEDS: SPIRONOLACTONE 25 MG TABLET (FP) PO SCH (09:51)
[2018-06-19] MEDS: LISINOPRIL 20 MG TABLET (FP) PO SCH (09:52)
[2018-06-19] MEDS: FUROSEMIDE 40 MG TABLET (FP) PO SCH (09:52)
--- NOTE | 2018-06-19 10:11 | PN ---
Progress Note, Physician Chief Complaint: Events noted Dyspnea persists, but better Generalized weakness improving History of Present Illness: Patient was seen and examined. Awake and alert. Chart was reviewed Persistent dyspnea but improving. Denies palpitations. Denies fever or chills - Current Medication List Current Medications: Active Medications Acetaminophen (Tylenol -) 650 mg PO Q4H PRN PRN Reason: FEVER Last Admin: 06/18/18 17:02 Dose: 650 mg Amlodipine Besylate (Norvasc -) 10 mg PO DAILY [facility] Last Admin: 06/19/18 09:51 Dose: 10 mg Apixaban (Eliquis -) 5 mg PO BID [facility] Last Admin: 06/19/18 09:51 Dose: 5 mg Atorvastatin Calcium (Lipitor -) 20 mg PO HS [facility] Last Admin: 06/18/18 21:25 Dose: 20 mg Cefuroxime Axetil (Ceftin -) 250 mg PO BID@0830,2030 [facility] Last Admin: 06/19/18 09:51 Dose: 250 mg Docusate Sodium (Colace -) 100 mg PO DAILY [facility] Last Admin: 06/19/18 09:51 Dose: 100 mg Furosemide (Lasix -) 40 mg PO DAILY [facility] Last Admin: 06/19/18 09:52 Dose: 40 mg Insulin Aspart (Novolog Vial Sliding Scale -) 1 vial SQ HS [facility]; Protocol Last Admin: 06/18/18 21:26 Dose: 2 units Insulin Aspart (Novolog Vial Sliding Scale -) 1 vial SQ TIDAC [facility]; Protocol Last Admin: 06/19/18 06:30 Dose: 4 units Insulin Detemir (Levemir Vial) 17 units SQ 0700 [facility] Last Admin: 06/19/18 06:29 Dose: 17 units Lisinopril (Prinivil) 40 mg PO DAILY [facility] Last Admin: 06/19/18 09:52 Dose: 40 mg Pantoprazole Sodium (Protonix -) 20 mg PO DAILY [facility] Last Admin: 06/19/18 09:51 Dose: 20 mg Polyethylene Glycol (Miralax (For Daily Use) -) 17 gm PO DAILY [facility] Last Admin: 06/18/18 09:53 Dose: Not Given Prednisone (Deltasone -) 60 mg PO DAILY [facility] Last Admin: 06/19/18 09:43 Dose: 60 mg Repaglinide (Prandin -) 1 mg PO TID@0700,1100,1700 [facility] Last Admin: 06/19/18 06:30 Dose: 1 mg Sertraline HCl (Zoloft -) 50 mg PO DAILY [facility] Last Admin: 06/19/18 09:43 Dose: 50 mg Spironolactone (Aldactone -) 50 mg PO DAILY [facility] Last Admin: 06/19/18 09:51 Dose: 50 mg - Objective Vital Signs: Vital Signs Temperature 98.1 F 06/19/18 06:00 Pulse Rate 65 06/19/18 06:00 Respiratory Rate 18 06/19/18 06:00 Blood Pressure 153/82 06/19/18 06:00 O2 Sat by Pulse Oximetry (%) 97 06/18/18 21:00 Eyes: Yes: PERRL HENT: Yes: Atraumatic Neck: Yes: Supple Cardiovascular: Yes: Pulse Irregular, Murmur (JAZMYN), S1, S2 Respiratory: Yes: Diminished Gastrointestinal: Yes: Normal Bowel Sounds, Soft. No: Tenderness Edema: No Additional Findings/Remarks: - Review of Systems Constitutional: denies: Chills, Fever Cardiovascular: reports: Chest Pain. denies: Palpitations, (+) Shortness of Breath Respiratory: reports: Cough. denies: Hemoptysis, Orthopnea, PND, (+) SOB, SOB on Exertion Gastrointestinal: denies: Abdominal Pain, Constipation, Diarrhea, Melena, Nausea , Rectal Bleeding, Vomiting Neurological: denies: Dizziness, Headache, Seizure, Syncope Labs: CBC, BMP 06/14/18 06:00 06/18/18 07:00 INR, PTT INR 2.46 (0.83-1.09) H 06/11/18 06:00 Problem List - Problems (1) Anemia Code(s): D64.9 - ANEMIA, UNSPECIFIED Qualifiers: (2) Atrial fibrillation with slow ventricular response Code(s): I48.91 - UNSPECIFIED ATRIAL FIBRILLATION (3) CHF exacerbation Code(s): I50.9 - HEART FAILURE, UNSPECIFIED Qualifiers: Heart failure type: diastolic Qualified Code(s): I50.33 - Acute on chronic diastolic (congestive) heart failure (4) Chronic anticoagulation Code(s): Z79.01 - SNUFF CONTAINER INSPECTOR (CURRENT) USE OF 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 (5) HTN (hypertension) Code(s): I10 - ESSENTIAL (PRIMARY) HYPERTENSION Qualifiers: (6) Aortic valve stenosis Code(s): I35.0 - NONRHEUMATIC AORTIC (VALVE) STENOSIS Qualifiers: Cardiac valve disease etiology: nonrheumatic Qualified Code(s): I35.0 - Nonrheumatic aortic (valve) stenosis (7) COPD (chronic obstructive pulmonary disease) Code(s): J44.9 - CHRONIC OBSTRUCTIVE PULMONARY DISEASE, UNSPECIFIED Qualifiers: (8) Diabetes mellitus Code(s): E11.9 - TYPE 2 DIABETES MELLITUS WITHOUT COMPLICATIONS Qualifiers: Diabetes mellitus type: type 2 Diabetes mellitus intermediate project manager insulin use: without intermediate project manager use Diabetes mellitus complication status: without complication Qualified Code(s): E11.9 - Type 2 diabetes mellitus without complications (9) Hypercholesterolemia Code(s): E78.00 - PURE HYPERCHOLESTEROLEMIA, UNSPECIFIED (10) Acute on chronic diastolic (congestive) heart failure Code(s): I50.33 - ACUTE ON CHRONIC DIASTOLIC (CONGESTIVE) HEART FAILURE (11) [id number] kidney injury Code(s): N17.9 - ACUTE KIDNEY FAILURE, UNSPECIFIED; N18.9 - CHRONIC KIDNEY DISEASE, UNSPECIFIED Qualifiers: Acute renal failure type: unspecified Chronic kidney disease stage: stage 2 (mild) Qualified Code(s): N17.9 - Acute kidney failure, unspecified; N18.2 - Chronic kidney disease, stage 2 (mild) (12) Epistaxis Code(s): R04.0 - EPISTAXIS (13) Diastolic dysfunction Code(s): I51.9 - HEART DISEASE, UNSPECIFIED (14) Mitral valve regurgitation Code(s): I34.0 - NONRHEUMATIC MITRAL (VALVE) INSUFFICIENCY Qualifiers: Cardiac valve disease etiology: nonrheumatic Qualified Code(s): I34.0 - Nonrheumatic mitral (valve) insufficiency (15) Tricuspid valve regurgitation Code(s): I07.1 - RHEUMATIC TRICUSPID INSUFFICIENCY Qualifiers: Cardiac valve disease etiology: nonrheumatic Qualified Code(s): I36.1 - Nonrheumatic tricuspid (valve) insufficiency Assessment/Plan 1. Persistent atrial fibrillation with slow ventricular response [id number] score of 7 on DOAC/Eliquis 2. Acute on chronic diastolic heart failure and moderate aortic stenosis 3. COPD 4. Type 2 DM 5. Hypertensive heart disease 6. Hypercholesterolemia 7. Chronic kidney disease 8. Anemia 9. Degenerative joint disease post right THR 10. CAD, angina pectoris 11. History of epistaxis PLAN: 1. Oral diuresis and Aldactone 50 mg QD with monitor renal function and electrolytes 2. Consider restarting Bystolic. Continue Lisinopril 40 mg QD, Eliquis 5 mg BID , Lipitor 20 mg QHS and Amlodipine 10 mg QD 3. Bronchodilator, oral steroids taper and O2 as needed 4. Deemed not a candidate for aortic valve surgery with recent valve evaluation 5. OOB to chair. ? SNF vs. home Further plans are to follow Armen Stewart MD
[2018-06-19] MEDS ORDERED: NEBIVOLOL 5 MG TABLET (FP) PO SCH (11:00)
[2018-06-19] MEDS: POLYETHYLENE GLYCOL 3350 119 GM BTL PO SCH (11:40)
[2018-06-19] MEDS ORDERED: PNEUMOC 13-VAL CONJ-DIP CRM/PF 0.5 ML DISP.SYRIN IM ONE (13:24)
[2018-06-19 17:58] VITALS: BP 150/74; PULSE 68; TEMP 97.9
== END 2018-06-19 19:02 | disposition home health service (06) | DRG 291 ==
LOC: JER 12:12 → JERBED 14:34 → J4S 06-10 23:55
PROVIDERS: ADMIT Internal Medicine; ATTEND Internal Medicine
DX: I13.0 Hypertensive heart and chronic kidney disease with heart failure and stage 1 through stage 4 chronic kidney disease, or unspecified chronic kidney disease (principal); I50.33 Acute on chronic diastolic (congestive) heart failure; J96.21 Acute and chronic respiratory failure with hypoxia; I48.1 Persistent atrial fibrillation; N39.0 Urinary tract infection, site not specified; N17.9 Acute kidney failure, unspecified; J44.1 Chronic obstructive pulmonary disease with (acute) exacerbation; I35.0 Nonrheumatic aortic (valve) stenosis; E78.5 Hyperlipidemia, unspecified; N18.2 Chronic kidney disease, stage 2 (mild); I25.119 Atherosclerotic heart disease of native coronary artery with unspecified angina pectoris; I34.0 Nonrheumatic mitral (valve) insufficiency; I36.1 Nonrheumatic tricuspid (valve) insufficiency; D64.9 Anemia, unspecified; E11.65 Type 2 diabetes mellitus with hyperglycemia; E87.6 Hypokalemia; I27.20 Pulmonary hypertension, unspecified
CPT/HCPCS: 36415; 36600; 71045-TC-FY; 71046-TC-FY; 80048; 80053; 81003; 81015; 82550; 82803; 82962; 83036; 83735; 83880; 84100; 84484; 85025; 85027; 85610; 85730; 87086; 87186; 90670; 93005; 93010; 94640; 94761; 97116-GP; 97161-GP; 99285-25

== ENCOUNTER 2018-08-29 12:11 | Inpatient (IN) | payer OTHER ==
--- NOTE | 2018-08-29 13:38 | PDOC ---
History of Present Illness - General Chief Complaint: Shortness of Breath Stated Complaint: Shortness of Breath Time Seen by Provider: 08/29/18 13:38 - History of Present Illness Initial Comments: 08/29/18 13:39 Ms. Zafar is an 82 yo female w/ pmh of non-obstructive CAD, CHF, MV regurgitation, AV stenosis, TV regurgitation, pulmonary HTN, Afib on eliquis, HTN, HLD, DM, COPD, asthma, and anemia recently admitted to this hospital 06/09- with volume overload who presents for evaluation of 4-5 day history of worsening shortness of breath. Patient reports she has taken her breathing treatments at home however to no effect. Patient reports a dry cough today only as well with subjective fevers. Patient denies any chest pain. Reports this feels similar to her prior admission for CHF exacerbation. The patient denies chest pain, headache and dizziness. Denies nausea, vomit, diarrhea and constipation. Denies dysuria, frequency, urgency and hematuria. Past History - Past Medical History Allergies/Adverse Reactions: Allergies Allergy/AdvReac Type Severity Reaction Status Date / Time ciprofloxacin [From Cipro] Allergy Verified 08/29/18 15:26 ciprofloxacin HCl Allergy Verified 08/29/18 15:26 [From Cipro] Home Medications: Ambulatory Orders Lisinopril [Zestril] 40 mg PO DAILY 12/29/16 Simvastatin 40 mg PO DAILY 12/29/16 Omeprazole Magnesium [Prilosec Otc] 40 mg PO DAILY 09/06/17 Sertraline HCl [Zoloft -] 50 mg PO DAILY 09/09/17 Apixaban [Eliquis -] 5 mg PO BID #0 tablet 09/27/17 Albuterol Sulfate [Proair Respiclick] 90 mcg IH Q4H PRN 02/27/18 Amlodipine Besylate [Norvasc -] 10 mg PO DAILY 30 Days #30 tablet 05/17/18 Ferrous Sulfate 325 mg PO BID 06/17/18 Salmeterol/Fluticasone [Advair 100Mcg/50Mcg -] 1 inh PO BID 06/17/18 Furosemide [Lasix -] 40 mg PO DAILY #15 tablet 06/18/18 Insulin (Levemir) [Levemir Vial] 17 units SQ 0700 #2 vial 06/18/18 Ipratropium/Albuterol Sulfate [Combivent Respimat Inhal [place]] 4 gm IH BID #1 aer.w.adap 06/18/18 Nebivolol [Bystolic -] 5 mg PO DAILY #14 tab 06/19/18 Albuterol 0.083% Nebulizer Jesika [Ventolin 0.083% Nebulizer Soln -] 1 neb NEB PRN PRN 08/29/18 Furosemide [Lasix -] 20 mg PO HS 08/29/18 Anemia: Yes Asthma: Yes Cancer: Yes (SKIN / FOREHEAD 2010) Cardiac Disorders: Yes (A-fib, CAD, Angina, TR, MR, AV stenosis) CVA: Yes COPD: Yes (Asthma, pulmonary HTN) CHF: Yes Dementia: No Diabetes: Yes GI Disorders: No Disorders: No HTN: Yes Hypercholesterolemia: Yes Liver Disease: No Psychiatric Problems: Yes (depresion, anxiety) Seizures: No Thyroid Disease: No - Surgical History Abdominal Surgery: No Appendectomy: No Cardiac Surgery: No Cholecystectomy: No Lung Surgery: No Neurologic Surgery: No Orthopedic Surgery: Yes ((R) HIP REPLACEMENT 2007, revision 2016) - Immunization History Immunization Up to Date: Yes - Suicide/Smoking/Psychosocial Hx Smoking Status: No Smoking History: Former smoker Have you smoked in the past 12 months: No Number of Cigarettes Smoked Daily: 0 If you are a former smoker, when did you quit?: many years ago Cigars Per Day: 0 Information on smoking cessation initiated: No Hx Alcohol Use: No Drug/Substance Use Hx: No Substance Use Type: None Hx Substance Use Treatment: No Review of Systems - Review of Systems Comments:: 08/29/18 13:39 GENERAL/CONSTITUTIONAL: +Subjective fever as reporte. No weakness. HEAD, EYES, EARS, NOSE AND THROAT: No change in vision. No ear pain or discharge. No sore throat. CARDIOVASCULAR: +Shortness of breath at baseline. No chest pain. RESPIRATORY: No cough, wheezing, or hemoptysis. GASTROINTESTINAL: No nausea, vomiting, diarrhea or constipation. GENITOURINARY: No dysuria, frequency, or change in urination. MUSCULOSKELETAL: No joint or muscle swelling or pain. No neck or back pain. SKIN: No rash NEUROLOGIC: No headache, vertigo, loss of consciousness, or change in strength/ sensation. ENDOCRINE: No increased thirst. No abnormal weight change HEMATOLOGIC/LYMPHATIC: No anemia, easy bleeding, or history of blood clots. ALLERGIC/IMMUNOLOGIC: No hives or skin allergy. *Physical Exam - Vital Signs Last Vital Signs Temp Pulse Resp BP Pulse Ox 100.2 F H 59 L 22 H 178/58 H 100 08/29/18 12:15 08/29/18 12:15 08/29/18 12:15 08/29/18 12:15 08/29/18 12:15 - Physical Exam Comments: 08/29/18 13:39 GENERAL: Awake, alert, and fully oriented, in no acute distress HEAD: No signs of trauma, normocephalic, atraumatic EYES: PERRLA, EOMI, sclera anicteric, conjunctiva clear ENT: Auricles normal inspection, hearing grossly normal, nares patent, oropharynx clear without exudates. Moist mucosa NECK: Normal ROM, supple, no lymphadenopathy, JVD, or masses LUNGS: +R sided crackles appreciated. On non-rebreather. Speaking full sentences. HEART: Regular rate and rhythm, normal S1 and S2, no murmurs, rubs or gallops, peripheral pulses normal and equal bilaterally. ABDOMEN: Soft, nontender, normoactive bowel sounds. No guarding, no rebound. No masses EXTREMITIES: +Pedal edema GUSTAVO. Normal inspection, Normal range of motion, no edema. No clubbing or cyanosis. NEUROLOGICAL: Cranial nerves II through XII grossly intact. Normal speech, normal gait, no focal sensorimotor deficits SKIN: Warm, Dry, normal turgor, no rashes or lesions noted. ED Treatment Course - LABORATORY CBC & Chemistry Diagram: 08/29/18 14:38 08/29/18 14:45 Medical Decision Making - Medical Decision Making 08/29/18 14:57 Ms. Zafar is an 82 yo female w/ pmh as described who presents for evaluation of symptoms concerning for hypervolemia vs. ACS vs. pulmonary process. Patient requiring supplemental oxygen on presentation, workup started with labs as below , EKG, CXR, and flu swab/blood cx given elevated temperature. 08/29/18 15:31 Patient noted to be fluid overloaded as below. Admitting patient for further cardiac and pulmonary evaluation. Lasix given for diuresis. 08/29/18 15:54 Patient also noted to have mild UTI. Given previous ABX no extra intervention required at this time. Laboratory Results - last 24 hr 08/29/18 08/29/18 08/29/18 14:38 14:45 14:51 WBC 8.4 RBC 3.40 L Hgb 9.4 L Hct 29.8 L MCV 87.6 MCH 27.7 MCHC 31.7 L RDW 15.6 Plt Count 217 D MPV 8.8 Absolute Neuts (auto) 6.6 Neutrophils % 79.1 Lymphocytes % 10.1 D Monocytes % 8.5 D Eosinophils % 1.8 D Basophils % 0.5 Nucleated RBC % 0 Sodium 143 Potassium 3.6 Chloride 104 Carbon Dioxide 33 H Anion Gap 7 L BUN 19 H Creatinine 0.9 Creat Clearance w eGFR 59.80 Random Glucose 110 H Calcium 8.4 L Total Bilirubin 0.3 AST 12 L ALT 9 L Alkaline Phosphatase 59 Creatine Kinase 38 Troponin I < 0.02 B-Natriuretic Peptide 4578.7 H Total Protein 6.2 L Albumin 3.4 Urine Color Yellow Urine Appearance Clear Urine pH 5.0 Ur Specific [place] 1.013 Urine Protein 1+ H Urine Glucose (UA) Negative Urine Ketones Negative Urine Blood Trace Urine Nitrite Negative Urine Bilirubin Negative Urine Urobilinogen 0.2 Ur Leukocyte Esterase 1+ H Urine WBC (Auto) 26 Urine RBC (Auto) 1 Urine Casts (Auto) 3 U Epithel Cells (Auto) 1.2 Urine Bacteria (Auto) 720.0 *DC/Admit/Observation/Transfer Diagnosis at time of Disposition: CHF exacerbation Qualifiers: Heart failure type: unspecified Qualified Code(s): I50.9 - Heart failure, unspecified Hypervolemia Qualifiers: Hypervolemia type: unspecified Qualified Code(s): E87.70 - Fluid overload, unspecified - Discharge Dispostion Decision to Admit order: Yes - Referrals Referrals: Arvind Ravi MD [Primary Care Provider] - - Patient Instructions - Post Discharge Activity
[2018-08-29] MEDS ORDERED: VANCOMYCIN 1 GM in D5W (PRE-DOCKED) 1,000 MG/250 ML IVPB ONE (14:34)
[2018-08-29] MEDS ORDERED: PIPERACILLIN/TAZOB 3.375 GM 3.375 GM in DEXTROSE 5%-WATER - 50 ML IVPB ONE (14:34)
[2018-08-29] MEDS ORDERED: ALBUTEROL SO4 2.5/IPRATROPIUM 0.5 INH SOL 3 ML VIAL.NEB. NEB ONE ×2 (14:36→14:56)
[2018-08-29] MEDS ORDERED: ACETAMINOPHEN 1000 MG/100 ML VIAL (NON FORMULARY) IVPB ONE (14:49)
[2018-08-29] MEDS ORDERED: ACETAMINOPHEN INJECTION 100 ML IVPB ONE (14:57)
[2018-08-29] MEDS ORDERED: VANCOMYCIN 1 GRAM (PRE-DOCKED) 1,000 MG/250 ML BAG IVPB ONE (14:57)
[2018-08-29] MEDS ORDERED: PIPERACILLIN/TAZOB 3.375 GM 3.375 GM/50 ML BAG IVPB ONE (14:57)
[2018-08-29 14:58] LABS: BASO % 0.5 % (0-2.0); EOS % 1.8 % (0-4.5); HEMATOCRIT 29.8 % (32.4-45.2); HEMOGLOBIN 9.4 GM/dL (10.7-15.3); LYMPH % 10.1 % (8-40); MCH 27.7 pg (25.7-33.7); MCHC 31.7 g/dl (32.0-36.0); MEAN CELL VOLUME 87.6 fl (80-96); MEAN PLT VOLUME 8.8 fl (7.5-11.1); MONO % 8.5 % (3.8-10.2); NEUT % 79.1 % (42.8-82.8); PLATELET COUNT 217 K/MM3 (134-434); RDW 15.6 % (11.6-15.6); WHITE BLOOD COUNT 8.4 K/mm3 (4.0-10.0)
--- NOTE | 2018-08-29 15:24 | PDOC ---
Attending Attestation - Resident Resident Name: Cole Norman - ED Attending Attestation I have performed the following: I have examined & evaluated the patient, The case was reviewed & discussed with the resident, I agree w/resident's findings & plan, Exceptions are as noted - HPI HPI: 08/29/18 15:12 The patient is a 82 year old female with a significant past medical history of diastolic CHF, COPD, HTN, HLD, asthma, DM, and A Fib (on Eliquis), who presents to the emergency department with 4 days of shortness of breath. The patient states she endorses cough and subjective fevers. She denies any other symptoms. The patient states she has taken her breathing treatments at home with no relief. She states her symptoms feel similar to her prior CHF exacerbations. The patient denies chest pain, headache, dizziness, chills, nausea, vomit, diarrhea or constipation. The patient denies dysuria, frequency, urgency or hematuria. Allergies: ciprofloxacin and ciprofloxacin HCl Past surgical history:Hip Replacement ( 2007, redone 2015) Social history: Former smoker. No alcohol use. PCP: Dr. Ravi Co Founder And Cto:Dr. Cline - Physicial Exam PE: 08/29/18 15:24 GENERAL: Awake, alert, and fully oriented, in no acute distress. HEAD: No signs of trauma EYES: PERRLA, EOMI, sclera anicteric, conjunctiva clear ENT: Auricles normal inspection, hearing grossly normal, nares patent, oropharynx clear without exudates. Moist mucosa NECK: Nontender, no stepoffs, Normal ROM, supple, no lymphadenopathy, JVD, or masses LUNGS: + bibasilar rales HEART: Regular rate and rhythm, normal S1 and S2, no murmurs, rubs or gallops ABDOMEN: Soft, nontender, normoactive bowel sounds. No guarding, no rebound. No masses EXTREMITIES: Normal range of motion, no edema. No clubbing or cyanosis. No cords, erythema, or tenderness NEUROLOGICAL: Cranial nerves II through XII intact. 5/5 strength and sensation in all extremities, Normal speech, normal gait, normal cerebellar function SKIN: Warm, Dry, normal turgor, no rashes or lesions noted. - Medical Decision Making 08/29/18 15:24 82 F with SOB, fever. Clinically suspicious for CHF exacerbation. Will also evaluate for PNA given fever. - Labs, cultures, trop, BNP - CXR - Lasix - Abx
[2018-08-29 15:26] LABS: ALBUMIN 3.4 g/dl (3.4-5.0); ALK PHOS 59 U/L (45-117); ANION GAP 7 MMOL/L (8-16); BILIRUBIN,TOTAL 0.3 mg/dL (0.2-1); BLOOD UREA NITROGEN 19 mg/dL (7-18); CALCIUM 8.4 mg/dL (8.5-10.1); CHLORIDE 104 mmol/L (98-107); CO2 33 mmol/L (21-32); CREATININE 0.9 mg/dL (0.55-1.3); GLUCOSE,RANDOM 110 mg/dL (74-106); N-TERMINAL BNP 4578.7 pg/ml (5-450); POTASSIUM 3.6 mmol/L (3.5-5.1); SGOT/AST 12 U/L (15-37); SGPT/ALT 9 U/L (13-61); SODIUM 143 mmol/L (136-145); TOT PROT 6.2 g/dl (6.4-8.2)
[2018-08-29] MEDS ORDERED: FUROSEMIDE 40 MG/4 ML INJECTABLE VIAL IVPUSH ONE ×2 (15:30→17:30)
[2018-08-29 15:32] LABS: EPI CELLS 1.2 /HPF (0-5); URINE APPEARANCE CLEAR; URINE BILIRUBIN NEGATIVE (NEGATIVE); URINE CASTS 3 /hpf (0-8); URINE COLOR YELLOW; URINE GLUCOSE (UA) NEGATIVE (NEGATIVE); URINE KETONE NEGATIVE (NEGATIVE); URINE LEUK ESTERASE 1+ (NEGATIVE); URINE NITRITE NEGATIVE (NEGATIVE); URINE PROTEIN 1+ (NEGATIVE); URINE RBC 1 /hpf (0-4); URINE UROBILINOGEN 0.2 mg/dL (0.2-1.0); URINE WBC 26 /hpf (0-5)
--- NOTE | 2018-08-29 17:13 | PN ---
Teaching Attending Note Name of Resident: Russell Sandoval ATTENDING PHYSICIAN STATEMENT I saw and evaluated the patient. I reviewed the resident's note and discussed the case with the resident. I agree with the resident's findings and plan as documented. SUBJECTIVE:82yo F with PMH systolic CHF, afib on eliquis, DM, COPD, pulmonary HTN presented to the ER with progressively worsening SOB and non productive cough x3 days. assoc with chest heaviness with deep inspiration and orthopnea. has been requiring more home O2 due to dyspnea. she has had 2 recent hospitalizations for acute CHF exacerbation where here lasix was adjusted on those admission. states she is compliant with medications but unable to weigh herself daily because of hip pain. denies fever, chills, N/V/C/D, dysuria or urinary frequency last stress test and cath was 10+years ago OBJECTIVE: Last Vital Signs Temp Pulse Resp BP Pulse Ox 100.2 F H 60 32 H 165/84 88 L 08/29/18 12:15 08/29/18 14:00 08/29/18 14:00 08/29/18 14:00 08/29/18 14:20 Intake & Output 08/26/18 08/27/18 08/28/18 08/29/18 23:59 23:59 23:59 23:59 Weight 160 lb General NAD CV S1 S2 +murmur Lungs B/L crackles mid lung field to base Abdomen soft NT/ND obese Extremities 1+ pitting edema ASSESSMENT AND PLAN: 82yo F with PMH systolic CHF, afib on eliquis, DM, COPD on 2L NC, pulmonary HTN presented to the ER with progressively worsening SOB and non productive cough x3 days 1. Acute on chronic systolic CHF exacerbation- tele admission. received only lasix 40mg IVP, will give and additional 40mg now and then start at 60mg BID. may be a good candidate for entresto, will consult cardiology and discuss on chf optimization. repeat echo, last one here is 02/2018. monitor electrolytes, daily weights. bedside commode 2. +UA- does not have symptoms. received vanco/zosyn in the ER. will hold further abx treatment at this time. f/u UCx 3. Acute on chronic hypoxic respiratory failure- typically on 2L NC but requiring 4L NC to maintain spO2 >88%. likely due to CHF exacerbation. will diuresis aggressively. titrate down oxygen requirements as tolerated 4. afib on eliquis- rate controlled. cont nebivolol/elquis 5. DM- cont home dose of levemir, iss and bgm 6. DVT ppx- eliquis 7. spoke with daughter present at bedside. all questions answered, verbalixed understanding and agreement with plan
--- NOTE | 2018-08-29 17:14 | HP ---
CHIEF COMPLAINT: SOB PCP: Dr. Dickens Cards: Dr. Pat Winters: Dr. Setphen Nephro: Dr. Ely Endo: Dr. Toney HISTORY OF PRESENT ILLNESS: The patient is an 82 yo f w/ PMH Afib on AC, CHF, DM, Pulm HTN, COPD, asthma who came to the ED c/o a 3 day history of worsening SOB. The patient states that she has been feeling SOB since her last admission to [facility] in May. This SOB has been getting progressively worse, but became especially bad 3 days ago. She is on 3L O2 chronically PRN for her COPD, but has been having to use it all of the time over the past 3 days. She has attempted to use her home nebulizers, which did not help. The patient associates these symptoms with generalized weakness, fatigue and tremors over the same 3 day time period. Patient denies chest pain, abdominal pain, dysuria, fevers, chills. ER course was notable for: (1) Vancomycin/zosyn (2) CXR showing congestion (3) BNP 4578 Recent Travel: none PAST MEDICAL HISTORY: see HPI PAST SURGICAL HISTORY: total hip revision 3 years ago Social History: Smoking: denies Alcohol: denies Drugs: denies Family History: non-contributory Allergies ciprofloxacin [From Cipro] Allergy (Verified 08/29/18 15:26) ciprofloxacin HCl [From Cipro] Allergy (Verified 08/29/18 15:26) HOME MEDICATIONS: Home Medications Medication Instructions Recorded Lisinopril [Zestril] 40 mg PO DAILY 12/29/16 Simvastatin 40 mg PO DAILY 12/29/16 Omeprazole Magnesium [Prilosec Otc] 40 mg PO DAILY 09/06/17 Sertraline HCl [Zoloft -] 50 mg PO DAILY 09/09/17 Apixaban [Eliquis -] 5 mg PO BID #0 tablet 09/27/17 Albuterol Sulfate [Proair 90 mcg IH Q4H PRN 02/27/18 Respiclick] Amlodipine Besylate [Norvasc -] 10 mg PO DAILY 30 Days #30 tablet 05/17/18 Ferrous Sulfate 325 mg PO BID 06/17/18 Salmeterol/Fluticasone [Advair 1 inh PO BID 06/17/18 100Mcg/50Mcg -] Furosemide [Lasix -] 40 mg PO DAILY #15 tablet 06/18/18 Insulin (Levemir) [Levemir Vial] 17 units SQ 0700 #2 vial 06/18/18 Ipratropium/Albuterol Sulfate 4 gm IH BID #1 aer.w.adap 06/18/18 [Combivent Respimat Inhal [place]] Nebivolol [Bystolic -] 5 mg PO DAILY #14 tab 06/19/18 Albuterol 0.083% Nebulizer Jesika 1 neb NEB PRN PRN 08/29/18 [Ventolin 0.083% Nebulizer Soln -] Furosemide [Lasix -] 20 mg PO HS 08/29/18 REVIEW OF SYSTEMS CONSTITUTIONAL: Absent: fever, chills, diaphoresis, loss of appetite, weight change HEENT: Absent: rhinorrhea, nasal congestion, throat pain, throat swelling, difficulty swallowing, mouth swelling, ear pain, eye pain, visual changes CARDIOVASCULAR: Absent: chest pain, syncope, palpitations, irregular heart rate, lightheadedness , peripheral edema RESPIRATORY: Absent: cough, wheezing, stridor, hemoptysis GASTROINTESTINAL: Absent: abdominal pain, abdominal distension, nausea, vomiting, diarrhea, constipation, melena, hematochezia GENITOURINARY: Absent: dysuria, frequency, urgency, hesitancy, hematuria, flank pain, genital pain MUSCULOSKELETAL: Absent: myalgia, arthralgia, joint swelling, back pain, neck pain SKIN: Absent: rash, itching, pallor HEMATOLOGIC/IMMUNOLOGIC: Absent: easy bleeding, easy bruising, lymphadenopathy, frequent infections ENDOCRINE: Absent: unexplained weight gain, unexplained weight loss, heat intolerance, cold intolerance NEUROLOGIC: Absent: headache, focal weakness or paresthesias, dizziness, unsteady gait, seizure, mental status changes, bladder or bowel incontinence PSYCHIATRIC: Absent: anxiety, depression, suicidal or homicidal ideation, hallucinations. PHYSICAL EXAMINATION Vital Signs - 24 hr 08/29/18 08/29/18 08/29/18 12:15 14:00 14:20 Temperature 100.2 F H Pulse Rate 59 L Pulse Rate [ 60 Apical] Respiratory 22 H 32 H Rate Blood Pressure 178/58 H Blood Pressure 165/84 [Left Arm] O2 Sat by Pulse 100 82 L 88 L Oximetry (%) GENERAL: Awake, alert, and fully oriented, in no acute distress. HEAD: Normal with no signs of trauma. NECK: Normal range of motion, supple without lymphadenopathy, JVD, or masses. LUNGS: Crackles heard at the apices and in the mud ling chin b/l. Decrease breath sounds at the bases b/l HEART: Regular rate and rhythm, normal S1 and S2. 3/5 systolic ejection murmur heard at the RUSB w/ radiation to the carotids ABDOMEN: Soft, nontender, not distended, normoactive bowel sounds, no guarding, no rebound, no masses. No hepatomegaly or splenomegaly. LOWER EXTREMITIES: 2+ pulses, warm, well-perfused. No calf tenderness. 1+ peripheral edema. NEUROLOGICAL: Cranial nerves II-X intact. Normal speech. PSYCHIATRIC: Cooperative. Good eye contact. Appropriate mood and affect. SKIN: Warm, dry, normal turgor, no rashes or lesions noted, normal capillary refill. Laboratory Results - last 24 hr 08/29/18 08/29/18 08/29/18 14:38 14:45 14:51 WBC 8.4 RBC 3.40 L Hgb 9.4 L Hct 29.8 L MCV 87.6 MCH 27.7 MCHC 31.7 L RDW 15.6 Plt Count 217 D MPV 8.8 Absolute Neuts (auto) 6.6 Neutrophils % 79.1 Lymphocytes % 10.1 D Monocytes % 8.5 D Eosinophils % 1.8 D Basophils % 0.5 Nucleated RBC % 0 Sodium 143 Potassium 3.6 Chloride 104 Carbon Dioxide 33 H Anion Gap 7 L BUN 19 H Creatinine 0.9 Creat Clearance w eGFR 59.80 Random Glucose 110 H Calcium 8.4 L Total Bilirubin 0.3 AST 12 L ALT 9 L Alkaline Phosphatase 59 Creatine Kinase 38 Troponin I < 0.02 B-Natriuretic Peptide 4578.7 H Total Protein 6.2 L Albumin 3.4 Urine Color Yellow Urine Appearance Clear Urine pH 5.0 Ur Specific [place] 1.013 Urine Protein 1+ H Urine Glucose (UA) Negative Urine Ketones Negative Urine Blood Trace Urine Nitrite Negative Urine Bilirubin Negative Urine Urobilinogen 0.2 Ur Leukocyte Esterase 1+ H Urine WBC (Auto) 26 Urine RBC (Auto) 1 Urine Casts (Auto) 3 U Epithel Cells (Auto) 1.2 Urine Bacteria (Auto) 720.0 Influenza A (Rapid) Influenza B (Rapid) 08/29/18 15:05 WBC RBC Hgb Hct MCV MCH MCHC RDW Plt Count MPV Absolute Neuts (auto) Neutrophils % Lymphocytes % Monocytes % Eosinophils % Basophils % Nucleated RBC % Sodium Potassium Chloride Carbon Dioxide Anion Gap BUN Creatinine Creat Clearance w eGFR Random Glucose Calcium Total Bilirubin AST ALT Alkaline Phosphatase Creatine Kinase Troponin I B-Natriuretic Peptide Total Protein Albumin Urine Color Urine Appearance Urine pH Ur Specific [place] Urine Protein Urine Glucose (UA) Urine Ketones Urine Blood Urine Nitrite Urine Bilirubin Urine Urobilinogen Ur Leukocyte Esterase Urine WBC (Auto) Urine RBC (Auto) Urine Casts (Auto) U Epithel Cells (Auto) Urine Bacteria (Auto) Influenza A (Rapid) Negative Influenza B (Rapid) Negative ASSESSMENT/PLAN: The patient is an 82 yo f w/ PMH Afib on AC, CHF, DM, Pulm HTN, COPD, asthma who came to the ED c/o a 3 day history of worsening SOB. Patient being observed on tele for acute CHF exacerbation #SOB, generalized weakness and fatigue 2/2 acute CHF exacerbation -s/p 40mg lasix in ED -will order another 40mg Lasix IVP now -Lasix 60mg BID starting tomorrow -Daily weights (dry weight 165) -I&O -fluid restriction 1L -cardiology consult: Dr. Stewart #DM -BGM ACHS -ISS ACHS #Afib -c/w home eliquis 5mg BID #COPD -c/w home inhalers #FEN -no fluids indicated -lytes WNL -sodium controlled diet #prophy -on eliquis at home #dispo -observe on tele for diuresis Visit type - Emergency Visit Emergency Visit: Yes ED Registration Date: 08/29/18 Care time: The patient presented to the Emergency Department on the above date and was hospitalized for further evaluation of their emergent condition. - New Patient This patient is new to me today: Yes Date on this admission: 08/29/18 - Critical Care Critical Care patient: No
[2018-08-29] MEDS ORDERED: FUROSEMIDE 40 MG/4 ML INJECTABLE VIAL ONE (17:44)
[2018-08-29] MEDS: REPAGLINIDE 1 MG TABLET PO SCH (20:31)
[2018-08-29] MEDS ORDERED: APIXABAN 5 MG TABLET PO ONE ×2 (22:38→22:39)
[2018-08-29] MEDS ORDERED: FERROUS SO4 325 MG TABLET (FP) ONE (22:38)
[2018-08-29] MEDS: INSULIN SLIDING SCALE (NOVOLOG) 1 VIAL SQ SCH (22:53)
[2018-08-29] MEDS: FERROUS SO4 325 MG TABLET (FP) PO SCH (22:53)
[2018-08-29] MEDS: APIXABAN 5 MG TABLET PO SCH (22:53)
[2018-08-29] MEDS: FLUTICASONE/SALMETEROL 100 MCG/50 MCG DISKUS IH SCH (23:06)
[2018-08-29] MEDS ORDERED: IPRATROPIUM BR 0.02% 0.5 MG/2.5 ML VIAL.NEB. NEB ONE (23:16)
[2018-08-29] MEDS ORDERED: ALBUTEROL SO4 0.083% IH SOL 2.5 MG/3 ML VIAL.NEB. NEB ONE (23:16)
[2018-08-29] MEDS ORDERED: IBUPROFEN 600 MG TABLET (FP) PO ONE (23:35)
[2018-08-30] MEDS ORDERED: ALBUTEROL SO4 2.5/IPRATROPIUM 0.5 INH SOL 3 ML VIAL.NEB. NEB ONE (01:30)
[2018-08-30 06:23] LABS: HEMATOCRIT 30.6 % (32.4-45.2); HEMOGLOBIN 9.8 GM/dL (10.7-15.3); MCHC 31.9 g/dl (32.0-36.0); MEAN CELL VOLUME 87.7 fl (80-96); MEAN PLT VOLUME 9.2 fl (7.5-11.1); PLATELET COUNT 207 K/MM3 (134-434); RBC 3.49 M/mm3 (3.60-5.2); RDW 15.6 % (11.6-15.6); WHITE BLOOD COUNT 9.1 K/mm3 (4.0-10.0)
[2018-08-30] MEDS: FUROSEMIDE 40 MG/4 ML INJECTABLE VIAL IVPUSH SCH ×2 (06:35→13:32)
[2018-08-30 06:51] LABS: INR 1.8 (0.83-1.09); PROTHROMBIN TIME (PATIENT) 21.4 SEC (9.7-13.0)
[2018-08-30 06:54] LABS: ACTIVATED PTT 38.3 SECONDS (25.2-36.5)
[2018-08-30] MEDS: INSULIN SLIDING SCALE (NOVOLOG) 1 VIAL SQ SCH ×4 (06:58→22:00)
[2018-08-30 07:36] LABS: BLOOD UREA NITROGEN 18 mg/dL (7-18); CREATININE 1.1 mg/dL (0.55-1.3); GLUCOSE,RANDOM 92 mg/dL (74-106); SODIUM 141 mmol/L (136-145)
[2018-08-30 07:37] LABS: ALBUMIN 3.4 g/dl (3.4-5.0); ALK PHOS 56 U/L (45-117); ANION GAP 5 MMOL/L (8-16); BILIRUBIN,TOTAL 0.4 mg/dL (0.2-1); CALCIUM 8.6 mg/dL (8.5-10.1); CHLORIDE 101 mmol/L (98-107); CO2 35 mmol/L (21-32); PHOSPHOROUS 4.3 mg/dL (2.5-4.9); POTASSIUM 3.4 mmol/L (3.5-5.1); SGOT/AST 11 U/L (15-37); SGPT/ALT 10 U/L (13-61); TOT PROT 6.2 g/dl (6.4-8.2)
[2018-08-30] MEDS: REPAGLINIDE 1 MG TABLET PO SCH ×3 (07:41→17:52)
[2018-08-30] MEDS ORDERED: POTASSIUM CHLORIDE ORAL LIQUID 20 MEQ/15 ML PO ONE (08:35)
--- NOTE | 2018-08-30 08:40 | PN ---
Progress Note (short form) - Note Progress Note: states breathing is better this morning. denies CP, SOB, fever, chills, cough, N /V/C/D reported by RN that pt was destaurating on NC to low 80's and placed on nonrebreather Current Medications Generic Name Dose Route Start Last Admin Trade Name Freq PRN Reason Stop Dose Admin Acetaminophen 650 mg 08/30/18 08:35 Tylenol - PO Q6H PRN pain Albuterol Sulfate 1 amp 08/29/18 18:56 Ventolin 0.083% Nebulizer Soln - NEB Q6H PRN SHORT OF BREATH/WHEEZING Amlodipine Besylate 10 mg 08/30/18 10:00 Norvasc - PO DAILY PK Apixaban 5 mg 08/29/18 22:00 08/29/18 22:53 Eliquis - PO 5 mg BID PK Administration Atorvastatin Calcium 20 mg 08/30/18 22:00 Lipitor - PO HS PK Ferrous Sulfate 325 mg 08/29/18 22:00 08/29/18 22:53 Feosol - PO 325 mg BID PK Administration Furosemide 60 mg 08/30/18 06:00 08/30/18 06:35 Lasix Injection - IVPUSH 60 mg BID@0600,1400 PK Administration Insulin Aspart 1 vial 08/29/18 22:00 08/30/18 06:58 Novolog Vial Sliding Scale - SQ Not Given ACHS [facility] Protocol Lisinopril 40 mg 08/30/18 10:00 Prinivil PO DAILY [facility] Nebivolol 5 mg 08/30/18 10:00 Bystolic - PO DAILY [facility] Pantoprazole Sodium 40 mg 08/30/18 10:00 Protonix - PO DAILY [facility] Potassium Chloride 40 meq 08/30/18 08:35 Potassium Chloride Oral Liquid PO 08/30/18 08:36 ONCE ONE Repaglinide 1 mg 08/29/18 19:15 08/30/18 07:41 Prandin - PO 1 mg TIDAC PK Administration Fluticasone/Salmeterol 1 puff 08/29/18 22:00 08/29/18 23:06 Advair 100mcg/50mcg - IH 1 puff BID [facility] Administration Sertraline HCl 50 mg 08/30/18 10:00 Zoloft - PO DAILY [facility] Last Vital Signs Temp Pulse Resp BP Pulse Ox 97.8 F 68 28 H 163/71 100 08/30/18 01:56 08/30/18 07:00 08/30/18 07:00 08/30/18 07:00 08/30/18 07:00 Intake & Output 08/27/18 08/28/18 08/29/18 08/30/18 23:59 23:59 23:59 23:59 Intake Total 120 Balance 120 Weight 160 lb 169 lb 1 oz General NAD CV S1 S2 +murmur Lungs B/L crackles mid lung field to base, scattered wheezing Abdomen soft NT/ND obese Extremities 1+ pitting edema CBCD WBC 9.1 K/mm3 (4.0-10.0) 08/30/18 05:30 RBC 3.49 M/mm3 (3.60-5.2) L 08/30/18 05:30 Hgb 9.8 GM/dL (10.7-15.3) L 08/30/18 05:30 Hct 30.6 % (32.4-45.2) L 08/30/18 05:30 MCV 87.7 fl (80-96) 08/30/18 05:30 MCHC 31.9 g/dl (32.0-36.0) L 08/30/18 05:30 RDW 15.6 % (11.6-15.6) 08/30/18 05:30 Plt Count 207 K/MM3 (134-434) 08/30/18 05:30 MPV 9.2 fl (7.5-11.1) 08/30/18 05:30 CMP Sodium 141 mmol/L (136-145) 08/30/18 05:30 Potassium 3.4 mmol/L (3.5-5.1) L 08/30/18 05:30 Chloride 101 mmol/L (98-107) 08/30/18 05:30 Carbon Dioxide 35 mmol/L (21-32) H 08/30/18 05:30 Anion Gap 5 MMOL/L (8-16) L 08/30/18 05:30 BUN 18 mg/dL (7-18) 08/30/18 05:30 Creatinine 1.1 mg/dL (0.55-1.3) 08/30/18 05:30 Creat Clearance w eGFR 47.43 (>60) 08/30/18 05:30 Calcium 8.6 mg/dL (8.5-10.1) 08/30/18 05:30 Total Bilirubin 0.4 mg/dL (0.2-1) 08/30/18 05:30 AST 11 U/L (15-37) L 08/30/18 05:30 ALT 10 U/L (13-61) L 08/30/18 05:30 Alkaline Phosphatase 56 U/L (45-117) 08/30/18 05:30 Total Protein 6.2 g/dl (6.4-8.2) L 08/30/18 05:30 Albumin 3.4 g/dl (3.4-5.0) 08/30/18 05:30 ASSESSMENT AND PLAN: 82yo F with PMH systolic CHF, afib on eliquis, DM, COPD on 2L NC, pulmonary HTN presented to the ER with progressively worsening SOB and non productive cough x3 days 1. Acute on chronic systolic CHF exacerbation- remains volume overloaded. will need actual weight this AM to monitor for improvement. cont lasix 60mg IV BID, will d/w cardio about entresto and optimizing heart failure regimen. repeat echo. monitor electrolytes, daily weights. = 2. +UA- does not have symptoms. received vanco/zosyn in the ER. will hold further abx treatment at this time. f/u UCx 3. Acute on chronic hypoxic respiratory failure-due to volume overload. desaturated to low 80's currently 100% on non rebreather. will titrate down o2 as tolerated. breathing treatment for wheezing apprecaited on exam. notified resp therapist 4. HTN- above goal. will increase lisinopril. consider imdur if persists 5. afib on eliquis- rate controlled. cont nebivolol/elquis 6. DM- cont home dose of levemir, iss and bgm 7. DVT ppx- eliquis Visit type - Emergency Visit Emergency Visit: Yes ED Registration Date: 08/29/18 Care time: The patient presented to the Emergency Department on the above date and was hospitalized for further evaluation of their emergent condition. - New Patient This patient is new to me today: No - Critical Care Critical Care patient: No - Discharge Referral Referred to [facility] Med P.C.: No
[2018-08-30] MEDS: ALBUTEROL SO4 0.083% IH SOL 2.5 MG/3 ML VIAL.NEB. NEB PRN ×4 (08:54→21:24)
[2018-08-30] MEDS: FERROUS SO4 325 MG TABLET (FP) PO SCH ×2 (09:37→21:02)
[2018-08-30] MEDS: SERTRALINE HCL 50 MG TABLET (FP) PO SCH (09:37)
[2018-08-30] MEDS: PANTOPRAZOLE 40 MG TABLET (FP) PO SCH (09:37)
[2018-08-30] MEDS: amLODIPine BESYLATE 10 MG TABLET (FP) PO SCH (09:37)
[2018-08-30] MEDS: LISINOPRIL 20 MG TABLET (FP) PO SCH (09:37)
[2018-08-30] MEDS: APIXABAN 5 MG TABLET PO SCH ×2 (09:37→21:02)
[2018-08-30] MEDS ORDERED: PT OWN MED DRAWER 7, Y5N ONE (11:37)
[2018-08-30] MEDS: FLUTICASONE/SALMETEROL 100 MCG/50 MCG DISKUS IH SCH ×2 (11:40→23:35)
[2018-08-30] MEDS: NEBIVOLOL 5 MG TABLET (FP) PO SCH (11:43)
[2018-08-30] MEDS ORDERED: LORazepam 0.5 MG TABLET PO PRN ×2 (15:22→15:26)
--- NOTE | 2018-08-30 19:35 | CON.CARD ---
Consult Consult Specialty:: cardiology Reason for Consultation:: shortness of breath - History of Present Illness Chief Complaint: Pt A&Ox3; tachypneic; SOB; anxious History of Present Illness: The patient is a 82 year old female with a significant past medical history of diastolic CHF, COPD, HTN, HLD, asthma, DM, and A Fib (on Eliquis), who presents to the emergency department with 4 days of shortness of breath. The patient states she endorses cough and subjective fevers. She denies any other symptoms. The patient states she has taken her breathing treatments at home with no relief. She states her symptoms feel similar to her prior CHF exacerbations. The patient denies chest pain, headache, dizziness, chills, nausea, vomit, diarrhea or constipation. The patient denies dysuria, frequency, urgency or hematuria. Allergies: ciprofloxacin and ciprofloxacin HCl Past surgical history:Hip Replacement ( 2007, redone 2015) Social history: Former smoker. No alcohol use. PCP: Dr. Ravi Flat Lock Machine Operator:Dr. Cline - History Source History Provided By: Patient, Medical Record Limitations to Obtaining History: No Limitations - Past Medical History Cardio/Vascular: Yes: AFIB, Aortic Stenosis, CAD, CHF, HTN, Hyperlipdemia, Mitral Insufficiency, Murmur, Pulmonary Hypertension Pulmonary: Yes: Asthma, COPD, O2 Dependent, Pneumonia Reproductive: Yes: Postmenopausal ...: No Heme/Onc: Yes: Anemia Psych: Yes: Anxiety Musculoskeletal: Yes: Osteoarthritis (had hip and knee replacement, still with some healing problems ), Other Endocrine: Yes: Diabetes Mellitus, Other (Thyroid nodule) - Past Surgical History Past Surgical History: Yes: Joint Replacement - Alcohol/Substance Use Hx Alcohol Use: No History of Substance Use: reports: None - Smoking History Smoking history: Former smoker Have you smoked in the past 12 months: No Aproximately how many cigarettes per day: 0 If you are a former smoker, when did you quit?: many years ago - Social History Usual Living Arrangement: Alone ADL: Support Services History of Recent Travel: No Home Medications - Allergies Allergies/Adverse Reactions: Allergies Allergy/AdvReac Type Severity Reaction Status Date / Time ciprofloxacin [From Cipro] Allergy Verified 08/29/18 15:26 ciprofloxacin HCl Allergy Verified 08/29/18 15:26 [From Cipro] - Home Medications Home Medications: Ambulatory Orders Lisinopril [Zestril] 40 mg PO DAILY 12/29/16 Simvastatin 40 mg PO DAILY 12/29/16 Omeprazole Magnesium [Prilosec Otc] 40 mg PO DAILY 09/06/17 Sertraline HCl [Zoloft -] 50 mg PO DAILY 09/09/17 Apixaban [Eliquis -] 5 mg PO BID #0 tablet 09/27/17 Albuterol Sulfate [Proair Respiclick] 90 mcg IH Q4H PRN 02/27/18 Amlodipine Besylate [Norvasc -] 10 mg PO DAILY 30 Days #30 tablet 05/17/18 Ferrous Sulfate 325 mg PO BID 06/17/18 Salmeterol/Fluticasone [Advair 100Mcg/50Mcg -] 1 inh PO BID 06/17/18 Furosemide [Lasix -] 40 mg PO DAILY #15 tablet 06/18/18 Insulin (Levemir) [Levemir Vial] 17 units SQ 0700 #2 vial 06/18/18 Nebivolol [Bystolic -] 5 mg PO DAILY #14 tab 06/19/18 Albuterol 0.083% Nebulizer Jesika [Ventolin 0.083% Nebulizer Soln -] 1 neb NEB PRN PRN 08/29/18 Furosemide [Lasix -] 20 mg PO HS 08/29/18 Repaglinide [Prandin -] 1 mg PO TID 08/29/18 Family Disease History - Family Disease History Family Disease History: Diabetes: Mother, Heart Disease: Father, Other: Brother (HTN, ), Daughter (alive and well) Review of Systems - Review of Systems Constitutional: reports: Weakness Eyes: reports: No Symptoms HENT: reports: Nasal Congestion Neck: reports: No Symptoms Cardiovascular: reports: Shortness of Breath Respiratory: reports: Exercise Intolerance, SOB, Wheezing. denies: Cough Gastrointestinal: reports: Bloating Genitourinary: reports: No Symptoms Breasts: reports: No Symptoms Reported Musculoskeletal: reports: Muscle Weakness Integumentary: reports: No Symptoms Neurological: reports: No Symptoms Endocrine: reports: No Symptoms Hematology/Lymphatic: reports: No Symptoms Psychiatric: reports: Altered Sleep Pattern, Anxiety - Risk Factors Known Risk Factors: Yes: Age, Physical Inactivity Vital Signs: Vital Signs Temperature 98.4 F 08/30/18 18:12 Pulse Rate 79 08/30/18 18:12 Respiratory Rate 24 H 08/30/18 18:12 Blood Pressure 178/79 H 08/30/18 18:12 O2 Sat by Pulse Oximetry (%) 100 08/30/18 11:19 Constitutional: Yes: Anxious Eyes: Yes: WNL HENT: Yes: WNL Neck: Yes: WNL Respiratory: Yes: SOB, Tachypnea Gastrointestinal: Yes: Hypoactive Bowel Sounds Renal/: No: Anuria Cardiovascular: Yes: Pulse Irregular JVD: Yes Carotid Bruit: No PMI: Non-Displaced Heart Sounds: Yes: S1 (varies in intensity), S2 Murmur: Yes: Systolic Murmur, Grade 3 Musculoskeletal: Yes: Muscle Weakness Extremities: Yes: Cool Edema: No Peripheral Pulses WNL: Yes Integumentary: Yes: WNL Neurological: Yes: Alert, Oriented, Weakness Psychiatric: Yes: Alert, Oriented - Other Data Labs, Other Data: CBC, BMP 08/30/18 05:30 08/30/18 05:30 INR, PTT INR 1.80 (0.83-1.09) H 08/30/18 05:30 Abnormal Lab Results 08/31/18 05:30 Carbon Dioxide 36 H Anion Gap 4 L Random Glucose 120 H Calcium 8.3 L Echo: Report Reviewed Ejection Fraction %: LVEF > or = 40 % Imaging - Results Chest X-ray: Image Reviewed (extensive congestive changes) EKG: Image Reviewed (AF) Other: Image Reviewed (telemetry: AF) Problem List - Problems (1) Hypervolemia Code(s): E87.70 - FLUID OVERLOAD, UNSPECIFIED Qualifiers: Hypervolemia type: unspecified Qualified Code(s): E87.70 - Fluid overload, unspecified (2) Acute on chronic diastolic (congestive) heart failure Assessment/Plan: Markedly dyspneic. +JVD Significant vascular congestion on CXR. ON furosemide IVP bid; on ACEI and Beta yessenia F/u BUn/Cr, electrolytes, Is and Os, daily weight. Code(s): I50.33 - ACUTE ON CHRONIC DIASTOLIC (CONGESTIVE) HEART FAILURE (3) Acute on chronic respiratory failure with hypoxemia Code(s): J96.21 - ACUTE AND CHRONIC RESPIRATORY FAILURE WITH HYPOXIA (4) Atrial fibrillation Assessment/Plan: On Bystolic for HR control. On apixaban for anticoagulation. Code(s): I48.91 - UNSPECIFIED ATRIAL FIBRILLATION Qualifiers: Atrial fibrillation type: persistent Qualified Code(s): I48.1 - Persistent atrial fibrillation (5) Moderate to severe aortic stenosis Assessment/Plan: F?u evaluation of significant aortic stenosis with episode of CHF. Code(s): I35.0 - NONRHEUMATIC AORTIC (VALVE) STENOSIS (6) HTN (hypertension) Assessment/Plan: Treatment of HTN with pt's severe aoric stenosis is difficult. She is on Bystolic for AF and HTN (though problematic using beta blockers with ). On ACEI and diuretics (furosedmide), which may be the beswt option presently. Consider adding spironolactone (though pt is presently refusing any new treatments, saying she has to speak with her PMD and daughters for anything related to medical Rx). Code(s): I10 - ESSENTIAL (PRIMARY) HYPERTENSION Qualifiers:
[2018-08-30] MEDS ORDERED: hydrALAZINE HCL 20 MG/ML VIAL IVPUSH ONE (19:42)
[2018-08-30] MEDS: ATORVASTATIN CA 20 MG TABLET (FP) PO SCH (21:12)
[2018-08-30] MEDS ORDERED: hydrALAZINE HCL 10 MG TABLET PO SCH (22:00)
[2018-08-31] MEDS ORDERED: PT OWN MED DRAWER 7, Y5N ONE ×3 (04:57→21:41)
[2018-08-31] MEDS: ALBUTEROL SO4 0.083% IH SOL 2.5 MG/3 ML VIAL.NEB. NEB PRN ×5 (06:05→22:25)
[2018-08-31 06:18] LABS: ANION GAP 4 MMOL/L (8-16); BLOOD UREA NITROGEN 17 mg/dL (7-18); CALCIUM 8.3 mg/dL (8.5-10.1); CHLORIDE 101 mmol/L (98-107); CO2 36 mmol/L (21-32); CREATININE 0.9 mg/dL (0.55-1.3); GLUCOSE,RANDOM 120 mg/dL (74-106); MAGNESIUM 1.8 mg/dL (1.8-2.4); POTASSIUM 3.5 mmol/L (3.5-5.1); SODIUM 141 mmol/L (136-145)
[2018-08-31] MEDS: FUROSEMIDE 40 MG/4 ML INJECTABLE VIAL IVPUSH SCH ×2 (06:38→13:27)
[2018-08-31] MEDS: INSULIN SLIDING SCALE (NOVOLOG) 1 VIAL SQ SCH ×4 (07:01→21:53)
[2018-08-31] MEDS: REPAGLINIDE 1 MG TABLET PO SCH ×3 (07:02→15:57)
--- NOTE | 2018-08-31 07:59 | PN ---
Physical Exam: SUBJECTIVE: Patient seen and examined at bedside. She states that her breathing is better today. Had episodes of desaturation overnight requiring use of NRB. Per nursing staff, patient desaturates to 82 of her oxygen is removed. OBJECTIVE: Vital Signs Period Temp Pulse Resp BP Sys/Mo Pulse Ox Last 24 Hr 98 F-98.4 F 70-79 22-26 147-189/66-79 96-100 GENERAL: The patient is awake, alert, and fully oriented, in no acute distress. Patient SOB on interview HEAD: Normal with no signs of trauma. NECK: Trachea midline, full range of motion, supple. LUNGS: Breath sounds improved compared to admission. Crackles and wheezes heard in the mid lung chin and apices. decreased breath sounds at the bases. HEART: Regular rate and rhythm, S1, S2. Systolic ejection murmur heard at LUSB unchanged. ABDOMEN: Soft, nontender, nondistended, normoactive bowel sounds, no guarding, no rebound, no hepatosplenomegaly, no masses. EXTREMITIES: 2+ pulses, warm, well-perfused, no edema. NEUROLOGICAL: Cranial nerves II through X grossly intact. Normal speech, gait not observed. SKIN: Warm, dry, normal turgor, no rashes or lesions noted Laboratory Results - last 24 hr 08/30/18 08/30/18 08/31/18 11:49 17:47 05:30 Sodium 141 Potassium 3.5 Chloride 101 Carbon Dioxide 36 H Anion Gap 4 L BUN 17 Creatinine 0.9 Creat Clearance w eGFR 59.80 POC Glucometer 162 84 Random Glucose 120 H Calcium 8.3 L Magnesium 1.8 Active Medications Generic Name Dose Route Start Last Admin Trade Name Freq PRN Reason Stop Dose Admin Acetaminophen 650 mg 08/30/18 08:35 Tylenol - PO Q6H PRN pain 1-3 Albuterol Sulfate 1 amp 08/29/18 18:56 08/31/18 06:05 Ventolin 0.083% Nebulizer Soln - NEB 1 amp Q6H PRN Administration SHORT OF BREATH/WHEEZING Amlodipine Besylate 10 mg 08/30/18 10:00 08/30/18 09:37 Norvasc - PO 10 mg DAILY PK Administration Apixaban 5 mg 08/29/18 22:00 08/30/18 21:02 Eliquis - PO 5 mg BID KP Administration Atorvastatin Calcium 20 mg 08/30/18 22:00 08/30/18 21:12 Lipitor - PO 20 mg HS PK Administration Ferrous Sulfate 325 mg 08/29/18 22:00 08/30/18 21:02 Feosol - PO 325 mg BID PK Administration Furosemide 60 mg 08/30/18 06:00 08/31/18 06:38 Lasix Injection - IVPUSH 60 mg BID@0600,1400 PK Administration Insulin Aspart 1 vial 08/29/18 22:00 08/31/18 07:01 Novolog Vial Sliding Scale - SQ Not Given ACHS [facility] Protocol Lisinopril 40 mg 08/30/18 10:00 08/30/18 09:37 Prinivil PO 40 mg DAILY PK Administration Lorazepam 0.5 mg 08/30/18 15:26 08/30/18 20:54 Ativan - PO 0.5 mg Q24H PRN Administration ANXIETY Nebivolol 5 mg 08/30/18 10:00 08/30/18 11:43 Bystolic - PO 5 mg DAILY PK Administration Pantoprazole Sodium 40 mg 08/30/18 10:00 08/30/18 09:37 Protonix - PO 40 mg DAILY PK Administration Repaglinide 1 mg 08/29/18 19:15 08/31/18 07:02 Prandin - PO Not Given TIDAC [facility] Fluticasone/Salmeterol 1 puff 08/29/18 22:00 08/30/18 23:35 Advair 100mcg/50mcg - IH Not Given BID [facility] Sertraline HCl 50 mg 08/30/18 10:00 08/30/18 09:37 Zoloft - PO 50 mg DAILY PK Administration ASSESSMENT/PLAN: The patient is an 82 yo f w/ PMH Afib on AC, CHF, DM, Pulm HTN, COPD (on 3L home O2), asthma who came to the ED c/o a 3 day history of worsening SOB. Patient being observed on tele for acute CHF exacerbation #SOB, generalized weakness and fatigue 2/2 acute CHF exacerbation -Episodes of desaturation overnight, currently on NRB -deescalate O2 to 50% venturi mask; titrate to maintain O2 sat 90-95%; patient has COPD -Lasix 60mg BID increased to 80 BID today -monitoring BMP closely during IV diuresis -Daily weights (dry weight 165) -I&O -fluid restriction 1L -cardiology onboard: Dr. Stewart #UTI -urine culture growing P. Mirabilis in significant quantities -will begin Rocephin 1g daily IV #DM -BGM ACHS -ISS ACHS #Afib -c/w home eliquis 5mg BID #COPD -c/w home inhalers #FEN -no fluids indicated -lytes WNL -sodium controlled diet #prophy -on eliquis at home #dispo -observe on tele for diuresis Visit type - Emergency Visit Emergency Visit: Yes ED Registration Date: 08/30/18 Care time: The patient presented to the Emergency Department on the above date and was hospitalized for further evaluation of their emergent condition. - New Patient This patient is new to me today: Yes Date on this admission: 08/31/18 - Critical Care Critical Care patient: No - Discharge Referral Referred to [facility] Med P.C.: No
--- NOTE | 2018-08-31 09:47 | PN ---
Teaching Attending Note Name of Resident: Russell Sandoval ATTENDING PHYSICIAN STATEMENT I saw and evaluated the patient. I reviewed the resident's note and discussed the case with the resident. I agree with the resident's findings and plan as documented. SUBJECTIVE:c/o difficulty breathing. states worse when eating or talking. denies CP, fever, chills, cough or orthopnea OBJECTIVE: Last Vital Signs Temp Pulse Resp BP Pulse Ox 98.4 F 76 24 H 189/69 H 96 08/30/18 23:00 08/31/18 07:52 08/31/18 07:52 08/31/18 07:52 08/30/18 23:00 Intake & Output 08/28/18 08/29/18 08/30/18 08/31/18 23:59 23:59 23:59 23:59 Intake Total 745 Output Total 250 Balance 495 Weight 160 lb 169 lb 1 oz General NAD CV s1 S2 +murmur Lungs B/L base crackles, scattered wheezing Abdomen soft NT/ND obese Extremities trace pitting edema ASSESSMENT AND PLAN: 82yo F with PMH systolic CHF, afib on eliquis, DM, COPD on 2L NC, pulmonary HTN presented to the ER with progressively worsening SOB and non productive cough x3 days 1. Acute on chronic systolic CHF exacerbation-2 lb weight loss, remains very symptomatic. will increase lasix to 80mg BID and monitor for response. may benefit from entresto, does not want to start new medications till supported by her concrete analyst. repeat echo. monitor electrolytes, daily weights. 2. +Proteus UTI-does not have sx but >10k colonies, will start ceftriaxone. await C&S. 3. Acute on chronic hypoxic respiratory failure-due to volume overload. desaturated to low 82 on 4L NC. now >88% on 40% face mask. will optimize diuresis. will titrate down o2 as tolerated. 4. hypokalemia- Kcl 40meq 5. HTN- above goal. refuses new medications at this time 6. afib on eliquis- rate controlled. cont nebivolol/elquis 7. DM- cont home dose of levemir, iss and bgm 8. DVT ppx- eliquis
[2018-08-31] MEDS ORDERED: cefTRIAXone SODIUM 1 GM VIAL ONE (10:09)
[2018-08-31] MEDS ORDERED: DEXTROSE 5%-WATER - 50 ML IVPB ONE (10:09)
[2018-08-31] MEDS: NEBIVOLOL 5 MG TABLET (FP) PO SCH (10:10)
[2018-08-31] MEDS: LISINOPRIL 20 MG TABLET (FP) PO SCH (10:10)
[2018-08-31] MEDS: amLODIPine BESYLATE 10 MG TABLET (FP) PO SCH (10:10)
[2018-08-31] MEDS: CEFTRIAXONE 1 GM in DEXTROSE 5%-WATER - 50 ML IVPB SCH (10:10)
[2018-08-31] MEDS: SERTRALINE HCL 50 MG TABLET (FP) PO SCH (10:10)
[2018-08-31] MEDS: FERROUS SO4 325 MG TABLET (FP) PO SCH ×2 (10:10→21:53)
[2018-08-31] MEDS: APIXABAN 5 MG TABLET PO SCH ×2 (10:10→21:53)
[2018-08-31] MEDS: PANTOPRAZOLE 40 MG TABLET (FP) PO SCH (10:10)
[2018-08-31] MEDS: ACETAMINOPHEN 325 MG TABLET (FP) PO PRN (10:13)
[2018-08-31] MEDS: FLUTICASONE/SALMETEROL 100 MCG/50 MCG DISKUS IH SCH ×2 (10:34→21:53)
--- NOTE | 2018-08-31 14:26 | PN ---
Progress Note, Physician Chief Complaint: Pt A&Ox3; sitting up in bed (she sits up to sleep at home); still SOB, but feels mildly better than yesterday.C/o having no BM x 3 days. History of Present Illness: The patient is a 82 year old female with a significant past medical history of diastolic CHF, COPD, HTN, HLD, asthma, DM, and A Fib (on Eliquis), who presents to the emergency department with 4 days of shortness of breath. The patient states she endorses cough and subjective fevers. She denies any other symptoms. The patient states she has taken her breathing treatments at home with no relief. She states her symptoms feel similar to her prior CHF exacerbations. The patient denies chest pain, headache, dizziness, chills, nausea, vomit, diarrhea or constipation. The patient denies dysuria, frequency, urgency or hematuria. Allergies: ciprofloxacin and ciprofloxacin HCl Past surgical history:Hip Replacement ( 2007, redone 2015) Social history: Former smoker. No alcohol use. PCP: Dr. Ravi Solid Die Cutter:Dr. Cline - Current Medication List Current Medications: Active Medications Acetaminophen (Tylenol -) 650 mg PO Q6H PRN PRN Reason: pain 1-3 Last Admin: 08/31/18 10:13 Dose: 650 mg Albuterol Sulfate (Ventolin 0.083% Nebulizer Soln -) 1 amp NEB Q6H PRN PRN Reason: SHORT OF BREATH/WHEEZING Last Admin: 08/31/18 11:27 Dose: 1 amp Amlodipine Besylate (Norvasc -) 10 mg PO DAILY [facility] Last Admin: 08/31/18 10:10 Dose: 10 mg Apixaban (Eliquis -) 5 mg PO BID [facility] Last Admin: 08/31/18 10:10 Dose: 5 mg Atorvastatin Calcium (Lipitor -) 20 mg PO HS [facility] Last Admin: 08/30/18 21:12 Dose: 20 mg Ferrous Sulfate (Feosol -) 325 mg PO BID [facility] Last Admin: 08/31/18 10:10 Dose: 325 mg Furosemide (Lasix Injection -) 80 mg IVPUSH BID@0600,1400 [facility] Last Admin: 08/31/18 13:27 Dose: 80 mg Ceftriaxone Sodium 1 gm/ (Dextrose) 50 mls @ 100 mls/hr IVPB DAILY [facility] Last Admin: 08/31/18 10:10 Dose: 100 mls/hr Insulin Aspart (Novolog Vial Sliding Scale -) 1 vial SQ ACHS [facility]; Protocol Last Admin: 08/31/18 10:38 Dose: 4 units Lisinopril (Prinivil) 40 mg PO DAILY [facility] Last Admin: 08/31/18 10:10 Dose: 40 mg Lorazepam (Ativan -) 0.5 mg PO Q24H PRN PRN Reason: ANXIETY Last Admin: 08/30/18 20:54 Dose: 0.5 mg Nebivolol (Bystolic -) 5 mg PO DAILY [facility] Last Admin: 08/31/18 10:10 Dose: 5 mg Pantoprazole Sodium (Protonix -) 40 mg PO DAILY [facility] Last Admin: 08/31/18 10:10 Dose: 40 mg Repaglinide (Prandin -) 1 mg PO TIDAC [facility] Last Admin: 08/31/18 10:10 Dose: 1 mg Fluticasone/Salmeterol (Advair 100mcg/50mcg -) 1 puff IH BID [facility] Last Admin: 08/31/18 10:34 Dose: Not Given Sertraline HCl (Zoloft -) 50 mg PO DAILY [facility] Last Admin: 08/31/18 10:10 Dose: 50 mg - Objective Vital Signs: Vital Signs Temperature 99.1 F 08/31/18 13:35 Pulse Rate 66 08/31/18 13:35 Respiratory Rate 22 H 08/31/18 13:35 Blood Pressure 141/52 L 08/31/18 13:35 O2 Sat by Pulse Oximetry (%) 100 08/31/18 08:00 Constitutional: Yes: Calm Eyes: Yes: WNL HENT: Yes: WNL Neck: Yes: WNL Cardiovascular: Yes: Pulse Irregular Respiratory: Yes: On Nasal O2, Poor Air Entry, Rales, Rhonchi, SOB Gastrointestinal: Yes: Soft. No: Tenderness ...Rectal Exam: Yes: Deferred Genitourinary: No: Anuria Breast(s): Yes: WNL Musculoskeletal: Yes: Muscle Weakness Extremities: Yes: Cool Edema: No Peripheral Pulses WNL: Yes Integumentary: Yes: WNL Neurological: Yes: Alert, Oriented Psychiatric: Yes: Alert, Oriented Labs: CBC, BMP 08/30/18 05:30 08/31/18 05:30 INR, PTT INR 1.80 (0.83-1.09) H 08/30/18 05:30 Abnormal Lab Results 08/31/18 05:30 Carbon Dioxide 36 H Anion Gap 4 L Random Glucose 120 H Calcium 8.3 L - ....Imaging Other: Image Reviewed (telemetry: AF with controlled VR) Problem List - Problems (1) Hypervolemia Code(s): E87.70 - FLUID OVERLOAD, UNSPECIFIED Qualifiers: Hypervolemia type: unspecified Qualified Code(s): E87.70 - Fluid overload, unspecified (2) Acute on chronic diastolic (congestive) heart failure Assessment/Plan: Less dyspneic. +JVD Significant vascular congestion on CXR. ON furosemide IVP bid (dose increased from 60 mg to 80 mg bid); on ACEI and Beta yessenia F/u BUn/Cr, electrolytes, Is and Os, daily weight. Code(s): I50.33 - ACUTE ON CHRONIC DIASTOLIC (CONGESTIVE) HEART FAILURE (3) Acute on chronic respiratory failure with hypoxemia Code(s): J96.21 - ACUTE AND CHRONIC RESPIRATORY FAILURE WITH HYPOXIA (4) Atrial fibrillation Assessment/Plan: On Bystolic for HR control. On apixaban for anticoagulation. Code(s): I48.91 - UNSPECIFIED ATRIAL FIBRILLATION Qualifiers: Atrial fibrillation type: persistent Qualified Code(s): I48.1 - Persistent atrial fibrillation (5) Moderate to severe aortic stenosis Assessment/Plan: F?u evaluation of significant aortic stenosis with episode of CHF. Code(s): I35.0 - NONRHEUMATIC AORTIC (VALVE) STENOSIS (6) HTN (hypertension) Assessment/Plan: Treatment of HTN with pt's severe aoric stenosis is difficult. She is on Bystolic for AF and HTN (though problematic using beta blockers with ). On ACEI and diuretics (furosemide), which may be the best option presently. Consider adding spironolactone (though pt is presently refusing any new treatments, saying she has to speak with her PMD and daughters for anything related to medical Rx. TAVR might be a consideration). Code(s): I10 - ESSENTIAL (PRIMARY) HYPERTENSION Qualifiers:
[2018-08-31 14:46] LABS: CHOLESTEROL 139 mg/dL (50-200); HDL CHOLESTEROL 41 mg/dL (40-60); TRIGLYCERIDES 89 mg/dL (0-150)
[2018-08-31] MEDS: ATORVASTATIN CA 20 MG TABLET (FP) PO SCH (21:53)
[2018-09-01] MEDS ORDERED: LISINOPRIL 20 MG TABLET (FP) PO ONE (01:45)
[2018-09-01] MEDS: FUROSEMIDE 40 MG/4 ML INJECTABLE VIAL IVPUSH SCH ×2 (06:29→13:23)
[2018-09-01] MEDS: REPAGLINIDE 1 MG TABLET PO SCH ×3 (06:30→17:57)
[2018-09-01] MEDS: ACETAMINOPHEN 325 MG TABLET (FP) PO PRN ×2 (06:30→16:09)
[2018-09-01] MEDS: INSULIN SLIDING SCALE (NOVOLOG) 1 VIAL SQ SCH ×4 (06:30→22:43)
[2018-09-01 07:29] LABS: ANION GAP 5 MMOL/L (8-16); BLOOD UREA NITROGEN 22 mg/dL (7-18); CALCIUM 8.4 mg/dL (8.5-10.1); CHLORIDE 99 mmol/L (98-107); CO2 39 mmol/L (21-32); CREATININE 1.1 mg/dL (0.55-1.3); GLUCOSE,RANDOM 118 mg/dL (74-106); POTASSIUM 3.5 mmol/L (3.5-5.1); SODIUM 142 mmol/L (136-145)
[2018-09-01] MEDS: ALBUTEROL SO4 0.083% IH SOL 2.5 MG/3 ML VIAL.NEB. NEB PRN ×3 (08:05→16:20)
[2018-09-01] MEDS ORDERED: cefTRIAXone SODIUM 1 GM VIAL ONE (09:23)
[2018-09-01] MEDS ORDERED: PT OWN MED DRAWER 7, Y5N ONE ×4 (09:24→23:11)
[2018-09-01] MEDS ORDERED: DEXTROSE 5%-WATER - 50 ML IVPB ONE (09:24)
[2018-09-01] MEDS: CEFTRIAXONE 1 GM in DEXTROSE 5%-WATER - 50 ML IVPB SCH (09:41)
[2018-09-01] MEDS: PANTOPRAZOLE 40 MG TABLET (FP) PO SCH (09:43)
[2018-09-01] MEDS: APIXABAN 5 MG TABLET PO SCH ×2 (09:43→23:03)
[2018-09-01] MEDS: amLODIPine BESYLATE 10 MG TABLET (FP) PO SCH (09:43)
[2018-09-01] MEDS: SERTRALINE HCL 50 MG TABLET (FP) PO SCH (09:43)
[2018-09-01] MEDS: FERROUS SO4 325 MG TABLET (FP) PO SCH ×2 (09:43→22:43)
[2018-09-01] MEDS: LISINOPRIL 20 MG TABLET (FP) PO SCH (09:43)
[2018-09-01] MEDS: NEBIVOLOL 5 MG TABLET (FP) PO SCH (09:44)
[2018-09-01] MEDS: FLUTICASONE/SALMETEROL 100 MCG/50 MCG DISKUS IH SCH ×2 (11:04→23:01)
--- NOTE | 2018-09-01 11:30 | PN ---
Teaching Attending Note Name of Resident: Edgard Rivers ATTENDING PHYSICIAN STATEMENT I saw and evaluated the patient. I reviewed the resident's note and discussed the case with the resident. I agree with the resident's findings and plan as documented. SUBJECTIVE:states she didnt sleep well because the face mask was too loud while she was sleeping. breathing somewhat improved. denies Cp, fever,chills, cough, N /V/C/D OBJECTIVE: Last Vital Signs Temp Pulse Resp BP Pulse Ox 99.2 F 60 20 171/61 H 100 09/01/18 09:45 09/01/18 09:45 09/01/18 09:45 09/01/18 09:45 09/01/18 00:00 Intake & Output 08/29/18 08/30/18 08/31/18 09/01/18 23:59 23:59 23:59 23:59 Intake Total 745 380 100 Output Total 250 Balance 495 380 100 Weight 160 lb 169 lb 1 oz 173 lb General NAD CV s1 S2 +murmur Lungs B/L base crackles, Abdomen soft NT/ND obese Extremities no pitting edema ASSESSMENT AND PLAN: 82yo F with PMH systolic CHF, afib on eliquis, DM, COPD on 2L NC, pulmonary HTN presented to the ER with progressively worsening SOB and non productive cough x3 days 1. Acute on chronic systolic CHF exacerbation-do not beleive she gained 4 lbs from yesterday. todays weight is consistent with her previous admissions. will cont with current lasix 80mg IV BID. echo pending. may benefit from entresto, does not want to start new medications till supported by her occupational therapy manager. monitor electrolytes, daily weights. 2. +Proteus UTI-does not have sx but >10k colonies ceftriaxone day 2. await C& S. 3. Acute on chronic hypoxic respiratory failure-due to volume overload. saturating 92% on 2L NC which is home dose of oxygen. will optimize diuresis. will titrate down o2 as tolerated. 4. hypokalemia- resolved 5. HTN- above goal. refuses new medications at this time. will d/w cardio about adjustment. repeat BP 158/70 on my assessment 6. afib on eliquis- rate controlled. cont nebivolol/elquis 7. DM- cont home dose of levemir, iss and bgm 8. DVT ppx- eliquis
--- NOTE | 2018-09-01 11:34 | PN ---
Physical Exam: SUBJECTIVE: Patient seen and examined at bedside this morning. She endorses diffuse lower extremity "arthritis" pain" that did not allow her to sleep through the night. She denies subjective fevers ,chills, and endorses improvement of her shortness of breath.Overnight patient was hypertensive to 180 / 65mHg, and was treated with Lisinopril 40mg PO one time dose. OBJECTIVE: Vital Signs Period Temp Pulse Resp BP Sys/Mo Pulse Ox Last 24 Hr 98.0 F-99.2 F 60-80 20-28 141-187/52-82 100 GENERAL: The patient is awake, alert, and fully oriented, in no acute distress. HEAD: Normocephalic, atraumatic. EYES: PERRL, extraocular movements intact, sclera anicteric, conjunctiva clear. ENT: Oropharynx clear without exudates, moist mucous membranes. NECK: Trachea midline, supple without lymphadenopathy. LUNGS: Good inspiratory effort and air entry bilaterally. Breath sounds equal, with fine crackles auscultated bilateral lower lobes. No accessory muscle use. On 2L nasal canula. HEART: Regular rate and rhythm, S1, S2 auscultated with 3/6 systolic ejection murmur radiating to carotids bilaterally. ABDOMEN: Obese. Soft, nondistended, nontender to light and deep palpation X4 quadrants. No guarding, no rebound tenderness. Normoactive bowel sounds x4 quadrants. EXTREMITIES: 2+ radial, dorsalis pedis pulses bilaterally. Warm, well-perfused. 1+ bilateral lower extremity edema. NEUROLOGICAL: Cranial nerves II through XII grossly intact. Normal speech. PSYCH: Normal mood, normal affect upon my encounter. SKIN: Warm, dry. Laboratory Results - last 24 hr 08/31/18 08/31/18 08/31/18 05:30 06:58 15:54 Sodium 141 Potassium 3.5 Chloride 101 Carbon Dioxide 36 H Anion Gap 4 L BUN 17 Creatinine 0.9 Creat Clearance w eGFR 59.80 POC Glucometer 139 426 Random Glucose 120 H Calcium 8.3 L Magnesium 1.8 Triglycerides 89 Cholesterol 139 Total LDL Cholesterol 81 HDL Cholesterol 41 08/31/18 09/01/18 09/01/18 21:52 05:30 06:26 Sodium 142 Potassium 3.5 Chloride 99 Carbon Dioxide 39 H Anion Gap 5 L BUN 22 H Creatinine 1.1 Creat Clearance w eGFR 47.43 POC Glucometer 144 118 Random Glucose 118 H Calcium 8.4 L Magnesium Triglycerides Cholesterol Total LDL Cholesterol HDL Cholesterol Active Medications Generic Name Dose Route Start Last Admin Trade Name Hilario PRN Reason Stop Dose Admin Acetaminophen 650 mg 08/30/18 08:35 09/01/18 06:30 Tylenol - PO 650 mg Q6H PRN Administration pain 1-3 Albuterol Sulfate 1 amp 08/29/18 18:56 09/01/18 08:05 Ventolin 0.083% Nebulizer Soln - NEB 1 amp Q6H PRN Administration SHORT OF BREATH/WHEEZING Amlodipine Besylate 10 mg 08/30/18 10:00 09/01/18 09:43 Norvasc - PO 10 mg DAILY PK Administration Apixaban 5 mg 08/29/18 22:00 09/01/18 09:43 Eliquis - PO 5 mg BID PK Administration Atorvastatin Calcium 20 mg 08/30/18 22:00 08/31/18 21:53 Lipitor - PO 20 mg HS PK Administration Ferrous Sulfate 325 mg 08/29/18 22:00 09/01/18 09:43 Feosol - PO 325 mg BID PK Administration Furosemide 80 mg 08/31/18 14:00 09/01/18 06:29 Lasix Injection - IVPUSH 80 mg BID@0600,1400 PK Administration Ceftriaxone Sodium 1 gm/ 50 mls @ 100 mls/hr 08/31/18 10:00 09/01/18 09:41 Dextrose IVPB 100 mls/hr DAILY PK Administration Insulin Aspart 1 vial 08/29/18 22:00 09/01/18 06:30 Novolog Vial Sliding Scale - SQ Not Given ACHS PK Protocol Lisinopril 40 mg 08/30/18 10:00 09/01/18 09:43 Prinivil PO 40 mg DAILY PK Administration Lorazepam 0.5 mg 08/30/18 15:26 08/30/18 20:54 Ativan - PO 0.5 mg Q24H PRN Administration ANXIETY Nebivolol 5 mg 08/30/18 10:00 09/01/18 09:44 Bystolic - PO 5 mg DAILY PK Administration Pantoprazole Sodium 40 mg 08/30/18 10:00 09/01/18 09:43 Protonix - PO 40 mg DAILY PK Administration Repaglinide 1 mg 08/29/18 19:15 09/01/18 06:30 Prandin - PO 1 mg TIDAC PK Administration Fluticasone/Salmeterol 1 puff 08/29/18 22:00 09/01/18 11:04 Advair 100mcg/50mcg - IH 1 puff BID PK Administration Sertraline HCl 50 mg 08/30/18 10:00 09/01/18 09:43 Zoloft - PO 50 mg DAILY PK Administration ASSESSMENT/PLAN: Patient is an 82 year old female with history of asthma, COPD, Afib (on Elequis ) DM, HTN, HLD, arthritis, presents with complaint of shortness of breath for the past 3 days prior to admission. Acute on chronic hypoxic respiratory failure -Likely secondary to CHF exacerbation. -CXR shows bilateral lower lobe effusions -Lasix 80mg IV BID -Duonebs QID, and Q4H PRN -Advair 1 puff BID -Cardiology consult (Dr. Stewart) appreciated. -F/U cardiac ECHO -Monitor intake, output, daily weights Urinary tract infection -Urine culture grows Proteus mirabilis, Group D streptococcus -Ceftriaxone 1 gram IV daily (day #2) Afib -Eliquis 5mg PO BID -Rate control with Nebivolol 5mg PO daily HTN -Amlodipine 10mg daily -Lisinopril 40mg daily -Spironolactone 25mg PO daily HLD -Lipitor 20mg PO QHS Anxiety, depression -Sertaline 50mg daily DM -A1c is 7.8% -ISS ACHS -BGM ACHS FEN -No IV fluids -Follow CMP -Sodium restricted diet Prophylaxis -On Eliquis 5mg BID for Afib -Protonix 40mg PO daily Disposition -Continue care in medical surgical floor Visit type - Emergency Visit Emergency Visit: Yes ED Registration Date: 08/30/18 Care time: The patient presented to the Emergency Department on the above date and was hospitalized for further evaluation of their emergent condition. - New Patient This patient is new to me today: Yes Date on this admission: 09/01/18 - Critical Care Critical Care patient: No - Discharge Referral Referred to [facility] Med P.C.: No
--- NOTE | 2018-09-01 11:34 | PN ---
Progress Note, Physician Chief Complaint: Events noted Dyspea intermittently but better than when she came in History of Present Illness: Patient was seen and examined. Awake and alert. Chart was reviewed Denies chest pain. Improved dyspnea but still persists intermittently. Denies palpitations - Current Medication List Current Medications: Active Medications Acetaminophen (Tylenol -) 650 mg PO Q6H PRN PRN Reason: pain 1-3 Last Admin: 09/01/18 06:30 Dose: 650 mg Albuterol Sulfate (Ventolin 0.083% Nebulizer Soln -) 1 amp NEB Q6H PRN PRN Reason: SHORT OF BREATH/WHEEZING Last Admin: 09/01/18 08:05 Dose: 1 amp Amlodipine Besylate (Norvasc -) 10 mg PO DAILY [facility] Last Admin: 09/01/18 09:43 Dose: 10 mg Apixaban (Eliquis -) 5 mg PO BID [facility] Last Admin: 09/01/18 09:43 Dose: 5 mg Atorvastatin Calcium (Lipitor -) 20 mg PO HS [facility] Last Admin: 08/31/18 21:53 Dose: 20 mg Ferrous Sulfate (Feosol -) 325 mg PO BID [facility] Last Admin: 09/01/18 09:43 Dose: 325 mg Furosemide (Lasix Injection -) 80 mg IVPUSH BID@0600,1400 [facility] Last Admin: 09/01/18 06:29 Dose: 80 mg Ceftriaxone Sodium 1 gm/ (Dextrose) 50 mls @ 100 mls/hr IVPB DAILY [facility] Last Admin: 09/01/18 09:41 Dose: 100 mls/hr Insulin Aspart (Novolog Vial Sliding Scale -) 1 vial SQ ACHS [facility]; Protocol Last Admin: 09/01/18 06:30 Dose: Not Given Lisinopril (Prinivil) 40 mg PO DAILY [facility] Last Admin: 09/01/18 09:43 Dose: 40 mg Lorazepam (Ativan -) 0.5 mg PO Q24H PRN PRN Reason: ANXIETY Last Admin: 08/30/18 20:54 Dose: 0.5 mg Nebivolol (Bystolic -) 5 mg PO DAILY [facility] Last Admin: 09/01/18 09:44 Dose: 5 mg Pantoprazole Sodium (Protonix -) 40 mg PO DAILY [facility] Last Admin: 09/01/18 09:43 Dose: 40 mg Repaglinide (Prandin -) 1 mg PO TIDAC [facility] Last Admin: 09/01/18 06:30 Dose: 1 mg Fluticasone/Salmeterol (Advair 100mcg/50mcg -) 1 puff IH BID [facility] Last Admin: 09/01/18 11:04 Dose: 1 puff Sertraline HCl (Zoloft -) 50 mg PO DAILY [facility] Last Admin: 09/01/18 09:43 Dose: 50 mg - Objective Vital Signs: Vital Signs Temperature 99.2 F 09/01/18 09:45 Pulse Rate 60 09/01/18 09:45 Respiratory Rate 20 09/01/18 09:45 Blood Pressure 171/61 H 09/01/18 09:45 O2 Sat by Pulse Oximetry (%) 100 09/01/18 00:00 Eyes: Yes: PERRL HENT: Yes: Atraumatic Neck: Yes: Supple Cardiovascular: Yes: Pulse Irregular, Murmur (JAZMYN), S1, S2 Respiratory: Yes: Diminished, SOB, SOB on Exertion Gastrointestinal: Yes: Normal Bowel Sounds, Soft. No: Tenderness Edema: No Additional Findings/Remarks: - Review of Systems Constitutional: denies: Chills, Fever Cardiovascular: reports: Chest Pain. denies: Palpitations, (+) Shortness of Breath Respiratory: reports: Cough. denies: Hemoptysis, Orthopnea, PND, (+) SOB, SOB on Exertion Gastrointestinal: denies: Abdominal Pain, Constipation, Diarrhea, Melena, Nausea , Rectal Bleeding, Vomiting Neurological: denies: Dizziness, Headache, Seizure, Syncope Labs: CBC, BMP 08/30/18 05:30 09/01/18 05:30 INR, PTT INR 1.80 (0.83-1.09) H 08/30/18 05:30 Problem List - Problems (1) CHF exacerbation Code(s): I50.9 - HEART FAILURE, UNSPECIFIED Qualifiers: Heart failure type: unspecified Qualified Code(s): I50.9 - Heart failure, unspecified (2) Moderate to severe aortic stenosis Code(s): I35.0 - NONRHEUMATIC AORTIC (VALVE) STENOSIS (3) Acute on chronic diastolic (congestive) heart failure Code(s): I50.33 - ACUTE ON CHRONIC DIASTOLIC (CONGESTIVE) HEART FAILURE (4) Acute on chronic respiratory failure with hypoxemia Code(s): J96.21 - ACUTE AND CHRONIC RESPIRATORY FAILURE WITH HYPOXIA (5) Iwiju-um-ejtffiq kidney injury Code(s): N17.9 - ACUTE KIDNEY FAILURE, UNSPECIFIED; N18.9 - CHRONIC KIDNEY DISEASE, UNSPECIFIED Qualifiers: Acute renal failure type: unspecified Chronic kidney disease stage: stage 2 (mild) Qualified Code(s): N17.9 - Acute kidney failure, unspecified; N18.2 - Chronic kidney disease, stage 2 (mild) (6) Anemia Code(s): D64.9 - ANEMIA, UNSPECIFIED Qualifiers: (7) Diastolic dysfunction without heart failure Code(s): I51.9 - HEART DISEASE, UNSPECIFIED (8) Dyspnea Code(s): R06.00 - DYSPNEA, UNSPECIFIED Qualifiers: Dyspnea type: dyspnea on exertion Qualified Code(s): R06.09 - Other forms of dyspnea (9) HTN (hypertension) Code(s): I10 - ESSENTIAL (PRIMARY) HYPERTENSION Qualifiers: Hypertension type: essential hypertension Qualified Code(s): I10 - Essential (primary) hypertension (10) Atrial fibrillation Code(s): I48.91 - UNSPECIFIED ATRIAL FIBRILLATION Qualifiers: Atrial fibrillation type: persistent Qualified Code(s): I48.1 - Persistent atrial fibrillation (11) COPD (chronic obstructive pulmonary disease) Code(s): J44.9 - CHRONIC OBSTRUCTIVE PULMONARY DISEASE, UNSPECIFIED Qualifiers: (12) Diabetes mellitus Code(s): E11.9 - TYPE 2 DIABETES MELLITUS WITHOUT COMPLICATIONS Qualifiers: Diabetes mellitus type: type 2 Diabetes mellitus intermediate insulin use: without terminal operations manager use Diabetes mellitus complication status: without complication Qualified Code(s): E11.9 - Type 2 diabetes mellitus without complications (13) Diastolic dysfunction Code(s): I51.9 - HEART DISEASE, UNSPECIFIED (14) Hypercholesterolemia Code(s): E78.00 - PURE HYPERCHOLESTEROLEMIA, UNSPECIFIED (15) Mitral valve regurgitation Code(s): I34.0 - NONRHEUMATIC MITRAL (VALVE) INSUFFICIENCY Qualifiers: Cardiac valve disease etiology: nonrheumatic Qualified Code(s): I34.0 - Nonrheumatic mitral (valve) insufficiency (16) Tricuspid valve regurgitation Code(s): I07.1 - RHEUMATIC TRICUSPID INSUFFICIENCY Qualifiers: Cardiac valve disease etiology: nonrheumatic Qualified Code(s): I36.1 - Nonrheumatic tricuspid (valve) insufficiency Assessment/Plan 1. Persistent atrial fibrillation with slow ventricular response [id number] score of 7 on DOAC/Eliquis 2. Acute on chronic diastolic heart failure and moderate aortic stenosis 3. COPD 4. Type 2 DM 5. Hypertensive heart disease 6. Hypercholesterolemia 7. Chronic kidney disease 8. Anemia 9. Degenerative joint disease post right THR 10. CAD, angina pectoris 11. History of epistaxis PLAN: 1. IV diuresis and Aldactone currently 25 mg QD (previously was on 50 mg) with monitoring renal function and electrolytes 2. Continue Bystolic 5 mg QD. Continue Lisinopril 40 mg QD, Eliquis 5 mg BID, Lipitor 20 mg QHS and Amlodipine 10 mg QD 3. Bronchodilator, oral steroids taper and O2 as needed 4. No need for aortic valve surgery as outlined previously 5. Continue present management Armen Stewart MD
--- NOTE | 2018-09-01 15:35 | EKG ---
Test Reason : Blood Pressure : / mmHG Vent. Rate : 066 BPM Atrial Rate : 047 BPM P-R Int : 000 ms QRS Dur : 102 ms QT Int : 414 ms P-R-T Axes : 000 -44 060 degrees QTc Int : 434 ms ATRIAL FIBRILLATION LEFT AXIS DEVIATION ANTEROLATERAL INFARCT (CITED ON OR BEFORE 25-FEB-2018) ABNORMAL ECG WHEN COMPARED WITH ECG OF 10-JUN-2018 09:37, T WAVE VARIATION Confirmed by PEPPER DE LA CRUZ, CLOVER ([id number]) on 09/01/2018 3:35:24 PM Referred By: Confirmed By:CLOVER PABON MD
--- NOTE | 2018-09-01 18:22 | ECHO ---
Name: KOBY RITCHIE Exam:Adult Echocardiogram Study Date: 09/01/2018 02:40 PM Age: 82 yrs Reason For Study: sob Height: 61 in Weight: 173 lb BSA: 1.8 m2 BP: 160/ mmHg MMode/2D Measurements & Calculations IVSd: 0.91 cm Ao root diam: 3.1 cm LVIDd: 4.6 cm LA dimension: 5.0 cm LVIDs: 2.8 cm ACS: 0.30 cm LVPWd: 0.81 cm IVSs: 1.3 cm LVPWs: 1.3 cm EDV(Teich): 97.3 ml ESV(Teich): 30.6 ml LVOT diam: 2.0 cm Doppler Measurements & Calculations MV E max trae: 134.0 cm/sec Ao V2 max: 333.4 cm/sec MV A max trae: 35.0 cm/sec Ao max P.5 mmHg MV E/A: 3.8 Ao V2 mean: 252.6 cm/sec Ao mean P.4 mmHg Ao V2 VTI: 83.4 cm CHARI(I,D): 0.76 cm2 CHARI(V,D): 0.71 cm2 LV V1 max P.1 mmHg MR max trae: 628.4 cm/sec LV V1 mean P.2 mmHg MR max P.3 mmHg LV V1 max: 71.7 cm/sec LV V1 mean: 55.4 cm/sec LV V1 VTI: 19.3 cm SV(LVOT): 63.6 ml TR max trae: 328.0 cm/sec TR max P.3 mmHg PI end-d trae: 106.0 cm/sec Med Peak E' Trae: 8.6 cm/sec Med E/e': 15.7 Lat Peak E' Trae: 6.8 cm/sec Lat E/e': 19.7 Procedure A complete two-dimensional transthoracic echocardiogram was performed (2D, M-mode, Doppler and color flow Doppler). Left Ventricle The left ventricle is normal in size. There is mild concentric left ventricular hypertrophy. Left precious tricular systolic function is normal. Ejection Fraction = 65-70%. No regional wall motion abnormalities noted. Right Ventricle The right ventricle is normal size. The right ventricular systolic function is normal. Atria The left atrium is moderately dilated. The right atrium is moderately dilated. Mitral Valve There is mild mitral annular calcification. There is mild mitral valve thickening. There is moderate mitral regurgitation. Tricuspid Valve The tricuspid valve is normal in structure and function. There is moderate tricuspid regurgitation. P ulmonary artery systolic pressure is at least 69 mmHg assuming RA pressure of 15 mmHg (dilated IVC with <50% c ollapse). Aortic Valve There is moderate to severe aortic valve thickening. Severe valvular aortic stenosis. The calculated aortic valve area using the continuity equation is 0.7 cm2. Aortic mean pressure gradient= 31 mmHg. No aorti c regurgitation is present. Pulmonic Valve The pulmonic valve is not well visualized. Mild pulmonic valvular regurgitation. Great Vessels The aortic root is normal size. Pericardium/Pleura There is no pericardial effusion. Interpretation Summary The left ventricle is normal in size. There is mild concentric left ventricular hypertrophy. Left ventricular systolic function is normal. No regional wall motion abnormalities noted. Ejection Fraction = 65-70%. The right ventricular systolic function is normal. The left atrium is moderately dilated. The right atrium is moderately dilated. There is mild mitral annular calcification. There is mild mitral valve thickening. There is moderate mitral regurgitation. There is moderate tricuspid regurgitation. Pulmonary artery systolic pressure is at least 69 mmHg assuming RA pressure of 15 mmHg (dilated IVC w ith <50% collapse) There is moderate to severe aortic valve thickening. Severe valvular aortic stenosis. DI (dimensionless index) is 0.23 (LVOT VTI/AV VTI) The calculated aortic valve area using the continuity equation is 0.7 cm2. Aortic mean pressure gradient= 31 mmHg No aortic regurgitation is present. Mild pulmonic valvular regurgitation. There is no pericardial effusion. When compared to study dated 02/27/18, there may be worsening of aortic stenosis. Clinical correlation is recommended Armen Stewart MD 09/01/2018 06:22 PM
[2018-09-01] MEDS: SPIRONOLACTONE 25 MG TABLET (FP) PO SCH (19:00)
[2018-09-01] MEDS: ATORVASTATIN CA 20 MG TABLET (FP) PO SCH (22:42)
[2018-09-02] MEDS: INSULIN SLIDING SCALE (NOVOLOG) 1 VIAL SQ SCH ×3 (06:18→17:40)
[2018-09-02] MEDS: FUROSEMIDE 40 MG/4 ML INJECTABLE VIAL IVPUSH SCH ×2 (06:19→15:48)
[2018-09-02] MEDS: REPAGLINIDE 1 MG TABLET PO SCH ×3 (06:19→17:41)
[2018-09-02 06:42] LABS: BASO % 0.9 % (0-2.0); EOS % 5.3 % (0-4.5); HEMATOCRIT 29.3 % (32.4-45.2); HEMOGLOBIN 9.5 GM/dL (10.7-15.3); MCHC 32.3 g/dl (32.0-36.0); MEAN CELL VOLUME 86.8 fl (80-96); MEAN PLT VOLUME 9.6 fl (7.5-11.1); NEUT % 71.8 % (42.8-82.8); PLATELET COUNT 199 K/MM3 (134-434); RBC 3.37 M/mm3 (3.60-5.2); RDW 15.7 % (11.6-15.6); WHITE BLOOD COUNT 7.3 K/mm3 (4.0-10.0)
[2018-09-02 07:15] LABS: ALK PHOS 55 U/L (45-117); ANION GAP 6 MMOL/L (8-16); BILIRUBIN,TOTAL 0.3 mg/dL (0.2-1); BLOOD UREA NITROGEN 30 mg/dL (7-18); CHLORIDE 100 mmol/L (98-107); CO2 39 mmol/L (21-32); CREATININE 1.1 mg/dL (0.55-1.3); GLUCOSE,RANDOM 124 mg/dL (74-106); POTASSIUM 3.5 mmol/L (3.5-5.1); SGOT/AST 17 U/L (15-37); SGPT/ALT 13 U/L (13-61); SODIUM 144 mmol/L (136-145); TOT PROT 5.9 g/dl (6.4-8.2)
[2018-09-02] MEDS: ALBUTEROL SO4 0.083% IH SOL 2.5 MG/3 ML VIAL.NEB. NEB PRN ×3 (07:45→16:15)
--- NOTE | 2018-09-02 07:47 | PN ---
Physical Exam: SUBJECTIVE: Patient seen and examined at bedside this morning. Admits that her breathing is improving. She endorses that she has not had bowel movement for the past 4 days. Denies subjective fevers, chills, chest pain, palpitations, abdominal pain, nausea, vomiting. OBJECTIVE: Vital Signs Period Temp Pulse Resp BP Sys/Mo Pulse Ox Last 24 Hr 98 F-99.4 F 60-71 20-27 141-171/56-70 92-100 GENERAL: The patient is awake, alert, and fully oriented, in no acute distress. On 2L nasal canula. HEAD: Normocephalic, atraumatic. EYES: PERRL, extraocular movements intact, sclera anicteric, conjunctiva clear. ENT: Oropharynx clear without exudates, moist mucous membranes. NECK: Trachea midline, supple without lymphadenopathy. LUNGS: Good inspiratory effort, poor air entry bilaterally. Wheezing and fine crackles auscultated bilateral lower lobes. No accessory muscle use. HEART: Regular rate and rhythm, S1, S2 auscultated with 3/6 systolic ejection murmur radiating to carotids bilaterally. ABDOMEN: Obese. Soft, nondistended, nontender to light and deep palpation X4 quadrants. No guarding, no rebound tenderness. Normoactive bowel sounds x4 quadrants. EXTREMITIES: 2+ radial, dorsalis pedis pulses bilaterally. Warm, well-perfused. 1+ bilateral lower extremity edema. NEUROLOGICAL: Cranial nerves II through XII grossly intact. Normal speech. PSYCH: Normal mood, normal affect upon my encounter. SKIN: Warm, dry. Laboratory Results - last 24 hr 08/31/18 09/01/18 09/01/18 06:58 11:37 17:55 WBC RBC Hgb Hct MCV MCH MCHC RDW Plt Count MPV Absolute Neuts (auto) Neutrophils % Lymphocytes % Monocytes % Eosinophils % Basophils % Nucleated RBC % Sodium Potassium Chloride Carbon Dioxide Anion Gap BUN Creatinine Creat Clearance w eGFR POC Glucometer 139 194 145 Random Glucose Calcium Total Bilirubin AST ALT Alkaline Phosphatase Total Protein Albumin 09/01/18 09/02/18 09/02/18 21:43 05:30 05:30 WBC 7.3 RBC 3.37 L Hgb 9.5 L Hct 29.3 L MCV 86.8 MCH 28.0 MCHC 32.3 RDW 15.7 H Plt Count 199 MPV 9.6 Absolute Neuts (auto) 5.2 Neutrophils % 71.8 Lymphocytes % 12.0 Monocytes % 10.0 Eosinophils % 5.3 H D Basophils % 0.9 Nucleated RBC % 0 Sodium 144 Potassium 3.5 Chloride 100 Carbon Dioxide 39 H Anion Gap 6 L BUN 30 H Creatinine 1.1 Creat Clearance w eGFR 47.43 POC Glucometer 154 Random Glucose 124 H Calcium 8.0 L Total Bilirubin 0.3 AST 17 ALT 13 Alkaline Phosphatase 55 Total Protein 5.9 L Albumin 3.0 L 09/02/18 05:56 WBC RBC Hgb Hct MCV MCH MCHC RDW Plt Count MPV Absolute Neuts (auto) Neutrophils % Lymphocytes % Monocytes % Eosinophils % Basophils % Nucleated RBC % Sodium Potassium Chloride Carbon Dioxide Anion Gap BUN Creatinine Creat Clearance w eGFR POC Glucometer 127 Random Glucose Calcium Total Bilirubin AST ALT Alkaline Phosphatase Total Protein Albumin Active Medications Generic Name Dose Route Start Last Admin Trade Name Freq PRN Reason Stop Dose Admin Acetaminophen 650 mg 08/30/18 08:35 09/01/18 16:09 Tylenol - PO 650 mg Q6H PRN Administration pain 1-3 Albuterol Sulfate 1 amp 08/29/18 18:56 09/01/18 16:20 Ventolin 0.083% Nebulizer Soln - NEB 1 amp Q6H PRN Administration SHORT OF BREATH/WHEEZING Amlodipine Besylate 10 mg 08/30/18 10:00 09/01/18 09:43 Norvasc - PO 10 mg DAILY PK Administration Apixaban 5 mg 08/29/18 22:00 09/01/18 23:03 Eliquis - PO 5 mg BID PK Administration Atorvastatin Calcium 20 mg 08/30/18 22:00 09/01/18 22:42 Lipitor - PO 20 mg HS PK Administration Docusate Sodium 100 mg 09/02/18 10:00 Colace - PO DAILY PK Ferrous Sulfate 325 mg 08/29/18 22:00 09/01/18 22:43 Feosol - PO 325 mg BID PK Administration Furosemide 80 mg 08/31/18 14:00 09/02/18 06:19 Lasix Injection - IVPUSH 80 mg BID@0600,1400 PK Administration Ceftriaxone Sodium 1 gm/ 50 mls @ 100 mls/hr 08/31/18 10:00 09/01/18 09:41 Dextrose IVPB 100 mls/hr DAILY PK Administration Insulin Aspart 1 vial 08/29/18 22:00 09/02/18 06:18 Novolog Vial Sliding Scale - SQ Not Given ACHS PK Protocol Lisinopril 40 mg 08/30/18 10:00 09/01/18 09:43 Prinivil PO 40 mg DAILY PK Administration Lorazepam 0.5 mg 08/30/18 15:26 08/30/18 20:54 Ativan - PO 0.5 mg Q24H PRN Administration ANXIETY Nebivolol 5 mg 08/30/18 10:00 09/01/18 09:44 Bystolic - PO 5 mg DAILY PK Administration Pantoprazole Sodium 40 mg 08/30/18 10:00 09/01/18 09:43 Protonix - PO 40 mg DAILY PK Administration Polyethylene Glycol 17 gm 09/02/18 10:00 Miralax (For Daily Use) - PO DAILY PK Repaglinide 1 mg 08/29/18 19:15 09/02/18 06:19 Prandin - PO 1 mg TIDAC PK Administration Fluticasone/Salmeterol 1 puff 08/29/18 22:00 09/01/18 23:01 Advair 100mcg/50mcg - IH 1 puff BID PK Administration Sertraline HCl 50 mg 08/30/18 10:00 09/01/18 09:43 Zoloft - PO 50 mg DAILY PK Administration Spironolactone 25 mg 09/01/18 19:00 09/01/18 19:00 Aldactone - PO 25 mg DAILY PK Administration ASSESSMENT/PLAN: Patient is an 82 year old female with history of asthma, COPD, Afib (on Elequis ) DM, HTN, HLD, arthritis, presents with complaint of shortness of breath for the past 3 days prior to admission. Acute on chronic hypoxic respiratory failure -Likely secondary to CHF exacerbation. BNP 4578 -CXR shows bilateral lower lobe effusions -Lasix 80mg IV BID -Duonebs QID, and Q4H PRN -Advair 1 puff BID -Cardiology consult (Dr. Stewart) appreciated. -Cardiac ECHO shows EF 65- 70%, with normal LV size, thickness, function. Mild MR, TR. Mild to severe aortic valve thickening; severe aortic stenosis. -Monitor intake, output, daily weights -1 Liter daily fluid restriction Urinary tract infection -Urine culture grows Proteus mirabilis, Group D streptococcus -Ceftriaxone 1 gram IV daily (day #3) -ID consult (Dr. Louis) Afib -Eliquis 5mg PO BID -Rate control with Nebivolol 5mg PO daily HTN -Amlodipine 10mg daily -Lisinopril 40mg daily -Spironolactone 25mg PO daily HLD -Lipitor 20mg PO QHS Anxiety, depression -Sertaline 50mg daily DM -A1c is 7.8% -ISS ACHS -BGM ACHS FEN -No IV fluids -Follow CMP -Sodium restricted diet Prophylaxis -On Eliquis 5mg BID for Afib -Protonix 40mg PO daily Disposition -Continue care in medical surgical floor Visit type - Emergency Visit Emergency Visit: Yes ED Registration Date: 08/30/18 Care time: The patient presented to the Emergency Department on the above date and was hospitalized for further evaluation of their emergent condition. - New Patient This patient is new to me today: No - Critical Care Critical Care patient: No - Discharge Referral Referred to [facility] Med P.C.: No
[2018-09-02] MEDS ORDERED: cefTRIAXone SODIUM 1 GM VIAL ONE (09:38)
[2018-09-02] MEDS ORDERED: DEXTROSE 5%-WATER - 50 ML IVPB ONE (09:39)
[2018-09-02] MEDS: SERTRALINE HCL 50 MG TABLET (FP) PO SCH (09:45)
[2018-09-02] MEDS: amLODIPine BESYLATE 10 MG TABLET (FP) PO SCH (09:45)
[2018-09-02] MEDS: APIXABAN 5 MG TABLET PO SCH ×2 (09:45→22:03)
[2018-09-02] MEDS: DOCUSATE SODIUM 100 MG CAPSULE (FP) PO SCH (09:45)
[2018-09-02] MEDS: FERROUS SO4 325 MG TABLET (FP) PO SCH ×2 (09:45→22:03)
[2018-09-02] MEDS: LISINOPRIL 20 MG TABLET (FP) PO SCH (09:45)
[2018-09-02] MEDS: PANTOPRAZOLE 40 MG TABLET (FP) PO SCH (09:45)
[2018-09-02] MEDS: CEFTRIAXONE 1 GM in DEXTROSE 5%-WATER - 50 ML IVPB SCH (09:47)
[2018-09-02] MEDS: SPIRONOLACTONE 25 MG TABLET (FP) PO SCH (09:47)
[2018-09-02] MEDS ORDERED: PT OWN MED DRAWER 7, Y5N ONE ×2 (09:53→12:04)
[2018-09-02] MEDS: FLUTICASONE/SALMETEROL 100 MCG/50 MCG DISKUS IH SCH (09:54)
[2018-09-02] MEDS ORDERED: POLYETHYLENE GLYCOL 3350 119 GM BTL PO SCH (10:00)
[2018-09-02] MEDS ORDERED: INSULIN (NOVOLOG) ASPART 100 UNITS/ML 10ML VIAL ONE (10:42)
--- NOTE | 2018-09-02 12:57 | PN ---
Progress Note, Physician Chief Complaint: Events noted Dyspea intermittently but better than when she came in History of Present Illness: Patient was seen and examined. Awake and alert. Chart was reviewed Denies chest pain. Improved dyspnea but still persists intermittently. Denies palpitations Echocardiography suggests worsening of - Current Medication List Current Medications: Active Medications Acetaminophen (Tylenol -) 650 mg PO Q6H PRN PRN Reason: pain 1-3 Last Admin: 09/01/18 16:09 Dose: 650 mg Albuterol Sulfate (Ventolin 0.083% Nebulizer Soln -) 1 amp NEB Q6H PRN PRN Reason: SHORT OF BREATH/WHEEZING Last Admin: 09/02/18 11:40 Dose: 1 amp Amlodipine Besylate (Norvasc -) 10 mg PO DAILY [facility] Last Admin: 09/02/18 09:45 Dose: 10 mg Apixaban (Eliquis -) 5 mg PO BID [facility] Last Admin: 09/02/18 09:45 Dose: 5 mg Atorvastatin Calcium (Lipitor -) 20 mg PO HS [facility] Last Admin: 09/01/18 22:42 Dose: 20 mg Docusate Sodium (Colace -) 100 mg PO DAILY [facility] Last Admin: 09/02/18 09:45 Dose: 100 mg Ferrous Sulfate (Feosol -) 325 mg PO BID [facility] Last Admin: 09/02/18 09:45 Dose: 325 mg Furosemide (Lasix Injection -) 80 mg IVPUSH BID@0600,1400 [facility] Last Admin: 09/02/18 06:19 Dose: 80 mg Ceftriaxone Sodium 1 gm/ (Dextrose) 50 mls @ 100 mls/hr IVPB DAILY [facility] Last Admin: 09/02/18 09:47 Dose: 100 mls/hr Insulin Aspart (Novolog Vial Sliding Scale -) 1 vial SQ ACHS [facility]; Protocol Last Admin: 09/02/18 12:06 Dose: 2 units Lisinopril (Prinivil) 40 mg PO DAILY [facility] Last Admin: 09/02/18 09:45 Dose: 40 mg Lorazepam (Ativan -) 0.5 mg PO Q24H PRN PRN Reason: ANXIETY Last Admin: 08/30/18 20:54 Dose: 0.5 mg Nebivolol (Bystolic -) 5 mg PO DAILY [facility] Last Admin: 09/01/18 09:44 Dose: 5 mg Pantoprazole Sodium (Protonix -) 40 mg PO DAILY [facility] Last Admin: 09/02/18 09:45 Dose: 40 mg Polyethylene Glycol (Miralax (For Daily Use) -) 17 gm PO DAILY [facility] Last Admin: 09/02/18 09:47 Dose: Not Given Repaglinide (Prandin -) 1 mg PO TIDAC [facility] Last Admin: 09/02/18 12:06 Dose: 1 mg Fluticasone/Salmeterol (Advair 100mcg/50mcg -) 1 puff IH BID [facility] Last Admin: 09/02/18 09:54 Dose: 1 puff Sertraline HCl (Zoloft -) 50 mg PO DAILY [facility] Last Admin: 09/02/18 09:45 Dose: 50 mg Spironolactone (Aldactone -) 25 mg PO DAILY [facility] Last Admin: 09/02/18 09:47 Dose: 25 mg - Objective Vital Signs: Vital Signs Temperature 99 F 09/02/18 10:00 Pulse Rate 83 09/02/18 10:00 Respiratory Rate 20 09/02/18 10:00 Blood Pressure 162/86 09/02/18 10:00 O2 Sat by Pulse Oximetry (%) 93 L 09/02/18 09:03 Eyes: Yes: PERRL HENT: Yes: Atraumatic Neck: Yes: Supple Cardiovascular: Yes: Pulse Irregular, Murmur (JAZMYN), S1, S2 Respiratory: Yes: Diminished Gastrointestinal: Yes: Normal Bowel Sounds, Soft. No: Tenderness Edema: No Additional Findings/Remarks: - Review of Systems Constitutional: denies: Chills, Fever Cardiovascular: reports: Chest Pain. denies: Palpitations, (+) Shortness of Breath Respiratory: reports: Cough. denies: Hemoptysis, Orthopnea, PND, (+) SOB, SOB on Exertion Gastrointestinal: denies: Abdominal Pain, Constipation, Diarrhea, Melena, Nausea , Rectal Bleeding, Vomiting Neurological: denies: Dizziness, Headache, Seizure, Syncope Labs: CBC, BMP 09/02/18 05:30 09/02/18 05:30 Problem List - Problems (1) CHF exacerbation Code(s): I50.9 - HEART FAILURE, UNSPECIFIED Qualifiers: Heart failure type: unspecified Qualified Code(s): I50.9 - Heart failure, unspecified (2) Moderate to severe aortic stenosis Code(s): I35.0 - NONRHEUMATIC AORTIC (VALVE) STENOSIS (3) Acute on chronic diastolic (congestive) heart failure Code(s): I50.33 - ACUTE ON CHRONIC DIASTOLIC (CONGESTIVE) HEART FAILURE (4) Acute on chronic respiratory failure with hypoxemia Code(s): J96.21 - ACUTE AND CHRONIC RESPIRATORY FAILURE WITH HYPOXIA (5) [id number] kidney injury Code(s): N17.9 - ACUTE KIDNEY FAILURE, UNSPECIFIED; N18.9 - CHRONIC KIDNEY DISEASE, UNSPECIFIED Qualifiers: Acute renal failure type: unspecified Chronic kidney disease stage: stage 2 (mild) Qualified Code(s): N17.9 - Acute kidney failure, unspecified; N18.2 - Chronic kidney disease, stage 2 (mild) (6) Anemia Code(s): D64.9 - ANEMIA, UNSPECIFIED Qualifiers: (7) Diastolic dysfunction without heart failure Code(s): I51.9 - HEART DISEASE, UNSPECIFIED (8) Dyspnea Code(s): R06.00 - DYSPNEA, UNSPECIFIED Qualifiers: Dyspnea type: dyspnea on exertion Qualified Code(s): R06.09 - Other forms of dyspnea (9) HTN (hypertension) Code(s): I10 - ESSENTIAL (PRIMARY) HYPERTENSION Qualifiers: Hypertension type: essential hypertension Qualified Code(s): I10 - Essential (primary) hypertension (10) Atrial fibrillation Code(s): I48.91 - UNSPECIFIED ATRIAL FIBRILLATION Qualifiers: Atrial fibrillation type: persistent Qualified Code(s): I48.1 - Persistent atrial fibrillation (11) COPD (chronic obstructive pulmonary disease) Code(s): J44.9 - CHRONIC OBSTRUCTIVE PULMONARY DISEASE, UNSPECIFIED Qualifiers: (12) Diabetes mellitus Code(s): E11.9 - TYPE 2 DIABETES MELLITUS WITHOUT COMPLICATIONS Qualifiers: Diabetes mellitus type: type 2 Diabetes mellitus vermin exterminator insulin use: without intermediate use Diabetes mellitus complication status: without complication Qualified Code(s): E11.9 - Type 2 diabetes mellitus without complications (13) Diastolic dysfunction Code(s): I51.9 - HEART DISEASE, UNSPECIFIED (14) Hypercholesterolemia Code(s): E78.00 - PURE HYPERCHOLESTEROLEMIA, UNSPECIFIED (15) Mitral valve regurgitation Code(s): I34.0 - NONRHEUMATIC MITRAL (VALVE) INSUFFICIENCY Qualifiers: Cardiac valve disease etiology: nonrheumatic Qualified Code(s): I34.0 - Nonrheumatic mitral (valve) insufficiency (16) Tricuspid valve regurgitation Code(s): I07.1 - RHEUMATIC TRICUSPID INSUFFICIENCY Qualifiers: Cardiac valve disease etiology: nonrheumatic Qualified Code(s): I36.1 - Nonrheumatic tricuspid (valve) insufficiency Assessment/Plan 1. Persistent atrial fibrillation with slow ventricular response [id number] score of 7 on DOAC/Eliquis 2. Acute on chronic diastolic heart failure and severe aortic stenosis 3. COPD 4. Type 2 DM 5. Hypertensive heart disease 6. Hypercholesterolemia 7. Chronic kidney disease 8. Anemia 9. Degenerative joint disease post right THR 10. CAD, angina pectoris 11. History of epistaxis PLAN: 1. IV diuresis and Aldactone currently 25 mg QD (previously was on 50 mg) with monitoring renal function and electrolytes 2. Continue Bystolic 5 mg QD. Continue Lisinopril 40 mg QD, Eliquis 5 mg BID, Lipitor 20 mg QHS and Amlodipine 10 mg QD 3. Bronchodilator, oral steroids taper and O2 as needed 4. Repeat echocardiography suggests worsening of aortic valve stenosis prompting reassessment of need for valve replacement. Consider TAVR if clinically feasible and will pursue once she is clinically stable as outpatient 5. Continue present management Armen Steawrt MD
--- NOTE | 2018-09-02 13:50 | PN ---
Teaching Attending Note Name of Resident: Edgard Rivers ATTENDING PHYSICIAN STATEMENT I saw and evaluated the patient. I reviewed the resident's note and discussed the case with the resident. I agree with the resident's findings and plan as documented. SUBJECTIVE: Dyspnea improved. No cough/sputum/hemoptysis/fever/chills OBJECTIVE: Afebrile, Hemodynamically Stable Last Vital Signs Temp Pulse Resp BP Pulse Ox 99 F 83 20 162/86 93 L 09/02/18 10:00 09/02/18 10:00 09/02/18 10:09/02/18 10:09/02/18 09:03 HEENT - Atraumatic, Normocephalic Heart - S1, S2, SM , irregular Lungs - basal crackles Abdomen - Soft, non-tender. Bowel Sounds normal. Extremities - bilateral calf tenderness - no edema. Laboratory Results - last 24 hr 09/01/18 09/01/18 09/02/18 17:55 21:43 05:30 WBC 7.3 RBC 3.37 L Hgb 9.5 L Hct 29.3 L MCV 86.8 MCH 28.0 MCHC 32.3 RDW 15.7 H Plt Count 199 MPV 9.6 Absolute Neuts (auto) 5.2 Neutrophils % 71.8 Lymphocytes % 12.0 Monocytes % 10.0 Eosinophils % 5.3 H D Basophils % 0.9 Nucleated RBC % 0 Sodium Potassium Chloride Carbon Dioxide Anion Gap BUN Creatinine Creat Clearance w eGFR POC Glucometer 145 154 Random Glucose Calcium Total Bilirubin AST ALT Alkaline Phosphatase Total Protein Albumin 09/02/18 09/02/18 09/02/18 05:30 05:56 11:38 WBC RBC Hgb Hct MCV MCH MCHC RDW Plt Count MPV Absolute Neuts (auto) Neutrophils % Lymphocytes % Monocytes % Eosinophils % Basophils % Nucleated RBC % Sodium 144 Potassium 3.5 Chloride 100 Carbon Dioxide 39 H Anion Gap 6 L BUN 30 H Creatinine 1.1 Creat Clearance w eGFR 47.43 POC Glucometer 127 182 Random Glucose 124 H Calcium 8.0 L Total Bilirubin 0.3 AST 17 ALT 13 Alkaline Phosphatase 55 Total Protein 5.9 L Albumin 3.0 L Current Medications Generic Name Dose Route Start Last Admin Trade Name Freq PRN Reason Stop Dose Admin Acetaminophen 650 mg 08/30/18 08:35 09/01/18 16:09 Tylenol - PO 650 mg Q6H PRN Administration pain 1-3 Albuterol Sulfate 1 amp 08/29/18 18:56 09/02/18 11:40 Ventolin 0.083% Nebulizer Soln - NEB 1 amp Q6H PRN Administration SHORT OF BREATH/WHEEZING Amlodipine Besylate 10 mg 08/30/18 10:00 09/02/18 09:45 Norvasc - PO 10 mg DAILY PK Administration Apixaban 5 mg 08/29/18 22:00 09/02/18 09:45 Eliquis - PO 5 mg BID PK Administration Atorvastatin Calcium 20 mg 08/30/18 22:00 09/01/18 22:42 Lipitor - PO 20 mg HS PK Administration Docusate Sodium 100 mg 09/02/18 10:00 09/02/18 09:45 Colace - PO 100 mg DAILY PK Administration Ferrous Sulfate 325 mg 08/29/18 22:00 09/02/18 09:45 Feosol - PO 325 mg BID PK Administration Furosemide 80 mg 08/31/18 14:00 09/02/18 06:19 Lasix Injection - IVPUSH 80 mg BID@0600,1400 PK Administration Ceftriaxone Sodium 1 gm/ 50 mls @ 100 mls/hr 08/31/18 10:00 09/02/18 09:47 Dextrose IVPB 100 mls/hr DAILY PK Administration Insulin Aspart 1 vial 08/29/18 22:00 09/02/18 12:06 Novolog Vial Sliding Scale - SQ 2 units ACHS PK Administration Protocol Lisinopril 40 mg 08/30/18 10:00 09/02/18 09:45 Prinivil PO 40 mg DAILY PK Administration Lorazepam 0.5 mg 08/30/18 15:26 08/30/18 20:54 Ativan - PO 0.5 mg Q24H PRN Administration ANXIETY Nebivolol 5 mg 08/30/18 10:00 09/01/18 09:44 Bystolic - PO 5 mg DAILY PK Administration Pantoprazole Sodium 40 mg 08/30/18 10:00 09/02/18 09:45 Protonix - PO 40 mg DAILY PK Administration Polyethylene Glycol 17 gm 09/02/18 10:00 09/02/18 09:47 Miralax (For Daily Use) - PO Not Given DAILY PK Repaglinide 1 mg 08/29/18 19:15 09/02/18 12:06 Prandin - PO 1 mg TIDAC PK Administration Fluticasone/Salmeterol 1 puff 08/29/18 22:00 09/02/18 09:54 Advair 100mcg/50mcg - IH 1 puff BID PK Administration Sertraline HCl 50 mg 08/30/18 10:00 09/02/18 09:45 Zoloft - PO 50 mg DAILY PK Administration Spironolactone 25 mg 09/01/18 19:00 09/02/18 09:47 Aldactone - PO 25 mg DAILY PK Administration ASSESSMENT AND PLAN: 82 year old female with history of Chronic Diastolic CHF, Atrial Fibrillation ( on Eliquis), DM 2, CRF sec to COPD on 2L NC, DJD s/p R THR, Pulmonary HTN, presented with progressively worsening SOB and non productive cough x 3 days. 1. Acute on Chronic Diastolic CHF/Severe BNP 4578 CXR - Bilateral effusions. Clinically improved with IV Lasix diuresis 80 mg BID - will continue Daily Weight, I/Os. 2. UTI - Urine Cx positive for Proteus and Strep bovis - on Day 3 Ceftriaxone. Will consult ID for optimal Abx choice and duration. 3. Hypokalemia - repleted. 4. HTN - Continue Nebivolol, Lisinopril, Norvasc, Spironolactone. 5. Atrial Fibrillation - Continue Nebivolol and Eliquis. 6. DM 2 - Continue Prandin and Levemir/Sliding scale. 7. Bilateral calf tenderness, unlikely DVT - will request Duplex to exclude DVT. 8. Chronic Respiratory Failure secondary to COPD - appears stable, no evidence of acute exacerbation. Continue Advair. 9. Severe Aortic Stenosis - worsening on Echo. For out-patient eval for possible TAVR 10. HLD - Continue Statin. DVT Px - on Eliquis
[2018-09-02] MEDS: NEBIVOLOL 5 MG TABLET (FP) PO SCH (14:00)
--- NOTE | 2018-09-02 17:23 | PN ---
Progress Note (short form) - Note Progress Note: ID consult dictated imp/reccd 82 yo female with afib, aortic stenosis admitted with SOB treated for CHF on 08/29 had low grade fever 100.6 blood culture/urine culture sent reports she had dysuria before that is resolved day #3 Rocephin-plan 7 days would continue she has anemia and has strep bovis in her urine would consider GI workup if she has not had one in the past Problem List - Problems (1) CHF exacerbation Code(s): I50.9 - HEART FAILURE, UNSPECIFIED Qualifiers: Heart failure type: unspecified Qualified Code(s): I50.9 - Heart failure, unspecified (2) UTI (urinary tract infection) Code(s): N39.0 - URINARY TRACT INFECTION, SITE NOT SPECIFIED (3) Moderate to severe aortic stenosis Code(s): I35.0 - NONRHEUMATIC AORTIC (VALVE) STENOSIS
--- NOTE | 2018-09-02 18:59 | CONS ---
DATE OF CONSULTATION: DATE OF DICTATION: 09/02/2018 CONSULTATION REQUESTED BY: Hospitalist Service HISTORY OF PRESENT ILLNESS: The patient is an 82-year-old woman with a history of atrial fibrillation, congestive heart failure, pulmonary hypertension and aortic stenosis who was admitted with lower extremity swelling and three days of shortness of breath. She uses oxygen at home intermittently. She had been using it every day without any improvement. She denied any fevers or chills. She came to the emergency room where she was felt to be in heart failure and was treated with diuretics. She was admitted to the hospital on August 29, 2018. On the day of admission, she was noted to have a T-max of 100.6. Cultures were done of her urine and blood. Her urine culture grew proteus and Streptococcus bovis. She was subsequently started on ceftriaxone on August 31, 2018 for a urinary tract infection. I am asked to see her for further evaluation. She reports that she is improving. She does note that she had some dysuria on admission that has resolved. She notes that her legs were very swollen and have improved significantly. Her breathing has also improved and reports that her legs are much less swollen. In the emergency room, she got vancomycin and Zosyn. A chest x-ray showed congestion and thereafter, she was treated with diuretics. Then, on August 31, she was placed on Rocephin, now on day three. PAST MEDICAL HISTORY: Notable for atrial fibrillation, a history of congestive heart failure, diabetes, pulmonary hypertension, COPD, asthma and aortic stenosis. She has oxygen at home that she uses intermittently. PAST SURGICAL HISTORY: Notable for the recent revision of a right hip replacement that was done 10 years ago. Since the revision, she has been unable to ambulate and uses a wheelchair. SOCIAL HISTORY: She is originally from [facility]. She has been in this country for 66 years. 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 She has no history of cigarette or substance abuse. She has a daughter who comes and stays with her at night. ALLERGIES: CIPROFLOXACIN. HOME MEDICATIONS: Fluticasone/salmeterol, insulin, simvastatin, Zoloft, Prilosec, Bystolic, Zestril, Lasix, ferrous sulfate, Prandin, Eliquis, Norvasc, ProAir, albuterol nebulizer. REVIEW OF SYSTEMS: She reports improvement in her breathing and in her dysuria. PHYSICAL EXAMINATION: General: She is a pleasant elderly woman in no acute distress. Vital Signs: Current temperature is 99.1, pulse 91, blood pressure 166/65, respiratory rate 20, saturating at 93% on 3 liters. HEENT: Normocephalic. Her eyes are anicteric. Neck: Supple. Lungs: There are bibasilar crackles. Heart: She has a harsh systolic murmur heard throughout the precordium. Abdomen: Soft, nontender. No CVA tenderness. No suprapubic discomfort. Extremities: She has trace edema. LABORATORY DATA: Notable for a white count of 7.3, hemoglobin 9.5, platelets of 199. INR is 1.8. BUN is 30, creatinine is 1.1. LFTs are normal. Urinalysis shows 1+ leukocytes and 26 white cells. Influenza screen was negative. Urine culture showed 100,000 proteus with 40,000 Streptococcus bovis. A chest x-ray shows cardiomegaly with congestion. In summary, this is an 82-year-old woman admitted for CHF who has evidence of a symptomatic urinary tract infection. She is on day 3 of Rocephin; we planned for 7 days. She has anemia and has Streptococcus bovis in her urine at a low colony count of 40,000. Would consider a GI workup as she has not had one in the past. ARABELLA GOLDMAN M.D. [id number]
[2018-09-02] MEDS: ATORVASTATIN CA 20 MG TABLET (FP) PO SCH (22:03)
[2018-09-03] MEDS: FLUTICASONE/SALMETEROL 100 MCG/50 MCG DISKUS IH SCH ×3 (00:10→21:04)
[2018-09-03] MEDS: INSULIN SLIDING SCALE (NOVOLOG) 1 VIAL SQ SCH ×5 (00:11→21:53)
[2018-09-03] MEDS ORDERED: PT OWN MED DRAWER 7, Y5N ONE ×3 (06:05→17:15)
[2018-09-03] MEDS: FUROSEMIDE 40 MG/4 ML INJECTABLE VIAL IVPUSH SCH ×2 (06:22→14:30)
[2018-09-03 06:46] LABS: HEMATOCRIT 30.8 % (32.4-45.2); HEMOGLOBIN 10.1 GM/dL (10.7-15.3); MCH 28.4 pg (25.7-33.7); MCHC 32.7 g/dl (32.0-36.0); MEAN CELL VOLUME 86.8 fl (80-96); MEAN PLT VOLUME 9.4 fl (7.5-11.1); PLATELET COUNT 225 K/MM3 (134-434); RBC 3.54 M/mm3 (3.60-5.2); RDW 15.9 % (11.6-15.6); WHITE BLOOD COUNT 7.6 K/mm3 (4.0-10.0)
[2018-09-03 07:20] LABS: ALBUMIN 3.1 g/dl (3.4-5.0); ALK PHOS 58 U/L (45-117); ANION GAP 6 MMOL/L (8-16); BILIRUBIN,TOTAL 0.5 mg/dL (0.2-1); BLOOD UREA NITROGEN 29 mg/dL (7-18); CALCIUM 8.3 mg/dL (8.5-10.1); CHLORIDE 96 mmol/L (98-107); CO2 39 mmol/L (21-32); CREATININE 1.1 mg/dL (0.55-1.3); GLUCOSE,RANDOM 110 mg/dL (74-106); POTASSIUM 3.4 mmol/L (3.5-5.1); SGOT/AST 31 U/L (15-37); SGPT/ALT 21 U/L (13-61); SODIUM 142 mmol/L (136-145); TOT PROT 6.1 g/dl (6.4-8.2)
[2018-09-03] MEDS: REPAGLINIDE 1 MG TABLET PO SCH ×3 (08:00→17:19)
[2018-09-03] MEDS ORDERED: POTASSIUM CHLORIDE TABS 20 MEQ TABLET.ER (FP) PO ONE (08:00)
[2018-09-03] MEDS ORDERED: DEXTROSE 5%-WATER - 50 ML IVPB ONE (09:16)
[2018-09-03] MEDS ORDERED: cefTRIAXone SODIUM 1 GM VIAL ONE (09:16)
[2018-09-03] MEDS: SERTRALINE HCL 50 MG TABLET (FP) PO SCH (10:21)
[2018-09-03] MEDS: DOCUSATE SODIUM 100 MG CAPSULE (FP) PO SCH (10:21)
[2018-09-03] MEDS: APIXABAN 5 MG TABLET PO SCH ×2 (10:21→21:04)
[2018-09-03] MEDS: CEFTRIAXONE 1 GM in DEXTROSE 5%-WATER - 50 ML IVPB SCH (10:21)
[2018-09-03] MEDS: SPIRONOLACTONE 25 MG TABLET (FP) PO SCH (10:22)
[2018-09-03] MEDS: amLODIPine BESYLATE 10 MG TABLET (FP) PO SCH (10:22)
[2018-09-03] MEDS: POLYETHYLENE GLYCOL 3350 119 GM BTL PO SCH ×2 (10:22→21:52)
[2018-09-03] MEDS: PANTOPRAZOLE 40 MG TABLET (FP) PO SCH (10:22)
[2018-09-03] MEDS: FERROUS SO4 325 MG TABLET (FP) PO SCH ×2 (10:22→21:04)
[2018-09-03] MEDS: LISINOPRIL 20 MG TABLET (FP) PO SCH (10:22)
[2018-09-03] MEDS: NEBIVOLOL 5 MG TABLET (FP) PO SCH (10:23)
--- NOTE | 2018-09-03 13:04 | PN ---
Progress Note, Physician History of Present Illness: Dyspnea improving, c/o constipation for last 4 days. - Current Medication List Current Medications: Active Medications Acetaminophen (Tylenol -) 650 mg PO Q6H PRN PRN Reason: pain 1-3 Last Admin: 09/01/18 16:09 Dose: 650 mg Albuterol Sulfate (Ventolin 0.083% Nebulizer Soln -) 1 amp NEB Q6H PRN PRN Reason: SHORT OF BREATH/WHEEZING Last Admin: 09/02/18 16:15 Dose: 1 amp Amlodipine Besylate (Norvasc -) 10 mg PO DAILY [facility] Last Admin: 09/03/18 10:22 Dose: 10 mg Apixaban (Eliquis -) 5 mg PO BID [facility] Last Admin: 09/03/18 10:21 Dose: 5 mg Atorvastatin Calcium (Lipitor -) 20 mg PO HS [facility] Last Admin: 09/02/18 22:03 Dose: 20 mg Docusate Sodium (Colace -) 100 mg PO DAILY [facility] Last Admin: 09/03/18 10:21 Dose: 100 mg Ferrous Sulfate (Feosol -) 325 mg PO BID [facility] Last Admin: 09/03/18 10:22 Dose: 325 mg Furosemide (Lasix Injection -) 80 mg IVPUSH BID@0600,1400 [facility] Last Admin: 09/03/18 06:22 Dose: 80 mg Ceftriaxone Sodium 1 gm/ (Dextrose) 50 mls @ 100 mls/hr IVPB DAILY [facility] Last Admin: 09/03/18 10:21 Dose: 100 mls/hr Insulin Aspart (Novolog Vial Sliding Scale -) 1 vial SQ ACHS [facility]; Protocol Last Admin: 09/03/18 12:44 Dose: 4 units Lisinopril (Prinivil) 40 mg PO DAILY [facility] Last Admin: 09/03/18 10:22 Dose: 40 mg Nebivolol (Bystolic -) 5 mg PO DAILY [facility] Last Admin: 09/03/18 10:23 Dose: 5 mg Pantoprazole Sodium (Protonix -) 40 mg PO DAILY [facility] Last Admin: 09/03/18 10:22 Dose: 40 mg Polyethylene Glycol (Miralax (For Daily Use) -) 17 gm PO BID [facility] Last Admin: 09/03/18 10:22 Dose: 17 gm Repaglinide (Prandin -) 1 mg PO TIDAC [facility] Last Admin: 09/03/18 12:47 Dose: 1 mg Fluticasone/Salmeterol (Advair 100mcg/50mcg -) 1 puff IH BID [facility] Last Admin: 09/03/18 10:23 Dose: 1 puff Sertraline HCl (Zoloft -) 50 mg PO DAILY [facility] Last Admin: 09/03/18 10:21 Dose: 50 mg Spironolactone (Aldactone -) 25 mg PO DAILY [facility] Last Admin: 09/03/18 10:22 Dose: 25 mg - Objective Vital Signs: Vital Signs Temperature 99.1 F 09/02/18 17:04 Pulse Rate 71 09/03/18 01:00 Respiratory Rate 20 09/03/18 03:00 Blood Pressure 175/65 H 09/03/18 01:00 O2 Sat by Pulse Oximetry (%) 93 L 09/03/18 03:00 Constitutional: Yes: No Distress, Calm Neck: Yes: Supple Cardiovascular: Yes: Pulse Irregular, Murmur (2/6 SM) Respiratory: Yes: Regular, Diminished, On Nasal O2 Gastrointestinal: Yes: Normal Bowel Sounds, Soft Edema: No Labs: CBC, BMP 09/03/18 05:30 09/03/18 05:30 INR, PTT INR 1.80 (0.83-1.09) H 08/30/18 05:30 Problem List - Problems (1) Moderate to severe aortic stenosis Code(s): I35.0 - NONRHEUMATIC AORTIC (VALVE) STENOSIS (2) Acute on chronic diastolic (congestive) heart failure Code(s): I50.33 - ACUTE ON CHRONIC DIASTOLIC (CONGESTIVE) HEART FAILURE (3) Chronic kidney disease (CKD) Code(s): N18.9 - CHRONIC KIDNEY DISEASE, UNSPECIFIED Qualifiers: Chronic kidney disease stage: stage 2 (mild) Qualified Code(s): N18.2 - Chronic kidney disease, stage 2 (mild) (4) HTN (hypertension) Code(s): I10 - ESSENTIAL (PRIMARY) HYPERTENSION Qualifiers: Hypertension type: essential hypertension Qualified Code(s): I10 - Essential (primary) hypertension (5) Atrial fibrillation Code(s): I48.91 - UNSPECIFIED ATRIAL FIBRILLATION Qualifiers: Atrial fibrillation type: persistent Qualified Code(s): I48.1 - Persistent atrial fibrillation (6) COPD (chronic obstructive pulmonary disease) Code(s): J44.9 - CHRONIC OBSTRUCTIVE PULMONARY DISEASE, UNSPECIFIED Qualifiers: COPD type: unspecified COPD Qualified Code(s): J44.9 - Chronic obstructive pulmonary disease, unspecified (7) Hypercholesterolemia Code(s): E78.00 - PURE HYPERCHOLESTEROLEMIA, UNSPECIFIED Assessment/Plan 09/01/2018 Echo: Normal LV size with mild cLVH, normal LVEF 65-70%, mod TRINI, severe CHARI 0.7 cm^2, MG 31 mmHg, mild MT, TR RVSP 69 mmHg 1. Persistent atrial fibrillation with slow ventricular response [id number] score of 7 on DOAC/Eliquis 2. Acute on chronic diastolic heart failure and severe aortic stenosis resolving 3. COPD 4. Type 2 DM 5. Hypertensive heart disease 6. Hypercholesterolemia 7. Chronic kidney disease 8. Anemia 9. Degenerative joint disease post right THR 10. CAD, angina pectoris 11. History of epistaxis PLAN: 1. Decrease IV diuresis Lasix 40 bid and increase Aldactone 50 mg QD with monitoring renal function and electrolytes, replete K 2. Continue Bystolic 5 mg QD, Lisinopril 40 mg QD, Eliquis 5 mg BID, Lipitor 20 mg QHS and Amlodipine 10 mg QD 3. Bronchodilator, oral steroids taper and O2 as needed 4. Repeat echocardiography suggests worsening of aortic valve stenosis prompting reassessment of need for valve replacement. Consider TAVR if clinically feasible and will pursue once she is clinically stable as outpatient 5. OOB to chair, bowel regimen
--- NOTE | 2018-09-03 13:22 | PN ---
Teaching Attending Note Name of Resident: Edgard Rivers ATTENDING PHYSICIAN STATEMENT I saw and evaluated the patient. I reviewed the resident's note and discussed the case with the resident. I agree with the resident's findings and plan as documented. SUBJECTIVE: Dyspnea improving. Dysuria resolved. No cough/sputum/hemoptysis/ fever/chills OBJECTIVE: Afebrile, Hemodynamically Stable Last Vital Signs Temp Pulse Resp BP Pulse Ox 99.1 F 71 20 175/65 H 93 L 09/02/18 17:04 09/03/18 01:00 09/03/18 03:00 09/03/18 01:00 09/03/18 03:00 HEENT - Atraumatic, Normocephalic Heart - S1, S2, SM , irregular Lungs - basal crackles Abdomen - Soft, non-tender. Bowel Sounds normal. Extremities - bilateral calf tenderness - trace edema. Laboratory Results - last 24 hr 09/02/18 09/02/18 09/03/18 17:39 23:57 05:30 WBC 7.6 RBC 3.54 L Hgb 10.1 L Hct 30.8 L MCV 86.8 MCH 28.4 MCHC 32.7 RDW 15.9 H Plt Count 225 MPV 9.4 Sodium Potassium Chloride Carbon Dioxide Anion Gap BUN Creatinine Creat Clearance w eGFR POC Glucometer 145 209 Random Glucose Calcium Total Bilirubin AST ALT Alkaline Phosphatase Total Protein Albumin 09/03/18 09/03/18 09/03/18 05:30 06:35 12:38 WBC RBC Hgb Hct MCV MCH MCHC RDW Plt Count MPV Sodium 142 Potassium 3.4 L Chloride 96 L Carbon Dioxide 39 H Anion Gap 6 L BUN 29 H Creatinine 1.1 Creat Clearance w eGFR 47.43 POC Glucometer 88 209 Random Glucose 110 H Calcium 8.3 L Total Bilirubin 0.5 AST 31 ALT 21 Alkaline Phosphatase 58 Total Protein 6.1 L Albumin 3.1 L Current Medications Generic Name Dose Route Start Last Admin Trade Name Freq PRN Reason Stop Dose Admin Acetaminophen 650 mg 08/30/18 08:35 09/01/18 16:09 Tylenol - PO 650 mg Q6H PRN Administration pain 1-3 Albuterol Sulfate 1 amp 08/29/18 18:56 09/02/18 16:15 Ventolin 0.083% Nebulizer Soln - NEB 1 amp Q6H PRN Administration SHORT OF BREATH/WHEEZING Amlodipine Besylate 10 mg 08/30/18 10:00 09/03/18 10:22 Norvasc - PO 10 mg DAILY PK Administration Apixaban 5 mg 08/29/18 22:00 09/03/18 10:21 Eliquis - PO 5 mg BID PK Administration Atorvastatin Calcium 20 mg 08/30/18 22:00 09/02/18 22:03 Lipitor - PO 20 mg HS PK Administration Docusate Sodium 100 mg 09/02/18 10:00 09/03/18 10:21 Colace - PO 100 mg DAILY PK Administration Ferrous Sulfate 325 mg 08/29/18 22:00 09/03/18 10:22 Feosol - PO 325 mg BID PK Administration Furosemide 80 mg 08/31/18 14:00 09/03/18 06:22 Lasix Injection - IVPUSH 80 mg BID@0600,1400 PK Administration Ceftriaxone Sodium 1 gm/ 50 mls @ 100 mls/hr 08/31/18 10:00 09/03/18 10:21 Dextrose IVPB 100 mls/hr DAILY PK Administration Insulin Aspart 1 vial 08/29/18 22:00 09/03/18 12:44 Novolog Vial Sliding Scale - SQ 4 units ACHS PK Administration Protocol Lisinopril 40 mg 08/30/18 10:00 09/03/18 10:22 Prinivil PO 40 mg DAILY PK Administration Nebivolol 5 mg 08/30/18 10:00 09/03/18 10:23 Bystolic - PO 5 mg DAILY PK Administration Pantoprazole Sodium 40 mg 08/30/18 10:00 09/03/18 10:22 Protonix - PO 40 mg DAILY PK Administration Polyethylene Glycol 17 gm 09/03/18 10:00 09/03/18 10:22 Miralax (For Daily Use) - PO 17 gm BID PK Administration Repaglinide 1 mg 08/29/18 19:15 09/03/18 12:47 Prandin - PO 1 mg TIDAC PK Administration Fluticasone/Salmeterol 1 puff 08/29/18 22:00 09/03/18 10:23 Advair 100mcg/50mcg - IH 1 puff BID PK Administration Sertraline HCl 50 mg 08/30/18 10:00 04/10/19 10:21 Zoloft - PO 50 mg DAILY PK Administration Spironolactone 25 mg 09/01/18 19:00 09/03/18 10:22 Aldactone - PO 25 mg DAILY PK Administration ASSESSMENT AND PLAN: 82 year old female with history of Chronic Diastolic CHF, Atrial Fibrillation ( on Eliquis), DM 2, CRF sec to COPD on 2L NC, DJD s/p R THR, Pulmonary HTN, presented with progressively worsening SOB and non productive cough x 3 days. 1. Acute on Chronic Diastolic CHF/Severe BNP 4578 CXR - Bilateral effusions. Clinically improved with IV Lasix diuresis - will continue Daily Weight, I/Os. 2. UTI - Urine Cx positive for Proteus and Strep bovis - on Day 4 Ceftriaxone. ID following. GI work-up/Colonoscopy as out-patient. 3. Hypokalemia - persistent, will replete 4. HTN - Continue Nebivolol, Lisinopril, Norvasc, Spironolactone. 5. Atrial Fibrillation - Continue Nebivolol and Eliquis. 6. DM 2 - Continue Prandin and Levemir/Sliding scale. 7. Bilateral calf tenderness - Duplex LEs negative berkowitz for DVT 8. Chronic Respiratory Failure secondary to COPD - appears stable, no evidence of acute exacerbation. Continue Advair. 9. Severe Aortic Stenosis - worsening on Echo. For out-patient eval for possible TAVR. 10. HLD - Continue Statin. 11. Depression - stable - continue Zoloft. DVT Px - on Eliquis
--- NOTE | 2018-09-03 13:39 | PN ---
Physical Exam: SUBJECTIVE: Patient seen and examined at bedside this morning. She endorses improvement of her shortness of breath, and bilateral lower extremity swelling. She states she has not yet had a bowel movement for past several days. Denies subjective fevers, chills, shortness of breath, chest pain, palpitations, abdominal pain, nausea, vomiting. OBJECTIVE: Vital Signs Period Temp Pulse Resp BP Sys/Mo Pulse Ox Last 24 Hr 98.9 F-99.1 F 60-91 20-20 152-175/57-85 93-93 GENERAL: The patient is awake, alert, and fully oriented, in no acute distress. On 2L nasal canula. HEAD: Normocephalic, atraumatic. EYES: PERRL, extraocular movements intact, sclera anicteric, conjunctiva clear. ENT: Oropharynx clear without exudates, moist mucous membranes. NECK: Trachea midline, supple without lymphadenopathy. LUNGS: Good inspiratory effort, poor air entry bilaterally. Wheezing and fine crackles auscultated bilateral lower lobes. No accessory muscle use. HEART: Regular rate and rhythm, S1, S2 auscultated with 3/6 systolic ejection murmur radiating to carotids bilaterally. ABDOMEN: Obese. Soft, nondistended, nontender to light and deep palpation X4 quadrants. No guarding, no rebound tenderness. Normoactive bowel sounds x4 quadrants. EXTREMITIES: 2+ radial, dorsalis pedis pulses bilaterally. Warm, well-perfused. 1+ bilateral lower extremity edema. NEUROLOGICAL: Cranial nerves II through XII grossly intact. Normal speech. PSYCH: Normal mood, normal affect upon my encounter. SKIN: Warm, dry. Laboratory Results - last 24 hr 09/02/18 09/02/18 09/03/18 17:39 23:57 05:30 WBC 7.6 RBC 3.54 L Hgb 10.1 L Hct 30.8 L MCV 86.8 MCH 28.4 MCHC 32.7 RDW 15.9 H Plt Count 225 MPV 9.4 Sodium Potassium Chloride Carbon Dioxide Anion Gap BUN Creatinine Creat Clearance w eGFR POC Glucometer 145 209 Random Glucose Calcium Total Bilirubin AST ALT Alkaline Phosphatase Total Protein Albumin 09/03/18 09/03/18 09/03/18 05:30 06:35 12:38 WBC RBC Hgb Hct MCV MCH MCHC RDW Plt Count MPV Sodium 142 Potassium 3.4 L Chloride 96 L Carbon Dioxide 39 H Anion Gap 6 L BUN 29 H Creatinine 1.1 Creat Clearance w eGFR 47.43 POC Glucometer 88 209 Random Glucose 110 H Calcium 8.3 L Total Bilirubin 0.5 AST 31 ALT 21 Alkaline Phosphatase 58 Total Protein 6.1 L Albumin 3.1 L Active Medications Generic Name Dose Route Start Last Admin Trade Name Freq PRN Reason Stop Dose Admin Acetaminophen 650 mg 08/30/18 08:35 09/01/18 16:09 Tylenol - PO 650 mg Q6H PRN Administration pain 1-3 Albuterol Sulfate 1 amp 08/29/18 18:56 09/02/18 16:15 Ventolin 0.083% Nebulizer Soln - NEB 1 amp Q6H PRN Administration SHORT OF BREATH/WHEEZING Amlodipine Besylate 10 mg 08/30/18 10:00 09/03/18 10:22 Norvasc - PO 10 mg DAILY PK Administration Apixaban 5 mg 08/29/18 22:00 09/03/18 10:21 Eliquis - PO 5 mg BID PK Administration Atorvastatin Calcium 20 mg 08/30/18 22:00 09/02/18 22:03 Lipitor - PO 20 mg HS PK Administration Docusate Sodium 100 mg 09/02/18 10:00 09/03/18 10:21 Colace - PO 100 mg DAILY PK Administration Ferrous Sulfate 325 mg 08/29/18 22:00 09/03/18 10:22 Feosol - PO 325 mg BID PK Administration Furosemide 80 mg 08/31/18 14:00 09/03/18 06:22 Lasix Injection - IVPUSH 80 mg BID@0600,1400 PK Administration Ceftriaxone Sodium 1 gm/ 50 mls @ 100 mls/hr 08/31/18 10:00 09/03/18 10:21 Dextrose IVPB 100 mls/hr DAILY PK Administration Insulin Aspart 1 vial 08/29/18 22:00 09/03/18 12:44 Novolog Vial Sliding Scale - SQ 4 units ACHS PK Administration Protocol Lisinopril 40 mg 08/30/18 10:00 09/03/18 10:22 Prinivil PO 40 mg DAILY PK Administration Nebivolol 5 mg 08/30/18 10:00 09/03/18 10:23 Bystolic - PO 5 mg DAILY PK Administration Pantoprazole Sodium 40 mg 08/30/18 10:00 09/03/18 10:22 Protonix - PO 40 mg DAILY PK Administration Polyethylene Glycol 17 gm 09/03/18 10:00 09/03/18 10:22 Miralax (For Daily Use) - PO 17 gm BID PK Administration Repaglinide 1 mg 08/29/18 19:15 09/03/18 12:47 Prandin - PO 1 mg TIDAC PK Administration Fluticasone/Salmeterol 1 puff 08/29/18 22:00 09/03/18 10:23 Advair 100mcg/50mcg - IH 1 puff BID PK Administration Sertraline HCl 50 mg 08/30/18 10:00 09/03/18 10:21 Zoloft - PO 50 mg DAILY PK Administration Spironolactone 25 mg 09/01/18 19:00 09/03/18 10:22 Aldactone - PO 25 mg DAILY PK Administration ASSESSMENT/PLAN: Patient is an 82 year old female with history of asthma, COPD, Afib (on Elequis ) DM, HTN, HLD, arthritis, presents with complaint of shortness of breath for the past 3 days prior to admission. Acute on chronic hypoxic respiratory failure -Likely secondary to CHF exacerbation. BNP 4578 -CXR shows bilateral lower lobe effusions -Lasix decreased to 40mg IV BID -Duonebs QID, and Q4H PRN -Advair 1 puff BID -Cardiology consult (Dr. Stewart) appreciated. -Cardiac ECHO shows EF 65- 70%, with normal LV size, thickness, function. Mild MR, TR. Mild to severe aortic valve thickening; severe aortic stenosis. -Monitor intake, output, daily weights -1 Liter daily fluid restriction Urinary tract infection -Urine culture grows Proteus mirabilis, Group D streptococcus -Ceftriaxone 1 gram IV daily (day #4) -ID consult (Dr. Louis) appreciated -Patient will have outpatient GI follow up Afib -Eliquis 5mg PO BID -Rate control with Nebivolol 5mg PO daily HTN -Amlodipine 10mg daily -Lisinopril 40mg daily -Spironolactone increased to 50mg PO daily HLD -Lipitor 20mg PO QHS Anxiety, depression -Sertaline 50mg daily DM -A1c is 7.8% -ISS ACHS -BGM ACHS Constipation -Miralax 17 grams PO BID -Colace 100mg PO daily FEN -No IV fluids -Follow CMP -Sodium restricted diet Prophylaxis -On Eliquis 5mg BID for Afib -Protonix 40mg PO daily Disposition -Continue care in Telemetry floor Visit type - Emergency Visit Emergency Visit: Yes ED Registration Date: 08/30/18 Care time: The patient presented to the Emergency Department on the above date and was hospitalized for further evaluation of their emergent condition. - New Patient This patient is new to me today: No - Critical Care Critical Care patient: No - Discharge Referral Referred to [facility] Med P.C.: No
[2018-09-03] MEDS ORDERED: FUROSEMIDE 40 MG/4 ML INJECTABLE VIAL IVPUSH SCH (14:38)
[2018-09-03] MEDS: ACETAMINOPHEN 325 MG TABLET (FP) PO PRN (20:38)
[2018-09-03] MEDS: ATORVASTATIN CA 20 MG TABLET (FP) PO SCH (21:04)
[2018-09-04] MEDS: INSULIN SLIDING SCALE (NOVOLOG) 1 VIAL SQ SCH ×4 (06:24→21:48)
[2018-09-04] MEDS: REPAGLINIDE 1 MG TABLET PO SCH ×3 (06:24→17:30)
[2018-09-04 06:34] LABS: HEMATOCRIT 29.6 % (32.4-45.2); HEMOGLOBIN 9.8 GM/dL (10.7-15.3); MCH 28.7 pg (25.7-33.7); MCHC 33.1 g/dl (32.0-36.0); MEAN CELL VOLUME 86.5 fl (80-96); MEAN PLT VOLUME 9.4 fl (7.5-11.1); PLATELET COUNT 211 K/MM3 (134-434); RBC 3.42 M/mm3 (3.60-5.2); RDW 15.8 % (11.6-15.6); WHITE BLOOD COUNT 6.9 K/mm3 (4.0-10.0)
[2018-09-04 06:55] LABS: ALBUMIN 2.8 g/dl (3.4-5.0); ALK PHOS 55 U/L (45-117); ANION GAP 3 MMOL/L (8-16); BILIRUBIN,TOTAL 0.2 mg/dL (0.2-1); BLOOD UREA NITROGEN 31 mg/dL (7-18); CALCIUM 8.6 mg/dL (8.5-10.1); CHLORIDE 97 mmol/L (98-107); CO2 39 mmol/L (21-32); CREATININE 1.1 mg/dL (0.55-1.3); GLUCOSE,RANDOM 141 mg/dL (74-106); POTASSIUM 3.7 mmol/L (3.5-5.1); SGOT/AST 32 U/L (15-37); SGPT/ALT 24 U/L (13-61); SODIUM 139 mmol/L (136-145); TOT PROT 5.9 g/dl (6.4-8.2)
--- NOTE | 2018-09-04 07:47 | PN ---
Physical Exam: SUBJECTIVE: Patient seen and examined at bedside this morning. She endorses brief episode of dizziness, that resolved spontaneously. Telemetry reports PVCs. She endorses improvement with her breathing. Patient states that she had one bowel movement yesterday. Denies shortness of breath, chest pain, palpitations, abdominal pain, nausea, vomiting. OBJECTIVE: Vital Signs Period Temp Pulse Resp BP Sys/Mo Pulse Ox Last 24 Hr 98.3 F-98.9 F 57-569 17-22 122-172/50-94 93-95 GENERAL: The patient is awake, alert, and fully oriented, in no acute distress. On 2L nasal canula. HEAD: Normocephalic, atraumatic. EYES: PERRL, extraocular movements intact, sclera anicteric, conjunctiva clear. ENT: Oropharynx clear without exudates, moist mucous membranes. NECK: Trachea midline, supple without lymphadenopathy. LUNGS: Good inspiratory effort, and air entry bilaterally. Wheezing and fine crackles auscultated bilateral lower lobes. No accessory muscle use. HEART: Regular rate and rhythm, S1, S2 auscultated with 3/6 systolic ejection murmur radiating to carotids bilaterally. ABDOMEN: Obese. Soft, nondistended, nontender to light and deep palpation X4 quadrants. No guarding, no rebound tenderness. Normoactive bowel sounds x4 quadrants. EXTREMITIES: 2+ radial, dorsalis pedis pulses bilaterally. Warm, well-perfused. 1+ bilateral lower extremity edema. NEUROLOGICAL: Cranial nerves II through XII grossly intact. Normal speech. PSYCH: Normal mood, normal affect upon my encounter. SKIN: Warm, dry. Laboratory Results - last 24 hr 09/03/18 09/03/18 09/03/18 12:38 17:21 21:47 WBC RBC Hgb Hct MCV MCH MCHC RDW Plt Count MPV Sodium Potassium Chloride Carbon Dioxide Anion Gap BUN Creatinine Creat Clearance w eGFR POC Glucometer 209 133 163 Random Glucose Calcium Total Bilirubin AST ALT Alkaline Phosphatase Total Protein Albumin 09/04/18 09/04/18 09/04/18 05:30 05:30 06:22 WBC 6.9 RBC 3.42 L Hgb 9.8 L Hct 29.6 L MCV 86.5 MCH 28.7 MCHC 33.1 RDW 15.8 H Plt Count 211 MPV 9.4 Sodium 139 Potassium 3.7 Chloride 97 L Carbon Dioxide 39 H Anion Gap 3 L BUN 31 H Creatinine 1.1 Creat Clearance w eGFR 47.43 POC Glucometer 136 Random Glucose 141 H Calcium 8.6 Total Bilirubin 0.2 AST 32 ALT 24 Alkaline Phosphatase 55 Total Protein 5.9 L Albumin 2.8 L Active Medications Generic Name Dose Route Start Last Admin Trade Name Freq PRN Reason Stop Dose Admin Acetaminophen 650 mg 08/30/18 08:35 09/03/18 20:38 Tylenol - PO 650 mg Q6H PRN Administration pain 1-3 Amlodipine Besylate 10 mg 08/30/18 10:00 09/03/18 10:22 Norvasc - PO 10 mg DAILY PK Administration Apixaban 5 mg 08/29/18 22:00 09/03/18 21:04 Eliquis - PO 5 mg BID PK Administration Atorvastatin Calcium 20 mg 08/30/18 22:00 09/03/18 21:04 Lipitor - PO 20 mg HS PK Administration Docusate Sodium 100 mg 09/02/18 10:00 09/03/18 10:21 Colace - PO 100 mg DAILY PK Administration Ferrous Sulfate 325 mg 08/29/18 22:00 09/03/18 21:04 Feosol - PO 325 mg BID PK Administration Furosemide 40 mg 09/03/18 14:38 09/04/18 06:23 Lasix Injection - IVPUSH 40 mg BID@0600,1400 PK Administration Ceftriaxone Sodium 1 gm/ 50 mls @ 100 mls/hr 08/31/18 10:00 09/03/18 10:21 Dextrose IVPB 100 mls/hr DAILY PK Administration Insulin Aspart 1 vial 08/29/18 22:00 09/04/18 06:24 Novolog Vial Sliding Scale - SQ Not Given ACHS PK Protocol Lisinopril 40 mg 08/30/18 10:00 09/03/18 10:22 Prinivil PO 40 mg DAILY PK Administration Nebivolol 5 mg 08/30/18 10:00 09/03/18 10:23 Bystolic - PO 5 mg DAILY PK Administration Pantoprazole Sodium 40 mg 08/30/18 10:00 09/03/18 10:22 Protonix - PO 40 mg DAILY PK Administration Polyethylene Glycol 17 gm 09/03/18 10:00 09/03/18 21:52 Miralax (For Daily Use) - PO 17 gm BID PK Administration Repaglinide 1 mg 08/29/18 19:15 09/04/18 06:24 Prandin - PO 1 mg TIDAC PK Administration Fluticasone/Salmeterol 1 puff 08/29/18 22:00 09/03/18 21:04 Advair 100mcg/50mcg - IH 1 puff BID PK Administration Sertraline HCl 50 mg 08/30/18 10:00 09/03/18 10:21 Zoloft - PO 50 mg DAILY PK Administration Spironolactone 50 mg 09/03/18 14:40 Aldactone - PO DAILY PK ASSESSMENT/PLAN: Patient is an 82 year old female with history of asthma, COPD, Afib (on Elequis ) DM, HTN, HLD, arthritis, presents with complaint of shortness of breath for the past 3 days prior to admission. Acute on chronic hypoxic respiratory failure -Likely secondary to CHF exacerbation. BNP 4578 -CXR shows bilateral lower lobe effusions -Lasix decreased to 40mg PO daily -Duonebs QID, and Q4H PRN -Advair 1 puff BID -Cardiology consult (Dr. Cline) appreciated. -Cardiac ECHO shows EF 65- 70%, with normal LV size, thickness, function. Mild MR, TR. Mild to severe aortic valve thickening; severe aortic stenosis. -Monitor intake, output, daily weights -1 Liter daily fluid restriction Urinary tract infection -Urine culture grows Proteus mirabilis, Group D streptococcus -Ceftriaxone 1 gram IV daily (day #5) -ID consult (Dr. Louis) appreciated -Patient will have outpatient GI follow up Afib -Eliquis 5mg PO BID -Rate control with Nebivolol 5mg PO daily HTN -Amlodipine 10mg daily -Lisinopril 40mg daily -Spironolactone increased to 50mg PO daily HLD -Lipitor 20mg PO QHS Anxiety, depression -Sertaline 50mg daily DM -A1c is 7.8% -ISS ACHS -BGM ACHS Constipation -Miralax 17 grams PO BID -Colace 100mg PO daily FEN -No IV fluids -Follow CMP -Sodium restricted diet Prophylaxis -On Eliquis 5mg BID for Afib -Protonix 40mg PO daily Disposition -Continue care in Telemetry floor Visit type - Emergency Visit Emergency Visit: Yes ED Registration Date: 08/30/18 Care time: The patient presented to the Emergency Department on the above date and was hospitalized for further evaluation of their emergent condition. - New Patient This patient is new to me today: No - Critical Care Critical Care patient: No - Discharge Referral Referred to [facility] Med P.C.: No
[2018-09-04 08:03] LABS: MAGNESIUM 2.2 mg/dL (1.8-2.4); PHOSPHOROUS 4.3 mg/dL (2.5-4.9)
[2018-09-04] MEDS ORDERED: cefTRIAXone SODIUM 1 GM VIAL ONE (10:15)
[2018-09-04] MEDS ORDERED: DEXTROSE 5%-WATER - 50 ML IVPB ONE (10:15)
[2018-09-04] MEDS: FLUTICASONE/SALMETEROL 100 MCG/50 MCG DISKUS IH SCH (10:39)
[2018-09-04] MEDS: LISINOPRIL 20 MG TABLET (FP) PO SCH (10:40)
[2018-09-04] MEDS: PANTOPRAZOLE 40 MG TABLET (FP) PO SCH (10:40)
[2018-09-04] MEDS: CEFTRIAXONE 1 GM in DEXTROSE 5%-WATER - 50 ML IVPB SCH (10:40)
[2018-09-04] MEDS: FERROUS SO4 325 MG TABLET (FP) PO SCH ×2 (10:40→21:35)
[2018-09-04] MEDS: amLODIPine BESYLATE 10 MG TABLET (FP) PO SCH (10:41)
[2018-09-04] MEDS: SPIRONOLACTONE 25 MG TABLET (FP) PO SCH (10:41)
[2018-09-04] MEDS: DOCUSATE SODIUM 100 MG CAPSULE (FP) PO SCH (10:41)
[2018-09-04] MEDS: SERTRALINE HCL 50 MG TABLET (FP) PO SCH (10:41)
[2018-09-04] MEDS: APIXABAN 5 MG TABLET PO SCH ×2 (10:41→21:35)
[2018-09-04] MEDS: POLYETHYLENE GLYCOL 3350 119 GM BTL PO SCH ×2 (10:42→21:36)
[2018-09-04] MEDS: NEBIVOLOL 5 MG TABLET (FP) PO SCH (10:45)
--- NOTE | 2018-09-04 11:39 | PN ---
Teaching Attending Note Name of Resident: Edgard Rivers ATTENDING PHYSICIAN STATEMENT I saw and evaluated the patient. I reviewed the resident's note and discussed the case with the resident. I agree with the resident's findings and plan as documented. SUBJECTIVE: Dyspnea improved. Dysuria resolved. No cough/sputum/hemoptysis/fever /chills. OBJECTIVE: Afebrile, Hemodynamically Stable Last Vital Signs Temp Pulse Resp BP Pulse Ox 98.3 F 65 18 143/52 L 95 09/04/18 02:00 09/04/18 10:00 09/04/18 11:00 09/04/18 10:00 09/04/18 11:00 Heart - S1, S2, SM , irregular Lungs - good air entry bilaterally, decreased at bases. Abdomen - Soft, non-tender. Bowel Sounds normal. Extremities - bilateral calf tenderness. Laboratory Results - last 24 hr 09/03/18 09/03/18 09/03/18 12:38 17:21 21:47 WBC RBC Hgb Hct MCV MCH MCHC RDW Plt Count MPV Sodium Potassium Chloride Carbon Dioxide Anion Gap BUN Creatinine Creat Clearance w eGFR POC Glucometer 209 133 163 Random Glucose Calcium Phosphorus Magnesium Total Bilirubin AST ALT Alkaline Phosphatase Total Protein Albumin 09/04/18 09/04/18 09/04/18 05:30 05:30 06:22 WBC 6.9 RBC 3.42 L Hgb 9.8 L Hct 29.6 L MCV 86.5 MCH 28.7 MCHC 33.1 RDW 15.8 H Plt Count 211 MPV 9.4 Sodium 139 Potassium 3.7 Chloride 97 L Carbon Dioxide 39 H Anion Gap 3 L BUN 31 H Creatinine 1.1 Creat Clearance w eGFR 47.43 POC Glucometer 136 Random Glucose 141 H Calcium 8.6 Phosphorus 4.3 Magnesium 2.2 Total Bilirubin 0.2 AST 32 ALT 24 Alkaline Phosphatase 55 Total Protein 5.9 L Albumin 2.8 L 09/04/18 11:31 WBC RBC Hgb Hct MCV MCH MCHC RDW Plt Count MPV Sodium Potassium Chloride Carbon Dioxide Anion Gap BUN Creatinine Creat Clearance w eGFR POC Glucometer 243 Random Glucose Calcium Phosphorus Magnesium Total Bilirubin AST ALT Alkaline Phosphatase Total Protein Albumin Current Medications Generic Name Dose Route Start Last Admin Trade Name Freq PRN Reason Stop Dose Admin Acetaminophen 650 mg 08/30/18 08:35 09/03/18 20:38 Tylenol - PO 650 mg Q6H PRN Administration pain 1-3 Amlodipine Besylate 10 mg 08/30/18 10:00 09/04/18 10:41 Norvasc - PO 10 mg DAILY KP Administration Apixaban 5 mg 08/29/18 22:00 09/04/18 10:41 Eliquis - PO 5 mg BID PK Administration Atorvastatin Calcium 20 mg 08/30/18 22:00 09/03/18 21:04 Lipitor - PO 20 mg HS PK Administration Docusate Sodium 100 mg 09/02/18 10:00 09/04/18 10:41 Colace - PO 100 mg DAILY PK Administration Ferrous Sulfate 325 mg 08/29/18 22:00 09/04/18 10:40 Feosol - PO 325 mg BID PK Administration Furosemide 40 mg 09/03/18 14:38 09/04/18 06:23 Lasix Injection - IVPUSH 40 mg BID@0600,1400 PK Administration Ceftriaxone Sodium 1 gm/ 50 mls @ 100 mls/hr 08/31/18 10:00 09/04/18 10:40 Dextrose IVPB 100 mls/hr DAILY PK Administration Insulin Aspart 1 vial 08/29/18 22:00 09/04/18 06:24 Novolog Vial Sliding Scale - SQ Not Given ACHS PK Protocol Lisinopril 40 mg 08/30/18 10:00 09/04/18 10:40 Prinivil PO 40 mg DAILY PK Administration Nebivolol 5 mg 08/30/18 10:00 09/04/18 10:45 Bystolic - PO 5 mg DAILY PK Administration Pantoprazole Sodium 40 mg 08/30/18 10:00 09/04/18 10:40 Protonix - PO 40 mg DAILY PK Administration Polyethylene Glycol 17 gm 09/03/18 10:00 09/04/18 10:42 Miralax (For Daily Use) - PO 17 gm BID PK Administration Repaglinide 1 mg 08/29/18 19:15 09/04/18 06:24 Prandin - PO 1 mg TIDAC PK Administration Fluticasone/Salmeterol 1 puff 08/29/18 22:00 09/04/18 10:39 Advair 100mcg/50mcg - IH 1 puff BID PK Administration Sertraline HCl 50 mg 08/30/18 10:00 09/04/18 10:41 Zoloft - PO 50 mg DAILY PK Administration Spironolactone 50 mg 09/03/18 14:40 09/04/18 10:41 Aldactone - PO 50 mg DAILY PK Administration ASSESSMENT AND PLAN: 82 year old female with history of Chronic Diastolic CHF, Atrial Fibrillation ( on Eliquis), DM 2, CRF sec to COPD on 2L NC, DJD s/p R THR, Pulmonary HTN, presented with progressively worsening SOB and non productive cough x 3 days. 1. Acute on Chronic Diastolic CHF/Severe - improving Echo 09/01/18 - Normal LVEF, mild LVH, Severe BNP 4578 CXR - Bibasal effusions. Clinically improved with IV Lasix diuresis - will discuss with cardiology re: transition to oral Lasix. Daily Weight, I/Os. 2. UTI - Urine Cx positive for Proteus and Strep bovis - on Day 5 Ceftriaxone. ID following. GI work-up/Colonoscopy as out-patient. 3. Hypokalemia - repleted. 4. HTN - Continue Nebivolol, Lisinopril, Norvasc, Spironolactone (dose increased to 50mg). 5. Atrial Fibrillation - Continue Nebivolol and Eliquis. 6. DM 2 - Continue Prandin and Levemir/Sliding scale. 7. Bilateral calf tenderness - Duplex LEs negative berkowitz for DVT 8. Chronic Respiratory Failure secondary to COPD - appears stable, no evidence of acute exacerbation. Continue Advair and supplemental O2. 9. Severe Aortic Stenosis - worsening on Echo. For out-patient eval for possible TAVR. 10. HLD - Continue Statin. 11. Depression - stable - continue Zoloft. DVT Px - on Eliquis Dispo - poor mobility with PT - recommendation for Rehab/SNF, patient declines at this time, will discuss with case management.
--- NOTE | 2018-09-04 12:23 | PN ---
Progress Note, Physician History of Present Illness: Dyspnea improving with diuresis, had BM yesterday. - Current Medication List Current Medications: Active Medications Acetaminophen (Tylenol -) 650 mg PO Q6H PRN PRN Reason: pain 1-3 Last Admin: 09/03/18 20:38 Dose: 650 mg Amlodipine Besylate (Norvasc -) 10 mg PO DAILY [facility] Last Admin: 09/04/18 10:41 Dose: 10 mg Apixaban (Eliquis -) 5 mg PO BID [facility] Last Admin: 09/04/18 10:41 Dose: 5 mg Atorvastatin Calcium (Lipitor -) 20 mg PO HS [facility] Last Admin: 09/03/18 21:04 Dose: 20 mg Docusate Sodium (Colace -) 100 mg PO DAILY [facility] Last Admin: 09/04/18 10:41 Dose: 100 mg Ferrous Sulfate (Feosol -) 325 mg PO BID [facility] Last Admin: 09/04/18 10:40 Dose: 325 mg Furosemide (Lasix Injection -) 40 mg IVPUSH BID@0600,1400 [facility] Last Admin: 09/04/18 06:23 Dose: 40 mg Ceftriaxone Sodium 1 gm/ (Dextrose) 50 mls @ 100 mls/hr IVPB DAILY [facility] Last Admin: 09/04/18 10:40 Dose: 100 mls/hr Insulin Aspart (Novolog Vial Sliding Scale -) 1 vial SQ ACHS [facility]; Protocol Last Admin: 09/04/18 06:24 Dose: Not Given Lisinopril (Prinivil) 40 mg PO DAILY [facility] Last Admin: 09/04/18 10:40 Dose: 40 mg Nebivolol (Bystolic -) 5 mg PO DAILY [facility] Last Admin: 09/04/18 10:45 Dose: 5 mg Pantoprazole Sodium (Protonix -) 40 mg PO DAILY [facility] Last Admin: 09/04/18 10:40 Dose: 40 mg Polyethylene Glycol (Miralax (For Daily Use) -) 17 gm PO BID [facility] Last Admin: 09/04/18 10:42 Dose: 17 gm Repaglinide (Prandin -) 1 mg PO TIDAC [facility] Last Admin: 09/04/18 06:24 Dose: 1 mg Fluticasone/Salmeterol (Advair 100mcg/50mcg -) 1 puff IH BID [facility] Last Admin: 09/04/18 10:39 Dose: 1 puff Sertraline HCl (Zoloft -) 50 mg PO DAILY [facility] Last Admin: 09/04/18 10:41 Dose: 50 mg Spironolactone (Aldactone -) 50 mg PO DAILY [facility] Last Admin: 09/04/18 10:41 Dose: 50 mg - Objective Vital Signs: Vital Signs Temperature 98.8 F 09/04/18 10:00 Pulse Rate 65 09/04/18 10:00 Respiratory Rate 18 09/04/18 11:00 Blood Pressure 143/52 L 09/04/18 10:00 O2 Sat by Pulse Oximetry (%) 95 09/04/18 11:00 Constitutional: Yes: No Distress, Calm Neck: Yes: Supple Cardiovascular: Yes: Pulse Irregular, Murmur (2/6 SM) Respiratory: Yes: Regular, Diminished, On Nasal O2 Gastrointestinal: Yes: Normal Bowel Sounds, Soft Edema: No Labs: CBC, BMP 09/04/18 05:30 09/04/18 05:30 INR, PTT INR 1.80 (0.83-1.09) H 08/30/18 05:30 - ....Imaging Chest X-ray: Report Reviewed (Stable congestion) Problem List - Problems (1) Moderate to severe aortic stenosis Code(s): I35.0 - NONRHEUMATIC AORTIC (VALVE) STENOSIS (2) Acute on chronic diastolic (congestive) heart failure Code(s): I50.33 - ACUTE ON CHRONIC DIASTOLIC (CONGESTIVE) HEART FAILURE (3) Chronic kidney disease (CKD) Code(s): N18.9 - CHRONIC KIDNEY DISEASE, UNSPECIFIED Qualifiers: Chronic kidney disease stage: stage 2 (mild) Qualified Code(s): N18.2 - Chronic kidney disease, stage 2 (mild) (4) HTN (hypertension) Code(s): I10 - ESSENTIAL (PRIMARY) HYPERTENSION Qualifiers: Hypertension type: essential hypertension Qualified Code(s): I10 - Essential (primary) hypertension (5) Atrial fibrillation Code(s): I48.91 - UNSPECIFIED ATRIAL FIBRILLATION Qualifiers: Atrial fibrillation type: persistent Qualified Code(s): I48.1 - Persistent atrial fibrillation (6) COPD (chronic obstructive pulmonary disease) Code(s): J44.9 - CHRONIC OBSTRUCTIVE PULMONARY DISEASE, UNSPECIFIED Qualifiers: COPD type: unspecified COPD Qualified Code(s): J44.9 - Chronic obstructive pulmonary disease, unspecified (7) Hypercholesterolemia Code(s): E78.00 - PURE HYPERCHOLESTEROLEMIA, UNSPECIFIED Assessment/Plan 09/01/2018 Echo: Normal LV size with mild cLVH, normal LVEF 65-70%, mod TRINI, severe CHARI 0.7 cm^2, MG 31 mmHg, mild UT, TR RVSP 69 mmHg 1. Persistent atrial fibrillation with slow ventricular response [id number] score of 7 on DOAC/Eliquis 2. Acute on chronic diastolic heart failure and severe aortic stenosis resolving 3. COPD 4. Type 2 DM 5. Hypertensive heart disease 6. Hypercholesterolemia 7. Chronic kidney disease 8. Anemia 9. Degenerative joint disease post right THR 10. CAD, angina pectoris 11. History of epistaxis 12. Proteus UTI PLAN: 1. Decrease oral diuresis Lasix 40 bid and Aldactone 50 mg QD with monitoring renal function and electrolytes 2. Continue Bystolic 5 mg QD, Lisinopril 40 mg QD, Eliquis 5 mg BID, Lipitor 20 mg QHS and Amlodipine 10 mg QD 3. Bronchodilator, oral steroids taper and O2 as needed 4. Repeat echocardiography suggests worsening of aortic valve stenosis prompting reassessment of need for valve replacement. Consider TAVR if clinically feasible and will pursue once she is clinically stable as outpatient 5. OOB to chair, bowel regimen, complete abx course, d/c planning with f/u with Dr. Stewart
[2018-09-04] MEDS ORDERED: PT OWN MED DRAWER 7, Y5N ONE ×3 (12:58→22:29)
[2018-09-04] MEDS: FUROSEMIDE 40 MG TABLET (FP) PO SCH (15:40)
--- NOTE | 2018-09-04 16:35 | EKG ---
Test Reason : Blood Pressure : / mmHG Vent. Rate : 059 BPM Atrial Rate : 060 BPM P-R Int : 000 ms QRS Dur : 098 ms QT Int : 432 ms P-R-T Axes : 000 -61 038 degrees QTc Int : 427 ms ATRIAL FIBRILLATION WITH SLOW VENTRICULAR RESPONSE LEFT AXIS DEVIATION ANTERIOR INFARCT (CITED ON OR BEFORE 25-FEB-2018) ABNORMAL ECG WHEN COMPARED WITH ECG OF 29-AUG-2018 12:18, NO SIGNIFICANT CHANGE WAS FOUND Confirmed by TRENT MCELROY MD ([id number]) on 09/04/2018 4:35:29 PM Referred By: Confirmed By:TRENT MCELROY MD
[2018-09-04] MEDS: ACETAMINOPHEN 325 MG TABLET (FP) PO PRN (21:35)
[2018-09-04] MEDS: ATORVASTATIN CA 20 MG TABLET (FP) PO SCH (21:49)
[2018-09-05 06:00] LABS: HEMATOCRIT 29.5 % (32.4-45.2); HEMOGLOBIN 9.7 GM/dL (10.7-15.3); MCHC 32.7 g/dl (32.0-36.0); MEAN CELL VOLUME 85.6 fl (80-96); MEAN PLT VOLUME 9.2 fl (7.5-11.1); PLATELET COUNT 219 K/MM3 (134-434); RBC 3.45 M/mm3 (3.60-5.2); RDW 15.8 % (11.6-15.6)
[2018-09-05] MEDS: FUROSEMIDE 40 MG TABLET (FP) PO SCH ×2 (06:33→13:46)
[2018-09-05 06:35] LABS: ALK PHOS 57 U/L (45-117); ANION GAP 6 MMOL/L (8-16); BILIRUBIN,TOTAL 0.3 mg/dL (0.2-1); BLOOD UREA NITROGEN 32 mg/dL (7-18); CALCIUM 8.4 mg/dL (8.5-10.1); CHLORIDE 98 mmol/L (98-107); CO2 38 mmol/L (21-32); CREATININE 1.2 mg/dL (0.55-1.3); GLUCOSE,RANDOM 109 mg/dL (74-106); POTASSIUM 3.7 mmol/L (3.5-5.1); SGOT/AST 31 U/L (15-37); SGPT/ALT 26 U/L (13-61); SODIUM 141 mmol/L (136-145)
[2018-09-05] MEDS: INSULIN SLIDING SCALE (NOVOLOG) 1 VIAL SQ SCH ×4 (06:38→21:35)
[2018-09-05] MEDS: REPAGLINIDE 1 MG TABLET PO SCH ×3 (07:34→17:30)
[2018-09-05] MEDS ORDERED: cefTRIAXone SODIUM 1 GM VIAL ONE (09:35)
[2018-09-05] MEDS ORDERED: PT OWN MED DRAWER 7, Y5N ONE ×2 (09:35→11:09)
[2018-09-05] MEDS ORDERED: DEXTROSE 5%-WATER - 50 ML IVPB ONE (09:35)
[2018-09-05] MEDS: FERROUS SO4 325 MG TABLET (FP) PO SCH ×2 (09:42→21:34)
[2018-09-05] MEDS: amLODIPine BESYLATE 10 MG TABLET (FP) PO SCH (09:42)
[2018-09-05] MEDS: PANTOPRAZOLE 40 MG TABLET (FP) PO SCH (09:42)
[2018-09-05] MEDS: APIXABAN 5 MG TABLET PO SCH ×2 (09:42→21:34)
[2018-09-05] MEDS: DOCUSATE SODIUM 100 MG CAPSULE (FP) PO SCH (09:42)
[2018-09-05] MEDS: SPIRONOLACTONE 25 MG TABLET (FP) PO SCH (09:42)
[2018-09-05] MEDS: LISINOPRIL 20 MG TABLET (FP) PO SCH (09:43)
[2018-09-05] MEDS: SERTRALINE HCL 50 MG TABLET (FP) PO SCH (09:43)
[2018-09-05] MEDS: CEFTRIAXONE 1 GM in DEXTROSE 5%-WATER - 50 ML IVPB SCH (09:43)
[2018-09-05] MEDS: NEBIVOLOL 5 MG TABLET (FP) PO SCH (09:43)
[2018-09-05] MEDS: POLYETHYLENE GLYCOL 3350 119 GM BTL PO SCH ×2 (09:47→21:35)
--- NOTE | 2018-09-05 10:35 | PN ---
Progress Note, Physician History of Present Illness: Dyspnea improving with diuresis, does not want to go to SNF. - Current Medication List Current Medications: Active Medications Acetaminophen (Tylenol -) 650 mg PO Q6H PRN PRN Reason: pain 1-3 Last Admin: 09/04/18 21:35 Dose: 650 mg Amlodipine Besylate (Norvasc -) 10 mg PO DAILY [facility] Last Admin: 09/05/18 09:42 Dose: 10 mg Apixaban (Eliquis -) 5 mg PO BID [facility] Last Admin: 09/05/18 09:42 Dose: 5 mg Atorvastatin Calcium (Lipitor -) 20 mg PO HS [facility] Last Admin: 09/04/18 21:49 Dose: 20 mg Docusate Sodium (Colace -) 100 mg PO DAILY [facility] Last Admin: 09/05/18 09:42 Dose: 100 mg Ferrous Sulfate (Feosol -) 325 mg PO BID [facility] Last Admin: 09/05/18 09:42 Dose: 325 mg Furosemide (Lasix -) 40 mg PO BID@0600,1400 [facility] Last Admin: 09/05/18 06:33 Dose: 40 mg Ceftriaxone Sodium 1 gm/ (Dextrose) 50 mls @ 100 mls/hr IVPB DAILY [facility] Last Admin: 09/05/18 09:43 Dose: 100 mls/hr Insulin Aspart (Novolog Vial Sliding Scale -) 1 vial SQ ACHS [facility]; Protocol Last Admin: 09/05/18 06:38 Dose: Not Given Lisinopril (Prinivil) 40 mg PO DAILY [facility] Last Admin: 09/05/18 09:43 Dose: 40 mg Nebivolol (Bystolic -) 5 mg PO DAILY [facility] Last Admin: 09/05/18 09:43 Dose: 5 mg Pantoprazole Sodium (Protonix -) 40 mg PO DAILY [facility] Last Admin: 09/05/18 09:42 Dose: 40 mg Polyethylene Glycol (Miralax (For Daily Use) -) 17 gm PO BID [facility] Last Admin: 09/05/18 09:47 Dose: 17 gm Repaglinide (Prandin -) 1 mg PO TIDAC [facility] Last Admin: 09/05/18 07:34 Dose: 1 mg Fluticasone/Salmeterol (Advair 100mcg/50mcg -) 1 puff IH BID [facility] Last Admin: 09/04/18 10:39 Dose: 1 puff Sertraline HCl (Zoloft -) 50 mg PO DAILY [facility] Last Admin: 09/05/18 09:43 Dose: 50 mg Spironolactone (Aldactone -) 50 mg PO DAILY [facility] Last Admin: 09/05/18 09:42 Dose: 50 mg - Objective Vital Signs: Vital Signs Temperature 98.7 F 09/05/18 02:00 Pulse Rate 64 09/05/18 08:00 Respiratory Rate 22 H 09/05/18 08:00 Blood Pressure 155/58 L 09/05/18 08:00 O2 Sat by Pulse Oximetry (%) 95 09/04/18 20:00 Constitutional: Yes: No Distress, Calm, Thin Neck: Yes: Supple Cardiovascular: Yes: Pulse Irregular, Murmur (2/6 SM) Respiratory: Yes: Regular, Diminished, On Nasal O2 Gastrointestinal: Yes: Normal Bowel Sounds, Soft Edema: No Labs: CBC, BMP 09/05/18 05:30 09/05/18 05:30 INR, PTT INR 1.80 (0.83-1.09) H 08/30/18 05:30 - ....Imaging EKG: Report Reviewed (Afib @ [facility]) Problem List - Problems (1) Moderate to severe aortic stenosis Code(s): I35.0 - NONRHEUMATIC AORTIC (VALVE) STENOSIS (2) Acute on chronic diastolic (congestive) heart failure Code(s): I50.33 - ACUTE ON CHRONIC DIASTOLIC (CONGESTIVE) HEART FAILURE (3) Chronic kidney disease (CKD) Code(s): N18.9 - CHRONIC KIDNEY DISEASE, UNSPECIFIED Qualifiers: Chronic kidney disease stage: stage 2 (mild) Qualified Code(s): N18.2 - Chronic kidney disease, stage 2 (mild) (4) HTN (hypertension) Code(s): I10 - ESSENTIAL (PRIMARY) HYPERTENSION Qualifiers: Hypertension type: essential hypertension Qualified Code(s): I10 - Essential (primary) hypertension (5) Atrial fibrillation Code(s): I48.91 - UNSPECIFIED ATRIAL FIBRILLATION Qualifiers: Atrial fibrillation type: persistent Qualified Code(s): I48.1 - Persistent atrial fibrillation (6) COPD (chronic obstructive pulmonary disease) Code(s): J44.9 - CHRONIC OBSTRUCTIVE PULMONARY DISEASE, UNSPECIFIED Qualifiers: COPD type: unspecified COPD Qualified Code(s): J44.9 - Chronic obstructive pulmonary disease, unspecified (7) Hypercholesterolemia Code(s): E78.00 - PURE HYPERCHOLESTEROLEMIA, UNSPECIFIED Assessment/Plan 09/01/2018 Echo: Normal LV size with mild cLVH, normal LVEF 65-70%, mod TRINI, severe CHARI 0.7 cm^2, MG 31 mmHg, mild NE, TR RVSP 69 mmHg 1. Persistent atrial fibrillation with slow ventricular response [id number] score of 7 on DOAC/Eliquis 2. Acute on chronic diastolic heart failure and severe aortic stenosis resolving 3. COPD 4. Type 2 DM 5. Hypertensive heart disease 6. Hypercholesterolemia 7. Chronic kidney disease 8. Anemia 9. Degenerative joint disease post right THR 10. CAD, angina pectoris 11. History of epistaxis 12. Proteus UTI PLAN: 1. Decreased oral diuresis Lasix 40 bid and Aldactone 50 mg QD with monitoring renal function and electrolytes 2. Continue Bystolic 5 mg QD, Lisinopril 40 mg QD, Eliquis 5 mg BID, Lipitor 20 mg QHS and Amlodipine 10 mg QD 3. Bronchodilator, oral steroids taper with GI protection, empiric abx course and O2 as needed 4. Repeat echocardiography suggests worsening of aortic valve stenosis prompting reassessment of need for valve replacement. Consider TAVR if clinically feasible and will pursue once she is clinically stable as outpatient 5. OOB to chair, bowel regimen, complete abx course, d/c planning with f/u with Dr. Stewart
[2018-09-05] MEDS: FLUTICASONE/SALMETEROL 100 MCG/50 MCG DISKUS IH SCH ×2 (13:47→21:35)
[2018-09-05] MEDS ORDERED: amLODIPine BESYLATE 5 MG TABLET (FP) PO ONE ×2 (14:21→14:30)
--- NOTE | 2018-09-05 15:00 | PN ---
Teaching Attending Note Name of Resident: Edgard Rivers ATTENDING PHYSICIAN STATEMENT I saw and evaluated the patient. I reviewed the resident's note and discussed the case with the resident. I agree with the resident's findings and plan as documented. SUBJECTIVE: Dyspnea improved. Dysuria resolved. No cough/sputum/hemoptysis/fever /chills. Declines SNF placement. OBJECTIVE: Afebrile, Hemodynamically Stable Last Vital Signs Temp Pulse Resp BP Pulse Ox 98.1 F 56 L 22 H 174/88 H 95 09/05/18 08:00 09/05/18 12:00 09/05/18 12:00 09/05/18 12:00 09/05/18 12:00 Heart - S1, S2, SM, irregular Lungs - good air entry bilaterally, decreased at bases. Abdomen - Soft, non-tender. Bowel Sounds normal. Extremities - trace edema, bilateral calf tenderness. Laboratory Results - last 24 hr 09/04/18 09/04/18 09/05/18 16:34 21:42 05:30 WBC 6.0 RBC 3.45 L Hgb 9.7 L Hct 29.5 L MCV 85.6 MCH 28.0 MCHC 32.7 RDW 15.8 H Plt Count 219 MPV 9.2 Sodium Potassium Chloride Carbon Dioxide Anion Gap BUN Creatinine Creat Clearance w eGFR POC Glucometer 114 133 Random Glucose Calcium Total Bilirubin AST ALT Alkaline Phosphatase Total Protein Albumin 09/05/18 09/05/18 09/05/18 05:30 06:36 11:06 WBC RBC Hgb Hct MCV MCH MCHC RDW Plt Count MPV Sodium 141 Potassium 3.7 Chloride 98 Carbon Dioxide 38 H Anion Gap 6 L BUN 32 H Creatinine 1.2 Creat Clearance w eGFR 42.90 POC Glucometer 122 173 Random Glucose 109 H Calcium 8.4 L Total Bilirubin 0.3 AST 31 ALT 26 Alkaline Phosphatase 57 Total Protein 6.0 L Albumin 3.0 L Current Medications Generic Name Dose Route Start Last Admin Trade Name Freq PRN Reason Stop Dose Admin Acetaminophen 650 mg 08/30/18 08:35 09/04/18 21:35 Tylenol - PO 650 mg Q6H PRN Administration pain 1-3 Amlodipine Besylate 10 mg 08/30/18 10:00 09/05/18 09:42 Norvasc - PO 10 mg DAILY PK Administration Apixaban 5 mg 08/29/18 22:00 09/05/18 09:42 Eliquis - PO 5 mg BID PK Administration Atorvastatin Calcium 20 mg 08/30/18 22:00 09/04/18 21:49 Lipitor - PO 20 mg HS PK Administration Docusate Sodium 100 mg 09/02/18 10:00 09/05/18 09:42 Colace - PO 100 mg DAILY PK Administration Ferrous Sulfate 325 mg 08/29/18 22:00 09/05/18 09:42 Feosol - PO 325 mg BID PK Administration Furosemide 40 mg 09/04/18 14:00 09/05/18 13:46 Lasix - PO 40 mg BID@0600,1400 PK Administration Ceftriaxone Sodium 1 gm/ 50 mls @ 100 mls/hr 08/31/18 10:00 09/05/18 09:43 Dextrose IVPB 100 mls/hr DAILY PK Administration Insulin Aspart 1 vial 08/29/18 22:00 09/05/18 11:07 Novolog Vial Sliding Scale - SQ 2 units ACHS PK Administration Protocol Lisinopril 40 mg 08/30/18 10:00 09/05/18 09:43 Prinivil PO 40 mg DAILY PK Administration Nebivolol 5 mg 08/30/18 10:00 09/05/18 09:43 Bystolic - PO 5 mg DAILY PK Administration Pantoprazole Sodium 40 mg 08/30/18 10:00 09/05/18 09:42 Protonix - PO 40 mg DAILY PK Administration Polyethylene Glycol 17 gm 09/03/18 10:00 09/05/18 09:47 Miralax (For Daily Use) - PO 17 gm BID PK Administration Repaglinide 1 mg 08/29/18 19:15 09/05/18 11:11 Prandin - PO 1 mg TIDAC PK Administration Fluticasone/Salmeterol 1 puff 08/29/18 22:00 09/05/18 13:47 Advair 100mcg/50mcg - IH 1 puff BID PK Administration Sertraline HCl 50 mg 08/30/18 10:00 09/05/18 09:43 Zoloft - PO 50 mg DAILY PK Administration Spironolactone 50 mg 09/03/18 14:40 09/05/18 09:42 Aldactone - PO 50 mg DAILY PK Administration ASSESSMENT AND PLAN: 82 year old female with history of Chronic Diastolic CHF, Atrial Fibrillation ( on Eliquis), DM 2, CRF sec to COPD on 2L NC, DJD s/p R THR, Pulmonary HTN, presented with progressively worsening SOB and non productive cough x 3 days. 1. Acute on Chronic Diastolic CHF/Severe - improving Echo 09/01/18 - Normal LVEF, mild LVH, Severe BNP 4578 on admission CXR - Bibasal effusions. Clinically improved - successfully transitioned to oral Lasix regimen - 40mg BID Cardiology follow up as out-patient. 2. UTI - Urine Cx positive for Proteus and Strep bovis - completed 6 days IV Ceftriaxone. ID following. GI work-up/Colonoscopy as out-patient. 3. Hypokalemia - repleted. 4. HTN - Labile, SBP up joie 170s and down to 120s. Continue Nebivolol, Lisinopril, Norvasc, Spironolactone (dose increased to 50mg). Further titration of BP meds by Cardiology as out-patient. 5. Atrial Fibrillation - Continue Nebivolol and Eliquis. 6. DM 2 - Continue Prandin and home insulin regimen. 7. Bilateral calf tenderness - Duplex LEs negative for DVT 8. Chronic Respiratory Failure secondary to COPD - appears stable, no evidence of acute exacerbation. Continue Advair and supplemental O2. 9. Severe Aortic Stenosis - worsening on Echo. For out-patient eval for possible TAVR. 10. HLD - Continue Statin. 11. Depression - stable - slightly anxious today regarding possible discharge - continue Zoloft. DVT Px - on Eliquis Dispo - declines SNF - for DC home with re-instatement of visiting nurse services.
--- NOTE | 2018-09-05 15:10 | DS ---
Physical Exam: SUBJECTIVE: Patient seen and examined at bedside this morning. She admits improvement of her dyspnea. Patient denies subjective fevers, chills, shortness of breath, chest pain, palpitations, abdominal pain, nausea, vomiting. Patient states that she does not want to go to a assisted facility. OBJECTIVE: Vital Signs Period Temp Pulse Resp BP Sys/Mo Pulse Ox Last 24 Hr 98.1 F-98.7 F 54-64 18-22 122-174/53-88 95-95 PHYSICAL EXAM GENERAL: The patient is awake, alert, and fully oriented, in no acute distress. On 2L nasal canula. HEAD: Normocephalic, atraumatic. EYES: PERRL, extraocular movements intact, sclera anicteric, conjunctiva clear. ENT: Oropharynx clear without exudates, moist mucous membranes. NECK: Trachea midline, supple without lymphadenopathy. LUNGS: Good inspiratory effort, and air entry bilaterally. No accessory muscle use. HEART: Regular rate and rhythm, S1, S2 auscultated with 3/6 systolic ejection murmur radiating to carotids bilaterally. ABDOMEN: Obese. Soft, nondistended, nontender to light and deep palpation X4 quadrants. No guarding, no rebound tenderness. Normoactive bowel sounds x4 quadrants. EXTREMITIES: 2+ radial, dorsalis pedis pulses bilaterally. Warm, well-perfused. 1+ bilateral lower extremity edema. NEUROLOGICAL: Cranial nerves II through XII grossly intact. Normal speech. PSYCH: Normal mood, normal affect upon my encounter. SKIN: Warm, dry. LABS Laboratory Results - last 24 hr 09/04/18 09/04/18 09/05/18 16:34 21:42 05:30 WBC 6.0 RBC 3.45 L Hgb 9.7 L Hct 29.5 L MCV 85.6 MCH 28.0 MCHC 32.7 RDW 15.8 H Plt Count 219 MPV 9.2 Sodium Potassium Chloride Carbon Dioxide Anion Gap BUN Creatinine Creat Clearance w eGFR POC Glucometer 114 133 Random Glucose Calcium Total Bilirubin AST ALT Alkaline Phosphatase Total Protein Albumin 09/05/18 09/05/18 09/05/18 05:30 06:36 11:06 WBC RBC Hgb Hct MCV MCH MCHC RDW Plt Count MPV Sodium 141 Potassium 3.7 Chloride 98 Carbon Dioxide 38 H Anion Gap 6 L BUN 32 H Creatinine 1.2 Creat Clearance w eGFR 42.90 POC Glucometer 122 173 Random Glucose 109 H Calcium 8.4 L Total Bilirubin 0.3 AST 31 ALT 26 Alkaline Phosphatase 57 Total Protein 6.0 L Albumin 3.0 L HOSPITAL COURSE: Date of Admission:08/30/18 Date of Discharge: 09/05/18 Patient is an 82 year old female with history of asthma, COPD, Afib (on Elequis ) DM, HTN, HLD, arthritis, presents with complaint of shortness of breath for the past 3 days prior to admission. Patient was started on Lasix IV, duonebs, and advair. BNP 4578 upon admission. Chest radiograph showed effusions in bilateral lower lung lobes. Cardiac ECHO showed EF 65- 70%, with normal LV size , thickness, function. Mild MR, TR. Mild to severe aortic valve thickening; severe aortic stenosis. Urine culture grew Proteus mirabilis, Group D streptococcus and patient was treated with Ceftriaxone. ID consult recommended GI follow up for Strep Bovis. Afib rate controlled with Nebivolol, Eliquis for anticoagulation. Hypertension managed wth Amlodipine, Lisinopril. Spironolactone dose increased to 50mg daily. Lasix dose increased to 40mg BID. Patient's shortness of breath improved with diuresis. However, she refused discharge to SNF. Patient for discharge home with home health aid care. Increased Lasix, and Spironolactone prescription sent to pharmacy. Prescription sent for Ceftin to complete th day of antibiotic course. Follow up with primary care physician, cardiology, and furnace tapper. Minutes to complete discharge: 35 Discharge Summary Reason For Visit: ACUTE ON CHRONIC DIASTOLIC CHF,HYPERVOLEMIA,ECOLI Current Active Problems Aortic stenosis, severe (Acute) CHF exacerbation (Acute) Hypervolemia (Acute) Moderate to severe aortic stenosis (Acute) UTI (urinary tract infection) (Acute) Condition: Stable - Instructions Diet, Activity, Other Instructions: You were admitted with complaint of shortness of breath. You were evaluated by the flight tower dispatcher and treated with antibiotics, and medications to reduce the fluid within your lungs. You were evaluated by the physical therapist, who recommended discharge to rehabilitation facility to increase your strength. Continue taking your home medications as directed. We have made some changes: Your Lasix dose has been changed to 40mg twice a day. Your Spironolactone has been increased to 50mg daily. You will finish antibiotic course with Ceftin 500mg every 12 hours for 1 day. Follow up with your primary care physician within two- three days after discharge. You need to follow up with the GI doctor for anemia and Strep bovis in your urine. A referral has been provided to Dr. Sparks. Follow up with your flight tower dispatcher Dr. Stewart within one week after discharge. A referral has been provided. Return to the nearest Emergency Department if you experience worsening symptoms , headaches, confusion, fall, loss of consciousness, dizziness, changes in vision, fevers, chills, shortness of breath, chest pain, palpitations, abdominal pain, nausea, vomiting, pain or bleeding with urination or defecation. Referrals: Armen Stewart MD [Staff Physician] - 1 Week Manolo Sparks MD [Staff Physician] - Disposition: [facility] - Home Medications Comprehensive Discharge Medication List: Ambulatory Orders Lisinopril [Zestril] 40 mg PO DAILY 12/29/16 Simvastatin 40 mg PO DAILY 12/29/16 Omeprazole Magnesium [Prilosec Otc] 40 mg PO DAILY 09/06/17 Sertraline HCl [Zoloft -] 50 mg PO DAILY 09/09/17 Apixaban [Eliquis -] 5 mg PO BID #0 tablet 09/27/17 Albuterol Sulfate [Proair Respiclick] 90 mcg IH Q4H PRN 02/27/18 Amlodipine Besylate [Norvasc -] 10 mg PO DAILY 30 Days #30 tablet 05/17/18 Ferrous Sulfate 325 mg PO BID 06/17/18 Salmeterol/Fluticasone [Advair 100Mcg/50Mcg -] 1 inh PO BID 06/17/18 Insulin (Levemir) [Levemir Vial] 17 units SQ 0700 #2 vial 06/18/18 Nebivolol [Bystolic -] 5 mg PO DAILY #14 tab 06/19/18 Albuterol 0.083% Nebulizer Jesika [Ventolin 0.083% Nebulizer Soln -] 1 neb NEB PRN PRN 08/29/18 Repaglinide [Prandin -] 1 mg PO TID 08/29/18 Acetaminophen 500 mg PO TID 09/02/18 Fluticasone Propion/Salmeterol [Fluticasone-Salmeterol 500-50] 500 mg IH BID 02/12 Cefuroxime Axetil [Ceftin -] 500 mg PO Q12H 1 Days #2 tablet 09/05/18 Furosemide [Lasix -] 40 mg PO BID@0600,1400 30 Days #60 tablet 09/05/18 Spironolactone [Aldactone -] 50 mg PO DAILY 30 Days #60 tablet 09/05/18 This patient is new to me today: No Emergency Visit: Yes ED Registration Date: 08/30/18 Care time: The patient presented to the Emergency Department on the above date and was hospitalized for further evaluation of their emergent condition. Critical Care patient: No - Discharge Referral Referred to [facility] Med P.C[facility] Yes Physician Referral: Arvind Pompa MD ([facility])
[2018-09-05] MEDS: ATORVASTATIN CA 20 MG TABLET (FP) PO SCH (21:35)
[2018-09-06] MEDS: FUROSEMIDE 40 MG TABLET (FP) PO SCH ×2 (05:59→15:08)
[2018-09-06] MEDS: INSULIN SLIDING SCALE (NOVOLOG) 1 VIAL SQ SCH ×4 (06:00→22:00)
[2018-09-06] MEDS: REPAGLINIDE 1 MG TABLET PO SCH ×3 (06:16→17:32)
--- NOTE | 2018-09-06 08:46 | PN ---
Physical Exam: SUBJECTIVE: Patient seen and examined. No new c/o. Breathing is better. Did not leave yesterday as daughter wanted to complete setting up her home health services. OBJECTIVE: Vital Signs Period Temp Pulse Resp BP Sys/Mo Pulse Ox Last 24 Hr 98.7 F-98.9 F 56-66 16-24 127-174/43-88 95-99 Vital Signs Temp 98.9 F 09/06/18 06:00 Pulse 62 09/06/18 06:00 Resp 24 H 09/06/18 06:00 BP 165/49 L 09/06/18 06:00 Pulse Ox 98 09/05/18 22:00 Intake & Output 09/05/18 09/05/18 09/06/18 11:59 23:59 11:59 Intake Total 200 100 Balance 200 100 Intake: Oral 200 100 Other: Voiding Method Incontinent # Unmeasured Voids Void 1 1 Bowel Movement Yes No GENERAL: The patient is awake, alert, and fully oriented, in no acute distress. EYES: PERRL, extraocular movements intact, sclera anicteric, conjunctiva clear. ENT: moist mucous membranes, NC NECK: supple. LUNGS: Breath sounds equal, faint crackles HEART: Regular rate and rhythm, S1, S2 , 3/6 systolic murmur RSB radiating to carotids, ABDOMEN: Soft, nontender, nondistended, normoactive bowel sounds EXTREMITIES: 2+ pulses, warm, well-perfused, mild edema. NEUROLOGICAL: Cranial nerves II through XII grossly intact. Normal speech, gait not observed. Laboratory Results - last 24 hr 09/05/18 09/05/18 09/05/18 11:06 17:29 20:26 POC Glucometer 173 164 171 09/06/18 05:58 POC Glucometer 103 Current Medications Acetaminophen (Tylenol -) 650 mg PO Q6H PRN PRN Reason: pain 1-3 Last Admin: 09/04/18 21:35 Dose: 650 mg Amlodipine Besylate (Norvasc -) 10 mg PO DAILY [facility] Last Admin: 09/05/18 09:42 Dose: 10 mg Apixaban (Eliquis -) 5 mg PO BID [facility] Last Admin: 09/05/18 21:34 Dose: 5 mg Atorvastatin Calcium (Lipitor -) 20 mg PO HS [facility] Last Admin: 09/05/18 21:35 Dose: 20 mg Docusate Sodium (Colace -) 100 mg PO DAILY [facility] Last Admin: 09/05/18 09:42 Dose: 100 mg Ferrous Sulfate (Feosol -) 325 mg PO BID [facility] Last Admin: 09/05/18 21:34 Dose: 325 mg Furosemide (Lasix -) 40 mg PO BID@0600,1400 [facility] Last Admin: 09/06/18 05:59 Dose: 40 mg Ceftriaxone Sodium 1 gm/ (Dextrose) 50 mls @ 100 mls/hr IVPB DAILY [facility] Last Admin: 09/05/18 09:43 Dose: 100 mls/hr Insulin Aspart (Novolog Vial Sliding Scale -) 1 vial SQ ACHS [facility]; Protocol Last Admin: 09/06/18 06:00 Dose: Not Given Lisinopril (Prinivil) 40 mg PO DAILY [facility] Last Admin: 09/05/18 09:43 Dose: 40 mg Nebivolol (Bystolic -) 5 mg PO DAILY [facility] Last Admin: 09/05/18 09:43 Dose: 5 mg Pantoprazole Sodium (Protonix -) 40 mg PO DAILY [facility] Last Admin: 09/05/18 09:42 Dose: 40 mg Polyethylene Glycol (Miralax (For Daily Use) -) 17 gm PO BID [facility] Last Admin: 09/05/18 21:35 Dose: 17 gm Repaglinide (Prandin -) 1 mg PO TIDAC [facility] Last Admin: 09/06/18 06:16 Dose: 1 mg Fluticasone/Salmeterol (Advair 100mcg/50mcg -) 1 puff IH BID [facility] Last Admin: 09/05/18 21:35 Dose: 1 puff Sertraline HCl (Zoloft -) 50 mg PO DAILY [facility] Last Admin: 09/05/18 09:43 Dose: 50 mg Spironolactone (Aldactone -) 50 mg PO DAILY [facility] Last Admin: 09/05/18 09:42 Dose: 50 mg Ambulatory Orders Lisinopril [Zestril] 40 mg PO DAILY 12/29/16 Simvastatin 40 mg PO DAILY 12/29/16 Omeprazole Magnesium [Prilosec Otc] 40 mg PO DAILY 09/06/17 Sertraline HCl [Zoloft -] 50 mg PO DAILY 09/09/17 Apixaban [Eliquis -] 5 mg PO BID #0 tablet 09/27/17 Albuterol Sulfate [Proair Respiclick] 90 mcg IH Q4H PRN 02/27/18 Amlodipine Besylate [Norvasc -] 10 mg PO DAILY 30 Days #30 tablet 05/17/18 Ferrous Sulfate 325 mg PO BID 06/17/18 Salmeterol/Fluticasone [Advair 100Mcg/50Mcg -] 1 inh PO BID 06/17/18 Insulin (Levemir) [Levemir Vial] 17 units SQ 0700 #2 vial 06/18/18 Nebivolol [Bystolic -] 5 mg PO DAILY #14 tab 06/19/18 Albuterol 0.083% Nebulizer Jesika [Ventolin 0.083% Nebulizer Soln -] 1 neb NEB PRN PRN 08/29/18 Repaglinide [Prandin -] 1 mg PO TID 08/29/18 Acetaminophen 500 mg PO TID 09/02/18 Fluticasone Propion/Salmeterol [Fluticasone-Salmeterol 500-50] 500 mg IH BID 02/12 Cefuroxime Axetil [Ceftin -] 500 mg PO Q12H 1 Days #2 tablet 09/05/18 Furosemide [Lasix -] 40 mg PO BID@0600,1400 30 Days #60 tablet 09/05/18 Spironolactone [Aldactone -] 50 mg PO DAILY 30 Days #60 tablet 09/05/18 ASSESSMENT/PLAN: Patient is an 82 year old female with history of asthma, COPD, Afib (on Elequis ) DM, HTN, HLD, arthritis, presents with complaint of shortness of breath for the past 3 days prior to admission. Acute on chronic hypoxic respiratory failure -Likely secondary to CHF exacerbation. BNP 4578 -Pt on home 02 for COPD -CXR shows bilateral lower lobe effusions -Lasix 40mg PO bid daily -Duonebs QID, and Q4H PRN -Advair 1 puff BID -Cardiology consult (Dr. Cline) appreciated. -Cardiac ECHO shows EF 65- 70%, with normal LV size, thickness, function. Mild MR, TR. Mild to severe aortic valve thickening; severe aortic stenosis. -Monitor intake, output, daily weights -1 Liter daily fluid restriction Urinary tract infection -Urine culture grows Proteus mirabilis, Group D streptococcus -Ceftriaxone 1 gram IV daily (day #7) -ID consult (Dr. 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 - New Patient This patient is new to me today: No - Critical Care Critical Care patient: No - Discharge Referral Referred to [facility] Med P.C.: No
[2018-09-06] MEDS ORDERED: cefTRIAXone SODIUM 1 GM VIAL ONE (09:17)
[2018-09-06] MEDS ORDERED: PT OWN MED DRAWER 7, Y5N ONE ×2 (09:17→19:52)
[2018-09-06] MEDS ORDERED: DEXTROSE 5%-WATER - 50 ML IVPB ONE (09:17)
[2018-09-06] MEDS: SPIRONOLACTONE 25 MG TABLET (FP) PO SCH (09:28)
[2018-09-06] MEDS: APIXABAN 5 MG TABLET PO SCH ×2 (09:30→21:53)
[2018-09-06] MEDS: amLODIPine BESYLATE 10 MG TABLET (FP) PO SCH (09:30)
[2018-09-06] MEDS: LISINOPRIL 20 MG TABLET (FP) PO SCH (09:30)
[2018-09-06] MEDS: DOCUSATE SODIUM 100 MG CAPSULE (FP) PO SCH (09:30)
[2018-09-06] MEDS: PANTOPRAZOLE 40 MG TABLET (FP) PO SCH (09:31)
[2018-09-06] MEDS: CEFTRIAXONE 1 GM in DEXTROSE 5%-WATER - 50 ML IVPB SCH (09:31)
[2018-09-06] MEDS: NEBIVOLOL 5 MG TABLET (FP) PO SCH (09:33)
[2018-09-06] MEDS: POLYETHYLENE GLYCOL 3350 119 GM BTL PO SCH ×2 (09:39→21:53)
[2018-09-06] MEDS: SERTRALINE HCL 50 MG TABLET (FP) PO SCH (09:39)
[2018-09-06] MEDS: FLUTICASONE/SALMETEROL 100 MCG/50 MCG DISKUS IH SCH ×2 (09:45→21:52)
--- NOTE | 2018-09-06 09:50 | PN ---
Progress Note, Physician Chief Complaint: Events noted Feels better History of Present Illness: Patient was seen and examined. Awake and alert. Chart was reviewed Denies chest pain. Improved dyspnea - Current Medication List Current Medications: Active Medications Acetaminophen (Tylenol -) 650 mg PO Q6H PRN PRN Reason: pain 1-3 Last Admin: 09/04/18 21:35 Dose: 650 mg Amlodipine Besylate (Norvasc -) 10 mg PO DAILY [facility] Last Admin: 09/06/18 09:30 Dose: 10 mg Apixaban (Eliquis -) 5 mg PO BID [facility] Last Admin: 09/06/18 09:30 Dose: 5 mg Atorvastatin Calcium (Lipitor -) 20 mg PO HS [facility] Last Admin: 09/05/18 21:35 Dose: 20 mg Docusate Sodium (Colace -) 100 mg PO DAILY [facility] Last Admin: 09/06/18 09:30 Dose: 100 mg Ferrous Sulfate (Feosol -) 325 mg PO BID [facility] Last Admin: 09/05/18 21:34 Dose: 325 mg Furosemide (Lasix -) 40 mg PO BID@0600,1400 [facility] Last Admin: 09/06/18 05:59 Dose: 40 mg Ceftriaxone Sodium 1 gm/ (Dextrose) 50 mls @ 100 mls/hr IVPB DAILY [facility] Last Admin: 09/06/18 09:31 Dose: 100 mls/hr Insulin Aspart (Novolog Vial Sliding Scale -) 1 vial SQ ACHS [facility]; Protocol Last Admin: 09/06/18 06:00 Dose: Not Given Lisinopril (Prinivil) 40 mg PO DAILY [facility] Last Admin: 09/06/18 09:30 Dose: 40 mg Nebivolol (Bystolic -) 5 mg PO DAILY [facility] Last Admin: 09/06/18 09:33 Dose: 5 mg Pantoprazole Sodium (Protonix -) 40 mg PO DAILY [facility] Last Admin: 09/06/18 09:31 Dose: 40 mg Polyethylene Glycol (Miralax (For Daily Use) -) 17 gm PO BID [facility] Last Admin: 09/06/18 09:39 Dose: 17 gm Repaglinide (Prandin -) 1 mg PO TIDAC [facility] Last Admin: 09/06/18 06:16 Dose: 1 mg Fluticasone/Salmeterol (Advair 100mcg/50mcg -) 1 puff IH BID [facility] Last Admin: 09/06/18 09:45 Dose: 1 puff Sertraline HCl (Zoloft -) 50 mg PO DAILY [facility] Last Admin: 09/06/18 09:39 Dose: 50 mg Spironolactone (Aldactone -) 50 mg PO DAILY [facility] Last Admin: 09/06/18 09:28 Dose: 50 mg - Objective Vital Signs: Vital Signs Temperature 98.9 F 09/06/18 06:00 Pulse Rate 62 09/06/18 06:00 Respiratory Rate 28 H 09/06/18 08:00 Blood Pressure 172/64 H 09/06/18 08:00 O2 Sat by Pulse Oximetry (%) 96 09/06/18 08:00 Eyes: Yes: PERRL HENT: Yes: Atraumatic Neck: Yes: Supple Cardiovascular: Yes: Pulse Irregular, Murmur (3/6 [id number]), S1, S2 Respiratory: Yes: Diminished Gastrointestinal: Yes: Normal Bowel Sounds, Soft. No: Tenderness Edema: No Additional Findings/Remarks: - Review of Systems Constitutional: denies: Chills, Fever Cardiovascular: reports: Chest Pain. denies: Palpitations, (+) Shortness of Breath Respiratory: reports: Cough. denies: Hemoptysis, Orthopnea, PND, (+) SOB, SOB on Exertion Gastrointestinal: denies: Abdominal Pain, Constipation, Diarrhea, Melena, Nausea , Rectal Bleeding, Vomiting Neurological: denies: Dizziness, Headache, Seizure, Syncope Labs: CBC, BMP 09/05/18 05:30 09/05/18 05:30 Problem List - Problems (1) CHF exacerbation Code(s): I50.9 - HEART FAILURE, UNSPECIFIED Qualifiers: Heart failure type: unspecified Qualified Code(s): I50.9 - Heart failure, unspecified (2) Moderate to severe aortic stenosis Code(s): I35.0 - NONRHEUMATIC AORTIC (VALVE) STENOSIS (3) Acute on chronic diastolic (congestive) heart failure Code(s): I50.33 - ACUTE ON CHRONIC DIASTOLIC (CONGESTIVE) HEART FAILURE (4) Acute on chronic respiratory failure with hypoxemia Code(s): J96.21 - ACUTE AND CHRONIC RESPIRATORY FAILURE WITH HYPOXIA (5) Hhwuo-gl-mobkgax kidney injury Code(s): N17.9 - ACUTE KIDNEY FAILURE, UNSPECIFIED; N18.9 - CHRONIC KIDNEY DISEASE, UNSPECIFIED Qualifiers: Acute renal failure type: unspecified Chronic kidney disease stage: stage 2 (mild) Qualified Code(s): N17.9 - Acute kidney failure, unspecified; N18.2 - Chronic kidney disease, stage 2 (mild) (6) Anemia Code(s): D64.9 - ANEMIA, UNSPECIFIED Qualifiers: (7) Diastolic dysfunction without heart failure Code(s): I51.9 - HEART DISEASE, UNSPECIFIED (8) Dyspnea Code(s): R06.00 - DYSPNEA, UNSPECIFIED Qualifiers: Dyspnea type: dyspnea on exertion Qualified Code(s): R06.09 - Other forms of dyspnea (9) HTN (hypertension) Code(s): I10 - ESSENTIAL (PRIMARY) HYPERTENSION Qualifiers: Hypertension type: essential hypertension Qualified Code(s): I10 - Essential (primary) hypertension (10) Atrial fibrillation Code(s): I48.91 - UNSPECIFIED ATRIAL FIBRILLATION Qualifiers: Atrial fibrillation type: persistent Qualified Code(s): I48.1 - Persistent atrial fibrillation (11) COPD (chronic obstructive pulmonary disease) Code(s): J44.9 - CHRONIC OBSTRUCTIVE PULMONARY DISEASE, UNSPECIFIED Qualifiers: COPD type: unspecified COPD Qualified Code(s): J44.9 - Chronic obstructive pulmonary disease, unspecified (12) Diabetes mellitus Code(s): E11.9 - TYPE 2 DIABETES MELLITUS WITHOUT COMPLICATIONS Qualifiers: Diabetes mellitus type: type 2 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 use: without snf use Diabetes mellitus complication status: without complication Qualified Code(s): E11.9 - Type 2 diabetes mellitus without complications (13) Diastolic dysfunction Code(s): I51.9 - HEART DISEASE, UNSPECIFIED (14) Hypercholesterolemia Code(s): E78.00 - PURE HYPERCHOLESTEROLEMIA, UNSPECIFIED (15) Mitral valve regurgitation Code(s): I34.0 - NONRHEUMATIC MITRAL (VALVE) INSUFFICIENCY Qualifiers: Cardiac valve disease etiology: nonrheumatic Qualified Code(s): I34.0 - Nonrheumatic mitral (valve) insufficiency (16) Tricuspid valve regurgitation Code(s): I07.1 - RHEUMATIC TRICUSPID INSUFFICIENCY Qualifiers: Cardiac valve disease etiology: nonrheumatic Qualified Code(s): I36.1 - Nonrheumatic tricuspid (valve) insufficiency Assessment/Plan 1. Persistent atrial fibrillation with slow ventricular response [id number] score of 7 on DOAC/Eliquis 2. Acute on chronic diastolic heart failure and severe aortic stenosis 3. COPD 4. Type 2 DM 5. Hypertensive heart disease 6. Hypercholesterolemia 7. Chronic kidney disease 8. Anemia 9. Degenerative joint disease post right THR 10. CAD, angina pectoris 11. History of epistaxis PLAN: 1. PO diuresis and Aldactone currently 50 mg QD with monitoring renal function and electrolytes 2. Continue Bystolic 5 mg QD. Continue Lisinopril 40 mg QD, Eliquis 5 mg BID, Lipitor 20 mg QHS and Amlodipine 10 mg QD 3. Bronchodilator, oral steroids taper and O2 as needed 4. To consider TAVR as outpatient as appears to have worsened. Will discuss with patient/her daughter and the TAVR team at [facility]. 5. Continue present management Armen Stewart MD
--- NOTE | 2018-09-06 11:21 | PN ---
Teaching Attending Note Name of Resident: Lyly Parson ATTENDING PHYSICIAN STATEMENT I saw and evaluated the patient. I reviewed the resident's note and discussed the case with the resident. I agree with the resident's findings and plan as documented. SUBJECTIVE: Dyspnea improved. Dysuria resolved. No cough/sputum/hemoptysis/fever /chills. Declines SNF placement. OBJECTIVE: Afebrile, Hemodynamically Stable. Sitting up in chair. Ambulated to bathroom. Last Vital Signs Temp Pulse Resp BP Pulse Ox 98.9 F 62 28 H 137/64 H 96 09/06/18 06:00 09/06/18 06:00 09/06/18 08:00 09/06/18 11:30 09/06/18 08:00 Heart - S1, S2, SM, irregular Lungs - good air entry bilaterally, decreased at bases. Abdomen - Soft, non-tender. Bowel Sounds normal. Extremities - mild edema, bilateral calf tenderness. Laboratory Results - last 24 hr 09/05/18 09/05/18 09/06/18 17:29 20:26 05:58 POC Glucometer 164 171 103 Current Medications Generic Name Dose Route Start Last Admin Trade Name Freq PRN Reason Stop Dose Admin Acetaminophen 650 mg 08/30/18 08:35 09/04/18 21:35 Tylenol - PO 650 mg Q6H PRN Administration pain 1-3 Amlodipine Besylate 10 mg 08/30/18 10:00 09/06/18 09:30 Norvasc - PO 10 mg DAILY PK Administration Apixaban 5 mg 08/29/18 22:00 09/06/18 09:30 Eliquis - PO 5 mg BID PK Administration Atorvastatin Calcium 20 mg 08/30/18 22:00 09/05/18 21:35 Lipitor - PO 20 mg HS PK Administration Docusate Sodium 100 mg 09/02/18 10:00 09/06/18 09:30 Colace - PO 100 mg DAILY PK Administration Ferrous Sulfate 325 mg 08/29/18 22:00 09/05/18 21:34 Feosol - PO 325 mg BID PK Administration Furosemide 40 mg 09/04/18 14:00 09/06/18 05:59 Lasix - PO 40 mg BID@0600,1400 PK Administration Ceftriaxone Sodium 1 gm/ 50 mls @ 100 mls/hr 08/31/18 10:00 09/06/18 09:31 Dextrose IVPB 100 mls/hr DAILY PK Administration Insulin Aspart 1 vial 08/29/18 22:00 09/06/18 06:00 Novolog Vial Sliding Scale - SQ Not Given ACHS [facility] Protocol Lisinopril 40 mg 08/30/18 10:00 09/06/18 09:30 Prinivil PO 40 mg DAILY PK Administration Nebivolol 5 mg 08/30/18 10:00 09/06/18 09:33 Bystolic - PO 5 mg DAILY PK Administration Pantoprazole Sodium 40 mg 08/30/18 10:00 09/06/18 09:31 Protonix - PO 40 mg DAILY PK Administration Polyethylene Glycol 17 gm 09/03/18 10:00 09/06/18 09:39 Miralax (For Daily Use) - PO 17 gm BID PK Administration Repaglinide 1 mg 08/29/18 19:15 09/06/18 06:16 Prandin - PO 1 mg TIDAC PK Administration Fluticasone/Salmeterol 1 puff 08/29/18 22:00 09/06/18 09:45 Advair 100mcg/50mcg - IH 1 puff BID PK Administration Sertraline HCl 50 mg 08/30/18 10:00 09/06/18 09:39 Zoloft - PO 50 mg DAILY PK Administration Spironolactone 50 mg 09/03/18 14:40 09/06/18 09:28 Aldactone - PO 50 mg DAILY PK Administration ASSESSMENT AND PLAN: 82 year old female with history of Chronic Diastolic CHF, Atrial Fibrillation ( on Eliquis), DM 2, CRF sec to COPD on 2L NC, DJD s/p R THR, Pulmonary HTN, presented with progressively worsening SOB and non productive cough x 3 days. 1. Acute on Chronic Diastolic CHF/Severe - improving Echo 09/01/18 - Normal LVEF, mild LVH, Severe BNP 4578 on admission CXR - Bibasal effusions. Clinically improved - successfully transitioned to oral Lasix regimen - 40mg BID Cardiology follow up as out-patient. 2. UTI - Urine Cx positive for Proteus and Strep bovis - completed 7 days IV Ceftriaxone. ID following. GI work-up/Colonoscopy as out-patient. 3. Hypokalemia - repleted. 4. HTN - Labile, SBP up to 170s and down to 120s. Continue Nebivolol, Lisinopril , Norvasc, Spironolactone (dose increased to 50mg). Further titration of BP meds by Cardiology if necessary as out-patient. 5. Atrial Fibrillation - Continue Nebivolol and Eliquis. 6. DM 2 - Continue Prandin and home insulin regimen. 7. Bilateral calf tenderness - Duplex LEs negative for DVT 8. Chronic Respiratory Failure secondary to COPD - appears stable, no evidence of acute exacerbation. Continue Advair and supplemental O2. 9. Severe Aortic Stenosis - worsening on Echo. For out-patient eval for possible TAVR. 10. HLD - Continue Statin. 11. Depression - stable - slightly anxious today regarding possible discharge - continue Zoloft. DVT Px - on Eliquis Dispo - Medically stable for DC - declines SNF - for DC home with re- instatement of visiting nurse services.
[2018-09-06] MEDS: FERROUS SO4 325 MG TABLET (FP) PO SCH ×2 (12:29→21:53)
[2018-09-06] MEDS: ATORVASTATIN CA 20 MG TABLET (FP) PO SCH (21:53)
[2018-09-07] MEDS ORDERED: PT OWN MED DRAWER 7, Y5N ONE ×4 (05:15→13:44)
[2018-09-07] MEDS: FUROSEMIDE 40 MG TABLET (FP) PO SCH ×2 (05:57→13:37)
[2018-09-07] MEDS: INSULIN SLIDING SCALE (NOVOLOG) 1 VIAL SQ SCH ×4 (06:08→21:40)
[2018-09-07] MEDS: REPAGLINIDE 1 MG TABLET PO SCH ×3 (06:12→17:23)
--- NOTE | 2018-09-07 08:49 | PN ---
Progress Note, Physician Chief Complaint: No major change History of Present Illness: Patient was seen and examined. Awake and alert. Chart was reviewed Denies chest pain. Improved dyspnea - Current Medication List Current Medications: Active Medications Acetaminophen (Tylenol -) 650 mg PO Q6H PRN PRN Reason: pain 1-3 Last Admin: 09/04/18 21:35 Dose: 650 mg Amlodipine Besylate (Norvasc -) 10 mg PO DAILY [facility] Last Admin: 09/06/18 09:30 Dose: 10 mg Apixaban (Eliquis -) 5 mg PO BID [facility] Last Admin: 09/06/18 21:53 Dose: 5 mg Atorvastatin Calcium (Lipitor -) 20 mg PO HS [facility] Last Admin: 09/06/18 21:53 Dose: 20 mg Docusate Sodium (Colace -) 100 mg PO DAILY [facility] Last Admin: 09/06/18 09:30 Dose: 100 mg Ferrous Sulfate (Feosol -) 325 mg PO BID [facility] Last Admin: 09/06/18 21:53 Dose: 325 mg Furosemide (Lasix -) 40 mg PO BID@0600,1400 [facility] Last Admin: 09/07/18 05:57 Dose: 40 mg Insulin Aspart (Novolog Vial Sliding Scale -) 1 vial SQ ACHS [facility]; Protocol Last Admin: 09/07/18 06:08 Dose: Not Given Lisinopril (Prinivil) 40 mg PO DAILY [facility] Last Admin: 09/06/18 09:30 Dose: 40 mg Nebivolol (Bystolic -) 5 mg PO DAILY [facility] Last Admin: 09/06/18 09:33 Dose: 5 mg Pantoprazole Sodium (Protonix -) 40 mg PO DAILY [facility] Last Admin: 09/06/18 09:31 Dose: 40 mg Polyethylene Glycol (Miralax (For Daily Use) -) 17 gm PO BID [facility] Last Admin: 09/06/18 21:53 Dose: 17 gm Repaglinide (Prandin -) 1 mg PO TIDAC [facility] Last Admin: 09/07/18 06:12 Dose: 1 mg Fluticasone/Salmeterol (Advair 100mcg/50mcg -) 1 puff IH BID [facility] Last Admin: 09/06/18 21:52 Dose: 1 puff Sertraline HCl (Zoloft -) 50 mg PO DAILY [facility] Last Admin: 09/06/18 09:39 Dose: 50 mg Spironolactone (Aldactone -) 50 mg PO DAILY [facility] Last Admin: 09/06/18 09:28 Dose: 50 mg - Objective Vital Signs: Vital Signs Temperature 98.5 F 09/07/18 05:00 Pulse Rate 61 09/07/18 05:00 Respiratory Rate 23 H 09/07/18 05:00 Blood Pressure 145/54 L 09/07/18 05:00 O2 Sat by Pulse Oximetry (%) 100 09/07/18 00:03 Eyes: Yes: PERRL HENT: Yes: Atraumatic Neck: Yes: Supple Cardiovascular: Yes: Pulse Irregular, Murmur (3/6 JAZMYN), S1, S2 Respiratory: Yes: Diminished Gastrointestinal: Yes: Normal Bowel Sounds, Soft. No: Tenderness Edema: No Additional Findings/Remarks: - Review of Systems Constitutional: denies: Chills, Fever Cardiovascular: reports: Chest Pain. denies: Palpitations, (+) Shortness of Breath Respiratory: reports: Cough. denies: Hemoptysis, Orthopnea, PND, (+) SOB, SOB on Exertion Gastrointestinal: denies: Abdominal Pain, Constipation, Diarrhea, Melena, Nausea , Rectal Bleeding, Vomiting Neurological: denies: Dizziness, Headache, Seizure, Syncope Labs: CBC, BMP 09/05/18 05:30 09/05/18 05:30 INR, PTT INR 1.80 (0.83-1.09) H 08/30/18 05:30 Problem List - Problems (1) CHF exacerbation Code(s): I50.9 - HEART FAILURE, UNSPECIFIED Qualifiers: Heart failure type: unspecified Qualified Code(s): I50.9 - Heart failure, unspecified (2) Moderate to severe aortic stenosis Code(s): I35.0 - NONRHEUMATIC AORTIC (VALVE) STENOSIS (3) Acute on chronic diastolic (congestive) heart failure Code(s): I50.33 - ACUTE ON CHRONIC DIASTOLIC (CONGESTIVE) HEART FAILURE (4) Acute on chronic respiratory failure with hypoxemia Code(s): J96.21 - ACUTE AND CHRONIC RESPIRATORY FAILURE WITH HYPOXIA (5) [id number] kidney injury Code(s): N17.9 - ACUTE KIDNEY FAILURE, UNSPECIFIED; N18.9 - CHRONIC KIDNEY DISEASE, UNSPECIFIED Qualifiers: Acute renal failure type: unspecified Chronic kidney disease stage: stage 2 (mild) Qualified Code(s): N17.9 - Acute kidney failure, unspecified; N18.2 - Chronic kidney disease, stage 2 (mild) (6) Anemia Code(s): D64.9 - ANEMIA, UNSPECIFIED Qualifiers: (7) Diastolic dysfunction without heart failure Code(s): I51.9 - HEART DISEASE, UNSPECIFIED (8) Dyspnea Code(s): R06.00 - DYSPNEA, UNSPECIFIED Qualifiers: Dyspnea type: dyspnea on exertion Qualified Code(s): R06.09 - Other forms of dyspnea (9) HTN (hypertension) Code(s): I10 - ESSENTIAL (PRIMARY) HYPERTENSION Qualifiers: Hypertension type: essential hypertension Qualified Code(s): I10 - Essential (primary) hypertension (10) Atrial fibrillation Code(s): I48.91 - UNSPECIFIED ATRIAL FIBRILLATION Qualifiers: Atrial fibrillation type: persistent Qualified Code(s): I48.1 - Persistent atrial fibrillation (11) COPD (chronic obstructive pulmonary disease) Code(s): J44.9 - CHRONIC OBSTRUCTIVE PULMONARY DISEASE, UNSPECIFIED Qualifiers: COPD type: unspecified COPD Qualified Code(s): J44.9 - Chronic obstructive pulmonary disease, unspecified (12) Diabetes mellitus Code(s): E11.9 - TYPE 2 DIABETES MELLITUS WITHOUT COMPLICATIONS Qualifiers: Diabetes mellitus type: type 2 Diabetes mellitus correction insulin use: without correction use Diabetes mellitus complication status: without complication Qualified Code(s): E11.9 - Type 2 diabetes mellitus without complications (13) Diastolic dysfunction Code(s): I51.9 - HEART DISEASE, UNSPECIFIED (14) Hypercholesterolemia Code(s): E78.00 - PURE HYPERCHOLESTEROLEMIA, UNSPECIFIED (15) Mitral valve regurgitation Code(s): I34.0 - NONRHEUMATIC MITRAL (VALVE) INSUFFICIENCY Qualifiers: Cardiac valve disease etiology: nonrheumatic Qualified Code(s): I34.0 - Nonrheumatic mitral (valve) insufficiency (16) Tricuspid valve regurgitation Code(s): I07.1 - RHEUMATIC TRICUSPID INSUFFICIENCY Qualifiers: Cardiac valve disease etiology: nonrheumatic Qualified Code(s): I36.1 - Nonrheumatic tricuspid (valve) insufficiency Assessment/Plan 1. Persistent atrial fibrillation with slow ventricular response [id number] score of 7 on DOAC/Eliquis 2. Acute on chronic diastolic heart failure and severe aortic stenosis 3. COPD 4. Type 2 DM 5. Hypertensive heart disease 6. Hypercholesterolemia 7. Chronic kidney disease 8. Anemia 9. Degenerative joint disease post right THR 10. CAD, angina pectoris 11. History of epistaxis PLAN: 1. PO diuresis and Aldactone currently 50 mg QD with monitoring renal function and electrolytes 2. Continue Bystolic 5 mg QD. Continue Lisinopril 40 mg QD, Eliquis 5 mg BID, Lipitor 20 mg QHS and Amlodipine 10 mg QD 3. Bronchodilator, oral steroids taper and O2 as needed This can be arranged as outpatient when she comes to the office 5. Continue present management Armen Stewart MD
[2018-09-07] MEDS: DOCUSATE SODIUM 100 MG CAPSULE (FP) PO SCH (09:36)
[2018-09-07] MEDS: SPIRONOLACTONE 25 MG TABLET (FP) PO SCH ×2 (09:36→13:44)
[2018-09-07] MEDS: NEBIVOLOL 5 MG TABLET (FP) PO SCH (09:36)
[2018-09-07] MEDS: APIXABAN 5 MG TABLET PO SCH ×2 (09:36→21:40)
[2018-09-07] MEDS: FERROUS SO4 325 MG TABLET (FP) PO SCH ×2 (09:37→21:40)
[2018-09-07] MEDS: POLYETHYLENE GLYCOL 3350 119 GM BTL PO SCH ×2 (09:37→21:41)
[2018-09-07] MEDS: PANTOPRAZOLE 40 MG TABLET (FP) PO SCH (09:37)
[2018-09-07] MEDS: amLODIPine BESYLATE 10 MG TABLET (FP) PO SCH (09:37)
[2018-09-07] MEDS: LISINOPRIL 20 MG TABLET (FP) PO SCH (09:37)
[2018-09-07] MEDS: FLUTICASONE/SALMETEROL 100 MCG/50 MCG DISKUS IH SCH ×2 (09:38→21:41)
[2018-09-07] MEDS: SERTRALINE HCL 50 MG TABLET (FP) PO SCH (09:38)
--- NOTE | 2018-09-07 13:47 | PN ---
Progress Note (short form) - Note Progress Note: SUBJECTIVE: Dyspnea and Dysuria resolved. No cough/sputum/hemoptysis/fever/ chills. Declines SNF placement. OBJECTIVE: Afebrile, Hemodynamically Stable. Last Vital Signs Temp Pulse Resp BP Pulse Ox 98.5 F 61 23 H 145/54 L 100 09/07/18 05:00 09/07/18 05:00 09/07/18 05:00 09/07/18 05:00 09/07/18 00:03 Heart - S1, S2, SM, irregular Lungs - good air entry bilaterally, decreased at bases. Abdomen - Soft, non-tender. Bowel Sounds normal. Extremities - mild edema, bilateral calf tenderness. Laboratory Results - last 24 hr 09/06/18 09/06/18 09/07/18 16:10 21:59 06:08 POC Glucometer 140 135 133 09/07/18 11:20 POC Glucometer 183 Current Medications Generic Name Dose Route Start Last Admin Trade Name Freq PRN Reason Stop Dose Admin Acetaminophen 650 mg 08/30/18 08:35 09/04/18 21:35 Tylenol - PO 650 mg Q6H PRN Administration pain 1-3 Amlodipine Besylate 10 mg 08/30/18 10:00 09/07/18 09:37 Norvasc - PO 10 mg DAILY PK Administration Apixaban 5 mg 08/29/18 22:00 09/07/18 09:36 Eliquis - PO 5 mg BID PK Administration Atorvastatin Calcium 20 mg 08/30/18 22:00 09/06/18 21:53 Lipitor - PO 20 mg HS PK Administration Docusate Sodium 100 mg 09/02/18 10:00 09/07/18 09:36 Colace - PO 100 mg DAILY PK Administration Ferrous Sulfate 325 mg 08/29/18 22:00 09/07/18 09:37 Feosol - PO 325 mg BID PK Administration Furosemide 40 mg 09/04/18 14:00 09/07/18 13:37 Lasix - PO 40 mg BID@0600,1400 PK Administration Insulin Aspart 1 vial 08/29/18 22:00 09/07/18 11:27 Novolog Vial Sliding Scale - SQ 2 units ACHS PK Administration Protocol Lisinopril 40 mg 08/30/18 10:00 09/07/18 09:37 Prinivil PO 40 mg DAILY PK Administration Nebivolol 5 mg 08/30/18 10:00 09/07/18 09:36 Bystolic - PO 5 mg DAILY PK Administration Pantoprazole Sodium 40 mg 08/30/18 10:00 09/07/18 09:37 Protonix - PO 40 mg DAILY PK Administration Polyethylene Glycol 17 gm 09/03/18 10:00 09/07/18 09:37 Miralax (For Daily Use) - PO 17 gm BID PK Administration Repaglinide 1 mg 08/29/18 19:15 09/07/18 11:26 Prandin - PO 1 mg TIDAC PK Administration Fluticasone/Salmeterol 1 puff 08/29/18 22:00 09/07/18 09:38 Advair 100mcg/50mcg - IH 1 puff BID PK Administration Sertraline HCl 50 mg 08/30/18 10:00 09/07/18 09:38 Zoloft - PO 50 mg DAILY PK Administration Spironolactone 50 mg 09/03/18 14:40 09/06/18 09:28 Aldactone - PO 50 mg DAILY PK Administration ASSESSMENT AND PLAN: 82 year old female with history of Chronic Diastolic CHF, Atrial Fibrillation ( on Eliquis), DM 2, CRF sec to COPD on 2L NC, DJD s/p R THR, Pulmonary HTN, presented with progressively worsening SOB and non productive cough x 3 days. 1. Acute on Chronic Diastolic CHF/Severe - improving Echo 09/01/18 - Normal LVEF, mild LVH, Severe BNP 4578 on admission CXR - Bibasal effusions. Clinically improved - successfully transitioned to oral Lasix regimen - 40mg BID Cardiology follow up as out-patient. 2. UTI - Urine Cx positive for Proteus and Strep bovis - completed 7 days IV Ceftriaxone. ID following. GI work-up/Colonoscopy as out-patient. 3. Hypokalemia - resolved s/p repletion. 4. HTN - Labile, SBP up to 170s and down to 120s. Continue Nebivolol, Lisinopril , Norvasc, Spironolactone (dose increased to 50mg). Further titration of BP meds by Cardiology if necessary as out-patient. 5. Atrial Fibrillation - Continue Nebivolol and Eliquis. 6. DM 2 - Continue Prandin and home insulin regimen. 7. Bilateral calf tenderness - Duplex LEs negative for DVT 8. Chronic Respiratory Failure secondary to COPD - appears stable, no evidence of acute exacerbation. Continue Advair and supplemental O2. 9. Severe Aortic Stenosis - worsening on Echo. For out-patient eval for possible TAVR. 10. HLD - Continue Statin. 11. Depression - stable - slightly anxious today regarding possible discharge - continue Zoloft. DVT Px - on Eliquis Dispo - remains medically stable for DC - declines SNF - for DC home once there is re-instatement of visiting nurse services. Visit type - Emergency Visit Emergency Visit: Yes ED Registration Date: 08/30/18 Care time: The patient presented to the Emergency Department on the above date and was hospitalized for further evaluation of their emergent condition. - New Patient This patient is new to me today: No - Critical Care Critical Care patient: No - Discharge Referral Referred to [facility] No
[2018-09-07] MEDS: ACETAMINOPHEN 325 MG TABLET (FP) PO PRN ×2 (14:13→22:20)
[2018-09-07] MEDS: ATORVASTATIN CA 20 MG TABLET (FP) PO SCH (21:40)
[2018-09-08] MEDS: INSULIN SLIDING SCALE (NOVOLOG) 1 VIAL SQ SCH ×4 (06:22→21:10)
[2018-09-08] MEDS: FUROSEMIDE 40 MG TABLET (FP) PO SCH ×2 (06:23→13:27)
[2018-09-08] MEDS: REPAGLINIDE 1 MG TABLET PO SCH ×3 (06:32→16:55)
[2018-09-08] MEDS: NEBIVOLOL 5 MG TABLET (FP) PO SCH (09:26)
[2018-09-08] MEDS: ACETAMINOPHEN 325 MG TABLET (FP) PO PRN (09:26)
[2018-09-08] MEDS: amLODIPine BESYLATE 10 MG TABLET (FP) PO SCH (09:27)
[2018-09-08] MEDS: DOCUSATE SODIUM 100 MG CAPSULE (FP) PO SCH (09:28)
[2018-09-08] MEDS: SERTRALINE HCL 50 MG TABLET (FP) PO SCH (09:28)
[2018-09-08] MEDS: APIXABAN 5 MG TABLET PO SCH ×2 (09:28→21:08)
[2018-09-08] MEDS: SPIRONOLACTONE 25 MG TABLET (FP) PO SCH (09:28)
[2018-09-08] MEDS: PANTOPRAZOLE 40 MG TABLET (FP) PO SCH (09:29)
[2018-09-08] MEDS: LISINOPRIL 20 MG TABLET (FP) PO SCH (09:29)
[2018-09-08] MEDS: POLYETHYLENE GLYCOL 3350 119 GM BTL PO SCH ×2 (09:29→21:10)
[2018-09-08] MEDS: FERROUS SO4 325 MG TABLET (FP) PO SCH ×2 (09:29→21:08)
--- NOTE | 2018-09-08 09:41 | PN ---
Progress Note, Physician Chief Complaint: No major change History of Present Illness: Patient was seen and examined. Awake and alert. Chart was reviewed Denies chest pain. Improved dyspnea - Current Medication List Current Medications: Active Medications Acetaminophen (Tylenol -) 650 mg PO Q6H PRN PRN Reason: pain 1-3 Last Admin: 09/08/18 09:26 Dose: 650 mg Amlodipine Besylate (Norvasc -) 10 mg PO DAILY [facility] Last Admin: 09/08/18 09:27 Dose: 10 mg Apixaban (Eliquis -) 5 mg PO BID [facility] Last Admin: 09/08/18 09:28 Dose: 5 mg Atorvastatin Calcium (Lipitor -) 20 mg PO HS [facility] Last Admin: 09/07/18 21:40 Dose: 20 mg Docusate Sodium (Colace -) 100 mg PO DAILY [facility] Last Admin: 09/07/18 09:36 Dose: 100 mg Ferrous Sulfate (Feosol -) 325 mg PO BID [facility] Last Admin: 09/08/18 09:29 Dose: 325 mg Furosemide (Lasix -) 40 mg PO BID@0600,1400 [facility] Last Admin: 09/08/18 06:23 Dose: 40 mg Insulin Aspart (Novolog Vial Sliding Scale -) 1 vial SQ ACHS [facility]; Protocol Last Admin: 09/08/18 06:22 Dose: Not Given Lisinopril (Prinivil) 40 mg PO DAILY [facility] Last Admin: 09/08/18 09:29 Dose: 40 mg Nebivolol (Bystolic -) 5 mg PO DAILY [facility] Last Admin: 09/07/18 09:36 Dose: 5 mg Pantoprazole Sodium (Protonix -) 40 mg PO DAILY [facility] Last Admin: 09/08/18 09:29 Dose: 40 mg Polyethylene Glycol (Miralax (For Daily Use) -) 17 gm PO BID [facility] Last Admin: 09/08/18 09:29 Dose: 17 gm Repaglinide (Prandin -) 1 mg PO TIDAC [facility] Last Admin: 09/08/18 06:32 Dose: 1 mg Fluticasone/Salmeterol (Advair 100mcg/50mcg -) 1 puff IH BID [facility] Last Admin: 09/07/18 21:41 Dose: 1 puff Sertraline HCl (Zoloft -) 50 mg PO DAILY [facility] Last Admin: 09/08/18 09:28 Dose: 50 mg Spironolactone (Aldactone -) 50 mg PO DAILY [facility] Last Admin: 09/08/18 09:28 Dose: 50 mg - Objective Vital Signs: Vital Signs Temperature 97.8 F 09/08/18 06:00 Pulse Rate 43 L 09/08/18 07:42 Respiratory Rate 22 H 09/08/18 07:42 Blood Pressure 142/50 L 09/08/18 07:42 O2 Sat by Pulse Oximetry (%) 100 09/08/18 07:42 Eyes: Yes: PERRL HENT: Yes: Atraumatic Neck: Yes: Supple Cardiovascular: Yes: Bradycardia, Pulse Irregular, S1, S2 Respiratory: Yes: Diminished Gastrointestinal: Yes: Normal Bowel Sounds, Soft. No: Tenderness Edema: No Additional Findings/Remarks: - Review of Systems Constitutional: denies: Chills, Fever Cardiovascular: reports: Chest Pain. denies: Palpitations, (+) Shortness of Breath Respiratory: reports: Cough. denies: Hemoptysis, Orthopnea, PND, (+) SOB, SOB on Exertion Gastrointestinal: denies: Abdominal Pain, Constipation, Diarrhea, Melena, Nausea , Rectal Bleeding, Vomiting Neurological: denies: Dizziness, Headache, Seizure, Syncope Problem List - Problems (1) CHF exacerbation Code(s): I50.9 - HEART FAILURE, UNSPECIFIED Qualifiers: Heart failure type: unspecified Qualified Code(s): I50.9 - Heart failure, unspecified (2) Moderate to severe aortic stenosis Code(s): I35.0 - NONRHEUMATIC AORTIC (VALVE) STENOSIS (3) Acute on chronic diastolic (congestive) heart failure Code(s): I50.33 - ACUTE ON CHRONIC DIASTOLIC (CONGESTIVE) HEART FAILURE (4) Acute on chronic respiratory failure with hypoxemia Code(s): J96.21 - ACUTE AND CHRONIC RESPIRATORY FAILURE WITH HYPOXIA (5) [id number] kidney injury Code(s): N17.9 - ACUTE KIDNEY FAILURE, UNSPECIFIED; N18.9 - CHRONIC KIDNEY DISEASE, UNSPECIFIED Qualifiers: Acute renal failure type: unspecified Chronic kidney disease stage: stage 2 (mild) Qualified Code(s): N17.9 - Acute kidney failure, unspecified; N18.2 - Chronic kidney disease, stage 2 (mild) (6) Anemia Code(s): D64.9 - ANEMIA, UNSPECIFIED Qualifiers: (7) Diastolic dysfunction without heart failure Code(s): I51.9 - HEART DISEASE, UNSPECIFIED (8) Dyspnea Code(s): R06.00 - DYSPNEA, UNSPECIFIED Qualifiers: Dyspnea type: dyspnea on exertion Qualified Code(s): R06.09 - Other forms of dyspnea (9) HTN (hypertension) Code(s): I10 - ESSENTIAL (PRIMARY) HYPERTENSION Qualifiers: Hypertension type: essential hypertension Qualified Code(s): I10 - Essential (primary) hypertension (10) Atrial fibrillation Code(s): I48.91 - UNSPECIFIED ATRIAL FIBRILLATION Qualifiers: Atrial fibrillation type: persistent Qualified Code(s): I48.1 - Persistent atrial fibrillation (11) COPD (chronic obstructive pulmonary disease) Code(s): J44.9 - CHRONIC OBSTRUCTIVE PULMONARY DISEASE, UNSPECIFIED Qualifiers: COPD type: unspecified COPD Qualified Code(s): J44.9 - Chronic obstructive pulmonary disease, unspecified (12) Diabetes mellitus Code(s): E11.9 - TYPE 2 DIABETES MELLITUS WITHOUT COMPLICATIONS Qualifiers: Diabetes mellitus type: type 2 Diabetes mellitus intermediate project manager insulin use: without skilled nursing use Diabetes mellitus complication status: without complication Qualified Code(s): E11.9 - Type 2 diabetes mellitus without complications (13) Diastolic dysfunction Code(s): I51.9 - HEART DISEASE, UNSPECIFIED (14) Hypercholesterolemia Code(s): E78.00 - PURE HYPERCHOLESTEROLEMIA, UNSPECIFIED (15) Mitral valve regurgitation Code(s): I34.0 - NONRHEUMATIC MITRAL (VALVE) INSUFFICIENCY Qualifiers: Cardiac valve disease etiology: nonrheumatic Qualified Code(s): I34.0 - Nonrheumatic mitral (valve) insufficiency (16) Tricuspid valve regurgitation Code(s): I07.1 - RHEUMATIC TRICUSPID INSUFFICIENCY Qualifiers: Cardiac valve disease etiology: nonrheumatic Qualified Code(s): I36.1 - Nonrheumatic tricuspid (valve) insufficiency Assessment/Plan 1. Persistent atrial fibrillation with slow ventricular response [id number] score of 7 on DOAC/Eliquis 2. Acute on chronic diastolic heart failure and severe aortic stenosis 3. COPD 4. Type 2 DM 5. Hypertensive heart disease 6. Hypercholesterolemia 7. Chronic kidney disease 8. Anemia 9. Degenerative joint disease post right THR 10. CAD, angina pectoris 11. History of epistaxis PLAN: 1. PO diuresis and Aldactone currently 50 mg QD with monitoring renal function and electrolytes 2. Continue Bystolic 5 mg QD. Continue Lisinopril 40 mg QD, Eliquis 5 mg BID, Lipitor 20 mg QHS and Amlodipine 10 mg QD 3. Bronchodilator, oral steroids taper and O2 as needed 4. TAVR is to be considered and can be discussed as outpatient. Further plans are to follow 5. Continue present management Armen Stewart MD
[2018-09-08] MEDS: FLUTICASONE/SALMETEROL 100 MCG/50 MCG DISKUS IH SCH ×3 (10:27→21:11)
--- NOTE | 2018-09-08 10:51 | PN ---
Physical Exam: SUBJECTIVE: Patient seen and examined at bedside this morning. She denies acute complaints. She denies shortness of breath, chest pain, palpitations, abdominal pain, nausea, vomiting. OBJECTIVE: Vital Signs Period Temp Pulse Resp BP Sys/Mo Pulse Ox Last 24 Hr 97.8 F-98.5 F 43-80 16-28 142-158/50-89 100-100 GENERAL: The patient is awake, alert, and fully oriented, in no acute distress. On 2L nasal canula. HEAD: Normocephalic, atraumatic. EYES: PERRL, extraocular movements intact, sclera anicteric, conjunctiva clear. ENT: Oropharynx clear without exudates, moist mucous membranes. NECK: Trachea midline, supple without lymphadenopathy. LUNGS: Good inspiratory effort, and air entry bilaterally. Wheezing and fine crackles auscultated bilateral lower lobes. No accessory muscle use. HEART: Regular rate and rhythm, S1, S2 auscultated with 3/6 systolic ejection murmur radiating to carotids bilaterally. ABDOMEN: Obese. Soft, nondistended, nontender to light and deep palpation X4 quadrants. No guarding, no rebound tenderness. Normoactive bowel sounds x4 quadrants. EXTREMITIES: 2+ radial, dorsalis pedis pulses bilaterally. Warm, well-perfused. 1+ bilateral lower extremity edema. NEUROLOGICAL: Cranial nerves II through XII grossly intact. Normal speech. PSYCH: Normal mood, normal affect upon my encounter. SKIN: Warm, dry. Laboratory Results - last 24 hr 09/07/18 09/07/18 09/07/18 11:20 16:50 21:12 POC Glucometer 183 130 196 09/08/18 09/08/18 06:20 10:45 POC Glucometer 120 209 Active Medications Generic Name Dose Route Start Last Admin Trade Name Freq PRN Reason Stop Dose Admin Acetaminophen 650 mg 08/30/18 08:35 09/08/18 09:26 Tylenol - PO 650 mg Q6H PRN Administration pain 1-3 Amlodipine Besylate 10 mg 08/30/18 10:00 09/08/18 09:27 Norvasc - PO 10 mg DAILY PK Administration Apixaban 5 mg 08/29/18 22:00 09/08/18 09:28 Eliquis - PO 5 mg BID PK Administration Atorvastatin Calcium 20 mg 08/30/18 22:00 09/07/18 21:40 Lipitor - PO 20 mg HS PK Administration Docusate Sodium 100 mg 09/02/18 10:00 09/08/18 09:28 Colace - PO 100 mg DAILY PK Administration Ferrous Sulfate 325 mg 08/29/18 22:00 09/08/18 09:29 Feosol - PO 325 mg BID PK Administration Furosemide 40 mg 09/04/18 14:00 09/08/18 06:23 Lasix - PO 40 mg BID@0600,1400 PK Administration Insulin Aspart 1 vial 08/29/18 22:00 09/08/18 06:22 Novolog Vial Sliding Scale - SQ Not Given ACHS [facility] Protocol Lisinopril 40 mg 08/30/18 10:00 09/08/18 09:29 Prinivil PO 40 mg DAILY PK Administration Nebivolol 5 mg 08/30/18 10:00 09/08/18 09:26 Bystolic - PO 5 mg DAILY PK Administration Pantoprazole Sodium 40 mg 08/30/18 10:00 09/08/18 09:29 Protonix - PO 40 mg DAILY PK Administration Polyethylene Glycol 17 gm 09/03/18 10:00 09/08/18 09:29 Miralax (For Daily Use) - PO 17 gm BID PK Administration Repaglinide 1 mg 08/29/18 19:15 09/08/18 06:32 Prandin - PO 1 mg TIDAC PK Administration Fluticasone/Salmeterol 1 puff 08/29/18 22:00 09/07/18 21:41 Advair 100mcg/50mcg - IH 1 puff BID PK Administration Sertraline HCl 50 mg 08/30/18 10:00 09/08/18 09:28 Zoloft - PO 50 mg DAILY PK Administration Spironolactone 50 mg 09/03/18 14:40 09/08/18 09:28 Aldactone - PO 50 mg DAILY PK Administration ASSESSMENT/PLAN: Patient is an 82 year old female with history of asthma, COPD, Afib (on Elequis ) DM, HTN, HLD, arthritis, presents with complaint of shortness of breath for the past 3 days prior to admission. Acute on chronic hypoxic respiratory failure -Likely secondary to CHF exacerbation. BNP 4578 -CXR shows bilateral lower lobe effusions -Lasix 40mg PO daily -Duonebs QID, and Q4H PRN -Advair 1 puff BID -Cardiology consult (Dr. Cline) appreciated. -Cardiac ECHO shows EF 65- 70%, with normal LV size, thickness, function. Mild MR, TR. Mild to severe aortic valve thickening; severe aortic stenosis. -Monitor intake, output, daily weights -1 Liter daily fluid restriction Urinary tract infection -Urine culture grows Proteus mirabilis, Group D streptococcus -Completed Ceftriaxone 7 day course. -ID consult (Dr. Louis) appreciated. -Patient will have outpatient GI follow up Afib -Eliquis 5mg PO BID -Rate control with Nebivolol 5mg PO daily HTN -Amlodipine 10mg daily -Lisinopril 40mg daily -Spironolactone 50mg PO daily HLD -Lipitor 20mg PO QHS Anxiety, depression -Sertaline 50mg daily DM -A1c is 7.8% -ISS ACHS -BGM ACHS Constipation -Miralax 17 grams PO BID -Colace 100mg PO daily FEN -No IV fluids -Follow CMP -Sodium restricted diet Prophylaxis -On Eliquis 5mg BID for Afib -Protonix 40mg PO daily Disposition -Continue care in medical- surgical floor. Patient for discharge home with home health aid, pending authorization, and re-instatement of services. Visit type - Emergency Visit Emergency Visit: Yes ED Registration Date: 08/30/18 Care time: The patient presented to the Emergency Department on the above date and was hospitalized for further evaluation of their emergent condition. - New Patient This patient is new to me today: No - Critical Care Critical Care patient: No - Discharge Referral Referred to [facility] Med P.C.: No
[2018-09-08] MEDS ORDERED: PT OWN MED DRAWER 7, Y5N ONE ×2 (10:58→16:55)
--- NOTE | 2018-09-08 10:58 | PN ---
Teaching Attending Note Name of Resident: Edgard Rivers ATTENDING PHYSICIAN STATEMENT I saw and evaluated the patient. I reviewed the resident's note and discussed the case with the resident. I agree with the resident's findings and plan as documented. SUBJECTIVE: Dyspnea and Dysuria resolved. No cough/sputum/hemoptysis/fever/ chills. Declines SNF placement. OBJECTIVE: Afebrile, Hemodynamically Stable. Last Vital Signs Temp Pulse Resp BP Pulse Ox 97.8 F 43 L 22 H 142/50 L 100 09/08/18 06:00 09/08/18 07:42 09/08/18 07:42 09/08/18 07:42 09/08/18 07:42 Heart - S1, S2, SM, irregular Lungs - good air entry bilaterally, decreased at bases. Abdomen - Soft, non-tender. Bowel Sounds normal. Extremities - mild edema, bilateral calf tenderness. Laboratory Results - last 24 hr 09/07/18 09/07/18 09/07/18 11:20 16:50 21:12 POC Glucometer 183 130 196 09/08/18 09/08/18 06:20 10:45 POC Glucometer 120 209 Current Medications Generic Name Dose Route Start Last Admin Trade Name Freq PRN Reason Stop Dose Admin Acetaminophen 650 mg 08/30/18 08:35 09/08/18 09:26 Tylenol - PO 650 mg Q6H PRN Administration pain 1-3 Amlodipine Besylate 10 mg 08/30/18 10:00 09/08/18 09:27 Norvasc - PO 10 mg DAILY PK Administration Apixaban 5 mg 08/29/18 22:00 09/08/18 09:28 Eliquis - PO 5 mg BID PK Administration Atorvastatin Calcium 20 mg 08/30/18 22:00 09/07/18 21:40 Lipitor - PO 20 mg HS PK Administration Docusate Sodium 100 mg 09/02/18 10:00 09/08/18 09:28 Colace - PO 100 mg DAILY PK Administration Ferrous Sulfate 325 mg 08/29/18 22:00 09/08/18 09:29 Feosol - PO 325 mg BID PK Administration Furosemide 40 mg 09/04/18 14:00 09/08/18 06:23 Lasix - PO 40 mg BID@0600,1400 PK Administration Insulin Aspart 1 vial 08/29/18 22:00 09/08/18 06:22 Novolog Vial Sliding Scale - SQ Not Given ACHS PK Protocol Lisinopril 40 mg 08/30/18 10:00 09/08/18 09:29 Prinivil PO 40 mg DAILY PK Administration Nebivolol 5 mg 08/30/18 10:00 09/08/18 09:26 Bystolic - PO 5 mg DAILY PK Administration Pantoprazole Sodium 40 mg 08/30/18 10:00 09/08/18 09:29 Protonix - PO 40 mg DAILY PK Administration Polyethylene Glycol 17 gm 09/03/18 10:00 09/08/18 09:29 Miralax (For Daily Use) - PO 17 gm BID PK Administration Repaglinide 1 mg 08/29/18 19:15 09/08/18 06:32 Prandin - PO 1 mg TIDAC PK Administration Fluticasone/Salmeterol 1 puff 08/29/18 22:00 09/07/18 21:41 Advair 100mcg/50mcg - IH 1 puff BID PK Administration Sertraline HCl 50 mg 08/30/18 10:00 09/08/18 09:28 Zoloft - PO 50 mg DAILY PK Administration Spironolactone 50 mg 09/03/18 14:40 09/08/18 09:28 Aldactone - PO 50 mg DAILY PK Administration ASSESSMENT AND PLAN: 82 year old female with history of Chronic Diastolic CHF, Atrial Fibrillation ( on Eliquis), DM 2, CRF sec to COPD on 2L NC, DJD s/p R THR, Pulmonary HTN, presented with progressively worsening SOB and non productive cough x 3 days. 1. Acute on Chronic Diastolic CHF/Severe - improving Echo 09/01/18 - Normal LVEF, mild LVH, Severe BNP 4578 on admission CXR - Bibasal effusions. Clinically improved - successfully transitioned to oral Lasix regimen - 40mg BID Cardiology follow up as out-patient. 2. UTI - Urine Cx positive for Proteus and Strep bovis - completed 7 days IV Ceftriaxone. ID following. GI work-up/Colonoscopy as out-patient. 3. Hypokalemia - resolved s/p repletion. 4. HTN - Labile. Continue Nebivolol, Lisinopril, Norvasc, Spironolactone (dose increased to 50mg). Further titration of BP meds by Cardiology if necessary as out-patient. 5. Atrial Fibrillation - Continue Nebivolol and Eliquis. 6. DM 2 - Continue Prandin and home insulin regimen. 7. Bilateral calf tenderness - Duplex LEs negative for DVT 8. Chronic Respiratory Failure secondary to COPD - appears stable, no evidence of acute exacerbation. Continue Advair and supplemental O2. 9. Severe Aortic Stenosis - worsening on Echo. For out-patient eval for possible TAVR. 10. HLD - Continue Statin. 11. Depression - stable - slightly anxious today regarding possible discharge - continue Zoloft. DVT Px - on Eliquis Dispo - remains medically stable for DC - declines SNF - for DC home once there is re-instatement of visiting nurse services.
[2018-09-08 13:28] VITALS: BMI 32.8
[2018-09-08] MEDS: ATORVASTATIN CA 20 MG TABLET (FP) PO SCH (21:08)
[2018-09-09 02:05] VITALS: TEMP 98.4
[2018-09-09] MEDS: INSULIN SLIDING SCALE (NOVOLOG) 1 VIAL SQ SCH ×3 (06:02→17:19)
[2018-09-09] MEDS: FUROSEMIDE 40 MG TABLET (FP) PO SCH ×2 (06:02→15:50)
[2018-09-09] MEDS: REPAGLINIDE 1 MG TABLET PO SCH ×3 (06:03→17:19)
--- NOTE | 2018-09-09 06:53 | PN ---
Progress Note (short form) - Note Progress Note: Chief Complaint: Events noted, notes reviewed, complaining of persistent dyspnea but improved, denies any chest pain, denies any orthponea or PND History of Present Illness: Seen and examined on telemetry. Events noted, notes reviewed, complaining of persistent dyspnea but improved, denies any chest pain, denies any orthponea or PND 09/10/2017 Echo: Normal LV size and fxn, LVEF 65%, mild cLVH, abnl LV compliance , mod TRINI, mild MR, TR, mod MG 25 mmHg 02/28/2018 Echo: Normal LV szie and fxn LVEF 55-60%, restrictive physiology, mild LAE, mild MR, TR RVSP 40-50 mmHg, mod-severe CHARI 0.80 cm^2, MG 32 mmHg Current Medications: Current Medications Acetaminophen (Tylenol -) 650 mg PO Q6H PRN PRN Reason: pain 1-3 Last Admin: 09/08/18 09:26 Dose: 650 mg Amlodipine Besylate (Norvasc -) 10 mg PO DAILY [facility] Last Admin: 09/08/18 09:27 Dose: 10 mg Apixaban (Eliquis -) 5 mg PO BID [facility] Last Admin: 09/08/18 21:08 Dose: 5 mg Atorvastatin Calcium (Lipitor -) 20 mg PO HS [facility] Last Admin: 09/08/18 21:08 Dose: 20 mg Docusate Sodium (Colace -) 100 mg PO DAILY [facility] Last Admin: 09/08/18 09:28 Dose: 100 mg Ferrous Sulfate (Feosol -) 325 mg PO BID [facility] Last Admin: 09/08/18 21:08 Dose: 325 mg Furosemide (Lasix -) 40 mg PO BID@0600,1400 [facility] Last Admin: 09/09/18 06:02 Dose: 40 mg Insulin Aspart (Novolog Vial Sliding Scale -) 1 vial SQ ACHS [facility]; Protocol Last Admin: 09/09/18 06:02 Dose: Not Given Lisinopril (Prinivil) 40 mg PO DAILY [facility] Last Admin: 09/08/18 09:29 Dose: 40 mg Nebivolol (Bystolic -) 5 mg PO DAILY [facility] Last Admin: 09/08/18 09:26 Dose: 5 mg Pantoprazole Sodium (Protonix -) 40 mg PO DAILY [facility] Last Admin: 09/08/18 09:29 Dose: 40 mg Polyethylene Glycol (Miralax (For Daily Use) -) 17 gm PO BID [facility] Last Admin: 09/08/18 21:10 Dose: 17 gm Repaglinide (Prandin -) 1 mg PO TIDAC [facility] Last Admin: 09/09/18 06:03 Dose: 1 mg Fluticasone/Salmeterol (Advair 100mcg/50mcg -) 1 puff IH BID [facility] Last Admin: 09/08/18 21:11 Dose: 1 puff Sertraline HCl (Zoloft -) 50 mg PO DAILY [facility] Last Admin: 09/08/18 09:28 Dose: 50 mg Spironolactone (Aldactone -) 50 mg PO DAILY [facility] Last Admin: 09/08/18 09:28 Dose: 50 mg Review of Systems Cardiovascular: As noted above Respiratory: reports: Cough but no Sputum Production Gastrointestinal: denies: Nausea, Vomiting, Diarrhea, Constipation or Abdominal Discomfort Musculoskeletal: No Symptoms Reported Endocrine: No Symptoms Reported - Objective Vital Signs: Last Vital Signs Temp Pulse Resp BP Pulse Ox 98.4 F 54 L 22 H 136/63 96 09/09/18 06:00 09/09/18 06:00 09/09/18 06:00 09/09/18 06:00 09/08/18 22:42 Intake & Output 09/06/18 09/07/18 09/08/18 09/09/18 23:59 23:59 23:59 23:59 Intake Total 1000 750 550 Balance 1000 750 550 Weight 174 lb Constitutional: No Distress Neck: Supple Negative JVD No Bruit Respiratory: Diminished Breath Sounds at the Bases Cardiovascular: S1 S2 Irregularly Irregular Grade 2-3/6 [id number] Gastrointestinal: Soft Benign Normal Bowel Sounds Ext: Trace Edema Labs: CBC, BMP 09/05/18 05:30 09/05/18 05:30 Assessment/Plan ASSESSMENT: 1. Acute on chronic class I-II NYHA classification LV failure related to diastolic LV dysfunction, resolved 2. Chronic obstructive airway disease with acute exacerbation 3. CAD non-obstructive CAD history of demand ischemic injury angina pectoris 4. Persistent atrial fibrillation with [id number] score of 7 on chronic A/C with DOAC's/Eliquis 5. Mitral valve regurgitation 6. Aortic valve stenosis moderate to severe in severity 7. Tricuspid valve regurgitation 8. Pulmonary HTN 9. HTN 10. Diabetes mellitus 11. Hypercholesterolemia 12. Acute on CKD 13. Anemia PLAN: 1. Continue Bystolic with caution and titrate as needed and as tolerated 2. Continue Amlodipine 3. Continue Prinivil with caution and close monitoring of renal function 4. Continue Lipitor 5. Continue PO Lasix and Aldactone with caution close monitoring of renal function 6. Continue Eliquis with close monitoring of CBC, maintaining Hg equal or > 8.0 7. Bronchodilators, Steroids and antibiotics as per the primary team 8. Further evaluation of as outpatient including possible TAVR, D/C as per the primary team Maliha Blake.
[2018-09-09] MEDS: PANTOPRAZOLE 40 MG TABLET (FP) PO SCH (10:29)
[2018-09-09] MEDS: amLODIPine BESYLATE 10 MG TABLET (FP) PO SCH (10:29)
[2018-09-09] MEDS: FERROUS SO4 325 MG TABLET (FP) PO SCH (10:29)
[2018-09-09] MEDS: SPIRONOLACTONE 25 MG TABLET (FP) PO SCH (10:30)
[2018-09-09] MEDS: DOCUSATE SODIUM 100 MG CAPSULE (FP) PO SCH (10:30)
[2018-09-09] MEDS: SERTRALINE HCL 50 MG TABLET (FP) PO SCH (10:30)
[2018-09-09] MEDS: APIXABAN 5 MG TABLET PO SCH (10:30)
[2018-09-09] MEDS: POLYETHYLENE GLYCOL 3350 119 GM BTL PO SCH (10:30)
[2018-09-09] MEDS: LISINOPRIL 20 MG TABLET (FP) PO SCH (10:30)
[2018-09-09] MEDS: FLUTICASONE/SALMETEROL 100 MCG/50 MCG DISKUS IH SCH (10:31)
[2018-09-09] MEDS: NEBIVOLOL 5 MG TABLET (FP) PO SCH (10:31)
--- NOTE | 2018-09-09 11:37 | PN ---
Teaching Attending Note Name of Resident: Edgard Rivers ATTENDING PHYSICIAN STATEMENT I saw and evaluated the patient. I reviewed the resident's note and discussed the case with the resident. I agree with the resident's findings and plan as documented. SUBJECTIVE:breathing much improved. denies CP, SOB, fever, chills, cough, N/V/C/ D OBJECTIVE: Last Vital Signs Temp Pulse Resp BP Pulse Ox 98.4 F 54 L 20 151/60 96 09/09/18 06:00 09/09/18 08:06 09/09/18 10:34 09/09/18 08:06 09/09/18 10:34 Intake & Output 09/06/18 09/07/18 09/08/18 09/09/18 23:59 23:59 23:59 23:59 Intake Total 1000 750 550 Balance 1000 750 550 Weight 174 lb General NAD CV s1 S2 +murmur Lungs CTA B/L no wheezing/rales/rhonchi ASSESSMENT AND PLAN: 82yo F with PMH systolic CHF, afib on eliquis, DM, COPD on 2L NC, pulmonary HTN presented to the ER with progressively worsening SOB and non productive cough x3 days 1. Acute on chronic systolic CHF exacerbation-clinically euvolemic. medications adjusted. will need to weight herself daily and notify cardio if weight increases. cardio follow up in 2 weeks. 2. +Proteus UTI-completed abx therapy 3. Acute on chronic hypoxic respiratory failure-due to volume overload. saturating 92% on 2L NC which is home dose of oxygen. cont supplemental oxygen for goal SpO2 >90% 4. hypokalemia- resolved 5. HTN- improved. cont current therapy 6. afib on eliquis- rate controlled. cont nebivolol/elquis 7. DM- cont home dose of levemir, iss and bgm 8. DVT ppx- eliquis 9. d/c home today
--- NOTE | 2018-09-09 15:23 | DS ---
Physical Exam: SUBJECTIVE: Patient seen and examined at bedside this morning. She denies acute complaints today. OBJECTIVE: Vital Signs Period Temp Pulse Resp BP Sys/Mo Pulse Ox Last 24 Hr 98.2 F-98.4 F 53-58 20-22 114-155/50-63 96-100 PHYSICAL EXAM GENERAL: The patient is awake, alert, and fully oriented, in no acute distress. On 2L nasal canula. HEAD: Normocephalic, atraumatic. EYES: PERRL, extraocular movements intact, sclera anicteric, conjunctiva clear. ENT: Oropharynx clear without exudates, moist mucous membranes. NECK: Trachea midline, supple without lymphadenopathy. LUNGS: Good inspiratory effort, and air entry bilaterally. No accessory muscle use. HEART: Regular rate and rhythm, S1, S2 auscultated with 3/6 systolic ejection murmur radiating to carotids bilaterally. ABDOMEN: Obese. Soft, nondistended, nontender to light and deep palpation X4 quadrants. No guarding, no rebound tenderness. Normoactive bowel sounds x4 quadrants. EXTREMITIES: 2+ radial, dorsalis pedis pulses bilaterally. Warm, well-perfused. 1+ bilateral lower extremity edema. NEUROLOGICAL: Cranial nerves II through XII grossly intact. Normal speech. PSYCH: Normal mood, normal affect upon my encounter. SKIN: Warm, dry. LABS Laboratory Results - last 24 hr 09/08/18 09/08/18 09/09/18 16:50 20:57 06:02 POC Glucometer 151 119 146 09/09/18 11:31 POC Glucometer 139 HOSPITAL COURSE: Date of Admission:08/30/18 Date of Discharge: 09/09/18 Patient is an 82 year old female with history of asthma, COPD, Afib (on Elequis ) DM, HTN, HLD, arthritis, presents with complaint of shortness of breath for the past 3 days prior to admission. Patient was started on Lasix IV, duonebs, and advair. BNP 4578 upon admission. Chest radiograph showed effusions in bilateral lower lung lobes. Cardiac ECHO showed EF 65- 70%, with normal LV size , thickness, function. Mild MR, TR. Mild to severe aortic valve thickening; severe aortic stenosis. Urine culture grew Proteus mirabilis, Group D streptococcus and patient was treated with Ceftriaxone. ID consult recommended GI follow up for Strep Bovis. Afib rate controlled with Nebivolol, Eliquis for anticoagulation. Hypertension managed wt Amlodipine, Lisinopril. Spironolactone dose increased to 50mg daily. Lasix dose increased to 40mg BID. Patient's shortness of breath improved with diuresis. Patient refused discharge to SNF; delay in discharge due to arrangement of home health services for the patient. Patient discharged home with home health aid care. Increased Lasix, and Spironolactone prescription sent to pharmacy. Follow up with primary care physician, cardiology, and corporate communications associate. Minutes to complete discharge: 35 Discharge Summary Reason For Visit: ACUTE ON CHRONIC DIASTOLIC CHF,HYPERVOLEMIA,ECOLI Current Active Problems Aortic stenosis, severe (Acute) CHF exacerbation (Acute) Hypervolemia (Acute) Moderate to severe aortic stenosis (Acute) UTI (urinary tract infection) (Acute) Condition: Stable - Instructions Diet, Activity, Other Instructions: You were admitted with complaint of shortness of breath. You were evaluated by the bleach liquor maker and treated with antibiotics, and medications to reduce the fluid within your lungs. We are discharging you home on your request, to home health services Continue taking your home medications as directed. We have made some changes: Your Lasix dose has been changed to 40mg twice a day. Your Spironolactone has been increased to 50mg daily. Follow up with your primary care physician within two- three days after discharge. Follow up with your primary care doctor for repeat blood work to check for anemia (CBC) and for the salts in your body (BMP, Mg, Ph) You need to follow up with the GI doctor for anemia and Strep bovis in your urine. A referral has been provided to Dr. Sparks. Follow up with your bleach liquor maker Dr. Stewart within one week after discharge. A referral has been provided. Follow up with cardiology as outpatient to discuss a procedure for your heart valve Weigh yourself daily if you notice excess weight gain take an extra dose of your water pill and contact your bleach liquor maker for modification of your medication dose Return to the nearest Emergency Department if you experience worsening symptoms , headaches, confusion, fall, loss of consciousness, dizziness, changes in vision, fevers, chills, shortness of breath, chest pain, palpitations, abdominal pain, nausea, vomiting, pain or bleeding with urination or defecation. Referrals: Arvind Ravi MD [Primary Care Provider] - 09/08/18 Armen Stewart MD [Staff Physician] - 1 Week Manolo Sparks MD [Staff Physician] - 1 Week Disposition: VNS/HOME HEALTH CARE - Home Medications Comprehensive Discharge Medication List: Ambulatory Orders Lisinopril [Zestril] 40 mg PO DAILY 12/29/16 Simvastatin 40 mg PO DAILY 12/29/16 Omeprazole Magnesium [Prilosec Otc] 40 mg PO DAILY 09/06/17 Sertraline HCl [Zoloft -] 50 mg PO DAILY 09/09/17 Apixaban [Eliquis -] 5 mg PO BID #0 tablet 09/27/17 Albuterol Sulfate [Proair Respiclick] 90 mcg IH Q4H PRN 02/27/18 Amlodipine Besylate [Norvasc -] 10 mg PO DAILY 30 Days #30 tablet 05/17/18 Ferrous Sulfate 325 mg PO BID 06/17/18 Salmeterol/Fluticasone [Advair 100Mcg/50Mcg -] 1 inh PO BID 06/17/18 Insulin (Levemir) [Levemir Vial] 17 units SQ 0700 #2 vial 06/18/18 Nebivolol [Bystolic -] 5 mg PO DAILY #14 tab 06/19/18 Albuterol 0.083% Nebulizer Jesika [Ventolin 0.083% Nebulizer Soln -] 1 neb NEB PRN PRN 08/29/18 Repaglinide [Prandin -] 1 mg PO TID 08/29/18 Acetaminophen 500 mg PO TID 09/02/18 Fluticasone Propion/Salmeterol [Fluticasone-Salmeterol 500-50] 500 mg IH BID 02/12 Furosemide [Lasix -] 40 mg PO BID@0600,1400 30 Days #60 tablet 09/05/18 Spironolactone [Aldactone -] 50 mg PO DAILY 30 Days #60 tablet 09/05/18 Miscellaneous Drug Not In Syst [Outpatient Lab Test] 1 each ASDIR #1 misc This patient is new to me today: No Emergency Visit: Yes ED Registration Date: 08/30/18 Care time: The patient presented to the Emergency Department on the above date and was hospitalized for further evaluation of their emergent condition. Critical Care patient: No - Discharge Referral Referred to [facility] Med P.C.: Yes Physician Referral: Arvind Pompa MD ([facility])
[2018-09-09 15:56] VITALS: BP 132/80; PULSE 53
[2018-09-09] MEDS ORDERED: PT OWN MED DRAWER 7, Y5N ONE (17:13)
== END 2018-09-09 18:56 | disposition home health service (06) | DRG 291 ==
LOC: SUPCPDRO 12:11 → JER 12:11 → JERBED 15:13 → J2W 08-30 00:18 → OBSVTOIN 08-30 08:41
PROVIDERS: ADMIT Internal Medicine; ATTEND Internal Medicine
DX: I13.0 Hypertensive heart and chronic kidney disease with heart failure and stage 1 through stage 4 chronic kidney disease, or unspecified chronic kidney disease (principal); J96.21 Acute and chronic respiratory failure with hypoxia; I50.23 Acute on chronic systolic (congestive) heart failure; N39.0 Urinary tract infection, site not specified; I48.1 Persistent atrial fibrillation; I25.10 Atherosclerotic heart disease of native coronary artery without angina pectoris; B96.4 Proteus (mirabilis) (morganii) as the cause of diseases classified elsewhere; E11.22 Type 2 diabetes mellitus with diabetic chronic kidney disease; N18.2 Chronic kidney disease, stage 2 (mild); I27.20 Pulmonary hypertension, unspecified; I48.91 Unspecified atrial fibrillation; E78.5 Hyperlipidemia, unspecified; J44.9 Chronic obstructive pulmonary disease, unspecified; D64.9 Anemia, unspecified; E11.9 Type 2 diabetes mellitus without complications; I08.3 Combined rheumatic disorders of mitral, aortic and tricuspid valves; F41.8 Other specified anxiety disorders; E87.70 Fluid overload, unspecified; E04.1 Nontoxic single thyroid nodule; E87.6 Hypokalemia; Z96.641 Presence of right artificial hip joint; Z86.73 Personal history of transient ischemic attack (TIA), and cerebral infarction without residual deficits; Z96.659 Presence of unspecified artificial knee joint; Z78.0 Asymptomatic menopausal state
CPT/HCPCS: 36415; 71045-TC-FY; 80048; 80053; 80061; 81003; 82550; 82962; 83721; 83735; 83880; 84100; 84484; 85025; 85027; 85610; 85730; 87040; 87086; 87186; 87804; 93005; 93010; 93306-TC; 93970-TC; 94640; 97116-GP; 97162-GP; 99285-25; G0378; J0131

== ENCOUNTER 2019-01-23 14:48 | Inpatient (IN) | payer OTHER ==
[2019-01-23] MEDS ORDERED: SODIUM CHLORIDE 0.9% 1000 ML INFUS.BAG IV ONE (15:32)
--- NOTE | 2019-01-23 17:15 | PDOC ---
Documentation entered by Heather Escudero SCRIBE, acting as scribe for Sisi Dobbins MD. Sisi Dobbins MD: This documentation has been prepared by the Kota rosen Sammi, SCRIBE, under my direction and personally reviewed by me in its entirety. I confirm that the documentation accurately reflects all work, treatment, procedures, and medical decision making performed by me. History of Present Illness - General Chief Complaint: Diarrhea Stated Complaint: Rectal Bleed - History of Present Illness Initial Comments: 01/23/19 15:36 The patient is an 83 year old female who presents to the emergency department for evaluation of 2 weeks of diarrhea with 2-3 days of bright red blood on her stool. The patient reports nausea, vomiting x1, and a decreased appetite. She also notes dysuria, SOB and lightheadedness. Denies abdominal pain. The patient states she had a nose bleed 2 days ago and describes the passing of a clot. Patients daughter obtained a stool sample from the patient prior to arrival. Denies recent travel or recent antibiotic use. Denies chest pain, headache and dizziness. Denies fever or chills. PCP: Peña Cardio: Pat Nephro: Solis Pulm: Karolyn Medical history: IDDM, COPD (3L home O2), CHF, Afib (on eliquis) Allergies: ciprofloxacin Past History - Past Medical History Allergies/Adverse Reactions: Allergies Allergy/AdvReac Type Severity Reaction Status Date / Time ciprofloxacin [From Cipro] Allergy Verified 01/23/19 15:11 ciprofloxacin HCl Allergy Verified 01/23/19 15:11 [From Cipro] Home Medications: Ambulatory Orders Lisinopril [Zestril] 40 mg PO DAILY 12/29/16 Simvastatin 40 mg PO DAILY 12/29/16 Omeprazole Magnesium [Prilosec Otc] 40 mg PO DAILY 09/06/17 Sertraline HCl [Zoloft -] 50 mg PO DAILY 09/09/17 Apixaban [Eliquis -] 5 mg PO BID #0 tablet 09/27/17 Albuterol Sulfate [Proair Respiclick] 90 mcg IH Q4H PRN 02/27/18 Amlodipine Besylate [Norvasc -] 10 mg PO DAILY 30 Days #30 tablet 05/17/18 Ferrous Sulfate 325 mg PO BID 06/17/18 Salmeterol/Fluticasone [Advair 100Mcg/50Mcg -] 1 inh PO BID 06/17/18 Insulin (Levemir) [Levemir Vial] 17 units SQ 0700 #2 vial 06/18/18 Nebivolol [Bystolic -] 5 mg PO DAILY #14 tab 06/19/18 Albuterol 0.083% Nebulizer Jesika [Ventolin 0.083% Nebulizer Soln -] 1 neb NEB PRN PRN 08/29/18 Repaglinide [Prandin -] 1 mg PO TID 08/29/18 Acetaminophen 500 mg PO TID 09/02/18 Fluticasone Propion/Salmeterol [Fluticasone-Salmeterol 500-50] 500 mg IH BID 02/12 Furosemide [Lasix -] 40 mg PO BID@0600,1400 30 Days #60 tablet 09/05/18 Spironolactone [Aldactone -] 50 mg PO DAILY 30 Days #60 tablet 09/05/18 Miscellaneous Drug Not In Syst [Outpatient Lab Test] 1 each ASDIR #1 misc Anemia: Yes Asthma: Yes Cancer: Yes (SKIN / FOREHEAD 2010) Cardiac Disorders: Yes (A-fib, CAD, Angina, TR, MR, AV stenosis) CVA: Yes COPD: Yes (Asthma, pulmonary HTN) CHF: Yes Dementia: No Diabetes: Yes GI Disorders: No Disorders: No HTN: Yes Hypercholesterolemia: Yes Liver Disease: No Psychiatric Problems: Yes (depresion, anxiety) Seizures: No Thyroid Disease: No - Surgical History Abdominal Surgery: No Appendectomy: No Cardiac Surgery: No Cholecystectomy: No Lung Surgery: No Neurologic Surgery: No Orthopedic Surgery: Yes ((R) HIP REPLACEMENT 2007, revision 2016) - Immunization History Immunization Up to Date: Yes - Suicide/Smoking/Psychosocial Hx Smoking Status: No Smoking History: Former smoker Have you smoked in the past 12 months: No Number of Cigarettes Smoked Daily: 0 If you are a former smoker, when did you quit?: many years ago Cigars Per Day: 0 Hx Alcohol Use: No Drug/Substance Use Hx: No Substance Use Type: None Hx Substance Use Treatment: No Review of Systems - Review of Systems Comments:: 01/23/19 15:37 GENERAL/CONSTITUTIONAL: No fever or chills. No weakness. HEAD, EYES, EARS, NOSE AND THROAT: No change in vision. No ear pain or discharge. No sore throat. CARDIOVASCULAR: No chest pain. RESPIRATORY: (+)SOB. No cough, wheezing, or hemoptysis. GASTROINTESTINAL: (+)bloody diarrhea (+)nausea (+)vomiting GENITOURINARY: (+)diarrhea. No frequency, or change in urination. MUSCULOSKELETAL: No joint or muscle swelling or pain. No neck or back pain. NEUROLOGIC: No headache, vertigo, loss of consciousness, or change in strength/ sensation. *Physical Exam - Vital Signs Last Vital Signs Temp Pulse Resp BP Pulse Ox 97.8 F 57 L 18 97/42 L 100 01/23/19 14:48 01/23/19 14:48 01/23/19 14:48 01/23/19 14:48 01/23/19 14:48 - Physical Exam Comments: 01/23/19 17:14 awake alert lungs clear bilat heart systolic murmur, abd soft nt nd ext wwp no edema. no calf tendernsess rectal dark watery stool no bright red blood. ED Treatment Course - LABORATORY CBC & Chemistry Diagram: 01/23/19 16:54 01/23/19 16:54 Medical Decision Making - Medical Decision Making 01/23/19 17:11 83 yo F with h/o copd, afib, (on eliquis) chf htn here with c/o feeling lighteaded bloody stool with diarrhea , and dysuria. pt stats she has been having dark watery stools started today, with some bright red blood mixed in. does take iron in the past. diarrhea had been going on for 2 weeks. also felt lightheaded. no abd pain. no f/c does not dysuria no flank pain. no recent travel or abx use. also had a nose bleed a few days ago in addition, resolved spontaneously with pressure. on abd exam pt abd nontender. rectal exam with dark watery stool in vault. no gross blood. no melena. differential colitis, anemia, diverticular bleed, anemia, plan iv hydration labs type and screen. ekg. 01/23/19 18:19 pt hgb stable, mild SARA with BUN elevation . due to risk of bein on eliquis, relatively low bp on arrival, will admit for serial h/h. bp improved following fluid bolus to 118 sbp. awaiting ua results. 01/23/19 18:20 d/w medical team for admission. admitted to DR Pathak. *DC/Admit/Observation/Transfer Diagnosis at time of Disposition: GI bleed, SARA (acute kidney injury) - Discharge Dispostion Decision to Admit order: Yes - Referrals Referrals: Arvind Ravi MD [Primary Care Provider] - - Patient Instructions - Post Discharge Activity
[2019-01-23 17:22] LABS: EOS % 16.5 % (0-4.5); HEMATOCRIT 33.5 % (32.4-45.2); LYMPH % 12.8 % (8-40); MCH 29.4 pg (25.7-33.7); MCHC 32.9 g/dl (32.0-36.0); MEAN CELL VOLUME 89.3 fl (80-96); MEAN PLT VOLUME 9.4 fl (7.5-11.1); MONO % 9.3 % (3.8-10.2); NEUT % 60.4 % (42.8-82.8); PLATELET COUNT 213 K/MM3 (134-434); RBC 3.75 M/mm3 (3.60-5.2); RDW 15.7 % (11.6-15.6); WHITE BLOOD COUNT 8.4 K/mm3 (4.0-10.0)
[2019-01-23 17:40] LABS: INR 2.08 (0.83-1.09); PROTHROMBIN TIME (PATIENT) 24.7 SEC (9.7-13.0)
[2019-01-23 17:44] LABS: ACTIVATED PTT 37.6 SECONDS (25.2-36.5)
[2019-01-23 17:49] LABS: ALBUMIN 3.5 g/dl (3.4-5.0); BILIRUBIN,TOTAL 0.3 mg/dL (0.2-1); BLOOD UREA NITROGEN 53.7 mg/dL (7-18); CREATININE 1.6 mg/dL (0.55-1.3); POTASSIUM 4.7 mmol/L (3.5-5.1); TOT PROT 5.9 g/dl (6.4-8.2)
[2019-01-23 19:17] LABS: EPI CELLS 7.4 /HPF (0-5/HPF); HYALINE CASTS 18 /lpf (0-8); URINE APPEARANCE CLEAR; URINE BACTERIA 8.3 /hpf (NEGATIVE); URINE BILIRUBIN NEGATIVE (NEGATIVE); URINE COLOR YELLOW; URINE GLUCOSE (UA) NEGATIVE (NEGATIVE); URINE KETONE NEGATIVE (NEGATIVE); URINE LEUK ESTERASE 2+ (NEGATIVE); URINE NITRITE NEGATIVE (NEGATIVE); URINE PROTEIN NEGATIVE (NEGATIVE); URINE RBC 1 /hpf (0-4); URINE UROBILINOGEN 0.2 mg/dL (0.2-1.0); URINE WBC 5 /hpf (0-5)
--- NOTE | 2019-01-23 19:24 | PN ---
Teaching Attending Note Name of Resident: Reanna Benitez ATTENDING PHYSICIAN STATEMENT I saw and evaluated the patient. I reviewed the resident's note and discussed the case with the resident. I agree with the resident's findings and plan as documented. SUBJECTIVE: Patient is an 83 year old woman with PMH of Insulin-treated DM, COPD (3L home O2 ), CHF, Afib (on eliquis), Hemorrhoids, Valvular heart disease, CAD, Asthma, Pulmonary hypertension, Anxiety/depression, Skin cancer and Right Hip replacement who presents to the ER for evaluation of 2 weeks of diarrhea with 2- 3 days of bright red blood on her stool. The patient reports nausea, vomiting x1 , and a decreased appetite. She also notes dysuria, SOB and lightheadedness. Denies abdominal pain. Uses wheelchair and walker. The patient states she had a nose bleed 2 days ago and describes the passing of a clot. Patients daughter obtained a stool sample from the patient prior to arrival. Denies recent travel or recent antibiotic use. Denies chest pain, headache and dizziness. Denies fever or chills. Has FH of DM. Reportedly had a normal colonoscopy in 2017. OBJECTIVE: Alert Vital Signs Period Temp Pulse Resp BP Sys/Mo Pulse Ox Last 24 Hr 97.8 F 57 18 97/42 100 HEENT: No Jaundice, eye redness or discharge, PERRLA, EOMI. Normocephalic, atraumatic. External ears are normal and hearing is grossly intact. No nasal discharge. Neck: Supple, nontender. No palpable adenopathy or thyromegaly. No JVD Chest: Good effort. Clear to auscultation and percussion. Heart: Regular. No S3, rub or murmur Abdomen: Not distended, soft, nontender and no HSM. No rebound or guarding. Normal bowel sounds. Ext: Peripheral pulses intact. No leg edema. Skin: Warm and dry. No petechiae, rash or ecchymosis. Neuro: Alert. Oriented x3. CN 2-12 grossly intact. Sensation grossly intact in all four extremities and DTR are symmetric. Psych: Appropriate mood and affect. Good insight. Current Medications Generic Name Dose Route Start Last Admin Trade Name Freq PRN Reason Stop Dose Admin Sodium Chloride 1,000 mls @ 50 mls/hr 01/23/19 19:30 Normal Saline - IV 01/24/19 19:30 ASDIR [facility] Insulin Aspart 1 vial 01/23/19 22:00 Novolog Vial Sliding Scale - SQ ACHS [facility] Protocol Pantoprazole Sodium 40 mg 01/23/19 19:45 Protonix Iv IVPUSH DAILY [facility] Home Medications Medication Instructions Recorded Lisinopril [Zestril] 40 mg PO DAILY 12/29/16 Simvastatin 40 mg PO DAILY 12/29/16 Omeprazole Magnesium [Prilosec Otc] 40 mg PO DAILY 09/06/17 Sertraline HCl [Zoloft -] 50 mg PO DAILY 09/09/17 Apixaban [Eliquis -] 5 mg PO BID #0 tablet 09/27/17 Albuterol Sulfate [Proair 90 mcg IH Q4H PRN 02/27/18 Respiclick] Amlodipine Besylate [Norvasc -] 10 mg PO DAILY 30 Days #30 tablet 05/17/18 Ferrous Sulfate 325 mg PO BID 06/17/18 Salmeterol/Fluticasone [Advair 1 inh PO BID 06/17/18 100Mcg/50Mcg -] Insulin (Levemir) [Levemir Vial] 17 units SQ 0700 #2 vial 06/18/18 Nebivolol [Bystolic -] 5 mg PO DAILY #14 tab 06/19/18 Albuterol 0.083% Nebulizer Jesika 1 neb NEB PRN PRN 08/29/18 [Ventolin 0.083% Nebulizer Soln -] Repaglinide [Prandin -] 1 mg PO TID 08/29/18 Acetaminophen 500 mg PO TID 09/02/18 Fluticasone Propion/Salmeterol 500 mg IH BID 09/02/18 [Fluticasone-Salmeterol 500-50] Furosemide [Lasix -] 40 mg PO BID@0600,1400 30 Days #60 09/05/18 tablet Spironolactone [Aldactone -] 50 mg PO DAILY 30 Days #60 tablet 09/05/18 Miscellaneous Drug Not In Syst 1 each ASDIR #1 misc 09/09/18 [Outpatient Lab Test] Abnormal Lab Results 01/23/19 01/23/19 01/23/19 16:54 16:54 16:54 RDW 15.7 H Eosinophils % 16.5 H D PT with INR 24.70 H INR 2.08 H PTT (Actin FS) 37.6 H Sodium 133 L Carbon Dioxide 20 L Anion Gap 7 L BUN 53.7 H Creatinine 1.6 H Random Glucose 122 H Total Protein 5.9 L Ur Specific [place] Ur Leukocyte Esterase 01/23/ 18:30 RDW Eosinophils % PT with INR INR PTT (Actin FS) Sodium Carbon Dioxide Anion Gap BUN Creatinine Random Glucose Total Protein Ur Specific [place] 1.008 L Ur Leukocyte Esterase 2+ H ASSESSMENT AND PLAN: 1. GI bleeding - Etiology is unclear, but with recent bouts nose bleeding, workup for bleeding diathesis is warranted. Significant eosinophilia is also unexplained. Will consult Hematology. Has guaiac positive stool. Will give IV NS , IV protonix 40 mg q 12 hours, keep her NPO, get CT abdomen/pelvis, monitor HCT q 6 hours and consult GI. IV Rocephin for UTI pending culture report. Type and hold 2 units PRBC. 2. DM For now, we will hold the home diabetes drugs and implement sliding scale insulin regimen. Provide comprehensive diabetes care with patient teaching and counseling about the importance of adherence to prescribed diabetes regimen, euglycemia, eye care and foot care. 3. SARA - Cause unclear. Will monitor urine output while being hydrated and assess the kidney on the abd/pelvis CT. Consult nephrology and avoid nephrotoxic agents such as NSAIDS, aminoglycosides, contrast dyes and certain Alternative medicine products. 4. Obesity Counseled on the risks associated with obesity. Will provide patient all the necessary assistance, counseling and positive reinforcement to facilitate weight loss. Consult molder shoulder pad. 5. Hypertension - Restart suitable outpatient antihypertensive drugs when clinically appropriate. Revise regimen to ensure [id number] excellent BP control and general counselor patient on the injurious effects of uncontrolled hypertension. Nonpharmacologic measures to control hypertension like weight loss , salt restriction and exercise discussed. Importance of adherence to treatment regimen and attainment of normotension emphasized. 6. DVT prophylaxis - SCD. Eliquis on hold for GI bleeding. 7. Advance directives - Full code
[2019-01-23] MEDS ORDERED: SODIUM CHLORIDE 1,000 ML IV SCH ×2 (19:30→21:35)
[2019-01-23] MEDS ORDERED: PANTOPRAZOLE SODIUM 40 MG VIAL IVPUSH SCH (19:45)
--- NOTE | 2019-01-23 20:31 | HP ---
CHIEF COMPLAINT: 3 days of dark stools accompanied by 1 day of vomiting and 1 nose bleed. PCP: Dr. Pompa - Cardio: Pat - Nephro: Solis Ha Pulm: Karolyn HISTORY OF PRESENT ILLNESS: Ms. Villagomez is an 83 year old woman with a past medical history of afib (on eliquis ), HTN, DM, HLD, asthma, COPD (4LNC at home), arthritis and CHF who presents with 3 days of dark, almost black, stools accompanied by 1 day of vomiting. The patient attributes her black stools to her iron supplements. The patient denies seeing [facility] but does endorse light headedness (which she attributes to not eating) and 1 episode of a nose bleed from her L nostril which was able to be stopped by holding pressure. On ROS the patient also endorsed dysuria, SOB and difficulty walking. The patient denied abdominal pain, NSAID use, chest pain, headache, fevers or chills. ER course was notable for: (1) EKG with Afib and slow ventricular response (2) 1L NS administered (3) FOBT, CBC, CMP, PT,PTT,INR, and UA sent Recent Travel: Denies PAST MEDICAL HISTORY: IDDM, COPD (3L home O2), CHF, Afib (on eliquis) PAST SURGICAL HISTORY: per patient she had surgery on both hips in addition to a hysterectomy Social History: Smoking: denies Alcohol: denies Drugs: denies lives at home with her daughter, mainly uses a wheelchair to get around Family History: Per patient her daughter has DM. Allergies ciprofloxacin [From Cipro] Allergy (Verified 01/23/19 15:11) ciprofloxacin HCl [From Cipro] Allergy (Verified 01/23/19 15:11) HOME MEDICATIONS: Home Medications Medication Instructions Recorded Lisinopril [Zestril] 40 mg PO DAILY 12/29/16 Simvastatin 40 mg PO DAILY 12/29/16 Omeprazole Magnesium [Prilosec Otc] 40 mg PO DAILY 09/06/17 Sertraline HCl [Zoloft -] 50 mg PO DAILY 09/09/17 Apixaban [Eliquis -] 5 mg PO BID #0 tablet 09/27/17 Albuterol Sulfate [Proair 90 mcg IH Q4H PRN 02/27/18 Respiclick] Amlodipine Besylate [Norvasc -] 10 mg PO DAILY 30 Days #30 tablet 05/17/18 Ferrous Sulfate 325 mg PO BID 06/17/18 Salmeterol/Fluticasone [Advair 1 inh PO BID 06/17/18 100Mcg/50Mcg -] Insulin (Levemir) [Levemir Vial] 17 units SQ 0700 #2 vial 06/18/18 Nebivolol [Bystolic -] 5 mg PO DAILY #14 tab 06/19/18 Albuterol 0.083% Nebulizer Jesika 1 neb NEB PRN PRN 08/29/18 [Ventolin 0.083% Nebulizer Soln -] Repaglinide [Prandin -] 1 mg PO TID 08/29/18 Acetaminophen 500 mg PO TID 09/02/18 Fluticasone Propion/Salmeterol 500 mg IH BID 09/02/18 [Fluticasone-Salmeterol 500-50] Furosemide [Lasix -] 40 mg PO BID@0600,1400 30 Days #60 09/05/18 tablet Spironolactone [Aldactone -] 50 mg PO DAILY 30 Days #60 tablet 09/05/18 Miscellaneous Drug Not In Syst 1 each ASDIR #1 misc 09/09/18 [Outpatient Lab Test] REVIEW OF SYSTEMS CONSTITUTIONAL: loss of appetite Absent: fever, chills, diaphoresis, generalized weakness, malaise, weight change HEENT: Nose bleed from L nostril Absent: rhinorrhea, nasal congestion, throat pain, throat swelling, difficulty swallowing, mouth swelling, ear pain, eye pain, visual changes CARDIOVASCULAR: Absent: chest pain, syncope, palpitations, irregular heart rate, lightheadedness , peripheral edema RESPIRATORY: shortness of breath Absent: cough, dyspnea with exertion, orthopnea, wheezing, stridor, hemoptysis GASTROINTESTINAL: vomiting, diarrhea, melena Absent: abdominal pain, abdominal distension, nausea, constipation, hematochezia GENITOURINARY: dysuria, Absent: frequency, urgency, hesitancy, hematuria, flank pain, genital pain MUSCULOSKELETAL: Absent: myalgia, arthralgia, joint swelling, back pain, neck pain SKIN: Absent: rash, itching, pallor HEMATOLOGIC/IMMUNOLOGIC: Absent: easy bleeding, easy bruising, lymphadenopathy, frequent infections ENDOCRINE: Absent: unexplained weight gain, unexplained weight loss, heat intolerance, cold intolerance NEUROLOGIC: unsteady gait Absent: headache, focal weakness or paresthesias, dizziness,seizure, mental status changes, bladder or bowel incontinence PSYCHIATRIC: Absent: anxiety, depression, suicidal or homicidal ideation, hallucinations. PHYSICAL EXAMINATION Vital Signs - 24 hr 01/23/19 01/23/19 14:48 19:35 Temperature 97.8 F 97.9 F Pulse Rate 57 L Pulse Rate [ 59 L Left Radial] Respiratory 18 20 Rate Blood Pressure 97/42 L Blood Pressure 122/64 [Right Arm] O2 Sat by Pulse 100 100 Oximetry (%) GENERAL: Awake, alert, and fully oriented, in no acute distress. HEAD: Normal with no signs of trauma. EYES: Pupils equal, round and reactive to light, extraocular movements intact, sclera anicteric, conjunctiva clear. No lid lag. EARS, NOSE, THROAT: Ears normal, nares patent, oropharynx clear without exudates. NECK: Normal range of motion, supple without lymphadenopathy LUNGS: Breath sounds equal, clear to auscultation bilaterally. No wheezes, and no crackles. No accessory muscle use. HEART: Regular rate, afib, with holosystolic murmur ABDOMEN: Soft, nontender to palpation, normoactive bowel sounds, no guarding, no rebound. Rectal: dark blood noted in diaper, dark watery stool in rectal vault, no blood noted on glove. UPPER EXTREMITIES: 2+ pulses, warm, well-perfused. No cyanosis. No clubbing. No peripheral edema. LOWER EXTREMITIES: 2+ pulses, warm, well-perfused. No calf tenderness. No peripheral edema. NEUROLOGICAL: Cranial nerves II-XII intact. Normal speech. PSYCHIATRIC: Cooperative. Good eye contact. Appropriate mood and affect. SKIN: Warm, dry, normal turgor, no rashes or lesions noted, normal capillary refill. Laboratory Results - last 24 hr 01/23/19 01/23/19 01/23/19 16:54 16:54 16:54 WBC 8.4 RBC 3.75 Hgb 11.0 Hct 33.5 MCV 89.3 MCH 29.4 MCHC 32.9 RDW 15.7 H Plt Count 213 MPV 9.4 Absolute Neuts (auto) 5.1 Neutrophils % 60.4 Lymphocytes % 12.8 Monocytes % 9.3 Eosinophils % 16.5 H D Basophils % 1.0 Nucleated RBC % 0 PT with INR 24.70 H INR 2.08 H PTT (Actin FS) 37.6 H Sodium 133 L Potassium 4.7 Chloride 106 Carbon Dioxide 20 L Anion Gap 7 L BUN 53.7 H Creatinine 1.6 H Est GFR (CKD-EPI)AfAm 33.94 Est GFR (CKD-EPI)NonAf 29.29 Random Glucose 122 H Lactic Acid Calcium 9.0 Total Bilirubin 0.3 AST 15 ALT 17 Alkaline Phosphatase 57 Total Protein 5.9 L Albumin 3.5 Urine Color Urine Appearance Urine pH Ur Specific [place] Urine Protein Urine Glucose (UA) Urine Ketones Urine Blood Urine Nitrite Urine Bilirubin Urine Urobilinogen Ur Leukocyte Esterase Urine WBC (Auto) Urine RBC (Auto) Urine Casts (Auto) U Pathogenic Cast Auto U Epithel Cells (Auto) Urine Bacteria (Auto) Stool Occult Blood Blood Type Antibody Screen 01/23/19 01/23/19 01/23/19 16:54 16:54 16:54 WBC RBC Hgb Hct MCV MCH MCHC RDW Plt Count MPV Absolute Neuts (auto) Neutrophils % Lymphocytes % Monocytes % Eosinophils % Basophils % Nucleated RBC % PT with INR Cancelled INR Cancelled PTT (Actin FS) Sodium Potassium Chloride Carbon Dioxide Anion Gap BUN Creatinine Est GFR (CKD-EPI)AfAm Est GFR (CKD-EPI)NonAf Random Glucose Lactic Acid 0.6 Calcium Total Bilirubin AST ALT Alkaline Phosphatase Total Protein Albumin Urine Color Urine Appearance Urine pH Ur Specific [place] Urine Protein Urine Glucose (UA) Urine Ketones Urine Blood Urine Nitrite Urine Bilirubin Urine Urobilinogen Ur Leukocyte Esterase Urine WBC (Auto) Urine RBC (Auto) Urine Casts (Auto) U Pathogenic Cast Auto U Epithel Cells (Auto) Urine Bacteria (Auto) Stool Occult Blood Blood Type O NEGATIVE Antibody Screen Negative 01/23/19 01/23/19 16:54 18:30 WBC RBC Hgb Hct MCV MCH MCHC RDW Plt Count MPV Absolute Neuts (auto) Neutrophils % Lymphocytes % Monocytes % Eosinophils % Basophils % Nucleated RBC % PT with INR INR PTT (Actin FS) Sodium Potassium Chloride Carbon Dioxide Anion Gap BUN Creatinine Est GFR (CKD-EPI)AfAm Est GFR (CKD-EPI)NonAf Random Glucose Lactic Acid Calcium Total Bilirubin AST ALT Alkaline Phosphatase Total Protein Albumin Urine Color Yellow Urine Appearance Clear Urine pH 5.0 Ur Specific [place] 1.008 L Urine Protein Negative Urine Glucose (UA) Negative Urine Ketones Negative Urine Blood Negative Urine Nitrite Negative Urine Bilirubin Negative Urine Urobilinogen 0.2 Ur Leukocyte Esterase 2+ H Urine WBC (Auto) 5 Urine RBC (Auto) 1 Urine Casts (Auto) 18 U Pathogenic Cast Auto None seen U Epithel Cells (Auto) 7.4 Urine Bacteria (Auto) 8.3 Stool Occult Blood Positive Blood Type Antibody Screen Current Medications ASSESSMENT/PLAN: Ms. Villagomez is an 83 year old woman with a past medical history of afib (on eliquis ), HTN, DM, HLD, asthma, COPD (4LNC at home), arthritis and CHF who presents with 3 days of dark, almost black, stools accompanied by 1 day of vomiting. She is being admitted to med-surg for workup and management of GI bleed. #GI Bleed: colitis vs diverticular bleed vs. upper GI bleed - FOBT + - F/U EKG - F/U CT abdomen and pelvis - Protonix IVpush - Holding Eliquis - H/H q6h - NPO - IVF - Consult GI # Dysuria: - F/U UA and urine culture - Rocephin 1 gm/ (Dextrose) 50 mls @ 100 mls/hr IVPB DAILY - Consult ID # Eosinophilia- noted on CBC - Consult Heme - Patient denies NSAID use # DM - Novolog sliding scale #FEN -IVNS 1,000 mls @ 75 mls/hr IV -monitor lytes, replete PRN -NPO #PPx Protonix 40 mg IVPUSH BID SCDs because of bleed, currently holding eliquis Dispo: admit to med-surg Visit type - Emergency Visit Emergency Visit: Yes ED Registration Date: 01/23/19 Care time: The patient presented to the Emergency Department on the above date and was hospitalized for further evaluation of their emergent condition. - New Patient This patient is new to me today: Yes Date on this admission: 01/24/19 - Critical Care Critical Care patient: No ATTENDING PHYSICIAN STATEMENT I saw and evaluated the patient. I reviewed the resident's note and discussed the case with the resident. I agree with the resident's findings and plan as documented. SUBJECTIVE: OBJECTIVE: ASSESSMENT AND PLAN:
[2019-01-23] MEDS ORDERED: cefTRIAXone SODIUM 1 GM VIAL ONE (22:42)
[2019-01-23] MEDS ORDERED: DEXTROSE 5%-WATER - 50 ML IVPB ONE (22:42)
[2019-01-23] MEDS: PANTOPRAZOLE SODIUM 40 MG VIAL IVPUSH SCH (22:49)
[2019-01-23] MEDS: CEFTRIAXONE 1 GM in DEXTROSE 5%-WATER - 50 ML IVPB SCH (22:49)
[2019-01-23] MEDS: INSULIN SLIDING SCALE (NOVOLOG) 1 VIAL SQ SCH (23:09)
[2019-01-23 23:43] LABS: HEMATOCRIT 32.9 % (32.4-45.2); HEMOGLOBIN 10.9 GM/dL (10.7-15.3); MCH 29.7 pg (25.7-33.7); MEAN PLT VOLUME 8.9 fl (7.5-11.1); PLATELET COUNT 194 K/MM3 (134-434); RBC 3.66 M/mm3 (3.60-5.2); RDW 16.2 % (11.6-15.6); WHITE BLOOD COUNT 7.7 K/mm3 (4.0-10.0)
[2019-01-24] MEDS: INSULIN SLIDING SCALE (NOVOLOG) 1 VIAL SQ SCH ×4 (06:36→21:44)
--- NOTE | 2019-01-24 08:48 | EKG ---
Test Reason : Blood Pressure : / mmHG Vent. Rate : 048 BPM Atrial Rate : 047 BPM P-R Int : 000 ms QRS Dur : 100 ms QT Int : 448 ms P-R-T Axes : 000 -51 -22 degrees QTc Int : 400 ms ATRIAL FIBRILLATION WITH SLOW VENTRICULAR RESPONSE LEFT AXIS DEVIATION ABNORMAL ECG WHEN COMPARED WITH ECG OF 04-SEP-2018 09:26, T WAVE INVERSION NOW EVIDENT IN INFERIOR LEADS Confirmed by LILIBETH DE LA CRUZ, TRENT ([id number]) on 01/24/2019 8:48:09 AM Referred By: Confirmed By:TRENT MCELROY MD
[2019-01-24 09:20] LABS: BASO % 1.2 % (0-2.0); EOS % 24.4 % (0-4.5); HEMATOCRIT 34.5 % (32.4-45.2); HEMOGLOBIN 11.5 GM/dL (10.7-15.3); LYMPH % 11.6 % (8-40); MCH 30.2 pg (25.7-33.7); MCHC 33.3 g/dl (32.0-36.0); MEAN CELL VOLUME 90.5 fl (80-96); MEAN PLT VOLUME 9.2 fl (7.5-11.1); MONO % 11.4 % (3.8-10.2); NEUT % 51.4 % (42.8-82.8); PLATELET COUNT 204 K/MM3 (134-434); RBC 3.81 M/mm3 (3.60-5.2); RDW 16.1 % (11.6-15.6); WHITE BLOOD COUNT 7.8 K/mm3 (4.0-10.0)
[2019-01-24] MEDS ORDERED: cefTRIAXone SODIUM 1 GM VIAL ONE (09:40)
[2019-01-24] MEDS ORDERED: DEXTROSE 5%-WATER - 50 ML IVPB ONE (09:41)
[2019-01-24 09:43] LABS: ALBUMIN 3.3 g/dl (3.4-5.0); BILIRUBIN,TOTAL 0.2 mg/dL (0.2-1); BLOOD UREA NITROGEN 43.7 mg/dL (7-18); CALCIUM 8.9 mg/dL (8.5-10.1); CREATININE 1.4 mg/dL (0.55-1.3); MAGNESIUM 2.1 mg/dL (1.8-2.4); PHOSPHOROUS 3.8 mg/dL (2.5-4.9); POTASSIUM 4.5 mmol/L (3.5-5.1); TOT PROT 5.9 g/dl (6.4-8.2)
[2019-01-24] MEDS: PANTOPRAZOLE SODIUM 40 MG VIAL IVPUSH SCH (09:54)
[2019-01-24] MEDS: CEFTRIAXONE 1 GM in DEXTROSE 5%-WATER - 50 ML IVPB SCH (09:54)
--- NOTE | 2019-01-24 12:20 | CON.GI ---
Consult Consult Specialty:: GI Referred by:: Hospitalist service Reason for Consultation:: Guaiac positive stool - History of Present Illness Chief Complaint: Pt gives me a history that is different from the one obtained in ER. This 83 y.o. F with DM, Afib, on Eliquis, oral iron, tells me she was constipated for 2 weeks. She says she was given a laxative by her PMD which then gave her diarrhea and that is why she came to ER. She denies abdominal pain now. - History Source History Provided By: Patient, Medical Record Limitations to Obtaining History: No Limitations - Past Medical History Cardio/Vascular: Yes: AFIB, Aortic Stenosis, CAD, CHF, HTN, Hyperlipdemia, Mitral Insufficiency, Murmur, Pulmonary Hypertension Pulmonary: Yes: Asthma, COPD, O2 Dependent, Pneumonia Gastrointestinal: Yes: Other (reportedly had colonoscopy about 2 years ago) Psych: Yes: Anxiety Musculoskeletal: Yes: Osteoarthritis (had hip and knee replacement, still with some healing problems ), Other Endocrine: Yes: Diabetes Mellitus, Other (Thyroid nodule) - Past Surgical History Past Surgical History: Yes: Joint Replacement - Alcohol/Substance Use Hx Alcohol Use: No History of Substance Use: reports: None - Smoking History Smoking history: Former smoker Have you smoked in the past 12 months: No Aproximately how many cigarettes per day: 0 If you are a former smoker, when did you quit?: many years ago - Social History Usual Living Arrangement: Alone ADL: Support Services History of Recent Travel: No Home Medications - Allergies Allergies/Adverse Reactions: Allergies Allergy/AdvReac Type Severity Reaction Status Date / Time ciprofloxacin [From Cipro] Allergy Verified 01/23/19 15:11 ciprofloxacin HCl Allergy Verified 01/23/19 15:11 [From Cipro] - Home Medications Home Medications: Ambulatory Orders Lisinopril [Zestril] 40 mg PO DAILY 12/29/16 Simvastatin 40 mg PO DAILY 12/29/16 Omeprazole Magnesium [Prilosec Otc] 40 mg PO DAILY 09/06/17 Sertraline HCl [Zoloft -] 50 mg PO DAILY 09/09/17 Apixaban [Eliquis -] 5 mg PO BID #0 tablet 09/27/17 Albuterol Sulfate [Proair Respiclick] 90 mcg IH Q4H PRN 02/27/18 Amlodipine Besylate [Norvasc -] 10 mg PO DAILY 30 Days #30 tablet 05/17/18 Ferrous Sulfate 325 mg PO BID 06/17/18 Salmeterol/Fluticasone [Advair 100Mcg/50Mcg -] 1 inh PO BID 06/17/18 Insulin (Levemir) [Levemir Vial] 17 units SQ 0700 #2 vial 06/18/18 Nebivolol [Bystolic -] 5 mg PO DAILY #14 tab 06/19/18 Albuterol 0.083% Nebulizer Jesika [Ventolin 0.083% Nebulizer Soln -] 1 neb NEB PRN PRN 08/29/18 Repaglinide [Prandin -] 1 mg PO TID 08/29/18 Acetaminophen 500 mg PO TID 09/02/18 Fluticasone Propion/Salmeterol [Fluticasone-Salmeterol 500-50] 500 mg IH BID 02/12 Furosemide [Lasix -] 40 mg PO BID@0600,1400 30 Days #60 tablet 09/05/18 Spironolactone [Aldactone -] 50 mg PO DAILY 30 Days #60 tablet 09/05/18 Miscellaneous Drug Not In Syst [Outpatient Lab Test] 1 each ASDIR #1 misc Family Disease History - Family Disease History Family Disease History: Diabetes: Mother, Heart Disease: Father, Other: Brother (HTN, ), Daughter (alive and well) Physical Exam-GI Vital Signs: Vital Signs Temperature 97.5 F L 01/23/19 22:24 Pulse Rate 56 L 01/24/19 06:36 Respiratory Rate 18 01/24/19 06:36 Blood Pressure 109/56 L 01/24/19 06:36 O2 Sat by Pulse Oximetry (%) 96 01/23/19 22:24 ...Rectal Exam: Yes: Other (No fresh blood noted.) Labs: CBC, BMP 01/24/19 07:20 01/24/19 07:20 INR, PTT INR 2.08 (0.83-1.09) H 01/23/19 16:54 Assessment/Plan Pt with diarrhea after taking laxatives -- at least that's the history she gives me now. I realize that is different from the history given to the ER. She was found to have occult blood in her stools,but she also had a nosebleed earlier in the week. She has also been on Eliquis No fresh blood is found on the exam finger now. Her Hgb has been steady since admission and is actually higher than it has been over the past couple of admissions. Therefore, I do not see any need to investigate her GI tract now. Of note, her creatinine was 1.6 on admission. The recommended dose of Eliquis on persons over 80 with creatinines of 1.5 or above is 2.5 mg bid. Will allow diet and d/c IV protonix. She clearly has not had an upper GI bleed.
[2019-01-24 14:56] LABS: ANISOCYTOSIS 0; MACROCYTOSIS 0; OVALOCYTE 1+; PLATELET ESTIMATE NORMAL
[2019-01-24 16:12] LABS: HEMATOCRIT 32.8 % (32.4-45.2); HEMOGLOBIN 10.8 GM/dL (10.7-15.3); MCH 30.1 pg (25.7-33.7); MEAN CELL VOLUME 91.2 fl (80-96); MEAN PLT VOLUME 8.9 fl (7.5-11.1); PLATELET COUNT 182 K/MM3 (134-434); RDW 16.1 % (11.6-15.6); WHITE BLOOD COUNT 6.9 K/mm3 (4.0-10.0)
--- NOTE | 2019-01-24 17:18 | PN ---
Progress Note (short form) - Note Progress Note: Patient is lying in bed with no acute distress, no further diarrhea. No shortness of breath. Vital Signs Temperature 97.9 F 01/24/19 13:41 Pulse Rate 54 L 01/24/19 13:41 Respiratory Rate 18 01/24/19 13:41 Blood Pressure 111/46 L 01/24/19 13:41 O2 Sat by Pulse Oximetry (%) 97 01/24/19 09:00 GENERAL: The patient is awake, alert, and fully oriented, in no acute distress. HEAD: Normal with no signs of trauma. EYES: PERRL, extraocular movements intact, sclera anicteric, conjunctiva clear. ENT: Ears normal, oropharynx clear without exudates, moist mucous membranes. NECK: Trachea midline, full range of motion, supple. LUNGS: Breath sounds equal, clear to auscultation bilaterally, no wheezes, no crackles, no accessory muscle use. HEART: JAZMYN 3/6 , sinus bradycardia , S1, S2 positive , no rub or gallop. ABDOMEN: Soft, nontender, nondistended, normoactive bowel sounds, no guarding, no rebound, no hepatosplenomegaly, no masses. EXTREMITIES: 2+ pulses, warm, well-perfused, no edema. NEUROLOGICAL: Cranial nerves II through XII grossly intact. Normal speech, gait not observed. PSYCH: Normal mood, normal affect. SKIN: Warm, dry, normal turgor, no rashes or lesions noted Rectal exam: as per GI dr. donnelly , hemoccult negative CBCD WBC 6.9 K/mm3 (4.0-10.0) 01/24/19 15:35 RBC 3.60 M/mm3 (3.60-5.2) 01/24/19 15:35 Hgb 10.8 GM/dL (10.7-15.3) 01/24/19 15:35 Hct 32.8 % (32.4-45.2) 01/24/19 15:35 MCV 91.2 fl (80-96) 01/24/19 15:35 MCHC 33.0 g/dl (32.0-36.0) 01/24/19 15:35 RDW 16.1 % (11.6-15.6) H 01/24/19 15:35 Plt Count 182 K/MM3 (134-434) 01/24/19 15:35 MPV 8.9 fl (7.5-11.1) 01/24/19 15:35 CMP Sodium 137 mmol/L (136-145) 01/24/19 07:20 Potassium 4.5 mmol/L (3.5-5.1) 01/24/19 07:20 Chloride 111 mmol/L (98-107) H 01/24/19 07:20 Carbon Dioxide 19 mmol/L (21-32) L 01/24/19 07:20 Anion Gap 8 MMOL/L (8-16) 01/24/19 07:20 BUN 43.7 mg/dL (7-18) H 01/24/19 07:20 Creatinine 1.4 mg/dL (0.55-1.3) H 01/24/19 07:20 Random Glucose 64 mg/dL (74-106) L 01/24/19 07:20 Calcium 8.9 mg/dL (8.5-10.1) 01/24/19 07:20 Total Bilirubin 0.2 mg/dL (0.2-1) 01/24/19 07:20 AST 16 U/L (15-37) 01/24/19 07:20 ALT 16 U/L (13-61) 01/24/19 07:20 Alkaline Phosphatase 56 U/L (45-117) 01/24/19 07:20 Total Protein 5.9 g/dl (6.4-8.2) L 01/24/19 07:20 Albumin 3.3 g/dl (3.4-5.0) L 01/24/19 07:20 Current Medications Generic Name Dose Route Start Last Admin Trade Name Lowq PRN Reason Stop Dose Admin Ceftriaxone Sodium 1 gm/ 50 mls @ 100 mls/hr 01/23/19 21:30 01/24/19 09:54 Dextrose IVPB 100 mls/hr DAILY PK Administration Protocol Sodium Chloride 1,000 mls @ 75 mls/hr 01/23/19 21:35 01/23/19 22:49 Normal Saline - IV 01/24/19 19:30 75 mls/hr ASDIR PK Administration Insulin Aspart 1 vial 01/23/19 22:00 01/24/19 17:16 Novolog Vial Sliding Scale - SQ Not Given ACHS PK Protocol Pantoprazole Sodium 20 mg 01/25/19 10:00 Protonix - PO DAILY PK Home Medications Medication Instructions Recorded Lisinopril [Zestril] 40 mg PO DAILY 12/29/16 Simvastatin 40 mg PO DAILY 12/29/16 Omeprazole Magnesium [Prilosec Otc] 40 mg PO DAILY 09/06/17 Sertraline HCl [Zoloft -] 50 mg PO DAILY 09/09/17 Apixaban [Eliquis -] 5 mg PO BID #0 tablet 09/27/17 Albuterol Sulfate [Proair 90 mcg IH Q4H PRN 02/27/18 Respiclick] Amlodipine Besylate [Norvasc -] 10 mg PO DAILY 30 Days #30 tablet 05/17/18 Ferrous Sulfate 325 mg PO BID 06/17/18 Salmeterol/Fluticasone [Advair 1 inh PO BID 06/17/18 100Mcg/50Mcg -] Insulin (Levemir) [Levemir Vial] 17 units SQ 0700 #2 vial 06/18/18 Nebivolol [Bystolic -] 5 mg PO DAILY #14 tab 06/19/18 Albuterol 0.083% Nebulizer Jesika 1 neb NEB PRN PRN 08/29/18 [Ventolin 0.083% Nebulizer Soln -] Repaglinide [Prandin -] 1 mg PO TID 08/29/18 Acetaminophen 500 mg PO TID 09/02/18 Fluticasone Propion/Salmeterol 500 mg IH BID 09/02/18 [Fluticasone-Salmeterol 500-50] Furosemide [Lasix -] 40 mg PO BID@0600,1400 30 Days #60 09/05/18 tablet Spironolactone [Aldactone -] 50 mg PO DAILY 30 Days #60 tablet 09/05/18 Miscellaneous Drug Not In Syst 1 each ASDIR #1 misc 09/09/18 [Outpatient Lab Test] A/P: Patient is an 83 year old woman with a past medical history of afib (on eliquis) , HTN, DM, HLD, asthma, COPD (4LNC at home), arthritis and CHF who presents with 3 days of dark and diarrhea. #Acute GI Bleed: no bleeding noted , patient denies at this point , will follow , Protonix, gi on the case # Eosinophilia- will get strongolides antigen ordered , follow the result # Dysuria: no further symptoms will discontinue after am dose, follow urine cx # DM: Novolog sliding scale # Hx of HTN : Lisinipril, norvasc, bystolic on hold now since having normotension. # Hx of afib: on Eliquis DVT px; SCds , Eliqiuis is on hold now GI PPx : Protonix 40 mg IVPUSH BID MEd.rec is needed to be done. Visit type - Emergency Visit Emergency Visit: Yes ED Registration Date: 01/23/19 Care time: The patient presented to the Emergency Department on the above date and was hospitalized for further evaluation of their emergent condition. - New Patient This patient is new to me today: Yes Date on this admission: 01/24/19 - Critical Care Critical Care patient: No - Discharge Referral Referred to [facility] Med P.C.: No
--- NOTE | 2019-01-24 18:37 | CONSULT ---
Consult Consult Specialty:: Hematology Reason for Consultation:: Eosinophilia - History of Present Illness Chief Complaint: Possible GI Bleed and Diarrhea History of Present Illness: 83 year old lady with a past medical history of afib (on eliquis), HTN, DM, HLD , asthma, COPD (4LNC at home), arthritis and CHF who reported to the ER with c/ of black stools and diarrhea. She mentioned prior diarrhea during my visit today. Denied overt bleeding. No other complaints - History Source History Provided By: Patient Limitations to Obtaining History: Poor Historian - Past Medical History Cardio/Vascular: Yes: AFIB, Aortic Stenosis, CAD, CHF, HTN, Hyperlipdemia, Mitral Insufficiency, Murmur, Pulmonary Hypertension Pulmonary: Yes: Asthma, COPD, O2 Dependent, Pneumonia Gastrointestinal: Yes: Other (reportedly had colonoscopy about 2 years ago) Heme/Onc: Yes: Other Psych: Yes: Anxiety Musculoskeletal: Yes: Osteoarthritis (had hip and knee replacement, still with some healing problems ), Other Endocrine: Yes: Diabetes Mellitus, Other (Thyroid nodule) - Past Surgical History Past Surgical History: Yes: Joint Replacement - Alcohol/Substance Use Hx Alcohol Use: No History of Substance Use: reports: None - Smoking History Smoking history: Former smoker Have you smoked in the past 12 months: No Aproximately how many cigarettes per day: 0 If you are a former smoker, when did you quit?: many years ago - Social History Usual Living Arrangement: Alone ADL: Support Services History of Recent Travel: No Home Medications - Allergies Allergies/Adverse Reactions: Allergies Allergy/AdvReac Type Severity Reaction Status Date / Time ciprofloxacin [From Cipro] Allergy Verified 01/23/19 15:11 ciprofloxacin HCl Allergy Verified 01/23/19 15:11 [From Cipro] - Home Medications Home Medications: Ambulatory Orders Lisinopril [Zestril] 40 mg PO DAILY 12/29/16 Simvastatin 40 mg PO DAILY 12/29/16 Omeprazole Magnesium [Prilosec Otc] 40 mg PO DAILY 09/06/17 Sertraline HCl [Zoloft -] 50 mg PO DAILY 09/09/17 Apixaban [Eliquis -] 5 mg PO BID #0 tablet 09/27/17 Albuterol Sulfate [Proair Respiclick] 90 mcg IH Q4H PRN 02/27/18 Amlodipine Besylate [Norvasc -] 10 mg PO DAILY 30 Days #30 tablet 05/17/18 Ferrous Sulfate 325 mg PO BID 06/17/18 Salmeterol/Fluticasone [Advair 100Mcg/50Mcg -] 1 inh PO BID 06/17/18 Insulin (Levemir) [Levemir Vial] 17 units SQ 0700 #2 vial 06/18/18 Nebivolol [Bystolic -] 5 mg PO DAILY #14 tab 06/19/18 Albuterol 0.083% Nebulizer Jesika [Ventolin 0.083% Nebulizer Soln -] 1 neb NEB PRN PRN 08/29/18 Repaglinide [Prandin -] 1 mg PO TID 08/29/18 Acetaminophen 500 mg PO TID 09/02/18 Fluticasone Propion/Salmeterol [Fluticasone-Salmeterol 500-50] 500 mg IH BID 02/12 Furosemide [Lasix -] 40 mg PO BID@0600,1400 30 Days #60 tablet 09/05/18 Spironolactone [Aldactone -] 50 mg PO DAILY 30 Days #60 tablet 09/05/18 Miscellaneous Drug Not In Syst [Outpatient Lab Test] 1 each ASDIR #1 misc Family Disease History - Family Disease History Family Disease History: Diabetes: Mother, Heart Disease: Father, Other: Brother (HTN, ), Daughter (alive and well) Review of Systems - Review of Systems Constitutional: reports: No Symptoms Eyes: reports: No Symptoms HENT: reports: No Symptoms Neck: reports: No Symptoms Cardiovascular: reports: No Symptoms Respiratory: reports: No Symptoms Gastrointestinal: reports: No Symptoms Genitourinary: reports: No Symptoms Breasts: reports: No Symptoms Reported Musculoskeletal: reports: No Symptoms Integumentary: reports: No Symptoms Neurological: reports: No Symptoms Endocrine: reports: No Symptoms Hematology/Lymphatic: reports: No Symptoms Psychiatric: reports: No Symptoms Physical Exam Vital Signs: Vital Signs Temperature 97.9 F 01/24/19 13:41 Pulse Rate 54 L 01/24/19 13:41 Respiratory Rate 18 01/24/19 13:41 Blood Pressure 111/46 L 01/24/19 13:41 O2 Sat by Pulse Oximetry (%) 97 01/24/19 09:00 Constitutional: Yes: Well Nourished, No Distress, Calm Eyes: Yes: WNL, Conjunctiva Clear, EOM Intact HENT: Yes: WNL, Atraumatic, Normocephalic Cardiovascular: Yes: WNL, Murmur Respiratory: Yes: WNL, Regular, CTA Bilaterally Gastrointestinal: Yes: Normal Bowel Sounds ...Rectal Exam: Yes: Deferred Extremities: Yes: WNL Integumentary: Yes: WNL Neurological: Yes: WNL ...Motor Strength: WNL Labs: CBC, BMP 01/24/19 15:35 01/24/19 07:20 Assessment/Plan 83 y/o lady presenting with possible GI Bleed and diarrhea. Hematology consulted for Eosinophilia Recommend: 1) Agree with Strongyloides testing. Consider Stool O+P. 2) Repeat CBC with manual diff in AM 3) New medications, occult infections or a new reaction to one of her medications can also be at fault. 4) If Eosinophilia persists, consider ordering: Serum tryptase, B12 levels, Serum Immunoglobulins, Peripheral Blood Flow Cytometry, BCR-ABL, JAK2 and FIP1L1 -PDGFRA tests. 5) Thank you very much for this consultation
[2019-01-24] MEDS: ATORVASTATIN CA 20 MG TABLET (FP) PO SCH (21:42)
[2019-01-24 21:51] LABS: HEMATOCRIT 31.7 % (32.4-45.2); HEMOGLOBIN 10.4 GM/dL (10.7-15.3); MCH 29.9 pg (25.7-33.7); MCHC 32.9 g/dl (32.0-36.0); MEAN CELL VOLUME 90.8 fl (80-96); MEAN PLT VOLUME 8.7 fl (7.5-11.1); PLATELET COUNT 189 K/MM3 (134-434); RBC 3.49 M/mm3 (3.60-5.2); RDW 16.1 % (11.6-15.6); WHITE BLOOD COUNT 6.6 K/mm3 (4.0-10.0)
[2019-01-25] MEDS: INSULIN SLIDING SCALE (NOVOLOG) 1 VIAL SQ SCH ×4 (06:36→21:35)
[2019-01-25] MEDS ORDERED: cefTRIAXone SODIUM 1 GM VIAL ONE (08:23)
[2019-01-25] MEDS ORDERED: DEXTROSE 5%-WATER - 50 ML IVPB ONE (08:23)
[2019-01-25 08:34] LABS: EOS % 21.2 % (0-4.5); HEMATOCRIT 32.1 % (32.4-45.2); HEMOGLOBIN 10.7 GM/dL (10.7-15.3); LYMPH % 14.8 % (8-40); MCH 30.2 pg (25.7-33.7); MCHC 33.3 g/dl (32.0-36.0); MEAN CELL VOLUME 90.7 fl (80-96); MEAN PLT VOLUME 8.8 fl (7.5-11.1); PLATELET COUNT 196 K/MM3 (134-434); RBC 3.54 M/mm3 (3.60-5.2); WHITE BLOOD COUNT 6.6 K/mm3 (4.0-10.0)
[2019-01-25 08:45] LABS: INR 1.34 (0.83-1.09); PROTHROMBIN TIME (PATIENT) 15.8 SEC (9.7-13.0)
[2019-01-25 08:54] LABS: ALBUMIN 3.1 g/dl (3.4-5.0); BILIRUBIN,TOTAL 0.2 mg/dL (0.2-1); BLOOD UREA NITROGEN 38.6 mg/dL (7-18); CALCIUM 8.9 mg/dL (8.5-10.1); CREATININE 1.4 mg/dL (0.55-1.3); MAGNESIUM 1.8 mg/dL (1.8-2.4); POTASSIUM 4.8 mmol/L (3.5-5.1); TOT PROT 5.5 g/dl (6.4-8.2)
[2019-01-25] MEDS: CEFTRIAXONE 1 GM in DEXTROSE 5%-WATER - 50 ML IVPB SCH (09:48)
[2019-01-25] MEDS: PANTOPRAZOLE 20 MG TABLET (FP) PO SCH (09:48)
[2019-01-25] MEDS: SPIRONOLACTONE 25 MG TABLET (FP) PO SCH (09:48)
[2019-01-25] MEDS: NEBIVOLOL 5 MG TABLET (FP) PO SCH (09:51)
[2019-01-25] MEDS: APIXABAN 2.5 MG TABLET PO SCH ×2 (09:51→21:35)
[2019-01-25] MEDS ORDERED: PT OWN MED DRAWER 7, Y5N ONE (09:51)
--- NOTE | 2019-01-25 09:59 | PN ---
Progress Note (short form) - Note Progress Note: Tolerating diet. Still complains of "diarrhea." States she does not know when she is going to have a bowel movement. Repeat rectal exam today: Lax sphincter tone. Pt not aware of finger in rectum. When asked to squeeze down on exam finger, there is no appreciable increase in pressure. No stool or blood on exam finger. Impression: Virtually complete lack of anorectal sensation and control, likely on the basis of spinal cord injury. This can be managed with scheduled enemas or a colostomy. Case discussed with hospitalist team.
[2019-01-25] MEDS ORDERED: SPIRONOLACTONE 25 MG TABLET (FP) PO SCH (10:00)
--- NOTE | 2019-01-25 11:14 | PN ---
Physical Exam: SUBJECTIVE: Patient seen and examined. Patient is lying comfortably at bedside.Pt denies any pain, SOB, fever, N/V OBJECTIVE: Vital Signs Period Temp Pulse Resp BP Sys/Mo Pulse Ox Last 24 Hr 97.8 F-98.7 F 54-59 18-20 95-156/40-64 97-100 GENERAL: The patient is awake, alert, and fully oriented, in no acute distress. HEAD: Normal with no signs of trauma. LUNGS: Breath sounds equal, clear to auscultation bilaterally, no wheezes, no crackles, no accessory muscle use. HEART: Regular rate and rhythm, S1, S2 without murmur, rub or gallop. ABDOMEN: Soft, nontender, nondistended, normoactive bowel sounds, no guarding, no rebound, no hepatosplenomegaly, no masses. Laboratory Results - last 24 hr 01/24/19 01/24/19 01/24/19 07:20 11:18 15:35 WBC 6.9 RBC 3.60 Hgb 10.8 Hct 32.8 MCV 91.2 MCH 30.1 MCHC 33.0 RDW 16.1 H Plt Count 182 MPV 8.9 Absolute Neuts (auto) Neutrophils % Neutrophils % (Manual) 46.5 Band Neutrophils % 0.0 Lymphocytes % Lymphocytes % (Manual) 12.9 D Monocytes % Monocytes % (Manual) 14 H D Eosinophils % Eosinophils % (Manual) 25.7 H D Basophils % Basophils % (Manual) 1.0 D Myelocytes % (Man) 0 Promyelocytes % (Man) 0 Blast Cells % (Manual) 0 Nucleated RBC % Metamyelocytes 0 Hypochromia 0 Platelet Estimate Normal Polychromasia 0 Poikilocytosis 1+ Anisocytosis 0 Microcytosis 0 Macrocytosis 0 Ovalocytes 1+ [place] Cells 1+ PT with INR INR Sodium Potassium Chloride Carbon Dioxide Anion Gap BUN Creatinine Est GFR (CKD-EPI)AfAm Est GFR (CKD-EPI)NonAf POC Glucometer 87 Random Glucose Calcium Magnesium Total Bilirubin AST ALT Alkaline Phosphatase Total Protein Albumin 01/24/19 01/24/19 01/24/19 16:56 21:35 21:40 WBC 6.6 RBC 3.49 L Hgb 10.4 L Hct 31.7 L MCV 90.8 MCH 29.9 MCHC 32.9 RDW 16.1 H Plt Count 189 MPV 8.7 Absolute Neuts (auto) Neutrophils % Neutrophils % (Manual) Band Neutrophils % Lymphocytes % Lymphocytes % (Manual) Monocytes % Monocytes % (Manual) Eosinophils % Eosinophils % (Manual) Basophils % Basophils % (Manual) Myelocytes % (Man) Promyelocytes % (Man) Blast Cells % (Manual) Nucleated RBC % Metamyelocytes Hypochromia Platelet Estimate Polychromasia Poikilocytosis Anisocytosis Microcytosis Macrocytosis Ovalocytes [place] Cells PT with INR INR Sodium Potassium Chloride Carbon Dioxide Anion Gap BUN Creatinine Est GFR (CKD-EPI)AfAm Est GFR (CKD-EPI)NonAf POC Glucometer 77 139 Random Glucose Calcium Magnesium Total Bilirubin AST ALT Alkaline Phosphatase Total Protein Albumin 01/25/19 01/25/19 01/25/19 06:34 07:30 07:30 WBC 6.6 RBC 3.54 L Hgb 10.7 Hct 32.1 L MCV 90.7 MCH 30.2 MCHC 33.3 RDW 16.0 H Plt Count 196 MPV 8.8 Absolute Neuts (auto) 3.4 Neutrophils % 52.0 Neutrophils % (Manual) Band Neutrophils % Lymphocytes % 14.8 D Lymphocytes % (Manual) Monocytes % 11.0 H Monocytes % (Manual) Eosinophils % 21.2 H* Eosinophils % (Manual) Basophils % 1.0 Basophils % (Manual) Myelocytes % (Man) Promyelocytes % (Man) Blast Cells % (Manual) Nucleated RBC % 0 Metamyelocytes Hypochromia Platelet Estimate Polychromasia Poikilocytosis Anisocytosis Microcytosis Macrocytosis Ovalocytes [place] Cells PT with INR 15.80 H INR 1.34 H Sodium Potassium Chloride Carbon Dioxide Anion Gap BUN Creatinine Est GFR (CKD-EPI)AfAm Est GFR (CKD-EPI)NonAf POC Glucometer 102 Random Glucose Calcium Magnesium Total Bilirubin AST ALT Alkaline Phosphatase Total Protein Albumin 01/25/19 07:30 WBC RBC Hgb Hct MCV MCH MCHC RDW Plt Count MPV Absolute Neuts (auto) Neutrophils % Neutrophils % (Manual) Band Neutrophils % Lymphocytes % Lymphocytes % (Manual) Monocytes % Monocytes % (Manual) Eosinophils % Eosinophils % (Manual) Basophils % Basophils % (Manual) Myelocytes % (Man) Promyelocytes % (Man) Blast Cells % (Manual) Nucleated RBC % Metamyelocytes Hypochromia Platelet Estimate Polychromasia Poikilocytosis Anisocytosis Microcytosis Macrocytosis Ovalocytes [place] Cells PT with INR INR Sodium 142 Potassium 4.8 Chloride 113 H Carbon Dioxide 21 Anion Gap 7 L BUN 38.6 H Creatinine 1.4 H Est GFR (CKD-EPI)AfAm 39.89 Est GFR (CKD-EPI)NonAf 34.42 POC Glucometer Random Glucose 93 Calcium 8.9 Magnesium 1.8 Total Bilirubin 0.2 AST 12 L ALT 15 Alkaline Phosphatase 54 Total Protein 5.5 L Albumin 3.1 L Active Medications Generic Name Dose Route Start Last Admin Trade Name Freq PRN Reason Stop Dose Admin Apixaban 2.5 mg 01/25/19 10:00 01/25/19 09:51 Eliquis - PO 2.5 mg BID PK Administration Atorvastatin Calcium 20 mg 01/24/19 22:00 01/24/19 21:42 Lipitor - PO 20 mg HS PK Administration Ceftriaxone Sodium 1 gm/ 50 mls @ 100 mls/hr 01/23/19 21:30 01/25/19 09:48 Dextrose IVPB 100 mls/hr DAILY PK Administration Protocol Insulin Aspart 1 vial 01/23/19 22:00 01/25/19 06:36 Novolog Vial Sliding Scale - SQ Not Given ACHS PK Protocol Nebivolol 5 mg 01/25/19 10:00 01/25/19 09:51 Bystolic - PO 5 mg DAILY PK Administration Pantoprazole Sodium 20 mg 01/25/19 10:00 01/25/19 09:48 Protonix - PO 20 mg DAILY PK Administration Spironolactone 25 mg 01/25/19 10:00 01/25/19 09:48 Aldactone - PO 25 mg DAILY PK Administration ASSESSMENT/PLAN: Patient is an 83 year old woman with a past medical history of afib (on eliquis) , HTN, DM, HLD, asthma, COPD (4LNC at home), arthritis and CHF who presents with 3 days of dark and diarrhea. Acute GI Bleed no bleeding noted. Patient had a BM today with no blood on or in the stool. Protonix D/C as per GI recommendations and started on a diet. Pt bleeding has been stable with most recent at 10.7 Eosinophilia strongolides antigen testing received, will follow the result Dysuria no further symptoms urine cx prelim Lactose fermenting Neg Bacilli DM Novolog sliding scale HTN Lisinipril, norvasc bystolic 5 mg daily afib on Eliquis was initially held / GI bleed resumed eliquis at 2.5 mg BID today 01/25/19 Visit type - Emergency Visit Emergency Visit: Yes ED Registration Date: 01/23/19 Care time: The patient presented to the Emergency Department on the above date and was hospitalized for further evaluation of their emergent condition. - New Patient This patient is new to me today: Yes Date on this admission: 01/25/19 - Critical Care Critical Care patient: No - Discharge Referral Referred to [facility] Med P.C.: No ATTENDING PHYSICIAN STATEMENT I saw and evaluated the patient. I reviewed the resident's note and discussed the case with the resident. I agree with the resident's findings and plan as documented. SUBJECTIVE: OBJECTIVE: ASSESSMENT AND PLAN:
[2019-01-25 12:17] LABS: ANISOCYTOSIS 2+; MACROCYTOSIS 0; OVALOCYTE 1+; PLATELET ESTIMATE NORMAL; TEAR DROP CELLS 1+
--- NOTE | 2019-01-25 15:32 | PN ---
Teaching Attending Note Name of Resident: Johana Finch ATTENDING PHYSICIAN STATEMENT I saw and evaluated the patient. I reviewed the resident's note and discussed the case with the resident. I agree with the resident's findings and plan as documented. SUBJECTIVE: Patient is comfortable with no acute distress, no further diarrhea. OBJECTIVE: Vital Signs Temperature 98 F 01/25/19 10:29 Pulse Rate 54 L 01/25/19 10:29 Respiratory Rate 18 01/25/19 10:29 Blood Pressure 127/64 01/25/19 10:29 O2 Sat by Pulse Oximetry (%) 100 01/25/19 09:00 GENERAL: The patient is awake, alert, and fully oriented, in no acute distress. HEAD: Normal with no signs of trauma. EYES: PERRL, extraocular movements intact, sclera anicteric, conjunctiva clear. ENT: Ears normal, oropharynx clear without exudates, moist mucous membranes. NECK: Trachea midline, full range of motion, supple. LUNGS: Breath sounds equal, clear to auscultation bilaterally, no wheezes, no crackles, no accessory muscle use. HEART: JAZMYN 3/6 , sinus bradycardia , S1, S2 positive , no rub or gallop. ABDOMEN: Soft, nontender, nondistended, normoactive bowel sounds, no guarding, no rebound, no hepatosplenomegaly, no masses. EXTREMITIES: 2+ pulses, warm, well-perfused, no edema. NEUROLOGICAL: Cranial nerves II through XII grossly intact. Normal speech, gait not observed. PSYCH: Normal mood, normal affect. SKIN: Warm, dry, normal turgor, no rashes or lesions noted Rectal exam: as per GI dr. donnelly , hemoccult negative CBCD WBC 6.6 K/mm3 (4.0-10.0) 01/25/19 07:30 RBC 3.54 M/mm3 (3.60-5.2) L 01/25/19 07:30 Hgb 10.7 GM/dL (10.7-15.3) 01/25/19 07:30 Hct 32.1 % (32.4-45.2) L 01/25/19 07:30 MCV 90.7 fl (80-96) 01/25/19 07:30 MCHC 33.3 g/dl (32.0-36.0) 01/25/19 07:30 RDW 16.0 % (11.6-15.6) H 01/25/19 07:30 Plt Count 196 K/MM3 (134-434) 01/25/19 07:30 MPV 8.8 fl (7.5-11.1) 01/25/19 07:30 CMP Sodium 142 mmol/L (136-145) 01/25/19 07:30 Potassium 4.8 mmol/L (3.5-5.1) 01/25/19 07:30 Chloride 113 mmol/L (98-107) H 01/25/19 07:30 Carbon Dioxide 21 mmol/L (21-32) 01/25/19 07:30 Anion Gap 7 MMOL/L (8-16) L 01/25/19 07:30 BUN 38.6 mg/dL (7-18) H 01/25/19 07:30 Creatinine 1.4 mg/dL (0.55-1.3) H 01/25/19 07:30 Random Glucose 93 mg/dL (74-106) 01/25/19 07:30 Calcium 8.9 mg/dL (8.5-10.1) 01/25/19 07:30 Total Bilirubin 0.2 mg/dL (0.2-1) 01/25/19 07:30 AST 12 U/L (15-37) L 01/25/19 07:30 ALT 15 U/L (13-61) 01/25/19 07:30 Alkaline Phosphatase 54 U/L (45-117) 01/25/19 07:30 Total Protein 5.5 g/dl (6.4-8.2) L 01/25/19 07:30 Albumin 3.1 g/dl (3.4-5.0) L 01/25/19 07:30 Current Medications Generic Name Dose Route Start Last Admin Trade Name Freq PRN Reason Stop Dose Admin Apixaban 2.5 mg 01/25/19 10:00 01/25/19 09:51 Eliquis - PO 2.5 mg BID PK Administration Atorvastatin Calcium 20 mg 01/24/19 22:00 01/24/19 21:42 Lipitor - PO 20 mg HS PK Administration Ceftriaxone Sodium 1 gm/ 50 mls @ 100 mls/hr 01/23/19 21:30 01/25/19 09:48 Dextrose IVPB 100 mls/hr DAILY PK Administration Protocol Insulin Aspart 1 vial 01/23/19 22:00 01/25/19 12:20 Novolog Vial Sliding Scale - SQ 2 units ACHS PK Administration Protocol Nebivolol 5 mg 01/25/19 10:00 01/25/19 09:51 Bystolic - PO 5 mg DAILY PK Administration Pantoprazole Sodium 20 mg 01/25/19 10:00 01/25/19 09:48 Protonix - PO 20 mg DAILY PK Administration Spironolactone 25 mg 01/25/19 10:00 01/25/19 09:48 Aldactone - PO 25 mg DAILY PK Administration Home Medications Medication Instructions Recorded Lisinopril [Zestril] 40 mg PO DAILY 12/29/16 Simvastatin 40 mg PO DAILY 12/29/16 Omeprazole Magnesium [Prilosec Otc] 40 mg PO DAILY 09/06/17 Sertraline HCl [Zoloft -] 50 mg PO DAILY 09/09/17 Apixaban [Eliquis -] 5 mg PO BID #0 tablet 09/27/17 Albuterol Sulfate [Proair 90 mcg IH Q4H PRN 02/27/18 Respiclick] Amlodipine Besylate [Norvasc -] 10 mg PO DAILY 30 Days #30 tablet 05/17/18 Ferrous Sulfate 325 mg PO BID 06/17/18 Salmeterol/Fluticasone [Advair 1 inh PO BID 06/17/18 100Mcg/50Mcg -] Insulin (Levemir) [Levemir Vial] 17 units SQ 0700 #2 vial 06/18/18 Nebivolol [Bystolic -] 5 mg PO DAILY #14 tab 06/19/18 Albuterol 0.083% Nebulizer Jesika 1 neb NEB PRN PRN 08/29/18 [Ventolin 0.083% Nebulizer Soln -] Repaglinide [Prandin -] 1 mg PO TID 08/29/18 Acetaminophen 500 mg PO TID 09/02/18 Fluticasone Propion/Salmeterol 500 mg IH BID 09/02/18 [Fluticasone-Salmeterol 500-50] Furosemide [Lasix -] 40 mg PO BID@0600,1400 30 Days #60 09/05/18 tablet Spironolactone [Aldactone -] 50 mg PO DAILY 30 Days #60 tablet 09/05/18 Miscellaneous Drug Not In Syst 1 each ASDIR #1 misc 09/09/18 [Outpatient Lab Test] ASSESSMENT AND PLAN: Patient is an 83 year old woman with a past medical history of afib (on eliquis) , HTN, DM, HLD, asthma, COPD (4LNC at home), arthritis and CHF who presents with 3 days of dark and diarrhea. #Acute GI Bleed: no bleeding noted , patient denies at this point , will follow , Protonix, gi on the case # Eosinophilia- will get strongolides antigen ordered , follow the result , oncologist seen the patient and ordered stool and ova, Serum tryptase, B12 levels, if eosinophilia persist then kyra order : as per oncologist Serum Immunoglobulins, Peripheral Blood Flow Cytometry, BCR-ABL, JAK2 and FIP1L1 -PDGFRA tests. # Dysuria: no further symptoms will discontinue after am dose, follow urine cx # DM: Novolog sliding scale # Hx of HTN : Lisinipril, norvasc, bystolic on hold now since having normotension. # Hx of afib: on Eliquis DVT px; SCds , Eliqiuis is on hold now GI PPx : Protonix 40 mg IVPUSH BID
[2019-01-25] MEDS: ATORVASTATIN CA 20 MG TABLET (FP) PO SCH (21:35)
[2019-01-26] MEDS: INSULIN SLIDING SCALE (NOVOLOG) 1 VIAL SQ SCH ×4 (06:02→21:44)
[2019-01-26 07:39] LABS: BASO % 0.5 % (0-2.0); EOS % 16.8 % (0-4.5); HEMATOCRIT 30.3 % (32.4-45.2); HEMOGLOBIN 10.1 GM/dL (10.7-15.3); LYMPH % 16.6 % (8-40); MCHC 33.3 g/dl (32.0-36.0); MEAN CELL VOLUME 90.3 fl (80-96); MEAN PLT VOLUME 9.1 fl (7.5-11.1); MONO % 10.5 % (3.8-10.2); NEUT % 55.6 % (42.8-82.8); PLATELET COUNT 178 K/MM3 (134-434); RBC 3.35 M/mm3 (3.60-5.2); WHITE BLOOD COUNT 7.3 K/mm3 (4.0-10.0)
[2019-01-26] MEDS ORDERED: PT OWN MED DRAWER 7, Y5N ONE (09:22)
[2019-01-26] MEDS ORDERED: DEXTROSE 5%-WATER - 50 ML IVPB ONE (09:22)
[2019-01-26] MEDS ORDERED: cefTRIAXone SODIUM 1 GM VIAL ONE (09:22)
[2019-01-26] MEDS: SPIRONOLACTONE 25 MG TABLET (FP) PO SCH (10:48)
[2019-01-26] MEDS: CEFTRIAXONE 1 GM in DEXTROSE 5%-WATER - 50 ML IVPB SCH (10:48)
[2019-01-26] MEDS: APIXABAN 2.5 MG TABLET PO SCH ×2 (10:48→21:44)
[2019-01-26] MEDS: NEBIVOLOL 5 MG TABLET (FP) PO SCH (10:48)
[2019-01-26] MEDS: PANTOPRAZOLE 20 MG TABLET (FP) PO SCH (10:48)
[2019-01-26] MEDS ORDERED: INSULIN (NOVOLOG) ASPART 100 UNITS/ML 10ML VIAL ONE ×2 (11:54→21:38)
--- NOTE | 2019-01-26 14:18 | PN ---
Progress Note (short form) - Note Progress Note: Patient is feeling better with no acute distress, no shortness of breath. No fever or chills, no abdominal pain. Vital Signs Temperature 98.2 F 01/26/19 09:16 Pulse Rate 56 L 01/26/19 09:16 Respiratory Rate 17 01/26/19 09:16 Blood Pressure 113/46 L 01/26/19 09:16 O2 Sat by Pulse Oximetry (%) 100 01/25/19 21:00 GENERAL: The patient is awake, alert, and fully oriented, in no acute distress. HEAD: Normal with no signs of trauma. EYES: PERRL, extraocular movements intact, sclera anicteric, conjunctiva clear. ENT: Ears normal, oropharynx clear without exudates, moist mucous membranes. NECK: Trachea midline, full range of motion, supple. LUNGS: Breath sounds equal, clear to auscultation bilaterally, no wheezes, no crackles, no accessory muscle use. HEART: JAZMYN 3/6 , sinus bradycardia , S1, S2 positive , no rub or gallop. ABDOMEN: Soft, nontender, nondistended, normoactive bowel sounds, no guarding, no rebound, no hepatosplenomegaly, no masses. EXTREMITIES: 2+ pulses, warm, well-perfused, no edema. NEUROLOGICAL: Cranial nerves II through XII grossly intact. Normal speech, gait not observed. PSYCH: Normal mood, normal affect. SKIN: Warm, dry, normal turgor, no rashes or lesions noted Rectal exam: as per GI dr. donnelly , hemoccult negative CBCD WBC 7.3 K/mm3 (4.0-10.0) 01/26/19 06:10 RBC 3.35 M/mm3 (3.60-5.2) L 01/26/19 06:10 Hgb 10.1 GM/dL (10.7-15.3) L 01/26/19 06:10 Hct 30.3 % (32.4-45.2) L 01/26/19 06:10 MCV 90.3 fl (80-96) 01/26/19 06:10 MCHC 33.3 g/dl (32.0-36.0) 01/26/19 06:10 RDW 16.0 % (11.6-15.6) H 01/26/19 06:10 Plt Count 178 K/MM3 (134-434) 01/26/19 06:10 MPV 9.1 fl (7.5-11.1) 01/26/19 06:10 CMP Sodium 142 mmol/L (136-145) 01/25/19 07:30 Potassium 4.8 mmol/L (3.5-5.1) 01/25/19 07:30 Chloride 113 mmol/L (98-107) H 01/25/19 07:30 Carbon Dioxide 21 mmol/L (21-32) 01/25/19 07:30 Anion Gap 7 MMOL/L (8-16) L 01/25/19 07:30 BUN 38.6 mg/dL (7-18) H 01/25/19 07:30 Creatinine 1.4 mg/dL (0.55-1.3) H 01/25/19 07:30 Random Glucose 93 mg/dL (74-106) 01/25/19 07:30 Calcium 8.9 mg/dL (8.5-10.1) 01/25/19 07:30 Total Bilirubin 0.2 mg/dL (0.2-1) 01/25/19 07:30 AST 12 U/L (15-37) L 01/25/19 07:30 ALT 15 U/L (13-61) 01/25/19 07:30 Alkaline Phosphatase 54 U/L (45-117) 01/25/19 07:30 Total Protein 5.5 g/dl (6.4-8.2) L 01/25/19 07:30 Albumin 3.1 g/dl (3.4-5.0) L 01/25/19 07:30 Current Medications Generic Name Dose Route Start Last Admin Trade Name Freq PRN Reason Stop Dose Admin Apixaban 2.5 mg 01/25/19 10:00 01/26/19 10:48 Eliquis - PO 2.5 mg BID PK Administration Atorvastatin Calcium 20 mg 01/24/19 22:00 01/25/19 21:35 Lipitor - PO 20 mg HS PK Administration Ceftriaxone Sodium 1 gm/ 50 mls @ 100 mls/hr 01/23/19 21:30 01/26/19 10:48 Dextrose IVPB 100 mls/hr DAILY PK Administration Protocol Insulin Aspart 1 vial 01/23/19 22:00 01/26/19 11:55 Novolog Vial Sliding Scale - SQ 2 units ACHS PK Administration Protocol Nebivolol 5 mg 01/25/19 10:00 01/26/19 10:48 Bystolic - PO 5 mg DAILY PK Administration Pantoprazole Sodium 20 mg 01/25/19 10:00 01/26/19 10:48 Protonix - PO 20 mg DAILY PK Administration Spironolactone 25 mg 01/25/19 10:00 01/26/19 10:48 Aldactone - PO 25 mg DAILY PK Administration Home Medications Medication Instructions Recorded Lisinopril [Zestril] 40 mg PO DAILY 12/29/16 Simvastatin 40 mg PO DAILY 12/29/16 Omeprazole Magnesium [Prilosec Otc] 40 mg PO DAILY 09/06/17 Sertraline HCl [Zoloft -] 50 mg PO DAILY 09/09/17 Apixaban [Eliquis -] 5 mg PO BID #0 tablet 09/27/17 Albuterol Sulfate [Proair 90 mcg IH Q4H PRN 02/27/18 Respiclick] Amlodipine Besylate [Norvasc -] 10 mg PO DAILY 30 Days #30 tablet 05/17/18 Ferrous Sulfate 325 mg PO BID 06/17/18 Salmeterol/Fluticasone [Advair 1 inh PO BID 06/17/18 100Mcg/50Mcg -] Insulin (Levemir) [Levemir Vial] 17 units SQ 0700 #2 vial 06/18/18 Nebivolol [Bystolic -] 5 mg PO DAILY #14 tab 06/19/18 Albuterol 0.083% Nebulizer Jesika 1 neb NEB PRN PRN 08/29/18 [Ventolin 0.083% Nebulizer Soln -] Repaglinide [Prandin -] 1 mg PO TID 08/29/18 Acetaminophen 500 mg PO TID 09/02/18 Fluticasone Propion/Salmeterol 500 mg IH BID 09/02/18 [Fluticasone-Salmeterol 500-50] Furosemide [Lasix -] 40 mg PO BID@0600,1400 30 Days #60 09/05/18 tablet Spironolactone [Aldactone -] 50 mg PO DAILY 30 Days #60 tablet 09/05/18 Miscellaneous Drug Not In Syst 1 each ASDIR #1 misc 09/09/18 [Outpatient Lab Test] Microbiology 01/23/19 18:30 Urine - Urine Clean Catch Urine Culture - Final Klebsiella Pneumoniae Escherichia Coli Laboratory Tests 01/23/19 01/24/19 01/25/19 16:54 07:20 07:30 Eosinophils % 16.5 H D 24.4 H* Strongyloides IgG Ab Pending 01/25/19 01/26/19 07:30 06:10 Eosinophils % 21.2 H* 16.8 H Strongyloides IgG Ab Microbiology 01/23/19 18:30 Urine - Urine Clean Catch Urine Culture - Final Klebsiella Pneumoniae Escherichia Coli ASSESSMENT AND PLAN: Patient is an 83 year old woman with a past medical history of afib (on eliquis) , HTN, DM, HLD, asthma, COPD (4LNC at home), arthritis and CHF who presents with 3 days of dark and diarrhea. # aCUTE UTI Klebsiella Pneumoniae , Escherichia Coli on IV Rocephin continue #Acute GI Bleed: no further bleeding noted , patient denies at this point , will follow, On PO Protonix, gi on the case # Eosinophilia- will get strongolides antigen ordered , will follow the result , oncologist seen the patient and ordered stool and ova, Serum tryptase, B12 levels, if eosinophilia persist then kyra order : as per oncologist , Serum Immunoglobulins, Peripheral Blood Flow Cytometry, BCR-ABL, JAK2 and FIP1L1- PDGFRA tests. # Dysuria: no further symptoms will discontinue after am dose, follow urine cx # DM: Novolog sliding scale # Hx of HTN : on Bystolic and spironolactone, hold Lisinipril, norvasc, on hold since having normotension. # Hx of afib: on Eliquis DVT px; SCds , Eliqiuis GI PPx : Protonix follow strongiloides result possible dc in am Visit type - Emergency Visit Emergency Visit: Yes ED Registration Date: 01/23/19 Care time: The patient presented to the Emergency Department on the above date and was hospitalized for further evaluation of their emergent condition. - New Patient This patient is new to me today: No - Critical Care Critical Care patient: No - Discharge Referral Referred to [facility] Med P.C.: No
[2019-01-26] MEDS: ATORVASTATIN CA 20 MG TABLET (FP) PO SCH (21:44)
[2019-01-27] MEDS: INSULIN SLIDING SCALE (NOVOLOG) 1 VIAL SQ SCH ×2 (06:06→11:14)
[2019-01-27] MEDS ORDERED: cefTRIAXone SODIUM 1 GM VIAL ONE (07:33)
[2019-01-27] MEDS ORDERED: DEXTROSE 5%-WATER - 50 ML IVPB ONE (07:33)
[2019-01-27] MEDS: PANTOPRAZOLE 20 MG TABLET (FP) PO SCH (09:17)
[2019-01-27] MEDS: APIXABAN 2.5 MG TABLET PO SCH (09:17)
[2019-01-27] MEDS: SPIRONOLACTONE 25 MG TABLET (FP) PO SCH (09:17)
[2019-01-27] MEDS: NEBIVOLOL 5 MG TABLET (FP) PO SCH (09:18)
[2019-01-27] MEDS: CEFTRIAXONE 1 GM in DEXTROSE 5%-WATER - 50 ML IVPB SCH (09:21)
[2019-01-27] MEDS ORDERED: CEFUROXIME AXETIL 250 MG TABLET PO SCH (11:15)
[2019-01-27 12:57] VITALS: BP 143/52; PULSE 51; TEMP 98
--- NOTE | 2019-01-27 14:10 | DS ---
Physical Exam: SUBJECTIVE: Patient seen and examined. Pt was lying comfortably in bed. She had no complaints of bloody bowel movements or abdominal pain. OBJECTIVE: Vital Signs Period Temp Pulse Resp BP Sys/Mo Pulse Ox Last 24 Hr 98 F-98.8 F 50-54 18-18 125-159/48-76 98-100 PHYSICAL EXAM GENERAL: The patient is awake, alert, and fully oriented, in no acute distress. HEAD: Normal with no signs of trauma. LUNGS: Breath sounds equal, clear to auscultation bilaterally, no wheezes, no crackles, no accessory muscle use. HEART: Regular rate and rhythm, S1, S2 without murmur, rub or gallop. ABDOMEN: Soft, nontender, nondistended, normoactive bowel sounds, no guarding, no rebound, no hepatosplenomegaly, no masses. CBC,CMP WBC 7.3 K/mm3 (4.0-10.0) 01/26/19 06:10 RBC 3.35 M/mm3 (3.60-5.2) L 01/26/19 06:10 Hgb 10.1 GM/dL (10.7-15.3) L 01/26/19 06:10 Hct 30.3 % (32.4-45.2) L 01/26/19 06:10 MCV 90.3 fl (80-96) 01/26/19 06:10 MCH 30.0 pg (25.7-33.7) 01/26/19 06:10 MCHC 33.3 g/dl (32.0-36.0) 01/26/19 06:10 RDW 16.0 % (11.6-15.6) H 01/26/19 06:10 Plt Count 178 K/MM3 (134-434) 01/26/19 06:10 MPV 9.1 fl (7.5-11.1) 01/26/19 06:10 Absolute Neuts (auto) 4.1 K/mm3 (1.5-8.0) 01/26/19 06:10 Neutrophils % 55.6 % (42.8-82.8) 01/26/19 06:10 Neutrophils % (Manual) 47.5 % (42.8-82.8) 01/25/19 07:30 Band Neutrophils % 0.0 % 01/25/19 07:30 Lymphocytes % 16.6 % (8-40) 01/26/19 06:10 Lymphocytes % (Manual) 15.9 % (8-40) D 01/25/19 07:30 Monocytes % 10.5 % (3.8-10.2) H 01/26/19 06:10 Monocytes % (Manual) 13 % (3.8-10.2) H 01/25/19 07:30 Eosinophils % 16.8 % (0-4.5) H 01/26/19 06:10 Eosinophils % (Manual) 17.8 % (0-4.5) H 01/25/19 07:30 Basophils % 0.5 % (0-2.0) 01/26/19 06:10 Basophils % (Manual) 0.0 % (0-2.0) 01/25/19 07:30 Myelocytes % (Man) 0 % (0-2) 01/25/19 07:30 Promyelocytes % (Man) 0 % (0-2) 01/25/19 07:30 Blast Cells % (Manual) 0 % (0-0) 01/25/19 07:30 Nucleated RBC % 0 % (0-0) 01/26/19 06:10 Metamyelocytes 0 % (0-2) 01/25/19 07:30 Hypochromia 0 01/25/19 07:30 Platelet Estimate Normal 01/25/19 07:30 Platelet Comment Present 01/25/19 07:30 Polychromasia 0 01/25/19 07:30 Poikilocytosis 1+ 01/25/19 07:30 Basophilic Stippling 1+ 01/25/19 07:30 Anisocytosis 2+ 01/25/19 07:30 Microcytosis 2+ 01/25/19 07:30 Macrocytosis 0 01/25/19 07:30 Spherocytes 1+ 01/25/19 07:30 Tear Drop Cells 1+ 01/25/19 07:30 Ovalocytes 1+ 01/25/19 07:30 [place] Cells 1+ 01/25/19 07:30 Schistocytes 1+ 01/25/19 07:30 Sodium 142 mmol/L (136-145) 01/25/19 07:30 Potassium 4.8 mmol/L (3.5-5.1) 01/25/19 07:30 Chloride 113 mmol/L (98-107) H 01/25/19 07:30 Carbon Dioxide 21 mmol/L (21-32) 01/25/19 07:30 Anion Gap 7 MMOL/L (8-16) L 01/25/19 07:30 BUN 38.6 mg/dL (7-18) H 01/25/19 07:30 Creatinine 1.4 mg/dL (0.55-1.3) H 01/25/19 07:30 Est GFR (CKD-EPI)AfAm 39.89 01/25/19 07:30 Est GFR (CKD-EPI)NonAf 34.42 01/25/19 07:30 POC Glucometer 175 UNITS (80-120) 01/27/19 11:11 Random Glucose 93 mg/dL (74-106) 01/25/19 07:30 Lactic Acid 0.6 mmol/L (0.4-2.0) 01/23/19 16:54 Calcium 8.9 mg/dL (8.5-10.1) 01/25/19 07:30 Phosphorus 3.8 mg/dL (2.5-4.9) 01/24/19 07:20 Magnesium 1.8 mg/dL (1.8-2.4) 01/25/19 07:30 Total Bilirubin 0.2 mg/dL (0.2-1) 01/25/19 07:30 AST 12 U/L (15-37) L 01/25/19 07:30 ALT 15 U/L (13-61) 01/25/19 07:30 Alkaline Phosphatase 54 U/L (45-117) 01/25/19 07:30 Total Protein 5.5 g/dl (6.4-8.2) L 01/25/19 07:30 Albumin 3.1 g/dl (3.4-5.0) L 01/25/19 07:30 LABS Laboratory Results - last 24 hr 01/26/19 01/26/19 01/27/19 17:20 21:43 06:00 POC Glucometer 139 122 110 01/27/19 11:11 POC Glucometer 175 HOSPITAL COURSE: Date of Admission:01/23/19 83 year old F with a past medical history of afib (on eliquis), HTN, DM, HLD, asthma, COPD (4LNC at home), arthritis and CHF who presents with 3 days of dark , almost black, stools accompanied by 1 day of vomiting. The patient attributed her black stools to her iron supplements. In the ED, the patient was given 1L NS administered, obtained FOBT which was positive and EKG that showed Afib and slow ventricular response. UA was negative but with positive culture for klebsiella and E. coli. We gave her IV rocephin and discharging her on PO levoquin 500 mg for 2 days to complete treatment. Pt had no bloody bowel movement since admission. GI was consulted and decided that there were no procedural intervention needed at this time.Patient was found to have potassium on the high normal end so we decreased her spirinolactone to 25 mg PO daily. Pt is informed to follow up with Dr Diop in 2 weeks and her PCP Dr Ravi in one week. Date of Discharge: 01/27/19 Minutes to complete discharge: 35 Discharge Summary Reason For Visit: ACUTE KIDNEY INJURY, GASTROINTESTINAL HEMORRHAGE Current Active Problems SARA (acute kidney injury) (Acute) GI bleed (Acute) Condition: Stable - Instructions Diet, Activity, Other Instructions: You came into the ED because of multiple episodes of black stools. You were seen by a search marketing analyst and a color maker dyer while you were here.You were found to have a urinary tract Your symptoms have significantly improved and you are now stable enough to be discharged home We made some changes to your medications: we decreased your spironolactone to 25mg daily- please have BMP rechecked in 2 weeks We discontinued your iron pills Please take the antibiotic Ceftin 250mg twice a day for 2 days Please follow up with dr. ravi within one week please follow up with dr diop if you begin to have worsening chest pains, bleeding, shortness of breath please return to the ED Referrals: Arvind Ravi MD [Primary Care Provider] - 1 Week Manolo Diop MD [Staff Physician] - 2 Weeks Disposition: HOME - Home Medications Comprehensive Discharge Medication List: Ambulatory Orders Lisinopril [Zestril] 40 mg PO DAILY 12/29/16 Simvastatin 40 mg PO DAILY 12/29/16 Omeprazole Magnesium [Prilosec Otc] 40 mg PO DAILY 09/06/17 Apixaban [Eliquis -] 5 mg PO BID #0 tablet 09/27/17 Amlodipine Besylate [Norvasc -] 10 mg PO DAILY 30 Days #30 tablet 05/17/18 Salmeterol/Fluticasone [Advair 100Mcg/50Mcg -] 1 inh PO BID 06/17/18 Insulin (Levemir) [Levemir Vial] 17 units SQ 0700 #2 vial 06/18/18 Nebivolol [Bystolic -] 5 mg PO DAILY #14 tab 06/19/18 Repaglinide [Prandin -] 1 mg PO TID 08/29/18 Acetaminophen 500 mg PO TID 09/02/18 Cefuroxime Axetil [Ceftin -] 250 mg PO BID #4 tablet 01/27/19 Furosemide [Lasix -] 60 mg PO DAILY 01/27/19 Spironolactone [Aldactone -] 25 mg PO DAILY #30 tablet 01/27/19 Problem List - Problems (1) GI bleed Code(s): K92.2 - GASTROINTESTINAL HEMORRHAGE, UNSPECIFIED This patient is new to me today: No Emergency Visit: Yes ED Registration Date: 01/23/19 Care time: The patient presented to the Emergency Department on the above date and was hospitalized for further evaluation of their emergent condition. Critical Care patient: No - Discharge Referral Referred to [facility] Med P.C.: No ATTENDING PHYSICIAN STATEMENT I saw and evaluated the patient. I reviewed the resident's note and discussed the case with the resident. I agree with the resident's findings and plan as documented. SUBJECTIVE: OBJECTIVE: ASSESSMENT AND PLAN:
--- NOTE | 2019-01-27 14:56 | PN ---
Teaching Attending Note Name of Resident: Johana Finch ATTENDING PHYSICIAN STATEMENT I saw and evaluated the patient. I reviewed the resident's note and discussed the case with the resident. I agree with the resident's findings and plan as documented. SUBJECTIVE: Patient is comfortable with no acute distress, no nausea or vomiting, tolerating diet well. OBJECTIVE: Vital Signs Temperature 98 F 01/27/19 12:56 Pulse Rate 51 L 01/27/19 12:56 Respiratory Rate 18 01/27/19 12:56 Blood Pressure 143/52 L 01/27/19 12:56 O2 Sat by Pulse Oximetry (%) 100 01/27/19 08:45 GENERAL: The patient is awake, alert, and fully oriented, bed ridden. In NAD. HEAD: Normal with no signs of trauma. EYES: PERRL, extraocular movements intact, sclera anicteric, conjunctiva clear. ENT: Ears normal, oropharynx clear without exudates, moist mucous membranes. NECK: Trachea midline, full range of motion, supple. LUNGS: Breath sounds equal, clear to auscultation bilaterally, no wheezes, no crackles, no accessory muscle use. HEART: JAZMYN 3/6 , sinus bradycardia , S1, S2 positive , no rub or gallop. ABDOMEN: Soft, NT, ND, normoactive bowel sounds, no guarding, no rebound, no hepatosplenomegaly, no masses. EXTREMITIES: 2+ pulses, warm, well-perfused, no edema. NEUROLOGICAL: Cranial nerves II through XII grossly intact. Normal speech, gait not observed. PSYCH: Normal mood, normal affect. SKIN: Warm, dry, normal turgor, no rashes or lesions noted WBC 7.3 K/mm3 (4.0-10.0) 01/26/19 06:10 RBC 3.35 M/mm3 (3.60-5.2) L 01/26/19 06:10 Hgb 10.1 GM/dL (10.7-15.3) L 01/26/19 06:10 Hct 30.3 % (32.4-45.2) L 01/26/19 06:10 MCV 90.3 fl (80-96) 01/26/19 06:10 MCHC 33.3 g/dl (32.0-36.0) 01/26/19 06:10 RDW 16.0 % (11.6-15.6) H 01/26/19 06:10 Plt Count 178 K/MM3 (134-434) 01/26/19 06:10 MPV 9.1 fl (7.5-11.1) 01/26/19 06:10 CMP Sodium 142 mmol/L (136-145) 01/25/19 07:30 Potassium 4.8 mmol/L (3.5-5.1) 01/25/19 07:30 Chloride 113 mmol/L (98-107) H 01/25/19 07:30 Carbon Dioxide 21 mmol/L (21-32) 01/25/19 07:30 Anion Gap 7 MMOL/L (8-16) L 01/25/19 07:30 BUN 38.6 mg/dL (7-18) H 01/25/19 07:30 Creatinine 1.4 mg/dL (0.55-1.3) H 01/25/19 07:30 Random Glucose 93 mg/dL (74-106) 01/25/19 07:30 Calcium 8.9 mg/dL (8.5-10.1) 01/25/19 07:30 Total Bilirubin 0.2 mg/dL (0.2-1) 01/25/19 07:30 AST 12 U/L (15-37) L 01/25/19 07:30 ALT 15 U/L (13-61) 01/25/19 07:30 Alkaline Phosphatase 54 U/L (45-117) 01/25/19 07:30 Total Protein 5.5 g/dl (6.4-8.2) L 01/25/19 07:30 Albumin 3.1 g/dl (3.4-5.0) L 01/25/19 07:30 Current Medications Generic Name Dose Route Start Last Admin Trade Name Freq PRN Reason Stop Dose Admin Apixaban 2.5 mg 01/25/19 10:00 01/27/19 09:17 Eliquis - PO 2.5 mg BID PK Administration Atorvastatin Calcium 20 mg 01/24/19 22:00 01/26/19 21:44 Lipitor - PO 20 mg HS PK Administration Cefuroxime Axetil 250 mg 01/27/19 11:15 01/27/19 12:49 Ceftin - PO 250 mg BID PK Administration Ceftriaxone Sodium 1 gm/ 50 mls @ 100 mls/hr 01/23/19 21:30 01/27/19 09:21 Dextrose IVPB 100 mls/hr DAILY PK Administration Protocol Insulin Aspart 1 vial 01/23/19 22:00 01/27/19 11:14 Novolog Vial Sliding Scale - SQ 2 units ACHS PK Administration Protocol Nebivolol 5 mg 01/25/19 10:00 01/27/19 09:18 Bystolic - PO 5 mg DAILY PK Administration Pantoprazole Sodium 20 mg 01/25/19 10:00 01/27/19 09:17 Protonix - PO 20 mg DAILY PK Administration Spironolactone 25 mg 01/25/19 10:00 01/27/19 09:17 Aldactone - PO 25 mg DAILY PK Administration Home Medications Medication Instructions Recorded Lisinopril [Zestril] 40 mg PO DAILY 12/29/16 Simvastatin 40 mg PO DAILY 12/29/16 Omeprazole Magnesium [Prilosec Otc] 40 mg PO DAILY 09/06/17 Apixaban [Eliquis -] 5 mg PO BID #0 tablet 09/27/17 Amlodipine Besylate [Norvasc -] 10 mg PO DAILY 30 Days #30 tablet 05/17/18 Salmeterol/Fluticasone [Advair 1 inh PO BID 06/17/18 100Mcg/50Mcg -] Insulin (Levemir) [Levemir Vial] 17 units SQ 0700 #2 vial 06/18/18 Nebivolol [Bystolic -] 5 mg PO DAILY #14 tab 06/19/18 Repaglinide [Prandin -] 1 mg PO TID 08/29/18 Acetaminophen 500 mg PO TID 09/02/18 Cefuroxime Axetil [Ceftin -] 250 mg PO BID #4 tablet 01/27/19 Furosemide [Lasix -] 60 mg PO DAILY 01/27/19 Spironolactone [Aldactone -] 25 mg PO DAILY #30 tablet 01/27/19 01/23/19 18:30 Urine - Urine Clean Catch Urine Culture - Final Klebsiella Pneumoniae Escherichia Coli ASSESSMENT AND PLAN: Patient is an 83 year old woman with a past medical history of afib (on eliquis) , HTN, DM, HLD, asthma, COPD (4LNC at home), arthritis and CHF who presents with 3 days of dark and diarrhea. # Acute UTI Klebsiella Pneumoniae , Escherichia Coli s/p IV Rocephin continue will send her home on oral ceftin 250mg x 4 more days #Acute GI Bleed: no further bleeding noted , no further event . # Eosinophilia- trending down, will monitor , strongolides antigen ordered will follow the result , oncologist seen the patient and ordered stool and ova, Serum tryptase, B12 levels, if eosinophilia persist then kyra order : as per oncologist , Serum Immunoglobulins, Peripheral Blood Flow Cytometry, BCR-ABL , JAK2 and [id number] tests. # DM: Novolog sliding scale, continue home meds. # Hx of HTN : on Bystolic and spironolactone, hold Lisinipril, norvasc, on hold since having normotension. # Hx of afib: on Eliquis continue DVT px; SCds , Eliqiuis GI PPx : Protonix follow strongiloides result dc the patient
[2019-01-27 18:31] VITALS: BMI 29.5
== END 2019-01-27 16:07 | disposition home or self-care (01) | DRG 378 ==
LOC: JER 14:48 → JERBED 18:21 → J6S 21:43
PROVIDERS: ADMIT Internal Medicine; ATTEND Internal Medicine
DX: K92.2 Gastrointestinal hemorrhage, unspecified (principal); N39.0 Urinary tract infection, site not specified; N17.9 Acute kidney failure, unspecified; I10 Essential (primary) hypertension; E11.9 Type 2 diabetes mellitus without complications; I48.91 Unspecified atrial fibrillation; J45.909 Unspecified asthma, uncomplicated; D72.1 Eosinophilia; B96.1 Klebsiella pneumoniae [K. pneumoniae] as the cause of diseases classified elsewhere; B96.20 Unspecified Escherichia coli [E. coli] as the cause of diseases classified elsewhere; E78.5 Hyperlipidemia, unspecified; R19.7 Diarrhea, unspecified
CPT/HCPCS: 36415; 80053; 81003; 82272; 82962; 83605; 83735; 84100; 85025; 85027; 85610; 85730; 86682; 86850; 86900; 86901; 87086; 87186; 93005; 93010; 99283-25; J7030

== ENCOUNTER 2019-11-16 11:32 | Inpatient (IN) | payer OTHER ==
--- NOTE | 2019-11-16 11:42 | PDOC ---
History of Present Illness - General Stated Complaint: DIFFICULTY BREATHING Time Seen by Provider: 11/16/19 11:42 History Source: Patient Exam Limitations: No Limitations - History of Present Illness Initial Comments: 11/16/19 11:43 83yF w PMHx afib on eliquis, HFpEF, T2DM, pulm HTN, COPD on 3L NC, asthma, anxiety, GI bleed presenting w progressive worsening AMS and sudden onset epistaxis 2hrs ago. Pt is disoriented, only remembers she was sent by her daughter to the ED for epistaxis. Epistaxis resolved on ED arrival. Daughter noted pt was complaining of severe headache and moaning while nose was bleeding. Daughter is overwhelmed caring for pt, pt has not seen PCP for over 2 months. Pt denies fever, cough, chest pain/SOB, n/v, ABD pain, urinary/bowel mvmt changes. Past History - Medical History Allergies/Adverse Reactions: Allergies Allergy/AdvReac Type Severity Reaction Status Date / Time ciprofloxacin [From Cipro] Allergy Verified 01/23/19 15:11 ciprofloxacin HCl Allergy Verified 01/23/19 15:11 [From Cipro] Home Medications: Ambulatory Orders Simvastatin 40 mg PO DAILY 12/29/16 Omeprazole Magnesium [Prilosec Otc] 40 mg PO DAILY 09/06/17 Amlodipine Besylate [Norvasc -] 10 mg PO DAILY 30 Days #30 tablet 05/17/18 Nebivolol [Bystolic -] 5 mg PO DAILY #14 tab 06/19/18 Acetaminophen 500 mg PO TID 09/02/18 Insulin Glargine,Hum.rec.anlog [Lantus Solostar PEN -] 16 unit SQ AM 08/05/19 Sertraline HCl 50 mg PO DAILY 08/05/19 Furosemide [Lasix -] 20 mg PO DAILY #30 tablet 08/17/19 Lisinopril [Prinivil] 10 mg PO DAILY 30 Days #30 tablet 08/17/19 Pantoprazole Sodium [Protonix -] 40 mg PO BID tablet.ec 08/17/19 Polyethylene Glycol 3350 [Miralax 119 gm Btl -] 17 gm PO BID #1 bottle 08/17/19 predniSONE [Deltasone -] See Taper PO DAILY 5 Days #5 tablet 08/17/19 Anemia: Yes Asthma: Yes Cancer: Yes (SKIN / FOREHEAD 2010) Cardiac Disorders: Yes (A-fib, CAD, Angina, TR, MR, AV stenosis) CVA: Yes COPD: Yes (Asthma, pulmonary HTN) CHF: Yes Dementia: No Diabetes: Yes GI Disorders: No Disorders: No HTN: Yes Hypercholesterolemia: Yes Liver Disease: No Psychiatric Problems: Yes (depresion, anxiety) Seizures: No Thyroid Disease: No - Surgical History Abdominal Surgery: No Appendectomy: No Cardiac Surgery: No Cholecystectomy: No Lung Surgery: No Neurologic Surgery: No Orthopedic Surgery: Yes ((R) HIP REPLACEMENT 2007, revision 2015) - Immunization History Immunization Up to Date: Yes - Psycho-Social/Smoking History Smoking Status: No Smoking History: Former smoker Have you smoked in the past 12 months: No Number of Cigarettes Smoked Daily: 0 If you are a former smoker, when did you quit?: many years ago Cigars Per Day: 0 Review of Systems - Review of Systems Able to Perform ROS?: No (disoriented) *Physical Exam - Physical Exam General Appearance: Yes: Nourished, Appropriately Dressed. No: Apparent Distress HEENT: positive: EOMI, DELILAH, Normal Voice. negative: Scleral Icterus (R), Scleral Icterus (L), Nasal Congestion (no active bleeding. Dried blood R nare) Respiratory/Chest: positive: Crackles (james bases R>L). negative: Chest Tender, Accessory Muscle Use, Labored Respiration, Rhonchi, Stridor, Wheezing Cardiovascular: positive: S1, S2, Systolic Murmur, Irregularly Irregular Gastrointestinal/Abdominal: positive: Normal Bowel Sounds, Flat, Soft. negative: Tender, Organomegaly Musculoskeletal: negative: CVA Tenderness (R), CVA Tenderness (L) Integumentary: positive: Normal Color, Warm. negative: Dry Neurologic: positive: divorce mediator II-XII NML intact, Alert, Motor Strength 5/5, Responsive. negative: Fully Oriented (AOx2 not to time), Numbness ED Treatment Course - LABORATORY CBC & Chemistry Diagram: 11/16/19 12:00 11/16/19 12:00 Medical Decision Making - Medical Decision Making 11/16/19 12:[address] - no acute pathology CXR - cardiomegaly, LLL PNA, intersitial opacities R lung, small L pleural effusion EKG - a fib, L axis deviation, HR 65, QTc 422, TWI aVL --- 83yF w PMHx afib on eliquis, HFpEF, T2DM, pulm HTN, COPD on 3L NC, asthma, anxiety, GI bleed presenting w progressive worsening AMS and sudden onset epistaxis 2hrs ago. 1. Has LLL PNA and CHF exacerbation (swelling, elevated BNP). Low concern for COPD (no wheezing), O2sat wnl 2. UTI 3. AMS - Low concern for CVA (no localizing deficits, neg CT) 4. Epistaxis resolved on ED arrival Given azithromycin, rocephin Admit m/s for AMS, UTI, PNA, CHF exacerbation, suspected covid Discharge - Discharge Information Problems reviewed: Yes Clinical Impression/Diagnosis: AMS (altered mental status) Qualifiers: Altered mental status type: disorientation Qualified Code(s): R41.0 - D isorientation, unspecified PNA (pneumonia) Qualifiers: Pneumonia type: due to unspecified organism Laterality: left Lung location: lower lobe of lung Qualified Code(s): J18.9 - Pneumonia, unspecified organism UTI (urinary tract infection) Qualifiers: Urinary tract infection type: acute cystitis Hematuria presence: without hematuria Qualified Code(s): N30.00 - Acute cystitis without hematuria Acute exacerbation of CHF (congestive heart failure) Qualifiers: Heart failure type: unspecified Qualified Code(s): I50.9 - Heart failure, unspecified Condition: Stable - Follow up/Referral Referrals: Arvind Ravi MD [Primary Care Provider] - - Patient Discharge Instructions - Post Discharge Activity
[2019-11-16 12:12] VITALS: BMI 30.2
--- NOTE | 2019-11-16 12:15 | EKG ---
Test Reason : Blood Pressure : / mmHG Vent. Rate : 065 BPM Atrial Rate : 064 BPM P-R Int : 000 ms QRS Dur : 112 ms QT Int : 406 ms P-R-T Axes : 000 -59 106 degrees QTc Int : 422 ms POOR DATA QUALITY, INTERPRETATION MAY BE ADVERSELY AFFECTED ATRIAL FIBRILLATION LEFT AXIS DEVIATION IVCD /LBBB ABNORMAL ECG WHEN COMPARED WITH ECG OF 04-AUG-2019 16:58, No significant changes Confirmed by Ngiel Pino ([id number]) on 11/16/2019 12:15:24 PM Referred By: Confirmed By:Nigel Pino
[2019-11-16 13:02] LABS: BASO % 0.6 % (0-2.0); EOS % 1.9 % (0-4.5); HEMATOCRIT 30.2 % (32.4-45.2); HEMOGLOBIN 9.5 GM/dL (10.7-15.3); LYMPH % 8.1 % (8-40); MCH 26.1 pg (25.7-33.7); MCHC 31.3 g/dl (32.0-36.0); MEAN CELL VOLUME 83.5 fl (80-96); MEAN PLT VOLUME 9.5 fl (7.5-11.1); NEUT % 79.4 % (42.8-82.8); PLATELET COUNT 277 K/MM3 (134-434); RBC 3.62 M/mm3 (3.60-5.2); RDW 16.7 % (11.6-15.6); WHITE BLOOD COUNT 7.1 K/mm3 (4.0-10.0)
[2019-11-16 13:06] LABS: INR 1.69 (0.83-1.09); PROTHROMBIN TIME (PATIENT) 20.1 SEC (9.7-13.0)
[2019-11-16 13:09] LABS: EPI CELLS 2 /uL (0-25.1); HYALINE CASTS 1 /uL (0-3.1); URINE APPEARANCE CLEAR; URINE BILIRUBIN NEGATIVE (NEGATIVE); URINE COLOR YELLOW; URINE GLUCOSE (UA) NEGATIVE (NEGATIVE); URINE KETONE NEGATIVE (NEGATIVE); URINE LEUK ESTERASE 2+ (NEGATIVE); URINE NITRITE POSITIVE (NEGATIVE); URINE PROTEIN NEGATIVE (NEGATIVE); URINE RBC 11 /uL (0-23.9); URINE UROBILINOGEN 0.2 mg/dL (0.2-1.0); URINE WBC 483 /uL (0-25.8)
[2019-11-16 13:12] LABS: ALBUMIN 3.2 g/dl (3.4-5.0); BILIRUBIN,TOTAL 0.5 mg/dL (0.2-1); BLOOD UREA NITROGEN 38.1 mg/dL (7-18); CALCIUM 9.1 mg/dL (8.5-10.1); CREATININE 1.3 mg/dL (0.55-1.3); POTASSIUM 4.1 mmol/L (3.5-5.1); TOT PROT 6.7 g/dl (6.4-8.2)
[2019-11-16] MEDS ORDERED: CEFTRIAXONE 1 GM in DEXTROSE 5%-WATER - 100 ML IVPB ONE (13:45)
[2019-11-16] MEDS ORDERED: AZITHROMYCIN IVPB 500 MG in DEXTROSE 5%-WATER - 250 ML IVPB ONE (13:45)
[2019-11-16] MEDS ORDERED: CEFTRIAXONE 1 GM/50 ML BAG ONE (13:52)
[2019-11-16] MEDS ORDERED: AZITHROMYCIN IVPB 500 MG/250 ML BAG IVPB ONE (13:52)
--- NOTE | 2019-11-16 14:36 | PDOC ---
Documentation entered by Stefani Freed SCRIBE, acting as scribe for Kassy Linares MD. Kassy Linares MD: This documentation has been prepared by the Lourdes rosen Nirvannie, SCRIBE, under my direction and personally reviewed by me in its entirety. I confirm that the documentation accurately reflects all work, treatment, procedures, and medical decision making performed by me. Attending Attestation - Resident Resident Name: TamiDaniel - ED Attending Attestation I have performed the following: I have examined & evaluated the patient, The case was reviewed & discussed with the resident, I agree w/resident's findings & plan, Exceptions are as noted - HPI HPI: 11/16/19 13:51 Patient is a 83 year old female with a significant past medical history of Afib (on eliquis), HFpEF, T2DM, pulm HTN, COPD on 3L NC, asthma, anxiety, GI bleed who presents to the ED with progressively worsening altered mental status with associated two hours of epistaxis. Patient is a poor historian and can only recollect her daughter sending her in for epistaxis. As per daughter, the patient was complaining of a headache at the time of her epistaxis. Per daughter, the patient has not had PCP follow-up in > 2 months. While in the ED, the patient's epistaxis has since resolved. - Physicial Exam PE: GENERAL: Awake, alert, and oriented to person and place, in no acute distress HEAD: No signs of trauma EYES: PERRLA, EOMI, sclera anicteric, conjunctiva clear ENT: Auricles normal inspection, hearing grossly normal, nares patent, oropharynx clear without exudates. Moist mucosa NECK: Normal ROM, supple, no lymphadenopathy, JVD, or masses LUNGS: Good air entry B/L, +crackles at the bases B/L HEART: Regular rate and rhythm, normal S1 and S2, no murmurs, rubs or gallops ABDOMEN: Soft, nontender, normoactive bowel sounds. No guarding, no rebound. No masses EXTREMITIES: Normal range of motion, 2+ pitting edema to BLE. No clubbing or cyanosis. No cords, erythema, or tenderness NEUROLOGICAL: Cranial nerves II through XII grossly intact. Normal speech. Motor and sensation intact SKIN: Warm, dry, normal turgor, no rashes or lesions noted. - Medical Decision Making Pt with AMS, UTI, suspected CHF, pna. Will admit. Discharge - Discharge Information Problems reviewed: Yes Clinical Impression/Diagnosis: AMS (altered mental status) Qualifiers: Altered mental status type: disorientation Qualified Code(s): R41.0 - Disorientation, unspecified PNA (pneumonia) Qualifiers: Pneumonia type: due to unspecified organism Laterality: left Lung location: lower lobe of lung Qualified Code(s): J18.9 - Pneumonia, unspecified organism UTI (urinary tract infection) Qualifiers: Urinary tract infection type: acute cystitis Hematuria presence: without hematuria Qualified Code(s): N30.00 - Acute cystitis without hematuria Acute exacerbation of CHF (congestive heart failure) Qualifiers: Heart failure type: unspecified Qualified Code(s): I50.9 - Heart failure, unspecified Condition: Stable - Follow up/Referral - Patient Discharge Instructions - Post Discharge Activity
--- NOTE | 2019-11-16 15:23 | HP ---
CHIEF COMPLAINT: Altered mentation PCP: Dr Pompa HISTORY OF PRESENT ILLNESS: 83 year old Female with known history of Atrial fibrillation (on Eliquis), CHF, PUlmonary hypertension, DM 2, COPD on roasterman oxygen therapy (3 li NC) anxiety, GI bleed who was sent to the ED by family for confusion, altered mentation and epistaxis episode. Patient unable to give a good history. Reports her daughter sent her to ED. Since arriving in the ED, epistaxis has since resolved. Recent Travel: none PAST MEDICAL HISTORY: PAST SURGICAL HISTORY: hysterectomy, hip surgery, leg weakness Family history: unable to recall Social History: Smoking: denies Alcohol: denies Drugs: denies Allergies ciprofloxacin [From Cipro] Allergy (Verified 01/23/19 15:11) ciprofloxacin HCl [From Cipro] Allergy (Verified 01/23/19 15:11) HOME MEDICATIONS: Home Medications Medication Instructions Recorded Simvastatin 40 mg PO DAILY 12/29/16 Omeprazole Magnesium [Prilosec Otc] 40 mg PO DAILY 09/06/17 Amlodipine Besylate [Norvasc -] 10 mg PO DAILY 30 Days #30 tablet 05/17/18 Nebivolol [Bystolic -] 5 mg PO DAILY #14 tab 06/19/18 Acetaminophen 500 mg PO TID PRN 09/02/18 Insulin Glargine,Hum.rec.anlog 16 unit SQ AM 08/05/19 [Lantus Solostar PEN -] Sertraline HCl 50 mg PO DAILY 08/05/19 Furosemide [Lasix -] 20 mg PO DAILY #30 tablet 08/17/19 Lisinopril [Prinivil] 10 mg PO DAILY 30 Days #30 tablet 08/17/19 Pantoprazole Sodium [Protonix -] 40 mg PO BID tablet.ec 08/17/19 Polyethylene Glycol 3350 [Miralax 17 gm PO BID #1 bottle 08/17/19 119 gm Btl -] Ferrous Sulfate 325 mg PO DAILY 11/16/19 Multivitamin [Multiple Vitamins] 1 each PO DAILY 11/16/19 REVIEW OF SYSTEMS Unable to cooperate with history taking. PHYSICAL EXAMINATION Vital Signs - 24 hr 11/16/19 11/16/19 11/16/19 11:33 11:42 12:07 Temperature 98.8 F Pulse Rate 70 70 Respiratory 20 Rate Blood Pressure 164/77 O2 Sat by Pulse 97 97 98 Oximetry (%) GENERAL: Awake, alert, and oriented to place and self.; in no acute distress. HEAD: Normal with no signs of trauma. EYES: Pupils equal, round and reactive to light, extraocular movements intact, sclera anicteric, conjunctiva clear. No lid lag. EARS, NOSE, THROAT: oropharynx clear without exudates. Moist mucous membranes. NECK: Normal range of motion, supple without lymphadenopathy, positive JVD, no masses. LUNGS: crackles bilaterally from mid to lower lung hcin L>R HEART: Regular rate and rhythm, normal S1 and S2 without murmur, rub or gallop. ABDOMEN: Soft, nontender, not distended, normoactive bowel sounds, no guarding, no rebound, no masses. No hepatomegaly or splenomegaly. MUSCULOSKELETAL: Normal range of motion at all joints. No bony deformities or tenderness. No CVA tenderness. UPPER EXTREMITIES: 2+ pulses, warm, well-perfused. No cyanosis. No clubbing. No peripheral edema. LOWER EXTREMITIES: 2+ pulses, warm, well-perfused. No calf tenderness. No peripheral edema. Strength of bilateral lower extremities 3/5. She is unable to ambulate NEUROLOGICAL: Cranial nerves III-XII intact. Normal speech. Unable to ambulate PSYCHIATRIC: Cooperative. Good eye contact. Appropriate mood and affect. SKIN: Warm, dry, normal turgor, no rashes or lesions noted, normal capillary refill. Laboratory Results - last 24 hr 11/16/19 11/16/19 11/16/19 12:00 12:00 12:00 WBC RBC Hgb Hct MCV MCH MCHC RDW Plt Count MPV Absolute Neuts (auto) Neutrophils % Lymphocytes % Monocytes % Eosinophils % Basophils % Nucleated RBC % PT with INR 20.10 H INR 1.69 H Sodium 138 Potassium 4.1 Chloride 91 L Carbon Dioxide 40 H Anion Gap 7 L BUN 38.1 H Creatinine 1.3 Est GFR (CKD-EPI)AfAm 43.63 Est GFR (CKD-EPI)NonAf 37.64 POC Glucometer 166 Random Glucose 169 H Calcium 9.1 Total Bilirubin 0.5 AST 37 ALT 17 Alkaline Phosphatase 251 H B-Natriuretic Peptide Total Protein 6.7 Albumin 3.2 L Urine Color Urine Appearance Urine pH Ur Specific Crockett Urine Protein Urine Glucose (UA) Urine Ketones Urine Blood Urine Nitrite Urine Bilirubin Urine Urobilinogen Ur Leukocyte Esterase Urine WBC (Auto) Urine RBC (Auto) Urine Casts (Auto) U Epithel Cells (Auto) Urine Bacteria (Auto) 11/16/19 11/16/19 11/16/19 12:00 12:00 12:25 WBC 7.1 RBC 3.62 Hgb 9.5 L Hct 30.2 L MCV 83.5 MCH 26.1 D MCHC 31.3 L RDW 16.7 H Plt Count 277 MPV 9.5 Absolute Neuts (auto) 5.6 Neutrophils % 79.4 Lymphocytes % 8.1 D Monocytes % 10.0 Eosinophils % 1.9 D Basophils % 0.6 Nucleated RBC % 0 PT with INR INR Sodium Potassium Chloride Carbon Dioxide Anion Gap BUN Creatinine Est GFR (CKD-EPI)AfAm Est GFR (CKD-EPI)NonAf POC Glucometer Random Glucose Calcium Total Bilirubin AST ALT Alkaline Phosphatase B-Natriuretic Peptide 8441.5 H Total Protein Albumin Urine Color Yellow Urine Appearance Clear Urine pH 8.0 D Ur Specific [place] 1.012 Urine Protein Negative Urine Glucose (UA) Negative Urine Ketones Negative Urine Blood Negative Urine Nitrite Positive H Urine Bilirubin Negative Urine Urobilinogen 0.2 Ur Leukocyte Esterase 2+ H Urine WBC (Auto) 483 Urine RBC (Auto) 11 Urine Casts (Auto) 1 U Epithel Cells (Auto) 2 Urine Bacteria (Auto) >10,000 EKG shows afib, LBBB CXR: cardiomegaly with interval LLL consolidation/pneumonia as well as interstitial opacities CT head- no evidence of IC bleed or pathology ASSESSMENT/PLAN: 1. Epistaxis has resolved. -cont close observation 2. AMS, improved - likely more delirium as waxing and waning by history - cont close observation - treat Pneumonia and UTI empirically - await blood and urine cultures 3. CHF exacerbation - cont diuresis - weight daily 4. Afib - hold Eliquis as suffering from epistaxis - re-evaluate in am - rate is controlled 5. SCD for DVT prophylaxis Visit type - Emergency Visit Emergency Visit: Yes ED Registration Date: 11/16/19 Care time: The patient presented to the Emergency Department on the above date and was hospitalized for further evaluation of their emergent condition. - New Patient This patient is new to me today: Yes Date on this admission: 11/18/19 - Critical Care Critical Care patient: No
[2019-11-16 22:10] LABS: BASO % 0.5 % (0-2.0); EOS % 1.7 % (0-4.5); HEMATOCRIT 28.9 % (32.4-45.2); LYMPH % 6.7 % (8-40); MCH 26.4 pg (25.7-33.7); MCHC 31.3 g/dl (32.0-36.0); MEAN CELL VOLUME 84.3 fl (80-96); MONO % 9.5 % (3.8-10.2); NEUT % 81.6 % (42.8-82.8); PLATELET COUNT 238 K/MM3 (134-434); RBC 3.43 M/mm3 (3.60-5.2); RDW 16.7 % (11.6-15.6); WHITE BLOOD COUNT 6.9 K/mm3 (4.0-10.0)
--- NOTE | 2019-11-17 10:08 | PN ---
Progress Note (short form) - Note Progress Note: PULMONARY CONSULTATION DICTATED 11/17/19 IMP DYSPNEA ACUTE ON CHRONIC CHF EPISTAXIS ALTERED MENTAL STATUS SEVERE ASTHMA/ COPD ON O2 PULMONARY HTN DM AFIB HTN CKD ANEMIA PLAN O2 LASIX INHALED BRONCHODILATORS ENT EVALUATION F/U CHEST X-RAY DAILY WTS MONITOR LYTES,RENAL FUNCTION CARDIOLOGY EVALUATION DR PACHECO Problem List - Problems (1) AMS (altered mental status) Code(s): R41.82 - ALTERED MENTAL STATUS, UNSPECIFIED Qualifiers: Altered mental status type: disorientation Qualified Code(s): R41.0 - Disorientation, unspecified (2) CHF exacerbation Code(s): I50.9 - HEART FAILURE, UNSPECIFIED Qualifiers: Heart failure type: unspecified Qualified Code(s): I50.9 - Heart failure, unspecified (3) Aortic stenosis, severe Code(s): I35.0 - NONRHEUMATIC AORTIC (VALVE) STENOSIS (4) CHF exacerbation Code(s): I50.9 - HEART FAILURE, UNSPECIFIED Qualifiers: Heart failure type: diastolic Qualified Code(s): I50.33 - Acute on chronic diastolic (congestive) heart failure (5) Anemia Code(s): D64.9 - ANEMIA, UNSPECIFIED Qualifiers: Anemia type: unspecified type Qualified Code(s): D64.9 - Anemia, unspecified (6) COPD (chronic obstructive pulmonary disease) Code(s): J44.9 - CHRONIC OBSTRUCTIVE PULMONARY DISEASE, UNSPECIFIED Qualifiers: COPD type: unspecified COPD Qualified Code(s): J44.9 - Chronic obstructive pulmonary disease, unspecified (7) Diabetes mellitus Code(s): E11.9 - TYPE 2 DIABETES MELLITUS WITHOUT COMPLICATIONS Qualifiers: Diabetes mellitus type: type 2 Diabetes mellitus penitentiary insulin use: without vermin exterminator use Diabetes mellitus complication status: without complication Qualified Code(s): E11.9 - Type 2 diabetes mellitus without complications (8) HTN (hypertension) Code(s): I10 - ESSENTIAL (PRIMARY) HYPERTENSION Qualifiers: Hypertension type: essential hypertension Qualified Code(s): I10 - Essential (primary) hypertension (9) Mitral valve regurgitation Code(s): I34.0 - NONRHEUMATIC MITRAL (VALVE) INSUFFICIENCY Qualifiers: Cardiac valve disease etiology: nonrheumatic Qualified Code(s): I34.0 - Nonrheumatic mitral (valve) insufficiency (10) Chronic kidney disease (CKD) Code(s): N18.9 - CHRONIC KIDNEY DISEASE, UNSPECIFIED Qualifiers: Chronic kidney disease stage: stage 2 (mild) Qualified Code(s): N18.2 - Chronic kidney disease, stage 2 (mild) (11) Epistaxis Code(s): R04.0 - EPISTAXIS
[2019-11-17] MEDS: NEBIVOLOL 5 MG TABLET (FP) PO SCH (10:23)
[2019-11-17] MEDS: FERROUS SO4 325 MG TABLET (FP) PO SCH (10:23)
[2019-11-17] MEDS: LISINOPRIL 10 MG TABLET (FP) PO SCH (10:24)
[2019-11-17] MEDS: PANTOPRAZOLE 40 MG TABLET PO SCH (10:24)
[2019-11-17] MEDS: FUROSEMIDE 40 MG/4 ML INJECTABLE VIAL IVPUSH SCH (10:24)
[2019-11-17] MEDS: amLODIPine BESYLATE 10 MG TABLET (FP) PO SCH (10:24)
[2019-11-17] MEDS: SERTRALINE HCL 50 MG TABLET (FP) PO SCH (10:24)
--- NOTE | 2019-11-17 12:33 | PN ---
Physical Exam: SUBJECTIVE: Patient seen and examined at the bedside. denies chest pain. OBJECTIVE: Patient is a 83 year old Female with known history of Atrial fibrillation (on Eliquis), CHF, pullmonary hypertension, diabetes 2, COPD on extermination inspector oxygen therapy (3 li NC) anxiety, GI bleed who was sent to the ED by family for confus ion, altered mentation and epistaxis episode. Patient unable to give a good history. Since arriving in the ED, epistaxis has since resolved. On admission, patient noted to have a LLL pnemonia and CHF exacerbation (bnp 8K). Patient was also reported to have AMS, but has since resolved. Head Ct negative. Also noted to have a UTI, UC pending (on ceftriaxone). Vital Signs Period Temp Pulse Resp BP Sys/Mo Pulse Ox Last 24 Hr 97.5 F-98.5 F 61-82 18-20 117-143/58-84 94-98 GENERAL: The patient is awake, alert, and fully oriented, in no acute distress. HEAD: Normal with no signs of trauma. EYES: PERRL, extraocular movements intact, sclera anicteric, conjunctiva clear. No ptosis. ENT: Ears normal, nares patent, oropharynx clear without exudates, moist mucous membranes. NECK: Trachea midline, full range of motion, supple. LUNGS: Breath sounds diminished bilaterally, crackles at the bases. HEART: Regular rate and rhythm, S1, S2 without murmur, rub or gallop. ABDOMEN: Soft, nontender, nondistended, normoactive bowel sounds, no guarding, no rebound, no hepatosplenomegaly, no masses. EXTREMITIES: 2+ pulses, warm, well-perfused, no edema. NEUROLOGICAL: Normal speech, gait not observed. PSYCH: Normal mood, normal affect. SKIN: Warm, dry, normal turgor, no rashes or lesions noted Laboratory Results - last 24 hr 11/16/19 11/16/19 11/16/19 12:00 12:00 12:00 WBC 7.1 RBC 3.62 Hgb 9.5 L Hct 30.2 L MCV 83.5 MCH 26.1 D MCHC 31.3 L RDW 16.7 H Plt Count 277 MPV 9.5 Absolute Neuts (auto) 5.6 Neutrophils % 79.4 Lymphocytes % 8.1 D Monocytes % 10.0 Eosinophils % 1.9 D Basophils % 0.6 Nucleated RBC % 0 PT with INR 20.10 H INR 1.69 H Sodium 138 Potassium 4.1 Chloride 91 L Carbon Dioxide 40 H Anion Gap 7 L BUN 38.1 H Creatinine 1.3 Est GFR (CKD-EPI)AfAm 43.63 Est GFR (CKD-EPI)NonAf 37.64 Random Glucose 169 H Calcium 9.1 Total Bilirubin 0.5 AST 37 ALT 17 Alkaline Phosphatase 251 H Troponin I B-Natriuretic Peptide Total Protein 6.7 Albumin 3.2 L Urine Color Urine Appearance Urine pH Ur Specific Porter Urine Protein Urine Glucose (UA) Urine Ketones Urine Blood Urine Nitrite Urine Bilirubin Urine Urobilinogen Ur Leukocyte Esterase Urine WBC (Auto) Urine RBC (Auto) Urine Casts (Auto) U Epithel Cells (Auto) Urine Bacteria (Auto) COVID-19 (JOSE F) 11/16/19 11/16/19 11/16/19 12:00 12:25 12:25 WBC RBC Hgb Hct MCV MCH MCHC RDW Plt Count MPV Absolute Neuts (auto) Neutrophils % Lymphocytes % Monocytes % Eosinophils % Basophils % Nucleated RBC % PT with INR INR Sodium Potassium Chloride Carbon Dioxide Anion Gap BUN Creatinine Est GFR (CKD-EPI)AfAm Est GFR (CKD-EPI)NonAf Random Glucose Calcium Total Bilirubin AST ALT Alkaline Phosphatase Troponin I B-Natriuretic Peptide 8441.5 H Total Protein Albumin Urine Color Yellow Urine Appearance Clear Urine pH 8.0 D Ur Specific Porter 1.012 Urine Protein Negative Urine Glucose (UA) Negative Urine Ketones Negative Urine Blood Negative Urine Nitrite Positive H Urine Bilirubin Negative Urine Urobilinogen 0.2 Ur Leukocyte Esterase 2+ H Urine WBC (Auto) 483 Urine RBC (Auto) 11 Urine Casts (Auto) 1 U Epithel Cells (Auto) 2 Urine Bacteria (Auto) >10,000 COVID-19 (JOSE F) Not detected 11/16/19 11/16/19 19:15 21:40 WBC 6.9 RBC 3.43 L Hgb 9.0 L Hct 28.9 L MCV 84.3 MCH 26.4 MCHC 31.3 L RDW 16.7 H Plt Count 238 MPV 9.0 Absolute Neuts (auto) 5.6 Neutrophils % 81.6 Lymphocytes % 6.7 L Monocytes % 9.5 Eosinophils % 1.7 Basophils % 0.5 Nucleated RBC % 0 PT with INR INR Sodium Potassium Chloride Carbon Dioxide Anion Gap BUN Creatinine Est GFR (CKD-EPI)AfAm Est GFR (CKD-EPI)NonAf Random Glucose Calcium Total Bilirubin AST ALT Alkaline Phosphatase Troponin I 0.02 B-Natriuretic Peptide Total Protein Albumin Urine Color Urine Appearance Urine pH Ur Specific Porter Urine Protein Urine Glucose (UA) Urine Ketones Urine Blood Urine Nitrite Urine Bilirubin Urine Urobilinogen Ur Leukocyte Esterase Urine WBC (Auto) Urine RBC (Auto) Urine Casts (Auto) U Epithel Cells (Auto) Urine Bacteria (Auto) COVID-19 (JOSE F) Active Medications Generic Name Dose Route Start Last Admin Trade Name Freq PRN Reason Stop Dose Admin Amlodipine Besylate 10 mg 11/17/19 10:00 11/17/19 10:24 Norvasc - PO 10 mg DAILY PK Administration Ferrous Sulfate 325 mg 11/17/19 10:00 11/17/19 10:23 Feosol - PO 325 mg DAILY PK Administration Furosemide 40 mg 11/17/19 10:00 11/17/19 10:24 Lasix Injection - IVPUSH 40 mg DAILY PK Administration Ceftriaxone Sodium 1 gm/ 50 mls @ 200 mls/hr 11/17/19 12:45 Dextrose IVPB DAILY PK Protocol Lisinopril 10 mg 11/17/19 10:00 11/17/19 10:24 Prinivil PO 10 mg DAILY PK Administration Nebivolol 5 mg 11/17/19 10:00 11/17/19 10:23 Bystolic - PO 5 mg DAILY PK Administration Pantoprazole Sodium 40 mg 11/17/19 10:00 11/17/19 10:24 Protonix - PO 40 mg DAILY PK Administration Sertraline HCl 50 mg 11/17/19 10:00 11/17/19 10:24 Zoloft - PO 50 mg DAILY PK Administration ASSESSMENT/PLAN: Problem List - Problems (1) Acute on chronic diastolic (congestive) heart failure Assessment/Plan: patient on lasix 20mg at home. elevated bnp 8K on admission with worsening shortness of breath. she is home oxygen dependent at 3.5 liters. monitor weights, labs, kidney function on lasix 40mg bid cardiology following/pulm following Code(s): I50.33 - ACUTE ON CHRONIC DIASTOLIC (CONGESTIVE) HEART FAILURE (2) Acute metabolic encephalopathy Assessment/Plan: resolved. mentation improved and back to baseline. head ct negative for acute process Code(s): G93.41 - METABOLIC ENCEPHALOPATHY (3) Diabetes mellitus Assessment/Plan: novolog ss based on BGMs Code(s): E11.9 - TYPE 2 DIABETES MELLITUS WITHOUT COMPLICATIONS Qualifiers: Diabetes mellitus type: type 2 Diabetes mellitus assisted insulin use: without assisted use Diabetes mellitus complication status: without complication Qualified Code(s): E11.9 - Type 2 diabetes mellitus without com plications (4) Dyspnea Assessment/Plan: dyspnea in the setting of acute on chronic chf exacerbation. home oxygen dependent monitor respiratory status Code(s): R06.00 - DYSPNEA, UNSPECIFIED Qualifiers: Dyspnea type: dyspnea on exertion Qualified Code(s): R06.00 - Dyspnea, unspecified (5) Epistaxis Assessment/Plan: has since resolved. eliquis on hold. ENT consult Code(s): R04.0 - EPISTAXIS (6) Pneumonia Assessment/Plan: as seen on chest xray. LLL pneumonia. on ceftriaxone Code(s): J18.9 - PNEUMONIA, UNSPECIFIED ORGANISM (7) UTI (urinary tract infection) Assessment/Plan: on ceftriaxone pending urine culture Code(s): N39.0 - URINARY TRACT INFECTION, SITE NOT SPECIFIED (8) DVT prophylaxis Assessment/Plan: no a/c secondary to epistaxis. SCDs ordered Code(s): Z29.9 - ENCOUNTER FOR PROPHYLACTIC MEASURES, UNSPECIFIED (9) Hypertension Assessment/Plan: on Bystolic 5 mg daily, amlodipine 10 mg qd, Lipitor 40 mg, Prinivil 10 mg qd Code(s): I10 - ESSENTIAL (PRIMARY) HYPERTENSION Visit type - Emergency Visit Emergency Visit: Yes ED Registration Date: 11/16/19 Care time: The patient presented to the Emergency Department on the above date and was hospitalized for further evaluation of their emergent condition. - New Patient This patient is new to me today: Yes Date on this admission: 11/18/19 - Critical Care Critical Care patient: No - Discharge Referral Referred to [facility] Med [facility].C.: No
[2019-11-17] MEDS ORDERED: cefTRIAXone SODIUM 1 GM VIAL ONE (13:21)
[2019-11-17] MEDS ORDERED: DEXTROSE 5%-WATER - 50 ML IVPB ONE (13:21)
[2019-11-17] MEDS: CEFTRIAXONE 1 GM in DEXTROSE 5%-WATER - 50 ML IVPB SCH (13:30)
--- NOTE | 2019-11-17 14:28 | CONS ---
DATE OF CONSULTATION: 11/17/2019 PULMONARY CONSULTATION REFERRING PHYSICIAN: Alma Ham NP HISTORY OF PRESENT ILLNESS: Patient is an 83-year-old female known to me from previous hospitalization, past medical history of atrial fibrillation, GI bleed, CHF, severe aortic stenosis, severe pulmonary hypertension, type 2 diabetes mellitus, asthma, COPD, hypertension, hyperlipidemia, admitted to [facility] on November 15 as a result of patient epistaxis. According to her daughter the patient has been having secondary to altered mental status. On admission she was felt to have possible CHF. She was started on empiric antibiotics as well as Lasix. Patient is a nonsmoker. There was no history of occupational exposure to chemicals or fumes. She does have a history of asthma in the past, currently on oxygen therapy. There were no chest pains or palpitations. PAST MEDICAL HISTORY: Again includes atrial fibrillation, CHF, pulmonary hypertension, type 2 diabetes, COPD, asthma, history of GI bleed, hypertension, hyperlipidemia and mitral regurgitation. CURRENT MEDICATIONS: Include Prinivil, Zoloft, Bystolic, Norvasc, Feosol, Lasix and Protonix. REVIEW OF SYSTEMS: No orthopnea. No PND. Has some mild shortness of breath. No chest pain. No palpitations. No abdominal pain. Positive epistaxis. Positive mild lower extremity edema. PHYSICAL EXAMINATION:General: Patient is an elderly female, awake, alert, currently in no acute distress. Vital Signs: She is currently afebrile, heart rate is 72, blood pressure 142/69, respiratory rate is 20. HEENT: Normocephalic, atraumatic. Neck: Supple. Heart: Regular, S1-S2. Chest: Bilateral crackles. Abdomen: Soft. Bowel sounds are positive. Extremities: Bilateral lower extremity edema. LABORATORIES: COVID is negative. WBC is 6, hemoglobin 9, hematocrit 28.9 with a platelet count of 238,000. Blood gas not performed. Chemistries: BUN 38, creatinine 1.3 history of chronic kidney disease. Also BNP is 8441. Chest x-ray: Pulmonary vascular congestion. IMPRESSION: 1. Dyspnea secondary to [id number] congestive heart failure. 2. Epistaxis. 3. Altered mental status, currently improved. 4. Severe aortic stenosis. 5. Asthma, chronic obstructive pulmonary disease, on oxygen. 6. Pulmonary hypertension. 7. Diabetes. 8. Atrial fibrillation. 9. Hypertension. 10. Chronic kidney disease. 11. Anemia. PLAN: Supplemental O2. Lasix. Inhaled bronchodilators. ENT evaluation. Followup chest x-ray. Daily weights. Monitor electrolytes, renal function. Consider cardiology evaluation. EMILIE PACHECO M.D. DALE/[id number]
--- NOTE | 2019-11-17 14:32 | CON.ID ---
Consult Consult Specialty:: infectious diseases Referred by:: Alma Reason for Consultation:: ams,uti,confusion - History of Present Illness Chief Complaint: confusion,swelling of the legs History of Present Illness: 83 year old Female with known history of Atrial fibrillation (on Eliquis), CHF, PUlmonary hypertension, DM 2, COPD on care home oxygen therapy (3 li NC) anxiety, GI bleed who was sent to the ED by family for confusion, altered mentation and epistaxis episode. Patient unable to give a good history. Reports her daughter sent her to ED. Since arriving in the ED, epistaxis has since resolved. patient says the only issue she had was swelling of he legs for which she takes lasix tablets - History Source History Provided By: Patient, Medical Record Limitations to Obtaining History: Poor Historian - Past Medical History Cardio/Vascular: Yes: AFIB, Aortic Stenosis, CAD, CHF, HTN, Hyperlipdemia, Mitral Insufficiency, Murmur, Pulmonary Hypertension Pulmonary: Yes: Asthma, COPD, O2 Dependent, Pneumonia Gastrointestinal: Yes: Other (reportedly had colonoscopy about 2 years ago) Psych: Yes: Anxiety Musculoskeletal: Yes: Osteoarthritis (had hip and knee replacement, still with some healing problems ), Other Endocrine: Yes: Diabetes Mellitus, Other (Thyroid nodule) - Past Surgical History Past Surgical History: Yes: Joint Replacement - Alcohol/Substance Use Hx Alcohol Use: No History of Substance Use: reports: None - Smoking History Smoking history: Former smoker Have you smoked in the past 12 months: No Aproximately how many cigarettes per day: 0 If you are a former smoker, when did you quit?: many years ago - Social History Usual Living Arrangement: Alone ADL: Support Services History of Recent Travel: No Home Medications - Allergies Allergies/Adverse Reactions: Allergies Allergy/AdvReac Type Severity Reaction Status Date / Time ciprofloxacin [From Cipro] Allergy Verified 01/23/19 15:11 ciprofloxacin HCl Allergy Verified 01/23/19 15:11 [From Cipro] - Home Medications Home Medications: Ambulatory Orders Simvastatin 40 mg PO DAILY 12/29/16 Omeprazole Magnesium [Prilosec Otc] 40 mg PO DAILY 09/06/17 Amlodipine Besylate [Norvasc -] 10 mg PO DAILY 30 Days #30 tablet 05/17/18 Nebivolol [Bystolic -] 5 mg PO DAILY #14 tab 06/19/18 Acetaminophen 500 mg PO TID PRN 09/02/18 Insulin Glargine,Hum.rec.anlog [Lantus Solostar PEN -] 16 unit SQ AM 08/05/19 Sertraline HCl 50 mg PO DAILY 08/05/19 Furosemide [Lasix -] 20 mg PO DAILY #30 tablet 08/17/19 Lisinopril [Prinivil] 10 mg PO DAILY 30 Days #30 tablet 08/17/19 Pantoprazole Sodium [Protonix -] 40 mg PO BID tablet.ec 08/17/19 Polyethylene Glycol 3350 [Miralax 119 gm Btl -] 17 gm PO BID #1 bottle 08/17/19 Ferrous Sulfate 325 mg PO DAILY 11/16/19 Multivitamin [Multiple Vitamins] 1 each PO DAILY 11/16/19 Review of Systems - Review of Systems Constitutional: reports: No Symptoms Eyes: reports: No Symptoms HENT: reports: No Symptoms Neck: reports: No Symptoms Cardiovascular: reports: No Symptoms Respiratory: reports: No Symptoms Gastrointestinal: reports: No Symptoms Genitourinary: reports: Other Musculoskeletal: reports: No Symptoms Integumentary: reports: No Symptoms Neurological: reports: No Symptoms Endocrine: reports: No Symptoms Hematology/Lymphatic: reports: No Symptoms Psychiatric: reports: No Symptoms Physical Exam Vital Signs: Vital Signs Temperature 97.5 F L 11/17/19 09:36 Pulse Rate 72 11/17/19 09:36 Respiratory Rate 18 11/17/19 09:36 Blood Pressure 122/59 L 11/17/19 09:36 O2 Sat by Pulse Oximetry (%) 94 L 11/17/19 09:00 Constitutional: Yes: No Distress, Calm HENT: Yes: Atraumatic, Normocephalic Neck: Yes: Supple, Trachea Midline Cardiovascular: Yes: Pulse Irregular, Other Respiratory: Yes: Regular, CTA Bilaterally, On Nasal O2 Gastrointestinal: Yes: Normal Bowel Sounds, Soft Musculoskeletal: Yes: WNL Extremities: Yes: WNL Neurological: Yes: Alert, Oriented Psychiatric: Yes: Alert, Oriented Labs: CBC, BMP 11/16/19 21:40 11/16/19 12:00 Imaging - Results Chest X-ray: Report Reviewed, Image Reviewed Cat Scan: Report Reviewed, Image Reviewed
[2019-11-17] MEDS: ALBUTEROL SO4 2.5/IPRATROPIUM 0.5 INH SOL 3 ML VIAL.NEB. NEB PRN (21:43)
[2019-11-17] MEDS: NYSTATIN POWDER 100,000 UNITS/GM - 15 GM TOPICAL POWDER TP SCH (21:47)
[2019-11-17] MEDS: INSULIN SLIDING SCALE (NOVOLOG) 1 VIAL SQ SCH (21:48)
[2019-11-18] MEDS: INSULIN SLIDING SCALE (NOVOLOG) 1 VIAL SQ SCH ×4 (07:41→22:55)
[2019-11-18] MEDS ORDERED: cefTRIAXone SODIUM 1 GM VIAL ONE (09:40)
[2019-11-18] MEDS ORDERED: DEXTROSE 5%-WATER - 50 ML IVPB ONE (09:41)
[2019-11-18] MEDS: NEBIVOLOL 5 MG TABLET (FP) PO SCH (09:45)
[2019-11-18] MEDS: amLODIPine BESYLATE 10 MG TABLET (FP) PO SCH (09:45)
[2019-11-18] MEDS: LISINOPRIL 10 MG TABLET (FP) PO SCH (09:45)
[2019-11-18] MEDS: SERTRALINE HCL 50 MG TABLET (FP) PO SCH (09:45)
[2019-11-18] MEDS: PANTOPRAZOLE 40 MG TABLET PO SCH (09:45)
[2019-11-18] MEDS: FERROUS SO4 325 MG TABLET (FP) PO SCH (09:45)
[2019-11-18] MEDS: CEFTRIAXONE 1 GM in DEXTROSE 5%-WATER - 50 ML IVPB SCH (09:46)
[2019-11-18] MEDS: FUROSEMIDE 40 MG/4 ML INJECTABLE VIAL IVPUSH SCH (09:46)
[2019-11-18] MEDS: NYSTATIN POWDER 100,000 UNITS/GM - 15 GM TOPICAL POWDER TP SCH (10:43)
--- NOTE | 2019-11-18 11:07 | CON.CARD ---
Consult Consult Specialty:: Cardiology Referred by:: Hospitalist Medicine Reason for Consultation:: , afib - History of Present Illness Chief Complaint: Epistaxis History of Present Illness: 83 F h/o Afib on Eliquis, HFpEF with mod-severe , T2DM, Pulmonary HTN, COPD on 3 L NC O2, asthma, anxiety, h/o GIB being on AC, last saw Dr. Stewart 10/13/2019 presented to ED for confusion, altered mentation and epistaxis. Patient initially unable to give a good history and reported her daughter sent her to ED. Since hospitalization, epistaxis and altered mental status has since resolved, noted to have a LLL infiltrates and CHF exacerbation (bnp 8K), dyspnea improving with diuresis. Head Ct negative. Also noted to have a UTI, UC pending (on ceftriaxone). - History Source History Provided By: Medical Record Limitations to Obtaining History: Poor Historian - Past Medical History Cardio/Vascular: Yes: AFIB, Aortic Stenosis, CAD, CHF, HTN, Hyperlipdemia, Mitral Insufficiency, Murmur, Pulmonary Hypertension Pulmonary: Yes: Asthma, COPD, O2 Dependent, Pneumonia Gastrointestinal: Yes: Other (reportedly had colonoscopy about 2 years ago) Psych: Yes: Anxiety Musculoskeletal: Yes: Osteoarthritis (had hip and knee replacement, still with some healing problems ), Other Endocrine: Yes: Diabetes Mellitus, Other (Thyroid nodule) - Past Surgical History Past Surgical History: Yes: Joint Replacement - Alcohol/Substance Use Hx Alcohol Use: No History of Substance Use: reports: None - Smoking History Smoking history: Former smoker Have you smoked in the past 12 months: No Aproximately how many cigarettes per day: 0 If you are a former smoker, when did you quit?: many years ago - Social History Usual Living Arrangement: Alone ADL: Support Services History of Recent Travel: No Home Medications - Allergies Allergies/Adverse Reactions: Allergies Allergy/AdvReac Type Severity Reaction Status Date / Time ciprofloxacin [From Cipro] Allergy Verified 01/23/19 15:11 ciprofloxacin HCl Allergy Verified 01/23/19 15:11 [From Cipro] - Home Medications Home Medications: Ambulatory Orders Simvastatin 40 mg PO DAILY 12/29/16 Omeprazole Magnesium [Prilosec Otc] 40 mg PO DAILY 09/06/17 Amlodipine Besylate [Norvasc -] 10 mg PO DAILY 30 Days #30 tablet 05/17/18 Nebivolol [Bystolic -] 5 mg PO DAILY #14 tab 06/19/18 Acetaminophen 500 mg PO TID PRN 09/02/18 Insulin Glargine,Hum.rec.anlog [Lantus Solostar PEN -] 16 unit SQ AM 08/05/19 Sertraline HCl 50 mg PO DAILY 08/05/19 Furosemide [Lasix -] 20 mg PO DAILY #30 tablet 08/17/19 Lisinopril [Prinivil] 10 mg PO DAILY 30 Days #30 tablet 08/17/19 Pantoprazole Sodium [Protonix -] 40 mg PO BID tablet.ec 08/17/19 Polyethylene Glycol 3350 [Miralax 119 gm Btl -] 17 gm PO BID #1 bottle 08/17/19 Ferrous Sulfate 325 mg PO DAILY 11/16/19 Multivitamin [Multiple Vitamins] 1 each PO DAILY 11/16/19 Review of Systems - Review of Systems Respiratory: reports: SOB Neurological: reports: Confusion Vital Signs: Vital Signs Temperature 98.9 F 11/18/19 08:57 Pulse Rate 74 11/18/19 08:57 Respiratory Rate 16 11/18/19 08:57 Blood Pressure 134/52 L 11/18/19 08:57 O2 Sat by Pulse Oximetry (%) 91 L 11/17/19 21:00 Constitutional: Yes: No Distress, Calm, Thin Neck: Yes: Supple Respiratory: Yes: Regular, Diminished, On Nasal O2 Gastrointestinal: Yes: Soft, Hypoactive Bowel Sounds Cardiovascular: Yes: Pulse Irregular JVD: No Carotid Bruit: No Heart Sounds: Yes: S1, S2 Murmur: Yes: Systolic Murmur, Grade 2 Edema: No - Other Data Labs, Other Data: CBC, BMP 11/16/19 21:40 11/16/19 12:00 INR, PTT INR 1.69 (0.83-1.09) H 11/16/19 12:00 Afib @ 64 LAD, IVCD similar to August 14, 2019 Echo: Report Reviewed Ejection Fraction %: LVEF > or = 40 % Imaging - Results Chest X-ray: Report Reviewed (LLL infiltrate with small effusion) Problem List - Problems (1) Acute metabolic encephalopathy Code(s): G93.41 - METABOLIC ENCEPHALOPATHY (2) CHF exacerbation Code(s): I50.9 - HEART FAILURE, UNSPECIFIED Qualifiers: Heart failure type: diastolic Qualified Code(s): I50.33 - Acute on chronic diastolic (congestive) heart failure (3) Moderate to severe aortic stenosis Code(s): I35.0 - NONRHEUMATIC AORTIC (VALVE) STENOSIS (4) Acute on chronic diastolic (congestive) heart failure Code(s): I50.33 - ACUTE ON CHRONIC DIASTOLIC (CONGESTIVE) HEART FAILURE (5) Atrial fibrillation Code(s): I48.91 - UNSPECIFIED ATRIAL FIBRILLATION Qualifiers: Atrial fibrillation type: longstanding persistent Qualified Code(s): I48.11 - Longstanding persistent atrial fibrillation (6) COPD (chronic obstructive pulmonary disease) Code(s): J44.9 - CHRONIC OBSTRUCTIVE PULMONARY DISEASE, UNSPECIFIED Qualifiers: COPD type: unspecified COPD Qualified Code(s): J44.9 - Chronic obstructive pulmonary disease, unspecified (7) Chronic anticoagulation Code(s): Z79.01 - PLUMBER PIPE FITTING (CURRENT) USE OF 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 (8) Diabetes mellitus Code(s): E11.9 - TYPE 2 DIABETES MELLITUS WITHOUT COMPLICATIONS Qualifiers: Diabetes mellitus type: type 2 Diabetes mellitus termite treater helper insulin use: without termite treater helper use Diabetes mellitus complication status: without complication Qualified Code(s): E11.9 - Type 2 diabetes mellitus without complications (9) HTN (hypertension) Code(s): I10 - ESSENTIAL (PRIMARY) HYPERTENSION Qualifiers: Hypertension type: essential hypertension Qualified Code(s): I10 - Essential (primary) hypertension (10) Chronic kidney disease (CKD) Code(s): N18.9 - CHRONIC KIDNEY DISEASE, UNSPECIFIED Qualifiers: Chronic kidney disease stage: stage 2 (mild) Qualified Code(s): N18.2 - Chronic kidney disease, stage 2 (mild) (11) Epistaxis Code(s): R04.0 - EPISTAXIS Assessment/Plan 1. Acute on chronic LV diastolic failure, class II NYHA classification LV failure improving 2. Epistaxis since resolved 3. Toxic metabolic encephelopathy resolving 4. Mod-severe , pulm HTN 5. Asthma, Chronic obstructive airway disease 6. Persistent atrial fibrillation with [id number] score of 7 on chronic A/C with DOAC/Eliquis 7. Diabetes mellitus 8. HTN 9. CKD 10. Anemia with h/o GI bleed PLAN: 1. IV diuresis and Aldactone 50 qd with close monitoring of diuretic response, renal function and electrolytes 2. Continue Bystolic 5 mg QD, Amlodipine 10 mg QD, Lipitor 40 mg QHS, Prinivil 10 mg QD with caution once renal function stabilizes 3. Bronchodilators, oral steroids, empiric antibiotic course, O2 and NIPPV as ne eded 4. Further evaluation of as outpatient including possible TAVR but previously declined 5. Rechallenge Eliquis 2.5 mg BID with caution after ENT evaluation 6. Thank you for consultative opportunity
[2019-11-18] MEDS: ALBUTEROL SO4 2.5/IPRATROPIUM 0.5 INH SOL 3 ML VIAL.NEB. NEB PRN ×2 (11:52→17:45)
--- NOTE | 2019-11-18 11:52 | PN ---
Progress Note, Physician History of Present Illness: says she is having difficulty breathing otherwise s table - Current Medication List Current Medications: Active Medications Albuterol/Ipratropium (Duoneb -) 1 amp NEB RQID PRN PRN Reason: SHORTNESS OF BREATH Last Admin: 11/17/19 21:43 Dose: 1 amp Documented by: Amlodipine Besylate (Norvasc -) 10 mg PO DAILY [facility] Last Admin: 11/18/19 09:45 Dose: 10 mg Documented by: Ferrous Sulfate (Feosol -) 325 mg PO DAILY [facility] Last Admin: 11/18/19 09:45 Dose: 325 mg Documented by: Furosemide (Lasix Injection -) 40 mg IVPUSH DAILY [facility] Last Admin: 11/18/19 09:46 Dose: 40 mg Documented by: Ceftriaxone Sodium 1 gm/ (Dextrose) 50 mls @ 200 mls/hr IVPB DAILY [facility]; Protocol Last Admin: 11/18/19 09:46 Dose: 200 mls/hr Documented by: Insulin Aspart (Novolog Vial Sliding Scale -) 1 vial SQ ACHS [facility]; Protocol Last Admin: 11/18/19 07:41 Dose: Not Given Documented by: Lisinopril (Prinivil) 10 mg PO DAILY [facility] Last Admin: 11/18/19 09:45 Dose: 10 mg Documented by: Nebivolol (Bystolic -) 5 mg PO DAILY [facility] Last Admin: 11/18/19 09:45 Dose: 5 mg Documented by: Nystatin (Nystop Powder -) 1 applic TP DAILY [facility] Last Admin: 11/18/19 10:43 Dose: 1 applic Documented by: Pantoprazole Sodium (Protonix -) 40 mg PO DAILY [facility] Last Admin: 11/18/19 09:45 Dose: 40 mg Documented by: Sertraline HCl (Zoloft -) 50 mg PO DAILY [facility] Last Admin: 11/18/19 09:45 Dose: 50 mg Documented by: - Objective Vital Signs: Vital Signs Temperature 98.9 F 11/18/19 08:57 Pulse Rate 74 11/18/19 08:57 Respiratory Rate 16 11/18/19 08:57 Blood Pressure 134/52 L 11/18/19 08:57 O2 Sat by Pulse Oximetry (%) 91 L 11/17/19 21:00 Constitutional: Yes: Calm, Mild Distress Eyes: Yes: Conjunctiva Clear HENT: Yes: Atraumatic, Normocephalic Neck: Yes: Supple, Trachea Midline Cardiovascular: Yes: S1, S2 Respiratory: Yes: Poor Air Entry, Other (resp effort) Gastrointestinal: Yes: Normal Bowel Sounds, Soft Musculoskeletal: Yes: WNL Extremities: Yes: WNL Neurological: Yes: Alert, Oriented Psychiatric: Yes: Alert, Oriented Labs: CBC, BMP 11/16/19 21:40 11/16/19 12:00 INR, PTT INR 1.69 (0.83-1.09) H 11/16/19 12:00 Assessment/Plan Problem List - Problems (1) AMS (altered mental status) Code(s): R41.82 - ALTERED MENTAL STATUS, UNSPECIFIED Qualifiers: Altered mental status type: disorientation Qualified Code(s): R41.0 - D isorientation, unspecified (2) CHF exacerbation Code(s): I50.9 - HEART FAILURE, UNSPECIFIED Qualifiers: Heart failure type: unspecified Qualified Code(s): I50.9 - Heart failure, unspecified (3) Aortic stenosis, severe Code(s): I35.0 - NONRHEUMATIC AORTIC (VALVE) STENOSIS (4) CHF exacerbation Code(s): I50.9 - HEART FAILURE, UNSPECIFIED Qualifiers: Heart failure type: diastolic Qualified Code(s): I50.33 - Acute on chronic diastolic (congestive) heart failure (5) Anemia Code(s): D64.9 - ANEMIA, UNSPECIFIED Qualifiers: Anemia type: unspecified type Qualified Code(s): D64.9 - Anemia, unspecified (6) COPD (chronic obstructive pulmonary disease) Code(s): J44.9 - CHRONIC OBSTRUCTIVE PULMONARY DISEASE, UNSPECIFIED Qualifiers: COPD type: unspecified COPD Qualified Code(s): J44.9 - Chronic obstructive pulmonary disease, unspecified (7) Diabetes mellitus Code(s): E11.9 - TYPE 2 DIABETES MELLITUS WITHOUT COMPLICATIONS Qualifiers: Diabetes mellitus type: type 2 Diabetes mellitus knitted garment finisher insulin use: without skilled nursing use Diabetes mellitus complication status: without complication Qualified Code(s): E11.9 - Type 2 diabetes mellitus without complications (8) HTN (hypertension) Code(s): I10 - ESSENTIAL (PRIMARY) HYPERTENSION Qualifiers: Hypertension type: essential hypertension Qualified Code(s): I10 - Essential (primary) hypertension (9) Mitral valve regurgitation Code(s): I34.0 - NONRHEUMATIC MITRAL (VALVE) INSUFFICIENCY Qualifiers: Cardiac valve disease etiology: nonrheumatic Qualified Code(s): I34.0 - Nonrheumatic mitral (valve) insufficiency (10) Chronic kidney disease (CKD) Code(s): N18.9 - CHRONIC KIDNEY DISEASE, UNSPECIFIED Qualifiers: Chronic kidney disease stage: stage 2 (mild) Qualified Code(s): N18.2 - Chronic kidney disease, stage 2 (mild) (11) Epistaxis Code(s): R04.0 - EPISTAXIS 12 uti plan continue abx resp treatment pul on board rest as per the team
--- NOTE | 2019-11-18 13:34 | PN ---
Progress Note (short form) - Note Progress Note: Resting in NAD. Breathing is a little better. No acute events overnight. Intake & Output 11/15/19 11/16/19 11/17/19 11/18/19 23:59 23:59 23:59 23:59 Intake Total 120 640 Balance 120 640 Weight 160 lb Last Vital Signs Temp Pulse Resp BP Pulse Ox 98.9 F 74 16 134/52 L 91 L 11/18/19 08:57 11/18/19 08:57 11/18/19 10:00 11/18/19 08:57 11/18/19 10:00 Active Medications Albuterol/Ipratropium (Duoneb -) 1 amp NEB RQID PRN PRN Reason: SHORTNESS OF BREATH Last Admin: 11/18/19 11:52 Dose: 1 amp Documented by: Amlodipine Besylate (Norvasc -) 10 mg PO DAILY [facility] Last Admin: 11/18/19 09:45 Dose: 10 mg Documented by: Ferrous Sulfate (Feosol -) 325 mg PO DAILY [facility] Last Admin: 11/18/19 09:45 Dose: 325 mg Documented by: Furosemide (Lasix Injection -) 40 mg IVPUSH DAILY [facility] Last Admin: 11/18/19 09:46 Dose: 40 mg Documented by: Ceftriaxone Sodium 1 gm/ (Dextrose) 50 mls @ 200 mls/hr IVPB DAILY [facility]; Protocol Last Admin: 11/18/19 09:46 Dose: 200 mls/hr Documented by: Insulin Aspart (Novolog Vial Sliding Scale -) 1 vial SQ ACHS [facility]; Protocol Last Admin: 11/18/19 11:51 Dose: 4 units Documented by: Lisinopril (Prinivil) 10 mg PO DAILY [facility] Last Admin: 11/18/19 09:45 Dose: 10 mg Documented by: Nebivolol (Bystolic -) 5 mg PO DAILY [facility] Last Admin: 11/18/19 09:45 Dose: 5 mg Documented by: Nystatin (Nystop Powder -) 1 applic TP DAILY [facility] Last Admin: 11/18/19 10:43 Dose: 1 applic Documented by: Pantoprazole Sodium (Protonix -) 40 mg PO DAILY [facility] Last Admin: 11/18/19 09:45 Dose: 40 mg Documented by: Sertraline HCl (Zoloft -) 50 mg PO DAILY [facility] Last Admin: 11/18/19 09:45 Dose: 50 mg Documented by: Constitutional: Yes: NAD Eyes: Yes: Conjunctiva Clear HENT: Yes: Atraumatic, Normocephalic Neck: Yes: Supple, Trachea Midline Cardiovascular: Yes: S1, S2 Respiratory: Yes: Poor Air Entry Gastrointestinal: Yes: Normal Bowel Sounds, Soft Musculoskeletal: Yes: WNL Extremities: Yes: WNL Neurological: Yes: Alert, Oriented Psychiatric: Yes: Alert, Oriented Labs: Laboratory Results - last 24 hr 11/18/19 05:34 POC Glucometer 124 Problem List - Problems (1) AMS (altered mental status) Code(s): R41.82 - ALTERED MENTAL STATUS, UNSPECIFIED Qualifiers: Altered mental status type: disorientation Qualified Code(s): R41.0 - Disorientation, unspecified (2) CHF exacerbation Code(s): I50.9 - HEART FAILURE, UNSPECIFIED Qualifiers: Heart failure type: unspecified Qualified Code(s): I50.9 - Heart failure, unspecified (3) Aortic stenosis, severe Code(s): I35.0 - NONRHEUMATIC AORTIC (VALVE) STENOSIS (4) CHF exacerbation Code(s): I50.9 - HEART FAILURE, UNSPECIFIED Qualifiers: Heart failure type: diastolic Qualified Code(s): I50.33 - Acute on chronic diastolic (congestive) heart failure (5) Anemia Code(s): D64.9 - ANEMIA, UNSPECIFIED Qualifiers: Anemia type: unspecified type Qualified Code(s): D64.9 - Anemia, unspecified (6) COPD (chronic obstructive pulmonary disease) Code(s): J44.9 - CHRONIC OBSTRUCTIVE PULMONARY DISEASE, UNSPECIFIED Qualifiers: COPD type: unspecified COPD Qualified Code(s): J44.9 - Chronic obstructive pulmonary disease, unspecified (7) Diabetes mellitus Code(s): E11.9 - TYPE 2 DIABETES MELLITUS WITHOUT COMPLICATIONS Qualifiers: Diabetes mellitus type: type 2 Diabetes mellitus fci insulin use: without watermelon harvesting supervisor use Diabetes mellitus complication status: without complication Qualified Code(s): E11.9 - Type 2 diabetes mellitus without complications (8) HTN (hypertension) Code(s): I10 - ESSENTIAL (PRIMARY) HYPERTENSION Qualifiers: Hypertension type: essential hypertension Qualified Code(s): I10 - Essential (primary) hypertension (9) Mitral valve regurgitation Code(s): I34.0 - NONRHEUMATIC MITRAL (VALVE) INSUFFICIENCY Qualifiers: Cardiac valve disease etiology: nonrheumatic Qualified Code(s): I34.0 - Nonrheumatic mitral (valve) insufficiency (10) Chronic kidney disease (CKD) Code(s): N18.9 - CHRONIC KIDNEY DISEASE, UNSPECIFIED Qualifiers: Chronic kidney disease stage: stage 2 (mild) Qualified Code(s): N18.2 - Chronic kidney disease, stage 2 (mild) (11) Epistaxis Code(s): R04.0 - EPISTAXIS IMP DYSPNEA ACUTE ON CHRONIC CHF EPISTAXIS ALTERED MENTAL STATUS SEVERE ASTHMA/ COPD ON O2 PULMONARY HTN DM AFIB HTN CKD ANEMIA PLAN O2 LASIX INHALED BRONCHODILATORS ENT EVALUATION F/U CHEST X-RAY DAILY [facility] MONITOR LYTES,RENAL FUNCTION Dr Rosenbaum
[2019-11-18] MEDS: SPIRONOLACTONE 25 MG TABLET PO SCH (16:14)
--- NOTE | 2019-11-18 18:17 | PN ---
Physical Exam: SUBJECTIVE: Patient seen and examined. states her breathing is improving. but short of breath with any physical exertion. OBJECTIVE: Patient is a 83 year old Female with known history of Atrial fibrillation (on Eliquis), CHF, pullmonary hypertension, diabetes 2, COPD on termite renewal inspector oxygen therapy (3 li NC) anxiety, GI bleed who was sent to the ED by family for confusion, altered mentation and epistaxis episode. Patient unable to give a good history. Since arriving in the ED, epistaxis has since resolved. On admission, patient noted to have a LLL pnemonia and CHF exacerbation (bnp 8K). Patient was also reported to have AMS, but has since resolved. Head Ct negative. Also noted to have a UTI, UC pending (on ceftriaxone). Vital Signs Period Temp Pulse Resp BP Sys/Mo Pulse Ox Last 24 Hr 97.7 F-98.9 F 64-98 16-18 134-149/52-76 91-96 GENERAL: The patient is awake, alert, and fully oriented, in no acute distress. HEAD: Normal with no signs of trauma. EYES: PERRL, extraocular movements intact, sclera anicteric, conjunctiva clear. No ptosis. ENT: Ears normal, nares patent, oropharynx clear without exudates, moist mucous membranes. NECK: Trachea midline, full range of motion, supple. LUNGS: Breath sounds diminished bilaterally, crackles at the bases. HEART: Regular rate and rhythm, S1, S2 without murmur, rub or gallop. ABDOMEN: Soft, nontender, nondistended, normoactive bowel sounds, no guarding, no rebound, no hepatosplenomegaly, no masses. EXTREMITIES: 2+ pulses, warm, well-perfused, no edema. NEUROLOGICAL: Normal speech, gait not observed. PSYCH: Normal mood, normal affect. SKIN: Warm, dry, normal turgor, no rashes or lesions noted Laboratory Results - last 24 hr 11/18/19 05:34 POC Glucometer 124 Active Medications Generic Name Dose Route Start Last Admin Trade Name Freq PRN Reason Stop Dose Admin Albuterol/Ipratropium 1 amp 11/17/19 21:02 11/18/19 17:45 Duoneb - NEB 1 amp RQID PRN Administration SHORTNESS OF BREATH Amlodipine Besylate 10 mg 11/17/19 10:00 11/18/19 09:45 Norvasc - PO 10 mg DAILY PK Administration Ferrous Sulfate 325 mg 11/17/19 10:00 11/18/19 09:45 Feosol - PO 325 mg DAILY [facility] Administration Furosemide 40 mg 11/17/19 10:00 11/18/19 09:46 Lasix Injection - IVPUSH 40 mg DAILY [facility] Administration Ceftriaxone Sodium 1 gm/ 50 mls @ 200 mls/hr 11/17/19 12:45 11/18/19 09:46 Dextrose IVPB 200 mls/hr DAILY PK Administration Protocol Insulin Aspart 1 vial 11/17/19 22:00 11/18/19 16:21 Novolog Vial Sliding Scale - SQ Not Given ACHS PK Protocol Lisinopril 10 mg 11/17/19 10:00 11/18/19 09:45 Prinivil PO 10 mg DAILY [facility] Administration Nebivolol 5 mg 11/17/19 10:00 11/18/19 09:45 Bystolic - PO 5 mg DAILY [facility] Administration Nystatin 1 applic 11/17/19 21:15 11/18/19 10:43 Nystop Powder - TP 1 applic DAILY [facility] Administration Pantoprazole Sodium 40 mg 11/17/19 10:00 11/18/19 09:45 Protonix - PO 40 mg DAILY [facility] Administration Sertraline HCl 50 mg 11/17/19 10:00 11/18/19 09:45 Zoloft - PO 50 mg DAILY [facility] Administration Spironolactone 25 mg 11/18/19 15:00 11/18/19 16:14 Aldactone - PO 25 mg DAILY [facility] Administration ASSESSMENT/PLAN: Problem List - Problems (1) Acute on chronic diastolic (congestive) heart failure Assessment/Plan: patient on lasix 20mg at home. elevated bnp 8K on admission with worsening shortness of breath. she is home oxygen dependent at 3.5 liters. monitor weights, labs, kidney function on lasix 40mg bid cardiology following/pulm following Code(s): I50.33 - ACUTE ON CHRONIC DIASTOLIC (CONGESTIVE) HEART FAILURE (2) Acute metabolic encephalopathy Assessment/Plan: resolved. mentation improved and back to baseline. head ct negative for acute process Code(s): G93.41 - METABOLIC ENCEPHALOPATHY (3) Diabetes mellitus Assessment/Plan: novolog ss based on BGMs Code(s): E11.9 - TYPE 2 DIABETES MELLITUS WITHOUT COMPLICATIONS Qualifiers: Diabetes mellitus type: type 2 Diabetes mellitus custodial insulin use: without termite renewal inspector use Diabetes mellitus complication status: without complication Qualified Code(s): E11.9 - Type 2 diabetes mellitus without complications (4) Dyspnea Assessment/Plan: dyspnea in the setting of acute on chronic chf exacerbation. home oxygen dependent monitor respiratory status Code(s): R06.00 - DYSPNEA, UNSPECIFIED Qualifiers: Dyspnea type: dyspnea on exertion Qualified Code(s): R06.00 - Dyspnea, unspecified (5) Epistaxis Assessment/Plan: has since resolved. eliquis on hold. ENT consult Code(s): R04.0 - EPISTAXIS (6) Pneumonia Assessment/Plan: as seen on chest xray. LLL pneumonia. on ceftriaxone Code(s): J18.9 - PNEUMONIA, UNSPECIFIED ORGANISM (7) UTI (urinary tract infection) Assessment/Plan: on ceftriaxone pending urine culture Code(s): N39.0 - URINARY TRACT INFECTION, SITE NOT SPECIFIED (8) DVT prophylaxis Assessment/Plan: no a/c secondary to epistaxis. SCDs ordered Code(s): Z29.9 - ENCOUNTER FOR PROPHYLACTIC MEASURES, UNSPECIFIED (9) Hypertension Assessment/Plan: on Bystolic 5 mg daily, amlodipine 10 mg qd, Lipitor 40 mg, Prinivil 10 mg qd Code(s): I10 - ESSENTIAL (PRIMARY) HYPERTENSION Visit type - Emergency Visit Emergency Visit: Yes ED Registration Date: 11/16/19 Care time: The patient presented to the Emergency Department on the above date and was hospitalized for further evaluation of their emergent condition. - New Patient This patient is new to me today: No - Critical Care Critical Care patient: No - Discharge Referral Referred to [facility] Med [facility] No
[2019-11-18] MEDS: ACETAMINOPHEN 325 MG TABLET (FP) PO PRN (18:36)
[2019-11-18] MEDS: LIDOCAINE 5% TOPICAL PATCH TP SCH (18:36)
[2019-11-18] MEDS: LIDOCAINE PATCH REMOVAL MC SCH (22:55)
[2019-11-19] MEDS: INSULIN SLIDING SCALE (NOVOLOG) 1 VIAL SQ SCH ×4 (07:02→22:19)
[2019-11-19 08:41] LABS: BASO % 0.6 % (0-2.0); EOS % 0.5 % (0-4.5); HEMOGLOBIN 9.8 GM/dL (10.7-15.3); MCH 26.4 pg (25.7-33.7); MCHC 31.6 g/dl (32.0-36.0); MEAN CELL VOLUME 83.7 fl (80-96); MEAN PLT VOLUME 9.1 fl (7.5-11.1); MONO % 7.7 % (3.8-10.2); NEUT % 87.2 % (42.8-82.8); PLATELET COUNT 251 K/MM3 (134-434); RBC 3.71 M/mm3 (3.60-5.2); RDW 16.3 % (11.6-15.6); WHITE BLOOD COUNT 10.6 K/mm3 (4.0-10.0)
[2019-11-19 09:07] LABS: ALBUMIN 3.1 g/dl (3.4-5.0); BILIRUBIN,TOTAL 0.6 mg/dL (0.2-1); BLOOD UREA NITROGEN 48.3 mg/dL (7-18); CREATININE 1.2 mg/dL (0.55-1.3); POTASSIUM 3.6 mmol/L (3.5-5.1)
[2019-11-19 09:09] LABS: CALCIUM 8.5 mg/dL (8.5-10.1)
[2019-11-19 09:13] LABS: IRON SERUM 28 ug/dL (50-175); TOTAL IRON BINDING CAPACITY 334 ug/dL (250-450)
[2019-11-19] MEDS ORDERED: cefTRIAXone SODIUM 1 GM VIAL ONE (09:16)
[2019-11-19] MEDS ORDERED: DEXTROSE 5%-WATER - 50 ML IVPB ONE (09:16)
[2019-11-19] MEDS: CEFTRIAXONE 1 GM in DEXTROSE 5%-WATER - 50 ML IVPB SCH (09:22)
[2019-11-19] MEDS: FERROUS SO4 325 MG TABLET (FP) PO SCH (09:23)
[2019-11-19] MEDS: SERTRALINE HCL 50 MG TABLET (FP) PO SCH (09:23)
[2019-11-19] MEDS: FUROSEMIDE 40 MG/4 ML INJECTABLE VIAL IVPUSH SCH (09:23)
[2019-11-19] MEDS: amLODIPine BESYLATE 10 MG TABLET (FP) PO SCH (09:23)
[2019-11-19] MEDS: PANTOPRAZOLE 40 MG TABLET PO SCH (09:23)
[2019-11-19] MEDS: NEBIVOLOL 5 MG TABLET (FP) PO SCH (09:23)
[2019-11-19] MEDS: SPIRONOLACTONE 25 MG TABLET PO SCH (09:23)
[2019-11-19 09:36] LABS: MAGNESIUM 2.2 mg/dL (1.8-2.4); N-TERMINAL BNP 13184.5 pg/ml (5-450)
[2019-11-19] MEDS: NYSTATIN POWDER 100,000 UNITS/GM - 15 GM TOPICAL POWDER TP SCH (09:44)
[2019-11-19] MEDS: LISINOPRIL 10 MG TABLET (FP) PO SCH (09:44)
[2019-11-19] MEDS: LIDOCAINE 5% TOPICAL PATCH TP SCH (09:45)
[2019-11-19] MEDS ORDERED: IRON SUCROSE INJECTION 100 MG in SODIUM CHLORIDE 95 ML IVPB ONE (10:00)
--- NOTE | 2019-11-19 10:03 | PN ---
Progress Note, Physician History of Present Illness: Dyspnea improving with diuresis. - Current Medication List Current Medications: Active Medications Acetaminophen (Tylenol -) 650 mg PO Q6H PRN PRN Reason: PAIN LEVEL 6-10 Last Admin: 11/18/19 18:36 Dose: 650 mg Documented by: Albuterol/Ipratropium (Duoneb -) 1 amp NEB RQID PRN PRN Reason: SHORTNESS OF BREATH Last Admin: 11/18/19 17:45 Dose: 1 amp Documented by: Amlodipine Besylate (Norvasc -) 10 mg PO DAILY [facility] Last Admin: 11/19/19 09:23 Dose: 10 mg Documented by: Ferrous Sulfate (Feosol -) 325 mg PO DAILY [facility] Last Admin: 11/19/19 09:23 Dose: 325 mg Documented by: Furosemide (Lasix Injection -) 40 mg IVPUSH DAILY [facility] Last Admin: 11/19/19 09:23 Dose: 40 mg Documented by: Ceftriaxone Sodium 1 gm/ (Dextrose) 50 mls @ 200 mls/hr IVPB DAILY [facility]; Protocol Last Admin: 11/19/19 09:22 Dose: 200 mls/hr Documented by: Iron Sucrose 100 mg/ Sodium (Chloride) 100 mls @ 200 mls/hr IVPB ONCE ONE Stop: 11/19/19 10:29 Insulin Aspart (Novolog Vial Sliding Scale -) 1 vial SQ ACHS [facility]; Protocol Last Admin: 11/19/19 07:02 Dose: Not Given Documented by: Lidocaine (Lidoderm Patch -) 1 patch TP DAILY [facility] Last Admin: 11/19/19 09:45 Dose: Not Given Documented by: Lisinopril (Prinivil) 10 mg PO DAILY [facility] Last Admin: 11/19/19 09:44 Dose: 10 mg Documented by: Miscellaneous (Lidoderm Patch Removal) 1 each MC DAILY@2200 [facility] Last Admin: 11/18/19 22:55 Dose: 1 each Documented by: Nebivolol (Bystolic -) 5 mg PO DAILY [facility] Last Admin: 11/19/19 09:23 Dose: 5 mg Documented by: Nystatin (Nystop Powder -) 1 applic TP DAILY [facility] Last Admin: 11/19/19 09:44 Dose: 1 applic Documented by: Pantoprazole Sodium (Protonix -) 40 mg PO DAILY [facility] Last Admin: 06/25/20 09:23 Dose: 40 mg Documented by: Sertraline HCl (Zoloft -) 50 mg PO DAILY [facility] Last Admin: 11/19/19 09:23 Dose: 50 mg Documented by: Spironolactone (Aldactone -) 25 mg PO DAILY [facility] Last Admin: 11/19/19 09:23 Dose: 25 mg Documented by: - Objective Vital Signs: Vital Signs Temperature 97.6 F 11/19/19 08:23 Pulse Rate 70 11/19/19 08:23 Respiratory Rate 18 11/19/19 08:23 Blood Pressure 146/64 11/19/19 08:23 O2 Sat by Pulse Oximetry (%) 92 L 11/18/19 21:00 Constitutional: Yes: No Distress, Calm Neck: Yes: Supple Cardiovascular: Yes: Regular Rate and Rhythm, Murmur (2/6 SM) Respiratory: Yes: Regular, Diminished, On Nasal O2 Gastrointestinal: Yes: Normal Bowel Sounds, Soft Edema: No Labs: CBC, BMP 11/19/19 08:19 11/19/19 08:19 INR, PTT INR 1.69 (0.83-1.09) H 11/16/19 12:00 - ....Imaging EKG: Report Reviewed (Tele: NSR) Problem List - Problems (1) Acute metabolic encephalopathy Code(s): G93.41 - METABOLIC ENCEPHALOPATHY (2) CHF exacerbation Code(s): I50.9 - HEART FAILURE, UNSPECIFIED Qualifiers: Heart failure type: diastolic Qualified Code(s): I50.33 - Acute on chronic diastolic (congestive) heart failure (3) Moderate to severe aortic stenosis Code(s): I35.0 - NONRHEUMATIC AORTIC (VALVE) STENOSIS (4) Acute on chronic diastolic (congestive) heart failure Code(s): I50.33 - ACUTE ON CHRONIC DIASTOLIC (CONGESTIVE) HEART FAILURE (5) Atrial fibrillation Code(s): I48.91 - UNSPECIFIED ATRIAL FIBRILLATION Qualifiers: Atrial fibrillation type: longstanding persistent Qualified Code(s): I48.11 - Longstanding persistent atrial fibrillation (6) COPD (chronic obstructive pulmonary disease) Code(s): J44.9 - CHRONIC OBSTRUCTIVE PULMONARY DISEASE, UNSPECIFIED Qualifiers: COPD type: unspecified COPD Qualified Code(s): J44.9 - Chronic obstructive pulmonary disease, unspecified (7) Chronic anticoagulation Code(s): Z79.01 - HYPERBARIC TECHNOLOGIST (CURRENT) USE OF 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 (8) Diabetes mellitus Code(s): E11.9 - TYPE 2 DIABETES MELLITUS WITHOUT COMPLICATIONS Qualifiers: Diabetes mellitus type: type 2 Diabetes mellitus chcf insulin use: without staff assistant use Diabetes mellitus complication status: without complication Qualified Code(s): E11.9 - Type 2 diabetes mellitus without complications (9) HTN (hypertension) Code(s): I10 - ESSENTIAL (PRIMARY) HYPERTENSION Qualifiers: Hypertension type: essential hypertension Qualified Code(s): I10 - Essential (primary) hypertension (10) Chronic kidney disease (CKD) Code(s): N18.9 - CHRONIC KIDNEY DISEASE, UNSPECIFIED Qualifiers: Chronic kidney disease stage: stage 2 (mild) Qualified Code(s): N18.2 - Chronic kidney disease, stage 2 (mild) (11) Epistaxis Code(s): R04.0 - EPISTAXIS Assessment/Plan 1. Acute on chronic LV diastolic failure, class II NYHA classification LV failure improving 2. Epistaxis since resolved 3. Toxic metabolic encephelopathy resolving 4. Mod-severe , pulm HTN 5. Asthma, Chronic obstructive airway disease 6. Persistent atrial fibrillation with [id number] score of 7 on chronic A/C with DOAC/Eliquis 7. Diabetes mellitus 8. HTN 9. CKD 10. Anemia with h/o GI bleed PLAN: 1. IV diuresis and Aldactone 25 qd with close monitoring of diuretic response, renal function and electrolytes 2. Continue Bystolic 5 mg QD, Amlodipine 10 mg QD, Lipitor 40 mg QHS, Prinivil 10 mg QD with caution once renal function stabilizes 3. Bronchodilators, oral steroids, empiric antibiotic course, O2 and NIPPV as needed 4. Further evaluation of as outpatient including possible TAVR but previously declined 5. Rechallenge Eliquis 2.5 mg BID with caution after ENT evaluation
--- NOTE | 2019-11-19 10:07 | PN ---
Progress Note (short form) - Note Progress Note: Resting in NAD. Breathing is a little better. No acute events overnight. Intake & Output 11/16/19 11/17/19 11/18/19 11/19/19 23:59 23:59 23:59 23:59 Intake Total 120 640 300 Output Total 25 50 Balance 120 640 275 -50 Weight 160 lb Last Vital Signs Temp Pulse Resp BP Pulse Ox 97.6 F 70 18 146/64 92 L 11/19/19 08:23 11/19/19 08:23 11/19/19 08:23 11/19/19 08:23 11/18/19 21:00 Active Medications Acetaminophen (Tylenol -) 650 mg PO Q6H PRN PRN Reason: PAIN LEVEL 6-10 Last Admin: 11/18/19 18:36 Dose: 650 mg Documented by: Albuterol/Ipratropium (Duoneb -) 1 amp NEB RQID PRN PRN Reason: SHORTNESS OF BREATH Last Admin: 11/18/19 17:45 Dose: 1 amp Documented by: Amlodipine Besylate (Norvasc -) 10 mg PO DAILY [facility] Last Admin: 11/19/19 09:23 Dose: 10 mg Documented by: Ferrous Sulfate (Feosol -) 325 mg PO DAILY [facility] Last Admin: 11/19/19 09:23 Dose: 325 mg Documented by: Furosemide (Lasix Injection -) 40 mg IVPUSH DAILY [facility] Last Admin: 11/19/19 09:23 Dose: 40 mg Documented by: Ceftriaxone Sodium 1 gm/ (Dextrose) 50 mls @ 200 mls/hr IVPB DAILY [facility]; Protocol Last Admin: 11/19/19 09:22 Dose: 200 mls/hr Documented by: Iron Sucrose 100 mg/ Sodium (Chloride) 100 mls @ 200 mls/hr IVPB ONCE ONE Stop: 11/19/19 10:29 Insulin Aspart (Novolog Vial Sliding Scale -) 1 vial SQ ACHS [facility]; Protocol Last Admin: 11/19/19 07:02 Dose: Not Given Documented by: Lidocaine (Lidoderm Patch -) 1 patch TP DAILY [facility] Last Admin: 11/19/19 09:45 Dose: Not Given Documented by: Lisinopril (Prinivil) 10 mg PO DAILY [facility] Last Admin: 11/19/19 09:44 Dose: 10 mg Documented by: Miscellaneous (Lidoderm Patch Removal) 1 each MC DAILY@2200 [facility] Last Admin: 11/18/19 22:55 Dose: 1 each Documented by: Nebivolol (Bystolic -) 5 mg PO DAILY [facility] Last Admin: 11/19/19 09:23 Dose: 5 mg Documented by: Nystatin (Nystop Powder -) 1 applic TP DAILY [facility] Last Admin: 11/19/19 09:44 Dose: 1 applic Documented by: Pantoprazole Sodium (Protonix -) 40 mg PO DAILY [facility] Last Admin: 11/19/19 09:23 Dose: 40 mg Documented by: Sertraline HCl (Zoloft -) 50 mg PO DAILY [facility] Last Admin: 11/19/19 09:23 Dose: 50 mg Documented by: Spironolactone (Aldactone -) 25 mg PO DAILY [facility] Last Admin: 11/19/19 09:23 Dose: 25 mg Documented by: Constitutional: Yes: NAD Eyes: Yes: Conjunctiva Clear HENT: Yes: Atraumatic, Normocephalic Neck: Yes: Supple, Trachea Midline Cardiovascular: Yes: S1, S2 Respiratory: Yes: Poor Air Entry Gastrointestinal: Yes: Normal Bowel Sounds, Soft Musculoskeletal: Yes: WNL Extremities: Yes: WNL Neurological: Yes: Alert, Oriented Psychiatric: Yes: Alert, Oriented Labs: Laboratory Results - last 24 hr 11/18/19 11/18/19 11/19/19 08:19 22:51 07:02 WBC RBC Hgb Hct MCV MCH MCHC RDW Plt Count MPV Absolute Neuts (auto) Neutrophils % Lymphocytes % Monocytes % Eosinophils % Basophils % Nucleated RBC % Sodium Potassium Chloride Carbon Dioxide Anion Gap BUN Creatinine Est GFR (CKD-EPI)AfAm Est GFR (CKD-EPI)NonAf POC Glucometer 197 156 Random Glucose Hemoglobin A1c % Calcium Magnesium Iron 28 L TIBC 334 Iron Saturation 8 L Unsaturated IBC 306 H Total Bilirubin AST ALT Alkaline Phosphatase B-Natriuretic Peptide Total Protein Albumin 11/19/19 11/19/19 11/19/19 08:19 08:19 08:19 WBC 10.6 H RBC 3.71 Hgb 9.8 L Hct 31.0 L MCV 83.7 MCH 26.4 MCHC 31.6 L RDW 16.3 H Plt Count 251 MPV 9.1 Absolute Neuts (auto) 9.2 H Neutrophils % 87.2 H Lymphocytes % 4.0 L D Monocytes % 7.7 Eosinophils % 0.5 Basophils % 0.6 Nucleated RBC % 0 Sodium 135 L Potassium 3.6 Chloride 88 L Carbon Dioxide 39 H Anion Gap 7 L BUN 48.3 H Creatinine 1.2 Est GFR (CKD-EPI)AfAm 48.06 Est GFR (CKD-EPI)NonAf 41.47 POC Glucometer Random Glucose 163 H Hemoglobin A1c % 5.6 Calcium 8.5 Magnesium 2.2 Iron TIBC Iron Saturation Unsaturated IBC Total Bilirubin 0.6 AST 24 ALT 14 Alkaline Phosphatase 233 H B-Natriuretic Peptide 89326.5 H Total Protein 7.0 Albumin 3.1 L Problem List - Problems (1) AMS (altered mental status) Code(s): R41.82 - ALTERED MENTAL STATUS, UNSPECIFIED Qualifiers: Altered mental status type: disorientation Qualified Code(s): R41.0 - Disorientation, unspecified (2) CHF exacerbation Code(s): I50.9 - HEART FAILURE, UNSPECIFIED Qualifiers: Heart failure type: unspecified Qualified Code(s): I50.9 - Heart failure, unspecified (3) Aortic stenosis, severe Code(s): I35.0 - NONRHEUMATIC AORTIC (VALVE) STENOSIS (4) CHF exacerbation Code(s): I50.9 - HEART FAILURE, UNSPECIFIED Qualifiers: Heart failure type: diastolic Qualified Code(s): I50.33 - Acute on chronic diastolic (congestive) heart failure (5) Anemia Code(s): D64.9 - ANEMIA, UNSPECIFIED Qualifiers: Anemia type: unspecified type Qualified Code(s): D64.9 - Anemia, unspecified (6) COPD (chronic obstructive pulmonary disease) Code(s): J44.9 - CHRONIC OBSTRUCTIVE PULMONARY DISEASE, UNSPECIFIED Qualifiers: COPD type: unspecified COPD Qualified Code(s): J44.9 - Chronic obstructive pulmonary disease, unspecified (7) Diabetes mellitus Code(s): E11.9 - TYPE 2 DIABETES MELLITUS WITHOUT COMPLICATIONS Qualifiers: Diabetes mellitus type: type 2 Diabetes mellitus care home insulin use: without continuous churn buttermaker use Diabetes mellitus complication status: without complication Qualified Code(s): E11.9 - Type 2 diabetes mellitus without complications (8) HTN (hypertension) Code(s): I10 - ESSENTIAL (PRIMARY) HYPERTENSION Qualifiers: Hypertension type: essential hypertension Qualified Code(s): I10 - Essential (primary) hypertension (9) Mitral valve regurgitation Code(s): I34.0 - NONRHEUMATIC MITRAL (VALVE) INSUFFICIENCY Qualifiers: Cardiac valve disease etiology: nonrheumatic Qualified Code(s): I34.0 - Nonrheumatic mitral (valve) insufficiency (10) Chronic kidney disease (CKD) Code(s): N18.9 - CHRONIC KIDNEY DISEASE, UNSPECIFIED Qualifiers: Chronic kidney disease stage: stage 2 (mild) Qualified Code(s): N18.2 - Chronic kidney disease, stage 2 (mild) (11) Epistaxis Code(s): R04.0 - EPISTAXIS IMP DYSPNEA ACUTE ON CHRONIC CHF EPISTAXIS ALTERED MENTAL STATUS SEVERE ASTHMA/ COPD ON O2 PULMONARY HTN DM AFIB HTN CKD ANEMIA UTI PLAN O2 LASIX INHALED BRONCHODILATORS DAILY WTS MONITOR LYTES,RENAL FUNCTION ABX FOR UTI Dr Rosenbaum
[2019-11-19] MEDS: ALBUTEROL SO4 2.5/IPRATROPIUM 0.5 INH SOL 3 ML VIAL.NEB. NEB PRN ×2 (10:11→19:00)
[2019-11-19] MEDS ORDERED: PT OWN MED DRAWER 7, Y5N ONE (10:20)
[2019-11-19] MEDS ORDERED: ZOLPIDEM TARTRATE 5 MG TABLET PO PRN (12:37)
--- NOTE | 2019-11-19 13:32 | PN ---
Physical Exam: SUBJECTIVE: Patient seen and examined. OBJECTIVE: Patient is a 83 year old Female with known history of atrial fibrillation (on Eliquis), CHF, pullmonary hypertension, diabetes 2, COPD on chcf oxygen therapy (3 li NC) anxiety, GI bleed who was sent to the ED by family for confusion, altered mentation and epistaxis episode. Patient unable to give a good history. Since arriving in the ED, epistaxis has since resolved. On admission, patient noted to have a LLL pnemonia and CHF exacerbation (bnp 8K). Patient was also reported to have AMS, but has since resolved. Head Ct negative. Also noted to have a UTI, UC pending (on ceftriaxone). Period Temp Pulse Resp BP Sys/Mo Pulse Ox Last 24 Hr 97.6 F-98.2 F 63-74 18-18 125-149/58-83 91-96 GENERAL: The patient is awake, alert, and fully oriented, in no acute distress. HEAD: Normal with no signs of trauma. EYES: PERRL, extraocular movements intact, sclera anicteric, conjunctiva clear. No ptosis. ENT: Ears normal, nares patent, oropharynx clear without exudates, moist mucous membranes. NECK: Trachea midline, full range of motion, supple. LUNGS: Breath sounds diminished bilaterally, crackles at the bases. HEART: irregular 70s-80s ABDOMEN: Soft, nontender, nondistended, normoactive bowel sounds, no guarding, no rebound, no hepatosplenomegaly, no masses. EXTREMITIES: right leg contracted s/p hip surgery NEUROLOGICAL: Normal speech, gait not observed. PSYCH: Normal mood, normal affect. SKIN: Warm, dry, normal turgor, no rashes or lesions noted Laboratory Results - last 24 hr 11/18/19 11/18/19 11/19/19 08:19 22:51 07:02 WBC RBC Hgb Hct MCV MCH MCHC RDW Plt Count MPV Absolute Neuts (auto) Neutrophils % Lymphocytes % Monocytes % Eosinophils % Basophils % Nucleated RBC % Sodium Potassium Chloride Carbon Dioxide Anion Gap BUN Creatinine Est GFR (CKD-EPI)AfAm Est GFR (CKD-EPI)NonAf POC Glucometer 197 156 Random Glucose Hemoglobin A1c % Calcium Magnesium Iron 28 L TIBC 334 Iron Saturation 8 L Unsaturated IBC 306 H Total Bilirubin AST ALT Alkaline Phosphatase B-Natriuretic Peptide Total Protein Albumin 11/19/19 11/19/19 11/19/19 08:19 08:19 08:19 WBC 10.6 H RBC 3.71 Hgb 9.8 L Hct 31.0 L MCV 83.7 MCH 26.4 MCHC 31.6 L RDW 16.3 H Plt Count 251 MPV 9.1 Absolute Neuts (auto) 9.2 H Neutrophils % 87.2 H Lymphocytes % 4.0 L D Monocytes % 7.7 Eosinophils % 0.5 Basophils % 0.6 Nucleated RBC % 0 Sodium 135 L Potassium 3.6 Chloride 88 L Carbon Dioxide 39 H Anion Gap 7 L BUN 48.3 H Creatinine 1.2 Est GFR (CKD-EPI)AfAm 48.06 Est GFR (CKD-EPI)NonAf 41.47 POC Glucometer Random Glucose 163 H Hemoglobin A1c % 5.6 Calcium 8.5 Magnesium 2.2 Iron TIBC Iron Saturation Unsaturated IBC Total Bilirubin 0.6 AST 24 ALT 14 Alkaline Phosphatase 233 H B-Natriuretic Peptide 46539.5 H Total Protein 7.0 Albumin 3.1 L 11/19/19 11:32 WBC RBC Hgb Hct MCV MCH MCHC RDW Plt Count MPV Absolute Neuts (auto) Neutrophils % Lymphocytes % Monocytes % Eosinophils % Basophils % Nucleated RBC % Sodium Potassium Chloride Carbon Dioxide Anion Gap BUN Creatinine Est GFR (CKD-EPI)AfAm Est GFR (CKD-EPI)NonAf POC Glucometer 188 Random Glucose Hemoglobin A1c % Calcium Magnesium Iron TIBC Iron Saturation Unsaturated IBC Total Bilirubin AST ALT Alkaline Phosphatase B-Natriuretic Peptide Total Protein Albumin Active Medications Generic Name Dose Route Start Last Admin Trade Name Freq PRN Reason Stop Dose Admin Acetaminophen 650 mg 11/18/19 18:21 11/18/19 18:36 Tylenol - PO 650 mg Q6H PRN Administration PAIN LEVEL 6-10 Albuterol/Ipratropium 1 amp 11/17/19 21:02 11/19/19 10:11 Duoneb - NEB 1 amp RQID PRN Administration SHORTNESS OF BREATH Amlodipine Besylate 10 mg 11/17/19 10:00 11/19/19 09:23 Norvasc - PO 10 mg DAILY PK Administration Ferrous Sulfate 325 mg 11/17/19 10:00 11/19/19 09:23 Feosol - PO 325 mg DAILY PK Administration Furosemide 40 mg 11/19/19 14:00 Lasix Injection - IVPUSH BID@0600,1400 PK Ceftriaxone Sodium 1 gm/ 50 mls @ 200 mls/hr 11/17/19 12:45 11/19/19 09:22 Dextrose IVPB 200 mls/hr DAILY PK Administration Protocol Insulin Aspart 1 vial 11/17/19 22:00 11/19/19 11:48 Novolog Vial Sliding Scale - SQ 2 units ACHS PK Administration Protocol Lidocaine 1 patch 11/18/19 18:30 11/19/19 09:45 Lidoderm Patch - TP Not Given DAILY PK Lisinopril 10 mg 11/17/19 10:00 11/19/19 09:44 Prinivil PO 10 mg DAILY PK Administration Miscellaneous 1 each 11/18/19 22:00 11/18/19 22:55 Lidoderm Patch Removal MC 1 each DAILY@2200 PK Administration Nebivolol 5 mg 11/17/19 10:00 11/19/19 09:23 Bystolic - PO 5 mg DAILY PK Administration Nystatin 1 applic 11/17/19 21:15 11/19/19 09:44 Nystop Powder - TP 1 applic DAILY [facility] Administration Pantoprazole Sodium 40 mg 11/17/19 10:00 11/19/19 09:23 Protonix - PO 40 mg DAILY PK Administration Sertraline HCl 50 mg 11/17/19 10:00 11/19/19 09:23 Zoloft - PO 50 mg DAILY PK Administration Spironolactone 25 mg 11/18/19 15:00 11/19/19 09:23 Aldactone - PO 25 mg DAILY [facility] Administration Zolpidem Tartrate 5 mg 11/19/19 12:37 Ambien - PO HS PRN INSOMNIA ASSESSMENT/PLAN: Problem List - Problems (1) Acute on chronic diastolic (congestive) heart failure Assessment/Plan: patient on lasix 20mg at home. elevated bnp 8K on admission, repeat bnp 13k now with worsening shortness of breath. she is home oxygen dependent at 3.5 liters. will increase lasix to bid dose and monitor renal function monitor weights, labs, kidney function on lasix 40mg bid cardiology following/pulm following Code(s): I50.33 - ACUTE ON CHRONIC DIASTOLIC (CONGESTIVE) HEART FAILURE (2) Acute metabolic encephalopathy Assessment/Plan: resolved. mentation improved and back to baseline. head ct negative for acute process Code(s): G93.41 - METABOLIC ENCEPHALOPATHY (3) Diabetes mellitus Assessment/Plan: novolog ss based on BGMs Code(s): E11.9 - TYPE 2 DIABETES MELLITUS WITHOUT COMPLICATIONS Qualifiers: Diabetes mellitus type: type 2 Diabetes mellitus terminal system operator insulin use: wit hout chcf use Diabetes mellitus complication status: without complication Qualified Code(s): E11.9 - Type 2 diabetes mellitus without complications (4) Dyspnea Assessment/Plan: dyspnea in the setting of acute on chronic chf exacerbation. home oxygen dependent monitor respiratory status Code(s): R06.00 - DYSPNEA, UNSPECIFIED Qualifiers: Dyspnea type: dyspnea on exertion Qualified Code(s): R06.00 - Dyspnea, unspecified (5) Pneumonia Assessment/Plan: as seen on chest xray. LLL pneumonia. on ceftriaxone Code(s): J18.9 - PNEUMONIA, UNSPECIFIED ORGANISM (6) UTI (urinary tract infection) Assessment/Plan: on ceftriaxone pending urine culture Code(s): N39.0 - URINARY TRACT INFECTION, SITE NOT SPECIFIED (7) DVT prophylaxis Assessment/Plan: no a/c secondary to epistaxis. SCDs ordered Code(s): Z29.9 - ENCOUNTER FOR PROPHYLACTIC MEASURES, UNSPECIFIED (8) Hypertension Assessment/Plan: on Bystolic 5 mg daily, amlodipine 10 mg qd, Lipitor 40 mg, Prinivil 10 mg qd Code(s): I10 - ESSENTIAL (PRIMARY) HYPERTENSION Visit type - Emergency Visit Emergency Visit: Yes ED Registration Date: 11/16/19 Care time: The patient presented to the Emergency Department on the above date and was hospitalized for further evaluation of their emergent condition. - New Patient This patient is new to me today: No - Critical Care Critical Care patient: No - Discharge Referral Referred to [facility] Med [facility].: No
[2019-11-19] MEDS ORDERED: FUROSEMIDE 40 MG/4 ML INJECTABLE VIAL IVPUSH SCH (14:00)
--- NOTE | 2019-11-19 15:54 | PN ---
Progress Note, Physician History of Present Illness: stable breathing better no complaints - Current Medication List Current Medications: Active Medications Acetaminophen (Tylenol -) 650 mg PO Q6H PRN PRN Reason: PAIN LEVEL 6-10 Last Admin: 11/18/19 18:36 Dose: 650 mg Documented by: Albuterol/Ipratropium (Duoneb -) 1 amp NEB RQID PRN PRN Reason: SHORTNESS OF BREATH Last Admin: 11/19/19 10:11 Dose: 1 amp Documented by: Amlodipine Besylate (Norvasc -) 10 mg PO DAILY [facility] Last Admin: 11/19/19 09:23 Dose: 10 mg Documented by: Ferrous Sulfate (Feosol -) 325 mg PO DAILY [facility] Last Admin: 11/19/19 09:23 Dose: 325 mg Documented by: Furosemide (Lasix Injection -) 40 mg IVPUSH BID@0600,1400 [facility] Last Admin: 11/19/19 13:31 Dose: 40 mg Documented by: Ceftriaxone Sodium 1 gm/ (Dextrose) 50 mls @ 200 mls/hr IVPB DAILY [facility]; Protocol Last Admin: 11/19/19 09:22 Dose: 200 mls/hr Documented by: Insulin Aspart (Novolog Vial Sliding Scale -) 1 vial SQ ACHS [facility]; Protocol Last Admin: 11/19/19 11:48 Dose: 2 units Documented by: Lidocaine (Lidoderm Patch -) 1 patch TP DAILY [facility] Last Admin: 11/19/19 09:45 Dose: Not Given Documented by: Lisinopril (Prinivil) 10 mg PO DAILY [facility] Last Admin: 11/19/19 09:44 Dose: 10 mg Documented by: Miscellaneous (Lidoderm Patch Removal) 1 each MC DAILY@2200 [facility] Last Admin: 11/18/19 22:55 Dose: 1 each Documented by: Nebivolol (Bystolic -) 5 mg PO DAILY [facility] Last Admin: 11/19/19 09:23 Dose: 5 mg Documented by: Nystatin (Nystop Powder -) 1 applic TP DAILY [facility] Last Admin: 11/19/19 09:44 Dose: 1 applic Documented by: Pantoprazole Sodium (Protonix -) 40 mg PO DAILY [facility] Last Admin: 11/19/19 09:23 Dose: 40 mg Documented by: Sertraline HCl (Zoloft -) 50 mg PO DAILY [facility] Last Admin: 11/19/19 09:23 Dose: 50 mg Documented by: Spironolactone (Aldactone -) 25 mg PO DAILY [facility] Last Admin: 11/19/19 09:23 Dose: 25 mg Documented by: Zolpidem Tartrate (Ambien -) 5 mg PO HS PRN PRN Reason: INSOMNIA - Objective Vital Signs: Vital Signs Temperature 97.6 F 11/19/19 08:23 Pulse Rate 70 11/19/19 08:23 Respiratory Rate 18 11/19/19 08:23 Blood Pressure 146/64 11/19/19 08:23 O2 Sat by Pulse Oximetry (%) 91 L 11/19/19 09:00 Constitutional: Yes: No Distress, Calm Cardiovascular: Yes: S1, S2 Respiratory: Yes: Regular, On Nasal O2, Poor Air Entry Gastrointestinal: Yes: Normal Bowel Sounds, Soft Musculoskeletal: Yes: WNL Extremities: Yes: WNL Neurological: Yes: Alert, Oriented Psychiatric: Yes: Alert, Oriented Labs: CBC, BMP 11/19/19 08:19 11/19/19 08:19 INR, PTT INR 1.69 (0.83-1.09) H 11/16/19 12:00 Assessment/Plan Problem List - Problems (1) AMS (altered mental status) Code(s): R41.82 - ALTERED MENTAL STATUS, UNSPECIFIED Qualifiers: Altered mental status type: disorientation Qualified Code(s): R41.0 - Disorientation, unspecified (2) CHF exacerbation Code(s): I50.9 - HEART FAILURE, UNSPECIFIED Qualifiers: Heart failure type: unspecified Qualified Code(s): I50.9 - Heart failure, unspecified (3) Aortic stenosis, severe Code(s): I35.0 - NONRHEUMATIC AORTIC (VALVE) STENOSIS (4) CHF exacerbation Code(s): I50.9 - HEART FAILURE, UNSPECIFIED Qualifiers: Heart failure type: diastolic Qualified Code(s): I50.33 - Acute on chronic diastolic (congestive) heart failure (5) Anemia Code(s): D64.9 - ANEMIA, UNSPECIFIED Qualifiers: Anemia type: unspecified type Qualified Code(s): D64.9 - Anemia, unspecified (6) COPD (chronic obstructive pulmonary disease) Code(s): J44.9 - CHRONIC OBSTRUCTIVE PULMONARY DISEASE, UNSPECIFIED Qualifiers: COPD type: unspecified COPD Qualified Code(s): J44.9 - Chronic obstructive pulmonary disease, unspecified (7) Diabetes mellitus Code(s): E11.9 - TYPE 2 DIABETES MELLITUS WITHOUT COMPLICATIONS Qualifiers: Diabetes mellitus type: type 2 Diabetes mellitus longterm insulin use: without longterm use Diabetes mellitus complication status: without co mplication Qualified Code(s): E11.9 - Type 2 diabetes mellitus without co mplications (8) HTN (hypertension) Code(s): I10 - ESSENTIAL (PRIMARY) HYPERTENSION Qualifiers: Hypertension type: essential hypertension Qualified Code(s): I10 - Essential (primary) hypertension (9) Mitral valve regurgitation Code(s): I34.0 - NONRHEUMATIC MITRAL (VALVE) INSUFFICIENCY Qualifiers: Cardiac valve disease etiology: nonrheumatic Qualified Code(s): I34.0 - Nonrheumatic mitral (valve) insufficiency (10) Chronic kidney disease (CKD) Code(s): N18.9 - CHRONIC KIDNEY DISEASE, UNSPECIFIED Qualifiers: Chronic kidney disease stage: stage 2 (mild) Qualified Code(s): N18.2 - Chronic kidney disease, stage 2 (mild) (11) Epistaxis Code(s): R04.0 - EPISTAXIS 12 uti plan continue abx resp treatment pul on board rest as per the team
[2019-11-19] MEDS ORDERED: FUROSEMIDE 40 MG/4 ML INJECTABLE VIAL IVPUSH ONE (18:56)
[2019-11-19] MEDS: LIDOCAINE PATCH REMOVAL MC SCH (21:59)
[2019-11-20] MEDS: FUROSEMIDE 40 MG/4 ML INJECTABLE VIAL IVPUSH SCH ×2 (06:12→13:54)
[2019-11-20] MEDS: INSULIN SLIDING SCALE (NOVOLOG) 1 VIAL SQ SCH ×4 (06:19→21:43)
--- NOTE | 2019-11-20 08:29 | PN ---
Progress Note (short form) - Note Progress Note: PULMONARY APPEARS DYSPNEIC VSS/AFEBRILE Constitutional: Yes: NAD Eyes: Yes: Conjunctiva Clear HENT: Yes: Atraumatic, Normocephalic Neck: Yes: Supple, Trachea Midline Cardiovascular: Yes: S1, S2 Respiratory: Yes: Poor Air Entry/diminished breath sounds left base Gastrointestinal: Yes: Normal Bowel Sounds, Soft Musculoskeletal: Yes: WNL Extremities: Yes: WNL Neurological: Yes: Alert, Oriented Psychiatric: Yes: Alert, Oriented Labs: noted CXR: CARDIOMEGALY/LEFT PL EFF/CALCIFIC AORTIC KNOB IMP DYSPNEA ACUTE ON CHRONIC CHF EPISTAXIS ALTERED MENTAL STATUS SEVERE ASTHMA/ COPD ON O2 PULMONARY HTN DM AFIB HTN CKD ANEMIA UTI E.COLI PLAN O2 LASIX INHALED BRONCHODILATORS DAILY WTS MONITOR LYTES,RENAL FUNCTION ABX FOR UTI Prerna AYERS MD
--- NOTE | 2019-11-20 08:56 | CONSULT ---
Consult - text type - Consultation Consultation Note: ENT consult 83 yo woman reportedly had recent epistaxis. Was on anticoagulation and is receiving oxygen by nasal canula. She is not able to give history but offers no complaints. P/WD obese WF laying comfortably in bed, in NAD Nose has nasal cannula oxygen in each nostril, with moderate bloody crusts in each nasal cavity. No clot or active bleeding. Imp: epistaxis due to anticoagulation and nasal cannula oxygen Recommend stop nasal cannula oxygen, begin humidification of room air and of all oxygen delivered without nasal cannula, lubricate inside of nose with saline gel several times/day, reconsult prn, consider outpatient follow up to re-assess the nose
--- NOTE | 2019-11-20 09:01 | PN ---
Progress Note (short form) - Note Progress Note: PULMONARY PLEASE SEE NOTE FROM THIS AM SPOKE WITH [facility] INFORMED OF CONDITION OF PATIENT PATIENT NEVER WISHED TO BE INTUBATED OR RESUSCITATED ABG/CXR PENDING CONTINUE CURRENT TREATMENT Prerna AYERS MD
[2019-11-20] MEDS ORDERED: DEXTROSE 5%-WATER - 50 ML IVPB ONE (09:11)
[2019-11-20] MEDS ORDERED: cefTRIAXone SODIUM 1 GM VIAL ONE (09:11)
[2019-11-20] MEDS: CEFTRIAXONE 1 GM in DEXTROSE 5%-WATER - 50 ML IVPB SCH (09:19)
[2019-11-20] MEDS: SPIRONOLACTONE 25 MG TABLET PO SCH (09:20)
[2019-11-20] MEDS: LIDOCAINE 5% TOPICAL PATCH TP SCH (09:20)
[2019-11-20] MEDS: amLODIPine BESYLATE 10 MG TABLET (FP) PO SCH (09:20)
[2019-11-20] MEDS: NEBIVOLOL 5 MG TABLET (FP) PO SCH (09:20)
[2019-11-20] MEDS: SERTRALINE HCL 50 MG TABLET (FP) PO SCH (09:20)
[2019-11-20] MEDS: PANTOPRAZOLE 40 MG TABLET PO SCH (09:20)
[2019-11-20] MEDS: FERROUS SO4 325 MG TABLET (FP) PO SCH (09:20)
[2019-11-20] MEDS: LISINOPRIL 10 MG TABLET (FP) PO SCH (09:20)
[2019-11-20] MEDS: NYSTATIN POWDER 100,000 UNITS/GM - 15 GM TOPICAL POWDER TP SCH (09:22)
--- NOTE | 2019-11-20 10:12 | PN ---
Progress Note (short form) - Note Progress Note: Worsening dyspnea and oxygenation, started on venti, CXR: worsening ijn terstitial/vesicular , LLL consolidation with effusion remains Now "Do Not Intubate" as per wishes Vital Signs Temperature 98.2 F 11/20/19 09:00 Pulse Rate 80 11/20/19 09:00 Respiratory Rate 22 H 11/20/19 09:00 Blood Pressure 132/59 L 11/20/19 09:00 O2 Sat by Pulse Oximetry (%) 92 L 11/19/19 21:00 Cardiovascular: Yes: Regular Rate and Rhythm, Murmur (2/6 SM) Respiratory: Yes: tachy, Diminished, Onventi mask Gastrointestinal: Yes: Normal Bowel Sounds, Soft Edema: No Labs: CBC, BMP 11/19/19 08:19 11/19/19 08:19 Active Medications Acetaminophen (Tylenol -) 650 mg PO Q6H PRN PRN Reason: PAIN LEVEL 6-10 Last Admin: 11/18/19 18:36 Dose: 650 mg Documented by: Albuterol/Ipratropium (Duoneb -) 1 amp NEB RQID PRN PRN Reason: SHORTNESS OF BREATH Last Admin: 11/19/19 19:00 Dose: 1 amp Documented by: Amlodipine Besylate (Norvasc -) 10 mg PO DAILY [facility] Last Admin: 11/20/19 09:20 Dose: 10 mg Documented by: Ferrous Sulfate (Feosol -) 325 mg PO DAILY [facility] Last Admin: 11/20/19 09:20 Dose: 325 mg Documented by: Furosemide (Lasix Injection -) 60 mg IVPUSH BID@0600,1400 [facility] Last Admin: 11/20/19 06:12 Dose: 60 mg Documented by: Ceftriaxone Sodium 1 gm/ (Dextrose) 50 mls @ 200 mls/hr IVPB DAILY [facility]; Protocol Last Admin: 11/20/19 09:19 Dose: 200 mls/hr Documented by: Insulin Aspart (Novolog Vial Sliding Scale -) 1 vial SQ ACHS [facility]; Protocol Last Admin: 11/20/19 06:19 Dose: 2 units Documented by: Lidocaine (Lidoderm Patch -) 1 patch TP DAILY [facility] Last Admin: 11/20/19 09:20 Dose: Not Given Documented by: Lisinopril (Prinivil) 10 mg PO DAILY [facility] Last Admin: 11/20/19 09:20 Dose: 10 mg Documented by: Miscellaneous (Lidoderm Patch Removal) 1 each MC DAILY@2200 [facility] Last Admin: 11/19/19 21:59 Dose: Not Given Documented by: Nebivolol (Bystolic -) 5 mg PO DAILY [facility] Last Admin: 11/20/19 09:20 Dose: 5 mg Documented by: Nystatin (Nystop Powder -) 1 applic TP DAILY [facility] Last Admin: 11/20/19 09:22 Dose: 1 applic Documented by: Pantoprazole Sodium (Protonix -) 40 mg PO DAILY [facility] Last Admin: 11/20/19 09:20 Dose: 40 mg Documented by: Sertraline HCl (Zoloft -) 50 mg PO DAILY [facility] Last Admin: 11/20/19 09:20 Dose: 50 mg Documented by: Spironolactone (Aldactone -) 25 mg PO DAILY [facility] Last Admin: 11/20/19 09:20 Dose: 25 mg Documented by: Zolpidem Tartrate (Ambien -) 5 mg PO HS PRN PRN Reason: INSOMNIA Last Admin: 11/19/19 21:56 Dose: 5 mg Documented by: - ....Imaging EKG: Report Reviewed (Tele: NSR) Problem List - Problems (1) Acute metabolic encephalopathy Code(s): G93.41 - METABOLIC ENCEPHALOPATHY (2) CHF exacerbation Code(s): I50.9 - HEART FAILURE, UNSPECIFIED Qualifiers: Heart failure type: diastolic Qualified Code(s): I50.33 - Acute on chronic diastolic (congestive) heart failure (3) Moderate to severe aortic stenosis Code(s): I35.0 - NONRHEUMATIC AORTIC (VALVE) STENOSIS (4) Acute on chronic diastolic (congestive) heart failure Code(s): I50.33 - ACUTE ON CHRONIC DIASTOLIC (CONGESTIVE) HEART FAILURE (5) Atrial fibrillation Code(s): I48.91 - UNSPECIFIED ATRIAL FIBRILLATION Qualifiers: Atrial fibrillation type: longstanding persistent Qualified Code(s): I48.11 - Longstanding persistent atrial fibrillation (6) COPD (chronic obstructive pulmonary disease) Code(s): J44.9 - CHRONIC OBSTRUCTIVE PULMONARY DISEASE, UNSPECIFIED Qualifiers: COPD type: unspecified COPD Qualified Code(s): J44.9 - Chronic obstructive pulmonary disease, unspecified (7) Chronic anticoagulation Code(s): Z79.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 (8) Diabetes mellitus Code(s): E11.9 - TYPE 2 DIABETES MELLITUS WITHOUT COMPLICATIONS Qualifiers: Diabetes mellitus type: type 2 Diabetes mellitus manager intermediate insulin use: without prison use Diabetes mellitus complication status: without com plication Qualified Code(s): E11.9 - Type 2 diabetes mellitus without com plications (9) HTN (hypertension) Code(s): I10 - ESSENTIAL (PRIMARY) HYPERTENSION Qualifiers: Hypertension type: essential hypertension Qualified Code(s): I10 - Essential (primary) hypertension (10) Chronic kidney disease (CKD) Code(s): N18.9 - CHRONIC KIDNEY DISEASE, UNSPECIFIED Qualifiers: Chronic kidney disease stage: stage 2 (mild) Qualified Code(s): N18.2 - Chronic kidney disease, stage 2 (mild) (11) Epistaxis Code(s): R04.0 - EPISTAXIS Assessment/Plan Respiratory failure/LLL pneumonia 1. Acute on chronic LV diastolic failure, class II NYHA classification LV failure improving 2. Epistaxis since resolved 3. Toxic metabolic encephelopathy resolving 4. Mod-severe , pulm HTN 5. Asthma, Chronic obstructive airway disease 6. Persistent atrial fibrillation with [id number] score of 7 on chronic A/C with DOAC/Eliquis 7. Diabetes mellitus 8. HTN 9. CKD 10. Anemia with h/o GI bleed PLAN: -Worsening respiratory 1. Cont IV diuresis and Aldactone 25 qd with close monitoring of diuretic response, renal function and electrolytes 2. Continue byastolic,, Amlodipine 10 mg QD, Lipitor 40 mg QHS, Prinivil 10 mg QD with caution once renal function stabilizes 3.Off AC due to nasal bleeding; resume when feasible 4.underlying infectious/pulmonary as per primary team;
[2019-11-20] MEDS: ALBUTEROL SO4 2.5/IPRATROPIUM 0.5 INH SOL 3 ML VIAL.NEB. NEB PRN ×2 (10:36→20:30)
[2019-11-20 11:30] LABS: ARTERIAL BLD GAS O2 SATURATION 98.2 mmHg (95-98); ARTERIAL BLOOD GAS BASE EXCESS 9.9 mmol/L (-2-2); ARTERIAL BLOOD GAS PO2 131.7 mmHg (80-100)
[2019-11-20 12:01] LABS: BASO % 0.7 % (0-2.0); EOS % 0.1 % (0-4.5); HEMATOCRIT 30.7 % (32.4-45.2); HEMOGLOBIN 9.6 GM/dL (10.7-15.3); LYMPH % 3.8 % (8-40); MCH 26.5 pg (25.7-33.7); MCHC 31.1 g/dl (32.0-36.0); MEAN CELL VOLUME 85.1 fl (80-96); MEAN PLT VOLUME 9.3 fl (7.5-11.1); NEUT % 88.4 % (42.8-82.8); PLATELET COUNT 254 K/MM3 (134-434); RBC 3.61 M/mm3 (3.60-5.2); RDW 16.4 % (11.6-15.6); WHITE BLOOD COUNT 9.4 K/mm3 (4.0-10.0)
--- NOTE | 2019-11-20 12:19 | ECHO ---
Version: 1 Name: KOBY RITCHIE Exam: Adult Echocardiogram Study Date: 11/20/2019, 11:12 AM Age: 83 Years MMode/2D Measurements & Calculations IVSd: 1.28 cm LVIDs: 2.5 cm LVIDd: 4.0 cm LVPWd: 1.13 cm LAV (MOD-bp): 105.0 ml LVOT diam: 2.03 cm Ao root diam: 2.8 cm LA dimension: 5.1 cm Doppler Measurements & Calculations MV E max trae: 146.0 cm/sec Med E/e': 28.6 MV A max trae: 49.4 cm/sec Med Peak E' Trae: 5.1 cm/sec MV E/A: 3.0 Lat E/e': 24.9 Lat Peak E' Trae: 5.9 cm/sec MR max P.1 mmHg Ao max P.1 mmHg CHARI(I,D): 0.61 cm Ao mean P.8 mmHg LV V1 mean: 52.3 cm/sec Ao V2 max: 380.9 cm/sec LV V1 mean P.21 mmHg TR max trae: 369.2 cm/sec TR max P.7 mmHg Left Ventricle Left ventricular systolic function is grossly normal. Ejection Fraction = 50-55%. Septal motion is c onsistent with conduction abnormality. Right Ventricle The right ventricle is normal in size and function. Atria The left atrium is moderately dilated. Mitral Valve There is moderate mitral valve thickening. There is no mitral valve stenosis. There is moderate mitr al regurgitation. Tricuspid Valve The tricuspid valve is not well visualized, but is grossly normal. There is mild to moderate tricusp id regurgitation. Right ventricular systolic pressure is elevated at 50-60mmHg. Aortic Valve Moderate to severe valvular aortic stenosis. Severely reduced aortic valve leaflet excursion, appear s severe visually and by calculated aortic valve area. The obtained mean gradients fall in the upper moderate range. Pulmonic Valve The pulmonic valve is not well seen, but is grossly normal. There is no pulmonic valvular regurgitat ion. Great Vessels The aortic root is normal size. Pericardium/Pleura There is no pericardial effusion. Summary Statements Left ventricular systolic function is grossly normal. Ejection Fraction = 50-55%. The left atrium is moderately dilated. There is moderate mitral valve thickening. There is moderate mitral regurgitation. There is mild to moderate tricuspid regurgitation. Right ventricular systolic pressure is elevated at 50-60mmHg. Moderate to severe valvular aortic stenosis. Severely reduced aortic valve leaflet excursion, appears severe visually and by calculated aortic va lve area. The obtained mean gradients fall in the upper moderate range. MD Cruz *Anil 11/20/2019, 12:19 PM Ordering Physician: Kristy Leon Performed By: Aggie Crandall
[2019-11-20 12:23] LABS: ALBUMIN 3.1 g/dl (3.4-5.0); BILIRUBIN,TOTAL 0.4 mg/dL (0.2-1); TOT PROT 6.8 g/dl (6.4-8.2)
[2019-11-20 12:24] LABS: CALCIUM 8.7 mg/dL (8.5-10.1); CREATININE 1.4 mg/dL (0.55-1.3); MAGNESIUM 2.3 mg/dL (1.8-2.4); POTASSIUM 3.6 mmol/L (3.5-5.1)
--- NOTE | 2019-11-20 13:06 | PN ---
Progress Note, Physician History of Present Illness: went into resp failure lethargic on bipap now - Current Medication List Current Medications: Active Medications Acetaminophen (Tylenol -) 650 mg PO Q6H PRN PRN Reason: PAIN LEVEL 6-10 Last Admin: 11/18/19 18:36 Dose: 650 mg Documented by: Albuterol/Ipratropium (Duoneb -) 1 amp NEB RQID PRN PRN Reason: SHORTNESS OF BREATH Last Admin: 11/20/19 10:36 Dose: 1 amp Documented by: Amlodipine Besylate (Norvasc -) 10 mg PO DAILY [facility] Last Admin: 11/20/19 09:20 Dose: 10 mg Documented by: Ferrous Sulfate (Feosol -) 325 mg PO DAILY [facility] Last Admin: 11/20/19 09:20 Dose: 325 mg Documented by: Furosemide (Lasix Injection -) 60 mg IVPUSH BID@0600,1400 [facility] Last Admin: 11/20/19 06:12 Dose: 60 mg Documented by: Ceftriaxone Sodium 1 gm/ (Dextrose) 50 mls @ 200 mls/hr IVPB DAILY [facility]; Protocol Last Admin: 11/20/19 09:19 Dose: 200 mls/hr Documented by: Insulin Aspart (Novolog Vial Sliding Scale -) 1 vial SQ ACHS [facility]; Protocol Last Admin: 11/20/19 12:27 Dose: Not Given Documented by: Lidocaine (Lidoderm Patch -) 1 patch TP DAILY [facility] Last Admin: 11/20/19 09:20 Dose: Not Given Documented by: Lisinopril (Prinivil) 10 mg PO DAILY [facility] Last Admin: 11/20/19 09:20 Dose: 10 mg Documented by: Miscellaneous (Lidoderm Patch Removal) 1 each MC DAILY@2200 [facility] Last Admin: 11/19/19 21:59 Dose: Not Given Documented by: Nebivolol (Bystolic -) 5 mg PO DAILY [facility] Last Admin: 11/20/19 09:20 Dose: 5 mg Documented by: Nystatin (Nystop Powder -) 1 applic TP DAILY [facility] Last Admin: 11/20/19 09:22 Dose: 1 applic Documented by: Pantoprazole Sodium (Protonix -) 40 mg PO DAILY [facility] Last Admin: 11/20/19 09:20 Dose: 40 mg Documented by: Sertraline HCl (Zoloft -) 50 mg PO DAILY [facility] Last Admin: 11/20/19 09:20 Dose: 50 mg Documented by: Spironolactone (Aldactone -) 25 mg PO DAILY [facility] Last Admin: 11/20/19 09:20 Dose: 25 mg Documented by: Zolpidem Tartrate (Ambien -) 5 mg PO HS PRN PRN Reason: INSOMNIA Last Admin: 11/19/19 21:56 Dose: 5 mg Documented by: - Objective Vital Signs: Vital Signs Temperature 98.2 F 11/20/19 09:00 Pulse Rate 80 11/20/19 09:00 Respiratory Rate 22 H 11/20/19 09:00 Blood Pressure 132/59 L 11/20/19 09:00 O2 Sat by Pulse Oximetry (%) 91 L 11/20/19 09:00 Constitutional: Yes: Other Respiratory: Yes: On BiPap, Poor Air Entry, Other Gastrointestinal: Yes: Normal Bowel Sounds, Soft Musculoskeletal: Yes: WNL Extremities: Yes: WNL Neurological: Yes: Other (lethargy) Labs: CBC, BMP 11/20/19 11:40 11/20/19 11:40 INR, PTT INR 1.69 (0.83-1.09) H 11/16/19 12:00 - ....Imaging Chest X-ray: Report Reviewed, Image Reviewed Assessment/Plan Problem List - Problems (1) AMS (altered mental status) Code(s): R41.82 - ALTERED MENTAL STATUS, UNSPECIFIED Qualifiers: Altered mental status type: disorientation Qualified Code(s): R41.0 - Disorientation, unspecified (2) CHF exacerbation Code(s): I50.9 - HEART FAILURE, UNSPECIFIED Qualifiers: Heart failure type: unspecified Qualified Code(s): I50.9 - Heart failure, unspecified (3) Aortic stenosis, severe Code(s): I35.0 - NONRHEUMATIC AORTIC (VALVE) STENOSIS (4) CHF exacerbation Code(s): I50.9 - HEART FAILURE, UNSPECIFIED Qualifiers: Heart failure type: diastolic Qualified Code(s): I50.33 - Acute on chronic diastolic (congestive) heart failure (5) Anemia Code(s): D64.9 - ANEMIA, UNSPECIFIED Qualifiers: Anemia type: unspecified type Qualified Code(s): D64.9 - Anemia, unspecified (6) COPD (chronic obstructive pulmonary disease) Code(s): J44.9 - CHRONIC OBSTRUCTIVE PULMONARY DISEASE, UNSPECIFIED Qualifiers: COPD type: unspecified COPD Qualified Code(s): J44.9 - Chronic obstructive pulmonary disease, unspecified (7) Diabetes mellitus Code(s): E11.9 - TYPE 2 DIABETES MELLITUS WITHOUT COMPLICATIONS Qualifiers: Diabetes mellitus type: type 2 Diabetes mellitus fdc insulin use: without intermediate frame tender use Diabetes mellitus complication status: without complication Qualified Code(s): E11.9 - Type 2 diabetes mellitus without complications (8) HTN (hypertension) Code(s): I10 - ESSENTIAL (PRIMARY) HYPERTENSION Qualifiers: Hypertension type: essential hypertension Qualified Code(s): I10 - Essential (primary) hypertension (9) Mitral valve regurgitation Code(s): I34.0 - NONRHEUMATIC MITRAL (VALVE) INSUFFICIENCY Qualifiers: Cardiac valve disease etiology: nonrheumatic Qualified Code(s): I34.0 - Nonrheumatic mitral (valve) insufficiency (10) Chronic kidney disease (CKD) Code(s): N18.9 - CHRONIC KIDNEY DISEASE, UNSPECIFIED Qualifiers: Chronic kidney disease stage: stage 2 (mild) Qualified Code(s): N18.2 - Chronic kidney disease, stage 2 (mild) (11) Epistaxis Code(s): R04.0 - EPISTAXIS 12 uti plan continue abx resp treatment pul on board rest as per the team resp support monitor abg
--- NOTE | 2019-11-20 13:08 | PN ---
Physical Exam: SUBJECTIVE: Patient seen and examined. called this morning by primary RN that patient was having difficulty breathing and appeared more lethargic. OBJECTIVE: patient noted to have tachypnea with accessory muscle use. placed on NRB. abg with elevated CO2, placed on bipap. patient lethargic. dr. shearer spoke to family, they want patient to be dnr/dni. orders placed and palliative care consulted. chest xray 11/20/2019: interval increase interstitial and airspace opacities/infiltrates bilaterally as well as atelectasis/consolidation of right lung base. -------- Patient is a 83 year old Female with known history of atrial fibrillation (on Eliquis), CHF, pullmonary hypertension, diabetes 2, COPD on senior living oxygen therapy (3 li NC) anxiety, GI bleed who was sent to the ED by family for confusion, altered mentation and epistaxis episode. Patient unable to give a good history. Since arriving in the ED, epistaxis has since resolved. On admission, patient noted to have a LLL pnemonia and CHF exacerbation (bnp 8K). Patient was also reported to have AMS, but has since resolved. Head Ct negative. Also noted to have a UTI, UC with + ecoli (on ceftriaxone). Vital Signs Period Temp Pulse Resp BP Sys/Mo Pulse Ox Last 24 Hr 97.5 F-98.5 F 72-81 16-23 132-159/48-82 91-92 GENERAL: lethargic, arousable to name and tactile stimuli. HEAD: Normal with no signs of trauma. EYES: PERRL, extraocular movements intact, sclera anicteric, conjunctiva clear. No ptosis. ENT: Ears normal, nares patent, oropharynx clear without exudates, moist mucous membranes. NECK: Trachea midline, full range of motion, supple. LUNGS: crackles throughout lung chin HEART: irregular 70s-80s ABDOMEN: Soft, nontender, nondistended, normoactive bowel sounds, no guarding, no rebound EXTREMITIES: right leg contracted s/p hip surgery NEUROLOGICAL: lethargic Laboratory Results - last 24 hr 11/19/19 11/20/19 11/20/19 16:19 06:15 10:44 WBC RBC Hgb Hct MCV MCH MCHC RDW Plt Count MPV Absolute Neuts (auto) Neutrophils % Lymphocytes % Monocytes % Eosinophils % Basophils % Nucleated RBC % Anticoagulation Therapy No Result Required. Puncture Site Left radial Patient Temperature No Result Required. ABG pH 7.310 L ABG pCO2 77.90 H* ABG pO2 131.7 H ABG HCO3 38.3 H ABG O2 Sat (Measured) 98.2 H ABG O2 Content No Result Required. ABG Base Excess 9.9 H Dmitri Test No Result Required. Patient On Oxygen Yes O2 Delivery Device Nrb Oxygen Flow Rate 100 Vent Mode No Result Required. Vent Rate No Result Required. Mechanical Rate No Result Required. PEEP No Result Required. Pressure Support Vent No Result Required. Sodium Potassium Chloride Carbon Dioxide Anion Gap BUN Creatinine Est GFR (CKD-EPI)AfAm Est GFR (CKD-EPI)NonAf POC Glucometer 144 159 Random Glucose Calcium Magnesium Total Bilirubin AST ALT Alkaline Phosphatase Total Protein Albumin 11/20/19 11/20/19 11/20/19 11:40 11:40 11:52 WBC 9.4 RBC 3.61 Hgb 9.6 L Hct 30.7 L MCV 85.1 MCH 26.5 MCHC 31.1 L RDW 16.4 H Plt Count 254 MPV 9.3 Absolute Neuts (auto) 8.3 H Neutrophils % 88.4 H Lymphocytes % 3.8 L Monocytes % 7.0 Eosinophils % 0.1 Basophils % 0.7 Nucleated RBC % 0 Anticoagulation Therapy Puncture Site Patient Temperature ABG pH ABG pCO2 ABG pO2 ABG HCO3 ABG O2 Sat (Measured) ABG O2 Content ABG Base Excess Dmitri Test Patient On Oxygen O2 Delivery Device Oxygen Flow Rate Vent Mode Vent Rate Mechanical Rate PEEP Pressure Support Vent Sodium 136 Potassium 3.6 Chloride 89 L Carbon Dioxide 42 H Anion Gap 5 L BUN 59.0 H Creatinine 1.4 H Est GFR (CKD-EPI)AfAm 39.89 Est GFR (CKD-EPI)NonAf 34.42 POC Glucometer 191 Random Glucose 196 H Calcium 8.7 Magnesium 2.3 Total Bilirubin 0.4 AST 19 ALT 16 Alkaline Phosphatase 214 H Total Protein 6.8 Albumin 3.1 L Active Medications Generic Name Dose Route Start Last Admin Trade Name Freq PRN Reason Stop Dose Admin Acetaminophen 650 mg 11/18/19 18:21 11/18/19 18:36 Tylenol - PO 650 mg Q6H PRN Administration PAIN LEVEL 6-10 Albuterol/Ipratropium 1 amp 11/17/19 21:02 11/20/19 10:36 Duoneb - NEB 1 amp RQID PRN Administration SHORTNESS OF BREATH Amlodipine Besylate 10 mg 11/17/19 10:00 11/20/19 09:20 Norvasc - PO 10 mg DAILY PK Administration Ferrous Sulfate 325 mg 11/17/19 10:00 11/20/19 09:20 Feosol - PO 325 mg DAILY [facility] Administration Furosemide 60 mg 11/20/19 06:00 11/20/19 06:12 Lasix Injection - IVPUSH 60 mg BID@0600,1400 [facility] Administration Ceftriaxone Sodium 1 gm/ 50 mls @ 200 mls/hr 11/17/19 12:45 11/20/19 09:19 Dextrose IVPB 200 mls/hr DAILY [facility] Administration Protocol Insulin Aspart 1 vial 11/17/19 22:00 11/20/19 12:27 Novolog Vial Sliding Scale - SQ Not Given ACHS PK Protocol Lidocaine 1 patch 11/18/19 18:30 11/20/19 09:20 Lidoderm Patch - TP Not Given DAILY [facility] Lisinopril 10 mg 11/17/19 10:00 11/20/19 09:20 Prinivil PO 10 mg DAILY [facility] Administration Miscellaneous 1 each 11/18/19 22:00 11/19/19 21:59 Lidoderm Patch Removal MC Not Given DAILY@2200 [facility] Nebivolol 5 mg 11/17/19 10:00 11/20/19 09:20 Bystolic - PO 5 mg DAILY [facility] Administration Nystatin 1 applic 11/17/19 21:15 11/20/19 09:22 Nystop Powder - TP 1 applic DAILY [facility] Administration Pantoprazole Sodium 40 mg 11/17/19 10:00 11/20/19 09:20 Protonix - PO 40 mg DAILY [facility] Administration Sertraline HCl 50 mg 11/17/19 10:00 11/20/19 09:20 Zoloft - PO 50 mg DAILY [facility] Administration Spironolactone 25 mg 11/18/19 15:00 11/20/19 09:20 Aldactone - PO 25 mg DAILY [facility] Administration Zolpidem Tartrate 5 mg 11/19/19 12:37 11/19/19 21:56 Ambien - PO 5 mg HS PRN Administration INSOMNIA ASSESSMENT/PLAN: Problem List - Problems (1) Respiratory failure with hypercapnia Assessment/Plan: placed on bipap patient is a dnr/dni ABG noted Code(s): J96.92 - RESPIRATORY FAILURE, UNSPECIFIED WITH HYPERCAPNIA (2) Acute on chronic diastolic (congestive) heart failure Assessment/Plan: elevated bnp 8K on admission, repeat bnp 13k now with worsening shortness of breath. now on bipap for respiratory failure Code(s): I50.33 - ACUTE ON CHRONIC DIASTOLIC (CONGESTIVE) HEART FAILURE (3) Acute metabolic encephalopathy Assessment/Plan: patient lethargic today, respiratory failure. on bipap Code(s): G93.41 - METABOLIC ENCEPHALOPATHY (4) Diabetes mellitus Assessment/Plan: novolog ss based on BGMs Code(s): E11.9 - TYPE 2 DIABETES MELLITUS WITHOUT COMPLICATIONS Qualifiers: Diabetes mellitus type: type 2 Diabetes mellitus senior living insulin use: without senior living use Diabetes mellitus complication status: without complication Qualified Code(s): E11.9 - Type 2 diabetes mellitus without complications (5) Dyspnea Assessment/Plan: on bipap Code(s): R06.00 - DYSPNEA, UNSPECIFIED Qualifiers: Dyspnea type: dyspnea on exertion Qualified Code(s): R06.00 - Dyspnea, unspecified (6) Pneumonia Assessment/Plan: as seen on chest xray. LLL pneumonia. on ceftriaxone Code(s): J18.9 - PNEUMONIA, UNSPECIFIED ORGANISM (7) UTI (urinary tract infection) Assessment/Plan: on ceftriaxone for urine ecoli Code(s): N39.0 - URINARY TRACT INFECTION, SITE NOT SPECIFIED (8) Hypertension Assessment/Plan: unable to tolerate PO, on lopressor 5mg iv prn Code(s): I10 - ESSENTIAL (PRIMARY) HYPERTENSION (9) DNR (do not resuscitate) Code(s): Z66 - DO NOT RESUSCITATE (10) DNI (do not intubate) Code(s): Z78.9 - OTHER SPECIFIED HEALTH STATUS (11) DVT prophylaxis Assessment/Plan: no a/c secondary to epistaxis. SCDs ordered Code(s): Z29.9 - ENCOUNTER FOR PROPHYLACTIC MEASURES, UNSPECIFIED Visit type - Emergency Visit Emergency Visit: Yes ED Registration Date: 11/16/19 Care time: The patient presented to the Emergency Department on the above date and was hospitalized for further evaluation of their emergent condition. - New Patient This patient is new to me today: No - Critical Care Critical Care patient: No - Discharge Referral Referred to [facility] No
[2019-11-20] MEDS ORDERED: METOPROLOL TARTRATE 5 MG/5 ML VIAL IVPUSH PRN (14:28)
[2019-11-20 14:57] LABS: ARTERIAL BLD GAS O2 SATURATION 84.6 mmHg (95-98); ARTERIAL BLOOD GAS BASE EXCESS 11.1 mmol/L (-2-2); ARTERIAL BLOOD GAS PO2 52.7 mmHg (80-100); ARTERIAL BLOOD GAS pH 7.362 (7.350-7.450)
[2019-11-20 15:06] LABS: VENT MODE ST
[2019-11-20 15:07] LABS: VENT RATE 20
[2019-11-20] MEDS ORDERED: MORPHINE SULFATE 2 MG/ML VIAL IM PRN (15:38)
[2019-11-20] MEDS: LIDOCAINE PATCH REMOVAL MC SCH (21:43)
[2019-11-20] MEDS ORDERED: PT OWN MED DRAWER 7, Y5N ONE (22:47)
[2019-11-21] MEDS: FUROSEMIDE 40 MG/4 ML INJECTABLE VIAL IVPUSH SCH ×2 (06:12→13:39)
[2019-11-21] MEDS: INSULIN SLIDING SCALE (NOVOLOG) 1 VIAL SQ SCH ×4 (06:12→21:47)
[2019-11-21] MEDS ORDERED: cefTRIAXone SODIUM 1 GM VIAL ONE (09:11)
[2019-11-21] MEDS ORDERED: DEXTROSE 5%-WATER - 50 ML IVPB ONE (09:11)
[2019-11-21] MEDS: CEFTRIAXONE 1 GM in DEXTROSE 5%-WATER - 50 ML IVPB SCH (09:29)
[2019-11-21] MEDS: NEBIVOLOL 5 MG TABLET (FP) PO SCH (09:30)
[2019-11-21] MEDS: NYSTATIN POWDER 100,000 UNITS/GM - 15 GM TOPICAL POWDER TP SCH (09:30)
[2019-11-21] MEDS: FERROUS SO4 325 MG TABLET (FP) PO SCH (09:30)
[2019-11-21] MEDS: SPIRONOLACTONE 25 MG TABLET PO SCH (09:30)
[2019-11-21] MEDS: amLODIPine BESYLATE 10 MG TABLET (FP) PO SCH (09:30)
[2019-11-21] MEDS: PANTOPRAZOLE 40 MG TABLET PO SCH (09:31)
[2019-11-21] MEDS: LISINOPRIL 10 MG TABLET (FP) PO SCH (09:31)
[2019-11-21] MEDS: SERTRALINE HCL 50 MG TABLET (FP) PO SCH (09:31)
[2019-11-21] MEDS: LIDOCAINE 5% TOPICAL PATCH TP SCH (09:44)
--- NOTE | 2019-11-21 10:50 | PN ---
Progress Note (short form) - Note Progress Note: PULMONARY DNI LESS RESP DISTRESS THIS AM APPEARS LESS DYSPNEIC VSS/AFEBRILE Constitutional: Yes: NAD Eyes: Yes: Conjunctiva Clear HENT: Yes: Atraumatic, Normocephalic Neck: Yes: Supple, Trachea Midline Cardiovascular: Yes: S1, S2 Respiratory: Yes: Poor Air Entry/diminished breath sounds left base Gastrointestinal: Yes: Normal Bowel Sounds, Soft Musculoskeletal: Yes: WNL Extremities: Yes: WNL Neurological: Yes: Alert, Oriented Psychiatric: Yes: Alert, Oriented Labs: noted CXR: CARDIOMEGALY/LEFT PL EFF/CALCIFIC AORTIC KNOB IMP DYSPNEA ACUTE ON CHRONIC CHF EPISTAXIS ALTERED MENTAL STATUS SEVERE ASTHMA/ COPD ON O2 PULMONARY HTN DM AFIB HTN CKD ANEMIA UTI E.COLI PLAN O2 LASIX/SPIRONOLACTONE INHALED BRONCHODILATORS DAILY WTS MONITOR LYTES,RENAL FUNCTION ABX FOR UTI WILL CALL FAMILY Prerna AYERS MD
[2019-11-21] MEDS ORDERED: LORazepam 2 MG/ML SDV VIAL IVPUSH PRN (11:12)
[2019-11-21 11:39] LABS: BASO % 0.6 % (0-2.0); EOS % 0.2 % (0-4.5); HEMATOCRIT 32.5 % (32.4-45.2); HEMOGLOBIN 10.1 GM/dL (10.7-15.3); LYMPH % 5.2 % (8-40); MCH 26.4 pg (25.7-33.7); MEAN CELL VOLUME 85.2 fl (80-96); MEAN PLT VOLUME 9.5 fl (7.5-11.1); MONO % 6.4 % (3.8-10.2); NEUT % 87.6 % (42.8-82.8); PLATELET COUNT 295 K/MM3 (134-434); RBC 3.81 M/mm3 (3.60-5.2); RDW 16.6 % (11.6-15.6); WHITE BLOOD COUNT 11.2 K/mm3 (4.0-10.0)
[2019-11-21 12:07] LABS: ALBUMIN 3.1 g/dl (3.4-5.0); BILIRUBIN,TOTAL 0.5 mg/dL (0.2-1); BLOOD UREA NITROGEN 64.2 mg/dL (7-18); CALCIUM 9.7 mg/dL (8.5-10.1); CREATININE 1.4 mg/dL (0.55-1.3); MAGNESIUM 2.5 mg/dL (1.8-2.4); POTASSIUM 4.5 mmol/L (3.5-5.1)
--- NOTE | 2019-11-21 12:11 | PN ---
Progress Note, Physician History of Present Illness: still with resp distress but better than yesterdaay on face mask still lethargic - Current Medication List Current Medications: Active Medications Acetaminophen (Tylenol -) 650 mg PO Q6H PRN PRN Reason: PAIN LEVEL 6-10 Last Admin: 11/18/19 18:36 Dose: 650 mg Documented by: Albuterol/Ipratropium (Duoneb -) 1 amp NEB RQID PRN PRN Reason: SHORTNESS OF BREATH Last Admin: 11/20/19 20:30 Dose: 1 amp Documented by: Amlodipine Besylate (Norvasc -) 10 mg PO DAILY [facility] Last Admin: 11/21/19 09:30 Dose: 10 mg Documented by: Ferrous Sulfate (Feosol -) 325 mg PO DAILY [facility] Last Admin: 11/21/19 09:30 Dose: 325 mg Documented by: Furosemide (Lasix Injection -) 60 mg IVPUSH BID@0600,1400 [facility] Last Admin: 11/21/19 06:12 Dose: 60 mg Documented by: Ceftriaxone Sodium 1 gm/ (Dextrose) 50 mls @ 200 mls/hr IVPB DAILY [facility]; Protocol Last Admin: 11/21/19 09:29 Dose: 200 mls/hr Documented by: Insulin Aspart (Novolog Vial Sliding Scale -) 1 vial SQ ACHS [facility]; Protocol Last Admin: 11/21/19 11:08 Dose: 4 units Documented by: Lidocaine (Lidoderm Patch -) 1 patch TP DAILY [facility] Last Admin: 11/21/19 09:44 Dose: 1 patch Documented by: Lisinopril (Prinivil) 10 mg PO DAILY [facility] Last Admin: 11/21/19 09:31 Dose: 10 mg Documented by: Lorazepam (Ativan Injection -) 0.5 mg IVPUSH BID PRN PRN Reason: ANXIETY Metoprolol Tartrate (Lopressor Injection -) 5 mg IVPUSH Q4H PRN PRN Reason: TACHYCARDIA Miscellaneous (Lidoderm Patch Removal) 1 each MC DAILY@2200 [facility] Last Admin: 11/20/19 21:43 Dose: Not Given Documented by: Morphine Sulfate (Morphine Sulfate) 0.5 mg IVPUSH Q8H PRN PRN Reason: PAIN LEVEL 7 - 10 Nebivolol (Bystolic -) 5 mg PO DAILY [facility] Last Admin: 11/21/19 09:30 Dose: 5 mg Documented by: Nystatin (Nystop Powder -) 1 applic TP DAILY [facility] Last Admin: 11/21/19 09:30 Dose: 1 applic Documented by: Pantoprazole Sodium (Protonix -) 40 mg PO DAILY [facility] Last Admin: 11/21/19 09:31 Dose: 40 mg Documented by: Sertraline HCl (Zoloft -) 50 mg PO DAILY [facility] Last Admin: 11/21/19 09:31 Dose: 50 mg Documented by: Spironolactone (Aldactone -) 25 mg PO DAILY [facility] Last Admin: 11/21/19 09:30 Dose: 25 mg Documented by: - Objective Vital Signs: Vital Signs Temperature 98.0 F 11/21/19 09:01 Pulse Rate 82 11/21/19 09:01 Respiratory Rate 20 11/21/19 09:01 Blood Pressure 146/60 11/21/19 09:01 O2 Sat by Pulse Oximetry (%) 93 L 11/21/19 05:05 Constitutional: Yes: Calm Cardiovascular: Yes: S1, S2 Respiratory: Yes: Poor Air Entry, Other (on fce mask) Gastrointestinal: Yes: Normal Bowel Sounds, Soft Musculoskeletal: Yes: WNL Extremities: Yes: WNL Neurological: Yes: Alert, Oriented Psychiatric: Yes: Alert, Oriented Labs: CBC, BMP 11/21/19 10:50 11/21/19 10:50 INR, PTT INR 1.69 (0.83-1.09) H 11/16/19 12:00 Assessment/Plan Problem List - Problems (1) AMS (altered mental status) Code(s): R41.82 - ALTERED MENTAL STATUS, UNSPECIFIED Qualifiers: Altered mental status type: disorientation Qualified Code(s): R41.0 - Disorientation, unspecified (2) CHF exacerbation Code(s): I50.9 - HEART FAILURE, UNSPECIFIED Qualifiers: Heart failure type: unspecified Qualified Code(s): I50.9 - Heart failure, unspecified (3) Aortic stenosis, severe Code(s): I35.0 - NONRHEUMATIC AORTIC (VALVE) STENOSIS (4) CHF exacerbation Code(s): I50.9 - HEART FAILURE, UNSPECIFIED Qualifiers: Heart failure type: diastolic Qualified Code(s): I50.33 - Acute on chronic diastolic (congestive) heart failure (5) Anemia Code(s): D64.9 - ANEMIA, UNSPECIFIED Qualifiers: Anemia type: unspecified type Qualified Code(s): D64.9 - Anemia, unspecified (6) COPD (chronic obstructive pulmonary disease) Code(s): J44.9 - CHRONIC OBSTRUCTIVE PULMONARY DISEASE, UNSPECIFIED Qualifiers: COPD type: unspecified COPD Qualified Code(s): J44.9 - Chronic obstructive pulmonary disease, unspecified (7) Diabetes mellitus Code(s): E11.9 - TYPE 2 DIABETES MELLITUS WITHOUT COMPLICATIONS Qualifiers: Diabetes mellitus type: type 2 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 use: without nursing home use Diabetes mellitus complication status: without complication Qualified Code(s): E11.9 - Type 2 diabetes mellitus without complications (8) HTN (hypertension) Code(s): I10 - ESSENTIAL (PRIMARY) HYPERTENSION Qualifiers: Hypertension type: essential hypertension Qualified Code(s): I10 - Essential (primary) hypertension (9) Mitral valve regurgitation Code(s): I34.0 - NONRHEUMATIC MITRAL (VALVE) INSUFFICIENCY Qualifiers: Cardiac valve disease etiology: nonrheumatic Qualified Code(s): I34.0 - Nonrheumatic mitral (valve) insufficiency (10) Chronic kidney disease (CKD) Code(s): N18.9 - CHRONIC KIDNEY DISEASE, UNSPECIFIED Qualifiers: Chronic kidney disease stage: stage 2 (mild) Qualified Code(s): N18.2 - Chronic kidney disease, stage 2 (mild) (11) Epistaxis Code(s): R04.0 - EPISTAXIS 12 uti plan continue abx resp treatment pul on board rest as per the team resp support will deescalte tomorrow
--- NOTE | 2019-11-21 14:06 | PN ---
Progress Note, Physician Chief Complaint: Pt A&Ox3; SOB with minimal exertion. History of Present Illness: 83 year old female with a significant past medical history of Afib (on eliquis), HFpEF, T2DM, pulm HTN, COPD on 3L NC, asthma, anxiety, GI bleed who presents to the ED with progressively worsening altered mental status with associated two hours of epistaxis. Patient is a poor historian and can only recollect her daughter sending her in for epistaxis. As per daughter, the patient was complaining of a headache at the time of her epistaxis. Per daughter, the patient has not had PCP follow-up in > 2 months. While in the ED, the patient's epistaxis has since resolved. - Current Medication List Current Medications: Active Medications Acetaminophen (Tylenol -) 650 mg PO Q6H PRN PRN Reason: PAIN LEVEL 6-10 Last Admin: 11/18/19 18:36 Dose: 650 mg Documented by: Albuterol/Ipratropium (Duoneb -) 1 amp NEB RQID PRN PRN Reason: SHORTNESS OF BREATH Last Admin: 11/20/19 20:30 Dose: 1 amp Documented by: Amlodipine Besylate (Norvasc -) 10 mg PO DAILY [facility] Last Admin: 11/21/19 09:30 Dose: 10 mg Documented by: Ferrous Sulfate (Feosol -) 325 mg PO DAILY [facility] Last Admin: 11/21/19 09:30 Dose: 325 mg Documented by: Furosemide (Lasix Injection -) 60 mg IVPUSH BID@0600,1400 [facility] Last Admin: 11/21/19 13:39 Dose: 60 mg Documented by: Ceftriaxone Sodium 1 gm/ (Dextrose) 50 mls @ 200 mls/hr IVPB DAILY [facility]; Protocol Last Admin: 11/21/19 09:29 Dose: 200 mls/hr Documented by: Insulin Aspart (Novolog Vial Sliding Scale -) 1 vial SQ ACHS [facility]; Protocol Last Admin: 11/21/19 11:08 Dose: 4 units Documented by: Lidocaine (Lidoderm Patch -) 1 patch TP DAILY [facility] Last Admin: 11/21/19 09:44 Dose: 1 patch Documented by: Lisinopril (Prinivil) 10 mg PO DAILY [facility] Last Admin: 11/21/19 09:31 Dose: 10 mg Documented by: Lorazepam (Ativan Injection -) 0.5 mg IVPUSH BID PRN PRN Reason: ANXIETY Metoprolol Tartrate (Lopressor Injection -) 5 mg IVPUSH Q4H PRN PRN Reason: TACHYCARDIA Miscellaneous (Lidoderm Patch Removal) 1 each MC DAILY@2200 [facility] Last Admin: 11/20/19 21:43 Dose: Not Given Documented by: Morphine Sulfate (Morphine Sulfate) 0.5 mg IVPUSH Q8H PRN PRN Reason: PAIN LEVEL 7 - 10 Nebivolol (Bystolic -) 5 mg PO DAILY [facility] Last Admin: 11/21/19 09:30 Dose: 5 mg Documented by: Nystatin (Nystop Powder -) 1 applic TP DAILY [facility] Last Admin: 11/21/19 09:30 Dose: 1 applic Documented by: Pantoprazole Sodium (Protonix -) 40 mg PO DAILY [facility] Last Admin: 11/21/19 09:31 Dose: 40 mg Documented by: Sertraline HCl (Zoloft -) 50 mg PO DAILY [facility] Last Admin: 11/21/19 09:31 Dose: 50 mg Documented by: Spironolactone (Aldactone -) 25 mg PO DAILY [facility] Last Admin: 11/21/19 09:30 Dose: 25 mg Documented by: - Objective Vital Signs: Vital Signs Temperature 98.8 F 11/21/19 13:45 Pulse Rate 83 11/21/19 13:45 Respiratory Rate 20 11/21/19 13:45 Blood Pressure 160/80 11/21/19 13:45 O2 Sat by Pulse Oximetry (%) 88 L 11/21/19 09:00 Labs: CBC, BMP 11/21/19 10:50 11/21/19 10:50 INR, PTT INR 1.69 (0.83-1.09) H 11/16/19 12:00 Assessment/Plan Respiratory failure/LLL pneumonia 1. Acute on chronic LV diastolic failure, class II NYHA classification LV failure improving 2. Epistaxis since resolved 3. Toxic metabolic encephelopathy resolving 4. Mod-severe , pulm HTN 5. Asthma, Chronic obstructive airway disease 6. Persistent atrial fibrillation with [id number] score of 7 on chronic A/C with DOAC/Eliquis 7. Diabetes mellitus 8. HTN 9. SARA/CKD 10. Anemia with h/o GI bleed PLAN: -Worsening respiratory 1. Cont IV diuresis and Aldactone 25 qd with close monitoring of diuretic response, renal function and electrolytes 2. Continue bystolic,, Amlodipine 10 mg QD, Lipitor 40 mg QHS, Prinivil 10 mg QD with caution once renal function stabilizes 3.Off AC due to nasal bleeding; resume when feasible 4.underlying infectious/pulmonary as per primary team;
--- NOTE | 2019-11-21 14:26 | PN ---
Physical Exam: SUBJECTIVE: Patient seen and examined. lethargic but arousable. tells me she is having generalized pain. OBJECTIVE: Patient is a 83 year old Female with known history of atrial fibrillation (on Eliquis), CHF, pullmonary hypertension, diabetes 2, COPD on snf oxygen therapy (3 li NC) anxiety, GI bleed who was sent to the ED by family for confusion, altered mentation and epistaxis episode. Patient unable to give a good history. Since arriving in the ED, epistaxis has since resolved. On admission, patient noted to have a LLL pnemonia and CHF exacerbation (bnp 8K). Patient was also reported to have AMS, but has since resolved. Head Ct negative. Also noted to have a UTI, UC with + ecoli (on ceftriaxone). ------- On 11/20/2019, patient noted to have tachypnea with accessory muscle use. placed on NRB. abg with elevated CO2, placed on bipap. patient continues to be lethargic. patient is now a dnr/dni. palliative care following. chest xray 11/20/2019: interval increase interstitial and airspace opacities/infiltrates bilaterally as well as atelectasis/consolidation of right lung base. Period Temp Pulse Resp BP Sys/Mo Pulse Ox Last 24 Hr 97.5 F-98.8 F 66-83 20-20 134-166/59-89 88-94 GENERAL: lethargic, arousable to name and tactile stimuli. tells me she is having pain. accessory muscle use on a venti mask. will give one dose of morphine to ease work of breathing. HEAD: Normal with no signs of trauma. EYES: PERRL, extraocular movements intact, sclera anicteric, conjunctiva clear. No ptosis. ENT: Ears normal, nares patent, oropharynx clear without exudates, moist mucous membranes. NECK: Trachea midline, full range of motion, supple. LUNGS: crackles throughout lung chin - left lung with less crackles compared to yesterday. HEART: irregular 70s-80s ABDOMEN: Soft, nontender, nondistended, normoactive bowel sounds, no guarding, no rebound EXTREMITIES: right leg contracted s/p hip surgery NEUROLOGICAL: lethargic Laboratory Results - last 24 hr 11/20/19 11/21/19 11/21/19 14:48 06:11 10:49 WBC RBC Hgb Hct MCV MCH MCHC RDW Plt Count MPV Absolute Neuts (auto) Neutrophils % Lymphocytes % Monocytes % Eosinophils % Basophils % Nucleated RBC % Anticoagulation Therapy No Result Required. Puncture Site Right radial Patient Temperature No Result Required. ABG pH 7.362 ABG pCO2 69.80 H ABG pO2 52.7 L ABG HCO3 38.7 H ABG O2 Sat (Measured) 84.6 L ABG O2 Content No Result Required. ABG Base Excess 11.1 H Dmitri Test No Result Required. Patient On Oxygen Yes O2 Delivery Device Bipap Oxygen Flow Rate [address] Vent Rate 20 Mechanical Rate No Result Required. PEEP 6.0 Pressure Support Vent 16 Sodium Potassium Chloride Carbon Dioxide Anion Gap BUN Creatinine Est GFR (CKD-EPI)AfAm Est GFR (CKD-EPI)NonAf POC Glucometer 150 226 Random Glucose Calcium Magnesium Total Bilirubin AST ALT Alkaline Phosphatase Total Protein Albumin 11/21/19 11/21/19 10:50 10:50 WBC 11.2 H RBC 3.81 Hgb 10.1 L Hct 32.5 MCV 85.2 MCH 26.4 MCHC 31.0 L RDW 16.6 H Plt Count 295 MPV 9.5 Absolute Neuts (auto) 9.9 H Neutrophils % 87.6 H Lymphocytes % 5.2 L D Monocytes % 6.4 Eosinophils % 0.2 D Basophils % 0.6 Nucleated RBC % 0 Anticoagulation Therapy Puncture Site Patient Temperature ABG pH ABG pCO2 ABG pO2 ABG HCO3 ABG O2 Sat (Measured) ABG O2 Content ABG Base Excess Dmitri Test Patient On Oxygen O2 Delivery Device Oxygen Flow Rate Vent Mode Vent Rate Mechanical Rate PEEP Pressure Support Vent Sodium 137 Potassium 4.5 Chloride 90 L Carbon Dioxide 38 H Anion Gap 8 BUN 64.2 H Creatinine 1.4 H Est GFR (CKD-EPI)AfAm 39.89 Est GFR (CKD-EPI)NonAf 34.42 POC Glucometer Random Glucose 212 H Calcium 9.7 Magnesium 2.5 H Total Bilirubin 0.5 AST 18 ALT 15 Alkaline Phosphatase 211 H Total Protein 7.0 Albumin 3.1 L Active Medications Generic Name Dose Route Start Last Admin Trade Name Freq PRN Reason Stop Dose Admin Acetaminophen 650 mg 11/18/19 18:21 11/18/19 18:36 Tylenol - PO 650 mg Q6H PRN Administration PAIN LEVEL 6-10 Albuterol/Ipratropium 1 amp 11/17/19 21:02 11/20/19 20:30 Duoneb - NEB 1 amp RQID PRN Administration SHORTNESS OF BREATH Amlodipine Besylate 10 mg 11/17/19 10:00 11/21/19 09:30 Norvasc - PO 10 mg DAILY [facility] Administration Ferrous Sulfate 325 mg 11/17/19 10:00 11/21/19 09:30 Feosol - PO 325 mg DAILY [facility] Administration Furosemide 60 mg 11/20/19 06:00 11/21/19 13:39 Lasix Injection - IVPUSH 60 mg BID@0600,1400 [facility] Administration Ceftriaxone Sodium 1 gm/ 50 mls @ 200 mls/hr 11/17/19 12:45 11/21/19 09:29 Dextrose IVPB 200 mls/hr DAILY [facility] Administration Protocol Insulin Aspart 1 vial 11/17/19 22:00 11/21/19 11:08 Novolog Vial Sliding Scale - SQ 4 units ACHS [facility] Administration Protocol Lidocaine 1 patch 11/18/19 18:30 11/21/19 09:44 Lidoderm Patch - TP 1 patch DAILY [facility] Administration Lisinopril 10 mg 11/17/19 10:00 11/21/19 09:31 Prinivil PO 10 mg DAILY [facility] Administration Lorazepam 0.5 mg 11/21/19 11:12 Ativan Injection - IVPUSH BID PRN ANXIETY Metoprolol Tartrate 5 mg 11/20/19 14:28 Lopressor Injection - IVPUSH Q4H PRN TACHYCARDIA Miscellaneous 1 each 11/18/19 22:00 11/20/19 21:43 Lidoderm Patch Removal MC Not Given DAILY@2200 [facility] Morphine Sulfate 0.5 mg 11/21/19 11:12 Morphine Sulfate IVPUSH Q8H PRN PAIN LEVEL 7 - 10 Nebivolol 5 mg 11/17/19 10:00 11/21/19 09:30 Bystolic - PO 5 mg DAILY [facility] Administration Nystatin 1 applic 11/17/19 21:15 11/21/19 09:30 Nystop Powder - TP 1 applic DAILY [facility] Administration Pantoprazole Sodium 40 mg 11/17/19 10:00 11/21/19 09:31 Protonix - PO 40 mg DAILY [facility] Administration Sertraline HCl 50 mg 11/17/19 10:00 11/21/19 09:31 Zoloft - PO 50 mg DAILY [facility] Administration Spironolactone 25 mg 11/18/19 15:00 11/21/19 09:30 Aldactone - PO 25 mg DAILY [facility] Administration ASSESSMENT/PLAN: Problem List - Problems (1) Respiratory failure with hypercapnia Assessment/Plan: placed on bipap patient is a dnr/dni ABG noted Code(s): J96.92 - RESPIRATORY FAILURE, UNSPECIFIED WITH HYPERCAPNIA (2) Acute on chronic diastolic (congestive) heart failure Assessment/Plan: elevated bnp 8K on admission, repeat bnp 13k now with worsening shortness of breath. now on bipap for respiratory failure Code(s): I50.33 - ACUTE ON CHRONIC DIASTOLIC (CONGESTIVE) HEART FAILURE (3) Acute metabolic encephalopathy Assessment/Plan: patient lethargic today but able to express her needs. ate apx 25% of breakfast. she is a high aspiration risk. 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 LLL pneumonia. on ceftriaxone Code(s): J18.9 - PNEUMONIA, UNSPECIFIED ORGANISM (7) UTI (urinary tract infection) Assessment/Plan: on ceftriaxone for urine ecoli Code(s): N39.0 - URINARY TRACT INFECTION, SITE NOT SPECIFIED (8) Hypertension Assessment/Plan: unable to tolerate PO, on lopressor 5mg iv prn Code(s): I10 - ESSENTIAL (PRIMARY) HYPERTENSION (9) DNR (do not resuscitate) Code(s): Z66 - DO NOT RESUSCITATE (10) DNI (do not intubate) Code(s): Z78.9 - OTHER SPECIFIED HEALTH STATUS (11) DVT prophylaxis Assessment/Plan: no a/c secondary to epistaxis. SCDs ordered Code(s): Z29.9 - ENCOUNTER FOR PROPHYLACTIC MEASURES, UNSPECIFIED Visit type - Emergency Visit Emergency Visit: Yes ED Registration Date: 11/16/19 Care time: The patient presented to the Emergency Department on the above date and was hospitalized for further evaluation of their emergent condition. - New Patient This patient is new to me today: No - Critical Care Critical Care patient: No - Discharge Referral Referred to [facility] No
[2019-11-21] MEDS: ALBUTEROL SO4 2.5/IPRATROPIUM 0.5 INH SOL 3 ML VIAL.NEB. NEB PRN (20:07)
[2019-11-21] MEDS: LIDOCAINE PATCH REMOVAL MC SCH (21:48)
[2019-11-22] MEDS: INSULIN SLIDING SCALE (NOVOLOG) 1 VIAL SQ SCH ×4 (06:03→21:22)
[2019-11-22] MEDS: FUROSEMIDE 40 MG/4 ML INJECTABLE VIAL IVPUSH SCH ×2 (06:03→14:27)
[2019-11-22] MEDS ORDERED: cefTRIAXone SODIUM 1 GM VIAL ONE (08:19)
[2019-11-22] MEDS ORDERED: DEXTROSE 5%-WATER - 50 ML IVPB ONE (08:19)
[2019-11-22] MEDS: amLODIPine BESYLATE 10 MG TABLET (FP) PO SCH (09:34)
[2019-11-22] MEDS: FERROUS SO4 325 MG TABLET (FP) PO SCH (09:34)
[2019-11-22] MEDS: NEBIVOLOL 5 MG TABLET (FP) PO SCH (09:34)
[2019-11-22] MEDS: LIDOCAINE 5% TOPICAL PATCH TP SCH (09:34)
[2019-11-22] MEDS: NYSTATIN POWDER 100,000 UNITS/GM - 15 GM TOPICAL POWDER TP SCH (09:34)
[2019-11-22] MEDS: SPIRONOLACTONE 25 MG TABLET PO SCH (09:34)
[2019-11-22] MEDS: CEFTRIAXONE 1 GM in DEXTROSE 5%-WATER - 50 ML IVPB SCH (09:35)
[2019-11-22] MEDS: SERTRALINE HCL 50 MG TABLET (FP) PO SCH (09:35)
[2019-11-22] MEDS: PANTOPRAZOLE 40 MG TABLET PO SCH (09:35)
[2019-11-22] MEDS: LISINOPRIL 10 MG TABLET (FP) PO SCH (09:35)
[2019-11-22] MEDS: MORPHINE SULFATE 2 MG/ML VIAL IVPUSH PRN (10:15)
--- NOTE | 2019-11-22 10:39 | PN ---
Progress Note (short form) - Note Progress Note: PULMONARY DNI Dyspnea increased today with increasing o2 requirement AWAKE/ALERT VSS/AFEBRILE Constitutional: Yes: NAD Eyes: Yes: Conjunctiva Clear HENT: Yes: Atraumatic, Normocephalic Neck: Yes: Supple, Trachea Midline Cardiovascular: Yes: S1, S2 Respiratory: Yes: Poor Air Entry/diminished breath sounds left base Gastrointestinal: Yes: Normal Bowel Sounds, Soft Musculoskeletal: Yes: WNL Extremities: Yes: WNL Neurological: Yes: Alert, Oriented Psychiatric: Yes: Alert, Oriented Labs: noted CXR: CARDIOMEGALY/LEFT PL EFF/CALCIFIC AORTIC KNOB IMP DYSPNEA ACUTE ON CHRONIC CHF EPISTAXIS ALTERED MENTAL STATUS SEVERE ASTHMA/ COPD ON O2 PULMONARY HTN DM AFIB HTN CKD ANEMIA UTI E.COLI PLAN O2 LASIX TO BE INCREASED TO 80MG BID/SPIRONOLACTONE CONTINUES MONITOR ELECTROLYTES/RENAL FUNCTION INHALED BRONCHODILATORS INPUT/OUTPUT//PATIENT NOW HAS DALAL ABX FOR UTI CONDITION GUARDED FAMILY AWARE Prerna AYERS MD
[2019-11-22 10:49] LABS: BASO % 0.7 % (0-2.0); EOS % 0.6 % (0-4.5); HEMOGLOBIN 10.3 GM/dL (10.7-15.3); LYMPH % 5.7 % (8-40); MCH 26.7 pg (25.7-33.7); MCHC 31.3 g/dl (32.0-36.0); MEAN CELL VOLUME 85.5 fl (80-96); MEAN PLT VOLUME 9.4 fl (7.5-11.1); MONO % 7.9 % (3.8-10.2); NEUT % 85.1 % (42.8-82.8); PLATELET COUNT 333 K/MM3 (134-434); RBC 3.86 M/mm3 (3.60-5.2); RDW 16.8 % (11.6-15.6); WHITE BLOOD COUNT 10.7 K/mm3 (4.0-10.0)
[2019-11-22 11:49] LABS: ALBUMIN 3.1 g/dl (3.4-5.0); BLOOD UREA NITROGEN 71.8 mg/dL (7-18); CALCIUM 9.3 mg/dL (8.5-10.1); CREATININE 1.4 mg/dL (0.55-1.3)
[2019-11-22 11:52] LABS: BILIRUBIN,TOTAL 0.5 mg/dL (0.2-1)
--- NOTE | 2019-11-22 13:40 | PN ---
Physical Exam: SUBJECTIVE: Patient seen and examined. OBJECTIVE: Patient is a 83 year old Female with known history of atrial fibrillation (on Eliquis), CHF, pullmonary hypertension, diabetes 2, COPD on [facility] oxygen therapy (3 li NC) anxiety, GI bleed who was sent to the ED by family for confusion, altered mentation and epistaxis episode. Patient unable to give a good history. Since arriving in the ED, epistaxis has since resolved. On admission, patient noted to have a LLL pnemonia and CHF exacerbation (bnp 8K). Patient was also reported to have AMS, but has since resolved. Head Ct negative. Also noted to have a UTI, UC with + ecoli (on ceftriaxone). ------- On 11/20/2019, patient noted to have tachypnea with accessory muscle use. placed on NRB. abg with elevated CO2, placed on bipap. patient continues to be lethargic. patient is now a dnr/dni. palliative care following. chest xray 11/20/2019: interval increase interstitial and airspace opacities/infiltrates bilaterally as well as atelectasis/consolidation of right lung base. Period Temp Pulse Resp BP Sys/Mo Pulse Ox Last 24 Hr 98.1 F-98.8 F 64-83 20-22 129-160/54-86 90-96 GENERAL: lethargic, arousable to name and tactile stimuli. accessory muscle use on nrb HEAD: Normal with no signs of trauma. EYES: PERRL, extraocular movements intact, sclera anicteric, conjunctiva clear. No ptosis. ENT: Ears normal, nares patent, oropharynx clear without exudates, moist mucous membranes. NECK: Trachea midline, full range of motion, supple. LUNGS: crackles at the bases HEART: irregular 70s-80s ABDOMEN: Soft, nontender, nondistended, normoactive bowel sounds, no guarding, no rebound EXTREMITIES: right leg contracted s/p hip surgery NEUROLOGICAL: lethargic Laboratory Results - last 24 hr 11/21/19 11/22/19 11/22/19 17:24 05:56 10:13 WBC 10.7 H RBC 3.86 Hgb 10.3 L Hct 33.0 MCV 85.5 MCH 26.7 MCHC 31.3 L RDW 16.8 H Plt Count 333 MPV 9.4 Absolute Neuts (auto) 9.1 H Neutrophils % 85.1 H Lymphocytes % 5.7 L Monocytes % 7.9 Eosinophils % 0.6 D Basophils % 0.7 Nucleated RBC % 0 Sodium Potassium Chloride Carbon Dioxide Anion Gap BUN Creatinine Est GFR (CKD-EPI)AfAm Est GFR (CKD-EPI)NonAf POC Glucometer 169 135 Random Glucose Calcium Magnesium Total Bilirubin AST ALT Alkaline Phosphatase Total Protein Albumin 11/22/19 11/22/19 11/22/19 10:13 10:13 11:35 WBC RBC Hgb Hct MCV MCH MCHC RDW Plt Count MPV Absolute Neuts (auto) Neutrophils % Lymphocytes % Monocytes % Eosinophils % Basophils % Nucleated RBC % Sodium 137 Potassium 4.0 Chloride 88 L Carbon Dioxide 42 H Anion Gap 6 L BUN 71.8 H Creatinine 1.4 H Est GFR (CKD-EPI)AfAm 39.89 Est GFR (CKD-EPI)NonAf 34.42 POC Glucometer 194 Random Glucose 192 H Calcium 9.3 Magnesium 2.3 Total Bilirubin 0.5 AST 19 ALT 15 Alkaline Phosphatase 210 H Total Protein 7.0 Albumin 3.1 L Active Medications Generic Name Dose Route Start Last Admin Trade Name Freq PRN Reason Stop Dose Admin Acetaminophen 650 mg 11/18/19 18:21 11/18/19 18:36 Tylenol - PO 650 mg Q6H PRN Administration PAIN LEVEL 6-10 Albuterol/Ipratropium 1 amp 11/17/19 21:02 11/21/19 20:07 Duoneb - NEB 1 amp RQID PRN Administration SHORTNESS OF BREATH Amlodipine Besylate 10 mg 11/17/19 10:00 11/22/19 09:34 Norvasc - PO 10 mg DAILY PK Administration Ferrous Sulfate 325 mg 11/17/19 10:00 11/22/19 09:34 Feosol - PO 325 mg DAILY PK Administration Furosemide 80 mg 11/22/19 10:39 Lasix Injection - IVPUSH BID@0600,1400 PK Ceftriaxone Sodium 1 gm/ 50 mls @ 200 mls/hr 11/17/19 12:45 11/22/19 09:35 Dextrose IVPB 200 mls/hr DAILY PK Administration Protocol Insulin Aspart 1 vial 11/17/19 22:00 11/22/19 11:42 Novolog Vial Sliding Scale - SQ 2 units ACHS PK Administration Protocol Lidocaine 1 patch 11/18/19 18:30 11/22/19 09:34 Lidoderm Patch - TP 1 patch DAILY PK Administration Lisinopril 10 mg 11/17/19 10:00 11/22/19 09:35 Prinivil PO 10 mg DAILY PK Administration Lorazepam 0.5 mg 11/21/19 11:12 Ativan Injection - IVPUSH BID PRN ANXIETY Metoprolol Tartrate 5 mg 11/20/19 14:28 Lopressor Injection - IVPUSH Q4H PRN TACHYCARDIA Miscellaneous 1 each 11/18/19 22:00 11/21/19 21:48 Lidoderm Patch Removal MC Not Given DAILY@2200 [facility] Morphine Sulfate 0.5 mg 11/21/19 11:12 11/22/19 10:15 Morphine Sulfate IVPUSH 0.5 mg Q8H PRN Administration PAIN LEVEL 7 - 10 Nebivolol 5 mg 11/17/19 10:00 11/22/19 09:34 Bystolic - PO 5 mg DAILY PK Administration Nystatin 1 applic 11/17/19 21:15 11/22/19 09:34 Nystop Powder - TP 1 applic DAILY PK Administration Pantoprazole Sodium 40 mg 11/17/19 10:00 11/22/19 09:35 Protonix - PO 40 mg DAILY PK Administration Sertraline HCl 50 mg 11/17/19 10:00 11/22/19 09:35 Zoloft - PO 50 mg DAILY PK Administration Spironolactone 25 mg 11/18/19 15:00 11/22/19 09:34 Aldactone - PO 25 mg DAILY PK Administration ASSESSMENT/PLAN: Problem List - Problems (1) Respiratory failure with hypercapnia Assessment/Plan: placed on bipap patient is a dnr/dni ABG noted Code(s): J96.92 - RESPIRATORY FAILURE, UNSPECIFIED WITH HYPERCAPNIA (2) Acute on chronic diastolic (congestive) heart failure Assessment/Plan: elevated bnp 8K on admission, repeat bnp 13k now with worsening shortness of breath. now on bipap/nrb for respiratory failure lasix 80 bid Code(s): I50.33 - ACUTE ON CHRONIC DIASTOLIC (CONGESTIVE) HEART FAILURE (3) Acute metabolic encephalopathy Assessment/Plan: patient lethargic today but able to express her needs. ate apx 25% of breakfast. she is a high aspiration risk. monitor for safety Code(s): G93.41 - METABOLIC ENCEPHALOPATHY (4) Diabetes mellitus Assessment/Plan: novolog ss based on BGMs Code(s): E11.9 - TYPE 2 DIABETES MELLITUS WITHOUT COMPLICATIONS Qualifiers: Diabetes mellitus type: type 2 Diabetes mellitus terminal worker insulin use: without terminal worker use Diabetes mellitus complication status: without complication Qualified Code(s): E11.9 - Type 2 diabetes mellitus without complications (5) Dyspnea Assessment/Plan: on bipap, morphine 0.4mg prn Code(s): R06.00 - DYSPNEA, UNSPECIFIED Qualifiers: Dyspnea type: dyspnea on exertion Qualified Code(s): R06.00 - Dyspnea, unspecified (6) Pneumonia Assessment/Plan: as seen on chest xray. LLL pneumonia. on ceftriaxone Code(s): J18.9 - PNEUMONIA, UNSPECIFIED ORGANISM (7) UTI (urinary tract infection) Assessment/Plan: on ceftriaxone for urine ecoli Code(s): N39.0 - URINARY TRACT INFECTION, SITE NOT SPECIFIED (8) Hypertension Assessment/Plan: unable to tolerate PO, on lopressor 5mg iv prn Code(s): I10 - ESSENTIAL (PRIMARY) HYPERTENSION (9) DNR (do not resuscitate) Code(s): Z66 - DO NOT RESUSCITATE (10) DNI (do not intubate) Code(s): Z78.9 - OTHER SPECIFIED HEALTH STATUS (11) DVT prophylaxis Assessment/Plan: no a/c secondary to epistaxis. SCDs ordered Code(s): Z29.9 - ENCOUNTER FOR PROPHYLACTIC MEASURES, UNSPECIFIED Visit type - Emergency Visit Emergency Visit: Yes ED Registration Date: 11/16/19 Care time: The patient presented to the Emergency Department on the above date and was hospitalized for further evaluation of their emergent condition. - New Patient This patient is new to me today: No - Critical Care Critical Care patient: No - Discharge Referral Referred to [facility] No
--- NOTE | 2019-11-22 13:43 | PN ---
Progress Note, Physician History of Present Illness: much more awake and alert says breathing better now on face mask - Current Medication List Current Medications: Active Medications Acetaminophen (Tylenol -) 650 mg PO Q6H PRN PRN Reason: PAIN LEVEL 6-10 Last Admin: 11/18/19 18:36 Dose: 650 mg Documented by: Albuterol/Ipratropium (Duoneb -) 1 amp NEB RQID PRN PRN Reason: SHORTNESS OF BREATH Last Admin: 11/21/19 20:07 Dose: 1 amp Documented by: Amlodipine Besylate (Norvasc -) 10 mg PO DAILY [facility] Last Admin: 11/22/19 09:34 Dose: 10 mg Documented by: Ferrous Sulfate (Feosol -) 325 mg PO DAILY [facility] Last Admin: 11/22/19 09:34 Dose: 325 mg Documented by: Furosemide (Lasix Injection -) 80 mg IVPUSH BID@0600,1400 [facility] Ceftriaxone Sodium 1 gm/ (Dextrose) 50 mls @ 200 mls/hr IVPB DAILY [facility]; Protocol Last Admin: 11/22/19 09:35 Dose: 200 mls/hr Documented by: Insulin Aspart (Novolog Vial Sliding Scale -) 1 vial SQ ACHS [facility]; Protocol Last Admin: 11/22/19 11:42 Dose: 2 units Documented by: Lidocaine (Lidoderm Patch -) 1 patch TP DAILY [facility] Last Admin: 11/22/19 09:34 Dose: 1 patch Documented by: Lisinopril (Prinivil) 10 mg PO DAILY [facility] Last Admin: 11/22/19 09:35 Dose: 10 mg Documented by: Lorazepam (Ativan Injection -) 0.5 mg IVPUSH BID PRN PRN Reason: ANXIETY Metoprolol Tartrate (Lopressor Injection -) 5 mg IVPUSH Q4H PRN PRN Reason: TACHYCARDIA Miscellaneous (Lidoderm Patch Removal) 1 each MC DAILY@2200 [facility] Last Admin: 11/21/19 21:48 Dose: Not Given Documented by: Morphine Sulfate (Morphine Sulfate) 0.5 mg IVPUSH Q8H PRN PRN Reason: PAIN LEVEL 7 - 10 Last Admin: 11/22/19 10:15 Dose: 0.5 mg Documented by: Nebivolol (Bystolic -) 5 mg PO DAILY [facility] Last Admin: 11/22/19 09:34 Dose: 5 mg Documented by: Nystatin (Nystop Powder -) 1 applic TP DAILY [facility] Last Admin: 11/22/19 09:34 Dose: 1 applic Documented by: Pantoprazole Sodium (Protonix -) 40 mg PO DAILY [facility] Last Admin: 11/22/19 09:35 Dose: 40 mg Documented by: Sertraline HCl (Zoloft -) 50 mg PO DAILY [facility] Last Admin: 11/22/19 09:35 Dose: 50 mg Documented by: Spironolactone (Aldactone -) 25 mg PO DAILY [facility] Last Admin: 11/22/19 09:34 Dose: 25 mg Documented by: - Objective Vital Signs: Vital Signs Temperature 98.8 F 11/22/19 08:00 Pulse Rate 77 11/22/19 08:00 Respiratory Rate 22 H 11/22/19 08:00 Blood Pressure 156/86 11/22/19 08:00 O2 Sat by Pulse Oximetry (%) 95 11/22/19 09:00 Constitutional: Yes: Calm, Mild Distress Cardiovascular: Yes: S1, S2 Respiratory: Yes: Regular, Poor Air Entry, Other (still with resp effort) Gastrointestinal: Yes: Normal Bowel Sounds, Soft Musculoskeletal: Yes: WNL Extremities: Yes: WNL Neurological: Yes: Alert, Oriented Psychiatric: Yes: Alert, Oriented Labs: CBC, BMP 11/22/19 10:13 11/22/19 10:13 INR, PTT INR 1.69 (0.83-1.09) H 11/16/19 12:00 Assessment/Plan Problem List - Problems (1) AMS (altered mental status) Code(s): R41.82 - ALTERED MENTAL STATUS, UNSPECIFIED Qualifiers: Altered mental status type: disorientation Qualified Code(s): R41.0 - Disorientation, unspecified (2) CHF exacerbation Code(s): I50.9 - HEART FAILURE, UNSPECIFIED Qualifiers: Heart failure type: unspecified Qualified Code(s): I50.9 - Heart failure, unspecified (3) Aortic stenosis, severe Code(s): I35.0 - NONRHEUMATIC AORTIC (VALVE) STENOSIS (4) CHF exacerbation Code(s): I50.9 - HEART FAILURE, UNSPECIFIED Qualifiers: Heart failure type: diastolic Qualified Code(s): I50.33 - Acute on chronic diastolic (congestive) heart failure (5) Anemia Code(s): D64.9 - ANEMIA, UNSPECIFIED Qualifiers: Anemia type: unspecified type Qualified Code(s): D64.9 - Anemia, unspecified (6) COPD (chronic obstructive pulmonary disease) Code(s): J44.9 - CHRONIC OBSTRUCTIVE PULMONARY DISEASE, UNSPECIFIED Qualifiers: COPD type: unspecified COPD Qualified Code(s): J44.9 - Chronic obstructive pulmonary disease, unspecified (7) Diabetes mellitus Code(s): E11.9 - TYPE 2 DIABETES MELLITUS WITHOUT COMPLICATIONS Qualifiers: Diabetes mellitus type: type 2 Diabetes mellitus detention insulin use: without ferry terminal agent use Diabetes mellitus complication status: without complication Qualified Code(s): E11.9 - Type 2 diabetes mellitus without complications (8) HTN (hypertension) Code(s): I10 - ESSENTIAL (PRIMARY) HYPERTENSION Qualifiers: Hypertension type: essential hypertension Qualified Code(s): I10 - Essential (primary) hypertension (9) Mitral valve regurgitation Code(s): I34.0 - NONRHEUMATIC MITRAL (VALVE) INSUFFICIENCY Qualifiers: Cardiac valve disease etiology: nonrheumatic Qualified Code(s): I34.0 - Nonrheumatic mitral (valve) insufficiency (10) Chronic kidney disease (CKD) Code(s): N18.9 - CHRONIC KIDNEY DISEASE, UNSPECIFIED Qualifiers: Chronic kidney disease stage: stage 2 (mild) Qualified Code(s): N18.2 - Chronic kidney disease, stage 2 (mild) (11) Epistaxis Code(s): R04.0 - EPISTAXIS 12 uti plan will stop abx resp treatment pul on board rest as per the team resp support
[2019-11-22] MEDS: LIDOCAINE PATCH REMOVAL MC SCH (21:15)
[2019-11-23] MEDS: INSULIN SLIDING SCALE (NOVOLOG) 1 VIAL SQ SCH ×4 (06:14→22:23)
[2019-11-23] MEDS: FUROSEMIDE 40 MG/4 ML INJECTABLE VIAL IVPUSH SCH ×4 (06:15→15:19)
[2019-11-23] MEDS: ALBUTEROL SO4 2.5/IPRATROPIUM 0.5 INH SOL 3 ML VIAL.NEB. NEB PRN (08:50)
[2019-11-23] MEDS: LIDOCAINE 5% TOPICAL PATCH TP SCH (09:18)
[2019-11-23] MEDS: MORPHINE SULFATE 2 MG/ML VIAL IVPUSH PRN (09:18)
--- NOTE | 2019-11-23 09:21 | PN ---
Progress Note, Physician History of Present Illness: Increasing O2 requirements, diuresis increased and placed on bipap, lethargic. - Current Medication List Current Medications: Active Medications Acetaminophen (Tylenol -) 650 mg PO Q6H PRN PRN Reason: PAIN LEVEL 6-10 Last Admin: 11/18/19 18:36 Dose: 650 mg Documented by: Albuterol/Ipratropium (Duoneb -) 1 amp NEB RQID PRN PRN Reason: SHORTNESS OF BREATH Last Admin: 11/21/19 20:07 Dose: 1 amp Documented by: Amlodipine Besylate (Norvasc -) 10 mg PO DAILY [facility] Last Admin: 11/22/19 09:34 Dose: 10 mg Documented by: Ferrous Sulfate (Feosol -) 325 mg PO DAILY [facility] Last Admin: 11/22/19 09:34 Dose: 325 mg Documented by: Furosemide (Lasix Injection -) 80 mg IVPUSH BID@0600,1400 [facility] Last Admin: 11/23/19 06:15 Dose: 80 mg Documented by: Insulin Aspart (Novolog Vial Sliding Scale -) 1 vial SQ [facility]; Protocol Last Admin: 11/23/19 06:14 Dose: 2 units Documented by: Lidocaine (Lidoderm Patch -) 1 patch TP DAILY [facility] Last Admin: 11/22/19 09:34 Dose: 1 patch Documented by: Lisinopril (Prinivil) 10 mg PO DAILY [facility] Last Admin: 11/22/19 09:35 Dose: 10 mg Documented by: Lorazepam (Ativan Injection -) 0.5 mg IVPUSH BID PRN PRN Reason: ANXIETY Metoprolol Tartrate (Lopressor Injection -) 5 mg IVPUSH Q4H PRN PRN Reason: TACHYCARDIA Miscellaneous (Lidoderm Patch Removal) 1 each MC DAILY@2200 [facility] Last Admin: 11/22/19 21:15 Dose: Not Given Documented by: Morphine Sulfate (Morphine Sulfate) 0.5 mg IVPUSH Q8H PRN PRN Reason: PAIN LEVEL 7 - 10 Last Admin: 11/22/19 10:15 Dose: 0.5 mg Documented by: Nebivolol (Bystolic -) 5 mg PO DAILY [facility] Last Admin: 11/22/19 09:34 Dose: 5 mg Documented by: Nystatin (Nystop Powder -) 1 applic TP DAILY [facility] Last Admin: 11/22/19 09:34 Dose: 1 applic Documented by: Pantoprazole Sodium (Protonix -) 40 mg PO DAILY [facility] Last Admin: 11/22/19 09:35 Dose: 40 mg Documented by: Sertraline HCl (Zoloft -) 50 mg PO DAILY [facility] Last Admin: 11/22/19 09:35 Dose: 50 mg Documented by: Spironolactone (Aldactone -) 25 mg PO DAILY [facility] Last Admin: 11/22/19 09:34 Dose: 25 mg Documented by: - Objective Vital Signs: Vital Signs Temperature 96.6 F L 11/23/19 08:34 Pulse Rate 63 11/23/19 08:34 Respiratory Rate 24 H 11/23/19 08:34 Blood Pressure 136/90 11/23/19 08:34 O2 Sat by Pulse Oximetry (%) 95 11/23/19 07:53 Constitutional: Yes: No Distress, Calm Neck: Yes: Supple Cardiovascular: Yes: Regular Rate and Rhythm, Murmur (2/6 SM) Respiratory: Yes: Diminished, On BiPap, SOB Gastrointestinal: Yes: Soft, Hypoactive Bowel Sounds Edema: Yes Edema: LLE: Trace, RLE: Trace Labs: CBC, BMP 11/22/19 10:13 11/22/19 10:13 INR, PTT INR 1.69 (0.83-1.09) H 11/16/19 12:00 - ....Imaging Chest X-ray: Report Reviewed (Increased CHF) EKG: Report Reviewed (Tele: SR) Problem List - Problems (1) Acute metabolic encephalopathy Code(s): G93.41 - METABOLIC ENCEPHALOPATHY (2) CHF exacerbation Code(s): I50.9 - HEART FAILURE, UNSPECIFIED Qualifiers: Heart failure type: diastolic Qualified Code(s): I50.33 - Acute on chronic diastolic (congestive) heart failure (3) Moderate to severe aortic stenosis Code(s): I35.0 - NONRHEUMATIC AORTIC (VALVE) STENOSIS (4) Acute on chronic diastolic (congestive) heart failure Code(s): I50.33 - ACUTE ON CHRONIC DIASTOLIC (CONGESTIVE) HEART FAILURE (5) Atrial fibrillation Code(s): I48.91 - UNSPECIFIED ATRIAL FIBRILLATION Qualifiers: Atrial fibrillation type: longstanding persistent Qualified Code(s): I48.11 - Longstanding persistent atrial fibrillation (6) COPD (chronic obstructive pulmonary disease) Code(s): J44.9 - CHRONIC OBSTRUCTIVE PULMONARY DISEASE, UNSPECIFIED Qualifiers: COPD type: unspecified COPD Qualified Code(s): J44.9 - Chronic obstructive pulmonary disease, unspecified (7) Chronic anticoagulation Code(s): Z79.01 - WOOD LAST MAKER (CURRENT) USE OF 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 (8) Diabetes mellitus Code(s): E11.9 - TYPE 2 DIABETES MELLITUS WITHOUT COMPLICATIONS Qualifiers: Diabetes mellitus type: type 2 Diabetes mellitus termite control representative insulin use: without skilled nursing use Diabetes mellitus complication status: without complication Qualified Code(s): E11.9 - Type 2 diabetes mellitus without complications (9) HTN (hypertension) Code(s): I10 - ESSENTIAL (PRIMARY) HYPERTENSION Qualifiers: Hypertension type: essential hypertension Qualified Code(s): I10 - Essential (primary) hypertension (10) Chronic kidney disease (CKD) Code(s): N18.9 - CHRONIC KIDNEY DISEASE, UNSPECIFIED Qualifiers: Chronic kidney disease stage: stage 2 (mild) Qualified Code(s): N18.2 - Chronic kidney disease, stage 2 (mild) (11) Epistaxis Code(s): R04.0 - EPISTAXIS Assessment/Plan 1. Acute on chronic LV diastolic failure, class II NYHA classification LV failure progressive 2. Epistaxis since resolved 3. Toxic metabolic encephelopathy resolving 4. Mod-severe , pulm HTN 5. Asthma, Chronic obstructive airway disease 6. Persistent atrial fibrillation with [id number] score of 7 on chronic A/C with DOAC/Eliquis 7. Diabetes mellitus 8. HTN 9. SARA/CKD 10. Anemia with h/o GI bleed PLAN: 1. Increased IV diuresis Lasix 80 bid and Aldactone 25 qd with close monitoring of diuretic response, renal function and electrolytes 2. Continue Bystolic 5 qd, Amlodipine 10 mg QD, Lipitor 40 mg QHS, Prinivil 10 mg QD with caution once renal function stabilizes 3. Off Eliquis due to nasal bleeding; resume when feasible 4. Bipap, BD, O2 as needed 5. Further evaluation of as outpatient including possible TAVR but previously declined
[2019-11-23] MEDS: FERROUS SO4 325 MG TABLET (FP) PO SCH (09:30)
[2019-11-23] MEDS: amLODIPine BESYLATE 10 MG TABLET (FP) PO SCH (09:30)
[2019-11-23] MEDS: NEBIVOLOL 5 MG TABLET (FP) PO SCH (09:30)
[2019-11-23] MEDS: SERTRALINE HCL 50 MG TABLET (FP) PO SCH (09:31)
[2019-11-23] MEDS: PANTOPRAZOLE 40 MG TABLET PO SCH (09:31)
[2019-11-23] MEDS: LISINOPRIL 10 MG TABLET (FP) PO SCH (09:31)
[2019-11-23] MEDS: SPIRONOLACTONE 25 MG TABLET PO SCH (09:32)
--- NOTE | 2019-11-23 11:52 | PN ---
Progress Note, Physician History of Present Illness: lethargic again on bipap - Current Medication List Current Medications: Active Medications Acetaminophen (Tylenol -) 650 mg PO Q6H PRN PRN Reason: PAIN LEVEL 6-10 Last Admin: 11/18/19 18:36 Dose: 650 mg Documented by: Albuterol/Ipratropium (Duoneb -) 1 amp NEB RQID PRN PRN Reason: SHORTNESS OF BREATH Last Admin: 11/23/19 08:50 Dose: 1 amp Documented by: Amlodipine Besylate (Norvasc -) 10 mg PO DAILY [facility] Last Admin: 11/23/19 09:30 Dose: Not Given Documented by: Ferrous Sulfate (Feosol -) 325 mg PO DAILY [facility] Last Admin: 11/23/19 09:30 Dose: Not Given Documented by: Furosemide (Lasix Injection -) 80 mg IVPUSH BID@0600,1400 [facility] Last Admin: 11/23/19 06:15 Dose: 80 mg Documented by: Insulin Aspart (Novolog Vial Sliding Scale -) 1 vial SQ [facility]; Protocol Last Admin: 11/23/19 06:14 Dose: 2 units Documented by: Lidocaine (Lidoderm Patch -) 1 patch TP DAILY [facility] Last Admin: 11/23/19 09:18 Dose: 1 patch Documented by: Lisinopril (Prinivil) 10 mg PO DAILY [facility] Last Admin: 11/23/19 09:31 Dose: Not Given Documented by: Lorazepam (Ativan Injection -) 0.5 mg IVPUSH BID PRN PRN Reason: ANXIETY Metoprolol Tartrate (Lopressor Injection -) 5 mg IVPUSH Q4H PRN PRN Reason: TACHYCARDIA Miscellaneous (Lidoderm Patch Removal) 1 each MC DAILY@2200 [facility] Last Admin: 11/22/19 21:15 Dose: Not Given Documented by: Morphine Sulfate (Morphine Sulfate) 0.5 mg IVPUSH Q8H PRN PRN Reason: PAIN LEVEL 7 - 10 Last Admin: 11/23/19 09:18 Dose: 0.5 mg Documented by: Nebivolol (Bystolic -) 5 mg PO DAILY [facility] Last Admin: 11/23/19 09:30 Dose: Not Given Documented by: Nystatin (Nystop Powder -) 1 applic TP DAILY [facility] Last Admin: 11/22/19 09:34 Dose: 1 applic Documented by: Pantoprazole Sodium (Protonix -) 40 mg PO DAILY [facility] Last Admin: 11/23/19 09:31 Dose: Not Given Documented by: Sertraline HCl (Zoloft -) 50 mg PO DAILY [facility] Last Admin: 11/23/19 09:31 Dose: Not Given Documented by: Spironolactone (Aldactone -) 25 mg PO DAILY [facility] Last Admin: 11/23/19 09:32 Dose: Not Given Documented by: - Objective Vital Signs: Vital Signs Temperature 96.6 F L 11/23/19 08:34 Pulse Rate 63 11/23/19 08:34 Respiratory Rate 24 H 11/23/19 08:34 Blood Pressure 136/90 11/23/19 08:34 O2 Sat by Pulse Oximetry (%) 95 11/23/19 07:53 Constitutional: Yes: No Distress, Calm HENT: Yes: Atraumatic, Normocephalic Cardiovascular: Yes: S1, S2 Respiratory: Yes: On BiPap, Poor Air Entry Gastrointestinal: Yes: Normal Bowel Sounds, Soft Musculoskeletal: Yes: WNL Extremities: Yes: WNL Neurological: Yes: Lethargy Psychiatric: Yes: Other Labs: INR, PTT INR 1.69 (0.83-1.09) H 11/16/19 12:00 Assessment/Plan Problem List - Problems (1) AMS (altered mental status) Code(s): R41.82 - ALTERED MENTAL STATUS, UNSPECIFIED Qualifiers: Altered mental status type: disorientation Qualified Code(s): R41.0 - Disorientation, unspecified (2) CHF exacerbation Code(s): I50.9 - HEART FAILURE, UNSPECIFIED Qualifiers: Heart failure type: unspecified Qualified Code(s): I50.9 - Heart failure, unspecified (3) Aortic stenosis, severe Code(s): I35.0 - NONRHEUMATIC AORTIC (VALVE) STENOSIS (4) CHF exacerbation Code(s): I50.9 - HEART FAILURE, UNSPECIFIED Qualifiers: Heart failure type: diastolic Qualified Code(s): I50.33 - Acute on chronic diastolic (congestive) heart failure (5) Anemia Code(s): D64.9 - ANEMIA, UNSPECIFIED Qualifiers: Anemia type: unspecified type Qualified Code(s): D64.9 - Anemia, unspecified (6) COPD (chronic obstructive pulmonary disease) Code(s): J44.9 - CHRONIC OBSTRUCTIVE PULMONARY DISEASE, UNSPECIFIED Qualifiers: COPD type: unspecified COPD Qualified Code(s): J44.9 - Chronic obstructive pulmonary disease, unspecified (7) Diabetes mellitus Code(s): E11.9 - TYPE 2 DIABETES MELLITUS WITHOUT COMPLICATIONS Qualifiers: Diabetes mellitus type: type 2 Diabetes mellitus baby formula mixer insulin use: without baby formula mixer use Diabetes mellitus complication status: without complication Qualified Code(s): E11.9 - Type 2 diabetes mellitus without complications (8) HTN (hypertension) Code(s): I10 - ESSENTIAL (PRIMARY) HYPERTENSION Qualifiers: Hypertension type: essential hypertension Qualified Code(s): I10 - Essential (primary) hypertension (9) Mitral valve regurgitation Code(s): I34.0 - NONRHEUMATIC MITRAL (VALVE) INSUFFICIENCY Qualifiers: Cardiac valve disease etiology: nonrheumatic Qualified Code(s): I34.0 - Nonrheumatic mitral (valve) insufficiency (10) Chronic kidney disease (CKD) Code(s): N18.9 - CHRONIC KIDNEY DISEASE, UNSPECIFIED Qualifiers: Chronic kidney disease stage: stage 2 (mild) Qualified Code(s): N18.2 - Chronic kidney disease, stage 2 (mild) (11) Epistaxis Code(s): R04.0 - EPISTAXIS 12 uti plan bipap resp treatment pul on board rest as per the team resp support
[2019-11-23] MEDS: NYSTATIN POWDER 100,000 UNITS/GM - 15 GM TOPICAL POWDER TP SCH (11:54)
[2019-11-23 11:55] LABS: BASO % 0.5 % (0-2.0); EOS % 0.4 % (0-4.5); HEMATOCRIT 31.3 % (32.4-45.2); HEMOGLOBIN 9.6 GM/dL (10.7-15.3); LYMPH % 4.8 % (8-40); MCH 26.2 pg (25.7-33.7); MCHC 30.7 g/dl (32.0-36.0); MEAN CELL VOLUME 85.4 fl (80-96); MEAN PLT VOLUME 9.2 fl (7.5-11.1); NEUT % 87.3 % (42.8-82.8); PLATELET COUNT 259 K/MM3 (134-434); RBC 3.67 M/mm3 (3.60-5.2); RDW 16.3 % (11.6-15.6); WHITE BLOOD COUNT 7.6 K/mm3 (4.0-10.0)
--- NOTE | 2019-11-23 11:56 | PN ---
Progress Note (short form) - Note Progress Note: PULMONARY Lethargic on BiPAP 100% FiO2. Vital Signs Period Temp Pulse Resp BP Sys/Mo Pulse Ox Last 24 Hr 96.6 F-98.3 F 63-70 20-24 125-148/51-90 90-95 Intake & Output 11/20/19 11/21/19 11/22/19 11/23/19 23:59 23:59 23:59 23:59 Intake Total 290 170 750 20 Output Total 1200 550 30 Balance 290 -1030 200 -10 Gen: lethargic on BiPAP Heart: RRR, +systolic murmur Lung: decreased breath sounds at the bases Abd: soft, nontender Ext: + edema Active Medications Acetaminophen (Tylenol -) 650 mg PO Q6H PRN PRN Reason: PAIN LEVEL 6-10 Last Admin: 11/18/19 18:36 Dose: 650 mg Documented by: Albuterol/Ipratropium (Duoneb -) 1 amp NEB RQID PRN PRN Reason: SHORTNESS OF BREATH Last Admin: 11/23/19 08:50 Dose: 1 amp Documented by: Amlodipine Besylate (Norvasc -) 10 mg PO DAILY [facility] Last Admin: 11/23/19 09:30 Dose: Not Given Documented by: Ferrous Sulfate (Feosol -) 325 mg PO DAILY [facility] Last Admin: 11/23/19 09:30 Dose: Not Given Documented by: Furosemide (Lasix Injection -) 80 mg IVPUSH BID@0600,1400 [facility] Last Admin: 11/23/19 06:15 Dose: 80 mg Documented by: Insulin Aspart (Novolog Vial Sliding Scale -) 1 vial SQ [facility]; Protocol Last Admin: 11/23/19 11:53 Dose: 2 units Documented by: Lidocaine (Lidoderm Patch -) 1 patch TP DAILY [facility] Last Admin: 11/23/19 09:18 Dose: 1 patch Documented by: Lisinopril (Prinivil) 10 mg PO DAILY [facility] Last Admin: 11/23/19 09:31 Dose: Not Given Documented by: Lorazepam (Ativan Injection -) 0.5 mg IVPUSH BID PRN PRN Reason: ANXIETY Metoprolol Tartrate (Lopressor Injection -) 5 mg IVPUSH Q4H PRN PRN Reason: TACHYCARDIA Miscellaneous (Lidoderm Patch Removal) 1 each MC DAILY@2200 [facility] Last Admin: 11/22/19 21:15 Dose: Not Given Documented by: Morphine Sulfate (Morphine Sulfate) 0.5 mg IVPUSH Q8H PRN PRN Reason: PAIN LEVEL 7 - 10 Last Admin: 11/23/19 09:18 Dose: 0.5 mg Documented by: Nebivolol (Bystolic -) 5 mg PO DAILY [facility] Last Admin: 11/23/19 09:30 Dose: Not Given Documented by: Nystatin (Nystop Powder -) 1 applic TP DAILY [facility] Last Admin: 11/23/19 11:54 Dose: 1 applic Documented by: Pantoprazole Sodium (Protonix -) 40 mg PO DAILY [facility] Last Admin: 11/23/19 09:31 Dose: Not Given Documented by: Sertraline HCl (Zoloft -) 50 mg PO DAILY [facility] Last Admin: 11/23/19 09:31 Dose: Not Given Documented by: Spironolactone (Aldactone -) 25 mg PO DAILY [facility] Last Admin: 11/23/19 09:32 Dose: Not Given Documented by: A/P Acute on Chronic Diastolic Heart Failure Aortic Stenosis Pulmonary HTN Atrial Fibrillation COPD Acute on Chronic Renal Failure HTN DM Anemia - continue lasix, aldactone - monitor urine output, creatinine - rate control - continue anticoagulation - O2 to keep SpO2 >90% - BiPAP as needed to assist in work of breathing - aspiration precautions - prognosis guarded
[2019-11-23 12:24] LABS: ALBUMIN 2.9 g/dl (3.4-5.0); BILIRUBIN,TOTAL 0.3 mg/dL (0.2-1); BLOOD UREA NITROGEN 76.7 mg/dL (7-18); CALCIUM 9.3 mg/dL (8.5-10.1); CREATININE 1.7 mg/dL (0.55-1.3); MAGNESIUM 2.5 mg/dL (1.8-2.4); POTASSIUM 4.4 mmol/L (3.5-5.1); TOT PROT 6.5 g/dl (6.4-8.2)
--- NOTE | 2019-11-23 12:32 | PN ---
Physical Exam: SUBJECTIVE: Patient seen and examined. more lethargic today. 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 Head Ct negative. Also noted to have a UTI, UC with + ecoli (on ceftriaxone-completed). ------- On 11/20/2019, patient noted to have tachypnea with accessory muscle use. placed on NRB. abg with elevated CO2, placed on bipap. patient continues to be lethargic. patient is now a dnr/dni. palliative care following. chest xray 11/20/2019: interval increase interstitial and airspace opacities/infiltrates bilaterally as well as atelectasis/consolidation of right lung base. Period Temp Pulse Resp BP Sys/Mo Pulse Ox Last 24 Hr 96.6 F-98.3 F 63-70 20-24 125-148/51-90 90-95 GENERAL: lethargic, arousable to name and tactile stimuli. accessory muscle use on bipap HEAD: Normal with no signs of trauma. EYES: PERRL, extraocular movements intact, sclera anicteric, conjunctiva clear. No ptosis. ENT: Ears normal, nares patent, oropharynx clear without exudates, moist mucous membranes. NECK: Trachea midline, full range of motion, supple. LUNGS: fine crackles at the bases HEART: irregular 70s-80s ABDOMEN: Soft, nontender, nondistended, normoactive bowel sounds, no guarding, no rebound EXTREMITIES: right leg contracted s/p hip surgery NEUROLOGICAL: lethargic Laboratory Results - last 24 hr 11/22/19 11/22/19 11/23/19 16:47 21:21 11:15 WBC 7.6 RBC 3.67 Hgb 9.6 L Hct 31.3 L MCV 85.4 MCH 26.2 MCHC 30.7 L RDW 16.3 H Plt Count 259 D MPV 9.2 Absolute Neuts (auto) 6.7 Neutrophils % 87.3 H Lymphocytes % 4.8 L Monocytes % 7.0 Eosinophils % 0.4 Basophils % 0.5 Nucleated RBC % 0 Sodium Potassium Chloride Carbon Dioxide Anion Gap BUN Creatinine Est GFR (CKD-EPI)AfAm Est GFR (CKD-EPI)NonAf POC Glucometer 116 192 Random Glucose Calcium Magnesium Total Bilirubin AST ALT Alkaline Phosphatase Total Protein Albumin 11/23/19 11/23/19 11:15 11:41 WBC RBC Hgb Hct MCV MCH MCHC RDW Plt Count MPV Absolute Neuts (auto) Neutrophils % Lymphocytes % Monocytes % Eosinophils % Basophils % Nucleated RBC % Sodium 138 Potassium 4.4 Chloride 90 L Carbon Dioxide 41 H Anion Gap 7 L BUN 76.7 H Creatinine 1.7 H Est GFR (CKD-EPI)AfAm 31.54 Est GFR (CKD-EPI)NonAf 27.22 POC Glucometer 152 Random Glucose 150 H Calcium 9.3 Magnesium 2.5 H Total Bilirubin 0.3 AST 17 ALT 14 Alkaline Phosphatase 198 H Total Protein 6.5 Albumin 2.9 L Active Medications Generic Name Dose Route Start Last Admin Trade Name Freq PRN Reason Stop Dose Admin Acetaminophen 650 mg 11/18/19 18:21 11/18/19 18:36 Tylenol - PO 650 mg Q6H PRN Administration PAIN LEVEL 6-10 Albuterol/Ipratropium 1 amp 11/17/19 21:02 11/23/19 08:50 Duoneb - NEB 1 amp RQID PRN Administration SHORTNESS OF BREATH Amlodipine Besylate 10 mg 11/17/19 10:00 11/23/19 09:30 Norvasc - PO Not Given DAILY PK Ferrous Sulfate 325 mg 11/17/19 10:00 11/23/19 09:30 Feosol - PO Not Given DAILY PK Furosemide 80 mg 11/22/19 10:39 11/23/19 06:15 Lasix Injection - IVPUSH 80 mg BID@0600,1400 PK Administration Insulin Aspart 1 vial 11/17/19 22:00 11/23/19 11:53 Novolog Vial Sliding Scale - SQ 2 units ACHS PK Administration Protocol Lidocaine 1 patch 11/18/19 18:30 11/23/19 09:18 Lidoderm Patch - TP 1 patch DAILY PK Administration Lisinopril 10 mg 11/17/19 10:00 11/23/19 09:31 Prinivil PO Not Given DAILY PK Lorazepam 0.5 mg 11/21/19 11:12 Ativan Injection - IVPUSH BID PRN ANXIETY Metoprolol Tartrate 5 mg 11/20/19 14:28 Lopressor Injection - IVPUSH Q4H PRN TACHYCARDIA Miscellaneous 1 each 11/18/19 22:00 11/22/19 21:15 Lidoderm Patch Removal MC Not Given DAILY@2200 PK Morphine Sulfate 0.5 mg 11/21/19 11:12 11/23/19 09:18 Morphine Sulfate IVPUSH 0.5 mg Q8H PRN Administration PAIN LEVEL 7 - 10 Nebivolol 5 mg 11/17/19 10:00 11/23/19 09:30 Bystolic - PO Not Given DAILY PK Nystatin 1 applic 11/17/19 21:15 11/23/19 11:54 Nystop Powder - TP 1 applic DAILY PK Administration Pantoprazole Sodium 40 mg 11/17/19 10:00 11/23/19 09:31 Protonix - PO Not Given DAILY PK Sertraline HCl 50 mg 11/17/19 10:00 11/23/19 09:31 Zoloft - PO Not Given DAILY PK Spironolactone 25 mg 11/18/19 15:00 11/23/19 09:32 Aldactone - PO Not Given DAILY PK ASSESSMENT/PLAN: Problem List - Problems (1) Respiratory failure with hypercapnia Assessment/Plan: placed on bipap patient is a dnr/dni ABG noted Code(s): J96.92 - RESPIRATORY FAILURE, UNSPECIFIED WITH HYPERCAPNIA (2) Acute on chronic diastolic (congestive) heart failure Assessment/Plan: elevated bnp 8K on admission, repeat bnp 13k now with worsening shortness of breath. 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 LLL pneumonia. completed ceftriaxone Code(s): J18.9 - PNEUMONIA, UNSPECIFIED ORGANISM (7) UTI (urinary tract infection) Assessment/Plan: completed ceftriaxone for urine ecoli Code(s): N39.0 - URINARY TRACT INFECTION, SITE NOT SPECIFIED (8) Hypertension Assessment/Plan: unable to tolerate PO, on lopressor 5mg iv prn Code(s): I10 - ESSENTIAL (PRIMARY) HYPERTENSION (9) DNR (do not resuscitate) Code(s): Z66 - DO NOT RESUSCITATE (10) DNI (do not intubate) Code(s): Z78.9 - OTHER SPECIFIED HEALTH STATUS (11) SARA (acute kidney injury) Assessment/Plan: monitor daily. renal consult if worsens Code(s): N17.9 - ACUTE KIDNEY FAILURE, UNSPECIFIED (12) DVT prophylaxis Assessment/Plan: no a/c secondary to epistaxis. SCDs ordered Code(s): Z29.9 - ENCOUNTER FOR PROPHYLACTIC MEASURES, UNSPECIFIED Visit type - Emergency Visit Emergency Visit: Yes ED Registration Date: 11/16/19 Care time: The patient presented to the Emergency Department on the above date and was hospitalized for further evaluation of their emergent condition. - New Patient This patient is new to me today: No - Critical Care Critical Care patient: No - Discharge Referral Referred to [facility] Med [facility] No
[2019-11-23] MEDS ORDERED: BISACODYL 10 MG SUPP.RECT PR ONE (15:56)
[2019-11-23] MEDS ORDERED: PT OWN MED DRAWER 7, Y5N ONE ×2 (18:23→22:38)
[2019-11-23] MEDS: LIDOCAINE PATCH REMOVAL MC SCH (22:22)
[2019-11-24] MEDS: FUROSEMIDE 40 MG/4 ML INJECTABLE VIAL IVPUSH SCH ×2 (05:59→14:46)
--- NOTE | 2019-11-24 06:43 | PN ---
Progress Note (short form) - Note Progress Note: Chief Complaint: Events noted, notes reviewed, complaining of persistent dyspnea currently on BiPAP, denies any orthponea or PND, denies any chest discomfort History of Present Illness: Seen and examined on telemetry. Events noted, notes reviewed, complaining of persistent dyspnea currently on BiPAP, denies any orthponea or PND, denies any chest discomfort Current Medications: Current Medications Generic Name Dose Route Start Last Admin Trade Name Freq PRN Reason Stop Dose Admin Acetaminophen 650 mg 11/18/19 18:21 11/24/19 09:06 Tylenol - PO 650 mg Q6H PRN Administration PAIN LEVEL 6-10 Albuterol/Ipratropium 1 amp 11/17/19 21:02 11/24/19 07:11 Duoneb - NEB 1 amp RQID PRN Administration SHORTNESS OF BREATH Amlodipine Besylate 10 mg 11/17/19 10:00 11/24/19 09:05 Norvasc - PO 10 mg DAILY PK Administration Ferrous Sulfate 325 mg 11/17/19 10:00 11/24/19 09:05 Feosol - PO 325 mg DAILY PK Administration Furosemide 80 mg 11/22/19 10:39 11/24/19 05:59 Lasix Injection - IVPUSH 80 mg BID@0600,1400 PK Administration Insulin Aspart 1 vial 11/17/19 22:00 11/24/19 06:47 Novolog Vial Sliding Scale - SQ 2 units ACHS PK Administration Protocol Lidocaine 1 patch 11/18/19 18:30 11/24/19 09:05 Lidoderm Patch - TP 1 patch DAILY PK Administration Lisinopril 10 mg 11/17/19 10:00 11/24/19 09:05 Prinivil PO 10 mg DAILY PK Administration Lorazepam 0.5 mg 11/21/19 11:12 Ativan Injection - IVPUSH BID PRN ANXIETY Metoprolol Tartrate 5 mg 11/20/19 14:28 Lopressor Injection - IVPUSH Q4H PRN TACHYCARDIA Miscellaneous 1 each 11/18/19 22:00 11/23/19 22:22 Lidoderm Patch Removal MC Not Given DAILY@2200 PK Morphine Sulfate 0.5 mg 11/21/19 11:12 11/23/19 09:18 Morphine Sulfate IVPUSH 0.5 mg Q8H PRN Administration PAIN LEVEL 7 - 10 Nebivolol 5 mg 11/17/19 10:00 11/24/19 09:04 Bystolic - PO 5 mg DAILY PK Administration Nystatin 1 applic 11/17/19 21:15 11/24/19 09:05 Nystop Powder - TP 1 applic DAILY PK Administration Pantoprazole Sodium 40 mg 11/17/19 10:00 11/24/19 09:05 Protonix - PO 40 mg DAILY PK Administration Polyethylene Glycol 17 gm 11/24/19 11:15 Miralax (For Daily Use) - PO BID PK Sertraline HCl 50 mg 11/17/19 10:00 11/24/19 09:05 Zoloft - PO 50 mg DAILY PK Administration Spironolactone 25 mg 11/18/19 15:00 11/24/19 09:04 Aldactone - PO 25 mg DAILY PK Administration Review of Systems Cardiovascular: As noted above Respiratory: reports: Cough but no Sputum Production Gastrointestinal: denies: Nausea, Vomiting, Diarrhea, Constipation or Abdominal Discomfort Musculoskeletal: No Symptoms Reported Endocrine: No Symptoms Reported - Objective Vital Signs: Last Vital Signs Temp Pulse Resp BP Pulse Ox 98.2 F 73 18 144/69 96 11/24/19 02:00 11/24/19 02:00 11/24/19 02:00 11/24/19 02:00 11/23/19 23:00 Intake & Output 11/21/19 11/22/19 11/23/19 11/24/19 23:59 23:59 23:59 23:59 Intake Total 170 750 60 Output Total 1200 550 580 Balance -1030 200 -520 Weight 160 lb Constitutional: No Distress Neck: Supple Negative JVD No Bruit Respiratory: Diminished Breath Sounds at the Bases Bilateral Scattered Rhonchi Cardiovascular: S1 S2 Irregularly Irregular Grade 2-3/6 [id number] Gastrointestinal: Soft Benign Normal Bowel Sounds Ext: Trace Edema Labs: CBC, BMP 11/23/19 11:15 11/23/19 11:15 Hepatic Panel Total Bilirubin 0.3 mg/dL (0.2-1) 11/23/19 11:15 AST 17 U/L (15-37) 11/23/19 11:15 ALT 14 U/L (13-61) 11/23/19 11:15 Alkaline Phosphatase 198 U/L (45-117) H 11/23/19 11:15 Albumin 2.9 g/dl (3.4-5.0) L 11/23/19 11:15 INR, PTT INR 1.69 (0.83-1.09) H 11/16/19 12:00 Assessment/Plan ASSESSMENT: 1. Acute hypoxic respiratory failure related to acute on chronic class I-II NYHA classification LV failure related to diastolic LV dysfunction (clinically resolving) 2. Acute on chronic exacerbation of chronic obstructive pulmonary disease (clinically resolving), 3. 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 Persistent atrial fibrillation with [id number] score of 7 on chronic A/C with DOAC's/Eliquis 5. Mitral valve regurgitation 6. Aortic valve stenosis moderate to severe in severity 7. Tricuspid valve regurgitation 8. Pulmonary HTN 9. HTN 10. Diabetes mellitus 11. Hypercholesterolemia 12. Toxic metabolic encephalopathy, resolving 13. Recurrent epistaxis, clinically resolved 14. Acute on CKD 15. Anemia, history of gastrointestinal bleed PLAN: 1. Continue Bystolic with caution and titrate as needed and as tolerated 2. Continue Amlodipine 3. Continue FLORENCIO inhibitors/Lisinopril with caution and close monitoring of renal function 4. Continue IV Lasix and Aldactone with caution and close monitoring of renal function 5. Lasix therapy to be administered on as-needed basis 6. Recommend resumption of Eliquis therapy unless it is absolutely contraindicated/resolved epistaxis 7. Bronchodilators as per the primary team 8. Supplemental oxygen/BiPAP utilization as per the pulmonary team 9. Further evaluation of as outpatient including possible TAVR- evaluation Maliha Blake.
[2019-11-24] MEDS: INSULIN SLIDING SCALE (NOVOLOG) 1 VIAL SQ SCH ×4 (06:47→22:48)
[2019-11-24] MEDS: ALBUTEROL SO4 2.5/IPRATROPIUM 0.5 INH SOL 3 ML VIAL.NEB. NEB PRN (07:11)
--- NOTE | 2019-11-24 07:25 | PN ---
Progress Note, Physician History of Present Illness: pulmonary more alert on bipap,less dyspneic - Current Medication List Current Medications: Active Medications Acetaminophen (Tylenol -) 650 mg PO Q6H PRN PRN Reason: PAIN LEVEL 6-10 Last Admin: 11/18/19 18:36 Dose: 650 mg Documented by: Albuterol/Ipratropium (Duoneb -) 1 amp NEB RQID PRN PRN Reason: SHORTNESS OF BREATH Last Admin: 11/24/19 07:11 Dose: 1 amp Documented by: Amlodipine Besylate (Norvasc -) 10 mg PO DAILY [facility] Last Admin: 11/23/19 09:30 Dose: Not Given Documented by: Ferrous Sulfate (Feosol -) 325 mg PO DAILY [facility] Last Admin: 11/23/19 09:30 Dose: Not Given Documented by: Furosemide (Lasix Injection -) 80 mg IVPUSH BID@0600,1400 [facility] Last Admin: 11/24/19 05:59 Dose: 80 mg Documented by: Insulin Aspart (Novolog Vial Sliding Scale -) 1 vial SQ [facility]; Protocol Last Admin: 11/24/19 06:47 Dose: 2 units Documented by: Lidocaine (Lidoderm Patch -) 1 patch TP DAILY [facility] Last Admin: 11/23/19 09:18 Dose: 1 patch Documented by: Lisinopril (Prinivil) 10 mg PO DAILY [facility] Last Admin: 11/23/19 09:31 Dose: Not Given Documented by: Lorazepam (Ativan Injection -) 0.5 mg IVPUSH BID PRN PRN Reason: ANXIETY Metoprolol Tartrate (Lopressor Injection -) 5 mg IVPUSH Q4H PRN PRN Reason: TACHYCARDIA Miscellaneous (Lidoderm Patch Removal) 1 each MC DAILY@2200 [facility] Last Admin: 11/23/19 22:22 Dose: Not Given Documented by: Morphine Sulfate (Morphine Sulfate) 0.5 mg IVPUSH Q8H PRN PRN Reason: PAIN LEVEL 7 - 10 Last Admin: 11/23/19 09:18 Dose: 0.5 mg Documented by: Nebivolol (Bystolic -) 5 mg PO DAILY [facility] Last Admin: 11/23/19 09:30 Dose: Not Given Documented by: Nystatin (Nystop Powder -) 1 applic TP DAILY [facility] Last Admin: 11/23/19 11:54 Dose: 1 applic Documented by: Pantoprazole Sodium (Protonix -) 40 mg PO DAILY [facility] Last Admin: 11/23/19 09:31 Dose: Not Given Documented by: Sertraline HCl (Zoloft -) 50 mg PO DAILY [facility] Last Admin: 11/23/19 09:31 Dose: Not Given Documented by: Spironolactone (Aldactone -) 25 mg PO DAILY [facility] Last Admin: 11/23/19 09:32 Dose: Not Given Documented by: - Objective Vital Signs: Vital Signs Temperature 98.1 F 11/24/19 06:00 Pulse Rate 88 11/24/19 06:00 Respiratory Rate 20 11/24/19 06:00 Blood Pressure 136/66 11/24/19 06:00 O2 Sat by Pulse Oximetry (%) 96 11/23/19 23:00 Constitutional: Yes: Well Nourished, Calm Eyes: Yes: WNL HENT: Yes: WNL Neck: Yes: WNL Cardiovascular: Yes: Pulse Irregular, S1, S2 Respiratory: Yes: On BiPap, Rhonchi (few scattered rhonchi) Gastrointestinal: Yes: Normal Bowel Sounds, Soft Extremities: Yes: WNL Edema: Yes Labs: Problem List - Problems (1) AMS (altered mental status) Code(s): R41.82 - ALTERED MENTAL STATUS, UNSPECIFIED Qualifiers: Altered mental status type: disorientation Qualified Code(s): R41.0 - Disorientation, unspecified (2) CHF exacerbation Code(s): I50.9 - HEART FAILURE, UNSPECIFIED Qualifiers: Heart failure type: diastolic Qualified Code(s): I50.33 - Acute on chronic diastolic (congestive) heart failure (3) Aortic stenosis, severe Code(s): I35.0 - NONRHEUMATIC AORTIC (VALVE) STENOSIS (4) CHF exacerbation Code(s): I50.9 - HEART FAILURE, UNSPECIFIED Qualifiers: Heart failure type: diastolic Qualified Code(s): I50.33 - Acute on chronic diastolic (congestive) heart failure (5) Anemia Code(s): D64.9 - ANEMIA, UNSPECIFIED Qualifiers: Anemia type: unspecified type Qualified Code(s): D64.9 - Anemia, unspecified (6) COPD (chronic obstructive pulmonary disease) Code(s): J44.9 - CHRONIC OBSTRUCTIVE PULMONARY DISEASE, UNSPECIFIED Qualifiers: COPD type: unspecified COPD Qualified Code(s): J44.9 - Chronic obstructive pulmonary disease, unspecified (7) Diabetes mellitus Code(s): E11.9 - TYPE 2 DIABETES MELLITUS WITHOUT COMPLICATIONS Qualifiers: Diabetes mellitus type: type 2 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 use Diabetes mellitus complication status: without complication Qualified Code(s): E11.9 - Type 2 diabetes mellitus without complications (8) HTN (hypertension) Code(s): I10 - ESSENTIAL (PRIMARY) HYPERTENSION Qualifiers: Hypertension type: essential hypertension Qualified Code(s): I10 - Essential (primary) hypertension (9) Mitral valve regurgitation Code(s): I34.0 - NONRHEUMATIC MITRAL (VALVE) INSUFFICIENCY Qualifiers: Cardiac valve disease etiology: nonrheumatic Qualified Code(s): I34.0 - Nonrheumatic mitral (valve) insufficiency (10) Chronic kidney disease (CKD) Code(s): N18.9 - CHRONIC KIDNEY DISEASE, UNSPECIFIED Qualifiers: Chronic kidney disease stage: stage 2 (mild) Qualified Code(s): N18.2 - Chronic kidney disease, stage 2 (mild) (11) Epistaxis Code(s): R04.0 - EPISTAXIS Assessment/Plan A/P Acute on Chronic Diastolic Heart Failure Aortic Stenosis Pulmonary HTN Atrial Fibrillation COPD Acute on Chronic Renal Failure HTN DM Anemia - lasix, aldactone - monitor urine output, creatinine - rate control - continue anticoagulation - O2 to keep SpO2 >90% - BiPAP as needed to assist in work of breathing - aspiration precautions - prognosis guarded DR PACHECO
--- NOTE | 2019-11-24 07:46 | PN ---
Progress Note, Physician Chief Complaint: Seen and examined in bed . DNR/DNI. Breathing appears comfortable on BiPap.C/o constipation. 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 Head Ct negative. Also noted to have a UTI, UC with + ecoli (on ceftriaxone-completed). ------- On 11/20/2019, patient noted to have tachypnea with accessory muscle use. placed on NRB. abg with elevated CO2, placed on bipap. patient continues to be lethargic. patient is now a dnr/dni. palliative care following. chest xray 11/20/2019: interval increase interstitial and airspace opacities/infiltrates bilaterally as well as atelectasis/consolidation of right lung base. covid status: negative as of 11/16/2019 - Current Medication List Current Medications: Active Medications Acetaminophen (Tylenol -) 650 mg PO Q6H PRN PRN Reason: PAIN LEVEL 6-10 Last Admin: 11/18/19 18:36 Dose: 650 mg Documented by: Albuterol/Ipratropium (Duoneb -) 1 amp NEB RQID PRN PRN Reason: SHORTNESS OF BREATH Last Admin: 11/24/19 07:11 Dose: 1 amp Documented by: Amlodipine Besylate (Norvasc -) 10 mg PO DAILY [facility] Last Admin: 11/23/19 09:30 Dose: Not Given Documented by: Ferrous Sulfate (Feosol -) 325 mg PO DAILY [facility] Last Admin: 11/23/19 09:30 Dose: Not Given Documented by: Furosemide (Lasix Injection -) 80 mg IVPUSH BID@0600,1400 [facility] Last Admin: 11/24/19 05:59 Dose: 80 mg Documented by: Insulin Aspart (Novolog Vial Sliding Scale -) 1 vial SQ [facility]; Protocol Last Admin: 11/24/19 06:47 Dose: 2 units Documented by: Lidocaine (Lidoderm Patch -) 1 patch TP DAILY [facility] Last Admin: 11/23/19 09:18 Dose: 1 patch Documented by: Lisinopril (Prinivil) 10 mg PO DAILY [facility] Last Admin: 11/23/19 09:31 Dose: Not Given Documented by: Lorazepam (Ativan Injection -) 0.5 mg IVPUSH BID PRN PRN Reason: ANXIETY Metoprolol Tartrate (Lopressor Injection -) 5 mg IVPUSH Q4H PRN PRN Reason: TACHYCARDIA Miscellaneous (Lidoderm Patch Removal) 1 each MC DAILY@2200 [facility] Last Admin: 11/23/19 22:22 Dose: Not Given Documented by: Morphine Sulfate (Morphine Sulfate) 0.5 mg IVPUSH Q8H PRN PRN Reason: PAIN LEVEL 7 - 10 Last Admin: 11/23/19 09:18 Dose: 0.5 mg Documented by: Nebivolol (Bystolic -) 5 mg PO DAILY [facility] Last Admin: 11/23/19 09:30 Dose: Not Given Documented by: Nystatin (Nystop Powder -) 1 applic TP DAILY [facility] Last Admin: 11/23/19 11:54 Dose: 1 applic Documented by: Pantoprazole Sodium (Protonix -) 40 mg PO DAILY [facility] Last Admin: 11/23/19 09:31 Dose: Not Given Documented by: Sertraline HCl (Zoloft -) 50 mg PO DAILY [facility] Last Admin: 11/23/19 09:31 Dose: Not Given Documented by: Spironolactone (Aldactone -) 25 mg PO DAILY [facility] Last Admin: 11/23/19 09:32 Dose: Not Given Documented by: - Objective Vital Signs: Vital Signs Temperature 98.1 F 11/24/19 06:00 Pulse Rate 88 11/24/19 06:00 Respiratory Rate 20 11/24/19 06:00 Blood Pressure 136/66 11/24/19 06:00 O2 Sat by Pulse Oximetry (%) 96 11/23/19 23:00 Constitutional: Yes: Calm, Mild Distress Eyes: Yes: WNL, Conjunctiva Clear HENT: Yes: WNL, Atraumatic, Normocephalic Neck: Yes: WNL, Supple, Trachea Midline Cardiovascular: Yes: WNL, Pulse Irregular Respiratory: Yes: Diminished, Rales (at bases), Other (on biPap) Gastrointestinal: Yes: Normal Bowel Sounds, Soft ...Rectal Exam: Yes: Deferred Genitourinary: Yes: Incontinence Breast(s): Yes: WNL Musculoskeletal: Yes: WNL Extremities: Yes: Other (right leg contracted s/p hip surgery) Edema: Yes Edema: LLE: 1+, RLE: 1+ Peripheral Pulses WNL: Yes Peripheral Pulses: Left Radial: 2+, Right Radial: 2+, Left Doralis Pedis: 2+, Right Dorsalis Pedis: 2+, Left Femoral: 2+, Right Femoral: 2+ Integumentary: Yes: Skin Tear (to left forearm) Neurological: Yes: Alert, Weakness ...Motor Strength: LLE, RLE (generalized weakness) Psychiatric: Yes: Alert Labs: CBC, BMP 11/23/19 11:15 11/23/19 11:15 INR, PTT INR 1.69 (0.83-1.09) H 11/16/19 12:00 Problem List - Problems (1) Prophylactic measure Assessment/Plan: FEN Fluids: poor PO intake Electrolytes: monitor & replete as needed Nutrition: soft/dysphagia diet DVT no chemical AC Dispo Maintain as inpatient DNR/DNI discharge planning Code(s): Z29.9 - ENCOUNTER FOR PROPHYLACTIC MEASURES, UNSPECIFIED (2) Palliative care patient Assessment/Plan: GOC discussed with daughter Laila with palliative care team as per converstation Laila will discuss with her sister Laura who is primary agent on HCP and lives with mom. Laila stating she is not sure goals at this point would be for hospice care. Code(s): Z51.5 - ENCOUNTER FOR PALLIATIVE CARE (3) Pulmonary hypertension Code(s): I27.20 - PULMONARY HYPERTENSION, UNSPECIFIED (4) CHF (congestive heart failure) Assessment/Plan: elevated bnp 8K on admission, repeat bnp 13k breathing improved on diuretucs/BiPap c/w lasix/aldactone Code(s): I50.9 - HEART FAILURE, UNSPECIFIED (5) SARA (acute kidney injury) Assessment/Plan: Cr. 1.7, stable avoid nephrotixic agents will continue to monitor and consult nephroplogy if continues to rise Code(s): N17.9 - ACUTE KIDNEY FAILURE, UNSPECIFIED (6) Acute metabolic encephalopathy Assessment/Plan: multifactorial-hypoxic, uremia, advanced age no acute pathology on imaging mental status improving supportive care Code(s): G93.41 - METABOLIC ENCEPHALOPATHY (7) DNI (do not intubate) Code(s): Z78.9 - OTHER SPECIFIED HEALTH STATUS (8) DNR (do not resuscitate) Code(s): Z66 - DO NOT RESUSCITATE (9) Pneumonia Assessment/Plan: chest xray 11/20/2019: interval increase interstitial and airspace opacities/infiltrates bilaterally as well as atelectasis/consolidation of right lung base monitor off abx monitor wbc Code(s): J18.9 - PNEUMONIA, UNSPECIFIED ORGANISM (10) Respiratory failure with hypercapnia Assessment/Plan: Supplemental O2 to maintain SPO2 >90% c/w BiPap pulmonary consultation appreciated Code(s): J96.92 - RESPIRATORY FAILURE, UNSPECIFIED WITH HYPERCAPNIA (11) GI bleed Assessment/Plan: no chemical AC Code(s): K92.2 - GASTROINTESTINAL HEMORRHAGE, UNSPECIFIED Qualifiers: GI bleed type/associated pathology: unspecified gastrointestinal hemorrhage type Qualified Code(s): K92.2 - Gastrointestinal hemorrhage, unspecified (12) Atrial fibrillation Assessment/Plan: c/w bystolic maintain on tele Code(s): I48.91 - UNSPECIFIED ATRIAL FIBRILLATION Qualifiers: Atrial fibrillation type: longstanding persistent Qualified Code(s): I48.11 - Longstanding persistent atrial fibrillation (13) COPD (chronic obstructive pulmonary disease) Assessment/Plan: c/w duonebs BiPap as needed Code(s): J44.9 - CHRONIC OBSTRUCTIVE PULMONARY DISEASE, UNSPECIFIED Qualifiers: COPD type: unspecified COPD Qualified Code(s): J44.9 - Chronic obstructive pulmonary disease, unspecified (14) Constipation Assessment/Plan: dulcolox DE PRn miralax daily Code(s): K59.00 - CONSTIPATION, UNSPECIFIED (15) Diabetes Assessment/Plan: BGM AC/HS with novolog sliding scale diabetic diet Code(s): E11.9 - TYPE 2 DIABETES MELLITUS WITHOUT COMPLICATIONS Visit type - Emergency Visit Emergency Visit: Yes ED Registration Date: 11/16/19 Care time: The patient presented to the Emergency Department on the above date and was hospitalized for further evaluation of their emergent condition. - New Patient This patient is new to me today: Yes Date on this admission: 11/24/19 - Critical Care Critical Care patient: No - Discharge Referral Referred to [facility] No
[2019-11-24] MEDS: SPIRONOLACTONE 25 MG TABLET PO SCH (09:04)
[2019-11-24] MEDS: NEBIVOLOL 5 MG TABLET (FP) PO SCH (09:04)
[2019-11-24] MEDS: PANTOPRAZOLE 40 MG TABLET PO SCH (09:05)
[2019-11-24] MEDS: FERROUS SO4 325 MG TABLET (FP) PO SCH (09:05)
[2019-11-24] MEDS: LISINOPRIL 10 MG TABLET (FP) PO SCH (09:05)
[2019-11-24] MEDS: SERTRALINE HCL 50 MG TABLET (FP) PO SCH (09:05)
[2019-11-24] MEDS: NYSTATIN POWDER 100,000 UNITS/GM - 15 GM TOPICAL POWDER TP SCH (09:05)
[2019-11-24] MEDS: amLODIPine BESYLATE 10 MG TABLET (FP) PO SCH (09:05)
[2019-11-24] MEDS: LIDOCAINE 5% TOPICAL PATCH TP SCH (09:05)
[2019-11-24] MEDS: ACETAMINOPHEN 325 MG TABLET (FP) PO PRN (09:06)
[2019-11-24] MEDS ORDERED: BISACODYL 10 MG SUPP.RECT PR ONE (11:08)
[2019-11-24 12:21] LABS: BASO % 0.6 % (0-2.0); EOS % 0.1 % (0-4.5); HEMATOCRIT 31.9 % (32.4-45.2); LYMPH % 2.8 % (8-40); MCH 26.7 pg (25.7-33.7); MCHC 31.4 g/dl (32.0-36.0); MEAN CELL VOLUME 85.2 fl (80-96); MEAN PLT VOLUME 9.5 fl (7.5-11.1); MONO % 7.8 % (3.8-10.2); NEUT % 88.7 % (42.8-82.8); PLATELET COUNT 286 K/MM3 (134-434); RBC 3.74 M/mm3 (3.60-5.2); RDW 16.5 % (11.6-15.6); WHITE BLOOD COUNT 10.2 K/mm3 (4.0-10.0)
[2019-11-24 12:50] LABS: ALBUMIN 2.9 g/dl (3.4-5.0); BILIRUBIN,TOTAL 0.5 mg/dL (0.2-1); BLOOD UREA NITROGEN 82.2 mg/dL (7-18); CALCIUM 9.1 mg/dL (8.5-10.1); CREATININE 1.7 mg/dL (0.55-1.3); MAGNESIUM 2.5 mg/dL (1.8-2.4); POTASSIUM 4.3 mmol/L (3.5-5.1); TOT PROT 6.6 g/dl (6.4-8.2)
--- NOTE | 2019-11-24 14:51 | PN ---
Progress Note, Physician History of Present Illness: mentally better requiring bipap - Current Medication List Current Medications: Active Medications Acetaminophen (Tylenol -) 650 mg PO Q6H PRN PRN Reason: PAIN LEVEL 6-10 Last Admin: 11/24/19 09:06 Dose: 650 mg Documented by: Albuterol/Ipratropium (Duoneb -) 1 amp NEB RQID PRN PRN Reason: SHORTNESS OF BREATH Last Admin: 11/24/19 07:11 Dose: 1 amp Documented by: Amlodipine Besylate (Norvasc -) 10 mg PO DAILY [facility] Last Admin: 11/24/19 09:05 Dose: 10 mg Documented by: Ferrous Sulfate (Feosol -) 325 mg PO DAILY [facility] Last Admin: 11/24/19 09:05 Dose: 325 mg Documented by: Furosemide (Lasix Injection -) 80 mg IVPUSH BID@0600,1400 [facility] Last Admin: 11/24/19 14:46 Dose: 80 mg Documented by: Insulin Aspart (Novolog Vial Sliding Scale -) 1 vial SQ [facility]; Protocol Last Admin: 11/24/19 11:39 Dose: 6 units Documented by: Lidocaine (Lidoderm Patch -) 1 patch TP DAILY [facility] Last Admin: 11/24/19 09:05 Dose: 1 patch Documented by: Lisinopril (Prinivil) 10 mg PO DAILY [facility] Last Admin: 11/24/19 09:05 Dose: 10 mg Documented by: Lorazepam (Ativan Injection -) 0.5 mg IVPUSH BID PRN PRN Reason: ANXIETY Metoprolol Tartrate (Lopressor Injection -) 5 mg IVPUSH Q4H PRN PRN Reason: TACHYCARDIA Miscellaneous (Lidoderm Patch Removal) 1 each MC DAILY@2200 [facility] Last Admin: 11/23/19 22:22 Dose: Not Given Documented by: Morphine Sulfate (Morphine Sulfate) 0.5 mg IVPUSH Q8H PRN PRN Reason: PAIN LEVEL 7 - 10 Last Admin: 11/23/19 09:18 Dose: 0.5 mg Documented by: Nebivolol (Bystolic -) 5 mg PO DAILY [facility] Last Admin: 11/24/19 09:04 Dose: 5 mg Documented by: Nystatin (Nystop Powder -) 1 applic TP DAILY [facility] Last Admin: 11/24/19 09:05 Dose: 1 applic Documented by: Pantoprazole Sodium (Protonix -) 40 mg PO DAILY [facility] Last Admin: 11/24/19 09:05 Dose: 40 mg Documented by: Polyethylene Glycol (Miralax (For Daily Use) -) 17 gm PO BID [facility] Sertraline HCl (Zoloft -) 50 mg PO DAILY [facility] Last Admin: 11/24/19 09:05 Dose: 50 mg Documented by: Spironolactone (Aldactone -) 25 mg PO DAILY [facility] Last Admin: 11/24/19 09:04 Dose: 25 mg Documented by: - Objective Vital Signs: Vital Signs Temperature 97.6 F 11/24/19 08:44 Pulse Rate 73 11/24/19 14:12 Respiratory Rate 20 11/24/19 14:12 Blood Pressure 139/76 11/24/19 14:12 O2 Sat by Pulse Oximetry (%) 96 11/24/19 10:00 Constitutional: Yes: No Distress, Calm Cardiovascular: Yes: S1, S2 Respiratory: Yes: Regular, On BiPap, Poor Air Entry Gastrointestinal: Yes: Normal Bowel Sounds, Soft Musculoskeletal: Yes: WNL Extremities: Yes: WNL Neurological: Yes: Alert, Oriented Psychiatric: Yes: Alert, Oriented Labs: CBC, BMP 11/24/19 11:48 11/24/19 06:00 INR, PTT INR 1.69 (0.83-1.09) H 11/16/19 12:00 Assessment/Plan Problem List - Problems (1) AMS (altered mental status) Code(s): R41.82 - ALTERED MENTAL STATUS, UNSPECIFIED Qualifiers: Altered mental status type: disorientation Qualified Code(s): R41.0 - Disorientation, unspecified (2) CHF exacerbation Code(s): I50.9 - HEART FAILURE, UNSPECIFIED Qualifiers: Heart failure type: unspecified Qualified Code(s): I50.9 - Heart failure, unspecified (3) Aortic stenosis, severe Code(s): I35.0 - NONRHEUMATIC AORTIC (VALVE) STENOSIS (4) CHF exacerbation Code(s): I50.9 - HEART FAILURE, UNSPECIFIED Qualifiers: Heart failure type: diastolic Qualified Code(s): I50.33 - Acute on chronic diastolic (congestive) heart failure (5) Anemia Code(s): D64.9 - ANEMIA, UNSPECIFIED Qualifiers: Anemia type: unspecified type Qualified Code(s): D64.9 - Anemia, unspecified (6) COPD (chronic obstructive pulmonary disease) Code(s): J44.9 - CHRONIC OBSTRUCTIVE PULMONARY DISEASE, UNSPECIFIED Qualifiers: COPD type: unspecified COPD Qualified Code(s): J44.9 - Chronic obstructive pulmonary disease, unspecified (7) Diabetes mellitus Code(s): E11.9 - TYPE 2 DIABETES MELLITUS WITHOUT COMPLICATIONS Qualifiers: Diabetes mellitus type: type 2 Diabetes mellitus skilled nursing insulin use: without skilled nursing use Diabetes mellitus complication status: without complication Qualified Code(s): E11.9 - Type 2 diabetes mellitus without complications (8) HTN (hypertension) Code(s): I10 - ESSENTIAL (PRIMARY) HYPERTENSION Qualifiers: Hypertension type: essential hypertension Qualified Code(s): I10 - Essential (primary) hypertension (9) Mitral valve regurgitation Code(s): I34.0 - NONRHEUMATIC MITRAL (VALVE) INSUFFICIENCY Qualifiers: Cardiac valve disease etiology: nonrheumatic Qualified Code(s): I34.0 - Nonrheumatic mitral (valve) insufficiency (10) Chronic kidney disease (CKD) Code(s): N18.9 - CHRONIC KIDNEY DISEASE, UNSPECIFIED Qualifiers: Chronic kidney disease stage: stage 2 (mild) Qualified Code(s): N18.2 - Chronic kidney disease, stage 2 (mild) (11) Epistaxis Code(s): R04.0 - EPISTAXIS 12 uti plan bipap resp treatment pul on board rest as per the team resp support
[2019-11-24] MEDS: POLYETHYLENE GLYCOL 3350 119 GM BTL PO SCH ×2 (17:06→22:49)
[2019-11-24] MEDS: LIDOCAINE PATCH REMOVAL MC SCH (22:44)
[2019-11-25] MEDS: FUROSEMIDE 40 MG/4 ML INJECTABLE VIAL IVPUSH SCH ×2 (06:17→14:24)
--- NOTE | 2019-11-25 07:50 | PN ---
Progress Note, Physician History of Present Illness: pulmonary poorly responsive on bipap,dyspneic - Current Medication List Current Medications: Active Medications Acetaminophen (Tylenol -) 650 mg PO Q6H PRN PRN Reason: PAIN LEVEL 6-10 Last Admin: 11/24/19 09:06 Dose: 650 mg Documented by: Albuterol/Ipratropium (Duoneb -) 1 amp NEB RQID PRN PRN Reason: SHORTNESS OF BREATH Last Admin: 11/24/19 07:11 Dose: 1 amp Documented by: Amlodipine Besylate (Norvasc -) 10 mg PO DAILY [facility] Last Admin: 11/24/19 09:05 Dose: 10 mg Documented by: Ferrous Sulfate (Feosol -) 325 mg PO DAILY [facility] Last Admin: 11/24/19 09:05 Dose: 325 mg Documented by: Furosemide (Lasix Injection -) 80 mg IVPUSH BID@0600,1400 [facility] Last Admin: 11/25/19 06:17 Dose: 80 mg Documented by: Hydrocortisone (Anusol 2.5% Hc Cream -) 1 applic [facility] Insulin Aspart (Novolog Vial Sliding Scale -) 1 vial SQ [facility]; Protocol Last Admin: 11/24/19 22:48 Dose: 6 units Documented by: Lidocaine (Lidoderm Patch -) 1 patch TP DAILY [facility] Last Admin: 11/24/19 09:05 Dose: 1 patch Documented by: Lisinopril (Prinivil) 10 mg PO DAILY [facility] Last Admin: 11/24/19 09:05 Dose: 10 mg Documented by: Lorazepam (Ativan Injection -) 0.5 mg IVPUSH BID PRN PRN Reason: ANXIETY Metoprolol Tartrate (Lopressor Injection -) 5 mg IVPUSH Q4H PRN PRN Reason: TACHYCARDIA Miscellaneous (Lidoderm Patch Removal) 1 each MC DAILY@2200 [facility] Last Admin: 11/24/19 22:44 Dose: 1 each Documented by: Morphine Sulfate (Morphine Sulfate) 0.5 mg IVPUSH Q8H PRN PRN Reason: PAIN LEVEL 7 - 10 Last Admin: 11/23/19 09:18 Dose: 0.5 mg Documented by: Nebivolol (Bystolic -) 5 mg PO DAILY [facility] Last Admin: 11/24/19 09:04 Dose: 5 mg Documented by: Nystatin (Nystop Powder -) 1 applic TP DAILY [facility] Last Admin: 11/24/19 09:05 Dose: 1 applic Documented by: Pantoprazole Sodium (Protonix -) 40 mg PO DAILY [facility] Last Admin: 11/24/19 09:05 Dose: 40 mg Documented by: Polyethylene Glycol (Miralax (For Daily Use) -) 17 gm PO BID [facility] Last Admin: 11/24/19 22:49 Dose: Not Given Documented by: Sertraline HCl (Zoloft -) 50 mg PO DAILY [facility] Last Admin: 11/24/19 09:05 Dose: 50 mg Documented by: Spironolactone (Aldactone -) 25 mg PO DAILY [facility] Last Admin: 11/24/19 09:04 Dose: 25 mg Documented by: - Objective Vital Signs: Vital Signs Temperature 97.6 F 11/25/19 06:00 Pulse Rate 77 11/25/19 06:00 Respiratory Rate 18 11/25/19 06:00 Blood Pressure 164/66 11/25/19 06:00 O2 Sat by Pulse Oximetry (%) 92 L 11/24/19 22:00 Constitutional: Yes: Well Nourished, Other (poorly responsive) Eyes: Yes: WNL HENT: Yes: WNL Neck: Yes: WNL Cardiovascular: Yes: Pulse Irregular, S1, S2 Respiratory: Yes: Rhonchi (scattered james rhonchi) Gastrointestinal: Yes: Normal Bowel Sounds, Soft Extremities: Yes: WNL Edema: Yes Labs: CBC, BMP 11/24/19 11:48 11/24/19 06:00 INR, PTT INR 1.69 (0.83-1.09) H 11/16/19 12:00 Problem List - Problems (1) AMS (altered mental status) Code(s): R41.82 - ALTERED MENTAL STATUS, UNSPECIFIED Qualifiers: Altered mental status type: disorientation Qualified Code(s): R41.0 - Disorientation, unspecified (2) CHF exacerbation Code(s): I50.9 - HEART FAILURE, UNSPECIFIED Qualifiers: Heart failure type: diastolic Qualified Code(s): I50.33 - Acute on chronic diastolic (congestive) heart failure (3) Aortic stenosis, severe Code(s): I35.0 - NONRHEUMATIC AORTIC (VALVE) STENOSIS (4) CHF exacerbation Code(s): I50.9 - HEART FAILURE, UNSPECIFIED Qualifiers: Heart failure type: diastolic Qualified Code(s): I50.33 - Acute on chronic diastolic (congestive) heart failure (5) Anemia Code(s): D64.9 - ANEMIA, UNSPECIFIED Qualifiers: Anemia type: unspecified type Qualified Code(s): D64.9 - Anemia, unspecified (6) COPD (chronic obstructive pulmonary disease) Code(s): J44.9 - CHRONIC OBSTRUCTIVE PULMONARY DISEASE, UNSPECIFIED Qualifiers: COPD type: unspecified COPD Qualified Code(s): J44.9 - Chronic obstructive pulmonary disease, unspecified (7) Diabetes mellitus Code(s): E11.9 - TYPE 2 DIABETES MELLITUS WITHOUT COMPLICATIONS Qualifiers: Diabetes mellitus type: type 2 Diabetes mellitus [facility] insulin use: without manager intermediate use Diabetes mellitus complication status: without com plication Qualified Code(s): E11.9 - Type 2 diabetes mellitus without com plications (8) HTN (hypertension) Code(s): I10 - ESSENTIAL (PRIMARY) HYPERTENSION Qualifiers: Hypertension type: essential hypertension Qualified Code(s): I10 - Essential (primary) hypertension (9) Mitral valve regurgitation Code(s): I34.0 - NONRHEUMATIC MITRAL (VALVE) INSUFFICIENCY Qualifiers: Cardiac valve disease etiology: nonrheumatic Qualified Code(s): I34.0 - Nonrheumatic mitral (valve) insufficiency (10) Chronic kidney disease (CKD) Code(s): N18.9 - CHRONIC KIDNEY DISEASE, UNSPECIFIED Qualifiers: Chronic kidney disease stage: stage 2 (mild) Qualified Code(s): N18.2 - Chronic kidney disease, stage 2 (mild) (11) Epistaxis Code(s): R04.0 - EPISTAXIS Assessment/Plan A/P Acute on Chronic Diastolic Heart Failure Aortic Stenosis Pulmonary HTN Atrial Fibrillation COPD Acute on Chronic Renal Failure HTN DM Anemia - lasix, aldactone - monitor urine output, creatinine - rate control - continue anticoagulation - O2 to keep SpO2 >90% - BiPAP as needed to assist in work of breathing - aspiration precautions - prognosis guarded check abg DR PACHECO
[2019-11-25] MEDS: INSULIN SLIDING SCALE (NOVOLOG) 1 VIAL SQ SCH ×4 (07:53→21:21)
--- NOTE | 2019-11-25 08:44 | PN ---
Progress Note, Physician Chief Complaint: Seen and examined in bed . DNR/DNI. Less responsive today. 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 Head Ct negative. Also noted to have a UTI, UC with + ecoli (on ceftriaxone-completed). ------- On 11/20/2019, patient noted to have tachypnea with accessory muscle use. placed on NRB. abg with elevated CO2, placed on bipap. patient continues to be lethargic. patient is now a dnr/dni. palliative care following. chest xray 11/20/2019: interval increase interstitial and airspace opacities/infiltrates bilaterally as well as atelectasis/consolidation of right lung base. covid status: negative as of 11/16/2019 - Current Medication List Current Medications: Active Medications Acetaminophen (Tylenol -) 650 mg PO Q6H PRN PRN Reason: PAIN LEVEL 6-10 Last Admin: 11/24/19 09:06 Dose: 650 mg Documented by: Albuterol/Ipratropium (Duoneb -) 1 amp NEB RQID PRN PRN Reason: SHORTNESS OF BREATH Last Admin: 11/24/19 07:11 Dose: 1 amp Documented by: Amlodipine Besylate (Norvasc -) 10 mg PO DAILY [facility] Last Admin: 11/24/19 09:05 Dose: 10 mg Documented by: Ferrous Sulfate (Feosol -) 325 mg PO DAILY [facility] Last Admin: 11/24/19 09:05 Dose: 325 mg Documented by: Furosemide (Lasix Injection -) 80 mg IVPUSH BID@0600,1400 [facility] Last Admin: 11/25/19 06:17 Dose: 80 mg Documented by: Hydrocortisone (Anusol 2.5% Hc Cream -) 1 applic RC HS [facility] Insulin Aspart (Novolog Vial Sliding Scale -) 1 vial SQ ACHS [facility]; Protocol Last Admin: 11/25/19 07:53 Dose: 2 units Documented by: Lidocaine (Lidoderm Patch -) 1 patch TP DAILY [facility] Last Admin: 11/24/19 09:05 Dose: 1 patch Documented by: Lisinopril (Prinivil) 10 mg PO DAILY [facility] Last Admin: 11/24/19 09:05 Dose: 10 mg Documented by: Lorazepam (Ativan Injection -) 0.5 mg IVPUSH BID PRN PRN Reason: ANXIETY Metoprolol Tartrate (Lopressor Injection -) 5 mg IVPUSH Q4H PRN PRN Reason: TACHYCARDIA Miscellaneous (Lidoderm Patch Removal) 1 each MC DAILY@2200 [facility] Last Admin: 11/24/19 22:44 Dose: 1 each Documented by: Morphine Sulfate (Morphine Sulfate) 0.5 mg IVPUSH Q8H PRN PRN Reason: PAIN LEVEL 7 - 10 Last Admin: 11/23/19 09:18 Dose: 0.5 mg Documented by: Nebivolol (Bystolic -) 5 mg PO DAILY [facility] Last Admin: 11/24/19 09:04 Dose: 5 mg Documented by: Nystatin (Nystop Powder -) 1 applic TP DAILY [facility] Last Admin: 11/24/19 09:05 Dose: 1 applic Documented by: Pantoprazole Sodium (Protonix -) 40 mg PO DAILY [facility] Last Admin: 11/24/19 09:05 Dose: 40 mg Documented by: Polyethylene Glycol (Miralax (For Daily Use) -) 17 gm PO BID [facility] Last Admin: 11/24/19 22:49 Dose: Not Given Documented by: Sertraline HCl (Zoloft -) 50 mg PO DAILY [facility] Last Admin: 11/24/19 09:05 Dose: 50 mg Documented by: Spironolactone (Aldactone -) 25 mg PO DAILY [facility] Last Admin: 11/24/19 09:04 Dose: 25 mg Documented by: - Objective Vital Signs: Vital Signs Temperature 97.6 F 11/25/19 06:00 Pulse Rate 77 11/25/19 06:00 Respiratory Rate 18 11/25/19 06:00 Blood Pressure 164/66 11/25/19 06:00 O2 Sat by Pulse Oximetry (%) 92 L 11/24/19 22:00 Additional Findings/Remarks: Constitutional: Yes: Calm, Mild Distress Eyes: Yes: WNL, Conjunctiva Clear HENT: Yes: WNL, Atraumatic, Normocephalic Neck: Yes: WNL, Supple, Trachea Midline Cardiovascular: Yes: WNL, Pulse Irregular Respiratory: Yes: Diminished, Rales (at bases), Other (on biPap) Gastrointestinal: Yes: Normal Bowel Sounds, Soft ...Rectal Exam: Yes: Deferred Genitourinary: Yes: Incontinence Breast(s): Yes: WNL Musculoskeletal: Yes: WNL Extremities: Yes: Other (right leg contracted s/p hip surgery) Edema: Yes Edema: LLE: 1+, RLE: 1+ Peripheral Pulses WNL: Yes Peripheral Pulses: Left Radial: 2+, Right Radial: 2+, Left Doralis Pedis: 2+, Right Dorsalis Pedis: 2+, Left Femoral: 2+, Right Femoral: 2+ Integumentary: Yes: Skin Tear (to left forearm) Neurological: Yes: Alert, Weakness ...Motor Strength: LLE, RLE (generalized weakness) Psychiatric: Yes: less responsive Labs: CBC, BMP 11/24/19 11:48 11/24/19 06:00 INR, PTT INR 1.69 (0.83-1.09) H 11/16/19 12:00 Problem List - Problems (1) Prophylactic measure Assessment/Plan: FEN Fluids: less responsive for PO-to start Clinimix Electrolytes: monitor & replete as needed Nutrition: soft/dysphagia diet when more awake DVT no chemical AC Dispo Maintain as inpatient DNR/DNI discharge planning Code(s): Z29.9 - ENCOUNTER FOR PROPHYLACTIC MEASURES, UNSPECIFIED (2) Palliative care patient Assessment/Plan: GOC discussed with ab Ulloa with palliative care team spoke with ab Murdock and wants full treatment minus intubation and resuscitation Code(s): Z51.5 - ENCOUNTER FOR PALLIATIVE CARE (3) Pulmonary hypertension Code(s): I27.20 - PULMONARY HYPERTENSION, UNSPECIFIED (4) CHF (congestive heart failure) Assessment/Plan: elevated bnp 8K on admission, repeat bnp 13k breathing improved on diuretucs/BiPap c/w lasix/aldactone remains on BiPap Code(s): I50.9 - HEART FAILURE, UNSPECIFIED (5) SARA (acute kidney injury) Assessment/Plan: Cr. 1.7, stable avoid nephrotixic agents will continue to monitor and consult nephroplogy if continues to rise Code(s): N17.9 - ACUTE KIDNEY FAILURE, UNSPECIFIED (6) Acute metabolic encephalopathy Assessment/Plan: multifactorial-hypoxic/hypercarbia, uremia, advanced age no acute pathology on imaging mental status improving supportive care Code(s): G93.41 - METABOLIC ENCEPHALOPATHY (7) DNI (do not intubate) Code(s): Z78.9 - OTHER SPECIFIED HEALTH STATUS (8) DNR (do not resuscitate) Code(s): Z66 - DO NOT RESUSCITATE (9) Pneumonia Assessment/Plan: chest xray 11/20/2019: interval increase interstitial and airspace opacities/infiltrates bilaterally as well as atelectasis/consolidation of right lung base monitor off abx monitor wbc Code(s): J18.9 - PNEUMONIA, UNSPECIFIED ORGANISM (10) Respiratory failure with hypercapnia Assessment/Plan: Supplemental O2 to maintain SPO2 >90% c/w BiPap pulmonary consultation appreciated Code(s): J96.92 - RESPIRATORY FAILURE, UNSPECIFIED WITH HYPERCAPNIA (11) GI bleed Assessment/Plan: no chemical AC Code(s): K92.2 - GASTROINTESTINAL HEMORRHAGE, UNSPECIFIED Qualifiers: GI bleed type/associated pathology: unspecified gastrointestinal hemorrhage type Qualified Code(s): K92.2 - Gastrointestinal hemorrhage, unspecified (12) Atrial fibrillation Assessment/Plan: c/w bystolic maintain on tele Code(s): I48.91 - UNSPECIFIED ATRIAL FIBRILLATION Qualifiers: Atrial fibrillation type: longstanding persistent Qualified Code(s): I48.11 - Longstanding persistent atrial fibrillation (13) COPD (chronic obstructive pulmonary disease) Assessment/Plan: c/w duonebs BiPap as needed Code(s): J44.9 - CHRONIC OBSTRUCTIVE PULMONARY DISEASE, UNSPECIFIED Qualifiers: COPD type: unspecified COPD Qualified Code(s): J44.9 - Chronic obstructive pulmonary disease, unspecified (14) Constipation Assessment/Plan: 2 BMs overnight dulcolox GA PRN miralax daily Code(s): K59.00 - CONSTIPATION, UNSPECIFIED (15) Diabetes Assessment/Plan: BGM AC/HS with novolog sliding scale diabetic diet Code(s): E11.9 - TYPE 2 DIABETES MELLITUS WITHOUT COMPLICATIONS (16) Poor fluid intake Assessment/Plan: Poor PO intake less responsive today start Clinimix Code(s): R63.8 - OTHER SYMPTOMS AND SIGNS CONCERNING FOOD AND FLUID INTAKE Visit type - Emergency Visit Emergency Visit: Yes ED Registration Date: 11/16/19 Care time: The patient presented to the Emergency Department on the above date and was hospitalized for further evaluation of their emergent condition. - New Patient This patient is new to me today: No - Critical Care Critical Care patient: No - Discharge Referral Referred to [facility] Med P.C.: No
--- NOTE | 2019-11-25 10:20 | PN ---
Progress Note, Physician History of Present Illness: Persistent dyspnea and lethargic on BiPAP. Palliative care consult pending. - Current Medication List Current Medications: Active Medications Acetaminophen (Tylenol -) 650 mg PO Q6H PRN PRN Reason: PAIN LEVEL 6-10 Last Admin: 11/24/19 09:06 Dose: 650 mg Documented by: Albuterol/Ipratropium (Duoneb -) 1 amp NEB RQID PRN PRN Reason: SHORTNESS OF BREATH Last Admin: 11/24/19 07:11 Dose: 1 amp Documented by: Amlodipine Besylate (Norvasc -) 10 mg PO DAILY [facility] Last Admin: 11/24/19 09:05 Dose: 10 mg Documented by: Ferrous Sulfate (Feosol -) 325 mg PO DAILY [facility] Last Admin: 11/24/19 09:05 Dose: 325 mg Documented by: Furosemide (Lasix Injection -) 80 mg IVPUSH BID@0600,1400 [facility] Last Admin: 11/25/19 06:17 Dose: 80 mg Documented by: Hydrocortisone (Anusol 2.5% Hc Cream -) 1 applic RC [facility] Insulin Aspart (Novolog Vial Sliding Scale -) 1 vial SQ [facility]; Protocol Last Admin: 11/25/19 07:53 Dose: 2 units Documented by: Lidocaine (Lidoderm Patch -) 1 patch TP DAILY [facility] Last Admin: 11/24/19 09:05 Dose: 1 patch Documented by: Lisinopril (Prinivil) 10 mg PO DAILY [facility] Last Admin: 11/24/19 09:05 Dose: 10 mg Documented by: Lorazepam (Ativan Injection -) 0.5 mg IVPUSH BID PRN PRN Reason: ANXIETY Metoprolol Tartrate (Lopressor Injection -) 5 mg IVPUSH Q4H PRN PRN Reason: TACHYCARDIA Miscellaneous (Lidoderm Patch Removal) 1 each MC DAILY@2200 [facility] Last Admin: 11/24/19 22:44 Dose: 1 each Documented by: Morphine Sulfate (Morphine Sulfate) 0.5 mg IVPUSH Q8H PRN PRN Reason: PAIN LEVEL 7 - 10 Last Admin: 11/23/19 09:18 Dose: 0.5 mg Documented by: Nebivolol (Bystolic -) 5 mg PO DAILY [facility] Last Admin: 11/24/19 09:04 Dose: 5 mg Documented by: Nystatin (Nystop Powder -) 1 applic TP DAILY [facility] Last Admin: 11/24/19 09:05 Dose: 1 applic Documented by: Pantoprazole Sodium (Protonix -) 40 mg PO DAILY [facility] Last Admin: 11/24/19 09:05 Dose: 40 mg Documented by: Polyethylene Glycol (Miralax (For Daily Use) -) 17 gm PO BID [facility] Last Admin: 11/24/19 22:49 Dose: Not Given Documented by: Sertraline HCl (Zoloft -) 50 mg PO DAILY [facility] Last Admin: 11/24/19 09:05 Dose: 50 mg Documented by: Spironolactone (Aldactone -) 25 mg PO DAILY [facility] Last Admin: 11/24/19 09:04 Dose: 25 mg Documented by: - Objective Vital Signs: Vital Signs Temperature 97.9 F 11/25/19 09:43 Pulse Rate 67 11/25/19 09:43 Respiratory Rate 18 11/25/19 09:43 Blood Pressure 174/77 H 11/25/19 09:43 O2 Sat by Pulse Oximetry (%) 92 L 11/24/19 22:00 Constitutional: Yes: No Distress, Calm Neck: Yes: Supple Cardiovascular: Yes: Pulse Irregular, Murmur Respiratory: Yes: Diminished, On BiPap Gastrointestinal: Yes: Soft, Hypoactive Bowel Sounds Edema: No Labs: CBC, BMP 11/24/19 11:48 11/24/19 06:00 INR, PTT INR 1.69 (0.83-1.09) H 11/16/19 12:00 - ....Imaging EKG: Report Reviewed (Tele: Afib) Problem List - Problems (1) Acute metabolic encephalopathy Code(s): G93.41 - METABOLIC ENCEPHALOPATHY (2) CHF exacerbation Code(s): I50.9 - HEART FAILURE, UNSPECIFIED Qualifiers: Heart failure type: diastolic Qualified Code(s): I50.33 - Acute on chronic diastolic (congestive) heart failure (3) Moderate to severe aortic stenosis Code(s): I35.0 - NONRHEUMATIC AORTIC (VALVE) STENOSIS (4) Acute on chronic diastolic (congestive) heart failure Code(s): I50.33 - ACUTE ON CHRONIC DIASTOLIC (CONGESTIVE) HEART FAILURE (5) Atrial fibrillation Code(s): I48.91 - UNSPECIFIED ATRIAL FIBRILLATION Qualifiers: Atrial fibrillation type: longstanding persistent Qualified Code(s): I48.11 - Longstanding persistent atrial fibrillation (6) COPD (chronic obstructive pulmonary disease) Code(s): J44.9 - CHRONIC OBSTRUCTIVE PULMONARY DISEASE, UNSPECIFIED Qualifiers: COPD type: unspecified COPD Qualified Code(s): J44.9 - Chronic obstructive pulmonary disease, unspecified (7) Chronic anticoagulation Code(s): Z79.01 - JAIL (CURRENT) USE OF 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 (8) Diabetes mellitus Code(s): E11.9 - TYPE 2 DIABETES MELLITUS WITHOUT COMPLICATIONS Qualifiers: Diabetes mellitus type: type 2 Diabetes mellitus retirement insulin use: without retirement use Diabetes mellitus complication status: without complication Qualified Code(s): E11.9 - Type 2 diabetes mellitus without complications (9) HTN (hypertension) Code(s): I10 - ESSENTIAL (PRIMARY) HYPERTENSION Qualifiers: Hypertension type: essential hypertension Qualified Code(s): I10 - Essential (primary) hypertension (10) Chronic kidney disease (CKD) Code(s): N18.9 - CHRONIC KIDNEY DISEASE, UNSPECIFIED Qualifiers: Chronic kidney disease stage: stage 2 (mild) Qualified Code(s): N18.2 - Chronic kidney disease, stage 2 (mild) (11) Epistaxis Code(s): R04.0 - EPISTAXIS Assessment/Plan 1. Acute on chronic LV diastolic failure, class II NYHA classification LV failure 2. Epistaxis since resolved 3. Toxic metabolic encephelopathy resolving 4. Mod-severe , pulm HTN 5. Asthma, Chronic obstructive airway disease 6. Persistent atrial fibrillation with [id number] score of 7 on chronic A/C with DOAC/Eliquis 7. Diabetes mellitus 8. HTN 9. Acute on CKD 10. Anemia with h/o GI bleed PLAN: 1. IV diuresis with Lasix 80 bid and Aldactone 25 qd with monitoring of diuretic response, renal function and electrolytes 2. Continue Bystolic 5 qd, Amlodipine 10 mg QD, Lipitor 40 mg QHS, Prinivil 10 mg QD with caution once renal function stabilizes 3. Off Eliquis due to nasal bleeding; resume when feasible 4. Bipap, BD, O2 as needed, f/u abg 5. Agree with palliative care consult
[2019-11-25] MEDS: SPIRONOLACTONE 25 MG TABLET PO SCH (10:33)
[2019-11-25] MEDS: NEBIVOLOL 5 MG TABLET (FP) PO SCH (10:33)
[2019-11-25] MEDS: FERROUS SO4 325 MG TABLET (FP) PO SCH (10:35)
[2019-11-25] MEDS: POLYETHYLENE GLYCOL 3350 119 GM BTL PO SCH ×2 (10:36→21:21)
[2019-11-25] MEDS: amLODIPine BESYLATE 10 MG TABLET (FP) PO SCH (10:37)
[2019-11-25] MEDS: LISINOPRIL 10 MG TABLET (FP) PO SCH (10:38)
[2019-11-25] MEDS: NYSTATIN POWDER 100,000 UNITS/GM - 15 GM TOPICAL POWDER TP SCH (10:38)
[2019-11-25] MEDS: PANTOPRAZOLE 40 MG TABLET PO SCH (10:38)
[2019-11-25] MEDS: SERTRALINE HCL 50 MG TABLET (FP) PO SCH (10:39)
[2019-11-25] MEDS: LIDOCAINE 5% TOPICAL PATCH TP SCH (10:41)
[2019-11-25 12:33] LABS: BASO % 0.4 % (0-2.0); EOS % 0.1 % (0-4.5); HEMATOCRIT 34.5 % (32.4-45.2); HEMOGLOBIN 10.6 GM/dL (10.7-15.3); LYMPH % 3.5 % (8-40); MCH 26.7 pg (25.7-33.7); MCHC 30.8 g/dl (32.0-36.0); MEAN CELL VOLUME 86.4 fl (80-96); MONO % 7.3 % (3.8-10.2); NEUT % 88.7 % (42.8-82.8); PLATELET COUNT 274 K/MM3 (134-434); RBC 3.99 M/mm3 (3.60-5.2); RDW 16.6 % (11.6-15.6); WHITE BLOOD COUNT 9.4 K/mm3 (4.0-10.0)
[2019-11-25 13:00] LABS: BILIRUBIN,TOTAL 0.7 mg/dL (0.2-1); BLOOD UREA NITROGEN 92.2 mg/dL (7-18); CALCIUM 9.6 mg/dL (8.5-10.1); MAGNESIUM 2.7 mg/dL (1.8-2.4); POTASSIUM 4.5 mmol/L (3.5-5.1); TOT PROT 6.7 g/dl (6.4-8.2)
[2019-11-25 13:01] LABS: CREATININE 1.7 mg/dL (0.55-1.3)
--- NOTE | 2019-11-25 14:15 | PN ---
Progress Note, Physician - Current Medication List Current Medications: Active Medications Acetaminophen (Tylenol -) 650 mg PO Q6H PRN PRN Reason: PAIN LEVEL 6-10 Last Admin: 11/24/19 09:06 Dose: 650 mg Documented by: Albuterol/Ipratropium (Duoneb -) 1 amp NEB RQID PRN PRN Reason: SHORTNESS OF BREATH Last Admin: 11/24/19 07:11 Dose: 1 amp Documented by: Amlodipine Besylate (Norvasc -) 10 mg PO DAILY [facility] Last Admin: 11/25/19 10:37 Dose: Not Given Documented by: Ferrous Sulfate (Feosol -) 325 mg PO DAILY [facility] Last Admin: 11/25/19 10:35 Dose: Not Given Documented by: Furosemide (Lasix Injection -) 80 mg IVPUSH BID@0600,1400 [facility] Last Admin: 11/25/19 06:17 Dose: 80 mg Documented by: Hydrocortisone (Anusol 2.5% Hc Cream -) 1 applic RC [facility] Insulin Aspart (Novolog Vial Sliding Scale -) 1 vial SQ [facility]; Protocol Last Admin: 11/25/19 11:41 Dose: Not Given Documented by: Lidocaine (Lidoderm Patch -) 1 patch TP DAILY [facility] Last Admin: 11/25/19 10:41 Dose: 1 patch Documented by: Lisinopril (Prinivil) 10 mg PO DAILY [facility] Last Admin: 11/25/19 10:38 Dose: Not Given Documented by: Lorazepam (Ativan Injection -) 0.5 mg IVPUSH BID PRN PRN Reason: ANXIETY Metoprolol Tartrate (Lopressor Injection -) 5 mg IVPUSH Q4H PRN PRN Reason: TACHYCARDIA Miscellaneous (Lidoderm Patch Removal) 1 each MC DAILY@2200 [facility] Last Admin: 11/24/19 22:44 Dose: 1 each Documented by: Morphine Sulfate (Morphine Sulfate) 0.5 mg IVPUSH Q8H PRN PRN Reason: PAIN LEVEL 7 - 10 Last Admin: 11/23/19 09:18 Dose: 0.5 mg Documented by: Nebivolol (Bystolic -) 5 mg PO DAILY [facility] Last Admin: 11/25/19 10:33 Dose: Not Given Documented by: Nystatin (Nystop Powder -) 1 applic TP DAILY [facility] Last Admin: 07/01/20 10:38 Dose: 1 applic Documented by: Pantoprazole Sodium (Protonix -) 40 mg PO DAILY [facility] Last Admin: 11/25/19 10:38 Dose: Not Given Documented by: Polyethylene Glycol (Miralax (For Daily Use) -) 17 gm PO BID [facility] Last Admin: 11/25/19 10:36 Dose: Not Given Documented by: Sertraline HCl (Zoloft -) 50 mg PO DAILY [facility] Last Admin: 11/25/19 10:39 Dose: Not Given Documented by: Spironolactone (Aldactone -) 25 mg PO DAILY [facility] Last Admin: 11/25/19 10:33 Dose: Not Given Documented by: - Objective Vital Signs: Vital Signs Temperature 97.9 F 11/25/19 09:43 Pulse Rate 67 11/25/19 09:43 Respiratory Rate 18 11/25/19 09:43 Blood Pressure 174/77 H 11/25/19 09:43 O2 Sat by Pulse Oximetry (%) 92 L 11/24/19 22:00 Labs: CBC, BMP 11/25/19 11:45 11/25/19 11:45 INR, PTT INR 1.69 (0.83-1.09) H 11/16/19 12:00
[2019-11-25] MEDS ORDERED: AMINO ACIDS 4.25%/D5W 1,000 ML IV SCH (15:45)
[2019-11-25] MEDS ORDERED: WITCH HAZEL 50% (TUCKS) 40 PAD/JAR PAD TP PRN (16:17)
[2019-11-25] MEDS: LIDOCAINE PATCH REMOVAL MC SCH (21:22)
[2019-11-25] MEDS: MORPHINE SULFATE 2 MG/ML VIAL IVPUSH PRN (21:24)
[2019-11-25] MEDS ORDERED: HYDROCORTISONE 2.5% TOPICAL CREAM 30 GM TUBE RC SCH (22:00)
[2019-11-25 22:43] VITALS: BP 147/61; PULSE 84; TEMP 97.4
--- NOTE | 2019-11-26 00:16 | PN ---
Progress Note (short form) - Note Progress Note: LIDIA Paulson Alerted eight section blower team after patient was found to be unresponsive. Patient was unresponsive to painful stimuli, pupils fixed & non-reactive. Patient had no spontaneous breathing, no heart sounds, or breath sounds, no carotid or femoral pulses present. Time of pronounced at 23:15 11/25/2019. Family notified by myself Grievance services offered to family Body to be released to home of family's choice
== END 2019-11-25 23:15 | disposition expired | DRG 291 ==
LOC: JER 11:32 → JERBED 14:54 → J4S 20:34
PROVIDERS: ADMIT Internal Medicine; ATTEND Nurse Practitioner Acute Care
DX: I13.0 Hypertensive heart and chronic kidney disease with heart failure and stage 1 through stage 4 chronic kidney disease, or unspecified chronic kidney disease (principal); J18.9 Pneumonia, unspecified organism; G93.41 Metabolic encephalopathy; I50.33 Acute on chronic diastolic (congestive) heart failure; J96.92 Respiratory failure, unspecified with hypercapnia; J98.11 Atelectasis; N39.0 Urinary tract infection, site not specified; N17.9 Acute kidney failure, unspecified; I48.11 Longstanding persistent atrial fibrillation; I27.20 Pulmonary hypertension, unspecified; J44.9 Chronic obstructive pulmonary disease, unspecified; J45.909 Unspecified asthma, uncomplicated; R41.82 Altered mental status, unspecified; I25.10 Atherosclerotic heart disease of native coronary artery without angina pectoris; N18.2 Chronic kidney disease, stage 2 (mild); E11.22 Type 2 diabetes mellitus with diabetic chronic kidney disease; I08.3 Combined rheumatic disorders of mitral, aortic and tricuspid valves; F41.8 Other specified anxiety disorders; E04.1 Nontoxic single thyroid nodule; E66.9 Obesity, unspecified; Z68.30 Body mass index [BMI] 30.0-30.9, adult; D64.9 Anemia, unspecified; B96.20 Unspecified Escherichia coli [E. coli] as the cause of diseases classified elsewhere; R63.8 Other symptoms and signs concerning food and fluid intake; K59.00 Constipation, unspecified; E78.00 Pure hypercholesterolemia, unspecified; Z96.642 Presence of left artificial hip joint; Z51.5 Encounter for palliative care; Z85.828 Personal history of other malignant neoplasm of skin; Z86.73 Personal history of transient ischemic attack (TIA), and cerebral infarction without residual deficits; Z99.81 Dependence on supplemental oxygen; Z66 Do not resuscitate
CPT/HCPCS: 36415; 36600; 70450-TC; 71045-TC-FY; 80053; 81003; 82803; 82962; 83036; 83540; 83550; 83735; 83880; 84484; 85025; 85610; 87040; 87086; 87186; 93005; 93010; 93306-TC; 94640; 94660; 97161-GP; 99285-25; J1756; U0003